=== PATIENT | male | born 1945 | race Caucasian/White ===

== ENCOUNTER → 2019-02-08 00:01 | Outpatient (RCR) | payer MEDICARE, MEDICAID, SELFPAY | LOC: ONCMED 01-20 06:07 | PROVIDERS: Family Provider Internal Medicine; Visit Provider Specialist | DX: C79.51 Secondary malignant neoplasm of bone (principal); C61 Malignant neoplasm of prostate; C73 Malignant neoplasm of thyroid gland; M54.6 Pain in thoracic spine; G89.3 Neoplasm related pain (acute) (chronic); D72.819 Decreased white blood cell count, unspecified; D69.6 Thrombocytopenia, unspecified; R10.32 Left lower quadrant pain; E89.0 Postprocedural hypothyroidism; Z92.3 Personal history of irradiation; Z79.818 Long term (current) use of other agents affecting estrogen receptors and estrogen levels; Z79.899 Other long term (current) drug therapy; Z90.79 Acquired absence of other genital organ(s) ==

== ENCOUNTER 2019-02-24 06:16 | Outpatient (RCR) | payer MEDICARE, MEDICAID, SELFPAY ==
--- NOTE | 2019-02-16 08:55 | ONCRAD TMN_ITS ---
Radiation Oncology Weekly Treatment Management Patient: Charlie Jacobs MR#: [id number] : 1945> Age: 73> Sex: Male Dictated by: Dr. Durga Corral Date of Service: 02/15/2019 Referring Physician(s) : Daniel Monahan Primary Diagnosis: C79.51 - Secondary malignant neoplasm of bone, Diagnosed 06/02/2018 (Active) C61 - Malignant neoplasm of prostate, Diagnosed 05/13/2006 (Active) Radiotherapy to date: Course: T10 Spine, Treatment Site: T10 Spine, Ref. ID: [id number] Spine, Energy: 15X/6X, Dose/Fx (cGy): 300, #Fx: 8 / 10, Dose Correction (cGy): 0, Total Dose (cGy): 2,400, Start Date: 02/03/2019, Elapsed Days: 12 Current Complaints/Interval History: Constitutional Complains of lack of appetite, mild fatigue and weight loss of 7.5 lbs. since last OTV on 02/08/19. Denies odynophagia, dysphagia, fever and night sweats. Respiratory Complains of cough which is chronic related to COPD. Musculoskeletal The pain in his back has resolved Current Medications: Advair Diskus, albuterol Sulfate, alfuzosin HCl ER, aspirin, atorvastatin Calcium, bicalutamide, bicalutamide, bolsom, cetirizine HCl, cyclobenzaprine HCl, esomeprazole Magnesium, hYDROcodone-Acetaminophen, ipratropium-Albuterol, ketoconazole, levothyroxine Sodium, lisinopril, metFORMIN HCl, metoprolol Succinate ER, montelukast Sodium, nitroglycerin, ondansetron, proAir HFA, probiotic Digestive Support, xgeva, zetia, zoladex. Allergies: Vancomycin HCl. Vital Signs: Performed on 02/15/2019 2:08 PM BMI - 26.123 kg/m2 (high), Height - 75.00 in, Weight - 209.0 lbs, Temperature - 98.2 f, Pulse - 78, Respiration - 20, O2 Sat - 97 %, Pain - 0 and BP - 139/ 89 mm(hg). Physical Exam: Appears stable, no skin erythema or desquamation. Performance Status: 2 - Ambulatory/capable of all self-care, unable to perform any work activities. Up and about more than 50% of waking hours. (ECOG) Lab: Test performed on 09/21/2018 8:20 AM Potassium - 5.3 mmol/l (high), Glucose - 142 mg/dl (high), Calcium - 8.5 mg/dl (low), Test performed on 01/20/2019 10:10 AM WBC - 1.8 10 3/ul (low), RBC - 3.99 10 6/ul (low), HCT - 37.4 % (low), MPV - 11.6 fl (high), Neutrophils - 0.9 10 3/ul (low), Lymphocytes - 0.5 10 3/ul (low) and PSA - 28.80 ng/ml (high). Imaging: No new diagnostic imaging was performed since the last weekly treatment visit. All radiation therapy related imaging (including but not limited to kV generated images) was reviewed. Appropriate changes, if any, were made to assure accurate target localization. Impression/Plan: Tolerating treatment well with good response ??? back pain resolved. Continue treatment as planned. CPT: 05935 Signed by: Dr. Durga Corral>02/16/2019 8:55:08 AM <<Signature on File>>
[2019-02-24] MEDS: denosumab 120 mg SDV SUBCUT (08:30)
== END 2019-03-11 23:59 | disposition home or self-care (01) ==
LOC: ONCMED 06:16
PROVIDERS: Family Provider Internal Medicine; PCP Internal Medicine; Visit Provider Internal Medicine Hematology & Oncology
DX: Z51.0 Encounter for antineoplastic radiation therapy (principal); C79.51 Secondary malignant neoplasm of bone; C61 Malignant neoplasm of prostate; Z79.899 Other long term (current) drug therapy; J44.9 Chronic obstructive pulmonary disease, unspecified; Z79.891 Long term (current) use of opiate analgesic; Z79.818 Long term (current) use of other agents affecting estrogen receptors and estrogen levels
CPT/HCPCS: 77336; 77387; 77412; 77427; 96372; G6002; J0897

== ENCOUNTER 2019-04-06 05:40 | Outpatient (RCR) | payer MEDICARE, MEDICAID, SELFPAY ==
[2019-03-16 09:42] LABS: Basophils % 0.6 %; Eosinophils # 0.1 10^3/uL (0.0-0.8); Hematocrit 37.5 % (42.0-52.0); Hemoglobin 12.5 g/dL (11.7-16.6); Lymphocytes # 0.3 10^3/uL (0.8-4.8); Lymphocytes % 17.7 %; Mean Corpuscular HGB Conc 33.3 g/dL (30.0-36.0); Mean Corpuscular Hemoglobin 31.6 pg (28.0-34.0); Mean Corpuscular Volume 94.7 fL (80-94); Mean Platelet Volume 10.3 fL (7.4-10.4); Monocytes # 0.3 10^3/uL (0.2-0.9); Monocytes % 17.7 %; Neutrophils % 60.4 %; Nucleated Red Blood Cells % 0 %; Platelet Count 124 10^3/cmm (130-400); Red Blood Count 3.96 10^6/uL (4.1-5.3); Red Cell Distribution Width 12.9 % (12.1-15.1); White Blood Count 1.6 10^3/uL (4.0-10.0)
[2019-03-16 10:19] LABS: Alanine Aminotransferase 13 U/L (0-41); Albumin Level 3.8 g/dL (3.5-5.2); Alkaline Phosphatase 75 IU/L (40-130); Anion Gap 12.3 (5-19); Aspartate Amino Transferase 15 U/L (0-40); Blood Urea Nitrogen 12 mg/dL (8-23); Calcium 9.2 mg/dL (8.5-10.5); Carbon Dioxide 28 mmol/L (22-29); Chloride 103 mmol/L (98-107); Free T4 Free Thyroxine 2.38 ng/dL (0.82-1.77); Globulin 3.6 g/dL (1.3-4.6); Glucose 106 mg/dL (65-115); Potassium 4.3 mmol/L (3.5-5.1); Sodium 139 mmol/L (136-145); Thyroid Stimulating Hormone 0.01 uIU/mL (0.27-4.20); Total Bilirubin 0.5 mg/dL (0.15-1.2); Total Protein 7.4 g/dL (6.6-8.7)
[2019-03-22 09:28] LABS: Thyroglobulin Level 0.5 ng/mL
[2019-03-25 09:33] LABS: Prostate Specific Antigen 44.14 ng/mL (0-4)
[2019-03-25] MEDS: lidocaine 1% INJ 20 mL INJECTION (11:28)
[2019-03-25] MEDS: goserelin acetate 10.8 mg Implant IM (11:39)
[2019-03-25] MEDS: denosumab 120 mg SDV SUBCUT (11:41)
--- NOTE | 2019-03-25 13:17 | ONC FU_ITS ---
Dr. Monahan follow up note Patient: Charlie Jacobs Unit #: [id number]: 1945 Dicatated By: Daniel Monahan M.D.Date of Visit:Mar 25, 2019 Onc Med Follow-up/Prog Note History of Present Illness: Mr. 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 At that time, his PSA was 7.1 and left sided nodule biopsies showed 6 out of 12 cores positive for 3+3/3+4 [employer] with 20-60% involvement. He received external beam radiation therapy which he completed in March 2007. Follow-up PSA level showed good response but start increasing and peak prior to initiation of hormonal therapy was 6.1, patient underwent rebiopsy on 09/14/2009 which showed suspicious pathology but not diagnostic. Mr Jacobs was started on LHRH agonist in December 2009 with 2 weeks of Casodex. He had excellent response. PSA was undetectable till January 2012 thereafter slow rise e.g. 0.27 on 08/05/2012 and 2 in May 2013, 7 in November 2013 and 8.4 in March 2015. Bicalutamide was added. In September 2015 and later stopped after increasing PSA again. In April 2017 bilateral scrotal orchiectomy was done. But PSA continued to rise in January 2018 was around 19 and in April 2018,gone up to 39.58. At that time, he started on Casodex 50 mg by mouth daily and CT scan of abdomen pelvis was done on 04/25/2018 which showed no pelvic lymphadenopathy but nonspecific multifocal osseous sclerotic foci; descending sigmoid colon diverticulosis with the descending sigmoid colon junction short segment diverticulitis patient was treated with antibiotics. Zoladex 10.8 mg was started on 06/01/2018 In the meantime, patient developed mass in his right neck and further investigation led to the diagnosis of thyroid cancer patient underwent thyroidectomy with lymph node dissection as per patient cancer was involving lymph nodes s/p radioactive iodine treatment in early June in [facility]. Mr. Jacobs was seen in the emergency room on 09/07/2018 for low back pain. He apparently been having back pain for 2 weeks. It was described as intermittent dull and sharp pain sometimes radiating to the left hip. It has gotten progressively worse. The pain medication was only partly relieving it. He did have a CT of the lumbar spine on 09/07/2018. It showed progressive sclerotic metastatic disease along the posterior margin of the right L1 vertebral body, the superior endplates of L3 and L4, left L3 pedestal, sclerotic focus involving the right anterior aspect of the L5 body and sclerotic focus along the lateral margin of the right iliac bone. He was referred to Dr. Corral for consideration of palliative radiation therapy. Dr. Corral did see him the same day on 09/07/2018. And did recommend palliative radiation to the lower back to control the metastatic disease in relieve pain. He was also started on Decadron 4 mg every 6 hours for 7 days in the emergency room on 09/07/2018. Received radiation therapy to spine from 09/13/2018 through 10/01/2018 and to T10 spine from 02/03/2019 through 02/17/2019. tolerating Zoladex/Casodex/Xgeva llMRI scan of spine done on 01/24/2019 showed blastic metastatic disease involving left seventh rib origin and left T10 pedicle, lamina and transverse process correlating with abnormal activity seen on bone scan from 06/01/2018 Small vertebral body lesion suspicious for metastatic disease at T1 and T9. The T9 lesion increased in size. Posterior disc bulging within annular fissure at T10-T11. MRI lumbar spine showed metastatic disease involving multiple lumbar vertebra and multiple level disc bulging and facet joint and ligamentum flavum hypertrophy resulting in the mild central stenosis at L2-L3. And moderate stenosis at L3-L4 and L4-and 5. Encroachment of respective bilateral L3, L4 and L5 lateral recess Mild hypertrophic facet joint encroachments of right L3 and right L4 neural foramina. Came for follow-up, feeling much better today, more energetic, no nausea or vomiting no fever no chills but still has some insomnia and anxiety and restlessness. No new bony pains. Occasionally hot flashes otherwise tolerating Zoladex/Casodex/Xgeva well. Medications: Advair Diskus 1 Puff(s) (of 100-50 mcg/dose) Aerosol Powder, Breath Activated Inhalation b.i.d. PRN, Albuterol Sulfate 1 puff(s) (of (2.5 mg/3ml) 0.083%) Nebulization solution Inhalation four times a day, Alfuzosin HCl ER 1 Tablet (of 10 mg) Tablet SR 24 HR Oral at bedtime, Aspirin 1 Tablet (of 81 mg) Oral daily, Atorvastatin Calcium 1 Tablet (of 80 mg) Oral daily, Belsomra 1 Tablet (of 20 mg) Oral at bedtime PRN, Bicalutamide 1 Tablet (of 50 mg) Oral daily, bolsom 1 Capsule (of 15 mg) Oral daily, Cetirizine HCl 1 Tablet (of 10 mg) Oral daily, Cyclobenzaprine HCl 0.5 - 1 Tablet (of 10 mg) Oral t.i.d. PRN, Esomeprazole Magnesium 1 Capsule (of 40 mg) Capsule Delayed Release Oral daily, Ipratropium-Albuterol 1 puff(s) (of 0.5-2.5 (3) mg/3ml) Solution Inhalation q 4 hours PRN, Ketoconazole (2 %) Cream Topical b.i.d., Levothyroxine Sodium 1 Tablet (of 200 mcg) Tablet Oral daily, metFORMIN HCl 1 Tablet (of 1000 mg) Oral daily, Metoprolol Succinate ER 1 Tablet (of 25 mg) Tablet SR 24 HR Oral daily, Montelukast Sodium 1 Tablet (of 10 mg) Oral daily, Nitroglycerin 1 Tablet (of 0.4 mg) Tablet, sublingual Sublingual PRN, Ondansetron 1 (4 mg) Tablet Dispersable Oral q 8 hours PRN, ProAir HFA 1 puff(s) (of 108 (90 base) mcg/act) Aerosol, solution Inhalation q 4 hours PRN, Probiotic Digestive Support 1 Capsule Oral daily, Xgeva 1 Subcutaneous q 30 days, Zetia 1 Tablet (of 10 mg) Oral daily, Zoladex Subcutaneous q 12 weeks Allergies: Vancomycin HCl Review of Systems: Constitutional - Appetite and weight are stable. No fever, chills, hot flashes or night sweats. Energy level is fair, ENMT - Positive for sinus congestion. No mouth sores. No sore throat or difficulty swallowing, Hematologic/Lymphatic - No abnormal bruising or bleeding, Respiratory - Positive for shortness of breath. No cough. No pleuritic pain or hemoptysis, Cardiovascular - No angina pain. No palpitations, Gastrointestinal - Pt denies nausea. No heartburn or acid reflux. No diarrhea. No constipation. No blood in the stool or black stools, Musculoskeletal - Pt reports chronic significant back pain, Neurologic - No headache. Positive for dizziness. Pt reports numbness in feet, Psychiatric - No anxiety or depression. No insomnia. Vital Signs: Performed on Mar 25, 2019 09:57 Height - 75.00 in Weight - 210.2 lbs (HIGH) BSA - 2.24 sq.m BMI - 26.27 Temperature - 97.5 F (LOW) Pulse - 97 /min Respiration - 18 /min BP - 128/85 mm(hg) O2 Sat - 96 % Pain - 0 Performance Status: 0 - Fully active, able to carry on all predisease activities without restrictions. (ECOG) Physical Examination: ENMT - No oral exudates, ulcers, masses, thrush or mucositis. Oropharynx clear. Tongue normal, Respiratory - Lungs are clear to auscultation without rhonchi or wheezing, Cardiovascular - Regular rate and rhythm of heart, Abdomen - Non-tender, non-distended, Good bowel sounds. No guarding or rebound tenderness. No pulsatile masses, Extremities - no edema. Lab/Imaging: Test performed on Mar 16, 2019 09:25 Sodium 139 mmol/L TSH 0.01 uIU/mL Potassium 4.3 mmol/L T4, Free 2.38 ng/dL Chloride 103 mmol/L CO2 28 mmol/L Anion Gap 12.3 BUN 12 mg/dL Creatinine 0.8 mg/dL Cr Clearance (Est) 111.3300 mL/min Glucose 106 mg/dL Calcium 9.2 mg/dL Protein, Total 7.4 g/dL Albumin 3.8 g/dL Globulin 3.6 g/dL Bilirubin, Total 0.5 mg/dL ALT (SGPT) 13 U/L AST (SGOT) 15 U/L Alkaline Phosphatase 75 IU/L WBC 1.6 10 3/uL RBC 3.96 10 6/uL HGB 12.5 g/dL HCT 37.5 % MCV 94.7 fL MCH 31.6 pg MCHC 33.3 g/dL RDW 12.9 % Platelet Count 124 10 3/cmm MPV 10.3 fL Neutrophils 1.0 10 3/uL Lymphocytes 0.3 10 3/uL Monocytes 0.3 10 3/uL Eosinophils 0.1 10 3/uL Basophils 0.0 10 3/uL Neutrophil % 60.4 % Lymphocyte % 17.7 % Monocyte % 17.7 % Eosinophil % 3.0 % Basophils % 0.6 % Test performed on Jan 20, 2019 10:10 CBC Slide Review SLIDE REVIEW PERFORM SLIDE REVIEW AGREES WITH AUTOMATED RESULTS ST PSA 28.80 ng/mL Impression: Biochemical recurrence, CT scan of abdomen pelvis done on 04/25/2018 showed sclerotic lesions in the pelvic bones no pelvic lymphadenopathy or abnormal mass. History of prostrate cancer initially diagnosed in 2006 at that time his PSA was 7.1 and left-sided nodule biopsy showed 6 out of 12 cores positive for 3+3/3+ for [employer] with 20-60% involvement status post external beam radiation therapy completed in March 2007 Follow-up PSA showed excellent response till 2009 when PSA started going up underwent rebiopsy of prostate on 09/14/2009 which was nondiagnostic but suspicious for malignancy. Started on LHRH agonist in December 2009 2 weeks of Casodex, excellent response PSA become undetectable still January 2012 with slow rise thereafter e.g. 0.27 on 08/05/2012, 2 in May 2013, 7 in November 2013, 8.4 in March 2015 bicalutamide was admitted in September 2015 later stopped after PSA continued to go up, subsequently underwent bilateral scrotal orchiectomy in April 2017 PSA continued to rise around 20 on 01/28/2018 for the gone up to 39.58 in April 2018, at that time Casodex 50 mg by mouth was started and patient was referred to medical oncology clinic Zoladex 10.8 mg every 3 months started on 06/01/2018 Bone scan done on 06/01/2018 showed L3 and L4 vertebral body increased activity corresponding to the prior CT sclerosis. Left T10 and T7 lateral vertebral body or facet increase activity you from prior exam done in December 2006,. New right lateral posterior ninth rib focus of increased activity. did see Mr. Jacobs in August 2018 at which time Mr. Jacobs was having moderate to severe distress with progressive lower back pain. He was sent to the emergency room for evaluation for possible metastatic disease or prolapse/collapsed vertebra. His PSA at that time was 34.24 and his testosterone was 19.9. New right sixth and eighth anterior lateral rib focus of increased activity. Recently diagnosed with thyroid cancer status post thyroidectomy with lymph node dissection now radioactive iodine therapy was under consideration as of June 2018. Mr. Jacobs was seen in the emergency room on 09/07/2018 for low back pain. He apparently been having back pain for 2 weeks. It was described as intermittent dull and sharp pain sometimes radiating to the left hip. It has gotten progressively worse. The pain medication was only partly relieving it. He did have a CT of the lumbar spine on 09/07/2018. It showed progressive sclerotic metastatic disease along the posterior margin of the right L1 vertebral body, the superior endplates of L3 and L4, left L3 pedestal, sclerotic focus involving the right anterior aspect of the L5 body and sclerotic focus along the lateral margin of the right iliac bone. He was referred to Dr. Corral for consideration of palliative radiation therapy. Dr. Corral did see him the same day on 09/07/2018. And did recommend palliative radiation to the lower back to control the metastatic disease in relieve pain. He was also started on Decadron 4 mg every 6 hours for 7 days in the emergency room on 09/07/2018. s/p radiation for pain relief due to metastatic bone disease. He started radiation on 09/13/2018. He states his pain is resolved Plan: Discussed with patient regarding his labs from 03/16/2019 white blood count 1.6 hemoglobin 12.5 hematocrit 37.5 platelets 124,000 ANC 1000 CMP within normal limit , TSH 0.01 T4 2 0.38 and PSA 44.14 compared to 28.80 on 01/20/2019 Clinically, patient doing well with no new signs symptoms except restlessness, insomnia and he is on Synthroid 200 ???g by mouth daily for history of thyroid cancer, his follow-up lab shows extremely suppressed TSH, case was discussed with his endocrinology in [place] their plan was to keep TSH super suppressed for posterior as patient is on high-dose Synthroid since February 2018 now goal is to keep TSH between 0.4 to 0.1 His endocrinology will call and adjust the dose to keep TSH between 0.4-0.1. As far as prostrate cancer is concern, he is on Zoladex/Casodex and his PSA is fluctuating, now gone up to 44.14 compared to 28.80 in January 2019 and it was 37.10 on 12/21/2018. At this point we will consider adding Zytiga/prednisone and then monitor his PSA and disease status. Patient will take Zytiga 250 mg every morning with low-fat breakfast and prednisone 5 mg by mouth twice a day. In the meantime we'll proceed with the 3 monthly dose of Zoladex and monthly Xgeva. Patient return to clinic in 1 week with CBC CMP and PSA. All the side effect possible benefits associated with Zytiga/prednisone discussed in detail further teaching will be done by chemotherapy nurse. Moderate leukopenia/neutropenia etiology unclear could be underlying myelodysplasia or radioactive iodine toxicity or thyroid supplement. We will continue to monitor hopefully with the dose reduction of thyroid supplement white blood count may improve if not we'll consider bone marrow evaluation. Signed By: Daniel oMnahan M.D. <<Signature on File>>
[2019-04-06 10:31] LABS: Basophils % 0.4 %; Eosinophils # 0.1 10^3/uL (0.0-0.8); Hematocrit 39.3 % (42.0-52.0); Lymphocytes # 0.4 10^3/uL (0.8-4.8); Lymphocytes % 16.5 %; Mean Corpuscular HGB Conc 33.1 g/dL (30.0-36.0); Mean Corpuscular Hemoglobin 30.8 pg (28.0-34.0); Mean Corpuscular Volume 93.1 fL (80-94); Mean Platelet Volume 10.6 fL (7.4-10.4); Monocytes # 0.4 10^3/uL (0.2-0.9); Monocytes % 15.4 %; Neutrophils # 1.7 10^3/uL (1.8-7.7); Neutrophils % 65.3 %; Nucleated Red Blood Cells % 0 %; Platelet Count 148 10^3/cmm (130-400); Red Blood Count 4.22 10^6/uL (4.1-5.3); Red Cell Distribution Width 13.8 % (12.1-15.1); White Blood Count 2.5 10^3/uL (4.0-10.0)
[2019-04-06 10:59] LABS: Prostate Specific Antigen 54.97 ng/mL (0-4)
[2019-04-06 11:11] LABS: Alanine Aminotransferase 21 U/L (0-41); Albumin Level 4.2 g/dL (3.5-5.2); Alkaline Phosphatase 79 IU/L (40-130); Anion Gap 14.9 (5-19); Aspartate Amino Transferase 15 U/L (0-40); Blood Urea Nitrogen 15 mg/dL (8-23); Calcium 9.5 mg/dL (8.5-10.5); Carbon Dioxide 27 mmol/L (22-29); Chloride 104 mmol/L (98-107); Globulin 3.2 g/dL (1.3-4.6); Glucose 111 mg/dL (65-115); Potassium 3.9 mmol/L (3.5-5.1); Sodium 142 mmol/L (136-145); Total Bilirubin 0.4 mg/dL (0.15-1.2); Total Protein 7.4 g/dL (6.6-8.7)
--- NOTE | 2019-04-10 19:58 | ONC FU_ITS ---
[facility]uel[facility] Patient Note Patient: Charlie Jacobs Unit #: [id number]: 1945 Dictated By: Rico IniguezDate of Visit: Apr 06, 2019 Onc MED Follow-Up/Prog Note Chief Complaint: Prostate cancer History of Present Illness: Mr. Jacobs is a 73-year-old gentleman with history of prostate cancer initially diagnosed in December 2006. At that time, his PSA was 7.1 and left sided nodule biopsies showed 6 out of 12 cores positive for 3+3/3+4 POOL LIFEGUARD with 20-60% involvement. He received external beam radiation therapy which he completed in March 2007. Follow-up PSA level showed good response but start increasing and peak prior to initiation of hormonal therapy was 6.1, patient underwent rebiopsy on 09/14/2009 which showed suspicious pathology but not diagnostic. Mr Jacobs was started on LHRH agonist in December 2009 with 2 weeks of Casodex. He had excellent response. PSA was undetectable till January 2012 thereafter slow rise e.g. 0.27 on 08/05/2012 and 2 in May 2013, 7 in November 2013 and 8.4 in March 2015. Bicalutamide was added. In September 2015 and later stopped after increasing PSA again. In April 2017 bilateral scrotal orchiectomy was done. His PSA continued to rise and in January 2018 was around 19 and in April 2018 it had gone up to 39.58. At that time, he started on Casodex 50 mg by mouth daily and CT scan of abdomen pelvis was done on 04/25/2018 which showed no pelvic lymphadenopathy but nonspecific multifocal osseous sclerotic foci; descending sigmoid colon diverticulosis with the descending sigmoid colon junction short segment diverticulitis patient was treated with antibiotics. Zoladex 10.8 mg was started on 06/01/2018. In the meantime, Mr Jacobs developed a mass in the right side of his neck and further investigation led to the diagnosis of thyroid cancer. He underwent thyroidectomy with lymph node dissection- as per patient, cancer was involving lymph nodes. s/p radioactive iodine treatment in early June in [facility]. Mr. Jacobs was seen in the emergency room on 09/07/2018 for low back pain. He apparently had been having back pain for 2 weeks. It was described as intermittent dull and sharp pain sometimes radiating to the left hip. It has gotten progressively worse. The pain medication was only partly relieving it. He did have a CT of the lumbar spine on 09/07/2018. It showed progressive sclerotic metastatic disease along the posterior margin of the right L1 vertebral body, the superior endplates of L3 and L4, left L3 pedestal, sclerotic focus involving the right anterior aspect of the L5 body and sclerotic focus along the lateral margin of the right iliac bone. He was referred to Dr. Corral for consideration of palliative radiation therapy. Dr. Corral did see him the same day on 09/07/2018 and did recommend palliative radiation to the lower back to control the metastatic disease and relieve pain. He was also started on Decadron 4 mg every 6 hours for 7 days in the emergency room on 09/07/2018. Mr Jacobs received radiation therapy to the spine He received 3000 cGy total dose to the SPINE GTV30 starting 09/13/2018 and ending 10/01/2018. He then received treatment to T10 spine, ref ID: [id number] Spine to a total dose of 3000 cGy starting 02/03/2019 and ending on 02/17/2019. He has had an excellent response to the radiation with his back pain resolved. He has been on denosumab since June 10, 2018 per our chart. He continues with Zoladex with his last dose being given on March 25, 2019. He also received denosumab at that time as well. Mr. Jacobs is here today to begin further treatment for his disease progression. He has had significant elevation of his PSA on March 25, 2019 it was 44. On January 20, [address] Monahan has recommended that he pursue treatment with Zytiga/prednisone and continue the every 3-month dose of Zoladex and monthly denosumab. He states overall he is doing well. He has no new complaints. He denies any new pain. He has been eating well. He denies any fever or chills. He denies mouth sores, sore throat or difficulty swallowing. He states his bowels and bladder are normal for him. He denies any symptoms or signs of being sick. He is relatively active around the house. His ECOG is 1. Past Medical History: Chronic obstructive pulmonary disease Diverticulitis Hypertension Thyroid cancer Type II diabetes Past Surgical History: Colonoscopy Left knee replacement Mass removed from thyroid Partial thyroid removal Right knee replacememt Testicules removal Allergies: Vancomycin HCl Medications: Advair Diskus 1 Puff(s) (of 100-50 mcg/dose) Aerosol Powder, Breath Activated Inhalation b.i.d. PRN Albuterol Sulfate 1 puff(s) (of (2.5 mg/3ml) 0.083%) Nebulization solution Inhalation four times a day Alfuzosin HCl ER 1 Tablet (of 10 mg) Tablet SR 24 HR Oral at bedtime Aspirin 1 Tablet (of 81 mg) Oral daily Atorvastatin Calcium 1 Tablet (of 80 mg) Oral daily Belsomra 1 Tablet (of 20 mg) Oral at bedtime PRN Bicalutamide 1 Tablet (of 50 mg) Oral daily bolsom 1 Capsule (of 15 mg) Oral daily Cetirizine HCl 1 Tablet (of 10 mg) Oral daily Cyclobenzaprine HCl 0.5 - 1 Tablet (of 10 mg) Oral t.i.d. PRN Esomeprazole Magnesium 1 Capsule (of 40 mg) Capsule Delayed Release Oral daily Ipratropium-Albuterol 1 puff(s) (of 0.5-2.5 (3) mg/3ml) Solution Inhalation q 4 hours PRN Ketoconazole (2 %) Cream Topical b.i.d. Levothyroxine Sodium 1 Tablet (of 200 mcg) Tablet Oral daily metFORMIN HCl 1 Tablet (of 1000 mg) Oral daily Metoprolol Succinate ER 1 Tablet (of 25 mg) Tablet SR 24 HR Oral daily Montelukast Sodium 1 Tablet (of 10 mg) Oral daily Nitroglycerin 1 Tablet (of 0.4 mg) Tablet, sublingual Sublingual PRN Ondansetron 1 (4 mg) Tablet Dispersable Oral q 8 hours PRN ProAir HFA 1 puff(s) (of 108 (90 base) mcg/act) Aerosol, solution Inhalation q 4 hours PRN Probiotic Digestive Support 1 Capsule Oral daily Xgeva 1 Subcutaneous q 30 days Zetia 1 Tablet (of 10 mg) Oral daily Zoladex Subcutaneous q 12 weeks Family History: Mr. Jacobs's mother at age 90. Mr. Jacobs's father at age 60: ruptured hernia. Mother of cancer but does not know what she had. His sister has cancer now but does not know what kind. Social History: Mr. Jacobs is and he is retired. He is an occasional smoker who has smoked 0.5 packs/day for 67 years. pt states he is trying to quit smoking. Review Of Symptoms: Constitutional Denies fevers, chills, night sweats, excessive fatigue or weight loss. Poor appetite, headaches at hs. Allergic/Immunologic No reactions. Eyes Denies significant visual changes. No diplopia. No amaurosis. ENMT Denies changes in hearing, sore throat, mouth sores, difficulty or changes in swallowing ability, and/or sinus drainage. Hematologic/Lymphatic Denies easy bruising or bleeding. The patient denies any tender or palpable lymph nodes. Respiratory Denies dyspnea on exertion, chest pain, cough or hemoptysis. Denies orthopnea. Cardiovascular Denies anginal chest pain, palpitations or orthopnea. Gastrointestinal Denies nausea, vomiting, diarrhea, GI bleeding, or constipation. Denies change in bowel habits and/or stool color, no heartburn or early satiety. Genitourinary (M) Denies hematuria, dysuria, increased frequency, urgency, hesitancy or incontinence. Musculoskeletal Denies worsening back pain-actually better per patient. Denies swelling or redness. No decreased range of motion. Integumentary Denies chronic rashes, inflammation, ulcerations or skin changes. Neurologic Denies blurred vision, and no areas of focal weakness or numbness. Normal gait. No sensory problems. Psychiatric Denies insomnia, depression, margaret or mood swings. Vital Signs: Performed on Apr 06, 2019 09:35 Height - 75.00 in Weight - 209.0 lbs (LOW) BSA - 2.24 sq.m BMI - 26.12 Temperature - 98.1 F (LOW) Pulse - 62 /min Respiration - 20 /min BP - 151/89 mm(hg) (HIGH) O2 Sat - 96 % Pain - 0,1 - No physically strenuous activity, but ambulatory and able to carry out light or sedentary work (e.g. office work, light house work). (ECOG) Physical Examination: Constitutional Alert, oriented, no acute distress. Skin pink, warm and dry. Head Normocephalic; atraumatic. Eyes Conjunctivae and sclerae are clear and without icterus. Pupils are reactive and equal. ENMT No oral exudates, ulcers, masses, thrush or mucositis. Oropharynx clear. Tongue normal. Neck Supple without masses or thyromegaly. No jugular venous distension. Hematologic/Lymphatic No petechiae or purpura. No tender or palpable lymph nodes in the cervical or supraclavicular areas. Respiratory Lungs are clear to auscultation without rhonchi or wheezing. Cardiovascular Regular rate and rhythm of heart without murmurs,clicks, gallops or rubs. Abdomen Non-tender, non-distended, no masses, ascites. Good bowel sounds noted in all quads. No guarding or rebound tenderness. No pulsatile masses. Back/Spine Non-tender to palpation. Extremities No visible deformities, no cyanosis, clubbing or edema. Musculoskeletal No tenderness or swelling, normal range of motion without obvious weakness. Integumentary No rashes or lesions. Neurologic No sensory or motor deficits, normal cerebellar function, normal gait. Psychiatric Alert and oriented times three. Coherent speech. Verbalizes understanding of our discussions today. Laboratory:Test performed on Apr 06, 2019 10:18 Sodium 142 mmol/L Potassium 3.9 mmol/L Chloride 104 mmol/L CO2 27 mmol/L Anion Gap 14.9 BUN 15 mg/dL Creatinine 0.8 mg/dL Cr Clearance (Est) 108.6300 mL/min Glucose 111 mg/dL Calcium 9.5 mg/dL Protein, Total 7.4 g/dL Albumin 4.2 g/dL Globulin 3.2 g/dL Bilirubin, Total 0.4 mg/dL ALT (SGPT) 21 U/L AST (SGOT) 15 U/L Alkaline Phosphatase 79 IU/L WBC 2.5 10 3/uL RBC 4.22 10 6/uL HGB 13.0 g/dL HCT 39.3 % MCV 93.1 fL MCH 30.8 pg MCHC 33.1 g/dL RDW 13.8 % Platelet Count 148 10 3/cmm MPV 10.6 fL Neutrophils 1.7 10 3/uL Lymphocytes 0.4 10 3/uL Monocytes 0.4 10 3/uL Eosinophils 0.1 10 3/uL Basophils 0.0 10 3/uL Neutrophil % 65.3 % Lymphocyte % 16.5 % Monocyte % 15.4 % Eosinophil % 2.0 % Basophils % 0.4 % PSA 54.97 ng/mL Test performed on Mar 16, 2019 09:25 TSH 0.01 uIU/mL T4, Free 2.38 ng/dL Impression: Biochemical recurrence, CT scan of abdomen pelvis done on 04/25/2018 showed sclerotic lesions in the pelvic bones no pelvic lymphadenopathy or abnormal mass. History of prostate cancer initially diagnosed in 2006 at that time his PSA was 7.1 and left-sided nodule biopsy showed 6 out of 12 cores positive for 3+3/3+ for POOL LIFEGUARD with 20-60% involvement status post external beam radiation therapy completed in March 2007 Follow-up PSA showed excellent response till 2009 when PSA started going up. He underwent rebiopsy of prostate on 09/14/2009 which was nondiagnostic but suspicious for malignancy. Started on LHRH agonist in December 2009 2 weeks of Casodex, excellent response PSA become undetectable still January 2012 with slow rise thereafter e.g. 0.27 on 08/05/2012, 2 in May 2013, 7 in November 2013, 8.4 in March 2015 bicalutamide was admitted in September 2015 later stopped after PSA continued to go up, subsequently underwent bilateral scrotal orchiectomy in April 2017 PSA continued to rise around 20 on 01/28/2018 for the gone up to 39.58 in April 2018, at that time Casodex 50 mg by mouth was started and patient was referred to medical oncology clinic Zoladex 10.8 mg every 3 months started on 06/01/2018 Bone scan done on 06/01/2018 showed L3 and L4 vertebral body increased activity corresponding to the prior CT sclerosis. Left T10 and T7 lateral vertebral body or facet increase activity you from prior exam done in December 2006,. New right lateral posterior ninth rib focus of increased activity. did see Mr. Jacobs in August 2018 at which time Mr. Jacobs was having moderate to severe distress with progressive lower back pain. He was sent to the emergency room for evaluation for possible metastatic disease or prolapse/collapsed vertebra. His PSA at that time was 34.24 and his testosterone was 19.9. New right sixth and eighth anterior lateral rib focus of increased activity. Recently diagnosed with thyroid cancer status post thyroidectomy with lymph node dissection now radioactive iodine therapy was under consideration as of June 2018. Mr. Jacobs was seen in the emergency room on 09/07/2018 for low back pain. He apparently been having back pain for 2 weeks. It was described as intermittent dull and sharp pain sometimes radiating to the left hip. It has gotten progressively worse. The pain medication was only partly relieving it. He did have a CT of the lumbar spine on 09/07/2018. It showed progressive sclerotic metastatic disease along the posterior margin of the right L1 vertebral body, the superior endplates of L3 and L4, left L3 pedestal, sclerotic focus involving the right anterior aspect of the L5 body and sclerotic focus along the lateral margin of the right iliac bone. He was referred to Dr. Corral for consideration of palliative radiation therapy. Dr. Corral did see him the same day on 09/07/2018. And did recommend palliative radiation to the lower back to control the metastatic disease in relieve pain. He was also started on Decadron 4 mg every 6 hours for 7 days in the emergency room on 09/07/2018. Mr Jacobs received radiation therapy to the spine He received 3000 cGy total dose to the SPINE GTV30 starting 09/13/2018 and ending 10/01/2018. He then received treatment to T10 spine, ref ID: T10 Spine to a total dose of 3000 cGy starting 02/03/2019 and ending on 02/17/2019. He has had an excellent response to the radiation with his back pain resolved. He has been on denosumab since June 10, 2018 per our chart. He continues with Zoladex with his last dose being given on March 25, 2019. He also received denosumab at that time as well. Mr. Jacobs is here today to begin further treatment for his disease progression. He has had significant elevation of his PSA on March 25, 2019 it was 44. On January 20, [address] Monahan has recommended that he pursue treatment with Zytiga/prednisone and continue the every 3-month dose of Zoladex and monthly denosumab. Plan: 1. Proceed with Zytiga @ 250 mg daily and Prednisone 5 mg BID-he is starting on a dose reduction due to pre existing neutropenia. 2. Continue Zoladex 10.8 mg every 3 months-last given 03/25/2019. 3. Continue monthly denosumab for bone metastasis. Last given March 25, 2019. 4. His Synthroid dosing is currently 175 mcg daily. This is regulated by his dry mop maker in [place]. He reports that there are plans to keep the TSH between 0.4 and 1.0. HX: thyroid cancer. 5. I did request baseline labs for today to include a CBC, CMP and PSA. I have also requested CBC CMP on April 18 to be drawn with Dr. Knowles's labs. 6. We will plan to keep his scheduled appointment with Dr. Monahan on April 21 for his follow-up. His labs will to be drawn on April 18 as he is already scheduled to have labs per Dr. Knowles that day and he would not need to have 2 venipunctures within a couple of days. 7. Mr. Jacobs was advised to avoid grapefruit products in combination with the Zytiga. 8. The patient and family were informed of the treatment plan and specific drugs were discussed. We also discussed how the medication works and identified common side effects including hot flashes, elevated triglycerides, headache, dizziness, hypertension, urticaria, flushing, fatigue, nausea, diarrhea, constipation, joint/muscle pain, heartburn, palpitations, alopecia is reported at < 5%. We discussed that they certainly need to let us know before taking any antioxidants or herbal or further dietary supplements, as we are unsure of how these agents react with the treatment plan and we request that they avoid these products for now. They are informed that it is okay to take the multivitamins. They verbally state that they understand to take all medications as directed by the provider unless otherwise indicated. Instructions for oral care with baking soda and salt water rinses as well as a guide for use of [id number] medication were provided with the treatment plan. They were given specific drug information. They have no questions and verbalized understanding and are willing to proceed with treatment at this time. The majority of this visit was spent in face to face communication with this patient and/or his family in regards to plan of care, side effect identification and management. 9. Mr. Jacobs was instructed to contact us in the interim should questions or problems arise. Signed By: Rico Iniguez-NIKI, [facility] Monahan MD <<Signature on File>>
== END 2019-04-09 23:59 | disposition home or self-care (01) ==
LOC: ONCMED 05:40
PROVIDERS: Internal Medicine Hematology & Oncology; Family Provider Internal Medicine; PCP Internal Medicine; Visit Provider Nurse Practitioner
DX: C61 Malignant neoplasm of prostate (principal); C79.51 Secondary malignant neoplasm of bone; R97.21 Rising PSA following treatment for malignant neoplasm of prostate; E89.0 Postprocedural hypothyroidism; M51.24 Other intervertebral disc displacement, thoracic region; F43.20 Adjustment disorder, unspecified; D70.9 Neutropenia, unspecified; J44.9 Chronic obstructive pulmonary disease, unspecified; I10 Essential (primary) hypertension; E11.9 Type 2 diabetes mellitus without complications; F17.210 Nicotine dependence, cigarettes, uncomplicated; Z79.51 Long term (current) use of inhaled steroids; Z79.818 Long term (current) use of other agents affecting estrogen receptors and estrogen levels; Z79.899 Other long term (current) drug therapy; Z79.82 Long term (current) use of aspirin; Z79.84 Long term (current) use of oral hypoglycemic drugs; Z96.652 Presence of left artificial knee joint; Z85.850 Personal history of malignant neoplasm of thyroid; Z92.3 Personal history of irradiation; Z90.79 Acquired absence of other genital organ(s)
CPT/HCPCS: 36415; 80053; 84153; 84432; 84439; 84443; 85025; 86800; 96372; 96402; 99214; J0897; J2001; J9202

== ENCOUNTER 2019-04-09 15:17 | Emergency (ER) | payer MEDICARE, MEDICAID, SELFPAY ==
[2019-04-09] VITALS (7 sets, daily range): BP systolic 129–139; BP diastolic 80–95; PULSE 77–97; RESP 16–19; TEMP 37.1; O2SAT 94; BMI 26.2
--- NOTE | 2019-04-09 15:24 | ECG_ITS ---
Measurements Intervals [place] Rate: 72 P: 51 MN: 158 QRS: 57 QRSD: 82 T: 67 QT: 368 QTc: 404 SINUS RHYTHM WITH OCCASIONAL SUPRAVENTRICULAR PREMATURE COMPLEXES Compared to ECG 10/16/2018 11:06:47 No significant changes Electronically Signed On 04-09-2019 20:29:55 [employer] by Lucinda Galss M.D. [email or web address]
--- NOTE | 2019-04-09 15:56 | ED_ITS ---
Entered by Joan Hyatt, acting as scribe for Jacques Hurtado DO Apr 09, 2019 15:17 Documented by User: Jake Darling DO 04/09/19 20:59 HPI - General Adult General: Chief complaint: General Medical Stated complaint: high hr and bp Time Seen by Provider: 04/09/19 16:00 PFSH ED PFSH: Social History Smoking and tobacco status: current every day smoker cigarettes Packs smoked per day: 0.5 Alcohol intake: never Course Vital Signs: Vital signs: Vital Signs Temperature 98.7 F 04/09/19 15:50 Pulse Rate 80 04/09/19 19:45 Respiratory Rate 19 H 04/09/19 19:25 Blood Pressure 131/94 04/09/19 19:45 Pulse Oximetry 94 04/09/19 15:50 MDM - General Adult MDM Narrative: Medical decision making narrative: 74-year-old male with a history of myelodysplasia. He presents with belly discomfort and diarrhea. He has had recurrent diverticulitis. His white blood cell count is 2.6. Other labs are benign. Urinalysis is negative. His CT shows diverticulosis, but without diverticulitis. Since he has had ongoing diarrhea, he will be covered with Flagyl for possible C. difficile colitis, although he does not have colitis by CT. He lists an allergy to vancomycin, which is likely the IV form, but will prescribe Flagyl just in case. He has scheduled follow-up in 5 days per Lab Data: Labs: Lab Results 04/09/19 04/09/19 04/09/19 Range/Units 17:00 17:00 17:18 WBC 2.6 L (4.0-10.0) 10^3/ uL RBC 4.04 L (4.1-5.3) 10^6/u L Hgb 12.4 (11.7-16.6) g/dL Hct 37.0 L (42.0-52.0) % MCV 91.6 (80-94) fL MCH 30.7 (28.0-34.0) pg MCHC 33.5 (30.0-36.0) g/dL RDW 13.5 (12.1-15.1) % Plt Count 132 (130-400) 10^3/c mm MPV 10.5 H (7.4-10.4) fL Neut % (Auto) 62.8 % Lymph % (Auto) 17.4 % Coles % (Auto) 17.1 % Eos % (Auto) 1.9 % Baso % (Auto) 0.4 % Neut # (Auto) 1.6 L (1.8-7.7) 10^3/u L Lymph # (Auto) 0.5 L (0.8-4.8) 10^3/u L Coles # (Auto) 0.4 (0.2-0.9) 10^3/u L Eos # (Auto) 0.1 (0.0-0.8) 10^3/u L Baso # (Auto) 0.0 (0.0-0.1) 10^3/u L Nucleated RBC % (a uto) 0 % Nucleated RBCs # 0.0 /100WBC Sodium 140 (136-145) mmol/L Potassium 3.8 (3.5-5.1) mmol/L Chloride 102 (98-107) mmol/L Carbon Dioxide 27 (22-29) mmol/L Anion Gap 14.8 (5-19) BUN 13 (8-23) mg/dL Creatinine 0.8 (0.7-1.2) mg/dL Glucose 109 (65-115) mg/dL Calcium 9.2 (8.5-10.5) mg/dL Total Bilirubin 0.5 (0.15-1.2) mg/dL AST 14 (0-40) U/L ALT 19 (0-41) U/L Alkaline Phosphata se 70 (40-130) IU/L Total Protein 7.5 (6.6-8.7) g/dL Albumin 4.1 (3.5-5.2) g/dL Globulin 3.4 (1.3-4.6) g/dL Urine Color Yellow (Yellow) Urine Appearance Clear (CLEAR) Urine pH 5 (5-7) Ur Specific Gravit y 1.015 (1.005-1.030) Urine Protein Neg (Negative) Urine Glucose (UA) Norm (Normal) Urine Ketones Negative (Negative) Urine Blood Neg (Negative) Urine Nitrate Negative (Negative) Urine Bilirubin Neg (NEGATIVE) Urine Urobilinogen Norm (Negative) mg/dL Ur Leukocyte Karo ase Negative (Negative) Discharge Plan Discharge Patient Disposition: Home, Self-Care Clinical Impression: Diarrhea Qualifiers: Diarrhea type: unspecified type Qualified Code(s): R19.7 - Diarrhea, unspecified Condition: Stable Prescriptions: New Flagyl 500 mg tablet 500 mg PO Q8H 7 Days Qty: 21 RF: 0 No Action Zytiga 500 mg tablet 1,000 mg PO DAILY RF: 0 prednisone 5 mg tablet 5 mg PO DAILY RF: 0 levothyroxine 175 mcg capsule 175 mcg PO DAILY RF: 0 aspirin 81 mg tablet,delayed release (DR/EC) 81 mg PO DAILY RF: 0 bicalutamide 50 mg tablet 50 mg PO DAILY RF: 0 esomeprazole magnesium [Nexium] 40 mg capsule,delayed release(DR/EC) 40 mg PO DAILY RF: 0 metoprolol succinate 25 mg tablet extended release 24 hr 25 mg PO DAILY RF: 0 metformin 1,000 mg tablet 1,000 mg PO BID RF: 0 montelukast [Singulair] 10 mg tablet 10 mg PO DAILY RF: 0 All Day Allergy (cetirizine) 10 mg capsule 10 mg PO DAILY RF: 0 ezetimibe [Zetia] 10 mg tablet 10 mg PO DAILY RF: 0 atorvastatin 80 mg tablet 80 mg PO DAILY RF: 0 mirtazapine 7.5 mg tablet 15 mg PO DAILY RF: 0 hydrocodone-acetaminophen 10-325 mg tablet 1 tab PO QID PRN (Reason: Pain) RF: 0 cyclobenzaprine 10 mg tablet 10 mg PO TID RF: 0 nitroglycerin [Nitrostat] 0.4 mg tablet, sublingual 0.4 mg SUBLINGUAL Q5M PRN (Reason: Chest Pain) RF: 0 albuterol sulfate [ProAir HFA] 90 mcg/actuation HFA aerosol inhaler 2 puff INHALATION Q6H PRN (Reason: Shortness Of Breath) RF: 0 fluticasone propion-salmeterol [Advair Diskus] 500-50 mcg/dose blister with device 1 inh INHALATION Q12H RF: 0 ipratropium-albuterol 0.5 mg-3 mg(2.5 mg base)/3 mL solution for nebulization 3 ml INHALATION QID PRN (Reason: Shortness Of Breath) RF: 0 Xgeva 120 mg/1.7 mL (70 mg/mL) solution 120 mg SUBCUT Q30D RF: 0 Zoladex 10.8 mg implant 10.8 mg SUBCUT Q90D RF: 0 alfuzosin 10 mg tablet extended release 24 hr 10 mg PO DAILY RF: 0 Belsomra 20 mg tablet 20 mg PO DAILY RF: 0 Discharge Orders: Discharge Order (Routine); Ordered 04/09/19 Ordered By: Jake Darling Referrals: Joann Knowles DO [Primary Care Provider] - Daniel Monahan MD [Staff Physician] - 4-7 days Henry Bunch DO [Family Provider] - Discharge Diet: Advance as tolerated Discharge Activity: Increase activity as tolerated Patient Instructions: Acute Diarrhea (ED) Activity Restrictions/Additional Instructions: Keep your scheduled appointment with oncology. Return for fever greater than 100, vomiting liquids or medications, worsening pain or diarrhea despite treatment, other concerning symptoms Discharge Date/Time: 04/09/19 19:54 Coding Level of Care Code ED Daycare Manager for Chg Fwd Exam Comprehensive Documented by User: Jacques Hurtado DO 04/13/19 09:00 HPI - General Adult General: Chief complaint: General Medical Stated complaint: high hr and bp Time Seen by Provider: 04/09/19 16:00 Source: patient and family Mode of arrival: ambulatory Limitations: no limitations History of Present Illness: HPI narrative: 74 yo male presents with RLQ pain. pt states this started today. pt has a hx of diverticulitis. pt states movement and walking makes the pain worse and nothing makes it worse. pt has a hx of cancer, Dr. Monahan sent pt to the ED for a further work up. complaint: RLQ pain Onset (ago): day(s) (4 days ago) Location: abdomen (RLQ) Severity: moderate Quality: stabbing Pain Consistency: constant Relieving factors: none Exacerbating factors: movement (walking) Associated symptoms: Deny chest pain, dyspnea, malaise or rash Treatments prior to arrival: none Review of Systems Const: Denies: fever, chills, body aches, change in appetite, fatigue or malaise ENMT: Denies: throat pain, ear pain, nasal discharge or nasal congestion Card: Denies: chest pain, edema, shortness of breath on exertion or shortness of breath when lying down Resp: Denies: shortness of breath, productive cough or non-productive cough GI: Reports: abdominal pain and diarrhea : Denies: flank pain, painful urination, urinary frequency or urinary urgency Skin/Breast: Denies: rash or itching PFSH ED PFSH: Social History Smoking and tobacco status: current every day smoker cigarettes Packs smoked per day: 0.5 Alcohol intake: never Physical Exam Const: COMMON NORMALS: no apparent distress GENERAL APPEARANCE: cooperative and comfortable ORIENTATION/CONSCIOUSNESS: Yes awake, Yes oriented to person, Yes oriented to place and Yes oriented to time HENMT: COMMON NORMALS: normocephalic, head/scalp atraumatic, hearing grossly normal bilaterally, external ears normal, EAC's normal, TM's normal bilaterally, nasal mucous membranes and turbinates normal, moist oral mucous membranes and oropharynx normal HEAD & SCALP: normocephalic and atraumatic NOSE: nasal mucous membranes and turbinates normal EXTERNAL EAR: Yes external ears normal EXTERNAL AUDITORY CANAL: EAC's normal TYMPANIC MEMBRANE: TM's normal bilaterally Eye: COMMON NORMALS: PERRL, EOMs intact bilaterally, conjunctivae normal and no scleral icterus CONJUNCTIVA: Yes conjunctivae normal PUPIL: Yes PERRL Neck/C-Spine: COMMON NORMALS: full ROM, no lymphadenopathy, supple and no JVD Lymph: LYMPHATIC: no lymphadenopathy noted and no lymphedema noted Resp: COMMON NORMALS: normal respiratory effort, no retractions, no use of accessory muscles and clear to auscultation bilaterally AUSCULTATION: clear to auscultation bilaterally Cardio: COMMON NORMALS: no JVD, regular rate, regular rhythm and no murmurs RATE: regular rate RHYTHM: regular rhythm GI: PALPATION: Yes tender (RLQ) Extremity: COMMON NORMALS: normal to inspection, normal capillary refill, no clubbing, cyanosis or edema, no calf tenderness and no pedal edema Neuro: SENSORIUM/ORIENTATION: Yes oriented to person, Yes oriented to place and Yes oriented to time Skin: COMMON NORMALS: no rashes or lesions noted GENERAL SKIN EXAM: no rashes or lesions noted Course ED course: Care transferred to Dr. Darling at change of shift Vital Signs: Vital signs: Vital Signs Temperature 98.7 F 04/09/19 15:50 Pulse Rate 80 04/09/19 19:45 Respiratory Rate 19 H 04/09/19 19:25 Blood Pressure 131/94 04/09/19 19:45 Pulse Oximetry 94 04/09/19 15:50 [facility] - General Adult Lab Data: Labs: Lab Results 04/09/19 04/09/19 04/09/19 Range/Units 17:00 17:00 17:18 WBC 2.6 L (4.0-10.0) 10^3/ uL RBC 4.04 L (4.1-5.3) 10^6/u L Hgb 12.4 (11.7-16.6) g/dL Hct 37.0 L (42.0-52.0) % MCV 91.6 (80-94) fL MCH 30.7 (28.0-34.0) pg MCHC 33.5 (30.0-36.0) g/dL RDW 13.5 (12.1-15.1) % Plt Count 132 (130-400) 10^3/c mm MPV 10.5 H (7.4-10.4) fL Neut % (Auto) 62.8 % Lymph % (Auto) 17.4 % Coles % (Auto) 17.1 % Eos % (Auto) 1.9 % Baso % (Auto) 0.4 % Neut # (Auto) 1.6 L (1.8-7.7) 10^3/u L Lymph # (Auto) 0.5 L (0.8-4.8) 10^3/u L Coles # (Auto) 0.4 (0.2-0.9) 10^3/u L Eos # (Auto) 0.1 (0.0-0.8) 10^3/u L Baso # (Auto) 0.0 (0.0-0.1) 10^3/u L Nucleated RBC % (a uto) 0 % Nucleated RBCs # 0.0 /100WBC Sodium 140 (136-145) mmol/L Potassium 3.8 (3.5-5.1) mmol/L Chloride 102 (98-107) mmol/L Carbon Dioxide 27 (22-29) mmol/L Anion Gap 14.8 (5-19) BUN 13 (8-23) mg/dL Creatinine 0.8 (0.7-1.2) mg/dL Glucose 109 (65-115) mg/dL Calcium 9.2 (8.5-10.5) mg/dL Total Bilirubin 0.5 (0.15-1.2) mg/dL AST 14 (0-40) U/L ALT 19 (0-41) U/L Alkaline Phosphata se 70 (40-130) IU/L Total Protein 7.5 (6.6-8.7) g/dL Albumin 4.1 (3.5-5.2) g/dL Globulin 3.4 (1.3-4.6) g/dL Urine Color Yellow (Yellow) Urine Appearance Clear (CLEAR) Urine pH 5 (5-7) Ur Specific Gravit y 1.015 (1.005-1.030) Urine Protein Neg (Negative) Urine Glucose (UA) Norm (Normal) Urine Ketones Negative (Negative) Urine Blood Neg (Negative) Urine Nitrate Negative (Negative) Urine Bilirubin Neg (NEGATIVE) Urine Urobilinogen Norm (Negative) mg/dL Ur Leukocyte Karo ase Negative (Negative) Discharge Plan Discharge Patient Disposition: Home, Self-Care Clinical Impression: Diarrhea Qualifiers: Diarrhea type: unspecified type Qualified Code(s): R19.7 - Diarrhea, unspecified Condition: Stable Prescriptions: New Flagyl 500 mg tablet 500 mg PO Q8H 7 Days Qty: 21 RF: 0 No Action Zytiga 500 mg tablet 1,000 mg PO DAILY RF: 0 prednisone 5 mg tablet 5 mg PO DAILY RF: 0 levothyroxine 175 mcg capsule 175 mcg PO DAILY RF: 0 aspirin 81 mg tablet,delayed release (DR/EC) 81 mg PO DAILY RF: 0 bicalutamide 50 mg tablet 50 mg PO DAILY RF: 0 esomeprazole magnesium [Nexium] 40 mg capsule,delayed release(DR/EC) 40 mg PO DAILY RF: 0 metoprolol succinate 25 mg tablet extended release 24 hr 25 mg PO DAILY RF: 0 metformin 1,000 mg tablet 1,000 mg PO BID RF: 0 montelukast [Singulair] 10 mg tablet 10 mg PO DAILY RF: 0 All Day Allergy (cetirizine) 10 mg capsule 10 mg PO DAILY RF: 0 ezetimibe [Zetia] 10 mg tablet 10 mg PO DAILY RF: 0 atorvastatin 80 mg tablet 80 mg PO DAILY RF: 0 mirtazapine 7.5 mg tablet 15 mg PO DAILY RF: 0 hydrocodone-acetaminophen 10-325 mg tablet 1 tab PO QID PRN (Reason: Pain) RF: 0 cyclobenzaprine 10 mg tablet 10 mg PO TID RF: 0 nitroglycerin [Nitrostat] 0.4 mg tablet, sublingual 0.4 mg SUBLINGUAL Q5M PRN (Reason: Chest Pain) RF: 0 albuterol sulfate [ProAir HFA] 90 mcg/actuation HFA aerosol inhaler 2 puff INHALATION Q6H PRN (Reason: Shortness Of Breath) RF: 0 fluticasone propion-salmeterol [Advair Diskus] 500-50 mcg/dose blister with device 1 inh INHALATION Q12H RF: 0 ipratropium-albuterol 0.5 mg-3 mg(2.5 mg base)/3 mL solution for nebulization 3 ml INHALATION QID PRN (Reason: Shortness Of Breath) RF: 0 Xgeva 120 mg/1.7 mL (70 mg/mL) solution 120 mg SUBCUT Q30D RF: 0 Zoladex 10.8 mg implant 10.8 mg SUBCUT Q90D RF: 0 alfuzosin 10 mg tablet extended release 24 hr 10 mg PO DAILY RF: 0 Belsomra 20 mg tablet 20 mg PO DAILY RF: 0 Discharge Orders: Discharge Order (Routine); Ordered 04/09/19 Ordered By: Jake Darling Referrals: Joann Knowles DO [Primary Care Provider] - Daniel Monahan MD [Staff Physician] - 4-7 days Henry Bunch DO [Family Provider] - Discharge Diet: Advance as tolerated Discharge Activity: Increase activity as tolerated Patient Instructions: Acute Diarrhea (ED) Activity Restrictions/Additional Instructions: Keep your scheduled appointment with oncology. Return for fever greater than 100, vomiting liquids or medications, worsening pain or diarrhea despite treatment, other concerning symptoms Discharge Date/Time: 04/09/19 19:54 Coding Level of Care Code ED Daycare Manager for Chg Fwd Exam Comprehensive The documentation recorded by the Edmar magallanes Bridget Annette, accurately reflects the service I personally performed and the decisions made by , Jacques Hurtado, Apr 09, 2019 15:17
--- NOTE | 2019-04-09 16:15 | CTR_ITS ---
PROCEDURE INFORMATION: Exam: CT Abdomen And Pelvis With Contrast Exam date and time: 04/09/2019 5:25 PM Age: 74 years old Clinical indication: Abdominal pain; Localized; Lower; Prior surgery; Surgery date: 6+ months; Surgery type: Hernia; Additional info: Abd pain TECHNIQUE: Imaging protocol: Computed tomography of the abdomen and pelvis with intravenous contrast. Total DLP: 1103.46 mGy-cm Radiation optimization: All CT scans at this facility use at least one of these dose optimization techniques: automated exposure control; mA and/or kV adjustment per patient size (includes targeted exams where dose is matched to clinical indication); or iterative reconstruction. Contrast material: OMNI 300; Contrast volume: 95 ml; Contrast route: RT AC; COMPARISON: CT abdomen pelvis w con* [id number] 10/16/2018 11:52 AM FINDINGS: Lungs: Nonspecific bibasilar ground-glass opacity is present, consistent with atelectasis, edema, or pneumonia. Mediastinum: A small hiatal hernia is present. Liver: There is a diffuse decrease in hepatic parenchymal density, consistent with fatty infiltration. Gallbladder and bile ducts: Normal. No calcified stones. No ductal dilation. Pancreas: Punctate pancreatic calcifications are noted compatible sequela of chronic pancreatitis. No evidence of acute pancreatitis. Spleen: Normal. No splenomegaly. Adrenals: Normal. No mass. Kidneys and ureters: There are multiple renal hypodensities that cannot be further characterized on the current examination. There is a 4 cm fluid density simple cyst in the left kidney. There is a 1.2 cm benign fluid density cyst midpole left kidney. There is no evidence of hydronephrosis. There is no evidence of renal calcifications. Stomach and bowel: Extensive diverticulosis is present in the distal colon. There is no evidence of intestinal perforation or obstruction. There is no evidence of colitis/diverticulitis. Appendix: A normal appendix is identified. Intraperitoneal space: Unremarkable. No free air. No significant fluid collection. Vasculature: Unremarkable.No abdominal aortic aneurysm. Lymph nodes: Unremarkable.No enlarged lymph nodes. Bladder: There is nonspecific bladder wall thickening. This may be related to incomplete distention. Reproductive: The prostate demonstrates nonspecific parenchymal calcifications. Bones/joints: Sclerotic bony lesions are unchanged in size but slightly more dense compared to the prior exam compatible probable treated metastases. 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 No collapse. No acute bony abnormality. Severe facet degenerative changes are noted. Soft tissues: Small fat filled inguinal hernias are noted. Other findings: There is severe emphysematous changes. There are calcified granulomas. CT/CT abdomen pelvis w con* [id number] IMPRESSION: 1. Nonspecific bibasilar ground-glass opacity is present, consistent with atelectasis, edema, or pneumonia. 2. Unchanged size of the sclerotic bony lesions. Avascular necrosis of the right femoral head. 3. Benign fluid density left renal cortical cysts. No follow-up is necessary. 4. Diverticulosis without diverticulitis. No bowel thickening or inflammatory changes. No hydronephrosis or obstructing calculi. COMMENTS: Consistent with the [employer]'s Incidental Findings Committee white paper (J Am Manjinder Radiol 2018): Any incidental cystic renal lesion classified in this report as too small to characterize or simple appearing is likely a benign cyst. No follow-up imaging is recommended for these lesions per consensus recommendations based on imaging criteria. Radiation Dose CTDIVOL = (mGy): DLP = 1103.46 (mGy-cm)
[2019-04-09 17:21] LABS: Basophils % 0.4 %; Eosinophils # 0.1 10^3/uL (0.0-0.8); Eosinophils % 1.9 %; Hemoglobin 12.4 g/dL (11.7-16.6); Lymphocytes # 0.5 10^3/uL (0.8-4.8); Lymphocytes % 17.4 %; Mean Corpuscular HGB Conc 33.5 g/dL (30.0-36.0); Mean Corpuscular Hemoglobin 30.7 pg (28.0-34.0); Mean Corpuscular Volume 91.6 fL (80-94); Mean Platelet Volume 10.5 fL (7.4-10.4); Monocytes # 0.4 10^3/uL (0.2-0.9); Monocytes % 17.1 %; Neutrophils # 1.6 10^3/uL (1.8-7.7); Neutrophils % 62.8 %; Nucleated Red Blood Cells % 0 %; Platelet Count 132 10^3/cmm (130-400); Red Blood Count 4.04 10^6/uL (4.1-5.3); Red Cell Distribution Width 13.5 % (12.1-15.1); White Blood Count 2.6 10^3/uL (4.0-10.0)
[2019-04-09 17:38] LABS: Alanine Aminotransferase 19 U/L (0-41); Albumin Level 4.1 g/dL (3.5-5.2); Alkaline Phosphatase 70 IU/L (40-130); Anion Gap 14.8 (5-19); Aspartate Amino Transferase 14 U/L (0-40); Blood Urea Nitrogen 13 mg/dL (8-23); Calcium 9.2 mg/dL (8.5-10.5); Carbon Dioxide 27 mmol/L (22-29); Chloride 102 mmol/L (98-107); Globulin 3.4 g/dL (1.3-4.6); Glucose 109 mg/dL (65-115); Potassium 3.8 mmol/L (3.5-5.1); Sodium 140 mmol/L (136-145); Total Bilirubin 0.5 mg/dL (0.15-1.2); Total Protein 7.5 g/dL (6.6-8.7)
[2019-04-09] MEDS: iohexol 300 mg/mL 100 mL Btl IV (17:47)
--- NOTE | 2019-04-09 18:21 | PC.NURSE ---
patient returned from ct, no needs voiced
--- NOTE | 2019-04-09 19:25 | PC.NURSE ---
Introduced self to patient and initiated vital signs. Patient presents A&O x 4. NAD, ABCs intact, MAEW and agreeable to treatment. Respirations are even and unlabored. Pt states that the chief complaint for the ER visit today is due to elevated blood pressure. Pt denies any vision disturbances or lightheadedness. Bed left in lowest position in semi-fowlers with side rails up.Reassured patient of needs and will continue to monitor.
[2019-04-09] MEDS: metroNIDAZOLE 500 MG Tablet PO (19:42)
[2019-04-09 19:48] LABS: Add Urine Microscopic? NO
[2019-04-09 19:52] LABS: Bilirubin Urine Neg (NEGATIVE); Blood Urine Neg (Negative); Glucose Urine UA Norm (Normal); Ketones Urine Negative (Negative); Leukocyte Esterase Urine Negative (Negative); Nitrate Urine Negative (Negative); Protein Urine Neg (Negative); Specific Gravity, Urine 1.015 (1.005-1.030); Urine Appearance Clear (CLEAR); Urine Color Yellow (Yellow); Urobilinogen Urine Norm (Negative); pH Urine 5 (5-7)
== END 2019-04-09 19:54 | disposition home or self-care (01) ==
PROVIDERS: Family Medicine; Emergency Provider Emergency Medicine; Family Provider Internal Medicine; PCP Family Medicine
DX: R19.7 Diarrhea, unspecified (principal); F17.210 Nicotine dependence, cigarettes, uncomplicated; Z88.1 Allergy status to other antibiotic agents
CPT/HCPCS: 36415; 74177; 80053; 81003; 85025; 93005; 99283; Q9967

== ENCOUNTER → 2019-04-19 09:43 | Outpatient (BNVA) | payer MEDICARE, MEDICAID, SELFPAY | PROVIDERS: Family Provider Internal Medicine; PCP Family Medicine; Visit Provider Family Medicine | DX: E11.9 Type 2 diabetes mellitus without complications (principal); E78.5 Hyperlipidemia, unspecified; I10 Essential (primary) hypertension; E89.0 Postprocedural hypothyroidism; C61 Malignant neoplasm of prostate | CPT/HCPCS: 80053; 80061; 82044; 83036; 84153; 84403; 84443; 85025 ==

== ENCOUNTER 2019-04-26 10:24 | Outpatient (RCR) | payer MEDICARE, MEDICAID, SELFPAY ==
--- NOTE | 2019-04-14 09:39 | ONC FU_ITS ---
Dr. Monahan follow up note Patient: Charlie Jacobs Unit #: [id number]: 1945 Dicatated By: Daniel Monahan M.D.Date of Visit:Apr 14, 2019 Onc Med Follow-up/Prog Note History of Present Illness: Mr. 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 At that time, his PSA was 7.1 and left sided nodule biopsies showed 6 out of 12 cores positive for 3+3/3+4 CRANE LADLE PERSON with 20-60% involvement. He received external beam radiation therapy which he completed in March 2007. Follow-up PSA level showed good response but start increasing and peak prior to initiation of hormonal therapy was 6.1, patient underwent rebiopsy on 09/14/2009 which showed suspicious pathology but not diagnostic. Mr Jacobs was started on LHRH agonist in December 2009 with 2 weeks of Casodex. He had excellent response. PSA was undetectable till January 2012 thereafter slow rise e.g. 0.27 on 08/05/2012 and 2 in May 2013, 7 in November 2013 and 8.4 in March 2015. Bicalutamide was added. In September 2015 and later stopped after increasing PSA again. In April 2017 bilateral scrotal orchiectomy was done. But PSA continued to rise in January 2018 was around 19 and in April 2018,gone up to 39.58. At that time, he started on Casodex 50 mg by mouth daily and CT scan of abdomen pelvis was done on 04/25/2018 which showed no pelvic lymphadenopathy but nonspecific multifocal osseous sclerotic foci; descending sigmoid colon diverticulosis with the descending sigmoid colon junction short segment diverticulitis patient was treated with antibiotics. Zoladex 10.8 mg was started on 06/01/2018. In the meantime, Mr Jacobs developed a mass in the right side of his neck and further investigation led to the diagnosis of thyroid cancer. He underwent thyroidectomy with lymph node dissection- as per patient, cancer was involving lymph nodes. s/p radioactive iodine treatment in early June in [facility]. Mr. Jacobs was seen in the emergency room on 09/07/2018 for low back pain. He apparently had been having back pain for 2 weeks. It was described as intermittent dull and sharp pain sometimes radiating to the left hip. It has gotten progressively worse. The pain medication was only partly relieving it. He did have a CT of the lumbar spine on 09/07/2018. It showed progressive sclerotic metastatic disease along the posterior margin of the right L1 vertebral body, the superior endplates of L3 and L4, left L3 pedestal, sclerotic focus involving the right anterior aspect of the L5 body and sclerotic focus along the lateral margin of the right iliac bone. He was referred to Dr. Corral for consideration of palliative radiation therapy. Dr. Corral did see him the same day on 09/07/2018 and did recommend palliative radiation to the lower back to control the metastatic disease and relieve pain. He was also started on Decadron 4 mg every 6 hours for 7 days in the emergency room on 09/07/2018. Mr Jacobs received radiation therapy to the spine He received 3000 cGy total dose to the SPINE GTV30 starting 09/13/2018 and ending 10/01/2018. He then received treatment to T10 spine, ref ID: [id number] Spine to a total dose of 3000 cGy starting 02/03/2019 and ending on 02/17/2019. He has had an excellent response to the radiation with his back pain resolved. He has been on denosumab since June 10, 2018 per our chart. He continues with Zoladex with his last dose being given on March 25, 2019. He also received denosumab at that time as well. Mr. Jacobs is here today to begin further treatment for his disease progression. He has had significant elevation of his PSA on March 25, 2019 it was 44. On January 20, 2019 it was 29. has recommended that he pursue treatment with Zytiga/prednisone and continue the every 3-month dose of Zoladex and monthly denosumab.Came for follow-up, denies any specific complaint today except metallic taste with Flagyl which has been discontinued. As per patient he went to emergency room last Edwin, with hypertension and abdominal discomfort underwent CT scan of abdomen on the 04/09/2019 which showed nonspecific bibasilar groundglass opacity consistent with atelectasis edema or pneumonia. Unchanged size of sclerotic bone lesions. Avascular necrosis of right femoral head. Diverticulosis without diverticulitis. No hydronephrosis. His blood pressure was within normal range and pulse was between 90 and 100 and as per patient and his EKG did not show any abnormality. Patient was treated IV fluid and discharge home on oral antibiotic Flagyl for presumed diagnosis of diverticulitis, was referred to Dr. Fermin for GI evaluation, as per patient now colonoscopy is under consideration. His labs ER on 04/09/2019 shows white blood count 2.6 and globin 12.4 hematocrit 37 platelets 130,000 CMP within normal limits. Patient denies any fever or chills today denies any nausea or vomiting or diarrhea patient denies any headaches. As per patient when he started taking zytiga/prednisone. Developed these symptoms his blood pressure was high around 190/130 and also had palpitation and diarrhea since zytiga/prednisone is on hold he is feeling better. 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 Medications: Advair Diskus 1 Puff(s) (of 100-50 mcg/dose) Aerosol Powder, Breath Activated Inhalation b.i.d. PRN, Albuterol Sulfate 1 puff(s) (of (2.5 mg/3ml) 0.083%) Nebulization solution Inhalation four times a day, Alfuzosin HCl ER 1 Tablet (of 10 mg) Tablet SR 24 HR Oral at bedtime, Aspirin 1 Tablet (of 81 mg) Oral daily, Atorvastatin Calcium 1 Tablet (of 80 mg) Oral daily, Belsomra 1 Tablet (of 15 mg) Oral at bedtime PRN, Cetirizine HCl 1 Tablet (of 10 mg) Oral daily, Cyclobenzaprine HCl 0.5 - 1 Tablet (of 10 mg) Oral t.i.d. PRN, Esomeprazole Magnesium 1 Capsule (of 40 mg) Capsule Delayed Release Oral daily, HYDROcodone-Acetaminophen 1 Tablet (of 10-325 mg) Oral four times a day PRN, Ipratropium-Albuterol 1 puff(s) (of 0.5-2.5 (3) mg/3ml) Solution Inhalation q 4 hours PRN, Levothyroxine Sodium 1 Tablet (of 175 mcg) Oral daily, Lisinopril 0.5 Tablet (of 20 mg) Oral daily, metFORMIN HCl 1 Tablet (of 1000 mg) Oral daily, Metoprolol Succinate ER 1 Tablet (of 25 mg) Tablet SR 24 HR Oral daily, Mirtazapine 1 Tablet (of 7.5 mg) Oral daily, Montelukast Sodium 1 Tablet (of 10 mg) Oral daily, Nitroglycerin 1 Tablet (of 0.4 mg) Tablet, sublingual Sublingual PRN, ProAir HFA 1 puff(s) (of 108 (90 base) mcg/act) Aerosol, solution Inhalation q 4 hours PRN, Probiotic Digestive Support 1 Capsule Oral daily, Xgeva 1 Subcutaneous q 30 days, Zetia 1 Tablet (of 10 mg) Oral daily, Zoladex (10.8 mg) Subcutaneous q 12 weeks Allergies: Vancomycin HCl Review of Systems: Constitutional - Appetite and weight are stable. No fever, chills, hot flashes or night sweats. Energy level is fair, ENMT - Positive for sinus congestion. No mouth sores. No sore throat or difficulty swallowing, Hematologic/Lymphatic - No abnormal bruising or bleeding, Respiratory - Positive for shortness of breath. No cough. No pleuritic pain or hemoptysis, Cardiovascular - No angina pain. No palpitations, Gastrointestinal - Pt denies nausea. No heartburn or acid reflux. Positive for diarrhea. No constipation. No blood in the stool or black stools, Musculoskeletal - Pt reports chronic significant back pain, Neurologic - No headache. Positive for dizziness. Pt reports numbness in feet, Psychiatric - No anxiety or depression. No insomnia. Vital Signs: Performed on Apr 14, 2019 08:04 Height - 75.00 in Weight - 208.6 lbs (LOW) BSA - 2.23 sq.m BMI - 26.07 Temperature - 98.0 F (LOW) Pulse - 78 /min Respiration - 17 /min BP - 131/70 mm(hg) O2 Sat - 93 % (LOW) Pain - 0 Performance Status: 0 - Fully active, able to carry on all predisease activities without restrictions. (ECOG) Physical Examination: ENMT - No oral exudates, ulcers, masses, thrush or mucositis. Oropharynx clear. Tongue normal, Respiratory - Lungs are clear to auscultation without rhonchi or wheezing, Cardiovascular - Regular rate and rhythm of heart, Abdomen - Non-tender, non-distended, no masses, Good bowel sounds. No guarding or rebound tenderness. No pulsatile masses, Extremities - no edema. Lab/Imaging: Test performed on Apr 09, 2019 17:00 Glucose 109 mg/dL BUN 13 mg/dL Creatinine 0.8 mg/dL Cr Clearance (Est) 108.63 mL/min Sodium 140 mmol/L Potassium 3.8 mmol/L Chloride 102 mmol/L CO2 27 mmol/L Calcium 9.2 mg/dL Protein, Total 7.5 g/dL Albumin 4.1 g/dL Globulin 3.4 g/dL Bilirubin, Total 0.5 mg/dL Alkaline Phosphatase 70 IU/L AST (SGOT) 14 IU/L ALT (SGPT) 19 IU/L WBC 2.6 10^9/L RBC 4.04 10^12/L HGB 12.4 g/dL HCT 37.0 % MCV 91.6 fl MCH 30.7 pg MCHC 33.5 g/dL RDW 13.5 % Platelet Count 132 10^9/L MPV 10.5 fL Neutrophils (Gran) 1.6 10^9/L Lymphocytes 0.5 10^9/L Monocytes 0.4 10^9/L Eosinophils 0.1 10^9/L Basophils 0.0 10^9/L Manual Lymphocytes 17.4 % Manual Monocytes 17.1 % Manual Eosinophils 1.9 % Manual Basophils 0.4 % Test performed on Apr 06, 2019 10:18 Anion Gap 14.9 Neutrophil % 65.3 % Lymphocyte % 16.5 % Monocyte % 15.4 % Eosinophil % 2.0 % Basophils % 0.4 % PSA 54.97 ng/mL Test performed on Mar 16, 2019 09:25 TSH 0.01 uIU/mL T4, Free 2.38 ng/dL Test performed on Jan 20, 2019 10:10 CBC Slide Review SLIDE REVIEW PERFORM SLIDE REVIEW AGREES WITH AUTOMATED RESULTS ST Impression: Biochemical recurrence, CT scan of abdomen pelvis done on 04/25/2018 showed sclerotic lesions in the pelvic bones no pelvic lymphadenopathy or abnormal mass. History of prostrate cancer initially diagnosed in 2006 at that time his PSA was 7.1 and left-sided nodule biopsy showed 6 out of 12 cores positive for 3+3/3+ for CRANE LADLE PERSON with 20-60% involvement status post external beam radiation therapy completed in March 2007 Follow-up PSA showed excellent response till 2009 when PSA started going up underwent rebiopsy of prostate on 09/14/2009 which was nondiagnostic but suspicious for malignancy. Started on LHRH agonist in December 2009 2 weeks of Casodex, excellent response PSA become undetectable still January 2012 with slow rise thereafter e.g. 0.27 on 08/05/2012, 2 in May 2013, 7 in November 2013, 8.4 in March 2015 bicalutamide was admitted in September 2015 later stopped after PSA continued to go up, subsequently underwent bilateral scrotal orchiectomy in April 2017 PSA continued to rise around 20 on 01/28/2018 for the gone up to 39.58 in April 2018, at that time Casodex 50 mg by mouth was started and patient was referred to medical oncology clinic Zoladex 10.8 mg every 3 months started on 06/01/2018 Bone scan done on 06/01/2018 showed L3 and L4 vertebral body increased activity corresponding to the prior CT sclerosis. Left T10 and T7 lateral vertebral body or facet increase activity you from prior exam done in December 2006,. New right lateral posterior ninth rib focus of increased activity. did see Mr. Jacobs in August 2018 at which time Mr. Jacobs was having moderate to severe distress with progressive lower back pain. He was sent to the emergency room for evaluation for possible metastatic disease or prolapse/collapsed vertebra. His PSA at that time was 34.24 and his testosterone was 19.9. New right sixth and eighth anterior lateral rib focus of increased activity. Recently diagnosed with thyroid cancer status post thyroidectomy with lymph node dissection now radioactive iodine therapy was under consideration as of June 2018. Mr. Jacobs was seen in the emergency room on 09/07/2018 for low back pain. He apparently been having back pain for 2 weeks. It was described as intermittent dull and sharp pain sometimes radiating to the left hip. It has gotten progressively worse. The pain medication was only partly relieving it. He did have a CT of the lumbar spine on 09/07/2018. It showed progressive sclerotic metastatic disease along the posterior margin of the right L1 vertebral body, the superior endplates of L3 and L4, left L3 pedestal, sclerotic focus involving the right anterior aspect of the L5 body and sclerotic focus along the lateral margin of the right iliac bone. He was referred to Dr. Corral for consideration of palliative radiation therapy. Dr. Corral did see him the same day on 09/07/2018. And did recommend palliative radiation to the lower back to control the metastatic disease in relieve pain. He was also started on Decadron 4 mg every 6 hours for 7 days in the emergency room on 09/07/2018. Mr Jacobs received radiation therapy to the spine He received 3000 cGy total dose to the SPINE GTV30 starting 09/13/2018 and ending 10/01/2018. He then received treatment to T10 spine, ref ID: T10 Spine to a total dose of 3000 cGy starting 02/03/2019 and ending on 02/17/2019. He has had an excellent response to the radiation with his back pain resolved. He has been on denosumab since June 10, 2018 per our chart. He continues with Zoladex with his last dose being given on March 25, 2019. He also received denosumab at that time as well. Mr. Jacobs is here today to begin further treatment for his disease progression. He has had significant elevation of his PSA on March 25, 2019 it was 44. On January 20, [address] Monahan has recommended that he pursue treatment with Zytiga/prednisone and continue the every 3-month dose of Zoladex and monthly denosumab. Plan: Discussed with patient regarding his question regarding concerns especially with zytiga/prednisone, his episode of hypertension and diarrhea could be due to zytiga/prednisone but other possibilities including food poisoning or diverticulitis cannot be ruled out and only patient notice hypertension whereas in the emergency room his blood pressure was and remained within normal range and CMP showed no evidence of hypokalemia or liver damage which is common with zytiga. And patient was on low-dose e.g. 250 mg by mouth in the morning His repeat PSA on 04/06/2019 was 54.97 compared to 44.14 on 03/25/2019 patient is on Zoladex every 3 months and daily Casodex, zytiga/prednisone was added recently but patient could not tolerate zytiga . Patient is recovering from episode of hypertension/and diarrhea and now GI workup is in progress. We will continue to hold zytiga/prednisone for another week and also discontinue Casodex and repeat his PSA/testosterone in a week and goal is to keep testosterone below 50 and PSA continued to go up and now patient is reluctant to consider zytiga, so we will consider discussing role of chemotherapy Taxotere 75 mg/m??? every 3 weeks ???6 or enzalutamide 160 mg by mouth daily or re-challenging with zytiga and patient was advised not to take any other medication with an hour. Signed By: Daniel Monahan M.D. <<Signature on File>>
[2019-04-22] MEDS: denosumab 120 mg SDV SUBCUT (09:17)
--- NOTE | 2019-04-22 09:38 | ONC FU_ITS ---
Dr. Monahan follow up note Patient: Charlie Jacobs Unit #: [id number]: 1945 Dicatated By: Daniel Monahan M.D.Date of Visit:Apr 22, 2019 Onc Med Follow-up/Prog Note History of Present Illness: Mr. 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 At that time, his PSA was 7.1 and left sided nodule biopsies showed 6 out of 12 cores positive for 3+3/3+4 TERMITE TREATER with 20-60% involvement. He received external beam radiation therapy which he completed in March 2007. Follow-up PSA level showed good response but start increasing and peak prior to initiation of hormonal therapy was 6.1, patient underwent rebiopsy on 09/14/2009 which showed suspicious pathology but not diagnostic. Mr Jacobs was started on LHRH agonist in December 2009 with 2 weeks of Casodex. He had excellent response. PSA was undetectable till January 2012 thereafter slow rise e.g. 0.27 on 08/05/2012 and 2 in May 2013, 7 in November 2013 and 8.4 in March 2015. Bicalutamide was added. In September 2015 and later stopped after increasing PSA again. In April 2017 bilateral scrotal orchiectomy was done. But PSA continued to rise in January 2018 was around 19 and in April 2018,gone up to 39.58. At that time, he started on Casodex 50 mg by mouth daily and CT scan of abdomen pelvis was done on 04/25/2018 which showed no pelvic lymphadenopathy but nonspecific multifocal osseous sclerotic foci; descending sigmoid colon diverticulosis with the descending sigmoid colon junction short segment diverticulitis patient was treated with antibiotics. Zoladex 10.8 mg was started on 06/01/2018. In the meantime, Mr Jacobs developed a mass in the right side of his neck and further investigation led to the diagnosis of thyroid cancer. He underwent thyroidectomy with lymph node dissection- as per patient, cancer was involving lymph nodes. s/p radioactive iodine treatment in early June in [facility]. Mr. Jacobs was seen in the emergency room on 09/07/2018 for low back pain. He apparently had been having back pain for 2 weeks. It was described as intermittent dull and sharp pain sometimes radiating to the left hip. It has gotten progressively worse. The pain medication was only partly relieving it. He did have a CT of the lumbar spine on 09/07/2018. It showed progressive sclerotic metastatic disease along the posterior margin of the right L1 vertebral body, the superior endplates of L3 and L4, left L3 pedestal, sclerotic focus involving the right anterior aspect of the L5 body and sclerotic focus along the lateral margin of the right iliac bone. He was referred to Dr. Corral for consideration of palliative radiation therapy. Dr. Corral did see him the same day on 09/07/2018 and did recommend palliative radiation to the lower back to control the metastatic disease and relieve pain. He was also started on Decadron 4 mg every 6 hours for 7 days in the emergency room on 09/07/2018. Mr Jacobs received radiation therapy to the spine He received 3000 cGy total dose to the SPINE GTV30 starting 09/13/2018 and ending 10/01/2018. He then received treatment to T10 spine, ref ID: [id number] Spine to a total dose of 3000 cGy starting 02/03/2019 and ending on 02/17/2019. He has had an excellent response to the radiation with his back pain resolved. He has been on denosumab since June 10, 2018 per our chart. He continues with Zoladex with his last dose being given on March 25, 2019. He also received denosumab at that time as well. He has had significant elevation of his PSA on March 25, 2019 it was 44. On January 20, 2019 it was 29. has recommended that he pursue treatment with Zytiga/prednisone and continue the every 3-month dose of Zoladex and monthly denosumab. As per patient he went to emergency room , with hypertension and abdominal discomfort underwent CT scan of abdomen on the 04/09/2019 which showed nonspecific bibasilar groundglass opacity consistent with atelectasis edema or pneumonia. Unchanged size of sclerotic bone lesions. Avascular necrosis of right femoral head. Diverticulosis without diverticulitis. No hydronephrosis. His blood pressure was within normal range and pulse was between 90 and 100 and as per patient and his EKG did not show any abnormality. Patient was treated IV fluid and discharge home on oral antibiotic Flagyl for presumed diagnosis of diverticulitis, was referred to Dr. Fermin for GI evaluation, as per patient now colonoscopy is under consideration. His labs ER on 04/09/2019 shows white blood count 2.6 and globin 12.4 hematocrit 37 platelets 130,000 CMP within normal limits .zytiga /prednisone was discontinued by patient on 04/11/2019 because of diarrhea and hypertensiCame for follow-up, denies any specific complaint today, no fever or chills, no nausea vomiting, blood pressure is within normal range, as per patient his primary care physician discontinued his metformin which he has been taken for more than 20 years . No dysuria, pain is under control overall feeling much better more energetic.he is off Zytiga/prednisone and now metformin has been discontinued and he is on Zoladex and Xgeva, tolerating well Medications: Advair Diskus 1 Puff(s) (of 100-50 mcg/dose) Aerosol Powder, Breath Activated Inhalation b.i.d. PRN, Albuterol Sulfate 1 puff(s) (of (2.5 mg/3ml) 0.083%) Nebulization solution Inhalation four times a day, Alfuzosin HCl ER 1 Tablet (of 10 mg) Tablet SR 24 HR Oral at bedtime, Aspirin 1 Tablet (of 81 mg) Oral daily, Atorvastatin Calcium 1 Tablet (of 80 mg) Oral daily, Belsomra 1 Tablet (of 15 mg) Oral at bedtime PRN, Cetirizine HCl 1 Tablet (of 10 mg) Oral daily, Cyclobenzaprine HCl 0.5 - 1 Tablet (of 10 mg) Oral t.i.d. PRN, Esomeprazole Magnesium 1 Capsule (of 40 mg) Capsule Delayed Release Oral daily, HYDROcodone-Acetaminophen 1 Tablet (of 10-325 mg) Oral four times a day PRN, Ipratropium-Albuterol 1 puff(s) (of 0.5-2.5 (3) mg/3ml) Solution Inhalation q 4 hours PRN, Levothyroxine Sodium 1 Tablet (of 175 mcg) Oral daily, Lisinopril 0.5 Tablet (of 20 mg) Oral daily, Metoprolol Succinate ER 1 Tablet (of 25 mg) Tablet SR 24 HR Oral daily, Mirtazapine 1 Tablet (of 7.5 mg) Oral daily, Montelukast Sodium 1 Tablet (of 10 mg) Oral daily, Nitroglycerin 1 Tablet (of 0.4 mg) Tablet, sublingual Sublingual PRN, ProAir HFA 1 puff(s) (of 108 (90 base) mcg/act) Aerosol, solution Inhalation q 4 hours PRN, Probiotic Digestive Support 1 Capsule Oral daily, Xgeva 1 Subcutaneous q 30 days, Zetia 1 Tablet (of 10 mg) Oral daily, Zoladex (10.8 mg) Subcutaneous q 12 weeks Allergies: Vancomycin HCl Review of Systems: Constitutional - Appetite and weight are stable. No fever, chills, hot flashes or night sweats. Energy level is fair, ENMT - Positive for sinus congestion. No mouth sores. No sore throat or difficulty swallowing, Hematologic/Lymphatic - No abnormal bruising or bleeding, Respiratory - Positive for shortness of breath. No cough. No pleuritic pain or hemoptysis, Cardiovascular - No angina pain. No palpitations, Gastrointestinal - Pt denies nausea. No heartburn or acid reflux. Positive for diarrhea. No constipation. No blood in the stool or black stools, Musculoskeletal - Pt reports chronic back pain, Neurologic - No headache. Positive for dizziness. Pt reports numbness in feet, Psychiatric - No anxiety or depression. No insomnia. Vital Signs: Performed on Apr 22, 2019 08:36 Height - 75.00 in Weight - 215.0 lbs (HIGH) BSA - 2.26 sq.m BMI - 26.87 Temperature - 98.6 F Pulse - 71 /min Respiration - 18 /min BP - 166/93 mm(hg) (HIGH) O2 Sat - 94 % (LOW) Pain - 0 Performance Status: 0 - Fully active, able to carry on all predisease activities without restrictions. (ECOG) Physical Examination: ENMT - . No oral exudates, ulcers, masses, thrush or mucositis. Oropharynx clear. Tongue normal, Respiratory - Lungs are clear to auscultation without rhonchi or wheezing, Cardiovascular - Regular rate and rhythm of heart, Abdomen - Non-tender, non-distended, Good bowel sounds. No guarding or rebound tenderness. No pulsatile masses, Extremities - no edema. Lab/Imaging: Test performed on Apr 19, 2019 09:43 Testosterone 2.5 ng/dL TSH 0.01 uU/mL Cholesterol, Total 119 mg/dL Glucose 123 mg/dL BUN 16 mg/dL HDL Cholesterol 37 mg/dL Creatinine 0.8 mg/dL LDL Cholesterol 71 mg/dL Cr Clearance (Est) 108.42 mL/min Triglycerides 57 mg/dL Sodium 142 mmol/L Potassium 4.5 mmol/L Chloride 104 mmol/L CO2 28 mmol/L Calcium 9.2 mg/dL Protein, Total 6.9 g/dL Albumin 3.9 g/dL Globulin 3.0 g/dL Bilirubin, Total 0.4 mg/dL Alkaline Phosphatase 71 IU/L AST (SGOT) 20 IU/L ALT (SGPT) 20 IU/L WBC 1.7 10^9/L RBC 3.92 10^12/L HGB 12.4 g/dL HCT 37.8 % MCV 96.4 fl MCH 31.6 pg MCHC 32.8 g/dL RDW 13.5 % Platelet Count 145 10^9/L MPV 11.2 fL Neutrophils (Gran) 1.0 10^9/L Lymphocytes 0.4 10^9/L Monocytes 0.3 10^9/L Eosinophils 0.0 10^9/L Basophils 0.0 10^9/L Manual Lymphocytes 20.3 % Manual Monocytes 19.2 % Manual Eosinophils 2.3 % Manual Basophils 0.6 % PSA 38.45 ng/mL Test performed on Apr 06, 2019 10:18 Anion Gap 14.9 Neutrophil % 65.3 % Lymphocyte % 16.5 % Monocyte % 15.4 % Eosinophil % 2.0 % Basophils % 0.4 % Test performed on Mar 16, 2019 09:25 T4, Free 2.38 ng/dL Test performed on Jan 20, 2019 10:10 CBC Slide Review SLIDE REVIEW PERFORM SLIDE REVIEW AGREES WITH AUTOMATED RESULTS ST Impression: Biochemical recurrence, CT scan of abdomen pelvis done on 04/25/2018 showed sclerotic lesions in the pelvic bones no pelvic lymphadenopathy or abnormal mass. History of prostrate cancer initially diagnosed in 2006 at that time his PSA was 7.1 and left-sided nodule biopsy showed 6 out of 12 cores positive for 3+3/3+ for TERMITE TREATER with 20-60% involvement status post external beam radiation therapy completed in March 2007 Follow-up PSA showed excellent response till 2009 when PSA started going up underwent rebiopsy of prostate on 09/14/2009 which was nondiagnostic but suspicious for malignancy. Started on LHRH agonist in December 2009 2 weeks of Casodex, excellent response PSA become undetectable still January 2012 with slow rise thereafter e.g. 0.27 on 08/05/2012, 2 in May 2013, 7 in November 2013, 8.4 in March 2015 bicalutamide was admitted in September 2015 later stopped after PSA continued to go up, subsequently underwent bilateral scrotal orchiectomy in April 2017 PSA continued to rise around 20 on 01/28/2018 for the gone up to 39.58 in April 2018, at that time Casodex 50 mg by mouth was started and patient was referred to medical oncology clinic Zoladex 10.8 mg every 3 months started on 06/01/2018 Bone scan done on 06/01/2018 showed L3 and L4 vertebral body increased activity corresponding to the prior CT sclerosis. Left T10 and T7 lateral vertebral body or facet increase activity you from prior exam done in December 2006,. New right lateral posterior ninth rib focus of increased activity. did see Mr. Jacobs in August 2018 at which time Mr. Jacobs was having moderate to severe distress with progressive lower back pain. He was sent to the emergency room for evaluation for possible metastatic disease or prolapse/collapsed vertebra. His PSA at that time was 34.24 and his testosterone was 19.9. New right sixth and eighth anterior lateral rib focus of increased activity. Recently diagnosed with thyroid cancer status post thyroidectomy with lymph node dissection now radioactive iodine therapy was under consideration as of June 2018. Mr. Jacobs was seen in the emergency room on 09/07/2018 for low back pain. He apparently been having back pain for 2 weeks. It was described as intermittent dull and sharp pain sometimes radiating to the left hip. It has gotten progressively worse. The pain medication was only partly relieving it. He did have a CT of the lumbar spine on 09/07/2018. It showed progressive sclerotic metastatic disease along the posterior margin of the right L1 vertebral body, the superior endplates of L3 and L4, left L3 pedestal, sclerotic focus involving the right anterior aspect of the L5 body and sclerotic focus along the lateral margin of the right iliac bone. He was referred to Dr. Corral for consideration of palliative radiation therapy. Dr. Corral did see him the same day on 09/07/2018. And did recommend palliative radiation to the lower back to control the metastatic disease in relieve pain. He was also started on Decadron 4 mg every 6 hours for 7 days in the emergency room on 09/07/2018. Mr Jacobs received radiation therapy to the spine He received 3000 cGy total dose to the SPINE GTV30 starting 09/13/2018 and ending 10/01/2018. He then received treatment to T10 spine, ref ID: T10 Spine to a total dose of 3000 cGy starting 02/03/2019 and ending on 02/17/2019. He has had an excellent response to the radiation with his back pain resolved. He has been on denosumab since June 10, 2018 per our chart. He continues with Zoladex with his last dose being given on March 25, 2019. He also received denosumab at that time as well. Mr. Jacobs is here today to begin further treatment for his disease progression. He has had significant elevation of his PSA on March 25, 2019 it was 44. On January 20, [address] Monahan has recommended that he pursue treatment with Zytiga/prednisone and continue the every 3-month dose of Zoladex and monthly denosumab. Plan: Discussed with patient regarding his labs white blood count 1.7 hemoglobin 12.4 hematocrit 37.8 platelets 145,000 ANC 1000 CMP within normal limits TSH 0.01 PSA 38.45 compared to 54.97 on 04/06/2019 Clinically, patient is doing well, now more energetic and denies any specific complaints, chronic pain is under control. His lab workup continued to show moderate to severe leukopenia and mild anemia etiology not clear could be multifactorial including due to radioactive iodine treatment or considering his age underlying myelodysplasia cannot be ruled out, patient was on metformin for long time which can cause B12 deficiency in return that can cause bone marrow suppression. At this point we will take B12 level and also consider bone marrow evaluation to rule out underlying bone marrow etiology including MDS. As far as prostrate cancer is concern, his repeat PSA has gone down to 38.45 compared to 54.95, treatment options were discussed again because of persistent leukopenia he may not tolerate docetaxel, and doesn't want to take zytiga /prednisone unless PSA started going up and as long as is improving he wants to continue with Zoladex alone otherwise we may consider enzalutamide and in the meantime we will evaluate his bone marrow. Patient will return to clinic in one month with CBC CMP PSA and B12 level. Signed By: Daniel Monahan M.D. <<Signature on File>>
[2019-04-26 11:39] LABS: Thyroid Stimulating Hormone 0.01 uIU/mL (0.27-4.20)
== END 2019-05-10 23:59 | disposition home or self-care (01) ==
LOC: ONCMED 10:24
PROVIDERS: Absent Provider Nurse Practitioner; Family Provider Internal Medicine; PCP Family Medicine; Visit Provider Internal Medicine Endocrinology, Diabetes & Metabolism
DX: C79.51 Secondary malignant neoplasm of bone (principal); C61 Malignant neoplasm of prostate; C73 Malignant neoplasm of thyroid gland; K57.30 Diverticulosis of large intestine without perforation or abscess without bleeding; Z79.899 Other long term (current) drug therapy; Z79.818 Long term (current) use of other agents affecting estrogen receptors and estrogen levels; Z79.51 Long term (current) use of inhaled steroids; Z79.891 Long term (current) use of opiate analgesic; Z90.79 Acquired absence of other genital organ(s); Z85.850 Personal history of malignant neoplasm of thyroid; Z92.3 Personal history of irradiation; E89.0 Postprocedural hypothyroidism
CPT/HCPCS: 84443; 96372; 99214; J0897

== ENCOUNTER 2019-05-26 06:43 | Outpatient (RCR) | payer MEDICARE, MEDICAID, SELFPAY ==
[2019-05-25 08:44] LABS: Basophils % 0.5 %; Hematocrit 37.6 % (42.0-52.0); Hemoglobin 12.4 g/dL (11.7-16.6); Lymphocytes # 0.5 10^3/uL (0.8-4.8); Lymphocytes % 22.7 %; Mean Corpuscular Hemoglobin 32.1 pg (28.0-34.0); Mean Corpuscular Volume 97.4 fL (80-94); Mean Platelet Volume 10.8 fL (7.4-10.4); Monocytes # 0.3 10^3/uL (0.2-0.9); Monocytes % 13.8 %; Neutrophils # 1.2 10^3/uL (1.8-7.7); Neutrophils % 60.5 %; Nucleated Red Blood Cells % 0 %; Platelet Count 144 10^3/cmm (130-400); Red Blood Count 3.86 10^6/uL (4.1-5.3); Red Cell Distribution Width 13.2 % (12.1-15.1)
[2019-05-25 09:26] LABS: Alanine Aminotransferase 19 U/L (0-41); Alkaline Phosphatase 84 IU/L (40-130); Anion Gap 13.8 (5-19); Aspartate Amino Transferase 18 U/L (0-40); Blood Urea Nitrogen 14 mg/dL (8-23); Calcium 9.1 mg/dL (8.5-10.5); Carbon Dioxide 28 mmol/L (22-29); Chloride 104 mmol/L (98-107); Globulin 3.4 g/dL (1.3-4.6); Glucose 139 mg/dL (65-115); Osmolality Calculated 292 mOsm/kg (285-295); Potassium 3.8 mmol/L (3.5-5.1); Sodium 142 mmol/L (136-145); Total Bilirubin 0.5 mg/dL (0.15-1.2); Total Protein 7.4 g/dL (6.6-8.7)
[2019-05-25 09:42] LABS: Vitamin B12 261 pg/mL (232-1245)
[2019-05-26] MEDS: denosumab 120 mg SDV SUBCUT (09:10)
--- NOTE | 2019-05-27 17:38 | ONC FU_ITS ---
Dr. Monahan follow up note Patient: Charlie Jacobs Unit #: [id number]: [id number] Dicatated By: Daniel Monahan M.D.Date of Visit:May 26, 2019 Onc Med Follow-up/Prog Note History of Present Illness: Mr. 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 He received external beam radiation therapy which he completed in March 2007. Follow-up PSA level showed good response but start increasing and peak prior to initiation of hormonal therapy was 6.1, patient underwent rebiopsy on 09/14/2009 which showed suspicious pathology but not diagnostic. Mr Jacobs was started on LHRH agonist in December 2009 with 2 weeks of Casodex. He had excellent response. PSA was undetectable till January 2012 thereafter slow rise e.g. 0.27 on 08/05/2012 and 2 in May 2013, 7 in November 2013 and 8.4 in March 2015. Bicalutamide was added. In September 2015 and later stopped after increasing PSA again. In April 2017 bilateral scrotal orchiectomy was done. But PSA continued to rise in January 2018 was around 19 and in April 2018,gone up to 39.58. At that time, he started on Casodex 50 mg by mouth daily and CT scan of abdomen pelvis was done on 04/25/2018 which showed no pelvic lymphadenopathy but nonspecific multifocal osseous sclerotic foci; descending sigmoid colon diverticulosis with the descending sigmoid colon junction short segment diverticulitis patient was treated with antibiotics. Zoladex 10.8 mg was started on 06/01/2018. In the meantime, Mr Jacobs developed a mass in the right side of his neck and further investigation led to the diagnosis of thyroid cancer. He underwent thyroidectomy with lymph node dissection- as per patient, cancer was involving lymph nodes. s/p radioactive iodine treatment in early June in [facility]. Mr. Jacobs was seen in the emergency room on 09/07/2018 for low back pain. He apparently had been having back pain for 2 weeks. It was described as intermittent dull and sharp pain sometimes radiating to the left hip. It has gotten progressively worse. The pain medication was only partly relieving it. He did have a CT of the lumbar spine on 09/07/2018. It showed progressive sclerotic metastatic disease along the posterior margin of the right L1 vertebral body, the superior endplates of L3 and L4, left L3 pedestal, sclerotic focus involving the right anterior aspect of the L5 body and sclerotic focus along the lateral margin of the right iliac bone. He was referred to Dr. Corral for consideration of palliative radiation therapy. Dr. Corral did see him the same day on 09/07/2018 and did recommend palliative radiation to the lower back to control the metastatic disease and relieve pain. He was also started on Decadron 4 mg every 6 hours for 7 days in the emergency room on 09/07/2018. Mr Jacobs received radiation therapy to the spine He received 3000 cGy total dose to the SPINE GTV30 starting 09/13/2018 and ending 10/01/2018. He then received treatment to T10 spine, ref ID: [id number] Spine to a total dose of 3000 cGy starting 02/03/2019 and ending on 02/17/2019. He has had an excellent response to the radiation with his back pain resolved. He has been on denosumab since June 10, 2018 per our chart. He continues with Zoladex with his last dose being given on March 25, 2019. He also received denosumab at that time as well. He has had significant elevation of his PSA on March 25, 2019 it was 44. On January 20, 2019 it was 29. has recommended that he pursue treatment with Zytiga/prednisone and continue the every 3-month dose of Zoladex and monthly denosumab. As per patient he went to emergency room , with hypertension and abdominal discomfort underwent CT scan of abdomen on the 04/09/2019 which showed nonspecific bibasilar groundglass opacity consistent with atelectasis edema or pneumonia. Unchanged size of sclerotic bone lesions. Avascular necrosis of right femoral head. Diverticulosis without diverticulitis. No hydronephrosis. His blood pressure was within normal range and pulse was between 90 and 100 and as per patient and his EKG did not show any abnormality. Patient was treated IV fluid and discharge home on oral antibiotic Flagyl for presumed diagnosis of diverticulitis, was referred to Dr. Fermin for GI evaluation, as per patient now colonoscopy is under consideration. His labs ER on 04/09/2019 shows white blood count 2.6 and globin 12.4 hematocrit 37 platelets 130,000 CMP within normal limits .zytiga /prednisone was discontinued by patient on 04/11/2019 because of diarrhea and hypertension Came for follow-up, complaining of upper mid back pain, as per patient which is a chronic problem in fact in the past he was treated with radiation therapy with some improvement patient said he has chronic back problem for the last 5-6 year in the past she was told it could be due to disc prolapse but treated conservatively now pain has progressed more with movements. Patient is very active but this time he said one morning he woke up with this pain denies any pain radiating to lower extremities, denies any urine or stool incontinence, denies any numbness in lower extremities. Denies any trauma to his back. Patient said narcotics is helping some but not completely. Denies any hematuria or dysuria, denies any fever or chills, next Patient was scheduled for bone marrow evaluation for persistent leukopenia but he canceled it due to mabry virus and wants to reschedule it later on. Medications: Advair Diskus 1 Puff(s) (of 100-50 mcg/dose) Aerosol Powder, Breath Activated Inhalation b.i.d. PRN, Albuterol Sulfate 1 puff(s) (of (2.5 mg/3ml) 0.083%) Nebulization solution Inhalation four times a day, Alfuzosin HCl ER 1 Tablet (of 10 mg) Tablet SR 24 HR Oral at bedtime, Aspirin 1 Tablet (of 81 mg) Oral daily, Atorvastatin Calcium 1 Tablet (of 80 mg) Oral daily, Belsomra 1 Tablet (of 15 mg) Oral at bedtime PRN, Cetirizine HCl 1 Tablet (of 10 mg) Oral daily, Cyclobenzaprine HCl 0.5 - 1 Tablet (of 10 mg) Oral t.i.d. PRN, Esomeprazole Magnesium 1 Capsule (of 40 mg) Capsule Delayed Release Oral daily, HYDROcodone-Acetaminophen 1 Tablet (of 10-325 mg) Oral four times a day PRN, Ipratropium-Albuterol 1 puff(s) (of 0.5-2.5 (3) mg/3ml) Solution Inhalation q 4 hours PRN, Januvia 1 Tablet (of 25 mg) Oral daily, Levothyroxine Sodium 1 Tablet (of 175 mcg) Oral daily, Lisinopril 0.5 Tablet (of 20 mg) Oral daily, Metoprolol Succinate ER 1 Tablet (of 25 mg) Tablet SR 24 HR Oral daily, Mirtazapine 1 Tablet (of 7.5 mg) Oral daily, Montelukast Sodium 1 Tablet (of 10 mg) Oral daily, Nitroglycerin 1 Tablet (of 0.4 mg) Tablet, sublingual Sublingual PRN, ProAir HFA 1 puff(s) (of 108 (90 base) mcg/act) Aerosol, solution Inhalation q 4 hours PRN, Probiotic Digestive Support 1 Capsule Oral daily, Xgeva 1 Subcutaneous q 30 days, Zetia 1 Tablet (of 10 mg) Oral daily, Zoladex (10.8 mg) Subcutaneous q 12 weeks Allergies: Vancomycin HCl Review of Systems: Constitutional - Appetite and weight are stable. No fever, chills, hot flashes or night sweats. Energy level is fair, ENMT - Positive for sinus congestion. No mouth sores. No sore throat or difficulty swallowing, Hematologic/Lymphatic - No abnormal bruising or bleeding, Respiratory - Positive for shortness of breath. No cough. No pleuritic pain or hemoptysis, Cardiovascular - No angina pain. No palpitations, Gastrointestinal - Pt denies nausea. No heartburn or acid reflux. Positive for diarrhea. No constipation. No blood in the stool or black stools, Musculoskeletal - Pt reports chronic back pain, Neurologic - No headache. Positive for dizziness. Pt reports numbness in feet, Psychiatric - No anxiety or depression. No insomnia. Vital Signs: Performed on May 26, 2019 08:17 Height - 75.00 in Weight - 219.8 lbs (HIGH) BSA - 2.28 sq.m BMI - 27.47 Temperature - 96.9 F (LOW) Pulse - 81 /min Respiration - 18 /min BP - 144/80 mm(hg) (HIGH) O2 Sat - 95 % (LOW) Pain - 8 Performance Status: 2 - Ambulatory/capable of all self-care, unable to perform any work activities. Up and about more than 50% of waking hours. (ECOG) Physical Examination: ENMT - no mouth sores or thrush, Respiratory - Lungs are clear to auscultation, Cardiovascular - Regular rate and rhythm of heart, Abdomen - bowel sounds present, no tenderness, Extremities - no edema or rash or focal weakness. Lab/Imaging: Test performed on Apr 19, 2019 09:43 Testosterone 2.5 ng/dL TSH 0.01 uU/mL Cholesterol, Total 119 mg/dL Glucose 123 mg/dL BUN 16 mg/dL HDL Cholesterol 37 mg/dL Creatinine 0.8 mg/dL LDL Cholesterol 71 mg/dL Cr Clearance (Est) 108.42 mL/min Triglycerides 57 mg/dL Sodium 142 mmol/L Potassium 4.5 mmol/L Chloride 104 mmol/L CO2 28 mmol/L Calcium 9.2 mg/dL Protein, Total 6.9 g/dL Albumin 3.9 g/dL Globulin 3.0 g/dL Bilirubin, Total 0.4 mg/dL Alkaline Phosphatase 71 IU/L AST (SGOT) 20 IU/L ALT (SGPT) 20 IU/L WBC 1.7 10^9/L RBC 3.92 10^12/L HGB 12.4 g/dL HCT 37.8 % MCV 96.4 fl MCH 31.6 pg MCHC 32.8 g/dL RDW 13.5 % Platelet Count 145 10^9/L MPV 11.2 fL Neutrophils (Gran) 1.0 10^9/L Lymphocytes 0.4 10^9/L Monocytes 0.3 10^9/L Eosinophils 0.0 10^9/L Basophils 0.0 10^9/L Manual Lymphocytes 20.3 % Manual Monocytes 19.2 % Manual Eosinophils 2.3 % Manual Basophils 0.6 % PSA 38.45 ng/mL Test performed on Apr 06, 2019 10:18 Anion Gap 14.9 Neutrophil % 65.3 % Lymphocyte % 16.5 % Monocyte % 15.4 % Eosinophil % 2.0 % Basophils % 0.4 % Test performed on Mar 16, 2019 09:25 T4, Free 2.38 ng/dL Test performed on Jan 20, 2019 10:10 CBC Slide Review SLIDE REVIEW PERFORM SLIDE REVIEW AGREES WITH AUTOMATED RESULTS ST Impression: Biochemical recurrence, CT scan of abdomen pelvis done on 04/25/2018 showed sclerotic lesions in the pelvic bones no pelvic lymphadenopathy or abnormal mass. 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 Started on LHRH agonist in December 2009 2 weeks of Casodex, excellent response PSA become undetectable still January 2012 with slow rise thereafter e.g. 0.27 on 08/05/2012, 2 in May 2013, 7 in November 2013, 8.4 in March 2015 bicalutamide was admitted in September 2015 later stopped after PSA continued to go up, subsequently underwent bilateral scrotal orchiectomy in April 2017 PSA continued to rise around 20 on 01/28/2018 for the gone up to 39.58 in April 2018, at that time Casodex 50 mg by mouth was started and patient was referred to medical oncology clinic Zoladex 10.8 mg every 3 months started on 06/01/2018 Bone scan done on 06/01/2018 showed L3 and L4 vertebral body increased activity corresponding to the prior CT sclerosis. Left T10 and T7 lateral vertebral body or facet increase activity you from prior exam done in December 2006,. New right lateral posterior ninth rib focus of increased activity. did see Mr. Jacobs in August 2018 at which time Mr. Jacobs was having moderate to severe distress with progressive lower back pain. He was sent to the emergency room for evaluation for possible metastatic disease or prolapse/collapsed vertebra. His PSA at that time was 34.24 and his testosterone was 19.9. New right sixth and eighth anterior lateral rib focus of increased activity. Recently diagnosed with thyroid cancer status post thyroidectomy with lymph node dissection now radioactive iodine therapy was under consideration as of June 2018. Mr. Jacobs was seen in the emergency room on 09/07/2018 for low back pain. He apparently been having back pain for 2 weeks. It was described as intermittent dull and sharp pain sometimes radiating to the left hip. It has gotten progressively worse. The pain medication was only partly relieving it. He did have a CT of the lumbar spine on 09/07/2018. It showed progressive sclerotic metastatic disease along the posterior margin of the right L1 vertebral body, the superior endplates of L3 and L4, left L3 pedestal, sclerotic focus involving the right anterior aspect of the L5 body and sclerotic focus along the lateral margin of the right iliac bone. He was referred to Dr. Corral for consideration of palliative radiation therapy. Dr. Corral did see him the same day on 09/07/2018. And did recommend palliative radiation to the lower back to control the metastatic disease in relieve pain. He was also started on Decadron 4 mg every 6 hours for 7 days in the emergency room on 09/07/2018. Mr Jacobs received radiation therapy to the spine He received 3000 cGy total dose to the SPINE GTV30 starting 09/13/2018 and ending 10/01/2018. He then received treatment to T10 spine, ref ID: [id number] Spine to a total dose of 3000 cGy starting 02/03/2019 and ending on 02/17/2019. He has had an excellent response to the radiation with his back pain resolved. He has been on denosumab since June 10, 2018 per our chart. He continues with Zoladex with his last dose being given on March 25, 2019. He also received denosumab at that time as well. Mr. Jacobs is here today to begin further treatment for his disease progression. He has had significant elevation of his PSA on March 25, 2019 it was 44. On January 20, [address] Monahan has recommended that he pursue treatment with Zytiga/prednisone and continue the every 3-month dose of Zoladex and monthly denosumab. Plan: Discussed with patient regarding his labs white blood count 2 hemoglobin 12.4 hematocrit 37.6 platelets 144,000 CMP within normal limits PSA 37 compared to 54.97 on 04/06/2019 Clinically, patient is doing reasonably well but now in [id number] distress due to progressive mid back pain patient did receive radiation therapy to T10 vertebra in January 2019, with some improvement but now pain in same area, concern is whether there is a collapse of vertebra or other pathology, patient was advised to go to emergency room for evaluation patient declined but agreed for MRI scan of thoracic lumbar spine for evaluation, we'll schedule him for MRI scan of thoracic spine and in the meantime we'll give him prescription for narcotics and also refer him to Dr. Thornton for evaluation.in the meantime we'll proceed with next monthly dose of Xgeva today As far as prostrate cancer is concern, his PSA still elevated and now stable compared to PSA checked on April 18 when he was 38.45 and today's 37 patient was advised to repeat it Zytiga 250 mg by mouth in the morning along with prednisone as patient said when he took it first-time , at that time he also start taking new medication, so not sure whether he got sick because Zytiga or other new medication which he is not taking anymore. So patient will try Zytiga/prednisone once again and if could not tolerate then were discontinued permanently and consider another agent. Patient return to clinic in one month with PSA and CBC and for Zoladex and Xgeva. Patient was advised in case there is a worsening of his back pain or any new neurological symptoms then he need to go to hospital immediately. Signed By: Daniel Monahan M.D. <<Signature on File>>
== END 2019-06-09 23:59 | disposition home or self-care (01) ==
LOC: ONCMED 06:43
PROVIDERS: Family Provider Internal Medicine; PCP Family Medicine; Visit Provider Internal Medicine Hematology & Oncology
DX: C79.51 Secondary malignant neoplasm of bone (principal); C73 Malignant neoplasm of thyroid gland; R97.20 Elevated prostate specific antigen [PSA]; F43.9 Reaction to severe stress, unspecified; M54.6 Pain in thoracic spine; Z92.3 Personal history of irradiation; Z90.79 Acquired absence of other genital organ(s); Z85.46 Personal history of malignant neoplasm of prostate; Z79.899 Other long term (current) drug therapy; Z79.818 Long term (current) use of other agents affecting estrogen receptors and estrogen levels
CPT/HCPCS: 36415; 80053; 82607; 84153; 85025; 96372; 99214; J0897

== ENCOUNTER 2019-06-27 06:45 | Outpatient (RCR) | payer MEDICARE, MEDICAID, SELFPAY ==
[2019-06-24 09:45] LABS: Basophils % 1.1 %; Eosinophils # 0.1 10^3/uL (0.0-0.8); Eosinophils % 2.8 %; Hematocrit 35.7 % (42.0-52.0); Hemoglobin 11.4 g/dL (11.7-16.6); Lymphocytes # 0.6 10^3/uL (0.8-4.8); Lymphocytes % 31.3 %; Mean Corpuscular HGB Conc 31.9 g/dL (30.0-36.0); Mean Corpuscular Hemoglobin 31.5 pg (28.0-34.0); Mean Corpuscular Volume 98.6 fL (80-94); Mean Platelet Volume 10.4 fL (7.4-10.4); Monocytes # 0.4 10^3/uL (0.2-0.9); Monocytes % 20.5 %; Neutrophils % 43.7 %; Nucleated Red Blood Cells % 0 %; Platelet Count 145 10^3/cmm (130-400); Red Blood Count 3.62 10^6/uL (4.1-5.3); Red Cell Distribution Width 13.3 % (12.1-15.1); White Blood Count 1.8 10^3/uL (4.0-10.0)
[2019-06-24 10:03] LABS: Neutrophils # 0.8 10^3/uL (1.8-7.7)
[2019-06-24 10:06] LABS: Alanine Aminotransferase 18 U/L (0-41); Albumin Level 3.5 g/dL (3.5-5.2); Alkaline Phosphatase 75 IU/L (40-130); Anion Gap 12.8 (5-19); Aspartate Amino Transferase 20 U/L (0-40); Blood Urea Nitrogen 10 mg/dL (8-23); Calcium 8.9 mg/dL (8.5-10.5); Carbon Dioxide 26 mmol/L (22-29); Chloride 110 mmol/L (98-107); Globulin 3.3 g/dL (1.3-4.6); Glucose 119 mg/dL (65-115); Osmolality Calculated 297 mOsm/kg (285-295); Potassium 3.8 mmol/L (3.5-5.1); Sodium 145 mmol/L (136-145); Total Bilirubin 0.2 mg/dL (0.15-1.2); Total Protein 6.8 g/dL (6.6-8.7)
[2019-06-27] MEDS: lidocaine 1% INJ 20 mL INJECTION (09:27)
[2019-06-27] MEDS: goserelin acetate 10.8 mg Implant IM (09:39)
[2019-06-27] MEDS: denosumab 120 mg SDV SUBCUT (09:41)
[2019-06-27 09:42] LABS: Prostate Specific Antigen 50.72 ng/mL (0-4)
--- NOTE | 2019-06-27 17:59 | ONC FU_ITS ---
Dr. Monahan follow up note Patient: Charlie Jacobs Unit #: [id number]: 1945 Dicatated By: Daniel Monahan M.D.Date of Visit:June 27, 2019 Onc Med Follow-up/Prog Note History of Present Illness: Mr. 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 At that time, his PSA was 7.1 and left sided nodule biopsies showed 6 out of 12 cores positive for 3+3/3+4 HOSPITAL SCIENTIST with 20-60% involvement. He received external beam radiation therapy which he completed in March 2007. Follow-up PSA level showed good response but start increasing and peak prior to initiation of hormonal therapy was 6.1, patient underwent rebiopsy on 09/14/2009 which showed suspicious pathology but not diagnostic. Mr Jacobs was started on LHRH agonist in December 2009 with 2 weeks of Casodex. He had excellent response. PSA was undetectable till January 2012 thereafter slow rise e.g. 0.27 on 08/05/2012 and 2 in May 2013, 7 in November 2013 and 8.4 in March 2015. Bicalutamide was added. In September 2015 and later stopped after increasing PSA again. In April 2017 bilateral scrotal orchiectomy was done. But PSA continued to rise in January 2018 was around 19 and in April 2018,gone up to 39.58. At that time, he started on Casodex 50 mg by mouth daily and CT scan of abdomen pelvis was done on 04/25/2018 which showed no pelvic lymphadenopathy but nonspecific multifocal osseous sclerotic foci; descending sigmoid colon diverticulosis with the descending sigmoid colon junction short segment diverticulitis patient was treated with antibiotics. Zoladex 10.8 mg was started on 06/01/2018. In the meantime, Mr Jacobs developed a mass in the right side of his neck and further investigation led to the diagnosis of thyroid cancer. He underwent thyroidectomy with lymph node dissection- as per patient, cancer was involving lymph nodes. s/p radioactive iodine treatment in early June in [facility]. Mr. Jacobs was seen in the emergency room on 09/07/2018 for low back pain. He apparently had been having back pain for 2 weeks. It was described as intermittent dull and sharp pain sometimes radiating to the left hip. It has gotten progressively worse. The pain medication was only partly relieving it. He did have a CT of the lumbar spine on 09/07/2018. It showed progressive sclerotic metastatic disease along the posterior margin of the right L1 vertebral body, the superior endplates of L3 and L4, left L3 pedestal, sclerotic focus involving the right anterior aspect of the L5 body and sclerotic focus along the lateral margin of the right iliac bone. He was referred to Dr. Corral for consideration of palliative radiation therapy. Dr. Corral did see him the same day on 09/07/2018 and did recommend palliative radiation to the lower back to control the metastatic disease and relieve pain. He was also started on Decadron 4 mg every 6 hours for 7 days in the emergency room on 09/07/2018. Mr Jacobs received radiation therapy to the spine He received 3000 cGy total dose to the SPINE GTV30 starting 09/13/2018 and ending 10/01/2018. He then received treatment to T10 spine, ref ID: [id number] Spine to a total dose of 3000 cGy starting 02/03/2019 and ending on 02/17/2019. He has had an excellent response to the radiation with his back pain resolved. He has been on denosumab since June 10, 2018 per our chart. He continues with Zoladex with his last dose being given on March 25, 2019. He also received denosumab at that time as well. He has had significant elevation of his PSA on March 25, 2019 it was 44. On January 20, 2019 it was 29. has recommended that he pursue treatment with Zytiga/prednisone and continue the every 3-month dose of Zoladex and monthly denosumab. As per patient he went to emergency room , with hypertension and abdominal discomfort underwent CT scan of abdomen on the 04/09/2019 which showed nonspecific bibasilar groundglass opacity consistent with atelectasis edema or pneumonia. Unchanged size of sclerotic bone lesions. Avascular necrosis of right femoral head. Diverticulosis without diverticulitis. No hydronephrosis. His blood pressure was within normal range and pulse was between 90 and 100 and as per patient and his EKG did not show any abnormality. Patient was treated IV fluid and discharge home on oral antibiotic Flagyl for presumed diagnosis of diverticulitis, was referred to Dr. Fermin for GI evaluation, as per patient now colonoscopy is under consideration. His labs ER on 04/09/2019 shows white blood count 2.6 and globin 12.4 hematocrit 37 platelets 130,000 CMP within normal limits .zytiga /prednisone was discontinued by patient on 04/11/2019 because of diarrhea and hypertension, Restarted on 05/26/2019 Came for follow-up, denies any specific complaints, no fever or chills, no nausea or vomiting, no diarrhea constipation, tolerating Zytiga/prednisone well, no more diarrhea or hypertension. Also tolerating 3 monthly Zoladex. As back pain has improved significantly, now being followed by Dr. Thornton, as per patient CT scan/MRI scan of spine is under consideration. Medications: Advair Diskus 1 Puff(s) (of 100-50 mcg/dose) Aerosol Powder, Breath Activated Inhalation b.i.d. PRN, Albuterol Sulfate 1 puff(s) (of (2.5 mg/3ml) 0.083%) Nebulization solution Inhalation four times a day, Alfuzosin HCl ER 1 Tablet (of 10 mg) Tablet SR 24 HR Oral at bedtime, Aspirin 1 Tablet (of 81 mg) Oral daily, Atorvastatin Calcium 1 Tablet (of 80 mg) Oral daily, Belsomra 1 Tablet (of 15 mg) Oral at bedtime PRN, Cetirizine HCl 1 Tablet (of 10 mg) Oral daily, Cyclobenzaprine HCl 0.5 - 1 Tablet (of 10 mg) Oral t.i.d. PRN, Esomeprazole Magnesium 1 Capsule (of 40 mg) Capsule Delayed Release Oral daily, HYDROcodone-Acetaminophen 1 Tablet (of 10-325 mg) Oral four times a day PRN, Ipratropium-Albuterol 1 puff(s) (of 0.5-2.5 (3) mg/3ml) Solution Inhalation q 4 hours PRN, Januvia 1 Tablet (of 25 mg) Oral daily, Levothyroxine Sodium 1 Tablet (of 175 mcg) Oral daily, Lisinopril 0.5 Tablet (of 20 mg) Oral daily, Metoprolol Succinate ER 1 Tablet (of 25 mg) Tablet SR 24 HR Oral daily, Mirtazapine 1 Tablet (of 7.5 mg) Oral daily, Montelukast Sodium 1 Tablet (of 10 mg) Oral daily, Nitroglycerin 1 Tablet (of 0.4 mg) Tablet, sublingual Sublingual PRN, ProAir HFA 1 puff(s) (of 108 (90 base) mcg/act) Aerosol, solution Inhalation q 4 hours PRN, Probiotic Digestive Support 1 Capsule Oral daily, Xgeva 1 Subcutaneous q 30 days, Zetia 1 Tablet (of 10 mg) Oral daily, Zoladex (10.8 mg) Subcutaneous q 12 weeks Allergies: Vancomycin HCl Review of Systems: Constitutional - Appetite and weight are stable. No fever, chills, hot flashes or night sweats. Energy level is good, ENMT - Negative for sinus congestion. No mouth sores. No sore throat or difficulty swallowing, Hematologic/Lymphatic - No abnormal bruising or bleeding, Respiratory - No shortness of breath. No cough. No pleuritic pain or hemoptysis, Cardiovascular - No angina pain. No palpitations, Gastrointestinal - Pt denies nausea. No heartburn or acid reflux. Positive for diarrhea. No constipation. No blood in the stool or black stools, Musculoskeletal - Pt reports chronic back pain, Neurologic - No headache. Positive for dizziness. Pt reports numbness in feet, Psychiatric - No anxiety or depression. No insomnia. Vital Signs: Performed on June 27, 2019 08:45 Height - 75.00 in Weight - 226 lbs (HIGH) BSA - 2.31 sq.m BMI - 28.25 Temperature - 98.0 F (LOW) Pulse - 75 /min Respiration - 18 /min BP - 147/79 mm(hg) (HIGH) O2 Sat - 94 % (LOW) Pain - 0 Performance Status: 0 - Fully active, able to carry on all predisease activities without restrictions. (ECOG) Physical Examination: ENMT - no mouth sores, Respiratory - Lungs are clear, Cardiovascular - Regular rate and rhythm of heart, Abdomen - bowel sounds present, Extremities - no edema or rash. Lab/Imaging: Test performed on June 24, 2019 09:28 Sodium 145 mmol/L Potassium 3.8 mmol/L Chloride 110 mmol/L CO2 26 mmol/L Anion Gap 12.8 BUN 10 mg/dL Creatinine 0.7 mg/dL Cr Clearance (Est) 130.5600 mL/min Glucose 119 mg/dL Calcium 8.9 mg/dL Protein, Total 6.8 g/dL Albumin 3.5 g/dL Globulin 3.3 g/dL Bilirubin, Total 0.2 mg/dL ALT (SGPT) 18 U/L AST (SGOT) 20 U/L Alkaline Phosphatase 75 IU/L WBC 1.8 10 3/uL RBC 3.62 10 6/uL HGB 11.4 g/dL HCT 35.7 % MCV 98.6 fL MCH 31.5 pg MCHC 31.9 g/dL RDW 13.3 % Platelet Count 145 10 3/cmm MPV 10.4 fL Neutrophils 0.8 10 3/uL Lymphocytes 0.6 10 3/uL Monocytes 0.4 10 3/uL Eosinophils 0.1 10 3/uL Basophils 0.0 10 3/uL Neutrophil % 43.7 % Lymphocyte % 31.3 % Monocyte % 20.5 % Eosinophil % 2.8 % Basophils % 1.1 % PSA 50.72 ng/mL Test performed on May 25, 2019 08:25 Vitamin B12 261 pg/mL Test performed on Apr 19, 2019 09:43 Testosterone 2.5 ng/dL TSH 0.01 uU/mL Cholesterol, Total 119 mg/dL HDL Cholesterol 37 mg/dL LDL Cholesterol 71 mg/dL Triglycerides 57 mg/dL Manual Lymphocytes 20.3 % Manual Monocytes 19.2 % Manual Eosinophils 2.3 % Manual Basophils 0.6 % Test performed on Mar 16, 2019 09:25 T4, Free 2.38 ng/dL Test performed on Jan 20, 2019 10:10 CBC Slide Review SLIDE REVIEW PERFORM SLIDE REVIEW AGREES WITH AUTOMATED RESULTS ST Impression: Biochemical recurrence, CT scan of abdomen pelvis done on 04/25/2018 showed sclerotic lesions in the pelvic bones no pelvic lymphadenopathy or abnormal mass. History of prostrate cancer initially diagnosed in 2006 at that time his PSA was 7.1 and left-sided nodule biopsy showed 6 out of 12 cores positive for 3+3/3+ for HOSPITAL SCIENTIST with 20-60% involvement status post external beam radiation therapy completed in March 2007 Follow-up PSA showed excellent response till 2009 when PSA started going up underwent rebiopsy of prostate on 09/14/2009 which was nondiagnostic but suspicious for malignancy. Started on LHRH agonist in December 2009 2 weeks of Casodex, excellent response PSA become undetectable still January 2012 with slow rise thereafter e.g. 0.27 on 08/05/2012, 2 in May 2013, 7 in November 2013, 8.4 in March 2015 bicalutamide was admitted in September 2015 later stopped after PSA continued to go up, subsequently underwent bilateral scrotal orchiectomy in April 2017 PSA continued to rise around 20 on 01/28/2018 for the gone up to 39.58 in April 2018, at that time Casodex 50 mg by mouth was started and patient was referred to medical oncology clinic Zoladex 10.8 mg every 3 months started on 06/01/2018 Bone scan done on 06/01/2018 showed L3 and L4 vertebral body increased activity corresponding to the prior CT sclerosis. Left T10 and T7 lateral vertebral body or facet increase activity you from prior exam done in December 2006,. New right lateral posterior ninth rib focus of increased activity. did see Mr. Jacobs in August 2018 at which time Mr. Jacobs was having moderate to severe distress with progressive lower back pain. He was sent to the emergency room for evaluation for possible metastatic disease or prolapse/collapsed vertebra. His PSA at that time was 34.24 and his testosterone was 19.9. New right sixth and eighth anterior lateral rib focus of increased activity. Recently diagnosed with thyroid cancer status post thyroidectomy with lymph node dissection now radioactive iodine therapy was under consideration as of June 2018. Mr. Jacobs was seen in the emergency room on 09/07/2018 for low back pain. He apparently been having back pain for 2 weeks. It was described as intermittent dull and sharp pain sometimes radiating to the left hip. It has gotten progressively worse. The pain medication was only partly relieving it. He did have a CT of the lumbar spine on 09/07/2018. It showed progressive sclerotic metastatic disease along the posterior margin of the right L1 vertebral body, the superior endplates of L3 and L4, left L3 pedestal, sclerotic focus involving the right anterior aspect of the L5 body and sclerotic focus along the lateral margin of the right iliac bone. He was referred to Dr. Corral for consideration of palliative radiation therapy. Dr. Corral did see him the same day on 09/07/2018. And did recommend palliative radiation to the lower back to control the metastatic disease in relieve pain. He was also started on Decadron 4 mg every 6 hours for 7 days in the emergency room on 09/07/2018. Mr Jacobs received radiation therapy to the spine He received 3000 cGy total dose to the SPINE GTV30 starting 09/13/2018 and ending 10/01/2018. He then received treatment to T10 spine, ref ID: T10 Spine to a total dose of 3000 cGy starting 02/03/2019 and ending on 02/17/2019. He has had an excellent response to the radiation with his back pain resolved. He has been on denosumab since June 10, 2018 per our chart. He continues with Zoladex with his last dose being given on March 25, 2019. He also received denosumab at that time as well. Mr. Jacobs is here today to begin further treatment for his disease progression. He has had significant elevation of his PSA on March 25, 2019 it was 44. On January 20, [address] Monahan has recommended that he pursue treatment with Zytiga/prednisone and continue the every 3-month dose of Zoladex and monthly denosumab. Plan: Discussed with patient regarding his labs white blood count 1.8 hemoglobin 11.4 crit 35.7 platelets 145,000 CMP within normal limits, PSA is pending Clinically, patient is doing well, tolerating 3 monthly Zoladex well. We'll proceed with his next 3 monthly dose and monthly dose of Xgeva today Earlier, Zytiga/prednisone was put on hold because of diarrhea and hypertension but last month he was rechallenged, as per patient he has been tolerated well. If his repeat PSA level shows improvement, then will continue otherwise we may switch him to enzalutamide. As for his leukopenia is concern, etiology unclear could be due to radioactive iodine given for thyroid cancer. He was scheduled for bone marrow evaluation earlier, but due to coronavirus issues it was postponed, we will reschedule. He'll return to clinic in one month with CBC and PSA and for Xgeva Signed By: Daniel Monahan M.D. <<Signature on File>>
== END 2019-06-27 23:59 | disposition home or self-care (01) ==
LOC: ONCMED 06:45
PROVIDERS: PCP Family Medicine; Visit Provider Internal Medicine Hematology & Oncology
DX: C61 Malignant neoplasm of prostate (principal); C79.51 Secondary malignant neoplasm of bone; C73 Malignant neoplasm of thyroid gland; E89.0 Postprocedural hypothyroidism; D72.819 Decreased white blood cell count, unspecified; Z79.818 Long term (current) use of other agents affecting estrogen receptors and estrogen levels; Z79.899 Other long term (current) drug therapy
CPT/HCPCS: 80053; 84153; 85025; 96372; 96402; 99214; J0897; J2001; J9202

== ENCOUNTER 2019-06-27 13:33 | Outpatient (CLI) | payer MEDICARE, MEDICAID, SELFPAY ==
--- NOTE | 2019-06-27 14:00 | CT_ITS ---
WS: [id number] CT LUMBAR SPINE TECHNIQUE: Noncontrast CT of the lumbar spine with coronal and sagittal reformatted images. CLINICAL INFORMATION: Low back pain COMPARISON: MRI January 25, [address] September 07, 2018 DLP: 2277.[address] scans at [facility] use at least one of these dose optimization techniques: automat ed exposure control; mA and/or kV adjustment per patient size (includes targeted exams where dose is matched to clinical indication); or iterative reconstruction. FINDINGS: Again seen are multiple blastic lesions slightly progressed compared to the prior examination. L1 lesion has increased in size since the prior examination measuring 8.2 mm today. L5 lesion is slig htly larger today. Increased sclerosis involving the L3 and L4 superior endplate lesions. New tiny bl astic lesion involving the L2 vertebral body. Stable L3 pedicle lesion. Right iliac lesion adjacent t o the SI joint also slightly progressed. Hypertrophic changes with ankylosis both sacroiliac joints. L1-L2: No significant disc bulging. Mild right foraminal narrowing. Moderate facet arthropathy. L2-L3: Mild disc bulging with moderate central canal stenosis. Moderate facet arthropathy. Foramen ar e patent. L3-L4: Moderate to severe central canal stenosis with disc bulging and facet arthropathy ligament fla vum hypertrophy. Mild right foraminal narrowing. Advanced facet arthropathy. L4-L5: Moderate to severe central canal stenosis. Advanced facet arthropathy. Mild bilateral foramina l narrowing. L5-S1: No significant disc bulging. Moderate facet arthropathy. Spinal canal and foramen are patent. Partially visualized left renal cyst. Aortic calcification. CT/CT lumbar spine wo con* [id number] IMPRESSION: 1. Slightly progressed blastic metastatic lesions in the lumbar spine describe d above. 2. Chronic central canal stenosis due to spondylitic changes unchanged. 3. Moderate to severe central canal stenosis L3-L4 and L4-L5. 4. Advanced facet arthropathy L3-L4 and L4-L5.
--- NOTE | 2019-06-27 14:15 | CT_ITS ---
WS: [id number] CT THORACIC SPINE TECHNIQUE: Noncontrast CT of the thoracic spine with coronal and sagittal reformatted images. CLINICAL INFORMATION: Thoracic back pain COMPARISON: None. DLP: 1068.[address] scans at [facility] use at least one of these dose optimization techniques: automat ed exposure control; mA and/or kV adjustment per patient size (includes targeted exams where dose is matched to clinical indication); or iterative reconstruction. FINDINGS: Moderate thoracic kyphosis. Anterior hypertrophic changes thoracic spine. Alignment is unchanged sin e January 24, 2019. No acute appearing compression fractures. Again seen is blastic metastatic disease involving the left seventh rib, left T10 pedicle extending i nto the lamina and transverse process unchanged. Small blastic metastatic lesions are unchanged T1 an d T9. Small blastic lesion anterior left T4 vertebral body measuring 5 mm. Additional tiny punctate blastic lesions scattered throughout the thoracic spine Moderate spondylitic changes thoracic spine. No high-grade central canal stenosis. Mild central canal narrowing at T10-11 unchanged. Moderate right T10-11 bony foraminal narrowing. Moderate facet arthro jacqueline lower thoracic spine. CT/CT thoracic spin wo con* [id number] IMPRESSION: 1. Previously described blastic metastatic lesions described above are unchang ed. 2. No high-grade central canal stenosis. 3. Mild central canal narrowing T10-11 unchanged. 4. No acute appearing compression fractures.
== END 2019-06-27 13:34 | disposition home or self-care (01) ==
LOC: RADWPI 13:36
PROVIDERS: PCP Family Medicine; Visit Provider Licensed Practical Nurse
DX: M54.6 Pain in thoracic spine (principal); M54.5 Low back pain; M48.061 Spinal stenosis, lumbar region without neurogenic claudication; M47.816 Spondylosis without myelopathy or radiculopathy, lumbar region
CPT/HCPCS: 72128; 72131

== ENCOUNTER 2019-06-30 09:16 | Outpatient (CLI) | payer MEDICARE, MEDICAID, SELFPAY ==
[2019-06-30 10:16] LABS: Thyroid Stimulating Hormone 0.01 uIU/mL (0.27-4.20)
== END 2019-06-30 09:17 | disposition home or self-care (01) ==
LOC: LAB 09:21
PROVIDERS: PCP Family Medicine; Visit Provider Internal Medicine Endocrinology, Diabetes & Metabolism
DX: C73 Malignant neoplasm of thyroid gland (principal); C77.0 Secondary and unspecified malignant neoplasm of lymph nodes of head, face and neck; E89.0 Postprocedural hypothyroidism
CPT/HCPCS: 36415; 84443

== ENCOUNTER 2019-07-05 13:06 | Outpatient (RCR) | payer MEDICARE, MEDICAID, SELFPAY | END 2019-07-10 23:59 | disposition home or self-care (01) | LOC: SPT 13:06 | PROVIDERS: PCP Family Medicine; Referring Provider Specialist; Visit Provider Specialist | DX: M48.062 Spinal stenosis, lumbar region with neurogenic claudication (principal) | CPT/HCPCS: 97110; 97161 ==

== ENCOUNTER 2019-07-07 09:14 | Day surgery (SDC) | payer MEDICARE, MEDICAID, SELFPAY ==
[2019-07-06 16:26] VITALS: BMI 28.4
[2019-07-07 09:40] VITALS: BP 117/76; PULSE 54; RESP 18; TEMP 36.6; O2SAT 95
[2019-07-07 10:01] LABS: Glucose Point of Care 128 mg/dL (70-110)
[2019-07-07] MEDS: sodium chloride 0.9% 1,000 ML 30 ML IV (10:08)
--- NOTE | 2019-07-07 10:08 | ANES.PREANE2 ---
Pre-Anesthetic Assessment Pre-Anesthetic Assessment: Height/Weight: Height 1.91 m Weight 103.192 kg Temp Pulse Resp BP Pulse Ox 97.8 F 54 L 18 117/76 95 07/07/19 09:40 07/07/19 09:40 07/07/19 09:40 07/07/19 09:40 07/07/19 09:40 Proposed Procedure: Operation Date: 07/07/19 11:00 Proposed Procedures p Bone Marrow Biopsy with aspiration(Not Applicable) - Daniel Monahan MD Last intake: Intake Last Liquid Date 07/06/19 Last Liquid Time 21:30 Last Solid Date 07/06/19 Last Solid Time 21:30 Social: Social History: Tobacco and No alcohol Exam: Pre-Anes Outpt Exam: alert, oriented x 3, clear to auscultation bilaterally and regular rate & rhythm Airway: Submandibular: WNL Cervical ROM: WNL MP: 2 Dentition: Other (edenturless) History/ROS: No significant history except as noted Pulmonary: Pulmonary: COPD and MENDEZ CV/HEM: CV/HEM: HTN : : None reported Hepatic: Hepatic: None reported GI: GI: GERD (controlled) Metabolic: Metabolic: DM, Hyperlipidemia and Thyroid Musc/skel: Musc/skel: Lower Back Pain and OA/DJD Comments: bone CA Neuropsych: Neuropsych: None reported Anesthetic Plan: ASA status: 3 Anesthesia: Anesthesia Evaluation and MAC Risk of > 500 ml blood loss (7ml/kg in children): No PFSH Anesthesia PFSH: Medical History Benign essential HTN BPH with obstruction/lower urinary tract symptoms COPD (chronic obstructive pulmonary disease) Dyslipidemia GERD (gastroesophageal reflux disease) History of thyroid cancer Hypogonadism in male Insomnia Intervertebral disc disorder with radiculopathy of lumbosacral region Lumbar stenosis with neurogenic claudication Metastasis to bone Metastatic bone cancer 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 Prostate cancer Type 2 diabetes mellitus, without long-term current use of insulin Surgical History H/O hernia repair H/O total knee replacement History of colonoscopy (~2010) History of hemorrhoidectomy History of orchiectomy, bilateral History of thyroidectomy, subtotal History of uvulectomy Family History Mother Cancer Diabetes Sister Diabetes Other CAD (coronary artery disease) Social History Smoking and tobacco status: current every day smoker cigarettes Packs smoked per day: 0.5 Alcohol intake: never Lives independently: Yes Household members: spouse Marital status: Current occupational status: retired History of recent travel: No Data Anesthesia Other Labs: Laboratory Results - last 48 hr 07/07/19 09:56 POC Glucose 128 Cardiac Studies: No Data to Display
[2019-07-07 10:12] LABS: Basophils % 0.3 %; Eosinophils # 0.1 10^3/uL (0.0-0.8); Eosinophils % 1.9 %; Hematocrit 38.7 % (42.0-52.0); Hemoglobin 12.7 g/dL (11.7-16.6); Lymphocytes # 0.5 10^3/uL (0.8-4.8); Lymphocytes % 16.7 %; Mean Corpuscular HGB Conc 32.8 g/dL (30.0-36.0); Mean Corpuscular Hemoglobin 32.2 pg (28.0-34.0); Mean Platelet Volume 10.7 fL (7.4-10.4); Monocytes # 0.6 10^3/uL (0.2-0.9); Neutrophils # 2.1 10^3/uL (1.8-7.7); Neutrophils % 63.8 %; Nucleated Red Blood Cells % 0 %; Platelet Count 139 10^3/cmm (130-400); Red Blood Count 3.95 10^6/uL (4.1-5.3); White Blood Count 3.2 10^3/uL (4.0-10.0)
[2019-07-07 11:56] VITALS: BP 114/62; PULSE 58; RESP 18; TEMP 36.3; O2SAT 95
[2019-07-07 11:57] VITALS: BP 114/68; PULSE 56; RESP 18; O2SAT 94
--- NOTE | 2019-07-07 12:15 | P.PCN_ITS ---
Bone Marrow Biopsy Bone Marrow Biopsy: I was consulted by [] [facility] Briefly, the patient is a [[age]] year old [male] with [leukopenia]. In the Outpatient Services Department, with nursing staff and laboratory technologists in attendance, the procedure was discussed with the patient. Appropriate consent form had been signed. Appropriate alternatives, benefits and risks of procedure were discussed with the patient and he was pre- operatively assessed with a history and physical by myself and cleared for the biopsy procedure. The patient did request IV sedation and that was provided by the Anesthesia Department. Under aseptic condition, right posterior iliac area was cleaned and prepped,, local anesthesia was given,, about 12 cc of bone marrow aspirate and core biopsy was obtained and specimen was sent for routine histopathology, flow cytometry cytogenetics and MDS panel, postprocedure nursing instructions were given Thank you for allowing me to participate in this patient's care and diagnosis. Coding Level of Care Code Acute Post Acute Care Registered Nurse for Gale Callahan
== END 2019-07-07 12:20 | disposition home or self-care (01) ==
PROVIDERS: PCP Family Medicine; Visit Provider Internal Medicine Hematology & Oncology
PROC: (CPT 38221; principal; 2019-07-07 11:00)
DX: D72.819 Decreased white blood cell count, unspecified (principal); I10 Essential (primary) hypertension; K21.9 Gastro-esophageal reflux disease without esophagitis; E11.9 Type 2 diabetes mellitus without complications; E78.5 Hyperlipidemia, unspecified; M19.90 Unspecified osteoarthritis, unspecified site; N40.1 Benign prostatic hyperplasia with lower urinary tract symptoms; Z85.46 Personal history of malignant neoplasm of prostate; Z85.830 Personal history of malignant neoplasm of bone
CPT/HCPCS: 12345; 36416; 38222; 82962; 85025; 88305; J7030

== ENCOUNTER 2019-07-12 07:18 | Day surgery (SDC) | payer MEDICARE, MEDICAID, SELFPAY ==
[2019-07-11 12:02] VITALS: BMI 28.1
[2019-07-12 07:33] VITALS: BP 128/81; PULSE 69; RESP 20; TEMP 36.6; O2SAT 95
[2019-07-12] MEDS: sodium chloride 0.9% 1,000 ML 30 ML IV (07:48)
[2019-07-12 07:51] LABS: Glucose Point of Care 93 mg/dL (70-110)
--- NOTE | 2019-07-12 08:08 | ANES.PREANE2 ---
Pre-Anesthetic Assessment Pre-Anesthetic Assessment: Height/Weight: Height 1.91 m Weight 102.058 kg Temp Pulse Resp BP Pulse Ox 97.9 F 69 20 H 128/81 95 07/12/19 07:33 07/12/19 07:33 07/12/19 07:33 07/12/19 07:33 07/12/19 07:33 Preop Diagnosis: Recurrent diverticulitis Proposed Procedure: Operation Date: 07/12/19 08:45 Proposed Procedures p [id number](Not Applicable) - Lele Fermin MD Last intake: Intake Last Liquid Date 07/11/19 Last Liquid Time 20:00 Last Solid Date 07/10/19 Last Solid Time 18:00 Social: Social History: Tobacco and No alcohol Exam: Pre-Anes Outpt Exam: alert, oriented x 3, clear to auscultation bilaterally and regular rate & rhythm Additional Exam Findings (including area of procedure): lungs course bilat Airway: Submandibular: WNL Cervical ROM: WNL MP: 1 Dentition: False (upper and lower) History/ROS: No significant history except as noted Pulmonary: Pulmonary: COPD and MENDEZ CV/HEM: CV/HEM: HTN : : None reported Hepatic: Hepatic: None reported GI: GI: GERD (controlled) Metabolic: Metabolic: DM, Hyperlipidemia and Thyroid Musc/skel: Musc/skel: OA/DJD Neuropsych: Neuropsych: None reported Anesthetic Plan: ASA status: 3 Anesthesia: Anesthesia Evaluation and MAC Risk of > 500 ml blood loss (7ml/kg in children): No Meds/Allergies Current Medications: Current Medications Generic Name Dose Route Start Last Admin Trade Name Freq PRN Reason Stop Dose Admin Sodium Chloride 1,000 mls @ 30 ml s/hr 07/12/19 07:45 07/12/19 07:48 Sodium Chloride 0.9% IV 07/13/19 07:44 30 mls/hr .Q24H EVAN Administration PFSH Anesthesia PFSH: Medical History Benign essential HTN BPH with obstruction/lower urinary tract symptoms COPD (chronic obstructive pulmonary disease) Dyslipidemia GERD (gastroesophageal reflux disease) History of thyroid cancer Hypogonadism in male Insomnia Intervertebral disc disorder with radiculopathy of lumbosacral region Lumbar stenosis with neurogenic claudication Metastasis to bone Metastatic bone cancer 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 Prostate cancer Type 2 diabetes mellitus, without long-term current use of insulin Surgical History H/O hernia repair H/O total knee replacement History of colonoscopy (~2010) History of hemorrhoidectomy History of orchiectomy, bilateral History of thyroidectomy, subtotal History of uvulectomy Family History Mother Cancer Diabetes Sister Diabetes Other CAD (coronary artery disease) Social History Smoking and tobacco status: current every day smoker cigarettes Packs smoked per day: 0.5 Alcohol intake: never Lives independently: Yes Household members: spouse Marital status: Current occupational status: retired History of recent travel: No Data Anesthesia Other Labs: Laboratory Results - last 48 hr 07/12/19 07:43 POC Glucose 93 Cardiac Studies: No Data to Display
--- NOTE | 2019-07-12 08:34 | W.PM.OPSFHP ---
Same Day Surgery H&P Indication for Procedure/HPI DATE OF PROCEDURE: July 12, 2019 CHIEF COMPLAINT/INDICATIONFOR SURGICAL PROCEDURE: diverticulitis PREOP DIAGNOSIS: Recurrent diverticulitis PLANNED PROCEDRUE: Operation Date: 07/12/19 08:45 Proposed Procedures p [id number](Not Applicable) - Lele Fermin MD Medications/Allergies* Home Medications Medication Instructions Recorded Confirmed Type albuterol sulfate 90 mcg/actuation 2 puff INHALATION Q6H PRN 03/29/19 07/11/19 History aerosol inhaler aspirin 81 mg tablet,delayed 81 mg PO DAILY 03/29/19 07/11/19 History release atorvastatin 80 mg tablet 80 mg PO DAILY 03/29/19 07/11/19 History cetirizine 10 mg capsule 10 mg PO DAILY cap 03/29/19 07/11/19 History cyclobenzaprine 10 mg tablet 10 mg PO TID 03/29/19 07/11/19 History denosumab 120 mg/1.7 mL (70 mg/mL) 120 mg SUBCUT Q30D 03/29/19 07/11/19 History subcutaneous solution ezetimibe 10 mg tablet 10 mg PO DAILY 03/29/19 07/11/19 History fluticasone 500 mcg-salmeterol 50 1 inh INHALATION Q12H 03/29/19 07/11/19 History mcg/dose blistr powdr for inhalation goserelin 10.8 mg subcutaneous 10.8 mg SUBCUT Q90D each 03/29/19 07/11/19 History implant hydrocodone 10 mg-acetaminophen 1 tab PO QID PRN tab 03/29/19 07/11/19 History 325 mg tablet ipratropium 0.5 mg-albuterol 3 mg 3 ml INHALATION QID PRN 03/29/19 07/11/19 History (2.5 mg base)/3 mL nebulization soln levothyroxine 175 mcg capsule 175 mcg PO DAILY 03/29/19 07/11/19 History mirtazapine 7.5 mg tablet 15 mg PO DAILY 03/29/19 07/11/19 History nitroglycerin 0.4 mg sublingual 0.4 mg SUBLINGUAL Q5M PRN 03/29/19 07/11/19 History tablet alfuzosin 10 mg PO DAILY 02/29/20 06/01/20 History prednisone 5 mg tablet 5 mg PO BID PRN 06/13/19 07/11/19 History Allergies/Adverse Reactions Allergy/AdvReac Type Severity Reaction Status Date / Time vancomycin Allergy HIVES,RASH Verified 06/29/19 13:38 Current Medications: Generic Name Dose Route Start Last Admin Trade Name Freq PRN Reason Stop Dose Admin Sodium Chloride 1,000 mls @ 30 mls/hr 07/12/19 07:45 07/12/19 07:48 Sodium Chloride 0.9% IV 07/13/19 07:44 30 mls/hr .Q24H EVAN Administration Pertinent History/Comorbid Conditions* Medical History (Updated 06/29/19 @ 14:01 by Nasir Thornton MD) Benign essential HTN BPH with obstruction/lower urinary tract symptoms COPD (chronic obstructive pulmonary disease) Dyslipidemia GERD (gastroesophageal reflux disease) History of thyroid cancer Hypogonadism in male Insomnia Intervertebral disc disorder with radiculopathy of lumbosacral region Lumbar stenosis with neurogenic claudication Metastasis to bone Metastatic bone cancer 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 Prostate cancer Type 2 diabetes mellitus, without long-term current use of insulin Surgical History (Updated 04/08/19 @ 09:40 by Lele Fermin MD) H/O hernia repair H/O total knee replacement History of colonoscopy (~2010) History of hemorrhoidectomy History of orchiectomy, bilateral History of thyroidectomy, subtotal History of uvulectomy Family History (Updated 06/13/19 @ 13:07 by Loni James LPN) Diabetes Mother Sister CAD (coronary artery disease) Cancer Mother Social History Smoking and tobacco status: current every day smoker cigarettes Packs smoked per day: 0.5 Alcohol intake: never Lives independently: Yes Household members: spouse Marital status: Current occupational status: retired History of recent travel: No Pertinent Exam Findings alert, oriented x 3 and regular rate & rhythm Recommendations Surgery/Procedure today Coding Level of Care Code Acute Casting Tester for Gale Callahan
[2019-07-12 08:58] VITALS: BP 122/64; PULSE 52; RESP 16; TEMP 36.2; O2SAT 96
--- NOTE | 2019-07-12 09:01 | ANE.PACU2 ---
Inpatient post-anesthesia follow up: Airway intact: Yes Vital signs: Temperature 97.9 F Pulse Rate 69 Respiratory Rate 20 Blood Pressure 128/81 Pulse Oximetry 95 Oxygen Delivery Me thod Room Air Oxygen Flow Rate Fraction of Inspir ed Oxygen Hydration adequate: Yes Nausea and vomiting: No Pain level: 1 Mental status: Baseline
[2019-07-12 09:11] VITALS: BP 129/69; PULSE 50; RESP 18; O2SAT 96
== END 2019-07-12 09:25 | disposition home or self-care (01) ==
PROVIDERS: PCP Family Medicine; Visit Provider Surgery
PROC: 0DJD8ZZ Inspection of Lower Intestinal Tract, Via Natural or Artificial Opening Endoscopic (ICD-10-PCS; CPT 45378; principal; 2019-07-12 08:45)
DX: K57.30 Diverticulosis of large intestine without perforation or abscess without bleeding (principal); J44.9 Chronic obstructive pulmonary disease, unspecified; I10 Essential (primary) hypertension; K21.9 Gastro-esophageal reflux disease without esophagitis; E11.9 Type 2 diabetes mellitus without complications; E78.5 Hyperlipidemia, unspecified; M19.90 Unspecified osteoarthritis, unspecified site; N40.1 Benign prostatic hyperplasia with lower urinary tract symptoms; N13.8 Other obstructive and reflux uropathy; F17.210 Nicotine dependence, cigarettes, uncomplicated
CPT/HCPCS: 12345; 36416; 45378; 82962; J2704; J7030

== ENCOUNTER → 2019-07-14 10:16 | Outpatient (BNVA) | payer MEDICARE, MEDICAID, SELFPAY | PROVIDERS: PCP Family Medicine; Visit Provider Family Medicine | DX: E11.9 Type 2 diabetes mellitus without complications (principal); E78.5 Hyperlipidemia, unspecified; F17.219 Nicotine dependence, cigarettes, with unspecified nicotine-induced disorders | CPT/HCPCS: 83036 ==

== ENCOUNTER 2019-07-27 09:29 | Outpatient (CLI) | payer MEDICARE, MEDICAID, SELFPAY ==
[2019-07-27 10:10] LABS: Basophils % 0.9 %; Eosinophils % 1.8 %; Hematocrit 37.2 % (42.0-52.0); Hemoglobin 12.1 g/dL (11.7-16.6); Lymphocytes # 0.5 10^3/uL (0.8-4.8); Lymphocytes % 24.4 %; Mean Corpuscular HGB Conc 32.5 g/dL (30.0-36.0); Mean Corpuscular Hemoglobin 31.9 pg (28.0-34.0); Mean Corpuscular Volume 98.2 fL (80-94); Mean Platelet Volume 10.9 fL (7.4-10.4); Monocytes # 0.4 10^3/uL (0.2-0.9); Monocytes % 16.3 %; Neutrophils # 1.3 10^3/uL (1.8-7.7); Neutrophils % 56.6 %; Nucleated Red Blood Cells % 0 %; Platelet Count 133 10^3/cmm (130-400); Red Blood Count 3.79 10^6/uL (4.1-5.3); Red Cell Distribution Width 13.2 % (12.1-15.1); White Blood Count 2.2 10^3/uL (4.0-10.0)
== END 2019-07-27 09:30 | disposition home or self-care (01) ==
LOC: ONCMED 09:34
PROVIDERS: PCP Family Medicine; Visit Provider Internal Medicine Hematology & Oncology
DX: C61 Malignant neoplasm of prostate (principal); C79.51 Secondary malignant neoplasm of bone; C73 Malignant neoplasm of thyroid gland
CPT/HCPCS: 36415; 84153; 85025

== ENCOUNTER 2019-07-28 12:30 | Outpatient (CLI) | payer MEDICARE, MEDICAID, SELFPAY ==
[2019-07-28] MEDS: denosumab 120 mg SDV SUBCUT (13:50)
--- NOTE | 2019-07-28 14:04 | ONC FU_ITS ---
Dr. Monahan follow up note Patient: Charlie Jacobs Unit #: [id number]: 1945 Dicatated By: Daniel Monahan M.D.Date of Visit:Jul 28, 2019 Onc Med Follow-up/Prog Note History of Present Illness: Mr. 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 At that time, his PSA was 7.1 and left sided nodule biopsies showed 6 out of 12 cores positive for 3+3/3+4 STEEL RULE DIE [employer]ER with 20-60% involvement. He received external beam radiation therapy which he completed in March 2007. Follow-up PSA level showed good response but start increasing and peak prior to initiation of hormonal therapy was 6.1, patient underwent rebiopsy on 09/14/2009 which showed suspicious pathology but not diagnostic. Mr Jacobs was started on LHRH agonist in December 2009 with 2 weeks of Casodex. He had excellent response. PSA was undetectable till January 2012 thereafter slow rise e.g. 0.27 on 08/05/2012 and 2 in May 2013, 7 in November 2013 and 8.4 in March 2015. Bicalutamide was added. In September 2015 and later stopped after increasing PSA again. In April 2017 bilateral scrotal orchiectomy was done. But PSA continued to rise in January 2018 was around 19 and in April 2018,gone up to 39.58. At that time, he started on Casodex 50 mg by mouth daily and CT scan of abdomen pelvis was done on 04/25/2018 which showed no pelvic lymphadenopathy but nonspecific multifocal osseous sclerotic foci; descending sigmoid colon diverticulosis with the descending sigmoid colon junction short segment diverticulitis patient was treated with antibiotics. Zoladex 10.8 mg was started on 06/01/2018. In the meantime, Mr Jacobs developed a mass in the right side of his neck and further investigation led to the diagnosis of thyroid cancer. He underwent thyroidectomy with lymph node dissection- as per patient, cancer was involving lymph nodes. s/p radioactive iodine treatment in early June in [facility]. Mr. Jacobs was seen in the emergency room on 09/07/2018 for low back pain. He apparently had been having back pain for 2 weeks. It was described as intermittent dull and sharp pain sometimes radiating to the left hip. It has gotten progressively worse. The pain medication was only partly relieving it. He did have a CT of the lumbar spine on 09/07/2018. It showed progressive sclerotic metastatic disease along the posterior margin of the right L1 vertebral body, the superior endplates of L3 and L4, left L3 pedestal, sclerotic focus involving the right anterior aspect of the L5 body and sclerotic focus along the lateral margin of the right iliac bone. He was referred to Dr. Corral for consideration of palliative radiation therapy. Dr. Corral did see him the same day on 09/07/2018 and did recommend palliative radiation to the lower back to control the metastatic disease and relieve pain. He was also started on Decadron 4 mg every 6 hours for 7 days in the emergency room on 09/07/2018. Mr Jacobs received radiation therapy to the spine He received 3000 cGy total dose to the SPINE GTV30 starting 09/13/2018 and ending 10/01/2018. He then received treatment to T10 spine, ref ID: [id number] Spine to a total dose of 3000 cGy starting 02/03/2019 and ending on 02/17/2019. He has had an excellent response to the radiation with his back pain resolved. He has been on denosumab since June 10, 2018 per our chart. He continues with Zoladex with his last dose being given on March 25, 2019. He also received denosumab at that time as well. He has had significant elevation of his PSA on March 25, 2019 it was 44. On January 20, 2019 it was 29. has recommended that he pursue treatment with Zytiga/prednisone and continue the every 3-month dose of Zoladex and monthly denosumab. As per patient he went to emergency room , with hypertension and abdominal discomfort underwent CT scan of abdomen on the 04/09/2019 which showed nonspecific bibasilar groundglass opacity consistent with atelectasis edema or pneumonia. Unchanged size of sclerotic bone lesions. Avascular necrosis of right femoral head. Diverticulosis without diverticulitis. No hydronephrosis. His blood pressure was within normal range and pulse was between 90 and 100 and as per patient and his EKG did not show any abnormality. Patient was treated IV fluid and discharge home on oral antibiotic Flagyl for presumed diagnosis of diverticulitis, was referred to Dr. Fermin for GI evaluation, as per patient now colonoscopy is under consideration. His labs ER on 04/09/2019 shows white blood count 2.6 and globin 12.4 hematocrit 37 platelets 130,000 CMP within normal limits .zytiga /prednisone was discontinued by patient on 04/11/2019 because of diarrhea and hypertension, Restarted on 05/26/2019 CT scan of thoracic lumbar spine done on June 27, 2019 showed no changes in thoracic spine shows arthropathy and lumbar spine show slight progressed blastic lesion in L1, 8.2 mm but severe central canal stenosis in L3-4, and L4-5 and advanced arthropathy. Came for follow-up, complaining of back pain, localized not radiating to lower extremity, but controlled with narcotics otherwise no fever chills no nausea or vomiting no diarrhea constipation no lower extremity numbness no dysuria or hematuria, occasional hot flashes otherwise tolerating Zoladex/Zytiga/prednisone/Xgeva well Medications: Advair Diskus 1 Puff(s) (of 100-50 mcg/dose) Aerosol Powder, Breath Activated Inhalation b.i.d. PRN, Albuterol Sulfate 1 puff(s) (of (2.5 mg/3ml) 0.083%) Nebulization solution Inhalation four times a day, Alfuzosin HCl ER 1 Tablet (of 10 mg) Tablet SR 24 HR Oral at bedtime, Aspirin 1 Tablet (of 81 mg) Oral daily, Atorvastatin Calcium 1 Tablet (of 80 mg) Oral daily, Belsomra 1 Tablet (of 15 mg) Oral at bedtime PRN, Cetirizine HCl 1 Tablet (of 10 mg) Oral daily, Cyclobenzaprine HCl 0.5 - 1 Tablet (of 10 mg) Oral t.i.d. PRN, Esomeprazole Magnesium 1 Capsule (of 40 mg) Capsule Delayed Release Oral daily, HYDROcodone-Acetaminophen 1 Tablet (of 10-325 mg) Oral four times a day PRN, Ipratropium-Albuterol 1 puff(s) (of 0.5-2.5 (3) mg/3ml) Solution Inhalation q 4 hours PRN, Januvia 1 Tablet (of 25 mg) Oral daily, Levothyroxine Sodium 1 Tablet (of 175 mcg) Oral daily, Lisinopril 0.5 Tablet (of 20 mg) Oral daily, Metoprolol Succinate ER 1 Tablet (of 25 mg) Tablet SR 24 HR Oral daily, Mirtazapine 1 Tablet (of 7.5 mg) Oral daily, Montelukast Sodium 1 Tablet (of 10 mg) Oral daily, Nitroglycerin 1 Tablet (of 0.4 mg) Tablet, sublingual Sublingual PRN, ProAir HFA 1 puff(s) (of 108 (90 base) mcg/act) Aerosol, solution Inhalation q 4 hours PRN, Probiotic Digestive Support 1 Capsule Oral daily, Xgeva 1 Subcutaneous q 30 days, Zetia 1 Tablet (of 10 mg) Oral daily, Zoladex (10.8 mg) Subcutaneous q 12 weeks Allergies: Vancomycin HCl Review of Systems: Constitutional - Appetite and weight are stable. No fever, chills, hot flashes or night sweats. Energy level is good, ENMT - Negative for sinus congestion. No mouth sores. No sore throat or difficulty swallowing, Hematologic/Lymphatic - No abnormal bruising or bleeding, Respiratory - No shortness of breath. No cough. No pleuritic pain or hemoptysis, Cardiovascular - No angina pain. No palpitations, Gastrointestinal - Pt denies nausea. No heartburn or acid reflux. Positive for diarrhea. No constipation. No blood in the stool or black stools, Musculoskeletal - Pt reports chronic back pain, Neurologic - No headache. Positive for dizziness. Pt reports numbness in feet, Psychiatric - No anxiety or depression. No insomnia. Vital Signs: Performed on Jul 28, 2019 13:06 Height - 75.00 in Weight - 226.0 lbs BSA - 2.31 sq.m BMI - 28.25 Temperature - 97.9 F (LOW) Pulse - 58 /min (LOW) Respiration - 24 /min BP - 141/79 mm(hg) (HIGH) O2 Sat - 96 % Pain - 7 Performance Status: 1 - No physically strenuous activity, but ambulatory and able to carry out light or sedentary work (e.g. office work, light house work). (ECOG) Physical Examination: ENMT - No mouth sores, no thrush, no mucositis, Respiratory - Lungs are clear, Cardiovascular - Regular rate and rhythm of heart, Abdomen - soft, bowel sounds present, Extremities - No visible edema. Lab/Imaging: Test performed on Jul 27, 2019 09:42 WBC 2.2 10 3/uL RBC 3.79 10 6/uL HGB 12.1 g/dL HCT 37.2 % MCV 98.2 fL MCH 31.9 pg MCHC 32.5 g/dL RDW 13.2 % Platelet Count 133 10 3/cmm MPV 10.9 fL Neutrophils 1.3 10 3/uL Lymphocytes 0.5 10 3/uL Monocytes 0.4 10 3/uL Eosinophils 0.0 10 3/uL Basophils 0.0 10 3/uL Neutrophil % 56.6 % Lymphocyte % 24.4 % Monocyte % 16.3 % Eosinophil % 1.8 % Basophils % 0.9 % NRBC % 0 % PSA 42.420 ng/mL Test performed on June 24, 2019 09:28 Sodium 145 mmol/L Potassium 3.8 mmol/L Chloride 110 mmol/L CO2 26 mmol/L Anion Gap 12.8 BUN 10 mg/dL Creatinine 0.7 mg/dL Cr Clearance (Est) 130.5600 mL/min Glucose 119 mg/dL Calcium 8.9 mg/dL Protein, Total 6.8 g/dL Albumin 3.5 g/dL Globulin 3.3 g/dL Bilirubin, Total 0.2 mg/dL ALT (SGPT) 18 U/L AST (SGOT) 20 U/L Alkaline Phosphatase 75 IU/L Test performed on May 25, 2019 08:25 Vitamin B12 261 pg/mL Test performed on Apr 19, 2019 09:43 Testosterone 2.5 ng/dL TSH 0.01 uU/mL Cholesterol, Total 119 mg/dL HDL Cholesterol 37 mg/dL LDL Cholesterol 71 mg/dL Triglycerides 57 mg/dL Manual Lymphocytes 20.3 % Manual Monocytes 19.2 % Manual Eosinophils 2.3 % Manual Basophils 0.6 % Test performed on Mar 16, 2019 09:25 T4, Free 2.38 ng/dL Impression: Biochemical recurrence, CT scan of abdomen pelvis done on 04/25/2018 showed sclerotic lesions in the pelvic bones no pelvic lymphadenopathy or abnormal mass. History of prostrate cancer initially diagnosed in 2006 at that time his PSA was 7.1 and left-sided nodule biopsy showed 6 out of 12 cores positive for 3+3/3+ for STEEL RULE DIE MAKER with 20-60% involvement status post external beam radiation therapy completed in March 2007 Follow-up PSA showed excellent response till 2009 when PSA started going up underwent rebiopsy of prostate on 09/14/2009 which was nondiagnostic but suspicious for malignancy. Started on LHRH agonist in December 2009 2 weeks of Casodex, excellent response PSA become undetectable still January 2012 with slow rise thereafter e.g. 0.27 on 08/05/2012, 2 in May 2013, 7 in November 2013, 8.4 in March 2015 bicalutamide was admitted in September 2015 later stopped after PSA continued to go up, subsequently underwent bilateral scrotal orchiectomy in April 2017 PSA continued to rise around 20 on 01/28/2018 for the gone up to 39.58 in April 2018, at that time Casodex 50 mg by mouth was started and patient was referred to medical oncology clinic Zoladex 10.8 mg every 3 months started on 06/01/2018 Bone scan done on 06/01/2018 showed L3 and L4 vertebral body increased activity corresponding to the prior CT sclerosis. Left T10 and T7 lateral vertebral body or facet increase activity you from prior exam done in December 2006,. New right lateral posterior ninth rib focus of increased activity. did see Mr. Jacobs in August 2018 at which time Mr. Jacobs was having moderate to severe distress with progressive lower back pain. He was sent to the emergency room for evaluation for possible metastatic disease or prolapse/collapsed vertebra. His PSA at that time was 34.24 and his testosterone was 19.9. New right sixth and eighth anterior lateral rib focus of increased activity. Recently diagnosed with thyroid cancer status post thyroidectomy with lymph node dissection now radioactive iodine therapy was under consideration as of June 2018. Mr. Jcaobs was seen in the emergency room on 09/07/2018 for low back pain. He apparently been having back pain for 2 weeks. It was described as intermittent dull and sharp pain sometimes radiating to the left hip. It has gotten progressively worse. The pain medication was only partly relieving it. He did have a CT of the lumbar spine on 09/07/2018. It showed progressive sclerotic metastatic disease along the posterior margin of the right L1 vertebral body, the superior endplates of L3 and L4, left L3 pedestal, sclerotic focus involving the right anterior aspect of the L5 body and sclerotic focus along the lateral margin of the right iliac bone. He was referred to Dr. Corral for consideration of palliative radiation therapy. Dr. Corral did see him the same day on 09/07/2018. And did recommend palliative radiation to the lower back to control the metastatic disease in relieve pain. He was also started on Decadron 4 mg every 6 hours for 7 days in the emergency room on 09/07/2018. Mr Jacobs received radiation therapy to the spine He received 3000 cGy total dose to the SPINE GTV30 starting 09/13/2018 and ending 10/01/2018. He then received treatment to T10 spine, ref ID: T10 Spine to a total dose of 3000 cGy starting 02/03/2019 and ending on 02/17/2019. He has had an excellent response to the radiation with his back pain resolved. He has been on denosumab since June 10, 2018 per our chart. He continues with Zoladex with his last dose being given on March 25, 2019. He also received denosumab at that time as well. Mr. Jacobs is here today to begin further treatment for his disease progression. He has had significant elevation of his PSA on March 25, 2019 it was 44. On January 20, 2019 it was 29. has recommended that he pursue treatment with Zytiga/prednisone and continue the every 3-month dose of Zoladex and monthly denosumab. Persistent leukopenia, bone marrow done on July 07, 2019 showed no evidence of myelodysplasia or any other marrow abnormality, could be due to treatment with radioactive iodine Plan: Discussed with patient regarding his labs white blood count 2.2 hemoglobin 12.1 crit 37.2 platelets 133,000 absolute neutrophil count 1300 PSA 42.4 compared to 50.72 on June 24, 2019 Clinically, patient is doing reasonably well, tolerating 3 monthly Zoladex and daily Zytiga/prednisone and monthly Xgeva well but with expected side effects. His follow-up labs shows his PSA has gone down, now 42.4 compared to 50.72 on June 24, 2019, as patient restarted Zytiga/prednisone and now tolerating well. In the meantime we will continue with his monthly dose of Xgeva today and follow him with CBC and PSA if PSA continued drop, then will continue with same treatment otherwise consider changing to another regimen but concern is persistent leukopenia and recently underwent bone marrow evaluation normal July 07, 2019 which showed normocellular bone marrow with trilineage hematopoiesis, no evidence of MDS or any other pathology As far as back pain is concerned, his CT scan of thoracic/lumbar spine showed no significant disease progression but persistent blastic lesion in the thoracic spine and L1 vertebra stable versus slight change and significant arthropathy and disc bulging in lumbar vertebra, may be causing his back pain, in that case, will refer him to orthopedics for evaluation. Signed By: Daniel Monahan M.D. <<Signature on File>>
== END 2019-07-28 12:31 | disposition home or self-care (01) ==
LOC: ONCMED 12:34
PROVIDERS: PCP Family Medicine; Visit Provider Internal Medicine Hematology & Oncology
DX: C61 Malignant neoplasm of prostate (principal); C79.51 Secondary malignant neoplasm of bone; C73 Malignant neoplasm of thyroid gland; D72.819 Decreased white blood cell count, unspecified; M54.9 Dorsalgia, unspecified; M51.26 Other intervertebral disc displacement, lumbar region; M12.9 Arthropathy, unspecified; E89.0 Postprocedural hypothyroidism; Z79.818 Long term (current) use of other agents affecting estrogen receptors and estrogen levels; Z79.899 Other long term (current) drug therapy; Z79.52 Long term (current) use of systemic steroids
CPT/HCPCS: 96372; 99214; J0897

== ENCOUNTER 2019-08-29 10:22 | Outpatient (CLI) | payer MEDICARE, MEDICAID, SELFPAY ==
[2019-08-29 11:27] LABS: Basophils % 0.8 %; Eosinophils % 1.2 %; Hematocrit 39.8 % (42.0-52.0); Hemoglobin 12.5 g/dL (11.7-16.6); Lymphocytes # 0.6 10^3/uL (0.8-4.8); Mean Corpuscular HGB Conc 31.4 g/dL (30.0-36.0); Mean Corpuscular Hemoglobin 31.3 pg (28.0-34.0); Mean Corpuscular Volume 99.7 fL (80-94); Mean Platelet Volume 11.4 fL (7.4-10.4); Monocytes # 0.3 10^3/uL (0.2-0.9); Monocytes % 13.3 %; Neutrophils % 60.5 %; Nucleated Red Blood Cells % 0 %; Platelet Count 119 10^3/cmm (130-400); Red Blood Count 3.99 10^6/uL (4.1-5.3); Red Cell Distribution Width 13.3 % (12.1-15.1); White Blood Count 2.5 10^3/uL (4.0-10.0)
== END 2019-08-29 10:23 | disposition home or self-care (01) ==
PROVIDERS: PCP Family Medicine; Visit Provider Nurse Practitioner
DX: C61 Malignant neoplasm of prostate (principal); C73 Malignant neoplasm of thyroid gland; C79.51 Secondary malignant neoplasm of bone
CPT/HCPCS: 84153; 85025

== ENCOUNTER 2019-08-30 13:07 | Outpatient (CLI) | payer MEDICARE, MEDICAID, SELFPAY ==
--- NOTE | 2019-08-30 13:54 | ONC FU_ITS ---
Dr. Monahan follow up note Patient: Charlie Jacobs Unit #: [id number]: 1945 Dicatated By: Daniel Monahan M.D.Date of Visit:Aug 30, 2019 Onc Med Follow-up/Prog Note History of Present Illness: Mr. 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 At that time, his PSA was 7.1 and left sided nodule biopsies showed 6 out of 12 cores positive for 3+3/3+4 CIRCULATION REPRESENTATIVE with 20-60% involvement. He received external beam radiation therapy which he completed in March 2007. Follow-up PSA level showed good response but start increasing and peak prior to initiation of hormonal therapy was 6.1, patient underwent rebiopsy on 09/14/2009 which showed suspicious pathology but not diagnostic. Mr Jacobs was started on LHRH agonist in December 2009 with 2 weeks of Casodex. He had excellent response. PSA was undetectable till January 2012 thereafter slow rise e.g. 0.27 on 08/05/2012 and 2 in May 2013, 7 in November 2013 and 8.4 in March 2015. Bicalutamide was added. In September 2015 and later stopped after increasing PSA again. In April 2017 bilateral scrotal orchiectomy was done. But PSA continued to rise in January 2018 was around 19 and in April 2018,gone up to 39.58. At that time, he started on Casodex 50 mg by mouth daily and CT scan of abdomen pelvis was done on 04/25/2018 which showed no pelvic lymphadenopathy but nonspecific multifocal osseous sclerotic foci; descending sigmoid colon diverticulosis with the descending sigmoid colon junction short segment diverticulitis patient was treated with antibiotics. Zoladex 10.8 mg was started on 06/01/2018. In the meantime, Mr Jacobs developed a mass in the right side of his neck and further investigation led to the diagnosis of thyroid cancer. He underwent thyroidectomy with lymph node dissection- as per patient, cancer was involving lymph nodes. s/p radioactive iodine treatment in early June in [facility]. Mr. Jacobs was seen in the emergency room on 09/07/2018 for low back pain. He apparently had been having back pain for 2 weeks. It was described as intermittent dull and sharp pain sometimes radiating to the left hip. It has gotten progressively worse. The pain medication was only partly relieving it. He did have a CT of the lumbar spine on 09/07/2018. It showed progressive sclerotic metastatic disease along the posterior margin of the right L1 vertebral body, the superior endplates of L3 and L4, left L3 pedestal, sclerotic focus involving the right anterior aspect of the L5 body and sclerotic focus along the lateral margin of the right iliac bone. He was referred to Dr. Corral for consideration of palliative radiation therapy. Dr. Corral did see him the same day on 09/07/2018 and did recommend palliative radiation to the lower back to control the metastatic disease and relieve pain. He was also started on Decadron 4 mg every 6 hours for 7 days in the emergency room on 09/07/2018. Mr Jacobs received radiation therapy to the spine He received 3000 cGy total dose to the SPINE GTV30 starting 09/13/2018 and ending 10/01/2018. He then received treatment to T10 spine, ref ID: [id number] Spine to a total dose of 3000 cGy starting 02/03/2019 and ending on 02/17/2019. He has had an excellent response to the radiation with his back pain resolved. He has been on denosumab since June 10, 2018 per our chart. He continues with Zoladex with his last dose being given on March 25, 2019. He also received denosumab at that time as well. He has had significant elevation of his PSA on March 25, 2019 it was 44. On January 20, 2019 it was 29. has recommended that he pursue treatment with Zytiga/prednisone and continue the every 3-month dose of Zoladex and monthly denosumab. As per patient he went to emergency room , with hypertension and abdominal discomfort underwent CT scan of abdomen on the 04/09/2019 which showed nonspecific bibasilar groundglass opacity consistent with atelectasis edema or pneumonia. Unchanged size of sclerotic bone lesions. Avascular necrosis of right femoral head. Diverticulosis without diverticulitis. No hydronephrosis. His blood pressure was within normal range and pulse was between 90 and 100 and as per patient and his EKG did not show any abnormality. Patient was treated IV fluid and discharge home on oral antibiotic Flagyl for presumed diagnosis of diverticulitis, was referred to Dr. Fermin for GI evaluation, as per patient now colonoscopy is under consideration. His labs ER on 04/09/2019 shows white blood count 2.6 and globin 12.4 hematocrit 37 platelets 130,000 CMP within normal limits .zytiga /prednisone was discontinued by patient on 04/11/2019 because of diarrhea and hypertension, Restarted on 05/26/2019 CT scan of thoracic lumbar spine done on June 27, 2019 showed no changes in thoracic spine shows arthropathy and lumbar spine show slight progressed blastic lesion in L1, 8.2 mm but severe central canal stenosis in L3-4, and L4-5 and advanced arthropathy. Came for follow-up, denies any specific complaint except chronic lower back pain which is under control with current pain medication. Denies any lower extremity numbness denies any urine or stool incontinence denies any trauma to his back. He was referred to local orthopedics for evaluation but patient could not get appointment because of nonavailability. Now he might go to orthopedic physician in [place], whom he has seen in the past . and occasional hot flashes otherwise tolerating Zoladex/Zytiga/prednisone/Xgeva well Medications: Advair Diskus 1 Puff(s) (of 100-50 mcg/dose) Aerosol Powder, Breath Activated Inhalation b.i.d. PRN, Albuterol Sulfate 1 puff(s) (of (2.5 mg/3ml) 0.083%) Nebulization solution Inhalation four times a day, Alfuzosin HCl ER 1 Tablet (of 10 mg) Tablet SR 24 HR Oral at bedtime, Aspirin 1 Tablet (of 81 mg) Oral daily, Atorvastatin Calcium 1 Tablet (of 80 mg) Oral daily, Belsomra 1 Tablet (of 15 mg) Oral at bedtime PRN, Cetirizine HCl 1 Tablet (of 10 mg) Oral daily, Cyclobenzaprine HCl 0.5 - 1 Tablet (of 10 mg) Oral t.i.d. PRN, Esomeprazole Magnesium 1 Capsule (of 40 mg) Capsule Delayed Release Oral daily, HYDROcodone-Acetaminophen 1 Tablet (of 10-325 mg) Oral four times a day PRN, Ipratropium-Albuterol 1 puff(s) (of 0.5-2.5 (3) mg/3ml) Solution Inhalation q 4 hours PRN, Januvia 1 Tablet (of 25 mg) Oral daily, Levothyroxine Sodium 1 Tablet (of 175 mcg) Oral daily, Lisinopril 0.5 Tablet (of 20 mg) Oral daily, Metoprolol Succinate ER 1 Tablet (of 25 mg) Tablet SR 24 HR Oral daily, Mirtazapine 1 Tablet (of 7.5 mg) Oral daily, Montelukast Sodium 1 Tablet (of 10 mg) Oral daily, Nitroglycerin 1 Tablet (of 0.4 mg) Tablet, sublingual Sublingual PRN, ProAir HFA 1 puff(s) (of 108 (90 base) mcg/act) Aerosol, solution Inhalation q 4 hours PRN, Probiotic Digestive Support 1 Capsule Oral daily, Xgeva 1 Subcutaneous q 30 days, Zetia 1 Tablet (of 10 mg) Oral daily, Zoladex (10.8 mg) Subcutaneous q 12 weeks Allergies: Vancomycin HCl Review of Systems: Constitutional - Appetite and weight are stable. No fever, chills, hot flashes or night sweats. Energy level is good, ENMT - Negative for sinus congestion. No mouth sores. No sore throat or difficulty swallowing, Hematologic/Lymphatic - No abnormal bruising or bleeding, Respiratory - No shortness of breath. No cough. No pleuritic pain or hemoptysis, Cardiovascular - No angina pain. No palpitations, Gastrointestinal - Pt denies nausea. No heartburn or acid reflux. Positive for diarrhea. No constipation. No blood in the stool or black stools, Musculoskeletal - Pt reports chronic back pain, Neurologic - No headache. Positive for dizziness. Pt reports numbness in feet, Psychiatric - No anxiety or depression. No insomnia. Vital Signs: Performed on Aug 30, 2019 13:12 Height - 75.00 in Weight - 235.0 lbs (HIGH) BSA - 2.35 sq.m BMI - 29.37 Temperature - 97.4 F (LOW) Pulse - 69 /min Respiration - 24 /min BP - 152/105 mm(hg) (HIGH) O2 Sat - 96 % Pain - 5 Performance Status: 1 - No physically strenuous activity, but ambulatory and able to carry out light or sedentary work (e.g. office work, light house work). (ECOG) Physical Examination: ENMT - No mouth sores, no thrush, no jaundice, Respiratory - Lungs are clear, Cardiovascular - Regular rate and rhythm of heart, Abdomen - Soft, bowel sounds present, Extremities - No visible edema. Lab/Imaging: Test performed on Aug 29, 2019 10:34 WBC 2.5 10 3/uL RBC 3.99 10 6/uL HGB 12.5 g/dL HCT 39.8 % MCV 99.7 fL MCH 31.3 pg MCHC 31.4 g/dL RDW 13.3 % Platelet Count 119 10 3/cmm MPV 11.4 fL Neutrophils 1.50 10 3/uL Lymphocytes 0.6 10 3/uL Monocytes 0.3 10 3/uL Eosinophils 0.0 10 3/uL Basophils 0.0 10 3/uL Neutrophil % 60.5 % Lymphocyte % 23.0 % Monocyte % 13.3 % Eosinophil % 1.2 % Basophils % 0.8 % NRBC % 0 % PSA 21.730 ng/mL Test performed on June 24, 2019 09:28 Sodium 145 mmol/L Potassium 3.8 mmol/L Chloride 110 mmol/L CO2 26 mmol/L Anion Gap 12.8 BUN 10 mg/dL Creatinine 0.7 mg/dL Cr Clearance (Est) 130.5600 mL/min Glucose 119 mg/dL Calcium 8.9 mg/dL Protein, Total 6.8 g/dL Albumin 3.5 g/dL Globulin 3.3 g/dL Bilirubin, Total 0.2 mg/dL ALT (SGPT) 18 U/L AST (SGOT) 20 U/L Alkaline Phosphatase 75 IU/L Test performed on May 25, 2019 08:25 Vitamin B12 261 pg/mL Test performed on Apr 19, 2019 09:43 Testosterone 2.5 ng/dL TSH 0.01 uU/mL Cholesterol, Total 119 mg/dL HDL Cholesterol 37 mg/dL LDL Cholesterol 71 mg/dL Triglycerides 57 mg/dL Manual Lymphocytes 20.3 % Manual Monocytes 19.2 % Manual Eosinophils 2.3 % Manual Basophils 0.6 % Test performed on Mar 16, 2019 09:25 T4, Free 2.38 ng/dL Impression: Biochemical recurrence, CT scan of abdomen pelvis done on 04/25/2018 showed sclerotic lesions in the pelvic bones no pelvic lymphadenopathy or abnormal mass. History of prostrate cancer initially diagnosed in 2006 at that time his PSA was 7.1 and left-sided nodule biopsy showed 6 out of 12 cores positive for 3+3/3+ for CIRCULATION REPRESENTATIVE with 20-60% involvement status post external beam radiation therapy completed in March 2007 Follow-up PSA showed excellent response till 2009 when PSA started going up underwent rebiopsy of prostate on 09/14/2009 which was nondiagnostic but suspicious for malignancy. Started on LHRH agonist in December 2009 2 weeks of Casodex, excellent response PSA become undetectable still January 2012 with slow rise thereafter e.g. 0.27 on 08/05/2012, 2 in May 2013, 7 in November 2013, 8.4 in March 2015 bicalutamide was admitted in September 2015 later stopped after PSA continued to go up, subsequently underwent bilateral scrotal orchiectomy in April 2017 PSA continued to rise around 20 on 01/28/2018 for the gone up to 39.58 in April 2018, at that time Casodex 50 mg by mouth was started and patient was referred to medical oncology clinic Zoladex 10.8 mg every 3 months started on 06/01/2018 Bone scan done on 06/01/2018 showed L3 and L4 vertebral body increased activity corresponding to the prior CT sclerosis. Left T10 and T7 lateral vertebral body or facet increase activity you from prior exam done in December 2006,. New right lateral posterior ninth rib focus of increased activity. did see Mr. Jacobs in August 2018 at which time Mr. Jacobs was having moderate to severe distress with progressive lower back pain. He was sent to the emergency room for evaluation for possible metastatic disease or prolapse/collapsed vertebra. His PSA at that time was 34.24 and his testosterone was 19.9. New right sixth and eighth anterior lateral rib focus of increased activity. Recently diagnosed with thyroid cancer status post thyroidectomy with lymph node dissection now radioactive iodine therapy was under consideration as of June 2018. Mr. Jacobs was seen in the emergency room on 09/07/2018 for low back pain. He apparently been having back pain for 2 weeks. It was described as intermittent dull and sharp pain sometimes radiating to the left hip. It has gotten progressively worse. The pain medication was only partly relieving it. He did have a CT of the lumbar spine on 09/07/2018. It showed progressive sclerotic metastatic disease along the posterior margin of the right L1 vertebral body, the superior endplates of L3 and L4, left L3 pedestal, sclerotic focus involving the right anterior aspect of the L5 body and sclerotic focus along the lateral margin of the right iliac bone. He was referred to Dr. Corral for consideration of palliative radiation therapy. Dr. Corral did see him the same day on 09/07/2018. And did recommend palliative radiation to the lower back to control the metastatic disease in relieve pain. He was also started on Decadron 4 mg every 6 hours for 7 days in the emergency room on 09/07/2018. Mr Jacobs received radiation therapy to the spine He received 3000 cGy total dose to the SPINE GTV30 starting 09/13/2018 and ending 10/01/2018. He then received treatment to T10 spine, ref ID: T10 Spine to a total dose of 3000 cGy starting 02/03/2019 and ending on 02/17/2019. He has had an excellent response to the radiation with his back pain resolved. He has been on denosumab since June 10, 2018 per our chart. He continues with Zoladex with his last dose being given on March 25, 2019. He also received denosumab at that time as well. Mr. Jacobs is here today to begin further treatment for his disease progression. He has had significant elevation of his PSA on March 25, 2019 it was 44. On January 20, 2019 it was 29. has recommended that he pursue treatment with Zytiga/prednisone and continue the every 3-month dose of Zoladex and monthly denosumab. Persistent leukopenia, bone marrow done on July 07, 2019 showed no evidence of myelodysplasia or any other marrow abnormality, could be due to treatment with radioactive iodine Plan: Discussed with patient regarding his labs white blood count 2.5 hemoglobin 12.5 g hematocrit 39.8 platelets 119,000 ANC 1500 and PSA 21.73 compared to 42.42 on July 27, 2019 Clinically, patient is doing reasonably well except chronic back pain not being controlled with current pain medication, patient was referred to orthopedics here locally but could not get appointment because of nonavailability, now considering going to [place] for evaluation but patient wants to wait till hunting season is over. As far as prostate cancer is concerned, his follow-up PSA shows significant drop and today is 21.73 compared to 42.42 on July 27, 2019 and 50.72 on June 24, 2019, now being treated with Zoladex/Zytiga/prednisone and monthly Xgeva. Tolerating well, will proceed with next monthly dose of Xgeva today and then he will return to clinic in 1 month with PSA and CBC and for 3 monthly Zoladex and monthly Xgeva. Bicytopenia, stable, white blood count is improving somewhat while persistent mild thrombocytopenia, bone marrow evaluation was inconclusive will continue to monitor Signed By: Daniel Monahan M.D. <<Signature on File>>
[2019-08-30] MEDS: denosumab 120 mg SDV SUBCUT (13:57)
== END 2019-08-30 13:08 | disposition home or self-care (01) ==
LOC: ONCMED 13:11
PROVIDERS: PCP Family Medicine; Visit Provider Internal Medicine Hematology & Oncology
DX: C61 Malignant neoplasm of prostate (principal); C79.51 Secondary malignant neoplasm of bone; C73 Malignant neoplasm of thyroid gland; D72.819 Decreased white blood cell count, unspecified; D69.6 Thrombocytopenia, unspecified; G89.29 Other chronic pain; M54.9 Dorsalgia, unspecified; E89.0 Postprocedural hypothyroidism; Z92.3 Personal history of irradiation; Z79.818 Long term (current) use of other agents affecting estrogen receptors and estrogen levels; Z79.899 Other long term (current) drug therapy; Z79.52 Long term (current) use of systemic steroids
CPT/HCPCS: 96372; 99214; J0897

== ENCOUNTER 2019-09-30 09:43 | Outpatient (CLI) | payer MEDICARE, MEDICAID, SELFPAY ==
[2019-09-30 10:15] LABS: Basophils % 0.7 %; Eosinophils % 1.4 %; Hematocrit 39.4 % (42.0-52.0); Hemoglobin 12.6 g/dL (11.7-16.6); Lymphocytes # 0.6 10^3/uL (0.8-4.8); Lymphocytes % 19.4 %; Mean Corpuscular Hemoglobin 31.6 pg (28.0-34.0); Mean Corpuscular Volume 98.7 fL (80-94); Mean Platelet Volume 10.7 fL (7.4-10.4); Monocytes # 0.4 10^3/uL (0.2-0.9); Monocytes % 13.5 %; Neutrophils # 1.85 10^3/uL (1.8-7.7); Nucleated Red Blood Cells % 0 %; Platelet Count 135 10^3/cmm (130-400); Red Blood Count 3.99 10^6/uL (4.1-5.3); Red Cell Distribution Width 13.1 % (12.1-15.1); White Blood Count 2.9 10^3/uL (4.0-10.0)
== END 2019-09-30 09:44 | disposition home or self-care (01) ==
LOC: ONCMED 09:49
PROVIDERS: PCP Family Medicine; Visit Provider Internal Medicine Hematology & Oncology
DX: C61 Malignant neoplasm of prostate (principal); C73 Malignant neoplasm of thyroid gland; C79.51 Secondary malignant neoplasm of bone
CPT/HCPCS: 84153; 85025

== ENCOUNTER 2019-10-03 05:55 | Outpatient (CLI) | payer MEDICARE, MEDICAID, SELFPAY ==
[2019-10-03] MEDS: goserelin acetate 10.8 mg Implant SUBCUT (09:05)
[2019-10-03] MEDS: denosumab 120 mg SDV SUBCUT (09:38)
[2019-10-03] MEDS: lidocaine 1% INJ 20 mL SUBCUT (09:52)
--- NOTE | 2019-10-04 21:16 | ONC FU_ITS ---
[facility] Patient Note Patient: Charlie Jacobs Unit #: [id number]: 1945 Dictated By: Rico IniguezDate of Visit: Oct 03, 2019 Onc MED Follow-Up/Prog Note Chief Complaint: Prostrate cancer History of Present Illness: Mr. Jacobs is a 74-year-old gentleman with history of prostate cancer initially diagnosed in December 2006. 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 He received external beam radiation therapy which he completed in March 2007. Follow-up PSA level showed good response but start increasing and peak prior to initiation of hormonal therapy was 6.1, patient underwent rebiopsy on 09/14/2009 which showed suspicious pathology but not diagnostic. Mr Jacobs was started on LHRH agonist in December 2009 with 2 weeks of Casodex. He had excellent response. PSA was undetectable till January 2012 thereafter slow rise e.g. 0.27 on 08/05/2012 and 2 in May 2013, 7 in November 2013 and 8.4 in March 2015. Bicalutamide was added. In September 2015 and later stopped after increasing PSA again. In April 2017 bilateral scrotal orchiectomy was done. But PSA continued to rise in January 2018 was around 19 and in April 2018,gone up to 39.58. At that time, he started on Casodex 50 mg by mouth daily and CT scan of abdomen pelvis was done on 04/25/2018 which showed no pelvic lymphadenopathy but nonspecific multifocal osseous sclerotic foci; descending sigmoid colon diverticulosis with the descending sigmoid colon junction short segment diverticulitis patient was treated with antibiotics. Zoladex 10.8 mg was started on 06/01/2018. In the meantime, Mr Jacobs developed a mass in the right side of his neck and further investigation led to the diagnosis of thyroid cancer. He underwent thyroidectomy with lymph node dissection- as per patient, cancer was involving lymph nodes. s/p radioactive iodine treatment in early June in [facility]. Mr. Jacobs was seen in the emergency room on 09/07/2018 for low back pain. He apparently had been having back pain for 2 weeks. It was described as intermittent dull and sharp pain sometimes radiating to the left hip. It has gotten progressively worse. The pain medication was only partly relieving it. He did have a CT of the lumbar spine on 09/07/2018. It showed progressive sclerotic metastatic disease along the posterior margin of the right L1 vertebral body, the superior endplates of L3 and L4, left L3 pedestal, sclerotic focus involving the right anterior aspect of the L5 body and sclerotic focus along the lateral margin of the right iliac bone. He was referred to Dr. Corral for consideration of palliative radiation therapy. Dr. Corral did see him the same day on 09/07/2018 and did recommend palliative radiation to the lower back to control the metastatic disease and relieve pain. He was also started on Decadron 4 mg every 6 hours for 7 days in the emergency room on 09/07/2018. Mr Jacobs received radiation therapy to the spine He received 3000 cGy total dose to the SPINE GTV30 starting 09/13/2018 and ending 10/01/2018. He then received treatment to T10 spine, ref ID: T10 Spine to a total dose of 3000 cGy starting 02/03/2019 and ending on 02/17/2019. He has had an excellent response to the radiation with his back pain resolved. He has been on denosumab since June 10, 2018 per our chart. He continues with Zoladex with his last dose being given on August 30, 2019. He also received denosumab at that time as well. He had significant elevation of his PSA on March 25, 2019 it was 44. On January 20, 2019 it was 29. It was recommended that he pursue treatment with Zytiga/prednisone and continue the every 3-month dose of Zoladex and monthly desumab. As per patient, he went to emergency room with hypertension and abdominal discomfort. He underwent a CT scan of abdomen on the 04/09/2019 which showed nonspecific bibasilar groundglass opacity consistent with atelectasis edema or pneumonia. Unchanged size of sclerotic bone lesions. Avascular necrosis of right femoral head. Diverticulosis without diverticulitis. No hydronephrosis. His blood pressure was within normal range and pulse was between 90 and 100 and as per patient and his EKG did not show any abnormality. Patient was treated IV fluid and discharge home on oral antibiotic Flagyl for presumed diagnosis of diverticulitis, was referred to Dr. Fermin for GI evaluation, as per patient now colonoscopy is under consideration. His labs ER on 04/09/2019 shows white blood count 2.6 and globin 12.4 hematocrit 37 platelets 130,000 CMP within normal limits The zytiga /prednisone was discontinued by Mr Jacobs on 04/11/2019 because of diarrhea and hypertension. It was restarted on 05/26/2019. CT scan of thoracic lumbar spine done on June 27, 2019 showed no changes in thoracic spine. shows arthropathy and lumbar spine show slight progressed blastic lesion in L1, 8.2 mm but severe central canal stenosis in L3-4, and L4-5 and advanced arthropathy. Mr Jacobs continues treatment of his prostate cancer with Zytiga. Prednisone, Zoladex and Xgeva. He is here today for followup. He states overall he is doing good. He states his urination is better. He has a good appetite. He has had some nausea off and on but states that he takes his nausea medicine occasionally and does take the Zytiga on empty stomach he has no problems with nausea. He states is really not been bad enough that he needs a nausea medicine but agrees to keep so on hand just in case. He states his energy is better. He states he is been able to do more around the house although he does tire easily she does recover well with rest. He states he is due to follow-up with his neurosurgeon for his back in December. He is also due to follow-up with his thyroid doctor at that same time. He states that he has been told by the thyroid doctor that his thyroid cancer is doing well. He has no new concerns today. He denies any fever or chills. He denies mouth sores, sore throat or difficulty swallowing. He continues to have intermittent hot flashes but states it is no better and no worse than what it has been. He states it is tolerable. He denies any new pain. Has had no lower extremity edema. He states his bowels are good. He denies diarrhea or constipation. His ECOG is 1. Past Medical History: Chronic obstructive pulmonary disease Diverticulitis Hypertension Thyroid cancer Type II diabetes Past Surgical History: Colonoscopy Left knee replacement Mass removed from thyroid Partial thyroid removal Right knee replacememt Testicules removal Allergies: Vancomycin HCl Medications: Advair Diskus 1 Puff(s) (of 100-50 mcg/dose) Aerosol Powder, Breath Activated Inhalation b.i.d. PRN Albuterol Sulfate 1 puff(s) (of (2.5 mg/3ml) 0.083%) Nebulization solution Inhalation four times a day Alfuzosin HCl ER 1 Tablet (of 10 mg) Tablet SR 24 HR Oral at bedtime Aspirin 1 Tablet (of 81 mg) Oral daily Atorvastatin Calcium 1 Tablet (of 80 mg) Oral daily Belsomra 1 Tablet (of 15 mg) Oral at bedtime PRN Cetirizine HCl 1 Tablet (of 10 mg) Oral daily Cyclobenzaprine HCl 0.5 - 1 Tablet (of 10 mg) Oral t.i.d. PRN Esomeprazole Magnesium 1 Capsule (of 40 mg) Capsule Delayed Release Oral daily HYDROcodone-Acetaminophen 1 Tablet (of 10-325 mg) Oral four times a day PRN Ipratropium-Albuterol 1 puff(s) (of 0.5-2.5 (3) mg/3ml) Solution Inhalation q 4 hours PRN Januvia 1 Tablet (of 25 mg) Oral daily Levothyroxine Sodium 1 Tablet (of 175 mcg) Oral daily Lisinopril 0.5 Tablet (of 20 mg) Oral daily Metoprolol Succinate ER 1 Tablet (of 25 mg) Tablet SR 24 HR Oral daily Mirtazapine 1 Tablet (of 7.5 mg) Oral daily Montelukast Sodium 1 Tablet (of 10 mg) Oral daily Nitroglycerin 1 Tablet (of 0.4 mg) Tablet, sublingual Sublingual PRN ProAir HFA 1 puff(s) (of 108 (90 base) mcg/act) Aerosol, solution Inhalation q 4 hours PRN Probiotic Digestive Support 1 Capsule Oral daily Xgeva 1 Subcutaneous q 30 days Zetia 1 Tablet (of 10 mg) Oral daily Zoladex (10.8 mg) Subcutaneous q 12 weeks Family History: Mr. Jacobs's mother at age 90. Mr. Jacobs's father at age 60: ruptured hernia. Mother of cancer but does not know what she had. His sister has cancer now but does not know what kind. Social History: Mr. Jacobs is and he is retired. He is an occasional smoker who has smoked 0.5 packs/day for 67 years. He is a former drinker. pt states he is trying to quit smoking. Review Of Symptoms: Constitutional Denies fevers, chills, night sweats, excessive fatigue or weight loss. He states I have more energy lately, but still have to rest more than I want to . Allergic/Immunologic No reactions. Eyes Denies significant visual changes. No diplopia. No amaurosis. ENMT Denies changes in hearing, sore throat, mouth sores, difficulty or changes in swallowing ability, and/or sinus drainage. Hematologic/Lymphatic Denies easy bruising or bleeding. The patient denies any tender or palpable lymph nodes. Respiratory Denies dyspnea on exertion, chest pain, cough or hemoptysis. Denies orthopnea. Cardiovascular Denies anginal chest pain, palpitations or orthopnea. Gastrointestinal Denies persistent nausea, vomiting, diarrhea, GI bleeding, or constipation. Denies change in bowel habits and/or stool color, no heartburn or early satiety. He states he has had slight nausea off and on but if he takes his chemo pill on an empty stomach, the nausea is not there. Genitourinary (M) Denies hematuria, dysuria, increased frequency, urgency, hesitancy or incontinence. Musculoskeletal Denies worsening back pain-actually better per patient. Denies swelling or redness. No decreased range of motion. Integumentary Denies chronic rashes, inflammation, ulcerations or skin changes. Neurologic Denies blurred vision, and no areas of focal weakness or numbness. Normal gait. No sensory problems. Psychiatric Denies insomnia, depression, margaret or mood swings. Vital Signs: Performed on Oct 03, 2019 08:13 Height - 75.00 in Weight - 242.6 lbs (HIGH) BSA - 2.38 sq.m BMI - 30.32 (HIGH) Temperature - 96.9 F (LOW) Pulse - 75 /min Respiration - 16 /min BP - 163/93 mm(hg) (HIGH) O2 Sat - 96 % Pain - 0,1 - No physically strenuous activity, but ambulatory and able to carry out light or sedentary work (e.g. office work, light house work). (ECOG) Physical Examination: Constitutional Alert, oriented, no acute distress. Skin pink, warm and dry. Head Normocephalic; atraumatic. Eyes Conjunctivae and sclerae are clear and without icterus. Pupils are reactive and equal. Neck Supple without masses or thyromegaly. No jugular venous distension. Hematologic/Lymphatic No petechiae or purpura. No tender or palpable lymph nodes in the cervical or supraclavicular areas. Respiratory Lungs are clear to auscultation without rhonchi or wheezing. Cardiovascular Regular rate and rhythm of heart without murmurs,clicks, gallops or rubs. Abdomen Non-tender, non-distended, no masses, ascites. Good bowel sounds noted in all quads. No guarding or rebound tenderness. No pulsatile masses. Back/Spine Non-tender to palpation. Extremities No visible deformities, no cyanosis, clubbing or edema. Musculoskeletal No tenderness or swelling, normal range of motion without obvious weakness. Integumentary No rashes or lesions. Neurologic No sensory or motor deficits, normal cerebellar function, normal gait. Psychiatric Alert and oriented times three. Coherent speech. Verbalizes understanding of our discussions today. Laboratory:Test performed on Aug 29, 2019 10:34 WBC 2.5 10 3/uL RBC 3.99 10 6/uL HGB 12.5 g/dL HCT 39.8 % MCV 99.7 fL MCH 31.3 pg MCHC 31.4 g/dL RDW 13.3 % Platelet Count 119 10 3/cmm MPV 11.4 fL Neutrophils 1.50 10 3/uL Lymphocytes 0.6 10 3/uL Monocytes 0.3 10 3/uL Eosinophils 0.0 10 3/uL Basophils 0.0 10 3/uL Neutrophil % 60.5 % Lymphocyte % 23.0 % Monocyte % 13.3 % Eosinophil % 1.2 % Basophils % 0.8 % NRBC % 0 % PSA 21.730 ng/mL See Below for current CBC, PSA Impression: Biochemical recurrence, CT scan of abdomen pelvis done on 04/25/2018 showed sclerotic lesions in the pelvic bones no pelvic lymphadenopathy or abnormal mass. 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 Started on LHRH agonist in December 2009 2 weeks of Casodex, excellent response PSA become undetectable still January 2012 with slow rise thereafter e.g. 0.27 on 08/05/2012, 2 in May 2013, 7 in November 2013, 8.4 in March 2015 bicalutamide was admitted in September 2015 later stopped after PSA continued to go up, subsequently underwent bilateral scrotal orchiectomy in April 2017 PSA continued to rise around 20 on 01/28/2018 for the gone up to 39.58 in April 2018, at that time Casodex 50 mg by mouth was started and patient was referred to medical oncology clinic Zoladex 10.8 mg every 3 months started on 06/01/2018 Bone scan done on 06/01/2018 showed L3 and L4 vertebral body increased activity corresponding to the prior CT sclerosis. Left T10 and T7 lateral vertebral body or facet increase activity you from prior exam done in December 2006,. New right lateral posterior ninth rib focus of increased activity. We did see Mr. Jacobs in August 2018 at which time Mr. Jacobs was having moderate to severe distress with progressive lower back pain. He was sent to the emergency room for evaluation for possible metastatic disease or prolapse/collapsed vertebra. His PSA at that time was 34.24 and his testosterone was 19.9. New right sixth and eighth anterior lateral rib focus of increased activity. Recently diagnosed with thyroid cancer status post thyroidectomy with lymph node dissection now radioactive iodine therapy was under consideration as of June 2018. Mr. Jacobs was seen in the emergency room on 09/07/2018 for low back pain. He apparently been having back pain for 2 weeks. It was described as intermittent dull and sharp pain sometimes radiating to the left hip. It has gotten progressively worse. The pain medication was only partly relieving it. He did have a CT of the lumbar spine on 09/07/2018. It showed progressive sclerotic metastatic disease along the posterior margin of the right L1 vertebral body, the superior endplates of L3 and L4, left L3 pedestal, sclerotic focus involving the right anterior aspect of the L5 body and sclerotic focus along the lateral margin of the right iliac bone. He was referred to Dr. Corral for consideration of palliative radiation therapy. Dr. Corral did see him the same day on 09/07/2018. And did recommend palliative radiation to the lower back to control the metastatic disease in relieve pain. He was also started on Decadron 4 mg every 6 hours for 7 days in the emergency room on 09/07/2018. Mr Jacobs received radiation therapy to the spine He received 3000 cGy total dose to the SPINE GTV30 starting 09/13/2018 and ending 10/01/2018. He then received treatment to T10 spine, ref ID: T10 Spine to a total dose of 3000 cGy starting 02/03/2019 and ending on 02/17/2019. He has had an excellent response to the radiation with his back pain resolved. He has been on denosumab since June 10, 2018 per our chart. He continues with Zoladex with his last dose being given on March 25, 2019. He also received denosumab at that time as well. Mr. Jacobs is here today to begin further treatment for his disease progression. He has had significant elevation of his PSA on March 25, 2019 it was 44. On January 20, 2019 it was 29. has recommended that he pursue treatment with Zytiga/prednisone and continue the every 3-month dose of Zoladex and monthly denosumab. Persistent leukopenia, bone marrow done on July 07, 2019 showed no evidence of myelodysplasia or any other marrow abnormality, could be due to treatment with radioactive iodine Plan: 1. Proceed as scheduled today for Zoladex and Xgeva. 2. Continue Zytiga at 250 mg daily and Prednisone 5 mg BID. 3. Labs from September 30, 2019 were reviewed in detail and discussed with Mr. Jacobs and a copy was given to him. WBC 2.9, hemoglobin 12.6, platelets 135,000, ANC is 1850 PSA is 18.6. 4. We will refill Compazine 10 mg 1 every 4-6 hours as needed nausea to [facility] in [place]. 5. We will plan to see him back in 1 month with CBC CMP and PSA and he will be due for Xgeva at that time. 6. Mr. Jacobs was instructed to contact us in the interim should questions or problems arise. Signed By: Rico Iniguez-, [facility] Daniel Monahan MD <<Signature on File>>
== END 2019-10-03 05:56 | disposition home or self-care (01) ==
LOC: ONCMED 05:59
PROVIDERS: PCP Family Medicine; Visit Provider Nurse Practitioner
DX: C61 Malignant neoplasm of prostate (principal); C79.51 Secondary malignant neoplasm of bone; C73 Malignant neoplasm of thyroid gland; Z79.818 Long term (current) use of other agents affecting estrogen receptors and estrogen levels; Z79.899 Other long term (current) drug therapy; D72.819 Decreased white blood cell count, unspecified
CPT/HCPCS: 96372; 96402; 99214; J0897; J9202

== ENCOUNTER 2019-11-01 09:13 | Outpatient (CLI) | payer MEDICARE, MEDICAID, SELFPAY ==
[2019-11-01 09:43] LABS: Basophils % 0.4 %; Eosinophils % 1.1 %; Hematocrit 38.4 % (42.0-52.0); Hemoglobin 12.4 g/dL (11.7-16.6); Lymphocytes # 0.3 10^3/uL (0.8-4.8); Lymphocytes % 12.5 %; Mean Corpuscular HGB Conc 32.3 g/dL (30.0-36.0); Mean Corpuscular Hemoglobin 32.5 pg (28.0-34.0); Mean Corpuscular Volume 100.5 fL (80-94); Mean Platelet Volume 10.5 fL (7.4-10.4); Monocytes # 0.4 10^3/uL (0.2-0.9); Monocytes % 14.3 %; Neutrophils # 1.88 10^3/uL (1.8-7.7); Neutrophils % 70.9 %; Nucleated Red Blood Cells % 0 %; Platelet Count 136 10^3/cmm (130-400); Red Blood Count 3.82 10^6/uL (4.1-5.3); Red Cell Distribution Width 13.4 % (12.1-15.1); White Blood Count 2.7 10^3/uL (4.0-10.0)
[2019-11-01 10:28] LABS: Alanine Aminotransferase 22 U/L (0-41); Albumin Level 3.6 g/dL (3.5-5.2); Alkaline Phosphatase 67 IU/L (40-130); Aspartate Amino Transferase 19 U/L (0-40); Blood Urea Nitrogen 14 mg/dL (8-23); Calcium 8.8 mg/dL (8.5-10.5); Carbon Dioxide 27 mmol/L (22-29); Chloride 106 mmol/L (98-107); Globulin 3.1 g/dL (1.3-4.6); Glucose 164 mg/dL (65-115); Osmolality Calculated 300 mOsm/kg (285-295); Sodium 143 mmol/L (136-145); Total Bilirubin 0.6 mg/dL (0.15-1.2); Total Protein 6.7 g/dL (6.6-8.7)
== END 2019-11-01 09:14 | disposition home or self-care (01) ==
LOC: ONCMED 09:15
PROVIDERS: PCP Family Medicine; Visit Provider Nurse Practitioner
DX: C61 Malignant neoplasm of prostate (principal); C73 Malignant neoplasm of thyroid gland; C79.51 Secondary malignant neoplasm of bone
CPT/HCPCS: 36415; 80053; 84153; 85025

== ENCOUNTER 2019-11-03 07:44 | Outpatient (CLI) | payer MEDICARE, MEDICAID, SELFPAY ==
[2019-11-03] MEDS: denosumab 120 mg SDV SUBCUT (08:51)
--- NOTE | 2019-11-03 10:40 | ONC FU_ITS ---
Dr. Monahan follow up note Patient: Charlie Jacobs Unit #: [id number]: 1945 Dicatated By: Daniel Monahan M.D.Date of Visit:Nov 03, 2019 Onc Med Follow-up/Prog Note History of Present Illness: Mr. Jacobs is a 74-year-old gentleman with history of prostate cancer initially diagnosed in December 2006. At that time, his PSA was 7.1 and left sided nodule biopsies showed 6 out of 12 cores positive for 3+3/3+4 MARBLE RUBBER with 20-60% involvement. He received external beam radiation therapy which he completed in March 2007. Follow-up PSA level showed good response but start increasing and peak prior to initiation of hormonal therapy was 6.1, patient underwent rebiopsy on 09/14/2009 which showed suspicious pathology but not diagnostic. Mr Jacobs was started on LHRH agonist in December 2009 with 2 weeks of Casodex. He had excellent response. PSA was undetectable till January 2012 thereafter slow rise e.g. 0.27 on 08/05/2012 and 2 in May 2013, 7 in November 2013 and 8.4 in March 2015. Bicalutamide was added. In September 2015 and later stopped after increasing PSA again. In April 2017 bilateral scrotal orchiectomy was done. But PSA continued to rise in January 2018 was around 19 and in April 2018,gone up to 39.58. At that time, he started on Casodex 50 mg by mouth daily and CT scan of abdomen pelvis was done on 04/25/2018 which showed no pelvic lymphadenopathy but nonspecific multifocal osseous sclerotic foci; descending sigmoid colon diverticulosis with the descending sigmoid colon junction short segment diverticulitis patient was treated with antibiotics. Zoladex 10.8 mg was started on 06/01/2018. In the meantime, Mr Jacobs developed a mass in the right side of his neck and further investigation led to the diagnosis of thyroid cancer. He underwent thyroidectomy with lymph node dissection- as per patient, cancer was involving lymph nodes. s/p radioactive iodine treatment in early June in [facility]. Mr. Jacobs was seen in the emergency room on 09/07/2018 for low back pain. He apparently had been having back pain for 2 weeks. It was described as intermittent dull and sharp pain sometimes radiating to the left hip. It has gotten progressively worse. The pain medication was only partly relieving it. He did have a CT of the lumbar spine on 09/07/2018. It showed progressive sclerotic metastatic disease along the posterior margin of the right L1 vertebral body, the superior endplates of L3 and L4, left L3 pedestal, sclerotic focus involving the right anterior aspect of the L5 body and sclerotic focus along the lateral margin of the right iliac bone. He was referred to Dr. Corral for consideration of palliative radiation therapy. Dr. Corral did see him the same day on 09/07/2018 and did recommend palliative radiation to the lower back to control the metastatic disease and relieve pain. He was also started on Decadron 4 mg every 6 hours for 7 days in the emergency room on 09/07/2018. Mr Jacobs received radiation therapy to the spine He received 3000 cGy total dose to the SPINE GTV30 starting 09/13/2018 and ending 10/01/2018. He then received treatment to T10 spine, ref ID: [id number] Spine to a total dose of 3000 cGy starting 02/03/2019 and ending on 02/17/2019. He has had an excellent response to the radiation with his back pain resolved. He has been on denosumab since June 10, 2018 per our chart. He continues with Zoladex with his last dose being given on August 30, 2019. He also received denosumab at that time as well. He had significant elevation of his PSA on March 25, 2019 it was 44. On January 20, 2019 it was 29. It was recommended that he pursue treatment with Zytiga/prednisone and continue the every 3-month dose of Zoladex and monthly denosumab. As per patient, he went to emergency room with hypertension and abdominal discomfort. He underwent a CT scan of abdomen on the 04/09/2019 which showed nonspecific bibasilar groundglass opacity consistent with atelectasis edema or pneumonia. Unchanged size of sclerotic bone lesions. Avascular necrosis of right femoral head. Diverticulosis without diverticulitis. No hydronephrosis. His blood pressure was within normal range and pulse was between 90 and 100 and as per patient and his EKG did not show any abnormality. Patient was treated IV fluid and discharge home on oral antibiotic Flagyl for presumed diagnosis of diverticulitis, was referred to Dr. Fermin for GI evaluation, as per patient now colonoscopy is under consideration. His labs ER on 04/09/2019 shows white blood count 2.6 and globin 12.4 hematocrit 37 platelets 130,000 CMP within normal limits The zytiga /prednisone was discontinued by Mr Jacobs on 04/11/2019 because of diarrhea and hypertension. It was restarted on 05/26/2019. CT scan of thoracic lumbar spine done on June 27, 2019 showed no changes in thoracic spine. shows arthropathy and lumbar spine show slight progressed blastic lesion in L1, 8.2 mm but severe central canal stenosis in L3-4, and L4-5 and advanced arthropathy. tolerating Zytiga. Prednisone, Zoladex and Xgeva. He is here today for followup.. He states he is due to follow-up with his neurosurgeon for his back in December. He is also due to follow-up with his thyroid doctor at that same time. Came for follow-up, denies any specific complaint except persistent lower back pain but under control with current pain medication and is awaiting neurosurgery appointment in [place]. But no fever chills, no nausea or vomiting, no diarrhea or constipation, no hematuria, no lower extremity weakness or numbness. Tolerating Zytiga/prednisone/Zoladex and monthly Xgeva well Medications: Advair Diskus 1 Puff(s) (of 100-50 mcg/dose) Aerosol Powder, Breath Activated Inhalation b.i.d. PRN, Albuterol Sulfate 1 puff(s) (of (2.5 mg/3ml) 0.083%) Nebulization solution Inhalation four times a day, Alfuzosin HCl ER 1 Tablet (of 10 mg) Tablet SR 24 HR Oral at bedtime, Aspirin 1 Tablet (of 81 mg) Oral daily, Atorvastatin Calcium 1 Tablet (of 80 mg) Oral daily, Belsomra 1 Tablet (of 15 mg) Oral at bedtime PRN, Cetirizine HCl 1 Tablet (of 10 mg) Oral daily, Cyclobenzaprine HCl 0.5 - 1 Tablet (of 10 mg) Oral t.i.d. PRN, Esomeprazole Magnesium 1 Capsule (of 40 mg) Capsule Delayed Release Oral daily, HYDROcodone-Acetaminophen 1 Tablet (of 10-325 mg) Oral four times a day PRN, Ipratropium-Albuterol 1 puff(s) (of 0.5-2.5 (3) mg/3ml) Solution Inhalation q 4 hours PRN, Januvia 1 Tablet (of 25 mg) Oral daily, Levothyroxine Sodium 1 Tablet (of 175 mcg) Oral daily, Lisinopril 0.5 Tablet (of 20 mg) Oral daily, Metoprolol Succinate ER 1 Tablet (of 25 mg) Tablet SR 24 HR Oral daily, Mirtazapine 1 Tablet (of 7.5 mg) Oral daily, Montelukast Sodium 1 Tablet (of 10 mg) Oral daily, Nitroglycerin 1 Tablet (of 0.4 mg) Tablet, sublingual Sublingual PRN, ProAir HFA 1 puff(s) (of 108 (90 base) mcg/act) Aerosol, solution Inhalation q 4 hours PRN, Probiotic Digestive Support 1 Capsule Oral daily, Xgeva 1 Subcutaneous q 30 days, Zetia 1 Tablet (of 10 mg) Oral daily, Zoladex (10.8 mg) Subcutaneous q 12 weeks Allergies: Vancomycin HCl Review of Systems: Review of Systems is not available for this patient. Vital Signs: Performed on Nov 03, 2019 08:17 Height - 75.00 in Weight - 242.0 lbs (LOW) BSA - 2.38 sq.m BMI - 30.25 (HIGH) Temperature - 97.7 F (LOW) Pulse - 74 /min Respiration - 24 /min BP - 165/94 mm(hg) (HIGH) O2 Sat - 99 % Pain - 7 Performance Status: 0 - Fully active, able to carry on all predisease activities without restrictions. (ECOG) Physical Examination: ENMT - No mouth sores, no thrush, no jaundice, Respiratory - Lungs are clear to auscultation, Cardiovascular - Regular rate and rhythm of heart, Abdomen - Soft, bowel sounds present, Extremities - No visible edema. Lab/Imaging: Test performed on Aug 29, 2019 10:34 WBC 2.5 10 3/uL RBC 3.99 10 6/uL HGB 12.5 g/dL HCT 39.8 % MCV 99.7 fL MCH 31.3 pg MCHC 31.4 g/dL RDW 13.3 % Platelet Count 119 10 3/cmm MPV 11.4 fL Neutrophils 1.50 10 3/uL Lymphocytes 0.6 10 3/uL Monocytes 0.3 10 3/uL Eosinophils 0.0 10 3/uL Basophils 0.0 10 3/uL Neutrophil % 60.5 % Lymphocyte % 23.0 % Monocyte % 13.3 % Eosinophil % 1.2 % Basophils % 0.8 % NRBC % 0 % PSA 21.730 ng/mL Test performed on June 24, 2019 09:28 Sodium 145 mmol/L Potassium 3.8 mmol/L Chloride 110 mmol/L CO2 26 mmol/L Anion Gap 12.8 BUN 10 mg/dL Creatinine 0.7 mg/dL Cr Clearance (Est) 130.5600 mL/min Glucose 119 mg/dL Calcium 8.9 mg/dL Protein, Total 6.8 g/dL Albumin 3.5 g/dL Globulin 3.3 g/dL Bilirubin, Total 0.2 mg/dL ALT (SGPT) 18 U/L AST (SGOT) 20 U/L Alkaline Phosphatase 75 IU/L Test performed on May 25, 2019 08:25 Vitamin B12 261 pg/mL Impression: Biochemical recurrence, CT scan of abdomen pelvis done on 04/25/2018 showed sclerotic lesions in the pelvic bones no pelvic lymphadenopathy or abnormal mass. History of prostrate cancer initially diagnosed in 2006 at that time his PSA was 7.1 and left-sided nodule biopsy showed 6 out of 12 cores positive for 3+3/3+ for MARBLE RUBBER with 20-60% involvement status post external beam radiation therapy completed in March 2007 Follow-up PSA showed excellent response till 2009 when PSA started going up underwent rebiopsy of prostate on 09/14/2009 which was nondiagnostic but suspicious for malignancy. Started on LHRH agonist in December 2009 2 weeks of Casodex, excellent response PSA become undetectable still January 2012 with slow rise thereafter e.g. 0.27 on 08/05/2012, 2 in May 2013, 7 in November 2013, 8.4 in March 2015 bicalutamide was admitted in September 2015 later stopped after PSA continued to go up, subsequently underwent bilateral scrotal orchiectomy in April 2017 PSA continued to rise around 20 on 01/28/2018 for the gone up to 39.58 in April 2018, at that time Casodex 50 mg by mouth was started and patient was referred to medical oncology clinic Zoladex 10.8 mg every 3 months started on 06/01/2018 Bone scan done on 06/01/2018 showed L3 and L4 vertebral body increased activity corresponding to the prior CT sclerosis. Left T10 and T7 lateral vertebral body or facet increase activity you from prior exam done in December 2006,. New right lateral posterior ninth rib focus of increased activity. did see Mr. Jacobs in August 2018 at which time Mr. Jacobs was having moderate to severe distress with progressive lower back pain. He was sent to the emergency room for evaluation for possible metastatic disease or prolapse/collapsed vertebra. His PSA at that time was 34.24 and his testosterone was 19.9. New right sixth and eighth anterior lateral rib focus of increased activity. Recently diagnosed with thyroid cancer status post thyroidectomy with lymph node dissection now radioactive iodine therapy was under consideration as of June 2018. Mr. Jacobs was seen in the emergency room on 09/07/2018 for low back pain. He apparently been having back pain for 2 weeks. It was described as intermittent dull and sharp pain sometimes radiating to the left hip. It has gotten progressively worse. The pain medication was only partly relieving it. He did have a CT of the lumbar spine on 09/07/2018. It showed progressive sclerotic metastatic disease along the posterior margin of the right L1 vertebral body, the superior endplates of L3 and L4, left L3 pedestal, sclerotic focus involving the right anterior aspect of the L5 body and sclerotic focus along the lateral margin of the right iliac bone. He was referred to Dr. Corral for consideration of palliative radiation therapy. Dr. Corral did see him the same day on 09/07/2018. And did recommend palliative radiation to the lower back to control the metastatic disease in relieve pain. He was also started on Decadron 4 mg every 6 hours for 7 days in the emergency room on 09/07/2018. Mr Jacobs received radiation therapy to the spine He received 3000 cGy total dose to the SPINE GTV30 starting 09/13/2018 and ending 10/01/2018. He then received treatment to T10 spine, ref ID: [id number] Spine to a total dose of 3000 cGy starting 02/03/2019 and ending on 02/17/2019. He has had an excellent response to the radiation with his back pain resolved. He has been on denosumab since June 10, 2018 per our chart. He continues with Zoladex with his last dose being given on March 25, 2019. He also received denosumab at that time as well. Mr. Jacobs is here today to begin further treatment for his disease progression. He has had significant elevation of his PSA on March 25, 2019 it was 44. On January 20, 2019 it was 29. has recommended that he pursue treatment with Zytiga/prednisone and continue the every 3-month dose of Zoladex and monthly denosumab. Persistent leukopenia, bone marrow done on July 07, 2019 showed no evidence of myelodysplasia or any other marrow abnormality, could be due to treatment with radioactive iodine Plan: Discussed with patient regarding his labs white blood count 2.7 hemoglobin 12.4 hematocrit 38.4 platelets 136,000 ANC 1.8 CMP within normal limits PSA 22.37 compared to 18.63 on September 30, 2019 Clinically, patient is doing well with no new signs symptoms, his back pain is under control with current pain medication, he is tolerating 3 monthly Zoladex and daily Zytiga/prednisone along with monthly Xgeva well but with expected side effects. We will proceed with his next monthly dose of Xgeva today then he will return to clinic in 1 month His follow-up lab work-up shows persistent and mildly progressive PSA and he may have hormone resistant prostate cancer but concern is his persistent leukopenia and fluctuating mild thrombocytopenia which will limit therapy with bone marrow suppression as main side effect. Right now he has stable disease but if there is a new symptom or further disease progression, we will discuss other treatment options. Return to clinic in 1 month with CBC and PSA/testosterone level Signed By: Daniel Monahan M.D. <<Signature on File>>
== END 2019-11-03 07:45 | disposition home or self-care (01) ==
LOC: ONCMED 07:48
PROVIDERS: PCP Family Medicine; Visit Provider Internal Medicine Hematology & Oncology
DX: C61 Malignant neoplasm of prostate (principal); C79.51 Secondary malignant neoplasm of bone; C73 Malignant neoplasm of thyroid gland; D72.819 Decreased white blood cell count, unspecified; D69.6 Thrombocytopenia, unspecified; R97.21 Rising PSA following treatment for malignant neoplasm of prostate; E89.0 Postprocedural hypothyroidism; Z92.3 Personal history of irradiation; Z79.818 Long term (current) use of other agents affecting estrogen receptors and estrogen levels; Z79.899 Other long term (current) drug therapy
CPT/HCPCS: 96372; 99214; J0897

== ENCOUNTER 2019-12-01 06:11 | Outpatient (CLI) | payer MEDICARE, MEDICAID, SELFPAY ==
[2019-12-01 08:19] LABS: Basophils % 0.3 %; Eosinophils % 1.3 %; Hematocrit 39.7 % (42.0-52.0); Hemoglobin 12.6 g/dL (11.7-16.6); Lymphocytes # 0.6 10^3/uL (0.8-4.8); Lymphocytes % 18.9 %; Mean Corpuscular HGB Conc 31.7 g/dL (30.0-36.0); Mean Corpuscular Hemoglobin 32.4 pg (28.0-34.0); Mean Corpuscular Volume 102.1 fL (80-94); Monocytes # 0.4 10^3/uL (0.2-0.9); Monocytes % 12.4 %; Neutrophils # 2.05 10^3/uL (1.8-7.7); Neutrophils % 66.8 %; Nucleated Red Blood Cells % 0 %; Platelet Count 132 10^3/cmm (130-400); Red Blood Count 3.89 10^6/uL (4.1-5.3); Red Cell Distribution Width 13.2 % (12.1-15.1); White Blood Count 3.1 10^3/uL (4.0-10.0)
[2019-12-01 08:51] LABS: Testosterone Total 2.5 ng/dL (193-740)
== END 2019-12-01 06:12 | disposition home or self-care (01) ==
LOC: ONCMED 06:13
PROVIDERS: PCP Family Medicine; Visit Provider Internal Medicine Hematology & Oncology
DX: C61 Malignant neoplasm of prostate (principal); C73 Malignant neoplasm of thyroid gland; C79.51 Secondary malignant neoplasm of bone
CPT/HCPCS: 36415; 84153; 84403; 85025

== ENCOUNTER 2019-12-05 05:52 | Outpatient (CLI) | payer MEDICARE, MEDICAID, SELFPAY ==
[2019-12-05] MEDS: denosumab 120 mg SDV SUBCUT (09:00)
--- NOTE | 2019-12-05 09:03 | ONC FU_ITS ---
Dr. Monahan follow up note Patient: Charlie Jacobs Unit #: [id number]: [id number] Dicatated By: Daniel Monahan M.D.Date of Visit:Dec 05, 2019 Onc Med Follow-up/Prog Note History of Present Illness: Mr. Jacobs is a 74-year-old gentleman with history of prostate cancer initially diagnosed in December 2006. At that time, his PSA was 7.1 and left sided nodule biopsies showed 6 out of 12 cores positive for 3+3/3+4 BALLOON SANDER with 20-60% involvement. He received external beam radiation therapy which he completed in March 2007. Follow-up PSA level showed good response but start increasing and peak prior to initiation of hormonal therapy was 6.1, patient underwent rebiopsy on 09/14/2009 which showed suspicious pathology but not diagnostic. Mr Jacobs was started on LHRH agonist in December 2009 with 2 weeks of Casodex. He had excellent response. PSA was undetectable till January 2012 thereafter slow rise e.g. 0.27 on 08/05/2012 and 2 in May 2013, 7 in November 2013 and 8.4 in March 2015. Bicalutamide was added. In September 2015 and later stopped after increasing PSA again. In April 2017 bilateral scrotal orchiectomy was done. But PSA continued to rise in January 2018 was around 19 and in April 2018,gone up to 39.58. At that time, he started on Casodex 50 mg by mouth daily and CT scan of abdomen pelvis was done on 04/25/2018 which showed no pelvic lymphadenopathy but nonspecific multifocal osseous sclerotic foci; descending sigmoid colon diverticulosis with the descending sigmoid colon junction short segment diverticulitis patient was treated with antibiotics. Zoladex 10.8 mg was started on 06/01/2018. In the meantime, Mr Jacobs developed a mass in the right side of his neck and further investigation led to the diagnosis of thyroid cancer. He underwent thyroidectomy with lymph node dissection- as per patient, cancer was involving lymph nodes. s/p radioactive iodine treatment in early June in [facility]. Mr. Jacobs was seen in the emergency room on 09/07/2018 for low back pain. He apparently had been having back pain for 2 weeks. It was described as intermittent dull and sharp pain sometimes radiating to the left hip. It has gotten progressively worse. The pain medication was only partly relieving it. He did have a CT of the lumbar spine on 09/07/2018. It showed progressive sclerotic metastatic disease along the posterior margin of the right L1 vertebral body, the superior endplates of L3 and L4, left L3 pedestal, sclerotic focus involving the right anterior aspect of the L5 body and sclerotic focus along the lateral margin of the right iliac bone. He was referred to Dr. Corral for consideration of palliative radiation therapy. Dr. Corral did see him the same day on 09/07/2018 and did recommend palliative radiation to the lower back to control the metastatic disease and relieve pain. He was also started on Decadron 4 mg every 6 hours for 7 days in the emergency room on 09/07/2018. Mr Jacobs received radiation therapy to the spine He received 3000 cGy total dose to the SPINE GTV30 starting 09/13/2018 and ending 10/01/2018. He then received treatment to T10 spine, ref ID: [id number] Spine to a total dose of 3000 cGy starting 02/03/2019 and ending on 02/17/2019. He has had an excellent response to the radiation with his back pain resolved. He has been on denosumab since June 10, 2018 per our chart. He continues with Zoladex with his last dose being given on August 30, 2019. He also received denosumab at that time as well. He had significant elevation of his PSA on March 25, 2019 it was 44. On January 20, 2019 it was 29. It was recommended that he pursue treatment with Zytiga/prednisone and continue the every 3-month dose of Zoladex and monthly denosumab. As per patient, he went to emergency room with hypertension and abdominal discomfort. He underwent a CT scan of abdomen on the 04/09/2019 which showed nonspecific bibasilar groundglass opacity consistent with atelectasis edema or pneumonia. Unchanged size of sclerotic bone lesions. Avascular necrosis of right femoral head. Diverticulosis without diverticulitis. No hydronephrosis. His blood pressure was within normal range and pulse was between 90 and 100 and as per patient and his EKG did not show any abnormality. Patient was treated IV fluid and discharge home on oral antibiotic Flagyl for presumed diagnosis of diverticulitis, was referred to Dr. Fermin for GI evaluation, as per patient now colonoscopy is under consideration. His labs ER on 04/09/2019 shows white blood count 2.6 and globin 12.4 hematocrit 37 platelets 130,000 CMP within normal limits The zytiga /prednisone was discontinued by Mr Jacobs on 04/11/2019 because of diarrhea and hypertension. It was restarted on 05/26/2019. CT scan of thoracic lumbar spine done on June 27, 2019 showed no changes in thoracic spine. shows arthropathy and lumbar spine show slight progressed blastic lesion in L1, 8.2 mm but severe central canal stenosis in L3-4, and L4-5 and advanced arthropathy. tolerating Zytiga. Prednisone, Zoladex and Xgeva. Came for follow-up, denies any specific complaint except chronic lower back pain for which he is being referred to neurosurgery and scheduled to see neurosurgeon in [place] on January 03, 2020. His back pain is under control with current pain medication. Denies any fever chills but occasional cough no hemoptysis or hematemesis. No nausea or vomiting. No abdominal pain. No jaundice no skin rash. Tolerating Zoladex/Zytiga/prednisone well along with monthly Xgeva. Medications: Albuterol Sulfate 1 puff(s) (of (2.5 mg/3ml) 0.083%) Nebulization solution Inhalation four times a day, Alfuzosin HCl ER 1 Tablet (of 10 mg) Tablet SR 24 HR Oral at bedtime, Aspirin 1 Tablet (of 81 mg) Oral daily, Atorvastatin Calcium 1 Tablet (of 80 mg) Oral daily, Belsomra 1 Tablet (of 15 mg) Oral at bedtime PRN, Cetirizine HCl 1 Tablet (of 10 mg) Oral daily, Cyclobenzaprine HCl 0.5 - 1 Tablet (of 10 mg) Oral t.i.d. PRN, Esomeprazole Magnesium 1 Capsule (of 40 mg) Capsule Delayed Release Oral daily, HYDROcodone-Acetaminophen 1 Tablet (of 10-325 mg) Oral four times a day PRN, Ipratropium-Albuterol 1 puff(s) (of 0.5-2.5 (3) mg/3ml) Solution Inhalation q 4 hours PRN, Januvia 1 Tablet (of 25 mg) Oral daily, Levothyroxine Sodium 1 Tablet (of 175 mcg) Oral daily, Lisinopril 0.5 Tablet (of 20 mg) Oral daily, Metoprolol Succinate ER 1 Tablet (of 25 mg) Tablet SR 24 HR Oral daily, Mirtazapine 1 Tablet (of 7.5 mg) Oral daily, Montelukast Sodium 1 Tablet (of 10 mg) Oral daily, Nitroglycerin 1 Tablet (of 0.4 mg) Tablet, sublingual Sublingual PRN, ProAir HFA 1 puff(s) (of 108 (90 base) mcg/act) Aerosol, solution Inhalation q 4 hours PRN, Probiotic Digestive Support 1 Capsule Oral daily, Trelegy Ellipta 1 Puff(s) (of 100-62.5-25 mcg/inh) Aerosol Powder, Breath Activated Inhalation daily, Xgeva 1 Subcutaneous q 30 days, Zetia 1 Tablet (of 10 mg) Oral daily, Zoladex (10.8 mg) Subcutaneous q 12 weeks Allergies: Vancomycin HCl Review of Systems: Constitutional - Appetite and weight are stable. No fever, chills, hot flashes or night sweats. Energy level is good, ENMT - Negative for sinus congestion. No mouth sores. No sore throat or difficulty swallowing, Hematologic/Lymphatic - No abnormal bruising or bleeding, Respiratory - No shortness of breath. No cough. No pleuritic pain or hemoptysis, Cardiovascular - No angina pain. No palpitations, Gastrointestinal - Pt denies nausea. No heartburn or acid reflux. Positive for diarrhea. No constipation. No blood in the stool or black stools, Musculoskeletal - Pt reports chronic back pain, Neurologic - No headache. Positive for dizziness. Pt reports numbness in feet, Psychiatric - No anxiety or depression. No insomnia. Vital Signs: Performed on Dec 05, 2019 08:22 Height - 75.00 in Weight - 242.0 lbs BSA - 2.38 sq.m BMI - 30.25 (HIGH) Temperature - 97.9 F (LOW) Pulse - 66 /min Respiration - 18 /min BP - 180/96 mm(hg) (HIGH) O2 Sat - 95 % (LOW) Pain - 6 Performance Status: 1 - No physically strenuous activity, but ambulatory and able to carry out light or sedentary work (e.g. office work, light house work). (ECOG) Physical Examination: ENMT - No mouth sores, no thrush, no jaundice, Respiratory - Lungs are clear to auscultation, Cardiovascular - Regular rate and rhythm of heart, Abdomen - Soft, bowel sounds present, Extremities - No visible edema. Lab/Imaging: Test performed on Aug 29, 2019 10:34 WBC 2.5 10 3/uL RBC 3.99 10 6/uL HGB 12.5 g/dL HCT 39.8 % MCV 99.7 fL MCH 31.3 pg MCHC 31.4 g/dL RDW 13.3 % Platelet Count 119 10 3/cmm MPV 11.4 fL Neutrophils 1.50 10 3/uL Lymphocytes 0.6 10 3/uL Monocytes 0.3 10 3/uL Eosinophils 0.0 10 3/uL Basophils 0.0 10 3/uL Neutrophil % 60.5 % Lymphocyte % 23.0 % Monocyte % 13.3 % Eosinophil % 1.2 % Basophils % 0.8 % NRBC % 0 % PSA 21.730 ng/mL Test performed on June 24, 2019 09:28 Sodium 145 mmol/L Potassium 3.8 mmol/L Chloride 110 mmol/L CO2 26 mmol/L Anion Gap 12.8 BUN 10 mg/dL Creatinine 0.7 mg/dL Cr Clearance (Est) 130.5600 mL/min Glucose 119 mg/dL Calcium 8.9 mg/dL Protein, Total 6.8 g/dL Albumin 3.5 g/dL Globulin 3.3 g/dL Bilirubin, Total 0.2 mg/dL ALT (SGPT) 18 U/L AST (SGOT) 20 U/L Alkaline Phosphatase 75 IU/L Impression: Biochemical recurrence, CT scan of abdomen pelvis done on 04/25/2018 showed sclerotic lesions in the pelvic bones no pelvic lymphadenopathy or abnormal mass. History of prostrate cancer initially diagnosed in 2006 at that time his PSA was 7.1 and left-sided nodule biopsy showed 6 out of 12 cores positive for 3+3/3+ for BALLOON SANDER with 20-60% involvement status post external beam radiation therapy completed in March 2007 Follow-up PSA showed excellent response till 2009 when PSA started going up underwent rebiopsy of prostate on 09/14/2009 which was nondiagnostic but suspicious for malignancy. Started on LHRH agonist in December 2009 2 weeks of Casodex, excellent response PSA become undetectable still January 2012 with slow rise thereafter e.g. 0.27 on 08/05/2012, 2 in May 2013, 7 in November 2013, 8.4 in March 2015 bicalutamide was admitted in September 2015 later stopped after PSA continued to go up, subsequently underwent bilateral scrotal orchiectomy in April 2017 PSA continued to rise around 20 on 01/28/2018 for the gone up to 39.58 in April 2018, at that time Casodex 50 mg by mouth was started and patient was referred to medical oncology clinic Zoladex 10.8 mg every 3 months started on 06/01/2018 Bone scan done on 06/01/2018 showed L3 and L4 vertebral body increased activity corresponding to the prior CT sclerosis. Left T10 and T7 lateral vertebral body or facet increase activity you from prior exam done in December 2006,. New right lateral posterior ninth rib focus of increased activity. did see Mr. Jacobs in August 2018 at which time Mr. Jacobs was having moderate to severe distress with progressive lower back pain. He was sent to the emergency room for evaluation for possible metastatic disease or prolapse/collapsed vertebra. His PSA at that time was 34.24 and his testosterone was 19.9. New right sixth and eighth anterior lateral rib focus of increased activity. Recently diagnosed with thyroid cancer status post thyroidectomy with lymph node dissection now radioactive iodine therapy was under consideration as of June 2018. Mr. Jacobs was seen in the emergency room on 09/07/2018 for low back pain. He apparently been having back pain for 2 weeks. It was described as intermittent dull and sharp pain sometimes radiating to the left hip. It has gotten progressively worse. The pain medication was only partly relieving it. He did have a CT of the lumbar spine on 09/07/2018. It showed progressive sclerotic metastatic disease along the posterior margin of the right L1 vertebral body, the superior endplates of L3 and L4, left L3 pedestal, sclerotic focus involving the right anterior aspect of the L5 body and sclerotic focus along the lateral margin of the right iliac bone. He was referred to Dr. Corral for consideration of palliative radiation therapy. Dr. Corral did see him the same day on 09/07/2018. And did recommend palliative radiation to the lower back to control the metastatic disease in relieve pain. He was also started on Decadron 4 mg every 6 hours for 7 days in the emergency room on 09/07/2018. Mr Jacobs received radiation therapy to the spine He received 3000 cGy total dose to the SPINE GTV30 starting 09/13/2018 and ending 10/01/2018. He then received treatment to T10 spine, ref ID: T10 Spine to a total dose of 3000 cGy starting 02/03/2019 and ending on 02/17/2019. He has had an excellent response to the radiation with his back pain resolved. He has been on denosumab since June 10, 2018 per our chart. He continues with Zoladex with his last dose being given on March 25, 2019. He also received denosumab at that time as well. Mr. Jacobs is here today to begin further treatment for his disease progression. He has had significant elevation of his PSA on March 25, 2019 it was 44. On January 20, 2019 it was 29. has recommended that he pursue treatment with Zytiga/prednisone and continue the every 3-month dose of Zoladex and monthly denosumab. Persistent leukopenia, bone marrow done on July 07, 2019 showed no evidence of myelodysplasia or any other marrow abnormality, could be due to treatment with radioactive iodine Plan: Discussed with patient regarding his labs white blood count 3.1 hemoglobin 12.6 hematocrit 39.7 platelets 132,000 PSA 19.96 compared to 22.37 on November 01, 2019 testosterone 2.5 Clinically, patient is doing well with no new signs symptom except chronic back pain which is under control with current pain medication and he is scheduled to see neurosurgery in [place] on January 03, 2020. His follow-up labs shows PSA continue to improve and his testosterone level is in desirable range. At this point we will proceed with this monthly dose of Xgeva today then he will return to clinic in 1 month with CBC and PSA. As per the mild leukopenia is concerned, is improving, will continue to monitor. Signed By: Daniel Monahan M.D. <<Signature on File>>
== END 2019-12-05 05:53 | disposition home or self-care (01) ==
LOC: ONCMED 05:55
PROVIDERS: PCP Family Medicine; Visit Provider Internal Medicine Hematology & Oncology
DX: C61 Malignant neoplasm of prostate (principal); C79.51 Secondary malignant neoplasm of bone; C73 Malignant neoplasm of thyroid gland; G89.29 Other chronic pain; M54.9 Dorsalgia, unspecified; E89.0 Postprocedural hypothyroidism; D72.819 Decreased white blood cell count, unspecified; Z79.818 Long term (current) use of other agents affecting estrogen receptors and estrogen levels; Z92.3 Personal history of irradiation; Z79.899 Other long term (current) drug therapy; Z79.52 Long term (current) use of systemic steroids
CPT/HCPCS: 96372; 99214; J0897

== ENCOUNTER → 2019-12-09 09:34 | Outpatient (BNVA) | payer MEDICARE, MEDICAID, SELFPAY | PROVIDERS: PCP Family Medicine; Visit Provider Family Medicine | DX: E11.9 Type 2 diabetes mellitus without complications (principal); E78.5 Hyperlipidemia, unspecified; J43.1 Panlobular emphysema; F17.219 Nicotine dependence, cigarettes, with unspecified nicotine-induced disorders | CPT/HCPCS: 80053; 80061; 82043; 83036 ==

== ENCOUNTER 2019-12-26 10:31 | Outpatient (CLI) | payer MEDICARE, MEDICAID, SELFPAY ==
[2019-12-27 16:09] LABS: Thyroglobulin AB <1 IU/mL (< or = 1)
== END 2019-12-26 10:32 | disposition home or self-care (01) ==
LOC: ONCMED 10:35
PROVIDERS: Internal Medicine Hematology & Oncology; PCP Internal Medicine Endocrinology, Diabetes & Metabolism; Visit Provider Internal Medicine Endocrinology, Diabetes & Metabolism
DX: C73 Malignant neoplasm of thyroid gland (principal); C79.51 Secondary malignant neoplasm of bone; Z85.46 Personal history of malignant neoplasm of prostate
CPT/HCPCS: 36415; 86800

== ENCOUNTER 2020-01-09 05:43 | Outpatient (CLI) | payer MEDICARE, MEDICAID, SELFPAY ==
[2020-01-09 10:28] LABS: Basophils % 0.2 %; Eosinophils # 0.1 10^3/uL (0.0-0.8); Eosinophils % 1.1 %; Hematocrit 40.5 % (42.0-52.0); Hemoglobin 13.1 g/dL (11.7-16.6); Lymphocytes # 0.7 10^3/uL (0.8-4.8); Lymphocytes % 16.5 %; Mean Corpuscular HGB Conc 32.3 g/dL (30.0-36.0); Mean Corpuscular Hemoglobin 32.5 pg (28.0-34.0); Mean Corpuscular Volume 100.5 fL (80-94); Mean Platelet Volume 10.3 fL (7.4-10.4); Monocytes # 0.5 10^3/uL (0.2-0.9); Monocytes % 11.4 %; Neutrophils # 3.06 10^3/uL (1.8-7.7); Neutrophils % 70.1 %; Nucleated Red Blood Cells % 0 %; Platelet Count 128 10^3/cmm (130-400); Red Blood Count 4.03 10^6/uL (4.1-5.3); Red Cell Distribution Width 12.6 % (12.1-15.1); White Blood Count 4.4 10^3/uL (4.0-10.0)
== END 2020-01-09 05:44 | disposition home or self-care (01) ==
LOC: ONCMED 05:46
PROVIDERS: PCP Internal Medicine Endocrinology, Diabetes & Metabolism; Visit Provider Internal Medicine Hematology & Oncology
DX: C61 Malignant neoplasm of prostate (principal); C79.51 Secondary malignant neoplasm of bone; C73 Malignant neoplasm of thyroid gland
CPT/HCPCS: 36415; 84153; 85025

== ENCOUNTER 2020-01-11 05:34 | Outpatient (CLI) | payer MEDICARE, MEDICAID, SELFPAY ==
--- NOTE | 2020-01-11 11:05 | ONC FU_ITS ---
Dr. Monahan follow up note Patient: Charlie Jacobs Unit #: [id number]: 1945 Dicatated By: Daniel Monahan M.D.Date of Visit:Jan 11, 2020 Onc Med Follow-up/Prog Note History of Present Illness: Mr. Jacobs is a 74-year-old gentleman with history of prostate cancer initially diagnosed in December 2006. At that time, his PSA was 7.1 and left sided nodule biopsies showed 6 out of 12 cores positive for 3+3/3+4 BLACK LEATHER TRIMMER with 20-60% involvement. He received external beam radiation therapy which he completed in March 2007. Follow-up PSA level showed good response but start increasing and peak prior to initiation of hormonal therapy was 6.1, patient underwent rebiopsy on 09/14/2009 which showed suspicious pathology but not diagnostic. Mr Jacobs was started on LHRH agonist in December 2009 with 2 weeks of Casodex. He had excellent response. PSA was undetectable till January 2012 thereafter slow rise e.g. 0.27 on 08/05/2012 and 2 in May 2013, 7 in November 2013 and 8.4 in March 2015. Bicalutamide was added. In September 2015 and later stopped after increasing PSA again. In April 2017 bilateral scrotal orchiectomy was done. But PSA continued to rise in January 2018 was around 19 and in April 2018,gone up to 39.58. At that time, he started on Casodex 50 mg by mouth daily and CT scan of abdomen pelvis was done on 04/25/2018 which showed no pelvic lymphadenopathy but nonspecific multifocal osseous sclerotic foci; descending sigmoid colon diverticulosis with the descending sigmoid colon junction short segment diverticulitis patient was treated with antibiotics. Zoladex 10.8 mg was started on 06/01/2018. In the meantime, Mr Jacobs developed a mass in the right side of his neck and further investigation led to the diagnosis of thyroid cancer. He underwent thyroidectomy with lymph node dissection- as per patient, cancer was involving lymph nodes. s/p radioactive iodine treatment in early June in [facility]. Mr. Jacobs was seen in the emergency room on 09/07/2018 for low back pain. He apparently had been having back pain for 2 weeks. It was described as intermittent dull and sharp pain sometimes radiating to the left hip. It has gotten progressively worse. The pain medication was only partly relieving it. He did have a CT of the lumbar spine on 09/07/2018. It showed progressive sclerotic metastatic disease along the posterior margin of the right L1 vertebral body, the superior endplates of L3 and L4, left L3 pedestal, sclerotic focus involving the right anterior aspect of the L5 body and sclerotic focus along the lateral margin of the right iliac bone. He was referred to Dr. Corral for consideration of palliative radiation therapy. Dr. Corral did see him the same day on 09/07/2018 and did recommend palliative radiation to the lower back to control the metastatic disease and relieve pain. He was also started on Decadron 4 mg every 6 hours for 7 days in the emergency room on 09/07/2018. Mr Jacobs received radiation therapy to the spine He received 3000 cGy total dose to the SPINE GTV30 starting 09/13/2018 and ending 10/01/2018. He then received treatment to T10 spine, ref ID: [id number] Spine to a total dose of 3000 cGy starting 02/03/2019 and ending on 02/17/2019. He has had an excellent response to the radiation with his back pain resolved. He has been on denosumab since June 10, 2018 per our chart. He continues with Zoladex with his last dose being given on August 30, 2019. He also received denosumab at that time as well. He had significant elevation of his PSA on March 25, 2019 it was 44. On January 20, 2019 it was 29. It was recommended that he pursue treatment with Zytiga/prednisone and continue the every 3-month dose of Zoladex and monthly denosumab. As per patient, he went to emergency room with hypertension and abdominal discomfort. He underwent a CT scan of abdomen on the 04/09/2019 which showed nonspecific bibasilar groundglass opacity consistent with atelectasis edema or pneumonia. Unchanged size of sclerotic bone lesions. Avascular necrosis of right femoral head. Diverticulosis without diverticulitis. No hydronephrosis. His blood pressure was within normal range and pulse was between 90 and 100 and as per patient and his EKG did not show any abnormality. Patient was treated IV fluid and discharge home on oral antibiotic Flagyl for presumed diagnosis of diverticulitis, was referred to Dr. Fermin for GI evaluation, as per patient now colonoscopy is under consideration. His labs ER on 04/09/2019 shows white blood count 2.6 and globin 12.4 hematocrit 37 platelets 130,000 CMP within normal limits The zytiga /prednisone was discontinued by Mr Jacobs on 04/11/2019 because of diarrhea and hypertension. It was restarted on 05/26/2019. CT scan of thoracic lumbar spine done on June 27, 2019 showed no changes in thoracic spine. shows arthropathy and lumbar spine show slight progressed blastic lesion in L1, 8.2 mm but severe central canal stenosis in L3-4, and L4-5 and advanced arthropathy. tolerating Zytiga. Prednisone, Zoladex and Xgeva. Came for follow-up, denies any specific complaint except chronic lower back pain which is better now and under control with current pain medication, patient was supposed to go to [place] neurosurgery for evaluation for his chronic back pain on January 03, 2020 but patient decided not to go to [place] rather prefer a local surgeon. Denies any fever chills denies any nausea or vomiting denies any diarrhea constipation denies any lower extremity weakness or numbness denies any urine or stool incontinence occasionally hot flashes otherwise tolerating Zoladex/Xgeva/Zytiga/prednisone well Medications: Albuterol Sulfate 1 puff(s) (of (2.5 mg/3ml) 0.083%) Nebulization solution Inhalation four times a day, Alfuzosin HCl ER 1 Tablet (of 10 mg) Tablet SR 24 HR Oral at bedtime, Aspirin 1 Tablet (of 81 mg) Oral daily, Atorvastatin Calcium 1 Tablet (of 80 mg) Oral daily, Belsomra 1 Tablet (of 15 mg) Oral at bedtime PRN, Cetirizine HCl 1 Tablet (of 10 mg) Oral daily, Cyclobenzaprine HCl 0.5 - 1 Tablet (of 10 mg) Oral t.i.d. PRN, Esomeprazole Magnesium 1 Capsule (of 40 mg) Capsule Delayed Release Oral daily, HYDROcodone-Acetaminophen 1 Tablet (of 10-325 mg) Oral four times a day PRN, Ipratropium-Albuterol 1 puff(s) (of 0.5-2.5 (3) mg/3ml) Solution Inhalation q 4 hours PRN, Januvia 1 Tablet (of 25 mg) Oral daily, Levothyroxine Sodium 1 Tablet (of 175 mcg) Oral daily, Lisinopril 0.5 Tablet (of 20 mg) Oral daily, Metoprolol Succinate ER 1 Tablet (of 25 mg) Tablet SR 24 HR Oral daily, Mirtazapine 1 Tablet (of 7.5 mg) Oral daily, Montelukast Sodium 1 Tablet (of 10 mg) Oral daily, Nitroglycerin 1 Tablet (of 0.4 mg) Tablet, sublingual Sublingual PRN, ProAir HFA 1 puff(s) (of 108 (90 base) mcg/act) Aerosol, solution Inhalation q 4 hours PRN, Probiotic Digestive Support 1 Capsule Oral daily, Trelegy Ellipta 1 Puff(s) (of 100-62.5-25 mcg/inh) Aerosol Powder, Breath Activated Inhalation daily, Xgeva 1 Subcutaneous q 30 days, Zetia 1 Tablet (of 10 mg) Oral daily, Zoladex (10.8 mg) Subcutaneous q 12 weeks Allergies: Vancomycin HCl Review of Systems: Constitutional - Appetite and weight are stable. No fever, chills, hot flashes or night sweats. Energy level is good, ENMT - Negative for sinus congestion. No mouth sores. No sore throat or difficulty swallowing, Hematologic/Lymphatic - No abnormal bruising or bleeding, Respiratory - No shortness of breath. No cough. No pleuritic pain or hemoptysis, Cardiovascular - No angina pain. No palpitations, Gastrointestinal - Pt denies nausea. No heartburn or acid reflux. Positive for diarrhea. No constipation. No blood in the stool or black stools, Musculoskeletal - Pt reports chronic back pain, Neurologic - No headache. Positive for dizziness. Pt reports numbness in feet, Psychiatric - No anxiety or depression. No insomnia. Vital Signs: Performed on Jan 11, 2020 10:39 Height - 75.00 in Weight - 238.4 lbs (LOW) BSA - 2.36 sq.m BMI - 29.80 Temperature - 97.4 F (LOW) Pulse - 53 /min (LOW) Respiration - 20 /min BP - 144/85 mm(hg) (HIGH) O2 Sat - 96 % Pain - 0 Performance Status: 1 - No physically strenuous activity, but ambulatory and able to carry out light or sedentary work (e.g. office work, light house work). (ECOG) Physical Examination: ENMT - No mouth sores, no thrush,No jaundice, Respiratory - Lungs are clear to auscultation, Cardiovascular - Regular rate and rhythm of heart, Abdomen - Soft, bowel sounds present, Extremities - No visible edema or rash. Lab/Imaging: Test performed on Dec 01, 2019 08:06 Testosterone, Total 2.5 ng/dL WBC 3.1 10 3/uL RBC 3.89 10 6/uL HGB 12.6 g/dL HCT 39.7 % MCV 102.1 fL MCH 32.4 pg MCHC 31.7 g/dL RDW 13.2 % Platelet Count 132 10 3/cmm MPV 11.0 fL Neutrophils 2.05 10 3/uL Lymphocytes 0.6 10 3/uL Monocytes 0.4 10 3/uL Eosinophils 0.0 10 3/uL Basophils 0.0 10 3/uL Neutrophil % 66.8 % Lymphocyte % 18.9 % Monocyte % 12.4 % Eosinophil % 1.3 % Basophils % 0.3 % NRBC % 0 % PSA 19.960 ng/mL Impression: Biochemical recurrence, CT scan of abdomen pelvis done on 04/25/2018 showed sclerotic lesions in the pelvic bones no pelvic lymphadenopathy or abnormal mass. History of prostrate cancer initially diagnosed in 2006 at that time his PSA was 7.1 and left-sided nodule biopsy showed 6 out of 12 cores positive for 3+3/3+ for BLACK LEATHER TRIMMER with 20-60% involvement status post external beam radiation therapy completed in March 2007 Follow-up PSA showed excellent response till 2009 when PSA started going up underwent rebiopsy of prostate on 09/14/2009 which was nondiagnostic but suspicious for malignancy. Started on LHRH agonist in December 2009 2 weeks of Casodex, excellent response PSA become undetectable still January 2012 with slow rise thereafter e.g. 0.27 on 08/05/2012, 2 in May 2013, 7 in November 2013, 8.4 in March 2015 bicalutamide was admitted in September 2015 later stopped after PSA continued to go up, subsequently underwent bilateral scrotal orchiectomy in April 2017 PSA continued to rise around 20 on 01/28/2018 for the gone up to 39.58 in April 2018, at that time Casodex 50 mg by mouth was started and patient was referred to medical oncology clinic Zoladex 10.8 mg every 3 months started on 06/01/2018 Bone scan done on 06/01/2018 showed L3 and L4 vertebral body increased activity corresponding to the prior CT sclerosis. Left T10 and T7 lateral vertebral body or facet increase activity you from prior exam done in December 2006,. New right lateral posterior ninth rib focus of increased activity. did see Mr. Jacobs in August 2018 at which time Mr. Jacobs was having moderate to severe distress with progressive lower back pain. He was sent to the emergency room for evaluation for possible metastatic disease or prolapse/collapsed vertebra. His PSA at that time was 34.24 and his testosterone was 19.9. New right sixth and eighth anterior lateral rib focus of increased activity. Recently diagnosed with thyroid cancer status post thyroidectomy with lymph node dissection now radioactive iodine therapy was under consideration as of June 2018. Mr. Jacobs was seen in the emergency room on 09/07/2018 for low back pain. He apparently been having back pain for 2 weeks. It was described as intermittent dull and sharp pain sometimes radiating to the left hip. It has gotten progressively worse. The pain medication was only partly relieving it. He did have a CT of the lumbar spine on 09/07/2018. It showed progressive sclerotic metastatic disease along the posterior margin of the right L1 vertebral body, the superior endplates of L3 and L4, left L3 pedestal, sclerotic focus involving the right anterior aspect of the L5 body and sclerotic focus along the lateral margin of the right iliac bone. He was referred to Dr. Corral for consideration of palliative radiation therapy. Dr. Corral did see him the same day on 09/07/2018. And did recommend palliative radiation to the lower back to control the metastatic disease in relieve pain. He was also started on Decadron 4 mg every 6 hours for 7 days in the emergency room on 09/07/2018. Mr Jacobs received radiation therapy to the spine He received 3000 cGy total dose to the SPINE GTV30 starting 09/13/2018 and ending 10/01/2018. He then received treatment to T10 spine, ref ID: T10 Spine to a total dose of 3000 cGy starting 02/03/2019 and ending on 02/17/2019. He has had an excellent response to the radiation with his back pain resolved. He has been on denosumab since June 10, 2018 per our chart. He continues with Zoladex with his last dose being given on March 25, 2019. He also received denosumab at that time as well. Mr. Jacobs is here today to begin further treatment for his disease progression. He has had significant elevation of his PSA on March 25, 2019 it was 44. On January 20, 2019 it was 29. has recommended that he pursue treatment with Zytiga/prednisone and continue the every 3-month dose of Zoladex and monthly denosumab. Persistent leukopenia, bone marrow done on July 07, 2019 showed no evidence of myelodysplasia or any other marrow abnormality, could be due to treatment with radioactive iodine Plan: Discussed with patient regarding his labs white blood count 4.4 hemoglobin 13.1 hematocrit 40.5 platelets 128,000 ANC 3060 and PSA 10.99 compared to 19.96 on December 01, 2019 Clinically, patient is doing well with no new signs symptom except chronic lower back pain which is under control with current pain medication, patient was scheduled to see neurosurgery in [place] in the last week of December 2019 but decided not to go and now prefer to see local surgeon, will refer him to local orthopedics for evaluation as far as the chronic lower back pain is concerned. As far as prostate cancer is concerned, now responding well to 3 monthly Zoladex/monthly Xgeva and daily Zytiga/prednisone as his follow-up PSA showed significant drop, now 10.99 compared to 19.96 on December 01, 2019. So in that case we will continue with same treatment will proceed with his 3 monthly dose of Zoladex and monthly dose of Xgeva today and patient will continue with daily Zytiga and prednisone and then return to clinic in 1 month with CBC and PSA and for monthly dose of Xgeva. Leukopenia/thrombocytopenia is concerned, is mild thrombocytopenia stable but leukopenia has resolved now. We will continue to monitor his CBC. Return to clinic in 1 month with CBC and PSA. And also refer him to local orthopedics for evaluation for his chronic lower back. Painr. Signed By: Daniel Monahan M.D. <<Signature on File>>
[2020-01-11] MEDS: lidocaine 1% INJ 20 mL INJECTION (11:15)
[2020-01-11] MEDS: goserelin acetate 10.8 mg Implant IM (11:28)
[2020-01-11] MEDS: denosumab 120 mg SDV SUBCUT (11:29)
== END 2020-01-11 05:35 | disposition home or self-care (01) ==
LOC: ONCMED 05:40
PROVIDERS: PCP Internal Medicine Endocrinology, Diabetes & Metabolism; Visit Provider Internal Medicine Hematology & Oncology
DX: Z51.11 Encounter for antineoplastic chemotherapy (principal); C61 Malignant neoplasm of prostate; C73 Malignant neoplasm of thyroid gland; C79.51 Secondary malignant neoplasm of bone; R97.20 Elevated prostate specific antigen [PSA]; M54.5 Low back pain; D70.1 Agranulocytosis secondary to cancer chemotherapy; T45.1X5A Adverse effect of antineoplastic and immunosuppressive drugs, initial encounter; Z79.818 Long term (current) use of other agents affecting estrogen receptors and estrogen levels; Z79.899 Other long term (current) drug therapy
CPT/HCPCS: 96372; 96402; 99214; J0897; J9202

== ENCOUNTER → 2020-01-19 11:00 | Outpatient (BNVA) | payer MEDICARE, MEDICAID, SELFPAY | PROVIDERS: PCP Internal Medicine Endocrinology, Diabetes & Metabolism; Referring Provider Internal Medicine Hematology & Oncology; Visit Provider Orthopaedic Surgery | DX: M48.062 Spinal stenosis, lumbar region with neurogenic claudication (principal) | CPT/HCPCS: 72114 ==

== ENCOUNTER 2020-02-13 13:25 | Outpatient (CLI) | payer MEDICARE, MEDICAID, SELFPAY ==
[2020-02-13 14:40] LABS: Basophils % 0.4 %; Eosinophils % 0.8 %; Hematocrit 41.4 % (42.0-52.0); Hemoglobin 13.6 g/dL (11.7-16.6); Lymphocytes # 0.4 10^3/uL (0.8-4.8); Lymphocytes % 8.3 %; Mean Corpuscular HGB Conc 32.9 g/dL (30.0-36.0); Mean Corpuscular Volume 97.4 fL (80-94); Mean Platelet Volume 10.6 fL (7.4-10.4); Monocytes # 0.4 10^3/uL (0.2-0.9); Monocytes % 8.5 %; Neutrophils % 81.4 %; Nucleated Red Blood Cells % 0 %; Platelet Count 139 10^3/cmm (130-400); Red Blood Count 4.25 10^6/uL (4.1-5.3); Red Cell Distribution Width 12.5 % (12.1-15.1); White Blood Count 4.9 10^3/uL (4.0-10.0)
== END 2020-02-13 13:26 | disposition home or self-care (01) ==
LOC: ONCMED 13:32
PROVIDERS: PCP Family Medicine; Visit Provider Internal Medicine Hematology & Oncology
DX: C61 Malignant neoplasm of prostate (principal); C73 Malignant neoplasm of thyroid gland; C79.51 Secondary malignant neoplasm of bone
CPT/HCPCS: 36415; 84153; 85025

== ENCOUNTER 2020-02-14 05:57 | Outpatient (CLI) | payer MEDICARE, MEDICAID, SELFPAY ==
--- NOTE | 2020-02-14 13:19 | ONC FU_ITS ---
Dr. Monahan follow up note Patient: Charlie Jacobs Unit #: [id number]: [id number] Dicatated By: Daniel Monahan M.D.Date of Visit:Feb 14, 2020 Onc Med Follow-up/Prog Note History of Present Illness: Mr. Jacobs is a 74-year-old gentleman with history of prostate cancer initially diagnosed in December 2006. At that time, his PSA was 7.1 and left sided nodule biopsies showed 6 out of 12 cores positive for 3+3/3+4 SOLE ASSESSOR with 20-60% involvement. He received external beam radiation therapy which he completed in March 2007. Follow-up PSA level showed good response but start increasing and peak prior to initiation of hormonal therapy was 6.1, patient underwent rebiopsy on 09/14/2009 which showed suspicious pathology but not diagnostic. Mr Jacobs was started on LHRH agonist in December 2009 with 2 weeks of Casodex. He had excellent response. PSA was undetectable till January 2012 thereafter slow rise e.g. 0.27 on 08/05/2012 and 2 in May 2013, 7 in November 2013 and 8.4 in March 2015. Bicalutamide was added. In September 2015 and later stopped after increasing PSA again. In April 2017 bilateral scrotal orchiectomy was done. But PSA continued to rise in January 2018 was around 19 and in April 2018,gone up to 39.58. At that time, he started on Casodex 50 mg by mouth daily and CT scan of abdomen pelvis was done on 04/25/2018 which showed no pelvic lymphadenopathy but nonspecific multifocal osseous sclerotic foci; descending sigmoid colon diverticulosis with the descending sigmoid colon junction short segment diverticulitis patient was treated with antibiotics. Zoladex 10.8 mg was started on 06/01/2018. In the meantime, Mr Jacobs developed a mass in the right side of his neck and further investigation led to the diagnosis of thyroid cancer. He underwent thyroidectomy with lymph node dissection- as per patient, cancer was involving lymph nodes. s/p radioactive iodine treatment in early June in [facility]. Mr. Jacobs was seen in the emergency room on 09/07/2018 for low back pain. He apparently had been having back pain for 2 weeks. It was described as intermittent dull and sharp pain sometimes radiating to the left hip. It has gotten progressively worse. The pain medication was only partly relieving it. He did have a CT of the lumbar spine on 09/07/2018. It showed progressive sclerotic metastatic disease along the posterior margin of the right L1 vertebral body, the superior endplates of L3 and L4, left L3 pedestal, sclerotic focus involving the right anterior aspect of the L5 body and sclerotic focus along the lateral margin of the right iliac bone. He was referred to Dr. Corral for consideration of palliative radiation therapy. Dr. Corral did see him the same day on 09/07/2018 and did recommend palliative radiation to the lower back to control the metastatic disease and relieve pain. He was also started on Decadron 4 mg every 6 hours for 7 days in the emergency room on 09/07/2018. Mr Jacobs received radiation therapy to the spine He received 3000 cGy total dose to the SPINE GTV30 starting 09/13/2018 and ending 10/01/2018. He then received treatment to T10 spine, ref ID: [id number] Spine to a total dose of 3000 cGy starting 02/03/2019 and ending on 02/17/2019. He has had an excellent response to the radiation with his back pain resolved. He has been on denosumab since June 10, 2018 per our chart. He continues with Zoladex with his last dose being given on August 30, 2019. He also received denosumab at that time as well. He had significant elevation of his PSA on March 25, 2019 it was 44. On January 20, 2019 it was 29. It was recommended that he pursue treatment with Zytiga/prednisone and continue the every 3-month dose of Zoladex and monthly denosumab. As per patient, he went to emergency room with hypertension and abdominal discomfort. He underwent a CT scan of abdomen on the 04/09/2019 which showed nonspecific bibasilar groundglass opacity consistent with atelectasis edema or pneumonia. Unchanged size of sclerotic bone lesions. Avascular necrosis of right femoral head. Diverticulosis without diverticulitis. No hydronephrosis. His blood pressure was within normal range and pulse was between 90 and 100 and as per patient and his EKG did not show any abnormality. Patient was treated IV fluid and discharge home on oral antibiotic Flagyl for presumed diagnosis of diverticulitis, was referred to Dr. Fermin for GI evaluation, as per patient now colonoscopy is under consideration. His labs ER on 04/09/2019 shows white blood count 2.6 and globin 12.4 hematocrit 37 platelets 130,000 CMP within normal limits The zytiga /prednisone was discontinued by Mr Jacobs on 04/11/2019 because of diarrhea and hypertension. It was restarted on 05/26/2019. CT scan of thoracic lumbar spine done on June 27, 2019 showed no changes in thoracic spine. shows arthropathy and lumbar spine show slight progressed blastic lesion in L1, 8.2 mm but severe central canal stenosis in L3-4, and L4-5 and advanced arthropathy. tolerating Zytiga. Prednisone, Zoladex and Xgeva. Came for follow-up, denies any specific complaint except weight gain, as per he is eating too much, patient said due to steroids taken with Zytiga, he is more hungry. But no new bony pains except chronic back pain for which he has seen orthopedics and now back surgery under consideration. But no lower extremity weakness or numbness, no dysuria or hematuria, occasionally hot flashes otherwise tolerating 3 monthly Zoladex well along with Zytiga/prednisone/Xgeva Medications: Albuterol Sulfate 1 puff(s) (of (2.5 mg/3ml) 0.083%) Nebulization solution Inhalation four times a day, Alfuzosin HCl ER 1 Tablet (of 10 mg) Tablet SR 24 HR Oral at bedtime, Aspirin 1 Tablet (of 81 mg) Oral daily, Atorvastatin Calcium 1 Tablet (of 80 mg) Oral daily, Belsomra 1 Tablet (of 15 mg) Oral at bedtime PRN, Cetirizine HCl 1 Tablet (of 10 mg) Oral daily, Cyclobenzaprine HCl 0.5 - 1 Tablet (of 10 mg) Oral t.i.d. PRN, Esomeprazole Magnesium 1 Capsule (of 40 mg) Capsule Delayed Release Oral daily, HYDROcodone-Acetaminophen 1 Tablet (of 10-325 mg) Oral four times a day PRN, Ipratropium-Albuterol 1 puff(s) (of 0.5-2.5 (3) mg/3ml) Solution Inhalation q 4 hours PRN, Januvia 1 Tablet (of 25 mg) Oral daily, Levothyroxine Sodium 1 Tablet (of 175 mcg) Oral daily, Lisinopril 0.5 Tablet (of 20 mg) Oral daily, Metoprolol Succinate ER 1 Tablet (of 25 mg) Tablet SR 24 HR Oral daily, Mirtazapine 1 Tablet (of 7.5 mg) Oral daily, Montelukast Sodium 1 Tablet (of 10 mg) Oral daily, Nitroglycerin 1 Tablet (of 0.4 mg) Tablet, sublingual Sublingual PRN, ProAir HFA 1 puff(s) (of 108 (90 base) mcg/act) Aerosol, solution Inhalation q 4 hours PRN, Probiotic Digestive Support 1 Capsule Oral daily, Trelegy Ellipta 1 Puff(s) (of 100-62.5-25 mcg/inh) Aerosol Powder, Breath Activated Inhalation daily, Xgeva 1 Subcutaneous q 30 days, Zetia 1 Tablet (of 10 mg) Oral daily, Zoladex (10.8 mg) Subcutaneous q 12 weeks Allergies: Vancomycin HCl Review of Systems: Constitutional - Appetite and weight are stable. No fever, chills, hot flashes or night sweats. Energy level is good, ENMT - Negative for sinus congestion. No mouth sores. No sore throat or difficulty swallowing, Hematologic/Lymphatic - No abnormal bruising or bleeding, Respiratory - No shortness of breath. No cough. No pleuritic pain or hemoptysis, Cardiovascular - No angina pain. No palpitations, Gastrointestinal - Pt denies nausea. No heartburn or acid reflux. Positive for diarrhea. No constipation. No blood in the stool or black stools, Musculoskeletal - Pt reports chronic back pain, Neurologic - No headache. Positive for dizziness. Pt reports numbness in feet, Psychiatric - No anxiety or depression. No insomnia. Vital Signs: Vitals are not available for this patient. Performance Status: 1 - No physically strenuous activity, but ambulatory and able to carry out light or sedentary work (e.g. office work, light house work). (ECOG) Physical Examination: ENMT - No mouth sores, no thrush, no jaundice, Respiratory - Lungs are clear to auscultation, Cardiovascular - Regular rate and rhythm of heart, Abdomen - Soft, bowel sounds present, Extremities - No visible edema. Lab/Imaging: Test performed on Jan 09, 2020 10:11 WBC 4.4 10 3/uL RBC 4.03 10 6/uL HGB 13.1 g/dL HCT 40.5 % MCV 100.5 fL MCH 32.5 pg MCHC 32.3 g/dL RDW 12.6 % Platelet Count 128 10 3/cmm MPV 10.3 fL Neutrophils 3.06 10 3/uL Lymphocytes 0.7 10 3/uL Monocytes 0.5 10 3/uL Eosinophils 0.1 10 3/uL Basophils 0.0 10 3/uL Neutrophil % 70.1 % Lymphocyte % 16.5 % Monocyte % 11.4 % Eosinophil % 1.1 % Basophils % 0.2 % NRBC % 0 % PSA 10.990 ng/mL Test performed on Dec 01, 2019 08:06 Testosterone, Total 2.5 ng/dL Impression: Biochemical recurrence, CT scan of abdomen pelvis done on 04/25/2018 showed sclerotic lesions in the pelvic bones no pelvic lymphadenopathy or abnormal mass. History of prostrate cancer initially diagnosed in 2006 at that time his PSA was 7.1 and left-sided nodule biopsy showed 6 out of 12 cores positive for 3+3/3+ for SOLE ASSESSOR with 20-60% involvement status post external beam radiation therapy completed in March 2007 Follow-up PSA showed excellent response till 2009 when PSA started going up underwent rebiopsy of prostate on 09/14/2009 which was nondiagnostic but suspicious for malignancy. Started on LHRH agonist in December 2009 2 weeks of Casodex, excellent response PSA become undetectable still January 2012 with slow rise thereafter e.g. 0.27 on 08/05/2012, 2 in May 2013, 7 in November 2013, 8.4 in March 2015 bicalutamide was admitted in September 2015 later stopped after PSA continued to go up, subsequently underwent bilateral scrotal orchiectomy in April 2017 PSA continued to rise around 20 on 01/28/2018 for the gone up to 39.58 in April 2018, at that time Casodex 50 mg by mouth was started and patient was referred to medical oncology clinic Zoladex 10.8 mg every 3 months started on 06/01/2018 Bone scan done on 06/01/2018 showed L3 and L4 vertebral body increased activity corresponding to the prior CT sclerosis. Left T10 and T7 lateral vertebral body or facet increase activity you from prior exam done in December 2006,. New right lateral posterior ninth rib focus of increased activity. did see Mr. Jacobs in August 2018 at which time Mr. Jacobs was having moderate to severe distress with progressive lower back pain. He was sent to the emergency room for evaluation for possible metastatic disease or prolapse/collapsed vertebra. His PSA at that time was 34.24 and his testosterone was 19.9. New right sixth and eighth anterior lateral rib focus of increased activity. Recently diagnosed with thyroid cancer status post thyroidectomy with lymph node dissection now radioactive iodine therapy was under consideration as of June 2018. Mr. Jacobs was seen in the emergency room on 09/07/2018 for low back pain. He apparently been having back pain for 2 weeks. It was described as intermittent dull and sharp pain sometimes radiating to the left hip. It has gotten progressively worse. The pain medication was only partly relieving it. He did have a CT of the lumbar spine on 09/07/2018. It showed progressive sclerotic metastatic disease along the posterior margin of the right L1 vertebral body, the superior endplates of L3 and L4, left L3 pedestal, sclerotic focus involving the right anterior aspect of the L5 body and sclerotic focus along the lateral margin of the right iliac bone. He was referred to Dr. Corral for consideration of palliative radiation therapy. Dr. Corral did see him the same day on 09/07/2018. And did recommend palliative radiation to the lower back to control the metastatic disease in relieve pain. He was also started on Decadron 4 mg every 6 hours for 7 days in the emergency room on 09/07/2018. Mr Jacobs received radiation therapy to the spine He received 3000 cGy total dose to the SPINE GTV30 starting 09/13/2018 and ending 10/01/2018. He then received treatment to T10 spine, ref ID: T10 Spine to a total dose of 3000 cGy starting 02/03/2019 and ending on 02/17/2019. He has had an excellent response to the radiation with his back pain resolved. He has been on denosumab since June 10, 2018 per our chart. He continues with Zoladex with his last dose being given on March 25, 2019. He also received denosumab at that time as well. Mr. Jacobs is here today to begin further treatment for his disease progression. He has had significant elevation of his PSA on March 25, 2019 it was 44. On January 20, 2019 it was 29. has recommended that he pursue treatment with Zytiga/prednisone and continue the every 3-month dose of Zoladex and monthly denosumab. Persistent leukopenia, bone marrow done on July 07, 2019 showed no evidence of myelodysplasia or any other marrow abnormality, could be due to treatment with radioactive iodine Plan: Discussed with patient regarding his labs white blood count 4.9 hemoglobin 13.6 crit 41.4 platelets 139,000 compared to 128,000 on January 09, 2020 and PSA is 10.4 compared to 10.99 on January 09, 2020 and 19.96 on December 01, 2019 Clinically, patient is doing reasonably well, tolerating Zoladex/Zytiga/prednisone/Xgeva well but with expected side effects. Patient was due for monthly Xgeva but spine surgery is under consideration ,so we will hold his Xgeva for 2 months and he will return to clinic in 2 months with CBC, PSA and testosterone level. Signed By: Daniel Monahan M.D. <<Signature on File>>
== END 2020-02-14 05:58 | disposition home or self-care (01) ==
LOC: ONCMED 05:59
PROVIDERS: PCP Family Medicine; Visit Provider Internal Medicine Hematology & Oncology
DX: C61 Malignant neoplasm of prostate (principal); C79.51 Secondary malignant neoplasm of bone; C77.8 Secondary and unspecified malignant neoplasm of lymph nodes of multiple regions; C79.89 Secondary malignant neoplasm of other specified sites; R97.20 Elevated prostate specific antigen [PSA]; S22.41XA Multiple fractures of ribs, right side, initial encounter for closed fracture; Z79.899 Other long term (current) drug therapy
CPT/HCPCS: 99214

== ENCOUNTER → 2020-02-15 08:16 | Outpatient (BNVA) | payer MEDICARE, MEDICAID, SELFPAY | PROVIDERS: PCP Family Medicine; Referring Provider Orthopaedic Surgery; Visit Provider Anesthesiology Pain Medicine | DX: M48.062 Spinal stenosis, lumbar region with neurogenic claudication (principal); M47.816 Spondylosis without myelopathy or radiculopathy, lumbar region; C79.51 Secondary malignant neoplasm of bone; Z79.891 Long term (current) use of opiate analgesic | CPT/HCPCS: 99205 ==

== ENCOUNTER 2020-04-16 10:49 | Outpatient (CLI) | payer MEDICARE, MEDICAID, SELFPAY ==
[2020-04-16 11:20] LABS: Basophils % 0.6 %; Eosinophils % 0.6 %; Hematocrit 40.8 % (42.0-52.0); Hemoglobin 13.5 g/dL (11.7-16.6); Lymphocytes # 0.5 10^3/uL (0.8-4.8); Mean Corpuscular HGB Conc 33.1 g/dL (30.0-36.0); Mean Corpuscular Hemoglobin 31.5 pg (28.0-34.0); Mean Corpuscular Volume 95.3 fL (80-94); Monocytes # 0.5 10^3/uL (0.2-0.9); Monocytes % 10.4 %; Neutrophils # 3.93 10^3/uL (1.8-7.7); Neutrophils % 78.8 %; Nucleated Red Blood Cells % 0 %; Platelet Count 142 10^3/cmm (130-400); Red Blood Count 4.28 10^6/uL (4.1-5.3); Red Cell Distribution Width 12.6 % (12.1-15.1)
[2020-04-16 12:24] LABS: Testosterone Total 2.5 ng/dL (193-740)
[2020-04-16] MEDS: lidocaine 1% INJ 20 mL INJECTION (13:13)
[2020-04-16] MEDS: goserelin acetate 10.8 mg Implant IM (13:24)
[2020-04-16] MEDS: denosumab 120 mg SDV SUBCUT (13:28)
--- NOTE | 2020-04-16 16:51 | ONC FU_ITS ---
Dr. Monahan follow up note Patient: Charlie Jacobs Unit #: [id number]: 1945 Dicatated By: Daniel Monahan M.D.Date of Visit:Apr 16, 2020 Onc Med Follow-up/Prog Note History of Present Illness: Mr. Jacobs is a 75-year-old gentleman with history of prostate cancer initially diagnosed in December 2006. At that time, his PSA was 7.1 and left sided nodule biopsies showed 6 out of 12 cores positive for 3+3/3+4 21 DEALER with 20-60% involvement. He received external beam radiation therapy which he completed in March 2007. Follow-up PSA level showed good response but start increasing and peak prior to initiation of hormonal therapy was 6.1, patient underwent rebiopsy on 09/14/2009 which showed suspicious pathology but not diagnostic. Mr Jacobs was started on LHRH agonist in December 2009 with 2 weeks of Casodex. He had excellent response. PSA was undetectable till January 2012 thereafter slow rise e.g. 0.27 on 08/05/2012 and 2 in May 2013, 7 in November 2013 and 8.4 in March 2015. Bicalutamide was added. In September 2015 and later stopped after increasing PSA again. In April 2017 bilateral scrotal orchiectomy was done. But PSA continued to rise in January 2018 was around 19 and in April 2018,gone up to 39.58. At that time, he started on Casodex 50 mg by mouth daily and CT scan of abdomen pelvis was done on 04/25/2018 which showed no pelvic lymphadenopathy but nonspecific multifocal osseous sclerotic foci; descending sigmoid colon diverticulosis with the descending sigmoid colon junction short segment diverticulitis patient was treated with antibiotics. Zoladex 10.8 mg was started on 06/01/2018. In the meantime, Mr Jacobs developed a mass in the right side of his neck and further investigation led to the diagnosis of thyroid cancer. He underwent thyroidectomy with lymph node dissection- as per patient, cancer was involving lymph nodes. s/p radioactive iodine treatment in early June in [facility]. Mr. Jacobs was seen in the emergency room on 09/07/2018 for low back pain. He apparently had been having back pain for 2 weeks. It was described as intermittent dull and sharp pain sometimes radiating to the left hip. It has gotten progressively worse. The pain medication was only partly relieving it. He did have a CT of the lumbar spine on 09/07/2018. It showed progressive sclerotic metastatic disease along the posterior margin of the right L1 vertebral body, the superior endplates of L3 and L4, left L3 pedestal, sclerotic focus involving the right anterior aspect of the L5 body and sclerotic focus along the lateral margin of the right iliac bone. He was referred to Dr. Corral for consideration of palliative radiation therapy. Dr. Corral did see him the same day on 09/07/2018 and did recommend palliative radiation to the lower back to control the metastatic disease and relieve pain. He was also started on Decadron 4 mg every 6 hours for 7 days in the emergency room on 09/07/2018. Mr Jacobs received radiation therapy to the spine He received 3000 cGy total dose to the SPINE GTV30 starting 09/13/2018 and ending 10/01/2018. He then received treatment to T10 spine, ref ID: [id number] Spine to a total dose of 3000 cGy starting 02/03/2019 and ending on 02/17/2019. He has had an excellent response to the radiation with his back pain resolved. He has been on denosumab since June 10, 2018 per our chart. He continues with Zoladex with his last dose being given on August 30, 2019. He also received denosumab at that time as well. He had significant elevation of his PSA on March 25, 2019 it was 44. On January 20, 2019 it was 29. It was recommended that he pursue treatment with Zytiga/prednisone and continue the every 3-month dose of Zoladex and monthly denosumab. As per patient, he went to emergency room with hypertension and abdominal discomfort. He underwent a CT scan of abdomen on the 04/09/2019 which showed nonspecific bibasilar groundglass opacity consistent with atelectasis edema or pneumonia. Unchanged size of sclerotic bone lesions. Avascular necrosis of right femoral head. Diverticulosis without diverticulitis. No hydronephrosis. His blood pressure was within normal range and pulse was between 90 and 100 and as per patient and his EKG did not show any abnormality. Patient was treated IV fluid and discharge home on oral antibiotic Flagyl for presumed diagnosis of diverticulitis, was referred to Dr. Fermin for GI evaluation, as per patient now colonoscopy is under consideration. His labs ER on 04/09/2019 shows white blood count 2.6 and globin 12.4 hematocrit 37 platelets 130,000 CMP within normal limits The zytiga /prednisone was discontinued by Mr Jacobs on 04/11/2019 because of diarrhea and hypertension. It was restarted on 05/26/2019. CT scan of thoracic lumbar spine done on June 27, 2019 showed no changes in thoracic spine. shows arthropathy and lumbar spine show slight progressed blastic lesion in L1, 8.2 mm but severe central canal stenosis in L3-4, and L4-5 and advanced arthropathy. tolerating Zytiga. Prednisone, Zoladex and Xgeva. chronic back pain for which he has seen orthopedics and now back surgery under consideration. But patient decided not to proceed with the surgery Came for follow-up, denies any specific complaint except chronic back pain which is controlled with the hydrocodone otherwise no fever chills, no nausea or vomiting, no diarrhea or constipation, no new bony pains, no dysuria or hematuria, tolerating Zytiga/prednisone/Zoladex/Xgeva well Medications: Albuterol Sulfate 1 puff(s) (of (2.5 mg/3ml) 0.083%) Nebulization solution Inhalation four times a day, Alfuzosin HCl ER 1 Tablet (of 10 mg) Tablet SR 24 HR Oral at bedtime, Aspirin 1 Tablet (of 81 mg) Oral daily, Atorvastatin Calcium 1 Tablet (of 80 mg) Oral daily, Belsomra 1 Tablet (of 15 mg) Oral at bedtime PRN, Cetirizine HCl 1 Tablet (of 10 mg) Oral daily, Cyclobenzaprine HCl 0.5 - 1 Tablet (of 10 mg) Oral t.i.d. PRN, Esomeprazole Magnesium 1 Capsule (of 40 mg) Capsule Delayed Release Oral daily, HYDROcodone-Acetaminophen 1 Tablet (of 10-325 mg) Oral four times a day PRN, Ipratropium-Albuterol 1 puff(s) (of 0.5-2.5 (3) mg/3ml) Solution Inhalation q 4 hours PRN, Januvia 1 Tablet (of 25 mg) Oral daily, Levothyroxine Sodium 1 Tablet (of 175 mcg) Oral daily, Lisinopril 0.5 Tablet (of 20 mg) Oral daily, Metoprolol Succinate ER 1 Tablet (of 25 mg) Tablet SR 24 HR Oral daily, Mirtazapine 1 Tablet (of 7.5 mg) Oral daily, Montelukast Sodium 1 Tablet (of 10 mg) Oral daily, Nitroglycerin 1 Tablet (of 0.4 mg) Tablet, sublingual Sublingual PRN, ProAir HFA 1 puff(s) (of 108 (90 base) mcg/act) Aerosol, solution Inhalation q 4 hours PRN, Probiotic Digestive Support 1 Capsule Oral daily, Trelegy Ellipta 1 Puff(s) (of 100-62.5-25 mcg/inh) Aerosol Powder, Breath Activated Inhalation daily, Xgeva 1 Subcutaneous q 30 days, Zetia 1 Tablet (of 10 mg) Oral daily, Zoladex (10.8 mg) Subcutaneous q 12 weeks Allergies: Vancomycin HCl Review of Systems: Review of Systems is not available for this patient. Vital Signs: Performed on Apr 16, 2020 12:29 Height - 75.00 in Weight - 247 lbs (HIGH) BSA - 2.40 sq.m BMI - 30.87 (HIGH) Temperature - 98.0 F (LOW) Pulse - 89 /min Respiration - 18 /min BP - 132/96 mm(hg) O2 Sat - 96 % Pain - 2 Fatigue - 5 Performance Status: 1 - No physically strenuous activity, but ambulatory and able to carry out light or sedentary work (e.g. office work, light house work). (ECOG) Physical Examination: ENMT - No mouth sores, no thrush, no jaundice, Respiratory - Lungs are clear to auscultation, Cardiovascular - Regular rate and rhythm of heart, Abdomen - Soft, bowel sounds present, Extremities - No visible edema. Lab/Imaging: Test performed on Feb 13, 2020 14:22 WBC 4.9 10 3/uL RBC 4.25 10 6/uL HGB 13.6 g/dL HCT 41.4 % MCV 97.4 fL MCH 32.0 pg MCHC 32.9 g/dL RDW 12.5 % Platelet Count 139 10 3/cmm MPV 10.6 fL Neutrophils 4.00 10 3/uL Lymphocytes 0.4 10 3/uL Monocytes 0.4 10 3/uL Eosinophils 0.0 10 3/uL Basophils 0.0 10 3/uL Neutrophil % 81.4 % Lymphocyte % 8.3 % Monocyte % 8.5 % Eosinophil % 0.8 % Basophils % 0.4 % NRBC % 0 % PSA 10.410 ng/mL Test performed on Dec 01, 2019 08:06 Testosterone, Total 2.5 ng/dL Impression: Biochemical recurrence, CT scan of abdomen pelvis done on 04/25/2018 showed sclerotic lesions in the pelvic bones no pelvic lymphadenopathy or abnormal mass. History of prostrate cancer initially diagnosed in 2006 at that time his PSA was 7.1 and left-sided nodule biopsy showed 6 out of 12 cores positive for 3+3/3+ for 21 DEALER with 20-60% involvement status post external beam radiation therapy completed in March 2007 Follow-up PSA showed excellent response till 2009 when PSA started going up underwent rebiopsy of prostate on 09/14/2009 which was nondiagnostic but suspicious for malignancy. Started on LHRH agonist in December 2009 2 weeks of Casodex, excellent response PSA become undetectable still January 2012 with slow rise thereafter e.g. 0.27 on 08/05/2012, 2 in May 2013, 7 in November 2013, 8.4 in March 2015 bicalutamide was admitted in September 2015 later stopped after PSA continued to go up, subsequently underwent bilateral scrotal orchiectomy in April 2017 PSA continued to rise around 20 on 01/28/2018 for the gone up to 39.58 in April 2018, at that time Casodex 50 mg by mouth was started and patient was referred to medical oncology clinic Zoladex 10.8 mg every 3 months started on 06/01/2018 Bone scan done on 06/01/2018 showed L3 and L4 vertebral body increased activity corresponding to the prior CT sclerosis. Left T10 and T7 lateral vertebral body or facet increase activity you from prior exam done in December 2006,. New right lateral posterior ninth rib focus of increased activity. did see Mr. Jacobs in August 2018 at which time Mr. Jacobs was having moderate to severe distress with progressive lower back pain. He was sent to the emergency room for evaluation for possible metastatic disease or prolapse/collapsed vertebra. His PSA at that time was 34.24 and his testosterone was 19.9. New right sixth and eighth anterior lateral rib focus of increased activity. Recently diagnosed with thyroid cancer status post thyroidectomy with lymph node dissection now radioactive iodine therapy was under consideration as of June 2018. Mr. Jacobs was seen in the emergency room on 09/07/2018 for low back pain. He apparently been having back pain for 2 weeks. It was described as intermittent dull and sharp pain sometimes radiating to the left hip. It has gotten progressively worse. The pain medication was only partly relieving it. He did have a CT of the lumbar spine on 09/07/2018. It showed progressive sclerotic metastatic disease along the posterior margin of the right L1 vertebral body, the superior endplates of L3 and L4, left L3 pedestal, sclerotic focus involving the right anterior aspect of the L5 body and sclerotic focus along the lateral margin of the right iliac bone. He was referred to Dr. Corral for consideration of palliative radiation therapy. Dr. Corral did see him the same day on 09/07/2018. And did recommend palliative radiation to the lower back to control the metastatic disease in relieve pain. He was also started on Decadron 4 mg every 6 hours for 7 days in the emergency room on 09/07/2018. Mr Jacobs received radiation therapy to the spine He received 3000 cGy total dose to the SPINE GTV30 starting 09/13/2018 and ending 10/01/2018. He then received treatment to T10 spine, ref ID: T10 Spine to a total dose of 3000 cGy starting 02/03/2019 and ending on 02/17/2019. He has had an excellent response to the radiation with his back pain resolved. He has been on denosumab since June 10, 2018 per our chart. He continues with Zoladex with his last dose being given on March 25, 2019. He also received denosumab at that time as well. Mr. Jacobs is here today to begin further treatment for his disease progression. He has had significant elevation of his PSA on March 25, 2019 it was 44. On January 20, 2019 it was 29. has recommended that he pursue treatment with Zytiga/prednisone and continue the every 3-month dose of Zoladex and monthly denosumab. Persistent leukopenia, bone marrow done on July 07, 2019 showed no evidence of myelodysplasia or any other marrow abnormality, could be due to treatment with radioactive iodine Plan: Discussed with patient regarding his labs white blood count 5 hemoglobin 13.5 hematocrit 40.8 platelets 242,000 PSA 9.53 compared to 10.41 on February 13, 2020 Clinically, patient is doing well with no new signs symptom suggestive of disease progression his follow-up labs shows PSA continue to improve slowly. We will proceed with this next 3 monthly dose of Zoladex and resume monthly dose of Xgeva as patient is not considering back surgery.In the meantime he will continue with Zytiga/prednisone We will also give him prescription for hydrocodone and he will return to clinic in 1 month with CBC and PSA and for dose of Xgeva Mild leukopenia,/thrombocytopenia ,continue to improve, now in normal range we will monitor Signed By: Daniel Monahan M.D. <<Signature on File>>
== END 2020-04-16 10:50 | disposition home or self-care (01) ==
LOC: ONCMED 10:52
PROVIDERS: PCP Family Medicine; Visit Provider Internal Medicine Hematology & Oncology
DX: C61 Malignant neoplasm of prostate (principal); C79.51 Secondary malignant neoplasm of bone; C73 Malignant neoplasm of thyroid gland; D72.819 Decreased white blood cell count, unspecified; D69.6 Thrombocytopenia, unspecified; G89.29 Other chronic pain; M54.9 Dorsalgia, unspecified; Z90.79 Acquired absence of other genital organ(s); Z79.818 Long term (current) use of other agents affecting estrogen receptors and estrogen levels; Z79.899 Other long term (current) drug therapy; Z92.3 Personal history of irradiation; Z79.891 Long term (current) use of opiate analgesic
CPT/HCPCS: 84153; 84403; 85025; 96372; 96402; 99215; J0897; J9202

== ENCOUNTER 2020-05-23 11:09 | Outpatient (CLI) | payer MEDICARE, MEDICAID, SELFPAY ==
[2020-05-23 11:41] LABS: Basophils % 0.3 %; Eosinophils # 0.1 10^3/uL (0.0-0.8); Eosinophils % 1.3 %; Hematocrit 38.9 % (42.0-52.0); Hemoglobin 12.9 g/dL (11.7-16.6); Lymphocytes # 0.5 10^3/uL (0.8-4.8); Lymphocytes % 11.7 %; Mean Corpuscular HGB Conc 33.2 g/dL (30.0-36.0); Mean Corpuscular Hemoglobin 31.6 pg (28.0-34.0); Mean Corpuscular Volume 95.3 fL (80-94); Mean Platelet Volume 10.9 fL (7.4-10.4); Monocytes # 0.4 10^3/uL (0.2-0.9); Monocytes % 10.6 %; Neutrophils % 75.3 %; Nucleated Red Blood Cells % 0 %; Platelet Count 128 10^3/cmm (130-400); Red Blood Count 4.08 10^6/uL (4.1-5.3); Red Cell Distribution Width 12.7 % (12.1-15.1); White Blood Count 3.9 10^3/uL (4.0-10.0)
[2020-05-23] MEDS: denosumab 120 mg SDV SUBCUT (14:10)
--- NOTE | 2020-06-04 17:21 | ONC FU_ITS ---
[facility] Patient Note Patient: Charlie Jacobs Unit #: [id number]: 1945 Dictated By: Rico IniguezDate of Visit: May 23, 2020 Onc MED Follow-Up/Prog Note Chief Complaint: Prostrate cancer History of Present Illness: Mr. Jacobs is a 75-year-old gentleman with history of prostate cancer initially diagnosed in December 2006. At that time, his PSA was 7.1 and left sided nodule biopsies showed 6 out of 12 cores positive for 3+3/3+4 [employer] with 20-60% involvement. He received external beam radiation therapy which he completed in March 2007. Follow-up PSA level showed good response but start increasing and peak prior to initiation of hormonal therapy was 6.1, patient underwent rebiopsy on 09/14/2009 which showed suspicious pathology but not diagnostic. Mr Jacobs was started on LHRH agonist in December 2009 with 2 weeks of Casodex. He had excellent response. PSA was undetectable till January 2012 thereafter slow rise e.g. 0.27 on 08/05/2012 and 2 in May 2013, 7 in November 2013 and 8.4 in March 2015. Bicalutamide was added. In September 2015 and later stopped after increasing PSA again. In April 2017 bilateral scrotal orchiectomy was done. But PSA continued to rise in January 2018 was around 19 and in April 2018,gone up to 39.58. At that time, he started on Casodex 50 mg by mouth daily and CT scan of abdomen pelvis was done on 04/25/2018 which showed no pelvic lymphadenopathy but nonspecific multifocal osseous sclerotic foci; descending sigmoid colon diverticulosis with the descending sigmoid colon junction short segment diverticulitis patient was treated with antibiotics. Zoladex 10.8 mg was started on 06/01/2018. In the meantime, Mr Jacobs developed a mass in the right side of his neck and further investigation led to the diagnosis of thyroid cancer. He underwent thyroidectomy with lymph node dissection- as per patient, cancer was involving lymph nodes. s/p radioactive iodine treatment in early June in [facility]. Mr. Jcaobs was seen in the emergency room on 09/07/2018 for low back pain. He apparently had been having back pain for 2 weeks. It was described as intermittent dull and sharp pain sometimes radiating to the left hip. It has gotten progressively worse. The pain medication was only partly relieving it. He did have a CT of the lumbar spine on 09/07/2018. It showed progressive sclerotic metastatic disease along the posterior margin of the right L1 vertebral body, the superior endplates of L3 and L4, left L3 pedestal, sclerotic focus involving the right anterior aspect of the L5 body and sclerotic focus along the lateral margin of the right iliac bone. He was referred to Dr. Corral for consideration of palliative radiation therapy. Dr. Corral did see him the same day on 09/07/2018 and did recommend palliative radiation to the lower back to control the metastatic disease and relieve pain. He was also started on Decadron 4 mg every 6 hours for 7 days in the emergency room on 09/07/2018. Mr Jacobs received radiation therapy to the spine He received 3000 cGy total dose to the SPINE GTV30 starting 09/13/2018 and ending 10/01/2018. He then received treatment to T10 spine, ref ID: [id number] Spine to a total dose of 3000 cGy starting 02/03/2019 and ending on 02/17/2019. He has had an excellent response to the radiation with his back pain resolved. He has been on denosumab since June 10, 2018 per our chart. He continues with Zoladex with his last dose being given on August 30, 2019. He also received denosumab at that time as well. He had significant elevation of his PSA on March 25, 2019 it was 44. On January 20, 2019 it was 29. It was recommended that he pursue treatment with Zytiga/prednisone and continue the every 3-month dose of Zoladex and monthly denosumab. As per patient, he went to emergency room with hypertension and abdominal discomfort. He underwent a CT scan of abdomen on the 04/09/2019 which showed nonspecific bibasilar groundglass opacity consistent with atelectasis edema or pneumonia. Unchanged size of sclerotic bone lesions. Avascular necrosis of right femoral head. Diverticulosis without diverticulitis. No hydronephrosis. His blood pressure was within normal range and pulse was between 90 and 100 and as per patient and his EKG did not show any abnormality. Patient was treated IV fluid and discharge home on oral antibiotic Flagyl for presumed diagnosis of diverticulitis, was referred to Dr. Fermin for GI evaluation, as per patient now colonoscopy is under consideration. His labs ER on 04/09/2019 shows white blood count 2.6 and globin 12.4 hematocrit 37 platelets 130,000 CMP within normal limits The zytiga /prednisone was discontinued by Mr Jacobs on 04/11/2019 because of diarrhea and hypertension. It was restarted on 05/26/2019. CT scan of thoracic lumbar spine done on June 27, 2019 showed no changes in thoracic spine. shows arthropathy and lumbar spine show slight progressed blastic lesion in L1, 8.2 mm but severe central canal stenosis in L3-4, and L4-5 and advanced arthropathy. tolerating Zytiga. Prednisone, Zoladex and Xgeva. chronic back pain for which he has seen orthopedics and now back surgery under consideration. But patient decided not to proceed with the surgery Mr. Jacobs is here today for follow-up. His last Zoladex was given on April 16, 2020. He also continues monthly denosumab. His Zytiga dose is 250 mg daily. He states overall he is doing well. He denies any new bone pain. He has no new concerns. He states he is a little short of breath with activity but this is not new. He states he has had no wheezing. He denies any chest pain palpitations or orthopnea. He states he just gets winded. He states he is seeing his primary care later this month for assessment. He denies any cough. He denies any hemoptysis. He states his bowel and bladder functions are normal for him. His bladder is a little sluggish at times but states this is no worse than his normal patterns. He has had no new bone pain. He denies any lower extremity edema. He has no neuropathy symptoms. He states he is trying to be active around the yard but tires easily. He denies mouth sores, sore throat or difficulty swallowing. He states his appetite is good. He has had no skin rashes or lesions. His ECOG is 1. Past Medical History: Chronic obstructive pulmonary disease Diverticulitis Hypertension Thyroid cancer Type II diabetes Past Surgical History: Colonoscopy Left knee replacement Mass removed from thyroid Partial thyroid removal Right knee replacememt Testicules removal Covid 10 vaccine 1st in 2020 Allergies: Vancomycin HCl Medications: Albuterol Sulfate 1 puff(s) (of (2.5 mg/3ml) 0.083%) Nebulization solution Inhalation four times a day Alfuzosin HCl ER 1 Tablet (of 10 mg) Tablet SR 24 HR Oral at bedtime Aspirin 1 Tablet (of 81 mg) Oral daily Atorvastatin Calcium 1 Tablet (of 80 mg) Oral daily Belsomra 1 Tablet (of 15 mg) Oral at bedtime PRN Cetirizine HCl 1 Tablet (of 10 mg) Oral daily Cyclobenzaprine HCl 0.5 - 1 Tablet (of 10 mg) Oral t.i.d. PRN Esomeprazole Magnesium 1 Capsule (of 40 mg) Capsule Delayed Release Oral daily HYDROcodone-Acetaminophen 1 Tablet (of 10-325 mg) Oral four times a day PRN Ipratropium-Albuterol 1 puff(s) (of 0.5-2.5 (3) mg/3ml) Solution Inhalation q 4 hours PRN Januvia 1 Tablet (of 25 mg) Oral daily Levothyroxine Sodium 1 Tablet (of 175 mcg) Oral daily Lisinopril 0.5 Tablet (of 20 mg) Oral daily Metoprolol Succinate ER 1 Tablet (of 25 mg) Tablet SR 24 HR Oral daily Mirtazapine 1 Tablet (of 7.5 mg) Oral daily Montelukast Sodium 1 Tablet (of 10 mg) Oral daily Nitroglycerin 1 Tablet (of 0.4 mg) Tablet, sublingual Sublingual PRN ProAir HFA 1 puff(s) (of 108 (90 base) mcg/act) Aerosol, solution Inhalation q 4 hours PRN Probiotic Digestive Support 1 Capsule Oral daily Trelegy Ellipta 1 Puff(s) (of 100-62.5-25 mcg/inh) Aerosol Powder, Breath Activated Inhalation daily Xgeva 1 Subcutaneous q 30 days Zetia 1 Tablet (of 10 mg) Oral daily Zoladex (10.8 mg) Subcutaneous q 12 weeks Family History: Mr. Jacobs's mother at age 90. Mr. Jacobs's father at age 60: ruptured hernia. Mother of cancer but does not know what she had. His sister has cancer now but does not know what kind. Social History: Mr. Jacobs is and he is retired. He is an occasional smoker who has smoked 0.5 packs/day for 68 years. He is a former drinker. pt states he is trying to quit smoking. Review Of Symptoms: see above Vital Signs: Performed on May 23, 2020 13:24 Height - 75.00 in Weight - 247.2 lbs (HIGH) BSA - 2.40 sq.m BMI - 30.90 (HIGH) Temperature - 97.5 F (LOW) Pulse - 81 /min Respiration - 18 /min BP - 129/81 mm(hg) O2 Sat - 93 % (LOW) Pain - 0 Fatigue - 5,1 - No physically strenuous activity, but ambulatory and able to carry out light or sedentary work (e.g. office work, light house work). (ECOG) Physical Examination: Constitutional Alert, oriented, no acute distress. Skin pink, warm and dry. Head Normocephalic; atraumatic. Eyes Conjunctivae and sclerae are clear and without icterus. Pupils are reactive and equal. Neck Supple without masses or thyromegaly. No jugular venous distension. Hematologic/Lymphatic No petechiae or purpura. No tender or palpable lymph nodes in the cervical or supraclavicular areas. Respiratory Lungs are clear to auscultation without rhonchi or wheezing. Cardiovascular Regular rate and rhythm of heart without murmurs,clicks, gallops or rubs. Abdomen Non-tender, non-distended, no masses, ascites. Good bowel sounds noted in all quads. No guarding or rebound tenderness. No pulsatile masses. Back/Spine Non-tender to palpation. Extremities No visible deformities, no cyanosis, clubbing or edema. Musculoskeletal No tenderness or swelling, normal range of motion without obvious weakness. Integumentary No rashes or lesions. Neurologic No sensory or motor deficits, normal cerebellar function, normal gait. Psychiatric Alert and oriented times three. Coherent speech. Verbalizes understanding of our discussions today. Laboratory:Test performed on May 23, 2020 11:20 WBC 3.9 10 3/uL RBC 4.08 10 6/uL HGB 12.9 g/dL HCT 38.9 % MCV 95.3 fL MCH 31.6 pg MCHC 33.2 g/dL RDW 12.7 % Platelet Count 128 10 3/cmm MPV 10.9 fL Neutrophils 2.90 10 3/uL Lymphocytes 0.5 10 3/uL Monocytes 0.4 10 3/uL Eosinophils 0.1 10 3/uL Basophils 0.0 10 3/uL Neutrophil % 75.3 % Lymphocyte % 11.7 % Monocyte % 10.6 % Eosinophil % 1.3 % Basophils % 0.3 % NRBC % 0 % PSA 8.990 ng/mL Test performed on Dec 01, 2019 08:06 Testosterone, Total 2.5 ng/dL Impression: Biochemical recurrence, CT scan of abdomen pelvis done on 04/25/2018 showed sclerotic lesions in the pelvic bones no pelvic lymphadenopathy or abnormal mass. History of prostrate cancer initially diagnosed in 2006 at that time his PSA was 7.1 and left-sided nodule biopsy showed 6 out of 12 cores positive for 3+3/3+ for [employer] with 20-60% involvement status post external beam radiation therapy completed in March 2007 Follow-up PSA showed excellent response till 2009 when PSA started going up underwent rebiopsy of prostate on 09/14/2009 which was nondiagnostic but suspicious for malignancy. Started on LHRH agonist in December 2009 2 weeks of Casodex, excellent response PSA become undetectable still January 2012 with slow rise thereafter e.g. 0.27 on 08/05/2012, 2 in May 2013, 7 in November 2013, 8.4 in March 2015 bicalutamide was admitted in September 2015 later stopped after PSA continued to go up, subsequently underwent bilateral scrotal orchiectomy in April 2017 PSA continued to rise around 20 on 01/28/2018 for the gone up to 39.58 in April 2018, at that time Casodex 50 mg by mouth was started and patient was referred to medical oncology clinic Zoladex 10.8 mg every 3 months started on 06/01/2018 Bone scan done on 06/01/2018 showed L3 and L4 vertebral body increased activity corresponding to the prior CT sclerosis. Left T10 and T7 lateral vertebral body or facet increase activity you from prior exam done in December 2006,. New right lateral posterior ninth rib focus of increased activity. Dr Monahan did see Mr. Jacobs in August 2018 at which time Mr. Jacobs was having moderate to severe distress with progressive lower back pain. He was sent to the emergency room for evaluation for possible metastatic disease or prolapse/collapsed vertebra. His PSA at that time was 34.24 and his testosterone was 19.9. New right sixth and eighth anterior lateral rib focus of increased activity. Recently diagnosed with thyroid cancer status post thyroidectomy with lymph node dissection now radioactive iodine therapy was under consideration as of June 2018. Mr. Jacobs was seen in the emergency room on 09/07/2018 for low back pain. He apparently been having back pain for 2 weeks. It was described as intermittent dull and sharp pain sometimes radiating to the left hip. It has gotten progressively worse. The pain medication was only partly relieving it. He did have a CT of the lumbar spine on 09/07/2018. It showed progressive sclerotic metastatic disease along the posterior margin of the right L1 vertebral body, the superior endplates of L3 and L4, left L3 pedestal, sclerotic focus involving the right anterior aspect of the L5 body and sclerotic focus along the lateral margin of the right iliac bone. He was referred to Dr. Corral for consideration of palliative radiation therapy. Dr. Corral did see him the same day on 09/07/2018. And did recommend palliative radiation to the lower back to control the metastatic disease in relieve pain. He was also started on Decadron 4 mg every 6 hours for 7 days in the emergency room on 09/07/2018. Mr Jacobs received radiation therapy to the spine He received 3000 cGy total dose to the SPINE GTV30 starting 09/13/2018 and ending 10/01/2018. He then received treatment to T10 spine, ref ID: [id number] Spine to a total dose of 3000 cGy starting 02/03/2019 and ending on 02/17/2019. He has had an excellent response to the radiation with his back pain resolved. He has been on denosumab since June 10, 2018 per our chart. He continues with Zoladex with his last dose being given on March 25, 2019. He also received denosumab at that time as well. Mr. Jacobs is here today to begin further treatment for his disease progression. He has had significant elevation of his PSA on March 25, 2019 it was 44. On January 20, 2019 it was 29. It has been recommended that he pursue treatment with Zytiga/prednisone and continue the every 3-month dose of Zoladex and monthly denosumab. Persistent leukopenia, bone marrow done on July 07, 2019 showed no evidence of myelodysplasia or any other marrow abnormality, could be due to treatment with radioactive iodine Plan: PROBLEMS ADDRESSED TODAY 1. Prostate cancer with bone involvement. A. Proceed with Zytiga at 250 mg daily. B. He continues on prednisone 5 mg twice daily C. He continues on every 3-month Zoladex???his last dose was on April 16, 2020. D. He is also on monthly Xgeva for his bone involvement. His last dose was on April 16, 2020. E. Today's labs reviewed in detail and discussed with Mr. Jacobs and a copy was given to him. WBC 3.9, hemoglobin 12.9, platelets 1 28,000 ANC is 2900. His PSA has improved to 8.99. On April 16, 2020 was 9.53. 2. Shortness of breath with activity A. He states he is following with his PCP later this week for this. 3. Follow-up plan A. We will plan to see him back in 1 month at which time he will be due for Xgeva. B. He will return for follow-up in 2 months with CBC CMP, testosterone total and PSA. He will be due for Xgeva and Zoladex at that time as well. C. Mr. Jacobs was instructed to contact us in interim should questions or problems arise. Signed By: Rico Iniguez-, AOP Daniel Monahan MD <<Signature on File>>
== END 2020-05-23 11:10 | disposition home or self-care (01) ==
LOC: ONCMED 11:15
PROVIDERS: PCP Family Medicine; Visit Provider Nurse Practitioner
DX: Z51.11 Encounter for antineoplastic chemotherapy (principal); C61 Malignant neoplasm of prostate; C73 Malignant neoplasm of thyroid gland; C79.51 Secondary malignant neoplasm of bone; J44.9 Chronic obstructive pulmonary disease, unspecified; K57.92 Diverticulitis of intestine, part unspecified, without perforation or abscess without bleeding; I10 Essential (primary) hypertension; E11.9 Type 2 diabetes mellitus without complications; Z79.818 Long term (current) use of other agents affecting estrogen receptors and estrogen levels
CPT/HCPCS: 84153; 85025; 96372; 99214; J0897

== ENCOUNTER 2020-06-08 09:40 | Outpatient (CLI) | payer MEDICARE, MEDICAID, SELFPAY ==
--- NOTE | 2020-06-08 09:45 | XR_ITS ---
WS: [id number] PROCEDURE: XR chest 2V* [id number] CLINICAL INFORMATION: quinn COMPARISON: [id number] FINDINGS: Heart: Normal cardiac silhouette. Aortic calcification Lungs: Moderate chronic emphysematous changes. Calcified hilar nodes with calcified granulomas. No ac talita pulmonary infiltrates. No focal pneumonia or pleural fluid. Bones: Hypertrophic changes thoracic spine. XR/XR chest 2V* [id number] IMPRESSION: 1. Moderate chronic erythematous changes. No acute pulmonary infiltrates. 2. Chronic calcified granulomatous disease.
== END 2020-06-08 09:41 | disposition home or self-care (01) ==
PROVIDERS: PCP Family Medicine; Visit Provider Family Medicine
DX: R06.00 Dyspnea, unspecified (principal); D71 Functional disorders of polymorphonuclear neutrophils; E78.5 Hyperlipidemia, unspecified; E11.9 Type 2 diabetes mellitus without complications
CPT/HCPCS: 71046; 80053; 80061; 83036

== ENCOUNTER 2020-06-25 11:02 | Outpatient (CLI) | payer MEDICARE, MEDICAID, SELFPAY ==
[2020-06-25 12:26] LABS: Alanine Aminotransferase 10 U/L (0-41); Albumin Level 3.4 g/dL (3.5-5.2); Alkaline Phosphatase 71 IU/L (40-130); Anion Gap 10.6 (5-19); Aspartate Amino Transferase 10 U/L (0-40); Blood Urea Nitrogen 17 mg/dL (8-23); Calcium 7.3 mg/dL (8.5-10.5); Carbon Dioxide 28 mmol/L (22-29); Chloride 109 mmol/L (98-107); Globulin 3.1 g/dL (1.3-4.6); Glucose 154 mg/dL (65-115); Osmolality Calculated 303 mOsm/kg (285-295); Potassium 3.6 mmol/L (3.5-5.1); Sodium 144 mmol/L (136-145); Thyroid Stimulating Hormone 0.01 uIU/mL (0.27-4.20); Total Bilirubin 0.3 mg/dL (0.15-1.2); Total Protein 6.5 g/dL (6.6-8.7)
[2020-06-25 12:55] LABS: 25 Hydroxy Vitamin D 16 ng/mL (30-100)
== END 2020-06-25 11:03 | disposition home or self-care (01) ==
PROVIDERS: PCP Family Medicine; Visit Provider Internal Medicine Endocrinology, Diabetes & Metabolism
DX: E83.51 Hypocalcemia (principal); Z85.850 Personal history of malignant neoplasm of thyroid; E03.9 Hypothyroidism, unspecified; Z92.3 Personal history of irradiation; Z87.891 Personal history of nicotine dependence
CPT/HCPCS: 36415; 80053; 82306; 84443

== ENCOUNTER 2020-06-26 06:23 | Outpatient (CLI) | payer MEDICARE, MEDICAID, SELFPAY ==
[2020-06-26] MEDS: denosumab 120 mg SDV SUBCUT (14:48)
== END 2020-06-26 06:24 | disposition home or self-care (01) ==
LOC: ONCMED 06:27
PROVIDERS: PCP Family Medicine; Visit Provider Nurse Practitioner
DX: Z51.11 Encounter for antineoplastic chemotherapy (principal); C61 Malignant neoplasm of prostate; C79.51 Secondary malignant neoplasm of bone; Z79.899 Other long term (current) drug therapy
CPT/HCPCS: 96372; J0897

== ENCOUNTER 2020-07-26 08:06 | Outpatient (CLI) | payer MEDICARE, MEDICAID, SELFPAY ==
[2020-07-26 08:36] LABS: Basophils % 0.4 %; Eosinophils # 0.1 10^3/uL (0.0-0.8); Eosinophils % 1.1 %; Hematocrit 40.4 % (42.0-52.0); Hemoglobin 13.4 g/dL (11.7-16.6); Lymphocytes # 0.6 10^3/uL (0.8-4.8); Lymphocytes % 13.3 %; Mean Corpuscular HGB Conc 33.2 g/dL (30.0-36.0); Mean Corpuscular Hemoglobin 31.8 pg (28.0-34.0); Mean Corpuscular Volume 95.7 fL (80-94); Mean Platelet Volume 10.9 fL (7.4-10.4); Monocytes # 0.5 10^3/uL (0.2-0.9); Monocytes % 11.8 %; Neutrophils % 72.3 %; Nucleated Red Blood Cells % 0 %; Platelet Count 149 10^3/cmm (130-400); Red Blood Count 4.22 10^6/uL (4.1-5.3); Red Cell Distribution Width 13.1 % (12.1-15.1); White Blood Count 4.6 10^3/uL (4.0-10.0)
[2020-07-26 09:29] LABS: Alanine Aminotransferase 14 U/L (0-41); Albumin Level 3.7 g/dL (3.5-5.2); Alkaline Phosphatase 101 IU/L (40-130); Anion Gap 12.3 (5-19); Aspartate Amino Transferase 10 U/L (0-40); Blood Urea Nitrogen 11 mg/dL (8-23); Carbon Dioxide 29 mmol/L (22-29); Chloride 103 mmol/L (98-107); Glucose 131 mg/dL (65-115); Osmolality Calculated 291 mOsm/kg (285-295); Potassium 4.3 mmol/L (3.5-5.1); Sodium 140 mmol/L (136-145); Total Bilirubin 0.3 mg/dL (0.15-1.2); Total Protein 6.7 g/dL (6.6-8.7)
[2020-07-26 09:32] LABS: Testosterone Total < 2.5 ng/dL (193-740)
[2020-07-26] MEDS: lidocaine 1% INJ 20 mL INJECTION (11:15)
[2020-07-26] MEDS: denosumab 120 mg SDV SUBCUT (11:30)
[2020-07-26] MEDS: goserelin acetate 10.8 mg Implant SUBCUT (11:30)
--- NOTE | 2020-07-27 12:53 | ONC FU_ITS ---
Dr. Monahan follow up note Patient: Charlie Jacobs Unit #: [id number]: 1945 Dicatated By: Daniel Monahan M.D.Date of Visit:Jul 26, 2020 Onc Med Follow-up/Prog Note History of Present Illness: Mr. Jacobs is a 75-year-old gentleman with history of prostate cancer initially diagnosed in December 2006. At that time, his PSA was 7.1 and left sided nodule biopsies showed 6 out of 12 cores positive for 3+3/3+4 DIRECTOR OF INVESTIGATIONS with 20-60% involvement. He received external beam radiation therapy which he completed in March 2007. Follow-up PSA level showed good response but start increasing and peak prior to initiation of hormonal therapy was 6.1, patient underwent rebiopsy on 09/14/2009 which showed suspicious pathology but not diagnostic. Mr Jacobs was started on LHRH agonist in December 2009 with 2 weeks of Casodex. He had excellent response. PSA was undetectable till January 2012 thereafter slow rise e.g. 0.27 on 08/05/2012 and 2 in May 2013, 7 in November 2013 and 8.4 in March 2015. Bicalutamide was added. In September 2015 and later stopped after increasing PSA again. In April 2017 bilateral scrotal orchiectomy was done. But PSA continued to rise in January 2018 was around 19 and in April 2018,gone up to 39.58. At that time, he started on Casodex 50 mg by mouth daily and CT scan of abdomen pelvis was done on 04/25/2018 which showed no pelvic lymphadenopathy but nonspecific multifocal osseous sclerotic foci; descending sigmoid colon diverticulosis with the descending sigmoid colon junction short segment diverticulitis patient was treated with antibiotics. Zoladex 10.8 mg was started on 06/01/2018. In the meantime, Mr Jacobs developed a mass in the right side of his neck and further investigation led to the diagnosis of thyroid cancer. He underwent thyroidectomy with lymph node dissection- as per patient, cancer was involving lymph nodes. s/p radioactive iodine treatment in early June in [facility]. Mr. Jacobs was seen in the emergency room on 09/07/2018 for low back pain. He apparently had been having back pain for 2 weeks. It was described as intermittent dull and sharp pain sometimes radiating to the left hip. It has gotten progressively worse. The pain medication was only partly relieving it. He did have a CT of the lumbar spine on 09/07/2018. It showed progressive sclerotic metastatic disease along the posterior margin of the right L1 vertebral body, the superior endplates of L3 and L4, left L3 pedestal, sclerotic focus involving the right anterior aspect of the L5 body and sclerotic focus along the lateral margin of the right iliac bone. He was referred to Dr. Corral for consideration of palliative radiation therapy. Dr. Corral did see him the same day on 09/07/2018 and did recommend palliative radiation to the lower back to control the metastatic disease and relieve pain. He was also started on Decadron 4 mg every 6 hours for 7 days in the emergency room on 09/07/2018. Mr Jacobs received radiation therapy to the spine He received 3000 cGy total dose to the SPINE GTV30 starting 09/13/2018 and ending 10/01/2018. He then received treatment to T10 spine, ref ID: [id number] Spine to a total dose of 3000 cGy starting 02/03/2019 and ending on 02/17/2019. He has had an excellent response to the radiation with his back pain resolved. He has been on denosumab since June 10, 2018 per our chart. He continues with Zoladex with his last dose being given on August 30, 2019. He also received denosumab at that time as well. He had significant elevation of his PSA on March 25, 2019 it was 44. On January 20, 2019 it was 29. It was recommended that he pursue treatment with Zytiga/prednisone and continue the every 3-month dose of Zoladex and monthly denosumab. As per patient, he went to emergency room with hypertension and abdominal discomfort. He underwent a CT scan of abdomen on the 04/09/2019 which showed nonspecific bibasilar groundglass opacity consistent with atelectasis edema or pneumonia. Unchanged size of sclerotic bone lesions. Avascular necrosis of right femoral head. Diverticulosis without diverticulitis. No hydronephrosis. His blood pressure was within normal range and pulse was between 90 and 100 and as per patient and his EKG did not show any abnormality. Patient was treated IV fluid and discharge home on oral antibiotic Flagyl for presumed diagnosis of diverticulitis, was referred to Dr. Fermin for GI evaluation, as per patient now colonoscopy is under consideration. His labs ER on 04/09/2019 shows white blood count 2.6 and globin 12.4 hematocrit 37 platelets 130,000 CMP within normal limits The zytiga /prednisone was discontinued by Mr Jacobs on 04/11/2019 because of diarrhea and hypertension. It was restarted on 05/26/2019. CT scan of thoracic lumbar spine done on June 27, 2019 showed no changes in thoracic spine. shows arthropathy and lumbar spine show slight progressed blastic lesion in L1, 8.2 mm but severe central canal stenosis in L3-4, and L4-5 and advanced arthropathy. tolerating Zytiga. Prednisone, Zoladex and Xgeva. chronic back pain for which he has seen orthopedics and now back surgery under consideration. But patient decided not to proceed with the surgery Came for follow-up, denies any specific complaint except weight gain due to increase in appetite due to steroids otherwise no fever chills, no nausea or vomiting, no diarrhea or constipation chronic pain is under control with current pain medication, tolerating abiraterone/prednisone/Zoladex/Xgeva well otherwise, denies any new bony pains, Medications: Albuterol Sulfate 1 puff(s) (of (2.5 mg/3ml) 0.083%) Nebulization solution Inhalation four times a day, Alfuzosin HCl ER 1 Tablet (of 10 mg) Tablet SR 24 HR Oral at bedtime, Aspirin 1 Tablet (of 81 mg) Oral daily, Atorvastatin Calcium 1 Tablet (of 80 mg) Oral daily, Belsomra 1 Tablet (of 15 mg) Oral at bedtime PRN, Cetirizine HCl 1 Tablet (of 10 mg) Oral daily, Cyclobenzaprine HCl 0.5 - 1 Tablet (of 10 mg) Oral t.i.d. PRN, Esomeprazole Magnesium 1 Capsule (of 40 mg) Capsule Delayed Release Oral daily, HYDROcodone-Acetaminophen 1 Tablet (of 10-325 mg) Oral four times a day PRN, Ipratropium-Albuterol 1 puff(s) (of 0.5-2.5 (3) mg/3ml) Solution Inhalation q 4 hours PRN, Januvia 1 Tablet (of 25 mg) Oral daily, Levothyroxine Sodium 1 Tablet (of 175 mcg) Oral daily, Lisinopril 0.5 Tablet (of 20 mg) Oral daily, Metoprolol Succinate ER 1 Tablet (of 25 mg) Tablet SR 24 HR Oral daily, Mirtazapine 1 Tablet (of 7.5 mg) Oral daily, Montelukast Sodium 1 Tablet (of 10 mg) Oral daily, Nitroglycerin 1 Tablet (of 0.4 mg) Tablet, sublingual Sublingual PRN, ProAir HFA 1 puff(s) (of 108 (90 base) mcg/act) Aerosol, solution Inhalation q 4 hours PRN, Probiotic Digestive Support 1 Capsule Oral daily, Trelegy Ellipta 1 Puff(s) (of 100-62.5-25 mcg/inh) Aerosol Powder, Breath Activated Inhalation daily, Xgeva 1 Subcutaneous q 30 days, Zetia 1 Tablet (of 10 mg) Oral daily, Zoladex (10.8 mg) Subcutaneous q 12 weeks Allergies: Vancomycin HCl Review of Systems: Review of Systems is not available for this patient. Vital Signs: Performed on Jul 26, 2020 10:13 Height - 75.00 in Weight - 247.6 lbs (HIGH) BSA - 2.40 sq.m BMI - 30.95 (HIGH) Temperature - 97.9 F (LOW) Pulse - 81 /min Respiration - 17 /min BP - 143/85 mm(hg) (HIGH) O2 Sat - 92 % (LOW) Pain - 6 Performance Status: 0 - Fully active, able to carry on all predisease activities without restrictions. (ECOG) Physical Examination: ENMT - No mouth sores, no thrush, no jaundice, Respiratory - Lungs are clear to auscultation, Cardiovascular - Regular rate and rhythm of heart, Abdomen - Soft, bowel sounds present, Extremities - No visible edema or rash. Lab/Imaging: Test performed on May 23, 2020 11:20 WBC 3.9 10 3/uL RBC 4.08 10 6/uL HGB 12.9 g/dL HCT 38.9 % MCV 95.3 fL MCH 31.6 pg MCHC 33.2 g/dL RDW 12.7 % Platelet Count 128 10 3/cmm MPV 10.9 fL Neutrophils 2.90 10 3/uL Lymphocytes 0.5 10 3/uL Monocytes 0.4 10 3/uL Eosinophils 0.1 10 3/uL Basophils 0.0 10 3/uL Neutrophil % 75.3 % Lymphocyte % 11.7 % Monocyte % 10.6 % Eosinophil % 1.3 % Basophils % 0.3 % NRBC % 0 % PSA 8.990 ng/mL Impression: Biochemical recurrence, CT scan of abdomen pelvis done on 04/25/2018 showed sclerotic lesions in the pelvic bones no pelvic lymphadenopathy or abnormal mass. History of prostrate cancer initially diagnosed in 2006 at that time his PSA was 7.1 and left-sided nodule biopsy showed 6 out of 12 cores positive for 3+3/3+ for DIRECTOR OF INVESTIGATIONS with 20-60% involvement status post external beam radiation therapy completed in March 2007 Follow-up PSA showed excellent response till 2009 when PSA started going up underwent rebiopsy of prostate on 09/14/2009 which was nondiagnostic but suspicious for malignancy. Started on LHRH agonist in December 2009 2 weeks of Casodex, excellent response PSA become undetectable still January 2012 with slow rise thereafter e.g. 0.27 on 08/05/2012, 2 in May 2013, 7 in November 2013, 8.4 in March 2015 bicalutamide was admitted in September 2015 later stopped after PSA continued to go up, subsequently underwent bilateral scrotal orchiectomy in April 2017 PSA continued to rise around 20 on 01/28/2018 for the gone up to 39.58 in April 2018, at that time Casodex 50 mg by mouth was started and patient was referred to medical oncology clinic Zoladex 10.8 mg every 3 months started on 06/01/2018 Bone scan done on 06/01/2018 showed L3 and L4 vertebral body increased activity corresponding to the prior CT sclerosis. Left T10 and T7 lateral vertebral body or facet increase activity you from prior exam done in December 2006,. New right lateral posterior ninth rib focus of increased activity. did see Mr. Jacobs in August 2018 at which time Mr. Jacobs was having moderate to severe distress with progressive lower back pain. He was sent to the emergency room for evaluation for possible metastatic disease or prolapse/collapsed vertebra. His PSA at that time was 34.24 and his testosterone was 19.9. New right sixth and eighth anterior lateral rib focus of increased activity. Recently diagnosed with thyroid cancer status post thyroidectomy with lymph node dissection now radioactive iodine therapy was under consideration as of June 2018. Mr. Jacobs was seen in the emergency room on 09/07/2018 for low back pain. He apparently been having back pain for 2 weeks. It was described as intermittent dull and sharp pain sometimes radiating to the left hip. It has gotten progressively worse. The pain medication was only partly relieving it. He did have a CT of the lumbar spine on 09/07/2018. It showed progressive sclerotic metastatic disease along the posterior margin of the right L1 vertebral body, the superior endplates of L3 and L4, left L3 pedestal, sclerotic focus involving the right anterior aspect of the L5 body and sclerotic focus along the lateral margin of the right iliac bone. He was referred to Dr. Corral for consideration of palliative radiation therapy. Dr. Corral did see him the same day on 09/07/2018. And did recommend palliative radiation to the lower back to control the metastatic disease in relieve pain. He was also started on Decadron 4 mg every 6 hours for 7 days in the emergency room on 09/07/2018. Mr Jacobs received radiation therapy to the spine He received 3000 cGy total dose to the SPINE GTV30 starting 09/13/2018 and ending 10/01/2018. He then received treatment to T10 spine, ref ID: T10 Spine to a total dose of 3000 cGy starting 02/03/2019 and ending on 02/17/2019. He has had an excellent response to the radiation with his back pain resolved. He has been on denosumab since June 10, 2018 per our chart. He continues with Zoladex with his last dose being given on March 25, 2019. He also received denosumab at that time as well. Mr. Jacobs is here today to begin further treatment for his disease progression. He has had significant elevation of his PSA on March 25, 2019 it was 44. On January 20, 2019 it was 29. It has been recommended that he pursue treatment with Zytiga/prednisone and continue the every 3-month dose of Zoladex and monthly denosumab. Persistent leukopenia, bone marrow done on July 07, 2019 showed no evidence of myelodysplasia or any other marrow abnormality, could be due to treatment with radioactive iodine Plan: Discussed with patient regarding his labs white blood count 4.6 hemoglobin 13.4 hematocrit 40.4 platelets 149,000 CMP within normal limits PSA 7.44 compared to 8.99 previously and testosterone less than 2.5 Clinically, patient denies any specific complaints suggestive of disease progression, his follow-up labs shows PSA continue to improve while on 3 monthly Zoladex/monthly Xgeva along with abiraterone/prednisone, we will proceed with his next 3 monthly dose of Zoladex and monthly dose of Xgeva today and then will consider bone scan and CT scan of abdomen pelvis if it shows improvement or no evidence of disease, may consider switching Xgeva to every 3 months along with Zoladex while continue with abiraterone/prednisone As far as mild leukopenia and thrombocytopenia is concerned, follow-up labs shows resolution of both so we will continue to monitor and patient return to clinic in 1 month with CBC CMP and CT scan of abdomen pelvis and bone scan Patient was also advised to quit smoking and was offered any assistance he may need Signed By: Daniel Monahan M.D. <<Signature on File>>
== END 2020-07-26 08:07 | disposition home or self-care (01) ==
LOC: ONCMED 08:09
PROVIDERS: PCP Family Medicine; Visit Provider Internal Medicine Hematology & Oncology
DX: Z51.11 Encounter for antineoplastic chemotherapy (principal); C61 Malignant neoplasm of prostate; C79.51 Secondary malignant neoplasm of bone; C73 Malignant neoplasm of thyroid gland; R97.20 Elevated prostate specific antigen [PSA]; Z79.899 Other long term (current) drug therapy; Z79.818 Long term (current) use of other agents affecting estrogen receptors and estrogen levels; Z92.21 Personal history of antineoplastic chemotherapy
CPT/HCPCS: 80053; 84153; 84403; 85025; 96372; 96402; 99215; J0897; J9202

== ENCOUNTER 2020-08-21 12:34 | Outpatient (CLI) | payer MEDICARE, MEDICAID, SELFPAY ==
--- NOTE | 2020-08-21 12:41 | CT_ITS ---
WS: [id number] CT ABDOMEN AND PELVIS WITH CONTRAST HISTORY: PROSTATE CANCER TECHNIQUE: Imaging performed of the abdomen and pelvis with IV contrast. Single phase imaging of the abdomen. Coronal and sagittal reformats are submitted. All CT scans at [facility] use at least one of these dose optimization techniques: automated exposure control; mA and/or kV adjustment per patient size (includes targeted exams where dose is matched to clinical indication); or iterativ e reconstruction. IV CONTRAST: Omnipaque 300; 95 mL IV. Oral contrast: Yes. DLP: 1015.28 mGycm COMPARISON: 04/09/2019 Lower thorax: Benign granuloma LEFT lower lobe. Heart is normal size. Small hiatal hernia. Liver/biliary system: Normal size liver. Low-attenuation nodule in the LEFT lobe of the liver with si milar appearance to 04/09/2019. Probably an area of fatty infiltration. Gallbladder: Normal. No gallstones or wall thickening. No pericholecystic fluid. Pancreas: Normal pancreas. No mass. There are a few scattered calcifications within the body of the p ancreas. Spleen: Normal size spleen. No mass or infarct. Adrenal glands: Normal. Right kidney: Mild diffuse cortical thinning without atrophy. No obstruction. Left kidney: Cortical cyst upper pole measures 4.2 x 4.4 cm. No solid mass or obstruction. There is a n additional cyst exophytic from the lower pole which is unchanged since 04/09/2019. Aorta: Mild atherosclerosis with no aneurysm. Lymphadenopathy: None. Free fluid: None. GI tract: Normal appendix. No GI tract obstruction. Normal small bowel. Numerous diverticula descendi ng and sigmoid colon. No obstruction at the site of diverticula or acute diverticulitis. Abdominal wall: Unremarkable abdominal wall. No hernia. Pelvis: Small caliber prostate gland. No adenopathy or fluid in the pelvis. Bones: Sclerotic foci are present within the spine and pelvis and lower extremities as visualized. Th e rounded sclerotic focus and L2 has increased in size from 2 mm to 9 mm. Also this sclerotic focus s flakita focus focus in the posterior L1 vertebral body is slightly more prominent. Sclerotic distribution is also increased in the posterior RIGHT eighth rib. RIGHT femoral head osteonecrosis. CT/CT abdomen pelvis w con* [id number] IMPRESSION: 1. Several of the sclerotic foci have increased in size since 04/09/2019 and . Specifically, RIGHT eighth rib, L1 and L2 vertebral bodies. Progressio n of bony metastatic disease should be considered. The remaining sclerotic foci are stable. Consider follow-up bone scan imaging. 2. No metastatic disease within the chest, abdomen or pelvis. 3. Stable LEFT renal cysts. 4. Atherosclerosis aorta. 5. Distal colon diverticulosis without diverticulitis.
[2020-08-21] MEDS: iohexol 300 mg/mL 50 mL Btl PO (13:39)
[2020-08-21] MEDS: iohexol 300 mg/mL 100 mL Btl IV (14:00)
== END 2020-08-21 12:35 | disposition home or self-care (01) ==
PROVIDERS: PCP Family Medicine; Visit Provider Internal Medicine Hematology & Oncology
DX: C61 Malignant neoplasm of prostate (principal); K57.90 Diverticulosis of intestine, part unspecified, without perforation or abscess without bleeding; I70.0 Atherosclerosis of aorta; N28.1 Cyst of kidney, acquired
CPT/HCPCS: 74177; Q9967

== ENCOUNTER 2020-08-27 12:31 | Outpatient (CLI) | payer MEDICARE, MEDICAID, SELFPAY ==
[2020-08-27 13:04] LABS: Basophils % 0.7 %; Eosinophils % 1.3 %; Hematocrit 40.1 % (42.0-52.0); Lymphocytes # 0.6 10^3/uL (0.8-4.8); Mean Corpuscular HGB Conc 32.4 g/dL (30.0-36.0); Mean Corpuscular Hemoglobin 31.5 pg (28.0-34.0); Mean Corpuscular Volume 97.1 fL (80-94); Mean Platelet Volume 10.6 fL (7.4-10.4); Monocytes # 0.4 10^3/uL (0.2-0.9); Monocytes % 13.4 %; Neutrophils # 1.98 10^3/uL (1.8-7.7); Neutrophils % 64.6 %; Nucleated Red Blood Cells % 0 %; Platelet Count 141 10^3/cmm (130-400); Red Blood Count 4.13 10^6/uL (4.1-5.3); Red Cell Distribution Width 12.8 % (12.1-15.1); White Blood Count 3.1 10^3/uL (4.0-10.0)
--- NOTE | 2020-08-27 17:38 | ONC FU_ITS ---
Dr. Monahan follow up note Patient: Charlie Jacobs Unit #: [id number]: 1945 Dicatated By: Daniel Monahan M.D.Date of Visit:Aug 27, 2020 Onc Med Follow-up/Prog Note History of Present Illness: Mr. Jacobs is a 75-year-old gentleman with history of prostate cancer initially diagnosed in December 2006. At that time, his PSA was 7.1 and left sided nodule biopsies showed 6 out of 12 cores positive for 3+3/3+4 TELEHEALTH COORDINATOR with 20-60% involvement. He received external beam radiation therapy which he completed in March 2007. Follow-up PSA level showed good response but start increasing and peak prior to initiation of hormonal therapy was 6.1, patient underwent rebiopsy on 09/14/2009 which showed suspicious pathology but not diagnostic. Mr Jacobs was started on LHRH agonist in December 2009 with 2 weeks of Casodex. He had excellent response. PSA was undetectable till January 2012 thereafter slow rise e.g. 0.27 on 08/05/2012 and 2 in May 2013, 7 in November 2013 and 8.4 in March 2015. Bicalutamide was added. In September 2015 and later stopped after increasing PSA again. In April 2017 bilateral scrotal orchiectomy was done. But PSA continued to rise in January 2018 was around 19 and in April 2018,gone up to 39.58. At that time, he started on Casodex 50 mg by mouth daily and CT scan of abdomen pelvis was done on 04/25/2018 which showed no pelvic lymphadenopathy but nonspecific multifocal osseous sclerotic foci; descending sigmoid colon diverticulosis with the descending sigmoid colon junction short segment diverticulitis patient was treated with antibiotics. Zoladex 10.8 mg was started on 06/01/2018. In the meantime, Mr Jacobs developed a mass in the right side of his neck and further investigation led to the diagnosis of thyroid cancer. He underwent thyroidectomy with lymph node dissection- as per patient, cancer was involving lymph nodes. s/p radioactive iodine treatment in early June in [facility]. Mr. Jacobs was seen in the emergency room on 09/07/2018 for low back pain. He apparently had been having back pain for 2 weeks. It was described as intermittent dull and sharp pain sometimes radiating to the left hip. It has gotten progressively worse. The pain medication was only partly relieving it. He did have a CT of the lumbar spine on 09/07/2018. It showed progressive sclerotic metastatic disease along the posterior margin of the right L1 vertebral body, the superior endplates of L3 and L4, left L3 pedestal, sclerotic focus involving the right anterior aspect of the L5 body and sclerotic focus along the lateral margin of the right iliac bone. He was referred to Dr. Corral for consideration of palliative radiation therapy. Dr. Corral did see him the same day on 09/07/2018 and did recommend palliative radiation to the lower back to control the metastatic disease and relieve pain. He was also started on Decadron 4 mg every 6 hours for 7 days in the emergency room on 09/07/2018. Mr Jacobs received radiation therapy to the spine He received 3000 cGy total dose to the SPINE GTV30 starting 09/13/2018 and ending 10/01/2018. He then received treatment to T10 spine, ref ID: [id number] Spine to a total dose of 3000 cGy starting 02/03/2019 and ending on 02/17/2019. He has had an excellent response to the radiation with his back pain resolved. He has been on denosumab since June 10, 2018 per our chart. He continues with Zoladex with his last dose being given on August 30, 2019. He also received denosumab at that time as well. He had significant elevation of his PSA on March 25, 2019 it was 44. On January 20, 2019 it was 29. It was recommended that he pursue treatment with Zytiga/prednisone and continue the every 3-month dose of Zoladex and monthly denosumab. As per patient, he went to emergency room with hypertension and abdominal discomfort. He underwent a CT scan of abdomen on the 04/09/2019 which showed nonspecific bibasilar groundglass opacity consistent with atelectasis edema or pneumonia. Unchanged size of sclerotic bone lesions. Avascular necrosis of right femoral head. Diverticulosis without diverticulitis. No hydronephrosis. His blood pressure was within normal range and pulse was between 90 and 100 and as per patient and his EKG did not show any abnormality. Patient was treated IV fluid and discharge home on oral antibiotic Flagyl for presumed diagnosis of diverticulitis, was referred to Dr. Fermin for GI evaluation, as per patient now colonoscopy is under consideration. His labs ER on 04/09/2019 shows white blood count 2.6 and globin 12.4 hematocrit 37 platelets 130,000 CMP within normal limits The zytiga /prednisone was discontinued by Mr Jacobs on 04/11/2019 because of diarrhea and hypertension. It was restarted on 05/26/2019. CT scan of thoracic lumbar spine done on June 27, 2019 showed no changes in thoracic spine. shows arthropathy and lumbar spine show slight progressed blastic lesion in L1, 8.2 mm but severe central canal stenosis in L3-4, and L4-5 and advanced arthropathy. tolerating Zytiga. Prednisone, Zoladex and Xgeva. chronic back pain for which he has seen orthopedics and now back surgery under consideration. But patient decided not to proceed with the surgery Follow-up CT scan of abdomen pelvis done on August 21, 2020 shows no metastatic disease within the chest abdomen or pelvis, stable left renal cysts, distal colon diverticulosis without diverticulitis. Several of the sclerotic foci have increased in size since March 2019 in June 2019. Specifically right eighth rib, L1 and L2 vertebral body. Progression of bony mets should be considered, bone scan recommended Came for follow-up, denies any specific complaints, no fever chills, no nausea or vomiting, no diarrhea or constipation, no new bony pains, appetite is good, tolerating abiraterone/prednisone/Zoladex/Xgeva well otherwise Medications: Albuterol Sulfate 1 puff(s) (of (2.5 mg/3ml) 0.083%) Nebulization solution Inhalation four times a day, Alfuzosin HCl ER 1 Tablet (of 10 mg) Tablet SR 24 HR Oral at bedtime, Aspirin 1 Tablet (of 81 mg) Oral daily, Atorvastatin Calcium 1 Tablet (of 80 mg) Oral daily, Belsomra 1 Tablet (of 15 mg) Oral at bedtime PRN, Cetirizine HCl 1 Tablet (of 10 mg) Oral daily, Cyclobenzaprine HCl 0.5 - 1 Tablet (of 10 mg) Oral t.i.d. PRN, Esomeprazole Magnesium 1 Capsule (of 40 mg) Capsule Delayed Release Oral daily, HYDROcodone-Acetaminophen 1 Tablet (of 10-325 mg) Oral four times a day PRN, Ipratropium-Albuterol 1 puff(s) (of 0.5-2.5 (3) mg/3ml) Solution Inhalation q 4 hours PRN, Januvia 1 Tablet (of 25 mg) Oral daily, Levothyroxine Sodium 1 Tablet (of 175 mcg) Oral daily, Lisinopril 0.5 Tablet (of 20 mg) Oral daily, Metoprolol Succinate ER 1 Tablet (of 25 mg) Tablet SR 24 HR Oral daily, Mirtazapine 1 Tablet (of 7.5 mg) Oral daily, Montelukast Sodium 1 Tablet (of 10 mg) Oral daily, Nitroglycerin 1 Tablet (of 0.4 mg) Tablet, sublingual Sublingual PRN, ProAir HFA 1 puff(s) (of 108 (90 base) mcg/act) Aerosol, solution Inhalation q 4 hours PRN, Probiotic Digestive Support 1 Capsule Oral daily, Trelegy Ellipta 1 Puff(s) (of 100-62.5-25 mcg/inh) Aerosol Powder, Breath Activated Inhalation daily, Xgeva 1 Subcutaneous q 30 days, Zetia 1 Tablet (of 10 mg) Oral daily, Zoladex (10.8 mg) Subcutaneous q 12 weeks Allergies: Vancomycin HCl Review of Systems: Review of Systems is not available for this patient. Vital Signs: Performed on Aug 27, 2020 16:23 Height - 75.00 in Weight - 243.8 lbs (LOW) BSA - 2.39 sq.m BMI - 30.47 (HIGH) Temperature - 98.1 F (LOW) Pulse - 96 /min Respiration - 18 /min BP - 148/85 mm(hg) (HIGH) O2 Sat - 93 % (LOW) Pain - 0 Fatigue - 8 Performance Status: 0 - Fully active, able to carry on all predisease activities without restrictions. (ECOG) Physical Examination: ENMT - No mouth sores, no thrush, no jaundice, Respiratory - Lungs are clear to auscultation, Cardiovascular - Regular rate and rhythm of heart, Abdomen - Soft, bowel sounds present, Extremities - No visible edema. Lab/Imaging: Test performed on May 23, 2020 11:20 WBC 3.9 10 3/uL RBC 4.08 10 6/uL HGB 12.9 g/dL HCT 38.9 % MCV 95.3 fL MCH 31.6 pg MCHC 33.2 g/dL RDW 12.7 % Platelet Count 128 10 3/cmm MPV 10.9 fL Neutrophils 2.90 10 3/uL Lymphocytes 0.5 10 3/uL Monocytes 0.4 10 3/uL Eosinophils 0.1 10 3/uL Basophils 0.0 10 3/uL Neutrophil % 75.3 % Lymphocyte % 11.7 % Monocyte % 10.6 % Eosinophil % 1.3 % Basophils % 0.3 % NRBC % 0 % PSA 8.990 ng/mL Impression: Biochemical recurrence, CT scan of abdomen pelvis done on 04/25/2018 showed sclerotic lesions in the pelvic bones no pelvic lymphadenopathy or abnormal mass. History of prostrate cancer initially diagnosed in 2006 at that time his PSA was 7.1 and left-sided nodule biopsy showed 6 out of 12 cores positive for 3+3/3+ for TELEHEALTH COORDINATOR with 20-60% involvement status post external beam radiation therapy completed in March 2007 Follow-up PSA showed excellent response till 2009 when PSA started going up underwent rebiopsy of prostate on 09/14/2009 which was nondiagnostic but suspicious for malignancy. Started on LHRH agonist in December 2009 2 weeks of Casodex, excellent response PSA become undetectable still January 2012 with slow rise thereafter e.g. 0.27 on 08/05/2012, 2 in May 2013, 7 in November 2013, 8.4 in March 2015 bicalutamide was admitted in September 2015 later stopped after PSA continued to go up, subsequently underwent bilateral scrotal orchiectomy in April 2017 PSA continued to rise around 20 on 01/28/2018 for the gone up to 39.58 in April 2018, at that time Casodex 50 mg by mouth was started and patient was referred to medical oncology clinic Zoladex 10.8 mg every 3 months started on 06/01/2018 Bone scan done on 06/01/2018 showed L3 and L4 vertebral body increased activity corresponding to the prior CT sclerosis. Left T10 and T7 lateral vertebral body or facet increase activity you from prior exam done in December 2006,. New right lateral posterior ninth rib focus of increased activity. did see Mr. Jacobs in August 2018 at which time Mr. Jacobs was having moderate to severe distress with progressive lower back pain. He was sent to the emergency room for evaluation for possible metastatic disease or prolapse/collapsed vertebra. His PSA at that time was 34.24 and his testosterone was 19.9. New right sixth and eighth anterior lateral rib focus of increased activity. Recently diagnosed with thyroid cancer status post thyroidectomy with lymph node dissection now radioactive iodine therapy was under consideration as of June 2018. Mr. Jacobs was seen in the emergency room on 09/07/2018 for low back pain. He apparently been having back pain for 2 weeks. It was described as intermittent dull and sharp pain sometimes radiating to the left hip. It has gotten progressively worse. The pain medication was only partly relieving it. He did have a CT of the lumbar spine on 09/07/2018. It showed progressive sclerotic metastatic disease along the posterior margin of the right L1 vertebral body, the superior endplates of L3 and L4, left L3 pedestal, sclerotic focus involving the right anterior aspect of the L5 body and sclerotic focus along the lateral margin of the right iliac bone. He was referred to Dr. Corral for consideration of palliative radiation therapy. Dr. Corral did see him the same day on 09/07/2018. And did recommend palliative radiation to the lower back to control the metastatic disease in relieve pain. He was also started on Decadron 4 mg every 6 hours for 7 days in the emergency room on 09/07/2018. Mr Jacobs received radiation therapy to the spine He received 3000 cGy total dose to the SPINE GTV30 starting 09/13/2018 and ending 10/01/2018. He then received treatment to T10 spine, ref ID: [id number] Spine to a total dose of 3000 cGy starting 02/03/2019 and ending on 02/17/2019. He has had an excellent response to the radiation with his back pain resolved. He has been on denosumab since June 10, 2018 per our chart. He continues with Zoladex with his last dose being given on March 25, 2019. He also received denosumab at that time as well. Mr. Jacobs is here today to begin further treatment for his disease progression. He has had significant elevation of his PSA on March 25, 2019 it was 44. On January 20, 2019 it was 29. It has been recommended that he pursue treatment with Zytiga/prednisone and continue the every 3-month dose of Zoladex and monthly denosumab. Persistent leukopenia, bone marrow done on July 07, 2019 showed no evidence of myelodysplasia or any other marrow abnormality, could be due to treatment with radioactive iodine Plan: Discussed with patient regarding his labs white blood count 3.1 hemoglobin 13 marked 40.1 platelets 141,000 PSA 6.19 compared to 7.44 previously and follow-up CT scan of abdomen pelvis which shows no visceral disease or lymphadenopathy but multiple sclerotic foci have increased when compared with CT scans done in March and June 2019 Clinically, patient doing well with no new signs symptom is follow-up labs shows PSA continue to improve, tolerating 3 monthly Zoladex/abiraterone/prednisone and monthly Xgeva well, discussed with patient regarding his follow-up CT scan which showed no lymphadenopathy no visceral disease but multiple sclerotic bone lesion consistent with metastatic disease but when compared with scans from June 2019, there is a disease progression, bone scan was recommended so we will order bone scan to assess bone mets, as patient in the recent past has been treated with radioactive iodine for thyroid cancer, especially with PSA continue to improve while on Zoladex/abiraterone/prednisone/Xgeva, patient was scheduled for Xgeva but at patient's request will hold and review bone scan if it shows excellent response then we may change Xgeva to every 3-month along with Zoladex otherwise will continue every month. Patient will return to clinic after bone scan for further discussion Signed By: Daniel Monahan M.D. <<Signature on File>>
== END 2020-08-27 12:32 | disposition home or self-care (01) ==
PROVIDERS: PCP Family Medicine; Visit Provider Internal Medicine Hematology & Oncology
DX: C73 Malignant neoplasm of thyroid gland (principal); C79.51 Secondary malignant neoplasm of bone; I10 Essential (primary) hypertension; K57.30 Diverticulosis of large intestine without perforation or abscess without bleeding; M34.0 Progressive systemic sclerosis; Z85.46 Personal history of malignant neoplasm of prostate; Z79.899 Other long term (current) drug therapy
CPT/HCPCS: 36415; 84153; 85025; 99214

== ENCOUNTER 2020-09-06 08:21 | Outpatient (CLI) | payer MEDICARE, MEDICAID, SELFPAY ==
--- NOTE | 2020-09-06 08:29 | NM_ITS ---
WS: [id number] [place] bone scan whole body* [id number] REASON FOR EXAM: RESTAGING EVALUATION/PROSTATE CANCER TECHNICAL: 27.4 mCi of technetium 99m HDP whole body skeletal imaging multiple projections. FINDINGS: Compared to previous examination of 06/01/2018 costovertebral uptake on the left at T12 and T8 unchang ed. Uptake right ninth rib posteriorly unchanged from 06/01/2018. Anterior right rib costochondral junctio n uptake unchanged compared to 06/01/2018. Multiple areas of uptake in the lower lumbar region compatible with degenerative spondylosis, unchang ed compared to 06/01/2018. The uptake in the L3 vertebral body 06/01/2018 is not readily identifiable at this time. Focal uptake in the right 11th rib posterior laterally 06/01/2018 is only faintly seen at this point. No other significant findings. No new areas of uptake identified. OH/[place] bone scan whole body* [id number] IMPRESSION: Multiple areas of radionuclide uptake unchanged compared to the previous study and unlikely to represent metastatic disease.
== END 2020-09-06 08:22 | disposition home or self-care (01) ==
LOC: NM 08:23
PROVIDERS: PCP Family Medicine; Visit Provider Internal Medicine Hematology & Oncology
DX: C61 Malignant neoplasm of prostate (principal)
CPT/HCPCS: 78306; A9561

== ENCOUNTER 2020-09-21 08:16 | Outpatient (CLI) | payer MEDICARE, MEDICAID, SELFPAY ==
--- NOTE | 2020-09-21 09:56 | ONC FU_ITS ---
Dr. Monahan follow up note Patient: Charlie Jacobs Unit #: [id number]: 1945 Dicatated By: Daniel Monahan M.D.Date of Visit:Sep 21, 2020 Onc Med Follow-up/Prog Note History of Present Illness: Mr. Jacobs is a 75-year-old gentleman with history of prostate cancer initially diagnosed in December 2006. At that time, his PSA was 7.1 and left sided nodule biopsies showed 6 out of 12 cores positive for 3+3/3+4 [employer] with 20-60% involvement. He received external beam radiation therapy which he completed in March 2007. Follow-up PSA level showed good response but start increasing and peak prior to initiation of hormonal therapy was 6.1, patient underwent rebiopsy on 09/14/2009 which showed suspicious pathology but not diagnostic. Mr Jacobs was started on LHRH agonist in December 2009 with 2 weeks of Casodex. He had excellent response. PSA was undetectable till January 2012 thereafter slow rise e.g. 0.27 on 08/05/2012 and 2 in May 2013, 7 in November 2013 and 8.4 in March 2015. Bicalutamide was added. In September 2015 and later stopped after increasing PSA again. In April 2017 bilateral scrotal orchiectomy was done. But PSA continued to rise in January 2018 was around 19 and in April 2018,gone up to 39.58. At that time, he started on Casodex 50 mg by mouth daily and CT scan of abdomen pelvis was done on 04/25/2018 which showed no pelvic lymphadenopathy but nonspecific multifocal osseous sclerotic foci; descending sigmoid colon diverticulosis with the descending sigmoid colon junction short segment diverticulitis patient was treated with antibiotics. Zoladex 10.8 mg was started on 06/01/2018. In the meantime, Mr Jacobs developed a mass in the right side of his neck and further investigation led to the diagnosis of thyroid cancer. He underwent thyroidectomy with lymph node dissection- as per patient, cancer was involving lymph nodes. s/p radioactive iodine treatment in early June in [facility]. Mr. Jacobs was seen in the emergency room on 09/07/2018 for low back pain. He apparently had been having back pain for 2 weeks. It was described as intermittent dull and sharp pain sometimes radiating to the left hip. It has gotten progressively worse. The pain medication was only partly relieving it. He did have a CT of the lumbar spine on 09/07/2018. It showed progressive sclerotic metastatic disease along the posterior margin of the right L1 vertebral body, the superior endplates of L3 and L4, left L3 pedestal, sclerotic focus involving the right anterior aspect of the L5 body and sclerotic focus along the lateral margin of the right iliac bone. He was referred to Dr. Corral for consideration of palliative radiation therapy. Dr. Corral did see him the same day on 09/07/2018 and did recommend palliative radiation to the lower back to control the metastatic disease and relieve pain. He was also started on Decadron 4 mg every 6 hours for 7 days in the emergency room on 09/07/2018. Mr Jacobs received radiation therapy to the spine He received 3000 cGy total dose to the SPINE GTV30 starting 09/13/2018 and ending 10/01/2018. He then received treatment to T10 spine, ref ID: [id number] Spine to a total dose of 3000 cGy starting 02/03/2019 and ending on 02/17/2019. He has had an excellent response to the radiation with his back pain resolved. He has been on denosumab since June 10, 2018 per our chart. He continues with Zoladex with his last dose being given on August 30, 2019. He also received denosumab at that time as well. He had significant elevation of his PSA on March 25, 2019 it was 44. On January 20, 2019 it was 29. It was recommended that he pursue treatment with Zytiga/prednisone and continue the every 3-month dose of Zoladex and monthly denosumab. As per patient, he went to emergency room with hypertension and abdominal discomfort. He underwent a CT scan of abdomen on the 04/09/2019 which showed nonspecific bibasilar groundglass opacity consistent with atelectasis edema or pneumonia. Unchanged size of sclerotic bone lesions. Avascular necrosis of right femoral head. Diverticulosis without diverticulitis. No hydronephrosis. His blood pressure was within normal range and pulse was between 90 and 100 and as per patient and his EKG did not show any abnormality. Patient was treated IV fluid and discharge home on oral antibiotic Flagyl for presumed diagnosis of diverticulitis, was referred to Dr. Fermin for GI evaluation, as per patient now colonoscopy is under consideration. His labs ER on 04/09/2019 shows white blood count 2.6 and globin 12.4 hematocrit 37 platelets 130,000 CMP within normal limits The zytiga /prednisone was discontinued by Mr Jacobs on 04/11/2019 because of diarrhea and hypertension. It was restarted on 05/26/2019. CT scan of thoracic lumbar spine done on June 27, 2019 showed no changes in thoracic spine. shows arthropathy and lumbar spine show slight progressed blastic lesion in L1, 8.2 mm but severe central canal stenosis in L3-4, and L4-5 and advanced arthropathy. tolerating Zytiga. Prednisone, Zoladex and Xgeva. chronic back pain for which he has seen orthopedics and now back surgery under consideration. But patient decided not to proceed with the surgery Follow-up CT scan of abdomen pelvis done on August 21, 2020 shows no metastatic disease within the chest abdomen or pelvis, stable left renal cysts, distal colon diverticulosis without diverticulitis. Several of the sclerotic foci have increased in size since March 2019 in June 2019. Specifically right eighth rib, L1 and L2 vertebral body. Progression of bony mets should be considered, bone scan recommended f/u Bone scan done on September 06, 2020 shows no new area of uptake identified but multiple areas of radionuclide uptake unchanged when compared with previous study Came for follow-up, denies any specific complaint except chronic back pain which is under control with current pain medication otherwise no fever chills, no nausea or vomiting, no diarrhea or constipation, no melena or hematochezia, no hemoptysis or hematemesis, no jaundice, no hematuria or dysuria, occasionally hot flashes otherwise tolerating 3 monthly Zoladex, abiraterone/prednisone, Xgeva well Medications: Albuterol Sulfate 1 puff(s) (of (2.5 mg/3ml) 0.083%) Nebulization solution Inhalation four times a day, Alfuzosin HCl ER 1 Tablet (of 10 mg) Tablet SR 24 HR Oral at bedtime, Aspirin 1 Tablet (of 81 mg) Oral daily, Atorvastatin Calcium 1 Tablet (of 80 mg) Oral daily, Belsomra 1 Tablet (of 15 mg) Oral at bedtime PRN, Cetirizine HCl 1 Tablet (of 10 mg) Oral daily, Cyclobenzaprine HCl 0.5 - 1 Tablet (of 10 mg) Oral t.i.d. PRN, Esomeprazole Magnesium 1 Capsule (of 40 mg) Capsule Delayed Release Oral daily, HYDROcodone-Acetaminophen 1 Tablet (of 10-325 mg) Oral four times a day PRN, Ipratropium-Albuterol 1 puff(s) (of 0.5-2.5 (3) mg/3ml) Solution Inhalation q 4 hours PRN, Januvia 1 Tablet (of 25 mg) Oral daily, Levothyroxine Sodium 1 Tablet (of 175 mcg) Oral daily, Lisinopril 0.5 Tablet (of 20 mg) Oral daily, Metoprolol Succinate ER 1 Tablet (of 25 mg) Tablet SR 24 HR Oral daily, Mirtazapine 1 Tablet (of 7.5 mg) Oral daily, Montelukast Sodium 1 Tablet (of 10 mg) Oral daily, Nitroglycerin 1 Tablet (of 0.4 mg) Tablet, sublingual Sublingual PRN, ProAir HFA 1 puff(s) (of 108 (90 base) mcg/act) Aerosol, solution Inhalation q 4 hours PRN, Probiotic Digestive Support 1 Capsule Oral daily, Trelegy Ellipta 1 Puff(s) (of 100-62.5-25 mcg/inh) Aerosol Powder, Breath Activated Inhalation daily, Xgeva 1 Subcutaneous q 30 days, Zetia 1 Tablet (of 10 mg) Oral daily, Zoladex (10.8 mg) Subcutaneous q 12 weeks Allergies: Vancomycin HCl Review of Systems: Review of Systems is not available for this patient. Vital Signs: Performed on Sep 21, 2020 08:33 Height - 75.00 in Weight - 243.6 lbs (LOW) BSA - 2.39 sq.m BMI - 30.45 (HIGH) Temperature - 97.6 F (LOW) Pulse - 96 /min Respiration - 18 /min BP - 129/77 mm(hg) O2 Sat - 96 % Pain - 5 Fatigue - 6 Performance Status: 0 - Fully active, able to carry on all predisease activities without restrictions. (ECOG) Physical Examination: ENMT - No mouth sores, no thrush, no jaundice, Respiratory - Lungs are clear to auscultation, Cardiovascular - Regular rate and rhythm of heart, Abdomen - Soft, bowel sounds present, Extremities - No visible edema. Lab/Imaging: Test performed on May 23, 2020 11:20 WBC 3.9 10 3/uL RBC 4.08 10 6/uL HGB 12.9 g/dL HCT 38.9 % MCV 95.3 fL MCH 31.6 pg MCHC 33.2 g/dL RDW 12.7 % Platelet Count 128 10 3/cmm MPV 10.9 fL Neutrophils 2.90 10 3/uL Lymphocytes 0.5 10 3/uL Monocytes 0.4 10 3/uL Eosinophils 0.1 10 3/uL Basophils 0.0 10 3/uL Neutrophil % 75.3 % Lymphocyte % 11.7 % Monocyte % 10.6 % Eosinophil % 1.3 % Basophils % 0.3 % NRBC % 0 % PSA 8.990 ng/mL Impression: Biochemical recurrence, CT scan of abdomen pelvis done on 04/25/2018 showed sclerotic lesions in the pelvic bones no pelvic lymphadenopathy or abnormal mass. History of prostrate cancer initially diagnosed in 2006 at that time his PSA was 7.1 and left-sided nodule biopsy showed 6 out of 12 cores positive for 3+3/3+ for [employer] with 20-60% involvement status post external beam radiation therapy completed in March 2007 Follow-up PSA showed excellent response till 2009 when PSA started going up underwent rebiopsy of prostate on 09/14/2009 which was nondiagnostic but suspicious for malignancy. Started on LHRH agonist in December 2009 2 weeks of Casodex, excellent response PSA become undetectable still January 2012 with slow rise thereafter e.g. 0.27 on 08/05/2012, 2 in May 2013, 7 in November 2013, 8.4 in March 2015 bicalutamide was admitted in September 2015 later stopped after PSA continued to go up, subsequently underwent bilateral scrotal orchiectomy in April 2017 PSA continued to rise around 20 on 01/28/2018 for the gone up to 39.58 in April 2018, at that time Casodex 50 mg by mouth was started and patient was referred to medical oncology clinic Zoladex 10.8 mg every 3 months started on 06/01/2018 Bone scan done on 06/01/2018 showed L3 and L4 vertebral body increased activity corresponding to the prior CT sclerosis. Left T10 and T7 lateral vertebral body or facet increase activity you from prior exam done in December 2006,. New right lateral posterior ninth rib focus of increased activity. did see Mr. Jacobs in August 2018 at which time Mr. Jacobs was having moderate to severe distress with progressive lower back pain. He was sent to the emergency room for evaluation for possible metastatic disease or prolapse/collapsed vertebra. His PSA at that time was 34.24 and his testosterone was 19.9. New right sixth and eighth anterior lateral rib focus of increased activity. Recently diagnosed with thyroid cancer status post thyroidectomy with lymph node dissection now radioactive iodine therapy was under consideration as of June 2018. Mr. Jacobs was seen in the emergency room on 09/07/2018 for low back pain. He apparently been having back pain for 2 weeks. It was described as intermittent dull and sharp pain sometimes radiating to the left hip. It has gotten progressively worse. The pain medication was only partly relieving it. He did have a CT of the lumbar spine on 09/07/2018. It showed progressive sclerotic metastatic disease along the posterior margin of the right L1 vertebral body, the superior endplates of L3 and L4, left L3 pedestal, sclerotic focus involving the right anterior aspect of the L5 body and sclerotic focus along the lateral margin of the right iliac bone. He was referred to Dr. Corral for consideration of palliative radiation therapy. Dr. Corral did see him the same day on 09/07/2018. And did recommend palliative radiation to the lower back to control the metastatic disease in relieve pain. He was also started on Decadron 4 mg every 6 hours for 7 days in the emergency room on 09/07/2018. Mr Jacobs received radiation therapy to the spine He received 3000 cGy total dose to the SPINE GTV30 starting 09/13/2018 and ending 10/01/2018. He then received treatment to T10 spine, ref ID: T10 Spine to a total dose of 3000 cGy starting 02/03/2019 and ending on 02/17/2019. He has had an excellent response to the radiation with his back pain resolved. He has been on denosumab since June 10, 2018 per our chart. He continues with Zoladex with his last dose being given on March 25, 2019. He also received denosumab at that time as well. He has had significant elevation of his PSA on March 25, 2019 it was 44. On January 20, 2019 it was 29. It has been recommended that he pursue treatment with Zytiga/prednisone and continue the every 3-month dose of Zoladex and denosumab. Persistent leukopenia, bone marrow done on July 07, 2019 showed no evidence of myelodysplasia or any other marrow abnormality, could be due to treatment with radioactive iodine follow-up bone scan done on September 06, 2020 shows no new areas of uptake, multiple areas of radionuclide uptake unchanged compared to previous study Plan: Discussed with patient regarding his labs white blood count 3.1 hemoglobin 13 hematocrit 40.1 platelets 141,000 PSA 6.19 compared to 7.44 previously and follow-up bone scan done on September 06, 2020 shows no new areas of uptake, multiple areas of radionuclide uptake unchanged compared to previous study Clinically, patient is doing well with no new signs symptom suggestive of disease progression, his PSA continue to improve while on 3 monthly Zoladex and daily abiraterone/prednisone and monthly Xgeva his follow-up bone scan shows no new bone lesions but persistent multiple areas of radionuclide uptake but unchanged when compared with previous study. Overall patient is feeling well with excellent palliation, his chronic back pain is under control with current pain medication, at this point, will continue with 3 monthly Zoladex and daily abiraterone and prednisone as his PSA continue to improve and bone scan shows no new lesions and will also change his Xgeva to every 3 months, patient return to clinic in 1 month for his 3 monthly dose of Zoladex and Xgeva while continue with daily abiraterone/prednisone and As far as pancytopenia is concerned, his anemia and thrombocytopenia has resolved except fluctuating mild leukopenia with adequate neutrophils, will continue to monitor he will return to clinic in 1 month with CBC and PSA and for 3 monthly dose of Xgeva and Zoladex. Signed By: Daniel Monahan M.D. <<Signature on File>>
== END 2020-09-21 08:17 | disposition home or self-care (01) ==
PROVIDERS: PCP Family Medicine; Visit Provider Internal Medicine Hematology & Oncology
DX: C61 Malignant neoplasm of prostate (principal); C79.51 Secondary malignant neoplasm of bone; C77.4 Secondary and unspecified malignant neoplasm of inguinal and lower limb lymph nodes; R97.20 Elevated prostate specific antigen [PSA]; Z79.52 Long term (current) use of systemic steroids; Z79.899 Other long term (current) drug therapy; Z92.21 Personal history of antineoplastic chemotherapy
CPT/HCPCS: 99214

== ENCOUNTER 2020-10-24 13:14 | Outpatient (CLI) | payer MEDICARE, MEDICAID, SELFPAY ==
[2020-10-24] MEDS: lidocaine 1% INJ 20 mL INJECTION (15:50)
[2020-10-24] MEDS: goserelin acetate 10.8 mg Implant SUBCUT (15:50)
[2020-10-24] MEDS: denosumab 120 mg SDV SUBCUT (15:57)
--- NOTE | 2020-10-24 17:03 | ONC FU_ITS ---
Dr. Monahan follow up note Patient: Charlie Jacobs Unit #: [id number]: 1945 Dicatated By: Daniel Monahan M.D.Date of Visit:Oct 24, 2020 Onc Med Follow-up/Prog Note History of Present Illness: Mr. Jacobs is a 75-year-old gentleman with history of prostate cancer initially diagnosed in December 2006. At that time, his PSA was 7.1 and left sided nodule biopsies showed 6 out of 12 cores positive for 3+3/3+4 COMPENSATION AND BENEFITS ADMINISTRATOR with 20-60% involvement. He received external beam radiation therapy which he completed in March 2007. Follow-up PSA level showed good response but start increasing and peak prior to initiation of hormonal therapy was 6.1, patient underwent rebiopsy on 09/14/2009 which showed suspicious pathology but not diagnostic. Mr Jacobs was started on LHRH agonist in December 2009 with 2 weeks of Casodex. He had excellent response. PSA was undetectable till January 2012 thereafter slow rise e.g. 0.27 on 08/05/2012 and 2 in May 2013, 7 in November 2013 and 8.4 in March 2015. Bicalutamide was added. In September 2015 and later stopped after increasing PSA again. In April 2017 bilateral scrotal orchiectomy was done. But PSA continued to rise in January 2018 was around 19 and in April 2018,gone up to 39.58. At that time, he started on Casodex 50 mg by mouth daily and CT scan of abdomen pelvis was done on 04/25/2018 which showed no pelvic lymphadenopathy but nonspecific multifocal osseous sclerotic foci; descending sigmoid colon diverticulosis with the descending sigmoid colon junction short segment diverticulitis patient was treated with antibiotics. Zoladex 10.8 mg was started on 06/01/2018. In the meantime, Mr Jacobs developed a mass in the right side of his neck and further investigation led to the diagnosis of thyroid cancer. He underwent thyroidectomy with lymph node dissection- as per patient, cancer was involving lymph nodes. s/p radioactive iodine treatment in early June in [facility]. Mr. Jacobs was seen in the emergency room on 09/07/2018 for low back pain. He apparently had been having back pain for 2 weeks. It was described as intermittent dull and sharp pain sometimes radiating to the left hip. It has gotten progressively worse. The pain medication was only partly relieving it. He did have a CT of the lumbar spine on 09/07/2018. It showed progressive sclerotic metastatic disease along the posterior margin of the right L1 vertebral body, the superior endplates of L3 and L4, left L3 pedestal, sclerotic focus involving the right anterior aspect of the L5 body and sclerotic focus along the lateral margin of the right iliac bone. He was referred to Dr. Corrla for consideration of palliative radiation therapy. Dr. Corral did see him the same day on 09/07/2018 and did recommend palliative radiation to the lower back to control the metastatic disease and relieve pain. He was also started on Decadron 4 mg every 6 hours for 7 days in the emergency room on 09/07/2018. Mr Jacobs received radiation therapy to the spine He received 3000 cGy total dose to the SPINE GTV30 starting 09/13/2018 and ending 10/01/2018. He then received treatment to T10 spine, ref ID: [id number] Spine to a total dose of 3000 cGy starting 02/03/2019 and ending on 02/17/2019. He has had an excellent response to the radiation with his back pain resolved. He has been on denosumab since June 10, 2018 per our chart. He continues with Zoladex with his last dose being given on August 30, 2019. He also received denosumab at that time as well. He had significant elevation of his PSA on March 25, 2019 it was 44. On January 20, 2019 it was 29. It was recommended that he pursue treatment with Zytiga/prednisone and continue the every 3-month dose of Zoladex and monthly denosumab. As per patient, he went to emergency room with hypertension and abdominal discomfort. He underwent a CT scan of abdomen on the 04/09/2019 which showed nonspecific bibasilar groundglass opacity consistent with atelectasis edema or pneumonia. Unchanged size of sclerotic bone lesions. Avascular necrosis of right femoral head. Diverticulosis without diverticulitis. No hydronephrosis. His blood pressure was within normal range and pulse was between 90 and 100 and as per patient and his EKG did not show any abnormality. Patient was treated IV fluid and discharge home on oral antibiotic Flagyl for presumed diagnosis of diverticulitis, was referred to Dr. Fermin for GI evaluation, as per patient now colonoscopy is under consideration. His labs ER on 04/09/2019 shows white blood count 2.6 and globin 12.4 hematocrit 37 platelets 130,000 CMP within normal limits The zytiga /prednisone was discontinued by Mr Jacobs on 04/11/2019 because of diarrhea and hypertension. It was restarted on 05/26/2019. CT scan of thoracic lumbar spine done on June 27, 2019 showed no changes in thoracic spine. shows arthropathy and lumbar spine show slight progressed blastic lesion in L1, 8.2 mm but severe central canal stenosis in L3-4, and L4-5 and advanced arthropathy. tolerating Zytiga. Prednisone, Zoladex and Xgeva. chronic back pain for which he has seen orthopedics and now back surgery under consideration. But patient decided not to proceed with the surgery Follow-up CT scan of abdomen pelvis done on August 21, 2020 shows no metastatic disease within the chest abdomen or pelvis, stable left renal cysts, distal colon diverticulosis without diverticulitis. Several of the sclerotic foci have increased in size since March 2019 in June 2019. Specifically right eighth rib, L1 and L2 vertebral body. Progression of bony mets should be considered, bone scan recommended f/u Bone scan done on September 06, 2020 shows no new area of uptake identified but multiple areas of radionuclide uptake unchanged when compared with previous study Came for follow-up, denies any specific complaint except pain/discomfort in the left upper chest and shoulder, as per patient about 2 weeks ago he had Covid booster dose which caused a lump in his left shoulder after that he developed pain between neck and left shoulder area but is improving with heating pad but no overlying skin changes. Patient denies any other type of trauma to his left shoulder or arm, denies any left arm weakness or numbness, denies any new bony pain but persistent lower back pain which is under control with current pain medication, denies any dysuria or hematuria denies any diarrhea or constipation denies any jaundice, tolerating Zoladex/abiraterone/prednisone/Xgeva well otherwise as per patient, he will start his next cycle of abiraterone/prednisone tomorrow morning Medications: Albuterol Sulfate 1 puff(s) (of (2.5 mg/3ml) 0.083%) Nebulization solution Inhalation four times a day, Alfuzosin HCl ER 1 Tablet (of 10 mg) Tablet SR 24 HR Oral at bedtime, Aspirin 1 Tablet (of 81 mg) Oral daily, Atorvastatin Calcium 1 Tablet (of 80 mg) Oral daily, Belsomra 1 Tablet (of 15 mg) Oral at bedtime PRN, Cetirizine HCl 1 Tablet (of 10 mg) Oral daily, Cyclobenzaprine HCl 0.5 - 1 Tablet (of 10 mg) Oral t.i.d. PRN, Esomeprazole Magnesium 1 Capsule (of 40 mg) Capsule Delayed Release Oral daily, HYDROcodone-Acetaminophen 1 Tablet (of 10-325 mg) Oral four times a day PRN, Ipratropium-Albuterol 1 puff(s) (of 0.5-2.5 (3) mg/3ml) Solution Inhalation q 4 hours PRN, Januvia 1 Tablet (of 25 mg) Oral daily, Levothyroxine Sodium 1 Tablet (of 175 mcg) Oral daily, Lisinopril 0.5 Tablet (of 20 mg) Oral daily, Metoprolol Succinate ER 1 Tablet (of 25 mg) Tablet SR 24 HR Oral daily, Mirtazapine 1 Tablet (of 7.5 mg) Oral daily, Montelukast Sodium 1 Tablet (of 10 mg) Oral daily, Nitroglycerin 1 Tablet (of 0.4 mg) Tablet, sublingual Sublingual PRN, ProAir HFA 1 puff(s) (of 108 (90 base) mcg/act) Aerosol, solution Inhalation q 4 hours PRN, Probiotic Digestive Support 1 Capsule Oral daily, Trelegy Ellipta 1 Puff(s) (of 100-62.5-25 mcg/inh) Aerosol Powder, Breath Activated Inhalation daily, Xgeva 1 Subcutaneous q 30 days, Zetia 1 Tablet (of 10 mg) Oral daily, Zoladex (10.8 mg) Subcutaneous q 12 weeks Allergies: Vancomycin HCl Review of Systems: Review of Systems is not available for this patient. Vital Signs: Performed on Oct 24, 2020 15:20 Height - 75.00 in Weight - 238.8 lbs (LOW) BSA - 2.37 sq.m BMI - 29.85 Temperature - 97.4 F (LOW) Pulse - 85 /min Respiration - 18 /min BP - 128/73 mm(hg) O2 Sat - 92 % (LOW) Pain - 6 Performance Status: 0 - Fully active, able to carry on all predisease activities without restrictions. (ECOG) Physical Examination: ENMT - No mouth sores, no thrush, no jaundice, Respiratory - Lungs are clear to auscultation, Cardiovascular - Regular rate and rhythm of heart, Abdomen - Soft, bowel sounds present, Extremities - No visible edema. Lab/Imaging: Test performed on May 23, 2020 11:20 WBC 3.9 10 3/uL RBC 4.08 10 6/uL HGB 12.9 g/dL HCT 38.9 % MCV 95.3 fL MCH 31.6 pg MCHC 33.2 g/dL RDW 12.7 % Platelet Count 128 10 3/cmm MPV 10.9 fL Neutrophils 2.90 10 3/uL Lymphocytes 0.5 10 3/uL Monocytes 0.4 10 3/uL Eosinophils 0.1 10 3/uL Basophils 0.0 10 3/uL Neutrophil % 75.3 % Lymphocyte % 11.7 % Monocyte % 10.6 % Eosinophil % 1.3 % Basophils % 0.3 % NRBC % 0 % PSA 8.990 ng/mL Impression: Biochemical recurrence, CT scan of abdomen pelvis done on 04/25/2018 showed sclerotic lesions in the pelvic bones no pelvic lymphadenopathy or abnormal mass. History of prostrate cancer initially diagnosed in 2006 at that time his PSA was 7.1 and left-sided nodule biopsy showed 6 out of 12 cores positive for 3+3/3+ for COMPENSATION AND BENEFITS ADMINISTRATOR with 20-60% involvement status post external beam radiation therapy completed in March 2007 Follow-up PSA showed excellent response till 2009 when PSA started going up underwent rebiopsy of prostate on 09/14/2009 which was nondiagnostic but suspicious for malignancy. Started on LHRH agonist in December 2009 2 weeks of Casodex, excellent response PSA become undetectable still January 2012 with slow rise thereafter e.g. 0.27 on 08/05/2012, 2 in May 2013, 7 in November 2013, 8.4 in March 2015 bicalutamide was admitted in September 2015 later stopped after PSA continued to go up, subsequently underwent bilateral scrotal orchiectomy in April 2017 PSA continued to rise around 20 on 01/28/2018 for the gone up to 39.58 in April 2018, at that time Casodex 50 mg by mouth was started and patient was referred to medical oncology clinic Zoladex 10.8 mg every 3 months started on 06/01/2018 Bone scan done on 06/01/2018 showed L3 and L4 vertebral body increased activity corresponding to the prior CT sclerosis. Left T10 and T7 lateral vertebral body or facet increase activity you from prior exam done in December 2006,. New right lateral posterior ninth rib focus of increased activity. did see Mr. Jacobs in August 2018 at which time Mr. Jacobs was having moderate to severe distress with progressive lower back pain. He was sent to the emergency room for evaluation for possible metastatic disease or prolapse/collapsed vertebra. His PSA at that time was 34.24 and his testosterone was 19.9. New right sixth and eighth anterior lateral rib focus of increased activity. Recently diagnosed with thyroid cancer status post thyroidectomy with lymph node dissection now radioactive iodine therapy was under consideration as of June 2018. Mr. Jacobs was seen in the emergency room on 09/07/2018 for low back pain. He apparently been having back pain for 2 weeks. It was described as intermittent dull and sharp pain sometimes radiating to the left hip. It has gotten progressively worse. The pain medication was only partly relieving it. He did have a CT of the lumbar spine on 09/07/2018. It showed progressive sclerotic metastatic disease along the posterior margin of the right L1 vertebral body, the superior endplates of L3 and L4, left L3 pedestal, sclerotic focus involving the right anterior aspect of the L5 body and sclerotic focus along the lateral margin of the right iliac bone. He was referred to Dr. Corral for consideration of palliative radiation therapy. Dr. Corral did see him the same day on 09/07/2018. And did recommend palliative radiation to the lower back to control the metastatic disease in relieve pain. He was also started on Decadron 4 mg every 6 hours for 7 days in the emergency room on 09/07/2018. Mr Jacobs received radiation therapy to the spine He received 3000 cGy total dose to the SPINE GTV30 starting 09/13/2018 and ending 10/01/2018. He then received treatment to T10 spine, ref ID: [id number] Spine to a total dose of 3000 cGy starting 02/03/2019 and ending on 02/17/2019. He has had an excellent response to the radiation with his back pain resolved. He has been on denosumab since June 10, 2018 per our chart. He continues with Zoladex with his last dose being given on March 25, 2019. He also received denosumab at that time as well. He has had significant elevation of his PSA on March 25, 2019 it was 44. On January 20, 2019 it was 29. It has been recommended that he pursue treatment with Zytiga/prednisone and continue the every 3-month dose of Zoladex and denosumab. Persistent leukopenia, bone marrow done on July 07, 2019 showed no evidence of myelodysplasia or any other marrow abnormality, could be due to treatment with radioactive iodine follow-up bone scan done on September 06, 2020 shows no new areas of uptake, multiple areas of radionuclide uptake unchanged compared to previous study Plan: Discussed with patient regarding his labs PSA is 8.58 compared to 6.19 on August 27, 2020 Clinically, patient doing well with no new signs symptoms testing of disease progression, will proceed with his 3 monthly dose of Zoladex/Xgeva today and then he will start his abiraterone/prednisone tomorrow morning and then return to clinic in 1 month with PSA and CBC as patient has history of leukopenia. If PSA continues to go up, will consider choline CT PET scan in the meantime we will continue 3 monthly Zoladex/Xgeva along with abiraterone/prednisone. Signed By: Daniel Monahan M.D. <<Signature on File>>
== END 2020-10-24 13:15 | disposition home or self-care (01) ==
PROVIDERS: PCP Family Medicine; Visit Provider Internal Medicine Hematology & Oncology
DX: C79.51 Secondary malignant neoplasm of bone (principal); C61 Malignant neoplasm of prostate; Z79.818 Long term (current) use of other agents affecting estrogen receptors and estrogen levels; Z79.899 Other long term (current) drug therapy; Z79.52 Long term (current) use of systemic steroids
CPT/HCPCS: 36415; 84153; 96372; 96402; 99215; J0897; J9202

== ENCOUNTER 2020-11-21 08:49 | Outpatient (CLI) | payer MEDICARE, MEDICAID, SELFPAY ==
[2020-11-21 09:28] LABS: Basophils % 0.9 %; Eosinophils % 0.9 %; Hematocrit 41.5 % (42.0-52.0); Hemoglobin 13.3 g/dL (11.7-16.6); Lymphocytes # 0.6 10^3/uL (0.8-4.8); Lymphocytes % 17.7 %; Mean Corpuscular Hemoglobin 31.4 pg (28.0-34.0); Mean Corpuscular Volume 97.9 fl (80-94); Mean Platelet Volume 11.6 fL (7.4-10.4); Monocytes # 0.4 10^3/uL (0.2-0.9); Monocytes % 12.7 %; Neutrophils # 2.27 10^3/uL (1.8-7.7); Neutrophils % 66.9 %; Nucleated Red Blood Cells % 0 %; Platelet Count 143 10^3/cmm (130-400); Red Blood Count 4.24 10^6/uL (4.1-5.3); Red Cell Distribution Width 13.2 % (12.1-15.1); White Blood Count 3.4 10^3/uL (4.0-10.0)
--- NOTE | 2020-11-21 17:55 | ONC FU_ITS ---
Dr. Monahan follow up note Patient: Charlie Jacobs Unit #: [id number]: 1945 Dicatated By: Daniel Monahan M.D.Date of Visit:Nov 21, 2020 Onc Med Follow-up/Prog Note History of Present Illness: Mr. Jacobs is a 75-year-old gentleman with history of prostate cancer initially diagnosed in December 2006. At that time, his PSA was 7.1 and left sided nodule biopsies showed 6 out of 12 cores positive for 3+3/3+4 [employer] with 20-60% involvement. He received external beam radiation therapy which he completed in March 2007. Follow-up PSA level showed good response but start increasing and peak prior to initiation of hormonal therapy was 6.1, patient underwent rebiopsy on 09/14/2009 which showed suspicious pathology but not diagnostic. Mr Jacobs was started on LHRH agonist in December 2009 with 2 weeks of Casodex. He had excellent response. PSA was undetectable till January 2012 thereafter slow rise e.g. 0.27 on 08/05/2012 and 2 in May 2013, 7 in November 2013 and 8.4 in March 2015. Bicalutamide was added. In September 2015 and later stopped after increasing PSA again. In April 2017 bilateral scrotal orchiectomy was done. But PSA continued to rise in January 2018 was around 19 and in April 2018,gone up to 39.58. At that time, he started on Casodex 50 mg by mouth daily and CT scan of abdomen pelvis was done on 04/25/2018 which showed no pelvic lymphadenopathy but nonspecific multifocal osseous sclerotic foci; descending sigmoid colon diverticulosis with the descending sigmoid colon junction short segment diverticulitis patient was treated with antibiotics. Zoladex 10.8 mg was started on 06/01/2018. In the meantime, Mr Jacobs developed a mass in the right side of his neck and further investigation led to the diagnosis of thyroid cancer. He underwent thyroidectomy with lymph node dissection- as per patient, cancer was involving lymph nodes. s/p radioactive iodine treatment in early June in [facility]. Mr. Jacobs was seen in the emergency room on 09/07/2018 for low back pain. He apparently had been having back pain for 2 weeks. It was described as intermittent dull and sharp pain sometimes radiating to the left hip. It has gotten progressively worse. The pain medication was only partly relieving it. He did have a CT of the lumbar spine on 09/07/2018. It showed progressive sclerotic metastatic disease along the posterior margin of the right L1 vertebral body, the superior endplates of L3 and L4, left L3 pedestal, sclerotic focus involving the right anterior aspect of the L5 body and sclerotic focus along the lateral margin of the right iliac bone. He was referred to Dr. Corral for consideration of palliative radiation therapy. Dr. Corral did see him the same day on 09/07/2018 and did recommend palliative radiation to the lower back to control the metastatic disease and relieve pain. He was also started on Decadron 4 mg every 6 hours for 7 days in the emergency room on 09/07/2018. Mr Jacobs received radiation therapy to the spine He received 3000 cGy total dose to the SPINE GTV30 starting 09/13/2018 and ending 10/01/2018. He then received treatment to T10 spine, ref ID: [id number] Spine to a total dose of 3000 cGy starting 02/03/2019 and ending on 02/17/2019. He has had an excellent response to the radiation with his back pain resolved. He has been on denosumab since June 10, 2018 per our chart. He continues with Zoladex with his last dose being given on August 30, 2019. He also received denosumab at that time as well. He had significant elevation of his PSA on March 25, 2019 it was 44. On January 20, 2019 it was 29. It was recommended that he pursue treatment with Zytiga/prednisone and continue the every 3-month dose of Zoladex and monthly denosumab. As per patient, he went to emergency room with hypertension and abdominal discomfort. He underwent a CT scan of abdomen on the 04/09/2019 which showed nonspecific bibasilar groundglass opacity consistent with atelectasis edema or pneumonia. Unchanged size of sclerotic bone lesions. Avascular necrosis of right femoral head. Diverticulosis without diverticulitis. No hydronephrosis. His blood pressure was within normal range and pulse was between 90 and 100 and as per patient and his EKG did not show any abnormality. Patient was treated IV fluid and discharge home on oral antibiotic Flagyl for presumed diagnosis of diverticulitis, was referred to Dr. Fermin for GI evaluation, as per patient now colonoscopy is under consideration. His labs ER on 04/09/2019 shows white blood count 2.6 and globin 12.4 hematocrit 37 platelets 130,000 CMP within normal limits The zytiga /prednisone was discontinued by Mr Jacobs on 04/11/2019 because of diarrhea and hypertension. It was restarted on 05/26/2019. CT scan of thoracic lumbar spine done on June 27, 2019 showed no changes in thoracic spine. shows arthropathy and lumbar spine show slight progressed blastic lesion in L1, 8.2 mm but severe central canal stenosis in L3-4, and L4-5 and advanced arthropathy. tolerating Zytiga. Prednisone, Zoladex and Xgeva. chronic back pain for which he has seen orthopedics and now back surgery under consideration. But patient decided not to proceed with the surgery Follow-up CT scan of abdomen pelvis done on August 21, 2020 shows no metastatic disease within the chest abdomen or pelvis, stable left renal cysts, distal colon diverticulosis without diverticulitis. Several of the sclerotic foci have increased in size since March 2019 in June 2019. Specifically right eighth rib, L1 and L2 vertebral body. Progression of bony mets should be considered, bone scan recommended f/u Bone scan done on September 06, 2020 shows no new area of uptake identified but multiple areas of radionuclide uptake unchanged when compared with previous study tolerating Zoladex/abiraterone/prednisone/Xgeva well otherwise as per patient, Came for follow-up, denies any specific complaint except pain in the lower back/radiating to right leg, for the last 2 weeks, denies any direct trauma but patient said he has been bow hunting, may have stretched his back too far. Denies any urine or stool incontinence denies any leg swelling but off and on numbness and shocklike feeling. No dysuria or hematuria, no headaches blurred vision double, no hemoptysis or hematemesis, no fever chills. Occasional hot flashes otherwise tolerating Zoladex/abiraterone/prednisone/Xgeva well Medications: Albuterol Sulfate 1 puff(s) (of (2.5 mg/3ml) 0.083%) Nebulization solution Inhalation four times a day, Alfuzosin HCl ER 1 Tablet (of 10 mg) Tablet SR 24 HR Oral at bedtime, Aspirin 1 Tablet (of 81 mg) Oral daily, Atorvastatin Calcium 1 Tablet (of 80 mg) Oral daily, Belsomra 1 Tablet (of 15 mg) Oral at bedtime PRN, Cetirizine HCl 1 Tablet (of 10 mg) Oral daily, Cyclobenzaprine HCl 0.5 - 1 Tablet (of 10 mg) Oral t.i.d. PRN, Esomeprazole Magnesium 1 Capsule (of 40 mg) Capsule Delayed Release Oral daily, HYDROcodone-Acetaminophen 1 Tablet (of 10-325 mg) Oral four times a day PRN, Ipratropium-Albuterol 1 puff(s) (of 0.5-2.5 (3) mg/3ml) Solution Inhalation q 4 hours PRN, Januvia 1 Tablet (of 25 mg) Oral daily, Levothyroxine Sodium 1 Tablet (of 175 mcg) Oral daily, Lisinopril 0.5 Tablet (of 20 mg) Oral daily, Metoprolol Succinate ER 1 Tablet (of 25 mg) Tablet SR 24 HR Oral daily, Mirtazapine 1 Tablet (of 7.5 mg) Oral daily, Montelukast Sodium 1 Tablet (of 10 mg) Oral daily, Nitroglycerin 1 Tablet (of 0.4 mg) Tablet, sublingual Sublingual PRN, ProAir HFA 1 puff(s) (of 108 (90 base) mcg/act) Aerosol, solution Inhalation q 4 hours PRN, Probiotic Digestive Support 1 Capsule Oral daily, Trelegy Ellipta 1 Puff(s) (of 100-62.5-25 mcg/inh) Aerosol Powder, Breath Activated Inhalation daily, Xgeva 1 Subcutaneous q 30 days, Zetia 1 Tablet (of 10 mg) Oral daily, Zoladex (10.8 mg) Subcutaneous q 12 weeks Allergies: Vancomycin HCl Review of Systems: Review of Systems is not available for this patient. Vital Signs: Performed on Nov 21, 2020 10:54 Height - 75.00 in Weight - 240.8 lbs (HIGH) BSA - 2.37 sq.m BMI - 30.10 (HIGH) Temperature - 98.2 F (LOW) Pulse - 84 /min Respiration - 18 /min BP - 158/82 mm(hg) (HIGH) O2 Sat - 98 % Pain - 0 Fatigue - 9 Performance Status: 1 - No physically strenuous activity, but ambulatory and able to carry out light or sedentary work (e.g. office work, light house work). (ECOG) Physical Examination: ENMT - No mouth sores, no thrush, no jaundice, Respiratory - Lungs are clear to auscultation, Cardiovascular - Regular rate and rhythm of heart, Abdomen - Soft, bowel sounds present, Extremities - No visible edema, no focal tenderness in lower back, no leg swelling. Lab/Imaging: Most recent lab results are not available for this patient. Impression: Biochemical recurrence, CT scan of abdomen pelvis done on 04/25/2018 showed sclerotic lesions in the pelvic bones no pelvic lymphadenopathy or abnormal mass. History of prostrate cancer initially diagnosed in 2006 at that time his PSA was 7.1 and left-sided nodule biopsy showed 6 out of 12 cores positive for 3+3/3+ for [employer] with 20-60% involvement status post external beam radiation therapy completed in March 2007 Follow-up PSA showed excellent response till 2009 when PSA started going up underwent rebiopsy of prostate on 09/14/2009 which was nondiagnostic but suspicious for malignancy. Started on LHRH agonist in December 2009 2 weeks of Casodex, excellent response PSA become undetectable still January 2012 with slow rise thereafter e.g. 0.27 on 08/05/2012, 2 in May 2013, 7 in November 2013, 8.4 in March 2015 bicalutamide was admitted in September 2015 later stopped after PSA continued to go up, subsequently underwent bilateral scrotal orchiectomy in April 2017 PSA continued to rise around 20 on 01/28/2018 for the gone up to 39.58 in April 2018, at that time Casodex 50 mg by mouth was started and patient was referred to medical oncology clinic Zoladex 10.8 mg every 3 months started on 06/01/2018 Bone scan done on 06/01/2018 showed L3 and L4 vertebral body increased activity corresponding to the prior CT sclerosis. Left T10 and T7 lateral vertebral body or facet increase activity you from prior exam done in December 2006,. New right lateral posterior ninth rib focus of increased activity. did see Mr. Jacobs in August 2018 at which time Mr. Jacobs was having moderate to severe distress with progressive lower back pain. He was sent to the emergency room for evaluation for possible metastatic disease or prolapse/collapsed vertebra. His PSA at that time was 34.24 and his testosterone was 19.9. New right sixth and eighth anterior lateral rib focus of increased activity. Recently diagnosed with thyroid cancer status post thyroidectomy with lymph node dissection now radioactive iodine therapy was under consideration as of June 2018. Mr. Jacobs was seen in the emergency room on 09/07/2018 for low back pain. He apparently been having back pain for 2 weeks. It was described as intermittent dull and sharp pain sometimes radiating to the left hip. It has gotten progressively worse. The pain medication was only partly relieving it. He did have a CT of the lumbar spine on 09/07/2018. It showed progressive sclerotic metastatic disease along the posterior margin of the right L1 vertebral body, the superior endplates of L3 and L4, left L3 pedestal, sclerotic focus involving the right anterior aspect of the L5 body and sclerotic focus along the lateral margin of the right iliac bone. He was referred to Dr. Corral for consideration of palliative radiation therapy. Dr. Corral did see him the same day on 09/07/2018. And did recommend palliative radiation to the lower back to control the metastatic disease in relieve pain. He was also started on Decadron 4 mg every 6 hours for 7 days in the emergency room on 09/07/2018. Mr Jacobs received radiation therapy to the spine He received 3000 cGy total dose to the SPINE GTV30 starting 09/13/2018 and ending 10/01/2018. He then received treatment to T10 spine, ref ID: T10 Spine to a total dose of 3000 cGy starting 02/03/2019 and ending on 02/17/2019. He has had an excellent response to the radiation with his back pain resolved. He has been on denosumab since June 10, 2018 per our chart. He continues with Zoladex with his last dose being given on March 25, 2019. He also received denosumab at that time as well. He has had significant elevation of his PSA on March 25, 2019 it was 44. On January 20, 2019 it was 29. It has been recommended that he pursue treatment with Zytiga/prednisone and continue the every 3-month dose of Zoladex and denosumab. Persistent leukopenia, bone marrow done on July 07, 2019 showed no evidence of myelodysplasia or any other marrow abnormality, could be due to treatment with radioactive iodine follow-up bone scan done on September 06, 2020 shows no new areas of uptake, multiple areas of radionuclide uptake unchanged compared to previous study Plan: Discussed with patient regarding his labs white blood count 3.4 hemoglobin 13.3 hematocrit 41.5 platelets 143,000, PSA 7.66 compared to 8.58, last month Clinically, patient is in mild to moderate distress due to off and on lower back pain/radiating to the right leg, etiology unclear could be worsening of metastatic disease in the lower spine or musculoskeletal like disc prolapse or radiculopathy, at this point, will consider MRI scan of the lumbar spine and right hip, then plan accordingly Patient was advised in case there is a worsening of pain, need to go to hospital immediately for evaluation As far as prostate cancer is concerned, his follow-up PSA shows improvement so we will continue with 3 monthly Zoladex/Xgeva and along with abiraterone/prednisone, patient was advised to monitor blood sugar, if needed we may consider sliding scale. Patient will return to clinic after MRI scan of the lumbar sacral/right hip Signed By: Daniel Monahan M.D. <<Signature on File>>
== END 2020-11-21 08:50 | disposition home or self-care (01) ==
PROVIDERS: PCP Family Medicine; Visit Provider Internal Medicine Hematology & Oncology
DX: C61 Malignant neoplasm of prostate (principal); C79.51 Secondary malignant neoplasm of bone; C73 Malignant neoplasm of thyroid gland; R97.20 Elevated prostate specific antigen [PSA]; E89.0 Postprocedural hypothyroidism; Z79.818 Long term (current) use of other agents affecting estrogen receptors and estrogen levels; Z92.21 Personal history of antineoplastic chemotherapy
CPT/HCPCS: 36415; 84153; 85025; 99214

== ENCOUNTER 2020-12-06 07:26 | Outpatient (CLI) | payer MEDICARE, MEDICAID, SELFPAY ==
--- NOTE | 2020-12-06 07:40 | MR_ITS ---
WS: [id number] MRI LUMBAR SPINE WITH AND WITHOUT CONTRAST HISTORY: BACK PAIN RADIATING TO RT HIP;HX OF PROSTATE CANCER COMPARISON: 01/25/2019, 08/21/2020 and 09/06/2020 TECHNIQUE: Sagittal and axial multisequence imaging is submitted. Sagittal and axial T1 fat sat seque nces post-MultiHance 20 cc IV. Quality of this examination is degraded by motion artifact. Patient was unable to remain still for th is examination. Seen on the skeletal survey of the spine are multiple signal abnormalities within the vertebral stanton s of the thoracic spine. This area was not included on the postcontrast imaging but this signal abnor mality with ENT 8 through T11 may be from treated metastatic prostate cancer. There are additional le sions in T1 and T2 which cannot be further evaluated. Posterior lumbar alignment is normal. No increased marrow signal on the FLAIR sequences. There is also no enhancement within the vertebral bodies. There are Schmorl's nodes defects at L3 and L4. There is increased signal throughout the lowe r thoracic and lumbar vertebral bodies on the T1 sequences suggesting this may be treated metastatic disease. Conus terminates normally at L1-2 disc level. L1-L2: Bilateral facet arthritis, RIGHT greater than LEFT L2-L3: Moderate annular disc bulging with moderate ligamentum flavum disease and facet arthritis. Mod erate central, bilateral subarticular recess and mild foraminal stenosis. Mixed signal within the LEF T L3 pedicle does demonstrate mild enhancement. This lesion was also present on the study from 2018 without interval change. L3-L4: Diffuse annular disc bulging with severe ligamentum flavum disease and facet arthritis. Modera te central, bilateral subarticular recess and mild foraminal stenosis. L4-L5: Diffuse annular disc bulging and osteophytic ridging. Severe facet disease and ligamentum flav um disease. Severe central and bilateral subarticular recess stenosis with moderate foraminal narrowi ng. L5-S1: Central disc protrusion with ligamentum flavum and facet arthritis. Mild encroachment and narr owing of the thecal sac. Mild foraminal narrowing. RIGHT ischium bone lesion is low signal on the T2 sequences and was also present on the prior study w ith no enhancement. MR/MR lumbar spine wo/w con [id number] IMPRESSION: Quality of the examination is limited by motion artifact. 1. There are extensive bone lesions in the thoracic and lumbar spine but none of these enhance or have changed since 01/25/2019. I cannot confirm active meta static disease. Some of these areas may be treated disease and some are Schmorl 's nodes. 2. Severe central, bilateral subarticular recess and moderate foraminal stenos is at L4-5 with mild progression since the prior study. 3. Moderate central, bilateral subarticular recess and mild foraminal stenosis at L2-3 and L3-4.
[2020-12-06] MEDS: gadobenate dimeglumine 20 mL vial IV (09:06)
== END 2020-12-06 07:27 | disposition home or self-care (01) ==
LOC: RADSHAW 07:27
PROVIDERS: PCP Family Medicine; Visit Provider Internal Medicine Hematology & Oncology
DX: M54.50 Low back pain, unspecified (principal); M54.12 Radiculopathy, cervical region; Z85.46 Personal history of malignant neoplasm of prostate; M48.061 Spinal stenosis, lumbar region without neurogenic claudication
CPT/HCPCS: 72158; A9577

== ENCOUNTER → 2020-12-07 08:43 | Outpatient (BNVA) | payer MEDICARE, MEDICAID, SELFPAY | PROVIDERS: PCP Family Medicine; Visit Provider Family Medicine | DX: E78.5 Hyperlipidemia, unspecified (principal); E11.9 Type 2 diabetes mellitus without complications | CPT/HCPCS: 80053; 80061; 83036 ==

== ENCOUNTER 2020-12-10 09:02 | Outpatient (CLI) | payer MEDICARE, MEDICAID, SELFPAY ==
--- NOTE | 2020-12-10 09:09 | MR_ITS ---
WS: [id number] INDICATION: Right hip pain for 4 months prostate cancer TECHNIQUE: MR of the right hip without and with gadolinium enhancement. Axial T1, T2, coronal T1, STI R, sagittal T1, T2, post gadolinium imaging was obtained FINDINGS: Serpiginous T1 and T2 signal abnormality with peripheral hemosiderin involving the articula r surface right femoral head compatible with avascular necrosis. Area of avascular necrosis measures 2.7 x 1.2 cm AP by transverse. Surrounding edema in the femoral head is moderate. Left hip is normal in appearance with moderate degenerative arthritis with joint space narrowing. No edema in the left femoral head. Proximal femoral shafts appear normal. Sclerotic appearing lesions in the lower lumbar spine with a few lesions in the ileum likely prior treated metastatic disease. N o enhancing lesions. No inguinal lymphadenopathy. Pubic rami appear normal. No acute fractures. Normal visualized rectum a nd partially visualized sigmoid with a few diverticuli. MR/MR hip RT wo/w con [id number] IMPRESSION: 1. Serpiginous T1 and T2 signal abnormality involving the articular surface meade perolateral femoral head compatible with avascular necrosis. Associated moderat e edema in the femoral head. 2. Moderate arthritis left hip with joint space narrowing. No evidence of avas cular necrosis in the left hip. 3. Normal bone marrow signal in the pelvis and sacrum. No sacral insufficiency fractures. 4. No suspicious enhancing lesions. 5. Normal pelvic soft tissues. Urine distended bladder.
[2020-12-10] MEDS: gadobenate dimeglumine 20 mL vial IV (09:52)
== END 2020-12-10 09:03 | disposition home or self-care (01) ==
PROVIDERS: PCP Family Medicine; Visit Provider Internal Medicine Hematology & Oncology
DX: M25.551 Pain in right hip (principal); C61 Malignant neoplasm of prostate; M16.12 Unilateral primary osteoarthritis, left hip; R60.0 Localized edema
CPT/HCPCS: 73723; A9577

== ENCOUNTER 2020-12-12 14:35 | Outpatient (CLI) | payer MEDICARE, MEDICAID, SELFPAY ==
[2020-12-12 15:03] LABS: Basophils % 0.6 %; Eosinophils % 1.1 %; Hemoglobin 13.3 g/dL (11.7-16.6); Lymphocytes # 0.7 10^3/uL (0.8-4.8); Lymphocytes % 20.9 %; Mean Corpuscular HGB Conc 32.4 g/dL (30.0-36.0); Mean Corpuscular Hemoglobin 31.1 pg (28.0-34.0); Mean Platelet Volume 11.4 fL (7.4-10.4); Monocytes # 0.5 10^3/uL (0.2-0.9); Monocytes % 12.9 %; Neutrophils # 2.23 10^3/uL (1.8-7.7); Neutrophils % 63.9 %; Nucleated Red Blood Cells % 0 %; Platelet Count 137 10^3/cmm (130-400); Red Blood Count 4.27 10^6/uL (4.1-5.3); Red Cell Distribution Width 12.9 % (12.1-15.1); White Blood Count 3.5 10^3/uL (4.0-10.0)
== END 2020-12-12 14:36 | disposition home or self-care (01) ==
PROVIDERS: PCP Family Medicine; Visit Provider Internal Medicine Hematology & Oncology
DX: C61 Malignant neoplasm of prostate (principal)
CPT/HCPCS: 36415; 84153; 85025

== ENCOUNTER 2020-12-13 06:30 | Outpatient (CLI) | payer MEDICARE, MEDICAID, SELFPAY ==
--- NOTE | 2020-12-14 12:08 | ONC FU_ITS ---
Dr. Monahan follow up note Patient: Charlie Jacobs Unit #: [id number]: 1945 Dicatated By: Daniel Monahan M.D.Date of Visit:Dec 13, 2020 Onc Med Follow-up/Prog Note History of Present Illness: Mr. Jacobs is a 75-year-old gentleman with history of prostate cancer initially diagnosed in December 2006. At that time, his PSA was 7.1 and left sided nodule biopsies showed 6 out of 12 cores positive for 3+3/3+4 MERCHANDISE MARKER with 20-60% involvement. He received external beam radiation therapy which he completed in March 2007. Follow-up PSA level showed good response but start increasing and peak prior to initiation of hormonal therapy was 6.1, patient underwent rebiopsy on 09/14/2009 which showed suspicious pathology but not diagnostic. Mr Jacobs was started on LHRH agonist in December 2009 with 2 weeks of Casodex. He had excellent response. PSA was undetectable till January 2012 thereafter slow rise e.g. 0.27 on 08/05/2012 and 2 in May 2013, 7 in November 2013 and 8.4 in March 2015. Bicalutamide was added. In September 2015 and later stopped after increasing PSA again. In April 2017 bilateral scrotal orchiectomy was done. But PSA continued to rise in January 2018 was around 19 and in April 2018,gone up to 39.58. At that time, he started on Casodex 50 mg by mouth daily and CT scan of abdomen pelvis was done on 04/25/2018 which showed no pelvic lymphadenopathy but nonspecific multifocal osseous sclerotic foci; descending sigmoid colon diverticulosis with the descending sigmoid colon junction short segment diverticulitis patient was treated with antibiotics. Zoladex 10.8 mg was started on 06/01/2018. In the meantime, Mr Jacobs developed a mass in the right side of his neck and further investigation led to the diagnosis of thyroid cancer. He underwent thyroidectomy with lymph node dissection- as per patient, cancer was involving lymph nodes. s/p radioactive iodine treatment in early June in [facility]. Mr. Jacobs was seen in the emergency room on 09/07/2018 for low back pain. He apparently had been having back pain for 2 weeks. It was described as intermittent dull and sharp pain sometimes radiating to the left hip. It has gotten progressively worse. The pain medication was only partly relieving it. He did have a CT of the lumbar spine on 09/07/2018. It showed progressive sclerotic metastatic disease along the posterior margin of the right L1 vertebral body, the superior endplates of L3 and L4, left L3 pedestal, sclerotic focus involving the right anterior aspect of the L5 body and sclerotic focus along the lateral margin of the right iliac bone. He was referred to Dr. Corral for consideration of palliative radiation therapy. Dr. Corral did see him the same day on 09/07/2018 and did recommend palliative radiation to the lower back to control the metastatic disease and relieve pain. He was also started on Decadron 4 mg every 6 hours for 7 days in the emergency room on 09/07/2018. Mr Jacobs received radiation therapy to the spine He received 3000 cGy total dose to the SPINE GTV30 starting 09/13/2018 and ending 10/01/2018. He then received treatment to T10 spine, ref ID: [id number] Spine to a total dose of 3000 cGy starting 02/03/2019 and ending on 02/17/2019. He has had an excellent response to the radiation with his back pain resolved. He has been on denosumab since June 10, 2018 per our chart. He continues with Zoladex with his last dose being given on August 30, 2019. He also received denosumab at that time as well. He had significant elevation of his PSA on March 25, 2019 it was 44. On January 20, 2019 it was 29. It was recommended that he pursue treatment with Zytiga/prednisone and continue the every 3-month dose of Zoladex and monthly denosumab. As per patient, he went to emergency room with hypertension and abdominal discomfort. He underwent a CT scan of abdomen on the 04/09/2019 which showed nonspecific bibasilar groundglass opacity consistent with atelectasis edema or pneumonia. Unchanged size of sclerotic bone lesions. Avascular necrosis of right femoral head. Diverticulosis without diverticulitis. No hydronephrosis. His blood pressure was within normal range and pulse was between 90 and 100 and as per patient and his EKG did not show any abnormality. Patient was treated IV fluid and discharge home on oral antibiotic Flagyl for presumed diagnosis of diverticulitis, was referred to Dr. Fermin for GI evaluation, as per patient now colonoscopy is under consideration. His labs ER on 04/09/2019 shows white blood count 2.6 and globin 12.4 hematocrit 37 platelets 130,000 CMP within normal limits The zytiga /prednisone was discontinued by Mr Jacobs on 04/11/2019 because of diarrhea and hypertension. It was restarted on 05/26/2019. CT scan of thoracic lumbar spine done on June 27, 2019 showed no changes in thoracic spine. shows arthropathy and lumbar spine show slight progressed blastic lesion in L1, 8.2 mm but severe central canal stenosis in L3-4, and L4-5 and advanced arthropathy. tolerating Zytiga. Prednisone, Zoladex and Xgeva. chronic back pain for which he has seen orthopedics and now back surgery under consideration. But patient decided not to proceed with the surgery Follow-up CT scan of abdomen pelvis done on August 21, 2020 shows no metastatic disease within the chest abdomen or pelvis, stable left renal cysts, distal colon diverticulosis without diverticulitis. Several of the sclerotic foci have increased in size since March 2019 in June 2019. Specifically right eighth rib, L1 and L2 vertebral body. Progression of bony mets should be considered, bone scan recommended f/u Bone scan done on September 06, 2020 shows no new area of uptake identified but multiple areas of radionuclide uptake unchanged when compared with previous study tolerating Zoladex/abiraterone/prednisone/Xgeva well otherwise as per patient, Came for follow-up, complaining of right hip pain and chronic lower back pain under control with current pain medication. No fever chills, no nausea or vomiting, no diarrhea constipation, no hematuria or dysuria patient underwent MRI scan of the spine and hip on December 10, 2020 which showed serpiginous T1 and T2 signal abnormality involving articular surface superior lateral femoral head compatible with avascular necrosis. Associated moderate edema in the femoral head. Moderate arthritis left hip with joint space narrowing. No suspicious enhancing lesion seen in the pelvic bones. MRI spine done on December 06, 2020 showed there are extensive bone lesions in the thoracic and lumbar spine but none of these enhance or have changed since January 25, 2019. Severe central, bilateral subarticular recess and moderate foraminal stenosis at L4-5 with mild progression since prior study. Moderate central, bilateral subarticular recess and mild foraminal stenosis at L2-3 and 3 4 Medications: Albuterol Sulfate 1 puff(s) (of (2.5 mg/3ml) 0.083%) Nebulization solution Inhalation four times a day, Alfuzosin HCl ER 1 Tablet (of 10 mg) Tablet SR 24 HR Oral at bedtime, Aspirin 1 Tablet (of 81 mg) Oral daily, Atorvastatin Calcium 1 Tablet (of 80 mg) Oral daily, Belsomra 1 Tablet (of 15 mg) Oral at bedtime PRN, Cetirizine HCl 1 Tablet (of 10 mg) Oral daily, Cyclobenzaprine HCl 0.5 - 1 Tablet (of 10 mg) Oral t.i.d. PRN, Esomeprazole Magnesium 1 Capsule (of 40 mg) Capsule Delayed Release Oral daily, HYDROcodone-Acetaminophen 1 Tablet (of 10-325 mg) Oral four times a day PRN, Ipratropium-Albuterol 1 puff(s) (of 0.5-2.5 (3) mg/3ml) Solution Inhalation q 4 hours PRN, Januvia 1 Tablet (of 25 mg) Oral daily, Levothyroxine Sodium 1 Tablet (of 175 mcg) Oral daily, Lisinopril 0.5 Tablet (of 20 mg) Oral daily, Metoprolol Succinate ER 1 Tablet (of 25 mg) Tablet SR 24 HR Oral daily, Mirtazapine 1 Tablet (of 7.5 mg) Oral daily, Montelukast Sodium 1 Tablet (of 10 mg) Oral daily, Nitroglycerin 1 Tablet (of 0.4 mg) Tablet, sublingual Sublingual PRN, ProAir HFA 1 puff(s) (of 108 (90 base) mcg/act) Aerosol, solution Inhalation q 4 hours PRN, Probiotic Digestive Support 1 Capsule Oral daily, Trelegy Ellipta 1 Puff(s) (of 100-62.5-25 mcg/inh) Aerosol Powder, Breath Activated Inhalation daily, Xgeva 1 Subcutaneous q 30 days, Zetia 1 Tablet (of 10 mg) Oral daily, Zoladex (10.8 mg) Subcutaneous q 12 weeks Allergies: Vancomycin HCl Review of Systems: Review of Systems is not available for this patient. Vital Signs: Performed on Dec 13, 2020 08:07 Height - 75.00 in Weight - 233 lbs (LOW) BSA - 2.34 sq.m BMI - 29.12 Temperature - 96.2 F (LOW) Pulse - 91 /min Respiration - 18 /min BP - 143/93 mm(hg) (HIGH) O2 Sat - 96 % Pain - 6 Fatigue - 7 Performance Status: 1 - No physically strenuous activity, but ambulatory and able to carry out light or sedentary work (e.g. office work, light house work). (ECOG) Physical Examination: ENMT - No mouth sores, no thrush, no jaundice, Respiratory - Lungs are clear to auscultation, Cardiovascular - Regular rate and rhythm of heart, Abdomen - Soft, bowel sounds present, Extremities - No visible edema. Lab/Imaging: Most recent lab results are not available for this patient. Impression: Biochemical recurrence, CT scan of abdomen pelvis done on 04/25/2018 showed sclerotic lesions in the pelvic bones no pelvic lymphadenopathy or abnormal mass. History of prostrate cancer initially diagnosed in 2006 at that time his PSA was 7.1 and left-sided nodule biopsy showed 6 out of 12 cores positive for 3+3/3+ for MERCHANDISE MARKER with 20-60% involvement status post external beam radiation therapy completed in March 2007 Follow-up PSA showed excellent response till 2009 when PSA started going up underwent rebiopsy of prostate on 09/14/2009 which was nondiagnostic but suspicious for malignancy. Started on LHRH agonist in December 2009 2 weeks of Casodex, excellent response PSA become undetectable still January 2012 with slow rise thereafter e.g. 0.27 on 08/05/2012, 2 in May 2013, 7 in November 2013, 8.4 in March 2015 bicalutamide was admitted in September 2015 later stopped after PSA continued to go up, subsequently underwent bilateral scrotal orchiectomy in April 2017 PSA continued to rise around 20 on 01/28/2018 for the gone up to 39.58 in April 2018, at that time Casodex 50 mg by mouth was started and patient was referred to medical oncology clinic Zoladex 10.8 mg every 3 months started on 06/01/2018 Bone scan done on 06/01/2018 showed L3 and L4 vertebral body increased activity corresponding to the prior CT sclerosis. Left T10 and T7 lateral vertebral body or facet increase activity you from prior exam done in December 2006,. New right lateral posterior ninth rib focus of increased activity. did see Mr. Jacobs in August 2018 at which time Mr. Jacobs was having moderate to severe distress with progressive lower back pain. He was sent to the emergency room for evaluation for possible metastatic disease or prolapse/collapsed vertebra. His PSA at that time was 34.24 and his testosterone was 19.9. New right sixth and eighth anterior lateral rib focus of increased activity. Recently diagnosed with thyroid cancer status post thyroidectomy with lymph node dissection now radioactive iodine therapy was under consideration as of June 2018. Mr. Jacobs was seen in the emergency room on 09/07/2018 for low back pain. He apparently been having back pain for 2 weeks. It was described as intermittent dull and sharp pain sometimes radiating to the left hip. It has gotten progressively worse. The pain medication was only partly relieving it. He did have a CT of the lumbar spine on 09/07/2018. It showed progressive sclerotic metastatic disease along the posterior margin of the right L1 vertebral body, the superior endplates of L3 and L4, left L3 pedestal, sclerotic focus involving the right anterior aspect of the L5 body and sclerotic focus along the lateral margin of the right iliac bone. He was referred to Dr. Corral for consideration of palliative radiation therapy. Dr. Corral did see him the same day on 09/07/2018. And did recommend palliative radiation to the lower back to control the metastatic disease in relieve pain. He was also started on Decadron 4 mg every 6 hours for 7 days in the emergency room on 09/07/2018. Mr Jacobs received radiation therapy to the spine He received 3000 cGy total dose to the SPINE GTV30 starting 09/13/2018 and ending 10/01/2018. He then received treatment to T10 spine, ref ID: T10 Spine to a total dose of 3000 cGy starting 02/03/2019 and ending on 02/17/2019. He has had an excellent response to the radiation with his back pain resolved. He has been on denosumab since June 10, 2018 per our chart. He continues with Zoladex with his last dose being given on March 25, 2019. He also received denosumab at that time as well. He has had significant elevation of his PSA on March 25, 2019 it was 44. On January 20, 2019 it was 29. It has been recommended that he pursue treatment with Zytiga/prednisone and continue the every 3-month dose of Zoladex and denosumab. Persistent leukopenia, bone marrow done on July 07, 2019 showed no evidence of myelodysplasia or any other marrow abnormality, could be due to treatment with radioactive iodine follow-up bone scan done on September 06, 2020 shows no new areas of uptake, multiple areas of radionuclide uptake unchanged compared to previous study Plan: Discussed with patient regarding his labs white blood count 3.5 hemoglobin 13.3 hematocrit 41 platelets 137,000 PSA 7.46 compared to 7.66 earlier MRI scan of the hip and spine findings were discussed Clinically, patient doing well with no signs symptoms just to disease progression his PSA continue to improve, patient is tolerating Zoladex/Xgeva well Because of his chronic lower back pain and now right hip pain MRI scan of the hip and thoracic/lumbar spine was done which showed no obvious evidence of disease progression or active disease but avascular necrosis in the right hip, at this point we will refer him to orthopedics for evaluation and then he will return to clinic in 1 month with PSA and for his 3 monthly dose of Zoladex/Xgeva. Signed By: Daniel Monahan M.D. <<Signature on File>>
== END 2020-12-13 06:31 | disposition home or self-care (01) ==
LOC: ONCMED 06:30
PROVIDERS: PCP Family Medicine; Visit Provider Internal Medicine Hematology & Oncology
DX: C61 Malignant neoplasm of prostate (principal); C79.51 Secondary malignant neoplasm of bone; C73 Malignant neoplasm of thyroid gland; R97.20 Elevated prostate specific antigen [PSA]; D70.1 Agranulocytosis secondary to cancer chemotherapy; T45.1X5D Adverse effect of antineoplastic and immunosuppressive drugs, subsequent encounter; Z79.818 Long term (current) use of other agents affecting estrogen receptors and estrogen levels; Z92.21 Personal history of antineoplastic chemotherapy; Z92.3 Personal history of irradiation
CPT/HCPCS: 99214

== ENCOUNTER 2021-01-14 13:31 | Outpatient (CLI) | payer MEDICARE, MEDICAID, SELFPAY ==
[2021-01-14 14:43] LABS: Basophils % 0.4 %; Eosinophils % 0.7 %; Hematocrit 39.2 % (42.0-52.0); Hemoglobin 13.3 g/dL (11.7-16.6); Lymphocytes # 0.5 10^3/uL (0.8-4.8); Lymphocytes % 9.8 %; Mean Corpuscular HGB Conc 33.9 g/dL (30.0-36.0); Mean Corpuscular Hemoglobin 31.8 pg (28.0-34.0); Mean Corpuscular Volume 93.8 fl (80-94); Mean Platelet Volume 11.4 fL (7.4-10.4); Monocytes # 0.6 10^3/uL (0.2-0.9); Monocytes % 10.8 %; Neutrophils # 4.19 10^3/uL (1.8-7.7); Neutrophils % 77.7 %; Nucleated Red Blood Cells % 0 %; Platelet Count 149 10^3/cmm (130-400); Red Blood Count 4.18 10^6/uL (4.1-5.3); White Blood Count 5.4 10^3/uL (4.0-10.0)
== END 2021-01-14 13:32 | disposition home or self-care (01) ==
LOC: ONCMED 13:34
PROVIDERS: PCP Family Medicine; Visit Provider Internal Medicine Hematology & Oncology
DX: C61 Malignant neoplasm of prostate (principal); C79.51 Secondary malignant neoplasm of bone; C73 Malignant neoplasm of thyroid gland; Z79.899 Other long term (current) drug therapy
CPT/HCPCS: 36415; 84153; 85025

== ENCOUNTER 2021-01-15 06:26 | Outpatient (CLI) | payer MEDICARE, MEDICAID, SELFPAY ==
[2021-01-15] MEDS: lidocaine 1% INJ 20 mL INJECTION (15:24)
--- NOTE | 2021-01-15 15:25 | ONC FU_ITS ---
Dr. Monahan follow up note Patient: Charlie Jacobs Unit #: [id number]: 1945 Dicatated By: Daniel Monahan M.D.Date of Visit:Jan 15, 2021 Onc Med Follow-up/Prog Note History of Present Illness: Mr. Jacobs is a 75-year-old gentleman with history of prostate cancer initially diagnosed in December 2006. At that time, his PSA was 7.1 and left sided nodule biopsies showed 6 out of 12 cores positive for 3+3/3+4 OSTEOPATHIC RESIDENT with 20-60% involvement. He received external beam radiation therapy which he completed in March 2007. Follow-up PSA level showed good response but start increasing and peak prior to initiation of hormonal therapy was 6.1, patient underwent rebiopsy on 09/14/2009 which showed suspicious pathology but not diagnostic. Mr Jacobs was started on LHRH agonist in December 2009 with 2 weeks of Casodex. He had excellent response. PSA was undetectable till January 2012 thereafter slow rise e.g. 0.27 on 08/05/2012 and 2 in May 2013, 7 in November 2013 and 8.4 in March 2015. Bicalutamide was added. In September 2015 and later stopped after increasing PSA again. In April 2017 bilateral scrotal orchiectomy was done. But PSA continued to rise in January 2018 was around 19 and in April 2018,gone up to 39.58. At that time, he started on Casodex 50 mg by mouth daily and CT scan of abdomen pelvis was done on 04/25/2018 which showed no pelvic lymphadenopathy but nonspecific multifocal osseous sclerotic foci; descending sigmoid colon diverticulosis with the descending sigmoid colon junction short segment diverticulitis patient was treated with antibiotics. Zoladex 10.8 mg was started on 06/01/2018. In the meantime, Mr Jacobs developed a mass in the right side of his neck and further investigation led to the diagnosis of thyroid cancer. He underwent thyroidectomy with lymph node dissection- as per patient, cancer was involving lymph nodes. s/p radioactive iodine treatment in early June in [facility]. Mr. Jacobs was seen in the emergency room on 09/07/2018 for low back pain. He apparently had been having back pain for 2 weeks. It was described as intermittent dull and sharp pain sometimes radiating to the left hip. It has gotten progressively worse. The pain medication was only partly relieving it. He did have a CT of the lumbar spine on 09/07/2018. It showed progressive sclerotic metastatic disease along the posterior margin of the right L1 vertebral body, the superior endplates of L3 and L4, left L3 pedestal, sclerotic focus involving the right anterior aspect of the L5 body and sclerotic focus along the lateral margin of the right iliac bone. He was referred to Dr. Corral for consideration of palliative radiation therapy. Dr. Corral did see him the same day on 09/07/2018 and did recommend palliative radiation to the lower back to control the metastatic disease and relieve pain. He was also started on Decadron 4 mg every 6 hours for 7 days in the emergency room on 09/07/2018. Mr Jacobs received radiation therapy to the spine He received 3000 cGy total dose to the SPINE GTV30 starting 09/13/2018 and ending 10/01/2018. He then received treatment to T10 spine, ref ID: [id number] Spine to a total dose of 3000 cGy starting 02/03/2019 and ending on 02/17/2019. He has had an excellent response to the radiation with his back pain resolved. He has been on denosumab since June 10, 2018 per our chart. He continues with Zoladex with his last dose being given on August 30, 2019. He also received denosumab at that time as well. He had significant elevation of his PSA on March 25, 2019 it was 44. On January 20, 2019 it was 29. It was recommended that he pursue treatment with Zytiga/prednisone and continue the every 3-month dose of Zoladex and monthly denosumab. As per patient, he went to emergency room with hypertension and abdominal discomfort. He underwent a CT scan of abdomen on the 04/09/2019 which showed nonspecific bibasilar groundglass opacity consistent with atelectasis edema or pneumonia. Unchanged size of sclerotic bone lesions. Avascular necrosis of right femoral head. Diverticulosis without diverticulitis. No hydronephrosis. His blood pressure was within normal range and pulse was between 90 and 100 and as per patient and his EKG did not show any abnormality. Patient was treated IV fluid and discharge home on oral antibiotic Flagyl for presumed diagnosis of diverticulitis, was referred to Dr. Fermin for GI evaluation, as per patient now colonoscopy is under consideration. His labs ER on 04/09/2019 shows white blood count 2.6 and globin 12.4 hematocrit 37 platelets 130,000 CMP within normal limits The zytiga /prednisone was discontinued by Mr Jacobs on 04/11/2019 because of diarrhea and hypertension. It was restarted on 05/26/2019. CT scan of thoracic lumbar spine done on June 27, 2019 showed no changes in thoracic spine. shows arthropathy and lumbar spine show slight progressed blastic lesion in L1, 8.2 mm but severe central canal stenosis in L3-4, and L4-5 and advanced arthropathy. tolerating Zytiga. Prednisone, Zoladex and Xgeva. chronic back pain for which he has seen orthopedics and now back surgery under consideration. But patient decided not to proceed with the surgery Follow-up CT scan of abdomen pelvis done on August 21, 2020 shows no metastatic disease within the chest abdomen or pelvis, stable left renal cysts, distal colon diverticulosis without diverticulitis. Several of the sclerotic foci have increased in size since March 2019 in June 2019. Specifically right eighth rib, L1 and L2 vertebral body. Progression of bony mets should be considered, bone scan recommended f/u Bone scan done on September 06, 2020 shows no new area of uptake identified but multiple areas of radionuclide uptake unchanged when compared with previous study tolerating Zoladex/abiraterone/prednisone/Xgeva well otherwise as per patient, patient underwent MRI scan of the spine and hip on December 10, 2020 which showed serpiginous T1 and T2 signal abnormality involving articular surface superior lateral femoral head compatible with avascular necrosis. Associated moderate edema in the femoral head. Moderate arthritis left hip with joint space narrowing. No suspicious enhancing lesion seen in the pelvic bones. MRI spine done on December 06, 2020 showed there are extensive bone lesions in the thoracic and lumbar spine but none of these enhance or have changed since January 25, 2019. Severe central, bilateral subarticular recess and moderate foraminal stenosis at L4-5 with mild progression since prior study. Moderate central, bilateral subarticular recess and mild foraminal stenosis at L2-3 and 3 4 Came for follow-up, denies any specific complaint except pain in his right hip and lower back but no urine or stool incontinence, no pain radiating to the right leg. No dysuria or hematuria overall feeling well, tolerating Zoladex/Xgeva well Medications: Albuterol Sulfate 1 puff(s) (of (2.5 mg/3ml) 0.083%) Nebulization solution Inhalation four times a day, Alfuzosin HCl ER 1 Tablet (of 10 mg) Tablet SR 24 HR Oral at bedtime, Aspirin 1 Tablet (of 81 mg) Oral daily, Atorvastatin Calcium 1 Tablet (of 80 mg) Oral daily, Belsomra 1 Tablet (of 15 mg) Oral at bedtime PRN, Cetirizine HCl 1 Tablet (of 10 mg) Oral daily, Cyclobenzaprine HCl 0.5 - 1 Tablet (of 10 mg) Oral t.i.d. PRN, Esomeprazole Magnesium 1 Capsule (of 40 mg) Capsule Delayed Release Oral daily, HYDROcodone-Acetaminophen 1 Tablet (of 10-325 mg) Oral four times a day PRN, Ipratropium-Albuterol 1 puff(s) (of 0.5-2.5 (3) mg/3ml) Solution Inhalation q 4 hours PRN, Januvia 1 Tablet (of 25 mg) Oral daily, Levothyroxine Sodium 1 Tablet (of 175 mcg) Oral daily, Lisinopril 0.5 Tablet (of 20 mg) Oral daily, Metoprolol Succinate ER 1 Tablet (of 25 mg) Tablet SR 24 HR Oral daily, Mirtazapine 1 Tablet (of 7.5 mg) Oral daily, Montelukast Sodium 1 Tablet (of 10 mg) Oral daily, Nitroglycerin 1 Tablet (of 0.4 mg) Tablet, sublingual Sublingual PRN, ProAir HFA 1 puff(s) (of 108 (90 base) mcg/act) Aerosol, solution Inhalation q 4 hours PRN, Probiotic Digestive Support 1 Capsule Oral daily, Trelegy Ellipta 1 Puff(s) (of 100-62.5-25 mcg/inh) Aerosol Powder, Breath Activated Inhalation daily, Xgeva 1 Subcutaneous q 30 days, Zetia 1 Tablet (of 10 mg) Oral daily, Zoladex (10.8 mg) Subcutaneous q 12 weeks Allergies: Vancomycin HCl Review of Systems: Review of Systems is not available for this patient. Vital Signs: Performed on Jan 15, 2021 15:07 Height - 75.00 in Weight - 238.2 lbs (HIGH) BSA - 2.36 sq.m BMI - 29.77 Temperature - 97.7 F (LOW) Pulse - 51 /min (LOW) Respiration - 16 /min BP - 134/86 mm(hg) O2 Sat - 98 % Pain - 7 Fatigue - 7 Performance Status: 0 - Fully active, able to carry on all predisease activities without restrictions. (ECOG) Physical Examination: ENMT - No mouth sores, no thrush, no jaundice, Respiratory - Lungs are clear to auscultation, Cardiovascular - Regular rate and rhythm of heart, Abdomen - Soft, bowel sounds present, Extremities - No visible edema. Lab/Imaging: Most recent lab results are not available for this patient. Impression: Biochemical recurrence, CT scan of abdomen pelvis done on 04/25/2018 showed sclerotic lesions in the pelvic bones no pelvic lymphadenopathy or abnormal mass. History of prostrate cancer initially diagnosed in 2006 at that time his PSA was 7.1 and left-sided nodule biopsy showed 6 out of 12 cores positive for 3+3/3+ for OSTEOPATHIC RESIDENT with 20-60% involvement status post external beam radiation therapy completed in March 2007 Follow-up PSA showed excellent response till 2009 when PSA started going up underwent rebiopsy of prostate on 09/14/2009 which was nondiagnostic but suspicious for malignancy. Started on LHRH agonist in December 2009 2 weeks of Casodex, excellent response PSA become undetectable still January 2012 with slow rise thereafter e.g. 0.27 on 08/05/2012, 2 in May 2013, 7 in November 2013, 8.4 in March 2015 bicalutamide was admitted in September 2015 later stopped after PSA continued to go up, subsequently underwent bilateral scrotal orchiectomy in April 2017 PSA continued to rise around 20 on 01/28/2018 for the gone up to 39.58 in April 2018, at that time Casodex 50 mg by mouth was started and patient was referred to medical oncology clinic Zoladex 10.8 mg every 3 months started on 06/01/2018 Bone scan done on 06/01/2018 showed L3 and L4 vertebral body increased activity corresponding to the prior CT sclerosis. Left T10 and T7 lateral vertebral body or facet increase activity you from prior exam done in December 2006,. New right lateral posterior ninth rib focus of increased activity. did see Mr. Jacobs in August 2018 at which time Mr. Jacobs was having moderate to severe distress with progressive lower back pain. He was sent to the emergency room for evaluation for possible metastatic disease or prolapse/collapsed vertebra. His PSA at that time was 34.24 and his testosterone was 19.9. New right sixth and eighth anterior lateral rib focus of increased activity. Recently diagnosed with thyroid cancer status post thyroidectomy with lymph node dissection now radioactive iodine therapy was under consideration as of June 2018. Mr. Jacobs was seen in the emergency room on 09/07/2018 for low back pain. He apparently been having back pain for 2 weeks. It was described as intermittent dull and sharp pain sometimes radiating to the left hip. It has gotten progressively worse. The pain medication was only partly relieving it. He did have a CT of the lumbar spine on 09/07/2018. It showed progressive sclerotic metastatic disease along the posterior margin of the right L1 vertebral body, the superior endplates of L3 and L4, left L3 pedestal, sclerotic focus involving the right anterior aspect of the L5 body and sclerotic focus along the lateral margin of the right iliac bone. He was referred to Dr. Corral for consideration of palliative radiation therapy. Dr. Corral did see him the same day on 09/07/2018. And did recommend palliative radiation to the lower back to control the metastatic disease in relieve pain. He was also started on Decadron 4 mg every 6 hours for 7 days in the emergency room on 09/07/2018. Mr Jacobs received radiation therapy to the spine He received 3000 cGy total dose to the SPINE GTV30 starting 09/13/2018 and ending 10/01/2018. He then received treatment to T10 spine, ref ID: T10 Spine to a total dose of 3000 cGy starting 02/03/2019 and ending on 02/17/2019. He has had an excellent response to the radiation with his back pain resolved. He has been on denosumab since June 10, 2018 per our chart. He continues with Zoladex with his last dose being given on March 25, 2019. He also received denosumab at that time as well. He has had significant elevation of his PSA on March 25, 2019 it was 44. On January 20, 2019 it was 29. It has been recommended that he pursue treatment with Zytiga/prednisone and continue the every 3-month dose of Zoladex and denosumab. Persistent leukopenia, bone marrow done on July 07, 2019 showed no evidence of myelodysplasia or any other marrow abnormality, could be due to treatment with radioactive iodine follow-up bone scan done on September 06, 2020 shows no new areas of uptake, multiple areas of radionuclide uptake unchanged compared to previous study Plan: Discussed with patient regarding his labs white blood count 5.4 hemoglobin 13.3 hematocrit 39.2 platelets 149,000 compared to white blood count 3.5 on December 12, 2020 PSA is 5.75 compared to 7.46 on December 12, 2020 Clinically, patient is doing well, with no new signs symptom suggestive of disease progression, his PSA continue to improve, will proceed with next 3 monthly dose of Zoladex/Xgeva today and then he will return to clinic in 3 months with CBC and PSA, Will continue with daily abiraterone/prednisone As far as leukopenia is concerned, now resolved, will continue to monitor. As far as right hip/lower back pain is concerned, patient is scheduled to see Dr. Colby, orthopedics for evaluation. Signed By: Daniel Monahan M.D. <<Signature on File>>
[2021-01-15] MEDS: goserelin acetate 10.8 mg Implant SUBCUT (15:34)
[2021-01-15] MEDS: denosumab 120 mg SDV SUBCUT (15:35)
== END 2021-01-15 06:27 | disposition home or self-care (01) ==
LOC: ONCMED 06:26
PROVIDERS: PCP Family Medicine; Visit Provider Internal Medicine Hematology & Oncology
DX: C61 Malignant neoplasm of prostate (principal); C79.51 Secondary malignant neoplasm of bone; R97.20 Elevated prostate specific antigen [PSA]; C73 Malignant neoplasm of thyroid gland; D72.819 Decreased white blood cell count, unspecified; Z79.818 Long term (current) use of other agents affecting estrogen receptors and estrogen levels; Z92.21 Personal history of antineoplastic chemotherapy; Z92.3 Personal history of irradiation
CPT/HCPCS: 96372; 96402; 99215; J0897; J9202

== ENCOUNTER → 2021-02-04 10:35 | Outpatient (BNVA) | payer MEDICARE, MEDICAID, SELFPAY | PROVIDERS: PCP Family Medicine; Referring Provider Internal Medicine Hematology & Oncology; Visit Provider Specialist | DX: M25.551 Pain in right hip (principal) | CPT/HCPCS: 73502 ==

== ENCOUNTER → 2021-02-13 14:20 | Outpatient (BNVA) | payer MEDICARE, MEDICAID, SELFPAY | PROVIDERS: PCP Family Medicine; Visit Provider Nurse Practitioner Family | DX: Z20.822 Contact with and (suspected) exposure to COVID-19 (principal) | CPT/HCPCS: 87635 ==

== ENCOUNTER → 2021-02-14 08:03 | Outpatient (BNVA) | payer MEDICARE, MEDICAID, SELFPAY | PROVIDERS: PCP Family Medicine; Referring Provider Specialist; Visit Provider Orthopaedic Surgery | DX: M48.062 Spinal stenosis, lumbar region with neurogenic claudication (principal); M89.9 Disorder of bone, unspecified; M47.894 Other spondylosis, thoracic region; M47.896 Other spondylosis, lumbar region; M46.97 Unspecified inflammatory spondylopathy, lumbosacral region | CPT/HCPCS: 72110 ==

== ENCOUNTER → 2021-02-22 10:18 | Outpatient (BNVA) | payer MEDICARE, MEDICAID, SELFPAY | PROVIDERS: PCP Family Medicine; Visit Provider Family Medicine | DX: E11.9 Type 2 diabetes mellitus without complications (principal) | CPT/HCPCS: 83036 ==

== ENCOUNTER → 2021-03-06 00:01 | Outpatient (BNVA) | payer MEDICARE, MEDICAID, SELFPAY | PROVIDERS: PCP Family Medicine; Visit Provider Orthopaedic Surgery | DX: M51.17 Intervertebral disc disorders with radiculopathy, lumbosacral region (principal); Z20.822 Contact with and (suspected) exposure to COVID-19 | CPT/HCPCS: 87635 ==

== ENCOUNTER → 2021-03-07 12:01 | Day surgery (SDC) | payer MEDICARE, MEDICAID, SELFPAY | PROVIDERS: PCP Family Medicine; Visit Provider Orthopaedic Surgery | DX: Z01.818 Encounter for other preprocedural examination (principal) | CPT/HCPCS: 93005 ==

== ENCOUNTER 2021-03-13 06:53 | Day surgery (SDC) | payer MEDICARE, MEDICAID, SELFPAY ==
[2021-03-07 11:44] VITALS: BMI 29.5
--- NOTE | 2021-03-07 12:01 | ECG_ITS ---
[facility] Test Date: 2021-03-07 Pat Name: Charlie Jacobs Department: Room: Gender: Male Child Support Case Officer: : 1945 Requested By: Lito Mas Order Number: [id number] Jessy MD: Felisha Langston M.D. Measurements Intervals Orwell Rate: 83 P: 69 NM: 157 QRS: 53 QRSD: 82 T: 72 QT: 365 QTc: 430 Interpretive Statements SINUS RHYTHM WITH OCCASIONAL VENTRICULAR PREMATURE COMPLEXES Compared to ECG 04/09/2019 17:24:50 Ventricular premature complex(es) now present Electronically Signed On 03-07-2021 22:23:52 INSULATION BLOWER by Felisha Langston M.D. [id number]
--- NOTE | 2021-03-07 12:32 | ANES.PREANE2 ---
Pre-Anesthetic Assessment Height/Weight: Height 1.91 m Weight 107.048 kg Preop Diagnosis: Recurrent diverticulitis Operation Date: 03/13/21 08:45 Proposed Procedures p Lumbar Spine Decompression L4/5(Not Applicable) - Lito Oneil DO Familial anesthetic complications: None Was Beta Michelle taken within 24 hours: Yes Was Clonidine taken within 24 hours: N/A Social Tobacco and No alcohol Exam alert, oriented x 3 and regular rate & rhythm rhonchi Airway Submandibular: within normal limits Cervical ROM: within normal limits Mallampati: Class II Dentition: false Pulmonary Chronic Obstructive Pulmonary Disease CV/HEM Coronary Artery Disease and Hypertension GI Gastroesophageal Reflux Disease Musc/skel Lower Back Pain and Osteoarthritis/DJD Anesthetic Plan ASA status: 3 Anesthesia: General Risk of > 500 ml blood loss (7ml/kg in children): No Medications/Allergies Home Medications Medication Instructions Recorded Confirmed Last Taken Type albuterol sulfate 90 mcg/actuation 2 puff INHALATION Q6H PRN 03/29/19 03/07/21 07/08/19 History aerosol inhaler (ProAir HFA) aspirin 81 mg tablet,delayed 81 mg PO DAILY 03/29/19 03/07/21 07/06/19 History release cetirizine 10 mg capsule (All Day 10 mg PO DAILY cap 03/29/19 03/07/21 07/06/19 History Allergy (cetirizine)) cyclobenzaprine 10 mg tablet 10 mg PO TID 03/29/19 03/07/21 07/06/19 History levothyroxine 175 mcg capsule 175 mcg PO DAILY 03/29/19 03/07/21 07/12/19 06:00 History prednisone 5 mg tablet 5 mg PO BID PRN 06/13/19 03/07/21 07/11/19 History abiraterone 250 mg tablet (Zytiga) 250 mg PO DAILY tab 02/15/20 03/07/21 Unknown History prochlorperazine maleate 10 mg 10 mg PO Q6H PRN 02/15/20 03/07/21 Unknown History tablet alfuzosin 10 mg tablet,extended 10 mg PO DAILY #30 tab 03/06/20 03/07/21 Unknown Rx release 24 hr albuterol sulfate 2.5 mg INHALATION Q4H PRN 06/08/20 03/07/21 Unknown History montelukast 10 mg tablet 10 mg PO DAILY #90 tab 07/11/20 03/07/21 Unknown Rx esomeprazole magnesium 40 mg 40 mg PO DAILY #90 cap 09/28/20 03/07/21 Unknown Rx capsule,delayed release (Nexium) fluticasone fur. 100 mcg-umeclid 1 inh INHALATION DAILY #60 each 11/19/20 03/07/21 Unknown Rx 62.5 mcg-vilant 25 mcg inhalat.powder (Trelegy Ellipta) fluticasone propionate 50 2 spray INTRANASAL DAILY #48 g 12/07/20 03/07/21 Unknown Rx mcg/actuation nasal spray,suspension (Flonase Allergy Relief) atorvastatin 80 mg tablet 80 mg PO DAILY #90 tab 12/25/20 03/07/21 Unknown Rx metoprolol succinate 25 mg 25 mg PO DAILY #90 tab 12/25/20 03/07/21 Unknown Rx tablet,extended release 24 hr sitagliptin 100 mg tablet (Januvia) 100 mg PO DAILY #90 tab 12/25/20 03/07/21 Unknown Rx gabapentin 300 mg capsule 300 mg PO TID #90 cap 01/18/21 03/07/21 Unknown Rx (Neurontin) nitroglycerin 0.4 mg sublingual 0.4 mg SUBLINGUAL Q5M PRN #30 tab 01/18/21 03/07/21 Unknown Rx tablet (Nitrostat) dextromethorphan-guaifenesin 30 1 tab PO Q12H PRN #60 tab 02/14/21 03/07/21 Unknown Rx mg-600 mg tablet extended thruvqq35 hr hydrocodone 5 mg-acetaminophen 325 1 tab PO Q4H PRN 02/14/21 03/07/21 Unknown History mg tablet empagliflozin 10 mg tablet 10 mg PO DAILY 90 Days #90 tab 02/25/21 03/07/21 Unknown Rx (Jardiance) Allergies Allergy/AdvReac Type Severity Reaction Status Date / Time vancomycin Allergy HIVES,RASH Verified 02/22/21 09:39 [facility] Anesthesia Medical History (Updated 02/22/21 @ 11:08 by Joann Knowles DO) Benign essential HTN BPH with obstruction/lower urinary tract symptoms COPD (chronic obstructive pulmonary disease) Dyslipidemia GERD (gastroesophageal reflux disease) History of diverticulitis History of thyroid cancer Hypogonadism in male Insomnia Intervertebral disc disorder with radiculopathy of lumbosacral region Lumbar stenosis with neurogenic claudication Metastasis to bone Post-surgical hypothyroidism Prostate cancer Type 2 diabetes mellitus, without long-term current use of insulin Surgical History H/O hernia repair H/O total knee replacement History of colonoscopy (07/12/19) diverticulosis, repeat 10 years History of hemorrhoidectomy History of orchiectomy, bilateral History of thyroidectomy, subtotal History of uvulectomy Family History Mother Cancer Diabetes Sister Diabetes Other CAD (coronary artery disease) Social History Smoking and tobacco status: current every day smoker Alcohol intake: never Lives independently: Yes Household members: spouse Marital status: Current occupational status: retired History of recent travel: No Data Anesthesia Cardiac Studies: No Data to Display
--- NOTE | 2021-03-13 | SCC_ITS ---
Procedure done: 1. L4/5 laminectomy with partial facetectomy 7.0 seconds of fluoroscopic guidance, for a cumulative dose of 3.93 mGy, was provided to Dr. Oneil by the radiology department. C-arm images of the lumbar spine were saved for the patient's permanent record. [facility]
--- NOTE | 2021-03-13 | XR_ITS ---
WS: [id number] XR lumbar spine 1V [id number] REASON FOR EXAM: lumbar decompression FINDINGS: Surgical device overlying the left L4-L5 disc space. XR/XR lumbar spine 1V [id number] IMPRESSION: Intraoperative lumbar spine localization as above.
[2021-03-13 07:50] VITALS: BP 139/89; PULSE 71; RESP 16; TEMP 36.4; O2SAT 94
[2021-03-13 08:23] LABS: Glucose Point of Care 125 mg/dL (70-110)
--- NOTE | 2021-03-13 08:23 | W.PM.OPSUD ---
Surgery/Procedure H&P Update DATE OF PROCEDURE: March 13, 2021 DATE H&P PERFORMED: 02/14/21 CHANGES TO PREVIOUS DOCUMENTATION: no changes to H+P after reviewing PREOP DIAGNOSIS: Lumbar stenosis with neurogenic claudication PLANNED PROCEDURE: Operation Date: 03/13/21 08:45 Proposed Procedures p Lumbar Spine Decompression L4/5(Not Applicable) - Lito Oneil DO
--- NOTE | 2021-03-13 08:37 | P.ANESUD_ITS ---
Pre-Anesthetic Update Pre-Anesthetic Assessment: Date of Surgery/Procedure: 03/13/21 Preop Shiela gnosis: Lumbar stenosis with neurogenic claudication Proposed Procedure: Operation Date: 03/13/21 08:45 Proposed Procedures p Lumbar Spine Decompression L4/5(Not Applicable) - Lito Oneil, DO Any changes to Pre-Anesthetic Assessment?: No Last Intake: Intake Last Liquid Date 03/12/21 Last Liquid Time 23:30 Last Solid Date 03/12/21 Last Solid Time 16:30 Vitals: Temperature 97.5 F L 03/13/21 07:50 Temperature Source Temporal Artery S can 03/13/21 07:50 Pulse Rate 71 03/13/21 07:50 Pulse Rhythm 03/13/21 08:08 Pulse Strength 3+ Normal 03/13/21 08:08 Respiratory Rate 16 03/13/21 07:50 Blood Pressure 139/89 03/13/21 07:50 Blood Pressure Dannielle n 105 03/13/21 07:50 Pulse Oximetry 94 03/13/21 07:50 Oxygen Delivery Me thod 03/13/21 08:08 Exam: Pre-Anes Outpt Exam: alert, oriented x 3, clear to auscultation bilaterally and regular rate & rhythm Cardiac Studies: No Data to Display
[2021-03-13] MEDS: sodium chloride 0.9% 1,000 ML 30 ML IV (08:39)
--- NOTE | 2021-03-13 09:54 | P.OP_ITS ---
Operative Report Date of procedure: March 13, 2021 Pre-op diagnosis: Preop Diagnosis Lumbar stenosis with neurogenic claudication Post-op diagnosis: same Procedure done: 1. L4/5 laminectomy with partial facetectomy Surgeon: Lito Oneil Reverberatory Furnace Operator: Omega Lynch Reverberatory Furnace Operator: The surgical garment assembly supervisor, Omega Lynch, JOSE JUAN was needed for his expertise under the microscope. He was important and necessary throughout the procedure to complete in a safe and timely manner. He assisted with patient positioning prepping and draping tissue retraction suctioning of the operative field protection of the dural sac and tissue closure Estimated blood loss (mL): 5 Procedure: 1. L4/5 laminectomy with partial facetectomy Patient is brought to the operative suite. After undergoing anesthesia they are placed in the prone position. All areas of impingement are well padded. Patient is then prepped and draped in the normal sterile fashion. A skin incision is made over the L4/5 level. This is confirmed under c-arm guidance. A series of dilators are passed and the tubular retractor is docked on the L4 lamina. A bovie is used to clear the soft tissue off the lamina and the L 4/5 facet joint. A high speed adama is then used to perform the laminectomy and take down the medial aspect of the L 4/5 facet joint. A kerrison rongeure was then used to take down the remaining lamina and smooth the edge of the laminectomy up to the point where the ligamentum flavum attaches. Attention was then brought to the medial aspect of the facet joint. The remaining medial aspect of the superior and inferior aspect of the facet joint were taken down with the kerrison from the pedicle of L4 to L 5. The facet joint had significant hypertrophy. Attention was then brought to the Ligamentum Flavum. The ligament was taken down from the lamina of L4 to L5 and out medially to the remaining facet joint. The ligament was thick. The dura was then exposed. The dura was in good r epair. The L4 nerve was then traced with a curette out the L4/5 foramen and found to be adequately decompressed. The L5 nerve was traced with a curette around the L5 pedicle. The lateral recess was opened with a kerrison helping to further decompress the L5 nerve. Wound is then irrigated copiously with saline and surgiflo is used to stop any bleeding. The tubular retractor is removed and the wound is closed with vicryl and monocryl suture. Glue is then used to protect the wound. A sterile dressing is then placed. Patient was then placed in the supine position and transferred to the PACU in stable condition.
[2021-03-13 09:55] VITALS: BP 186/108; PULSE 84; RESP 18; TEMP 36.2; O2SAT 93
[2021-03-13 10:00] VITALS: BP 172/94; PULSE 79; RESP 18; O2SAT 93
[2021-03-13 10:05] VITALS: BP 146/99; PULSE 76; RESP 15; TEMP 36.1; O2SAT 92
[2021-03-13 10:15] VITALS: BP 156/87; PULSE 67; RESP 14; TEMP 36.3; O2SAT 95
[2021-03-13 10:57] VITALS: BP 138/91; PULSE 58; RESP 14; TEMP 36.6; O2SAT 95
--- NOTE | 2021-03-13 12:58 | ANE.PACU2 ---
Inpatient post-anesthesia follow up: Airway intact: Yes Vital signs: Temperature 97.8 F Pulse Rate 58 Respiratory Rate 14 Blood Pressure 138/91 Pulse Oximetry 95 Oxygen Delivery Me thod Room Air Oxygen Flow Rate Fraction of Inspir ed Oxygen Hydration adequate: Yes Nausea and vomiting: No Pain level: 1 Mental status: Baseline
== END 2021-03-13 11:05 | disposition home or self-care (01) ==
PROVIDERS: PCP Family Medicine; Visit Provider Orthopaedic Surgery
PROC: (CPT 63005; principal; 2021-03-13 08:45)
DX: M48.062 Spinal stenosis, lumbar region with neurogenic claudication (principal); J44.9 Chronic obstructive pulmonary disease, unspecified; F17.210 Nicotine dependence, cigarettes, uncomplicated; I25.10 Atherosclerotic heart disease of native coronary artery without angina pectoris; I10 Essential (primary) hypertension; M19.90 Unspecified osteoarthritis, unspecified site; K21.9 Gastro-esophageal reflux disease without esophagitis; Z79.82 Long term (current) use of aspirin; N40.1 Benign prostatic hyperplasia with lower urinary tract symptoms; N13.8 Other obstructive and reflux uropathy; E78.5 Hyperlipidemia, unspecified; E11.9 Type 2 diabetes mellitus without complications; Z85.46 Personal history of malignant neoplasm of prostate; Z82.49 Family history of ischemic heart disease and other diseases of the circulatory system; Z83.3 Family history of diabetes mellitus
CPT/HCPCS: 63047; 36416; 72020; 76000; 82962; J0690; J1100; J2704; J2710; J3010; J3490; J7030

== ENCOUNTER → 2021-03-27 11:55 | Outpatient (BNVA) | payer MEDICARE, MEDICAID, SELFPAY | PROVIDERS: PCP Family Medicine; Visit Provider Nurse Practitioner | DX: R60.9 Edema, unspecified (principal) | CPT/HCPCS: 80053 ==

== ENCOUNTER 2021-04-16 12:21 | Outpatient (CLI) | payer MEDICARE, MEDICAID, SELFPAY ==
[2021-04-16 13:24] LABS: Basophils % 0.8 %; Hematocrit 42.3 % (42.0-52.0); Hemoglobin 13.7 g/dL (11.7-16.6); Lymphocytes # 0.5 10^3/uL (0.8-4.8); Lymphocytes % 12.8 %; Mean Corpuscular HGB Conc 32.4 g/dL (30.0-36.0); Mean Corpuscular Hemoglobin 32.1 pg (28.0-34.0); Mean Corpuscular Volume 99.1 fl (80-94); Mean Platelet Volume 11.1 fL (7.4-10.4); Monocytes # 0.4 10^3/uL (0.2-0.9); Monocytes % 10.6 %; Neutrophils # 2.94 10^3/uL (1.8-7.7); Nucleated Red Blood Cells % 0 %; Platelet Count 141 10^3/cmm (130-400); Red Blood Count 4.27 10^6/uL (4.1-5.3); Red Cell Distribution Width 13.6 % (12.1-15.1)
[2021-04-16] MEDS: lidocaine 1% INJ 20 mL INJECTION (14:34)
[2021-04-16] MEDS: denosumab 120 mg SDV SUBCUT (14:50)
[2021-04-16] MEDS: goserelin acetate 10.8 mg Implant SUBCUT (14:50)
--- NOTE | 2021-04-17 17:51 | ONC FU_ITS ---
Dr. Monahan follow up note Patient: Charlie Jacobs Unit #: [id number]: 1945 Dicatated By: Daniel Monahan M.D.Date of Visit:Apr 16, 2021 Onc Med Follow-up/Prog Note History of Present Illness: Mr. Jacobs is a 76-year-old gentleman with history of prostate cancer initially diagnosed in December 2006. At that time, his PSA was 7.1 and left sided nodule biopsies showed 6 out of 12 cores positive for 3+3/3+4 AVICULTURIST with 20-60% involvement. He received external beam radiation therapy which he completed in March 2007. Follow-up PSA level showed good response but start increasing and peak prior to initiation of hormonal therapy was 6.1, patient underwent rebiopsy on 09/14/2009 which showed suspicious pathology but not diagnostic. Mr Jacobs was started on LHRH agonist in December 2009 with 2 weeks of Casodex. He had excellent response. PSA was undetectable till January 2012 thereafter slow rise e.g. 0.27 on 08/05/2012 and 2 in May 2013, 7 in November 2013 and 8.4 in March 2015. Bicalutamide was added. In September 2015 and later stopped after increasing PSA again. In April 2017 bilateral scrotal orchiectomy was done. But PSA continued to rise in January 2018 was around 19 and in April 2018,gone up to 39.58. At that time, he started on Casodex 50 mg by mouth daily and CT scan of abdomen pelvis was done on 04/25/2018 which showed no pelvic lymphadenopathy but nonspecific multifocal osseous sclerotic foci; descending sigmoid colon diverticulosis with the descending sigmoid colon junction short segment diverticulitis patient was treated with antibiotics. Zoladex 10.8 mg was started on 06/01/2018. In the meantime, Mr Jacobs developed a mass in the right side of his neck and further investigation led to the diagnosis of thyroid cancer. He underwent thyroidectomy with lymph node dissection- as per patient, cancer was involving lymph nodes. s/p radioactive iodine treatment in early June in [facility]. Mr. Jacobs was seen in the emergency room on 09/07/2018 for low back pain. He apparently had been having back pain for 2 weeks. It was described as intermittent dull and sharp pain sometimes radiating to the left hip. It has gotten progressively worse. The pain medication was only partly relieving it. He did have a CT of the lumbar spine on 09/07/2018. It showed progressive sclerotic metastatic disease along the posterior margin of the right L1 vertebral body, the superior endplates of L3 and L4, left L3 pedestal, sclerotic focus involving the right anterior aspect of the L5 body and sclerotic focus along the lateral margin of the right iliac bone. He was referred to Dr. Corarl for consideration of palliative radiation therapy. Dr. Corral did see him the same day on 09/07/2018 and did recommend palliative radiation to the lower back to control the metastatic disease and relieve pain. He was also started on Decadron 4 mg every 6 hours for 7 days in the emergency room on 09/07/2018. Mr Jacobs received radiation therapy to the spine He received 3000 cGy total dose to the SPINE GTV30 starting 09/13/2018 and ending 10/01/2018. He then received treatment to T10 spine, ref ID: [id number] Spine to a total dose of 3000 cGy starting 02/03/2019 and ending on 02/17/2019. He has had an excellent response to the radiation with his back pain resolved. He has been on denosumab since June 10, 2018 per our chart. He continues with Zoladex with his last dose being given on August 30, 2019. He also received denosumab at that time as well. He had significant elevation of his PSA on March 25, 2019 it was 44. On January 20, 2019 it was 29. It was recommended that he pursue treatment with Zytiga/prednisone and continue the every 3-month dose of Zoladex and monthly denosumab. As per patient, he went to emergency room with hypertension and abdominal discomfort. He underwent a CT scan of abdomen on the 04/09/2019 which showed nonspecific bibasilar groundglass opacity consistent with atelectasis edema or pneumonia. Unchanged size of sclerotic bone lesions. Avascular necrosis of right femoral head. Diverticulosis without diverticulitis. No hydronephrosis. His blood pressure was within normal range and pulse was between 90 and 100 and as per patient and his EKG did not show any abnormality. Patient was treated IV fluid and discharge home on oral antibiotic Flagyl for presumed diagnosis of diverticulitis, was referred to Dr. Fermin for GI evaluation, as per patient now colonoscopy is under consideration. His labs ER on 04/09/2019 shows white blood count 2.6 and globin 12.4 hematocrit 37 platelets 130,000 CMP within normal limits The zytiga /prednisone was discontinued by Mr Jacobs on 04/11/2019 because of diarrhea and hypertension. It was restarted on 05/26/2019. CT scan of thoracic lumbar spine done on June 27, 2019 showed no changes in thoracic spine. shows arthropathy and lumbar spine show slight progressed blastic lesion in L1, 8.2 mm but severe central canal stenosis in L3-4, and L4-5 and advanced arthropathy. tolerating Zytiga. Prednisone, Zoladex and Xgeva. chronic back pain for which he has seen orthopedics and now back surgery under consideration. But patient decided not to proceed with the surgery Follow-up CT scan of abdomen pelvis done on August 21, 2020 shows no metastatic disease within the chest abdomen or pelvis, stable left renal cysts, distal colon diverticulosis without diverticulitis. Several of the sclerotic foci have increased in size since March 2019 in June 2019. Specifically right eighth rib, L1 and L2 vertebral body. Progression of bony mets should be considered, bone scan recommended f/u Bone scan done on September 06, 2020 shows no new area of uptake identified but multiple areas of radionuclide uptake unchanged when compared with previous study tolerating Zoladex/abiraterone/prednisone/Xgeva well otherwise as per patient, patient underwent MRI scan of the spine and hip on December 10, 2020 which showed serpiginous T1 and T2 signal abnormality involving articular surface superior lateral femoral head compatible with avascular necrosis. Associated moderate edema in the femoral head. Moderate arthritis left hip with joint space narrowing. No suspicious enhancing lesion seen in the pelvic bones. MRI spine done on December 06, 2020 showed there are extensive bone lesions in the thoracic and lumbar spine but none of these enhance or have changed since January 25, 2019. Severe central, bilateral subarticular recess and moderate foraminal stenosis at L4-5 with mild progression since prior study. Moderate central, bilateral subarticular recess and mild foraminal stenosis at L2-3 and 3 4 Came for follow-up, denies any specific complaints, in fact, feeling much better since underwent back surgery by Dr. Oneil on March 13, 2021, as per patient his back pain has almost resolved, he was also having right hip pain for which he underwent cortisone injection for bursitis and he said he did not help him much now surgical intervention is under consideration and also having some issue with right knee and now being followed by Dr. Mustafa, orthopedics. Otherwise tolerating daily abiraterone/prednisone along with 3 monthly Zoladex and Xgeva well Denies any fever chills denies any nausea or vomiting denies any diarrhea constipation denies any dysuria or hematuria denies any new bony pains Medications: Abiraterone Acetate 1 Tablet (of 250 mg) Oral daily, Albuterol Sulfate 1 puff(s) (of (2.5 mg/3ml) 0.083%) Nebulization solution Inhalation four times a day, Alfuzosin HCl ER 1 Tablet (of 10 mg) Tablet SR 24 HR Oral at bedtime, Aspirin 1 Tablet (of 81 mg) Oral daily, Atorvastatin Calcium 1 Tablet (of 80 mg) Oral daily, Cetirizine HCl 1 Tablet (of 10 mg) Oral daily, Cyclobenzaprine HCl 0.5 - 1 Tablet (of 10 mg) Oral t.i.d. PRN, Esomeprazole Magnesium 1 Capsule (of 40 mg) Capsule Delayed Release Oral daily, Fluticasone Furoate (50 mcg/act) Aerosol Powder, Breath Activated Inhalation Take as Directed, Gabapentin 1 Tablet (of 300 mg) Capsule Oral t.i.d., HYDROcodone-Acetaminophen 1 Tablet (of 10-325 mg) Oral four times a day PRN, Ipratropium-Albuterol 1 puff(s) (of 0.5-2.5 (3) mg/3ml) Solution Inhalation q 4 hours PRN, Januvia 1 Tablet (of 25 mg) Oral daily, Jardiance 1 Tablet (of 10 mg) Oral daily, Levothyroxine Sodium 1 Tablet (of 175 mcg) Oral daily, Metoprolol Succinate ER 1 Tablet (of 25 mg) Tablet SR 24 HR Oral daily, Montelukast Sodium 1 Tablet (of 10 mg) Oral daily, Nitroglycerin 1 Tablet (of 0.4 mg) Tablet, sublingual Sublingual PRN, predniSONE 1 Tablet (of 5 mg) Oral b.i.d., ProAir HFA 1 puff(s) (of 108 (90 base) mcg/act) Aerosol, solution Inhalation q 4 hours PRN, Probiotic Digestive Support 1 Capsule Oral daily, Prochlorperazine Maleate (10 mg) Tablet Oral Take as Directed, Trelegy Ellipta 1 Puff(s) (of 100-62.5-25 mcg/inh) Aerosol Powder, Breath Activated Inhalation daily Allergies: Vancomycin HCl Review of Systems: Review of Systems is not available for this patient. Vital Signs: Performed on Apr 16, 2021 15:14 Height - 75.00 in Weight - 239.6 lbs (HIGH) BSA - 2.37 sq.m BMI - 29.95 Temperature - 98.1 F (LOW) Pulse - 94 /min Respiration - 18 /min BP - 150/74 mm(hg) (HIGH) O2 Sat - 94 % (LOW) Pain - 0 Fatigue - 6 Performance Status: 0 - Fully active, able to carry on all predisease activities without restrictions. (ECOG) Physical Examination: ENMT - No mouth sores, no thrush, no jaundice, Respiratory - Lungs are clear to auscultation , Cardiovascular - Regular rate and rhythm of heart, Abdomen - Soft, bowel sounds present, Extremities - No visible edema. Lab/Imaging: Most recent lab results are not available for this patient. Impression: Biochemical recurrence, CT scan of abdomen pelvis done on 04/25/2018 showed sclerotic lesions in the pelvic bones no pelvic lymphadenopathy or abnormal mass. History of prostrate cancer initially diagnosed in 2006 at that time his PSA was 7.1 and left-sided nodule biopsy showed 6 out of 12 cores positive for 3+3/3+ for AVICULTURIST with 20-60% involvement status post external beam radiation therapy completed in March 2007 Follow-up PSA showed excellent response till 2009 when PSA started going up underwent rebiopsy of prostate on 09/14/2009 which was nondiagnostic but suspicious for malignancy. Started on LHRH agonist in December 2009 2 weeks of Casodex, excellent response PSA become undetectable still January 2012 with slow rise thereafter e.g. 0.27 on 08/05/2012, 2 in May 2013, 7 in November 2013, 8.4 in March 2015 bicalutamide was admitted in September 2015 later stopped after PSA continued to go up, subsequently underwent bilateral scrotal orchiectomy in April 2017 PSA continued to rise around 20 on 01/28/2018 for the gone up to 39.58 in April 2018, at that time Casodex 50 mg by mouth was started and patient was referred to medical oncology clinic Zoladex 10.8 mg every 3 months started on 06/01/2018 Bone scan done on 06/01/2018 showed L3 and L4 vertebral body increased activity corresponding to the prior CT sclerosis. Left T10 and T7 lateral vertebral body or facet increase activity you from prior exam done in December 2006,. New right lateral posterior ninth rib focus of increased activity. did see Mr. Jacobs in August 2018 at which time Mr. Jacobs was having moderate to severe distress with progressive lower back pain. He was sent to the emergency room for evaluation for possible metastatic disease or prolapse/collapsed vertebra. His PSA at that time was 34.24 and his testosterone was 19.9. New right sixth and eighth anterior lateral rib focus of increased activity. Recently diagnosed with thyroid cancer status post thyroidectomy with lymph node dissection now radioactive iodine therapy was under consideration as of June 2018. Mr. Jacobs was seen in the emergency room on 09/07/2018 for low back pain. He apparently been having back pain for 2 weeks. It was described as intermittent dull and sharp pain sometimes radiating to the left hip. It has gotten progressively worse. The pain medication was only partly relieving it. He did have a CT of the lumbar spine on 09/07/2018. It showed progressive sclerotic metastatic disease along the posterior margin of the right L1 vertebral body, the superior endplates of L3 and L4, left L3 pedestal, sclerotic focus involving the right anterior aspect of the L5 body and sclerotic focus along the lateral margin of the right iliac bone. He was referred to Dr. Corral for consideration of palliative radiation therapy. Dr. Corral did see him the same day on 09/07/2018. And did recommend palliative radiation to the lower back to control the metastatic disease in relieve pain. He was also started on Decadron 4 mg every 6 hours for 7 days in the emergency room on 09/07/2018. Mr Jacobs received radiation therapy to the spine He received 3000 cGy total dose to the SPINE GTV30 starting 09/13/2018 and ending 10/01/2018. He then received treatment to T10 spine, ref ID: T10 Spine to a total dose of 3000 cGy starting 02/03/2019 and ending on 02/17/2019. He has had an excellent response to the radiation with his back pain resolved. He has been on denosumab since June 10, 2018 per our chart. He continues with Zoladex with his last dose being given on March 25, 2019. He also received denosumab at that time as well. He has had significant elevation of his PSA on March 25, 2019 it was 44. On January 20, 2019 it was 29. It has been recommended that he pursue treatment with Zytiga/prednisone and continue the every 3-month dose of Zoladex and denosumab. Persistent leukopenia, bone marrow done on July 07, 2019 showed no evidence of myelodysplasia or any other marrow abnormality, could be due to treatment with radioactive iodine follow-up bone scan done on September 06, 2020 shows no new areas of uptake, multiple areas of radionuclide uptake unchanged compared to previous study Plan: Discussed with patient regarding his labs white blood count 4 hemoglobin 13.7 hematocrit 42.3 platelets 141,000 PSA 5.24 compared to 5.75 on January 14, 2021 7.46 prior to that in December 2020 Clinically, patient doing well with no new signs symptom suggestive of disease progression, his PSA continue to improve while on daily abiraterone/prednisone and 3 monthly Zoladex and Xgeva. We will proceed with his next 3 monthly dose of Zoladex and Xgeva today while he will continue with daily abiraterone/prednisone and we will continue to monitor his PSA History of leukopenia, now resolved. Return to clinic in 3 months with CBC CMP and PSA level and for next dose of Zoladex/Xgeva Signed By: Daniel Monahan M.D. <<Signature on File>>
== END 2021-04-16 12:22 | disposition home or self-care (01) ==
PROVIDERS: PCP Family Medicine; Visit Provider Internal Medicine Hematology & Oncology
DX: Z51.11 Encounter for antineoplastic chemotherapy (principal); C61 Malignant neoplasm of prostate; Z90.79 Acquired absence of other genital organ(s); M54.59 Other low back pain; Z85.850 Personal history of malignant neoplasm of thyroid; E89.0 Postprocedural hypothyroidism; Z92.3 Personal history of irradiation; Z79.818 Long term (current) use of other agents affecting estrogen receptors and estrogen levels
CPT/HCPCS: 36415; 84153; 85025; 96372; 96402; 99215; J0897; J9202

== ENCOUNTER → 2021-05-06 09:04 | Outpatient (BNVA) | payer MEDICARE, MEDICAID, SELFPAY | PROVIDERS: PCP Family Medicine; Visit Provider Specialist | DX: M70.61 Trochanteric bursitis, right hip (principal) | CPT/HCPCS: 73502 ==

== ENCOUNTER → 2021-06-04 10:48 | Outpatient (BNVA) | payer MEDICARE, MEDICAID, SELFPAY | PROVIDERS: PCP Family Medicine; Visit Provider Orthopaedic Surgery | DX: Z47.89 Encounter for other orthopedic aftercare (principal); Z98.890 Other specified postprocedural states | CPT/HCPCS: 99024 ==

== ENCOUNTER → 2021-06-26 08:40 | Outpatient (BNVA) | payer MEDICARE, MEDICAID, SELFPAY | PROVIDERS: PCP Family Medicine; Referring Provider Family Medicine; Visit Provider Surgery | DX: K21.9 Gastro-esophageal reflux disease without esophagitis (principal); R10.9 Unspecified abdominal pain; R11.2 Nausea with vomiting, unspecified; R14.2 Eructation | CPT/HCPCS: 36415; 84432; 84443; 86800; 99203 ==

== ENCOUNTER 2021-07-05 06:11 | Day surgery (SDC) | payer MEDICARE, MEDICAID, SELFPAY ==
[2021-07-02 12:44] VITALS: BMI 28.2
[2021-07-05 06:30] VITALS: BP 145/76; PULSE 81; RESP 18; TEMP 36.1; O2SAT 94
[2021-07-05] MEDS: sodium chloride 0.9% 1,000 ML 30 ML IV (06:44)
--- NOTE | 2021-07-05 06:52 | ANES.PREANE2 ---
Pre-Anesthetic Assessment Height/Weight: Height 1.91 m Weight 102.512 kg Temp Pulse Resp BP Pulse Ox 97 F L 81 18 145/76 94 07/05/21 06:30 07/05/21 06:30 07/05/21 06:30 07/05/21 06:30 07/05/21 06:30 Preop Diagnosis: Lumbar stenosis with neurogenic claudication Operation Date: 07/05/21 08:00 Proposed Procedures p EGD 45051/K21.9(Not Applicable) - Edy Handley DO Familial anesthetic complications: NOne Was Beta Michelle taken within 24 hours: Yes Was Clonidine taken within 24 hours: N/A Last intake: Intake Last Liquid Date 07/04/21 Last Liquid Time 21:30 Last Solid Date 07/04/21 Last Solid Time 17:30 Social Tobacco and No alcohol Exam alert, oriented x 3, clear to auscultation bilaterally and regular rate & rhythm Airway Mallampati: Class III Dentition: other (no teeth) Pulmonary Chronic Obstructive Pulmonary Disease (2 L NC prn more often at evenign times) CV/HEM Coronary Artery Disease and Hypertension None reported Hepatic None reported GI Gastroesophageal Reflux Disease Metabolic Diabetes Mellitus and Thyroid Disease Musc/skel Lower Back Pain Neuropsych None reported Anesthetic Plan ASA status: 4 Anesthesia: MAC Risk of > 500 ml blood loss (7ml/kg in children): No Medications/Allergies Home Medications Medication Instructions Recorded Confirmed Last Taken Type albuterol sulfate 90 mcg/actuation 2 puff INHALATION Q6H PRN 03/29/19 07/04/21 03/12/21 History aerosol inhaler (ProAir HFA) aspirin 81 mg tablet,delayed 81 mg PO DAILY 03/29/19 07/05/21 07/04/21 History release cetirizine 10 mg capsule (All Day 10 mg PO DAILY cap 03/29/19 07/05/21 07/04/21 History Allergy (cetirizine)) cyclobenzaprine 10 mg tablet 10 mg PO TID 03/29/19 07/05/21 07/04/21 History levothyroxine 175 mcg capsule 175 mcg PO DAILY 03/29/19 07/05/21 07/05/21 History abiraterone 250 mg tablet (Zytiga) 250 mg PO DAILY tab 02/15/20 07/05/21 07/04/21 History prochlorperazine maleate 10 mg 10 mg PO Q6H PRN 02/15/20 07/05/21 07/04/21 History tablet albuterol sulfate 2.5 mg INHALATION Q4H PRN 06/08/20 07/04/21 03/12/21 History atorvastatin 80 mg tablet 80 mg PO DAILY #90 tab 12/25/20 07/05/21 07/04/21 Rx metoprolol succinate 25 mg 25 mg PO DAILY #90 tab 12/25/20 07/04/21 03/13/21 Rx tablet,extended release 24 hr sitagliptin 100 mg tablet (Januvia) 100 mg PO DAILY #90 tab 12/25/20 07/05/21 07/04/21 Rx gabapentin 300 mg capsule 300 mg PO TID #90 cap 01/18/21 07/05/21 07/04/21 Rx (Neurontin) nitroglycerin 0.4 mg sublingual 0.4 mg SUBLINGUAL Q5M PRN #30 tab 01/18/21 07/05/21 11/30/19 Rx tablet (Nitrostat) montelukast 10 mg tablet 10 mg PO DAILY #90 tab 03/20/21 07/05/21 07/04/21 Rx empagliflozin 10 mg tablet 10 mg PO DAILY 90 Days #90 tab 04/30/21 07/05/21 07/04/21 Rx (Jardiance) alfuzosin 10 mg tablet,extended 10 mg PO DAILY #90 tab 05/28/21 07/05/21 07/04/21 Rx release 24 hr esomeprazole magnesium 40 mg 40 mg PO BID #180 cap 05/28/21 07/05/21 07/04/21 Rx capsule,delayed release (Nexium) ondansetron HCl 4 mg tablet 4 mg PO Q8H PRN #30 tab 05/28/21 07/05/21 07/04/21 Rx Probiotic 1 tab PO DAILY 07/02/21 07/05/21 07/04/21 History fluticasone fur. 100 mcg-umeclid 1 ea INHALATION DAILY 07/02/21 07/04/21 Unknown History 62.5 mcg-vilant 25 mcg inhalat.powder (Trelegy Ellipta) fluticasone propionate 50 1 spray INTRANASAL BID 07/02/21 07/05/21 07/04/21 History mcg/actuation nasal spray,suspension (Flonase Allergy Relief) hydrocodone 5 mg-acetaminophen 325 1 tab PO Q4H PRN 07/02/21 07/05/21 07/04/21 History mg tablet prednisone 5 mg tablet 5 mg PO BID 07/02/21 07/05/21 07/04/21 History clotrimazole-betamethasone 1 1 applic TOPICAL BID #45 g 07/04/21 07/05/21 07/04/21 Rx %-0.05 % topical cream vitamin B complex (B 1 tab PO DAILY #90 tab 07/04/21 07/05/21 07/04/21 Rx Complex-Vitamin B12) Allergies Allergy/AdvReac Type Severity Reaction Status Date / Time vancomycin Allergy HIVES,RASH Verified 07/04/21 07:48 PFSH Anesthesia Medical History (Updated 07/04/21 @ 08:20 by Iggy Gaona MD) Acute vesicular eczema of foot Benign essential HTN BPH with obstruction/lower urinary tract symptoms Burning sensation of feet COPD (chronic obstructive pulmonary disease) Dyslipidemia GERD (gastroesophageal reflux disease) History of diverticulitis History of thyroid cancer Hypogonadism in male Insomnia Intervertebral disc disorder with radiculopathy of lumbosacral region Lumbar stenosis with neurogenic claudication Metastasis to bone Post-surgical hypothyroidism Prostate cancer Type 2 diabetes mellitus, without long-term current use of insulin Surgical History (Updated 07/04/21 @ 08:20 by Iggy Gaona MD) H/O hernia repair H/O total knee replacement History of colonoscopy (07/12/19) diverticulosis, repeat 10 years History of hemorrhoidectomy History of lumbar discectomy History of orchiectomy, bilateral History of thyroidectomy, subtotal History of uvulectomy Family History Mother Cancer Diabetes Sister Diabetes Other CAD (coronary artery disease) Social History Smoking and tobacco status: current every day smoker Alcohol intake: never Lives independently: Yes Household members: spouse Marital status: Current occupational status: retired History of recent travel: No Data Anesthesia Cardiac Studies: No Data to Display
--- NOTE | 2021-07-05 08:27 | W.PM.OPSUD ---
Surgery/Procedure H&P Update DATE OF PROCEDURE: July 05, 2021 DATE H&P PERFORMED: 06/26/21 CHANGES TO PREVIOUS DOCUMENTATION: none PREOP DIAGNOSIS: Lumbar stenosis with neurogenic claudication PLANNED PROCEDURE: Operation Date: 07/05/21 08:00 Proposed Procedures p EGD 19476/K21.9(Not Applicable) - Edy Handley DO
[2021-07-05 08:46] VITALS: BP 143/77; PULSE 71; RESP 14; TEMP 36.2; O2SAT 92
[2021-07-05 08:51] VITALS: BP 125/79; PULSE 63; RESP 16; O2SAT 93
--- NOTE | 2021-07-05 08:58 | PC.NURSE ---
0846 blood on gown my mouth. suctioned out oral airway, respirations even and nonlabored. pt arousable by voice.
[2021-07-05 09:01] VITALS: BP 135/89; PULSE 67; RESP 18; O2SAT 93
--- NOTE | 2021-07-05 09:11 | SUR.EXTENDED ---
patient assisted up to bathroom per request. passing flatus
--- NOTE | 2021-07-05 14:44 | ANE.PACU2 ---
Inpatient post-anesthesia follow up: Airway intact: Yes Vital signs: Temperature 97.1 F Pulse Rate 67 Respiratory Rate 18 Blood Pressure 135/89 Pulse Oximetry 93 Oxygen Delivery Me thod Room Air Oxygen Flow Rate 3 Fraction of Inspir ed Oxygen Hydration adequate: Yes Nausea and vomiting: No Pain level: 1 Mental status: Baseline
== END 2021-07-05 09:15 | disposition home or self-care (01) ==
PROVIDERS: PCP Family Medicine; Visit Provider Surgery
PROC: 0DJ08ZZ Inspection of Upper Intestinal Tract, Via Natural or Artificial Opening Endoscopic (ICD-10-PCS; CPT 43235; principal; 2021-07-05 08:00)
DX: K21.9 Gastro-esophageal reflux disease without esophagitis (principal); K22.70 Barrett's esophagus without dysplasia; J44.9 Chronic obstructive pulmonary disease, unspecified; Z99.81 Dependence on supplemental oxygen; Z79.82 Long term (current) use of aspirin; I10 Essential (primary) hypertension; N40.1 Benign prostatic hyperplasia with lower urinary tract symptoms; E78.5 Hyperlipidemia, unspecified; Z85.46 Personal history of malignant neoplasm of prostate; E11.9 Type 2 diabetes mellitus without complications; F17.200 Nicotine dependence, unspecified, uncomplicated
CPT/HCPCS: 43239; 88305; J2704; J7030

== ENCOUNTER → 2021-07-12 10:44 | Outpatient (BNVA) | payer MEDICARE, MEDICAID, SELFPAY | PROVIDERS: PCP Family Medicine; Visit Provider Podiatrist Foot & Ankle Surgery | DX: L60.3 Nail dystrophy (principal); B35.3 Tinea pedis; E13.620 Other specified diabetes mellitus with diabetic dermatitis; L30.9 Dermatitis, unspecified | CPT/HCPCS: 99204 ==

== ENCOUNTER 2021-07-16 12:41 | Outpatient (CLI) | payer MEDICARE, MEDICAID, SELFPAY ==
--- NOTE | 2021-07-16 13:45 | USCV_ITS ---
Charlie Jacobs Age: 76 Gender: M : 1945 Exam Date: 07/16/2021 13:16 Ordering Phys: Joann Knowles DO Technologist: OMARI Exam Location: [facility] [place] Indication: LLE PAIN AND SWELLING HISTORY: Lower extremity swelling. Lower extremity pain. PROCEDURES: Venous duplex imaging was performed in only the left lower extremity. The following venous structures were evaluated: common femoral vein, profunda vein, proximal portion of the greater saphenous vein, superficial femoral vein, and the popliteal vein. In addition, the posterior tibial and peroneal trunk were evaluated. Serial compression, augmentation maneuvers, and spectral Doppler flow evaluation were performed. FINDINGS: + DVT seen in Left Popliteal vein and into both peroneal veins. All other veins appear patent. US Tech spoke with Shannon at Doctor's office which instructed the patient to go to ordering doctor's office to be seen. CONCLUSIONS DVT Left popliteal and peroneal veins. Remainder LLE veins patent. Screw Supervisor spoke with Shannon at Physician office. Instructed patient to go to [facility] to be seen Omid Grubbs MD (Electronically Signed) Final Date: 16 July 2021 16:15 S
== END 2021-07-16 12:42 | disposition home or self-care (01) ==
LOC: RAD 12:43
PROVIDERS: PCP Family Medicine; Visit Provider Family Medicine
DX: R60.0 Localized edema (principal); M79.89 Other specified soft tissue disorders; I82.432 Acute embolism and thrombosis of left popliteal vein
CPT/HCPCS: 93971

== ENCOUNTER → 2021-07-18 14:25 | Outpatient (BNVA) | payer MEDICARE, MEDICAID, SELFPAY | PROVIDERS: PCP Family Medicine; Visit Provider Surgery | DX: Z09 Encounter for follow-up examination after completed treatment for conditions other than malignant neoplasm (principal); R10.9 Unspecified abdominal pain | CPT/HCPCS: 99211; 99212; G0463 ==

== ENCOUNTER 2021-07-19 09:10 | Oncology outpatient (recurring) (ONCR) | payer MEDICARE, MEDICAID, SELFPAY ==
[2021-07-19] MEDS: lidocaine 1% INJ 20 mL SUBCUT (09:55)
[2021-07-19] MEDS: denosumab 120 mg SDV SUBCUT (09:59)
[2021-07-19] MEDS: goserelin acetate 10.8 mg Implant SUBCUT (10:09)
== END 2021-08-08 23:59 | disposition home or self-care (01) ==
PROVIDERS: PCP Family Medicine; Referring Provider Urology; Visit Provider Nurse Practitioner Family
DX: C61 Malignant neoplasm of prostate (principal); C79.51 Secondary malignant neoplasm of bone; D70.1 Agranulocytosis secondary to cancer chemotherapy; T45.1X5A Adverse effect of antineoplastic and immunosuppressive drugs, initial encounter; Z79.52 Long term (current) use of systemic steroids; Z79.818 Long term (current) use of other agents affecting estrogen receptors and estrogen levels; Z79.899 Other long term (current) drug therapy; Z92.3 Personal history of irradiation
CPT/HCPCS: 96372; 96402; 99214; J0897; J9202

== ENCOUNTER → 2021-07-22 10:00 | Outpatient (BNVA) | payer MEDICARE, MEDICAID, SELFPAY | PROVIDERS: PCP Family Medicine; Referring Provider Family Medicine; Visit Provider Specialist | DX: M25.562 Pain in left knee (principal); G89.29 Other chronic pain; Z96.659 Presence of unspecified artificial knee joint; I82.432 Acute embolism and thrombosis of left popliteal vein; M25.561 Pain in right knee | CPT/HCPCS: 73560; 73565; 99213; 99214 ==

== ENCOUNTER → 2021-07-31 08:51 | Outpatient (BNVA) | payer MEDICARE, MEDICAID, SELFPAY | PROVIDERS: PCP Family Medicine; Visit Provider Podiatrist Foot & Ankle Surgery | DX: R21 Rash and other nonspecific skin eruption (principal); L60.3 Nail dystrophy; L30.9 Dermatitis, unspecified; E13.620 Other specified diabetes mellitus with diabetic dermatitis; B35.3 Tinea pedis | CPT/HCPCS: 99213; 99214 ==

== ENCOUNTER → 2021-08-14 16:07 | Outpatient (BNVA) | payer MEDICARE, MEDICAID, SELFPAY | PROVIDERS: PCP Family Medicine; Visit Provider Family Medicine | DX: I82.432 Acute embolism and thrombosis of left popliteal vein (principal); A08.4 Viral intestinal infection, unspecified; E78.5 Hyperlipidemia, unspecified; R30.0 Dysuria | CPT/HCPCS: 87077; 87086; 87184 ==

== ENCOUNTER → 2021-09-04 08:36 | Outpatient (BNVA) | payer MEDICARE, MEDICAID, SELFPAY | PROVIDERS: PCP Family Medicine; Visit Provider Podiatrist Foot & Ankle Surgery | DX: E11.8 Type 2 diabetes mellitus with unspecified complications (principal); E11.620 Type 2 diabetes mellitus with diabetic dermatitis; B35.3 Tinea pedis; R21 Rash and other nonspecific skin eruption; L60.3 Nail dystrophy; L30.9 Dermatitis, unspecified | CPT/HCPCS: 99214 ==

== ENCOUNTER → 2021-09-09 10:02 | Outpatient (BNVA) | payer MEDICARE, MEDICAID, SELFPAY | PROVIDERS: PCP Family Medicine; Referring Provider Family Medicine; Visit Provider Internal Medicine | DX: C73 Malignant neoplasm of thyroid gland (principal); E89.0 Postprocedural hypothyroidism; F17.200 Nicotine dependence, unspecified, uncomplicated | CPT/HCPCS: 36415; 84432; 84439; 84443; 86376; 86800; 99204 ==

== ENCOUNTER → 2021-10-01 12:23 | Outpatient (BNVA) | payer MEDICARE, MEDICAID, SELFPAY | PROVIDERS: PCP Family Medicine; Referring Provider Specialist; Visit Provider Specialist | DX: G62.89 Other specified polyneuropathies (principal) | CPT/HCPCS: 95909; 95911 ==

== ENCOUNTER 2021-10-11 06:00 | Outpatient (RCR) | payer MEDICARE, MEDICAID, SELFPAY | END 2021-11-08 23:59 | disposition home or self-care (01) | LOC: SPT 06:00 | PROVIDERS: PCP Family Medicine; Visit Provider Family Medicine | DX: H81.10 Benign paroxysmal vertigo, unspecified ear (principal) | CPT/HCPCS: 95992; 97162 ==

== ENCOUNTER 2021-10-16 07:23 | Outpatient (CLI) | payer MEDICARE, MEDICAID, SELFPAY ==
--- NOTE | 2021-10-16 07:45 | US_ITS ---
WS: [id number] RIGHT UPPER QUADRANT ULTRASOUND HISTORY: Abd pain COMPARISON: 02/04/2006 Liver: 18.0 cm in length. Mildly enlarged liver. Coarse echotexture. No mass identified. Portal Vein: Normal hepatopetal flow with monophasic waveform. Gallbladder: Normally distended gallbladder with no stones or wall thickening. CBD: 0.5 cm Pancreas: Poorly visualized. Head and tail are not seen. Body is normal. Right kidney: 11.7 cm in length. Normal size kidney. New exophytic hypoechoic mass within the superio r cortex measures 1.3 x 0.9 x 1.2 cm. This was not present on the prior CT from 08/21/2020. No hydrone phrosis. Aorta and IVC: Mild atherosclerotic disease. No aneurysm. No ascites. US/US gall bladder 29585 IMPRESSION: 1. Normal gallbladder. 2. Hypoechoic mass exophytic superior pole RIGHT kidney measures 1.3 x 0.9 x 1 .2 cm. Not present on the prior study of 08/21/2020. Recommend renal mass CT pro tocol follow-up.
== END 2021-10-16 07:24 | disposition home or self-care (01) ==
PROVIDERS: PCP Family Medicine; Visit Provider Surgery
DX: R10.9 Unspecified abdominal pain (principal); N28.89 Other specified disorders of kidney and ureter
CPT/HCPCS: 76705

== ENCOUNTER 2021-10-22 09:55 | Oncology outpatient (recurring) (ONCR) | payer MEDICARE, MEDICAID, SELFPAY ==
[2021-10-22 10:18] LABS: Basophils % 0.6 %; Eosinophils % 1.1 %; Hematocrit 42.3 % (42.0-52.0); Hemoglobin 13.6 g/dL (11.7-16.6); Lymphocytes # 0.7 10^3/uL (0.8-4.8); Mean Corpuscular HGB Conc 32.2 g/dL (30.0-36.0); Mean Corpuscular Hemoglobin 31.4 pg (28.0-34.0); Mean Corpuscular Volume 97.7 fl (80-94); Mean Platelet Volume 11.2 fL (7.4-10.4); Monocytes # 0.4 10^3/uL (0.2-0.9); Monocytes % 10.8 %; Neutrophils # 2.31 10^3/uL (1.8-7.7); Neutrophils % 65.6 %; Nucleated Red Blood Cells % 0 %; Platelet Count 122 10^3/cmm (130-400); Red Blood Count 4.33 10^6/uL (4.1-5.3); Red Cell Distribution Width 14.3 % (12.1-15.1); White Blood Count 3.5 10^3/uL (4.0-10.0)
[2021-10-22 10:57] LABS: Alanine Aminotransferase 17 U/L (0-41); Albumin Level 3.6 g/dL (3.5-5.2); Alkaline Phosphatase 69 U/L (40-130); Anion Gap 15.3 (5-19); Aspartate Amino Transferase 17 U/L (0-40); Blood Urea Nitrogen 19 mg/dL (8-23); Carbon Dioxide 27 mmol/L (22-29); Chloride 105 mmol/L (98-107); Globulin 3.3 g/dL (1.3-4.6); Glucose 137 mg/dL (65-115); Osmolality Calculated 300 mOsm/kg (285-295); Potassium 4.3 mmol/L (3.5-5.1); Sodium 143 mmol/L (136-145); Total Bilirubin 0.4 mg/dL (0.15-1.2); Total Protein 6.9 g/dL (6.6-8.7)
[2021-10-22] MEDS: leuprolide 22.5 mg Kit IM (13:47)
[2021-10-22] MEDS: denosumab 120 mg SDV SUBCUT (13:49)
== END 2021-11-08 23:59 | disposition home or self-care (01) ==
PROVIDERS: Nurse Practitioner; PCP Family Medicine; Visit Provider Nurse Practitioner Family
DX: C61 Malignant neoplasm of prostate (principal); C79.51 Secondary malignant neoplasm of bone; K57.30 Diverticulosis of large intestine without perforation or abscess without bleeding; K57.32 Diverticulitis of large intestine without perforation or abscess without bleeding; M51.36 Other intervertebral disc degeneration, lumbar region; M48.061 Spinal stenosis, lumbar region without neurogenic claudication; M87.9 Osteonecrosis, unspecified; I82.402 Acute embolism and thrombosis of unspecified deep veins of left lower extremity; F17.210 Nicotine dependence, cigarettes, uncomplicated; Z79.01 Long term (current) use of anticoagulants; Z79.52 Long term (current) use of systemic steroids; Z79.818 Long term (current) use of other agents affecting estrogen receptors and estrogen levels; Z79.899 Other long term (current) drug therapy
CPT/HCPCS: 36415; 80053; 84153; 85025; 96372; 96402; 99214; J0897; J9217

== ENCOUNTER 2021-10-23 09:11 | Outpatient (CLI) | payer MEDICARE, MEDICAID, SELFPAY ==
--- NOTE | 2021-10-23 09:26 | NM_ITS ---
WS: [id number] THREE-PHASE BONE SCAN HISTORY: knee pain, bilateral. Prior knee replacements. History of prostate cancer with metastatic di sease. COMPARISON: 09/06/2020 bone scan and knee radiograph 07/22/2020 Patient is is injected with 24.2 mCi Tc99m HDP intravenously. Immediate angiographic phase imaging is performed over the area of concern. Static blood pool imaging also performed. Two-hour whole-body sc intigrams performed in anterior and posterior projections. Additional large field of view imaging sub mitted as necessary. Angiographic and blood pool phase imaging centered over the knees demonstrates no focal area of abnor mal uptake. No hyperemia or pooling of blood. Photopenic defects are noted over the knee prostheses a re present. The appearance of the knee and the prostheses are very similar to the prior study of 09/06/2020. There are additional foci of increased uptake within the ribs and spine including the RIGHT ninth rib , bilateral pedicles of L5, LEFT T11 pedicle. These findings were present on the prior study consiste nt with treated prostate cancer. No progression. Normal soft tissue uptake. There is a focal area of intense uptake involving the superior pole of the LEFT kidney. This was not present on the prior stud y. May be retained tracer within the obstructed calyx. Recommend additional imaging. NM/NM bone 3 phase [id number] IMPRESSION: 1. No osteomyelitis involving either knee prosthesis. Normal symmetric appeara nce of the knees. No loosening or abnormal uptake. 2. Patient has known previously described metastatic prostate cancer to the sidney marcelino as described above. No change. 3. There is a new focal area of increased uptake involving upper pole of the L EFT kidney. This could be related to an obstructed calyx. As this is a new find ing recommend additional evaluation. Recommend [address] or renal ultras ound. Evaluate for an obstructing uroepithelial lesion.
== END 2021-10-23 09:12 | disposition home or self-care (01) ==
LOC: RAD 09:13
PROVIDERS: PCP Family Medicine; Visit Provider Specialist
DX: M25.562 Pain in left knee (principal); M25.561 Pain in right knee; Z96.653 Presence of artificial knee joint, bilateral; C61 Malignant neoplasm of prostate; C79.51 Secondary malignant neoplasm of bone
CPT/HCPCS: 78315; A9561

== ENCOUNTER → 2021-11-05 14:14 | Outpatient (BNVA) | payer MEDICARE, MEDICAID, SELFPAY | PROVIDERS: PCP Family Medicine; Visit Provider Surgery | DX: Z09 Encounter for follow-up examination after completed treatment for conditions other than malignant neoplasm (principal); R10.9 Unspecified abdominal pain; N28.89 Other specified disorders of kidney and ureter | CPT/HCPCS: 99212 ==

== ENCOUNTER 2021-11-06 10:22 | Outpatient (CLI) | payer MEDICARE, MEDICAID, SELFPAY ==
[2021-11-06 11:00] LABS: Basophils % 0.5 %; Eosinophils # 0.1 10^3/uL (0.0-0.8); Eosinophils % 1.6 %; Hematocrit 42.4 % (42.0-52.0); Hemoglobin 13.7 g/dL (11.7-16.6); Lymphocytes # 0.8 10^3/uL (0.8-4.8); Lymphocytes % 20.8 %; Mean Corpuscular HGB Conc 32.3 g/dL (30.0-36.0); Mean Corpuscular Hemoglobin 31.6 pg (28.0-34.0); Mean Corpuscular Volume 97.7 fl (80-94); Mean Platelet Volume 11.2 fL (7.4-10.4); Monocytes # 0.5 10^3/uL (0.2-0.9); Monocytes % 13.2 %; Neutrophils # 2.36 10^3/uL (1.8-7.7); Neutrophils % 63.6 %; Nucleated Red Blood Cells % 0 %; Platelet Count 135 10^3/cmm (130-400); Red Blood Count 4.34 10^6/uL (4.1-5.3); Red Cell Distribution Width 14.6 % (12.1-15.1); White Blood Count 3.7 10^3/uL (4.0-10.0)
[2021-11-06 11:34] LABS: Alanine Aminotransferase 16 U/L (0-41); Albumin Level 3.7 g/dL (3.5-5.2); Alkaline Phosphatase 79 U/L (40-130); Anion Gap 12.1 (5-19); Aspartate Amino Transferase 21 U/L (0-40); Blood Urea Nitrogen 17 mg/dL (8-23); Calcium 8.8 mg/dL (8.5-10.5); Carbon Dioxide 29 mmol/L (22-29); Chloride 108 mmol/L (98-107); Globulin 3.1 g/dL (1.3-4.6); Glucose 119 mg/dL (65-115); Osmolality Calculated 301 mOsm/kg (285-295); Potassium 5.1 mmol/L (3.5-5.1); Sodium 144 mmol/L (136-145); Total Bilirubin 0.3 mg/dL (0.15-1.2); Total Protein 6.8 g/dL (6.6-8.7)
== END 2021-11-06 10:23 | disposition home or self-care (01) ==
LOC: LAB 10:27
PROVIDERS: Internal Medicine Hematology & Oncology; PCP Family Medicine; Visit Provider Internal Medicine
DX: C73 Malignant neoplasm of thyroid gland (principal); E13.620 Other specified diabetes mellitus with diabetic dermatitis; B35.3 Tinea pedis; R21 Rash and other nonspecific skin eruption; L60.3 Nail dystrophy; L30.9 Dermatitis, unspecified
CPT/HCPCS: 36415; 80053; 84153; 85025; 99214

== ENCOUNTER → 2021-11-14 09:52 | Outpatient (BNVA) | payer MEDICARE, MEDICAID, SELFPAY | PROVIDERS: PCP Family Medicine; Visit Provider Internal Medicine | DX: G47.01 Insomnia due to medical condition (principal); C73 Malignant neoplasm of thyroid gland; E89.0 Postprocedural hypothyroidism; F17.210 Nicotine dependence, cigarettes, uncomplicated | CPT/HCPCS: 36415; 84432; 84439; 84443; 86800; 99214 ==

== ENCOUNTER → 2021-11-28 08:30 | Outpatient (BNVA) | payer MEDICARE, MEDICAID, SELFPAY | PROVIDERS: PCP Family Medicine; Visit Provider Specialist | DX: E11.40 Type 2 diabetes mellitus with diabetic neuropathy, unspecified (principal); Z79.84 Long term (current) use of oral hypoglycemic drugs | CPT/HCPCS: 95860; 99202 ==

== ENCOUNTER → 2021-12-12 10:24 | Outpatient (BNVA) | payer MEDICARE, MEDICAID, SELFPAY | PROVIDERS: PCP Family Medicine; Visit Provider Family Medicine | DX: E78.5 Hyperlipidemia, unspecified (principal); E11.9 Type 2 diabetes mellitus without complications; L03.316 Cellulitis of umbilicus | CPT/HCPCS: 80061; 82043; 83036 ==

== ENCOUNTER 2021-12-20 07:46 | Outpatient (CLI) | payer MEDICARE, MEDICAID, SELFPAY ==
--- NOTE | 2021-12-20 10:00 | NM_ITS ---
WS: [id number] NUCLEAR MEDICINE HIDA SCAN WITH GALLBLADDER EJECTION FRACTION HISTORY: R10.9 - Unspecified abdominal pain COMPARISON: Gallbladder ultrasound 10/17/2019 TECHNIQUE: The patient was intravenously injected with 5.8 mCi of TC99m Mebrofenin. Immediate imaging over the right upper quadrant was followed by 5 minute image and additional images for a total of 60 minutes. Normal uptake of radiotracer throughout the liver. Activity identified in the gallbladder at 10 minutes and well distended by 60 minutes. Activity in the proximal small bowel was seen by 40 minutes. Good washout of the radiotracer from the liver by 60 minutes. The patient then drank 8 ounces of Ensure Plus. Ejection fraction at 60 minutes was 86%. Normal GB ej ection fraction is 35-75%. Post fatty meal symptoms: None. NM/NM hepatobiliary w phar* [id number] IMPRESSION: 1. Normal HIDA scan. 2. Normal gallbladder ejection fraction.
== END 2021-12-20 07:47 | disposition home or self-care (01) ==
PROVIDERS: PCP Family Medicine; Visit Provider Surgery
DX: R10.9 Unspecified abdominal pain (principal)
CPT/HCPCS: 78227; A9537

== ENCOUNTER 2021-12-23 07:43 | Outpatient (CLI) | payer MEDICARE, MEDICAID, SELFPAY ==
[2021-12-23] MEDS: iohexol 350 mg/mL 500 mL Btl (per mL) IV (09:13)
[2021-12-23] MEDS: iohexol 350 mg/mL 500 mL Btl (per mL) PO (09:14)
--- NOTE | 2021-12-23 09:30 | CT_ITS ---
WS: [id number] CT ABDOMEN PELVIS TECHNIQUE: Noncontrast CT of the abdomen and contrast-enhanced CT of the abdomen and pelvis with lavon nal and sagittal reformatted images. CLINICAL INFORMATION: N28.89 - Other specified disorders of kidney and ureter COMPARISON: CT August 21, 2020 and bone scan October 23, 2021 DLP: 3879.[address] scans at [facility] use at least one of these dose optimization techniques: automated e xposure control; mA and/or kV adjustment per patient size (includes targeted exams where dose is matc hed to clinical indication); or iterative reconstruction. FINDINGS: LEFT upper pole renal cyst measuring 4.4 x 4.9 cm increased slightly in size compared to Ju 2020. LEFT lower pole cortical cyst measuring 14 mm. No hydronephrosis in either kidney. No ob structing lesions in the LEFT kidney. Normal renal parenchymal enhancement bilaterally. Mild diffuse fatty infiltration liver. Portal vein and splenic vein. Normal pancreatic parenchymal en hancement. Lung bases are well aerated. Normal GE junction. Normal caliber abdominal aorta. Moderate aortic atheromatous disease. Slightly ectatic distal abdominal aorta measuring 2.1 x 2.3 cm AP by tra nsverse. Urine distended bladder. Prostate calcification. Small cystocele. Sigmoid diverticulosis. No evidence of acute diverticulitis. Normal appendix in the RIGHT lower quadrant. Tiny fat-containing umbilical hernia. Previously described sclerotic foci involving the RIGHT 8th rib, L1, L2, L3, L4, and L5 vertebral bod ies are stable. A few small sclerotic foci in the pelvic bony structures are stable. Stable additiona l RIGHT greater than LEFT rib lesions. Sclerosis RIGHT femoral head compatible with avascular necrosi s unchanged from August 21, 2020. CT/CT abdomen pelvis wo/w [id number] IMPRESSION: 1. No obstructing renal or ureteral lesions. 2. LEFT upper pole renal cyst measuring 4.4 x 5.0 cm increased slightly in siz e compared to previous. 3. Multiple sclerotic metastasis unchanged. 4. No abdominal or pelvic lymphadenopathy. 5. Sclerosis RIGHT femoral head compatible with avascular necrosis unchanged f rom August 21, 2020. 6. No other significant interval changes.
== END 2021-12-23 07:44 | disposition home or self-care (01) ==
PROVIDERS: PCP Family Medicine; Visit Provider Surgery
DX: N28.89 Other specified disorders of kidney and ureter (principal); N28.1 Cyst of kidney, acquired
CPT/HCPCS: 74178

== ENCOUNTER → 2022-01-10 12:07 | Outpatient (BNVA) | payer MEDICARE, MEDICAID, SELFPAY | PROVIDERS: PCP Family Medicine; Visit Provider Surgery | DX: R10.11 Right upper quadrant pain (principal); Z09 Encounter for follow-up examination after completed treatment for conditions other than malignant neoplasm; N28.1 Cyst of kidney, acquired | CPT/HCPCS: 99212 ==

== ENCOUNTER 2022-01-14 14:28 | Outpatient (CLI) | payer MEDICARE, MEDICAID, SELFPAY ==
[2022-01-14 15:01] LABS: Basophils % 0.6 %; Eosinophils # 0.1 10^3/uL (0.0-0.8); Eosinophils % 0.9 %; Hematocrit 43.5 % (42.0-52.0); Hemoglobin 14.3 g/dL (11.7-16.6); Lymphocytes # 0.6 10^3/uL (0.8-4.8); Lymphocytes % 11.6 %; Mean Corpuscular HGB Conc 32.9 g/dL (30.0-36.0); Mean Corpuscular Volume 100.5 fl (80-94); Mean Platelet Volume 11.2 fL (7.4-10.4); Monocytes # 0.6 10^3/uL (0.2-0.9); Monocytes % 11.8 %; Neutrophils # 4.06 10^3/uL (1.8-7.7); Neutrophils % 74.5 %; Nucleated Red Blood Cells % 0 %; Platelet Count 143 10^3/cmm (130-400); Red Blood Count 4.33 10^6/uL (4.1-5.3); Red Cell Distribution Width 12.4 % (12.1-15.1); White Blood Count 5.4 10^3/uL (4.0-10.0)
[2022-01-14 15:38] LABS: Alanine Aminotransferase 12 U/L (0-41); Albumin Level 3.6 g/dL (3.5-5.2); Alkaline Phosphatase 91 U/L (40-130); Anion Gap 11.1 (5-19); Aspartate Amino Transferase 11 U/L (0-40); Blood Urea Nitrogen 12 mg/dL (8-23); Calcium 9.2 mg/dL (8.5-10.5); Carbon Dioxide 32 mmol/L (22-29); Chloride 100 mmol/L (98-107); Globulin 3.3 g/dL (1.3-4.6); Glucose 148 mg/dL (65-115); Osmolality Calculated 291 mOsm/kg (285-295); Potassium 4.1 mmol/L (3.5-5.1); Sodium 139 mmol/L (136-145); Testosterone Total 2.5 ng/dL (193-740); Thyroid Stimulating Hormone 0.02 uIU/mL (0.27-4.20); Total Bilirubin 0.3 mg/dL (0.15-1.2); Total Protein 6.9 g/dL (6.6-8.7)
[2022-01-15 17:35] LABS: Thyroglobulin AB 10 IU/mL (< or = 1)
[2022-01-23 15:19] LABS: Thyroglobulin Level <0.4 ng/mL
== END 2022-01-14 14:29 | disposition home or self-care (01) ==
PROVIDERS: Internal Medicine Hematology & Oncology; PCP Family Medicine; Visit Provider Internal Medicine
DX: C61 Malignant neoplasm of prostate (principal); C73 Malignant neoplasm of thyroid gland; G47.01 Insomnia due to medical condition
CPT/HCPCS: 36415; 80053; 84153; 84403; 84432; 84439; 84443; 85025; 86800

== ENCOUNTER → 2022-01-20 09:59 | Outpatient (BNVA) | payer MEDICARE, MEDICAID, SELFPAY | PROVIDERS: PCP Family Medicine; Visit Provider Internal Medicine | DX: E89.0 Postprocedural hypothyroidism (principal); G47.01 Insomnia due to medical condition; C73 Malignant neoplasm of thyroid gland; Z79.890 Hormone replacement therapy | CPT/HCPCS: 99214 ==

== ENCOUNTER 2022-01-22 11:17 | Oncology outpatient (recurring) (ONCR) | payer MEDICARE, MEDICAID, SELFPAY ==
[2022-01-22] MEDS: denosumab 120 mg SDV SUBCUT (12:10)
[2022-01-22] MEDS: leuprolide 22.5 mg Kit IM (12:17)
== END 2022-02-08 23:59 | disposition home or self-care (01) ==
PROVIDERS: PCP Family Medicine; Visit Provider Internal Medicine Hematology & Oncology
DX: C61 Malignant neoplasm of prostate (principal); C79.51 Secondary malignant neoplasm of bone; R11.0 Nausea; I82.402 Acute embolism and thrombosis of unspecified deep veins of left lower extremity; F17.210 Nicotine dependence, cigarettes, uncomplicated; Z79.01 Long term (current) use of anticoagulants; Z79.52 Long term (current) use of systemic steroids; Z79.818 Long term (current) use of other agents affecting estrogen receptors and estrogen levels; Z79.899 Other long term (current) drug therapy; M25.551 Pain in right hip; M25.561 Pain in right knee
CPT/HCPCS: 96372; 96402; 99214; J0897; J9217

== ENCOUNTER → 2022-02-04 08:34 | Outpatient (BNVA) | payer MEDICARE, MEDICAID, SELFPAY | PROVIDERS: PCP Family Medicine; Visit Provider Urology | DX: C61 Malignant neoplasm of prostate (principal); N28.1 Cyst of kidney, acquired | CPT/HCPCS: 81003; 99213 ==

== ENCOUNTER → 2022-03-04 11:15 | Outpatient (BNVA) | payer MEDICARE, MEDICAID, SELFPAY | PROVIDERS: PCP Family Medicine; Visit Provider Podiatrist Foot & Ankle Surgery | DX: L85.1 Acquired keratosis [keratoderma] palmaris et plantaris (principal); E13.620 Other specified diabetes mellitus with diabetic dermatitis; B35.3 Tinea pedis; R21 Rash and other nonspecific skin eruption; L60.3 Nail dystrophy; L30.9 Dermatitis, unspecified | CPT/HCPCS: 17110; 99213 ==

== ENCOUNTER → 2022-04-10 15:29 | Outpatient (BNVA) | payer MEDICARE, MEDICAID, SELFPAY | PROVIDERS: PCP Family Medicine; Visit Provider Family Medicine | DX: R11.2 Nausea with vomiting, unspecified (principal); R30.0 Dysuria | CPT/HCPCS: 81000 ==

== ENCOUNTER → 2022-04-16 15:00 | Outpatient (BNVA) | payer MEDICARE, MEDICAID, SELFPAY | PROVIDERS: PCP Family Medicine; Visit Provider Podiatrist Foot & Ankle Surgery | DX: E11.8 Type 2 diabetes mellitus with unspecified complications (principal); B35.3 Tinea pedis; R21 Rash and other nonspecific skin eruption; L60.3 Nail dystrophy; L30.9 Dermatitis, unspecified; L85.1 Acquired keratosis [keratoderma] palmaris et plantaris; E11.620 Type 2 diabetes mellitus with diabetic dermatitis | CPT/HCPCS: 11721; 17110 ==

== ENCOUNTER → 2022-04-18 13:27 | Outpatient (BNVA) | payer MEDICARE, MEDICAID, SELFPAY | PROVIDERS: PCP Family Medicine; Visit Provider Nurse Practitioner Family | DX: R39.9 Unspecified symptoms and signs involving the genitourinary system (principal) | CPT/HCPCS: 81000 ==

== ENCOUNTER 2022-04-24 10:56 | Oncology outpatient (recurring) (ONCR) | payer MEDICARE, MEDICAID, SELFPAY ==
[2022-04-24 11:18] LABS: Basophils % 0.8 %; Eosinophils # 0.1 10^3/uL (0.0-0.8); Eosinophils % 1.9 %; Hematocrit 42.4 % (42.0-52.0); Hemoglobin 13.3 g/dL (11.7-16.6); Lymphocytes # 0.8 10^3/uL (0.8-4.8); Lymphocytes % 20.4 %; Mean Corpuscular HGB Conc 31.4 g/dL (30.0-36.0); Mean Corpuscular Hemoglobin 31.4 pg (28.0-34.0); Mean Corpuscular Volume 100.2 fl (80-94); Mean Platelet Volume 10.5 fL (7.4-10.4); Monocytes # 0.5 10^3/uL (0.2-0.9); Monocytes % 13.4 %; Neutrophils # 2.35 10^3/uL (1.8-7.7); Nucleated Red Blood Cells % 0 %; Platelet Count 153 10^3/cmm (130-400); Red Blood Count 4.23 10^6/uL (4.1-5.3); Red Cell Distribution Width 13.2 % (12.1-15.1); White Blood Count 3.7 10^3/uL (4.0-10.0)
[2022-04-24 11:51] LABS: Alanine Aminotransferase 15 U/L (0-41); Albumin Level 3.7 g/dL (3.5-5.2); Alkaline Phosphatase 80 U/L (40-130); Anion Gap 12.9 (5-19); Aspartate Amino Transferase 14 U/L (0-40); Blood Urea Nitrogen 23 mg/dL (8-23); Calcium 9.4 mg/dL (8.5-10.5); Carbon Dioxide 29 mmol/L (22-29); Chloride 102 mmol/L (98-107); Globulin 3.3 g/dL (1.3-4.6); Glucose 175 mg/dL (65-115); Osmolality Calculated 296 mOsm/kg (285-295); Potassium 4.9 mmol/L (3.5-5.1); Sodium 139 mmol/L (136-145); Total Bilirubin 0.2 mg/dL (0.15-1.2)
[2022-04-24] MEDS: lidocaine 1% INJ 20 mL MDV (mL) SUBCUT (14:08)
[2022-04-24] MEDS: denosumab 120 mg SDV SUBCUT (14:19)
[2022-04-24] MEDS: goserelin acetate 10.8 mg Implant SUBCUT (14:24)
== END 2022-05-09 23:59 | disposition home or self-care (01) ==
PROVIDERS: PCP Family Medicine; Visit Provider Internal Medicine Hematology & Oncology
DX: C61 Malignant neoplasm of prostate (principal); C79.51 Secondary malignant neoplasm of bone; M87.852 Other osteonecrosis, left femur; M87.851 Other osteonecrosis, right femur; R60.0 Localized edema; M16.12 Unilateral primary osteoarthritis, left hip; M48.061 Spinal stenosis, lumbar region without neurogenic claudication; I82.402 Acute embolism and thrombosis of unspecified deep veins of left lower extremity; D72.819 Decreased white blood cell count, unspecified; Z79.01 Long term (current) use of anticoagulants; Z79.52 Long term (current) use of systemic steroids; Z79.818 Long term (current) use of other agents affecting estrogen receptors and estrogen levels; Z79.899 Other long term (current) drug therapy
CPT/HCPCS: 36415; 80053; 84153; 85025; 96372; 96402; 99214; J0897; J9202

== ENCOUNTER → 2022-05-28 11:18 | Outpatient (BNVA) | payer MEDICARE, MEDICAID, SELFPAY | PROVIDERS: PCP Family Medicine; Visit Provider Podiatrist Foot & Ankle Surgery | DX: L84 Corns and callosities (principal); E13.620 Other specified diabetes mellitus with diabetic dermatitis | CPT/HCPCS: 99214 ==

== ENCOUNTER → 2022-06-30 09:44 | Outpatient (BNVA) | payer MEDICARE, MEDICAID, SELFPAY | PROVIDERS: PCP Family Medicine; Visit Provider Family Medicine | DX: E11.9 Type 2 diabetes mellitus without complications (principal) | CPT/HCPCS: 80053; 83036 ==

== ENCOUNTER → 2022-07-09 10:48 | Outpatient (BNVA) | payer MEDICARE, MEDICAID, SELFPAY | PROVIDERS: PCP Family Medicine; Visit Provider Podiatrist Foot & Ankle Surgery | DX: E13.620 Other specified diabetes mellitus with diabetic dermatitis (principal); L84 Corns and callosities; L60.3 Nail dystrophy; G62.89 Other specified polyneuropathies | CPT/HCPCS: 11057; 11721; 99213 ==

== ENCOUNTER 2022-07-15 10:00 | Outpatient (CLI) | payer MEDICARE, MEDICAID, SELFPAY ==
[2022-07-15 11:11] LABS: Free T4 Free Thyroxine 1.48 ng/dL (0.82-1.77); Thyroid Stimulating Hormone 0.08 uIU/mL (0.27-4.20)
[2022-07-16 11:28] LABS: T3 Total 104 ng/dL (76-181)
[2022-07-18 09:53] LABS: Thyroglobulin AB 45 IU/mL (< or = 1)
[2022-07-21 22:34] LABS: Thyroglobulin Level <0.4 ng/mL
== END 2022-07-15 10:01 | disposition home or self-care (01) ==
LOC: LAB 10:06
PROVIDERS: PCP Family Medicine; Visit Provider Internal Medicine
DX: C73 Malignant neoplasm of thyroid gland (principal); G47.01 Insomnia due to medical condition
CPT/HCPCS: 36415; 84432; 84439; 84443; 84480; 86800

== ENCOUNTER → 2022-07-21 10:28 | Outpatient (BNVA) | payer MEDICARE, MEDICAID, SELFPAY | PROVIDERS: PCP Family Medicine; Visit Provider Internal Medicine | DX: C73 Malignant neoplasm of thyroid gland (principal); E89.0 Postprocedural hypothyroidism; Z79.890 Hormone replacement therapy | CPT/HCPCS: 99214 ==

== ENCOUNTER 2022-07-28 10:00 | Oncology outpatient (recurring) (ONCR) | payer MEDICARE, MEDICAID, SELFPAY ==
[2022-07-28 10:03] VITALS: BP 160/81; PULSE 76; RESP 18; TEMP 36.1; O2SAT 93
[2022-07-28 10:15] LABS: Basophils % 0.5 %; Eosinophils # 0.1 10^3/uL (0.0-0.8); Eosinophils % 1.1 %; Hematocrit 40.9 % (42.0-52.0); Hemoglobin 13.2 g/dL (11.7-16.6); Lymphocytes # 0.7 10^3/uL (0.8-4.8); Lymphocytes % 12.2 %; Mean Corpuscular HGB Conc 32.3 g/dL (30.0-36.0); Mean Corpuscular Hemoglobin 31.6 pg (28.0-34.0); Mean Corpuscular Volume 97.8 fl (80-94); Mean Platelet Volume 10.7 fL (7.4-10.4); Monocytes # 0.6 10^3/uL (0.2-0.9); Monocytes % 10.6 %; Neutrophils # 4.17 10^3/uL (1.8-7.7); Neutrophils % 74.9 %; Nucleated Red Blood Cells % 0 %; Platelet Count 151 10^3/cmm (130-400); Red Blood Count 4.18 10^6/uL (4.1-5.3); Red Cell Distribution Width 12.5 % (12.1-15.1); White Blood Count 5.6 10^3/uL (4.0-10.0)
[2022-07-28 10:40] LABS: Alanine Aminotransferase < 5 U/L (0-41); Albumin Level 3.9 g/dL (3.5-5.2); Alkaline Phosphatase 72 U/L (40-130); Anion Gap 14.2 (5-19); Aspartate Amino Transferase 16 U/L (0-40); Blood Urea Nitrogen 15 mg/dL (8-23); Calcium 9.2 mg/dL (8.5-10.5); Carbon Dioxide 28 mmol/L (22-29); Chloride 101 mmol/L (98-107); Globulin 3.1 g/dL (1.3-4.6); Glucose 134 mg/dL (65-115); Osmolality Calculated 291 mOsm/kg (285-295); Potassium 4.2 mmol/L (3.5-5.1); Sodium 139 mmol/L (136-145); Total Bilirubin 0.4 mg/dL (0.15-1.2)
[2022-07-28] MEDS: goserelin acetate 10.8 mg Implant SUBCUT (15:07)
[2022-07-28] MEDS: denosumab 120 mg SDV SUBCUT (15:10)
== END 2022-08-08 23:59 | disposition home or self-care (01) ==
PROVIDERS: PCP Family Medicine; Visit Provider Internal Medicine Hematology & Oncology
DX: C61 Malignant neoplasm of prostate (principal); C79.51 Secondary malignant neoplasm of bone; M87.852 Other osteonecrosis, left femur; M87.851 Other osteonecrosis, right femur; M16.12 Unilateral primary osteoarthritis, left hip; M48.061 Spinal stenosis, lumbar region without neurogenic claudication; D72.819 Decreased white blood cell count, unspecified; Z79.01 Long term (current) use of anticoagulants; Z79.52 Long term (current) use of systemic steroids; Z79.818 Long term (current) use of other agents affecting estrogen receptors and estrogen levels; Z79.899 Other long term (current) drug therapy; M16.11 Unilateral primary osteoarthritis, right hip; E11.42 Type 2 diabetes mellitus with diabetic polyneuropathy; C73 Malignant neoplasm of thyroid gland
CPT/HCPCS: 96372; 36415; 73502; 80053; 84153; 85025; 96402; 99214; 99215; J0897; J9202

== ENCOUNTER 2022-08-01 14:20 | Outpatient (CLI) | payer MEDICARE, MEDICAID, SELFPAY ==
[2022-08-01] MEDS: iohexol 350 mg/mL 500 mL Btl (per mL) IV (14:23)
--- NOTE | 2022-08-01 15:00 | CT_ITS ---
WS: [email or web address] CT CHEST TECHNIQUE: Contrast enhanced CT of the chest with coronal and sagittal reformatted images. CLINICAL INFORMATION: history of thyroid cancer with tumor marker increasing COMPARISON: PET/CT 2018 DLP: 735.[address] scans at [facility] use at least one of these dose optimization techniques: automated e xposure control; mA and/or kV adjustment per patient size (includes targeted exams where dose is matc hed to clinical indication); or iterative reconstruction. FINDINGS: Normal caliber thoracic aorta. Mild to moderate aortic calcification. Coronary calcification. Prior t hyroidectomy. No mediastinal or hilar lymphadenopathy. Calcified hilar nodes. Calcified granulomas.Sm all esophageal hiatal hernia. Splenic granulomas. Mild chronic emphysematous changes. No acute pulmonary infiltrates. A few calcified granulomas. Tiny noncalcified nodule RIGHT upper lobe posterior measuring 3 mm. Multiple blastic lesions in the thoracic spine some of which were present on the prior CT thoracic 20 20. Some of these are new compared to previous suspicious for progressive blastic metastatic disease. Blastic lesions at T1, T2, T4, T9, and T10 and extending into the posterior elements. Additional pos terior element extension at T7 similar to previous. Lesions at T2 and T4 new compared to previous. Ad ditional blastic metastasis partially visualized in the LEFT greater than RIGHT scapula and bilateral ribs. Recommend further evaluation with bone scan. CT/CT chest w con* [id number] IMPRESSION: 1. Prior thyroidectomy. No recurrence in the thyroid bed. 2. No suspicious pulmonary parenchymal opacities. No mediastinal or hilar lymp hadenopathy. 3. Progressed blastic metastasis visualized Thoracic spine posterior elements. 4. Recommend further evaluation with bone scan. 5. Additional blastic metastasis partially visualized in the LEFT greater than RIGHT scapula and bilateral ribs.
--- NOTE | 2022-08-01 15:00 | CT_ITS ---
WS: [email or web address] CT NECK TECHNIQUE: Contrast-enhanced CT of the neck with coronal and sagittal reformatted images. CLINICAL INFORMATION: history of thyroid cancer with tumor marker increasing COMPARISON: CT neck 2018 and PET/CT 2018 DLP: 735.[address] scans at [facility] use at least one of these dose optimization techniques: automated e xposure control; mA and/or kV adjustment per patient size (includes targeted exams where dose is matc hed to clinical indication); or iterative reconstruction. FINDINGS: Postoperative changes prior thyroidectomy. Normal posterior nasopharynx. Normal parapharyngeal fat. P arotid glands are normal. Submandibular glands are normal. Tongue base is normal in appearance. No ev idence of supraglottic or glottic mass. Normal subglottic airway. Lung apices are well aerated. Prior postoperative changes thyroidectomy. Paranasal sinuses and mastoid air cells are well aerated. Advanced spondylitic changes cervical spine with reversal normal cervical lordosis. Disc osteophyte c omplexes with mild to moderate central canal stenosis C3-C4 C4-C5 and C5-C6. Slight anterolisthesis C 2 on C3. Sclerotic lesion T1 vertebral body. Additional endplate sclerotic lesion T2. This is new sin ce 2018 CT and suspicious for metastatic disease. CT/CT neck w con* [id number] IMPRESSION: 1. Interval postoperative changes thyroidectomy. Surgical clips in thyroid bed . No evidence of recurrent mass or lesion in the thyroid bed. 2. No cervical lymphadenopathy. 3. Normal salivary glands. 4. Moderate to advanced spondylitic changes cervical spine as described above. 5. Sclerotic lesions involving the T1 and T2 vertebral bodies suspicious for b lastic metastasis. This can be further evaluated with bone scan.
== END 2022-08-01 14:21 | disposition home or self-care (01) ==
PROVIDERS: PCP Family Medicine; Visit Provider Internal Medicine
DX: C73 Malignant neoplasm of thyroid gland (principal); C79.51 Secondary malignant neoplasm of bone; M25.78 Osteophyte, vertebrae
CPT/HCPCS: 70491; 71260; 99214; Q9967

== ENCOUNTER → 2022-09-09 08:27 | Outpatient (BNVA) | payer MEDICARE, MEDICAID, SELFPAY | PROVIDERS: PCP Family Medicine; Visit Provider Anesthesiology Pain Medicine | DX: M25.551 Pain in right hip (principal); E11.42 Type 2 diabetes mellitus with diabetic polyneuropathy; M47.816 Spondylosis without myelopathy or radiculopathy, lumbar region; M48.062 Spinal stenosis, lumbar region with neurogenic claudication; M51.17 Intervertebral disc disorders with radiculopathy, lumbosacral region; Z79.84 Long term (current) use of oral hypoglycemic drugs | CPT/HCPCS: 99204; 99215 ==

== ENCOUNTER → 2022-09-10 12:37 | Outpatient (BNVA) | payer MEDICARE, MEDICAID, SELFPAY | PROVIDERS: PCP Family Medicine; Visit Provider Podiatrist Foot & Ankle Surgery | DX: E11.620 Type 2 diabetes mellitus with diabetic dermatitis (principal); L84 Corns and callosities; L60.3 Nail dystrophy; G62.89 Other specified polyneuropathies; S90.32XA Contusion of left foot, initial encounter; W20.8XXA Other cause of strike by thrown, projected or falling object, initial encounter | CPT/HCPCS: 11057; 11721 ==

== ENCOUNTER 2022-09-22 09:53 | Outpatient (CLI) | payer MEDICARE, MEDICAID, SELFPAY ==
[2022-09-22 11:13] LABS: Thyroid Stimulating Hormone 0.19 uIU/mL (0.27-4.20)
[2022-09-25 11:54] LABS: Thyroglobulin AB 48 IU/mL (< or = 1)
[2022-09-27 00:25] LABS: Thyroglobulin Level <0.4 ng/mL
== END 2022-09-22 09:54 | disposition home or self-care (01) ==
PROVIDERS: PCP Family Medicine; Visit Provider Internal Medicine
DX: E89.0 Postprocedural hypothyroidism (principal); C73 Malignant neoplasm of thyroid gland
CPT/HCPCS: 36415; 84432; 84439; 84443; 86800

== ENCOUNTER → 2022-09-29 12:53 | Outpatient (BNVA) | payer MEDICARE, MEDICAID, SELFPAY | PROVIDERS: PCP Family Medicine; Visit Provider Internal Medicine | DX: C73 Malignant neoplasm of thyroid gland (principal); E89.0 Postprocedural hypothyroidism; C61 Malignant neoplasm of prostate; C79.51 Secondary malignant neoplasm of bone; Z79.890 Hormone replacement therapy; E11.9 Type 2 diabetes mellitus without complications | CPT/HCPCS: 80053; 83036; 99214 ==

== ENCOUNTER 2022-10-20 08:06 | Oncology outpatient (recurring) (ONCR) | payer MEDICARE, MEDICAID, SELFPAY ==
[2022-10-20 08:06] VITALS: BMI 31.6
[2022-10-20 08:07] VITALS: BP 157/89; PULSE 68; RESP 18; TEMP 36.2; O2SAT 92
[2022-10-20 08:17] LABS: Basophils % 0.8 %; Eosinophils # 0.1 10^3/uL (0.0-0.8); Eosinophils % 1.7 %; Hematocrit 40.5 % (37-53); Lymphocytes # 0.9 10^3/uL (0.8-4.8); Lymphocytes % 25.3 %; Mean Corpuscular HGB Conc 32.8 g/dL (30-55); Mean Corpuscular Hemoglobin 31.7 pg (27-33); Mean Corpuscular Volume 96.4 fl (82-101); Mean Platelet Volume 10.4 fL (7.4-10.4); Monocytes # 0.5 10^3/uL (0.2-0.9); Monocytes % 12.8 %; Neutrophils # 2.11 10^3/uL (1.8-7.7); Neutrophils % 58.8 %; Nucleated Red Blood Cells % 0 %; Platelet Count 133 10^3/cmm (157-399); Red Cell Distribution Width 12.5 % (12.1-15.1); White Blood Count 3.59 10^3/uL (3.29-11.43)
[2022-10-20 08:45] LABS: Alanine Aminotransferase 13 U/L (0-41); Albumin Level 4.1 g/dL (3.5-5.2); Alkaline Phosphatase 75 U/L (40-130); Anion Gap 14.9 (5-19); Aspartate Amino Transferase 13 U/L (0-40); Blood Urea Nitrogen 21 mg/dL (8-23); Calcium 8.7 mg/dL (8.5-10.5); Carbon Dioxide 27 mmol/L (22-29); Chloride 103 mmol/L (98-107); Globulin 2.9 g/dL (1.3-4.6); Glucose 162 mg/dL (65-115); Osmolality Calculated 299 mOsm/kg (285-295); Potassium 3.9 mmol/L (3.5-5.1); Sodium 141 mmol/L (136-145); Total Bilirubin 0.3 mg/dL (0.15-1.2)
[2022-10-20] MEDS: lidocaine 1% INJ 20 mL MDV (mL) SUBCUT (10:36)
[2022-10-20] MEDS: goserelin acetate 10.8 mg Implant SUBCUT (10:54)
[2022-10-20] MEDS: denosumab 120 mg SDV SUBCUT (10:55)
== END 2022-11-08 23:59 | disposition home or self-care (01) ==
PROVIDERS: Nurse Practitioner Family; PCP Family Medicine; Visit Provider Internal Medicine Hematology & Oncology
DX: C61 Malignant neoplasm of prostate (principal); C79.51 Secondary malignant neoplasm of bone; M87.852 Other osteonecrosis, left femur; M87.851 Other osteonecrosis, right femur; R60.0 Localized edema; M16.12 Unilateral primary osteoarthritis, left hip; M48.061 Spinal stenosis, lumbar region without neurogenic claudication; I82.402 Acute embolism and thrombosis of unspecified deep veins of left lower extremity; D72.819 Decreased white blood cell count, unspecified; Z79.01 Long term (current) use of anticoagulants; Z79.52 Long term (current) use of systemic steroids; Z79.818 Long term (current) use of other agents affecting estrogen receptors and estrogen levels; Z79.899 Other long term (current) drug therapy; M16.11 Unilateral primary osteoarthritis, right hip; E11.42 Type 2 diabetes mellitus with diabetic polyneuropathy; Z51.11 Encounter for antineoplastic chemotherapy; Z53.9 Procedure and treatment not carried out, unspecified reason
CPT/HCPCS: 36415; 80053; 84153; 85025; 96372; 96402; 99214; J0897; J9202

== ENCOUNTER 2022-10-24 13:08 | Outpatient (CLI) | payer MEDICARE, MEDICAID, SELFPAY ==
--- NOTE | 2022-10-24 14:03 | XR_ITS ---
WS: [email or web address] Exam: XR hip RT 2-3V wo/w pel* [id number] Date/Time of Exam: 10/24/2022 2:09 PM Reason For Exam: fall Comparison 07/28/2022. No acute fracture or dislocation. Moderately advanced degenerative change. Subcortical cyst formation in the femoral head. Normal soft tissues. The pelvis is intact as visualized. Moderate DJD of the LE FT hip also. IMPRESSION: 1. Moderately advanced degenerative changes. No fracture or dislocation.
== END 2022-10-24 13:09 | disposition home or self-care (01) ==
PROVIDERS: PCP Family Medicine; Visit Provider Registered Nurse Neonatal Intensive Care
DX: M16.11 Unilateral primary osteoarthritis, right hip (principal); M25.551 Pain in right hip
CPT/HCPCS: 73502

== ENCOUNTER 2022-11-01 20:45 | Emergency (ER) | payer MEDICARE, MEDICAID, SELFPAY ==
[2022-11-01 21:01] VITALS: BP 144/93; PULSE 89; RESP 17; TEMP 36.4; O2SAT 92; BMI 32.0
[2022-11-01 21:46] LABS: Basophils % 0.4 %; Eosinophils # 0.1 10^3/uL (0.0-0.8); Eosinophils % 1.5 %; Hematocrit 39.6 % (37-53); Lymphocytes # 0.5 10^3/uL (0.8-4.8); Mean Corpuscular HGB Conc 32.6 g/dL (30-55); Mean Corpuscular Hemoglobin 31.9 pg (27-33); Mean Platelet Volume 10.1 fL (7.4-10.4); Monocytes # 0.5 10^3/uL (0.2-0.9); Monocytes % 11.7 %; Neutrophils # 3.39 10^3/uL (1.8-7.7); Nucleated Red Blood Cells % 0 %; Platelet Count 152 10^3/cmm (157-399); Red Blood Count 4.04 10^6/uL (3.85-5.65); Red Cell Distribution Width 12.3 % (12.1-15.1); White Blood Count 4.53 10^3/uL (3.29-11.43)
[2022-11-01 21:52] VITALS: BP 130/70; RESP 18; O2SAT 92
[2022-11-01 22:03] LABS: Anion Gap 15.1 (5-19); Blood Urea Nitrogen 22 mg/dL (8-23); Carbon Dioxide 29 mmol/L (22-29); Chloride 102 mmol/L (98-107); Glucose 233 mg/dL (65-115); Osmolality Calculated 305 mOsm/kg (285-295); Potassium 4.1 mmol/L (3.5-5.1); Sodium 142 mmol/L (136-145)
[2022-11-01 22:06] LABS: Glucose Urine UA 4+ (Normal); Ketones Urine Negative (Negative); Protein Urine 2+ (Negative); Urine Appearance Bloody (CLEAR); Urine Color Yellow (Yellow); pH Urine 5 (5-7)
[2022-11-01 22:07] LABS: Add Urine Culture? Yes; Add Urine Microscopic? YES; Bacteria Urine 4+ /hpf; Bilirubin Urine Neg (Negative); Blood Urine 3+ (Negative); Leukocyte Esterase Urine 1+ (Negative); Nitrate Urine Negative (Negative); Other Casts Urine WBC CAST /lpf; RBC Urine TOO NUMEROUS TO CNT /hpf (0-2); Squamous Epithelial Cell Urine 0-4 /hpf (0-5); Urobilinogen Urine Norm (Negative); WBC Urine 80-100 /hpf (0-5)
[2022-11-01] MEDS: ciprofloxacin 500 mg Tablet PO (23:02)
[2022-11-01 23:06] VITALS: PULSE 90; RESP 18; O2SAT 93
--- NOTE | 2022-11-02 03:38 | ED_ITS ---
HPI - Male Genitourinary General: Chief complaint: Urogenital-Male Stated complaint: blood in urine Time Seen by Provider: 11/01/22 21:44 Source: patient Mode of arrival: ambulatory Limitations: no limitations History of Present Illness: Patient presents emergency department tonight accompanied by his for evaluation treatment of hematuria. Patient states he noticed onset yesterday evening when his urine started to look a little pink. Patient has been dealing with pain at the head of his penis for several days and states his primary care doctor provided him some antifungal cream which she has been using. Patient has been bouncing back and forth between different diabetes medication and was warned that he may develop yeast infections due to his blood sugars. However, he just recently started with the hematuria and continues to have pain at the head of his penis. He denies abdominal pains, any change in his chronic back pain, new onset vomiting or fevers. Incidentally, patient does have a significant history of prostate cancer and has received radiation treatments. Unfortunately, patient also seems to have metastases in various other areas as well. Review of Systems General: Reports: 10 or more systems reviewed and unremarkable except in HPI and below PFSH ED PFSH: Medical History Acute vesicular eczema of foot Benign essential HTN BPH with obstruction/lower urinary tract symptoms Burning sensation of feet COPD (chronic obstructive pulmonary disease) Dyslipidemia GERD (gastroesophageal reflux disease) History of diverticulitis History of thyroid cancer Hypogonadism in male Insomnia Intervertebral disc disorder with radiculopathy of lumbosacral region Lumbar stenosis with neurogenic claudication Metastasis to bone Post-surgical hypothyroidism Prostate cancer Right kidney mass Type 2 diabetes mellitus, without long-term current use of insulin Surgical History H/O hernia repair H/O total knee replacement BILATERAL History of colonoscopy (07/12/19) diverticulosis, repeat 10 years History of hemorrhoidectomy History of lumbar discectomy History of orchiectomy, bilateral History of thyroidectomy, subtotal History of uvulectomy Family History Mother , in her 90's Cancer Diabetes Sister Diabetes Father , in his 70's No problems noted. Other CAD (coronary artery disease) Social History Smoking and tobacco status: former smoker Quit status (tobacco): has quit using tobacco Year quit tobacco: 2022 Former quit date comment: stopped in February of this year Alcohol intake: never Substance/Drug Use: never Lives independently: Yes Household members: spouse Marital status: Current occupational status: retired Physical Exam Const: COMMON NORMALS: no acute distress, average body habitus, patient oriented x3 and alert HENMT: COMMON NORMALS: normocephalic, atraumatic, hearing grossly normal bilaterally and moist oral mucous membranes HEAD & SCALP: normocephalic and atraumatic Eye: COMMON NORMALS: Equal, round and reactive pupils present, EOMs intact bilaterally and conjunctivae normal CONJUNCTIVA: Yes conjunctivae normal PUPIL: Yes Equal, round and reactive pupils present Neck/C-Spine: COMMON NORMALS: no JVD Lymph: LYMPHATIC: no lymphadenopathy noted Resp: COMMON NORMALS: normal respiratory effort, No retractions and No use of accessory muscles Cardio: COMMON NORMALS: no JVD and regular rate RATE: regular rate : OTHER: Patient is an uncircumcised male. Retraction of the foreskin shows patient has applied antifungal cream recently. Urethral opening is erythematous but no active draining or bleeding noted no other signs of rashes or lesions appreciated. Extremity: COMMON NORMALS: normal to inspection, full ROM and capillary refill normal Neuro: COMMON NORMALS: patient oriented x3 SENSORIUM/ORIENTATION: Yes alert Psych: COMMON NORMALS: mental status grossly normal, cooperative, normal affect, speech normal and activity/motor behavior normal SPEECH: Yes normal speech Course Vital Signs: Vital signs: Vital Signs Temperature 97.6 F 11/01/22 21:01 Pulse Rate 90 11/01/22 23:06 Respiratory Rate 18 11/01/22 23:06 Blood Pressure 130/70 11/01/22 21:52 Pulse Oximetry 93 11/01/22 23:06 Oxygen Delivery Me thod Nasal Cannula 11/01/22 21:52 Oxygen Flow Rate 2 11/01/22 21:01 MDM - Male Medical Decision Making Patient's urinalysis shows quite a bit of bacteria. There is also blood present but would suspect cystitis with hematuria secondary to a urinary tract infection. I did reference the patient's urine cultures from the past to dete rmine administration of antibiotics here starting in the emergency department tonight we will continue processing the patient's urinalysis for culture and sensitivity over the next couple of days. Discussed with the patient that it does appear that he has irritation at the urethral opening. Given that they deny any change in soaps, lotions, detergents, or adult depends, patient most likely has irritation of the head of his penis secondary to yeast. Patient is a diabetic and still has his foreskin. I encouraged him to continue using the antifungal medication as being on antibiotics could make a fungal infection worse. He is to follow-up with his primary care doctor in the next few days for recheck or, went over strict return precautions for change or worsening in condition for which patient should be seen and reevaluated. Patient verbalizes understanding and agreement to treatment plan. Differential Diagnosis Likely urinary tract infection and urethritis; Unlikely epididymitis, prostatitis or acute retention of urine Lab Data 11/01/22 21:35 11/01/22 21:35 Laboratory Results WBC 4.53 10^3/uL (3.29-11.43) 11/01/22 21: RBC 4.04 10^6/uL (3.85-5.65) 11/01/22 21: Hgb 12.90 g/dL (11.27-16.99) 11/01/22 21: Hct 39.6 % (37-53) 11/01/22 21: MCV 98.0 fl (82-101) 11/01/22 21: MCH 31.9 pg (27-33) 11/01/22 21: MCHC 32.6 g/dL (30-55) 11/01/22 21: RDW 12.3 % (12.1-15.1) 11/01/22 21: Plt Count 152 10^3/cmm (157-399) L 11/01/22 21: MPV 10.1 fL (7.4-10.4) 11/01/22 21:35 Neut % (Auto) 75.0 % 11/01/22 21: Lymph % (Auto) 11.0 % 11/01/22 21: [place] % (Auto) 11.7 % 11/01/22 21: Eos % (Auto) 1.5 % 11/01/22 21:35 Baso % (Auto) 0.4 % 11/01/22 21:35 Neut # (Auto) 3.39 10^3/uL (1.8-7.7) 11/01/22 21:35 Lymph # (Auto) 0.5 10^3/uL (0.8-4.8) L 11/01/22 21:35 [place] # (Auto) 0.5 10^3/uL (0.2-0.9) 11/01/22 21:35 Eos # (Auto) 0.1 10^3/uL (0.0-0.8) 11/01/22 21:35 Baso # (Auto) 0.0 10^3/uL (0.0-0.1) 11/01/22 21:35 Nucleated RBC % (auto) 0 % 11/01/22 21:35 Nucleated RBCs # 0.0 /100WBC 11/01/22 21:35 Sodium 142 mmol/L (136-145) 11/01/22 21:35 Potassium 4.1 mmol/L (3.5-5.1) 11/01/22 21:35 Chloride 102 mmol/L (98-107) 11/01/22 21:35 Carbon Dioxide 29 mmol/L (22-29) 11/01/22 21:35 Anion Gap 15.1 (5-19) 11/01/22 21:35 BUN 22 mg/dL (8-23) 11/01/22 21:35 Creatinine 1.2 mg/dL (0.7-1.2) 11/01/22 21:35 GFR Calculation Not Reportable 11/01/22 21:35 Glucose 233 mg/dL (65-115) H 11/01/22 21:35 Calculated Osmolality 305 mOsm/kg (285-295) H 11/01/22 21:35 Calcium 9.0 mg/dL (8.5-10.5) 11/01/22 21:35 Urine Color Yellow (Yellow) 11/01/22 21:15 Urine Appearance Bloody (CLEAR) A 11/01/22 21:15 Urine pH 5 (5-7) 11/01/22 21:15 Ur Specific [place] 1.010 (1.005-1.030) 11/01/22 21:15 Urine Protein 2+ (Negative) H 11/01/22 21:15 Urine Glucose (UA) 4+ (Normal) H 11/01/22 21:15 Urine Ketones Negative (Negative) 11/01/22 21:15 Urine Blood 3+ (Negative) H 11/01/22 21:15 Urine Nitrate Negative (Negative) 11/01/22 21:15 Urine Bilirubin Neg (Negative) 11/01/22 21:15 Urine Urobilinogen Norm mg/dL (Negative) 11/01/22 21:15 Ur Leukocyte Esterase 1+ (Negative) H 11/01/22 21:15 Urine RBC Too numerous to cnt /hpf (0-2) H 11/01/22 21:15 Urine WBC 80-100 /hpf (0-5) H 11/01/22 21:15 Ur Squamous Epith Cells 0-4 /hpf (0-5) H 11/01/22 21:15 Amorphous Sediment Not Reportable 11/01/22 21:15 Urine Bacteria 4+ /hpf (NONE) H 11/01/22 21:15 Other Casts Wbc cast /lpf 11/01/22 21:15 No radiology studies performed this visit Discharge Plan Discharge Patient Disposition: Home Clinical Impression: Urinary tract infection, Candidal urethritis in male Condition: Stable Prescriptions: New ciprofloxacin HCl 500 mg tablet 500 mg PO BID 7 Days Qty: 14 0RF No Action albuterol sulfate 2.5 mg /3 mL (0.083 %) solution for nebulization 2.5 mg inhalation Q4H PRN (Reason: Shortness Of Breath) aspirin 81 mg tablet,delayed release (DR/EC) 81 mg PO DAILY All Day Allergy (cetirizine) 10 mg capsule 10 mg PO DAILY albuterol sulfate [ProAir HFA] 90 mcg/actuation HFA aerosol inhaler 2 puff INHALATION Q6H PRN (Reason: Shortness Of Breath) triamcinolone acetonide 0.1 % cream 1 applic topical TID 30 Days Qty: 30 3RF cholecalciferol (vitamin D3) 25 mcg (1,000 unit) capsule 25 mcg PO TID lidocaine 5 % cream 1 applic topical BID PRN PreserVision AREDS-2 250-90-40-1 mg capsule 1 tab PO BID metoprolol succinate 25 mg tablet extended release 24 hr See Rx Instructions .ROUTE .COMPLEX Qty: 60 2RF Dose Instruction: TAKE ONE TABLET BY MOUTH daily Rx Instructions: TAKE ONE TABLET BY MOUTH daily vitamin B complex [B Complex-Vitamin B12] Tablet 1 tab PO DAILY Qty: 90 0RF mupirocin calcium 2 % cream 1 applic topical BID Qty: 30 0RF meclizine 25 mg tablet 25 mg PO TID Qty: 30 0RF ondansetron HCl 4 mg tablet See Rx Instructions .ROUTE .COMPLEX Qty: 30 0RF Dose Instruction: TAKE 1 TABLET BY MOUTH EVERY 8 HOURS NEEDED FOR NAUSEA AND VOMITING Rx Instructions: TAKE 1 TABLET BY MOUTH EVERY 8 HOURS NEEDED FOR NAUSEA AND VOMITING promethazine-DM 6.25-15 mg/5 mL syrup 5 ml PO Q6H PRN (Reason: cough) Qty: 80 0RF miconazole nitrate 2 % cream 1 applic topical BID Qty: 14 0RF prednisone 5 mg tablet 5 mg PO BID Qty: 180 3RF (BOUCHRA) Noe See Rx Instructions .ROUTE .MEDSUPPLY Qty: 1 0RF Rx Instructions: As directed (BOUCHRA) Noe See Rx Instructions .ROUTE .MEDSUPPLY Qty: 1 0RF Rx Instructions: As directed methocarbamol 750 mg tablet 750 mg PO TID PRN (Reason: pain ) Qty: 20 0RF levothyroxine 175 mcg tablet See Rx Instructions .ROUTE .COMPLEX Qty: 90 3RF Rx Instructions: Take 1 tablet Thursday-Thursday; 1/2 tablet on Thursday; skip Thursday montelukast 10 mg tablet 10 mg PO DAILY Qty: 90 2RF alfuzosin 10 mg tablet extended release 24 hr See Rx Instructions .ROUTE .COMPLEX Qty: 90 1RF Dose Instruction: TAKE 1 TABLET BY MOUTH EVERY DAY Rx Instructions: TAKE 1 TABLET BY MOUTH EVERY DAY carbamazepine 100 mg tablet extended release 12 hr See Rx Instructions .ROUTE .COMPLEX Qty: 60 3RF Dose Instruction: TAKE ONE TABLET BY MOUTH TWICE DAILY Rx Instructions: TAKE ONE TABLET BY MOUTH TWICE DAILY nitroglycerin [Nitrostat] 0.4 mg tablet, sublingual 0.4 mg SUBLINGUAL Q5M PRN (Reason: Chest Pain) Qty: 30 1RF Eliquis 5 mg tablet See Rx Instructions .ROUTE .COMPLEX Qty: 240 0RF Dose Instruction: TAKE ONE TABLET BY MOUTH TWICE DAILY Rx Instructions: TAKE ONE TABLET BY MOUTH TWICE DAILY esomeprazole magnesium 40 mg capsule,delayed release(DR/EC) See Rx Instructions .ROUTE .COMPLEX Qty: 180 0RF Dose Instruction: take 1 capsule BY MOUTH TWICE DAILY Rx Instructions: take 1 capsule BY MOUTH TWICE DAILY metoclopramide HCl 5 mg tablet See Rx Instructions .ROUTE .COMPLEX Qty: 90 0RF Dose Instruction: TAKE 1 TABLET BY MOUTH THREE TIMES DAILY Rx Instructions: TAKE 1 TABLET BY MOUTH THREE TIMES DAILY abiraterone 250 mg tablet See Rx Instructions .ROUTE .COMPLEX Qty: 28 2RF Dose Instruction: TAKE ONE TABLET BY MOUTH DAILY. Take with low fat meal Rx Instructions: TAKE ONE TABLET BY MOUTH DAILY. Take with low fat meal Jardiance 10 mg tablet 10 mg PO QAM Qty: 90 0RF rosuvastatin 40 mg tablet See Rx Instructions .ROUTE .COMPLEX Qty: 90 0RF Dose Instruction: TAKE ONE TABLET BY MOUTH AT BEDTIME Rx Instructions: TAKE ONE TABLET BY MOUTH AT BEDTIME Januvia 100 mg tablet See Rx Instructions .ROUTE .COMPLEX Qty: 90 1RF Dose Instruction: TAKE 1 TABLET BY MOUTH EVERY DAY Rx Instructions: TAKE 1 TABLET BY MOUTH EVERY DAY Trelegy Ellipta 100-62.5-25 mcg blister with device 1 ea INHALATION DAILY Probiotic 1 tab PO DAILY fluticasone propionate [Flonase Allergy Relief] 50 mcg/actuation spray,suspension 1 spray intranasal BID Rx Instructions: administer into each nostril Discharge Orders: Discharge ED (Routine); Ordered 11/01/22 Ordered By: Ellen Flowers Referrals: Joann Knowles DO [Primary Care Provider] - Discharge Diet: Diabetic Discharge Activity: Increase activity as tolerated Activity Restrictions/Additional Instructions: Lab work today looks stable but your urinalysis revealed signs of a significant urinary tract infection. There is quite a bit of bleeding associated with this infection and we are starting you on antibiotics tonight. I think you most likely have a yeast urethritis causing irritation at the tip of your penis. Continue to use your antifungal medication as taking antibiotics can make fungal infections acutely worse. Please follow-up with your primary care doctor in the next few days for general recheck however, if you develop fever, inability to urinate, or abdominal pains you to be seen and reevaluated back here in the emergency department. Coding Level of Care Code ED Supply Planner for Gale Callahan
== END 2022-11-01 23:08 | disposition home or self-care (01) ==
PROVIDERS: Emergency Medicine; Emergency Provider Physician Assistant; PCP Family Medicine
DX: B37.41 Candidal cystitis and urethritis (principal); Z79.82 Long term (current) use of aspirin; Z79.01 Long term (current) use of anticoagulants; Z87.891 Personal history of nicotine dependence; J44.9 Chronic obstructive pulmonary disease, unspecified; I10 Essential (primary) hypertension; E78.5 Hyperlipidemia, unspecified; Z85.850 Personal history of malignant neoplasm of thyroid; Z85.46 Personal history of malignant neoplasm of prostate; E11.9 Type 2 diabetes mellitus without complications
CPT/HCPCS: 36415; 80048; 81001; 85025; 87077; 87086; 87186; 99283

== ENCOUNTER 2022-11-03 07:36 | Outpatient (CLI) | payer MEDICARE, MEDICAID, SELFPAY ==
--- NOTE | 2022-11-03 08:00 | NM_ITS ---
WS: [id number] NUCLEAR MEDICINE BONE SCAN Radiopharmaceutical: 25.6 Tc-99m MDP mCi IV Injection site: Antecubital Postinjection imaging delay: 1 hr CLINICAL INFORMATION: metastatic prostae cancer, rising PSA COMPARISON: CT chest and CT neck 08/01/2022 and bone scan 2020 2018 FINDINGS: Imaging is limited due to patient motion. Patient difficulty holding still. Bone lesions: Multiple punctate areas of uptake in the mid and upper thoracic spine similar to 2021. Increased uptake in the cervical spine nonspecific but may be degenerative versus metastatic. Soft tissue contours: Normal. Kidneys: Normal. Other findings: Bilateral TKAs. IMPRESSION: Limited diagnostic examination due to patient motion 1. Punctate areas of increased uptake in the mid and upper thoracic spine are similar to 202. 2. Areas of increased uptake in the cervical spine are nonspecific and difficult to further evaluate . This may be due to degenerative change versus metastatic disease. This could be further evaluated w ith cervical and thoracic spine CT. 3. Faint RIGHT side rib lesions are similar to previous
== END 2022-11-03 07:37 | disposition home or self-care (01) ==
LOC: RAD 07:36
PROVIDERS: PCP Family Medicine; Visit Provider Internal Medicine Medical Oncology
DX: C61 Malignant neoplasm of prostate (principal)
CPT/HCPCS: 78306; A9561

== ENCOUNTER 2022-11-07 09:20 | Outpatient (CLI) | payer MEDICARE, MEDICAID, SELFPAY ==
[2022-11-07] MEDS: iohexol 350 mg/mL 500 mL Btl (per mL) IV (09:42)
--- NOTE | 2022-11-07 10:30 | CT_ITS ---
WS: [id number] CT CHEST, ABDOMEN AND PELVIS WITH CONTRAST HISTORY: metastatic prostae cancer, rising PSA TECHNIQUE: Contiguous 5 mm axial imaging performed through the chest, abdomen and pelvis with IV cont rast, oral contrast has not been provided. Coronal and sagittal reformats chest. Coronal and sagittal reformats through the abdomen and pelvis. All CT scans at [facility] use at least one of the se dose optimization techniques: automated exposure control; mA and/or kV adjustment per patient size (includes targeted exams where dose is matched to clinical indication); or iterative reconstruction. CONTRAST: Omnipaque 350; 100 mL IV. DLP: 1513.18 mGy.cm COMPARISON: Chest CT 08/01/2022, CT abdomen and pelvis 12/23/[address]: No pulmonary mass or nodules. There are a few scattered micronodules which are stable. Ther e are also scattered calcified granulomata. No pneumonia. Mild atherosclerosis thoracic aorta. Normal sized pulmonary artery. Heart is normal size. No pericardial or pleural effusions. No mediastinal or hilar adenopathy. 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 As com pared to the most recent CT of the chest from 08/01/2022 there is been no obvious progression. Abdomen CT: Liver, gallbladder, pancreas, spleen, adrenal glands and kidneys are stable. There are fe w granulomata in the spleen. Small calcifications within the pancreas also. Mild cortical atrophy. To o small to characterize hypodensities within each kidney. There are 2 LEFT renal cysts which are stab le. Moderate atherosclerotic plaque within the aorta. No adenopathy or free fluid. No GI tract obstru ction. There is mild wall thickening of the stomach but this is probably due to under distention. No oral contrast was given for this examination. No small bowel obstruction. Normal appendix. Moderate d iverticular burden in the distal colon. No acute diverticulitis. Pelvic CT: There is a small amount of air in the distended urinary bladder. This can be seen with rec ent instrumentation, cystitis or fistula. No mass in the bladder. No free fluid. Reidentified are sclerotic changes in the RIGHT femoral head from osteonecrosis. Patient has known bl astic metastatic bone disease in the lumbar spine and pelvis. No progression since 12/23/2021. IMPRESSION: 1. No significant lymphadenopathy within the chest, abdomen or pelvis. 2. No ascites or free air. 3. Small amount of air in the urinary bladder. This can be seen with recent instrumentation, cystitis or fistula with the GI tract. 4. Known osteoblastic metastatic disease appears stable as compared to prior CT from 08/01/2022 and . No pathological fractures. 5. Moderate diverticular burden in the distal colon without acute diverticulitis. 6. RIGHT femoral head osteonecrosis, stable.
== END 2022-11-07 09:21 | disposition home or self-care (01) ==
PROVIDERS: PCP Family Medicine; Visit Provider Internal Medicine Medical Oncology
DX: C61 Malignant neoplasm of prostate (principal)
CPT/HCPCS: 71260; 74177; Q9967

== ENCOUNTER 2022-11-10 14:57 | Oncology outpatient (recurring) (ONCR) | payer MEDICARE, MEDICAID, SELFPAY | END 2022-12-09 23:59 | disposition home or self-care (01) | PROVIDERS: PCP Family Medicine; Visit Provider Internal Medicine Hematology & Oncology | DX: C61 Malignant neoplasm of prostate (principal); C79.51 Secondary malignant neoplasm of bone; M87.852 Other osteonecrosis, left femur; M87.851 Other osteonecrosis, right femur; R60.0 Localized edema; M16.12 Unilateral primary osteoarthritis, left hip; M48.061 Spinal stenosis, lumbar region without neurogenic claudication; I82.402 Acute embolism and thrombosis of unspecified deep veins of left lower extremity; D72.819 Decreased white blood cell count, unspecified; Z79.01 Long term (current) use of anticoagulants; Z79.52 Long term (current) use of systemic steroids; Z79.818 Long term (current) use of other agents affecting estrogen receptors and estrogen levels; Z79.899 Other long term (current) drug therapy; M16.11 Unilateral primary osteoarthritis, right hip; E11.42 Type 2 diabetes mellitus with diabetic polyneuropathy | CPT/HCPCS: 99215 ==

== ENCOUNTER → 2022-12-11 08:34 | Outpatient (BNVA) | payer MEDICARE, MEDICAID, SELFPAY | PROVIDERS: PCP Family Medicine; Visit Provider Podiatrist Foot & Ankle Surgery | DX: L84 Corns and callosities (principal); E13.620 Other specified diabetes mellitus with diabetic dermatitis; L60.3 Nail dystrophy; G62.89 Other specified polyneuropathies; E13.42 Other specified diabetes mellitus with diabetic polyneuropathy | CPT/HCPCS: 11056; 11721; 99213 ==

== ENCOUNTER → 2023-01-05 09:51 | Outpatient (BNVA) | payer MEDICARE, MEDICAID, SELFPAY | PROVIDERS: PCP Family Medicine; Visit Provider Family Medicine | DX: Z00.00 Encounter for general adult medical examination without abnormal findings (principal); Z13.6 Encounter for screening for cardiovascular disorders; E11.9 Type 2 diabetes mellitus without complications; Z11.59 Encounter for screening for other viral diseases | CPT/HCPCS: 80061; 82043; 83036; 86803 ==

== ENCOUNTER 2023-01-15 11:13 | Oncology outpatient (recurring) (ONCR) | payer MEDICARE, MEDICAID, SELFPAY ==
[2023-01-15 11:30] VITALS: BP 140/90; PULSE 76; RESP 16; TEMP 36.7; O2SAT 92
[2023-01-15 11:43] LABS: Basophils % 0.4 %; Eosinophils # 0.1 10^3/uL (0.0-0.8); Eosinophils % 1.4 %; Hematocrit 40.3 % (37-53); Lymphocytes # 0.7 10^3/uL (0.8-4.8); Lymphocytes % 15.1 %; Mean Corpuscular HGB Conc 32.3 g/dL (30-55); Mean Corpuscular Hemoglobin 31.6 pg (27-33); Mean Corpuscular Volume 98.1 fl (82-101); Mean Platelet Volume 10.7 fL (7.4-10.4); Monocytes # 0.6 10^3/uL (0.2-0.9); Monocytes % 11.4 %; Neutrophils # 3.44 10^3/uL (1.8-7.7); Neutrophils % 71.1 %; Nucleated Red Blood Cells % 0 %; Platelet Count 149 10^3/cmm (157-399); Red Blood Count 4.11 10^6/uL (3.85-5.65); Red Cell Distribution Width 12.8 % (12.1-15.1); White Blood Count 4.84 10^3/uL (3.29-11.43)
[2023-01-15 12:02] LABS: Alanine Aminotransferase 14 U/L (0-41); Alkaline Phosphatase 67 U/L (40-130); Anion Gap 13.6 (5-19); Aspartate Amino Transferase 13 U/L (0-40); Blood Urea Nitrogen 17 mg/dL (8-23); Calcium 9.2 mg/dL (8.5-10.5); Carbon Dioxide 30 mmol/L (22-29); Chloride 105 mmol/L (98-107); Glucose 159 mg/dL (65-115); Osmolality Calculated 303 mOsm/kg (285-295); Potassium 4.6 mmol/L (3.5-5.1); Sodium 144 mmol/L (136-145); Testosterone Total 2.5 ng/dL (193-740); Total Bilirubin 0.3 mg/dL (0.15-1.2)
[2023-01-15] MEDS: lidocaine 1% INJ 20 mL MDV (mL) SUBCUT (14:11)
[2023-01-15] MEDS: denosumab 120 mg SDV SUBCUT (14:12)
[2023-01-15] MEDS: goserelin acetate 10.8 mg Implant SUBCUT (14:23)
== END 2023-02-08 23:59 | disposition home or self-care (01) ==
PROVIDERS: Internal Medicine Medical Oncology; PCP Family Medicine; Visit Provider Internal Medicine Hematology & Oncology
DX: C61 Malignant neoplasm of prostate (principal); C79.51 Secondary malignant neoplasm of bone; M87.852 Other osteonecrosis, left femur; M87.851 Other osteonecrosis, right femur; R60.0 Localized edema; M16.12 Unilateral primary osteoarthritis, left hip; M48.061 Spinal stenosis, lumbar region without neurogenic claudication; I82.402 Acute embolism and thrombosis of unspecified deep veins of left lower extremity; D72.819 Decreased white blood cell count, unspecified; Z79.01 Long term (current) use of anticoagulants; Z79.52 Long term (current) use of systemic steroids; Z79.818 Long term (current) use of other agents affecting estrogen receptors and estrogen levels; Z79.899 Other long term (current) drug therapy; M16.11 Unilateral primary osteoarthritis, right hip; E11.42 Type 2 diabetes mellitus with diabetic polyneuropathy; Z51.11 Encounter for antineoplastic chemotherapy
CPT/HCPCS: 36415; 80053; 84153; 84403; 85025; 96372; 96402; 99214; J0897; J9202

== ENCOUNTER → 2023-02-26 09:18 | Outpatient (BNVA) | payer MEDICARE, MEDICAID, SELFPAY | PROVIDERS: PCP Family Medicine; Visit Provider Nurse Practitioner Family | DX: R31.9 Hematuria, unspecified (principal) | CPT/HCPCS: 81003; 87086 ==

== ENCOUNTER 2023-02-28 10:06 | Emergency (ER) | payer MEDICARE, MEDICAID, SELFPAY ==
--- NOTE | 2023-02-28 10:25 | ED_ITS ---
HPI - General Adult 2 General: Chief complaint: Urogenital-Male Stated complaint: Blood in Urine Time Seen by Provider: 02/28/23 10:11 History of Present Illness: 77-year-old male presents emergency depa rtment with complaints of a large amount of blood in his urine for the previous 2 weeks. He was seen at the walk-in clinic yesterday and provided amoxicillin antibiotic and was advised to follow- up with his primary care provider. The patient states he has a history of prostate cancer and has been seen by urology in the past but his urologist has retired. He states he is also seen several oncology physicians here at this facility and they have also all either moved away or retired. He states he was a heavy smoker but quit approximately 1 year ago. He states that he does have prostate cancer that was treated with orchiectomy, radiation and chemotherapy previously. He states he does have 5 out of 10 lower abdominal pain that he describes as a dull constant pain that is worse if he pushes on his lower abdomen or suprapubic region. He states he does take Eliquis for previous blood clots in his legs.. Review of Systems 2 General: Reports: 10 or more systems reviewed and unremarkable except in HPI and below GI: Reports: abdominal pain : Reports: difficulty urinating and hematuria [facility] ED 2 PFSH: Medical History (Updated 02/28/23 @ 13:13 by Mike Oliva MD) Hematuria Right kidney mass Burning sensation of feet Acute vesicular eczema of foot Lumbar stenosis with neurogenic claudication Intervertebral disc disorder with radiculopathy of lumbosacral region Metastasis to bone Dyslipidemia History of diverticulitis Type 2 diabetes mellitus, without long-term current use of insulin Benign essential HTN Post-surgical hypothyroidism Insomnia GERD (gastroesophageal reflux disease) COPD (chronic obstructive pulmonary disease) 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 Other CAD (coronary artery disease) Social History Smoking and tobacco/nicotine status: former use of tobacco/nicotine Quit status (tobacco/nicotine): has quit using Year quit tobacco: 2022 Former quit date comment: stopped in February of this year Alcohol intake: never Substance/Drug Use: never Lives independently: Yes Household members: spouse Marital status: Current occupational status: retired Physical Exam 2 Narrative: EXAM NARRATIVE: Constitutional: the patient appears well nourished and of normal development. Vital signs as documented. No acute distress at present. Alert and oriented-to person, place, time and situation. Head, eyes, ears, nose, mouth, throat: Normocephalic, atraumatic. Pupils-equal, round, reactive to light. No scleral icterus. Normal-appearing external ears. Normal appearing nasal turbinates, no drainage. No obvious oral lesions, posterior oropharynx without erythema or exudates. Neck: Supple, trachea is midline, no lymphadenopathy, no jugular venous distension, thyromegaly, or carotid bruits. Carotid upstrokes are brisk bilaterally. Lungs: clear to auscultation to all lung joseph. Symmetrical rise and fall of chest, no obvious signs of increased work of breathing at present. Cardiac: Regular rate and rhythm, positive S1, S2. No murmurs, rubs or gallops that I can appreciate Abdomen: Soft, tender to palpation to the bilateral lower quadrants and suprapubic region., normal active bowel sounds to all quadrants. No palpable masses, no organomegaly and abdominal bruits. Extremities: 2+ pulses in the upper extremities that are equal bilaterally, 2+ pulses in the lower extremities that are equal bilaterally. Non-edematous. Moves all extremities well, sensation to all extremities are noted. Skin: Warm, dry, intact. Course 2 Vital Signs: Vital signs: Vital Signs Temperature 97.6 F 02/28/23 10:35 Pulse Rate 78 02/28/23 13:47 Respiratory Rate 16 02/28/23 12:15 Blood Pressure 164/106 02/28/23 13:47 Pulse Oximetry 93 02/28/23 13:47 Oxygen Delivery Me thod Room Air 02/28/23 13:29 MDM - General Adult Medical Decision Making 77-year-old male presents with lower abdominal pain and gross hematuria I will obtain laboratory evaluation to include a CBC, CMP, urinalysis and a CT scan of the abdomen pelvis. We will place a [place] catheter to maintain the patency of his urinary tract given his gross hematuria. Given his urine results I will also provide him IV antibiotics here in the emergency department as well as have him follow-up outpatient with urology. Differential Diagnosis Malignancy, urinary tract infection, medication side effect Medical Records I reviewed the patient's medical records. Lab Data I reviewed the patient's lab results. 02/28/23 10:29 02/28/23 10:29 Radiology Impressions Abdomen/Pelvis CT 02/28/23 12:03 IMPRESSION: 1. No acute findings. 2. 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 Chronic appearing urinary bladder wall thickening also noted. Laboratory Results WBC 2.76 10^3/uL (3.29-11.43) L 02/28/23 10:29 RBC 3.93 10^6/uL (3.85-5.65) 02/28/23 10:29 Hgb 12.30 g/dL (11.27-16.99) 02/28/23 10:29 Hct 39.5 % (37-53) 02/28/23 10:29 MCV 100.5 fl (82-101) 02/28/23 10:29 MCH 31.3 pg (27-33) 02/28/23 10:29 MCHC 31.1 g/dL (30-55) 02/28/23 10:29 RDW 13.2 % (12.1-15.1) 02/28/23 10:29 Plt Count 115 10^3/cmm (157-399) L 02/28/23 10:29 MPV 10.7 fL (7.4-10.4) H 02/28/23 10:29 Neut % (Auto) 56.1 % 02/28/23 10:29 Lymph % (Auto) 26.8 % 02/28/23 10:29 Cache % (Auto) 14.5 % 02/28/23 10:29 Eos % (Auto) 1.8 % 02/28/23 10:29 Baso % (Auto) 0.4 % 02/28/23 10: Neut # (Auto) 1.55 10^3/uL (1.8-7.7) L 02/28/23 10: Lymph # (Auto) 0.7 10^3/uL (0.8-4.8) L 02/28/23 10: Cache # (Auto) 0.4 10^3/uL (0.2-0.9) 02/28/23 10: Eos # (Auto) 0.1 10^3/uL (0.0-0.8) 02/28/23 10: Baso # (Auto) 0.0 10^3/uL (0.0-0.1) 02/28/23 10: Nucleated RBC % (auto) 0 % 02/28/23 10: Nucleated RBCs # 0.0 /100WBC 02/28/23 10: Sodium 144 mmol/L (136-145) 02/28/23 10:29 Potassium 4.0 mmol/L (3.5-5.1) 02/28/23 10:29 Chloride 107 mmol/L (98-107) 02/28/23 10: Carbon Dioxide 28 mmol/L (22-29) 02/28/23 10: Anion Gap 13.0 (5-19) 02/28/23 10:29 BUN 15 mg/dL (8-23) 02/28/23 10:29 Creatinine 0.9 mg/dL (0.7-1.2) 02/28/23 10:29 GFR Calculation Not Reportable 02/28/23 10:29 Glucose 147 mg/dL (65-115) H 02/28/23 10:29 Calculated Osmolality 302 mOsm/kg (285-295) H 02/28/23 10:29 Calcium 8.4 mg/dL (8.5-10.5) L 02/28/23 10:29 Total Bilirubin 0.4 mg/dL (0.15-1.2) 02/28/23 10:29 AST 14 U/L (0-40) 02/28/23 10:29 ALT 13 U/L (0-41) 02/28/23 10:29 Alkaline Phosphatase 72 U/L (40-130) 02/28/23 10: Total Protein 6.9 g/dL (6.6-8.7) 02/28/23 10:29 Albumin 3.8 g/dL (3.5-5.2) 02/28/23 10:29 Globulin 3.1 g/dL (1.3-4.6) 02/28/23 10:29 Urine Color Red (Yellow) A 02/28/23 12:10 Urine Appearance Bloody (CLEAR) A 02/28/23 12:10 Urine pH 9 (5-7) H 02/28/23 12:10 Ur Specific [place] 1.020 (1.005-1.030) 02/28/23 12:10 Urine Protein 1+ (Negative) H 02/28/23 12:10 Urine Glucose (UA) Norm (Normal) 02/28/23 12:10 Urine Ketones Negative (Negative) 02/28/23 12:10 Urine Blood 3+ (Negative) H 02/28/23 12:10 Urine Nitrate Negative (Negative) 02/28/23 12:10 Urine Bilirubin Neg (Negative) 02/28/23 12:10 Prot Sulfosalicylic Acd Positive (Negative) 02/28/23 12:10 Urine Urobilinogen 1 mg/dL (Negative) H 02/28/23 12:10 Ur Leukocyte Esterase Negative (Negative) 02/28/23 12:10 Urine RBC Too numerous to cnt /hpf (0-2) H 02/28/23 12:10 Urine WBC 25-40 /hpf (0-5) H 02/28/23 12:10 Ur Squamous Epith Cells None /hpf (0-5) 02/28/23 12:10 Amorphous Sediment Not Reportable 02/28/23 12:10 Urine Bacteria 1+ /hpf (NONE) H 02/28/23 12:10 All radiology interpretation(s) finalized by discharge Discharge Plan Discharge Patient Disposition: Home Clinical Impression: Gross hematuria Urinary tract infection Qualifiers: Urinary tract infection type: acute cystitis Hematuria presence: with hematuria Qualified Code(s): N30.01 - Acute cystitis with hematuria Neutropenia Qualifiers: Neutropenia type: unspecified Qualified Code(s): D70.9 - Neutropenia, unspecified Condition: Stable Prescriptions: New Macrobid 100 mg capsule 100 mg PO Q12H 14 Days Qty: 28 0RF Rx Instructions: must administer with a meal/food No Action albuterol sulfate 2.5 mg /3 mL (0.083 %) solution for nebulization 2.5 mg inhalation Q4H PRN (Reason: Shortness Of Breath) aspirin 81 mg tablet,delayed release (DR/EC) 81 mg PO DAILY All Day Allergy (cetirizine) 10 mg capsule 10 mg PO DAILY albuterol sulfate [ProAir HFA] 90 mcg/actuation HFA aerosol inhaler 2 puff INHALATION Q6H PRN (Reason: Shortness Of Breath) triamcinolone acetonide 0.1 % cream 1 applic topical TID 30 Days Qty: 30 3RF cholecalciferol (vitamin D3) 25 mcg (1,000 unit) capsule 25 mcg PO TID lidocaine 5 % cream 1 applic topical BID PRN PreserVision AREDS-2 250-90-40-1 mg capsule 1 tab PO BID carbamazepine 100 mg tablet extended release 12 hr See Rx Instructions .ROUTE .COMPLEX Qty: 60 3RF Dose Instruction: TAKE ONE TABLET BY MOUTH TWICE DAILY Rx Instructions: TAKE ONE TABLET BY MOUTH TWICE DAILY miconazole nitrate 2 % cream 1 applic topical BID Qty: 14 0RF abiraterone 500 mg tablet See Rx Instructions .ROUTE .COMPLEX Qty: 60 2RF Dose Instruction: TAKE ONE TABLET BY MOUTH DAILY. Take with low fat meal Rx Instructions: TAKE two TABLET BY MOUTH DAILY. Take on an empty stomach (1 hour before meals or 2 hours after meals) vitamin B complex [B Complex-Vitamin B12] Tablet 1 tab PO DAILY Qty: 90 0RF mupirocin calcium 2 % cream 1 applic topical BID Qty: 30 0RF ondansetron HCl 4 mg tablet See Rx Instructions .ROUTE .COMPLEX Qty: 30 0RF Dose Instruction: TAKE 1 TABLET BY MOUTH EVERY 8 HOURS NEEDED FOR NAUSEA AND VOMITING Rx Instructions: TAKE 1 TABLET BY MOUTH EVERY 8 HOURS NEEDED FOR NAUSEA AND VOMITING promethazine-DM 6.25-15 mg/5 mL syrup 5 ml PO Q6H PRN (Reason: cough) Qty: 80 0RF prednisone 5 mg tablet 5 mg PO BID Qty: 180 3RF (BOUCHRA) Noe See Rx Instructions .ROUTE .MEDSUPPLY Qty: 1 0RF Rx Instructions: As directed (BOUCHRA) Noe See Rx Instructions .ROUTE .MEDSUPPLY Qty: 1 0RF Rx Instructions: As directed methocarbamol 750 mg tablet 750 mg PO TID PRN (Reason: pain ) Qty: 20 0RF nitroglycerin [Nitrostat] 0.4 mg tablet, sublingual 0.4 mg SUBLINGUAL Q5M PRN (Reason: Chest Pain) Qty: 30 1RF rosuvastatin 40 mg tablet See Rx Instructions .ROUTE .COMPLEX Qty: 90 0RF Dose Instruction: TAKE ONE TABLET BY MOUTH AT BEDTIME Rx Instructions: TAKE ONE TABLET BY MOUTH AT BEDTIME Januvia 100 mg tablet See Rx Instructions .ROUTE .COMPLEX Qty: 90 1RF Dose Instruction: TAKE 1 TABLET BY MOUTH EVERY DAY Rx Instructions: TAKE 1 TABLET BY MOUTH EVERY DAY (DME) RSV vaccine See Rx Instructions .Route .MEDSUPPLY Qty: 1 0RF Rx Instructions: As directed Eliquis 5 mg tablet See Rx Instructions .ROUTE .COMPLEX Qty: 240 0RF Dose Instruction: TAKE ONE TABLET BY MOUTH TWICE DAILY Rx Instructions: TAKE ONE TABLET BY MOUTH TWICE DAILY montelukast 10 mg tablet See Rx Instructions .ROUTE .COMPLEX Qty: 90 2RF Dose Instruction: TAKE 1 TABLET BY MOUTH EVERY DAY Rx Instructions: TAKE 1 TABLET BY MOUTH EVERY DAY metoprolol succinate 25 mg tablet extended release 24 hr See Rx Instructions .ROUTE .COMPLEX Qty: 90 1RF Dose Instruction: TAKE 1 TABLET BY MOUTH EVERY DAY Rx Instructions: TAKE 1 TABLET BY MOUTH EVERY DAY glipizide 5 mg tablet extended release 24hr See Rx Instructions .ROUTE .COMPLEX Qty: 90 1RF Dose Instruction: TAKE ONE TABLET BY MOUTH DAILY Rx Instructions: TAKE ONE TABLET BY MOUTH DAILY alfuzosin 10 mg tablet extended release 24 hr See Rx Instructions .ROUTE .COMPLEX Qty: 90 1RF Dose Instruction: TAKE 1 TABLET BY MOUTH EVERY DAY Rx Instructions: TAKE 1 TABLET BY MOUTH EVERY DAY metoclopramide HCl 5 mg tablet See Rx Instructions .ROUTE .COMPLEX Qty: 90 0RF Dose Instruction: TAKE 1 TABLET BY MOUTH THREE TIMES DAILY Rx Instructions: TAKE 1 TABLET BY MOUTH THREE TIMES DAILY levothyroxine 175 mcg tablet See Rx Instructions .ROUTE .COMPLEX Qty: 90 0RF Dose Instruction: TAKE 1 TABLET BY MOUTH EVERY DAY thursday through thursday. take 1/2 tablet BY MOUTH ON thursday, SKIP thursday Rx Instructions: TAKE 1 TABLET BY MOUTH EVERY DAY thursday through thursday. take 1/2 tablet BY MOUTH ON thursday, SKIP thursday meclizine 25 mg tablet 25 mg PO TID Qty: 30 0RF esomeprazole magnesium 40 mg capsule,delayed release(DR/EC) See Rx Instructions .ROUTE .COMPLEX Qty: 180 0RF Dose Instruction: take 1 capsule BY MOUTH TWICE DAILY Rx Instructions: take 1 capsule BY MOUTH TWICE DAILY amoxicillin-pot clavulanate 875-125 mg tablet 1 tab PO BID 10 Days Qty: 20 0RF Trelegy Ellipta 100-62.5-25 mcg blister with device 1 ea INHALATION DAILY Probiotic 1 tab PO DAILY fluticasone propionate [Flonase Allergy Relief] 50 mcg/actuation spray,suspension 1 spray intranasal BID Rx Instructions: administer into each nostril Discharge Orders: Discharge ED (Routine); Ordered 02/28/23 Ordered By: Mike Oliva Referrals: Joann Knowles DO [Primary Care Provider] - Henry Jewell MD [Hospitalist] - Discharge Diet: Advance as tolerated Discharge Activity: Resume usual activity Patient Instructions: Opioid Safety, Pain Management Activity Restrictions/Additional Instructions: I have provided you with the contact information for the urology clinic to follow-up with. Please call on the next business day to make an appointment and advised them that you have been seen in the emergency department and are needing additional evaluation. [facility] [address] [place] [address] Phone--[phone] Activity Restrictions/Additional Instructions: Thank you for choosing [facility] for your healthcare needs today. Please realize that you were seen in the Emergency Department and that we are providing you with an emergency medical screening exam and this may not be a complete and all inclusive of all the testing and or medical work-up that you may need to determine your ailment or severity of your illness. It is very important that you follow-up as instructed with your Primary care provider or Specialist for additional evaluation and to discuss your medical treatment plan. You may return to the Emergency Department should you have concerns or if your condition changes or worsens in any way. Coding Level of Care Code ED Ultrasound Manager for Gale Callahan
[2023-02-28 10:35] VITALS: BP 146/91; PULSE 71; RESP 18; TEMP 36.4; O2SAT 95; BMI 32.5
[2023-02-28 10:41] LABS: Basophils % 0.4 %; Eosinophils # 0.1 10^3/uL (0.0-0.8); Eosinophils % 1.8 %; Hematocrit 39.5 % (37-53); Lymphocytes # 0.7 10^3/uL (0.8-4.8); Lymphocytes % 26.8 %; Mean Corpuscular HGB Conc 31.1 g/dL (30-55); Mean Corpuscular Hemoglobin 31.3 pg (27-33); Mean Corpuscular Volume 100.5 fl (82-101); Mean Platelet Volume 10.7 fL (7.4-10.4); Monocytes # 0.4 10^3/uL (0.2-0.9); Monocytes % 14.5 %; Neutrophils # 1.55 10^3/uL (1.8-7.7); Neutrophils % 56.1 %; Nucleated Red Blood Cells % 0 %; Platelet Count 115 10^3/cmm (157-399); Red Blood Count 3.93 10^6/uL (3.85-5.65); Red Cell Distribution Width 13.2 % (12.1-15.1); White Blood Count 2.76 10^3/uL (3.29-11.43)
[2023-02-28 10:59] LABS: Alanine Aminotransferase 13 U/L (0-41); Albumin Level 3.8 g/dL (3.5-5.2); Alkaline Phosphatase 72 U/L (40-130); Aspartate Amino Transferase 14 U/L (0-40); Blood Urea Nitrogen 15 mg/dL (8-23); Calcium 8.4 mg/dL (8.5-10.5); Carbon Dioxide 28 mmol/L (22-29); Chloride 107 mmol/L (98-107); Globulin 3.1 g/dL (1.3-4.6); Glucose 147 mg/dL (65-115); Osmolality Calculated 302 mOsm/kg (285-295); Sodium 144 mmol/L (136-145); Total Bilirubin 0.4 mg/dL (0.15-1.2); Total Protein 6.9 g/dL (6.6-8.7)
[2023-02-28 11:55] VITALS: BP 127/95; PULSE 59; O2SAT 93
--- NOTE | 2023-02-28 12:01 | PC.NURSE ---
typewriter ribbon winder assumed care of pt at 1158, report from Michell Bentley.
--- NOTE | 2023-02-28 12:03 | CTR_ITS ---
PROCEDURE INFORMATION: Exam: CT Abdomen And Pelvis With Contrast Exam date and time: 02/28/2023 12:35 PM Age: 77 years old Clinical indication: Abdominal pain; Localized; Lower; Additional info: Lower abd pain/ gross hematuria TECHNIQUE: Imaging protocol: Computed tomography of the abdomen and pelvis with contrast. Radiation optimization: All CT scans at this facility use at least one of these dose optimization techniques: automated exposure control; mA and/or kV adjustment per patient size (includes targeted exams where dose is matched to clinical indication); or iterative reconstruction. Contrast material: OMNI 350; Contrast volume: 100 ml; Contrast route: INTRAVENOUS (IV); COMPARISON: CT chest abdpel w/*[id number] 11/07/2022 9:42 AM RADIATION DOSE METRICS: Total DLP (mGy-cm): 1194.07 FINDINGS: Lungs: Lung bases are clear as visulized. Benign calcified granulomas in the mediastinum and zach. Liver: 1.5 cm nonspecific cystic lesion in superior aspect of the left lobe (series 3, image 14) is stable. Gallbladder and bile ducts: Normal. No calcified stones. No ductal dilation. Pancreas: Benign scattered calcifications, similar to previous study. No ductal dilation. Spleen: Scattered benign calcified granulomas. No splenomegaly. Adrenal glands: Normal. No mass. Kidneys and ureters: Simple cortical cyst in left kidney largest measuring 5.5 cm, stable. No further workup recommended. No hydronephrosis. 2 mm nonobstructing calculus in lower calyx of left kidney noted. Stomach and bowel: Diverticulosis of colon noted. No acute inflammatory changes. No obstruction. No mucosal thickening. Appendix: No evidence of appendicitis. Intraperitoneal space: Unremarkable. No free air. No significant fluid collection. Vasculature: Atherosclerotic calcifications throughout aorta and iliac vessels. No abdominal aortic aneurysm. Lymph nodes: Unremarkable. No enlarged lymph nodes. Urinary bladder: Distended urinary bladder with chronic appearing minimal wall thickening is similar to previous study. Reproductive: Prostate gland is normal size. Bones/joints: Sclerotic foci in multiple thoracolumbar vertebrae again noted. No acute compression fracture. Avascular necrosis changes of right femoral head (up to 50% of the weight-bearing portion) again noted. Prominent spondylotic changes of lower lumbar spine with facet joint arthritic changes also noted. Soft tissues: Unremarkable. CT/CT abdomen pelvis w con* [id number] IMPRESSION: 1. No acute findings. 2. 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 Chronic appearing urinary bladder wall thickening also noted.
[2023-02-28 12:15] VITALS: BP 144/75; RESP 16; O2SAT 94
[2023-02-28 12:35] VITALS: BP 144/75
[2023-02-28] MEDS: iohexol 350 mg/mL 500 mL Btl (per mL) IV (12:38)
[2023-02-28 12:39] LABS: Urine Appearance Bloody (CLEAR); Urine Color Red (Yellow)
[2023-02-28 12:40] LABS: Add Urine Culture? Yes; Bacteria Urine 1+ /hpf; Bilirubin Urine Neg (Negative); Blood Urine 3+ (Negative); Glucose Urine UA Norm (Normal); Ketones Urine Negative (Negative); Leukocyte Esterase Urine Negative (Negative); Nitrate Urine Negative (Negative); Protein Urine 1+ (Negative); RBC Urine TOO NUMEROUS TO CNT /hpf (0-2); Sulfosalicylic Acid Urine Positive (Negative); Urobilinogen Urine 1 mg/dL (Negative); WBC Urine 25-40 /hpf (0-5); pH Urine 9 (5-7)
[2023-02-28] MEDS: cefTRIAXone 1,000 MG in sodium chloride 0.9% (plus) 50 ML 100 MG IV (13:26)
[2023-02-28 13:29] VITALS: BP 144/75; PULSE 65; O2SAT 94
[2023-02-28 13:47] VITALS: BP 164/106; PULSE 78; O2SAT 93
== END 2023-02-28 13:57 | disposition home or self-care (01) ==
PROVIDERS: Emergency Provider Internal Medicine; PCP Family Medicine
DX: N30.01 Acute cystitis with hematuria (principal); D70.9 Neutropenia, unspecified; Z79.01 Long term (current) use of anticoagulants; Z79.82 Long term (current) use of aspirin; Z79.84 Long term (current) use of oral hypoglycemic drugs; Z87.891 Personal history of nicotine dependence; E78.5 Hyperlipidemia, unspecified; E11.9 Type 2 diabetes mellitus without complications; I10 Essential (primary) hypertension; J44.9 Chronic obstructive pulmonary disease, unspecified; Z85.46 Personal history of malignant neoplasm of prostate; Z85.850 Personal history of malignant neoplasm of thyroid
CPT/HCPCS: 36415; 51702; 74177; 80053; 81001; 85025; 87086; 96365; 99285; J0696; Q9967

== ENCOUNTER 2023-03-25 07:52 | Outpatient (CLI) | payer MEDICARE, MEDICAID, SELFPAY ==
[2023-03-25 08:14] LABS: Basophils % 0.8 %; Eosinophils # 0.1 10^3/uL (0.0-0.8); Eosinophils % 2.7 %; Hematocrit 40.3 % (37-53); Lymphocytes # 0.9 10^3/uL (0.8-4.8); Lymphocytes % 23.4 %; Mean Corpuscular HGB Conc 31.8 g/dL (30-55); Mean Corpuscular Hemoglobin 31.8 pg (27-33); Mean Platelet Volume 10.6 fL (7.4-10.4); Monocytes # 0.5 10^3/uL (0.2-0.9); Neutrophils # 2.17 10^3/uL (1.8-7.7); Neutrophils % 58.3 %; Nucleated Red Blood Cells % 0 %; Platelet Count 131 10^3/cmm (157-399); Red Blood Count 4.03 10^6/uL (3.85-5.65); Red Cell Distribution Width 13.3 % (12.1-15.1); White Blood Count 3.72 10^3/uL (3.29-11.43)
[2023-03-25 08:45] LABS: Alanine Aminotransferase 13 U/L (0-41); Albumin Level 3.9 g/dL (3.5-5.2); Alkaline Phosphatase 86 U/L (40-130); Anion Gap 12.2 (5-19); Aspartate Amino Transferase 12 U/L (0-40); Blood Urea Nitrogen 22 mg/dL (8-23); Calcium 8.8 mg/dL (8.5-10.5); Carbon Dioxide 30 mmol/L (22-29); Chloride 104 mmol/L (98-107); Globulin 3.4 g/dL (1.3-4.6); Glucose 164 mg/dL (65-115); Osmolality Calculated 301 mOsm/kg (285-295); Potassium 4.2 mmol/L (3.5-5.1); Sodium 142 mmol/L (136-145); Thyroid Stimulating Hormone 0.16 uIU/mL (0.27-4.20); Total Bilirubin 0.2 mg/dL (0.15-1.2); Total Protein 7.3 g/dL (6.6-8.7)
[2023-03-30 14:50] LABS: Thyroglobulin AB 60 IU/mL (< or = 1)
[2023-04-02 22:54] LABS: Thyroglobulin Level <0.4 ng/mL
== END 2023-03-25 07:53 | disposition home or self-care (01) ==
LOC: LAB 07:55
PROVIDERS: Nurse Practitioner Family; PCP Family Medicine; Visit Provider Internal Medicine
DX: E89.0 Postprocedural hypothyroidism (principal); C73 Malignant neoplasm of thyroid gland; C61 Malignant neoplasm of prostate
CPT/HCPCS: 36415; 80053; 84153; 84432; 84439; 84443; 85025; 86800

== ENCOUNTER → 2023-04-01 09:09 | Outpatient (BNVA) | payer MEDICARE, MEDICAID, SELFPAY | PROVIDERS: PCP Family Medicine; Visit Provider Internal Medicine | DX: E89.0 Postprocedural hypothyroidism (principal); C73 Malignant neoplasm of thyroid gland | CPT/HCPCS: 99214 ==

== ENCOUNTER → 2023-04-07 09:46 | Outpatient (BNVA) | payer MEDICARE, MEDICAID, SELFPAY | PROVIDERS: PCP Family Medicine; Visit Provider Podiatrist Foot & Ankle Surgery | DX: L84 Corns and callosities (principal); E13.620 Other specified diabetes mellitus with diabetic dermatitis; L60.3 Nail dystrophy; G62.89 Other specified polyneuropathies | CPT/HCPCS: 11056; 11721 ==

== ENCOUNTER 2023-04-09 12:28 | Oncology outpatient (recurring) (ONCR) | payer MEDICARE, MEDICAID, SELFPAY ==
[2023-04-09] MEDS: denosumab 120 mg SDV SUBCUT (14:07)
[2023-04-09] MEDS: lidocaine 1% INJ 20 mL MDV (mL) SUBCUT (14:08)
[2023-04-09] MEDS: goserelin acetate 10.8 mg Implant 10.8000000000000007 MG SUBCUT (14:31)
== END 2023-04-09 23:59 | disposition home or self-care (01) ==
PROVIDERS: PCP Family Medicine; Visit Provider Internal Medicine Medical Oncology
DX: Z51.11 Encounter for antineoplastic chemotherapy (principal); C61 Malignant neoplasm of prostate; C79.51 Secondary malignant neoplasm of bone; N40.1 Benign prostatic hyperplasia with lower urinary tract symptoms; N13.8 Other obstructive and reflux uropathy; Z79.818 Long term (current) use of other agents affecting estrogen receptors and estrogen levels; Z87.891 Personal history of nicotine dependence
CPT/HCPCS: 96401; 96402; 99214; J0897; J9202

== ENCOUNTER → 2023-04-17 10:19 | Outpatient (BNVA) | payer OTHER, MEDICAID, SELFPAY | PROVIDERS: PCP Family Medicine; Visit Provider Family Medicine | DX: E11.9 Type 2 diabetes mellitus without complications | CPT/HCPCS: 83036 ==

== ENCOUNTER → 2023-05-25 08:14 | Day surgery (SDC) | payer OTHER, MEDICAID, SELFPAY ==
--- NOTE | 2023-05-25 08:24 | XR_ITS ---
WS: [id number] Exam: XR chest 1V portable [id number] Date/Time of Exam: 05/25/2023 8:55 AM Reason For Exam: Post PICC insertion Comparison 06/08/2020. Right-sided PICC line is been placed and appears to end at the cavoatrial junction. The lungs are armand ar. Normal cardiomediastinal silhouette. No pleural effusions. Regional bony structures appear normal . Numerous calcified granulomas bilaterally. IMPRESSION: 1. Right-sided PICC line ending at the cavoatrial junction. No acute process noted.
[2023-05-25 08:25] VITALS: BP 170/90; PULSE 73; RESP 18; TEMP 36.6; O2SAT 97
--- NOTE | 2023-05-25 09:27 | PICC.NOTE ---
Double lumen PICC placed to right basilic vein. Referred to vascular access nurse for PICC placement due to need for chemo. Risks and benefits discussed and informed consent obtained. Right arm assessed with right basilic vein measuring 5.4 mm, straight, and apparent best choice for placement. Using sterile technique and MST, right basilic vein accessed x 1 stick. Mid-arm circumference measured 10 cm from right AC 31.5 cm. Trimmed cath 49 cm with 1 cm external length noted. CXR shows tip in SVC, cavoatrial junction, in good position for use per radiologist. Line secured with stat-lock. Insertion site covered with Biopatch and TSM. [facility].
== END ==
PROVIDERS: PCP Family Medicine; Visit Provider Internal Medicine Medical Oncology
DX: Z45.2 Encounter for adjustment and management of vascular access device (principal)
CPT/HCPCS: 36573; 71045

== ENCOUNTER 2023-06-08 10:00 | Oncology outpatient (recurring) (ONCR) | payer OTHER, MEDICAID, SELFPAY ==
[2023-05-26 13:34] LABS: Basophils % 0.5 %; Eosinophils # 0.1 10^3/uL (0.0-0.8); Eosinophils % 0.9 %; Hematocrit 39.8 % (37-53); Lymphocytes # 0.5 10^3/uL (0.8-4.8); Lymphocytes % 8.3 %; Mean Corpuscular HGB Conc 32.4 g/dL (30-55); Mean Corpuscular Hemoglobin 31.9 pg (27-33); Mean Corpuscular Volume 98.3 fl (82-101); Mean Platelet Volume 10.9 fL (7.4-10.4); Monocytes # 0.3 10^3/uL (0.2-0.9); Neutrophils # 4.69 10^3/uL (1.8-7.7); Neutrophils % 84.2 %; Nucleated Red Blood Cells % 0 %; Platelet Count 129 10^3/cmm (157-399); Red Blood Count 4.05 10^6/uL (3.85-5.65); Red Cell Distribution Width 12.9 % (12.1-15.1); White Blood Count 5.57 10^3/uL (3.29-11.43)
[2023-05-26 14:01] LABS: Alanine Aminotransferase 16 U/L (0-41); Alkaline Phosphatase 82 U/L (40-130); Aspartate Amino Transferase 13 U/L (0-40); Blood Urea Nitrogen 17 mg/dL (8-23); Calcium 8.7 mg/dL (8.5-10.5); Carbon Dioxide 26 mmol/L (22-29); Chloride 102 mmol/L (98-107); Creatinine Clr Calc Pharmacy 94.5994; Globulin 3.1 g/dL (1.3-4.6); Glucose 250 mg/dL (65-115); Osmolality Calculated 302 mOsm/kg (285-295); Sodium 141 mmol/L (136-145); Total Bilirubin 0.2 mg/dL (0.15-1.2); Total Protein 7.1 g/dL (6.6-8.7)
[2023-05-26 14:05] LABS: Anion Gap 17.7 (5-19); Potassium 4.7 mmol/L (3.5-5.1); Testosterone Total < 2.5 ng/dL (193-740)
[2023-05-27] MEDS: sodium chloride 0.9% 250 ML 75 ML IV (11:28)
[2023-05-27] MEDS: diphenhydrAMINE 50 mg/mL SDV 1mL 25 MG IVP (11:29)
[2023-05-27] MEDS: famotidine 20 mg/2 mL INJ IVP (11:30)
[2023-05-27] MEDS: palonosetron 0.25 mg/5 mL SDV IVP (11:31)
[2023-05-27] MEDS: DOCEtaxeL 140 MG in sodium chloride 0.9%(non-DEHP) 250 ML 264 MG IV (12:21)
[2023-05-27 12:25] VITALS: BP 124/75; PULSE 62; RESP 16; TEMP 36.4; O2SAT 91
[2023-05-27 13:55] VITALS: BP 158/75; PULSE 65; RESP 16; TEMP 36.5; O2SAT 92
[2023-06-03 14:53] LABS: Basophils % 1.9 %; Eosinophils % 1.9 %; Hematocrit 36.8 % (37-53); Lymphocytes # 0.3 10^3/uL (0.8-4.8); Lymphocytes % 61.5 %; Mean Corpuscular HGB Conc 32.9 g/dL (30-55); Mean Corpuscular Hemoglobin 31.8 pg (27-33); Mean Corpuscular Volume 96.6 fl (82-101); Mean Platelet Volume 11.3 fL (7.4-10.4); Monocytes # 0.1 10^3/uL (0.2-0.9); Monocytes % 17.3 %; Neutrophils % 17.4 %; Nucleated Red Blood Cells % 0 %; Platelet Count 117 10^3/cmm (157-399); Red Blood Count 3.81 10^6/uL (3.85-5.65); Red Cell Distribution Width 12.4 % (12.1-15.1)
[2023-06-03 15:05] LABS: White Blood Count 0.52 10^3/uL (3.29-11.43)
[2023-06-03 15:06] LABS: Neutrophils # 0.09 10^3/uL (1.8-7.7)
[2023-06-03 15:12] LABS: Alanine Aminotransferase 13 U/L (0-41); Albumin Level 3.4 g/dL (3.5-5.2); Alkaline Phosphatase 71 U/L (40-130); Anion Gap 16.5 (5-19); Aspartate Amino Transferase 16 U/L (0-40); Blood Urea Nitrogen 10 mg/dL (8-23); Calcium 8.3 mg/dL (8.5-10.5); Carbon Dioxide 25 mmol/L (22-29); Chloride 101 mmol/L (98-107); Globulin 3.4 g/dL (1.3-4.6); Glucose 241 mg/dL (65-115); Osmolality Calculated 293 mOsm/kg (285-295); Potassium 4.5 mmol/L (3.5-5.1); Sodium 138 mmol/L (136-145); Total Bilirubin 0.3 mg/dL (0.15-1.2); Total Protein 6.8 g/dL (6.6-8.7)
[2023-06-03] MEDS: filgrastim-sndz 480 mcg/0.8 mL Syringe SUBCUT (16:51)
[2023-06-04] MEDS: filgrastim-sndz 480 mcg/0.8 mL Syringe SUBCUT (15:43)
[2023-06-05 09:21] VITALS: BP 100/70; PULSE 106; RESP 20; TEMP 36.6; O2SAT 90
--- NOTE | 2023-06-05 09:31 | ECG_ITS ---
[facility] Test Date: 2023-06-05 Pat Name: Charlie Jacobs Department: Room: Gender: Male Space Officer: : 1945 Requested By: Maeve Garcia Order Number: [id number] Jiménez MD: Lucinda Glass M.D. Measurements Intervals [place] Rate: 91 P: 79 IN: 159 QRS: 56 QRSD: 92 T: 71 QT: 348 QTc: 430 Interpretive Statements SINUS RHYTHM Compared to ECG 03/07/2021 12:04:46 Ventricular premature complex(es) no longer present Electronically Signed On 06-06-2023 19:21:32 CDT by Lucinda Glass M.D. [id number]
[2023-06-05 10:20] LABS: Basophils % 1.2 %; Eosinophils % 1.2 %; Lymphocytes # 0.4 10^3/uL (0.8-4.8); Lymphocytes % 45.7 %; Mean Corpuscular HGB Conc 33.8 g/dL (30-55); Mean Corpuscular Hemoglobin 32.5 pg (27-33); Mean Corpuscular Volume 96.4 fl (82-101); Mean Platelet Volume 10.7 fL (7.4-10.4); Monocytes # 0.3 10^3/uL (0.2-0.9); Monocytes % 34.6 %; Neutrophils % 8.7 %; Nucleated Red Blood Cells # 0.1 /100WBC; Nucleated Red Blood Cells % 7.4 %; Platelet Count 93 10^3/cmm (157-399); Red Blood Count 3.32 10^6/uL (3.85-5.65); Red Cell Distribution Width 12.5 % (12.1-15.1)
[2023-06-05 10:55] LABS: White Blood Count 0.81 10^3/uL (3.29-11.43)
[2023-06-05 10:56] LABS: Neutrophils # 0.07 10^3/uL (1.8-7.7)
[2023-06-05 10:57] LABS: Slide Review Slide Review Perform
[2023-06-05] MEDS: filgrastim-sndz 480 mcg/0.8 mL Syringe SUBCUT (11:05)
[2023-06-08 10:41] LABS: Hematocrit 35.8 % (37-53); Mean Corpuscular HGB Conc 31.8 g/dL (30-55); Mean Corpuscular Hemoglobin 31.1 pg (27-33); Mean Corpuscular Volume 97.8 fl (82-101); Mean Platelet Volume 10.4 fL (7.4-10.4); Platelet Count 105 10^3/cmm (157-399); Red Blood Count 3.66 10^6/uL (3.85-5.65); White Blood Count 8.86 10^3/uL (3.29-11.43)
[2023-06-08 11:19] LABS: Alanine Aminotransferase 17 U/L (0-41); Albumin Level 3.4 g/dL (3.5-5.2); Alkaline Phosphatase 81 U/L (40-130); Aspartate Amino Transferase 18 U/L (0-40); Blood Urea Nitrogen 11 mg/dL (8-23); Calcium 7.9 mg/dL (8.5-10.5); Carbon Dioxide 27 mmol/L (22-29); Chloride 105 mmol/L (98-107); Creatinine Clr Calc Pharmacy 95.0334; Globulin 2.9 g/dL (1.3-4.6); Glucose 186 mg/dL (65-115); Osmolality Calculated 298 mOsm/kg (285-295); Sodium 142 mmol/L (136-145); Total Bilirubin 0.2 mg/dL (0.15-1.2); Total Protein 6.3 g/dL (6.6-8.7)
[2023-06-08 11:20] LABS: Anion Gap 13.7 (5-19); Potassium 3.7 mmol/L (3.5-5.1)
[2023-06-08 11:52] LABS: Slide Review Slide Review Perform
[2023-06-08 11:57] LABS: Absolute Neutrophil 4.5 10^3/cmm (1.4-6.5); Absolute Segmented Neutrophil 2.6 10/cmm (1.6-7.1); Band Neutrophils Absolute 1.9 10^3/cmm (0.0-1.2); Eosinophils 0 %; Lymphocytes 13 %; Lymphocytes Absolute 1.2 10^3/cmm (1.2-3.4); Monocytes Absolute 1.1 10^3/cmm (0.1-0.6); Platelet Estimate Decreased (Normal); Segmented Neutrophils 29 %; Total Cells Counted 100 (0-100)
[2023-06-08 12:41] VITALS: BP 148/92; O2SAT 96
== END 2023-06-09 23:59 | disposition home or self-care (01) ==
PROVIDERS: Nurse Practitioner Family; PCP Family Medicine; Visit Provider Internal Medicine Medical Oncology
DX: C61 Malignant neoplasm of prostate (principal); Z53.9 Procedure and treatment not carried out, unspecified reason
CPT/HCPCS: 36592; 80053; 84153; 84403; 85007; 85025; 93005; 96367; 96372; 96375; 96413; J1100; J1200; J2469; J3490; J7050; J9171; Q5101

== ENCOUNTER 2023-06-18 08:43 | Outpatient (CLI) | payer MEDICARE, MEDICAID, SELFPAY ==
--- NOTE | 2023-06-18 09:34 | XR_ITS ---
WS: [id number] Chest 2 views, 06/18/2023 Clinical Data: Preop testing Comparison: Portable chest, 05/25/2023 Findings: No nodules, masses or effusions are seen. The heart is normal. The pulmonary vascularity is not increased. No pneumonia or pneumothorax is seen. The right PICC line remains in the same positio n. There are calcified granulomas in both zach and in the periphery of both lungs. The aortic arch an d descending thoracic aorta show calcification and tortuosity. There are surgical clips in the thyroi d bed and right side of the neck. XR/XR chest 2V* [id number] Impression: 1. Atherosclerosis. 2. Old granulomatous disease.
== END 2023-06-18 08:44 | disposition home or self-care (01) ==
PROVIDERS: PCP Family Medicine; Visit Provider Family Medicine
DX: Z01.818 Encounter for other preprocedural examination (principal); E11.9 Type 2 diabetes mellitus without complications; I70.0 Atherosclerosis of aorta
CPT/HCPCS: 71046; 93005

== ENCOUNTER → 2023-07-01 14:34 | Outpatient (BNVA) | payer MEDICARE, MEDICAID, SELFPAY | PROVIDERS: PCP Family Medicine; Visit Provider Podiatrist Foot & Ankle Surgery | DX: E11.8 Type 2 diabetes mellitus with unspecified complications (principal); L84 Corns and callosities; G62.89 Other specified polyneuropathies; L60.3 Nail dystrophy; E11.620 Type 2 diabetes mellitus with diabetic dermatitis | CPT/HCPCS: 11056; 11721 ==

== ENCOUNTER 2023-07-10 10:00 | Oncology outpatient (recurring) (ONCR) | payer MEDICARE, MEDICAID, SELFPAY ==
[2023-06-17 11:38] LABS: Basophils # 0.1 10^3/uL (0.0-0.1); Basophils % 1.7 %; Eosinophils % 0.3 %; Hematocrit 38.1 % (37-53); Lymphocytes # 0.9 10^3/uL (0.8-4.8); Lymphocytes % 29.2 %; Mean Corpuscular Hemoglobin 31.4 pg (27-33); Mean Corpuscular Volume 98.2 fl (82-101); Mean Platelet Volume 10.6 fL (7.4-10.4); Monocytes # 0.4 10^3/uL (0.2-0.9); Neutrophils # 1.62 10^3/uL (1.8-7.7); Neutrophils % 53.8 %; Nucleated Red Blood Cells % 0 %; Platelet Count 145 10^3/cmm (157-399); Red Blood Count 3.88 10^6/uL (3.85-5.65); Red Cell Distribution Width 13.3 % (12.1-15.1); White Blood Count 3.01 10^3/uL (3.29-11.43)
[2023-06-17 11:58] LABS: Alanine Aminotransferase 28 U/L (0-41); Albumin Level 3.6 g/dL (3.5-5.2); Alkaline Phosphatase 75 U/L (40-130); Aspartate Amino Transferase 17 U/L (0-40); Blood Urea Nitrogen 19 mg/dL (8-23); Calcium 8.9 mg/dL (8.5-10.5); Carbon Dioxide 27 mmol/L (22-29); Chloride 99 mmol/L (98-107); Globulin 3.1 g/dL (1.3-4.6); Glucose 166 mg/dL (65-115); Osmolality Calculated 292 mOsm/kg (285-295); Sodium 138 mmol/L (136-145); Total Bilirubin 0.2 mg/dL (0.15-1.2); Total Protein 6.7 g/dL (6.6-8.7)
[2023-06-17 12:09] LABS: Anion Gap 16.3 (5-19); Potassium 4.3 mmol/L (3.5-5.1)
[2023-07-02 08:28] VITALS: BP 108/63; PULSE 58; RESP 18; TEMP 36.2; O2SAT 96
[2023-07-02 08:39] LABS: Basophils % 0.2 %; Eosinophils % 0.2 %; Lymphocytes # 0.6 10^3/uL (0.8-4.8); Lymphocytes % 10.4 %; Mean Corpuscular HGB Conc 32.3 g/dL (30-55); Mean Corpuscular Hemoglobin 31.4 pg (27-33); Mean Corpuscular Volume 97.2 fl (82-101); Mean Platelet Volume 10.7 fL (7.4-10.4); Monocytes # 0.7 10^3/uL (0.2-0.9); Monocytes % 10.7 %; Neutrophils # 4.74 10^3/uL (1.8-7.7); Neutrophils % 77.8 %; Nucleated Red Blood Cells % 0 %; Platelet Count 180 10^3/cmm (157-399); Red Cell Distribution Width 13.4 % (12.1-15.1); White Blood Count 6.08 10^3/uL (3.29-11.43)
[2023-07-02 08:58] LABS: Alanine Aminotransferase 26 U/L (0-41); Albumin Level 3.5 g/dL (3.5-5.2); Alkaline Phosphatase 80 U/L (40-130); Anion Gap 16.3 (5-19); Aspartate Amino Transferase 20 U/L (0-40); Blood Urea Nitrogen 15 mg/dL (8-23); Calcium 8.2 mg/dL (8.5-10.5); Carbon Dioxide 25 mmol/L (22-29); Chloride 103 mmol/L (98-107); Creatinine Clr Calc Pharmacy 85.4518; Globulin 3.3 g/dL (1.3-4.6); Glucose 233 mg/dL (65-115); Osmolality Calculated 298 mOsm/kg (285-295); Potassium 4.3 mmol/L (3.5-5.1); Sodium 140 mmol/L (136-145); Total Bilirubin 0.2 mg/dL (0.15-1.2); Total Protein 6.8 g/dL (6.6-8.7)
[2023-07-02 10:59] VITALS: BP 118/72; PULSE 75; RESP 18; TEMP 36.3; O2SAT 94
[2023-07-02] MEDS: sodium chloride 0.9% 250 ML 75 ML IV (11:06)
[2023-07-02] MEDS: diphenhydrAMINE 50 mg/mL SDV 1mL 25 MG IVP (11:09)
[2023-07-02] MEDS: famotidine 20 mg/2 mL INJ IVP (11:12)
[2023-07-02] MEDS: palonosetron 0.25 mg/5 mL SDV IVP (11:15)
[2023-07-02] MEDS: DOCEtaxeL 140 MG in sodium chloride 0.9%(non-DEHP) 250 ML 264 MG IV (11:48)
[2023-07-02 13:20] VITALS: BP 152/84; PULSE 70; RESP 16; TEMP 36.6; O2SAT 95
[2023-07-02] MEDS: pegfilgrastim 6 mg/0.6 mL Kit (onpro) SUBCUT (13:24)
[2023-07-09] MEDS: sodium chloride 0.9% 1,000 ML 75 ML IV (13:01)
[2023-07-09 13:05] VITALS: RESP 17; O2SAT 94
[2023-07-09] MEDS: morphine 4 mg/mL SDV 1 mL 2 MG IVP ×2 (13:05→14:02)
[2023-07-09] MEDS: ondansetron 2 mg/ML SDV 2 mL 8 MG IVP (13:11)
[2023-07-09 13:25] LABS: Hematocrit 33.6 % (37-53); Mean Corpuscular HGB Conc 33.3 g/dL (30-55); Mean Corpuscular Hemoglobin 31.4 pg (27-33); Mean Corpuscular Volume 94.1 fl (82-101); Mean Platelet Volume 11.2 fL (7.4-10.4); Platelet Count 157 10^3/cmm (157-399); Red Blood Count 3.57 10^6/uL (3.85-5.65); Red Cell Distribution Width 13.3 % (12.1-15.1)
[2023-07-09 13:40] LABS: Alanine Aminotransferase 19 U/L (0-41); Albumin Level 3.4 g/dL (3.5-5.2); Alkaline Phosphatase 82 U/L (40-130); Anion Gap 15.1 (5-19); Aspartate Amino Transferase 18 U/L (0-40); Blood Urea Nitrogen 10 mg/dL (8-23); Carbon Dioxide 24 mmol/L (22-29); Chloride 99 mmol/L (98-107); Creatinine Clr Calc Pharmacy 83.6552; Globulin 3.3 g/dL (1.3-4.6); Glucose 179 mg/dL (65-115); Osmolality Calculated 282 mOsm/kg (285-295); Potassium 4.1 mmol/L (3.5-5.1); Sodium 134 mmol/L (136-145); Total Bilirubin 0.3 mg/dL (0.15-1.2); Total Protein 6.7 g/dL (6.6-8.7)
[2023-07-09 13:44] LABS: Lipase 10 U/L (13-60)
[2023-07-09 13:45] LABS: Specific Gravity, Urine 1.015 (1.005-1.030); Urine Appearance Cloudy (CLEAR); Urine Color Other (Yellow); pH Urine 8 (5-7)
[2023-07-09 13:46] LABS: Add Urine Microscopic? YES; Bilirubin Urine Neg (Negative); Blood Urine 3+ (Negative); Glucose Urine UA Norm (Normal); Ketones Urine 1+ (Negative); Leukocyte Esterase Urine 2+ (Negative); Nitrate Urine Positive (Negative); Protein Urine 3+ (Negative); Urobilinogen Urine 1 mg/dL (Negative)
[2023-07-09 13:50] LABS: Sulfosalicylic Acid Urine Positive (Negative)
[2023-07-09 13:56] LABS: Add Urine Culture? Yes; Amorphous Sediment Urine 1+ /hpf; Bacteria Urine 3+ /hpf; Mucus Urine 1+ /hpf; RBC Urine >100 /hpf (0-2); WBC Urine 80-100 /hpf (0-5)
[2023-07-09 14:02] VITALS: RESP 17; O2SAT 93
[2023-07-09 14:39] LABS: Absolute Segmented Neutrophil 2.9 10/cmm (1.6-7.1); Band Neutrophils Absolute 1.1 10^3/cmm (0.0-1.2); Eosinophils 0 %; Lymphocytes 8 %; Monocytes Absolute 0.6 10^3/cmm (0.1-0.6); Segmented Neutrophils 39 %; Slide Review Slide Review Perform; Total Cells Counted 100 (0-100)
[2023-07-09 14:40] LABS: Lymphocytes Absolute 1.2 10^3/cmm (1.2-3.4); Platelet Estimate Normal (Normal)
[2023-07-09 16:15] VITALS: BP 120/76; PULSE 93; RESP 17; TEMP 36.3; O2SAT 92
[2023-07-10 10:58] VITALS: BP 115/66; PULSE 74; RESP 18; TEMP 36.6; O2SAT 96
[2023-07-10] MEDS: sodium chloride 0.9% 1,000 ML 800 ML IV (11:03)
[2023-07-10] MEDS: ondansetron 2 mg/ML SDV 2 mL 8 MG IVP (11:46)
[2023-07-10 11:52] VITALS: RESP 17; O2SAT 96
[2023-07-10] MEDS: morphine 4 mg/mL SDV 1 mL 2 MG IVP (11:52)
[2023-07-10 13:10] VITALS: BP 124/75; PULSE 76; RESP 18; TEMP 36.3; O2SAT 96
== END 2023-07-10 23:59 | disposition home or self-care (01) ==
PROVIDERS: Internal Medicine Hematology & Oncology; Nurse Practitioner Family; PCP Family Medicine; Visit Provider Internal Medicine Medical Oncology
DX: Z53.9 Procedure and treatment not carried out, unspecified reason (principal); C61 Malignant neoplasm of prostate; Z79.899 Other long term (current) drug therapy
CPT/HCPCS: 80053; 81001; 83690; 84153; 85007; 85025; 87077; 87086; 87186; 96360; 96361; 96365; 96366; 96367; 96375; 96376; 96377; 96413; 99214; J1100; J1200; J2270; J2405; J2469; J2506; J3490; J7030; J7050; J9171

== ENCOUNTER 2023-07-31 11:28 | Inpatient (IN) | payer MEDICARE, MEDICAID, SELFPAY ==
[2023-07-31] VITALS (10 sets, daily range): BP systolic 98–173; BP diastolic 60–103; PULSE 103–129; RESP 16–20; TEMP 36.9–37.3; O2SAT 90–97; BMI 32.1; BMI 32.6
--- NOTE | 2023-07-31 11:34 | ECG_ITS ---
[facility] Test Date: 2023-07-31 Pat Name: Charlie Jacobs Department: Room: Gender: Male Tetryl Dissolver Operator: : 1945 Requested By: Daniel Gil Order Number: [id number] Jessy MD: Hari Fitch M.D. Measurements Intervals [place] Rate: 128 P: 84 OR: 147 QRS: 58 QRSD: 84 T: 67 QT: 313 QTc: 457 Interpretive Statements SINUS TACHYCARDIA ABNORMAL RHYTHM ECG Compared to ECG 06/18/2023 08:49:49 Sinus rhythm no longer present Electronically Signed On 07-31-2023 13:44:12 CDT by Hari Fitch M.D. [id number] f
--- NOTE | 2023-07-31 11:40 | XR_ITS ---
WS: [id number] Exam: XR chest 1V portable [id number] Date/Time of Exam: 07/31/2023 11:40 AM Reason For Exam: fall with altered mental status Comparison 06/18/2023. Lungs are clear and fully inflated. Normal cardiomediastinal silhouette. Right-sided PICC line ends a t the cavoatrial junction unchanged in position. No pleural effusions. Bony structures are intact. Ellis rgical clips in the neck. XR/XR chest 1V portable [id number] IMPRESSION: 1. No acute cardiopulmonary finding.
--- NOTE | 2023-07-31 11:45 | CTR_ITS ---
PROCEDURE INFORMATION: Exam: CT Head Without Contrast Exam date and time: 07/31/2023 12:24 PM Age: 78 years old Clinical indication: Injury or trauma; Fall; Blunt trauma (contusions or hematomas); Consciousness not specified; Additional info: Fall from standing with altered mental status TECHNIQUE: Imaging protocol: Computed tomography of the head without contrast. Axial, coronal and sagittal reformatted images were created and reviewed. Radiation optimization: All CT scans at this facility use at least one of these dose optimization techniques: automated exposure control; mA and/or kV adjustment per patient size (includes targeted exams where dose is matched to clinical indication); or iterative reconstruction. COMPARISON: MR head wo/w con [id number] 09/28/2018 10:15 AM RADIATION DOSE METRICS: Total DLP (mGy-cm): 1062.6 FINDINGS: Brain: Subtle, patchy areas of hypoattenuation in the periventricular and subcortical white matter, nonspecific but suggestive of mild chronic small vessel ischemic disease. No CT evidence of acute intracranial hemorrhage or acute territorial infarction. No significant mass effect or midline shift. Basal cisterns patent. Cerebral ventricles: Prominence of the cortical sulci, cisterns and ventricular system, consistent with cerebral and cerebellar volume loss. Paranasal sinuses: Mild mucosal thickening of the ethmoid air cells and paranasal sinuses. No fluid levels. Mastoid air cells: Minimal opacification and sclerosis of the mastoid air cells squamous. Bones: Unremarkable. No acute fracture. Soft tissues: Grossly unremarkable. Vasculature: Calcific atherosclerotic disease in the cavernous internal carotid arteries. CT/CT head wo con* [id number]: 1[address] No CT evidence of acute intracranial pathology. 2. Additional findings, as above.
--- NOTE | 2023-07-31 11:45 | CTR_ITS ---
PROCEDURE INFORMATION: Exam: CT Cervical Spine Without Contrast Exam date and time: 07/31/2023 12:24 PM Age: 78 years old Clinical indication: Injury or trauma; Fall; Blunt trauma; Additional info: Fall from standing with altered mental status TECHNIQUE: Imaging protocol: Computed tomography of the cervical spine without contrast. Axial, coronal and sagittal reformatted images were created and reviewed. Radiation optimization: All CT scans at this facility use at least one of these dose optimization techniques: automated exposure control; mA and/or kV adjustment per patient size (includes targeted exams where dose is matched to clinical indication); or iterative reconstruction. COMPARISON: NC bone scan whole body* [id number] 11/03/2022 8:00 AM RADIATION DOSE METRICS: Total DLP (mGy-cm): 824.7 FINDINGS: Bones: Osteopenia. Straightening of the normal cervical lordosis. No CT evidence of acute fracture, dislocation or subluxation. Mild anterolisthesis of C2 on C3 and C7 on T1. Mild retrolisthesis of C3 on C4 and C5 on C6. Alignment otherwise anatomic. Vertebral body heights maintained. Multilevel degenerative changes, characterized by disc space narrowing, osteophytosis and uncovertebral and facet joint hypertrophy. Multilevel spinal canal and neural foraminal stenosis. Nonspecific, benign-appearing sclerotic lesion in the T1 vertebra. Lungs: Lung apices are normal. Soft tissues: Grossly unremarkable. CT/CT cervical spin wo con* [id number]: 1[address] No CT evidence of acute cervical spine traumatic injury. 2. Additional findings, as above.
--- NOTE | 2023-07-31 11:53 | ED_ITS ---
HPI - Altered Mental Status 2 General: Chief Complaint: Altered Mental Status Stated Complaint: ams Time Seen by Provider: 07/31/23 11:33 History of Present Illness: 78-year-old male presents emergency depa rtment chief complaint of falling in his bathroom at home in which she was found to be confused by EMS patient apparently has a longstanding history of pancreatic cancer undergoing chemotherapy patient is very poor historian is unclear whether or not patient is on blood thinners. Patient appears somewhat confused on exam no focal neurodeficits were appreciated patient does not endorse any location of discomfort or pain. Patient does appear to have a chronic [place] catheter placed it is unclear whether not patient has been undergoing any recent infections or illnesses he does have a port which appears to be a central line in the right upper arm where PICC line which appears to be being used for chemotherapy patient presents to the ER by EMS for further assessment and management. Associated symptoms: Deny depression Review of Systems 2 General: Reports: 10 or more systems reviewed and unremarkable except in HPI and below Narrative: See HPI above. Const: Reports: fatigue and malaise; Denies: fever(s) or chills Eyes: Denies: change in vision or blurry vision Card: Denies: chest pain or palpitations Resp: Denies: dyspnea or productive cough GI: Denies: abdominal pain, nausea or vomiting : Denies: flank pain Musc: Denies: extremity pain or extremity swelling Skin/Breast: Denies: rash or pruritus Neuro: Denies: headache(s) Psych: Denies: anxiety or depression [place]id/Lymph: Denies: easy bleeding All/Imm: Denies: urticaria, throat swelling or facial swelling PFSH ED 2 PFSH: Medical History Cancer related pain Urinary tract infection Right kidney mass Burning sensation of feet Lumbar stenosis with neurogenic claudication Intervertebral disc disorder with radiculopathy of lumbosacral region Metastasis to bone Dyslipidemia History of diverticulitis Type 2 diabetes mellitus, without long-term current use of insulin Benign essential HTN Post-surgical hypothyroidism Insomnia GERD (gastroesophageal reflux disease) COPD (chronic obstructive pulmonary disease) 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 Other CAD (coronary artery disease) Social History Smoking and tobacco/nicotine status: never used tobacco/nicotine Quit status (tobacco/nicotine): has quit using Year quit tobacco: 2022 Former quit date comment: stopped in February of this year Alcohol intake: never Substance/Drug Use: never Lives independently: Yes Household members: spouse Marital status: Current occupational status: retired Physical Exam 2 Narrative: Heavy stench of urine appreciated on exam, the patient appears a chronic Dac[place] cath placed, the patient has no observable bruising or ecchymosis or contusions abrasions or obvious head trauma or injury patient does appear to be somewhat confused but no focal neurodeficits appreciated. Patient appears very frail and weak. Const: COMMON NORMALS: no acute distress and healthy appearing; negative for patient oriented x3 (Alert oriented x 1 no focal neurodeficits appreciated) HENMT: COMMON NORMALS: normocephalic and atraumatic HEAD & SCALP: n ormocephalic and atraumatic Eye: COMMON NORMALS: Equal, round and reactive pupils present and EOMs intact bilaterally PUPIL: Yes Equal, round and reactive pupils present Neck/C-Spine: COMMON NORMALS: full ROM, supple and no JVD Lymph: LYMPHATIC: no lymphadenopathy noted Chest: COMMONS NORMALS: normal inspection of the chest and normal palpation of entire chest wall Resp: COMMON NORMALS: normal respiratory effort, No retractions and clear to auscultation bilaterally EFFORT & INSPECTION: Yes able to speak in complete sentences and Yes symmetric chest movement AUSCULTATION: clear to auscultation bilaterally Cardio: COMMON NORMALS: no JVD and regular rhythm; negative for regular rate (tachycardic on exam in the low 100's) RATE: a bnormal rate (tachycardic on exam in the low 100's) RHYTHM: regular rhythm GI: COMMON NORMALS: Normal to inspection, nondistended, normoactive bowel sounds present, Soft to palpation and non-tender INSPECTION: Yes normal to inspection PALPATION: Yes Soft to palpation : COMMON NORMALS: Yes no CVA tenderness and No No hernias present (Suprapubic catheter appreciated) BLADDER/KIDNEY EXAM: Yes no CVA tenderness Back/Pelvis: COMMON NORMALS: no CVA tenderness Extremity: COMMON NORMALS: normal to inspection and full ROM Neuro: COMMON NORMALS: CN's II-XII intact bilaterally, moves all extremities and no focal motor deficits; negative for patient oriented x3 (Alert oriented x 1 no focal neurodeficits appreciated) Psych: COMMON NORMALS: mental status grossly normal, Normal thought process present, cooperative and normal affect THOUGHT PROCESS: Normal thought process present Skin: COMMON NORMALS: no rashes or lesions noted GENERAL SKIN EXAM: no rashes or lesions noted Course 2 Vital Signs: Vital signs: Vital Signs Temperature 98.9 F 07/31/23 11:30 Pulse Rate 108 H 07/31/23 14:30 Respiratory Rate 16 07/31/23 12:06 Blood Pressure 173/91 07/31/23 14:30 Pulse Oximetry 96 07/31/23 14:00 Oxygen Delivery Me thod Nasal Cannula 07/31/23 14:00 Oxygen Flow Rate 3 07/31/23 12:06 MDM - Altered Mental Status Medical Decision Making Due to patient's symptoms and condition IV will be established IV fluids provided for hydration with lab work and imaging obtained. Underlying concerns of closed head injury versus concussion versus bleed is prominent patient does have a heavy distention of urine which could be concerning for a urinary tract infection or other additional infection that may be contributing to his current confusion, will continue to follow.. Patient was found to have fairly complicated urinary tract infection CT imaging of the head and C-spine came back unremarkable spoke to the patient and family at length patient does have a leukocytosis 23,000 which I believe is being contributed by the UTI provide patient provided 2 g Rocephin discussed patient's case with Dr. Torres that has granted acceptance of this patient's case. Lab Data 07/31/23 12:10 07/31/23 12:10 Radiology Impressions Chest X-Ray 07/31/23 11:40 IMPRESSION: 1. No acute cardiopulmonary finding. Cervical Spine CT 07/31/23 11:[address] 1[address] evidence of acute cervical spine traumatic injury. 2. Additional findings, as above. ADDENDUM: 07/31/23 1520 ADDENDUM: Please note the sclerotic lesion seen in the T1 vertebra is compatible with the patient's known metastatic disease. Head CT 07/31/23 11:[address]: 1[address] evidence of acute intracranial pathology. 2. Additional findings, as above. Abdomen/Pelvis CT 07/31/23 14:19 IMPRESSION: 1. Circumferential urinary bladder wall thickening and perivesicular edema, compatible with cystitis. Correlate with urinalysis. 2. Additional findings, as above. COMMENTS: Consistent with the [employer]'s Incidental Findings Committee white paper (J Am Manjinder Radiol 2018): Any incidental renal lesion less than 1 cm or classified as too small to characterize, or any incidental cystic renal lesion characterized as simple-appearing, is likely benign. No follow-up imaging is recommended for these lesions per consensus recommendations based on imaging criteria. Laboratory Results WBC 23.14 10^3/uL (3.29-11.43) H 07/31/23 12:10 RBC 3.62 10^6/uL (3.85-5.65) L 07/31/23 12:10 Hgb 11.40 g/dL (11.27-16.99) 07/31/23 12:10 Hct 36.0 % (37-53) L 07/31/23 12:10 MCV 99.4 fl (82-101) 07/31/23 12:10 MCH 31.5 pg (27-33) 07/31/23 12:10 MCHC 31.7 g/dL (30-55) 07/31/23 12:10 RDW 15.5 % (12.1-15.1) H 07/31/23 12:10 Plt Count 132 10^3/cmm (157-399) L 07/31/23 12:10 MPV 11.1 fL (7.4-10.4) H 07/31/23 12:10 Neut % (Auto) 66.3 % 07/31/23 12:10 Lymph % (Auto) 5.6 % 07/31/23 12:10 [place] % (Auto) 8.0 % 07/31/23 12:10 Eos % (Auto) 0.1 % 07/31/23 12:10 Baso % (Auto) 0.1 % 07/31/23 12:10 Neut # (Auto) 15.32 10^3/uL (1.8-7.7) H 07/31/23 12:10 Lymph # (Auto) 1.3 10^3/uL (0.8-4.8) 07/31/23 12:10 [place] # (Auto) 1.9 10^3/uL (0.2-0.9) H 07/31/23 12:10 Eos # (Auto) 0.0 10^3/uL (0.0-0.8) 07/31/23 12:10 Baso # (Auto) 0.0 10^3/uL (0.0-0.1) 07/31/23 12:10 Nucleated RBC % (auto) 1.6 % 07/31/23 12:10 Nucleated RBCs # 0.4 /100WBC 07/31/23 12:10 PT 15.40 SECONDS (12.1-14.9) H 07/31/23 12:10 INR 1.18 (0.8-1.2) 07/31/23 12:10 APTT 31.7 SECONDS (23.9-36.7) 07/31/23 12:10 Sodium 138 mmol/L (136-145) 07/31/23 12:10 Potassium 4.2 mmol/L (3.5-5.1) 07/31/23 12:10 Chloride 101 mmol/L (98-107) 07/31/23 12:10 Carbon Dioxide 27 mmol/L (22-29) 07/31/23 12:10 Anion Gap 14.2 (5-19) 07/31/23 12:10 BUN 9 mg/dL (8-23) 07/31/23 12:10 Creatinine 1.2 mg/dL (0.7-1.2) 07/31/23 12:10 GFR Calculation Not Reportable 07/31/23 12:10 Glucose 216 mg/dL (65-115) H 07/31/23 12:10 Calculated Osmolality 291 mOsm/kg (285-295) 07/31/23 12:10 Lactic Acid 2.2 mmol/L (0.5-2.2) 07/31/23 12:10 Calcium 8.1 mg/dL (8.5-10.5) L 07/31/23 12:10 Total Bilirubin 0.3 mg/dL (0.15-1.2) 07/31/23 12:10 AST 19 U/L (0-40) 07/31/23 12:10 ALT 15 U/L (0-41) 07/31/23 12:10 Alkaline Phosphatase 110 U/L (40-130) 07/31/23 12:10 Troponin T Baseline 27 ng/L (0-15) H 07/31/23 12:10 Troponin T 120 Minute 28.86 ng/L (0-15) H 07/31/23 13:55 Delta Troponin T 1.86 ABS# (0-10) 07/31/23 13:55 C-Reactive Protein 59.9 mg/L (0.0-4.9) H 07/31/23 12:10 Total Protein 6.3 g/dL (6.6-8.7) L 07/31/23 12:10 Albumin 3.6 g/dL (3.5-5.2) 07/31/23 12:10 Globulin 2.7 g/dL (1.3-4.6) 07/31/23 12:10 Urine Color Yellow (Yellow) 07/31/23 12:59 Urine Appearance Cloudy (CLEAR) A 07/31/23 12:59 Urine pH 8 (5-7) H 07/31/23 12:59 Ur Specific [place] 1.010 (1.005-1.030) 07/31/23 12:59 Urine Protein 1+ (Negative) H 07/31/23 12:59 Urine Glucose (UA) Norm (Normal) 07/31/23 12:59 Urine Ketones 1+ (Negative) H 07/31/23 12:59 Urine Blood 3+ (Negative) H 07/31/23 12:59 Urine Nitrate Positive (Negative) H 07/31/23 12:59 Urine Bilirubin Neg (Negative) 07/31/23 12:59 Prot Sulfosalicylic Acd Positive (Negative) 07/31/23 12:59 Urine Urobilinogen 1 mg/dL (Negative) H 07/31/23 12:59 Ur Leukocyte Esterase 1+ (Negative) H 07/31/23 12:59 Urine RBC 5-10 /hpf (0-2) H 07/31/23 12:59 Urine WBC 55-80 /hpf (0-5) H 07/31/23 12:59 Ur Squamous Epith Cells None /hpf (0-5) 07/31/23 12:59 Amorphous Sediment 1+ /hpf 07/31/23 12:59 Urine Bacteria 3+ /hpf (NONE) H 07/31/23 12:59 Urine Mucus Trace /hpf 07/31/23 12:59 Urine Opiates Screen Positive ng/mL (Negative) H 07/31/23 12:59 Ur Barbiturates Screen Negative ng/mL (Negative) 07/31/23 12:59 Ur Phencyclidine Scrn Negative ng/mL (Negative) 07/31/23 12:59 Ur Amphetamines Screen Negative ng/mL (Negative) 07/31/23 12:59 U Benzodiazepines Scrn Positive ng/mL (Negative) H 07/31/23 12:59 Urine Cocaine Screen Negative ng/mL (Negative) 07/31/23 12:59 U Marijuana (THC) Screen Negative ng/mL (Negative) 07/31/23 12:59 All radiology interpretation(s) finalized by discharge Discharge Plan Discharge Patient Disposition: Admitted As Inpatient Admit Provider: Smith Torres Clinical Impression: Complicated UTI (urinary tract infection), Weakness generalized Condition: Stable Coding Level of Care Code ED Field Laborer for Gale Callahan
[2023-07-31] MEDS: sodium chloride 0.9% 1,000 ML 999 ML IV (12:09)
[2023-07-31 12:24] LABS: Basophils % 0.1 %; Eosinophils % 0.1 %; Lymphocytes # 1.3 10^3/uL (0.8-4.8); Lymphocytes % 5.6 %; Mean Corpuscular HGB Conc 31.7 g/dL (30-55); Mean Corpuscular Hemoglobin 31.5 pg (27-33); Mean Corpuscular Volume 99.4 fl (82-101); Mean Platelet Volume 11.1 fL (7.4-10.4); Monocytes # 1.9 10^3/uL (0.2-0.9); Neutrophils # 15.32 10^3/uL (1.8-7.7); Neutrophils % 66.3 %; Nucleated Red Blood Cells # 0.4 /100WBC; Nucleated Red Blood Cells % 1.6 %; Platelet Count 132 10^3/cmm (157-399); Red Blood Count 3.62 10^6/uL (3.85-5.65); Red Cell Distribution Width 15.5 % (12.1-15.1); White Blood Count 23.14 10^3/uL (3.29-11.43)
[2023-07-31 12:34] LABS: INR 1.18 (0.8-1.2)
[2023-07-31 12:35] LABS: Partial Thromboplastin Time 31.7 SECONDS (23.9-36.7)
[2023-07-31 12:39] LABS: Troponin(5th) Baseline 27 ng/L (0-15)
[2023-07-31 12:40] LABS: Lactic Sepsis W/Reflex 2.2 mmol/L (0.5-2.2)
[2023-07-31 12:41] LABS: Alanine Aminotransferase 15 U/L (0-41); Albumin Level 3.6 g/dL (3.5-5.2); Alkaline Phosphatase 110 U/L (40-130); Anion Gap 14.2 (5-19); Aspartate Amino Transferase 19 U/L (0-40); Blood Urea Nitrogen 9 mg/dL (8-23); C Reactive Protein 59.9 mg/L (0.0-4.9); Calcium 8.1 mg/dL (8.5-10.5); Carbon Dioxide 27 mmol/L (22-29); Chloride 101 mmol/L (98-107); Creatinine Clr Calc Pharmacy 67.9411; Globulin 2.7 g/dL (1.3-4.6); Glucose 216 mg/dL (65-115); Osmolality Calculated 291 mOsm/kg (285-295); Potassium 4.2 mmol/L (3.5-5.1); Sodium 138 mmol/L (136-145); Total Bilirubin 0.3 mg/dL (0.15-1.2); Total Protein 6.3 g/dL (6.6-8.7)
[2023-07-31 13:01] LABS: Slide Review Slide Review Perform
[2023-07-31 13:15] LABS: Add Urine Microscopic? YES; Amphetamines Screen Urine Negative (Negative); Barbiturates Screen Urine Negative (Negative); Benzodiazepines Screen Urine Positive (Negative); Bilirubin Urine Neg (Negative); Blood Urine 3+ (Negative); Cocaine Screen Urine Negative (Negative); Glucose Urine UA Norm (Normal); Ketones Urine 1+ (Negative); Leukocyte Esterase Urine 1+ (Negative); Nitrate Urine Positive (Negative); Opiate Screen Urine Positive (Negative); PCP Screen Urine Negative (Negative); Protein Urine 1+ (Negative); Sulfosalicylic Acid Urine Positive (Negative); THC Screen Urine Negative (Negative); Urine Appearance Cloudy (CLEAR); Urine Color Yellow (Yellow); Urobilinogen Urine 1 mg/dL (Negative); pH Urine 8 (5-7)
[2023-07-31 13:18] LABS: Amorphous Sediment Urine 1+ /hpf; Bacteria Urine 3+ /hpf; Mucus Urine TRACE /hpf; WBC Urine 55-80 /hpf (0-5)
[2023-07-31 13:24] LABS: Add Urine Culture? Yes
[2023-07-31] MEDS: cefTRIAXone 2,000 MG in sodium chloride 0.9% (plus) 50 ML 100 MG IV (13:41)
[2023-07-31 14:05] LABS: Reflex Lactate Order REFLEX LACTIC ORDERD
--- NOTE | 2023-07-31 14:19 | CTR_ITS ---
PROCEDURE INFORMATION: Exam: CT Abdomen And Pelvis Without Contrast Exam date and time: 07/31/2023 2:48 PM Age: 78 years old Clinical indication: Abdominal tenderness; Additional info: H/o renal stones has UTI TECHNIQUE: Imaging protocol: Computed tomography of the abdomen and pelvis without contrast.Axial, coronal and sagittal reformatted images were created and reviewed. Radiation optimization: All CT scans at this facility use at least one of these dose optimization techniques: automated exposure control; mA and/or kV adjustment per patient size (includes targeted exams where dose is matched to clinical indication); or iterative reconstruction. COMPARISON: CT abdomen pelvis w con* [id number] 02/28/2023 12:35 PM RADIATION DOSE METRICS: Total DLP (mGy-cm): 1187.53 FINDINGS: Tubes, catheters and devices: Suprapubic catheter in place. Circumferential urinary bladder wall thickening and perivesicular edema. Lungs: Linear/discoid stranding and groundglass at the lung bases with subsegmental consolidation in the right lower lobe, likely due to atelectasis and/or scarring. Scattered bibasilar calcified granulomata. Liver: Unremarkable. Gallbladder and biliary ducts: Moderate gallbladder distension without radiodense gallstones. Pancreas: Coarse pancreatic parenchymal calcifications, consistent with chronic pancreatitis. Spleen: Coarse calcified splenic granulomata. Adrenal glands: Normal. No mass. Kidneys and ureters: Left renal cysts, measuring up to 5.6 cm (no follow-up is indicated based on the imaging appearance). Nonobstructing left renal calculus. No hydronephrosis. Stomach and bowel: Colonic diverticulosis without evidence of diverticulitis. No obstruction. No bowel wall thickening. No pneumatosis. Appendix: Normal. Intraperitoneal space: No free fluid. No organized fluid collection. No free air. Vasculature: Moderate atherosclerotic disease. No aneurysm. Lymph nodes: Calcified mediastinal and hilar lymph nodes, consistent with prior granulomatous disease. Urinary bladder: See Tubes, catheters and devices finding. Reproductive: Apparent postoperative changes in the prostate gland. Bones/joints: No acute osseous abnormality. Osteopenia. Degenerative changes. Multiple scattered sclerotic lesions, similar to prior more likely secondary to metastatic disease. Avascular necrosis of the right femoral head. Soft tissues: Small, fat containing inguinal hernias. CT/CT kidney stone [id number] IMPRESSION: 1. Circumferential urinary bladder wall thickening and perivesicular edema, compatible with cystitis. Correlate with urinalysis. 2. Additional findings, as above. COMMENTS: Consistent with the [employer]'s Incidental Findings Committee white paper (J Am Manjinder Radiol 2018): Any incidental renal lesion less than 1 cm or classified as too small to characterize, or any incidental cystic renal lesion characterized as simple-appearing, is likely benign. No follow-up imaging is recommended for these lesions per consensus recommendations based on imaging criteria.
[2023-07-31 14:33] LABS: Troponin 5 2HR 28.86 ng/L (0-15); Troponin 5 2HR Delta 1.86 ABS# (0-10)
--- NOTE | 2023-07-31 14:53 | PC.NURSE ---
Attempted to call report, nurse not available and will call me back
--- NOTE | 2023-07-31 15:19 | PC.NURSE ---
Report called to [facility] on med/surg. Will hold pt here until after renal CT is resulted per request from Dr Torres
--- NOTE | 2023-07-31 15:37 | P.HP_ITS ---
Providers/Chief Complaint 2 Admitting Physician: Smith Torres MD Primary Care Provider: Jose Thomason MD Chief Complaint: ams History of Present Illness Charlie Jacobs is a 78 year old male castrate resistant metastatic prostate cancer, cancer-related pain on chronic p.o. morphine, history of thyroid cancer, history of type 2 diabetes mellitus, history of suprapubic catheter, currently on chemotherapy, recently suprapubic catheter was placed on June 21 changed on July 13, who presents to [facility] due to fatigue, malaise, altered mental status. Currently patient alert to person, place, not to time he follows all commands, is at bedside, patient reports abdominal pain nausea vomiting. Patient's tells me that patient has been intermittently confused, has had fatigue, malaise, he completed a session of chemotherapy, was started on Bactrim for a UTI, he required Neupogen due to leukopenia, patient's went outside the home and returned a few hours later and found patient on the floor, complaining of nausea, vomiting, abdominal pain, he does have a right PICC line in place, for which she receives chemotherapy Review of Systems 2 Const: Reports: chills, fatigue and malaise; Denies: fever(s) Card: Denies: chest pain Resp: Denies: dyspnea GI: Reports: abdominal pain, nausea and vomiting Skin/Breast: Reports: rash Medications/Allergies Home Medications Medication Instructions Recorded Confirmed Last Taken Type aspirin 81 mg tablet,delayed 81 mg PO DAILY 03/29/19 07/31/23 07/30/23 History release nitroglycerin 0.4 mg sublingual 0.4 mg sublingual Q5M PRN Chest 07/21/22 07/31/23 05/24/23 Rx tablet (Nitrostat) Pain #30 tabs Walker #1 ea 07/28/22 07/31/23 05/24/23 Rx Walker #1 ea 07/28/22 07/31/23 05/24/23 Rx RSV vaccine #1 ea 11/04/22 07/31/23 05/24/23 Rx mv-mn-folic 200 mcg-vit K 15 1 cap PO DAILY 04/09/23 07/31/23 07/30/23 History mcg-lutein 5 mg-zeaxanthin 1 mg capsule (PreserVision AREDS 2 Plus Multivit) fluticasone fur. 100 mcg-umeclid 1 ea inhalation DAILY #60 ea 04/17/23 07/31/23 07/30/23 Rx 62.5 mcg-vilant 25 mcg inhalat.powder (Trelegy Ellipta) levothyroxine 175 mcg tablet See Rx Instructions .Route 04/17/23 07/31/23 07/31/23 Rx .COMPLEX #90 tabs tamsulosin 0.4 mg capsule 0.4 mg PO QPM 04/17/23 07/31/23 07/30/23 History finasteride 5 mg tablet 5 mg PO QPM 05/20/23 07/31/23 07/30/23 History dexamethasone 4 mg tablet 8 mg (2 x 4 mg) PO BID #18 tabs 05/26/23 07/31/23 Unknown Rx lorazepam 1 mg tablet 0.5 - 1 mg (0.5 - 1 x 1 mg) 05/27/23 07/31/23 07/31/23 Rx sublingual Q6H PRN Severe nausea #30 tabs denosumab 120 mg/1.7 mL (70 mg/mL) 120 mg SUBCUT .Q12 weeks 06/17/23 07/31/23 Unknown History subcutaneous solution acetaminophen 500 mg capsule 1,000 mg PO Q6H PRN Pain 07/02/23 07/31/23 Unknown History prednisone 5 mg tablet 5 mg PO BID #42 tabs 07/02/23 07/31/23 Unknown Rx prochlorperazine maleate 10 mg 10 mg PO Q4H PRN Mild Nausea #30 07/02/23 07/31/23 Unknown Rx tablet (Compazine) tabs morphine 15 mg immediate release 15 mg PO Q6H PRN pain 30 days #120 07/10/23 07/31/23 Unknown Rx tablet tabs trazodone 50 mg tablet 50 mg PO DAILY #30 tabs 07/13/23 07/31/23 07/30/23 Rx famotidine 20 mg tablet 20 mg PO BID #60 tabs 07/29/23 07/31/23 07/30/23 Rx apixaban 5 mg tablet (Eliquis) 5 mg PO BID 07/31/23 07/31/23 07/30/23 History carbamazepine 100 mg 100 mg PO BID 07/31/23 07/31/2307/29/24 History tablet,extended release,12 hr esomeprazole magnesium 40 mg 40 mg PO BID 07/31/23 07/31/23 07/30/23 History capsule,delayed release glipizide 2.5 mg tablet, extended 2.5 mg PO QAM 07/31/23 07/31/23 07/30/23 History release 24 hr lactobacillus combination no.4 3 3,000 mmu cells PO DAILY 07/31/23 07/31/23 07/30/23 History billion cell capsule (Probiotic) loratadine 10 mg tablet (Claritin) 10 mg PO QPM 07/31/23 07/31/23 07/30/23 History meclizine 25 mg tablet 25 mg PO TID 07/31/23 07/31/23 07/30/23 History metoclopramide HCl 5 mg tablet 5 mg PO TID 07/31/23 07/31/23 07/30/23 History metoprolol succinate 25 mg 25 mg PO QAM 07/31/23 07/31/23 07/30/23 History tablet,extended release 24 hr montelukast 10 mg tablet 10 mg PO QAM 07/31/23 07/31/23 07/30/23 History rosuvastatin 40 mg tablet 40 mg PO BEDTIME 07/31/23 07/31/23 07/30/23 History sitagliptin phosphate 100 mg 100 mg PO QAM 07/31/23 07/31/23 07/30/23 History tablet (Januvia) Allergies Allergy/AdvReac Type Severity Reaction Status Date / Time vancomycin Allergy HIVES,RASH Verified 07/23/23 12:25 PFSH Acute 2 PFSH: Medical History Cancer related pain Urinary tract infection Right kidney mass Burning sensation of feet Lumbar stenosis with neurogenic claudication Intervertebral disc disorder with radiculopathy of lumbosacral region Metastasis to bone Dyslipidemia History of diverticulitis Type 2 diabetes mellitus, without long-term current use of insulin Benign essential HTN Post-surgical hypothyroidism Insomnia GERD (gastroesophageal reflux disease) COPD (chronic obstructive pulmonary disease) 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 Other CAD (coronary artery disease) Social History Smoking and tobacco/nicotine status: never used tobacco/nicotine Quit status (tobacco/nicotine): has quit using Year quit tobacco: 2022 Former quit date comment: stopped in February of this year Alcohol intake: never Substance/Drug Use: never Lives independently: Yes Household members: spouse Marital status: Current occupational status: retired Vitals/I&O/Wt Last Vital Signs Temp 98.9 F 07/31/23 11:30 Pulse 108 H 07/31/23 14:30 Resp 16 07/31/23 12:06 BP 173/91 07/31/23 14:30 Pulse Ox 96 07/31/23 14:00 O2 Del Method Nasal Cannula 07/31/23 14:00 O2 Flow Rate 3 07/31/23 12:06 07/31/23 07/31/23 07/31/23 06:59 14:59 22:59 Intake Total 1050 / 1050 Balance 1050 / 1050 Weight last 48 hrs Weight 113.398 kg Physical Exam 2 Const: COMMON NORMALS: no acute distress EXAM LIMITATIONS: altered mental status GENERAL APPEARANCE: frail appearing ORIENTATION/CONSCIOUSNESS: Yes awake, Yes oriented to person, Yes oriented to place and Yes confused; not oriented to time HENMT: COMMON NORMALS: normocephalic HEAD & SCALP: normocephalic Eye: COMMON NORMALS: Equal, round and reactive pupils present Neck/C-Spine: COMMON NORMALS: no JVD Lymph: LYMPHATIC: no lymphadenopathy noted Resp: COMMON NORMALS: normal respiratory effort, No retractions, No use of accessory muscles and clear to auscultation bilaterally AUSCULTATION: clear to auscultation bilaterally Cardio: COMMON NORMALS: regular rhythm, S1 normal heart sound present and S2 normal heart sound present RATE: tachycardic RHYTHM: regular rhythm H EART SOUNDS: S1 normal heart sound present and S2 normal heart sound present GI: OTHER: Abdomen soft, distended, diffuse abdominal tenderness, no guarding, no rebound, rigidity Extremity: COMMON NORMALS: no calf tenderness and no pedal edema Neuro: COMMON NORMALS: CN's II-XII intact bilaterally and moves all extremities OTHER: Has intermittent episodes of confusion Skin: OTHER: Right PICC line in place, has superficial skin breakdowns around PICC line site ? Has a suprapubic catheter in place Sepsis: Is patient septic: Yes Focused sepsis exam performed: Yes F ocused sepsis exam: DP PT pulses within normal limits, cap refill greater than 2 seconds no mottling Date exam was performed: 07/31/23 Time exam was performed: 15:41 Data 07/31/23 12:10 07/31/23 12:10 Micro: Microbiology 07/31/23 12:05 Blood Culture - Preliminary Blood SPECIMEN COLLECTED 07/31/23 12:10 Blood Culture - Preliminary Blood SPECIMEN COLLECTED A&P Assessment and plan (1) Complicated UTI (urinary tract infection): (2) BPH with obstruction/lower urinary tract symptoms: (3) Sepsis: (4) Altered mental status: (5) Chemotherapy-induced nausea and vomiting: (6) Deep vein thrombosis (DVT) of left lower extremity: Qualifiers: Affected thrombotic vein of extremity: popliteal Chronicity: acute Qualified Code(s): I82.432 - Acute embolism and thrombosis of left popliteal vein (7) Type 2 diabetes mellitus, without long-term current use of insulin: Qualifiers: Diabetes mellitus complication status: without complication Qualified Code(s): E11.9 - Type 2 diabetes mellitus without complications (8) COPD (chronic obstructive pulmonary disease): Qualifiers: COPD type: emphysema Emphysema type: panlobular Qualified Code(s): J 43.1 - Panlobular emphysema (9) Prostate cancer metastatic to bone: (10) Thyroid cancer: (11) Chemotherapy induced neutropenia: (12) Benign essential HTN: (13) CAD (coronary artery disease): Qualifiers: Coronary Disease-Associated Artery/Lesion type: unspecified vessel or lesion type [place] vs. transplanted heart: [place] heart Associated angina: w ith stable angina Qualified Code(s): I25.118 - Atherosclerotic heart disease of [place] coronary artery with other forms of angina pectoris (14) MENDEZ (dyspnea on exertion): (15) Dyslipidemia: (16) Suprapubic catheter: Plan Complicated UTI ? With suprapubic catheter in place ? With patient on chemotherapy for prostate cancer ? Immunocompromise state, on prednisone ? With sepsis features, given tachycardia, altered mental status, leukocytosis, elevated troponins ? Plan ? Start meropenem, zyvox ? Follow blood cultures Follow urine cultures ? Suprapubic catheter was changed on July 12 ? CT scan abdomen pelvis, Monitor clinical status closely ? IV fluids ? Cardiac diet ? Full code ? Eliquis for DVT prophylaxis Sepsis, secondary complicated UTI Altered mental status Secondary to complicated UTI ? Neurochecks, aspiration precautions NSTEMI ? Type I versus type II ? Serial EKGs, troponins, telemetry monitoring History of prostate cancer, on chemotherapy Right PICC line in place Cancer related pain ? Continue home morphine Type 2 diabetes mellitus, low-dose sliding scale Full code ? Eliquis for DVT prophylaxis Protonix for GI prophylaxis ? Isolation precautions for chemotherapy Attestations 2 Medical Necessity Statement*: Patient requires hospitalization, inpatient, greater than 2 midnights, for complicated UTI secondary to immunocompromise state, chemotherapy for prostate cancer, suprapubic catheter, sepsis, altered mental status, NSTEMI Diagnoses Complicated UTI (urinary tract infection) N39.0 BPH with obstruction/lower urinary tract symptoms N40.1; N13.8 Sepsis A41.9 Altered mental status R41.82 Chemotherapy-induced nausea and vomiting R11.2; T45.1X5A Acute deep vein thrombosis (DVT) of popliteal vein of left lower extremity I82.432 Affected thrombotic vein of extremity: popliteal Chronicity: acute Type 2 diabetes mellitus without complication, without long-term current use of insulin E11.9 Diabetes mellitus complication status: without complication 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 transplanted heart: [place] heart Associated angina: with stable angina MENDEZ (dyspnea on exertion) R06.00 Dyslipidemia E78.5 Suprapubic catheter Z93.59
[2023-07-31 15:47] LABS: Lactic Acid level (Lactate) 2.1 mmol/L (0.5-2.2)
[2023-07-31 15:51] LABS: INR 1.17 (0.8-1.2)
[2023-07-31 15:58] LABS: Estmated Average Glucose 214; Hemoglobin A1C 9.1 % (4.0-6.0)
[2023-07-31 16:16] LABS: NT Pro B Type Natriuretic Pept 436 pg/mL (0-450); Thyroid Stimulating Hormone 1.46 uIU/mL (0.27-4.20)
[2023-07-31 16:32] LABS: Chol HDL Ratio 3.73 mg/dL (1.0-5.00); Cholesterol 112 mg/dL (0-200); HDL Cholesterol 30 mg/dL (60-100); LDL Cholesterol Calculated 53 mg/dL (50-129); LDL HDL Ratio 1.77 RATIO (0.00-3.22); Triglycerides 144 mg/dL (0-150)
[2023-07-31 16:42] LABS: Glucose Point of Care 191 mg/dL (70-110)
[2023-07-31 16:49] LABS: T3 Free 1.9 PG/ML (2.0-4.4)
[2023-07-31] MEDS: sodium chloride 0.9% 1,000 ML 75 ML IV (18:07)
[2023-07-31] MEDS: meropenem 1,000 MG in sodium chloride 0.9% (plus) 50 ML 100 MG IV ×2 (18:08→22:54)
[2023-07-31] MEDS: linezolid premix 600 MG/300 ML PREMIX 300 MG IV (18:10)
[2023-07-31] MEDS: pantoprazole 40 mg SDV IVP (18:12)
[2023-07-31] MEDS: predniSONE 5 mg Tablet PO (18:15)
[2023-07-31] MEDS: carBAMazepine XR (12 HR) 100 mg Tablet PO (18:15)
[2023-07-31] MEDS: apixaban 5 mg Tablet PO (18:15)
[2023-07-31] MEDS: tamsulosin 0.4 mg Capsule 0.400000000000000022 MG PO (18:15)
[2023-07-31] MEDS: insulin lispro 100 unit/1 mL SUBCUT (18:16)
[2023-07-31] MEDS: finasteride 5 mg Tablet PO (18:16)
[2023-07-31 18:29] LABS: Procalcitonin 0.93 ng/mL (0-0.5)
[2023-07-31 20:28] LABS: Glucose Point of Care 230 mg/dL (70-110)
[2023-07-31] MEDS: trazodone 50 mg Tablet PO (20:35)
[2023-07-31] MEDS: atorvastatin 40 mg Tablet 80 MG PO (20:35)
[2023-08-01] VITALS (7 sets, daily range): BP systolic 105–130; BP diastolic 60–75; PULSE 70–98; RESP 15–19; TEMP 36.3–37.2; O2SAT 90–97
[2023-08-01] MEDS: linezolid premix 600 MG/300 ML PREMIX 300 MG IV ×2 (04:07→17:23)
[2023-08-01 05:12] LABS: Basophils % 0.2 %; Hematocrit 31.5 % (37-53); Lymphocytes # 1.1 10^3/uL (0.8-4.8); Lymphocytes % 5.1 %; Mean Corpuscular HGB Conc 30.2 g/dL (30-55); Mean Corpuscular Hemoglobin 31.9 pg (27-33); Mean Corpuscular Volume 105.7 fl (82-101); Mean Platelet Volume 11.5 fL (7.4-10.4); Monocytes # 1.7 10^3/uL (0.2-0.9); Monocytes % 8.4 %; Neutrophils # 15.01 10^3/uL (1.8-7.7); Neutrophils % 72.8 %; Nucleated Red Blood Cells # 0.2 /100WBC; Nucleated Red Blood Cells % 0.9 %; Platelet Count 118 10^3/cmm (157-399); Red Blood Count 2.98 10^6/uL (3.85-5.65); Red Cell Distribution Width 15.9 % (12.1-15.1); White Blood Count 20.63 10^3/uL (3.29-11.43)
[2023-08-01] MEDS: metoprolol succinate ER (24 HR) 25 mg Tablet PO (05:15)
[2023-08-01] MEDS: levothyroxine 175 mcg Tablet 87.5 MCG PO (05:15)
[2023-08-01 05:35] LABS: Anion Gap 14.2 (5-19); Blood Urea Nitrogen 10 mg/dL (8-23); Calcium 7.5 mg/dL (8.5-10.5); Carbon Dioxide 23 mmol/L (22-29); Chloride 102 mmol/L (98-107); Creatinine Clr Calc Pharmacy 93.8182; Glucose 215 mg/dL (65-115); Osmolality Calculated 286 mOsm/kg (285-295); Potassium 4.2 mmol/L (3.5-5.1); Sodium 135 mmol/L (136-145)
[2023-08-01 05:52] LABS: Glucose Point of Care 212 mg/dL (70-110)
[2023-08-01] MEDS: meropenem 1,000 MG in sodium chloride 0.9% (plus) 50 ML 100 MG IV ×2 (07:16→15:34)
--- NOTE | 2023-08-01 08:50 | PC.OT ---
OT EVALUATION ORDERS RECEIVED. PER OT WEEKEND PROTOCOL: EVALUATION HELD UNTIL THURSDAY
[2023-08-01] MEDS: sodium chloride 0.9% 1,000 ML 75 ML IV (09:33)
[2023-08-01] MEDS: insulin lispro 100 unit/1 mL SUBCUT ×3 (09:33→18:39)
[2023-08-01] MEDS: apixaban 5 mg Tablet PO ×2 (09:37→17:23)
[2023-08-01] MEDS: carBAMazepine XR (12 HR) 100 mg Tablet PO ×2 (09:37→17:23)
[2023-08-01] MEDS: aspirin 81 mg EC Tablet PO (09:37)
[2023-08-01] MEDS: predniSONE 5 mg Tablet PO ×2 (09:38→17:23)
[2023-08-01 11:05] LABS: Glucose Point of Care 156 mg/dL (70-110)
[2023-08-01 11:22] LABS: C.Diff PCR (Lab) NEGATIVE (Negative)
--- NOTE | 2023-08-01 12:13 | PM.PN ---
Subjective Subjective: Patient was seen this morning, denies any fevers, no chills, no cough, no abdominal pain no flank pain does complain of diarrhea, much more alert and awake alert oriented x 3, is at bedside Vitals/I&O/Wt Last Vital Signs Temp 97.9 F 08/01/23 11:27 Pulse 70 08/01/23 11:27 Resp 18 08/01/23 11:27 BP 130/71 08/01/23 11:27 Pulse Ox 94 08/01/23 11:27 O2 Del Method Nasal Cannula 08/01/23 11:27 O2 Flow Rate 4 08/01/23 11:27 07/31/23 08/01/23 08/01/23 22:59 06:59 14:59 Intake Total 570 / 1620 470 / 2090 1050 / 1050 Output Total 300 / 300 800 / 1100 Balance 270 / 1320 -330 / 990 1050 / 1050 Weight last 48 hrs Weight 119.884 kg Weight 118.388 kg Weight 113.398 kg Physical Exam Const: COMMON NORMALS: no acute distress and patient oriented x3 Resp: COMMON NORMALS: normal respiratory effort, No retractions, No use of accessory muscles and clear to auscultation bilaterally AUSCULTATION: clear to auscultation bilaterally Cardio: COMMON NORMALS: regular rate, regular rhythm, S1 normal heart sound present and S2 normal heart sound present RATE: regular rate RHYTHM: regular rhythm HEART SOUNDS: S1 normal heart sound present and S2 normal heart sound present GI: COMMON NORMALS: Normal to inspection, nondistended, normoactive bowel sounds present and non-tender Extremity: COMMON NORMALS: no pedal edema Neuro: COMMON NORMALS: patient oriented x3 Psych: COMMON NORMALS: mental status grossly normal Data 08/01/23 04:33 08/01/23 04:33 Micro: Microbiology 07/31/23 12:59 Urine Culture - Preliminary Urine,Clean Catch Gram Negative Rods 07/31/23 12:05 Blood Culture - Preliminary Blood SPECIMEN COLLECTED 07/31/23 12:10 Blood Culture - Preliminary Blood SPECIMEN COLLECTED A&P Assessment and plan (1) Complicated UTI (urinary tract infection): (2) BPH with obstruction/lower urinary tract symptoms: (3) Sepsis: (4) Altered mental status: (5) Chemotherapy-induced nausea and vomiting: (6) Deep vein thrombosis (DVT) of left lower extremity: Qualifiers: Affected thrombotic vein of extremity: popliteal Chronicity: acute Qualified Code(s): I82.432 - Acute embolism and thrombosis of left popliteal vein (7) Type 2 diabetes mellitus, without long-term current use of insulin: Qualifiers: Diabetes mellitus complication status: without complication Qualified Code(s): E11.9 - Type 2 diabetes mellitus without complications (8) COPD (chronic obstructive pulmonary disease): Qualifiers: COPD type: emphysema Emphysema type: panlobular Qualified Code(s): J43.1 - Panlobular emphysema (9) Prostate cancer metastatic to bone: (10) Thyroid cancer: (11) Chemotherapy induced neutropenia: (12) Benign essential HTN: (13) CAD (coronary artery disease): Qualifiers: Coronary Disease-Associated Artery/Lesion type: unspecified vessel or lesion type [place] vs. transplanted heart: [place] heart Associated angina: with stable angina Qualified Code(s): I25.118 - Atherosclerotic heart disease of [place] coronary artery with other forms of angina pectoris (14) MENDEZ (dyspnea on exertion): (15) Dyslipidemia: (16) Suprapubic catheter: Plan Complicated UTI ? With suprapubic catheter in place ? With patient on chemotherapy for prostate cancer ? Immunocompromise state, on prednisone ? With sepsis features, given tachycardia, altered mental status, leukocytosis, elevated troponins ? Plan ? meropenem, zyvox ? Follow blood cultures Follow urine cultures ? Suprapubic catheter was changed on July 12 ? CT scan abdomen pelvis, Monitor clinical status closely ? Cardiac diet ? Full code ? Eliquis for DVT prophylaxis Sepsis, secondary complicated UTI Altered mental status Secondary to complicated UTI ? Neurochecks, aspiration precautions NSTEMI ? Type I versus type II ? Serial EKGs, troponins, telemetry monitoring History of prostate cancer, on chemotherapy Right PICC line in place Cancer related pain ? Continue home morphine Type 2 diabetes mellitus, low-dose sliding scale Full code ? Eliquis for DVT prophylaxis Protonix for GI prophylaxis ? Isolation precautions for chemotherapy Plan for today continue IV antibiotics, monitor clinical status, de-escalate fluid therapy, pain control, stool studies Attestations Medical Necessity Statement*: Patient requires hospitalization for UTI, sepsis Diagnoses Complicated UTI (urinary tract infection) N39.0 BPH with obstruction/lower urinary tract symptoms N40.1; N13.8 Sepsis A41.9 Altered mental status R41.82 Chemotherapy-induced nausea and vomiting R11.2; T45.1X5A Acute deep vein thrombosis (DVT) of popliteal vein of left lower extremity I82.432 Affected thrombotic vein of extremity: popliteal Chronicity: acute Type 2 diabetes mellitus without complication, without long-term current use of insulin E11.9 Diabetes mellitus complication status: without complication 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 transplanted heart: [place] heart Associated angina: with stable angina MENDEZ (dyspnea on exertion) R06.00 Dyslipidemia E78.5 Suprapubic catheter Z93.59
[2023-08-01] MEDS: pantoprazole 40 mg SDV IVP (15:34)
[2023-08-01] MEDS: tamsulosin 0.4 mg Capsule 0.400000000000000022 MG PO (17:23)
[2023-08-01] MEDS: finasteride 5 mg Tablet PO (17:23)
[2023-08-01 17:45] LABS: Glucose Point of Care 234 mg/dL (70-110)
[2023-08-01] MEDS: ondansetron 2 mg/ML SDV 2 mL 4 MG IVP (18:39)
[2023-08-01 20:16] LABS: Glucose Point of Care 224 mg/dL (70-110)
[2023-08-01] MEDS: atorvastatin 40 mg Tablet 80 MG PO (20:52)
[2023-08-01] MEDS: trazodone 50 mg Tablet PO (20:52)
[2023-08-02] VITALS (7 sets, daily range): BP systolic 113–145; BP diastolic 71–86; PULSE 69–78; RESP 16–19; TEMP 36.6–36.9; O2SAT 93–99
[2023-08-02] MEDS: meropenem 1,000 MG in sodium chloride 0.9% (plus) 50 ML 100 MG IV ×3 (00:31→16:31)
[2023-08-02] MEDS: metoprolol succinate ER (24 HR) 25 mg Tablet PO (05:30)
[2023-08-02] MEDS: linezolid premix 600 MG/300 ML PREMIX 300 MG IV (05:30)
[2023-08-02 05:47] LABS: Glucose Point of Care 166 mg/dL (70-110)
[2023-08-02 06:29] LABS: Hematocrit 32.1 % (37-53); Mean Corpuscular HGB Conc 30.5 g/dL (30-55); Mean Corpuscular Hemoglobin 30.7 pg (27-33); Mean Corpuscular Volume 100.6 fl (82-101); Mean Platelet Volume 11.3 fL (7.4-10.4); Platelet Count 90 10^3/cmm (157-399); Red Blood Count 3.19 10^6/uL (3.85-5.65); Red Cell Distribution Width 15.7 % (12.1-15.1); White Blood Count 11.66 10^3/uL (3.29-11.43)
[2023-08-02 06:51] LABS: Anion Gap 11.2 (5-19); Blood Urea Nitrogen 8 mg/dL (8-23); Calcium 7.9 mg/dL (8.5-10.5); Carbon Dioxide 27 mmol/L (22-29); Chloride 104 mmol/L (98-107); Creatinine Clr Calc Pharmacy 106.1896; Glucose 166 mg/dL (65-115); Osmolality Calculated 288 mOsm/kg (285-295); Potassium 4.2 mmol/L (3.5-5.1); Sodium 138 mmol/L (136-145)
[2023-08-02] MEDS: ondansetron 2 mg/ML SDV 2 mL 4 MG IVP ×2 (06:51→16:30)
[2023-08-02 07:18] LABS: Slide Review Slide Review Perform
[2023-08-02 07:22] LABS: Absolute Neutrophil 9.6 10^3/cmm (1.4-6.5); Anisocytosis 1+; Band Neutrophils Absolute 1.5 10^3/cmm (0.0-1.2); Eosinophils 0 %; Lymphocytes 11 %; Lymphocytes Absolute 1.3 10^3/cmm (1.2-3.4); Macrocytosis Trace; Monocytes Absolute 0.1 10^3/cmm (0.1-0.6); Platelet Estimate Decreased (Normal); Poikilocytosis Trace; Segmented Neutrophils 69 %; Total Cells Counted 100 (0-100); Toxic Granulation 1+
[2023-08-02] MEDS: insulin lispro 100 unit/1 mL SUBCUT ×3 (08:16→17:50)
[2023-08-02] MEDS: carBAMazepine XR (12 HR) 100 mg Tablet PO ×2 (08:17→17:35)
[2023-08-02] MEDS: predniSONE 5 mg Tablet PO ×2 (08:17→17:35)
[2023-08-02] MEDS: apixaban 5 mg Tablet PO ×2 (08:17→17:35)
[2023-08-02] MEDS: aspirin 81 mg EC Tablet PO (08:17)
[2023-08-02 11:57] LABS: Glucose Point of Care 155 mg/dL (70-110)
--- NOTE | 2023-08-02 13:16 | P.PN_ITS ---
Subjective 2 Subjective: Patient was seen this morning, he continues to complain of diarrhea, no fevers, no chills, no abdominal pain, stool studies are pending Vitals/I&O/Wt Last Vital Signs Temp 97.8 F 08/02/23 12:00 Pulse 74 08/02/23 12:00 Resp 19 H 08/02/23 12:00 BP 142/86 08/02/23 12:00 Pulse Ox 93 08/02/23 12:00 O2 Del Method Room Air 08/02/23 12:00 O2 Flow Rate 4 08/02/23 08:05 08/01/23 08/02/23 08/02/23 22:59 06:59 14:59 Intake Total 1178.75 / 2278.75 590 / 2868.75 410 / 410 Output Total 1400 / 1400 700 / 2100 Balance -221.25 / 878.75 -110 / 768.75 410 / 410 Weight last 48 hrs Weight 119.884 kg Weight 119.884 kg Weight 118.388 kg Physical Exam 2 Const: COMMON NORMALS: no acute distress and patient oriented x3 Resp: COMMON NORMALS: normal respiratory effort, No retractions, No use of accessory muscles and clear to auscultation bilaterally AUSCULTATION: clear to auscultation bilaterally Cardio: COMMON NORMALS: regular rate, regular rhythm, S1 normal heart sound present and S2 normal heart sound present RATE: regular rate RHYTHM: r egular rhythm HEART SOUNDS: S1 normal heart sound present and S2 normal heart sound present GI: COMMON NORMALS: Normal to inspection, nondistended, normoactive bowel sounds present, non-tender and no bruits Extremity: COMMON NORMALS: no pedal edema Neuro: COMMON NORMALS: patient oriented x3 Psych: COMMON NORMALS: mental status grossly normal Data 08/02/23 05:41 08/02/23 05:41 Micro: Microbiology 08/01/23 12:13 Stool Lactoferrin - Final Stool Occult Blood (FIT) - Final 07/31/23 12:05 Blood Culture - Preliminary Blood NEGATIVE TO DATE 07/31/23 12:10 Blood Culture - Preliminary Blood NEGATIVE TO DATE 07/31/23 12:59 Urine Culture - Preliminary Urine,Clean Catch Gram Negative Rods A&P Assessment and plan (1) Complicated UTI (urinary tract infection): (2) BPH with obstruction/lower urinary tract symptoms: (3) Sepsis: (4) Altered mental status: (5) Chemotherapy-induced nausea and vomiting: (6) Deep vein thrombosis (DVT) of left lower extremity: Qualifiers: Affected thrombotic vein of extremity: popliteal Chronicity: acute Qualified Code(s): I82.432 - Acute embolism and thrombosis of left popliteal vein (7) Type 2 diabetes mellitus, without long-term current use of insulin: Qualifiers: Diabetes mellitus complication status: without complication Qualified Code(s): E11.9 - Type 2 diabetes mellitus without complications (8) COPD (chronic obstructive pulmonary disease): Qualifiers: COPD type: emphysema Emphysema type: panlobular Qualified Code(s): J 43.1 - Panlobular emphysema (9) Prostate cancer metastatic to bone: (10) Thyroid cancer: (11) Chemotherapy induced neutropenia: (12) Benign essential HTN: (13) CAD (coronary artery disease): Qualifiers: Coronary Disease-Associated Artery/Lesion type: unspecified vessel or lesion type [place] vs. transplanted heart: [place] heart Associated angina: w ith stable angina Qualified Code(s): I25.118 - Atherosclerotic heart disease of [place] coronary artery with other forms of angina pectoris (14) MENDEZ (dyspnea on exertion): (15) Dyslipidemia: (16) Suprapubic catheter: Plan Complicated UTI ? With suprapubic catheter in place ? With patient on chemotherapy for prostate cancer ? Immunocompromise state, on prednisone ? With sepsis features, given tachycardia, altered mental status, leukocytosis, elevated troponins ? Plan ? meropenem, stopped zyvox ? Follow blood cultures -Follow urine cultures ? Suprapubic catheter was changed on July 12 -Monitor clinical status closely ? Cardiac diet ? Full code ? Eliquis for DVT prophylaxis Sepsis, secondary complicated UTI, resolving Altered mental status, resolving Secondary to complicated UTI ? Neurochecks, aspiration precautions NSTEMI ? Type I versus type II ? Serial EKGs, troponins, telemetry monitoring History of prostate cancer, on chemotherapy Right PICC line in place, for chemotherapy Cancer related pain ? Continue home morphine Type 2 diabetes mellitus, low-dose sliding scale Diarrhea, stool studies Full code ? Eliquis for DVT prophylaxis Protonix for GI prophylaxis ? Isolation precautions for chemotherapy Plan for today continue IV antibiotics, monitor clinical status, de-escalate fluid therapy, pain control, stool studies Attestations 2 Medical Necessity Statement*: Patient requires hospitalization for UTI, sepsis, diarrhea Diagnoses Complicated UTI (urinary tract infection) N39.0 BPH with obstruction/lower urinary tract symptoms N40.1; N13.8 Sepsis A41.9 Altered mental status R41.82 Chemotherapy-induced nausea and vomiting R11.2; T45.1X5A Acute deep vein thrombosis (DVT) of popliteal vein of left lower extremity I82.432 Affected thrombotic vein of extremity: popliteal Chronicity: acute Type 2 diabetes mellitus without complication, without long-term current use of insulin E11.9 Diabetes mellitus complication status: without complication 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 transplanted heart: [place] heart Associated angina: with stable angina MENDEZ (dyspnea on exertion) R06.00 Dyslipidemia E78.5 Suprapubic catheter Z93.59
[2023-08-02 16:28] LABS: Glucose Point of Care 180 mg/dL (70-110)
[2023-08-02] MEDS: pantoprazole 40 mg SDV IVP (16:30)
[2023-08-02] MEDS: tamsulosin 0.4 mg Capsule 0.400000000000000022 MG PO (17:35)
[2023-08-02] MEDS: finasteride 5 mg Tablet PO (17:35)
[2023-08-02 20:09] LABS: Glucose Point of Care 214 mg/dL (70-110)
[2023-08-02] MEDS: atorvastatin 40 mg Tablet 80 MG PO (20:48)
[2023-08-02] MEDS: trazodone 50 mg Tablet PO (20:48)
[2023-08-03] VITALS (9 sets, daily range): BP systolic 122–162; BP diastolic 59–89; PULSE 65–97; RESP 17–20; TEMP 36.3–36.9; O2SAT 93–99
[2023-08-03] MEDS: meropenem 1,000 MG in sodium chloride 0.9% (plus) 50 ML 100 MG IV ×4 (00:04→23:54)
[2023-08-03] MEDS: ondansetron 2 mg/ML SDV 2 mL 4 MG IVP ×2 (04:29→13:48)
[2023-08-03 05:15] LABS: Basophils % 0.3 %; Eosinophils % 0.2 %; Hematocrit 30.9 % (37-53); Lymphocytes # 0.6 10^3/uL (0.8-4.8); Lymphocytes % 9.5 %; Mean Corpuscular HGB Conc 31.1 g/dL (30-55); Mean Corpuscular Hemoglobin 31.2 pg (27-33); Mean Corpuscular Volume 100.3 fl (82-101); Mean Platelet Volume 11.6 fL (7.4-10.4); Monocytes # 0.6 10^3/uL (0.2-0.9); Monocytes % 10.1 %; Neutrophils # 4.51 10^3/uL (1.8-7.7); Neutrophils % 73.7 %; Nucleated Red Blood Cells # 0.1 /100WBC; Nucleated Red Blood Cells % 1.1 %; Platelet Count 87 10^3/cmm (157-399); Red Blood Count 3.08 10^6/uL (3.85-5.65); Red Cell Distribution Width 15.7 % (12.1-15.1); White Blood Count 6.12 10^3/uL (3.29-11.43)
[2023-08-03 05:23] LABS: Anion Gap 11.1 (5-19); Blood Urea Nitrogen 8 mg/dL (8-23); Calcium 8.2 mg/dL (8.5-10.5); Carbon Dioxide 28 mmol/L (22-29); Chloride 106 mmol/L (98-107); Creatinine Clr Calc Pharmacy 106.1896; Glucose 161 mg/dL (65-115); Osmolality Calculated 294 mOsm/kg (285-295); Potassium 4.1 mmol/L (3.5-5.1); Sodium 141 mmol/L (136-145)
[2023-08-03] MEDS: levothyroxine 175 mcg Tablet PO (05:31)
[2023-08-03] MEDS: metoprolol succinate ER (24 HR) 25 mg Tablet PO (05:31)
[2023-08-03 06:07] LABS: Glucose Point of Care 138 mg/dL (70-110)
[2023-08-03] MEDS: apixaban 5 mg Tablet PO ×2 (08:26→17:27)
[2023-08-03] MEDS: predniSONE 5 mg Tablet PO ×2 (08:26→17:25)
[2023-08-03] MEDS: aspirin 81 mg EC Tablet PO (08:26)
[2023-08-03] MEDS: carBAMazepine XR (12 HR) 100 mg Tablet PO ×2 (08:26→17:25)
--- NOTE | 2023-08-03 09:27 | PC.CHAP ---
Pastoral Care Encounter/Spiritual Assessment Type of Contact [] Declined children counselor visit [] Patient/Family/Request visit [] Outpatient visit [] Follow-up visit [] Physician referral [] Code/Alert [x] Routine visit [] Staff referral [] Actively dying [] Patient sleeping [] Family support [] [] Out of room [] Palliative care [] [] Receiving care in room [] Pre-surgical visit [] Trauma [] Long length of stay [] ICU visit [] Other: Relational/Emotional Strength [] Patient feels connected with others/family/visitors/staff [] Distress [] Loneliness/isolation [] Abandonment Spirituality of Patient [] Person of Sully [] Attends Alevism of their S[place] [] Believes in Prayer [] Reads Bible or Mu-Ism materials [] There are Spiritual issues to be addressed Journalists And Other Writers Interventions [] Prayer [] Active listening [] Non-anxious presence [] Spiritual/emotional support [] Crisis/trauma care [] Spiritual counseling [] Bereavement support [] Provided bereavement packet [] Provided Bible/devotional materials [] Provided toy/stuffed animal, coloring book to patient or family member [] Provided Communion [] Anointing/[place] [] Salvation [] Completed spiritual assessment [] Other: Impact on Illness or Injury [] Angry [] Fearful [] Anxious [] Often cries [] Exhaustion [] Unable to work [] Unable to attend yarsani [] Unable to walk/stand [] Unable to read [] Unable to drive [] Unable to eat/drink [] Unable to sleep [] Unable to be with family [] Patient intubated [] Other: Summary reverse isolation Time spent with patient
[2023-08-03 11:21] LABS: Glucose Point of Care 207 mg/dL (70-110)
[2023-08-03] MEDS: insulin lispro 100 unit/1 mL SUBCUT ×2 (11:30→17:24)
[2023-08-03] MEDS: pantoprazole 40 mg SDV IVP (14:57)
[2023-08-03 16:45] LABS: Glucose Point of Care 199 mg/dL (70-110)
[2023-08-03] MEDS: tamsulosin 0.4 mg Capsule 0.400000000000000022 MG PO (17:25)
[2023-08-03] MEDS: finasteride 5 mg Tablet PO (17:25)
--- NOTE | 2023-08-03 20:02 | P.PN_ITS ---
Subjective 2 Subjective: He reports that he is feeling well. Denies any complaints. No pain or discomfort. No dysuria. Does not urinate through the urethra but still denies any burning or discomfort. Vitals/I&O/Wt Last Vital Signs Temp 98.0 F 08/03/23 19:58 Pulse 97 08/03/23 19:58 Resp 18 08/03/23 19:58 BP 153/89 08/03/23 19:58 Pulse Ox 93 08/03/23 19:58 O2 Del Method Room Air 08/03/23 19:58 O2 Flow Rate 3 08/03/23 09:01 08/03/23 08/03/23 08/03/23 06:59 14:59 22:59 Intake Total 290 / 1710 290 / 290 890 / 1180 Output Total 800 / 2100 600 / 600 Balance -510 / -390 290 / 290 290 / 580 Weight last 48 hrs Weight 119.794 kg Weight 119.884 kg Physical Exam 2 Narrative: Accompanied by his . Const: COMMON NORMALS: patient oriented x3 and alert GENERAL APPEARANCE: c ooperative ORIENTATION/CONSCIOUSNESS: Yes awake HENMT: COMMON NORMALS: oropharynx normal Neck/C-Spine: COMMON NORMALS: no JVD Resp: COMMON NORMALS: normal respiratory effort and clear to auscultation bilaterally AUSCULTATION: clear to auscultation bilaterally Cardio: COMMON NORMALS: no JVD, regular rhythm, S1 normal heart sound present, S2 normal heart sound present and No murmurs present (Cardio) RHYTHM: regular rhythm HEART SOUNDS: S1 normal heart sound present and S2 normal heart sound present GI: COMMON NORMALS: Normal to inspection, nondistended, normoactive bowel sounds present, Soft to palpation and non-tender PALPATION: Yes Soft to palpation : OTHER: Suprapubic catheter. Extremity: COMMON NORMALS: no joint enlargement and no pedal edema Neuro: COMMON NORMALS: patient oriented x3 and moves all extremities S ENSORIUM/ORIENTATION: Yes alert Data 08/03/23 04:24 08/03/23 04:24 A&P Assessment and plan (1) Complicated UTI (urinary tract infection): (2) BPH with obstruction/lower urinary tract symptoms: (3) Sepsis: (4) Altered mental status: (5) Chemotherapy-induced nausea and vomiting: (6) Deep vein thrombosis (DVT) of left lower extremity: Qualifiers: Affected thrombotic vein of extremity: popliteal Chronicity: acute Qualified Code(s): I82.432 - Acute embolism and thrombosis of left popliteal vein (7) Type 2 diabetes mellitus, without long-term current use of insulin: Qualifiers: Diabetes mellitus complication status: without complication Qualified Code(s): E11.9 - Type 2 diabetes mellitus without complications (8) COPD (chronic obstructive pulmonary disease): Qualifiers: COPD type: emphysema Emphysema type: panlobular Qualified Code(s): J 43.1 - Panlobular emphysema (9) Prostate cancer metastatic to bone: (10) Thyroid cancer: (11) Chemotherapy induced neutropenia: (12) Benign essential HTN: (13) CAD (coronary artery disease): Qualifiers: Coronary Disease-Associated Artery/Lesion type: unspecified vessel or lesion type [place] vs. transplanted heart: [place] heart Associated angina: w ith stable angina Qualified Code(s): I25.118 - Atherosclerotic heart disease of [place] coronary artery with other forms of angina pectoris (14) MENDEZ (dyspnea on exertion): (15) Dyslipidemia: (16) Suprapubic catheter: Plan Complicated UTI: Reviewed vitals, CBC, BMP, urine culture. He is afebrile, without leukocytosis. Subjectively he is doing well. Urine culture is growing and MDRO Morganella, ESBL and with intermediate sensitivities to Carbapenem. Discussed with him and his . Discussed concern for failure of treatment with Carbapenem, dangerous in his situation with him and compromise with malignancy, chemotherapy. However, discussed also risk of toxicity with aminoglycosides. Discussed consideration of colonization of suprapubic catheter. They are agreeable to stay for also infectious disease consultation and would like to hear their opinion, discussed with ID provider, appreciate consultation. Continue meropenem for now as per discussion. Monitor for risk of seizure. Follow-up vitals, CBC. Discussed with nursing, piano case maker in rounds this morning. Thrombocytopenia: Follow-up platelet level. ? With suprapubic catheter in place ? With patient on chemotherapy for prostate cancer ? Immunocompromise state, on prednisone ? With sepsis features, given tachycardia, altered mental status, leukocytosis, elevated troponins Sepsis, secondary complicated UTI, resolving Altered mental status, resolved. Secondary to complicated UTI ? Neurochecks, aspiration precautions NSTEMI: He is doing well, without chest pain or discomfort. ? Type I versus type II ? Serial EKGs, troponins, telemetry monitoring History of prostate cancer, on chemotherapy Right PICC line in place, for chemotherapy Cancer related pain ? Continue home morphine Type 2 diabetes mellitus, low-dose sliding scale Diarrhea, stool studies Full code ? Eliquis for DVT prophylaxis Protonix for GI prophylaxis ? Isolation precautions for chemotherapy Attestations 2 Medical Necessity Statement*: Continue admission for assessment and management of complicated UTI with MDRO ESBL organism with partial resistance to Carbapenem in a gentleman with many compromised with malignancy, on prednisone. 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 transplanted heart: [place] heart Associated angina: with stable angina MENDEZ (dyspnea on exertion) R06.00 Dyslipidemia E78.5 Suprapubic catheter Z93.59
[2023-08-03] MEDS: atorvastatin 40 mg Tablet 80 MG PO (20:16)
[2023-08-03] MEDS: trazodone 50 mg Tablet PO (20:16)
[2023-08-03 20:18] LABS: Glucose Point of Care 240 mg/dL (70-110)
[2023-08-03] MEDS: acetaminophen 325 mg Tablet 650 MG PO (21:03)
[2023-08-04] VITALS: BP 122/59; PULSE 80; RESP 17; TEMP 36.9
[2023-08-04 04:00] VITALS: BP 122/59; BP 140/69; PULSE 68; PULSE 80; RESP 17; RESP 19; TEMP 36.6; TEMP 36.9; O2SAT 90
[2023-08-04] MEDS: levothyroxine 175 mcg Tablet PO (05:11)
[2023-08-04] MEDS: metoprolol succinate ER (24 HR) 25 mg Tablet PO (05:11)
[2023-08-04 06:41] LABS: Glucose Point of Care 180 mg/dL (70-110)
[2023-08-04 07:20] VITALS: BP 155/87; PULSE 72; RESP 17; TEMP 36.4; O2SAT 91
[2023-08-04] MEDS: insulin lispro 100 unit/1 mL SUBCUT ×2 (07:25→12:04)
[2023-08-04] MEDS: ondansetron 2 mg/ML SDV 2 mL 4 MG IVP (07:25)
[2023-08-04] MEDS: meropenem 1,000 MG in sodium chloride 0.9% (plus) 50 ML 100 MG IV ×2 (07:30→14:13)
--- NOTE | 2023-08-04 07:44 | P.CONIM_ITS ---
Providers/Reason For Consult 2 Consulting Physician/Specialty*: Soo Solis MD/ Infectious Disease Reason for Consult*: UTI with MDR organisms Requesting Physician: Mikey El MD Attending Physician: Mikey El Primary Care Provider: Jose Thomason MD History of Present Illness History of Present Illness Charlie Jacobs is a 78 year old male with metastatic prostate cancer, originally diagnosed in 2006 at which time he was treated with external beam radiation therapy, status post antiandrogen therapy with Lupron and Casodex. Significant history of orchiectomy completed in 2017. He developed resistant metastatic disease since July 2018. He started treatment with docetaxel and prednisone on 05/27/2023. Patient developed Hematuria in March of this year following which he was diagnosed with a UTI. He received a [place] catheter at that time which unfortunately became chronic for him. Eventually this was converted into a suprapubic catheter around May 2023. He follows with urology in [place]. He is starting to be able to pass urine through his urethra and is expected to have suprapubic catheter removal in October of this year. He has been diagnosed with multiple UTIs since March of this year. Most appear to have been treated with oral antibiotics. Patient states that during some of these episodes he has had some abdominal discomfort but otherwise has not had any remarkable symptoms. No fever or chills. About a month ago he was diagnosed with a UTI by his urologist at which time it appears he also had a cystoscopy. Per patient's description he was found to have changes of chronic cystitis on cystoscopy. I do not have the results available for review at this time. Patient is currently admitted to the hospital since July 31, 2023. He received chemotherapy in the preceding days. His has noted that shortly after receiving chemotherapy patient becomes increasingly lethargic, may be intermittently confused. He has a bad taste in his mouth therefore he prefers not to eat or drink. He drinks a few sips of Gatorade and not much else. He is intake has been poor orally. He was admitted to the hospital on July 31, 2023 with chief complaints of altered mental status, intermittent confusion. Eventually he was diagnosed with chemotherapy-related nausea and vomiting, dehydration. Part of the evaluation included infectious source evaluation, there was concern for UTI given a positive UA. He was started on treatment with meropenem and Zyvox. Blood cultures have remained negative to date. Urine culture showed MDR Morganella. He received IV fluids for hydration. Patient states that he started to feel much better with hydration within the first 24 hours. He has been afebrile during the course of this admission. He had leukocytosis of 23 when he presented, this has resolved to normal. Of note patient does receive Neupogen with his chemotherapy, last received on July 23, 2023. Patient's suprapubic catheter is usually changed every 3 weeks. He has noticed intermittent crusting of the suprapubic cath insertion site for which they use triple abx ointment. Review of Systems 2 General: Reports: 10 or more systems reviewed and unremarkable except in HPI and below Const: Denies: fever(s), chills or body aches Eyes: Denies: change in vision, blurry vision or photophobia ENMT: Reports: hoarseness; Denies: throat pain, enlarged tonsils, odynophagia or nasal congestion Card: Denies: chest pain, palpitations, irregular heart rhythm, edema, swelling of feet/ankles, lightheadedness, pre-syncope, dyspnea on exertion or orthopnea Resp: Denies: dyspnea, productive cough, non-productive cough, wheezing, stridor, pain on inspiration, change in phlegm color, hemoptysis or chest congestion GI: Denies: abdominal pain, nausea, vomiting, hematemesis, coffee ground emesis, dysphagia, heartburn, diarrhea, constipation, GI cramping, change in stool character, hematochezia or melena : Denies: flank pain, dysuria, urinary frequency, urinary urgency, urinary hesitancy or hematuria Musc: Denies: neck pain, back pain, extremity pain, joint swelling, joint warmth or deformity Neuro: Denies: headache(s), numbness in extremities, weakness in extremities, sensory changes, difficulty walking, frequent falls, dizziness, vertigo, behavioral changes, Slurred speech present or seizure-like activity Psych: Denies: anxiety, depression, suicidal ideation or homicidal ideation Endo: Denies: polyuria, polydipsia, tired all the time, cold intolerance or hot flashes Wilfrid/Lymph: Denies: easy bruising or easy bleeding Medications/Allergies Home Medications Medication Instructions Recorded Confirmed Last Taken Type aspirin 81 mg tablet,delayed 81 mg PO DAILY 02/18/20 06/21/24 06/20/24 History release nitroglycerin 0.4 mg sublingual 0.4 mg sublingual Q5M PRN Chest 07/21/22 07/31/23 05/24/23 Rx tablet (Nitrostat) Pain #30 tabs Walker #1 ea 07/28/22 07/31/23 05/24/23 Rx Walker #1 ea 07/28/22 07/31/23 05/24/23 Rx RSV vaccine #1 ea 11/04/22 07/31/23 05/24/23 Rx mv-mn-folic 200 mcg-vit K 15 1 cap PO DAILY 04/09/23 07/31/23 07/30/23 History mcg-lutein 5 mg-zeaxanthin 1 mg capsule (PreserVision AREDS 2 Plus Multivit) fluticasone fur. 100 mcg-umeclid 1 ea inhalation DAILY #60 ea 04/17/23 07/31/23 07/30/23 Rx 62.5 mcg-vilant 25 mcg inhalat.powder (Trelegy Ellipta) levothyroxine 175 mcg tablet See Rx Instructions .Route 04/17/23 07/31/23 07/31/23 Rx .COMPLEX #90 tabs tamsulosin 0.4 mg capsule 0.4 mg PO QPM 04/17/23 07/31/23 07/30/23 History finasteride 5 mg tablet 5 mg PO QPM 05/20/23 07/31/23 07/30/23 History dexamethasone 4 mg tablet 8 mg (2 x 4 mg) PO BID #18 tabs 05/26/23 07/31/23 Unknown Rx lorazepam 1 mg tablet 0.5 - 1 mg (0.5 - 1 x 1 mg) 05/27/23 07/31/23 07/31/23 Rx sublingual Q6H PRN Severe nausea #30 tabs denosumab 120 mg/1.7 mL (70 mg/mL) 120 mg SUBCUT .Q12 weeks 06/17/23 07/31/23 Unknown History subcutaneous solution acetaminophen 500 mg capsule 1,000 mg PO Q6H PRN Pain 07/02/23 07/31/23 Unknown History prednisone 5 mg tablet 5 mg PO BID #42 tabs 07/02/23 07/31/23 Unknown Rx prochlorperazine maleate 10 mg 10 mg PO Q4H PRN Mild Nausea #30 07/02/23 07/31/23 Unknown Rx tablet (Compazine) tabs morphine 15 mg immediate release 15 mg PO Q6H PRN pain 30 days #120 07/10/23 07/31/23 Unknown Rx tablet tabs trazodone 50 mg tablet 50 mg PO DAILY #30 tabs 07/13/23 07/31/23 07/30/23 Rx famotidine 20 mg tablet 20 mg PO BID #60 tabs 07/29/23 07/31/23 07/30/23 Rx carbamazepine 100 mg 100 mg PO BID 07/31/23 07/31/23 07/30/23 History tablet,extended release,12 hr esomeprazole magnesium 40 mg 40 mg PO BID 07/31/23 07/31/23 07/30/23 History capsule,delayed release glipizide 2.5 mg tablet, extended 2.5 mg PO QAM 07/31/23 07/31/23 07/30/23 History release 24 hr lactobacillus combination no.4 3 3,000 mmu cells PO DAILY 07/31/23 07/31/23 07/30/23 History billion cell capsule (Probiotic) loratadine 10 mg tablet (Claritin) 10 mg PO QPM 07/31/23 07/31/23 07/30/23 History meclizine 25 mg tablet 25 mg PO TID 07/31/23 07/31/23 07/30/23 History metoclopramide HCl 5 mg tablet 5 mg PO TID 07/31/23 07/31/23 07/30/23 History metoprolol succinate 25 mg 25 mg PO QAM 07/31/23 07/31/23 07/30/23 History tablet,extended release 24 hr montelukast 10 mg tablet 10 mg PO QAM 07/31/23 07/31/23 07/30/23 History rosuvastatin 40 mg tablet 40 mg PO BEDTIME 07/31/23 07/31/23 07/30/23 History sitagliptin phosphate 100 mg 100 mg PO QAM 07/31/23 07/31/23 07/30/23 History tablet (Januvia) apixaban 5 mg tablet (Eliquis) 5 mg PO BID #180 tabs 08/03/23 Unknown Rx Allergies Allergy/AdvReac Type Severity Reaction Status Date / Time vancomycin Allergy HIVES,RASH Verified 07/23/23 12:25 Current Medications Generic Name Dose Route Start Last Admin Trade Name Freq PRN Reason Stop Dose Admin Acetaminophen 650 mg 07/31/23 15:33 08/03/23 21:03 Acetaminophen 325 Mg Tablet PO 650 mg Q6H PRN Administration Mild/Mod Pain Or Temp >/= 101 Apixaban 5 mg 07/31/23 18:00 08/03/23 17:27 Apixaban 5 Mg Tablet PO 5 mg BID EVAN Administration Aspirin 81 mg 08/01/23 09:00 08/03/23 08:26 Aspirin 81 Mg Ec Tablet PO 81 mg DAILY EVAN Administration Atorvastatin Calcium 80 mg 07/31/23 21:00 08/03/23 20:16 Atorvastatin 40 Mg Tablet PO 80 mg BEDTIME EVAN Administration Carbamazepine 100 mg 07/31/23 18:00 08/03/23 17:25 Carbamazepine Xr (12 Hr) 100 Mg Tablet PO 100 mg BID EVAN Administration Finasteride 5 mg 07/31/23 18:00 08/03/23 17:25 Finasteride 5 Mg Tablet PO 5 mg QPM EVAN Administration Meropenem 1,000 mg/ Sodium 50 mls @ 100 mls/hr 07/31/23 15:45 08/04/23 07:30 Chloride IV 100 mls/hr Q8H EVAN Administration Protocol Insulin Human Lispro 0 unit 07/31/23 18:00 08/04/23 07:25 Insulin Lispro 100 Unit/1 Ml SUBCUT 2 unit TIDWM EVAN Administration Protocol Levothyroxine Sodium 175 mcg 08/03/23 06:00 08/04/23 05:11 Levothyroxine 175 Mcg Tablet PO 175 mcg MoTuWeThFr EVAN Administration Levothyroxine Sodium 87.5 mcg 08/01/23 06:00 08/01/23 05:15 Levothyroxine 175 Mcg Tablet PO 87.5 mcg Sa EVAN Administration Metoprolol Succinate 25 mg 08/01/23 06:00 08/04/23 05:11 Metoprolol Succinate Er (24 Hr) 25 Mg Tablet PO 25 mg QAM EVAN Administration Ondansetron HCl 4 mg 07/31/23 15:33 08/04/23 07:25 Ondansetron 2 Mg/Ml Sdv 2 Ml IVP 4 mg Q8H PRN Administration vomiting, or N/V if npo Pantoprazole Sodium 40 mg 07/31/23 15:45 08/03/23 14:57 Pantoprazole 40 Mg Sdv IVP 40 mg Q24H EVAN Administration Prednisone 5 mg 07/31/23 18:00 08/03/23 17:25 Prednisone 5 Mg Tablet PO 5 mg BID EVAN Administration Tamsulosin HCl 0.4 mg 07/31/23 18:00 08/03/23 17:25 Tamsulosin 0.4 Mg Capsule PO 0.4 mg QPM EVNA Administration Trazodone HCl 50 mg 07/31/23 21:00 08/03/23 20:16 Trazodone 50 Mg Tablet PO 50 mg BEDTIME EVAN Administration PFSH Acute 2 PFSH: Medical History Cancer related pain Urinary tract infection Right kidney mass Burning sensation of feet Lumbar stenosis with neurogenic claudication Intervertebral disc disorder with radiculopathy of lumbosacral region Metastasis to bone Dyslipidemia History of diverticulitis Type 2 diabetes mellitus, without long-term current use of insulin Benign essential HTN Post-surgical hypothyroidism Insomnia GERD (gastroesophageal reflux disease) COPD (chronic obstructive pulmonary disease) 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 Other CAD (coronary artery disease) Social History Smoking and tobacco/nicotine status: never used tobacco/nicotine Quit status (tobacco/nicotine): has quit using Year quit tobacco: 2022 Former quit date comment: stopped in February of this year Alcohol intake: never Substance/Drug Use: never Lives independently: Yes Household members: spouse Marital status: Current occupational status: retired Vitals/I&O/Wt Last Vital Signs Temp 97.6 F 08/04/23 07:20 Pulse 72 08/04/23 07:20 Resp 17 08/04/23 07:20 BP 155/87 08/04/23 07:20 Pulse Ox 91 08/04/23 07:20 O2 Del Method Room Air 08/04/23 07:20 O2 Flow Rate 3 08/03/23 09:01 08/03/23 08/04/23 08/04/23 22:59 06:59 14:59 Intake Total 1590 / 1880 350 / 2230 Output Total 1100 / 1100 500 / 1600 Balance 490 / 780 -150 / 630 Weight last 48 hrs Weight 120.202 kg Weight 119.794 kg Physical Exam 2 Narrative: General: No acute distress, AO x3 HEENT: PERRLA, pupils bilaterally equal and reactive, pallors present Chest: Normal vesicular breath sounds, no added sounds, equal good air entry bilaterally CVS: S1-S2 regular, no murmurs, no tachycardia, no gallops, no rubs Abdomen: Soft, nontender, no organomegaly, bowel sounds present Neuro: No focal deficits, no facial deformity, AO x3, power 5/5 in all limbs Data 08/04/23 07:48 08/04/23 07:48 Micro: NAME: Charlie Jacobs [facility] #: [id number] LOC: [facility] #: [id number] AGE/SX: 78/M ROOM: 272 R E07/31/[address]: Mikey El MD : 1945 BED: 1 D IS: 08/04/23 FAX #: STATUS: DIS IN TLOC: Spec #: [id number] Manjinder: 07/31/23-1259 Status: COMP Req #: [id number] Recd: 07/31/23-[address]: Daniel Gil DO Src: Urine CC SpDesc: Ordered: UC Procedure Result Verified Site Urine Culture Final 08/02/23-1429 Organism 1 Morganella morganii [place] Count >100,000 CFU/ml DAY 2 M morganii [facility].I.C. RX --------- ------ * Amikacin <=16 S * Amoxicillin/Clavulanate >16/8 R * Ampicillin >16 R * Ampicillin/Sulbactam >16/8 R * Aztreonam >16 R * Cefepime >16 R * Ceftriaxone >32 R * Cefuroxime >16 R * Ciprofloxacin >2 R * Gentamicin <=2 S * Imipenem 2 I * Levofloxacin >4 R * Nitrofurantoin 64 R * Tetracycline >8 R * Trimethoprim/Sulfamethoxazole >2/38 R * Piperacillin/Tazobactam <=16 S NAME: Charlie Jacobs Ronak [facility] #: [id number] LOC: [facility] #: [id number] AGE/SX: 78/M ROOM: 272 R E07/31/[address]: Mikey El MD : 1945 BED: 1 D IS: 08/04/23 FAX #: STATUS: DIS IN TLOC: Spec #: [id number] Manjinder: 07/31/23 Status: COMP Req #: [id number] Recd: 07/31/[address]: Daniel Gil DO Src: Blood SpDesc: Ordered: Bcult Procedure Result Verified Site Blood Culture Final 08/05/23 NO GROWTH AFTER 5 DAYS Blood Culture Preliminary (changed) 08/01/23 NEGATIVE TO DATE Blood Culture Preliminary (changed) 07/31/23 SPECIMEN COLLECTED [facility] [address] [place] [id number] NILDA LUONG, PROTOTYPE SEWER NAME: Gary Jacobswan Simons ACC #: [id number] LOC: [facility] #: [id number] AGE/SX: 78/M ROOM: 272 R E07/31/[address]: Mikey El MD : 1945 BED: 1 D IS: 08/04/23 FAX #: STATUS: DIS IN TLOC: Spec : [id number] Manjinder: 07/31/23-1259 Status: COMP Req : [id number] Recd: 07/31/[address]: Daniel Gil DO Ordered: UA, Reflex Ur Micro Test Low Normal High Flag Reference Site Ua Mac Ur Color Yellow Yellow Appearance Cloudy A CLEAR pH 8 H 5-7 SSA PERFORMED BY Sarai Mendozanery @ 1315. Spec. [place] 1.010 1.005- 1.030 UA Prot 1+ H Negative Ur Glu UA Norm Normal Ur Ketone 1+ H Negative Blood Urine 3+ H Negative Ur Nitrate Positive H Negative Ur Bilirubin Neg Negative Ur Protein SSA Positive Negative Urobilinogen 1 H Negative mg/dL Ur Tito Esterase 1+ H Negative Reflex Ur Micro Ur RBC 5-10 H 0-2 /hpf Ur WBC 55-80 H 0-5 /hpf Ur Squam Epi NONE 0-5 /hpf Ur Bact 3+ H NONE /hpf Ur Mucus TRACE /hpf Ur Amorph Sed 1+ /hpf NOTICE OF CONFIDENTIALITY The recipient of this confidential patient information is prohibited from disclosing the information to any other republican and is required to destroy the information after the stated need has been fulfilled. Anyone receiving this data in error should notify the [facility] immediately by telephone: . Thank you for your cooperation. END OF REPORT A&P Assessment and plan (1) Leukocytosis: (2) Recurrent UTI: (3) Prostate cancer: Plan 78-year-old male with a past medical history of prostate cancer, with metastases, presenting to the hospital on March 01, 2023 after developing chemotherapy related nausea vomiting and dehydration. Poor p.o. intake. Had leukocytosis on arrival, however had also received Neupogen in the preceding week, however that leukocytosis was more likely related to Neupogen administration. Patient does not relate any symptoms to the urinary tract. Denies any fever. Denies suprapubic discomfort. No recent discharge from the suprapubic catheter site insertion. Of note patient's UA showing WBCs, positive nitrate was taken from suprapubic catheter which has been in for several weeks. It is planned to be changed today prior to discharge. Overall given patient's quick clinical improvement within 24 hours with hydration, improvement on current treatment with meropenem and Zyvox, of which Zyvox would not have any activity against Morganella. Additionally noted to have intermediate sensitivity to imipenem, unfortunately we do not have meropenem on her gram-negative sensitivity panel to know the LUCILA's. Additionally we are only able to know LUCILA's to a value of 1 , therefore uncertain as to the LUCILA on the intermediate isolate. I would favor colonization with Morganella given quick recovery and treatment with a potentially intermediate/resistant antibiotic and alternate explanation for leukocytosis. He can complete an empiric 5-day course of meropenem today as he has shown overall clinical recovery. Antibiotics can be discontinued at discharge. Discussed with patient that would not routinely check for UA or urine cultures if patient does not have any other symptoms of infection. He remains at high risk of recurrent UTIs given findings of chronic cystitis, suprapubic catheter in place., requested susceptibilities for meropenem, Avycaz, Zerbaxa, cefaclor from outside lab to anticipate future antibiotic use in case of UTI. Consult Attestations 2 Medical Necessity Statement: stable for discharge from ID standpoint Diagnoses Leukocytosis D72.829 Recurrent UTI N39.0 Prostate cancer C61
[2023-08-04 08:02] LABS: Basophils % 0.5 %; Eosinophils % 0.5 %; Hematocrit 30.9 % (37-53); Lymphocytes # 0.7 10^3/uL (0.8-4.8); Lymphocytes % 15.9 %; Mean Corpuscular HGB Conc 31.1 g/dL (30-55); Mean Corpuscular Hemoglobin 30.8 pg (27-33); Mean Platelet Volume 11.3 fL (7.4-10.4); Monocytes # 0.5 10^3/uL (0.2-0.9); Monocytes % 11.5 %; Neutrophils # 2.82 10^3/uL (1.8-7.7); Neutrophils % 65.1 %; Nucleated Red Blood Cells # 0.1 /100WBC; Nucleated Red Blood Cells % 1.4 %; Platelet Count 89 10^3/cmm (157-399); Red Blood Count 3.12 10^6/uL (3.85-5.65); Red Cell Distribution Width 15.5 % (12.1-15.1); White Blood Count 4.33 10^3/uL (3.29-11.43)
[2023-08-04 08:16] LABS: Blood Urea Nitrogen 7 mg/dL (8-23); Calcium 8.2 mg/dL (8.5-10.5); Carbon Dioxide 29 mmol/L (22-29); Chloride 101 mmol/L (98-107); Creatinine Clr Calc Pharmacy 106.3266; Glucose 154 mg/dL (65-115); Osmolality Calculated 293 mOsm/kg (285-295); Sodium 141 mmol/L (136-145)
[2023-08-04 08:17] LABS: Anion Gap 15.1 (5-19); Potassium 4.1 mmol/L (3.5-5.1)
[2023-08-04] MEDS: predniSONE 5 mg Tablet PO (08:52)
[2023-08-04] MEDS: aspirin 81 mg EC Tablet PO (08:52)
[2023-08-04] MEDS: carBAMazepine XR (12 HR) 100 mg Tablet PO (08:52)
[2023-08-04] MEDS: apixaban 5 mg Tablet PO (08:52)
[2023-08-04 09:03] LABS: Slide Review Slide Review Perform
--- NOTE | 2023-08-04 09:36 | PC.CHAP ---
Pastoral Care Encounter/Spiritual Assessment Type of Contact [] Declined paralegal legal secretary visit [] Patient/Family/Request visit [] Outpatient visit [] Follow-up visit [] Physician referral [] Code/Alert [] Routine visit [] Staff referral [] Actively dying [] Patient sleeping [] Family support [] [] Out of room [] Palliative care [] [] Receiving care in room [] Pre-surgical visit [] Trauma [] Long length of stay [] ICU visit [x] Other:Contact precautions. No visit. Relational/Emotional Strength [] Patient feels connected with others/family/visitors/staff [] Distress [] Loneliness/isolation [] Abandonment Spirituality of Patient [] Person of Sully [] Attends Confucianist of their Sully [] Believes in Prayer [] Reads Bible or Uatsdin materials [] There are Spiritual issues to be addressed Brick Setter Interventions [] Prayer [] Active listening [] Non-anxious presence [] Spiritual/emotional support [] Crisis/trauma care [] Spiritual counseling [] Bereavement support [] Provided bereavement packet [] Provided Bible/devotional materials [] Provided toy/stuffed animal, coloring book to patient or family member [] Provided Communion [] Anointing/[place] [] Salvation [] Completed spiritual assessment [] Other: Impact on Illness or Injury [] Angry [] Fearful [] Anxious [] Often cries [] Exhaustion [] Unable to work [] Unable to attend synagogue [] Unable to walk/stand [] Unable to read [] Unable to drive [] Unable to eat/drink [] Unable to sleep [] Unable to be with family [] Patient intubated [] Other: Summary Time spent with patient
[2023-08-04 11:15] VITALS: BP 152/74; PULSE 70; RESP 17; TEMP 36.9; O2SAT 90
[2023-08-04 11:19] LABS: Glucose Point of Care 157 mg/dL (70-110)
--- NOTE | 2023-08-04 14:41 | P.DS_ITS ---
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 (3) Sepsis: Status: Acute (4) Altered mental status: Status: Acute (5) Chemotherapy-induced nausea and vomiting: Status: Acute (6) Deep vein thrombosis (DVT) of left lower extremity: Status: Acute Qualifiers: Affected thrombotic vein of extremity: popliteal Chronicity: acute Qualified Code(s): I82.432 - Acute embolism and thrombosis of left popliteal vein (7) Type 2 diabetes mellitus, without long-term current use of insulin: Status: Chronic Qualifiers: Diabetes mellitus complication status: without complication Qualified Code(s): E11.9 - Type 2 diabetes mellitus without complications (8) COPD (chronic obstructive pulmonary disease): Status: Chronic Qualifiers: COPD type: emphysema Emphysema type: panlobular Qualified Code(s): J43.1 - Panlobular emphysema (9) Prostate cancer metastatic to bone: Status: Acute (10) Thyroid cancer: Status: Acute (11) Chemotherapy induced neutropenia: Status: Acute (12) Benign essential HTN: Status: Acute (13) CAD (coronary artery disease): Status: Acute Qualifiers: Coronary Disease-Associated Artery/Lesion type: unspecified vessel or lesion type [place] vs. transplanted heart: [place] heart Associated angina: with stable angina Qualified Code(s): I25.118 - Atherosclerotic heart disease of [place] coronary artery with other forms of angina pectoris (14) MENDEZ (dyspnea on exertion): Status: Acute (15) Dyslipidemia: Status: Chronic (16) Suprapubic catheter: Status: Acute Reason for Visit Reason for Visit: ams Hospital Course Hospital Course 78-year-old gentleman with metastatic prostate cancer to bone on active chemotherapy, on prednisone, was admitted due to acute encephalopathy with altered mental status, weakness, sepsis on presentation with urinary studies suggestive of urinary tract infection. He does have history of urinary bladder resection, chronic suprapubic catheter, was treated with meropenem due to concern for history of ESBL infection, possible recurrence. Due to some soft stools stool studies were sent as well, C. difficile was negative, other stool studies still pending. His urinary culture eventually grew Morganella MDRO, ESBL but also with intermediate sensitivity to imipenem. Due to immunocompromise, chronic suprapubic catheter, difficult situation with resistant infection, lack of treatment options, options going forward discussed with patient and his including consideration of treatment with aminoglycosides, but with risk of toxicity, continue treatment with Carbapenem although with increased likelihood of treatment failure, versus possible colonization given he otherwise has recovered, remained afebrile without leukocytosis, symptomatically he is feeling back to baseline. Infectious ease consultation was obtained as well, and additional discussion of his condition and options consensus was reached given the rapid recovery, likely dehydration, lower likelihood of actual infection, but with some possibility recommendation is to complete 5 days of treatment which ends tonight. He is agreeable to this with subsequent discharge home with outpatient follow-up. We discussed exchanging the [place] catheter here but he states will be following up next week with urology and would rather have it exchanged at the office. He understands the risk of treatment failure, risk of recurrent infection, especially in immunocompromised state, understands to seek medical attention in case of any worsening or new concerning symptoms. Physical Exam Narrative: Pleasant, conversant, sitting up in bed. Denies any pain or discomfort. States he is feeling very well, feels ready to discharge home. Const: COMMON NORMALS: patient oriented x3 and alert GENERAL APPEARANCE: cooperative ORIENTATION/CONSCIOUSNESS: Yes awake HENMT: COMMON NORMALS: oropharynx normal Neck/C-Spine: COMMON NORMALS: no JVD Resp: COMMON NORMALS: normal respiratory effort and clear to auscultation bilaterally AUSCULTATION: clear to auscultation bilaterally Cardio: COMMON NORMALS: no JVD, regular rhythm, S1 normal heart sound present, S2 normal heart sound present and No murmurs present (Cardio) RHYTHM: regular rhythm HEART SOUNDS: S1 normal heart sound present and S2 normal heart sound present GI: COMMON NORMALS: Normal to inspection, nondistended, normoactive bowel sounds present, Soft to palpation and non-tender PALPATION: Yes Soft to palpation Extremity: COMMON NORMALS: no joint enlargement and no pedal edema Neuro: COMMON NORMALS: patient oriented x3 and moves all extremities SENSORIUM/ORIENTATION: Yes alert Skin: COMMON NORMALS: no rashes or lesions noted GENERAL SKIN EXAM: no rashes or lesions noted Discharge Data Studies Completed and Pending Completed Studies During Hospitalization Category Date Time Status CT abdomen renal stone [CT kidney stone 85294] Stat Cat Scan 07/31/23 14:[address] cervical spine wo con [CT cervical spin wo con* Cat Scan 07/31/23 11:45 Completed [id number]] Stat CT head wo con* [id number] Stat Cat Scan 07/31/23 11:45 Completed XR chest 1V portable [id number] Stat Exams 07/31/23 11:40 Completed Pending at discharge Category Date Time Status Blood Culture Stat Lab 07/31/23 12:05 Results C.Diff PCR (Lab) Routine Lab 08/01/23 12:13 Ordered Miscellaneous Test Routine Lab 08/04/23 07:41 Ordered OVA and Parasites, Conc and PE Routine Lab 08/01/23 12:13 Received Salmonella / Shigella / Campy Routine Lab 08/01/23 12:13 Received Radiology Impressions Chest X-Ray 07/31/23 11:40 IMPRESSION: 1. No acute cardiopulmonary finding. Cervical Spine CT 07/31/23 11:45 IMPRESSION: 1. No CT evidence of acute cervical spine traumatic injury. 2. Additional findings, as above. ADDENDUM: 07/31/23 1520 ADDENDUM: Please note the sclerotic lesion seen in the T1 vertebra is compatible with the patient's known metastatic disease. Head CT 07/31/23 11:[address]: [address] evidence of acute intracranial pathology. 2. Additional findings, as above. Abdomen/Pelvis CT 07/31/23 14:19 IMPRESSION: 1. Circumferential urinary bladder wall thickening and perivesicular edema, compatible with cystitis. Correlate with urinalysis. 2. Additional findings, as above. COMMENTS: Consistent with the [employer]'s Incidental Findings Committee white paper (J Am Manjinder Radiol 2018): Any incidental renal lesion less than 1 cm or classified as too small to characterize, or any incidental cystic renal lesion characterized as simple-appearing, is likely benign. No follow-up imaging is recommended for these lesions per consensus recommendations based on imaging criteria. Laboratory Results WBC 4.33 10^3/uL (3.29-11.43) 08/04/23 07:48 RBC 3.12 10^6/uL (3.85-5.65) L 08/04/23 07:48 Hgb 9.60 g/dL (11.27-16.99) L 08/04/23 07:48 Hct 30.9 % (37-53) L 08/04/23 07:48 MCV 99.0 fl (82-101) 08/04/23 07:48 MCH 30.8 pg (27-33) 08/04/23 07:48 MCHC 31.1 g/dL (30-55) 08/04/23 07:48 RDW 15.5 % (12.1-15.1) H 08/04/23 07:48 Plt Count 89 10^3/cmm (157-399) L 08/04/23 07:48 MPV 11.3 fL (7.4-10.4) H 08/04/23 07:48 Neut % (Auto) 65.1 % 08/04/23 07:48 Lymph % (Auto) 15.9 % 08/04/23 07:48 [place] % (Auto) 11.5 % 08/04/23 07:48 Eos % (Auto) 0.5 % 08/04/23 07:48 Baso % (Auto) 0.5 % 08/04/23 07:48 Neut # (Auto) 2.82 10^3/uL (1.8-7.7) 08/04/23 07:48 Lymph # (Auto) 0.7 10^3/uL (0.8-4.8) L 08/04/23 07:48 [place] # (Auto) 0.5 10^3/uL (0.2-0.9) 08/04/23 07:48 Eos # (Auto) 0.0 10^3/uL (0.0-0.8) 08/04/23 07:48 Baso # (Auto) 0.0 10^3/uL (0.0-0.1) 08/04/23 07:48 Nucleated RBC % (auto) 1.4 % 08/04/23 07:48 Total Counted 100 (0-100) 08/02/23 05:41 Atypical Lymphs % 0.0 % (0-5) 08/02/23 05:41 Absolute Neutrophils 9.6 10^3/cmm (1.4-6.5) H 08/02/23 05:41 Segmented Neutrophils 69 % 08/02/23 05:41 Abs Segm Neuts (Man) 8.0 10/cmm (1.6-7.1) H 08/02/23 05:41 Band Neutrophils 13.0 % 08/02/23 05:41 Abs Band Neuts (Man) 1.5 10^3/cmm (0.0-1.2) H 08/02/23 05:41 Absolute Lymphocytes 1.3 10^3/cmm (1.2-3.4) 08/02/23 05:41 Lymphocytes (Manual) 11 % 08/02/23 05:41 Monocytes (Manual) 1.0 % 08/02/23 05:41 Absolute Monocytes 0.1 10^3/cmm (0.1-0.6) 08/02/23 05:41 Eosinophils (Manual) 0 % 08/02/23 05:41 Absolute Eosinophils 0.0 10^3/cmm (0.0-0.7) 08/02/23 05:41 Basophils (Manual) 0.0 % 08/02/23 05:41 Absolute Basophils 0.0 10^3/cmm (0.0-0.2) 08/02/23 05:41 Metamyelocytes 4.0 % 08/02/23 05:41 Myelocytes 2.0 % 08/02/23 05:41 Nucleated RBCs 1.0 /100WBC (0-1) 08/02/23 05:41 Nucleated RBCs # 0.1 /100WBC 08/04/23 07:48 Toxic Granulation 1+ H 08/02/23 05:41 Platelet Estimate Decreased (Normal) 08/02/23 05:41 Poikilocytosis Trace 08/02/23 05:41 Anisocytosis 1+ H 08/02/23 05:41 Macrocytosis Trace 08/02/23 05:41 PT 15.30 SECONDS (12.1-14.9) H 07/31/23 12:10 PT 15.40 SECONDS (12.1-14.9) H 07/31/23 12:10 INR 1.17 (0.8-1.2) 07/31/23 12:10 INR 1.18 (0.8-1.2) 07/31/23 12:10 APTT 31.7 SECONDS (23.9-36.7) 07/31/23 12:10 Sodium 141 mmol/L (136-145) 08/04/23 07:48 Potassium 4.1 mmol/L (3.5-5.1) 08/04/23 07:48 Chloride 101 mmol/L (98-107) 08/04/23 07:48 Carbon Dioxide 29 mmol/L (22-29) 08/04/23 07:48 Anion Gap 15.1 (5-19) 08/04/23 07:48 BUN 7 mg/dL (8-23) L 08/04/23 07:48 Creatinine 0.7 mg/dL (0.7-1.2) 08/04/23 07:48 GFR Calculation Not Reportable 08/04/23 07:48 Glucose 154 mg/dL (65-115) H 08/04/23 07:48 POC Glucose 157 mg/dL (70-110) H 08/04/23 11:13 Estimat Average Glucose 214 07/31/23 12:10 Hemoglobin A1c 9.1 % (4.0-6.0) H 07/31/23 12:10 Calculated Osmolality 293 mOsm/kg (285-295) 08/04/23 07:48 Lactic Acid 2.2 mmol/L (0.5-2.2) 07/31/23 12:10 Lactic Acid (Sepsis) 2.1 mmol/L (0.5-2.2) 07/31/23 15:10 Calcium 8.2 mg/dL (8.5-10.5) L 08/04/23 07:48 Total Bilirubin 0.3 mg/dL (0.15-1.2) 07/31/23 12:10 AST 19 U/L (0-40) 07/31/23 12:10 ALT 15 U/L (0-41) 07/31/23 12:10 Alkaline Phosphatase 110 U/L (40-130) 07/31/23 12:10 Troponin T Baseline 27 ng/L (0-15) H 07/31/23 12:10 Troponin T 120 Minute 28.86 ng/L (0-15) H 07/31/23 13:55 Delta Troponin T 1.86 ABS# (0-10) 07/31/23 13:55 C-Reactive Protein 59.9 mg/L (0.0-4.9) H 07/31/23 12:10 NT-Pro-B Natriuret Pep 436 pg/mL (0-450) 07/31/23 12:10 Total Protein 6.3 g/dL (6.6-8.7) L 07/31/23 12:10 Albumin 3.6 g/dL (3.5-5.2) 07/31/23 12:10 Globulin 2.7 g/dL (1.3-4.6) 07/31/23 12:10 Triglycerides 144 mg/dL (0-150) 07/31/23 12:10 Cholesterol 112 mg/dL (0-200) 07/31/23 12:10 LDL Cholesterol, Calc 53 mg/dL (50-129) 07/31/23 12:10 HDL Cholesterol 30 mg/dL (60-100) L 07/31/23 12:10 LDL/HDL Ratio 1.77 RATIO (0.00-3.22) 07/31/23 12:10 Cholesterol/HDL Ratio 3.73 mg/dL (1.0-5.00) 07/31/23 12:10 Procalcitonin 0.93 ng/mL (0-0.5) H 07/31/23 12:10 TSH 1.46 uIU/mL (0.27-4.20) 07/31/23 12:10 Free T4 1.00 ng/dL (0.82-1.77) 07/31/23 12:10 Free T3 1.9 PG/ML (2.0-4.4) L 07/31/23 12:10 Urine Color Yellow (Yellow) 07/31/23 12:59 Urine Appearance Cloudy (CLEAR) A 07/31/23 12:59 Urine pH 8 (5-7) H 07/31/23 12:59 Ur Specific [place] 1.010 (1.005-1.030) 07/31/23 12:59 Urine Protein 1+ (Negative) H 07/31/23 12:59 Urine Glucose (UA) Norm (Normal) 07/31/23 12:59 Urine Ketones 1+ (Negative) H 07/31/23 12:59 Urine Blood 3+ (Negative) H 07/31/23 12:59 Urine Nitrate Positive (Negative) H 07/31/23 12:59 Urine Bilirubin Neg (Negative) 07/31/23 12:59 Prot Sulfosalicylic Acd Positive (Negative) 07/31/23 12:59 Urine Urobilinogen 1 mg/dL (Negative) H 07/31/23 12:59 Ur Leukocyte Esterase 1+ (Negative) H 07/31/23 12:59 Urine RBC 5-10 /hpf (0-2) H 07/31/23 12:59 Urine WBC 55-80 /hpf (0-5) H 07/31/23 12:59 Ur Squamous Epith Cells None /hpf (0-5) 07/31/23 12:59 Amorphous Sediment 1+ /hpf 07/31/23 12:59 Urine Bacteria 3+ /hpf (NONE) H 07/31/23 12:59 Urine Mucus Trace /hpf 07/31/23 12:59 Urine Opiates Screen Positive ng/mL (Negative) H 07/31/23 12:59 Ur Barbiturates Screen Negative ng/mL (Negative) 07/31/23 12:59 Ur Phencyclidine Scrn Negative ng/mL (Negative) 07/31/23 12:59 Ur Amphetamines Screen Negative ng/mL (Negative) 07/31/23 12:59 U Benzodiazepines Scrn Positive ng/mL (Negative) H 07/31/23 12:59 Urine Cocaine Screen Negative ng/mL (Negative) 07/31/23 12:59 U Marijuana (THC) Screen Negative ng/mL (Negative) 07/31/23 12:59 C. difficile (PCR) Negative (Negative) 08/01/23 09:43 Vitals Last Vital Signs Temp 98.4 F 08/04/23 11:15 Pulse 70 08/04/23 11:15 Resp 17 08/04/23 11:15 BP 152/74 08/04/23 11:15 Pulse Ox 90 08/04/23 11:15 O2 Del Method Room Air 08/04/23 11:15 O2 Flow Rate 3 08/03/23 09:01 Discharge Plan Discharge Patient Disposition: Home Condition: Stable Prescriptions: Continued aspirin 81 mg tablet,delayed release (DR/EC) 81 mg PO DAILY tamsulosin 0.4 mg capsule 0.4 mg PO QPM Trelegy Ellipta 100-62.5-25 mcg blister with device 1 ea INHALATION DAILY Qty: 60 5RF finasteride 5 mg tablet 5 mg PO QPM lorazepam 1 mg tablet 0.5 - 1 mg sublingual Q6H PRN (Reason: Severe nausea) Qty: 30 3RF denosumab 120 mg/1.7 mL (70 mg/mL) solution 120 mg SUBCUT .Q12 weeks trazodone 50 mg tablet 50 mg PO DAILY Qty: 30 2RF (DME) Noe See Rx Instructions .ROUTE .MEDSUPPLY Qty: 1 0RF Rx Instructions: As directed (DME) Walker See Rx Instructions .ROUTE .MEDSUPPLY Qty: 1 0RF Rx Instructions: As directed PreserVision AREDS 2 Plus MV 200 mcg-15 mcg- 5 mg-1 mg capsule 1 cap PO DAILY acetaminophen 500 mg capsule 1,000 mg PO Q6H PRN (Reason: Pain) nitroglycerin [Nitrostat] 0.4 mg tablet, sublingual 0.4 mg SUBLINGUAL Q5M PRN (Reason: Chest Pain) Qty: 30 1RF (DME) RSV vaccine See Rx Instructions .Route .MEDSUPPLY Qty: 1 0RF Rx Instructions: As directed levothyroxine 175 mcg tablet See Rx Instructions .ROUTE .COMPLEX Qty: 90 0RF Dose Instruction: TAKE 1 TABLET BY MOUTH EVERY DAY thursday through thursday. take 1/2 tablet BY MOUTH ON thursday, SKIP thursday Rx Instructions: TAKE 1 TABLET BY MOUTH EVERY DAY thursday through thursday. take 1/2 tablet BY MOUTH ON thursday, SKIP thursday dexamethasone 4 mg tablet 8 mg PO BID Qty: 18 2RF Rx Instructions: Day before and day after each treatment morphine 15 mg tablet 15 mg PO Q6H PRN (Reason: pain) 30 Days Qty: 120 0RF famotidine 20 mg tablet 20 mg PO BID Qty: 60 2RF Eliquis 5 mg tablet 5 mg PO BID Qty: 180 1RF prednisone 5 mg Tablet 5 mg PO BID Qty: 42 5RF Rx Instructions: Take on days 1-21 of each cycle prochlorperazine maleate [Compazine] 10 mg tablet 10 mg PO Q4H PRN (Reason: Mild Nausea) Qty: 30 3RF glipizide 2.5 mg tablet extended release 24hr 2.5 mg PO QAM Claritin 10 mg Tablet 10 mg PO QPM Probiotic 3 billion cell Capsule 3,000 mmu cells PO DAILY Rx Instructions: administer with a meal carbamazepine 100 mg tablet extended release 12 hr 100 mg PO BID metoclopramide HCl 5 mg tablet 5 mg PO TID meclizine 25 mg tablet 25 mg PO TID esomeprazole magnesium 40 mg capsule,delayed release(DR/EC) 40 mg PO BID montelukast 10 mg tablet 10 mg PO QAM metoprolol succinate 25 mg tablet extended release 24 hr 25 mg PO QAM rosuvastatin 40 mg tablet 40 mg PO BEDTIME Januvia 100 mg tablet 100 mg PO QAM Discharge Orders: Discharge Order (Routine); Ordered 08/04/23 Ordered By: Mikey El Referrals: Jose Thomason MD [Primary Care Provider] - 08/26/23 9:30 am Discharge Diet: Cardiac Patient Instructions: Urinary Tract Infection in Men (GEN), Altered Mental Status (ED), Opioid Safety Activity Restrictions/Additional Instructions: Follow-up with your primary doctor for reassessment after episode of altered mental status, dehydration, suprapubic catheter, possible urinary tract infection versus colonization. Discuss with your primary doctor regarding mild troponin elevation 27-28, without rising trend, consider follow-up of cardiovascular risk factors, consideration of risk stratification. Continue optimization of cardiac risk factors and chronic conditions including diabetes. Resume follow-up with your cancer team. Discharge Attestations Time Spent in Discharge Care*: greater than 30 min Quality Metrics Clinical Quality Measures [ No reported AMI, CVA or VTE this stay] Coding Level of Care Code 35312 Total time (in minutes) for Discharge: 60 Diagnoses Complicated UTI (urinary tract infection) N39.0 BPH with obstruction/lower urinary tract symptoms N40.1; N13.8 Sepsis A41.9 Altered mental status R41.82 Chemotherapy-induced nausea and vomiting R11.2; T45.1X5A Acute deep vein thrombosis (DVT) of popliteal vein of left lower extremity I82.432 Affected thrombotic vein of extremity: popliteal Chronicity: acute Type 2 diabetes mellitus without complication, without long-term current use of insulin E11.9 Diabetes mellitus complication status: without complication Panlobular emphysema J43.1 COPD type: emphysema Emphysema type: panlobular Prostate cancer metastatic to bone C61; C79.51 Thyroid cancer C73 Chemotherapy induced neutropenia D70.1; T45.1X5A Benign essential HTN I10 Coronary artery disease of [place] heart with stable angina pectoris, unspecified vessel or lesion type I25.118 Coronary Disease-Associated Artery/Lesion type: unspecified vessel or lesion type [place] vs. transplanted heart: [place] heart Associated angina: with stable angina MENDEZ (dyspnea on exertion) R06.00 Dyslipidemia E78.5 Suprapubic catheter Z93.59
[2023-08-04 14:55] VITALS: BP 152/74; PULSE 70; RESP 17; TEMP 36.9; O2SAT 90
== END 2023-08-04 14:58 | disposition home or self-care (01) | DRG 690 ==
LOC: ER 14:53 → MEDSURG 15:06
PROVIDERS: Student in an Organized Health Care Education/Training Program; Admitting Provider Family Medicine; Emergency Provider Emergency Medicine; PCP Family Medicine; Visit Provider Internal Medicine
DX: N39.0 Urinary tract infection, site not specified (principal); C79.51 Secondary malignant neoplasm of bone; G93.40 Encephalopathy, unspecified; D84.821 Immunodeficiency due to drugs; Z16.12 Extended spectrum beta lactamase (ESBL) resistance; N40.1 Benign prostatic hyperplasia with lower urinary tract symptoms; C61 Malignant neoplasm of prostate; E11.9 Type 2 diabetes mellitus without complications; Z79.84 Long term (current) use of oral hypoglycemic drugs; D70.1 Agranulocytosis secondary to cancer chemotherapy; I10 Essential (primary) hypertension; Z87.891 Personal history of nicotine dependence; W19.XXXA Unspecified fall, initial encounter; J43.1 Panlobular emphysema; Z85.850 Personal history of malignant neoplasm of thyroid; E89.0 Postprocedural hypothyroidism; B96.89 Other specified bacterial agents as the cause of diseases classified elsewhere; Z96.0 Presence of urogenital implants; Z95.828 Presence of other vascular implants and grafts; E78.5 Hyperlipidemia, unspecified; I25.118 Atherosclerotic heart disease of native coronary artery with other forms of angina pectoris; Z79.82 Long term (current) use of aspirin
CPT/HCPCS: 36415; 36416; 36592; 70450; 71045; 72125; 74176; 80048; 80053; 80061; 80306; 81001; 82274; 82962; 83036; 83605; 83630; 83880; 84145; 84439; 84443; 84481; 84484; 85007; 85025; 85610; 85730; 86140; 87040; 87045; 87077; 87086; 87177; 87186; 87209; 87427; 87449; 87493; 93005; 94664; 96365; 96367; 96372; 96375; 97116; 97161; 97165; 97530; 99285; C9113; J0696; J1815; J2020; J2185; J2405; J7030; J7512

== ENCOUNTER 2023-08-04 13:30 | Oncology outpatient (recurring) (ONCR) | payer MEDICARE, MEDICAID, SELFPAY ==
[2023-07-16 15:08] LABS: Alanine Aminotransferase 21 U/L (0-41); Albumin Level 3.4 g/dL (3.5-5.2); Alkaline Phosphatase 72 U/L (40-130); Anion Gap 16.7 (5-19); Aspartate Amino Transferase 14 U/L (0-40); Blood Urea Nitrogen 17 mg/dL (8-23); Calcium 8.4 mg/dL (8.5-10.5); Carbon Dioxide 25 mmol/L (22-29); Chloride 102 mmol/L (98-107); Globulin 3.1 g/dL (1.3-4.6); Glucose 195 mg/dL (65-115); Osmolality Calculated 295 mOsm/kg (285-295); Potassium 4.7 mmol/L (3.5-5.1); Sodium 139 mmol/L (136-145); Total Bilirubin 0.2 mg/dL (0.15-1.2); Total Protein 6.5 g/dL (6.6-8.7)
[2023-07-23 11:16] LABS: Basophils # 0.1 10^3/uL (0.0-0.1); Basophils % 0.6 %; Eosinophils % 0.1 %; Lymphocytes # 0.7 10^3/uL (0.8-4.8); Lymphocytes % 8.1 %; Mean Corpuscular HGB Conc 31.7 g/dL (30-55); Mean Corpuscular Hemoglobin 31.8 pg (27-33); Mean Corpuscular Volume 100.3 fl (82-101); Mean Platelet Volume 10.1 fL (7.4-10.4); Monocytes % 11.9 %; Neutrophils # 6.56 10^3/uL (1.8-7.7); Neutrophils % 78.9 %; Nucleated Red Blood Cells % 0 %; Platelet Count 162 10^3/cmm (157-399); Red Blood Count 3.59 10^6/uL (3.85-5.65); Red Cell Distribution Width 15.1 % (12.1-15.1); White Blood Count 8.31 10^3/uL (3.29-11.43)
[2023-07-23 11:49] LABS: Alanine Aminotransferase 16 U/L (0-41); Albumin Level 3.5 g/dL (3.5-5.2); Alkaline Phosphatase 81 U/L (40-130); Anion Gap 14.3 (5-19); Aspartate Amino Transferase 13 U/L (0-40); Blood Urea Nitrogen 15 mg/dL (8-23); Calcium 8.1 mg/dL (8.5-10.5); Carbon Dioxide 29 mmol/L (22-29); Chloride 100 mmol/L (98-107); Globulin 2.9 g/dL (1.3-4.6); Glucose 143 mg/dL (65-115); Osmolality Calculated 291 mOsm/kg (285-295); Potassium 4.3 mmol/L (3.5-5.1); Sodium 139 mmol/L (136-145); Total Bilirubin 0.2 mg/dL (0.15-1.2); Total Protein 6.4 g/dL (6.6-8.7)
[2023-07-23] MEDS: sodium chloride 0.9% 250 ML 45 ML IV (13:55)
[2023-07-23] MEDS: diphenhydrAMINE 50 mg/mL SDV 1mL 25 MG IVP (13:58)
[2023-07-23] MEDS: palonosetron 0.25 mg/5 mL SDV IVP (13:59)
[2023-07-23] MEDS: famotidine 20 mg/2 mL INJ IVP (13:59)
[2023-07-23] MEDS: dexamethasone 4 mg/mL INJ 5 mL 12 MG IVP (13:59)
[2023-07-23] MEDS: DOCEtaxeL 140 MG in sodium chloride 0.9%(non-DEHP) 250 ML 264 MG IV (14:34)
[2023-07-23] MEDS: pegfilgrastim 6 mg/0.6 mL Kit (onpro) SUBCUT (15:47)
[2023-07-23 15:50] VITALS: BP 153/77; PULSE 75; RESP 18; TEMP 36.6; O2SAT 92
[2023-07-29 15:20] LABS: Hematocrit 36.4 % (37-53); Mean Corpuscular HGB Conc 31.6 g/dL (30-55); Mean Corpuscular Hemoglobin 30.7 pg (27-33); Mean Corpuscular Volume 97.3 fl (82-101); Mean Platelet Volume 11.6 fL (7.4-10.4); Platelet Count 137 10^3/cmm (157-399); Red Blood Count 3.74 10^6/uL (3.85-5.65); Red Cell Distribution Width 15.1 % (12.1-15.1)
[2023-07-29 15:26] LABS: Alanine Aminotransferase 14 U/L (0-41); Albumin Level 3.6 g/dL (3.5-5.2); Alkaline Phosphatase 92 U/L (40-130); Blood Urea Nitrogen 9 mg/dL (8-23); Calcium 8.3 mg/dL (8.5-10.5); Carbon Dioxide 25 mmol/L (22-29); Chloride 103 mmol/L (98-107); Globulin 3.3 g/dL (1.3-4.6); Glucose 164 mg/dL (65-115); Osmolality Calculated 286 mOsm/kg (285-295); Sodium 137 mmol/L (136-145); Total Bilirubin 0.3 mg/dL (0.15-1.2); Total Protein 6.9 g/dL (6.6-8.7)
[2023-07-29 15:32] LABS: Anion Gap 14.1 (5-19); Aspartate Amino Transferase 19 U/L (0-40); Potassium 5.1 mmol/L (3.5-5.1)
[2023-07-29 15:44] LABS: Absolute Neutrophil 4.4 10^3/cmm (1.4-6.5); Absolute Segmented Neutrophil 3.6 10/cmm (1.6-7.1); Band Neutrophils Absolute 0.7 10^3/cmm (0.0-1.2); Eosinophils 0 %; Lymphocytes 19 %; Lymphocytes Absolute 1.5 10^3/cmm (1.2-3.4); Monocytes Absolute 0.2 10^3/cmm (0.1-0.6); Platelet Estimate Decreased (Normal); Segmented Neutrophils 45 %; Slide Review Slide Review Perform; Total Cells Counted 100 (0-100)
[2023-07-29 15:45] LABS: Macrocytosis 1+; Polychromasia 1+
== END 2023-08-09 23:59 | disposition home or self-care (01) ==
PROVIDERS: Internal Medicine Hematology & Oncology; Nurse Practitioner Family; PCP Family Medicine; Visit Provider Internal Medicine Medical Oncology
DX: Z53.9 Procedure and treatment not carried out, unspecified reason (principal)
CPT/HCPCS: 36592; 80053; 84153; 85007; 85025; 96372; 96375; 96413; 99213; 99214; J1100; J1200; J2469; J2506; J3490; J7050; J9171

== ENCOUNTER 2023-09-07 08:45 | Oncology outpatient (recurring) (ONCR) | payer MEDICARE, MEDICAID, SELFPAY ==
[2023-08-10 14:15] LABS: Basophils % 1.2 %; Hematocrit 33.4 % (37-53); Lymphocytes # 0.8 10^3/uL (0.8-4.8); Lymphocytes % 22.9 %; Mean Corpuscular HGB Conc 31.4 g/dL (30-55); Mean Corpuscular Hemoglobin 31.3 pg (27-33); Mean Corpuscular Volume 99.7 fl (82-101); Mean Platelet Volume 11.1 fL (7.4-10.4); Monocytes # 0.6 10^3/uL (0.2-0.9); Monocytes % 18.1 %; Neutrophils # 1.91 10^3/uL (1.8-7.7); Neutrophils % 57.5 %; Nucleated Red Blood Cells % 0 %; Platelet Count 175 10^3/cmm (157-399); Red Blood Count 3.35 10^6/uL (3.85-5.65); Red Cell Distribution Width 15.9 % (12.1-15.1); White Blood Count 3.32 10^3/uL (3.29-11.43)
[2023-08-10 14:57] LABS: Alanine Aminotransferase 18 U/L (0-41); Albumin Level 3.6 g/dL (3.5-5.2); Alkaline Phosphatase 83 U/L (40-130); Blood Urea Nitrogen 12 mg/dL (8-23); Calcium 8.3 mg/dL (8.5-10.5); Carbon Dioxide 27 mmol/L (22-29); Chloride 102 mmol/L (98-107); Globulin 2.9 g/dL (1.3-4.6); Glucose 232 mg/dL (65-115); Osmolality Calculated 291 mOsm/kg (285-295); Sodium 137 mmol/L (136-145); Total Bilirubin 0.2 mg/dL (0.15-1.2); Total Protein 6.5 g/dL (6.6-8.7)
[2023-08-10 15:01] LABS: Anion Gap 12.9 (5-19); Aspartate Amino Transferase 15 U/L (0-40); Potassium 4.9 mmol/L (3.5-5.1)
[2023-08-17 11:04] LABS: Basophils % 0.2 %; Hematocrit 33.7 % (37-53); Lymphocytes # 0.6 10^3/uL (0.8-4.8); Lymphocytes % 14.1 %; Mean Corpuscular HGB Conc 31.8 g/dL (30-55); Mean Corpuscular Hemoglobin 31.7 pg (27-33); Mean Corpuscular Volume 99.7 fl (82-101); Mean Platelet Volume 10.3 fL (7.4-10.4); Monocytes # 0.6 10^3/uL (0.2-0.9); Monocytes % 13.9 %; Neutrophils # 3.03 10^3/uL (1.8-7.7); Neutrophils % 71.3 %; Nucleated Red Blood Cells % 0 %; Platelet Count 188 10^3/cmm (157-399); Red Blood Count 3.38 10^6/uL (3.85-5.65); Red Cell Distribution Width 15.9 % (12.1-15.1); White Blood Count 4.25 10^3/uL (3.29-11.43)
[2023-08-17 11:22] LABS: Alanine Aminotransferase 14 U/L (0-41); Albumin Level 3.5 g/dL (3.5-5.2); Alkaline Phosphatase 78 U/L (40-130); Aspartate Amino Transferase 13 U/L (0-40); Blood Urea Nitrogen 18 mg/dL (8-23); Calcium 8.2 mg/dL (8.5-10.5); Carbon Dioxide 26 mmol/L (22-29); Chloride 100 mmol/L (98-107); Glucose 197 mg/dL (65-115); Osmolality Calculated 289 mOsm/kg (285-295); Sodium 136 mmol/L (136-145); Total Bilirubin 0.3 mg/dL (0.15-1.2); Total Protein 6.5 g/dL (6.6-8.7)
[2023-08-17 11:25] LABS: Anion Gap 14.5 (5-19); Potassium 4.5 mmol/L (3.5-5.1)
[2023-08-17] MEDS: sodium chloride 0.9% 250 ML 75 ML IV (14:29)
[2023-08-17] MEDS: diphenhydrAMINE 50 mg/mL SDV 1mL 25 MG IVP (14:41)
[2023-08-17] MEDS: palonosetron 0.25 mg/5 mL SDV IVP (14:51)
[2023-08-17] MEDS: famotidine 20 mg/2 mL INJ IVP (14:56)
[2023-08-17] MEDS: dexamethasone 4 mg/mL INJ 5 mL 12 MG IVP (15:01)
[2023-08-17] MEDS: DOCEtaxeL 140 MG in sodium chloride 0.9%(non-DEHP) 250 ML 264 MG IV (15:25)
[2023-08-17] MEDS: pegfilgrastim 6 mg/0.6 mL Kit (onpro) SUBCUT (16:34)
[2023-08-17 16:39] VITALS: BP 126/70; PULSE 58; RESP 16; TEMP 35.9; O2SAT 96
[2023-08-24 10:12] LABS: Mean Corpuscular HGB Conc 31.8 g/dL (30-55); Mean Corpuscular Hemoglobin 31.9 pg (27-33); Mean Corpuscular Volume 100.3 fl (82-101); Mean Platelet Volume 11.9 fL (7.4-10.4); Platelet Count 106 10^3/cmm (157-399); Red Blood Count 3.29 10^6/uL (3.85-5.65); Red Cell Distribution Width 15.4 % (12.1-15.1)
[2023-08-24 10:36] LABS: Alanine Aminotransferase 12 U/L (0-41); Albumin Level 3.3 g/dL (3.5-5.2); Alkaline Phosphatase 89 U/L (40-130); Blood Urea Nitrogen 12 mg/dL (8-23); Calcium 8.4 mg/dL (8.5-10.5); Carbon Dioxide 23 mmol/L (22-29); Chloride 99 mmol/L (98-107); Creatinine Clr Calc Pharmacy 94.0352; Globulin 2.9 g/dL (1.3-4.6); Glucose 142 mg/dL (65-115); Osmolality Calculated 286 mOsm/kg (285-295); Sodium 137 mmol/L (136-145); Total Bilirubin 0.4 mg/dL (0.15-1.2); Total Protein 6.2 g/dL (6.6-8.7)
[2023-08-24 10:41] LABS: Anion Gap 19.4 (5-19); Potassium 4.4 mmol/L (3.5-5.1)
[2023-08-24 10:42] LABS: Aspartate Amino Transferase 18 U/L (0-40)
[2023-08-24 10:46] LABS: Slide Review Slide Review Perform
[2023-08-24 10:54] LABS: Absolute Eosinophils 0.1 10^3/cmm (0.0-0.7); Absolute Segmented Neutrophil 3.7 10/cmm (1.6-7.1); Band Neutrophils Absolute 3.6 10^3/cmm (0.0-1.2); Eosinophils 1 %; Lymphocytes 15 %; Macrocytosis 1+; Monocytes Absolute 0.8 10^3/cmm (0.1-0.6); Segmented Neutrophils 32 %; Tear Drop Cells Trace; Total Cells Counted 100 (0-100)
[2023-08-24 10:55] LABS: Absolute Neutrophil 7.3 10^3/cmm (1.4-6.5); Lymphocytes Absolute 1.7 10^3/cmm (1.2-3.4); Platelet Estimate Decreased (Normal)
[2023-08-24] MEDS: sodium chloride 0.9% 1,000 ML 75 ML IV (11:39)
[2023-08-24] MEDS: ondansetron 2 mg/ML SDV 2 mL 8 MG IVP (11:43)
[2023-08-24 13:06] VITALS: BP 119/72; PULSE 87; RESP 16; TEMP 36.6; O2SAT 99
[2023-08-25 10:30] VITALS: BP 122/70; PULSE 86; RESP 17; TEMP 36.6; O2SAT 98
[2023-08-25] MEDS: sodium chloride 0.9% 1,000 ML 999 ML IV (10:30)
[2023-08-25 11:45] VITALS: BP 119/66; PULSE 78; RESP 17; TEMP 35.7; O2SAT 94
[2023-08-26] MEDS: sodium chloride 0.9% 1,000 ML 999 ML IV (13:40)
[2023-08-26 13:41] VITALS: BP 120/72; PULSE 71; RESP 16; O2SAT 92
[2023-08-26 15:17] VITALS: BP 148/80; PULSE 84; RESP 18; TEMP 36.6; O2SAT 98
[2023-08-31 14:17] LABS: Basophils % 0.5 %; Lymphocytes # 0.9 10^3/uL (0.8-4.8); Lymphocytes % 11.2 %; Mean Corpuscular HGB Conc 32.1 g/dL (30-55); Mean Corpuscular Hemoglobin 32.5 pg (27-33); Mean Corpuscular Volume 101.5 fl (82-101); Mean Platelet Volume 11.4 fL (7.4-10.4); Monocytes # 0.8 10^3/uL (0.2-0.9); Monocytes % 9.5 %; Neutrophils # 6.14 10^3/uL (1.8-7.7); Neutrophils % 77.8 %; Nucleated Red Blood Cells % 0.3 %; Platelet Count 114 10^3/cmm (157-399); Red Blood Count 3.35 10^6/uL (3.85-5.65); Red Cell Distribution Width 15.8 % (12.1-15.1); White Blood Count 7.89 10^3/uL (3.29-11.43)
[2023-08-31 14:38] LABS: Alanine Aminotransferase 15 U/L (0-41); Albumin Level 3.6 g/dL (3.5-5.2); Alkaline Phosphatase 91 U/L (40-130); Anion Gap 13.1 (5-19); Aspartate Amino Transferase 13 U/L (0-40); Blood Urea Nitrogen 12 mg/dL (8-23); Calcium 8.7 mg/dL (8.5-10.5); Carbon Dioxide 28 mmol/L (22-29); Chloride 100 mmol/L (98-107); Globulin 2.9 g/dL (1.3-4.6); Glucose 152 mg/dL (65-115); Osmolality Calculated 287 mOsm/kg (285-295); Potassium 4.1 mmol/L (3.5-5.1); Sodium 137 mmol/L (136-145); Total Bilirubin 0.2 mg/dL (0.15-1.2); Total Protein 6.5 g/dL (6.6-8.7)
[2023-09-07 08:51] LABS: Basophils % 0.1 %; Hematocrit 35.8 % (37-53); Lymphocytes # 0.7 10^3/uL (0.8-4.8); Lymphocytes % 10.7 %; Mean Corpuscular HGB Conc 31.6 g/dL (30-55); Mean Corpuscular Hemoglobin 31.6 pg (27-33); Mean Platelet Volume 9.8 fL (7.4-10.4); Monocytes # 0.7 10^3/uL (0.2-0.9); Monocytes % 9.8 %; Neutrophils # 5.44 10^3/uL (1.8-7.7); Neutrophils % 78.8 %; Nucleated Red Blood Cells % 0 %; Platelet Count 232 10^3/cmm (157-399); Red Blood Count 3.58 10^6/uL (3.85-5.65); Red Cell Distribution Width 15.4 % (12.1-15.1); White Blood Count 6.91 10^3/uL (3.29-11.43)
[2023-09-07 09:19] LABS: Alanine Aminotransferase 29 U/L (0-41); Albumin Level 3.8 g/dL (3.5-5.2); Alkaline Phosphatase 89 U/L (40-130); Anion Gap 17.5 (5-19); Aspartate Amino Transferase 15 U/L (0-40); Blood Urea Nitrogen 19 mg/dL (8-23); Calcium 8.8 mg/dL (8.5-10.5); Carbon Dioxide 24 mmol/L (22-29); Chloride 103 mmol/L (98-107); Creatinine Clr Calc Pharmacy 105.3501; Globulin 3.1 g/dL (1.3-4.6); Glucose 226 mg/dL (65-115); Osmolality Calculated 299 mOsm/kg (285-295); Potassium 4.5 mmol/L (3.5-5.1); Sodium 140 mmol/L (136-145); Total Bilirubin 0.2 mg/dL (0.15-1.2); Total Protein 6.9 g/dL (6.6-8.7)
== END 2023-09-09 23:59 | disposition home or self-care (01) ==
PROVIDERS: Nurse Practitioner Family; PCP Family Medicine; Visit Provider Internal Medicine Medical Oncology
DX: C61 Malignant neoplasm of prostate (principal); Z53.9 Procedure and treatment not carried out, unspecified reason
CPT/HCPCS: 36415; 36592; 80053; 84153; 85007; 85025; 96360; 96365; 96372; 96375; 96377; 96413; 99214; J1100; J1200; J2405; J2469; J2506; J3490; J7030; J7050; J9171

== ENCOUNTER 2023-09-19 16:16 | Emergency (ER) | payer MEDICARE, MEDICAID, SELFPAY ==
[2023-09-19 16:37] VITALS: BP 135/71; PULSE 89; RESP 17; TEMP 36.6; O2SAT 95; BMI 32.0
[2023-09-19 17:24] LABS: Basophils % 0.5 %; Eosinophils # 0.1 10^3/uL (0.0-0.8); Eosinophils % 1.8 %; Hematocrit 35.7 % (37-53); Lymphocytes # 0.9 10^3/uL (0.8-4.8); Lymphocytes % 15.9 %; Mean Corpuscular HGB Conc 32.2 g/dL (30-55); Mean Corpuscular Hemoglobin 32.6 pg (27-33); Mean Corpuscular Volume 101.1 fl (82-101); Mean Platelet Volume 9.7 fL (7.4-10.4); Monocytes # 0.6 10^3/uL (0.2-0.9); Monocytes % 10.4 %; Neutrophils # 4.01 10^3/uL (1.8-7.7); Nucleated Red Blood Cells % 0 %; Platelet Count 160 10^3/cmm (157-399); Red Blood Count 3.53 10^6/uL (3.85-5.65); White Blood Count 5.65 10^3/uL (3.29-11.43)
[2023-09-19 17:29] LABS: Bilirubin Urine Negative (Negative); Blood Urine 2+ (Negative); Glucose Urine UA Negative (Normal); Ketones Urine Negative (Negative); Leukocyte Esterase Urine 3+ (Negative); Nitrate Urine Positive (Negative); Protein Urine Trace (Negative); Specific Gravity, Urine 1.009 (1.005-1.030); Urine Appearance Cloudy (CLEAR); Urine Color Yellow (Yellow)
[2023-09-19 17:34] LABS: Bacteria Urine 4+ /hpf; Squamous Epithelial Cell Urine 0-5 /hpf (0-5); WBC Urine 51-100 /hpf (0-5)
[2023-09-19 17:37] LABS: Anion Gap 12.7 (5-19); Blood Urea Nitrogen 13 mg/dL (8-23); Calcium 8.7 mg/dL (8.5-10.5); Carbon Dioxide 29 mmol/L (22-29); Chloride 100 mmol/L (98-107); Glucose 183 mg/dL (65-115); Osmolality Calculated 291 mOsm/kg (285-295); Potassium 3.7 mmol/L (3.5-5.1); Sodium 138 mmol/L (136-145)
[2023-09-19 17:38] LABS: Add Urine Culture? Yes
--- NOTE | 2023-09-19 18:20 | ED_ITS ---
HPI - Male Genitourinary 2 General: Chief complaint: Urogenital-Male Stated complaint: can't urinate Time Seen by Provider: 09/19/23 16:48 History of Present Illness: 78-year-old man with a history of bladde r issues and urinary retention who has a suprapubic catheter who says over the last couple of days he has been having pain in his penis and has been passing some white chalky type material. Feels like he is having some suprapubic pain. And that he might be retaining. However his urine looks clear and yellow and seems to be draining through his suprapubic catheter. He says he always has a chronic urinary tract infection and is on antibiotics at all times. No fevers. No altered mental status. No nausea or vomiting. Related Data Home Medications Medication Instructions Recorded Confirmed aspirin 81 mg tablet,delayed 81 mg PO DAILY 03/29/19 09/07/23 release mv-mn-folic 200 mcg-vit K 15 1 cap PO DAILY 04/09/23 09/07/23 mcg-lutein 5 mg-zeaxanthin 1 mg capsule (PreserVision AREDS 2 Plus Multivit) tamsulosin 0.4 mg capsule 0.4 mg PO QPM 04/17/23 09/07/23 finasteride 5 mg tablet 5 mg PO QPM 05/20/23 09/07/23 denosumab 120 mg/1.7 mL (70 mg/mL) 120 mg SUBCUT .Q12 weeks 06/17/23 09/07/23 subcutaneous solution acetaminophen 500 mg capsule 1,000 mg PO Q6H PRN Pain 07/02/23 09/07/23 glipizide 2.5 mg tablet, extended 2.5 mg PO QAM 07/31/23 09/07/23 release 24 hr lactobacillus combination no.4 3 3,000 mmu cells PO DAILY 07/31/23 09/07/23 billion cell capsule (Probiotic) loratadine 10 mg tablet (Claritin) 10 mg PO QPM 07/31/23 09/07/23 metoprolol succinate 25 mg 25 mg PO QAM 07/31/23 09/07/23 tablet,extended release 24 hr rosuvastatin 40 mg tablet 40 mg PO BEDTIME 07/31/23 09/07/23 sitagliptin phosphate 100 mg 100 mg PO QAM 07/31/23 09/07/23 tablet (Januvia) Previous Rx's Medication Instructions Recorded nitroglycerin 0.4 mg sublingual 0.4 mg sublingual Q5M PRN Chest 07/21/22 tablet (Nitrostat) Pain #30 tabs Walker #1 ea 07/28/22 Walker #1 ea 07/28/22 RSV vaccine #1 ea 11/04/22 fluticasone fur. 100 mcg-umeclid 1 ea inhalation DAILY #60 ea 04/17/23 62.5 mcg-vilant 25 mcg inhalat.powder (Trelegy Ellipta) levothyroxine 175 mcg tablet See Rx Instructions .Route 04/17/23 .COMPLEX #90 tabs dexamethasone 4 mg tablet 8 mg (2 x 4 mg) PO BID #18 tabs 05/26/23 lorazepam 1 mg tablet 0.5 - 1 mg (0.5 - 1 x 1 mg) 05/27/23 sublingual Q6H PRN Severe nausea #30 tabs prochlorperazine maleate 10 mg 10 mg PO Q4H PRN Mild Nausea #30 07/02/23 tablet (Compazine) tabs morphine 15 mg immediate release 15 mg PO Q6H PRN pain 30 days #120 07/10/23 tablet tabs famotidine 20 mg tablet 20 mg PO BID #60 tabs 07/29/23 apixaban 5 mg tablet (Eliquis) 5 mg PO BID #180 tabs 08/03/23 prednisone 5 mg tablet See Rx Instructions .Route 08/10/23 .COMPLEX #180 tabs trazodone 100 mg tablet 100 mg PO DAILY #30 tabs 08/11/23 carbamazepine 100 mg See Rx Instructions .Route 08/14/23 tablet,extended release,12 hr .COMPLEX #60 tabs esomeprazole magnesium 40 mg 40 mg PO BID #60 caps 08/17/23 capsule,delayed release metoclopramide HCl 5 mg tablet See Rx Instructions .Route 08/21/23 .COMPLEX #90 tabs fluconazole 100 mg tablet 100 mg PO DAILY #14 tabs 08/24/23 ondansetron HCl 8 mg tablet 8 mg PO Q8H PRN nausea and 08/24/23 vomiting #30 tabs montelukast 10 mg tablet See Rx Instructions .Route 08/25/23 .COMPLEX #90 tabs cephalexin 500 mg capsule 500 mg PO QID 10 days #40 caps 08/31/23 sucralfate 1 gram tablet (Carafate) 1 g PO Q6H #60 tabs 09/07/23 cefdinir 300 mg capsule 300 mg PO BID 10 days #20 caps 09/19/23 Allergies Allergy/AdvReac Type Severity Reaction Status Date / Time vancomycin Allergy HIVES,RASH Verified 09/19/23 16:42 Review of Systems 2 Narrative: Constitutional symptoms: Negative except as documented in HPI. Skin symptoms: Negative except as documented in HPI. Eye symptoms: Negative except as documented in HPI. ENMT symptoms: Negative except as documented in HPI. Respiratory symptoms: Negative except as documented in HPI. Cardiovascular symptoms: Negative except as documented in HPI. Gastrointestinal symptoms: Negative except as documented in HPI. Genitourinary symptoms: Negative except as documented in HPI. Musculoskeletal symptoms: Negative except as documented in HPI. Neurologic symptoms: Negative except as documented in HPI. Psychiatric symptoms: Negative except as documented in HPI. Endocrine symptoms: Negative except as documented in HPI. 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 Other CAD (coronary artery disease) Social History Smoking and tobacco/nicotine status: never used tobacco/nicotine Quit status (tobacco/nicotine): has quit using Year quit tobacco: 2022 Former quit date comment: stopped in February of this year Alcohol intake: never Substance/Drug Use: never Lives independently: Yes Household members: spouse Marital status: Current occupational status: retired Physical Exam 2 Narrative: EXAM NARRATIVE: General: Alert, no acute distress. Skin: Warm, dry. Head: Normocephalic, atraumatic. Neck: Supple, trachea midline. Eye: Extraocular movements are intact. Ears, nose, mouth and throat: mucosa moist. Cardiovascular: Regular, Normal peripheral perfusion. Respiratory: Lungs are clear to auscultation, respirations are non-labored, breath sounds are equal, Symmetrical chest wall expansion. Gastrointestinal: Soft, Nontender, Non distended : Patient has a suprapubic catheter in place. Appears to be draining appropriately Musculoskeletal: Normal ROM, no deformity. Neurological: Alert and oriented, No focal neurological deficit observed. Psychiatric: Cooperative, appropriate mood & affect. Course 2 Vital Signs: Vital signs: Vital Signs Temperature 97.9 F 09/19/23 16:37 Pulse Rate 68 09/19/23 19:00 Respiratory Rate 17 09/19/23 16:37 Blood Pressure 139/95 09/19/23 19:00 Pulse Oximetry 95 09/19/23 19:00 Oxygen Delivery Me thod Room Air 09/19/23 16:37 MDM - Male Medical Decision Making Medical decision making: Differential diagnosis including but not limited to and based on the above HPI, review of systems and physical exam: Patient seems to be draining. That he must be having some sort of calcifications from his bladder that are passing. I think he will need to see his primary for this. Checking for worsening urinary tract infection. Renal failure. Bladder scan was ordered to make sure he is emptying. Orders placed to evaluate differential diagnosis based on the above differential, HPI and physical exam Lab Review: Laboratory results were reviewed and interpreted by myself the emergency room physician. No leukocytosis. No renal failure. Urine does not appear infected. Bladder scan only showed 100 cc of urine. No retention. Consultation: I spoke with Dr. Jitendra Menjivar who is the patient's urologist. He recommends a CT scan to evaluate for bladder stones as these can be a problem in patients with chronic indwelling catheters. I reviewed the patient's medical record. Reexamination: Patient remained stable. No increased work of breathing. No altered mental status. No focal motor deficits. Assessment and plan: Urinary tract infection Bladder stones Chronic urinary retention Chronic suprapubic catheter ?IV meropenem in the emergency room home on Omnicef. - Discharged home - Discussed findings and plan with patient. Answered any questions. - All laboratory values were reviewed and interpreted personally by myself, the ER physician - All imaging was reviewed and interpreted personally by myself, the ER physician. - Evaluation and treatment of this problem were appropriate in the emergency setting Lab Data 09/19/23 17:11 09/19/23 17:11 Laboratory Results WBC 5.65 10^3/uL (3.29-11.43) 09/19/23 17:11 RBC 3.53 10^6/uL (3.85-5.65) L 09/19/23 17:11 Hgb 11.50 g/dL (11.27-16.99) 09/19/23 17:11 Hct 35.7 % (37-53) L 09/19/23 17:11 MCV 101.1 fl (82-101) H 09/19/23 17:11 MCH 32.6 pg (27-33) 09/19/23 17:11 MCHC 32.2 g/dL (30-55) 09/19/23 17:11 RDW 15.0 % (12.1-15.1) 09/19/23 17:11 Plt Count 160 10^3/cmm (157-399) 09/19/23 17:11 MPV 9.7 fL (7.4-10.4) 09/19/23 17:11 Neut % (Auto) 71.0 % 09/19/23 17:11 Lymph % (Auto) 15.9 % 09/19/23 17:11 [place] % (Auto) 10.4 % 09/19/23 17:11 Eos % (Auto) 1.8 % 09/19/23 17:11 Baso % (Auto) 0.5 % 09/19/23 17:11 Neut # (Auto) 4.01 10^3/uL (1.8-7.7) 09/19/23 17:11 Lymph # (Auto) 0.9 10^3/uL (0.8-4.8) 09/19/23 17:11 [place] # (Auto) 0.6 10^3/uL (0.2-0.9) 09/19/23 17:11 Eos # (Auto) 0.1 10^3/uL (0.0-0.8) 09/19/23 17:11 Baso # (Auto) 0.0 10^3/uL (0.0-0.1) 09/19/23 17:11 Nucleated RBC % (auto) 0 % 09/19/23 17:11 Nucleated RBCs # 0.0 /100WBC 09/19/23 17:11 Sodium 138 mmol/L (136-145) 09/19/23 17:11 Potassium 3.7 mmol/L (3.5-5.1) 09/19/23 17:11 Chloride 100 mmol/L (98-107) 09/19/23 17:11 Carbon Dioxide 29 mmol/L (22-29) 09/19/23 17:11 Anion Gap 12.7 (5-19) 09/19/23 17:11 BUN 13 mg/dL (8-23) 09/19/23 17:11 Creatinine 0.8 mg/dL (0.7-1.2) 09/19/23 17:11 GFR Calculation Not Reportable 09/19/23 17:11 Glucose 183 mg/dL (65-115) H 09/19/23 17:11 Calculated Osmolality 291 mOsm/kg (285-295) 09/19/23 17:11 Calcium 8.7 mg/dL (8.5-10.5) 09/19/23 17:11 Urine Color Yellow (Yellow) 09/19/23 17:11 Urine Appearance Cloudy (CLEAR) A 09/19/23 17:11 Urine pH 7.0 (5-7) 09/19/23 17:11 Ur Specific [place] 1.009 (1.005-1.030) 09/19/23 17:11 Urine Protein Trace (Negative) A 09/19/23 17:11 Urine Glucose (UA) Negative (Normal) 09/19/23 17:11 Urine Ketones Negative (Negative) 09/19/23 17:11 Urine Blood 2+ (Negative) A 09/19/23 17:11 Urine Nitrate Positive (Negative) A 09/19/23 17:11 Urine Bilirubin Negative (Negative) 09/19/23 17:11 Urine Urobilinogen 1.0 mg/dL (Negative) 09/19/23 17:11 Ur Leukocyte Esterase 3+ (Negative) A 09/19/23 17:11 Urine RBC 3-5 /hpf (0-2) 09/19/23 17:11 Urine WBC 51-100 /hpf (0-5) H 09/19/23 17:11 Ur Squamous Epith Cells 0-5 /hpf (0-5) 09/19/23 17:11 Amorphous Sediment Not Reportable 09/19/23 17:11 Urine Bacteria 4+ /hpf (NONE) H 09/19/23 17:11 Hyaline Casts 0.40 /lpf 09/19/23 17:11 XR interpretation done by ED provider, pending radiology final review Discharge Plan Discharge Patient Disposition: Home Clinical Impression: Recurrent UTI Condition: Stable Prescriptions: New cefdinir 300 mg capsule 300 mg PO BID 10 Days Qty: 20 0RF No Action aspirin 81 mg tablet,delayed release (DR/EC) 81 mg PO DAILY tamsulosin 0.4 mg capsule 0.4 mg PO QPM Trelegy Ellipta 100-62.5-25 mcg blister with device 1 ea INHALATION DAILY Qty: 60 5RF finasteride 5 mg tablet 5 mg PO QPM lorazepam 1 mg tablet 0.5 - 1 mg sublingual Q6H PRN (Reason: Severe nausea) Qty: 30 3RF denosumab 120 mg/1.7 mL (70 mg/mL) solution 120 mg SUBCUT .Q12 weeks (DME) Noe See Rx Instructions .ROUTE .MEDSUPPLY Qty: 1 0RF Rx Instructions: As directed (DME) Noe See Rx Instructions .ROUTE .MEDSUPPLY Qty: 1 0RF Rx Instructions: As directed PreserVision AREDS 2 Plus MV 200 mcg-15 mcg- 5 mg-1 mg capsule 1 cap PO DAILY acetaminophen 500 mg capsule 1,000 mg PO Q6H PRN (Reason: Pain) sucralfate [Carafate] 1 gram tablet 1 g PO Q6H Qty: 60 5RF fluconazole 100 mg tablet 100 mg PO DAILY Qty: 14 0RF ondansetron HCl 8 mg tablet 8 mg PO Q8H PRN (Reason: nausea and vomiting) Qty: 30 1RF nitroglycerin [Nitrostat] 0.4 mg tablet, sublingual 0.4 mg SUBLINGUAL Q5M PRN (Reason: Chest Pain) Qty: 30 1RF (DME) RSV vaccine See Rx Instructions .Route .MEDSUPPLY Qty: 1 0RF Rx Instructions: As directed levothyroxine 175 mcg tablet See Rx Instructions .ROUTE .COMPLEX Qty: 90 0RF Dose Instruction: TAKE 1 TABLET BY MOUTH EVERY DAY thursday through thursday. take 1/2 tablet BY MOUTH ON thursday, SKIP thursday Rx Instructions: TAKE 1 TABLET BY MOUTH EVERY DAY thursday through thursday. take 1/2 tablet BY MOUTH ON thursday, SKIP thursday dexamethasone 4 mg tablet 8 mg PO BID Qty: 18 2RF Rx Instructions: Day before and day after each treatment morphine 15 mg tablet 15 mg PO Q6H PRN (Reason: pain) 30 Days Qty: 120 0RF famotidine 20 mg tablet 20 mg PO BID Qty: 60 2RF Eliquis 5 mg tablet 5 mg PO BID Qty: 180 1RF prednisone 5 mg tablet See Rx Instructions .ROUTE .COMPLEX Qty: 180 3RF Dose Instruction: TAKE 1 TABLET BY MOUTH TWICE DAILY Rx Instructions: TAKE 1 TABLET BY MOUTH TWICE DAILY trazodone 100 mg tablet 100 mg PO DAILY Qty: 30 2RF carbamazepine 100 mg tablet extended release 12 hr See Rx Instructions .ROUTE .COMPLEX Qty: 60 3RF Dose Instruction: TAKE 1 TABLET BY MOUTH TWICE DAILY Rx Instructions: TAKE 1 TABLET BY MOUTH TWICE DAILY esomeprazole magnesium 40 mg capsule,delayed release(DR/EC) 40 mg PO BID Qty: 60 0RF metoclopramide HCl 5 mg tablet See Rx Instructions .ROUTE .COMPLEX Qty: 90 0RF Dose Instruction: TAKE 1 TABLET BY MOUTH THREE TIMES DAILY Rx Instructions: TAKE 1 TABLET BY MOUTH THREE TIMES DAILY montelukast 10 mg tablet See Rx Instructions .ROUTE .COMPLEX Qty: 90 2RF Dose Instruction: TAKE 1 TABLET BY MOUTH EVERY DAY Rx Instructions: TAKE 1 TABLET BY MOUTH EVERY DAY cephalexin 500 mg capsule 500 mg PO QID 10 Days Qty: 40 0RF prochlorperazine maleate [Compazine] 10 mg tablet 10 mg PO Q4H PRN (Reason: Mild Nausea) Qty: 30 3RF glipizide 2.5 mg tablet extended release 24hr 2.5 mg PO QAM Claritin 10 mg Tablet 10 mg PO QPM Probiotic 3 billion cell Capsule 3,000 mmu cells PO DAILY Rx Instructions: administer with a meal metoprolol succinate 25 mg tablet extended release 24 hr 25 mg PO QAM rosuvastatin 40 mg tablet 40 mg PO BEDTIME Januvia 100 mg tablet 100 mg PO QAM Discharge Orders: Discharge ED (Routine); Ordered 09/19/23 Ordered By: Dee Jacobs Referrals: Jong Menjivar MD [Referring] - 4-7 days (Call for an appointment) Jose Thomason MD [Primary Care Provider] - Patient Instructions: Urinary Tract Infection in Older Adults (ED) Activity Restrictions/Additional Instructions: Thank you for choosing [facility] for your healthcare needs today. Please realize this is an emergency room and that we are providing you with a medical screening exam and this may not be complete and all inclusive of all the testing and or work up that you may need to determine your ailment or severity of your illness. You have been screened and evaluated and felt safe for discharge. Health conditions do change or evolve sometimes and as such it is important that you follow up with your Primary Doctor to be re checked, 3-5 days is a general good time frame for follow up. 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
[2023-09-19] MEDS: cefepime 2,000 MG in sodium chloride 0.9% (plus) 50 ML 100 MG IV (18:32)
[2023-09-19] MEDS: sodium chloride 0.9% 500 ML 999 ML IV (18:32)
--- NOTE | 2023-09-19 18:53 | CTR_ITS ---
PROCEDURE INFORMATION: Exam: CT Abdomen And Pelvis Without Contrast Exam date and time: 09/19/2023 7:02 PM Age: 78 years old Clinical indication: Hernia repair. Prostate. Suprapubic cath. Orchiectomy. Dysuria with hematuria. History of metastatic prostate cancer. Concern for bladder stones TECHNIQUE: Imaging protocol: Computed tomography of the abdomen and pelvis without contrast. Radiation optimization: All CT scans at this facility use at least one of these dose optimization techniques: automated exposure control; mA and/or kV adjustment per patient size (includes targeted exams where dose is matched to clinical indication); or iterative reconstruction. COMPARISON: CT kidney stone [id number] 07/31/2023 2:48 PM RADIATION DOSE METRICS: Total DLP (mGy-cm): 1233.83 FINDINGS: Tubes, catheters and devices: Percutaneous bladder catheter. There are regions of bladder wall thickening and stranding in the pericystic fat. There are bladder calculi the larger of which is at the junction of the caudal aspect of the bladder and prostatic urethra measuring 16 mm x 18 mm in the craniocaudad/transverse dimension. Lungs: There is scarring and/or atelectasis at the right lung base.There are pulmonary parenchymal calcifications consistent with remote granulomatous organism exposure. Liver: Normal. No mass. Gallbladder and biliary ducts: Normal. No calcified stones. No ductal dilation. Pancreas: There are calcifications in the pancreas consistent with chronic pancreatitis change. Spleen: Normal. No splenomegaly. Adrenal glands: Normal. No mass. Kidneys and ureters: There are cysts with benign features in the left kidney the larger of which measures 5.4 cm. Follow-up is not necessary. Stomach and bowel: There is diverticulosis of the colon without evidence of diverticulitis. Appendix: A normal appendix is identified. Intraperitoneal space: Unremarkable. No free air. No significant fluid collection. Vasculature: Multi-vessel atherosclerotic disease. Lymph nodes: Unremarkable. No enlarged lymph nodes. Urinary bladder: See Tubes, catheters and devices finding. Reproductive: Unremarkable as visualized. Bones/joints: There are multiple sclerotic lesions in the visualized osseous structures consistent with osseous metastatic disease. 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 There are degenerative changes across the hip joint. Soft tissues: Unremarkable. CT/CT kidney stone [id number] IMPRESSION: 1. There are bladder calculi the larger of which is at the junction of the caudal aspect of the bladder and prostatic urethra measuring 16 mm x 18 mm. 2. There are regions of bladder wall thickening and stranding in the pericystic fat.This is nonspecific and may represent bladder outlet obstruction, inflammation or infection. Neoplastic process is included in the differential. 3. Osseous metastatic disease. 4. Chronic pancreatitis change.
[2023-09-19 18:59] VITALS: BP 139/95; PULSE 68; O2SAT 95
[2023-09-19 19:00] VITALS: BP 139/95; PULSE 68; O2SAT 95
--- NOTE | 2023-09-19 19:29 | PC.NURSE ---
took over pt care at 1850 from ADONIS Henry. pt in stable condition at this time, with no requests.
[2023-09-19 20:15] VITALS: BP 103/83; PULSE 84; O2SAT 92
== END 2023-09-19 20:15 | disposition home or self-care (01) ==
PROVIDERS: Emergency Provider Emergency Medicine; PCP Family Medicine
DX: N39.0 Urinary tract infection, site not specified (principal); Z87.440 Personal history of urinary (tract) infections; Z79.01 Long term (current) use of anticoagulants; Z79.82 Long term (current) use of aspirin; Z79.84 Long term (current) use of oral hypoglycemic drugs; Z87.891 Personal history of nicotine dependence; E78.5 Hyperlipidemia, unspecified; E11.9 Type 2 diabetes mellitus without complications; I10 Essential (primary) hypertension; J44.9 Chronic obstructive pulmonary disease, unspecified; Z85.46 Personal history of malignant neoplasm of prostate; Z85.850 Personal history of malignant neoplasm of thyroid
CPT/HCPCS: 51798; 74176; 80048; 81001; 85025; 87086; 96374; 99285; J0692; J7040

== ENCOUNTER 2023-09-28 09:54 | Outpatient (CLI) | payer MEDICARE, MEDICAID, SELFPAY ==
[2023-09-28 10:46] LABS: Free T4 Free Thyroxine 0.86 ng/dL (0.82-1.77); Thyroid Stimulating Hormone 10.86 uIU/mL (0.27-4.20)
== END 2023-09-28 09:55 | disposition home or self-care (01) ==
PROVIDERS: PCP Family Medicine; Visit Provider Internal Medicine
DX: E89.0 Postprocedural hypothyroidism (principal); C73 Malignant neoplasm of thyroid gland
CPT/HCPCS: 36415; 84432; 84439; 84443; 86800

== ENCOUNTER → 2023-10-05 09:39 | Outpatient (BNVA) | payer MEDICARE, MEDICAID, SELFPAY | PROVIDERS: PCP Family Medicine; Visit Provider Internal Medicine | DX: E89.0 Postprocedural hypothyroidism (principal); C73 Malignant neoplasm of thyroid gland; C61 Malignant neoplasm of prostate; Z79.890 Hormone replacement therapy | CPT/HCPCS: 99214 ==

== ENCOUNTER 2023-10-08 09:32 | Oncology outpatient (recurring) (ONCR) | payer MEDICARE, MEDICAID, SELFPAY ==
[2023-10-08 09:57] LABS: Basophils % 0.7 %; Eosinophils # 0.2 10^3/uL (0.0-0.8); Hematocrit 37.7 % (37-53); Lymphocytes # 1.2 10^3/uL (0.8-4.8); Lymphocytes % 27.8 %; Mean Corpuscular HGB Conc 32.1 g/dL (30-55); Mean Corpuscular Hemoglobin 32.3 pg (27-33); Mean Corpuscular Volume 100.5 fl (82-101); Monocytes # 0.5 10^3/uL (0.2-0.9); Neutrophils # 2.41 10^3/uL (1.8-7.7); Neutrophils % 56.3 %; Nucleated Red Blood Cells % 0 %; Platelet Count 192 10^3/cmm (157-399); Red Blood Count 3.75 10^6/uL (3.85-5.65); Red Cell Distribution Width 13.6 % (12.1-15.1); White Blood Count 4.28 10^3/uL (3.29-11.43)
[2023-10-08 10:31] LABS: Alanine Aminotransferase < 5 U/L (0-41); Albumin Level 3.7 g/dL (3.5-5.2); Alkaline Phosphatase 96 U/L (40-130); Aspartate Amino Transferase 10 U/L (0-40); Blood Urea Nitrogen 12 mg/dL (8-23); Calcium 8.8 mg/dL (8.5-10.5); Carbon Dioxide 25 mmol/L (22-29); Chloride 104 mmol/L (98-107); Globulin 2.9 g/dL (1.3-4.6); Glucose 218 mg/dL (65-115); Osmolality Calculated 304 mOsm/kg (285-295); Sodium 144 mmol/L (136-145); Thyroid Stimulating Hormone 3.19 uIU/mL (0.27-4.20); Total Bilirubin 0.3 mg/dL (0.15-1.2); Total Protein 6.6 g/dL (6.6-8.7)
== END 2023-10-10 23:59 | disposition home or self-care (01) ==
PROVIDERS: PCP Family Medicine; Visit Provider Internal Medicine Medical Oncology
DX: C61 Malignant neoplasm of prostate; C79.51 Secondary malignant neoplasm of bone; Z79.899 Other long term (current) drug therapy; Z79.52 Long term (current) use of systemic steroids
CPT/HCPCS: 36415; 80053; 84153; 84443; 85025; 99213

== ENCOUNTER → 2023-10-21 13:50 | Outpatient (BNVA) | payer MEDICARE, MEDICAID, SELFPAY | PROVIDERS: PCP Family Medicine; Visit Provider Podiatrist Foot & Ankle Surgery | DX: E13.620 Other specified diabetes mellitus with diabetic dermatitis (principal); L60.3 Nail dystrophy; L84 Corns and callosities; G62.89 Other specified polyneuropathies | CPT/HCPCS: 11056; 11721 ==

== ENCOUNTER 2023-10-26 10:08 | Oncology outpatient (recurring) (ONCR) | payer MEDICARE, MEDICAID, SELFPAY ==
[2023-10-26] MEDS: denosumab 120 mg SDV SUBCUT (11:09)
== END 2023-11-09 23:59 | disposition home or self-care (01) ==
PROVIDERS: PCP Family Medicine; Visit Provider Internal Medicine Medical Oncology
DX: C61 Malignant neoplasm of prostate (principal); C79.51 Secondary malignant neoplasm of bone; C77.2 Secondary and unspecified malignant neoplasm of intra-abdominal lymph nodes; Z79.52 Long term (current) use of systemic steroids; Z79.818 Long term (current) use of other agents affecting estrogen receptors and estrogen levels
CPT/HCPCS: 96372; 99214; J0897

== ENCOUNTER 2023-10-31 09:41 | Emergency (ER) | payer MEDICARE, MEDICAID, SELFPAY ==
[2023-10-31 09:52] VITALS: BP 121/66; PULSE 84; RESP 18; TEMP 36.3; O2SAT 95; BMI 32.0
--- NOTE | 2023-10-31 10:33 | CTR_ITS ---
PROCEDURE INFORMATION: Exam: CT Head Without Contrast Exam date and time: 10/31/2023 11:03 AM Age: 78 years old Clinical indication: Dizziness TECHNIQUE: Imaging protocol: Computed tomography of the head without contrast. Radiation optimization: All CT scans at this facility use at least one of these dose optimization techniques: automated exposure control; mA and/or kV adjustment per patient size (includes targeted exams where dose is matched to clinical indication); or iterative reconstruction. COMPARISON: 1. CT head wo con* [id number] 07/31/2023 12:24 PM 2. MR head wo/w con [id number] 09/28/2018 10:15 AM RADIATION DOSE METRICS: Total DLP (mGy-cm): 1130.65 FINDINGS: Brain: Diffuse cerebral atrophy, consistent with patient's age. No hemorrhage. Preserved koch-white matter differentiation. Stable subcentimeter posterior right cerebral white matter hypodensities likely representing chronic lacunar infarcts and/or prominent perivascular spaces. No mass effect. Cerebral ventricles: Ventricles are in proportion to the degree of atrophy. Paranasal sinuses: Visualized sinuses are unremarkable. No fluid levels. Mastoid air cells: Visualized mastoid air cells are well aerated. Bones: Unremarkable. No acute fracture. Soft tissues: Unremarkable. Vasculature: Bilateral ICA calcifications. CT/CT head wo con* [id number] IMPRESSION: No acute intracranial findings.
--- NOTE | 2023-10-31 10:33 | XRR_ITS ---
PROCEDURE INFORMATION: Exam: XR Chest Exam date and time: 10/31/2023 10:52 AM Age: 78 years old Clinical indication: Other: Dizziness TECHNIQUE: Imaging protocol: Radiologic exam of the chest. Views: 1 view. COMPARISON: CR XR chest 1V portable [id number] 07/31/2023 12:14 PM FINDINGS: Lungs: Bilateral calcified granulomata. No consolidation. Mild left basilar linear atelectasis versus scarring. Pleural spaces: Unremarkable. No pleural effusion. No pneumothorax. Heart/Mediastinum: Unremarkable. No cardiomegaly. Vasculature: Aortic arch atherosclerotic calcification. Bones/joints: Degenerative changes along the spine. XR/XR chest 1V portable [id number] IMPRESSION: No acute findings.
--- NOTE | 2023-10-31 10:51 | ED_ITS ---
HPI - Dizziness 2 General: Chief Complaint: Dizziness Stated Complaint: lightheaded, dizzy, blood sugar high Time Seen by Provider: 10/31/23 10:06 History of Present Illness: HPI Narrative: 78-year-old male presents to the ER with his present chief complaint of hyperglycemia with dizziness patient apparently has a indwelling suprapubic catheter that frequently gets infected he recently had a catheter check imaged the patient denies any recent medication changes or otherwise other infection concerns patient reports no prior history of stroke she has had multiple recent falls he reports a history of metastatic prostate cancer which he is already undergone radiation and chemotherapy which is now under comfort care measures for patient presents to ER with present for further assessment and management sugars prior to arrival was in the high 200s milligram per deciliter range. Associated symptoms: Reports headache(s) and malaise; Denies chest pain, chills, nausea, palpitations or vomiting Related Data Home Medications Medication Instructions Recorded Confirmed aspirin 81 mg tablet,delayed 81 mg PO DAILY 03/29/19 10/26/23 release mv-mn-folic 200 mcg-vit K 15 1 cap PO DAILY 04/09/23 10/26/23 mcg-lutein 5 mg-zeaxanthin 1 mg capsule (PreserVision AREDS 2 Plus Multivit) finasteride 5 mg tablet 5 mg PO QPM 05/20/23 10/26/23 acetaminophen 500 mg capsule 1,000 mg PO Q6H PRN Pain 07/02/23 10/26/23 glipizide 2.5 mg tablet, extended 2.5 mg PO QAM 07/31/23 10/26/23 release 24 hr lactobacillus combination no.4 3 3,000 mmu cells PO DAILY 07/31/23 10/26/23 billion cell capsule (Probiotic) loratadine 10 mg tablet (Claritin) 10 mg PO QPM 07/31/23 10/26/23 metoprolol succinate 25 mg 25 mg PO QAM 07/31/23 10/26/23 tablet,extended release 24 hr sitagliptin phosphate 100 mg 100 mg PO QAM 07/31/23 10/26/23 tablet (Januvia) levothyroxine 175 mcg tablet See Rx Instructions .Route .COMPLEX 10/26/23 10/26/23 Previous Rx's Medication Instructions Recorded nitroglycerin 0.4 mg sublingual 0.4 mg sublingual Q5M PRN Chest 07/21/22 tablet (Nitrostat) Pain #30 tabs Walker #1 ea 07/28/22 RSV vaccine #1 ea 11/04/22 lorazepam 1 mg tablet 0.5 - 1 mg (0.5 - 1 x 1 mg) 05/27/23 sublingual Q6H PRN Severe nausea #30 tabs apixaban 5 mg tablet (Eliquis) 5 mg PO BID #180 tabs 08/03/23 carbamazepine 100 mg See Rx Instructions .Route 08/14/23 tablet,extended release,12 hr .COMPLEX #60 tabs fluconazole 100 mg tablet 100 mg PO DAILY #14 tabs 08/24/23 ondansetron HCl 8 mg tablet 8 mg PO Q8H PRN nausea and 08/24/23 vomiting #30 tabs montelukast 10 mg tablet See Rx Instructions .Route 08/25/23 .COMPLEX #90 tabs sucralfate 1 gram tablet (Carafate) 1 g PO Q6H #60 tabs 09/07/23 tamsulosin 0.4 mg capsule 0.4 mg PO QPM #90 caps 09/30/23 morphine 15 mg immediate release 15 mg PO Q6H PRN pain 30 days #120 10/01/23 tablet tabs rosuvastatin 40 mg tablet 40 mg PO BEDTIME #60 tabs 10/05/23 catheter bags #4 ea 10/08/23 calcium citrate 250 mg PO DAILY #90 tabs 10/13/23 cholecalciferol (vitamin D3) 50 50 mcg PO DAILY #90 caps 10/13/23 mcg (2,000 unit) capsule fluticasone fur. 100 mcg-umeclid 1 ea inhalation DAILY #60 ea 10/13/23 62.5 mcg-vilant 25 mcg inhalat.powder (Trelegy Ellipta) metoclopramide HCl 5 mg tablet See Rx Instructions .Route 10/13/23 .COMPLEX #90 tabs trazodone 100 mg tablet 100 mg PO DAILY #90 tabs 10/13/23 triamcinolone acetonide 55 mcg 2 spray intranasal DAILY #16.9 mL 10/13/23 nasal spray aerosol (Nasacort Allergy) dronabinol 5 mg capsule 5 mg PO BID #60 caps 10/19/23 famotidine 20 mg tablet 20 mg PO BID #60 tabs 10/23/23 enzalutamide 80 mg tablet 160 mg (2 x 80 mg) PO DAILY #60 10/30/23 tabs levofloxacin 500 mg tablet 500 mg PO DAILY 7 days #7 tabs 10/31/23 Allergies Allergy/AdvReac Type Severity Reaction Status Date / Time vancomycin Allergy HIVES,RASH Verified 10/31/23 10:02 Review of Systems 2 General: Reports: 10 or more systems reviewed and unremarkable except in HPI and below Const: Reports: fatigue and malaise; Denies: fever(s) or chills Eyes: Denies: change in vision or blurry vision Card: Denies: chest pain or palpitations Resp: Denies: dyspnea or productive cough GI: Denies: abdominal pain, nausea or vomiting : Denies: flank pain Musc: Denies: extremity pain or extremity swelling Skin/Breast: Denies: rash or pruritus Neuro: Reports: headache(s), dizziness and vertigo Psych: Denies: anxiety or depression Wilfrid/Lymph: Denies: easy bleeding All/Imm: Denies: urticaria, throat swelling or facial swelling PFSH ED 2 PFSH: Medical History Weight loss Lower urinary tract symptoms (LUTS) Cancer related pain Urinary tract infection Right kidney mass Burning sensation of feet Lumbar stenosis with neurogenic claudication Intervertebral disc disorder with radiculopathy of lumbosacral region Metastasis to bone Dyslipidemia History of diverticulitis Type 2 diabetes mellitus, without long-term current use of insulin Benign essential HTN Post-surgical hypothyroidism Insomnia GERD (gastroesophageal reflux disease) COPD (chronic obstructive pulmonary disease) 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 Other CAD (coronary artery disease) Social History Smoking and tobacco/nicotine status: former use of tobacco/nicotine (quit 2022) Quit status (tobacco/nicotine): has quit using Year quit tobacco: 2022 Former quit date comment: stopped in February of this year Alcohol intake: never Substance/Drug Use: never Lives independently: Yes Household members: spouse Marital status: Current occupational status: retired Physical Exam 2 Const: COMMON NORMALS: no acute distress, patient oriented x3 and healthy appearing HENMT: COMMON NORMALS: normocephalic and atraumatic HEAD & SCALP: n ormocephalic and atraumatic Eye: COMMON NORMALS: Equal, round and reactive pupils present and EOMs intact bilaterally PUPIL: Yes Equal, round and reactive pupils present Neck/C-Spine: COMMON NORMALS: full ROM, supple and no JVD Lymph: LYMPHATIC: no lymphadenopathy noted Chest: COMMONS NORMALS: normal inspection of the chest and normal palpation of entire chest wall Resp: COMMON NORMALS: normal respiratory effort, No retractions and clear to auscultation bilaterally EFFORT & INSPECTION: Yes able to speak in complete sentences and Yes symmetric chest movement AUSCULTATION: clear to auscultation bilaterally Cardio: COMMON NORMALS: no JVD, regular rate and regular rhythm RATE: r egular rate RHYTHM: regular rhythm GI: COMMON NORMALS: Normal to inspection, nondistended, normoactive bowel sounds present, Soft to palpation and non-tender INSPECTION: Yes normal to inspection PALPATION: Yes Soft to palpation : COMMON NORMALS: Yes no CVA tenderness BLADDER/KIDNEY EXAM: Yes no CVA tenderness Back/Pelvis: COMMON NORMALS: no CVA tenderness Extremity: COMMON NORMALS: normal to inspection and full ROM Neuro: COMMON NORMALS: patient oriented x3, CN's II-XII intact bilaterally, moves all extremities and no focal motor deficits Psych: COMMON NORMALS: mental status grossly normal, Normal thought process present, cooperative and normal affect THOUGHT PROCESS: Normal thought process present Skin: COMMON NORMALS: no rashes or lesions noted GENERAL SKIN EXAM: no rashes or lesions noted Course 2 Vital Signs: Vital signs: Vital Signs Temperature 97.3 F L 10/31/23 09:52 Pulse Rate 89 09/21/24 12:30 Respiratory Rate 18 10/31/23 09:52 Blood Pressure 123/79 10/31/23 12:30 Pulse Oximetry 90 10/31/23 12:30 Oxygen Delivery Me thod Room Air 10/31/23 12:30 Oxygen Flow Rate 2 10/31/23 11:30 MDM - Dizziness Medical Decision Making Due to patient's symptoms and condition IV IV was established basic lab work imaging will be obtained we will continue to follow. Patient was found to urinary tract infection otherwise remainder patient's lab work came back reassuring except for slightly evaded blood glucose of 160 patient advised to be provided dose of Rocephin while in emergency department which she will be subcu discharged home with additional antibiotics advised further follow-up with primary care in 3 to 5 days which patient was advised return the interim if any of his symptoms persist or are worse. Lab Data 10/31/23 10:27 10/31/23 10:27 Radiology Impressions Chest X-Ray 10/31/23 10:33 IMPRESSION: No acute findings. Head CT 10/31/23 10:33 IMPRESSION: No acute intracranial findings. Laboratory Results WBC 4.41 10^3/uL (3.29-11.43) 10/31/23 10:27 RBC 3.61 10^6/uL (3.85-5.65) L 10/31/23 10:27 Hgb 11.40 g/dL (11.27-16.99) 10/31/23 10:27 Hct 35.6 % (37-53) L 10/31/23 10:27 MCV 98.6 fl (82-101) 10/31/23 10:27 MCH 31.6 pg (27-33) 10/31/23 10:27 MCHC 32.0 g/dL (30-55) 10/31/23 10:27 RDW 12.5 % (12.1-15.1) 10/31/23 10:27 Plt Count 202 10^3/cmm (157-399) 10/31/23 10:27 MPV 10.8 fL (7.4-10.4) H 10/31/23 10:27 Neut % (Auto) 63.6 % 10/31/23 10:27 Lymph % (Auto) 17.9 % 10/31/23 10:27 Karnes % (Auto) 13.4 % 10/31/23 10:27 Eos % (Auto) 3.9 % 10/31/23 10:27 Baso % (Auto) 0.5 % 10/31/23 10:27 Neut # (Auto) 2.81 10^3/uL (1.8-7.7) 10/31/23 10:27 Lymph # (Auto) 0.8 10^3/uL (0.8-4.8) 10/31/23 10:27 Karnes # (Auto) 0.6 10^3/uL (0.2-0.9) 10/31/23 10:27 Eos # (Auto) 0.2 10^3/uL (0.0-0.8) 10/31/23 10:27 Baso # (Auto) 0.0 10^3/uL (0.0-0.1) 10/31/23 10:27 Nucleated RBC % (auto) 0 % 10/31/23 10:27 Nucleated RBCs # 0.0 /100WBC 10/31/23 10:27 Sodium 139 mmol/L (136-145) 10/31/23 10:27 Potassium 3.9 mmol/L (3.5-5.1) 10/31/23 10:27 Chloride 102 mmol/L (98-107) 10/31/23 10:27 Carbon Dioxide 23 mmol/L (22-29) 10/31/23 10:27 Anion Gap 17.9 (5-19) 10/31/23 10:27 BUN 9 mg/dL (8-23) 10/31/23 10:27 Creatinine 0.8 mg/dL (0.7-1.2) 10/31/23 10:27 GFR Calculation Not Reportable 10/31/23 10:27 Glucose 165 mg/dL (65-115) H 10/31/23 10:27 Calculated Osmolality 290 mOsm/kg (285-295) 10/31/23 10:27 Calcium 8.4 mg/dL (8.5-10.5) L 10/31/23 10:27 Total Bilirubin 0.2 mg/dL (0.15-1.2) 10/31/23 10:27 AST 12 U/L (0-40) 10/31/23 10:27 ALT 13 U/L (0-41) 10/31/23 10:27 Alkaline Phosphatase 85 U/L (40-130) 10/31/23 10:27 C-Reactive Protein 42.9 mg/L (0.0-4.9) H 10/31/23 10:27 Total Protein 7.0 g/dL (6.6-8.7) 10/31/23 10:27 Albumin 3.5 g/dL (3.5-5.2) 10/31/23 10:27 Globulin 3.5 g/dL (1.3-4.6) 10/31/23 10:27 Urine Color Howard (Yellow) A 10/31/23 13:37 Urine Appearance Cloudy (CLEAR) A 10/31/23 13:37 Urine pH 6.5 (5-7) 10/31/23 13:37 Ur Specific South Range 1.010 (1.005-1.030) 10/31/23 13:37 Urine Protein 2+ (Negative) A 10/31/23 13:37 Urine Glucose (UA) Negative (Normal) 10/31/23 13:37 Urine Ketones Negative (Negative) 10/31/23 13:37 Urine Blood 3+ (Negative) A 10/31/23 13:37 Urine Nitrate Negative (Negative) 10/31/23 13:37 Urine Bilirubin Negative (Negative) 10/31/23 13:37 Urine Urobilinogen 1.0 mg/dL (Negative) 10/31/23 13:37 Ur Leukocyte Esterase 3+ (Negative) A 10/31/23 13:37 Urine RBC >100 /hpf (0-2) H 10/31/23 13:37 Urine WBC >100 /hpf (0-5) H 10/31/23 13:37 Ur Squamous Epith Cells 0-5 /hpf (0-5) 10/31/23 13:37 Amorphous Sediment Not Reportable 10/31/23 13:37 Urine Bacteria 4+ /hpf (NONE) H 10/31/23 13:37 Hyaline Casts 6.20 /lpf 10/31/23 13:37 XR interpretation done by ED provider, pending radiology final review Discharge Plan Discharge Patient Disposition: Home Clinical Impression: Hyperglycemia due to type 2 diabetes mellitus, Urinary tract infection Condition: Stable Prescriptions: New levofloxacin 500 mg tablet 500 mg PO DAILY 7 Days Qty: 7 0RF No Action aspirin 81 mg tablet,delayed release (DR/EC) 81 mg PO DAILY finasteride 5 mg tablet 5 mg PO QPM lorazepam 1 mg tablet 0.5 - 1 mg sublingual Q6H PRN (Reason: Severe nausea) Qty: 30 3RF levothyroxine 175 mcg tablet See Rx Instructions .ROUTE .COMPLEX Dose Instruction: TAKE 1 TABLET BY MOUTH EVERY DAY thursday through thursday. take 1/2 tablet BY MOUTH ON thursday, SKIP thursday Rx Instructions: TAKE 1 TABLET BY MOUTH EVERY DAY Thursday through thursday. take 1/2 tablet BY MOUTH ON thursday, SKIP thursday (DME) Walker See Rx Instructions .ROUTE .MEDSUPPLY Qty: 1 0RF Rx Instructions: As directed PreserVision AREDS 2 Plus MV 200 mcg-15 mcg- 5 mg-1 mg capsule 1 cap PO DAILY acetaminophen 500 mg capsule 1,000 mg PO Q6H PRN (Reason: Pain) triamcinolone acetonide [Nasacort Allergy] 55 mcg aerosol,spray 2 spray intranasal DAILY Qty: 16.9 2RF Rx Instructions: administer into each nostril calcium citrate 250 mg calcium tablet 250 mg PO DAILY Qty: 90 1RF cholecalciferol (vitamin D3) 50 mcg (2,000 unit) capsule 50 mcg PO DAILY Qty: 90 1RF metoclopramide HCl 5 mg tablet See Rx Instructions .ROUTE .COMPLEX Qty: 90 1RF Dose Instruction: TAKE 1 TABLET BY MOUTH THREE TIMES DAILY Rx Instructions: TAKE 1 TABLET BY MOUTH THREE TIMES DAILY trazodone 100 mg tablet 100 mg PO DAILY Qty: 90 2RF Trelegy Ellipta 100-62.5-25 mcg blister with device 1 ea INHALATION DAILY Qty: 60 5RF sucralfate [Carafate] 1 gram tablet 1 g PO Q6H Qty: 60 5RF fluconazole 100 mg tablet 100 mg PO DAILY Qty: 14 0RF ondansetron HCl 8 mg tablet 8 mg PO Q8H PRN (Reason: nausea and vomiting) Qty: 30 1RF (DME) catheter bags See Rx Instructions .Route .MEDSUPPLY Qty: 4 5RF Rx Instructions: As directed nitroglycerin [Nitrostat] 0.4 mg tablet, sublingual 0.4 mg SUBLINGUAL Q5M PRN (Reason: Chest Pain) Qty: 30 1RF (DME) RSV vaccine See Rx Instructions .Route .MEDSUPPLY Qty: 1 0RF Rx Instructions: As directed Eliquis 5 mg tablet 5 mg PO BID Qty: 180 1RF carbamazepine 100 mg tablet extended release 12 hr See Rx Instructions .ROUTE .COMPLEX Qty: 60 3RF Dose Instruction: TAKE 1 TABLET BY MOUTH TWICE DAILY Rx Instructions: TAKE 1 TABLET BY MOUTH TWICE DAILY montelukast 10 mg tablet See Rx Instructions .ROUTE .COMPLEX Qty: 90 2RF Dose Instruction: TAKE 1 TABLET BY MOUTH EVERY DAY Rx Instructions: TAKE 1 TABLET BY MOUTH EVERY DAY tamsulosin 0.4 mg capsule 0.4 mg PO QPM Qty: 90 1RF morphine 15 mg tablet 15 mg PO Q6H PRN (Reason: pain) 30 Days Qty: 120 0RF rosuvastatin 40 mg tablet 40 mg PO BEDTIME Qty: 60 1RF dronabinol 5 mg capsule 5 mg PO BID Qty: 60 0RF Rx Instructions: administer before lunch and evening meal/dinner famotidine 20 mg tablet 20 mg PO BID Qty: 60 2RF enzalutamide 80 mg tablet 160 mg PO DAILY Qty: 60 0RF glipizide 2.5 mg tablet extended release 24hr 2.5 mg PO QAM Claritin 10 mg Tablet 10 mg PO QPM Probiotic 3 billion cell Capsule 3,000 mmu cells PO DAILY Rx Instructions: administer with a meal metoprolol succinate 25 mg tablet extended release 24 hr 25 mg PO QAM Januvia 100 mg tablet 100 mg PO QAM Discharge Orders: Discharge ED (Routine); Ordered 10/31/23 Ordered By: Daniel Gil Referrals: Jose Thomason MD [Primary Care Provider] - 4-7 days Discharge Diet: Advance as tolerated Patient Instructions: How to Care for Your Suprapubic Catheter (DC), Diabetic Hyperglycemia (ED), Catheter-associated Urinary Tract Infection (ED) Activity Restrictions/Additional Instructions: Please further follow-up primary care in 3 to 5 days please take medications as prescribed, increase your oral hydration of water blood sugar levels in which please return the interim if any of your symptoms persist or worse. Coding Level of Care Code ED Fruit Stuffer for Gale Callahan
[2023-10-31 10:56] LABS: Basophils % 0.5 %; Eosinophils # 0.2 10^3/uL (0.0-0.8); Eosinophils % 3.9 %; Hematocrit 35.6 % (37-53); Lymphocytes # 0.8 10^3/uL (0.8-4.8); Lymphocytes % 17.9 %; Mean Corpuscular Hemoglobin 31.6 pg (27-33); Mean Corpuscular Volume 98.6 fl (82-101); Mean Platelet Volume 10.8 fL (7.4-10.4); Monocytes # 0.6 10^3/uL (0.2-0.9); Monocytes % 13.4 %; Neutrophils # 2.81 10^3/uL (1.8-7.7); Neutrophils % 63.6 %; Nucleated Red Blood Cells % 0 %; Platelet Count 202 10^3/cmm (157-399); Red Blood Count 3.61 10^6/uL (3.85-5.65); Red Cell Distribution Width 12.5 % (12.1-15.1); White Blood Count 4.41 10^3/uL (3.29-11.43)
[2023-10-31] MEDS: sodium chloride 0.9% 1,000 ML 999 ML IV (10:58)
[2023-10-31 11:07] LABS: Alanine Aminotransferase 13 U/L (0-41); Albumin Level 3.5 g/dL (3.5-5.2); Alkaline Phosphatase 85 U/L (40-130); Aspartate Amino Transferase 12 U/L (0-40); Blood Urea Nitrogen 9 mg/dL (8-23); C Reactive Protein 42.9 mg/L (0.0-4.9); Calcium 8.4 mg/dL (8.5-10.5); Carbon Dioxide 23 mmol/L (22-29); Chloride 102 mmol/L (98-107); Globulin 3.5 g/dL (1.3-4.6); Glucose 165 mg/dL (65-115); Osmolality Calculated 290 mOsm/kg (285-295); Sodium 139 mmol/L (136-145); Total Bilirubin 0.2 mg/dL (0.15-1.2)
[2023-10-31 11:08] LABS: Anion Gap 17.9 (5-19); Potassium 3.9 mmol/L (3.5-5.1)
[2023-10-31 11:30] VITALS: BP 111/84; PULSE 85; O2SAT 93
[2023-10-31 12:30] VITALS: BP 123/79; PULSE 89; O2SAT 90
[2023-10-31 13:45] LABS: Bilirubin Urine Negative (Negative); Blood Urine 3+ (Negative); Glucose Urine UA Negative (Normal); Ketones Urine Negative (Negative); Leukocyte Esterase Urine 3+ (Negative); Nitrate Urine Negative (Negative); Protein Urine 2+ (Negative); Urine Appearance Cloudy (CLEAR); pH Urine 6.5 (5-7)
[2023-10-31 13:50] LABS: Add Urine Microscopic? YES; Bacteria Urine 4+ /hpf; RBC Urine >100 /hpf (0-2); Squamous Epithelial Cell Urine 0-5 /hpf (0-5); WBC Urine >100 /hpf (0-5)
[2023-10-31 13:51] LABS: Urine Color Orange (Yellow)
[2023-10-31 13:52] LABS: Add Urine Culture? Yes
[2023-10-31] MEDS: cefTRIAXone 1,000 mg SDV 1000 MG IVP (14:18)
[2023-10-31 14:40] VITALS: BP 157/89; PULSE 90; RESP 17; O2SAT 96
== END 2023-10-31 14:40 | disposition home or self-care (01) ==
PROVIDERS: Emergency Provider Emergency Medicine; PCP Family Medicine
DX: E11.65 Type 2 diabetes mellitus with hyperglycemia (principal); N39.0 Urinary tract infection, site not specified; Z79.82 Long term (current) use of aspirin; Z79.01 Long term (current) use of anticoagulants; Z79.84 Long term (current) use of oral hypoglycemic drugs; Z87.891 Personal history of nicotine dependence; Z87.440 Personal history of urinary (tract) infections; E78.5 Hyperlipidemia, unspecified; I10 Essential (primary) hypertension; J44.9 Chronic obstructive pulmonary disease, unspecified; Z85.850 Personal history of malignant neoplasm of thyroid; Z85.46 Personal history of malignant neoplasm of prostate
CPT/HCPCS: 70450; 71045; 80053; 81001; 85025; 86140; 87077; 87086; 87186; 96361; 96374; 99285; J0696; J7030

== ENCOUNTER 2023-11-03 17:11 | Emergency (ER) | payer MEDICARE, MEDICAID, SELFPAY ==
--- NOTE | 2023-11-03 17:17 | ECG_ITS ---
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 Measurements Intervals [place]me Rate: 77 P: 103 MO: 172 QRS: 49 QRSD: 82 T: 55 QT: 371 QTc: 420 Interpretive Statements SINUS RHYTHM WITH OCCASIONAL VENTRICULAR PREMATURE COMPLEXES Compared to ECG 07/31/2023 11:34:46 Ventricular premature complex(es) now present Sinus tachycardia no longer present Electronically Signed On 11-04-2023 08:08:42 CDT by Isaías Spring M.D. [id number]
[2023-11-03 17:23] VITALS: BP 126/76; PULSE 77; TEMP 36.5; O2SAT 99; BMI 32.0
--- NOTE | 2023-11-03 17:32 | XRR_ITS ---
PROCEDURE INFORMATION: Exam: XR Chest Exam date and time: 11/03/2023 5:35 PM Age: 78 years old Clinical indication: Shortness of breath; Additional info: SOB TECHNIQUE: Imaging protocol: Radiologic exam of the chest. Views: 1 view. COMPARISON: CR (CHEST, ) 10/31/2023 10:52 AM FINDINGS: Lungs: The lungs appear free of acute disease. Stable granulomatous changes. Pleural spaces: Unremarkable. No pleural effusion. No pneumothorax. Heart/Mediastinum: Unremarkable. No cardiomegaly. Bones/joints: Unremarkable. XR/XR chest 1V portable [id number] IMPRESSION: Stable nonacute findings.
--- NOTE | 2023-11-03 17:41 | ED_ITS ---
HPI - SOB/Dyspnea 2 General: Chief Complaint: Shortness of Breath/Dyspnea Stated Complaint: SOB Time Seen by Provider: 11/03/23 17:16 Source: patient Mode of arrival: ambulatory Limitations: no limitations History of Present Illness: HPI Narrative: 78-year-old male has a history of COPD s tates that over the last 2 to 3 days has had some nasal congestion with cough and increasing shortness of breath. He states he wears 1 to 2 L of oxygen at baseline he is on 2 L of oxygen here. He denies any fever denies any chest pain states his dyspnea is worse with exertion. Associated symptoms: Deny abdominal pain, chest pain, fever(s), nausea or vomiting Related Data Home Medications Medication Instructions Recorded Confirmed aspirin 81 mg tablet,delayed 81 mg PO DAILY 03/29/19 10/26/23 release mv-mn-folic 200 mcg-vit K 15 1 cap PO DAILY 04/09/23 10/26/23 mcg-lutein 5 mg-zeaxanthin 1 mg capsule (PreserVision AREDS 2 Plus Multivit) finasteride 5 mg tablet 5 mg PO QPM 05/20/23 10/26/23 acetaminophen 500 mg capsule 1,000 mg PO Q6H PRN Pain 07/02/23 10/26/23 glipizide 2.5 mg tablet, extended 2.5 mg PO QAM 07/31/23 10/26/23 release 24 hr lactobacillus combination no.4 3 3,000 mmu cells PO DAILY 07/31/23 10/26/23 billion cell capsule (Probiotic) loratadine 10 mg tablet (Claritin) 10 mg PO QPM 07/31/23 10/26/23 metoprolol succinate 25 mg 25 mg PO QAM 07/31/23 10/26/23 tablet,extended release 24 hr sitagliptin phosphate 100 mg 100 mg PO QAM 07/31/23 10/26/23 tablet (Januvia) levothyroxine 175 mcg tablet See Rx Instructions .Route .COMPLEX 10/26/23 10/26/23 Previous Rx's Medication Instructions Recorded nitroglycerin 0.4 mg sublingual 0.4 mg sublingual Q5M PRN Chest 07/21/22 tablet (Nitrostat) Pain #30 tabs Walker #1 ea 07/28/22 RSV vaccine #1 ea 11/04/22 lorazepam 1 mg tablet 0.5 - 1 mg (0.5 - 1 x 1 mg) 05/27/23 sublingual Q6H PRN Severe nausea #30 tabs apixaban 5 mg tablet (Eliquis) 5 mg PO BID #180 tabs 08/03/23 carbamazepine 100 mg See Rx Instructions .Route 08/14/23 tablet,extended release,12 hr .COMPLEX #60 tabs fluconazole 100 mg tablet 100 mg PO DAILY #14 tabs 08/24/23 ondansetron HCl 8 mg tablet 8 mg PO Q8H PRN nausea and 08/24/23 vomiting #30 tabs montelukast 10 mg tablet See Rx Instructions .Route 08/25/23 .COMPLEX #90 tabs sucralfate 1 gram tablet (Carafate) 1 g PO Q6H #60 tabs 09/07/23 tamsulosin 0.4 mg capsule 0.4 mg PO QPM #90 caps 09/30/23 morphine 15 mg immediate release 15 mg PO Q6H PRN pain 30 days #120 10/01/23 tablet tabs rosuvastatin 40 mg tablet 40 mg PO BEDTIME #60 tabs 10/05/23 catheter bags #4 ea 10/08/23 calcium citrate 250 mg PO DAILY #90 tabs 10/13/23 cholecalciferol (vitamin D3) 50 50 mcg PO DAILY #90 caps 10/13/23 mcg (2,000 unit) capsule fluticasone fur. 100 mcg-umeclid 1 ea inhalation DAILY #60 ea 10/13/23 62.5 mcg-vilant 25 mcg inhalat.powder (Trelegy Ellipta) metoclopramide HCl 5 mg tablet See Rx Instructions .Route 10/13/23 .COMPLEX #90 tabs trazodone 100 mg tablet 100 mg PO DAILY #90 tabs 10/13/23 triamcinolone acetonide 55 mcg 2 spray intranasal DAILY #16.9 mL 10/13/23 nasal spray aerosol (Nasacort Allergy) dronabinol 5 mg capsule 5 mg PO BID #60 caps 10/19/23 famotidine 20 mg tablet 20 mg PO BID #60 tabs 10/23/23 enzalutamide 80 mg tablet 160 mg (2 x 80 mg) PO DAILY #60 10/30/23 tabs levofloxacin 500 mg tablet 500 mg PO DAILY 7 days #7 tabs 10/31/23 prednisone 50 mg tablet 50 mg PO DAILY #5 tabs 11/03/23 Allergies Allergy/AdvReac Type Severity Reaction Status Date / Time vancomycin Allergy HIVES,RASH Verified 11/03/23 17:26 Review of Systems 2 Const: Denies: fever(s), chills, body aches or change in appetite ENMT: Denies: throat pain or dental pain Card: Denies: chest pain Resp: Reports: dyspnea and non-productive cough GI: Denies: abdominal pain, nausea, vomiting or diarrhea Musc: Denies: neck pain or back pain Skin/Breast: Denies: rash Neuro: Denies: headache(s) PFSH ED 2 PFSH: Medical History Weight loss Lower urinary tract symptoms (LUTS) Cancer related pain Urinary tract infection Right kidney mass Burning sensation of feet Lumbar stenosis with neurogenic claudication Intervertebral disc disorder with radiculopathy of lumbosacral region Metastasis to bone Dyslipidemia History of diverticulitis Type 2 diabetes mellitus, without long-term current use of insulin Benign essential HTN Post-surgical hypothyroidism Insomnia GERD (gastroesophageal reflux disease) COPD (chronic obstructive pulmonary disease) 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 Other CAD (coronary artery disease) Social History Smoking and tobacco/nicotine status: former use of tobacco/nicotine (quit 2022) Quit status (tobacco/nicotine): has quit using Year quit tobacco: 2022 Former quit date comment: stopped in February of this year Alcohol intake: never Substance/Drug Use: never Lives independently: Yes Household members: spouse Marital status: Current occupational status: retired Physical Exam 2 Const: COMMON NORMALS: no acute distress, patient oriented x3 and healthy appearing HENMT: COMMON NORMALS: normocephalic and atraumatic HEAD & SCALP: n ormocephalic and atraumatic Neck/C-Spine: COMMON NORMALS: full ROM and supple Chest: COMMONS NORMALS: normal inspection of the chest Resp: COMMON NORMALS: normal respiratory effort, No retractions and No use of accessory muscles AUSCULTATION: wheezes Cardio: COMMON NORMALS: regular rate, regular rhythm and No murmurs present (Cardio) RATE: regular rate RHYTHM: regular rhythm GI: COMMON NORMALS: Normal to inspection, nondistended, normoactive bowel sounds present, Soft to palpation, non-tender and no masses PALPATION: Yes Soft to palpation Extremity: COMMON NORMALS: normal to inspection and full ROM Neuro: COMMON NORMALS: patient oriented x3, moves all extremities and no focal motor deficits Psych: COMMON NORMALS: mental status grossly normal, Normal thought process present and cooperative THOUGHT PROCESS: Normal thought process present Skin: COMMON NORMALS: no rashes or lesions noted and no wounds GENERAL SKIN EXAM: no rashes or lesions noted Course 2 Vital Signs: Vital signs: Vital Signs Temperature 97.7 F 11/03/23 17:23 Pulse Rate 84 11/03/23 18:41 Respiratory Rate 16 11/03/23 18:41 Blood Pressure 144/70 11/03/23 18:26 Pulse Oximetry 93 11/03/23 18:41 Oxygen Delivery Me thod Nasal Cannula 11/03/23 18:41 Oxygen Flow Rate 2 11/03/23 18:15 MDM - SOB/Dyspnea Medical Decision Making Patient presents here with COPD exacerbation he has been well-appearing here not requiring extra oxygen x-ray showed no pneumonia we will prescribe him prednisone he is stable for discharge follow-up with PCP return if worsening he understands agrees to plan. Medical Records I reviewed the patient's medical records. Lab Data I reviewed the patient's lab results. 11/03/23 17:43 11/03/23 17:43 Labs/Radiology: Radiology Impressions Chest X-Ray 11/03/23 17:32 IMPRESSION: Stable nonacute findings. Laboratory Results WBC 3.42 10^3/uL (3.29-11.43) 11/03/23 17:43 RBC 3.54 10^6/uL (3.85-5.65) L 11/03/23 17:43 Hgb 11.10 g/dL (11.27-16.99) L 11/03/23 17:43 Hct 35.2 % (37-53) L 11/03/23 17:43 MCV 99.4 fl (82-101) 11/03/23 17:43 MCH 31.4 pg (27-33) 11/03/23 17:43 MCHC 31.5 g/dL (30-55) 11/03/23 17:43 RDW 12.8 % (12.1-15.1) 11/03/23 17:43 Plt Count 223 10^3/cmm (157-399) 11/03/23 17:43 MPV 10.0 fL (7.4-10.4) 11/03/23 17:43 Neut % (Auto) 52.0 % 11/03/23 17:43 Lymph % (Auto) 28.4 % 11/03/23 17:43 [place] % (Auto) 16.4 % 11/03/23 17:43 Eos % (Auto) 2.0 % 11/03/23 17:43 Baso % (Auto) 0.9 % 11/03/23 17:43 Neut # (Auto) 1.78 10^3/uL (1.8-7.7) L 11/03/23 17:43 Lymph # (Auto) 1.0 10^3/uL (0.8-4.8) 11/03/23 17:43 [place] # (Auto) 0.6 10^3/uL (0.2-0.9) 11/03/23 17:43 Eos # (Auto) 0.1 10^3/uL (0.0-0.8) 11/03/23 17:43 Baso # (Auto) 0.0 10^3/uL (0.0-0.1) 11/03/23 17:43 Nucleated RBC % (auto) 0 % 11/03/23 17:43 Nucleated RBCs # 0.0 /100WBC 11/03/23 17:43 Sodium 138 mmol/L (136-145) 11/03/23 17:43 Potassium 3.9 mmol/L (3.5-5.1) 11/03/23 17:43 Chloride 104 mmol/L (98-107) 11/03/23 17:43 Carbon Dioxide 22 mmol/L (22-29) 11/03/23 17:43 Anion Gap 15.9 (5-19) 11/03/23 17:43 BUN 9 mg/dL (8-23) 11/03/23 17:43 Creatinine 1.0 mg/dL (0.7-1.2) 11/03/23 17:43 GFR Calculation Not Reportable 11/03/23 17:43 Glucose 88 mg/dL (65-115) 11/03/23 17:43 Calculated Osmolality 284 mOsm/kg (285-295) L 11/03/23 17:43 Calcium 8.6 mg/dL (8.5-10.5) 11/03/23 17:43 Total Bilirubin 0.2 mg/dL (0.15-1.2) 11/03/23 17:43 AST 12 U/L (0-40) 11/03/23 17:43 ALT 12 U/L (0-41) 11/03/23 17:43 Alkaline Phosphatase 81 U/L (40-130) 11/03/23 17:43 NT-Pro-B Natriuret Pep 313 pg/mL (0-450) 11/03/23 17:43 Total Protein 7.2 g/dL (6.6-8.7) 11/03/23 17:43 Albumin 3.4 g/dL (3.5-5.2) L 11/03/23 17:43 Globulin 3.8 g/dL (1.3-4.6) 11/03/23 17:43 Coronavirus (PCR) Negative (Negative) 11/03/23 17:53 Influenza A (PCR) Negative (Negative) 11/03/23 17:53 Influenza Type B (PCR) Negative (Negative) 11/03/23 17:53 RSV (PCR) Negative (Negative) 11/03/23 17:53 All radiology interpretation(s) finalized by discharge Discharge Plan Discharge Patient Disposition: Home Clinical Impression: Acute exacerbation of chronic obstructive airways disease Condition: Stable Prescriptions: New prednisone 50 mg tablet 50 mg PO DAILY Qty: 5 0RF No Action aspirin 81 mg tablet,delayed release (DR/EC) 81 mg PO DAILY finasteride 5 mg tablet 5 mg PO QPM lorazepam 1 mg tablet 0.5 - 1 mg sublingual Q6H PRN (Reason: Severe nausea) Qty: 30 3RF levothyroxine 175 mcg tablet See Rx Instructions .ROUTE .COMPLEX Dose Instruction: TAKE 1 TABLET BY MOUTH EVERY DAY thursday through thursday. take 1/2 tablet BY MOUTH ON thursday, SKIP thursday Rx Instructions: TAKE 1 TABLET BY MOUTH EVERY DAY Thursday through thursday. take 1/2 tablet BY MOUTH ON thursday, SKIP thursday (DME) Walker See Rx Instructions .ROUTE .MEDSUPPLY Qty: 1 0RF Rx Instructions: As directed PreserVision AREDS 2 Plus MV 200 mcg-15 mcg- 5 mg-1 mg capsule 1 cap PO DAILY acetaminophen 500 mg capsule 1,000 mg PO Q6H PRN (Reason: Pain) triamcinolone acetonide [Nasacort Allergy] 55 mcg aerosol,spray 2 spray intranasal DAILY Qty: 16.9 2RF Rx Instructions: administer into each nostril calcium citrate 250 mg calcium tablet 250 mg PO DAILY Qty: 90 1RF cholecalciferol (vitamin D3) 50 mcg (2,000 unit) capsule 50 mcg PO DAILY Qty: 90 1RF metoclopramide HCl 5 mg tablet See Rx Instructions .ROUTE .COMPLEX Qty: 90 1RF Dose Instruction: TAKE 1 TABLET BY MOUTH THREE TIMES DAILY Rx Instructions: TAKE 1 TABLET BY MOUTH THREE TIMES DAILY trazodone 100 mg tablet 100 mg PO DAILY Qty: 90 2RF Trelegy Ellipta 100-62.5-25 mcg blister with device 1 ea INHALATION DAILY Qty: 60 5RF sucralfate [Carafate] 1 gram tablet 1 g PO Q6H Qty: 60 5RF fluconazole 100 mg tablet 100 mg PO DAILY Qty: 14 0RF ondansetron HCl 8 mg tablet 8 mg PO Q8H PRN (Reason: nausea and vomiting) Qty: 30 1RF (DME) catheter bags See Rx Instructions .Route .MEDSUPPLY Qty: 4 5RF Rx Instructions: As directed nitroglycerin [Nitrostat] 0.4 mg tablet, sublingual 0.4 mg SUBLINGUAL Q5M PRN (Reason: Chest Pain) Qty: 30 1RF (DME) RSV vaccine See Rx Instructions .Route .MEDSUPPLY Qty: 1 0RF Rx Instructions: As directed Eliquis 5 mg tablet 5 mg PO BID Qty: 180 1RF carbamazepine 100 mg tablet extended release 12 hr See Rx Instructions .ROUTE .COMPLEX Qty: 60 3RF Dose Instruction: TAKE 1 TABLET BY MOUTH TWICE DAILY Rx Instructions: TAKE 1 TABLET BY MOUTH TWICE DAILY montelukast 10 mg tablet See Rx Instructions .ROUTE .COMPLEX Qty: 90 2RF Dose Instruction: TAKE 1 TABLET BY MOUTH EVERY DAY Rx Instructions: TAKE 1 TABLET BY MOUTH EVERY DAY tamsulosin 0.4 mg capsule 0.4 mg PO QPM Qty: 90 1RF morphine 15 mg tablet 15 mg PO Q6H PRN (Reason: pain) 30 Days Qty: 120 0RF rosuvastatin 40 mg tablet 40 mg PO BEDTIME Qty: 60 1RF dronabinol 5 mg capsule 5 mg PO BID Qty: 60 0RF Rx Instructions: administer before lunch and evening meal/dinner famotidine 20 mg tablet 20 mg PO BID Qty: 60 2RF enzalutamide 80 mg tablet 160 mg PO DAILY Qty: 60 0RF glipizide 2.5 mg tablet extended release 24hr 2.5 mg PO QAM Claritin 10 mg Tablet 10 mg PO QPM Probiotic 3 billion cell Capsule 3,000 mmu cells PO DAILY Rx Instructions: administer with a meal metoprolol succinate 25 mg tablet extended release 24 hr 25 mg PO QAM Januvia 100 mg tablet 100 mg PO QAM levofloxacin 500 mg tablet 500 mg PO DAILY 7 Days Qty: 7 0RF Discharge Orders: Discharge ED (Routine); Ordered 11/03/23 Ordered By: Vale Mcguire Referrals: Jose Thomason MD [Primary Care Provider] - 4-7 days Discharge Diet: Advance as tolerated Discharge Activity: Resume usual activity Patient Instructions: COPD (Chronic Obstructive Pulmonary Disease) (ED) Coding Level of Care Code ED 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
[2023-11-03 17:52] LABS: Basophils % 0.9 %; Eosinophils # 0.1 10^3/uL (0.0-0.8); Hematocrit 35.2 % (37-53); Lymphocytes % 28.4 %; Mean Corpuscular HGB Conc 31.5 g/dL (30-55); Mean Corpuscular Hemoglobin 31.4 pg (27-33); Mean Corpuscular Volume 99.4 fl (82-101); Monocytes # 0.6 10^3/uL (0.2-0.9); Monocytes % 16.4 %; Neutrophils # 1.78 10^3/uL (1.8-7.7); Nucleated Red Blood Cells % 0 %; Platelet Count 223 10^3/cmm (157-399); Red Blood Count 3.54 10^6/uL (3.85-5.65); Red Cell Distribution Width 12.8 % (12.1-15.1); White Blood Count 3.42 10^3/uL (3.29-11.43)
[2023-11-03] MEDS: methylPREDNISolone sod succ 125 mg/2 mL INJ IVP (17:52)
[2023-11-03] MEDS: sodium chloride 0.9% 1,000 ML 999 ML IV (17:55)
[2023-11-03 18:15] VITALS: PULSE 87; RESP 16; O2SAT 96
[2023-11-03 18:17] LABS: Alanine Aminotransferase 12 U/L (0-41); Albumin Level 3.4 g/dL (3.5-5.2); Alkaline Phosphatase 81 U/L (40-130); Anion Gap 15.9 (5-19); Aspartate Amino Transferase 12 U/L (0-40); Blood Urea Nitrogen 9 mg/dL (8-23); Calcium 8.6 mg/dL (8.5-10.5); Carbon Dioxide 22 mmol/L (22-29); Chloride 104 mmol/L (98-107); Creatinine Clr Calc Pharmacy 83.6552; Globulin 3.8 g/dL (1.3-4.6); Glucose 88 mg/dL (65-115); NT Pro B Type Natriuretic Pept 313 pg/mL (0-450); Osmolality Calculated 284 mOsm/kg (285-295); Potassium 3.9 mmol/L (3.5-5.1); Sodium 138 mmol/L (136-145); Total Bilirubin 0.2 mg/dL (0.15-1.2); Total Protein 7.2 g/dL (6.6-8.7)
[2023-11-03] MEDS: albuterol 2.5 mg/3 mL Neb INHALATION (18:25)
[2023-11-03] MEDS: ipratropium-albuterol 3 mL Neb INHALATION (18:25)
[2023-11-03 18:26] VITALS: BP 144/70; PULSE 86; RESP 17; O2SAT 92
[2023-11-03 18:27] VITALS: PULSE 88
[2023-11-03 18:41] VITALS: PULSE 84; RESP 16; O2SAT 93
[2023-11-03 18:48] LABS: Covid PCR NEGATIVE (Negative); Influenza A NEGATIVE (Negative); Influenza B NEGATIVE (Negative); Respiratory Syncytial Virus Ce NEGATIVE (Negative)
[2023-11-03 19:16] VITALS: BP 125/71; PULSE 83; O2SAT 93
== END 2023-11-03 19:17 | disposition home or self-care (01) ==
PROVIDERS: Emergency Provider Emergency Medicine; PCP Family Medicine
DX: J44.1 Chronic obstructive pulmonary disease with (acute) exacerbation (principal); Z79.82 Long term (current) use of aspirin; Z79.01 Long term (current) use of anticoagulants; Z79.84 Long term (current) use of oral hypoglycemic drugs; Z11.52 Encounter for screening for COVID-19; Z87.891 Personal history of nicotine dependence; E78.5 Hyperlipidemia, unspecified; E11.9 Type 2 diabetes mellitus without complications; I10 Essential (primary) hypertension; J44.9 Chronic obstructive pulmonary disease, unspecified; Z85.46 Personal history of malignant neoplasm of prostate; Z85.850 Personal history of malignant neoplasm of thyroid; Z99.81 Dependence on supplemental oxygen
CPT/HCPCS: 0241U; 36415; 71045; 80053; 83880; 85025; 93005; 94640; 96374; 99285; J2919; J7030; J7613

== ENCOUNTER → 2023-11-04 09:04 | Outpatient (BNVA) | payer MEDICARE, MEDICAID, SELFPAY | PROVIDERS: PCP Family Medicine; Referring Provider Internal Medicine Medical Oncology; Visit Provider Surgery | DX: K59.00 Constipation, unspecified (principal) | CPT/HCPCS: 99203; 99213 ==

== ENCOUNTER 2023-11-06 13:08 | Emergency (ER) | payer MEDICARE, MEDICAID, SELFPAY ==
[2023-11-06 13:14] VITALS: BP 163/103; PULSE 113; RESP 18; TEMP 36.7; O2SAT 94; BMI 32.0
[2023-11-06 13:19] VITALS: BP 163/103; PULSE 86; RESP 18; O2SAT 94
--- NOTE | 2023-11-06 13:24 | ED_ITS ---
HPI - General Adult 2 General: Chief complaint: Allergic Reaction Stated complaint: possible allergic reaction SOB Time Seen by Provider: 11/06/23 13:17 Source: patient and family () Mode of arrival: wheelchair Limitations: no limitations History of Present Illness: Patient is a 78-year-old male with a history of metastatic prostate cancer presents to ED today with complaint of nausea/dry heaving, dizziness, shortness of breath. Patient states he has a history of COPD. He was seen here in our facility on 10/30 for hyperglycemia and dizziness. He was subsequently seen again on 11/02 for COPD exacerbation. Between these 2 visits he was placed on Levaquin and Prednisone. He was seen in the walk-in clinic earlier today for complaints of shortness of breath. He had diffuse wheezing which cleared with nebulizer treatment. Patient states he felt good when he left the clinic. He states he later took his first dose of his new chemotherapy drug (enzalutamide 80mg x 2 tabs) and states about 30-60 mins later felt nauseous/dry heaves, dizziness, and throat itchiness. Upon arrival and upon my initial assessment, his main complaint is nausea. states he has had this frequently during his cancer waters. He reportedly came to the ED because his specialty pharmacy told him it could be an allergic reaction to the medication. Onset (ago): hour(s) Relieving factors: none Exacerbating factors: none Associated symptoms: Reports dyspnea and nausea; Deny chest pain, confusion, headache(s), malaise, rash, palpitations, syncope or vomiting Treatments prior to arrival: none Related Data Home Medications Medication Instructions Recorded Confirmed aspirin 81 mg tablet,delayed 81 mg PO DAILY 03/29/19 11/06/23 release mv-mn-folic 200 mcg-vit K 15 1 cap PO DAILY 04/09/23 11/06/23 mcg-lutein 5 mg-zeaxanthin 1 mg capsule (PreserVision AREDS 2 Plus Multivit) finasteride 5 mg tablet 5 mg PO QPM 05/20/23 11/06/23 acetaminophen 500 mg capsule 1,000 mg PO Q6H PRN Pain 07/02/23 11/06/23 glipizide 2.5 mg tablet, extended 2.5 mg PO QAM 07/31/23 11/06/23 release 24 hr lactobacillus combination no.4 3 3,000 mmu cells PO DAILY 07/31/23 11/06/23 billion cell capsule (Probiotic) loratadine 10 mg tablet (Claritin) 10 mg PO QPM 07/31/23 11/06/23 metoprolol succinate 25 mg 25 mg PO QAM 07/31/23 11/06/23 tablet,extended release 24 hr sitagliptin phosphate 100 mg 100 mg PO QAM 07/31/23 11/06/23 tablet (Januvia) levothyroxine 175 mcg tablet See Rx Instructions .Route .COMPLEX 10/26/23 11/06/23 Previous Rx's Medication Instructions Recorded nitroglycerin 0.4 mg sublingual 0.4 mg sublingual Q5M PRN Chest 07/21/22 tablet (Nitrostat) Pain #30 tabs Walker #1 ea 07/28/22 RSV vaccine #1 ea 11/04/22 lorazepam 1 mg tablet 0.5 - 1 mg (0.5 - 1 x 1 mg) 05/27/23 sublingual Q6H PRN Severe nausea #30 tabs apixaban 5 mg tablet (Eliquis) 5 mg PO BID #180 tabs 08/03/23 carbamazepine 100 mg See Rx Instructions .Route 08/14/23 tablet,extended release,12 hr .COMPLEX #60 tabs fluconazole 100 mg tablet 100 mg PO DAILY #14 tabs 08/24/23 ondansetron HCl 8 mg tablet 8 mg PO Q8H PRN nausea and 08/24/23 vomiting #30 tabs montelukast 10 mg tablet See Rx Instructions .Route 08/25/23 .COMPLEX #90 tabs sucralfate 1 gram tablet (Carafate) 1 g PO Q6H #60 tabs 09/07/23 tamsulosin 0.4 mg capsule 0.4 mg PO QPM #90 caps 09/30/23 morphine 15 mg immediate release 15 mg PO Q6H PRN pain 30 days #120 10/01/23 tablet tabs rosuvastatin 40 mg tablet 40 mg PO BEDTIME #60 tabs 10/05/23 catheter bags #4 ea 10/08/23 calcium citrate 250 mg PO DAILY #90 tabs 10/13/23 cholecalciferol (vitamin D3) 50 50 mcg PO DAILY #90 caps 10/13/23 mcg (2,000 unit) capsule fluticasone fur. 100 mcg-umeclid 1 ea inhalation DAILY #60 ea 10/13/23 62.5 mcg-vilant 25 mcg inhalat.powder (Trelegy Ellipta) metoclopramide HCl 5 mg tablet See Rx Instructions .Route 10/13/23 .COMPLEX #90 tabs trazodone 100 mg tablet 100 mg PO DAILY #90 tabs 10/13/23 triamcinolone acetonide 55 mcg 2 spray intranasal DAILY #16.9 mL 10/13/23 nasal spray aerosol (Nasacort Allergy) dronabinol 5 mg capsule 5 mg PO BID #60 caps 10/19/23 famotidine 20 mg tablet 20 mg PO BID #60 tabs 10/23/23 enzalutamide 80 mg tablet 160 mg (2 x 80 mg) PO DAILY #60 10/30/23 tabs levofloxacin 500 mg tablet 500 mg PO DAILY 7 days #7 tabs 10/31/23 prednisone 50 mg tablet 50 mg PO DAILY #5 tabs 11/03/23 ipratropium 0.5 mg-albuterol 3 mg 3 ml inhalation Q6H PRN wheezing 11/06/23 (2.5 mg base)/3 mL nebulization #90 mL soln nebulizer with tubing #1 ea 11/06/23 Allergies Allergy/AdvReac Type Severity Reaction Status Date / Time vancomycin Allergy HIVES,RASH Verified 11/06/23 07:53 Review of Systems 2 Const: Denies: fever(s), chills, body aches, fatigue or malaise Eyes: Reports: blurry vision ENMT: Denies: throat pain, odynophagia or swelling of lips/tongue Card: Denies: chest pain, palpitations, irregular heart rhythm, edema, swelling of feet/ankles, syncope or pre-syncope Resp: Reports: dyspnea; Denies: productive cough or chest congestion GI: Reports: nausea; Denies: abdominal pain, vomiting or diarrhea Musc: Denies: neck pain, back pain, extremity pain, joint pain or joint swelling Skin/Breast: Denies: rash Neuro: Reports: dizziness; Denies: headache(s), numbness in extremities, weakness in extremities, sensory changes, lack of coordination, difficulty walking or confusion PFSH ED 2 PFSH: Medical History Weight loss Lower urinary tract symptoms (LUTS) Cancer related pain Urinary tract infection Right kidney mass Burning sensation of feet Lumbar stenosis with neurogenic claudication Intervertebral disc disorder with radiculopathy of lumbosacral region Metastasis to bone Dyslipidemia History of diverticulitis Type 2 diabetes mellitus, without long-term current use of insulin Benign essential HTN Post-surgical hypothyroidism Insomnia GERD (gastroesophageal reflux disease) COPD (chronic obstructive pulmonary disease) 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 Other CAD (coronary artery disease) Social History Smoking and tobacco/nicotine status: never used tobacco/nicotine Quit status (tobacco/nicotine): has quit using Year quit tobacco: 2022 Former quit date comment: stopped in February of this year Alcohol intake: never Substance/Drug Use: never Lives independently: Yes Household members: spouse Marital status: Current occupational status: retired Physical Exam 2 Const: COMMON NORMALS: no acute distress, average body habitus, patient oriented x3, no limitations, healthy appearing, alert and well nourished O RIENTATION/CONSCIOUSNESS: Yes awake, Yes oriented to person, Yes oriented to place and Yes oriented to time OTHER: occasional dry heaving HENMT: COMMON NORMALS: normocephalic and atraumatic HEAD & SCALP: normal to inspection, normocephalic and atraumatic MOUTH: other (no angioedema) T HROAT: posterior oropharynx normal Eye: GENERAL EYE: appearance normal, both eyes and all related structures Neck/C-Spine: COMMON NORMALS: full ROM and no lymphadenopathy GENERAL: Yes normal visual inspection, No anterior neck swelling and No submandibular swelling Resp: COMMON NORMALS: normal respiratory effort and clear to auscultation bilaterally AUSCULTATION: clear to auscultation bilaterally Cardio: COMMON NORMALS: regular rate and regular rhythm RATE: regular rate RHYTHM: regular rhythm GI: COMMON NORMALS: Normal to inspection, nondistended, normoactive bowel sounds present, Soft to palpation and non-tender PALPATION: Yes Soft to palpation Neuro: LEOBARDO COMA SCALE: document GCS findings [place] coma scale eye opening: Spontaneous [place] coma scale verbal response: Orientated [place] coma scale motor response: Obey commands Leobardo coma scale total score: 15 COMMON NORMALS: patient oriented x3 SENSORIUM/ORIENTATION: Yes alert, Yes oriented to person, Yes oriented to place and Yes oriented to time Skin: COMMON NORMALS: no rashes or lesions noted GENERAL SKIN EXAM: no rashes or lesions noted Course 2 Vital Signs: Vital signs: Vital Signs Temperature 98.1 F 11/06/23 13:14 Pulse Rate 86 11/06/23 13:19 Respiratory Rate 18 11/06/23 13:19 Blood Pressure 163/103 11/06/23 13:19 Pulse Oximetry 94 11/06/23 13:19 Oxygen Delivery Me thod Room Air 11/06/23 13:19 MDM - General Adult Medical Decision Making Patient has reported multiple times he feels much better after IV Zofran and Solu-Medrol. His vital signs are stable. He is drinking in the room without difficulty. He would like to go home at this time. Recommend he reach out to his oncology provider about further use of this medication. Suspect adverse/unwanted side effects versus actual allergic reaction. He does have Zofran at home that he can try to pretreat to try to cut down on the nausea associated with this medication. Return to ED precautions given. Medical Records I reviewed the patient's medical records. Lab Data I reviewed the patient's lab results. 11/06/23 13:38 11/06/23 13:38 Radiology Impressions Chest X-Ray 11/06/23 13:24 Impression: Atherosclerosis and hyperinflation. Laboratory Results WBC 4.57 10^3/uL (3.29-11.43) 11/06/23 13:38 RBC 3.58 10^6/uL (3.85-5.65) L 11/06/23 13:38 Hgb 11.30 g/dL (11.27-16.99) 11/06/23 13:38 Hct 34.7 % (37-53) L 11/06/23 13:38 MCV 96.9 fl (82-101) 11/06/23 13:38 MCH 31.6 pg (27-33) 11/06/23 13:38 MCHC 32.6 g/dL (30-55) 11/06/23 13:38 RDW 12.9 % (12.1-15.1) 11/06/23 13:38 Plt Count 246 10^3/cmm (157-399) 11/06/23 13:38 MPV 10.1 fL (7.4-10.4) 11/06/23 13:38 Neut % (Auto) 85.6 % 11/06/23 13:38 Lymph % (Auto) 9.6 % 11/06/23 13:38 [place] % (Auto) 3.9 % 11/06/23 13:38 Eos % (Auto) 0.0 % 11/06/23 13:38 Baso % (Auto) 0.2 % 11/06/23 13:38 Neut # (Auto) 3.91 10^3/uL (1.8-7.7) 11/06/23 13:38 Lymph # (Auto) 0.4 10^3/uL (0.8-4.8) L 11/06/23 13:38 [place] # (Auto) 0.2 10^3/uL (0.2-0.9) 11/06/23 13:38 Eos # (Auto) 0.0 10^3/uL (0.0-0.8) 11/06/23 13:38 Baso # (Auto) 0.0 10^3/uL (0.0-0.1) 11/06/23 13:38 Nucleated RBC % (auto) 0 % 11/06/23 13:38 Nucleated RBCs # 0.0 /100WBC 11/06/23 13:38 Sodium 136 mmol/L (136-145) 11/06/23 13:38 Potassium 3.9 mmol/L (3.5-5.1) 11/06/23 13:38 Chloride 102 mmol/L (98-107) 11/06/23 13:38 Carbon Dioxide 19 mmol/L (22-29) L 11/06/23 13:38 Anion Gap 18.9 (5-19) 11/06/23 13:38 BUN 15 mg/dL (8-23) 11/06/23 13:38 Creatinine 1.0 mg/dL (0.7-1.2) 11/06/23 13:38 GFR Calculation Not Reportable 11/06/23 13:38 Glucose 261 mg/dL (65-115) H 11/06/23 13:38 Calculated Osmolality 292 mOsm/kg (285-295) 11/06/23 13:38 Calcium 8.9 mg/dL (8.5-10.5) 11/06/23 13:38 Total Bilirubin 0.2 mg/dL (0.15-1.2) 11/06/23 13:38 AST 14 U/L (0-40) 11/06/23 13:38 ALT 16 U/L (0-41) 11/06/23 13:38 Alkaline Phosphatase 91 U/L (40-130) 11/06/23 13:38 Total Protein 7.3 g/dL (6.6-8.7) 11/06/23 13:38 Albumin 3.8 g/dL (3.5-5.2) 11/06/23 13:38 Globulin 3.5 g/dL (1.3-4.6) 11/06/23 13:38 All radiology interpretation(s) finalized by discharge Discharge Plan Discharge Patient Disposition: Home Clinical Impression: Adverse reaction to antineoplastic drug Qualifiers: Encounter type: initial encounter Qualified Code(s): T45.1X5A - Adverse effect of antineoplastic and immunosuppressive drugs, initial encounter Condition: Stable Prescriptions: No Action aspirin 81 mg tablet,delayed release (DR/EC) 81 mg PO DAILY finasteride 5 mg tablet 5 mg PO QPM lorazepam 1 mg tablet 0.5 - 1 mg sublingual Q6H PRN (Reason: Severe nausea) Qty: 30 3RF levothyroxine 175 mcg tablet See Rx Instructions .ROUTE .COMPLEX Dose Instruction: TAKE 1 TABLET BY MOUTH EVERY DAY thursday through thursday. take 1/2 tablet BY MOUTH ON thursday, SKIP thursday Rx Instructions: TAKE 1 TABLET BY MOUTH EVERY DAY Thursday through thursday. take 1/2 tablet BY MOUTH ON thursday, SKIP thursday (DME) nebulizer with tubing See Rx Instructions .ROUTE .MEDSUPPLY Qty: 1 0RF Rx Instructions: As directed ipratropium-albuterol 0.5 mg-3 mg(2.5 mg base)/3 mL solution for nebulization 3 ml inhalation Q6H PRN (Reason: wheezing) Qty: 90 0RF (DME) Walker See Rx Instructions .ROUTE .MEDSUPPLY Qty: 1 0RF Rx Instructions: As directed PreserVision AREDS 2 Plus MV 200 mcg-15 mcg- 5 mg-1 mg capsule 1 cap PO DAILY acetaminophen 500 mg capsule 1,000 mg PO Q6H PRN (Reason: Pain) triamcinolone acetonide [Nasacort Allergy] 55 mcg aerosol,spray 2 spray intranasal DAILY Qty: 16.9 2RF Rx Instructions: administer into each nostril calcium citrate 250 mg calcium tablet 250 mg PO DAILY Qty: 90 1RF cholecalciferol (vitamin D3) 50 mcg (2,000 unit) capsule 50 mcg PO DAILY Qty: 90 1RF metoclopramide HCl 5 mg tablet See Rx Instructions .ROUTE .COMPLEX Qty: 90 1RF Dose Instruction: TAKE 1 TABLET BY MOUTH THREE TIMES DAILY Rx Instructions: TAKE 1 TABLET BY MOUTH THREE TIMES DAILY trazodone 100 mg tablet 100 mg PO DAILY Qty: 90 2RF Trelegy Ellipta 100-62.5-25 mcg blister with device 1 ea INHALATION DAILY Qty: 60 5RF sucralfate [Carafate] 1 gram tablet 1 g PO Q6H Qty: 60 5RF fluconazole 100 mg tablet 100 mg PO DAILY Qty: 14 0RF ondansetron HCl 8 mg tablet 8 mg PO Q8H PRN (Reason: nausea and vomiting) Qty: 30 1RF (DME) catheter bags See Rx Instructions .Route .MEDSUPPLY Qty: 4 5RF Rx Instructions: As directed nitroglycerin [Nitrostat] 0.4 mg tablet, sublingual 0.4 mg SUBLINGUAL Q5M PRN (Reason: Chest Pain) Qty: 30 1RF (DME) RSV vaccine See Rx Instructions .Route .MEDSUPPLY Qty: 1 0RF Rx Instructions: As directed Eliquis 5 mg tablet 5 mg PO BID Qty: 180 1RF carbamazepine 100 mg tablet extended release 12 hr See Rx Instructions .ROUTE .COMPLEX Qty: 60 3RF Dose Instruction: TAKE 1 TABLET BY MOUTH TWICE DAILY Rx Instructions: TAKE 1 TABLET BY MOUTH TWICE DAILY montelukast 10 mg tablet See Rx Instructions .ROUTE .COMPLEX Qty: 90 2RF Dose Instruction: TAKE 1 TABLET BY MOUTH EVERY DAY Rx Instructions: TAKE 1 TABLET BY MOUTH EVERY DAY tamsulosin 0.4 mg capsule 0.4 mg PO QPM Qty: 90 1RF morphine 15 mg tablet 15 mg PO Q6H PRN (Reason: pain) 30 Days Qty: 120 0RF rosuvastatin 40 mg tablet 40 mg PO BEDTIME Qty: 60 1RF dronabinol 5 mg capsule 5 mg PO BID Qty: 60 0RF Rx Instructions: administer before lunch and evening meal/dinner famotidine 20 mg tablet 20 mg PO BID Qty: 60 2RF enzalutamide 80 mg tablet 160 mg PO DAILY Qty: 60 0RF glipizide 2.5 mg tablet extended release 24hr 2.5 mg PO QAM Claritin 10 mg Tablet 10 mg PO QPM Probiotic 3 billion cell Capsule 3,000 mmu cells PO DAILY Rx Instructions: administer with a meal metoprolol succinate 25 mg tablet extended release 24 hr 25 mg PO QAM Januvia 100 mg tablet 100 mg PO QAM levofloxacin 500 mg tablet 500 mg PO DAILY 7 Days Qty: 7 0RF prednisone 50 mg tablet 50 mg PO DAILY Qty: 5 0RF Discharge Orders: Discharge ED (Routine); Ordered 11/06/23 Ordered By: Marilia Shay Referrals: Jose Thomason MD [Primary Care Provider] - Activity Restrictions/Additional Instructions: You have indicated you are feeling much better and would like to be discharged at this time. You may return to the emergency department for any new or worsening or concerning symptoms. Please reach out to your oncologist to discuss further use of this medication. You may also try to premedicate at home with your Zofran to see if this cuts down on the nausea/dry heaving which can be associated with this medication. Coding Level of Care Code ED Orthodontist Assistant for Gale Callahan
--- NOTE | 2023-11-06 13:24 | XR_ITS ---
WS: [id number] Portable AP upright chest, 11/06/2023 Clinical Data: sob Comparison: Portable chest, 11/03/2023 Findings: No nodules, masses or effusions are seen. The heart is normal. The pulmonary vascularity is not increased. No pneumonia or pneumothorax is seen. The aortic arch and descending thoracic aorta s how calcification of the and tortuosity. The diaphragms are flattened. Monitor leads are on the chest wall. XR/XR chest 1V portable [id number] Impression: Atherosclerosis and hyperinflation.
[2023-11-06] MEDS: ondansetron 2 mg/ML SDV 2 mL 4 MG IVP (13:29)
[2023-11-06] MEDS: methylPREDNISolone sod succ 125 mg/2 mL INJ IVP (13:29)
[2023-11-06 13:43] LABS: Basophils % 0.2 %; Hematocrit 34.7 % (37-53); Lymphocytes # 0.4 10^3/uL (0.8-4.8); Lymphocytes % 9.6 %; Mean Corpuscular HGB Conc 32.6 g/dL (30-55); Mean Corpuscular Hemoglobin 31.6 pg (27-33); Mean Corpuscular Volume 96.9 fl (82-101); Mean Platelet Volume 10.1 fL (7.4-10.4); Monocytes # 0.2 10^3/uL (0.2-0.9); Monocytes % 3.9 %; Neutrophils # 3.91 10^3/uL (1.8-7.7); Neutrophils % 85.6 %; Nucleated Red Blood Cells % 0 %; Platelet Count 246 10^3/cmm (157-399); Red Blood Count 3.58 10^6/uL (3.85-5.65); Red Cell Distribution Width 12.9 % (12.1-15.1); White Blood Count 4.57 10^3/uL (3.29-11.43)
[2023-11-06 14:01] LABS: Alanine Aminotransferase 16 U/L (0-41); Albumin Level 3.8 g/dL (3.5-5.2); Alkaline Phosphatase 91 U/L (40-130); Anion Gap 18.9 (5-19); Aspartate Amino Transferase 14 U/L (0-40); Blood Urea Nitrogen 15 mg/dL (8-23); Calcium 8.9 mg/dL (8.5-10.5); Carbon Dioxide 19 mmol/L (22-29); Chloride 102 mmol/L (98-107); Creatinine Clr Calc Pharmacy 83.6552; Globulin 3.5 g/dL (1.3-4.6); Glucose 261 mg/dL (65-115); Osmolality Calculated 292 mOsm/kg (285-295); Potassium 3.9 mmol/L (3.5-5.1); Sodium 136 mmol/L (136-145); Total Bilirubin 0.2 mg/dL (0.15-1.2); Total Protein 7.3 g/dL (6.6-8.7)
[2023-11-06 14:29] VITALS: BP 153/90; RESP 16; O2SAT 95
[2023-11-06 14:30] VITALS: BP 153/90; PULSE 82; O2SAT 94
--- NOTE | 2023-11-06 14:32 | PC.NURSE ---
iv d/c'd at time of d/c. no complications.
== END 2023-11-06 14:32 | disposition home or self-care (01) ==
PROVIDERS: Emergency Provider Physician Assistant; PCP Family Medicine
DX: R42 Dizziness and giddiness (principal); T45.1X5A Adverse effect of antineoplastic and immunosuppressive drugs, initial encounter; Z79.82 Long term (current) use of aspirin; Z79.01 Long term (current) use of anticoagulants; Z79.84 Long term (current) use of oral hypoglycemic drugs; Z87.891 Personal history of nicotine dependence; E78.5 Hyperlipidemia, unspecified; E11.9 Type 2 diabetes mellitus without complications; I10 Essential (primary) hypertension; J44.9 Chronic obstructive pulmonary disease, unspecified; Z85.46 Personal history of malignant neoplasm of prostate; Z85.850 Personal history of malignant neoplasm of thyroid
CPT/HCPCS: 36415; 71045; 80053; 85025; 96374; 96375; 99284; J2405; J2919

== ENCOUNTER 2023-11-16 14:01 | Outpatient (CLI) | payer MEDICARE, MEDICAID, SELFPAY ==
[2023-11-16 15:31] LABS: Free T4 Free Thyroxine 1.43 ng/dL (0.82-1.77); Thyroid Stimulating Hormone 0.59 uIU/mL (0.27-4.20)
== END 2023-11-16 14:02 | disposition home or self-care (01) ==
LOC: LAB 14:03
PROVIDERS: PCP Family Medicine; Visit Provider Internal Medicine
DX: E89.0 Postprocedural hypothyroidism (principal)
CPT/HCPCS: 36415; 84439; 84443

== ENCOUNTER → 2023-11-20 09:39 | Outpatient (BNVA) | payer MEDICARE, MEDICAID, SELFPAY | PROVIDERS: PCP Family Medicine; Visit Provider Internal Medicine | DX: C73 Malignant neoplasm of thyroid gland (principal); E89.0 Postprocedural hypothyroidism; C61 Malignant neoplasm of prostate; Z79.890 Hormone replacement therapy | CPT/HCPCS: 99214 ==

== ENCOUNTER 2023-12-04 09:24 | Oncology outpatient (recurring) (ONCR) | payer MEDICARE, MEDICAID, SELFPAY ==
[2023-12-04 10:05] LABS: Basophils % 0.9 %; Eosinophils # 0.1 10^3/uL (0.0-0.8); Hematocrit 39.6 % (37-53); Lymphocytes # 0.7 10^3/uL (0.8-4.8); Lymphocytes % 20.7 %; Mean Corpuscular HGB Conc 32.1 g/dL (30-55); Mean Corpuscular Hemoglobin 31.5 pg (27-33); Mean Corpuscular Volume 98.3 fl (82-101); Mean Platelet Volume 9.8 fL (7.4-10.4); Monocytes # 0.6 10^3/uL (0.2-0.9); Monocytes % 16.2 %; Neutrophils % 59.6 %; Nucleated Red Blood Cells % 0 %; Platelet Count 199 10^3/cmm (157-399); Red Blood Count 4.03 10^6/uL (3.85-5.65); Red Cell Distribution Width 12.9 % (12.1-15.1); White Blood Count 3.52 10^3/uL (3.29-11.43)
[2023-12-04 10:27] LABS: Alanine Aminotransferase 6 U/L (0-41); Albumin Level 3.6 g/dL (3.5-5.2); Alkaline Phosphatase 87 U/L (40-130); Anion Gap 13.3 (5-19); Aspartate Amino Transferase 12 U/L (0-40); Blood Urea Nitrogen 8 mg/dL (8-23); Calcium 8.5 mg/dL (8.5-10.5); Carbon Dioxide 28 mmol/L (22-29); Chloride 100 mmol/L (98-107); Creatinine Clr Calc Pharmacy 101.8837; Globulin 3.3 g/dL (1.3-4.6); Glucose 170 mg/dL (65-115); Osmolality Calculated 286 mOsm/kg (285-295); Potassium 4.3 mmol/L (3.5-5.1); Sodium 137 mmol/L (136-145); Total Bilirubin 0.3 mg/dL (0.15-1.2); Total Protein 6.9 g/dL (6.6-8.7)
== END 2023-12-10 23:59 | disposition home or self-care (01) ==
PROVIDERS: PCP Family Medicine; Visit Provider Internal Medicine Medical Oncology
DX: C79.51 Secondary malignant neoplasm of bone (principal); C61 Malignant neoplasm of prostate; C77.2 Secondary and unspecified malignant neoplasm of intra-abdominal lymph nodes; Z79.52 Long term (current) use of systemic steroids; Z79.818 Long term (current) use of other agents affecting estrogen receptors and estrogen levels; Z53.9 Procedure and treatment not carried out, unspecified reason; Z79.899 Other long term (current) drug therapy; Z51.11 Encounter for antineoplastic chemotherapy
CPT/HCPCS: 36415; 80053; 84153; 85025; 99214

== ENCOUNTER → 2023-12-15 11:34 | Outpatient (BNVA) | payer MEDICARE, MEDICAID, SELFPAY | PROVIDERS: PCP Family Medicine; Visit Provider Family Medicine | DX: E11.9 Type 2 diabetes mellitus without complications (principal) | CPT/HCPCS: 80048; 83036 ==

== ENCOUNTER 2023-12-27 15:50 | Emergency (ER) | payer MEDICARE, MEDICAID, SELFPAY ==
[2023-12-27 16:10] VITALS: BP 130/70; PULSE 78; RESP 18; TEMP 36.4; O2SAT 95
[2023-12-27 16:31] LABS: Basophils % 0.6 %; Eosinophils % 0.6 %; Lymphocytes % 27.9 %; Mean Corpuscular Hemoglobin 31.3 pg (27-33); Mean Corpuscular Volume 94.9 fl (82-101); Mean Platelet Volume 10.2 fL (7.4-10.4); Monocytes # 0.5 10^3/uL (0.2-0.9); Monocytes % 15.8 %; Neutrophils # 1.87 10^3/uL (1.8-7.7); Neutrophils % 54.8 %; Nucleated Red Blood Cells % 0 %; Platelet Count 220 10^3/cmm (157-399); Red Cell Distribution Width 13.9 % (12.1-15.1); White Blood Count 3.41 10^3/uL (3.29-11.43)
--- NOTE | 2023-12-27 16:41 | CTR_ITS ---
PROCEDURE INFORMATION: Exam: CT Abdomen And Pelvis With Contrast Exam date and time: 12/27/2023 5:23 PM Age: 78 years old Clinical indication: Abdominal pain; Generalized; Additional info: Abd pain TECHNIQUE: Imaging protocol: Computed tomography of the abdomen and pelvis with contrast. Radiation optimization: All CT scans at this facility use at least one of these dose optimization techniques: automated exposure control; mA and/or kV adjustment per patient size (includes targeted exams where dose is matched to clinical indication); or iterative reconstruction. Contrast material: OMNI 350; Contrast volume: 100 ml; Contrast route: INTRAVENOUS (IV); COMPARISON: CT kidney stone [id number] 09/19/2023 7:02 PM RADIATION DOSE METRICS: Total DLP (mGy-cm): 969.91 FINDINGS: Lungs: Calcified granuloma in the left lower lobe. Liver: Normal. No mass. Gallbladder and biliary ducts: Normal. No calcified stones. No ductal dilation. Pancreas: Small pancreatic calcifications present. Spleen: Normal. No splenomegaly. Adrenal glands: Normal. No mass. Kidneys and ureters: Bilateral renal cysts, larger and more numerous on the left. Nonobstructing left renal calculus. Stomach and bowel: Diverticulosis without evidence of diverticulitis. Appendix: No evidence of appendicitis. Intraperitoneal space: Unremarkable. No free air. No significant fluid collection. Vasculature: Unremarkable. No abdominal aortic aneurysm. Lymph nodes: Unremarkable. No enlarged lymph nodes. Urinary bladder: The urinary bladder is collapsed around a suprapubic catheter. Reproductive: Unremarkable as visualized. Bones/joints: Unremarkable. No acute fracture. Soft tissues: Unremarkable. CT/CT abdomen pelvis w con* [id number] IMPRESSION: No acute subdiaphragmatic pathology.
[2023-12-27 16:42] LABS: Alanine Aminotransferase < 5 U/L (0-41); Albumin Level 3.7 g/dL (3.5-5.2); Alkaline Phosphatase 65 U/L (40-130); Anion Gap 12.8 (5-19); Aspartate Amino Transferase 11 U/L (0-40); Blood Urea Nitrogen 12 mg/dL (8-23); Calcium 9.2 mg/dL (8.5-10.5); Carbon Dioxide 24 mmol/L (22-29); Chloride 107 mmol/L (98-107); Globulin 3.3 g/dL (1.3-4.6); Glucose 112 mg/dL (65-115); Lipase 24 U/L (13-60); Osmolality Calculated 291 mOsm/kg (285-295); Potassium 3.8 mmol/L (3.5-5.1); Sodium 140 mmol/L (136-145); Total Bilirubin 0.3 mg/dL (0.15-1.2)
--- NOTE | 2023-12-27 16:43 | W.ED.ABDPA2 ---
Documented by User: Vale Mcguire MD 12/27/23 17:36 HPI - Abdominal Pain General: Chief Complaint: Abdominal Pain Stated Complaint: n/v/d , abd pain Time Seen by Provider: 12/27/23 16:35 Source: patient Mode of arrival: ambulatory Limitations: no limitations History of Present Illness: 78-year-old male states that he has been having abdominal pain with nausea and vomiting for the last 3 to 4 days. He has a history of prostate cancer he states he is felt weak and feels like he is getting dehydrated states the pain is diffuse rates it a 4 out of 10 denies any worsening improving factors. Associated Symptoms: Reports nausea and vomiting; Denies chills, diarrhea, dysuria and fever(s) Related Data Home Medications Medication Instructions Recorded Confirmed aspirin 81 mg tablet,delayed 81 mg PO DAILY 03/29/19 12/25/23 release mv-mn-folic 200 mcg-vit K 15 1 cap PO DAILY 04/09/23 12/25/23 mcg-lutein 5 mg-zeaxanthin 1 mg capsule (PreserVision AREDS 2 Plus Multivit) finasteride 5 mg tablet 5 mg PO QPM 05/20/23 12/25/23 acetaminophen 500 mg capsule 1,000 mg PO Q6H PRN Pain 07/02/23 12/25/23 glipizide 2.5 mg tablet, extended 2.5 mg PO QAM 07/31/23 12/25/23 release 24 hr lactobacillus combination no.4 3 3,000 mmu cells PO DAILY 07/31/23 12/25/23 billion cell capsule (Probiotic) loratadine 10 mg tablet (Claritin) 10 mg PO QPM 07/31/23 12/25/23 levothyroxine 175 mcg tablet See Rx Instructions .Route .COMPLEX 10/26/23 12/25/23 megestrol 400 mg/10 mL (10 mL) 400 mg PO DAILY 12/04/23 12/25/23 oral suspension prochlorperazine maleate 10 mg 10 mg PO Q4H PRN 12/04/23 12/25/23 tablet triamcinolone acetonide 55 mcg 2 spray intranasal DAILY 12/04/23 12/25/23 nasal spray aerosol Previous Rx's Medication Instructions Recorded nitroglycerin 0.4 mg sublingual 0.4 mg sublingual Q5M PRN Chest 07/21/22 tablet (Nitrostat) Pain #30 tabs Walker #1 ea 07/28/22 lorazepam 1 mg tablet 0.5 - 1 mg (0.5 - 1 x 1 mg) 05/27/23 sublingual Q6H PRN Severe nausea #30 tabs apixaban 5 mg tablet (Eliquis) 5 mg PO BID #180 tabs 08/03/23 fluconazole 100 mg tablet 100 mg PO DAILY #14 tabs 08/24/23 montelukast 10 mg tablet See Rx Instructions .Route 08/25/23 .COMPLEX #90 tabs tamsulosin 0.4 mg capsule 0.4 mg PO QPM #90 caps 09/30/23 rosuvastatin 40 mg tablet 40 mg PO BEDTIME #60 tabs 10/05/23 catheter bags #4 ea 10/08/23 calcium citrate 250 mg PO DAILY #90 tabs 10/13/23 cholecalciferol (vitamin D3) 50 50 mcg PO DAILY #90 caps 10/13/23 mcg (2,000 unit) capsule fluticasone fur. 100 mcg-umeclid 1 ea inhalation DAILY #60 ea 10/13/23 62.5 mcg-vilant 25 mcg inhalat.powder (Trelegy Ellipta) trazodone 100 mg tablet 100 mg PO DAILY #90 tabs 10/13/23 dronabinol 5 mg capsule 5 mg PO BID #60 caps 10/19/23 ipratropium 0.5 mg-albuterol 3 mg 3 ml inhalation Q6H PRN wheezing 11/06/23 (2.5 mg base)/3 mL nebulization #90 mL soln nebulizer with tubing #1 ea 11/06/23 azelastine 137 mcg (0.1 %) nasal 2 spray intranasal BID #30 mL 11/18/23 spray omeprazole 40 mg capsule,delayed 40 mg PO DAILY #30 caps 11/18/23 release metoprolol succinate 25 mg 25 mg PO QAM #90 tabs 12/08/23 tablet,extended release 24 hr sitagliptin phosphate 100 mg 100 mg PO QAM #90 tabs 12/08/23 tablet (Januvia) morphine 15 mg immediate release 15 mg PO Q6H PRN pain 30 days #120 12/09/23 tablet tabs carbamazepine 100 mg See Rx Instructions .Route 12/18/23 tablet,extended release,12 hr .COMPLEX #60 tabs metoclopramide HCl 5 mg tablet See Rx Instructions .Route 12/18/23 .COMPLEX #90 tabs ondansetron HCl 8 mg tablet 8 mg PO Q8H PRN nausea and 12/21/23 vomiting #30 tabs enzalutamide 80 mg tablet (Xtandi) 160 mg (2 x 80 mg) PO DAILY #60 12/24/23 tabs levofloxacin 500 mg tablet 500 mg PO DAILY 7 days #7 tabs 12/25/23 Allergies Allergy/AdvReac Type Severity Reaction Status Date / Time vancomycin Allergy HIVES,RASH Verified 12/27/23 16:13 Review of Systems Const: Denies: fever(s), chills, body aches or change in appetite ENMT: Denies: throat pain or dental pain Card: Denies: chest pain Resp: Denies: dyspnea GI: Reports: abdominal pain, nausea and vomiting; Denies: diarrhea : Denies: dysuria Musc: Denies: neck pain or back pain Skin/Breast: Denies: rash Neuro: Denies: headache(s) PFSH ED PFSH: Medical History Nausea & vomiting Weight loss Lower urinary tract symptoms (LUTS) Cancer related pain Urinary tract infection Right kidney mass Burning sensation of feet Lumbar stenosis with neurogenic claudication Intervertebral disc disorder with radiculopathy of lumbosacral region Metastasis to bone Dyslipidemia History of diverticulitis Type 2 diabetes mellitus, without long-term current use of insulin Benign essential HTN Post-surgical hypothyroidism Insomnia GERD (gastroesophageal reflux disease) COPD (chronic obstructive pulmonary disease) 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 Other CAD (coronary artery disease) Social History Smoking and tobacco/nicotine status: former use of tobacco/nicotine Quit status (tobacco/nicotine): has quit using Year quit tobacco: 2022 Former quit date comment: stopped in February of this year Alcohol intake: never Substance/Drug Use: never Lives independently: Yes Household members: spouse Marital status: Current occupational status: retired Physical Exam Const: COMMON NORMALS: patient oriented x3 HENMT: COMMON NORMALS: normocephalic and atraumatic HEAD & SCALP: normocephalic and atraumatic Eye: COMMON NORMALS: Equal, round and reactive pupils present and EOMs intact bilaterally PUPIL: Yes Equal, round and reactive pupils present Neck/C-Spine: COMMON NORMALS: full ROM and supple Chest: COMMONS NORMALS: normal inspection of the chest and normal palpation of entire chest wall Resp: COMMON NORMALS: normal respiratory effort, No retractions, No use of accessory muscles and clear to auscultation bilaterally AUSCULTATION: clear to auscultation bilaterally Cardio: COMMON NORMALS: regular rate, regular rhythm and No murmurs present (Cardio) RATE: regular rate RHYTHM: regular rhythm GI: COMMON NORMALS: Normal to inspection, nondistended, normoactive bowel sounds present, Soft to palpation, non-tender and no masses PALPATION: Yes Soft to palpation Extremity: COMMON NORMALS: normal to inspection and full ROM Neuro: COMMON NORMALS: patient oriented x3, moves all extremities and no focal motor deficits Psych: COMMON NORMALS: mental status grossly normal, Normal thought process present and cooperative THOUGHT PROCESS: Normal thought process present Skin: COMMON NORMALS: no rashes or lesions noted and no wounds GENERAL SKIN EXAM: no rashes or lesions noted Course Vital Signs: Vital signs: Vital Signs Temperature 97.6 F 12/27/23 16:10 Pulse Rate 74 12/27/23 19:36 Respiratory Rate 17 12/27/23 18:37 Blood Pressure 145/85 12/27/23 19:36 Pulse Oximetry 94 12/27/23 19:36 Oxygen Delivery Me thod Room Air 12/27/23 17:10 MDM - Abdominal Pain Medical Decision Making Patient presents here with abdominal pain patient is pending CT scan care turned over to Dr. Darling Medical Records I reviewed the patient's medical records. Lab Data I reviewed the patient's lab results. 12/27/23 16:20 12/27/23 16:20 Labs/Radiology: Radiology Impressions Abdomen/Pelvis CT 12/27/23 16:41 IMPRESSION: No acute subdiaphragmatic pathology. Laboratory Results WBC 3.41 10^3/uL (3.29-11.43) 12/27/23 16:20 RBC 3.90 10^6/uL (3.85-5.65) 12/27/23 16:20 Hgb 12.20 g/dL (11.27-16.99) 12/27/23 16:20 Hct 37.0 % (37-53) 12/27/23 16:20 MCV 94.9 fl (82-101) 12/27/23 16:20 MCH 31.3 pg (27-33) 12/27/23 16:20 MCHC 33.0 g/dL (30-55) 12/27/23 16:20 RDW 13.9 % (12.1-15.1) 12/27/23 16:20 Plt Count 220 10^3/cmm (157-399) 12/27/23 16:20 MPV 10.2 fL (7.4-10.4) 12/27/23 16:20 Neut % (Auto) 54.8 % 12/27/23 16:20 Lymph % (Auto) 27.9 % 12/27/23 16:20 [place] % (Auto) 15.8 % 12/27/23 16:20 Eos % (Auto) 0.6 % 12/27/23 16:20 Baso % (Auto) 0.6 % 12/27/23 16:20 Neut # (Auto) 1.87 10^3/uL (1.8-7.7) 12/27/23 16:20 Lymph # (Auto) 1.0 10^3/uL (0.8-4.8) 12/27/23 16:20 [place] # (Auto) 0.5 10^3/uL (0.2-0.9) 12/27/23 16:20 Eos # (Auto) 0.0 10^3/uL (0.0-0.8) 12/27/23 16:20 Baso # (Auto) 0.0 10^3/uL (0.0-0.1) 12/27/23 16:20 Nucleated RBC % (auto) 0 % 12/27/23 16:20 Nucleated RBCs # 0.0 /100WBC 12/27/23 16:20 Sodium 140 mmol/L (136-145) 12/27/23 16:20 Potassium 3.8 mmol/L (3.5-5.1) 12/27/23 16:20 Chloride 107 mmol/L (98-107) 12/27/23 16:20 Carbon Dioxide 24 mmol/L (22-29) 12/27/23 16:20 Anion Gap 12.8 (5-19) 12/27/23 16:20 BUN 12 mg/dL (8-23) 12/27/23 16:20 Creatinine 1.0 mg/dL (0.7-1.2) 12/27/23 16:20 GFR Calculation Not Reportable 12/27/23 16:20 Glucose 112 mg/dL (65-115) 12/27/23 16:20 Calculated Osmolality 291 mOsm/kg (285-295) 12/27/23 16:20 Calcium 9.2 mg/dL (8.5-10.5) 12/27/23 16:20 Total Bilirubin 0.3 mg/dL (0.15-1.2) 12/27/23 16:20 AST 11 U/L (0-40) 12/27/23 16:20 ALT < 5 U/L (0-41) 12/27/23 16:20 Alkaline Phosphatase 65 U/L (40-130) 12/27/23 16:20 Total Protein 7.0 g/dL (6.6-8.7) 12/27/23 16:20 Albumin 3.7 g/dL (3.5-5.2) 12/27/23 16:20 Globulin 3.3 g/dL (1.3-4.6) 12/27/23 16:20 Lipase 24 U/L (13-60) 12/27/23 16:20 All radiology interpretation(s) finalized by discharge Discharge Plan Discharge Patient Disposition: Home Clinical Impression: Chemotherapy-induced nausea and vomiting Condition: Stable Prescriptions: No Action aspirin 81 mg tablet,delayed release (DR/EC) 81 mg PO DAILY finasteride 5 mg tablet 5 mg PO QPM lorazepam 1 mg tablet 0.5 - 1 mg sublingual Q6H PRN (Reason: Severe nausea) Qty: 30 3RF levothyroxine 175 mcg tablet See Rx Instructions .ROUTE .COMPLEX Dose Instruction: TAKE 1 TABLET BY MOUTH EVERY DAY thursday through thursday. take 1/2 tablet BY MOUTH ON thursday, SKIP thursday Rx Instructions: TAKE 1 TABLET BY MOUTH EVERY DAY Thursday through thursday. take 1/2 tablet BY MOUTH ON thursday, SKIP thursday megestrol 400 mg/10 mL (10 mL) suspension 400 mg PO DAILY prochlorperazine maleate 10 mg tablet 10 mg PO Q4H PRN triamcinolone acetonide 55 mcg aerosol,spray 2 spray intranasal DAILY Rx Instructions: administer into each nostril (DME) nebulizer with tubing See Rx Instructions .Route .MEDSUPPLY Qty: 1 0RF Rx Instructions: As directed ipratropium-albuterol 0.5 mg-3 mg(2.5 mg base)/3 mL solution for nebulization 3 ml inhalation Q6H PRN (Reason: wheezing) Qty: 90 0RF levofloxacin 500 mg tablet 500 mg PO DAILY 7 Days Qty: 7 0RF (DME) Walker See Rx Instructions .ROUTE .MEDSUPPLY Qty: 1 0RF Rx Instructions: As directed PreserVision AREDS 2 Plus MV 200 mcg-15 mcg- 5 mg-1 mg capsule 1 cap PO DAILY acetaminophen 500 mg capsule 1,000 mg PO Q6H PRN (Reason: Pain) calcium citrate 250 mg calcium tablet 250 mg PO DAILY Qty: 90 1RF cholecalciferol (vitamin D3) 50 mcg (2,000 unit) capsule 50 mcg PO DAILY Qty: 90 1RF trazodone 100 mg tablet 100 mg PO DAILY Qty: 90 2RF Trelegy Ellipta 100-62.5-25 mcg blister with device 1 ea INHALATION DAILY Qty: 60 5RF fluconazole 100 mg tablet 100 mg PO DAILY Qty: 14 0RF (DME) catheter bags See Rx Instructions .Route .MEDSUPPLY Qty: 4 5RF Rx Instructions: As directed nitroglycerin [Nitrostat] 0.4 mg tablet, sublingual 0.4 mg SUBLINGUAL Q5M PRN (Reason: Chest Pain) Qty: 30 1RF Eliquis 5 mg tablet 5 mg PO BID Qty: 180 1RF montelukast 10 mg tablet See Rx Instructions .ROUTE .COMPLEX Qty: 90 2RF Dose Instruction: TAKE 1 TABLET BY MOUTH EVERY DAY Rx Instructions: TAKE 1 TABLET BY MOUTH EVERY DAY tamsulosin 0.4 mg capsule 0.4 mg PO QPM Qty: 90 1RF rosuvastatin 40 mg tablet 40 mg PO BEDTIME Qty: 60 1RF dronabinol 5 mg capsule 5 mg PO BID Qty: 60 0RF Rx Instructions: administer before lunch and evening meal/dinner azelastine 137 mcg (0.1 %) spray,non-aerosol 2 spray intranasal BID Qty: 30 1RF Rx Instructions: administer into each nostril omeprazole 40 mg capsule,delayed release(DR/EC) 40 mg PO DAILY Qty: 30 1RF metoprolol succinate 25 mg tablet extended release 24 hr 25 mg PO QAM Qty: 90 0RF Januvia 100 mg tablet 100 mg PO QAM Qty: 90 0RF morphine 15 mg tablet 15 mg PO Q6H PRN (Reason: pain) 30 Days Qty: 120 0RF carbamazepine 100 mg tablet extended release 12 hr See Rx Instructions .ROUTE .COMPLEX Qty: 60 3RF Dose Instruction: TAKE 1 TABLET BY MOUTH TWICE DAILY Rx Instructions: TAKE 1 TABLET BY MOUTH TWICE DAILY metoclopramide HCl 5 mg tablet See Rx Instructions .ROUTE .COMPLEX Qty: 90 1RF Dose Instruction: TAKE 1 TABLET BY MOUTH THREE TIMES DAILY Rx Instructions: TAKE 1 TABLET BY MOUTH THREE TIMES DAILY ondansetron HCl 8 mg tablet 8 mg PO Q8H PRN (Reason: nausea and vomiting) Qty: 30 1RF Xtandi 80 mg tablet 160 mg PO DAILY Qty: 60 0RF glipizide 2.5 mg tablet extended release 24hr 2.5 mg PO QAM loratadine [Claritin] 10 mg Tablet 10 mg PO QPM Probiotic 3 billion cell Capsule 3,000 mmu cells PO DAILY Rx Instructions: administer with a meal Discharge Orders: Discharge ED (Routine); Ordered 12/27/23 Ordered By: Jake Darling Referrals: Jose Thomason MD [Primary Care Provider] - Patient Instructions: Opioid Safety, Pain Management, Vomiting - Adult Activity Restrictions/Additional Instructions: Take your nausea medication scheduled every 4 hours while awake for the first 24 hours, then as needed. If you are still nauseated, you may take lorazepam with it. Follow a liquid diet for 24 hours and advance as tolerated. Return for fever, worsening pain, worsening vomiting despite the above, any other concerning symptoms. Call your doctor tomorrow and let them know you were seen here this weekend. Coding Level of Care Code ED Topology Teacher for Chg Fwd Documented by User: Jake Darling, DO 12/27/23 20:20 HPI - Abdominal Pain General: Chief Complaint: Abdominal Pain Stated Complaint: n/v/d , abd pain Time Seen by Provider: 12/27/23 16:35 Related Data Home Medications Medication Instructions Recorded Confirmed aspirin 81 mg tablet,delayed 81 mg PO DAILY 03/29/19 12/25/23 release mv-mn-folic 200 mcg-vit K 15 1 cap PO DAILY 04/09/23 12/25/23 mcg-lutein 5 mg-zeaxanthin 1 mg capsule (PreserVision AREDS 2 Plus Multivit) finasteride 5 mg tablet 5 mg PO QPM 05/20/23 12/25/23 acetaminophen 500 mg capsule 1,000 mg PO Q6H PRN Pain 07/02/23 12/25/23 glipizide 2.5 mg tablet, extended 2.5 mg PO QAM 07/31/23 12/25/23 release 24 hr lactobacillus combination no.4 3 3,000 mmu cells PO DAILY 07/31/23 12/25/23 billion cell capsule (Probiotic) loratadine 10 mg tablet (Claritin) 10 mg PO QPM 07/31/23 12/25/23 levothyroxine 175 mcg tablet See Rx Instructions .Route .COMPLEX 10/26/23 12/25/23 megestrol 400 mg/10 mL (10 mL) 400 mg PO DAILY 10/25/24 11/15/24 oral suspension prochlorperazine maleate 10 mg 10 mg PO Q4H PRN 12/04/23 12/25/23 tablet triamcinolone acetonide 55 mcg 2 spray intranasal DAILY 12/04/23 12/25/23 nasal spray aerosol Previous Rx's Medication Instructions Recorded nitroglycerin 0.4 mg sublingual 0.4 mg sublingual Q5M PRN Chest 07/21/22 tablet (Nitrostat) Pain #30 tabs Walker #1 ea 07/28/22 lorazepam 1 mg tablet 0.5 - 1 mg (0.5 - 1 x 1 mg) 05/27/23 sublingual Q6H PRN Severe nausea #30 tabs apixaban 5 mg tablet (Eliquis) 5 mg PO BID #180 tabs 08/03/23 fluconazole 100 mg tablet 100 mg PO DAILY #14 tabs 08/24/23 montelukast 10 mg tablet See Rx Instructions .Route 08/25/23 .COMPLEX #90 tabs tamsulosin 0.4 mg capsule 0.4 mg PO QPM #90 caps 09/30/23 rosuvastatin 40 mg tablet 40 mg PO BEDTIME #60 tabs 10/05/23 catheter bags #4 ea 10/08/23 calcium citrate 250 mg PO DAILY #90 tabs 10/13/23 cholecalciferol (vitamin D3) 50 50 mcg PO DAILY #90 caps 10/13/23 mcg (2,000 unit) capsule fluticasone fur. 100 mcg-umeclid 1 ea inhalation DAILY #60 ea 10/13/23 62.5 mcg-vilant 25 mcg inhalat.powder (Trelegy Ellipta) trazodone 100 mg tablet 100 mg PO DAILY #90 tabs 10/13/23 dronabinol 5 mg capsule 5 mg PO BID #60 caps 10/19/23 ipratropium 0.5 mg-albuterol 3 mg 3 ml inhalation Q6H PRN wheezing 11/06/23 (2.5 mg base)/3 mL nebulization #90 mL soln nebulizer with tubing #1 ea 11/06/23 azelastine 137 mcg (0.1 %) nasal 2 spray intranasal BID #30 mL 11/18/23 spray omeprazole 40 mg capsule,delayed 40 mg PO DAILY #30 caps 11/18/23 release metoprolol succinate 25 mg 25 mg PO QAM #90 tabs 12/08/23 tablet,extended release 24 hr sitagliptin phosphate 100 mg 100 mg PO QAM #90 tabs 12/08/23 tablet (Januvia) morphine 15 mg immediate release 15 mg PO Q6H PRN pain 30 days #120 12/09/23 tablet tabs carbamazepine 100 mg See Rx Instructions .Route 12/18/23 tablet,extended release,12 hr .COMPLEX #60 tabs metoclopramide HCl 5 mg tablet See Rx Instructions .Route 12/18/23 .COMPLEX #90 tabs ondansetron HCl 8 mg tablet 8 mg PO Q8H PRN nausea and 12/21/23 vomiting #30 tabs enzalutamide 80 mg tablet (Xtandi) 160 mg (2 x 80 mg) PO DAILY #60 12/24/23 tabs levofloxacin 500 mg tablet 500 mg PO DAILY 7 days #7 tabs 12/25/23 Allergies Allergy/AdvReac Type Severity Reaction Status Date / Time vancomycin Allergy HIVES,RASH Verified 12/27/23 16:13 PFSH ED PFSH: Medical History Nausea & vomiting Weight loss Lower urinary tract symptoms (LUTS) Cancer related pain Urinary tract infection Right kidney mass Burning sensation of feet Lumbar stenosis with neurogenic claudication Intervertebral disc disorder with radiculopathy of lumbosacral region Metastasis to bone Dyslipidemia History of diverticulitis Type 2 diabetes mellitus, without long-term current use of insulin Benign essential HTN Post-surgical hypothyroidism Insomnia GERD (gastroesophageal reflux disease) COPD (chronic obstructive pulmonary disease) 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 Other CAD (coronary artery disease) Social History Smoking and tobacco/nicotine status: former use of tobacco/nicotine Quit status (tobacco/nicotine): has quit using Year quit tobacco: 2022 Former quit date comment: stopped in February of this year Alcohol intake: never Substance/Drug Use: never Lives independently: Yes Household members: spouse Marital status: Current occupational status: retired Course Vital Signs: Vital signs: Vital Signs Temperature 97.6 F 12/27/23 16:10 Pulse Rate 74 12/27/23 19:36 Respiratory Rate 17 12/27/23 18:37 Blood Pressure 145/85 12/27/23 19:36 Pulse Oximetry 94 12/27/23 19:36 Oxygen Delivery Me thod Room Air 12/27/23 17:10 MDM - Abdominal Pain Medical Decision Making Patient presents here with abdominal pain patient is pending CT scan care turned over to Dr. Darling. Patient is feeling improved after IV fluid here. CBC and BMP are normal. Liver enzymes are normal. Lipase is normal. Urinalysis was not repeated, as the patient is on day 3 of antibiotics for urinary tract infection. CT is negative for any acute pathology. With improvement in his symptoms, he will be allowed discharge. Close outpatient follow-up. Lab Data 12/27/23 16:20 12/27/23 16:20 Labs/Radiology: Radiology Impressions Abdomen/Pelvis CT 12/27/23 16:41 IMPRESSION: No acute subdiaphragmatic pathology. Laboratory Results WBC 3.41 10^3/uL (3.29-11.43) 12/27/23 16:20 RBC 3.90 10^6/uL (3.85-5.65) 12/27/23 16:20 Hgb 12.20 g/dL (11.27-16.99) 12/27/23 16:20 Hct 37.0 % (37-53) 12/27/23 16:20 MCV 94.9 fl (82-101) 12/27/23 16:20 MCH 31.3 pg (27-33) 12/27/23 16:20 MCHC 33.0 g/dL (30-55) 12/27/23 16:20 RDW 13.9 % (12.1-15.1) 12/27/23 16:20 Plt Count 220 10^3/cmm (157-399) 12/27/23 16:20 MPV 10.2 fL (7.4-10.4) 12/27/23 16:20 Neut % (Auto) 54.8 % 12/27/23 16:20 Lymph % (Auto) 27.9 % 12/27/23 16:20 [place] % (Auto) 15.8 % 12/27/23 16:20 Eos % (Auto) 0.6 % 12/27/23 16:20 Baso % (Auto) 0.6 % 12/27/23 16:20 Neut # (Auto) 1.87 10^3/uL (1.8-7.7) 12/27/23 16:20 Lymph # (Auto) 1.0 10^3/uL (0.8-4.8) 12/27/23 16:20 [place] # (Auto) 0.5 10^3/uL (0.2-0.9) 12/27/23 16:20 Eos # (Auto) 0.0 10^3/uL (0.0-0.8) 12/27/23 16:20 Baso # (Auto) 0.0 10^3/uL (0.0-0.1) 12/27/23 16:20 Nucleated RBC % (auto) 0 % 12/27/23 16:20 Nucleated RBCs # 0.0 /100WBC 12/27/23 16:20 Sodium 140 mmol/L (136-145) 12/27/23 16:20 Potassium 3.8 mmol/L (3.5-5.1) 12/27/23 16:20 Chloride 107 mmol/L (98-107) 12/27/23 16:20 Carbon Dioxide 24 mmol/L (22-29) 12/27/23 16:20 Anion Gap 12.8 (5-19) 12/27/23 16:20 BUN 12 mg/dL (8-23) 12/27/23 16:20 Creatinine 1.0 mg/dL (0.7-1.2) 12/27/23 16:20 GFR Calculation Not Reportable 12/27/23 16:20 Glucose 112 mg/dL (65-115) 12/27/23 16:20 Calculated Osmolality 291 mOsm/kg (285-295) 12/27/23 16:20 Calcium 9.2 mg/dL (8.5-10.5) 12/27/23 16:20 Total Bilirubin 0.3 mg/dL (0.15-1.2) 12/27/23 16:20 AST 11 U/L (0-40) 12/27/23 16:20 ALT < 5 U/L (0-41) 12/27/23 16:20 Alkaline Phosphatase 65 U/L (40-130) 12/27/23 16:20 Total Protein 7.0 g/dL (6.6-8.7) 12/27/23 16:20 Albumin 3.7 g/dL (3.5-5.2) 12/27/23 16:20 Globulin 3.3 g/dL (1.3-4.6) 12/27/23 16:20 Lipase 24 U/L (13-60) 12/27/23 16:20 Discharge Plan Discharge Patient Disposition: Home Clinical Impression: Chemotherapy-induced nausea and vomiting Condition: Stable Prescriptions: No Action aspirin 81 mg tablet,delayed release (DR/EC) 81 mg PO DAILY finasteride 5 mg tablet 5 mg PO QPM lorazepam 1 mg tablet 0.5 - 1 mg sublingual Q6H PRN (Reason: Severe nausea) Qty: 30 3RF levothyroxine 175 mcg tablet See Rx Instructions .ROUTE .COMPLEX Dose Instruction: TAKE 1 TABLET BY MOUTH EVERY DAY thursday through thursday. take 1/2 tablet BY MOUTH ON thursday, SKIP thursday Rx Instructions: TAKE 1 TABLET BY MOUTH EVERY DAY Thursday through thursday. take 1/2 tablet BY MOUTH ON thursday, SKIP thursday megestrol 400 mg/10 mL (10 mL) suspension 400 mg PO DAILY prochlorperazine maleate 10 mg tablet 10 mg PO Q4H PRN triamcinolone acetonide 55 mcg aerosol,spray 2 spray intranasal DAILY Rx Instructions: administer into each nostril (DME) nebulizer with tubing See Rx Instructions .Route .MEDSUPPLY Qty: 1 0RF Rx Instructions: As directed ipratropium-albuterol 0.5 mg-3 mg(2.5 mg base)/3 mL solution for nebulization 3 ml inhalation Q6H PRN (Reason: wheezing) Qty: 90 0RF levofloxacin 500 mg tablet 500 mg PO DAILY 7 Days Qty: 7 0RF (DME) Walker See Rx Instructions .ROUTE .MEDSUPPLY Qty: 1 0RF Rx Instructions: As directed PreserVision AREDS 2 Plus MV 200 mcg-15 mcg- 5 mg-1 mg capsule 1 cap PO DAILY acetaminophen 500 mg capsule 1,000 mg PO Q6H PRN (Reason: Pain) calcium citrate 250 mg calcium tablet 250 mg PO DAILY Qty: 90 1RF cholecalciferol (vitamin D3) 50 mcg (2,000 unit) capsule 50 mcg PO DAILY Qty: 90 1RF trazodone 100 mg tablet 100 mg PO DAILY Qty: 90 2RF Trelegy Ellipta 100-62.5-25 mcg blister with device 1 ea INHALATION DAILY Qty: 60 5RF fluconazole 100 mg tablet 100 mg PO DAILY Qty: 14 0RF (DME) catheter bags See Rx Instructions .Route .MEDSUPPLY Qty: 4 5RF Rx Instructions: As directed nitroglycerin [Nitrostat] 0.4 mg tablet, sublingual 0.4 mg SUBLINGUAL Q5M PRN (Reason: Chest Pain) Qty: 30 1RF Eliquis 5 mg tablet 5 mg PO BID Qty: 180 1RF montelukast 10 mg tablet See Rx Instructions .ROUTE .COMPLEX Qty: 90 2RF Dose Instruction: TAKE 1 TABLET BY MOUTH EVERY DAY Rx Instructions: TAKE 1 TABLET BY MOUTH EVERY DAY tamsulosin 0.4 mg capsule 0.4 mg PO QPM Qty: 90 1RF rosuvastatin 40 mg tablet 40 mg PO BEDTIME Qty: 60 1RF dronabinol 5 mg capsule 5 mg PO BID Qty: 60 0RF Rx Instructions: administer before lunch and evening meal/dinner azelastine 137 mcg (0.1 %) spray,non-aerosol 2 spray intranasal BID Qty: 30 1RF Rx Instructions: administer into each nostril omeprazole 40 mg capsule,delayed release(DR/EC) 40 mg PO DAILY Qty: 30 1RF metoprolol succinate 25 mg tablet extended release 24 hr 25 mg PO QAM Qty: 90 0RF Januvia 100 mg tablet 100 mg PO QAM Qty: 90 0RF morphine 15 mg tablet 15 mg PO Q6H PRN (Reason: pain) 30 Days Qty: 120 0RF carbamazepine 100 mg tablet extended release 12 hr See Rx Instructions .ROUTE .COMPLEX Qty: 60 3RF Dose Instruction: TAKE 1 TABLET BY MOUTH TWICE DAILY Rx Instructions: TAKE 1 TABLET BY MOUTH TWICE DAILY metoclopramide HCl 5 mg tablet See Rx Instructions .ROUTE .COMPLEX Qty: 90 1RF Dose Instruction: TAKE 1 TABLET BY MOUTH THREE TIMES DAILY Rx Instructions: TAKE 1 TABLET BY MOUTH THREE TIMES DAILY ondansetron HCl 8 mg tablet 8 mg PO Q8H PRN (Reason: nausea and vomiting) Qty: 30 1RF Xtandi 80 mg tablet 160 mg PO DAILY Qty: 60 0RF glipizide 2.5 mg tablet extended release 24hr 2.5 mg PO QAM loratadine [Claritin] 10 mg Tablet 10 mg PO QPM Probiotic 3 billion cell Capsule 3,000 mmu cells PO DAILY Rx Instructions: administer with a meal Discharge Orders: Discharge ED (Routine); Ordered 12/27/23 Ordered By: Jake Darling Referrals: Jose Thomason MD [Primary Care Provider] - Patient Instructions: Opioid Safety, Pain Management, Vomiting - Adult Activity Restrictions/Additional Instructions: Take your nausea medication scheduled every 4 hours while awake for the first 24 hours, then as needed. If you are still nauseated, you may take lorazepam with it. Follow a liquid diet for 24 hours and advance as tolerated. Return for fever, worsening pain, worsening vomiting despite the above, any other concerning symptoms. Call your doctor tomorrow and let them know you were seen here this weekend. Coding Level of Care Code ED Topology Teacher for Gale Callahan
[2023-12-27] MEDS: morphine 4 mg/mL SDV 1 mL IVP (17:08)
[2023-12-27] MEDS: ondansetron 2 mg/ML SDV 2 mL 4 MG IVP (17:08)
[2023-12-27] MEDS: sodium chloride 0.9% 1,000 ML 999 ML IV (17:09)
[2023-12-27 17:10] VITALS: PULSE 78; RESP 16; O2SAT 95
[2023-12-27] MEDS: iohexol 350 mg/mL 500 mL Btl (per mL) IV (17:23)
[2023-12-27 18:37] VITALS: BP 149/87; PULSE 88; RESP 17; O2SAT 93
[2023-12-27 19:36] VITALS: BP 145/85; PULSE 74; O2SAT 94
== END 2023-12-27 19:38 | disposition home or self-care (01) ==
PROVIDERS: Emergency Medicine; Emergency Provider Emergency Medicine; PCP Family Medicine
DX: R11.2 Nausea with vomiting, unspecified (principal); Z79.01 Long term (current) use of anticoagulants; Z79.82 Long term (current) use of aspirin; Z87.891 Personal history of nicotine dependence; E11.9 Type 2 diabetes mellitus without complications; E78.5 Hyperlipidemia, unspecified; C61 Malignant neoplasm of prostate; C79.51 Secondary malignant neoplasm of bone; J44.9 Chronic obstructive pulmonary disease, unspecified; I10 Essential (primary) hypertension; Z85.850 Personal history of malignant neoplasm of thyroid
CPT/HCPCS: 36415; 74177; 80053; 83690; 85025; 96374; 96375; 99285; J2270; J2405; J7030

== ENCOUNTER 2024-01-06 09:15 | Oncology outpatient (recurring) (ONCR) | payer MEDICARE, MEDICAID, SELFPAY ==
[2023-12-25] MEDS: sodium chloride 0.9% 1,000 ML 999 ML IV (10:46)
[2023-12-25] MEDS: dexamethasone 10 mg/mL INJ 6 MG IVP (10:51)
[2023-12-25 10:53] LABS: Basophils % 0.5 %; Eosinophils % 0.7 %; Hematocrit 37.4 % (37-53); Lymphocytes # 0.6 10^3/uL (0.8-4.8); Lymphocytes % 14.3 %; Mean Corpuscular HGB Conc 33.2 g/dL (30-55); Mean Corpuscular Hemoglobin 31.5 pg (27-33); Mean Corpuscular Volume 94.9 fl (82-101); Monocytes # 0.5 10^3/uL (0.2-0.9); Monocytes % 12.2 %; Neutrophils # 3.13 10^3/uL (1.8-7.7); Neutrophils % 72.1 %; Nucleated Red Blood Cells % 0 %; Platelet Count 192 10^3/cmm (157-399); Red Blood Count 3.94 10^6/uL (3.85-5.65); Red Cell Distribution Width 13.7 % (12.1-15.1); White Blood Count 4.34 10^3/uL (3.29-11.43)
[2023-12-25 11:10] LABS: Alanine Aminotransferase < 5 U/L (0-41); Albumin Level 3.8 g/dL (3.5-5.2); Alkaline Phosphatase 72 U/L (40-130); Anion Gap 16.4 (5-19); Aspartate Amino Transferase 11 U/L (0-40); Blood Urea Nitrogen 7 mg/dL (8-23); Calcium 8.3 mg/dL (8.5-10.5); Carbon Dioxide 24 mmol/L (22-29); Chloride 100 mmol/L (98-107); Creatinine Clr Calc Pharmacy 89.1311; Globulin 2.8 g/dL (1.3-4.6); Glucose 154 mg/dL (65-115); Osmolality Calculated 283 mOsm/kg (285-295); Potassium 4.4 mmol/L (3.5-5.1); Sodium 136 mmol/L (136-145); Total Bilirubin 0.4 mg/dL (0.15-1.2); Total Protein 6.6 g/dL (6.6-8.7)
[2023-12-25] MEDS: aprepitant 130 mg/18 ml SDV IVP (11:38)
[2023-12-25 12:22] LABS: Bilirubin Urine Negative (Negative); Blood Urine 1+ (Negative); Glucose Urine UA Negative (Normal); Ketones Urine Negative (Negative); Leukocyte Esterase Urine 3+ (Negative); Nitrate Urine Negative (Negative); Protein Urine 1+ (Negative); Specific Gravity, Urine 1.006 (1.005-1.030); Urine Appearance Turbid (CLEAR); Urine Color Yellow (Yellow); pH Urine 8.5 (5-7)
[2023-12-25 12:27] LABS: Add Urine Microscopic? YES; Bacteria Urine 4+ /hpf; Hyaline Casts Urine 7.42 /lpf; RBC Urine 0-2 /hpf (0-2); WBC Urine 51-100 /hpf (0-5)
[2023-12-25 12:50] LABS: UA Slide Review UA Slide Review Perf
[2023-12-25 12:51] LABS: Add Urine Culture? Yes; Amorphous Sediment Urine 2+ /hpf
[2023-12-30 12:09] LABS: Basophils % 0.5 %; Hematocrit 39.7 % (37-53); Mean Corpuscular HGB Conc 33.5 g/dL (30-55); Mean Corpuscular Volume 92.5 fl (82-101); Mean Platelet Volume 10.4 fL (7.4-10.4); Monocytes # 0.7 10^3/uL (0.2-0.9); Monocytes % 15.6 %; Neutrophils % 59.7 %; Nucleated Red Blood Cells % 0 %; Platelet Count 220 10^3/cmm (157-399); Red Blood Count 4.29 10^6/uL (3.85-5.65); Red Cell Distribution Width 14.2 % (12.1-15.1); White Blood Count 4.18 10^3/uL (3.29-11.43)
[2023-12-30 12:40] LABS: Alanine Aminotransferase < 5 U/L (0-41); Alkaline Phosphatase 74 U/L (40-130); Aspartate Amino Transferase 11 U/L (0-40); Blood Urea Nitrogen 8 mg/dL (8-23); Calcium 9.1 mg/dL (8.5-10.5); Carbon Dioxide 21 mmol/L (22-29); Chloride 104 mmol/L (98-107); Creatinine Clr Calc Pharmacy 75.6868; Globulin 3.3 g/dL (1.3-4.6); Glucose 140 mg/dL (65-115); Osmolality Calculated 287 mOsm/kg (285-295); Sodium 138 mmol/L (136-145); Testosterone Total 2.5 ng/dL (193-740); Total Bilirubin 0.4 mg/dL (0.15-1.2); Total Protein 7.3 g/dL (6.6-8.7)
[2023-12-30 12:43] LABS: Anion Gap 17.3 (5-19); Potassium 4.3 mmol/L (3.5-5.1)
[2023-12-30 12:44] LABS: Lactate Dehydrogenase 240 U/L (135-225)
[2023-12-30] MEDS: sodium chloride 0.9% 1,000 ML 999 ML IV (13:33)
[2024-01-06 09:27] LABS: Basophils % 0.6 %; Eosinophils # 0.1 10^3/uL (0.0-0.8); Eosinophils % 1.6 %; Hematocrit 39.3 % (37-53); Lymphocytes # 1.1 10^3/uL (0.8-4.8); Lymphocytes % 35.1 %; Mean Corpuscular HGB Conc 32.8 g/dL (30-55); Mean Corpuscular Hemoglobin 30.3 pg (27-33); Mean Corpuscular Volume 92.3 fl (82-101); Mean Platelet Volume 10.7 fL (7.4-10.4); Monocytes # 0.4 10^3/uL (0.2-0.9); Monocytes % 13.7 %; Neutrophils # 1.57 10^3/uL (1.8-7.7); Neutrophils % 48.7 %; Nucleated Red Blood Cells % 0 %; Platelet Count 200 10^3/cmm (157-399); Red Blood Count 4.26 10^6/uL (3.85-5.65); Red Cell Distribution Width 14.5 % (12.1-15.1); White Blood Count 3.22 10^3/uL (3.29-11.43)
[2024-01-06 09:53] LABS: Alanine Aminotransferase < 5 U/L (0-41); Albumin Level 3.7 g/dL (3.5-5.2); Alkaline Phosphatase 82 U/L (40-130); Anion Gap 17.1 (5-19); Aspartate Amino Transferase 10 U/L (0-40); Blood Urea Nitrogen 11 mg/dL (8-23); Calcium 8.6 mg/dL (8.5-10.5); Carbon Dioxide 23 mmol/L (22-29); Chloride 105 mmol/L (98-107); Creatinine Clr Calc Pharmacy 75.2184; Globulin 3.1 g/dL (1.3-4.6); Glucose 205 mg/dL (65-115); Magnesium 1.8 mg/dL (1.7-2.3); Osmolality Calculated 297 mOsm/kg (285-295); Potassium 4.1 mmol/L (3.5-5.1); Sodium 141 mmol/L (136-145); Total Bilirubin 0.4 mg/dL (0.15-1.2); Total Protein 6.8 g/dL (6.6-8.7)
[2024-01-06] MEDS: dexamethasone 10 mg/mL INJ 6 MG IVP (11:41)
[2024-01-06] MEDS: sodium chloride 0.9% 1,000 ML 999 ML IV (11:41)
== END 2024-01-09 23:59 | disposition home or self-care (01) ==
PROVIDERS: Internal Medicine; Internal Medicine Hematology & Oncology; Nurse Practitioner Family; PCP Family Medicine; Visit Provider Internal Medicine Medical Oncology
DX: C79.51 Secondary malignant neoplasm of bone (principal); C61 Malignant neoplasm of prostate; Z87.891 Personal history of nicotine dependence; Z92.3 Personal history of irradiation; E86.0 Dehydration; Z79.899 Other long term (current) drug therapy; R11.2 Nausea with vomiting, unspecified; Z53.9 Procedure and treatment not carried out, unspecified reason
CPT/HCPCS: 36415; 80053; 81001; 83615; 83735; 84153; 84403; 85025; 87077; 87086; 87186; 96360; 96375; 99213; 99214; J0185; J1100; J7030

== ENCOUNTER 2024-01-17 09:26 | Observation (INO) | payer MEDICARE, MEDICAID, SELFPAY ==
[2024-01-17] VITALS (18 sets, daily range): BP systolic 96–132; BP diastolic 54–82; PULSE 73–103; RESP 12–19; TEMP 36.4–36.6; O2SAT 89–100; BMI 27.5
--- NOTE | 2024-01-17 09:34 | CTR_ITS ---
PROCEDURE INFORMATION: Exam: CT Abdomen And Pelvis With Contrast Exam date and time: 01/17/2024 10:08 AM Age: 78 years old Clinical indication: Constipation and other: Hematochezia; Abdominal pain; Localized; Lower; Prior surgery; Surgery date: 6+ months; Surgery type: Suprapubic catheter; Patient HX: Prostate cancer, bone cancer; Additional info: Abd pain TECHNIQUE: Imaging protocol: Computed tomography of the abdomen and pelvis with contrast. Radiation optimization: All CT scans at this facility use at least one of these dose optimization techniques: automated exposure control; mA and/or kV adjustment per patient size (includes targeted exams where dose is matched to clinical indication); or iterative reconstruction. Contrast material: OMNIPAQUE 350; Contrast volume: 100 ml; Contrast route: INTRAVENOUS (IV); COMPARISON: CT abdomen pelvis w con* [id number] 12/27/2023 5:23 PM, CT abdomen and pelvis 02/28/2023 RADIATION DOSE METRICS: Total DLP (mGy-cm): 926.55 FINDINGS: Tubes, catheters and devices: There is a suprapubic catheter with its tip within the urinary bladder. Lungs: There is minimal linear scarring or atelectasis at the right lung base. Liver: There is diffuse fatty infiltration of the liver. There are subtle low-density lesions within the liver. These are similar to that seen on prior exam from 02/28/2023. Liver is otherwise normal. Gallbladder and biliary ducts: Normal. No calcified stones. No ductal dilation. Pancreas: Normal. No ductal dilation. Spleen: Normal. No splenomegaly. Adrenal glands: Normal. No mass. Kidneys and ureters: There are benign-appearing renal cysts bilaterally. Small nonobstructing renal calculus is noted on the left. No hydronephrosis is noted. Stomach and bowel: There are scattered colonic diverticula. No large bowel wall thickening is appreciated. No dilated loops of large or small bowel is appreciated. Appendix: No evidence of appendicitis. Intraperitoneal space: Unremarkable. No free air. No significant fluid collection. Vasculature: The aorta is normal in caliber. There is calcified plaque involving the aorta and its branch vessels. Lymph nodes: Unremarkable. No enlarged lymph nodes. Urinary bladder: Unremarkable as visualized. Reproductive: Unremarkable as visualized. Bones/joints: There are multiple sclerotic lesions involving the spine overall similar to that seen on prior exam likely representing metastasis. Soft tissues: There is a small fat filled periumbilical hernia. CT/CT abdomen pelvis w con* [id number] IMPRESSION: 1. Mild fatty infiltration of the liver. There are small indeterminate low-density lesions within the liver which could reflect metastasis. These lesions do not appear to be significantly changed when compared to a prior exam from 02/28/2023. 2. 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 3. Diverticulosis without definite diverticulitis. 4. Suprapubic catheter in place. COMMENTS: Consistent with the [employer]'s Incidental Findings Committee white paper (J Am Manjinder Radiol 2018): Any incidental renal lesion less than 1 cm or classified as too small to characterize, or any incidental cystic renal lesion characterized as simple-appearing, is likely benign. No follow-up imaging is recommended for these lesions per consensus recommendations based on imaging criteria.
--- NOTE | 2024-01-17 09:44 | ECG_ITS ---
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: : 1945 Requested By: Jacques Rodriguez Order Number: [id number] Reading MD: AME DANIELS Measurements Intervals [place] Rate: 88 P: 60 WA: 165 QRS: 70 QRSD: 79 T: 77 QT: 375 QTc: 454 Interpretive Statements SINUS RHYTHM WITH OCCASIONAL SUPRAVENTRICULAR PREMATURE COMPLEXES NONSPECIFIC T-WAVE ABNORMALITY Compared to ECG 11/03/2023 17:17:11 T-wave abnormality now present Ventricular premature complex(es) no longer present Electronically Signed On 01-18-2024 16:09:56 DIRECTOR CUSTOM by AME DANIELS [email or web address]
[2024-01-17 10:03] LABS: Basophils % 0.7 %; Eosinophils % 1.4 %; Hematocrit 40.5 % (37-53); Lymphocytes # 0.6 10^3/uL (0.8-4.8); Mean Corpuscular HGB Conc 32.8 g/dL (30-55); Mean Corpuscular Hemoglobin 30.6 pg (27-33); Mean Corpuscular Volume 93.1 fl (82-101); Mean Platelet Volume 10.4 fL (7.4-10.4); Monocytes # 0.3 10^3/uL (0.2-0.9); Monocytes % 11.8 %; Neutrophils # 1.93 10^3/uL (1.8-7.7); Neutrophils % 66.8 %; Nucleated Red Blood Cells % 0 %; Platelet Count 176 10^3/cmm (157-399); Red Blood Count 4.35 10^6/uL (3.85-5.65); Red Cell Distribution Width 14.9 % (12.1-15.1); White Blood Count 2.89 10^3/uL (3.29-11.43)
--- NOTE | 2024-01-17 10:10 | ED_ITS ---
HPI - Abdominal Pain 2 General: Chief Complaint: Abdominal Pain Stated Complaint: blood in stool Time Seen by Provider: 01/17/24 09:33 History of Present Illness: 78-year-old male presents emergency room complaining of bright red blood per rectum. He has been constipated last few days he was straining to have a bowel movement had what he describes as a lot of blood with a small amount of stool. He has not had any diarrhea recently. He does have an indwelling suprapubic [place] it has been draining regularly. He denies any fever sweats or chills. Denies any flank pain no chest pain or shortness of breath. He is on apixaban due to DVT. Patient has a history of prostate cancer with bony metastasis. Associated Symptoms: Reports hematochezia; Denies chills, dysuria and fever(s) Related Data Home Medications Medication Instructions Recorded Confirmed aspirin 81 mg tablet,delayed 81 mg PO DAILY 03/29/19 01/17/24 release mv-mn-folic 200 mcg-vit K 15 1 cap PO DAILY 04/09/23 01/17/24 mcg-lutein 5 mg-zeaxanthin 1 mg capsule (PreserVision AREDS 2 Plus Multivit) loratadine 10 mg tablet (Claritin) 10 mg PO QPM 07/31/23 01/17/24 levothyroxine 175 mcg tablet See Rx Instructions .Route .COMPLEX 10/26/23 01/17/24 budesonide 0.5 mg/2 mL suspension 0.5 mg inhalation BID 01/17/24 01/17/24 for nebulization carbamazepine 100 mg 100 mg PO BID 01/17/24 01/17/24 tablet,extended release,12 hr metoclopramide HCl 5 mg tablet 5 mg PO TID 01/17/24 01/17/24 montelukast 10 mg tablet 10 mg PO DAILY 01/17/24 01/17/24 Previous Rx's Medication Instructions Recorded nitroglycerin 0.4 mg sublingual 0.4 mg sublingual Q5M PRN Chest 07/21/22 tablet (Nitrostat) Pain #30 tabs Walker #1 ea 07/28/22 apixaban 5 mg tablet (Eliquis) 5 mg PO BID #180 tabs 08/03/23 tamsulosin 0.4 mg capsule 0.4 mg PO QPM #90 caps 09/30/23 catheter bags #4 ea 10/08/23 cholecalciferol (vitamin D3) 50 50 mcg PO DAILY #90 caps 10/13/23 mcg (2,000 unit) capsule fluticasone fur. 100 mcg-umeclid 1 ea inhalation DAILY #60 ea 10/13/23 62.5 mcg-vilant 25 mcg inhalat.powder (Trelegy Ellipta) trazodone 100 mg tablet 100 mg PO DAILY #90 tabs 10/13/23 ipratropium 0.5 mg-albuterol 3 mg 3 ml inhalation Q6H PRN wheezing 11/06/23 (2.5 mg base)/3 mL nebulization #90 mL soln nebulizer with tubing #1 ea 11/06/23 azelastine 137 mcg (0.1 %) nasal 2 spray intranasal BID #30 mL 11/18/23 spray omeprazole 40 mg capsule,delayed 40 mg PO DAILY #30 caps 11/18/23 release metoprolol succinate 25 mg 25 mg PO QAM #90 tabs 12/08/23 tablet,extended release 24 hr sitagliptin phosphate 100 mg 100 mg PO QAM #90 tabs 12/08/23 tablet (Januvia) morphine 15 mg immediate release 15 mg PO Q6H PRN pain 30 days #120 12/09/23 tablet tabs enzalutamide 80 mg tablet (Xtandi) 160 mg (2 x 80 mg) PO DAILY #60 12/24/23 tabs glipizide 2.5 mg tablet, extended 2.5 mg PO QAM #90 tabs 12/28/23 release 24 hr rosuvastatin 40 mg tablet 40 mg PO BEDTIME #90 tabs 12/29/23 ondansetron HCl 8 mg tablet 8 mg PO Q8H PRN nausea and 01/14/24 vomiting #30 tabs prednisone 5 mg tablet 5 mg PO BID #60 tabs 01/14/24 Allergies Allergy/AdvReac Type Severity Reaction Status Date / Time vancomycin Allergy HIVES,RASH Verified 01/13/24 08:59 Review of Systems 2 Const: Denies: fever(s) or chills Card: Denies: chest pain Resp: Denies: dyspnea GI: Reports: hematochezia; Denies: abdominal pain : Denies: dysuria, urinary frequency or urinary urgency Musc: Denies: neck pain or back pain Skin/Breast: Denies: rash PFSH ED 2 PFSH: Medical History (Updated 01/17/24 @ 17:13 by Jacques Hurtado DO) Papillary thyroid carcinoma Suprapubic catheter Prostate cancer metastatic to bone Deep vein thrombosis (DVT) of left lower extremity Nausea & vomiting Weight loss Lower urinary tract symptoms (LUTS) Cancer related pain Urinary tract infection Right kidney mass Burning sensation of feet Lumbar stenosis with neurogenic claudication Intervertebral disc disorder with radiculopathy of lumbosacral region Metastasis to bone Dyslipidemia History of diverticulitis Type 2 diabetes mellitus, without long-term current use of insulin Benign essential HTN Post-surgical hypothyroidism Insomnia GERD (gastroesophageal reflux disease) COPD (chronic obstructive pulmonary disease) 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 Other CAD (coronary artery disease) Social History Smoking and tobacco/nicotine status: former use of tobacco/nicotine Quit status (tobacco/nicotine): has quit using Year quit tobacco: 2022 Former quit date comment: stopped in February of this year Alcohol intake: never Substance/Drug Use: never Lives independently: Yes Household members: spouse Marital status: Current occupational status: retired Physical Exam 2 Const: GENERAL APPEARANCE: cooperative ORIENTATION/CONSCIOUSNESS: Yes awake, Yes oriented to person, Yes oriented to place and Yes oriented to time HENMT: COMMON NORMALS: normocephalic, atraumatic and hearing grossly normal bilaterally HEAD & SCALP: normocephalic and atraumatic Resp: COMMON NORMALS: normal respiratory effort, No retractions, No use of accessory muscles and clear to auscultation bilaterally AUSCULTATION: clear to auscultation bilaterally Cardio: COMMON NORMALS: regular rate, regular rhythm and No murmurs present (Cardio) RATE: regular rate RHYTHM: regular rhythm GI: COMMON NORMALS: Soft to palpation and No hepatosplenomegaly present A USCULTATION: Yes normoactive bowel sounds PALPATION: Yes Soft to palpation, No Tenderness to palpation present (GI), No Guarding due to palpation present (GI) and Yes No hepatosplenomegaly present Extremity: COMMON NORMALS: normal to inspection, capillary refill normal, no clubbing, cyanosis or edema, no calf tenderness and no pedal edema Neuro: SENSORIUM/ORIENTATION: Yes oriented to person, Yes oriented to place and Yes oriented to time Skin: COMMON NORMALS: no rashes or lesions noted GENERAL SKIN EXAM: no rashes or lesions noted Course 2 Vital Signs: Vital signs: Vital Signs Temperature 97.8 F 01/17/24 09:39 Pulse Rate 91 01/17/24 16:24 Respiratory Rate 16 01/17/24 15:00 Blood Pressure 123/73 01/17/24 16:24 Pulse Oximetry 92 01/17/24 16:24 Oxygen Delivery Me thod Room Air 01/17/24 09:39 MDM - Abdominal Pain Medical Decision Making Patient having bright red blood per rectum is on apixaban. Hemoglobin is stable at this time. He thinks it is from constipation. He does have diverticuli but is not appear to have diverticuli discussed with hospitalist orders written. Will observe. Coverage with Zosyn. Patient has had resistant bacteria before with his suprapubic catheter . His last couple of cultures have been sensitive to Zosyn and will start on Zosyn for now discussed with Dr. Solis. Medical Records I reviewed the patient's medical records. Lab Data I reviewed the patient's lab results. 01/17/24 09:56 01/17/24 09:56 Labs/Radiology: Radiology Impressions Abdomen/Pelvis CT 01/17/24 09:34 IMPRESSION: 1. Mild fatty infiltration of the liver. There are small indeterminate low-density lesions within the liver which could reflect metastasis. These lesions do not appear to be significantly changed when compared to a prior exam from 02/28/2023. 2. 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 3. Diverticulosis without definite diverticulitis. 4. Suprapubic catheter in place. COMMENTS: Consistent with the [employer]'s Incidental Findings Committee white paper (J Am Manjinder Radiol 2018): Any incidental renal lesion less than 1 cm or classified as too small to characterize, or any incidental cystic renal lesion characterized as simple-appearing, is likely benign. No follow-up imaging is recommended for these lesions per consensus recommendations based on imaging criteria. Laboratory Results WBC 2.89 10^3/uL (3.29-11.43) L 01/17/24 09:56 RBC 4.35 10^6/uL (3.85-5.65) 01/17/24 09:56 Hgb 13.30 g/dL (11.27-16.99) 01/17/24 09:56 Hct 40.5 % (37-53) 01/17/24 09:56 MCV 93.1 fl (82-101) 01/17/24 09:56 MCH 30.6 pg (27-33) 01/17/24 09:56 MCHC 32.8 g/dL (30-55) 01/17/24 09:56 RDW 14.9 % (12.1-15.1) 01/17/24 09:56 Plt Count 176 10^3/cmm (157-399) 01/17/24 09:56 MPV 10.4 fL (7.4-10.4) 01/17/24 09:56 Neut % (Auto) 66.8 % 01/17/24 09:56 Lymph % (Auto) 19.0 % 01/17/24 09:56 [place] % (Auto) 11.8 % 01/17/24 09:56 Eos % (Auto) 1.4 % 01/17/24 09:56 Baso % (Auto) 0.7 % 01/17/24 09:56 Neut # (Auto) 1.93 10^3/uL (1.8-7.7) 01/17/24 09:56 Lymph # (Auto) 0.6 10^3/uL (0.8-4.8) L 01/17/24 09:56 [place] # (Auto) 0.3 10^3/uL (0.2-0.9) 01/17/24 09:56 Eos # (Auto) 0.0 10^3/uL (0.0-0.8) 01/17/24 09:56 Baso # (Auto) 0.0 10^3/uL (0.0-0.1) 01/17/24 09:56 Nucleated RBC % (auto) 0 % 01/17/24 09:56 Nucleated RBCs # 0.0 /100WBC 01/17/24 09:56 PT 18.90 SECONDS (12.1-14.9) H 01/17/24 09:56 INR 1.53 (0.8-1.2) H 01/17/24 09:56 APTT 35.1 SECONDS (23.9-36.7) 01/17/24 09:56 Sodium 137 mmol/L (136-145) 01/17/24 09:56 Potassium 3.6 mmol/L (3.5-5.1) 01/17/24 09:56 Chloride 101 mmol/L (98-107) 01/17/24 09:56 Carbon Dioxide 24 mmol/L (22-29) 01/17/24 09:56 Anion Gap 15.6 (5-19) 01/17/24 09:56 BUN 19 mg/dL (8-23) 01/17/24 09:56 Creatinine 1.1 mg/dL (0.7-1.2) 01/17/24 09:56 GFR Calculation Not Reportable 01/17/24 09:56 Glucose 173 mg/dL (65-115) H 01/17/24 09:56 Calculated Osmolality 290 mOsm/kg (285-295) 01/17/24 09:56 Calcium 9.0 mg/dL (8.5-10.5) 01/17/24 09:56 Total Bilirubin 0.5 mg/dL (0.15-1.2) 01/17/24 09:56 AST 11 U/L (0-40) 01/17/24 09:56 ALT 7 U/L (0-41) 01/17/24 09:56 Alkaline Phosphatase 108 U/L (40-130) 01/17/24 09:56 Total Protein 6.3 g/dL (6.6-8.7) L 01/17/24 09:56 Albumin 3.4 g/dL (3.5-5.2) L 01/17/24 09:56 Globulin 2.9 g/dL (1.3-4.6) 01/17/24 09:56 Urine Color Yellow (Yellow) 01/17/24 09:56 Urine Appearance Turbid (CLEAR) A 01/17/24 09:56 Urine pH 7.0 (5-7) 01/17/24 09:56 Ur Specific [place] 1.019 (1.005-1.030) 01/17/24 09:56 Urine Protein 2+ (Negative) A 01/17/24 09:56 Urine Glucose (UA) Negative (Normal) 01/17/24 09:56 Urine Ketones Negative (Negative) 01/17/24 09:56 Urine Blood 3+ (Negative) A 01/17/24 09:56 Urine Nitrate Positive (Negative) A 01/17/24 09:56 Urine Bilirubin Negative (Negative) 01/17/24 09:56 Urine Urobilinogen 1.0 mg/dL (Negative) 01/17/24 09:56 Ur Leukocyte Esterase 2+ (Negative) A 01/17/24 09:56 Urine RBC 25-40 /hpf (0-2) H 01/17/24 09:56 Urine WBC >100 /hpf (0-5) H 01/17/24 09:56 Ur Squamous Epith Cells None /hpf (0-5) 01/17/24 09:56 Amorphous Sediment Not Reportable 01/17/24 09:56 Urine Bacteria 3+ /hpf (NONE) H 01/17/24 09:56 All radiology interpretation(s) finalized by discharge Discharge Plan Discharge Patient Disposition: Admitted As Inpatient Admit Provider: Soo Solis Clinical Impression: Suprapubic catheter, Recurrent UTI, Prostate cancer metastatic to bone, Acute lower gastrointestinal bleeding Condition: Stable Coding Level of Care Code ED Director [facility] Sclerosis [facility] for [facility]ale Callahan
[2024-01-17 10:11] LABS: Bilirubin Urine Negative (Negative); Blood Urine 3+ (Negative); Glucose Urine UA Negative (Normal); Ketones Urine Negative (Negative); Leukocyte Esterase Urine 2+ (Negative); Nitrate Urine Positive (Negative); Protein Urine 2+ (Negative); Specific Gravity, Urine 1.019 (1.005-1.030); Urine Appearance Turbid (CLEAR); Urine Color Yellow (Yellow)
[2024-01-17] MEDS: iohexol 350 mg/mL 500 mL Btl (per mL) IV (10:11)
[2024-01-17 10:15] LABS: INR 1.53 (0.8-1.2); Partial Thromboplastin Time 35.1 SECONDS (23.9-36.7)
[2024-01-17 10:19] LABS: Alanine Aminotransferase 7 U/L (0-41); Albumin Level 3.4 g/dL (3.5-5.2); Alkaline Phosphatase 108 U/L (40-130); Anion Gap 15.6 (5-19); Aspartate Amino Transferase 11 U/L (0-40); Blood Urea Nitrogen 19 mg/dL (8-23); Carbon Dioxide 24 mmol/L (22-29); Chloride 101 mmol/L (98-107); Creatinine Clr Calc Pharmacy 70.9368; Globulin 2.9 g/dL (1.3-4.6); Glucose 173 mg/dL (65-115); Osmolality Calculated 290 mOsm/kg (285-295); Potassium 3.6 mmol/L (3.5-5.1); Sodium 137 mmol/L (136-145); Total Bilirubin 0.5 mg/dL (0.15-1.2); Total Protein 6.3 g/dL (6.6-8.7)
[2024-01-17 10:23] LABS: UA Manual Slide Review YES; UA Slide Review UA Slide Review Perf
[2024-01-17 10:24] LABS: Add Urine Culture? Yes; Add Urine Microscopic? YES; Bacteria Urine 3+ /hpf; RBC Urine 25-40 /hpf (0-2); WBC Urine >100 /hpf (0-5)
--- NOTE | 2024-01-17 14:26 | P.HP_ITS ---
Providers/Chief Complaint 2 Primary Care Provider: Jose Thomason MD Chief Complaint: blood in stool History of Present Illness Charlie Jacobs is a 78 year old male with metastatic prostate cancer currently follows with oncology as outpatient. He presented to the emergency room with chief complaints of rectal bleeding. Patient states that he was having a bowel movement this morning he had passage of bright red blood clots. He has had 2 further episode and has noticed blood in his diaper additionally. Review of chart shows that he has previously seen Dr. Khoa Alonso in October 2023 for similar complaints. He was recommended to undergo colonoscopy at that time but had declined. He states he has a previous history of hemorrhoids. He states it is somewhat painful for him to have a bowel movement. Hemoglobin today is stable. Patient also has a chronic suprapubic catheter for which he follows with urology out of [facility]. He has a history of recurrent UTIs. Denies any abdominal pain fever or chills at this present time. His catheter is typically changed once every 3 weeks. Review of Systems 2 General: Reports: 10 or more systems reviewed and unremarkable except in HPI and below Const: Denies: fever(s), chills or body aches Eyes: Denies: change in vision, blurry vision or photophobia ENMT: Reports: hoarseness; Denies: throat pain, enlarged tonsils, odynophagia or nasal congestion Card: Denies: chest pain, palpitations, irregular heart rhythm, edema, swelling of feet/ankles, lightheadedness, pre-syncope, dyspnea on exertion or orthopnea Resp: Denies: dyspnea, productive cough, non-productive cough, wheezing, stridor, pain on inspiration, change in phlegm color, hemoptysis or chest congestion GI: Denies: abdominal pain, nausea, vomiting, hematemesis, coffee ground emesis, dysphagia, heartburn, diarrhea, constipation, GI cramping, change in stool character, hematochezia or melena : Denies: flank pain, dysuria, urinary frequency, urinary urgency, urinary hesitancy or hematuria Musc: Denies: neck pain, back pain, extremity pain, joint swelling, joint warmth or deformity Neuro: Denies: headache(s), numbness in extremities, weakness in extremities, sensory changes, difficulty walking, frequent falls, dizziness, vertigo, behavioral changes, Slurred speech present or seizure-like activity Psych: Denies: anxiety, depression, suicidal ideation or homicidal ideation Endo: Denies: polyuria, polydipsia, tired all the time, cold intolerance or hot flashes Wilfrid/Lymph: Denies: easy bruising or easy bleeding Medications/Allergies Home Medications Medication Instructions Recorded Confirmed Last Taken Type aspirin 81 mg tablet,delayed 81 mg PO DAILY 03/29/19 01/17/24 11/06/23 06:00 History release nitroglycerin 0.4 mg sublingual 0.4 mg sublingual Q5M PRN Chest 07/21/22 01/17/24 05/24/23 Rx tablet (Nitrostat) Pain #30 tabs Walker #1 ea 07/28/22 01/17/24 05/24/23 Rx mv-mn-folic 200 mcg-vit K 15 1 cap PO DAILY 04/09/23 01/17/24 11/06/23 History mcg-lutein 5 mg-zeaxanthin 1 mg capsule (PreserVision AREDS 2 Plus Multivit) loratadine 10 mg tablet (Claritin) 10 mg PO QPM 07/31/23 01/17/24 11/05/23 History apixaban 5 mg tablet (Eliquis) 5 mg PO BID #180 tabs 08/03/23 01/17/24 11/06/23 07:00 Rx tamsulosin 0.4 mg capsule 0.4 mg PO QPM #90 caps 09/30/23 01/17/24 11/05/23 Rx catheter bags #4 ea 10/08/23 01/17/24 Unknown Rx cholecalciferol (vitamin D3) 50 50 mcg PO DAILY #90 caps 10/13/23 01/17/24 11/06/23 Rx mcg (2,000 unit) capsule fluticasone fur. 100 mcg-umeclid 1 ea inhalation DAILY #60 ea 10/13/23 01/17/24 11/06/23 Rx 62.5 mcg-vilant 25 mcg inhalat.powder (Trelegy Ellipta) trazodone 100 mg tablet 100 mg PO DAILY #90 tabs 10/13/23 01/17/24 11/05/23 Rx levothyroxine 175 mcg tablet See Rx Instructions .Route .COMPLEX 10/26/23 01/17/24 11/06/23 06:00 History ipratropium 0.5 mg-albuterol 3 mg 3 ml inhalation Q6H PRN wheezing 11/06/23 01/17/24 Unknown Rx (2.5 mg base)/3 mL nebulization #90 mL soln nebulizer with tubing #1 ea 11/06/23 01/17/24 Unknown Rx azelastine 137 mcg (0.1 %) nasal 2 spray intranasal BID #30 mL 11/18/23 01/17/24 Unknown Rx spray omeprazole 40 mg capsule,delayed 40 mg PO DAILY #30 caps 11/18/23 01/17/24 Unknown Rx release metoprolol succinate 25 mg 25 mg PO QAM #90 tabs 12/08/23 01/17/24 Unknown Rx tablet,extended release 24 hr sitagliptin phosphate 100 mg 100 mg PO QAM #90 tabs 12/08/23 01/17/24 Unknown Rx tablet (Januvia) morphine 15 mg immediate release 15 mg PO Q6H PRN pain 30 days #120 12/09/23 01/17/24 Unknown Rx tablet tabs enzalutamide 80 mg tablet (Xtandi) 160 mg (2 x 80 mg) PO DAILY #60 12/24/23 01/17/24 Unknown Rx tabs glipizide 2.5 mg tablet, extended 2.5 mg PO QAM #90 tabs 12/28/23 01/17/24 Unknown Rx release 24 hr rosuvastatin 40 mg tablet 40 mg PO BEDTIME #90 tabs 12/29/23 01/17/24 Unknown Rx ondansetron HCl 8 mg tablet 8 mg PO Q8H PRN nausea and 01/14/24 01/17/24 Unknown Rx vomiting #30 tabs prednisone 5 mg tablet 5 mg PO BID #60 tabs 01/14/24 01/17/24 Unknown Rx budesonide 0.5 mg/2 mL suspension 0.5 mg inhalation BID 01/17/24 01/17/24 Unknown History for nebulization carbamazepine 100 mg 100 mg PO BID 01/17/24 01/17/24 Unknown History tablet,extended release,12 hr metoclopramide HCl 5 mg tablet 5 mg PO TID 01/17/24 01/17/24 Unknown History montelukast 10 mg tablet 10 mg PO DAILY 01/17/24 01/17/24 Unknown History Allergies Allergy/AdvReac Type Severity Reaction Status Date / Time vancomycin Allergy HIVES,RASH Verified 01/13/24 08:59 PFSH Acute 2 PFSH: Medical History Papillary thyroid carcinoma Suprapubic catheter Prostate cancer metastatic to bone Deep vein thrombosis (DVT) of left lower extremity Nausea & vomiting Weight loss Lower urinary tract symptoms (LUTS) Cancer related pain Urinary tract infection Right kidney mass Burning sensation of feet Lumbar stenosis with neurogenic claudication Intervertebral disc disorder with radiculopathy of lumbosacral region Metastasis to bone Dyslipidemia History of diverticulitis Type 2 diabetes mellitus, without long-term current use of insulin Benign essential HTN Post-surgical hypothyroidism Insomnia GERD (gastroesophageal reflux disease) COPD (chronic obstructive pulmonary disease) 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 Other CAD (coronary artery disease) Social History Smoking and tobacco/nicotine status: former use of tobacco/nicotine Quit status (tobacco/nicotine): has quit using Year quit tobacco: 2022 Former quit date comment: stopped in February of this year Alcohol intake: never Substance/Drug Use: never Lives independently: Yes Household members: spouse Marital status: Current occupational status: retired Vitals/I&O/Wt Last Vital Signs Temp 97.8 F 01/17/24 09:39 Pulse 74 01/17/24 12:30 Resp 18 01/17/24 12:30 BP 119/82 01/17/24 12:30 Pulse Ox 91 01/17/24 12:30 O2 Del Method Room Air 01/17/24 09:39 Weight last 48 hrs Weight 99.79 kg Physical Exam 2 Narrative: General: No acute distress, AO x3 HEENT: PERRLA, pupils bilaterally equal and reactive, pallors not present Chest: Normal vesicular breath sounds, no added sounds, equal good air entry bilaterally CVS: S1-S2 regular, no murmurs, no tachycardia, no gallops, no rubs Abdomen: Soft, nontender, no organomegaly, bowel sounds present Neuro: No focal deficits, no facial deformity, AO x3, power 5/5 in all limbs Data 01/18/24 12:30 01/17/24 09:56 A&P Assessment and plan (1) Rectal bleeding: Patient presenting with rectal bleeding today He has noticed bright red blood mixed with stools and in his diaper. Overall 3 episodes today. Hemoglobin today is at 13.3. Stable over previous numbers. He is chronically on Eliquis for history of DVT which we will hold for now. Additionally hold aspirin during the course of his admission Fever rectal bleeding to be likely hemorrhoidal. If hemoglobin falls are there is signs of hemodynamic instability would consult general surgery for urgent colonoscopy. Clear liquid diet for now Stool softeners Protonix 40 mg IV every 12 hours Plan Chronic suprapubic catheter in place. Positive UA which may be likely related to colonization. Currently no signs of a UTI, however given his past history of recurrent UTIs will begin piperacillin/tazobactam while undergoing further evaluation and overnight monitoring. Attestations 2 Medical Necessity Statement*: Less than 2 midnight stay currently anticipated Coding Level of Care Code Acute Code for Chg Fwd Moderate MDM includes number and complexity of problems actively addressed during encounter, amount and/or complexity of data reviewed/ordered and described risk of complication, morbidity or mortality of management as documented Diagnoses Rectal bleeding K62.5
[2024-01-17] MEDS: lactulose oral liq 20 gm/30 mL UDC 10 GM PO (15:04)
[2024-01-17] MEDS: piperacillin-tazobactam 3.375 GM in sodium chloride 0.9% (plus) 50 ML IV ×2 (16:41→23:52)
[2024-01-17] MEDS: pantoprazole 40 mg SDV IVP (16:42)
[2024-01-17] MEDS: carBAMazepine XR (12 HR) 100 mg Tablet PO (16:42)
[2024-01-17] MEDS: tamsulosin 0.4 mg Capsule PO (16:42)
[2024-01-17] MEDS: predniSONE 5 mg Tablet PO (16:42)
[2024-01-17 18:20] LABS: Hematocrit 37.1 % (37-53)
[2024-01-17 19:24] LABS: C.Diff PCR (Lab) NEGATIVE (Negative)
[2024-01-17] MEDS: budesonide 0.5 mg/2 mL Neb INHALATION (19:40)
[2024-01-17] MEDS: ipratropium-albuterol 3 mL Neb INHALATION (19:40)
[2024-01-17] MEDS: atorvastatin 40 mg Tablet PO (20:57)
[2024-01-17] MEDS: trazodone 100 mg Tablet PO (20:57)
[2024-01-17] MEDS: metoclopramide 10 mg Tablet 5 MG PO (20:57)
[2024-01-17 21:48] LABS: Glucose Point of Care 145 mg/dL (70-110)
[2024-01-18] VITALS (10 sets, daily range): BP systolic 118–135; BP diastolic 68–84; PULSE 77–100; RESP 16–18; TEMP 36.6–36.9; O2SAT 92–97
[2024-01-18 00:35] LABS: Hematocrit 37.3 % (37-53)
[2024-01-18] MEDS: ipratropium-albuterol 3 mL Neb INHALATION (02:06)
[2024-01-18] MEDS: pantoprazole 40 mg SDV IVP (04:12)
[2024-01-18] MEDS: metoprolol succinate ER (24 HR) 25 mg Tablet PO (06:15)
[2024-01-18] MEDS: metoclopramide 10 mg Tablet 5 MG PO (09:11)
[2024-01-18] MEDS: predniSONE 5 mg Tablet PO (09:11)
[2024-01-18] MEDS: carBAMazepine XR (12 HR) 100 mg Tablet PO (09:11)
[2024-01-18] MEDS: piperacillin-tazobactam 3.375 GM in sodium chloride 0.9% (plus) 50 ML IV (09:12)
--- NOTE | 2024-01-18 10:05 | PC.CHAP ---
Pastoral Care Encounter/Spiritual Assessment Type of Contact [] Declined carbide operator visit [] Patient/Family/Request visit [] Outpatient visit [] Follow-up visit [] Physician referral [] Code/Alert [x] Routine visit [] Staff referral [] Actively dying [] Patient sleeping [] Family support [] [] Out of room [] Palliative care [] [x] Receiving care in room [] Pre-surgical visit [] Trauma [] Long length of stay [] ICU visit [] Other: Relational/Emotional Strength [] Patient feels connected with others/family/visitors/staff [] Distress [] Loneliness/isolation [] Abandonment Spirituality of Patient [] Person of Sully [] Attends Sabianism of their Sully [] Believes in Prayer [] Reads Bible or Samaritan materials [] There are Spiritual issues to be addressed Performance Manager Interventions [x] Prayer [] Active listening [] Non-anxious presence [] Spiritual/emotional support [] Crisis/trauma care [] Spiritual counseling [] Bereavement support [] Provided bereavement packet [] Provided Bible/devotional materials [] Provided toy/stuffed animal, coloring book to patient or family member [] Provided Communion [] Anointing/Thayne [] Salvation [] Completed spiritual assessment [] Other: Impact on Illness or Injury [] Angry [] Fearful [] Anxious [] Often cries [] Exhaustion [] Unable to work [] Unable to attend uatsdin [] Unable to walk/stand [] Unable to read [] Unable to drive [] Unable to eat/drink [] Unable to sleep [] Unable to be with family [] Patient intubated [] Other: Summary Time spent with patient
[2024-01-18 12:48] LABS: Basophils % 0.3 %; Eosinophils % 0.3 %; Hematocrit 37.4 % (37-53); Lymphocytes # 0.6 10^3/uL (0.8-4.8); Lymphocytes % 18.7 %; Mean Corpuscular HGB Conc 33.4 g/dL (30-55); Mean Corpuscular Hemoglobin 30.6 pg (27-33); Mean Corpuscular Volume 91.4 fl (82-101); Mean Platelet Volume 10.6 fL (7.4-10.4); Monocytes # 0.4 10^3/uL (0.2-0.9); Monocytes % 13.3 %; Neutrophils # 2.11 10^3/uL (1.8-7.7); Neutrophils % 67.1 %; Nucleated Red Blood Cells % 0 %; Platelet Count 168 10^3/cmm (157-399); Red Blood Count 4.09 10^6/uL (3.85-5.65); Red Cell Distribution Width 15.6 % (12.1-15.1); White Blood Count 3.15 10^3/uL (3.29-11.43)
--- NOTE | 2024-01-18 17:10 | PM.DCS ---
Discharge Providers Date of Admission: 01/17/24 11:20 Date of Discharge: January 18, 2024 Attending Provider at Admission: Soo Solis MD Attending Provider at Discharge: Soo Solis MD Primary Care Provider: Jose Thomason MD Diagnoses at Discharge Discharge Diagnosis (1) Rectal bleeding: Status: Acute Reason for Visit Reason for Visit: blood in stool Brief History: This is a 78-year-old male who was admitted to the hospital for rectal bleeding. He had 3 episodes on the day of admission. His hemoglobin was at 13.3 upon admission. Patient is chronically on Eliquis for a history of DVT which was held. Additionally aspirin was held. Patient was monitored overnight with serial hemoglobin checks since he was at a high risk of bleeding. CT of the abdomen and pelvis did not show any overt bleeding. His hemoglobin remains stable on serial checks between 12-13. He had no further episodes of rectal bleeding since being admitted to the hospital. They note that bleeding may have been related to hemorrhoids. Patient has previously been followed with general surgery Dr. Haddad and has refused colonoscopy in the past. With recurrent bleeding it is likely that he may need further evaluation with endoscopy. Patient has an appointment on 01/20/2024 that he is encouraged to keep. Will hold the Eliquis at the time of discharge until he follows with general surgery and undergoes colonoscopy. Will resume aspirin at the time of discharge. Recommend to use stool softener to minimize risk of constipation and further bleeding. Patient was placed on IV antibiotics while undergoing observation here in the hospital. However this has been discontinued at discharge. His positive UA is most likely related to colonization from an indwelling suprapubic catheter. Currently no signs or symptoms of UTI or other systemic infection. Therefore antibiotics have been discontinued at discharge. Physical Exam Narrative: General: No acute distress, AO x3 HEENT: PERRLA, pupils bilaterally equal and reactive, pallors not present Chest: Normal vesicular breath sounds, no added sounds, equal good air entry bilaterally CVS: S1-S2 regular, no murmurs, no tachycardia, no gallops, no rubs Abdomen: Soft, nontender, no organomegaly, bowel sounds present Neuro: No focal deficits, no facial deformity, AO x3, power 5/5 in all limbs Discharge Data Studies Completed and Pending Completed Studies During Hospitalization Category Date Time Status CT abdomen pelvis w con* [id number] Stat Cat Scan 01/17/24 09:34 Completed Pending at discharge Category Date Time Status Urine Culture Stat Lab 01/17/24 09:56 Results Radiology Impressions Abdomen/Pelvis CT 01/17/24 09:34 IMPRESSION: 1. Mild fatty infiltration of the liver. There are small indeterminate low-density lesions within the liver which could reflect metastasis. These lesions do not appear to be significantly changed when compared to a prior exam from 02/28/2023. 2. 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 3. Diverticulosis without definite diverticulitis. 4. Suprapubic catheter in place. COMMENTS: Consistent with the [employer]'s Incidental Findings Committee white paper (J Am Manjinder Radiol 2018): Any incidental renal lesion less than 1 cm or classified as too small to characterize, or any incidental cystic renal lesion characterized as simple-appearing, is likely benign. No follow-up imaging is recommended for these lesions per consensus recommendations based on imaging criteria. Laboratory Results WBC 3.15 10^3/uL (3.29-11.43) L 01/18/24 12:30 RBC 4.09 10^6/uL (3.85-5.65) 01/18/24 12:30 Hgb 12.50 g/dL (11.27-16.99) 01/18/24 12:30 Hct 37.4 % (37-53) 01/18/24 12:30 MCV 91.4 fl (82-101) 01/18/24 12:30 MCH 30.6 pg (27-33) 01/18/24 12:30 MCHC 33.4 g/dL (30-55) 01/18/24 12:30 RDW 15.6 % (12.1-15.1) H 01/18/24 12:30 Plt Count 168 10^3/cmm (157-399) 01/18/24 12:30 MPV 10.6 fL (7.4-10.4) H 01/18/24 12:30 Neut % (Auto) 67.1 % 01/18/24 12:30 Lymph % (Auto) 18.7 % 01/18/24 12:30 [place] % (Auto) 13.3 % 01/18/24 12:30 Eos % (Auto) 0.3 % 01/18/24 12:30 Baso % (Auto) 0.3 % 01/18/24 12:30 Neut # (Auto) 2.11 10^3/uL (1.8-7.7) 01/18/24 12:30 Lymph # (Auto) 0.6 10^3/uL (0.8-4.8) L 01/18/24 12:30 [place] # (Auto) 0.4 10^3/uL (0.2-0.9) 01/18/24 12:30 Eos # (Auto) 0.0 10^3/uL (0.0-0.8) 01/18/24 12:30 Baso # (Auto) 0.0 10^3/uL (0.0-0.1) 01/18/24 12:30 Nucleated RBC % (auto) 0 % 01/18/24 12:30 Nucleated RBCs # 0.0 /100WBC 01/18/24 12:30 PT 18.90 SECONDS (12.1-14.9) H 01/17/24 09:56 INR 1.53 (0.8-1.2) H 01/17/24 09:56 APTT 35.1 SECONDS (23.9-36.7) 01/17/24 09:56 Sodium 137 mmol/L (136-145) 01/17/24 09:56 Potassium 3.6 mmol/L (3.5-5.1) 01/17/24 09:56 Chloride 101 mmol/L (98-107) 01/17/24 09:56 Carbon Dioxide 24 mmol/L (22-29) 01/17/24 09:56 Anion Gap 15.6 (5-19) 01/17/24 09:56 BUN 19 mg/dL (8-23) 01/17/24 09:56 Creatinine 1.1 mg/dL (0.7-1.2) 01/17/24 09:56 GFR Calculation Not Reportable 01/17/24 09:56 Glucose 173 mg/dL (65-115) H 01/17/24 09:56 POC Glucose 145 mg/dL (70-110) H 01/17/24 21:46 Calculated Osmolality 290 mOsm/kg (285-295) 01/17/24 09:56 Calcium 9.0 mg/dL (8.5-10.5) 01/17/24 09:56 Total Bilirubin 0.5 mg/dL (0.15-1.2) 01/17/24 09:56 AST 11 U/L (0-40) 01/17/24 09:56 ALT 7 U/L (0-41) 01/17/24 09:56 Alkaline Phosphatase 108 U/L (40-130) 01/17/24 09:56 Total Protein 6.3 g/dL (6.6-8.7) L 01/17/24 09:56 Albumin 3.4 g/dL (3.5-5.2) L 01/17/24 09:56 Globulin 2.9 g/dL (1.3-4.6) 01/17/24 09:56 Urine Color Yellow (Yellow) 01/17/24 09:56 Urine Appearance Turbid (CLEAR) A 01/17/24 09:56 Urine pH 7.0 (5-7) 01/17/24 09:56 Ur Specific [place] 1.019 (1.005-1.030) 01/17/24 09:56 Urine Protein 2+ (Negative) A 01/17/24 09:56 Urine Glucose (UA) Negative (Normal) 01/17/24 09:56 Urine Ketones Negative (Negative) 01/17/24 09:56 Urine Blood 3+ (Negative) A 01/17/24 09:56 Urine Nitrate Positive (Negative) A 01/17/24 09:56 Urine Bilirubin Negative (Negative) 01/17/24 09:56 Urine Urobilinogen 1.0 mg/dL (Negative) 01/17/24 09:56 Ur Leukocyte Esterase 2+ (Negative) A 01/17/24 09:56 Urine RBC 25-40 /hpf (0-2) H 01/17/24 09:56 Urine WBC >100 /hpf (0-5) H 01/17/24 09:56 Ur Squamous Epith Cells None /hpf (0-5) 01/17/24 09:56 Amorphous Sediment Not Reportable 01/17/24 09:56 Urine Bacteria 3+ /hpf (NONE) H 01/17/24 09:56 C. difficile (PCR) Negative (Negative) 01/17/24 17:47 Vitals Last Vital Signs Temp 97.9 F 01/18/24 14:35 Pulse 86 01/18/24 14:35 Resp 16 01/18/24 14:35 BP 135/84 01/18/24 14:35 Pulse Ox 94 01/18/24 14:35 O2 Del Method Room Air 01/18/24 13:11 Discharge Plan Discharge Patient Disposition: Home Condition: Stable Prescriptions: New polyethylene glycol 3350 [Miralax] 17 gram powder in packet 17 g PO DAILY Qty: 30 0RF Continued aspirin 81 mg tablet,delayed release (DR/EC) 81 mg PO DAILY levothyroxine 175 mcg tablet See Rx Instructions .ROUTE .COMPLEX Dose Instruction: TAKE 1 TABLET BY MOUTH EVERY DAY thursday through thursday. take 1/2 tablet BY MOUTH ON thursday, SKIP thursday Rx Instructions: TAKE 1 TABLET BY MOUTH EVERY DAY Thursday through thursday. take 1/2 tablet BY MOUTH ON thursday, SKIP thursday (DME) nebulizer with tubing See Rx Instructions .Route .MEDSUPPLY Qty: 1 0RF Rx Instructions: As directed ipratropium-albuterol 0.5 mg-3 mg(2.5 mg base)/3 mL solution for nebulization 3 ml inhalation Q6H PRN (Reason: wheezing) Qty: 90 0RF (DME) Walker See Rx Instructions .ROUTE .MEDSUPPLY Qty: 1 0RF Rx Instructions: As directed PreserVision AREDS 2 Plus MV 200 mcg-15 mcg- 5 mg-1 mg capsule 1 cap PO DAILY cholecalciferol (vitamin D3) 50 mcg (2,000 unit) capsule 50 mcg PO DAILY Qty: 90 1RF trazodone 100 mg tablet 100 mg PO DAILY Qty: 90 2RF Trelegy Ellipta 100-62.5-25 mcg blister with device 1 ea INHALATION DAILY Qty: 60 5RF (DME) catheter bags See Rx Instructions .Route .MEDSUPPLY Qty: 4 5RF Rx Instructions: As directed nitroglycerin [Nitrostat] 0.4 mg tablet, sublingual 0.4 mg SUBLINGUAL Q5M PRN (Reason: Chest Pain) Qty: 30 1RF tamsulosin 0.4 mg capsule 0.4 mg PO QPM Qty: 90 1RF azelastine 137 mcg (0.1 %) spray,non-aerosol 2 spray intranasal BID Qty: 30 1RF Rx Instructions: administer into each nostril omeprazole 40 mg capsule,delayed release(DR/EC) 40 mg PO DAILY Qty: 30 1RF metoprolol succinate 25 mg tablet extended release 24 hr 25 mg PO QAM Qty: 90 0RF Januvia 100 mg tablet 100 mg PO QAM Qty: 90 0RF morphine 15 mg tablet 15 mg PO Q6H PRN (Reason: pain) 30 Days Qty: 120 0RF Xtandi 80 mg tablet 160 mg PO DAILY Qty: 60 0RF glipizide 2.5 mg tablet extended release 24hr 2.5 mg PO QAM Qty: 90 1RF rosuvastatin 40 mg tablet 40 mg PO BEDTIME Qty: 90 1RF prednisone 5 mg tablet 5 mg PO BID Qty: 60 0RF ondansetron HCl 8 mg tablet 8 mg PO Q8H PRN (Reason: nausea and vomiting) Qty: 30 1RF budesonide 0.5 mg/2 mL suspension for nebulization 0.5 mg inhalation BID carbamazepine 100 mg tablet extended release 12 hr 100 mg PO BID Rx Instructions: TAKE 1 TABLET BY MOUTH TWICE DAILY metoclopramide HCl 5 mg tablet 5 mg PO TID Rx Instructions: TAKE 1 TABLET BY MOUTH THREE TIMES DAILY montelukast 10 mg tablet 10 mg PO DAILY Rx Instructions: TAKE 1 TABLET BY MOUTH EVERY DAY loratadine [Claritin] 10 mg Tablet 10 mg PO QPM Held Eliquis 5 mg tablet 5 mg PO BID Qty: 180 1RF Hold Instructions: Resume on 01/21/24. follow with surgery before resuming Discharge Orders: Discharge Order (Routine); Ordered 01/18/24 Ordered By: Soo Solis Referrals: Stew Haddad MD [Physician] - 1-3 days (We have notified your physician's clinic of the need for a follow-up appointment to be scheduled. If you have not heard from them within the next 2 business days, please call them directly. ) Jose Thomason MD [Primary Care Provider] - 01/29/24 9:30 am Discharge Diet: Usual diet Discharge Activity: Resume usual activity Patient Instructions: Constipation - Adult, Rectal Bleeding (GEN), Opioid Safety Discharge Attestations Time Spent in Discharge Care*: greater than 30 min Quality Metrics Clinical Quality Measures [ No reported AMI, CVA or VTE this stay] Coding Level of Care Code Acute Code for Chg Fwd Diagnoses Rectal bleeding K62.5
== END 2024-01-18 14:36 | disposition home or self-care (01) ==
LOC: ER 14:29 → MEDSURG 16:24
PROVIDERS: Admitting Provider Student in an Organized Health Care Education/Training Program; Emergency Provider Family Medicine; PCP Family Medicine; Visit Provider Student in an Organized Health Care Education/Training Program
DX: K62.5 Hemorrhage of anus and rectum (principal); Z79.01 Long term (current) use of anticoagulants; Z86.718 Personal history of other venous thrombosis and embolism; C61 Malignant neoplasm of prostate; Z79.82 Long term (current) use of aspirin; C79.51 Secondary malignant neoplasm of bone; E78.5 Hyperlipidemia, unspecified; E11.9 Type 2 diabetes mellitus without complications; I10 Essential (primary) hypertension; K21.9 Gastro-esophageal reflux disease without esophagitis; J44.9 Chronic obstructive pulmonary disease, unspecified; N40.1 Benign prostatic hyperplasia with lower urinary tract symptoms; Z85.850 Personal history of malignant neoplasm of thyroid; Z87.891 Personal history of nicotine dependence
CPT/HCPCS: 36415; 36416; 74177; 80053; 81001; 82962; 85014; 85018; 85025; 85610; 85730; 87077; 87086; 87186; 87493; 93005; 94640; 96374; 99285; G0378; J2470; J2543; J7512; J7626; J8597

== ENCOUNTER 2024-01-20 10:19 | Observation (INO) | payer MEDICARE, MEDICAID, SELFPAY ==
[2024-01-20] VITALS (26 sets, daily range): BP systolic 105–150; BP diastolic 65–100; PULSE 65–99; RESP 12–27; TEMP 36.4–36.6; O2SAT 87–99; BMI 27.5; BMI 27.1
--- NOTE | 2024-01-20 10:24 | ECG_ITS ---
[facility] Test Date: 2024-01-20 Pat Name: Charlie Jacobs Department: Room: Gender: Male Crane Follower: : 1945 Requested By: Jacques Rodriguez Order Number: [id number] Jessy MD: Isaías Spring M.D. Measurements Intervals [place] Rate: 82 P: 0 RI: 0 QRS: 62 QRSD: 84 T: 61 QT: 426 QTc: 499 Interpretive Statements ATRIAL FIBRILLATION MINIMAL ST DEPRESSION [0.025+ mV ST DEPRESSION] PROLONGED QT INTERVAL Compared to ECG 01/17/2024 09:44:39 ST (T wave) deviation now present Prolonged QT interval now present Sinus rhythm no longer present T-wave abnormality no longer present Electronically Signed On 01-22-2024 22:03:16 IMPREGNATOR by Isaías Spring M.D. [email or web address]
--- NOTE | 2024-01-20 10:25 | XR_ITS ---
WS: [id number] Exam: XR chest 1V portable [id number] Date/Time of Exam: 01/20/2024 10:28 AM Reason For Exam: dyspnea/cough Comparison 11/06/2023. The lungs are hyperinflated and clear. No pleural effusions. Unremarkable cardiomediastinal silhouett e. Bony sclerosis of the posterior RIGHT ninth rib unchanged in appearance. Calcified granulomas scat tered in both lungs. XR/XR chest 1V portable [id number] IMPRESSION: 1. Pulmonary hyperinflation, no acute process.
--- NOTE | 2024-01-20 10:25 | CT_ITS ---
WS: [id number] CT HEAD NONCONTRAST HISTORY: Altered mental status TECHNIQUE: Contiguous axial imaging performed through the brain. Bone and soft tissue windows. Sagitt al and coronal reformats reviewed. All CT scans at [facility] use at least one of these dose optimization techniques: automated exposure control; mA and/or kV adjustment per patient size (includ es targeted exams where dose is matched to clinical indication); or iterative reconstruction. DLP: 1131.01 mGy.cm COMPARISON: 10/31/2023 Mild diffuse cerebral atrophy and small vessel disease. No acute infarct. No hemorrhage. Mild cerebellar atrophy. No lacunar infarcts. No inferior displacement of the cerebellar tonsils. Ventricles: Normal size with no hydrocephalus. Paranasal sinuses: As visualized are clear. Mastoid air cells: Well pneumatized. Calvarium and scalp: Skull is intact with no soft tissue edema or swelling. CT/CT head wo con* [id number] IMPRESSION: 1. No acute intracranial hemorrhage or edema. 2. Mild cerebral and cerebellar atrophy and small vessel disease.
--- NOTE | 2024-01-20 10:32 | W.ED.GENADLT ---
HPI - General Adult General: Chief complaint: Syncope Stated complaint: Rapid Response Time Seen by Provider: 01/20/24 10:24 History of Present Illness: 70-year-old male presents emergency room with complaints of weakness. He is extremely anxious and stuttering. The rapid response at surgery clinic. Would recently hospitalized him for lower GI bleed his hemoglobin remained stable his Eliquis was stopped he declined endoscopy and was following up with surgery. While there he reported not feeling well became anxious had some altered mental status. Patient has a known history of prostate cancer. Glucose 120 on arrival. Associated symptoms: Deny chest pain, dyspnea or rash Related Data Home Medications Medication Instructions Recorded Confirmed aspirin 81 mg tablet,delayed 81 mg PO DAILY 03/29/19 01/20/24 release mv-mn-folic 200 mcg-vit K 15 1 cap PO DAILY 04/09/23 01/20/24 mcg-lutein 5 mg-zeaxanthin 1 mg capsule (PreserVision AREDS 2 Plus Multivit) loratadine 10 mg tablet (Claritin) 10 mg PO QPM 07/31/23 01/20/24 budesonide 0.5 mg/2 mL suspension 0.5 mg inhalation BID 01/17/24 01/20/24 for nebulization carbamazepine 100 mg 100 mg PO BID 01/17/24 01/20/24 tablet,extended release,12 hr metoclopramide HCl 5 mg tablet 5 mg PO TID 01/17/24 01/20/24 montelukast 10 mg tablet 10 mg PO DAILY 01/17/24 01/20/24 finasteride 5 mg tablet 5 mg PO DAILY 01/20/24 01/20/24 Previous Rx's Medication Instructions Recorded nitroglycerin 0.4 mg sublingual 0.4 mg sublingual Q5M PRN Chest 07/21/22 tablet (Nitrostat) Pain #30 tabs Walker #1 ea 07/28/22 apixaban 5 mg tablet (Eliquis) 5 mg PO BID #180 tabs 08/03/23 tamsulosin 0.4 mg capsule 0.4 mg PO QPM #90 caps 09/30/23 catheter bags #4 ea 10/08/23 cholecalciferol (vitamin D3) 50 50 mcg PO DAILY #90 caps 10/13/23 mcg (2,000 unit) capsule fluticasone fur. 100 mcg-umeclid 1 ea inhalation DAILY #60 ea 10/13/23 62.5 mcg-vilant 25 mcg inhalat.powder (Trelegy Ellipta) trazodone 100 mg tablet 100 mg PO DAILY #90 tabs 10/13/23 ipratropium 0.5 mg-albuterol 3 mg 3 ml inhalation Q6H PRN wheezing 11/06/23 (2.5 mg base)/3 mL nebulization #90 mL soln nebulizer with tubing #1 ea 11/06/23 azelastine 137 mcg (0.1 %) nasal 2 spray intranasal BID #30 mL 11/18/23 spray omeprazole 40 mg capsule,delayed 40 mg PO DAILY #30 caps 11/18/23 release metoprolol succinate 25 mg 25 mg PO QAM #90 tabs 12/08/23 tablet,extended release 24 hr sitagliptin phosphate 100 mg 100 mg PO QAM #90 tabs 12/08/23 tablet (Januvia) morphine 15 mg immediate release 15 mg PO Q6H PRN pain 30 days #120 12/09/23 tablet tabs enzalutamide 80 mg tablet (Xtandi) 160 mg (2 x 80 mg) PO DAILY #60 12/24/23 tabs glipizide 2.5 mg tablet, extended 2.5 mg PO QAM #90 tabs 12/28/23 release 24 hr rosuvastatin 40 mg tablet 40 mg PO BEDTIME #90 tabs 12/29/23 ondansetron HCl 8 mg tablet 8 mg PO Q8H PRN nausea and 01/14/24 vomiting #30 tabs prednisone 5 mg tablet 5 mg PO BID #60 tabs 01/14/24 levothyroxine 175 mcg tablet See Rx Instructions .Route 01/18/24 .COMPLEX #90 tabs polyethylene glycol 3350 17 gram 17 g PO DAILY #30 ea 01/18/24 oral powder packet (Miralax) Allergies Allergy/AdvReac Type Severity Reaction Status Date / Time vancomycin Allergy HIVES,RASH Verified 01/20/24 09:54 Review of Systems Const: Denies: fever(s) or chills Card: Denies: chest pain Resp: Denies: dyspnea GI: Denies: abdominal pain : Denies: dysuria, urinary frequency or urinary urgency Musc: Denies: neck pain or back pain Skin/Breast: Denies: rash PFSH ED PFSH: Medical History Papillary thyroid carcinoma Suprapubic catheter Prostate cancer metastatic to bone Deep vein thrombosis (DVT) of left lower extremity Nausea & vomiting Weight loss Lower urinary tract symptoms (LUTS) Cancer related pain Urinary tract infection Right kidney mass Burning sensation of feet Lumbar stenosis with neurogenic claudication Intervertebral disc disorder with radiculopathy of lumbosacral region Metastasis to bone Dyslipidemia History of diverticulitis Type 2 diabetes mellitus, without long-term current use of insulin Benign essential HTN Post-surgical hypothyroidism Insomnia GERD (gastroesophageal reflux disease) COPD (chronic obstructive pulmonary disease) 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 Other CAD (coronary artery disease) Social History Smoking and tobacco/nicotine status: former use of tobacco/nicotine Quit status (tobacco/nicotine): has quit using Year quit tobacco: 2022 Former quit date comment: stopped in February of this year Alcohol intake: never Substance/Drug Use: never Lives independently: Yes Household members: spouse Marital status: Current occupational status: retired Physical Exam Const: GENERAL APPEARANCE: cooperative ORIENTATION/CONSCIOUSNESS: Yes awake, Yes oriented to person (Patient remembers me by name on seeing me) and Yes oriented to place (Patient aware he was at the doctor's office and is now in the ER) HENMT: COMMON NORMALS: normocephalic, atraumatic and hearing grossly normal bilaterally HEAD & SCALP: normocephalic and atraumatic Resp: COMMON NORMALS: normal respiratory effort, No retractions, No use of accessory muscles and clear to auscultation bilaterally AUSCULTATION: clear to auscultation bilaterally Cardio: COMMON NORMALS: regular rate, regular rhythm and No murmurs present (Cardio) RATE: regular rate RHYTHM: regular rhythm GI: COMMON NORMALS: Soft to palpation and No hepatosplenomegaly present AUSCULTATION: Yes normoactive bowel sounds PALPATION: Yes Soft to palpation, No Tenderness to palpation present (GI), No Guarding due to palpation present (GI) and Yes No hepatosplenomegaly present Extremity: COMMON NORMALS: normal to inspection, capillary refill normal, no clubbing, cyanosis or edema, no calf tenderness and no pedal edema Neuro: SENSORIUM/ORIENTATION: Yes oriented to person (Patient remembers me by name on seeing me) and Yes oriented to place (Patient aware he was at the doctor's office and is now in the ER) OTHER: No focal or lateralizing defects moves all extremities good facial symmetry. Patient is stuttering but does not have any apparent slurring of his speech. Normal sensation all extremities. Repeat exam patient's stuttering is resolved after receiving IV Ativan when discussing other symptoms he briefly began having stuttering again. Psych: SPEECH: Yes Other speech symptoms (Stuttering) MOOD & AFFECT: Yes anxious Skin: COMMON NORMALS: no rashes or lesions noted GENERAL SKIN EXAM: no rashes or lesions noted Course Vital Signs: Vital signs: Vital Signs Temperature 97.9 F 01/20/24 10:21 Pulse Rate 74 01/20/24 13:15 Respiratory Rate 12 01/20/24 13:15 Blood Pressure 144/100 01/20/24 13:15 Pulse Oximetry 97 01/20/24 13:15 Oxygen Delivery Me thod Room Air 01/20/24 10:21 MDM - General Adult Medical Decision Making 1104 patient initially seen and evaluated on the [facility] stretcher when he first arrived. He is stuttering exam does not show any lateralizing symptoms. Few minutes later nursing reported confusion and difficulty with speech. Patient reexamined he is unchanged from initial exam. Initial CT of the head does not show any bleed. Patient complaining of being cold and given a blanket. 1110 repeat exam. After patient be given Ativan his stuttering has improved. Noted on the telemetry that his oxygen saturation has been hovering around 90%. Discussing with the patient and his he is normally on 2 L by nasal cannula at home which I applied to him. 1129 patient has no symptoms at this time. He is stuttering has resolved. He states he is feeling a little better. 1231 oxygen sats noted to be borderline again. When I went in the room to check on the patient his oxygen was not on him. It was replaced at his usual 2 L/min his oxygen sat immediately improved to 98% his stuttering has not recurred. Repeat exam patient has equal manager of internal strength weakness bilaterally in the lower extremities which is equal sensation of the lower and upper extremities normal no facial asymmetry. Waiting on a second troponin. 1324 patient resting comfortably. Vital signs are normal he satting 97% on 2 L of oxygen he has no focal deficits repeat neuroexam is normal. Will admit to observation for syncopal episode. Discussed with Dr. Solis orders written. Dr. Solis will address the urine culture from the previous hospitalization and the current abnormal urine. Likely the patient is colonized because of his suprapubic catheter Medical Records I reviewed the patient's medical records. Lab Data I reviewed the patient's lab results. 01/20/24 10:35 01/20/24 10:35 Radiology Impressions Chest X-Ray 01/20/24 10:25 IMPRESSION: 1. Pulmonary hyperinflation, no acute process. Head CT 01/20/24 10:25 IMPRESSION: 1. No acute intracranial hemorrhage or edema. 2. Mild cerebral and cerebellar atrophy and small vessel disease. Laboratory Results WBC 5.22 10^3/uL (3.29-11.43) 01/20/24 10:35 RBC 4.19 10^6/uL (3.85-5.65) 01/20/24 10:35 Hgb 13.00 g/dL (11.27-16.99) 01/20/24 10:35 Hct 39.3 % (37-53) 01/20/24 10:35 MCV 93.8 fl (82-101) 01/20/24 10:35 MCH 31.0 pg (27-33) 01/20/24 10:35 MCHC 33.1 g/dL (30-55) 01/20/24 10:35 RDW 15.7 % (12.1-15.1) H 01/20/24 10:35 Plt Count 167 10^3/cmm (157-399) 01/20/24 10:35 MPV 9.9 fL (7.4-10.4) 01/20/24 10:35 Neut % (Auto) 77.6 % 01/20/24 10:35 Lymph % (Auto) 11.3 % 01/20/24 10:35 [place] % (Auto) 9.2 % 01/20/24 10:35 Eos % (Auto) 1.1 % 01/20/24 10:35 Baso % (Auto) 0.4 % 01/20/24 10:35 Neut # (Auto) 4.05 10^3/uL (1.8-7.7) 01/20/24 10:35 Lymph # (Auto) 0.6 10^3/uL (0.8-4.8) L 01/20/24 10:35 [place] # (Auto) 0.5 10^3/uL (0.2-0.9) 01/20/24 10:35 Eos # (Auto) 0.1 10^3/uL (0.0-0.8) 01/20/24 10:35 Baso # (Auto) 0.0 10^3/uL (0.0-0.1) 01/20/24 10:35 Nucleated RBC % (auto) 0 % 01/20/24 10:35 Nucleated RBCs # 0.0 /100WBC 01/20/24 10:35 Sodium 137 mmol/L (136-145) 01/20/24 10:35 Potassium 3.6 mmol/L (3.5-5.1) 01/20/24 10:35 Chloride 102 mmol/L (98-107) 01/20/24 10:35 Carbon Dioxide 24 mmol/L (22-29) 01/20/24 10:35 Anion Gap 14.6 (5-19) 01/20/24 10:35 BUN 9 mg/dL (8-23) 01/20/24 10:35 Creatinine 0.8 mg/dL (0.7-1.2) 01/20/24 10:35 GFR Calculation Not Reportable 01/20/24 10:35 Glucose 104 mg/dL (65-115) 01/20/24 10:35 Calculated Osmolality 283 mOsm/kg (285-295) L 01/20/24 10:35 Calcium 8.6 mg/dL (8.5-10.5) 01/20/24 10:35 Total Bilirubin 0.4 mg/dL (0.15-1.2) 01/20/24 10:35 AST 13 U/L (0-40) 01/20/24 10:35 ALT 7 U/L (0-41) 01/20/24 10:35 Alkaline Phosphatase 85 U/L (40-130) 01/20/24 10:35 Troponin T Baseline 20 ng/L (0-15) H 01/20/24 10:35 Troponin T 120 Minute 20.54 ng/L (0-15) H 01/20/24 12:40 Delta Troponin T 0.54 ABS# (0-10) 01/20/24 12:40 Total Protein 6.4 g/dL (6.6-8.7) L 01/20/24 10:35 Albumin 3.4 g/dL (3.5-5.2) L 01/20/24 10:35 Globulin 3.0 g/dL (1.3-4.6) 01/20/24 10:35 Lipase 29 U/L (13-60) 01/20/24 10:35 Urine Color Yellow (Yellow) 01/20/24 11:21 Urine Appearance Turbid (CLEAR) A 01/20/24 11:21 Urine pH 7.5 (5-7) 01/20/24 11:21 Ur Specific [place] 1.023 (1.005-1.030) 01/20/24 11:21 Urine Protein 2+ (Negative) A 01/20/24 11:21 Urine Glucose (UA) Negative (Normal) 01/20/24 11:21 Urine Ketones Negative (Negative) 01/20/24 11: Urine Blood 3+ (Negative) A 01/20/24 11:21 Urine Nitrate Positive (Negative) A 01/20/24 11:21 Urine Bilirubin Negative (Negative) 01/20/24 11:21 Urine Urobilinogen 1.0 mg/dL (Negative) 01/20/24 11:21 Ur Leukocyte Esterase 1+ (Negative) A 01/20/24 11:21 Urine RBC >100 /hpf (0-2) H 01/20/24 11:21 Urine WBC 51-100 /hpf (0-5) H 01/20/24 11:21 Ur Squamous Epith Cells 0-5 /hpf (0-5) 01/20/24 11:21 Amorphous Sediment Not Reportable 01/20/24 11:21 Urine Bacteria 4+ /hpf (NONE) H 01/20/24 11:21 Hyaline Casts 8.67 /lpf 01/20/24 11:21 Discharge Plan Discharge Patient Disposition: Placed in Observation Clinical Impression: Syncope, Suprapubic catheter Type 2 diabetes mellitus, without long-term current use of insulin Qualifiers: Diabetes mellitus complication status: without complication Qualified Code(s): E11.9 - Type 2 diabetes mellitus without complications Coding Level of Care Code ED Director Telehealth for Gale Callahan
[2024-01-20 10:44] LABS: Basophils % 0.4 %; Eosinophils # 0.1 10^3/uL (0.0-0.8); Eosinophils % 1.1 %; Hematocrit 39.3 % (37-53); Lymphocytes # 0.6 10^3/uL (0.8-4.8); Lymphocytes % 11.3 %; Mean Corpuscular HGB Conc 33.1 g/dL (30-55); Mean Corpuscular Volume 93.8 fl (82-101); Mean Platelet Volume 9.9 fL (7.4-10.4); Monocytes # 0.5 10^3/uL (0.2-0.9); Monocytes % 9.2 %; Neutrophils # 4.05 10^3/uL (1.8-7.7); Neutrophils % 77.6 %; Nucleated Red Blood Cells % 0 %; Platelet Count 167 10^3/cmm (157-399); Red Blood Count 4.19 10^6/uL (3.85-5.65); Red Cell Distribution Width 15.7 % (12.1-15.1); White Blood Count 5.22 10^3/uL (3.29-11.43)
--- NOTE | 2024-01-20 10:44 | PC.PHAR ---
patient was just seen two days ago was about to go into surgery when emergent happened, all meds are still current he was to stop eliquis for the surgery then restart after it
[2024-01-20 11:00] LABS: Alanine Aminotransferase 7 U/L (0-41); Albumin Level 3.4 g/dL (3.5-5.2); Alkaline Phosphatase 85 U/L (40-130); Anion Gap 14.6 (5-19); Aspartate Amino Transferase 13 U/L (0-40); Blood Urea Nitrogen 9 mg/dL (8-23); Calcium 8.6 mg/dL (8.5-10.5); Carbon Dioxide 24 mmol/L (22-29); Chloride 102 mmol/L (98-107); Creatinine Clr Calc Pharmacy 97.5381; Glucose 104 mg/dL (65-115); Osmolality Calculated 283 mOsm/kg (285-295); Potassium 3.6 mmol/L (3.5-5.1); Sodium 137 mmol/L (136-145); Total Bilirubin 0.4 mg/dL (0.15-1.2); Total Protein 6.4 g/dL (6.6-8.7)
[2024-01-20] MEDS: LORazepam 2 mg/mL INJ 1 mL 1 MG IVP (11:00)
[2024-01-20 11:16] LABS: Lipase 29 U/L (13-60)
[2024-01-20 11:20] LABS: Troponin(5th) Baseline 20 ng/L (0-15)
[2024-01-20 11:33] LABS: Bilirubin Urine Negative (Negative); Blood Urine 3+ (Negative); Glucose Urine UA Negative (Normal); Ketones Urine Negative (Negative); Leukocyte Esterase Urine 1+ (Negative); Nitrate Urine Positive (Negative); Protein Urine 2+ (Negative); Specific Gravity, Urine 1.023 (1.005-1.030); Urine Appearance Turbid (CLEAR); Urine Color Yellow (Yellow); pH Urine 7.5 (5-7)
[2024-01-20 11:38] LABS: Add Urine Microscopic? YES; Bacteria Urine 4+ /hpf; Hyaline Casts Urine 8.67 /lpf; RBC Urine >100 /hpf (0-2); Squamous Epithelial Cell Urine 0-5 /hpf (0-5); WBC Urine 51-100 /hpf (0-5)
[2024-01-20 11:40] LABS: Add Urine Culture? Yes
--- NOTE | 2024-01-20 12:56 | ECG_ITS ---
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 Measurements Intervals [place] Rate: 70 P: 0 AK: 0 QRS: 42 QRSD: 81 T: 64 QT: 359 QTc: 388 Interpretive Statements ATRIAL FIBRILLATION NONSPECIFIC T-WAVE ABNORMALITY ABNORMAL RHYTHM ECG Compared to ECG 01/20/2024 10:24:22 T-wave abnormality now present ST (T wave) deviation no longer present Prolonged QT interval no longer present Electronically Signed On 01-22-2024 22:18:37 CORD SPLICER by Isaías Spring M.D. [email or web address]
[2024-01-20 13:25] LABS: Troponin 5 2HR 20.54 ng/L (0-15); Troponin 5 2HR Delta 0.54 ABS# (0-10)
--- NOTE | 2024-01-20 14:29 | P.HP_ITS ---
Providers/Chief Complaint 2 Admitting Physician: Soo Solis MD Primary Care Provider: Jose Thomason MD Chief Complaint: Rapid Response History of Present Illness Charlie Jacobs is a 78 year old male with PMH A fib on Eliquis recently admitted here for rectal Hb with stable Hb and hemodynamics, discharged to see general surgery as outpatient in 2 days. He presents with near syncope event at the general [facility] office today. Patient became suddenky pale, diaphoretic and dizzy and was brought to the ER. Ct head without acute changes. No h/o palpitations, nausea, vomiting prior to event. no chest pain. no current bleeding Review of Systems 2 General: Reports: 10 or more systems reviewed and unremarkable except in HPI and below Const: Denies: fever(s), chills or body aches Eyes: Denies: change in vision, blurry vision or photophobia ENMT: Reports: hoarseness; Denies: throat pain, enlarged tonsils, odynophagia or nasal congestion Card: Denies: chest pain, palpitations, irregular heart rhythm, edema, swelling of feet/ankles, lightheadedness, pre-syncope, dyspnea on exertion or orthopnea Resp: Denies: dyspnea, productive cough, non-productive cough, wheezing, stridor, pain on inspiration, change in phlegm color, hemoptysis or chest congestion GI: Denies: abdominal pain, nausea, vomiting, hematemesis, coffee ground emesis, dysphagia, heartburn, diarrhea, constipation, GI cramping, change in stool character, hematochezia or melena : Denies: flank pain, dysuria, urinary frequency, urinary urgency, urinary hesitancy or hematuria Musc: Denies: neck pain, back pain, extremity pain, joint swelling, joint warmth or deformity Neuro: Denies: headache(s), numbness in extremities, weakness in extremities, sensory changes, difficulty walking, frequent falls, dizziness, vertigo, behavioral changes, Slurred speech present or seizure-like activity Psych: Denies: anxiety, depression, suicidal ideation or homicidal ideation Endo: Denies: polyuria, polydipsia, tired all the time, cold intolerance or hot flashes Wilfrid/Lymph: Denies: easy bruising or easy bleeding Medications/Allergies Home Medications Medication Instructions Recorded Confirmed Last Taken Type aspirin 81 mg tablet,delayed 81 mg PO DAILY 03/29/19 01/20/24 11/06/23 06:00 History release nitroglycerin 0.4 mg sublingual 0.4 mg sublingual Q5M PRN Chest 07/21/22 01/20/24 05/24/23 Rx tablet (Nitrostat) Pain #30 tabs Walker #1 ea 07/28/22 01/20/24 05/24/23 Rx mv-mn-folic 200 mcg-vit K 15 1 cap PO DAILY 04/09/23 01/20/24 11/06/23 History mcg-lutein 5 mg-zeaxanthin 1 mg capsule (PreserVision AREDS 2 Plus Multivit) loratadine 10 mg tablet (Claritin) 10 mg PO QPM 07/31/23 01/20/24 11/05/23 History apixaban 5 mg tablet (Eliquis) 5 mg PO BID #180 tabs 08/03/23 01/20/24 11/06/23 07:00 Rx tamsulosin 0.4 mg capsule 0.4 mg PO QPM #90 caps 09/30/23 01/20/24 11/05/23 Rx catheter bags #4 ea 10/08/23 01/20/24 Unknown Rx cholecalciferol (vitamin D3) 50 50 mcg PO DAILY #90 caps 10/13/23 01/20/24 11/06/23 Rx mcg (2,000 unit) capsule fluticasone fur. 100 mcg-umeclid 1 ea inhalation DAILY #60 ea 10/13/23 01/20/24 11/06/23 Rx 62.5 mcg-vilant 25 mcg inhalat.powder (Trelegy Ellipta) trazodone 100 mg tablet 100 mg PO DAILY #90 tabs 10/13/23 01/20/24 11/05/23 Rx ipratropium 0.5 mg-albuterol 3 mg 3 ml inhalation Q6H PRN wheezing 11/06/23 01/20/24 Unknown Rx (2.5 mg base)/3 mL nebulization #90 mL soln nebulizer with tubing #1 ea 11/06/23 01/20/24 Unknown Rx azelastine 137 mcg (0.1 %) nasal 2 spray intranasal BID #30 mL 11/18/23 01/20/24 Unknown Rx spray omeprazole 40 mg capsule,delayed 40 mg PO DAILY #30 caps 11/18/23 01/20/24 Unknown Rx release metoprolol succinate 25 mg 25 mg PO QAM #90 tabs 12/08/23 01/20/24 Unknown Rx tablet,extended release 24 hr sitagliptin phosphate 100 mg 100 mg PO QAM #90 tabs 12/08/23 01/20/24 Unknown Rx tablet (Januvia) morphine 15 mg immediate release 15 mg PO Q6H PRN pain 30 days #120 12/09/23 01/20/24 Unknown Rx tablet tabs glipizide 2.5 mg tablet, extended 2.5 mg PO QAM #90 tabs 12/28/23 01/20/24 Unknown Rx release 24 hr rosuvastatin 40 mg tablet 40 mg PO BEDTIME #90 tabs 12/29/23 01/20/24 Unknown Rx ondansetron HCl 8 mg tablet 8 mg PO Q8H PRN nausea and 01/14/24 01/20/24 Unknown Rx vomiting #30 tabs prednisone 5 mg tablet 5 mg PO BID #60 tabs 01/14/24 01/20/24 Unknown Rx budesonide 0.5 mg/2 mL suspension 0.5 mg inhalation BID 01/17/24 01/20/24 Unknown History for nebulization carbamazepine 100 mg 100 mg PO BID 01/17/24 01/20/24 Unknown History tablet,extended release,12 hr metoclopramide HCl 5 mg tablet 5 mg PO TID 01/17/24 01/20/24 Unknown History montelukast 10 mg tablet 10 mg PO DAILY 01/17/24 01/20/24 Unknown History levothyroxine 175 mcg tablet See Rx Instructions .Route 01/18/24 01/20/24 Unknown Rx .COMPLEX #90 tabs polyethylene glycol 3350 17 gram 17 g PO DAILY #30 ea 01/18/24 01/20/24 Unknown Rx oral powder packet (Miralax) finasteride 5 mg tablet 5 mg PO DAILY 01/20/24 01/20/24 Unknown History enzalutamide 80 mg tablet (Xtandi) 80 mg PO DAILY #30 tabs 01/21/24 01/21/24 Unknown Rx Allergies Allergy/AdvReac Type Severity Reaction Status Date / Time vancomycin Allergy HIVES,RASH Verified 01/20/24 09:54 PFSH Acute 2 PFSH: Medical History Papillary thyroid carcinoma Suprapubic catheter Prostate cancer metastatic to bone Deep vein thrombosis (DVT) of left lower extremity Nausea & vomiting Weight loss Lower urinary tract symptoms (LUTS) Cancer related pain Urinary tract infection Right kidney mass Burning sensation of feet Lumbar stenosis with neurogenic claudication Intervertebral disc disorder with radiculopathy of lumbosacral region Metastasis to bone Dyslipidemia History of diverticulitis Type 2 diabetes mellitus, without long-term current use of insulin Benign essential HTN Post-surgical hypothyroidism Insomnia GERD (gastroesophageal reflux disease) COPD (chronic obstructive pulmonary disease) 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 Other CAD (coronary artery disease) Social History Smoking and tobacco/nicotine status: former use of tobacco/nicotine Quit status (tobacco/nicotine): has quit using Year quit tobacco: 2022 Former quit date comment: stopped in February of this year Alcohol intake: never Substance/Drug Use: never Lives independently: Yes Household members: spouse Marital status: Current occupational status: retired Vitals/I&O/Wt Last Vital Signs Temp 97.9 F 01/20/24 10:21 Pulse 74 01/20/24 13:15 Resp 12 01/20/24 13:15 BP 144/100 01/20/24 13:15 Pulse Ox 97 01/20/24 13:15 O2 Del Method Room Air 01/20/24 10:21 Weight last 48 hrs Weight 99.79 kg Physical Exam 2 Narrative: General: No acute distress, AO x3 HEENT: PERRLA, pupils bilaterally equal and reactive, pallors not present Chest: Normal vesicular breath sounds, no added sounds, equal good air entry bilaterally CVS: S1-S2 regular, no murmurs, no tachycardia, no gallops, no rubs Abdomen: Soft, nontender, no organomegaly, bowel sounds present Neuro: No focal deficits, no facial deformity, AO x3, power 5/5 in all limbs Extremities: Healthy surgical dressing present on the right hip, mild tenderness, soft no erythema. Data 01/21/24 06:54 01/21/24 06:54 A&P Assessment and plan (1) Syncope: admit to med surg with tele for observation. monitor for underlying arrhythmias echocardiogram carotid doppler ct head without acute abnormalities (2) GI bleed: recent gi bleed hb stable if syncope evaluation non revealing, may need to evaluate for active bleeding holding brett Attestations 2 Medical Necessity Statement*: less than 2 midnight stay anticipated Coding Level of Care Code Acute Code for [facility] Fwd Diagnoses Syncope R55 GI bleed K92.2
--- NOTE | 2024-01-20 17:12 | USCV_ITS ---
Charlie Jacobs Age: 78 Gender: M : 1945 Exam Date: 01/20/2024 18:46 Ordering Phys: Soo Solis MD Technologist: [email or web address] Exam Location: [facility] Indication: syncope Risk Factors: syncope Previous Vascular Surgery: none Right Brachial BP: 150 / 95 Left Brachial BP: / Right Left Velocity (cm/s) Spectral Plaque Velocity (cm/s) Spectral Plaque Syst/Diast Broadening Syst/Diast Broadening 86.70/ 10.20 Min Homo Prox CCA 69.10 / 9.00 Min Homo 64.60/ 12.80 Min Hetro Mid CCA 70.20 / 11.10 Min Hetro 59.50/ 10.20 Min Lonnie Distal CCA 53.80 / 10.10 Min Lonnie 28.10/ 9.30 Min Hetro Prox ICA 53.80 / 13.30 Min Hetro 45.00/ 8.40 Min Homo Mid ICA 68.00 / 18.80 Min Homo 68.20/ 20.50 Min Homo Distal ICA 60.20 / 13.30 Min Homo 90.60 Mod Hetro ECA 80.00 Mod Hetro 1.10 ICA/CCA 1.30 Antegrade Vertebral Antegrade 53.20/ 14.90 cm/s 40.90/ 14.50 cm/s Bi Subclavian Tri 73.90 58.50 FINDINGS Comparison: none available. No significant elevation of systolic or diastolic velocities. Diffuse, mild bilateral scattered calcified plaque and intimal thickening throughout the common carotid arteries and extending through the bifurcation. Antegrade vertebral arteries. CONCLUSIONS Bilateral ICA stenosis less than 50%. Mild carotid atherosclerosis. Dr. Eulalia Jara DO (Electronically Signed) Final Date: 21 January 2024 09:56 S
--- NOTE | 2024-01-20 17:12 | USCV_ITS ---
Charlie Jacobs Age: 78 Gender: M : 1945 Exam Date: 01/20/2024 19:13 Ordering Phys: Soo Solis MD Technologist: FARTUN [place]am Location[place] [facility] [place]: syncope BP: 150 / 95 HR: 103 Rhythm: mostly sinus rhythem with strings of atrial fibrillation Technical Quality: Adequate MEASUREMENTS (Male / Female) Normal Values 2D ECHO LV Diastolic Diameter PLAX 4.1 cm 4.2 - 5.9 / 3.9 - 5.3 cm IVS Diastolic Thickness 1.2 cm 0.6 - 1.0 / 0.6 - 0.9 cm IVS Systolic Thickness 1.7 cm LVPW Diastolic Thickness 1.2 cm 0.6 - 1.0 / 0.6 - 0.9 cm LVPW Systolic Thickness 2.0 cm LVOT Diameter 2.0 cm LV Ejection Fraction 2D Teich 55.8 % LV Ejection Fraction MOD 4C 55.8 % LV Ejection Fraction MOD 2C 65.3 % LV Ejection Fraction 2C AL 64.5 % LA Diameter 3.5 cm Aorta at Sinotubular Diameter 3.3 cm IVC Diameter 1.5 cm M-MODE LA Ao Ratio MM 1.2 AV Cusp Separation MM 1.7 cm DOPPLER AV Peak Velocity 198.0 cm/s LVOT Peak Velocity 116.0 cm/s AV Area Cont Eq vti 2.2 cm squared AV Area Cont Eq pk 1.8 cm squared MV Peak Velocity 109.0 cm/s MV Area PHT 3.4 cm squared TR Peak Velocity 259.0 cm/s TR Peak Gradient 26.8 mmHg TV Peak E Velocity 46.0 cm/s PV Peak Velocity 102.0 cm/s FINDINGS Left Ventricle Left ventricle is normal in size. LV systolic function is normal with EF of 60 to 65%. No regional wall motion abnormalities are seen. Grade 1 diastolic dysfunction. Right Ventricle Normal in size and function Right Atrium Normal in size Left Atrium Normal in size Mitral Valve Structurally normal mitral valve. Mild mitral regurgitation. Aortic Valve Aortic valve is thickened. No significant stenosis . Tricuspid Valve Mild tricuspid regurgitation. Pulmonary artery systolic pressure is normal. Pulmonic Valve Not well visualized Pericardium Normal Aorta Normal in size IVC Appears to be normal CONCLUSIONS LV systolic function is normal with EF of 60 to 65%. Grade 1 diastolic dysfunction Mild mitral regurgitation. Mild tricuspid regurgitation. No comparison studies are available. Isaías Spring MD (Electronically Signed) Final Date: 21 January 2024 07:35 S
[2024-01-20 17:29] LABS: Troponin 5 6HR 21.87 ng/L (0-15); Troponin 5 6HR Delta 1.87 ng/L (0-12)
--- NOTE | 2024-01-20 17:41 | ECG_ITS ---
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 Measurements Intervals [place] Rate: 79 P: 0 DE: 0 QRS: 73 QRSD: 85 T: 95 QT: 336 QTc: 386 Interpretive Statements SINUS RHYTHM WITH SINUS ARRHYTHMIA Electronically Signed On 01-22-2024 22:16:53 PROVIDER ENGAGEMENT EXECUTIVE by Isaías Spring M.D. [email or web address]/store/[id number]
[2024-01-20] MEDS: carBAMazepine XR (12 HR) 100 mg Tablet PO (17:50)
[2024-01-20] MEDS: tamsulosin 0.4 mg Capsule PO (17:50)
[2024-01-20] MEDS: predniSONE 5 mg Tablet PO (17:50)
[2024-01-20] MEDS: atorvastatin 40 mg Tablet PO (19:52)
[2024-01-20] MEDS: metoclopramide 10 mg Tablet 5 MG PO (19:52)
[2024-01-20] MEDS: budesonide 0.5 mg/2 mL Neb INHALATION (20:25)
[2024-01-20 21:51] LABS: C.Diff PCR (Lab) NEGATIVE (Negative)
[2024-01-20] MEDS: trazodone 100 mg Tablet PO (22:59)
[2024-01-20] MEDS: morphine IR 15 mg Tablet PO (22:59)
[2024-01-20 23:06] LABS: Glucose Point of Care 121 mg/dL (70-110)
--- NOTE | 2024-01-20 23:58 | PC.NURSE ---
Patient asking for saline nasal spray. This is not available in any Pyxis in the hospital and pharmacy is currently closed.
[2024-01-21] VITALS (8 sets, daily range): BP systolic 127–166; BP diastolic 71–100; PULSE 55–79; RESP 15–18; TEMP 36.4–36.7; O2SAT 94–98
--- NOTE | 2024-01-21 01:20 | ECG_ITS ---
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 Measurements Intervals [place] Rate: 69 P: 0 HI: 0 QRS: 33 QRSD: 83 T: 62 QT: 425 QTc: 456 Interpretive Statements SINUS RHYTHM WITH SINUS ARRHYTHMIA Electronically Signed On 01-22-2024 22:12:52 QUANTITATIVE DEVELOPER by Isaías Spring M.D. [email or web address] [email or web address]/store/[id number]
[2024-01-21 07:08] LABS: Basophils % 0.4 %; Eosinophils # 0.1 10^3/uL (0.0-0.8); Eosinophils % 2.3 %; Hematocrit 34.4 % (37-53); Lymphocytes # 0.9 10^3/uL (0.8-4.8); Lymphocytes % 34.5 %; Mean Corpuscular HGB Conc 32.3 g/dL (30-55); Mean Corpuscular Hemoglobin 30.7 pg (27-33); Mean Corpuscular Volume 95.3 fl (82-101); Mean Platelet Volume 10.6 fL (7.4-10.4); Monocytes # 0.4 10^3/uL (0.2-0.9); Monocytes % 15.3 %; Neutrophils # 1.23 10^3/uL (1.8-7.7); Neutrophils % 47.1 %; Nucleated Red Blood Cells % 0 %; Platelet Count 149 10^3/cmm (157-399); Red Blood Count 3.61 10^6/uL (3.85-5.65); Red Cell Distribution Width 15.4 % (12.1-15.1); White Blood Count 2.61 10^3/uL (3.29-11.43)
[2024-01-21 07:27] LABS: Alanine Aminotransferase 6 U/L (0-41); Alkaline Phosphatase 74 U/L (40-130); Anion Gap 12.8 (5-19); Aspartate Amino Transferase 11 U/L (0-40); Blood Urea Nitrogen 7 mg/dL (8-23); Calcium 8.1 mg/dL (8.5-10.5); Carbon Dioxide 25 mmol/L (22-29); Chloride 106 mmol/L (98-107); Creatinine Clr Calc Pharmacy 97.0498; Globulin 2.3 g/dL (1.3-4.6); Glucose 126 mg/dL (65-115); Magnesium 1.8 mg/dL (1.7-2.3); Osmolality Calculated 290 mOsm/kg (285-295); Potassium 3.8 mmol/L (3.5-5.1); Sodium 140 mmol/L (136-145); Total Bilirubin 0.4 mg/dL (0.15-1.2); Total Protein 5.3 g/dL (6.6-8.7)
[2024-01-21] MEDS: ondansetron 2 mg/ML SDV 2 mL 4 MG IVP (08:56)
[2024-01-21] MEDS: montelukast sodium 10 mg Tablet PO (09:52)
[2024-01-21] MEDS: aspirin 81 mg EC Tablet PO (09:52)
[2024-01-21] MEDS: finasteride 5 mg Tablet PO (09:52)
[2024-01-21] MEDS: metoclopramide 10 mg Tablet 5 MG PO ×2 (09:52→14:45)
[2024-01-21] MEDS: metoprolol succinate ER (24 HR) 25 mg Tablet PO (09:53)
[2024-01-21] MEDS: pantoprazole DR 40 mg Tablet PO (09:53)
[2024-01-21] MEDS: predniSONE 5 mg Tablet PO ×2 (09:53→17:55)
[2024-01-21] MEDS: carBAMazepine XR (12 HR) 100 mg Tablet PO ×2 (09:53→17:55)
[2024-01-21] MEDS: levothyroxine 175 mcg Tablet PO (09:59)
--- NOTE | 2024-01-21 11:10 | PC.NURSE ---
Bp reported to nurse @ 1103
--- NOTE | 2024-01-21 12:09 | P.CONIM_ITS ---
Providers/Reason For Consult 2 Consulting Physician/Specialty*: General Surgery Reason for Consult*: Evaluation for upper and lower endoscopy Attending Physician: Soo Solis MD Primary Care Provider: Jose Thomason MD History of Present Illness History of Present Illness Charlie Jacobs is a 78 year old male who has metastatic prostate cancer, he came to see me in the clinic yesterday and a rapid response was called because he was feeling very dizzy. Patient states that she was told to the ED a colonoscopy to evaluate for persistent nausea that he is having as well as to evaluation for lower GI bleeding as he had seen some blood in his stool, according to the patient he only saw this blood in the stool once and at the moment of my evaluation he is telling me that he does not want to proceed with any upper and lower endoscopy at this time. Medications/Allergies Home Medications Medication Instructions Recorded Confirmed Last Taken Type aspirin 81 mg tablet,delayed 81 mg PO DAILY 03/29/19 01/20/24 11/06/23 06:00 History release nitroglycerin 0.4 mg sublingual 0.4 mg sublingual Q5M PRN Chest 07/21/22 01/20/24 05/24/23 Rx tablet (Nitrostat) Pain #30 tabs Walker #1 ea 07/28/22 01/20/24 05/24/23 Rx mv-mn-folic 200 mcg-vit K 15 1 cap PO DAILY 04/09/23 01/20/24 11/06/23 History mcg-lutein 5 mg-zeaxanthin 1 mg capsule (PreserVision AREDS 2 Plus Multivit) loratadine 10 mg tablet (Claritin) 10 mg PO QPM 07/31/23 01/20/24 11/05/23 History apixaban 5 mg tablet (Eliquis) 5 mg PO BID #180 tabs 08/03/23 01/20/24 11/06/23 07:00 Rx tamsulosin 0.4 mg capsule 0.4 mg PO QPM #90 caps 09/30/23 01/20/24 11/05/23 Rx catheter bags #4 ea 10/08/23 01/20/24 Unknown Rx cholecalciferol (vitamin D3) 50 50 mcg PO DAILY #90 caps 10/13/23 01/20/24 11/06/23 Rx mcg (2,000 unit) capsule fluticasone fur. 100 mcg-umeclid 1 ea inhalation DAILY #60 ea 10/13/23 01/20/24 11/06/23 Rx 62.5 mcg-vilant 25 mcg inhalat.powder (Trelegy Ellipta) trazodone 100 mg tablet 100 mg PO DAILY #90 tabs 10/13/23 01/20/24 11/05/23 Rx ipratropium 0.5 mg-albuterol 3 mg 3 ml inhalation Q6H PRN wheezing 11/06/23 01/20/24 Unknown Rx (2.5 mg base)/3 mL nebulization #90 mL soln nebulizer with tubing #1 ea 11/06/23 01/20/24 Unknown Rx azelastine 137 mcg (0.1 %) nasal 2 spray intranasal BID #30 mL 11/18/23 01/20/24 Unknown Rx spray omeprazole 40 mg capsule,delayed 40 mg PO DAILY #30 caps 11/18/23 01/20/24 Unknown Rx release metoprolol succinate 25 mg 25 mg PO QAM #90 tabs 12/08/23 01/20/24 Unknown Rx tablet,extended release 24 hr sitagliptin phosphate 100 mg 100 mg PO QAM #90 tabs 12/08/23 01/20/24 Unknown Rx tablet (Januvia) morphine 15 mg immediate release 15 mg PO Q6H PRN pain 30 days #120 12/09/23 01/20/24 Unknown Rx tablet tabs glipizide 2.5 mg tablet, extended 2.5 mg PO QAM #90 tabs 12/28/23 01/20/24 Unknown Rx release 24 hr rosuvastatin 40 mg tablet 40 mg PO BEDTIME #90 tabs 12/29/23 01/20/24 Unknown Rx ondansetron HCl 8 mg tablet 8 mg PO Q8H PRN nausea and 01/14/24 01/20/24 Unknown Rx vomiting #30 tabs prednisone 5 mg tablet 5 mg PO BID #60 tabs 01/14/24 01/20/24 Unknown Rx budesonide 0.5 mg/2 mL suspension 0.5 mg inhalation BID 01/17/24 01/20/24 Unknown History for nebulization carbamazepine 100 mg 100 mg PO BID 01/17/24 01/20/24 Unknown History tablet,extended release,12 hr metoclopramide HCl 5 mg tablet 5 mg PO TID 01/17/24 01/20/24 Unknown History montelukast 10 mg tablet 10 mg PO DAILY 01/17/24 01/20/24 Unknown History levothyroxine 175 mcg tablet See Rx Instructions .Route 01/18/24 01/20/24 Unknown Rx .COMPLEX #90 tabs polyethylene glycol 3350 17 gram 17 g PO DAILY #30 ea 01/18/24 01/20/24 Unknown Rx oral powder packet (Miralax) finasteride 5 mg tablet 5 mg PO DAILY 01/20/24 01/20/24 Unknown History enzalutamide 80 mg tablet (Xtandi) 80 mg PO DAILY #30 tabs 01/21/24 Unknown Rx Allergies Allergy/AdvReac Type Severity Reaction Status Date / Time vancomycin Allergy HIVES,RASH Verified 01/20/24 09:54 Current Medications Generic Name Dose Route Start Last Admin Trade Name Freq PRN Reason Stop Dose Admin Aspirin 81 mg 01/21/24 09:00 01/21/24 09:52 Aspirin 81 Mg Ec Tablet PO 81 mg DAILY EVAN Administration Atorvastatin Calcium 40 mg 01/20/24 21:00 01/20/24 19:52 Atorvastatin 40 Mg Tablet PO 40 mg BEDTIME EVAN Administration Budesonide 0.5 mg 01/20/24 20:00 01/21/24 08:57 Budesonide 0.5 Mg/2 Ml Neb INHALATION Not Given BID.RESPIRATORY EVAN Carbamazepine 100 mg 01/20/24 18:00 01/21/24 09:53 Carbamazepine Xr (12 Hr) 100 Mg Tablet PO 100 mg BID EVAN Administration Finasteride 5 mg 01/21/24 09:00 01/21/24 09:52 Finasteride 5 Mg Tablet PO 5 mg DAILY EVAN Administration Levothyroxine Sodium 175 mcg 01/21/24 09:00 01/21/24 09:59 Levothyroxine 175 Mcg Tablet PO 175 mcg MoTuWeThFr EVAN Administration Metoclopramide HCl 5 mg 01/20/24 21:00 01/21/24 09:52 Metoclopramide 10 Mg Tablet PO 5 mg TID EVAN Administration Metoprolol Succinate 25 mg 01/21/24 09:00 01/21/24 09:53 Metoprolol Succinate Er (24 Hr) 25 Mg Tablet PO 25 mg DAILY EVAN Administration Montelukast Sodium 10 mg 01/21/24 09:00 01/21/24 09:52 Montelukast Sodium 10 Mg Tablet PO 10 mg DAILY EVAN Administration Morphine Sulfate 15 mg 01/20/24 17:13 01/20/24 22:59 Morphine Ir 15 Mg Tablet PO 15 mg Q6H PRN Administration pain Ondansetron HCl 4 mg 01/20/24 16:44 01/21/24 08:56 Ondansetron 2 Mg/Ml Sdv 2 Ml IVP 4 mg Q8H PRN Administration vomiting, or N/V if npo Pantoprazole Sodium 40 mg 01/21/24 09:00 01/21/24 09:[address] 40 Mg Tablet PO 40 mg DAILY EVAN Administration Polyethylene Glycol 17 gm 01/21/24 09:00 01/21/24 09:52 Polyethylene Glycol 3350 Pkt 17 Gm PO Not Given DAILY EVAN Prednisone 5 mg 01/20/24 18:00 01/21/24 09:53 Prednisone 5 Mg Tablet PO 5 mg BID EVAN Administration Tamsulosin HCl 0.4 mg 01/20/24 18:00 01/20/24 17:50 Tamsulosin 0.4 Mg Capsule PO 0.4 mg QPM EVAN Administration Trazodone HCl 100 mg 01/20/24 21:00 01/20/24 22:59 Trazodone 100 Mg Tablet PO 100 mg BEDTIME EVAN Administration PFSH Acute 2 PFSH: Medical History Papillary thyroid carcinoma Suprapubic catheter Prostate cancer metastatic to bone Deep vein thrombosis (DVT) of left lower extremity Nausea & vomiting Weight loss Lower urinary tract symptoms (LUTS) Cancer related pain Urinary tract infection Right kidney mass Burning sensation of feet Lumbar stenosis with neurogenic claudication Intervertebral disc disorder with radiculopathy of lumbosacral region Metastasis to bone Dyslipidemia History of diverticulitis Type 2 diabetes mellitus, without long-term current use of insulin Benign essential HTN Post-surgical hypothyroidism Insomnia GERD (gastroesophageal reflux disease) COPD (chronic obstructive pulmonary disease) 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 Other CAD (coronary artery disease) Social History Smoking and tobacco/nicotine status: former use of tobacco/nicotine Quit status (tobacco/nicotine): has quit using Year quit tobacco: 2022 Former quit date comment: stopped in February of this year Alcohol intake: never Substance/Drug Use: never Lives independently: Yes Household members: spouse Marital status: Current occupational status: retired Vitals/I&O/Wt Last Vital Signs Temp 97.7 F 01/21/24 11:10 Pulse 64 01/21/24 11:10 Resp 18 01/21/24 08:57 BP 166/100 01/21/24 11:10 Pulse Ox 97 01/21/24 11:10 O2 Del Method Room Air 01/21/24 11:10 01/20/24 01/21/24 01/21/24 22:59 06:59 14:59 Intake Total 1040 / 1040 240 / 1280 240 / 240 Output Total 200 / 200 Balance 1040 / 1040 40 / 1080 240 / 240 Weight last 48 hrs Weight 217 lb 8 oz Weight 217 lb 5 oz Weight 220 lb Physical Exam 2 Narrative: General : Patient is well developed , no acute distress, oriented x3 Head : Normal cephalic, a-traumatic. Nose : Mucous membranes are without erythema. Lungs : Equal chest rise bilaterally, no use of accessory muscles, trachea is midline. CV : Rate and rhythm are normal. Abdomen : Soft, ND, NT, no g/r/m Extremities : No edema. Upper extremities are normal bilaterally. Back : non-tender to palpation, no CVA tenderness. Data 01/21/24 06:54 01/21/24 06:54 Micro: Microbiology 01/20/24 11:21 Urine Culture - Preliminary Urine,Clean Catch Gram Negative Rods A&P Assessment and plan (1) Rectal bleeding: Plan I evaluated patient at the bedside, he does not to proceed with upper and lower endoscopy at this time. If he changes his mind he can see him as outpatient to schedule him for EGD and colon. No additional recommendations from the surgical standpoint, can resume anticoagulation as needed. Coding Level of Care Code 92540 Diagnoses Rectal bleeding K62.5
[2024-01-21] MEDS: magnesium citrate Btl 296 mL PO ×2 (12:39→20:42)
[2024-01-21] MEDS: bisacodyl 10 mg Supp PR (12:53)
[2024-01-21] MEDS: tamsulosin 0.4 mg Capsule PO (17:55)
[2024-01-21] MEDS: trazodone 100 mg Tablet PO (20:42)
[2024-01-21] MEDS: atorvastatin 40 mg Tablet PO (20:42)
[2024-01-21] MEDS: morphine IR 15 mg Tablet PO (20:42)
[2024-01-22] VITALS (7 sets, daily range): BP systolic 111–150; BP diastolic 58–81; PULSE 62–87; RESP 14–18; TEMP 36.3–36.7; O2SAT 94–100
--- NOTE | 2024-01-22 06:28 | W.PM.OPSUD ---
Surgery/Procedure H&P Update DATE OF PROCEDURE: January 22, 2024 DATE H&P PERFORMED: 01/21/24 H&P UPDATE INFORMATION: I have reviewed H&P completed within last 30 days, I have examined patient prior to procedure, No changes to prior documentation and H&P is in [facility] [place] EMR on date indicated PLANNED PROCEDURE: Operation Date: 01/22/24 07:20 Proposed Procedures p EGD(Not Applicable) - Stew Haddad MD s Colonoscopy(Not Applicable) - Stew Haddad MD
[2024-01-22] MEDS: sodium chloride 0.9% 500 ML 15 ML IV (09:02)
--- NOTE | 2024-01-22 09:22 | P.ANESASSM_ITS ---
Pre-Anesthetic Assessment Height/Weight: Height 1.91 m Weight 98.792 kg Temp Pulse Resp BP Pulse Ox O2 Del Method 98.0 F 80 18 131/81 94 Room Air 01/22/24 08:46 01/22/24 08:46 01/22/24 08:46 01/22/24 08:46 01/22/24 08:46 01/22/24 08:46 Operation Date: 01/22/24 07:20 Proposed Procedures p EGD(Not Applicable) - Stew Haddad MD s Colonoscopy(Not Applicable) - Stwe Haddad MD Familial anesthetic complications: None Was Beta Michelle taken within 24 hours: Yes Was Clonidine taken within 24 hours: N/A Last intake: Intake Last Liquid Date 01/22/24 Last Liquid Time 00:00 Last Solid Date 01/20/24 Social No alcohol and No tobacco Exam alert, oriented x 3, clear to auscultation bilaterally and regular rate & rhythm Airway Mallampati: Class II Dentition: other (no teeth) Pulmonary Chronic Obstructive Pulmonary Disease ( 2 L NC prn) CV/HEM Atrial Fibrillation, Coronary Artery Disease and Hypertension Metabolic Diabetes Mellitus, Hyperlipidemia and Thyroid Disease Anesthetic Plan ASA status: 4 Anesthesia: MAC Risk of > 500 ml blood loss (7ml/kg in children): No Medications/Allergies Home Medications Medication Instructions Recorded Confirmed Last Taken Type aspirin 81 mg tablet,delayed 81 mg PO DAILY 03/29/19 01/20/24 11/06/23 06:00 History release nitroglycerin 0.4 mg sublingual 0.4 mg sublingual Q5M PRN Chest 07/21/22 01/20/24 05/24/23 Rx tablet (Nitrostat) Pain #30 tabs Walker #1 ea 07/28/22 01/20/24 05/24/23 Rx mv-mn-folic 200 mcg-vit K 15 1 cap PO DAILY 04/09/23 01/20/24 11/06/23 History mcg-lutein 5 mg-zeaxanthin 1 mg capsule (PreserVision AREDS 2 Plus Multivit) loratadine 10 mg tablet (Claritin) 10 mg PO QPM 07/31/23 01/20/24 11/05/23 History apixaban 5 mg tablet (Eliquis) 5 mg PO BID #180 tabs 08/03/23 01/20/24 11/06/23 07:00 Rx tamsulosin 0.4 mg capsule 0.4 mg PO QPM #90 caps 09/30/23 01/20/24 11/05/23 Rx catheter bags #4 ea 10/08/23 01/20/24 Unknown Rx cholecalciferol (vitamin D3) 50 50 mcg PO DAILY #90 caps 10/13/23 01/20/24 11/06/23 Rx mcg (2,000 unit) capsule fluticasone fur. 100 mcg-umeclid 1 ea inhalation DAILY #60 ea 10/13/23 01/20/24 11/06/23 Rx 62.5 mcg-vilant 25 mcg inhalat.powder (Trelegy Ellipta) trazodone 100 mg tablet 100 mg PO DAILY #90 tabs 10/13/23 01/20/24 11/05/23 Rx ipratropium 0.5 mg-albuterol 3 mg 3 ml inhalation Q6H PRN wheezing 11/06/23 01/20/24 Unknown Rx (2.5 mg base)/3 mL nebulization #90 mL soln nebulizer with tubing #1 ea 11/06/23 01/20/24 Unknown Rx azelastine 137 mcg (0.1 %) nasal 2 spray intranasal BID #30 mL 11/18/23 01/20/24 Unknown Rx spray omeprazole 40 mg capsule,delayed 40 mg PO DAILY #30 caps 11/18/23 01/20/24 Unknown Rx release metoprolol succinate 25 mg 25 mg PO QAM #90 tabs 12/08/23 01/20/24 Unknown Rx tablet,extended release 24 hr sitagliptin phosphate 100 mg 100 mg PO QAM #90 tabs 12/08/23 01/20/24 Unknown Rx tablet (Januvia) morphine 15 mg immediate release 15 mg PO Q6H PRN pain 30 days #120 12/09/23 01/20/24 Unknown Rx tablet tabs glipizide 2.5 mg tablet, extended 2.5 mg PO QAM #90 tabs 12/28/23 01/20/24 Unknown Rx release 24 hr rosuvastatin 40 mg tablet 40 mg PO BEDTIME #90 tabs 12/29/23 01/20/24 Unknown Rx ondansetron HCl 8 mg tablet 8 mg PO Q8H PRN nausea and 01/14/24 01/20/24 Unknown Rx vomiting #30 tabs prednisone 5 mg tablet 5 mg PO BID #60 tabs 01/14/24 01/20/24 Unknown Rx budesonide 0.5 mg/2 mL suspension 0.5 mg inhalation BID 01/17/24 01/20/24 Unknown History for nebulization carbamazepine 100 mg 100 mg PO BID 01/17/24 01/20/24 Unknown History tablet,extended release,12 hr metoclopramide HCl 5 mg tablet 5 mg PO TID 01/17/24 01/20/24 Unknown History montelukast 10 mg tablet 10 mg PO DAILY 01/17/24 01/20/24 Unknown History levothyroxine 175 mcg tablet See Rx Instructions .Route 01/18/24 01/20/24 Unknown Rx .COMPLEX #90 tabs polyethylene glycol 3350 17 gram 17 g PO DAILY #30 ea 01/18/24 01/20/24 Unknown Rx oral powder packet (Miralax) finasteride 5 mg tablet 5 mg PO DAILY 01/20/24 01/20/24 Unknown History enzalutamide 80 mg tablet (Xtandi) 80 mg PO DAILY #30 tabs 01/21/24 01/21/24 Unknown Rx Allergies Allergy/AdvReac Type Severity Reaction Status Date / Time vancomycin Allergy HIVES,RASH Verified 01/20/24 09:54 Current Medications Generic Name Dose Route Start Last Admin Trade Name Freq PRN Reason Stop Dose Admin Aspirin 81 mg 01/21/24 09:00 01/21/24 09:52 Aspirin 81 Mg Ec Tablet PO 81 mg DAILY EVAN Administration Atorvastatin Calcium 40 mg 01/20/24 21:00 01/21/24 20:42 Atorvastatin 40 Mg Tablet PO 40 mg BEDTIME EVAN Administration Budesonide 0.5 mg 01/20/24 20:00 01/21/24 21:04 Budesonide 0.5 Mg/2 Ml Neb INHALATION Not Given BID.RESPIRATORY EVAN Carbamazepine 100 mg 01/20/24 18:00 01/21/24 17:55 Carbamazepine Xr (12 Hr) 100 Mg Tablet PO 100 mg BID EVAN Administration Finasteride 5 mg 01/21/24 09:00 01/21/24 09:52 Finasteride 5 Mg Tablet PO 5 mg DAILY EVAN Administration Sodium Chloride 500 mls @ 15 mls/hr 01/22/24 08:43 01/22/24 09:02 Sodium Chloride 0.9% IV 01/23/24 08:42 15 mls/hr .Q24H PRN Administration COLONOSCOPY FLUIDS Levothyroxine Sodium 175 mcg 01/21/24 09:00 01/21/24 09:59 Levothyroxine 175 Mcg Tablet PO 175 mcg MoTuWeThFr EVAN Administration Metoclopramide HCl 5 mg 01/20/24 21:00 01/21/24 20:42 Metoclopramide 10 Mg Tablet PO Not Given TID EVAN Metoprolol Succinate 25 mg 01/21/24 09:00 01/21/24 09:53 Metoprolol Succinate Er (24 Hr) 25 Mg Tablet PO 25 mg DAILY EVAN Administration Montelukast Sodium 10 mg 01/21/24 09:00 01/21/24 09:52 Montelukast Sodium 10 Mg Tablet PO 10 mg DAILY EVAN Administration Morphine Sulfate 15 mg 01/20/24 17:13 01/21/24 20:42 Morphine Ir 15 Mg Tablet PO 15 mg Q6H PRN Administration pain Non-Formulary Medication 80 mg 01/21/24 10:45 01/21/24 12:42 Enzalutamide [Xtandi] PO 01/28/24 10:44 Not Given DAILY EVAN Ondansetron HCl 4 mg 01/20/24 16:44 01/21/24 08:56 Ondansetron 2 Mg/Ml Sdv 2 Ml IVP 4 mg Q8H PRN Administration vomiting, or N/V if npo Pantoprazole Sodium 40 mg 01/21/24 09:00 01/21/24 09:[address] 40 Mg Tablet PO 40 mg DAILY EVAN Administration Polyethylene Glycol 17 gm 01/21/24 09:00 01/21/24 09:52 Polyethylene Glycol 3350 Pkt 17 Gm PO Not Given DAILY EVAN Prednisone 5 mg 01/20/24 18:00 01/21/24 17:55 Prednisone 5 Mg Tablet PO 5 mg BID EVAN Administration Tamsulosin HCl 0.4 mg 01/20/24 18:00 01/21/24 17:55 Tamsulosin 0.4 Mg Capsule PO 0.4 mg QPM EVAN Administration Trazodone HCl 100 mg 01/20/24 21:00 01/21/24 20:42 Trazodone 100 Mg Tablet PO 100 mg BEDTIME EVAN Administration PFSH Anesthesia Medical History Papillary thyroid carcinoma Suprapubic catheter Prostate cancer metastatic to bone Deep vein thrombosis (DVT) of left lower extremity Nausea & vomiting Weight loss Lower urinary tract symptoms (LUTS) Cancer related pain Urinary tract infection Right kidney mass Burning sensation of feet Lumbar stenosis with neurogenic claudication Intervertebral disc disorder with radiculopathy of lumbosacral region Metastasis to bone Dyslipidemia History of diverticulitis Type 2 diabetes mellitus, without long-term current use of insulin Benign essential HTN Post-surgical hypothyroidism Insomnia GERD (gastroesophageal reflux disease) COPD (chronic obstructive pulmonary disease) 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 Other CAD (coronary artery disease) Social History Smoking and tobacco/nicotine status: former use of tobacco/nicotine Quit status (tobacco/nicotine): has quit using Year quit tobacco: 2022 Former quit date comment: stopped in February of this year Alcohol intake: never Substance/Drug Use: never Lives independently: Yes Household members: spouse Marital status: Current occupational status: retired Data Anesthesia 01/21/24 06:54 01/21/24 06:54 Short CBC 01/20/24 01/21/24 Range/Units 10:35 06:54 WBC 5.22 2.61 L (3.29-11.43) 10^3/uL Hgb 13.00 11.10 L (11.27-16.99) g/dL Hct 39.3 34.4 L (37-53) % MCV 93.8 95.3 (82-101) fl Plt Count 167 149 L (157-399) 10^3/cmm Neut % (Auto) 77.6 47.1 % Neut # (Auto) 4.05 1.23 L (1.8-7.7) 10^3/uL BMP 01/20/24 01/21/24 10:35 06:54 Sodium 137 140 Potassium 3.6 3.8 Chloride 102 106 Carbon Dioxide 24 25 BUN 9 7 L Creatinine 0.8 0.8 Glucose 104 126 H Calcium 8.6 8.1 L Cardiac Enzymes 01/20/24 01/20/24 01/20/24 Range/Units 10:35 12:40 16:47 Troponin T Baseline 20 H (0-15) ng/L Troponin T 120 Minute 20.54 H (0-15) ng/L Delta Troponin T 0.54 (0-10) ABS# Troponin T Hi Sens 6Hr 21.87 H (0-15) ng/L Troponin T Hi Sens 6Hr Delta 1.87 (0-12) ng/L Liver Function 01/20/24 01/21/24 Range/Units 10:35 06:54 Total Bilirubin 0.4 0.4 (0.15-1.2) mg/dL AST 13 11 (0-40) U/L ALT 7 6 (0-41) U/L Alkaline Phosphatase 85 74 (40-130) U/L Albumin 3.4 L 3.0 L (3.5-5.2) g/dL Urine 01/20/24 Range/Units 11:21 Urine Color Yellow (Yellow) Urine Appearance Turbid A (CLEAR) Urine pH 7.5 (5-7) Ur Specific Point 1.023 (1.005-1.030) Urine Protein 2+ A (Negative) Urine Glucose (UA) Negative (Normal) Urine Ketones Negative (Negative) Urine Nitrate Positive A (Negative) Urine Bilirubin Negative (Negative) Ur Leukocyte Esterase 1+ A (Negative) Urine RBC >100 H (0-2) /hpf Urine WBC 51-100 H (0-5) /hpf Microbiology 01/20/24 11:21 Urine Culture - Preliminary Urine,Clean Catch Gram Negative Rods Cardiac Studies: 2 Echocardiogram 01/20/24
--- NOTE | 2024-01-22 09:52 | P.MISC_ITS ---
Miscellaneous Note Purpose of Documentation: Update on patient care Note: Upper and lower endoscopy done today, no evidence of active bleeding, there were some diverticula in the colon as well as some small internal hemorrhoids that may have been the culprit of a small amount of blood the patient soften his stool. In the upper endoscopy there is a hiatal hernia and some gastritis nothing concerning. Can anticoagulation as needed, can be advanced diet as sam erated and he is cleared for discharge from the general surgery standpoint.
--- NOTE | 2024-01-22 10:05 | ANE.PACU2 ---
Inpatient post-anesthesia follow up: Airway intact: Yes Vital signs: Temperature 97.4 F Pulse Rate [Orthos tatic 95 Sitting Right Radi al] Pulse Rate [Orthos tatic Lying 80 Right Radial] Pulse Rate 76 Respiratory Rate 18 Blood Pressure [Or thostatic 115/69 Sitting Right Arm] Blood Pressure [Or thostatic 118/79 Lying Right Arm] Blood Pressure 130/81 Pulse Oximetry 96 Oxygen Delivery Me thod Room Air Oxygen Flow Rate 5 Fraction of Inspir ed Oxygen Hydration adequate: Yes Nausea and vomiting: No Pain level: 1 Mental status: Baseline
[2024-01-22] MEDS: ENZALUTAMIDE 80 MG 80 EACH PO (10:40)
[2024-01-22] MEDS: aspirin 81 mg EC Tablet PO (10:41)
[2024-01-22] MEDS: finasteride 5 mg Tablet PO (10:41)
[2024-01-22] MEDS: montelukast sodium 10 mg Tablet PO (10:41)
[2024-01-22] MEDS: levothyroxine 175 mcg Tablet PO (10:42)
[2024-01-22] MEDS: metoclopramide 10 mg Tablet 5 MG PO (10:42)
[2024-01-22] MEDS: metoprolol succinate ER (24 HR) 25 mg Tablet PO (10:43)
[2024-01-22] MEDS: pantoprazole DR 40 mg Tablet PO (10:43)
[2024-01-22] MEDS: predniSONE 5 mg Tablet PO (10:43)
[2024-01-22] MEDS: carBAMazepine XR (12 HR) 100 mg Tablet PO (10:46)
--- NOTE | 2024-01-22 13:50 | PC.NURSE ---
Discharge Note Patient discharged to home via private vehicle accompanied by . Discharge instructions reviewed with patient and/or volunteer patient representative. Mobile pharmacy medications and/or prescriptions provided. Belongings/home medications returned.
--- NOTE | 2024-01-22 16:31 | PM.DCS ---
Discharge Providers Date of Admission: 01/20/24 13:38 Date of Discharge: January 22, 2024 Attending Provider at Admission: Soo Solis MD Attending Provider at Discharge: Soo Solis MD Primary Care Provider: Jose Thomason MD Diagnoses at Discharge Discharge Diagnosis (1) Syncope: Status: Acute (2) GI bleed: Status: Acute Reason for Visit Reason for Visit: Rapid Response Hospital Course Hospital Course Charlie Jacobs is a 78 year old male with PMH A fib on Eliquis recently admitted here for rectal bleeding with stable Hb and hemodynamics, discharged to see general surgery as outpatient in 2 days. He presented with near syncope event at the general surgery office on January 20, 2024. Patient became suddenly pale, diaphoretic and dizzy and was brought to the ER. Ct head without acute changes. No h/o palpitations, nausea, vomiting prior to event. no chest pain. no current bleeding. EKG was without acute ST-T wave changes. Echocardiogram grade 1 diastolic dysfunction otherwise normal. Bilateral carotid Doppler without any acute significant occlusion. Syncope did not recur during hospital course. Telemetry monitoring did not show arrhythmias except for sinus bradycardia with heart rate in the 50s. Concerned that potentially patient may have been bradycardic at follow-up in the office which may have led to his presyncopal episode. Metoprolol dose was reduced from 25 mg daily to 12.5 mg p.o. daily for this reason. Additionally concern for rectal bleeding and hypotension may have been contributing to his presyncopal event. He underwent EGD and colonoscopy today which showed internal hemorrhoids and diverticulosis without perforation or abscess. No active bleeding was encountered. Upper GI endoscopy showed mild gastritis without active bleeding. Patient has been recommended to continue taking Protonix 40 mg twice daily. He can resume Eliquis and aspirin at the time of discharge. Source of rectal bleeding was most likely to be hemorrhoidal. His hemoglobin has remained stable during course of this admission. Physical Exam Narrative: General: No acute distress, AO x3 HEENT: PERRLA, pupils bilaterally equal and reactive, pallors not present Chest: Normal vesicular breath sounds, no added sounds, equal good air entry bilaterally CVS: S1-S2 regular, no murmurs, no tachycardia, no gallops, no rubs Abdomen: Soft, nontender, no organomegaly, bowel sounds present Neuro: No focal deficits, no facial deformity, AO x3, power 5/5 in all limbs Discharge Data Studies Completed and Pending Completed Studies During Hospitalization Category Date Time Status CT head wo con* [id number] Stat Cat Scan 01/20/24 10:25 Completed XR chest 1V portable [id number] Stat Exams 01/20/24 10:25 Completed CV carotid duplex BI* [id number] Routine Ultrasound 01/20/24 17:12 Completed CV. echo complete* [id number] Routine Ultrasound 01/20/24 17:12 Completed Pending at discharge Category Date Time Status Urine Culture Stat Lab 01/20/24 11:21 Results Pathology: Surgical [PTH] Routine Pth 01/22/24 09:50 Received Radiology Impressions Chest X-Ray 01/20/24 10:25 IMPRESSION: 1. Pulmonary hyperinflation, no acute process. Head CT 01/20/24 10:25 IMPRESSION: 1. No acute intracranial hemorrhage or edema. 2. Mild cerebral and cerebellar atrophy and small vessel disease. Laboratory Results WBC 2.61 10^3/uL (3.29-11.43) L 01/21/24 06:54 RBC 3.61 10^6/uL (3.85-5.65) L 01/21/24 06:54 Hgb 11.10 g/dL (11.27-16.99) L 01/21/24 06:54 Hct 34.4 % (37-53) L 01/21/24 06:54 MCV 95.3 fl (82-101) 01/21/24 06:54 MCH 30.7 pg (27-33) 01/21/24 06:54 MCHC 32.3 g/dL (30-55) 01/21/24 06:54 RDW 15.4 % (12.1-15.1) H 01/21/24 06:54 Plt Count 149 10^3/cmm (157-399) L 01/21/24 06:54 MPV 10.6 fL (7.4-10.4) H 01/21/24 06:54 Neut % (Auto) 47.1 % 01/21/24 06:54 Lymph % (Auto) 34.5 % 01/21/24 06:54 [place] % (Auto) 15.3 % 01/21/24 06:54 Eos % (Auto) 2.3 % 01/21/24 06:54 Baso % (Auto) 0.4 % 01/21/24 06:54 Neut # (Auto) 1.23 10^3/uL (1.8-7.7) L 01/21/24 06:54 Lymph # (Auto) 0.9 10^3/uL (0.8-4.8) 01/21/24 06:54 [place] # (Auto) 0.4 10^3/uL (0.2-0.9) 01/21/24 06:54 Eos # (Auto) 0.1 10^3/uL (0.0-0.8) 01/21/24 06:54 Baso # (Auto) 0.0 10^3/uL (0.0-0.1) 01/21/24 06:54 Nucleated RBC % (auto) 0 % 01/21/24 06:54 Nucleated RBCs # 0.0 /100WBC 01/21/24 06:54 Sodium 140 mmol/L (136-145) 01/21/24 06:54 Potassium 3.8 mmol/L (3.5-5.1) 01/21/24 06:54 Chloride 106 mmol/L (98-107) 01/21/24 06:54 Carbon Dioxide 25 mmol/L (22-29) 01/21/24 06:54 Anion Gap 12.8 (5-19) 01/21/24 06:54 BUN 7 mg/dL (8-23) L 01/21/24 06:54 Creatinine 0.8 mg/dL (0.7-1.2) 01/21/24 06:54 GFR Calculation Not Reportable 01/21/24 06:54 Glucose 126 mg/dL (65-115) H 01/21/24 06:54 POC Glucose 121 mg/dL (70-110) H 01/20/24 23:03 Calculated Osmolality 290 mOsm/kg (285-295) 01/21/24 06:54 Calcium 8.1 mg/dL (8.5-10.5) L 01/21/24 06:54 Magnesium 1.8 mg/dL (1.7-2.3) 01/21/24 06:54 Total Bilirubin 0.4 mg/dL (0.15-1.2) 01/21/24 06:54 AST 11 U/L (0-40) 01/21/24 06:54 ALT 6 U/L (0-41) 01/21/24 06:54 Alkaline Phosphatase 74 U/L (40-130) 01/21/24 06:54 Troponin T Baseline 20 ng/L (0-15) H 01/20/24 10:35 Troponin T 120 Minute 20.54 ng/L (0-15) H 01/20/24 12:40 Delta Troponin T 0.54 ABS# (0-10) 01/20/24 12:40 Troponin T Hi Sens 6Hr 21.87 ng/L (0-15) H 01/20/24 16:47 Troponin T Hi Sens 6Hr Delta 1.87 ng/L (0-12) 01/20/24 16:47 Total Protein 5.3 g/dL (6.6-8.7) L 01/21/24 06:54 Albumin 3.0 g/dL (3.5-5.2) L 01/21/24 06:54 Globulin 2.3 g/dL (1.3-4.6) 01/21/24 06:54 Lipase 29 U/L (13-60) 01/20/24 10:35 Urine Color Yellow (Yellow) 01/20/24 11:21 Urine Appearance Turbid (CLEAR) A 01/20/24 11:21 Urine pH 7.5 (5-7) 01/20/24 11:21 Ur Specific [place] 1.023 (1.005-1.030) 01/20/24 11:21 Urine Protein 2+ (Negative) A 01/20/24 11:21 Urine Glucose (UA) Negative (Normal) 01/20/24 11:21 Urine Ketones Negative (Negative) 01/20/24 11:21 Urine Blood 3+ (Negative) A 01/20/24 11:21 Urine Nitrate Positive (Negative) A 01/20/24 11:21 Urine Bilirubin Negative (Negative) 01/20/24 11:21 Urine Urobilinogen 1.0 mg/dL (Negative) 01/20/24 11:21 Ur Leukocyte Esterase 1+ (Negative) A 01/20/24 11:21 Urine RBC >100 /hpf (0-2) H 01/20/24 11:21 Urine WBC 51-100 /hpf (0-5) H 01/20/24 11:21 Ur Squamous Epith Cells 0-5 /hpf (0-5) 01/20/24 11:21 Amorphous Sediment Not Reportable 01/20/24 11:21 Urine Bacteria 4+ /hpf (NONE) H 01/20/24 11:21 Hyaline Casts 8.67 /lpf 01/20/24 11:21 C. difficile (PCR) Negative (Negative) 01/20/24 20:23 Vitals Last Vital Signs Temp 97.4 F L 01/22/24 13:48 Pulse 76 01/22/24 13:48 Resp 18 01/22/24 13:48 BP 130/81 01/22/24 13:48 Pulse Ox 96 01/22/24 13:48 O2 Del Method Room Air 01/22/24 10:05 O2 Flow Rate 5 01/22/24 09:50 Discharge Plan Discharge Patient Disposition: Home Condition: Stable Prescriptions: New pantoprazole 40 mg Tablet,Delayed Release (Dr/Ec) 40 mg PO BID 30 Days Qty: 60 0RF Continued aspirin 81 mg tablet,delayed release (DR/EC) 81 mg PO DAILY (DME) nebulizer with tubing See Rx Instructions .Route .MEDSUPPLY Qty: 1 0RF Rx Instructions: As directed ipratropium-albuterol 0.5 mg-3 mg(2.5 mg base)/3 mL solution for nebulization 3 ml inhalation Q6H PRN (Reason: wheezing) Qty: 90 0RF (DME) Walker See Rx Instructions .ROUTE .MEDSUPPLY Qty: 1 0RF Rx Instructions: As directed PreserVision AREDS 2 Plus MV 200 mcg-15 mcg- 5 mg-1 mg capsule 1 cap PO DAILY cholecalciferol (vitamin D3) 50 mcg (2,000 unit) capsule 50 mcg PO DAILY Qty: 90 1RF trazodone 100 mg tablet 100 mg PO DAILY Qty: 90 2RF Trelegy Ellipta 100-62.5-25 mcg blister with device 1 ea INHALATION DAILY Qty: 60 5RF (DME) catheter bags See Rx Instructions .Route .MEDSUPPLY Qty: 4 5RF Rx Instructions: As directed nitroglycerin [Nitrostat] 0.4 mg tablet, sublingual 0.4 mg SUBLINGUAL Q5M PRN (Reason: Chest Pain) Qty: 30 1RF Eliquis 5 mg tablet 5 mg PO BID Qty: 180 1RF Hold Instructions: Resume on 01/21/24. follow with surgery before resuming tamsulosin 0.4 mg capsule 0.4 mg PO QPM Qty: 90 1RF azelastine 137 mcg (0.1 %) spray,non-aerosol 2 spray intranasal BID Qty: 30 1RF Rx Instructions: administer into each nostril Januvia 100 mg tablet 100 mg PO QAM Qty: 90 0RF morphine 15 mg tablet 15 mg PO Q6H PRN (Reason: pain) 30 Days Qty: 120 0RF glipizide 2.5 mg tablet extended release 24hr 2.5 mg PO QAM Qty: 90 1RF rosuvastatin 40 mg tablet 40 mg PO BEDTIME Qty: 90 1RF prednisone 5 mg tablet 5 mg PO BID Qty: 60 0RF ondansetron HCl 8 mg tablet 8 mg PO Q8H PRN (Reason: nausea and vomiting) Qty: 30 1RF levothyroxine 175 mcg tablet See Rx Instructions .ROUTE .COMPLEX Qty: 90 1RF Dose Instruction: TAKE 1 TABLET BY MOUTH EVERY DAY thursday through thursday. take 1/2 tablet BY MOUTH ON thursday, SKIP thursday Rx Instructions: TAKE 1 TABLET BY MOUTH EVERY DAY thursday through thursday. take 1/2 tablet BY MOUTH ON thursday, SKIP thursday Xtandi 80 mg tablet 80 mg PO DAILY Qty: 30 0RF budesonide 0.5 mg/2 mL suspension for nebulization 0.5 mg inhalation BID carbamazepine 100 mg tablet extended release 12 hr 100 mg PO BID Rx Instructions: TAKE 1 TABLET BY MOUTH TWICE DAILY metoclopramide HCl 5 mg tablet 5 mg PO TID Rx Instructions: TAKE 1 TABLET BY MOUTH THREE TIMES DAILY montelukast 10 mg tablet 10 mg PO DAILY Rx Instructions: TAKE 1 TABLET BY MOUTH EVERY DAY polyethylene glycol 3350 [Miralax] 17 gram powder in packet 17 g PO DAILY Qty: 30 0RF loratadine [Claritin] 10 mg Tablet 10 mg PO QPM finasteride 5 mg tablet 5 mg PO DAILY Changed metoprolol succinate 25 mg tablet extended release 24 hr 12.5 mg PO QAM Qty: 90 0RF Discontinued omeprazole 40 mg capsule,delayed release(DR/EC) 40 mg PO DAILY Qty: 30 1RF Discharge Orders: Discharge Order (Routine); Ordered 01/22/24 Ordered By: Soo Solis Referrals: [facility] ([facility]) [Outside] Jose Thomason MD [Primary Care Provider] - (We have notified your physician's clinic of the need for a follow-up appointment to be scheduled. If you have not heard from them within the next 2 business days, please call them directly. ) Patient Instructions: Pantoprazole (By mouth), Gastrointestinal Bleeding (DC), GI Post Discharge Instructions w/ Anesthesia, Opioid Safety Discharge Attestations Time Spent in Discharge Care*: greater than 30 min Quality Metrics Clinical Quality Measures [ No reported AMI, CVA or VTE this stay] Coding Level of Care Code Acute Code for Chg Fwd Diagnoses Syncope R55 GI bleed K92.2
== END 2024-01-22 13:50 | disposition home or self-care (01) ==
LOC: ER 13:29 → ER IP 13:38 → MEDSURG 14:12
PROVIDERS: Surgery; Admitting Provider Student in an Organized Health Care Education/Training Program; Emergency Provider Family Medicine; PCP Family Medicine; Visit Provider Student in an Organized Health Care Education/Training Program
PROC: 0DJ08ZZ Inspection of Upper Intestinal Tract, Via Natural or Artificial Opening Endoscopic (ICD-10-PCS; CPT 43235; principal; 2024-01-22 07:20)
PROC: 0DJD8ZZ Inspection of Lower Intestinal Tract, Via Natural or Artificial Opening Endoscopic (ICD-10-PCS; CPT 45378; 2024-01-22 07:20)
DX: K92.2 Gastrointestinal hemorrhage, unspecified (principal); R55 Syncope and collapse; I48.91 Unspecified atrial fibrillation; Z79.01 Long term (current) use of anticoagulants; K57.30 Diverticulosis of large intestine without perforation or abscess without bleeding; K64.8 Other hemorrhoids; K44.9 Diaphragmatic hernia without obstruction or gangrene; K29.70 Gastritis, unspecified, without bleeding; Z79.82 Long term (current) use of aspirin; Z85.46 Personal history of malignant neoplasm of prostate; Z86.718 Personal history of other venous thrombosis and embolism; E78.5 Hyperlipidemia, unspecified; E11.9 Type 2 diabetes mellitus without complications; J44.9 Chronic obstructive pulmonary disease, unspecified; K21.9 Gastro-esophageal reflux disease without esophagitis; N40.1 Benign prostatic hyperplasia with lower urinary tract symptoms; Z87.891 Personal history of nicotine dependence
CPT/HCPCS: 36415; 36416; 43239; 45378; 70450; 71045; 80053; 81001; 82962; 83690; 83735; 84484; 85025; 87077; 87086; 87186; 87493; 88305; 88342; 93005; 93306; 93880; 94640; 96374; 96375; 99285; G0378; J2060; J2405; J2704; J7040; J7512; J7626; J8597

== ENCOUNTER 2024-01-27 13:07 | Oncology outpatient (recurring) (ONCR) | payer MEDICARE, MEDICAID, SELFPAY ==
[2024-01-13 09:24] LABS: Basophils % 0.9 %; Eosinophils # 0.1 10^3/uL (0.0-0.8); Eosinophils % 1.5 %; Hematocrit 41.9 % (37-53); Lymphocytes # 1.3 10^3/uL (0.8-4.8); Lymphocytes % 39.1 %; Mean Corpuscular HGB Conc 32.5 g/dL (30-55); Mean Corpuscular Hemoglobin 30.4 pg (27-33); Mean Corpuscular Volume 93.7 fl (82-101); Mean Platelet Volume 10.3 fL (7.4-10.4); Monocytes # 0.6 10^3/uL (0.2-0.9); Monocytes % 17.8 %; Neutrophils # 1.37 10^3/uL (1.8-7.7); Neutrophils % 40.4 %; Nucleated Red Blood Cells % 0 %; Platelet Count 204 10^3/cmm (157-399); Red Blood Count 4.47 10^6/uL (3.85-5.65); White Blood Count 3.38 10^3/uL (3.29-11.43)
[2024-01-13 09:39] LABS: Alanine Aminotransferase 6 U/L (0-41); Albumin Level 3.5 g/dL (3.5-5.2); Alkaline Phosphatase 99 U/L (40-130); Aspartate Amino Transferase 12 U/L (0-40); Blood Urea Nitrogen 15 mg/dL (8-23); Calcium 8.4 mg/dL (8.5-10.5); Carbon Dioxide 24 mmol/L (22-29); Chloride 99 mmol/L (98-107); Creatinine Clr Calc Pharmacy 87.7422; Glucose 179 mg/dL (65-115); Magnesium 1.8 mg/dL (1.7-2.3); Osmolality Calculated 287 mOsm/kg (285-295); Sodium 136 mmol/L (136-145); Total Bilirubin 0.6 mg/dL (0.15-1.2); Total Protein 6.5 g/dL (6.6-8.7)
[2024-01-13] MEDS: sodium chloride 0.9% 1,000 ML 999 ML IV (10:01)
[2024-01-13 11:10] VITALS: BP 148/87; PULSE 84; RESP 18; TEMP 36.6; O2SAT 98
[2024-01-14] MEDS: sodium chloride 0.9% 1,000 ML 999 ML IV (14:37)
[2024-01-25 10:54] LABS: Basophils % 0.9 %; Eosinophils # 0.1 10^3/uL (0.0-0.8); Eosinophils % 1.8 %; Hematocrit 38.8 % (37-53); Lymphocytes # 0.7 10^3/uL (0.8-4.8); Mean Corpuscular HGB Conc 32.2 g/dL (30-55); Mean Corpuscular Hemoglobin 30.5 pg (27-33); Mean Corpuscular Volume 94.6 fl (82-101); Mean Platelet Volume 10.3 fL (7.4-10.4); Monocytes # 0.4 10^3/uL (0.2-0.9); Nucleated Red Blood Cells % 0 %; Platelet Count 214 10^3/cmm (157-399); Red Cell Distribution Width 15.4 % (12.1-15.1); White Blood Count 3.28 10^3/uL (3.29-11.43)
[2024-01-25 11:22] LABS: Alanine Aminotransferase 7 U/L (0-41); Albumin Level 3.3 g/dL (3.5-5.2); Alkaline Phosphatase 74 U/L (40-130); Anion Gap 13.8 (5-19); Aspartate Amino Transferase 11 U/L (0-40); Blood Urea Nitrogen 10 mg/dL (8-23); Calcium 8.9 mg/dL (8.5-10.5); Carbon Dioxide 25 mmol/L (22-29); Chloride 102 mmol/L (98-107); Creatinine Clr Calc Pharmacy 87.7422; Glucose 146 mg/dL (65-115); Osmolality Calculated 286 mOsm/kg (285-295); Potassium 3.8 mmol/L (3.5-5.1); Sodium 137 mmol/L (136-145); Total Bilirubin 0.3 mg/dL (0.15-1.2); Total Protein 6.3 g/dL (6.6-8.7)
[2024-01-25] MEDS: denosumab 120 mg SDV SUBCUT (11:30)
== END 2024-02-09 23:59 | disposition home or self-care (01) ==
PROVIDERS: Internal Medicine; Internal Medicine Medical Oncology; PCP Family Medicine; Visit Provider Internal Medicine Medical Oncology
DX: C61 Malignant neoplasm of prostate (principal); Z53.9 Procedure and treatment not carried out, unspecified reason; C79.51 Secondary malignant neoplasm of bone; N40.1 Benign prostatic hyperplasia with lower urinary tract symptoms; N13.8 Other obstructive and reflux uropathy; Z79.899 Other long term (current) drug therapy
CPT/HCPCS: 36415; 80053; 83735; 84153; 85025; 96360; 96372; 99213; 99214; J0897; J7030

== ENCOUNTER → 2024-02-01 13:10 | Outpatient (BNVA) | payer MEDICARE, MEDICAID, SELFPAY | PROVIDERS: PCP Family Medicine; Visit Provider Surgery | DX: R03.0 Elevated blood-pressure reading, without diagnosis of hypertension (principal) | CPT/HCPCS: 99213 ==

== ENCOUNTER → 2024-02-08 13:14 | Outpatient (BNVA) | payer MEDICARE, MEDICAID, SELFPAY | PROVIDERS: PCP Family Medicine; Visit Provider Podiatrist Foot & Ankle Surgery | DX: L84 Corns and callosities (principal); E13.620 Other specified diabetes mellitus with diabetic dermatitis; L60.3 Nail dystrophy; G62.89 Other specified polyneuropathies | CPT/HCPCS: 11056; 11721 ==

== ENCOUNTER 2024-02-25 12:01 | Oncology outpatient (recurring) (ONCR) | payer MEDICARE, MEDICAID, SELFPAY ==
[2024-02-25 12:40] LABS: Basophils % 0.7 %; Eosinophils # 0.1 10^3/uL (0.0-0.8); Eosinophils % 1.1 %; Hematocrit 38.7 % (37-53); Lymphocytes # 0.7 10^3/uL (0.8-4.8); Lymphocytes % 16.4 %; Mean Corpuscular HGB Conc 32.8 g/dL (30-55); Mean Corpuscular Hemoglobin 31.5 pg (27-33); Mean Platelet Volume 9.9 fL (7.4-10.4); Monocytes # 0.5 10^3/uL (0.2-0.9); Monocytes % 10.9 %; Neutrophils % 70.7 %; Nucleated Red Blood Cells % 0 %; Platelet Count 163 10^3/cmm (157-399); Red Blood Count 4.03 10^6/uL (3.85-5.65); Red Cell Distribution Width 14.8 % (12.1-15.1); White Blood Count 4.39 10^3/uL (3.29-11.43)
[2024-02-25 13:10] LABS: Alanine Aminotransferase < 5 U/L (0-41); Albumin Level 3.7 g/dL (3.5-5.2); Alkaline Phosphatase 60 U/L (40-130); Aspartate Amino Transferase 7 U/L (0-40); Blood Urea Nitrogen 11 mg/dL (8-23); Calcium 8.6 mg/dL (8.5-10.5); Carbon Dioxide 27 mmol/L (22-29); Chloride 104 mmol/L (98-107); Creatinine Clr Calc Pharmacy 97.1966; Globulin 3.1 g/dL (1.3-4.6); Glucose 129 mg/dL (65-115); Lactate Dehydrogenase 164 U/L (135-225); Osmolality Calculated 291 mOsm/kg (285-295); Sodium 140 mmol/L (136-145); Total Bilirubin 0.3 mg/dL (0.15-1.2); Total Protein 6.8 g/dL (6.6-8.7)
== END 2024-03-11 23:59 | disposition home or self-care (01) ==
PROVIDERS: PCP Family Medicine; Visit Provider Internal Medicine
DX: C61 Malignant neoplasm of prostate (principal); C79.51 Secondary malignant neoplasm of bone; N13.8 Other obstructive and reflux uropathy; N40.1 Benign prostatic hyperplasia with lower urinary tract symptoms; Z87.891 Personal history of nicotine dependence; Q55.0 Absence and aplasia of testis; K62.5 Hemorrhage of anus and rectum; Z79.818 Long term (current) use of other agents affecting estrogen receptors and estrogen levels; Z93.59 Other cystostomy status; Z79.899 Other long term (current) drug therapy; Z92.3 Personal history of irradiation
CPT/HCPCS: 36415; 80053; 83615; 84153; 85025; 99213

== ENCOUNTER 2024-04-18 09:02 | Oncology outpatient (recurring) (ONCR) | payer MEDICARE, MEDICAID, SELFPAY ==
[2024-04-18 09:36] LABS: Basophils % 0.9 %; Eosinophils # 0.1 10^3/uL (0.0-0.8); Eosinophils % 1.5 %; Hematocrit 41.2 % (37-53); Lymphocytes % 30.7 %; Mean Corpuscular Hemoglobin 31.9 pg (27-33); Mean Corpuscular Volume 96.7 fl (82-101); Mean Platelet Volume 10.2 fL (7.4-10.4); Monocytes # 0.5 10^3/uL (0.2-0.9); Monocytes % 14.6 %; Neutrophils # 1.71 10^3/uL (1.8-7.7); Nucleated Red Blood Cells % 0 %; Platelet Count 179 10^3/cmm (157-399); Red Blood Count 4.26 10^6/uL (3.85-5.65); Red Cell Distribution Width 13.5 % (12.1-15.1); White Blood Count 3.29 10^3/uL (3.29-11.43)
[2024-04-18 10:10] LABS: Alanine Aminotransferase < 5 U/L (0-41); Albumin Level 3.8 g/dL (3.5-5.2); Alkaline Phosphatase 62 U/L (40-130); Anion Gap 14.8 (5-19); Aspartate Amino Transferase 14 U/L (0-40); Blood Urea Nitrogen 12 mg/dL (8-23); Calcium 8.9 mg/dL (8.5-10.5); Carbon Dioxide 28 mmol/L (22-29); Chloride 98 mmol/L (98-107); Globulin 3.3 g/dL (1.3-4.6); Glucose 158 mg/dL (65-115); Lactate Dehydrogenase 170 U/L (135-225); Osmolality Calculated 287 mOsm/kg (285-295); Potassium 3.8 mmol/L (3.5-5.1); Sodium 137 mmol/L (136-145); Total Bilirubin 0.5 mg/dL (0.15-1.2); Total Protein 7.1 g/dL (6.6-8.7)
[2024-04-18 10:12] LABS: Testosterone Total < 2.5 ng/dL (193-740)
[2024-04-18 10:32] LABS: Ferritin 90 ng/mL (30-400); Iron 80 ug/dL (59-158); Percent Saturation 28.4 % (20-50); Total Iron Binding Capacity 281 mcg/dl; Unsaturated Iron Binding 201 ug/dL (112-347)
[2024-04-18 10:49] LABS: Vitamin B12 302 pg/mL (232-1245)
[2024-04-18 11:13] LABS: Folate Level 6.2 ng/mL (4.5-32.2)
[2024-04-18] MEDS: sodium chloride 0.9% 1,000 ML 999 ML IV (11:38)
[2024-04-18] MEDS: denosumab 120 mg SDV SUBCUT (11:43)
== END 2024-05-09 23:59 | disposition home or self-care (01) ==
PROVIDERS: Internal Medicine; PCP Family Medicine; Visit Provider Internal Medicine Medical Oncology
DX: C61 Malignant neoplasm of prostate (principal); C79.51 Secondary malignant neoplasm of bone; C73 Malignant neoplasm of thyroid gland; N13.8 Other obstructive and reflux uropathy; N40.1 Benign prostatic hyperplasia with lower urinary tract symptoms; I10 Essential (primary) hypertension; Z79.899 Other long term (current) drug therapy; Z92.3 Personal history of irradiation; Z93.50 Unspecified cystostomy status
CPT/HCPCS: 36415; 80053; 82607; 82728; 82746; 83540; 83550; 83615; 84153; 84403; 85025; 96360; 96372; 99214; J0897; J7030

== ENCOUNTER → 2024-04-19 11:58 | Outpatient (BNVA) | payer MEDICARE, MEDICAID, SELFPAY | PROVIDERS: PCP Family Medicine; Visit Provider Family Medicine | DX: E11.9 Type 2 diabetes mellitus without complications (principal) | CPT/HCPCS: 83036 ==

== ENCOUNTER 2024-04-24 12:11 | Emergency (ER) | payer MEDICARE, MEDICAID, SELFPAY ==
--- NOTE | 2024-04-24 12:14 | XRR_ITS ---
PROCEDURE INFORMATION: Exam: XR Abdomen Exam date and time: 04/24/2024 12:42 PM Age: 79 years old Clinical indication: Prior surgery; Surgery date: 6+ months; Surgery type: Suprapubic cath 2023; Constipation; HX prostate cancer with suprapubic cath placement x 1yr ago TECHNIQUE: Imaging protocol: Radiologic exam of the abdomen. Views: Frontal supine view of the abdomen. 1 View. COMPARISON: CT abdomen pelvis w con* [id number] 01/17/2024 10:08 AM FINDINGS: Tubes, catheters and devices: A suprapubic catheter is in stable position in the pelvis. Gastrointestinal tract: Large amount of fecal content in the colon. Nonobstructive bowel gas pattern. Intraperitoneal space: No free intraperitoneal air. Organs: No organomegaly. Bones/joints: Degenerative changes in the spine, sacroiliac joints, and hips. Bone islands in the left iliac bone are stable. XR/XR KUB [id number] IMPRESSION: 1. Nonobstructed bowel gas pattern. 2. Large amount of fecal content in the colon. 3. Incidental/nonacute findings are listed in the report.
[2024-04-24 12:29] VITALS: PULSE 110; RESP 16; TEMP 36.6; O2SAT 92; BMI 25.2
--- NOTE | 2024-04-24 12:41 | W.ED.ABDPA2 ---
HPI - Abdominal Pain General: Chief Complaint: Abdominal Pain Stated Complaint: no bowel movement in 3 weeks Time Seen by Provider: 04/24/24 12:29 History of Present Illness: 79-year-old man with a history of DVT, prostate cancer with bone mets, chronic pain syndrome on morphine therapy, chronic indwelling suprapubic catheter, type 2 diabetes, hyperlipidemia, diverticulosis, COPD, GERD, who presents to the emergency room with constipation. He says he has not had a good bowel movement in 3 weeks now. He had not had a.m. pain till today and he developed some lower central abdominal pain. No nausea or vomiting. No fevers. He has a suprapubic catheter and says he has been having good urine output. No altered mental status. No focal motor deficits. He says he takes MiraLAX with his coffee at least a couple times a day and takes a small stool softener as well. But he still has problems with constipation. We discussed this is secondary to his morphine. Related Data Home Medications ?Medication ?Instructions ?Recorded ?Confirmed aspirin 81 mg tablet,delayed 81 mg PO DAILY 03/29/19 04/24/24 release mv-mn-folic 200 mcg-vit K 15 1 cap PO DAILY 04/09/23 04/24/24 mcg-lutein 5 mg-zeaxanthin 1 mg capsule (PreserVision AREDS 2 Plus Multivit) loratadine 10 mg tablet (Claritin) 10 mg PO QPM 07/31/23 04/24/24 budesonide 0.5 mg/2 mL suspension 0.5 mg inhalation BID 01/17/24 04/24/24 for nebulization carbamazepine 100 mg 100 mg PO BID 01/17/24 04/24/24 tablet,extended release,12 hr montelukast 10 mg tablet 10 mg PO DAILY 01/17/24 04/24/24 lorazepam 1 mg tablet 1 mg PO DAILY PRN Anxiety 02/01/24 04/24/24 calcium 250 mg-magnesium 40 mg-D3 1 tab PO DAILY 02/25/24 04/24/24 125 unit-zinc 3.92hv-[id number]-vlma tablet acetaminophen 500 mg tablet 1,000 mg PO QID PRN Fever Or Pain 04/24/24 04/24/24 (Tylenol Extra Strength) lactobacillus comb no.10 20 20,000 mmu cells PO DAILY 04/24/24 04/24/24 billion cell capsule (Probiotic) Previous Rx's ?Medication ?Instructions ?Recorded nitroglycerin 0.4 mg sublingual 0.4 mg sublingual Q5M PRN Chest 07/21/22 tablet (Nitrostat) Pain #30 tabs Walker #1 ea 07/28/22 catheter bags #4 ea 10/08/23 cholecalciferol (vitamin D3) 50 50 mcg PO DAILY #90 caps 10/13/23 mcg (2,000 unit) capsule fluticasone fur. 100 mcg-umeclid 1 ea inhalation DAILY #60 ea 10/13/23 62.5 mcg-vilant 25 mcg inhalat.powder (Trelegy Ellipta) trazodone 100 mg tablet 100 mg PO DAILY #90 tabs 10/13/23 ipratropium 0.5 mg-albuterol 3 mg 3 ml inhalation Q6H PRN wheezing 11/06/23 (2.5 mg base)/3 mL nebulization #90 mL soln nebulizer with tubing #1 ea 11/06/23 azelastine 137 mcg (0.1 %) nasal 2 spray intranasal BID #30 mL 11/18/23 spray rosuvastatin 40 mg tablet 40 mg PO BEDTIME #90 tabs 12/29/23 prednisone 5 mg tablet 5 mg PO BID #60 tabs 01/14/24 levothyroxine 175 mcg tablet See Rx Instructions .Route 01/18/24 .COMPLEX #90 tabs polyethylene glycol 3350 17 gram 17 g PO DAILY #30 ea 01/18/24 oral powder packet (Miralax) docusate sodium 100 mg capsule 100 mg PO DAILY PRN constipation 01/29/24 #60 caps metoprolol succinate 25 mg 12.5 mg (1/2 x 25 mg) PO QAM #90 01/29/24 tablet,extended release 24 hr tabs apixaban 5 mg tablet (Eliquis) See Rx Instructions .Route 02/05/24 .COMPLEX #180 tabs metoclopramide HCl 5 mg tablet 5 mg PO TID #90 tabs 03/07/24 enzalutamide 80 mg tablet (Xtandi) 80 mg PO DAILY #30 tabs 03/31/24 ondansetron HCl 8 mg tablet See Rx Instructions .Route 04/05/24 .COMPLEX #30 tabs tamsulosin 0.4 mg capsule 0.4 mg PO QPM #90 caps 04/05/24 famotidine 40 mg tablet (Pepcid) 40 mg PO BID #30 tabs 04/08/24 morphine 15 mg immediate release 30 mg (2 x 15 mg) PO Q6H PRN pain 04/18/24 tablet 30 days #120 tabs sitagliptin phosphate 100 mg 100 mg PO QAM #90 tabs 04/20/24 tablet (Januvia) cefdinir 300 mg capsule 300 mg PO BID 10 days #20 caps 04/24/24 glycerin (adult) 1 supp ID DAILY PRN constipation 04/24/24 #12 ea Allergies Allergy/AdvReac Type Severity Reaction Status Date / Time vancomycin Allergy HIVES,RASH Verified 04/19/24 11:01 Review of Systems Narrative: Constitutional symptoms: Negative except as documented in HPI. Skin symptoms: Negative except as documented in HPI. Eye symptoms: Negative except as documented in HPI. ENMT symptoms: Negative except as documented in HPI. Respiratory symptoms: Negative except as documented in HPI. Cardiovascular symptoms: Negative except as documented in HPI. Gastrointestinal symptoms: Negative except as documented in HPI. Genitourinary symptoms: Negative except as documented in HPI. Musculoskeletal symptoms: Negative except as documented in HPI. Neurologic symptoms: Negative except as documented in HPI. Psychiatric symptoms: Negative except as documented in HPI. Endocrine symptoms: Negative except as documented in HPI. PFSH ED PFSH: Medical History Viral URI with cough Hospital discharge follow-up Papillary thyroid carcinoma Suprapubic catheter Prostate cancer metastatic to bone Deep vein thrombosis (DVT) of left lower extremity Nausea & vomiting Weight loss Lower urinary tract symptoms (LUTS) Cancer related pain Urinary tract infection Right kidney mass Burning sensation of feet Lumbar stenosis with neurogenic claudication Intervertebral disc disorder with radiculopathy of lumbosacral region Metastasis to bone Dyslipidemia History of diverticulitis Type 2 diabetes mellitus, without long-term current use of insulin Benign essential HTN Post-surgical hypothyroidism Insomnia GERD (gastroesophageal reflux disease) COPD (chronic obstructive pulmonary disease) 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 Other CAD (coronary artery disease) Social History Smoking and tobacco/nicotine status: former use of tobacco/nicotine Quit status (tobacco/nicotine): has quit using Year quit tobacco: 2022 Former quit date comment: stopped in February of this year Alcohol intake: never Substance/Drug Use: never Lives independently: Yes Household members: spouse Marital status: Current occupational status: retired Physical Exam Narrative: EXAM NARRATIVE: General: Alert, no acute distress. Skin: Warm, dry. Head: Normocephalic, atraumatic. Neck: Supple, trachea midline. Eye: Extraocular movements are intact. Ears, nose, mouth and throat: mucosa moist. Cardiovascular: Regular, Normal peripheral perfusion. Respiratory: Lungs are clear to auscultation, respirations are non-labored, breath sounds are equal, Symmetrical chest wall expansion. Gastrointestinal: Soft, some central lower abdominal pain to palpation, Non distended Musculoskeletal: Normal ROM, no deformity. Neurological: Alert and oriented, No focal neurological deficit observed. Psychiatric: Cooperative, appropriate mood & affect. Course Vital Signs: Vital signs: Vital Signs Temperature 97.9 F 04/24/24 12:29 Pulse Rate 110 H 04/24/24 12:29 Respiratory Rate 16 04/24/24 12:29 Pulse Oximetry 92 04/24/24 12:29 Oxygen Delivery Me thod Room Air 04/24/24 12:29 MDM - Abdominal Pain Medical Decision Making Medical decision making: Differential diagnosis including but not limited to and based on the above HPI, review of systems and physical exam: - patient with complaint of constipation: Small bowel obstruction. Gastroparesis. Constipation. Also evaluation for urinary retention, liver disease, renal failure. Orders placed to evaluate differential diagnosis based on the above differential, HPI and physical exam Abdominal x-ray 1 view: Nonobstructive bowel gas pattern. Large amount of fecal content in the colon. This was reviewed and interpreted by myself the emergency room physician. I also reviewed the radiology report. Lab Review: Laboratory results were reviewed and interpreted by myself the emergency room physician. No worrisome findings. No leukocytosis. No anemia. No renal failure. Urinalysis is positive for infection. This is probably chronic but given his new suprapubic pain I am going to treat. CT of the abdomen pelvis with contrast: No acute process. Stable bony metastasis and liver findings. Diverticula without diverticulitis. Constipation. This was reviewed and interpreted by myself the emergency room physician. I also reviewed the radiology report. I reviewed the patient's medical record. Reexamination: Patient has remained stable. No increased work of breathing. He is had no vomiting or nausea. Receiving enema here and mag citrate. Continue to treat at home. Assessment and plan: Constipation Urinary tract infection Suprapubic catheter Chronic narcotic use/chronic pain syndrome ? Enema and a bottle of mag citrate here. Home with a bottle of GoLytely. Instructions given ? Rocephin and normal saline bolus in the emergency room. - Discharged home - Discussed plan with patient. Answered any questions. - Evaluation and treatment of this problem were appropriate in the emergency setting. Lab Data 04/24/24 12:39 04/24/24 12:39 Labs/Radiology: Radiology Impressions KUB X-Ray 04/24/24 12:14 IMPRESSION: 1. Nonobstructed bowel gas pattern. 2. Large amount of fecal content in the colon. 3. Incidental/nonacute findings are listed in the report. Abdomen/Pelvis CT 04/24/24 13:11 IMPRESSION: 1. Stable indeterminate lesions scattered in the liver. 2. Stable non-obstructing left renal stone. 3. Scattered diverticula in the sigmoid colon. No evidence for diverticulitis. 4. Large amount of fecal content in the colon. 5. Multiple sclerotic lesions in the visualized skeleton there are stable, some appear to represent bone islands and others likely represent metastatic foci. 6. Incidental/nonacute findings are listed in the report. Laboratory Results WBC 6.19 10^3/uL (3.29-11.43) 04/24/24 12:39 RBC 4.47 10^6/uL (3.85-5.65) 04/24/24 12:39 Hgb 14.20 g/dL (11.27-16.99) 04/24/24 12:39 Hct 43.7 % (37-53) 04/24/24 12:39 MCV 97.8 fl (82-101) 04/24/24 12:39 MCH 31.8 pg (27-33) 04/24/24 12:39 MCHC 32.5 g/dL (30-55) 04/24/24 12:39 RDW 13.5 % (12.1-15.1) 04/24/24 12:39 Plt Count 171 10^3/cmm (157-399) 04/24/24 12:39 MPV 10.0 fL (7.4-10.4) 04/24/24 12:39 Neut % (Auto) 73.5 % 04/24/24 12:39 Lymph % (Auto) 14.5 % 04/24/24 12:39 [place] % (Auto) 10.5 % 04/24/24 12:39 Eos % (Auto) 0.8 % 04/24/24 12:39 Baso % (Auto) 0.5 % 04/24/24 12:39 Neut # (Auto) 4.55 10^3/uL (1.8-7.7) 04/24/24 12:39 Lymph # (Auto) 0.9 10^3/uL (0.8-4.8) 04/24/24 12:39 [place] # (Auto) 0.7 10^3/uL (0.2-0.9) 04/24/24 12:39 Eos # (Auto) 0.1 10^3/uL (0.0-0.8) 04/24/24 12:39 Baso # (Auto) 0.0 10^3/uL (0.0-0.1) 04/24/24 12:39 Nucleated RBC % (auto) 0 % 04/24/24 12:39 Nucleated RBCs # 0.0 /100WBC 04/24/24 12:39 Sodium 137 mmol/L (136-145) 04/24/24 12:39 Potassium 3.9 mmol/L (3.5-5.1) 04/24/24 12:39 Chloride 101 mmol/L (98-107) 04/24/24 12:39 Carbon Dioxide 22 mmol/L (22-29) 04/24/24 12:39 Anion Gap 17.9 (5-19) 04/24/24 12:39 BUN 10 mg/dL (8-23) 04/24/24 12:39 Creatinine 1.1 mg/dL (0.7-1.2) 04/24/24 12:39 GFR Calculation Not Reportable 04/24/24 12:39 Glucose 160 mg/dL (65-115) H 04/24/24 12:39 Calculated Osmolality 286 mOsm/kg (285-295) 04/24/24 12:39 Lactic Acid 2.9 mmol/L (0.5-2.2) H 04/24/24 12:39 Calcium 9.1 mg/dL (8.5-10.5) 04/24/24 12:39 Total Bilirubin 0.4 mg/dL (0.15-1.2) 04/24/24 12:39 AST 8 U/L (0-40) 04/24/24 12:39 ALT < 5 U/L (0-41) 04/24/24 12:39 Alkaline Phosphatase 65 U/L (40-130) 04/24/24 12:39 Total Protein 7.3 g/dL (6.6-8.7) 04/24/24 12:39 Albumin 3.8 g/dL (3.5-5.2) 04/24/24 12:39 Globulin 3.5 g/dL (1.3-4.6) 04/24/24 12:39 Lipase 9 U/L (13-60) L 04/24/24 12:39 Urine Color Yellow (Yellow) 04/24/24 14:34 Urine Appearance Turbid (CLEAR) A 04/24/24 14:34 Urine pH 6.5 (5-7) 04/24/24 14:34 Ur Specific [place] 1.045 (1.005-1.030) H 04/24/24 14:34 Urine Protein 3+ (Negative) A 04/24/24 14:34 Urine Glucose (UA) Negative (Normal) 04/24/24 14:34 Urine Ketones Negative (Negative) 04/24/24 14:34 Urine Blood 3+ (Negative) A 04/24/24 14:34 Urine Nitrate Positive (Negative) A 04/24/24 14:34 Urine Bilirubin Negative (Negative) 04/24/24 14:34 Urine Urobilinogen 1.0 mg/dL (Negative) 04/24/24 14:34 Ur Leukocyte Esterase 2+ (Negative) A 04/24/24 14:34 Urine RBC >100 /hpf (0-2) H 04/24/24 14:34 Urine WBC >100 /hpf (0-5) H 04/24/24 14:34 Ur Squamous Epith Cells 0-5 /hpf (0-5) 04/24/24 14:34 Amorphous Sediment Not Reportable 04/24/24 14:34 Urine Bacteria 4+ /hpf (NONE) H 04/24/24 14:34 Hyaline Casts 141.57 /lpf 04/24/24 14:34 Coarse Granular Casts 5-10 /lpf H 04/24/24 14:34 All radiology interpretation(s) finalized by discharge Discharge Plan Discharge Patient Disposition: Home Clinical Impression: Constipation, Chronic narcotic use, Urinary tract infection Condition: Stable Prescriptions: New glycerin (adult) Suppository 1 supp ID DAILY PRN (Reason: constipation) Qty: 12 0RF cefdinir 300 mg capsule 300 mg PO BID 10 Days Qty: 20 0RF No Action aspirin 81 mg tablet,delayed release (DR/EC) 81 mg PO DAILY (DME) nebulizer with tubing See Rx Instructions .Route .MEDSUPPLY Qty: 1 0RF Rx Instructions: As directed ipratropium-albuterol 0.5 mg-3 mg(2.5 mg base)/3 mL solution for nebulization 3 ml inhalation Q6H PRN (Reason: wheezing) Qty: 90 0RF docusate sodium 100 mg capsule 100 mg PO DAILY PRN (Reason: constipation) Qty: 60 0RF metoprolol succinate 25 mg tablet extended release 24 hr 12.5 mg PO QAM Qty: 90 1RF lorazepam 1 mg tablet 1 mg PO DAILY PRN (Reason: Anxiety) (DME) Walker See Rx Instructions .ROUTE .MEDSUPPLY Qty: 1 0RF Rx Instructions: As directed PreserVision AREDS 2 Plus MV 200 mcg-15 mcg- 5 mg-1 mg capsule 1 cap PO DAILY cholecalciferol (vitamin D3) 50 mcg (2,000 unit) capsule 50 mcg PO DAILY Qty: 90 1RF trazodone 100 mg tablet 100 mg PO DAILY Qty: 90 2RF Trelegy Ellipta 100-62.5-25 mcg blister with device 1 ea INHALATION DAILY Qty: 60 5RF (DME) catheter bags See Rx Instructions .Route .MEDSUPPLY Qty: 4 5RF Rx Instructions: As directed calcium acw-pib-R9-Zn-nuclear spectroscopist-khadar 250 mg-40 mg- 125 unit-3.75mg tablet 1 tab PO DAILY morphine 15 mg tablet 30 mg PO Q6H PRN (Reason: pain) 30 Days Qty: 120 0RF famotidine [Pepcid] 40 mg tablet 40 mg PO BID Qty: 30 0RF nitroglycerin [Nitrostat] 0.4 mg tablet, sublingual 0.4 mg SUBLINGUAL Q5M PRN (Reason: Chest Pain) Qty: 30 1RF azelastine 137 mcg (0.1 %) spray,non-aerosol 2 spray intranasal BID Qty: 30 1RF Rx Instructions: administer into each nostril rosuvastatin 40 mg tablet 40 mg PO BEDTIME Qty: 90 1RF prednisone 5 mg tablet 5 mg PO BID Qty: 60 0RF levothyroxine 175 mcg tablet See Rx Instructions .ROUTE .COMPLEX Qty: 90 1RF Dose Instruction: TAKE 1 TABLET BY MOUTH EVERY DAY thursday through thursday. take 1/2 tablet BY MOUTH ON thursday, SKIP thursday Rx Instructions: TAKE 1 TABLET BY MOUTH EVERY DAY thursday through thursday. take 1/2 tablet BY MOUTH ON thursday, SKIP thursday Eliquis 5 mg tablet See Rx Instructions .ROUTE .COMPLEX Qty: 180 1RF Dose Instruction: TAKE ONE TABLET BY MOUTH TWICE DAILY Rx Instructions: TAKE ONE TABLET BY MOUTH TWICE DAILY metoclopramide HCl 5 mg tablet 5 mg PO TID Qty: 90 1RF Rx Instructions: TAKE 1 TABLET BY MOUTH THREE TIMES DAILY Xtandi 80 mg tablet 80 mg PO DAILY Qty: 30 0RF ondansetron HCl 8 mg tablet See Rx Instructions .ROUTE .COMPLEX Qty: 30 1RF Dose Instruction: TAKE 1 TABLET BY MOUTH EVERY 8 HOURS NEEDED FOR NAUSEA AND VOMITING Rx Instructions: TAKE 1 TABLET BY MOUTH EVERY 8 HOURS NEEDED FOR NAUSEA AND VOMITING tamsulosin 0.4 mg capsule 0.4 mg PO QPM Qty: 90 1RF Januvia 100 mg tablet 100 mg PO QAM Qty: 90 0RF budesonide 0.5 mg/2 mL suspension for nebulization 0.5 mg inhalation BID carbamazepine 100 mg tablet extended release 12 hr 100 mg PO BID Rx Instructions: TAKE 1 TABLET BY MOUTH TWICE DAILY montelukast 10 mg tablet 10 mg PO DAILY Rx Instructions: TAKE 1 TABLET BY MOUTH EVERY DAY polyethylene glycol 3350 [Miralax] 17 gram powder in packet 17 g PO DAILY Qty: 30 0RF loratadine [Claritin] 10 mg Tablet 10 mg PO QPM acetaminophen [Tylenol Extra Strength] 500 mg Tablet 1,000 mg PO QID PRN (Reason: Fever Or Pain) Probiotic 20 billion cell Capsule 20,000 mmu cells PO DAILY Rx Instructions: administer with a meal Discharge Orders: Discharge ED (Routine); Ordered 04/24/24 Ordered By: Dee Jacobs Referrals: Joann Knowles DO [Primary Care Provider] - Discharge Diet: Usual diet Discharge Activity: Increase activity as tolerated Patient Instructions: Constipation (ED), Opioid Safety, Pain Management Activity Restrictions/Additional Instructions: Thank you for choosing [facility] for your healthcare needs today. Please realize this is an emergency room and that we are providing you with a medical screening exam and this may not be complete and all inclusive of all the testing and or work up that you may need to determine your ailment or severity of your illness. You have been screened and evaluated and felt safe for discharge. Health conditions do change or evolve sometimes and as such it is important that you follow up with your Primary Doctor to be re checked, 3-5 days is a general good time frame for follow up. You are always welcome to return to the ED for re assessment if your symptoms are worsening or you have new concerns Print Language: Haitian Coding Level of Care Code ED Home Health Assistant for Gale Callahan
[2024-04-24 12:46] LABS: Basophils % 0.5 %; Eosinophils # 0.1 10^3/uL (0.0-0.8); Eosinophils % 0.8 %; Hematocrit 43.7 % (37-53); Lymphocytes # 0.9 10^3/uL (0.8-4.8); Lymphocytes % 14.5 %; Mean Corpuscular HGB Conc 32.5 g/dL (30-55); Mean Corpuscular Hemoglobin 31.8 pg (27-33); Mean Corpuscular Volume 97.8 fl (82-101); Monocytes # 0.7 10^3/uL (0.2-0.9); Monocytes % 10.5 %; Neutrophils # 4.55 10^3/uL (1.8-7.7); Neutrophils % 73.5 %; Nucleated Red Blood Cells % 0 %; Platelet Count 171 10^3/cmm (157-399); Red Blood Count 4.47 10^6/uL (3.85-5.65); Red Cell Distribution Width 13.5 % (12.1-15.1); White Blood Count 6.19 10^3/uL (3.29-11.43)
[2024-04-24 13:03] LABS: Lactic Sepsis W/Reflex 2.9 mmol/L (0.5-2.2)
[2024-04-24 13:04] LABS: Alanine Aminotransferase < 5 U/L (0-41); Albumin Level 3.8 g/dL (3.5-5.2); Alkaline Phosphatase 65 U/L (40-130); Anion Gap 17.9 (5-19); Aspartate Amino Transferase 8 U/L (0-40); Blood Urea Nitrogen 10 mg/dL (8-23); Calcium 9.1 mg/dL (8.5-10.5); Carbon Dioxide 22 mmol/L (22-29); Chloride 101 mmol/L (98-107); Creatinine Clr Calc Pharmacy 67.2775; Globulin 3.5 g/dL (1.3-4.6); Glucose 160 mg/dL (65-115); Lipase 9 U/L (13-60); Osmolality Calculated 286 mOsm/kg (285-295); Potassium 3.9 mmol/L (3.5-5.1); Sodium 137 mmol/L (136-145); Total Bilirubin 0.4 mg/dL (0.15-1.2); Total Protein 7.3 g/dL (6.6-8.7)
--- NOTE | 2024-04-24 13:11 | CTR_ITS ---
PROCEDURE INFORMATION: Exam: CT Abdomen And Pelvis With Contrast Exam date and time: 04/24/2024 1:26 PM Age: 79 years old Clinical indication: Abdominal pain; Generalized TECHNIQUE: Imaging protocol: Computed tomography of the abdomen and pelvis with contrast. Radiation optimization: All CT scans at this facility use at least one of these dose optimization techniques: automated exposure control; mA and/or kV adjustment per patient size (includes targeted exams where dose is matched to clinical indication); or iterative reconstruction. Contrast material: OMNI 350; Contrast volume: 100 ml; Contrast route: INTRAVENOUS (IV); COMPARISON: CT abdomen pelvis w con* [id number] 01/17/2024 10:08 AM RADIATION DOSE METRICS: Total DLP (mGy-cm): 838.15 FINDINGS: Tubes, catheters and devices: The bladder is decompressed by a suprapubic catheter. Lungs: Calcified granulomas in the visualized lower lungs. Visualized lungs are clear. Pleural spaces: No pleural effusion. Heart: Visualized portions of the heart are unremarkable. Liver: Stable small low-density lesions in the liver, the largest in the left lobe measures 1.3 x 1.6 cm (series 4, image 13). No new hepatic lesions. Gallbladder and biliary ducts: The gallbladder is unremarkable. No biliary ductal dilatation. Pancreas: Stable pancreatic calcifications suggesting sequela of chronic pancreatitis. No pancreatic ductal dilatation. No pancreatic atrophy. Spleen: Stable calcified granulomas in the spleen. Adrenal glands: The right and left adrenal glands are unremarkable. Kidneys and ureters: Stable subcentimeter hypodense foci in both right and left kidneys that are too small to characterize, however likely represent small cysts. Cysts in the left kidney are stable, the largest measures 5.7 cm. Stable non-obstructing stone in the left kidney measuring 3.6 mm (series 4, image 39). The right and left ureters are unremarkable. Stomach and bowel: Scattered diverticula in the sigmoid colon. No evidence for diverticulitis. Large amount of fecal content in the colon. No acute abnormality in the stomach. No acute abnormality in the small bowel. Appendix: The appendix is visualized and is unremarkable. No findings to suggest acute appendicitis. Intraperitoneal space: No free intraperitoneal air. No ascites. No loculated fluid collections to suggest an abscess. Vasculature: Stable moderate atherosclerotic calcifications in the visualized arteries. No evidence for aortic aneurysm or aortic dissection. Hepatic veins, portal veins, splenic vein, and SMV are patent. Lymph nodes: No lymphadenopathy. No lymphadenopathy. Urinary bladder: Unremarkable as visualized. Reproductive: The patient has had a previous prostatectomy. Bones/joints: Degenerative changes in the spine, sacroiliac joints, and hips. Multiple sclerotic lesions in the visualized skeleton there are stable, some appear to represent bone islands and others likely represent metastatic foci. Soft tissues: No acute abnormality in the extra-abdominal soft tissues. No acute abnormality in the extra-abdominal soft tissues. CT/CT abdomen pelvis w con* [id number] IMPRESSION: 1. Stable indeterminate lesions scattered in the liver. 2. Stable non-obstructing left renal stone. 3. Scattered diverticula in the sigmoid colon. No evidence for diverticulitis. 4. Large amount of fecal content in the colon. 5. Multiple sclerotic lesions in the visualized skeleton there are stable, some appear to represent bone islands and others likely represent metastatic foci. 6. Incidental/nonacute findings are listed in the report.
[2024-04-24] MEDS: iohexol 350 mg/mL 500 mL Btl (per mL) IV (13:29)
[2024-04-24 14:32] LABS: Reflex Lactate Order REFLEX LACTIC ORDERD
[2024-04-24 14:42] LABS: Bilirubin Urine Negative (Negative); Blood Urine 3+ (Negative); Glucose Urine UA Negative (Normal); Ketones Urine Negative (Negative); Leukocyte Esterase Urine 2+ (Negative); Nitrate Urine Positive (Negative); Protein Urine 3+ (Negative); Urine Appearance Turbid (CLEAR); Urine Color Yellow (Yellow); pH Urine 6.5 (5-7)
[2024-04-24 14:47] LABS: Bacteria Urine 4+ /hpf; Hyaline Casts Urine 141.57 /lpf; RBC Urine >100 /hpf (0-2); Squamous Epithelial Cell Urine 0-5 /hpf (0-5); WBC Urine >100 /hpf (0-5)
[2024-04-24] MEDS: mineral oil ENEMA 133 mL PR (14:53)
[2024-04-24] MEDS: sodium chloride 0.9% 1,000 ML 999 ML IV (14:53)
[2024-04-24] MEDS: magnesium citrate Btl 296 mL PO (14:53)
[2024-04-24 15:03] LABS: Add Urine Culture? Yes; Specific Gravity, Urine 1.045 (1.005-1.030); UA Slide Review UA Slide Review Perf
[2024-04-24] MEDS: cefTRIAXone 1,000 mg SDV 1000 MG IVP (15:32)
[2024-04-24] MEDS: peg /e-lyte soln 4,000 mL Btl 4000 ML PO (15:35)
[2024-04-24 15:41] VITALS: BP 124/70; PULSE 79; O2SAT 96
== END 2024-04-24 15:44 | disposition home or self-care (01) ==
PROVIDERS: Emergency Provider Emergency Medicine; PCP Family Medicine
DX: K59.00 Constipation, unspecified (principal); N39.0 Urinary tract infection, site not specified; F11.20 Opioid dependence, uncomplicated; Z79.01 Long term (current) use of anticoagulants; Z87.891 Personal history of nicotine dependence; Z85.46 Personal history of malignant neoplasm of prostate; E11.9 Type 2 diabetes mellitus without complications; I10 Essential (primary) hypertension; J44.9 Chronic obstructive pulmonary disease, unspecified; Z85.850 Personal history of malignant neoplasm of thyroid
CPT/HCPCS: 51798; 74018; 74177; 80053; 81001; 83605; 83690; 85025; 87077; 87086; 87186; 96361; 96374; 99285; J0696; J7030; J9999

== ENCOUNTER → 2024-05-02 09:50 | Outpatient (BNVA) | payer MEDICARE, MEDICAID, SELFPAY | PROVIDERS: PCP Family Medicine; Visit Provider Podiatrist Foot & Ankle Surgery | DX: E11.8 Type 2 diabetes mellitus with unspecified complications (principal); L60.3 Nail dystrophy; L84 Corns and callosities; G62.89 Other specified polyneuropathies; E11.9 Type 2 diabetes mellitus without complications; E11.40 Type 2 diabetes mellitus with diabetic neuropathy, unspecified | CPT/HCPCS: 11056; 11721 ==

== ENCOUNTER 2024-05-16 10:44 | Outpatient (CLI) | payer MEDICARE, MEDICAID, SELFPAY ==
[2024-05-16 11:57] LABS: Free T4 Free Thyroxine 1.85 ng/dL (0.82-1.77); Thyroid Stimulating Hormone 0.04 uIU/mL (0.27-4.20)
== END 2024-05-16 10:45 | disposition home or self-care (01) ==
LOC: LAB 10:49
PROVIDERS: PCP Family Medicine; Visit Provider Internal Medicine
DX: C73 Malignant neoplasm of thyroid gland (principal); E89.0 Postprocedural hypothyroidism
CPT/HCPCS: 36415; 84432; 84439; 84443; 86800

== ENCOUNTER → 2024-05-17 10:14 | Outpatient (BNVA) | payer MEDICARE, MEDICAID, SELFPAY | PROVIDERS: PCP Family Medicine; Visit Provider Internal Medicine | DX: E89.0 Postprocedural hypothyroidism (principal); C73 Malignant neoplasm of thyroid gland; C61 Malignant neoplasm of prostate; R73.03 Prediabetes | CPT/HCPCS: 99214 ==

== ENCOUNTER 2024-05-18 12:40 | Oncology outpatient (recurring) (ONCR) | payer MEDICARE, MEDICAID, SELFPAY ==
[2024-05-18 13:15] LABS: Basophils % 0.4 %; Eosinophils % 0.7 %; Hematocrit 39.5 % (37-53); Lymphocytes # 0.9 10^3/uL (0.8-4.8); Lymphocytes % 15.1 %; Mean Corpuscular HGB Conc 32.9 g/dL (30-55); Mean Corpuscular Hemoglobin 32.8 pg (27-33); Mean Corpuscular Volume 99.7 fl (82-101); Mean Platelet Volume 10.6 fL (7.4-10.4); Monocytes # 0.6 10^3/uL (0.2-0.9); Neutrophils # 4.07 10^3/uL (1.8-7.7); Neutrophils % 72.4 %; Nucleated Red Blood Cells % 0 %; Platelet Count 155 10^3/cmm (157-399); Red Blood Count 3.96 10^6/uL (3.85-5.65); Red Cell Distribution Width 13.2 % (12.1-15.1); White Blood Count 5.62 10^3/uL (3.29-11.43)
[2024-05-18 13:46] LABS: Alanine Aminotransferase < 5 U/L (0-41); Albumin Level 3.8 g/dL (3.5-5.2); Alkaline Phosphatase 56 U/L (40-130); Anion Gap 14.9 (5-19); Aspartate Amino Transferase 10 U/L (0-40); Blood Urea Nitrogen 10 mg/dL (8-23); Calcium 8.9 mg/dL (8.5-10.5); Carbon Dioxide 26 mmol/L (22-29); Chloride 103 mmol/L (98-107); Globulin 3.1 g/dL (1.3-4.6); Glucose 127 mg/dL (65-115); Osmolality Calculated 291 mOsm/kg (285-295); Potassium 3.9 mmol/L (3.5-5.1); Sodium 140 mmol/L (136-145); Total Bilirubin 0.3 mg/dL (0.15-1.2); Total Protein 6.9 g/dL (6.6-8.7); Uric Acid 2.7 mg/dL (3.4-7.0)
== END 2024-06-08 23:59 | disposition home or self-care (01) ==
PROVIDERS: Internal Medicine; PCP Family Medicine; Visit Provider Internal Medicine Medical Oncology
DX: C61 Malignant neoplasm of prostate (principal); C79.51 Secondary malignant neoplasm of bone; D72.829 Elevated white blood cell count, unspecified; D64.9 Anemia, unspecified; N13.8 Other obstructive and reflux uropathy; N40.1 Benign prostatic hyperplasia with lower urinary tract symptoms; Z93.59 Other cystostomy status; Z79.899 Other long term (current) drug therapy
CPT/HCPCS: 36415; 80053; 84153; 84550; 85025; 99213

== ENCOUNTER 2024-05-20 11:12 | Emergency (ER) | payer MEDICARE, MEDICAID, SELFPAY ==
[2024-05-20 11:35] VITALS: BP 131/81; PULSE 59; RESP 18; TEMP 36.7; O2SAT 95
--- NOTE | 2024-05-20 12:39 | PC.PHAR ---
Pt has home health care come in and set up medications for each week. List was provided and pt took am medications today.
--- NOTE | 2024-05-20 12:52 | W.ED.MALEGU ---
HPI - Male Genitourinary General: Chief complaint: Urogenital-Male Stated complaint: sent by [facility] at home pubic tube Time Seen by Provider: 05/20/24 11:42 Source: patient and family Mode of arrival: ambulatory Limitations: no limitations History of Present Illness: Home health trying to replace his suprapubic [place] and was unable to insert the new [place] far enough to get the balloon to inflate. Patient reports appear for issues. Reports he has been having some bleeding in it. Related Data Home Medications ?Medication ?Instructions ?Recorded ?Confirmed aspirin 81 mg tablet,delayed 81 mg PO DAILY 03/29/19 05/20/24 release mv-mn-folic 200 mcg-vit K 15 1 cap PO DAILY 04/09/23 05/20/24 mcg-lutein 5 mg-zeaxanthin 1 mg capsule (PreserVision AREDS 2 Plus Multivit) loratadine 10 mg tablet (Claritin) 10 mg PO QPM 07/31/23 05/20/24 budesonide 0.5 mg/2 mL suspension 0.5 mg inhalation BID 01/17/24 05/20/24 for nebulization montelukast 10 mg tablet 10 mg PO DAILY 01/17/24 05/20/24 lorazepam 1 mg tablet 1 mg PO DAILY PRN Anxiety 02/01/24 05/20/24 calcium 250 mg-magnesium 40 mg-D3 1 tab PO DAILY 02/25/24 05/20/24 125 unit-zinc 3.59ef-aps-myys tablet acetaminophen 500 mg tablet 1,000 mg PO QID PRN Fever Or Pain 04/24/24 05/20/24 (Tylenol Extra Strength) lactobacillus comb no.10 20 20,000 mmu cells PO DAILY 04/24/24 05/20/24 billion cell capsule (Probiotic) levothyroxine 175 mcg tablet See Rx Instructions .Route .COMPLEX 05/18/24 05/20/24 triamcinolone acetonide 55 mcg 2 spray intranasal DAILY 05/18/24 05/20/24 nasal spray aerosol apixaban 5 mg tablet (Eliquis) 5 mg PO BID 05/20/24 05/20/24 azelastine 137 mcg (0.1 %) nasal 2 spray intranasal BID 05/20/24 05/20/24 spray carbamazepine 100 mg 100 mg PO BID 05/20/24 05/20/24 tablet,extended release,12 hr famotidine 40 mg tablet 40 mg PO BID 05/20/24 05/20/24 glipizide 2.5 mg tablet, extended 2.5 mg PO QAM 05/20/24 05/20/24 release 24 hr metoprolol succinate 25 mg 12.5 mg PO QAM 05/20/24 05/20/24 tablet,extended release 24 hr ondansetron HCl 8 mg tablet 8 mg PO Q8H PRN Nausea And Vomiting 05/20/24 05/20/24 trazodone 100 mg tablet 100 mg PO QPM 05/20/24 05/20/24 Previous Rx's ?Medication ?Instructions ?Recorded nitroglycerin 0.4 mg sublingual 0.4 mg sublingual Q5M PRN Chest 07/21/22 tablet (Nitrostat) Pain #30 tabs Walker #1 ea 07/28/22 catheter bags #4 ea 10/08/23 fluticasone fur. 100 mcg-umeclid 1 ea inhalation DAILY #60 ea 10/13/23 62.5 mcg-vilant 25 mcg inhalat.powder (Trelegy Ellipta) ipratropium 0.5 mg-albuterol 3 mg 3 ml inhalation Q6H PRN wheezing 11/06/23 (2.5 mg base)/3 mL nebulization #90 mL soln nebulizer with tubing #1 ea 11/06/23 rosuvastatin 40 mg tablet 40 mg PO BEDTIME #90 tabs 12/29/23 prednisone 5 mg tablet 5 mg PO BID #60 tabs 01/14/24 polyethylene glycol 3350 17 gram 17 g PO DAILY #30 ea 01/18/24 oral powder packet (Miralax) docusate sodium 100 mg capsule 100 mg PO DAILY PRN constipation 01/29/24 #60 caps tamsulosin 0.4 mg capsule 0.4 mg PO QPM #90 caps 04/05/24 morphine 15 mg immediate release 30 mg (2 x 15 mg) PO Q6H PRN pain 04/18/24 tablet 30 days #120 tabs sitagliptin phosphate 100 mg 100 mg PO QAM #90 tabs 04/20/24 tablet (Januvia) glycerin (adult) 1 supp [place] DAILY PRN constipation 04/24/24 #12 ea enzalutamide 80 mg tablet (Xtandi) 80 mg PO DAILY #30 tabs 04/25/24 cholecalciferol (vitamin D3) 50 50 mcg PO DAILY #90 caps 04/26/24 mcg (2,000 unit) capsule metoclopramide HCl 5 mg tablet 5 mg PO TID #90 tabs 05/06/24 ciprofloxacin HCl 500 mg tablet 500 mg PO BID 5 days #10 tabs 05/20/24 (Cipro) Allergies Allergy/AdvReac Type Severity Reaction Status Date / Time vancomycin Allergy HIVES,RASH Verified 05/18/24 13:15 Review of Systems General: Reports: 10 or more systems reviewed and unremarkable except in HPI and below PFSH ED PFSH: Medical History Viral URI with cough Hospital discharge follow-up Papillary thyroid carcinoma Suprapubic catheter Prostate cancer metastatic to bone Deep vein thrombosis (DVT) of left lower extremity Nausea & vomiting Weight loss Lower urinary tract symptoms (LUTS) Cancer related pain Urinary tract infection Right kidney mass Burning sensation of feet Lumbar stenosis with neurogenic claudication Intervertebral disc disorder with radiculopathy of lumbosacral region Metastasis to bone Dyslipidemia History of diverticulitis Type 2 diabetes mellitus, without long-term current use of insulin Benign essential HTN Post-surgical hypothyroidism Insomnia GERD (gastroesophageal reflux disease) COPD (chronic obstructive pulmonary disease) 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 Prostate cancer History of thyroid cancer Surgical History (Updated 05/18/24 @ 13:26 by Amor Cook) History of prostate surgery H/O transurethral resection of prostate History of cystostomy S/P cystourethroscopy with dilation of urethral stricture History of lumbar discectomy History of colonoscopy (07/12/19) diverticulosis, repeat 10 years History of orchiectomy, bilateral H/O total knee replacement BILATERAL H/O hernia repair History of hemorrhoidectomy History of uvulectomy History of thyroidectomy, subtotal Family History Mother , in her 90's Cancer Diabetes Sister Diabetes Father , in his 70's No problems noted. Other CAD (coronary artery disease) Social History Smoking and tobacco/nicotine status: never used tobacco/nicotine Quit status (tobacco/nicotine): has quit using Year quit tobacco: 2022 Former quit date comment: stopped in February of this year Alcohol intake: never Substance/Drug Use: never Lives independently: Yes Household members: spouse Marital status: Current occupational status: retired Physical Exam Const: COMMON NORMALS: no acute distress, average body habitus, patient oriented x3, healthy appearing, alert and well nourished GENERAL APPEARANCE: well kempt and well developed HENMT: COMMON NORMALS: normocephalic, atraumatic, external ears normal and moist oral mucous membranes HEAD & SCALP: normocephalic and atraumatic EXTERNAL EAR: Yes external ears normal Eye: COMMON NORMALS: Equal, round and reactive pupils present, EOMs intact bilaterally and conjunctivae normal CONJUNCTIVA: Yes conjunctivae normal PUPIL: Yes Equal, round and reactive pupils present Neck/C-Spine: COMMON NORMALS: full ROM, no lymphadenopathy and supple Chest: CHEST: Yes Symmetrical chest wall rise and No Surgical scars present (Chest) Resp: COMMON NORMALS: normal respiratory effort, No retractions, No use of accessory muscles and clear to auscultation bilaterally AUSCULTATION: clear to auscultation bilaterally Cardio: COMMON NORMALS: regular rate, regular rhythm, S1 normal heart sound present, S2 normal heart sound present, No gallops present (Cardio), No clicks present (Cardio), No murmurs present (Cardio) and No rub (Cardio) RATE: regular rate RHYTHM: regular rhythm HEART SOUNDS: S1 normal heart sound present, S2 normal heart sound present and no murmurs PERIPHERAL PULSES: other (Radial pulses 2+ and symmetric) GI: COMMON NORMALS: Soft to palpation, non-tender and no masses INSPECTION: No abdominal distension PALPATION: Yes Soft to palpation, No Guarding due to palpation present (GI) and No Rebound tenderness present OTHER: Suprapubic placed with small amount of granulation tissue. Attempted to pass a 16 Indian catheter and failed. So then placed 12 Indian without difficulty. Patient informed to follow-up with his urologist ANI. : COMMON NORMALS: Yes no CVA tenderness BLADDER/KIDNEY EXAM: Yes no CVA tenderness Back/Pelvis: COMMON NORMALS: no CVA tenderness Extremity: COMMON NORMALS: normal to inspection, full ROM, capillary refill normal and no clubbing, cyanosis or edema Neuro: COMMON NORMALS: patient oriented x3 SENSORIUM/ORIENTATION: Yes alert Psych: APPEARANCE: Yes well kempt Skin: COMMON NORMALS: no rashes or lesions noted, no wounds, turgor normal and no jaundice GENERAL SKIN EXAM: no rashes or lesions noted and turgor normal Procedures Catheter Insertion (Urinary) Date of insertion: 05/20/24 Time of insertion: 12:30 Reason for placing: Yes (supra-pubic that had failed placement by home health RN) Reason for placing indwelling catheter: Urinary obstruction Bladder scan/ultrasound used before catheterization: No Estimated amount of urine (mLs): 20 Antiseptic solution prep: Other (chlorhex) Topical anesthesia used: Yes (urojet 7cc) Catheter type/location: Suprapubic Size (Indian): 12 Catheter balloon size (mL): 10 Catheter balloon amount: 9 Results: successfully catheterized-immediate flow and retried with different size/type catheter (16 wouldn't pass. 12 fr passed) Procedure performed: with complications Complications: [address] Course Vital Signs: Vital signs: Vital Signs Temperature 98.1 F 05/20/24 11:35 Pulse Rate 59 L 05/20/24 11:35 Respiratory Rate 18 05/20/24 11:35 Blood Pressure 131/81 05/20/24 11:35 Pulse Oximetry 95 05/20/24 11:35 Oxygen Delivery Me thod Room Air 05/20/24 11:35 MDM - Male Medical Decision Making Suprapubic catheter successfully replaced. Irrigates well. Sample sent to lab. Shows mild infection we will start the patient on ciprofloxacin. Have patient follow-up with urology as soon as possible. Differential Diagnosis Likely urinary tract infection and acute retention of urine Medical Records I reviewed the patient's medical records. Lab Data I reviewed the patient's lab results. Laboratory Results Urine Color Yellow (Yellow) 05/20/24 13:05 Urine Appearance Cloudy (CLEAR) A 05/20/24 13:05 Urine pH 5 (5-7) 05/20/24 13:05 Ur Specific [place] 1.025 (1.005-1.030) 05/20/24 13:05 Urine Protein 3+ (Negative) A 05/20/24 13:05 Urine Glucose (UA) Norm (Normal) 05/20/24 13:05 Urine Ketones Negative (Negative) 05/20/24 13:05 Urine Blood 3+ (Negative) A 05/20/24 13:05 Urine Nitrate Negative (Negative) 05/20/24 13:05 Urine Bilirubin Neg (Negative) 05/20/24 13:05 Urine Urobilinogen Neg mg/dL (Negative) 05/20/24 13:05 Ur Leukocyte Esterase 1+ (Negative) A 05/20/24 13:05 Urine RBC >100 /hpf (0-2) H 05/20/24 13:05 Urine WBC >100 /hpf (0-5) H 05/20/24 13:05 Ur Squamous Epith Cells 0-5 /hpf (0-5) 05/20/24 13:05 Amorphous Sediment Not Reportable 05/20/24 13:05 Urine Bacteria None seen /hpf (NONE) 05/20/24 13:05 Hyaline Casts 250.32 /lpf 05/20/24 13:05 Fine Granular Casts 0-4 /lpf H 05/20/24 13:05 Coarse Granular Casts 5-10 /lpf H 05/20/24 13:05 No radiology studies performed this visit Discharge Plan Discharge Patient Disposition: Home Clinical Impression: Suprapubic catheter, Urinary tract infection Condition: Stable Prescriptions: New ciprofloxacin HCl [Cipro] 500 mg tablet 500 mg PO BID 5 Days Qty: 10 0RF No Action aspirin 81 mg tablet,delayed release (DR/EC) 81 mg PO DAILY (DME) nebulizer with tubing See Rx Instructions .Route .MEDSUPPLY Qty: 1 0RF Rx Instructions: As directed ipratropium-albuterol 0.5 mg-3 mg(2.5 mg base)/3 mL solution for nebulization 3 ml inhalation Q6H PRN (Reason: wheezing) Qty: 90 0RF docusate sodium 100 mg capsule 100 mg PO DAILY PRN (Reason: constipation) Qty: 60 0RF lorazepam 1 mg tablet 1 mg PO DAILY PRN (Reason: Anxiety) levothyroxine 175 mcg tablet See Rx Instructions .ROUTE .COMPLEX Dose Instruction: TAKE 1 TABLET BY MOUTH EVERY DAY thursday through thursday. take 1/2 tablet BY MOUTH ON thursday, SKIP thursday Rx Instructions: TAKE 1 TABLET BY MOUTH EVERY DAY Thursday through thursday, SKIP Thursday triamcinolone acetonide 55 mcg aerosol,spray 2 spray intranasal DAILY Rx Instructions: administer into each nostril (DME) Walker See Rx Instructions .ROUTE .MEDSUPPLY Qty: 1 0RF Rx Instructions: As directed PreserVision AREDS 2 Plus MV 200 mcg-15 mcg- 5 mg-1 mg capsule 1 cap PO DAILY Trelegy Ellipta 100-62.5-25 mcg blister with device 1 ea INHALATION DAILY Qty: 60 5RF (DME) catheter bags See Rx Instructions .Route .MEDSUPPLY Qty: 4 5RF Rx Instructions: As directed calcium ofx-rby-J8-Zn-photocopying equipment repairer-khadar 250 mg-40 mg- 125 unit-3.75mg tablet 1 tab PO DAILY morphine 15 mg tablet 30 mg PO Q6H PRN (Reason: pain) 30 Days Qty: 120 0RF nitroglycerin [Nitrostat] 0.4 mg tablet, sublingual 0.4 mg SUBLINGUAL Q5M PRN (Reason: Chest Pain) Qty: 30 1RF rosuvastatin 40 mg tablet 40 mg PO BEDTIME Qty: 90 1RF prednisone 5 mg tablet 5 mg PO BID Qty: 60 0RF tamsulosin 0.4 mg capsule 0.4 mg PO QPM Qty: 90 1RF Januvia 100 mg tablet 100 mg PO QAM Qty: 90 0RF Xtandi 80 mg tablet 80 mg PO DAILY Qty: 30 0RF cholecalciferol (vitamin D3) 50 mcg (2,000 unit) capsule 50 mcg PO DAILY Qty: 90 1RF metoclopramide HCl 5 mg tablet 5 mg PO TID Qty: 90 1RF budesonide 0.5 mg/2 mL suspension for nebulization 0.5 mg inhalation BID montelukast 10 mg tablet 10 mg PO DAILY polyethylene glycol 3350 [Miralax] 17 gram powder in packet 17 g PO DAILY Qty: 30 0RF loratadine [Claritin] 10 mg Tablet 10 mg PO QPM acetaminophen [Tylenol Extra Strength] 500 mg Tablet 1,000 mg PO QID PRN (Reason: Fever Or Pain) Probiotic 20 billion cell Capsule 20,000 mmu cells PO DAILY Rx Instructions: administer with a meal glycerin (adult) Suppository 1 supp [place] DAILY PRN (Reason: constipation) Qty: 12 0RF famotidine 40 mg tablet 40 mg PO BID glipizide 2.5 mg tablet extended release 24hr 2.5 mg PO QAM metoprolol succinate 25 mg tablet extended release 24 hr 12.5 mg PO QAM azelastine 137 mcg (0.1 %) spray,non-aerosol 2 spray INTRANASAL BID ondansetron HCl 8 mg tablet 8 mg PO Q8H PRN (Reason: Nausea And Vomiting) carbamazepine 100 mg tablet extended release 12 hr 100 mg PO BID trazodone 100 mg tablet 100 mg PO QPM Eliquis 5 mg tablet 5 mg PO BID Discharge Orders: Discharge ED (Routine); Ordered 05/20/24 Ordered By: Olaf Mcmillan Referrals: Joann Knowles DO [Primary Care Provider] - Discharge Diet: Advance as tolerated Discharge Activity: Resume usual activity Patient Instructions: How to Care for Your Suprapubic Catheter (DC) Activity Restrictions/Additional Instructions: Follow-up with your urologist as soon as possible. This catheter is too small for long-term use. Print Language: Turkmen Coding Level of Care Code ED Guest Relations Representative for Gale Callahan
[2024-05-20] MEDS: lidocaine 2% Urojet 20 mL TOPICAL (13:07)
[2024-05-20 13:20] LABS: Bacteria Urine None Seen /hpf; Hyaline Casts Urine 250.32 /lpf; RBC Urine >100 /hpf (0-2); Squamous Epithelial Cell Urine 0-5 /hpf (0-5); WBC Urine >100 /hpf (0-5)
[2024-05-20 13:34] LABS: Add Urine Microscopic? YES; Bilirubin Urine Neg (Negative); Blood Urine 3+ (Negative); Glucose Urine UA Norm (Normal); Ketones Urine Negative (Negative); Leukocyte Esterase Urine 1+ (Negative); Nitrate Urine Negative (Negative); Protein Urine 3+ (Negative); Specific Gravity, Urine 1.025 (1.005-1.030); Urine Appearance Cloudy (CLEAR); Urine Color Yellow (Yellow); Urobilinogen Urine Neg (Negative); pH Urine 5 (5-7)
[2024-05-20 13:35] LABS: Add Urine Culture? Yes
[2024-05-20 13:39] LABS: Fine Granular Casts Urine 0-4 /lpf
[2024-05-20] MEDS: ciprofloxacin 500 mg Tablet PO (14:35)
== END 2024-05-20 14:35 | disposition home or self-care (01) ==
PROVIDERS: Emergency Provider Emergency Medicine; PCP Family Medicine
DX: T83.511A Infection and inflammatory reaction due to indwelling urethral catheter, initial encounter (principal); X58.XXXA Exposure to other specified factors, initial encounter; Z79.82 Long term (current) use of aspirin; Z79.01 Long term (current) use of anticoagulants; Z85.850 Personal history of malignant neoplasm of thyroid; Z85.46 Personal history of malignant neoplasm of prostate; J44.9 Chronic obstructive pulmonary disease, unspecified; E11.9 Type 2 diabetes mellitus without complications; I10 Essential (primary) hypertension
CPT/HCPCS: 51705; 81001; 87077; 87086; 87186; 99283; J9999

== ENCOUNTER 2024-07-06 09:12 | Outpatient (CLI) | payer MEDICARE, MEDICAID, SELFPAY ==
--- NOTE | 2024-07-06 09:18 | CT_ITS ---
WS: [id number] CT NECK TECHNIQUE: Contrast-enhanced CT of the neck with coronal and sagittal reformatted images. CLINICAL INFORMATION: MASS CANCER SURVEILLANCE/HX HEAD NECK CANCER COMPARISON: CT neck 08/01 DLP: 159.[address] scans at [facility] use at least one of these dose optimization techniques: automated exposure control; mA and/or Otherwise no cervical lymphadenopathy. kV adjustment per patient size (includes targeted exams where dose is matched to clinical indication); or iterative reconstruction. FINDINGS: Prior postoperative changes thyroidectomy. Surgical clips in the thyroid bed. No evidence of recurrent thyroid mass or lesion. Sclerotic lesions involving the T1 and T2 and T4 vertebral body suspicious for blastic metastasis. This appears similar to the prior studies. Recommend correlation with PSA. Paranasal sinuses are well aerated. Small retention cyst RIGHT maxillary sinus. Mastoid air cells are well aerated. Normal posterior nasopharynx. Normal parapharyngeal fat. Parotid glands are normal. Submandibular glands are normal. No evidence of supraglottic or glottic mass. Normal subglottic airway. Aortic calcification. Surgical clips along the RIGHT sternocleidomastoid and RIGHT neck. Enhancing lymph node anterior to the RIGHT jugular vein, medial to the sternocleidomastoid and posterior to the RIGHT submandibular gland measuring 9 mm is slightly more prominent today compared to 2022. No other suspicious lymph nodes. CT/CT neck w con* [id number] IMPRESSION: 1. Enhancing RIGHT level 2 cervical lymph node measuring 9 mm appears more pro minent compared to 2022. This may correspond to the palpable abnormality. This can be further evaluated with PET/CT or interval follow-up. 2. Prior thyroidectomy. No recurrence in the thyroidectomy bed. 3. Normal salivary glands. 4. 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 Recommend correlation PSA. These appear relatively stable comp ared to the prior studies.
[2024-07-06] MEDS: iohexol 350 mg/mL 500 mL Btl (per mL) IV (09:48)
== END 2024-07-06 09:13 | disposition home or self-care (01) ==
PROVIDERS: PCP Family Medicine; Visit Provider Specialist
DX: R59.0 Localized enlarged lymph nodes (principal); Z98.890 Other specified postprocedural states; R93.89 Abnormal findings on diagnostic imaging of other specified body structures; M27.40 Unspecified cyst of jaw; I70.0 Atherosclerosis of aorta
CPT/HCPCS: 70491

== ENCOUNTER 2024-07-11 12:37 | Oncology outpatient (recurring) (ONCR) | payer OTHER, MEDICAID, SELFPAY ==
[2024-07-11 13:11] LABS: Basophils % 0.9 %; Eosinophils % 0.6 %; Hematocrit 39.8 % (37-53); Lymphocytes # 0.6 10^3/uL (0.8-4.8); Lymphocytes % 20.1 %; Mean Corpuscular HGB Conc 32.2 g/dL (30-55); Mean Corpuscular Hemoglobin 32.8 pg (27-33); Mean Corpuscular Volume 102.1 fl (82-101); Monocytes # 0.4 10^3/uL (0.2-0.9); Monocytes % 13.5 %; Neutrophils # 2.05 10^3/uL (1.8-7.7); Neutrophils % 64.6 %; Nucleated Red Blood Cells % 0 %; Platelet Count 159 10^3/cmm (157-399); Red Cell Distribution Width 13.7 % (12.1-15.1); Reticulocyte % 1.3 % (0.5-2.0); White Blood Count 3.18 10^3/uL (3.29-11.43)
[2024-07-11 13:44] LABS: Alanine Aminotransferase < 5 U/L (0-41); Albumin Level 3.7 g/dL (3.5-5.2); Alkaline Phosphatase 59 U/L (40-130); Anion Gap 13.5 (5-19); Aspartate Amino Transferase 9 U/L (0-40); Blood Urea Nitrogen 13 mg/dL (8-23); Calcium 9.1 mg/dL (8.5-10.5); Carbon Dioxide 29 mmol/L (22-29); Chloride 101 mmol/L (98-107); Glucose 144 mg/dL (65-115); Lactate Dehydrogenase 191 U/L (135-225); Osmolality Calculated 291 mOsm/kg (285-295); Potassium 4.5 mmol/L (3.5-5.1); Sodium 139 mmol/L (136-145); Total Bilirubin 0.4 mg/dL (0.15-1.2); Total Protein 6.7 g/dL (6.6-8.7)
[2024-07-11 13:45] LABS: Testosterone Total < 2.5 ng/dL (193-740)
[2024-07-11 14:04] LABS: Ferritin 88 ng/mL (30-400); Iron 85 ug/dL (59-158); Percent Saturation 29.6 % (20-50); Total Iron Binding Capacity 287 mcg/dl; Unsaturated Iron Binding 202 ug/dL (112-347)
[2024-07-11 14:09] LABS: Folate Level 5.1 ng/mL (4.5-32.2)
[2024-07-11 14:20] LABS: Vitamin B12 304 pg/mL (232-1245)
[2024-07-11] MEDS: denosumab 120 mg SDV SUBCUT (15:03)
== END 2024-08-08 23:59 | disposition home or self-care (01) ==
PROVIDERS: Internal Medicine; PCP Family Medicine; Visit Provider Internal Medicine Medical Oncology
DX: C61 Malignant neoplasm of prostate (principal); C79.51 Secondary malignant neoplasm of bone; C73 Malignant neoplasm of thyroid gland; Z79.899 Other long term (current) drug therapy; K21.9 Gastro-esophageal reflux disease without esophagitis; R03.0 Elevated blood-pressure reading, without diagnosis of hypertension; R63.4 Abnormal weight loss; N40.1 Benign prostatic hyperplasia with lower urinary tract symptoms; Z68.23 Body mass index [BMI] 23.0-23.9, adult; Z93.59 Other cystostomy status
CPT/HCPCS: 36415; 80053; 82607; 82728; 82746; 83010; 83540; 83550; 83615; 84153; 84403; 85025; 85045; 96372; 99214; J0897

== ENCOUNTER 2024-07-15 08:38 | Outpatient (CLI) | payer OTHER, MEDICAID, SELFPAY ==
[2024-07-15 09:52] LABS: Free T4 Free Thyroxine 1.55 ng/dL (0.82-1.77); Thyroid Stimulating Hormone 0.18 uIU/mL (0.27-4.20)
[2024-07-19 10:38] LABS: Thyroglobulin AB 67 IU/mL (< or = 1)
[2024-07-21 16:24] LABS: Thyroglobulin Level <0.4 ng/mL
== END 2024-07-15 08:39 | disposition home or self-care (01) ==
LOC: LAB 08:41
PROVIDERS: PCP Family Medicine; Visit Provider Internal Medicine
DX: E89.0 Postprocedural hypothyroidism (principal); C73 Malignant neoplasm of thyroid gland; C61 Malignant neoplasm of prostate
CPT/HCPCS: 36415; 84432; 84439; 84443; 86800

== ENCOUNTER → 2024-08-02 10:31 | Outpatient (BNVA) | payer OTHER, MEDICAID, SELFPAY | PROVIDERS: PCP Family Medicine; Visit Provider Podiatrist Foot & Ankle Surgery | DX: E11.8 Type 2 diabetes mellitus with unspecified complications (principal); L60.3 Nail dystrophy; L84 Corns and callosities; G62.89 Other specified polyneuropathies; E11.49 Type 2 diabetes mellitus with other diabetic neurological complication | CPT/HCPCS: 11056; 11721 ==

== ENCOUNTER 2024-08-26 03:17 | Emergency (ER) | payer OTHER, MEDICAID, SELFPAY ==
--- OUTSIDE RECORDS SUMMARY | 2024-08-03 08:45 | XMS_ITS ---
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 Name Role Phone Katelin WYATT, Jose Primary Care Provider Unavailab LYDIA Malave Unavailable [phone] BANDAR MENJIVAR Unavailable [phone] REASON FOR VISIT 4m f/u Medications Medication SIG (Take, Route, Frequency, Duration) Notes Start Date End Date Status Finasteride 5 MG 1 tablet Orally Once a day for 90 days 05/17/2024 05/12/2025 Not-Taking Famotidine 20 MG 1 tablet at bedtime as needed Orally twice a day 40mg Active Metoprolol Succinate ER 25 MG 1 tablet Orally Once a day Not-Taking glipiZIDE 2.5 MG 1 tablet 30 minutes before breakfast Orally Once a day Not-Taking Prochlorperazine Not -Taking Aspirin 81 81 MG 1 tablet Orally Once a day Active predniSONE Not-Takin g PreserVision AREDS 2 Active Fluconazole 100 MG 1 tablet Orally Not-Taking Nasal [place] Not-Taki ng Eliquis 5 MG 1 tablet Orally Twic e a day Active Januvia 100 MG 1 tablet Orally Once a day Active Montelukast Sodium 10 MG 1 tablet Orally Once a day Active Levothyroxine Sodium 175 MCG 1 tablet in the morning on an empty stomach Orally Once a day Active Metoclopramide HCl 5 MG 1 tablet before meals Orally Twice a day Active Xgeva 120 MG/1.7ML as directed Subcutaneous Active LORazepam 2 MG/ML 1 mL as needed Orall y Twice a day Active Rosuvastatin Calcium 40 MG 1 tablet Orally Once a day Active Nitroglycerin Active Probiotic Active Morphine Sulfate 15 MG 1 tablet as needed Orally every 6 hrs As needed Active Claritin Active traZODone HCl 50 MG 1 tablet at bedtime as needed Orally Once a day Active Tylenol Active Ondansetron 8 MG 1 tablet on the tongue and allow to dissolve as needed Orally Once a day Active Tamsulosin HCl 0.4 MG 1 capsule Orally O nce a day Active Calcium Active Vitamin D Active Xtandi Active Ipratropium [place] Active Vitamin D3 Active Trelegy Ellipta 100-62.5-25 MCG/ACT 1 puff Inhalation Once a day Active Triamcinolone Acet & Anesth Active Abiraterone Acetate 500 MG 2 tablets Orally Once a day Not-Taking Alfuzosin HCl Not-Sherif stanley Zoladex 10.8 MG as directed Subcutaneous Not-Taking carBAMazepine ER 100 MG 1 tablet Orally Twice a day Not-Taking Cetirizine HCl 10 MG 1 tablet Orally Onc e a day Not-Taking Ondansetron HCl 4 MG 1 tablet Orally Onc e a day Not-Taking Promethazine HCl 6.25 MG/5ML 10 mL as needed Orally every 6 hrs Not-Taking levoFLOXacin 500 MG 1 tablet Orally Once a day Not-Taking Flonase Not-Taking Albuterol Not-Taking Mupirocin 2 % 1 application Externally Twice a day Not-Taking Triamcinolone (oint)-Silicone Not-Taking predniSONE 5 MG 1 tablet Orally Once a day Not-Taking Esomeprazole Magnesium 40 MG 1 capsule Orally Once a day Not-Taking Meclizine HCl Not-Sherif stanley Encounters Encounter Location Date Provider Diagnosis [facility] [address] [place] [address] 08/03/2024 BANDAR MENJIVAR Urinary retention R3 3.9 ; Prostate cancer C61 ; Metastatic adenocarcinoma to prostate C79.82 ; History of orchiectomy, 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 and S/P radiation therapy Z92.3 Assessments Encounter Date Diagnosis (ICD Code) Assessment Notes Treatment Notes Treatment Clinical Notes Section Notes 08/03/2024 Urinary retention (ICD-10 - R33.9) 08/03/2024 Prostate cancer (ICD-10 - C61) 08/03/2024 Metastatic adenocarcinoma to prostate (ICD-10 - C79.82) 08/03/2024 History of orchiectomy, bilateral (ICD-10 - Z90.79) 08/03/2024 S/P radiation therapy (ICD-10 - Z92.3) Plan Of Treatment Next Appt Details Provider Name:BANDAR Simons, 09/01/2024 10:00:00 AM, [address] [place], [address], Provider Name:BANDAR Simons, 11/30/2024 10:15:00 AM, [address] [place], [address], Progress Notes * ANNAMARIA JACOBS RDOB:[birth year] (79 yo M)Acc No.[id number]:08/03/2024 Progress Notes Patient: ANNAMARIA TOPETE Provider: Roby Menjivar MD :1945 A ge:79 Y S ex:Male Date:08/03/2024 Address:[address] [place], [place] [id number] Pcp:Jose Thomason MD Subjective: * Chief Complaints: * 1 . 4m f/u. * HPI: M igrated HPI: Mr. Jacobs is a 79-yo malewith hematuria and h/o prostate cancer s/p bilateral orchiectomy, then radiation and chemo by Dr. Jewell. Previous patient of Dr. Gould. He states his PSA stays between 4.5-5.6. He is a former smoker. He also has a h/o thyroid cancer. He was seen at [facility] on 02/28/23 c/o hematuria x2 weeks. CT a/p revealed no acute findings, sclerotic bone lesions, and avascular necrosis of R femoral head. He had a chronic appearing bladder wall thickening, siimple cyst of L kidney measuring 5.5, and a 2 mm nonobstructing stone in L kidney. No hydronephrosis. Kaur placed with high urine output for 2 weeks then removed at [facility]. He reported urgency and nocturia x3. IPSS 26, QOL 5. He reported bother with voiding difficulty, intermittent hematuria and recurrent UTI. UDS resulted in hypotonicity of the bladder but preserved function, Pdet 21/Qmax 11. 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 He has advancing prostate cancer with a recent PET scan showing retroperitoneal lymph node along with likely bone metastasis and local prostate recurrence. He has prolonged urinary retention with chronic kaur, and inability to perform CIC. He underwent 95kj PVP and SP tube placement on 06/22/23. Unfortunately, he did not regain bladder function after procedure and was only able to dribble. Patient was seen at [facility] on 09/19/2023 with complaint of penile pain and white chalky discharge in the urine with suprapubic tenderness. CT revealed left renal cysts, a small nonobstructive L nephrolithiasis, and bladder calculi the larger of which is at the junction of the caudal aspect of the bladder and prostatic urethra measuring 16 mm x 18 mm., as well as, regions of bladder wall thickening and stranding in the pericystic fat, possible bladder outlet obstruction versus inflammation versus infection versus neoplasm. At follow up he reported he was voiding naturally and capping SP tube for a short time, but he RTC in 02/2024 and reported unable to void naturally, only with leakage of urine. SP tube working well. PSA of 2.41 on 02/25/24, corrected to 4.82. He was instructed to stop Finasteride since he is not voiding naturally. He is on hormonal therapy with Xtandi and Xgeva for bone health. Recommended clearing his bladder calcifications to help relieve sediment build up, and patient underwent cystolitholapaxy on 03/09/24. Returned on 05/31/24 with clogged SP Tube, cystoscopy was performed.Some prostate blockage but otherwise his urethra was patent also with no pathology within the bladder. Here today for 4m f/u and 3 week SP Tube change. * Medical History: * Medications: T aking Vitamin D3 , Taking Triamcinolone Acet & Anesth , Taking Trelegy Ellipta 100-62.5-25 MCG/ACT Aerosol Powder Breath Activated 1 puff Inhalation Once a day , Taking Tamsulosin HCl 0.4 MG Capsule 1 capsule Orally Once a day , Taking Vitamin D , Taking Calcium , Taking Ipratropium [place] , Taking Xtandi , Taking Ondansetron 8 MG Tablet Disintegrating 1 tablet on the tongue and allow to dissolve as needed Orally Once a day , Taking Tylenol , Taking Claritin , Taking Morphine Sulfate 15 MG Tablet 1 tablet as needed Orally every 6 hrs As needed, Taking traZODone HCl 50 MG Tablet 1 tablet at bedtime as needed Orally Once a day , Taking LORazepam 2 MG/ML Concentrate 1 mL as needed Orally Twice a day , Taking Xgeva 120 MG/1.7ML Solution as directed Subcutaneous , Taking Nitroglycerin , Taking Rosuvastatin Calcium 40 MG Tablet 1 tablet Orally Once a day , Taking Probiotic , Taking Montelukast Sodium 10 MG Tablet 1 tablet Orally Once a day , Taking Metoclopramide HCl 5 MG Tablet 1 tablet before meals Orally Twice a day , Taking Levothyroxine Sodium 175 MCG Tablet 1 tablet in the morning on an empty stomach Orally Once a day , Taking Januvia 100 MG Tablet 1 tablet Orally Once a day , Taking Eliquis 5 MG Tablet 1 tablet Orally Twice a day , Taking Aspirin 81 81 MG Tablet Delayed Release 1 tablet Orally Once a day , Taking PreserVision AREDS 2 , Taking Famotidine 20 MG Tablet 1 tablet at bedtime as needed Orally twice a day , Notes to Pharmacist: 40mg, Not-Taking predniSONE , Not- Taking Nasal [place] , Not-Taking Fluconazole 100 MG Tablet 1 tablet Orally , Not-Taking Metoprolol Succinate ER 25 MG Tablet Extended Release 24 Hour 1 tablet Orally Once a day , Not-Taking Prochlorperazine , Not-Taking glipiZIDE 2.5 MG Tablet 1 tablet 30 minutes before breakfast Orally Once a day , Not-Taking Finasteride 5 MG Tablet 1 tablet Orally Once a day , stop date 05/12/2025, Not-Taking Esomeprazole Magnesium 40 MG Capsule Delayed Release 1 capsule Orally Once a day , Not-Taking predniSONE 5 MG Tablet 1 tablet Orally Once a day , Not-Taking Meclizine HCl , Not-Taking levoFLOXacin 500 MG Tablet 1 tablet Orally Once a day , Not-Taking Albuterol , Not-Taking Flonase , Not-Taking Triamcinolone (oint)-Silicone , Not-Taking Mupirocin 2 % Ointment 1 application Externally Twice a day , Not-Taking Promethazine HCl 6.25 MG/5ML Solution 10 mL as needed Orally every 6 hrs , Not-Taking Ondansetron HCl 4 MG Tablet 1 tablet Orally Once a day , Not-Taking Zoladex 10.8 MG Implant as directed Subcutaneous , Not-Taking Cetirizine HCl 10 MG Tablet 1 tablet Orally Once a day , Not-Taking carBAMazepine ER 100 MG Tablet Extended Release 12 Hour 1 tablet Orally Twice a day , Not-Taking Alfuzosin HCl , Not-Taking Abiraterone Acetate 500 MG Tablet 2 tablets Orally Once a day Objective: * Vitals: Assessment: * Assessment: 1. U rinary retention - R33.9 (Primary) 2 . P rostate cancer - C61 ? 3 . M etastatic adenocarcinoma to prostate - C79.82 4 . H istory of orchiectomy, bilateral - Z90.79 5 . S /P radiation therapy - Z92.3 ?Specify :and chemo Plan: * Treatment: * Billing Information: * Visit Code: * Procedure Codes: * Electronic signature of JIMMY MENJIVAR MD on 08/26/2024 at 03:27 AM CDT Sign off status: Pending * Provider: Roby Menjivar MD Date: 0 08/03/2024 Generated for Luc mcnally/Dudley/Meryitting on: 0 08/26/2024 03:27 AM CDT History and Physical Notes * HPI (History of Present Illness) Category Sub-Category Detail Notes Category Not es Migrated HPI Mr. Jacobs is a 79-yo malewith hematuria and h/o prostate cancer s/p bilateral orchiectomy, then radiation and chemo by Dr. Jewell. Previous patient of Dr. Gould. He states his PSA stays between 4.5-5.6. He is a former smoker. He also has a h/o thyroid cancer. He was seen at [facility] on 02/28/23 c/o hematuria x2 weeks. CT a/p revealed no acute findings, sclerotic bone lesions, and avascular necrosis of R femoral head. He had a chronic appearing bladder wall thickening, siimple cyst of L kidney measuring 5.5, and a 2 mm nonobstructing stone in L kidney. No hydronephrosis. Kaur placed with high urine output for 2 weeks then removed at [facility]. He reported urgency and nocturia x3. IPSS 26, QOL 5. He reported bother with voiding difficulty, intermittent hematuria and recurrent UTI. UDS resulted in hypotonicity of the bladder but preserved function, Pdet 21/Qmax 11. 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 He has advancing prostate cancer with a recent PET scan showing retroperitoneal lymph node along with likely bone metastasis and local prostate recurrence. He has prolonged urinary retention with chronic kaur, and inability to perform CIC. He underwent 95kj PVP and SP tube placement on 06/22/23. Unfortunately, he did not regain bladder function after procedure and was only able to dribble. Patient was seen at [facility] on 09/19/2023 with complaint of penile pain and white chalky discharge in the urine with suprapubic tenderness. CT revealed left renal cysts, a small nonobstructive L nephrolithiasis, and bladder calculi the larger of which is at the junction of the caudal aspect of the bladder and prostatic urethra measuring 16 mm x 18 mm., as well as, regions of bladder wall thickening and stranding in the pericystic fat, possible bladder outlet obstruction versus inflammation versus infection versus neoplasm. At follow up he reported he was voiding naturally and capping SP tube for a short time, but he RTC in 02/2024 and reported unable to void naturally, only with leakage of urine. SP tube working well. PSA of 2.41 on 02/25/24, corrected to 4.82. He was instructed to stop Finasteride since he is not voiding naturally. He is on hormonal therapy with Xtandi and Xgeva for bone health. Recommended clearing his bladder calcifications to help relieve sediment build up, and patient underwent cystolitholapaxy on 03/09/24. Returned on 05/31/24 with clogged SP Tube, cystoscopy was performed. Some prostate blockage but otherwise his urethra was patent also with no pathology within the bladder. Here today for 4m f/u and 3 week SP Tube change
--- OUTSIDE RECORDS SUMMARY | 2024-08-23 04:00 | XMS_ITS | Continuity of Care Document ---
Author Name [facility] Organization [facility] Care Team Providers Care Sensor Technician Name Role Phone [facility] Unavailable Unavailable Problems Combined list of problems from Department of Defense and Veterans Affairs facilities. It does not include entries that were removed or entered in error. Problem Status Onset Date Problem Type Date of Resolution Comments Source non-VA PCP Dr. Knowles who manages all his medical diseases. 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 Jul 30, 2022 Entered By: MAXINE DEL CASTILLO Comment: Patient states to his low back [place] [facility] Chronic low back pain (SNOMED CT 642380193) Active Condition [facility] [facility] [facility] COPD - Chronic obstructive pulmonary disease Active Condition [facility] [facility] Diabetic peripheral neuropathy Active Condition [facility] [facility] [facility] Dizziness * (ICD-9-CM 780.4) Active Condition [facility] [facility] [facility] DM - Diabetes mellitus (SNOMED CT 25617855) Active Condition [facility] [facility] [facility] Foot Pain (ICD-9-CM 719.47) Active Condition [facility] [facility] Hematuria Active Condition Mar 09 Entered By: MAXINE DEL CASTILLO Comment: urology PB VAFeb 2023 Entered By: MAXINE DEL CASTILLO Comment: PB recommended pt go to [facility] to have procedure done, to make decisin and get back to urology [place] [facility] Hip Sprain/Strain Active Condition [place] [facility] History of bilateral knee arthroplasty Active Condition Jul 30, 2022 Entered By: MAXINE DEL CASTILLO Comment: Dr. Colby [place] [facility] History of colonoscopy Active Condition Jul 30, 2022 Entered By: MAXINE DEL CASTILLO Comment: 2022 Entered By: MAXINE DEL CASTILLO Comment: EGD by Dr. Handley with biopsies to esophagus = negative per pt Dr. 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 Colby [place] [facility] HLD - Hyperlipidemia Active Condition [place] [facility] Hypocalcemia Active Condition [facility] [facility] [facility] Hypothyroidism (SCT 47011645) Active Condition Jul 30, 2022 Entered By: MAXINE DEL CASTILLO Comment: Followed by Dr. eVe endocrinologyJul 30, 2022 Entered By: MAXINE DEL CASTILLO Comment: Iodine treatment 2019 [place] [facility] Knee Pain Active Condition [facility] [facility] [facility] Pain in joint involving shoulder region (ICD-9-CM 719.41) Active Condition [place] [facility] Pancytopenia Active Condition Jul 31, 2023 Entered By: MAXINE DEL CASTILLO Comment: hem onco consult [place] [facility] Postsurgical arthrodesis status (ICD-9-CM V45.4) Active Condition [place] [facility] Prostate carcinoma (SNOMED CT 387017825) Active Condition Jul 30, 2022 Entered By: MAXINE DEL CASTILLO Comment: Treated by Dr. Monahan, who follows his PSA last 1 was [id number] Entered By: MAXINE DEL CASTILLO Comment: mets to back spine [place] [facility] Retention of Urine (SCT 331030994) Active Condition Mar 09, 2023 Entered By: MAXINE DEL CASTILLO Comment: [facility], patisusann also has hematuria [place] [facility] Vitamin D below reference range Active Condition [place] [facility] Cough (ICD-9-CM 786.2) Inactive Condition 09/18/2020 [place] [facility] Issue of Repeat Prescriptions (ICD-9-CM V68.1) Inactive Condition 09/18/2020 [facility] Laboratory Procedures (ICD-9-CM V72.6) Inactive Condition 09/18/2020 [facility] Nausea * (ICD-9-CM 787.02) Inactive Condition 09/18/2020 [place] [facility] Nausea with Vomiting (ICD-9-CM 787.01) Inactive Condition 09/18/2020 [facility] Patellar tendinitis (ICD-9-CM 726.64) Inactive Condition 09/18/2020 [facility] Routine General Medical Examination at a Health Care Facility * (ICD-9-CM V70.0) Inactive Condition 09/18/2020 [facility] Sprains and strains of wrist and hand (ICD-9-CM 842.09) Inactive Condition 09/18/2020 [facility] URI (ICD-9-CM 465.9) Inactive Condition 09/18/2020 [facility] Diagnosis: ICD-10-CM Z00.01 Encounter for general adult medical exam w abnormal findings Active Diagnosis [facility] Diagnosis: ICD-10-CM C61 Malignant neoplasm of prostate Active Diagnosis [facility] Diagnosis: ICD-10-CM R31.9 Hematuria, unspecified Active Diagnosis [facility] Medications Combined list of outpatient medications from Department of Defense and Veterans Affairs facilities.Medications provided include 1) outpatient medications from the last 15 months, and 2) patient-reported medications. Medication Details Route Status Patient Instructions Prescription Expires Prescription Number Last Dispense Date Ordering Provider Order Date Order Qty Source ABIRATERONE ACETATE 250MG TAB TAKE ONE TABLET BY MOUTH ONCE A DAY ORAL ACTIVE ROSENDO DEL CASTILLO 2021 [facility] ALBUTEROL (CFC-F) INHL,ORAL INHALE BY ORAL INHALATI ON FOUR TIMES A DAY RESPIR ATORY (INHAL ATION) ACTIVE IMNNA WALLER 2013 [facility] ALBUTEROL SO4 90MCG/ACTUA T (CFC-F) INHL,ORAL,8 .5GM INHALE 1 PUFF BY ORAL INHALATI ON FOUR TIMES A DAY NEEDED RESPIR ATORY (INHAL ATION) ACTIVE ROSENDO DEL CASTILLO 2021 [facility] ALFUZOSIN HCL 10MG TAB,SA TAKE ONE TABLET BY MOUTH AT BEDTIME ORAL ACTIVE LISCOLEMAN ValenteNILDA [facility] APIXABAN 5MG TAB TAKE ONE TABLET BY MOUTH TWICE A DAY ORAL ACTIVE ROSENDO DEL CASTILLO 2021 [facility] ASPIRIN 81MG TAB,EC TAKE ONE TABLET BY MOUTH ONCE A DAY ORAL ACTIVE NILDA GRIJALVA 2010 [facility] ATORVASTATI N CA 80MG TAB TAKE ONE TABLET BY MOUTH EVERY EVENING ORAL ACTIVE NILDA GRIJALVA 2010 [facility] CALCIUM 250MG/VITAM IN D 125UNT TAB TAKE 1 TABLET BY MOUTH ONCE A DAY FOR CALCIUM SUPPLEME NTATION TAKE WITH FOOD ORAL DISCONT INUED BY PROVIDE R 07/31/2024 [id number] ROSENDO DEL CASTILLO R 2023 100 [facility] CARBAMAZEPI NE 200MG TAB TAKE ONE-HALF TABLET BY MOUTH TWICE A DAY ORAL ACTIVE ROSENDO DEL CASTILLO R 2022 [facility] CETIRIZINE HCL 10MG TAB TAKE ONE TABLET BY MOUTH ONCE A DAY ORAL ACTIVE DEE ALEXANDER 2015 [facility] CHOLECALCIF MINDY 50MCG (2,000UNIT) TAB TAKE TWO TABLETS BY MOUTH ONCE A DAY FOR VITAMIN D DEFICIEN CY ORAL DISCONT INUED BY PROVIDE R 07/31/2024 [id number] 4 ROSENDO DEL CASTILLO R 2023 200 [facility] CYCLOBENZAP RINE HCL 10MG TAB TAKE ONE TABLET BY MOUTH THREE TIMES A DAY NEEDED ORAL ACTIVE ROSENDO DEL CASTILLO 2021 [facility] DOXYCYCLINE HYCLATE 100MG TAB TAKE ONE TABLET BY MOUTH TWICE A DAY ORAL ACTIVE ROSENDO DEL CASTILLO 2021 [facility] EMPAGLIFLOZ IN 25MG TAB TAKE ONE-HALF TABLET BY MOUTH ONCE A DAY ORAL ACTIVE ROSENDO DEL CASTILLO 2021 [facility] ESOMEPRAZOL E MAGNESIUM 40MG CAP,EC TAKE 1 CAPSULE BY MOUTH TWICE A DAY ORAL ACTIVE ROSENDO DEL CASTILLO 2021 [facility] ESOMEPRAZOL E MAGNESIUM 40MG CAP,EC TAKE 1 CAPSULE BY MOUTH TWICE A DAY ORAL ACTIVE ROSENDO DEL CASTILLO 2022 [facility] EZETIMIBE TAB TAKE BY MOUTH ONCE A DAY ORAL ACTIVE MINNA WALLER 2013 [facility] FLUTICASONE 100/UMECLID INIUM 62.5/VILANT MINDY 25MCG/ACTUA T INH,30 INHALE 1 PUFF ORAL INHALATI ON ONCE A DAY RESPIR ATORY (INHAL ATION) ACTIVE MAGDALENEROSENDO Capri 2021 [facility] FLUTICASONE 500MCG/SALM ETEROL 50MCG INHL,ORAL,D ISKUS,60 INHALE 1 INHALATI ON BY ORAL INHALATI ON TWICE A DAY RESPIR ATORY (INHAL ATION) ACTIVE DEE ALEXANDER 2015 [facility] FUROSEMIDE 20MG TAB TAKE ONE TABLET BY MOUTH EVERY MORNING ORAL ACTIVE MAGDALENEROSENDO Capri 2021 [facility] GABAPENTIN 300MG CAP TAKE 1 CAPSULE BY MOUTH THREE TIMES A DAY NEEDED ORAL ACTIVE MAGDALENEROSENDO Capri 2021 [facility] GLIPIZIDE 5MG TAB TAKE ONE-HALF TABLET BY MOUTH ONCE A DAY ORAL ACTIVE MAGDALENEROSENDO Capri 2022 [facility] HYDROCODONE 5MG/ACETAMI NOPHEN 325MG TAB TAKE ONE TABLET BY MOUTH EVERY 6 HOURS NEEDED ORAL ACTIVE MAGDALENEROSENDO Capri 2021 [facility] IPRATROPIUM MDI INHL,ORAL INHALE BY ORAL INHALATI ON FOUR TIMES A DAY RESPIR ATORY (INHAL ATION) ACTIVE MINNA WALLER 2013 [facility] LEVOTHYROXI NE NA 175MCG TAB (SYNTHROID) TAKE ONE TABLET BY MOUTH EVERY MORNING BEFORE A MEAL ORAL ACTIVE MAGDALENEROSENDO Capri [facility] METOCLOPRAM REINA HCL 10MG TAB TAKE ONE-HALF TABLET BY MOUTH THREE TIMES A DAY ORAL ACTIVE ROSENDO DEL CASTILLO 2022 [facility] METOPROLOL SUCCINATE 50MG TAB,SA TAKE ONE-HALF TABLET BY MOUTH ONCE A DAY ORAL ACTIVE DEE ALEXANDER 2015 [facility] MONTELUKAST NA 10MG TAB TAKE ONE TABLET BY MOUTH EVERY EVENING ORAL ACTIVE FARHANA AmbrosioNILDA 2010 [facility] NITROGLYCER IN TAB,SUBLING UAL DISSOLVE UNDER THE TONGUE ONE-TIME SUBLIN GUAL ACTIVE DEE ALEXANDER 2015 [facility] ONDANSETRON HCL 8MG TAB TAKE ONE-HALF TABLET BY MOUTH THREE TIMES A DAY NEEDED ORAL ACTIVE MAGDALENEFeb [facility] PREDNISONE 5MG TAB TAKE ONE TABLET BY MOUTH EVERY MORNING ORAL ACTIVE MAGDALENEROSENDO Capri 2021 [facility] PROBIOTIC COMBINATION CAP/TAB TAKE 1 CAPSULE BY MOUTH ONCE A DAY ORAL ACTIVE MAGDALENEFeb Ronak 2021 [facility] PROCHLORPER AZINE MALEATE 10MG TAB TAKE ONE TABLET BY MOUTH FOUR TIMES A DAY ORAL ACTIVE MAGDALENEFeb [facility] SITAGLIPTIN PHOSPHATE 100MG TAB TAKE ONE TABLET BY MOUTH ONCE A DAY ORAL ACTIVE MAGDALENEFeb [facility] TERBINAFINE HCL 250MG TAB TAKE ONE TABLET BY MOUTH ONCE A DAY ORAL ACTIVE MAGDALENEROSENDO Capri Simons 2021 [facility] TRIAMCINOLO NE ACETONIDE 0.1% CREAM,TOP APPLY SPARINGL Y TO AFFECTED AREA(S) TWICE A DAY TOPICA L ACTIVE MAGDALENEFeb [facility] Allergies, Adverse Reactions, Alerts Combined list of allergies from Department of Defense and Veterans Affairs facilities. It does not include entries that were removed or entered in error. Substance Category Reaction Severity Reaction type Status Date Reported Comments Source VANCOMYCIN Propensity to adverse reactions to drug (finding) active [address] [facility] Immunizations Combined list of available immunizations from the Department of Defense and Veterans Affairs facilities. Immunization Series Date Given Administered By Site Reaction Lot Number CVX Code Drug Broadcast Engineer Status Comments Source COVID-19 (PFIZER), MRNA, LNP-S, PF, DANIELLE-SUCROSE, 30 MCG/0.3 ML (AGES 12+ YEARS) 5 2022 309 complet ed HISTORICA L INFORMATI ON - FROM OTHER [facility], [facility] INFLUEN[facility], HIGH-DOSE, QUADRIVALENT 7 2022 197 complet ed HISTORICA L INFORMATI ON - FROM OTHER [facility], [facility] N INFLUENZA, UNSPECIFIED FORMULATION 2022 88 complet ed HISTORICA L INFORMATI ON - FROM PATIENT'S RECALL, [facility] N RSV, BIVALENT, PROTEIN SUBUNIT RSVPREF, DILUENT RECONSTITUTED , 0.5 ML, PF 1 2022 305 complet ed HISTORICA L INFORMATI ON - FROM OTHER [facility], [facility] ZOSTER RECOMBINANT 2022 FAMILIA MORAN LEFT DELTO ID [id number] 187 complet ed [facility] [place], [facility] PNEUMOCOCCAL POLYSACCHARID E PPV23 2022 33 complet ed HISTORICA L INFORMATI ON - FROM OTHER REGISTRY, [facility] COVID-19 (MODERNA), MRNA, LNP-S, BIVALENT, PF, 50 MCG/0.5 ML OR 25MCG/0.25 ML DOSE 4 2021 229 complet ed HISTORICA L INFORMATI ON - FROM OTHER [facility], [facility] N INFLUENZA, HIGH-DOSE, QUADRIVALENT 6 2021 197 complet ed HISTORICA L INFORMATI ON - FROM OTHER REGISTRY, [facility] N COVID-19 (MODERNA), MRNA, LNP-S, PF, 100 MCG/0.5ML DOSE OR 50 MCG/0.25ML DOSE 4 2021 207 complet ed MOD; [id number]; 2 [facility] INFLUENZA, INJECTABLE, QUADRIVALENT, PRESERVATIVE FREE 5 2020 150 complet ed HISTORICA L INFORMATI ON - FROM OTHER [facility], [facility] N COVID-19 (MODERNA), MRNA, LNP-S, PF, 100 MCG/0.5ML DOSE OR 50 MCG/0.25ML DOSE 3 2020 207 complet ed [facility] COVID-19 (MODERNA), MRNA, LNP-S, PF, 100 MCG/0.5 ML DOSE 2 2020 207 complet ed [facility] COVID-19 (MODERNA), MRNA, LNP-S, PF, 100 MCG/0.5 ML DOSE 1 2020 207 complet ed [facility] INFLUENZA, INJECTABLE, QUADRIVALENT, PRESERVATIVE FREE 4 2019 150 complet ed HISTORICA L INFORMATI ON - FROM OTHER REGISTRY, [facility] INFLUENZA, UNSPECIFIED FORMULATION 2019 88 complet ed [facility] INFLUENZA, TRIVALENT, ADJUVANTED 3 2018 168 complet ed HISTORICA L INFORMATI ON - FROM OTHER REGISTRY, [facility] INFLUENZA, UNSPECIFIED FORMULATION 2018 88 complet ed [facility] PNEUMOCOCCAL POLYSACCHARID E PPV23 1 2017 33 complet ed HISTORICA L INFORMATI ON - FROM OTHER REGISTRY, [facility] N PNEUMOCOCCAL POLYSACCHARID E PPV23 2017 33 complet ed [facility] INFLUENZA, UNSPECIFIED FORMULATION 2016 88 complet ed [facility] TD(ADULT) UNSPECIFIED FORMULATION 2016 139 complet ed Not sure of location was written on vaccinati on log [facility] INFLUENZA, UNSPECIFIED FORMULATION 2015 88 complet ed [facility] INFLUENZA, UNSPECIFIED FORMULATION 2014 88 complet ed [facility] PNEUMOCOCCAL CONJUGATE PCV 13 2014 133 complet ed [facility] INFLUENZA, SEASONAL, INJECTABLE 2 2013 141 complet ed HISTORICA L INFORMATI ON - FROM OTHER REGISTRY, [facility] INFLUENZA, UNSPECIFIED FORMULATION 2013 88 complet ed [facility] INFLUENZA, SEASONAL, INJECTABLE 1 2012 141 complet ed HISTORICA L INFORMATI ON - FROM OTHER REGISTRY, [facility] INFLUENZA, UNSPECIFIED FORMULATION 2012 88 complet ed [facility] PNEUMOCOCCAL POLYSACCHARID E PPV23 2012 33 complet ed no- has written record [facility] INFLUENZA, UNSPECIFIED FORMULATION 2011 88 complet ed [facility] INFLUENZA, UNSPECIFIED FORMULATION 2010 88 complet ed [facility] INFLUENZA (HISTORICAL) 2009 88 complet ed [facility] INFLUENZA, UNSPECIFIED FORMULATION 2008 88 complet ed [facility] TDAP 2008 115 complet ed [facility] INFLUENZA (HISTORICAL) 2007 88 complet ed [facility] INFLUENZA, UNSPECIFIED FORMULATION 2006 88 complet ed [facility] PNEUMOCOCCAL, UNSPECIFIED FORMULATION 2006 109 complet ed Left Deltoid [facility] INFLUENZA, UNSPECIFIED FORMULATION 2006 88 complet ed [facility] OUTSIDE PNEUMOVAX (HISTORICAL) 2006 109 complet ed [facility] INFLUENZA, UNSPECIFIED FORMULATION 2005 88 complet ed [facility] INFLUENZA, UNSPECIFIED FORMULATION 2004 88 complet ed [facility] INFLUENZA (HISTORICAL) 2003 88 complet ed [facility] Results Combined list of recent chemistry, hematology and other laboratory results from Department of Defense and Veterans Affairs, ranging from 15 months to all on record, depending upon the facility. Order Name Results Value Reference Range Date Interpretation Specimen Comments Source [id number] HEMOGLOBIN A1C/HEMOGLO BIN.TOTAL IN BLOOD 9.4 4.0 - 6.0 07/27 H Specimen Type: BLOOD No comment entered. Ordering Provider: MAXINE DEL CASTILLO Report Released Date/Time: Jul 28, 2023 10:45 AM Reporting Lab: [place] [facility] [address] [place] [id number] Performing Lab: [place] [facility] [address] [place] [id number] [facility] VITAMIN D, 25-HYDROX Y 25-HYDROXYV ITAMIN D3 [MASS/VOLUM E] IN SERUM OR PLASMA 12.7 ng/mL 30 - 96 07/27 L Specimen Type: SERUM No comment entered. Ordering Provider: MAXINE DEL CASTILLO Report Released Date/Time: Jul 28, 2023 10:45 AM Reporting Lab: [place] [facility] [address] [place] [address] Performing Lab: [place] [facility] [address] [place] [address] [facility] TSH (MA-PB) THYROTROPIN [UNITS/VOLU ME] IN SERUM OR PLASMA 1.829 u[IU]/mL 0.47 - 5 07/27 Specimen Type: SERUM No comment entered. Ordering Provider: MAXINE DEL CASTILLO Report Released Date/Time: Jul 28, 2023 10:45 AM Reporting Lab: [place] [facility] [address] [place] [address] Performing Lab: [place] [facility] [address] [place] [address] [facility] CHOLESTER OL PANEL (PB) CHOLESTEROL [MASS/VOLUM E] IN SERUM OR PLASMA 124 mg/dL 0 - 200 07/27 Specimen Type: PLASMA No comment entered. Ordering Provider: MAXINE DEL CASTILLO Report Released Date/Time: Jul 28, 2023 10:45 AM Reporting Lab: [place] [facility] [address] [place] [id number] Performing Lab: [place] [facility] [address] [place] [address] [facility] CHOLESTER OL PANEL (PB) TRIGLYCERID E [MASS/VOLUM E] IN SERUM OR PLASMA 92 mg/dL 0 - 150 07/27 Specimen Type: PLASMA No comment entered. Ordering Provider: MAXINE DEL CASTILLO Report Released Date/Time: Jul 28, 2023 10:45 AM Reporting Lab: [place] [facility] [address] [place] [address] Performing Lab: [place] [facility] [address] [place] [address] [facility] CHOLESTER OL PANEL (PB) CHOLESTEROL IN LDL [MASS/VOLUM E] IN SERUM OR PLASMA BY CALCULATION 60.9 mg/dL 07/27 Specimen Type: PLASMA No comment entered. Ordering Provider: MAXINE DEL CASTILLO Report Released Date/Time: Jul 28, 2023 10:45 AM Reporting Lab: [place] [facility] [address] [place] [address] Performing Lab: [place] [facility] [address] [place] [address] [facility] CHOLESTER OL PANEL (PB) CHOLESTEROL IN HDL [MASS/VOLUM E] IN SERUM OR PLASMA 44.7 mg/dL 40 07/27 H Specimen Type: PLASMA No comment entered. Ordering Provider: MAXINE DEL CASTILLO Report Released Date/Time: Jul 28, 2023 10:45 AM Reporting Lab: [place] [facility] [address] [place] [address] Performing Lab: [place] [facility] [address] [place] [address] [facility] CHOLESTER OL PANEL (PB) CHOLESTEROL IN HDL/CHOLEST MINDY.TOTAL [MASS RATIO] IN SERUM OR PLASMA 36.0 25 07/27 Specimen Type: PLASMA No comment entered. Ordering Provider: MAXINE DEL CASTILLO Report Released Date/Time: Jul 28, 2023 10:45 AM Reporting Lab: [place] [facility] [address] [place] [address] Performing Lab: [place] [facility] [address] [place] [address] [facility] COMPREHEN SIVE METABOLIC PANEL CREATININE [MASS/VOLUM E] IN SERUM OR PLASMA 0.90 mg/dL 0.7 - 1.3 07/27 Specimen Type: PLASMA No comment entered. Ordering Provider: MAXINE DEL CASTILLO Report Released Date/Time: Jul 28, 2023 10:45 AM Reporting Lab: [place] [facility] [address] [place] [address] Performing Lab: [place] [facility] [address] [place] [address] [facility] COMPREHEN SIVE METABOLIC PANEL UREA NITROGEN [MASS/VOLUM E] IN SERUM OR PLASMA 12 mg/dL 9 - 25 07/27 Specimen Type: PLASMA No comment entered. Ordering Provider: MAXINE DEL CASTILLO Report Released Date/Time: Jul 28, 2023 10:45 AM Reporting Lab: [place] [facility] [address] [place] [address] Performing Lab: [place] [facility] [address] [place] [address] [facility] COMPREHEN SIVE METABOLIC PANEL GLUCOSE [MASS/VOLUM E] IN SERUM OR PLASMA 165 mg/dL 72 - 99 07/27 H Specimen Type: PLASMA No comment entered. Ordering Provider: MAXINE DEL CASTILLO Report Released Date/Time: Jul 28, 2023 10:45 AM Reporting Lab: [place] [facility] [address] [place] [address] Performing Lab: [place] [facility] [address] [place] [address] [facility] COMPREHEN SIVE METABOLIC PANEL SODIUM [MOLES/VOLU ME] IN SERUM OR PLASMA 136 meq/L 136 - 145 07/27 Specimen Type: PLASMA No comment entered. Ordering Provider: MAXINE DEL CASTILLO Report Released Date/Time: Jul 28, 2023 10:45 AM Reporting Lab: [place] [facility] [address] [place] [address] Performing Lab: [place] [facility] [address] [place] [address] [facility] COMPREHEN SIVE METABOLIC PANEL POTASSIUM [MOLES/VOLU ME] IN SERUM OR PLASMA 4.3 meq/L 3.5 - 5 07/27 Specimen Type: PLASMA No comment entered. Ordering Provider: MAXINE DEL CASTILLO Report Released Date/Time: Jul 28, 2023 10:45 AM Reporting Lab: [place] [facility] [address] [place] [address] Performing Lab: [place] [facility] [address] [place] [address] [facility] COMPREHEN SIVE METABOLIC PANEL CHLORIDE [MOLES/VOLU ME] IN SERUM OR PLASMA 103 meq/L 98 - 107 07/27 Specimen Type: PLASMA No comment entered. Ordering Provider: MAXINE DEL CASTILLO Report Released Date/Time: Jul 28, 2023 10:45 AM Reporting Lab: [place] [facility] [address] [place] [address] Performing Lab: [place] [facility] [address] [place] [address] [facility] COMPREHEN SIVE METABOLIC PANEL CARBON DIOXIDE, TOTAL [MOLES/VOLU ME] IN SERUM OR PLASMA 25 meq/L 22 - 31 07/27 Specimen Type: PLASMA No comment entered. Ordering Provider: MAXINE DEL CASTILLO Report Released Date/Time: Jul 28, 2023 10:45 AM Reporting Lab: [place] [facility] [address] [place] [address] Performing Lab: [place] [facility] [address] [place] [address] [facility] COMPREHEN SIVE METABOLIC PANEL CALCIUM [MASS/VOLUM E] IN SERUM OR PLASMA 8.1 mg/dL 8.4 - 10.4 07/27 L Specimen Type: PLASMA No comment entered. Ordering Provider: MAXINE DEL CASTILLO Report Released Date/Time: Jul 28, 2023 10:45 AM Reporting Lab: [place] [facility] [address] [place] [place] [address] Performing Lab: [place] [facility] [address] [place] [address] [facility] COMPREHEN SIVE METABOLIC PANEL PROTEIN [MASS/VOLUM E] IN SERUM OR PLASMA 6.6 g/dL 6 - 8.6 07/27 Specimen Type: PLASMA No comment entered. Ordering Provider: MAXINE DEL CASTILLO Report Released Date/Time: Jul 28, 2023 10:45 AM Reporting Lab: [place] [facility] [address] [place] [address] Performing Lab: [place] [facility] [address] [place] [address] [facility] COMPREHEN SIVE METABOLIC PANEL ALBUMIN [MASS/VOLUM E] IN SERUM OR PLASMA 3.6 g/dL 3.4 - 5 07/27 Specimen Type: PLASMA No comment entered. Ordering Provider: MAXINE DEL CASTILLO Report Released Date/Time: Jul 28, 2023 10:45 AM Reporting Lab: [place] [facility] [address] [place] [address] Performing Lab: [place] [facility] [address] [place] [address] [facility] COMPREHEN SIVE METABOLIC PANEL BILIRUBIN.T OTAL [MASS/VOLUM E] IN SERUM OR PLASMA 0.6 mg/dL 0.2 - 1.2 07/27 Specimen Type: PLASMA No comment entered. Ordering Provider: MAXINE DEL CASTILLO Report Released Date/Time: Jul 28, 2023 10:45 AM Reporting Lab: [place] [facility] [address] [place] [address] Performing Lab: [place] [facility] [address] [place] [address] [facility] COMPREHEN SIVE METABOLIC PANEL ALKALINE PHOSPHATASE [ENZYMATIC ACTIVITY/VO LUME] IN SERUM OR PLASMA 82 U/L 40 - 150 07/27 Specimen Type: PLASMA No comment entered. Ordering Provider: MAXINE DEL CASTILLO Report Released Date/Time: Jul 28, 2023 10:45 AM Reporting Lab: [place] [facility] [address] [place] [address] Performing Lab: [place] [facility] [address] [place] [address] [facility] COMPREHEN SIVE METABOLIC PANEL ASPARTATE AMINOTRANSF ERASE [ENZYMATIC ACTIVITY/VO LUME] IN SERUM OR PLASMA 11 U/L 5 - 34 07/27 Specimen Type: PLASMA No comment entered. Ordering Provider: KUZAS,MAXINE R Report Released Date/Time: Jul 28, 2023 10:45 AM Reporting Lab: [place] [facility] [address] [place] [address] Performing Lab: [place] [facility] [address] [place] [address] [facility] COMPREHEN SIVE METABOLIC PANEL ALANINE AMINOTRANSF ERASE [ENZYMATIC ACTIVITY/VO LUME] IN SERUM OR PLASMA 14 U/L 8 - 40 07/27 Specimen Type: PLASMA No comment entered. Ordering Provider: MAXINE DEL CASTILLO Report Released Date/Time: Jul 28, 2023 10:45 AM Reporting Lab: [place] [facility] [address] [place] [address] Performing Lab: [place] [facility] [address] [place] [address] [facility] COMPREHEN SIVE METABOLIC PANEL GLOMERULAR FILTRATION RATE/1.73 SQ M.PREDICTED [VOLUME RATE/AREA] IN SERUM, PLASMA OR BLOOD BY CREATININE- BASED FORMULA (CKD-EPI 2020) 87 07/27 Specimen Type: PLASMA No comment entered. Ordering Provider: MAXINE DEL CASTILLO Report Released Date/Time: Jul 28, 2023 10:45 AM Reporting Lab: [place] [facility] [address] [place] [address] Performing Lab: [place] [facility] [address] [place] [address] [facility] CBC LEUKOCYTES [#/VOLUME] IN BLOOD BY AUTOMATED COUNT 3.1 10*3/uL 3.6 - 11.2 07/27 L Specimen Type: BLOOD Comment: SUBMITTED FOR PATH REVIEW Ordering Provider: MAXINE DEL CASTILLO Report Released Date/Time: Jul 28, 2023 10:45 AM Reporting Lab: [place] [facility] [address] [place] [address] Performing Lab: [place] [facility] [address] [place] [address] [facility] CBC ERYTHROCYTE S [#/VOLUME] IN BLOOD BY AUTOMATED COUNT 3.59 10*6/uL 4.10 - 5.70 07/27 L Specimen Type: BLOOD Comment: SUBMITTED FOR PATH REVIEW Ordering Provider: MAXINE DEL CASTILLO Report Released Date/Time: Jul 28, 2023 10:45 AM Reporting Lab: [place] [facility] [address] [place] [address] Performing Lab: [place] [facility] [address] [place] [address] [facility] CBC HEMOGLOBIN [MASS/VOLUM E] IN BLOOD 11.4 g/dL 13.1 - 16.8 07/27 L Specimen Type: BLOOD Comment: SUBMITTED FOR PATH REVIEW Ordering Provider: MAXINE DEL CASTILLO Report Released Date/Time: Jul 28, 2023 10:45 AM Reporting Lab: [place] [facility] [address] [place] [address] Performing Lab: [place] [facility] [address] [place] [address] [facility] CBC HEMATOCRIT [VOLUME FRACTION] OF BLOOD 35.3 38.2 - 48.4 07/27 L Specimen Type: BLOOD Comment: SUBMITTED FOR PATH REVIEW Ordering Provider: MAXINE DEL CASTILLO Report Released Date/Time: Jul 28, 2023 10:45 AM Reporting Lab: [place] [facility] [address] [place] [address] Performing Lab: [place] [facility] [address] [place] [address] [facility] CBC MCV [ENTITIC VOLUME] BY AUTOMATED COUNT 98.3 fL 80.0 - 100.0 07/27 Specimen Type: BLOOD Comment: SUBMITTED FOR PATH REVIEW Ordering Provider: MAXINE DEL CASTILLO Report Released Date/Time: Jul 28, 2023 10:45 AM Reporting Lab: [place] [facility] [address] [place] [address] Performing Lab: [place] [facility] [address] [place] [address] [facility] CBC MCH [ENTITIC MASS] BY AUTOMATED COUNT 31.8 pg 27.0 - 34.0 07/27 Specimen Type: BLOOD Comment: SUBMITTED FOR PATH REVIEW Ordering Provider: MAXINE DEL CASTILLO Report Released Date/Time: Jul 28, 2023 10:45 AM Reporting Lab: [place] [facility] [address] [place] [address] Performing Lab: [place] [facility] [address] [place] [address] [facility] CBC MCHC [MASS/VOLUM E] BY AUTOMATED COUNT 32.3 g/dL 33.0 - 36.0 07/27 L Specimen Type: BLOOD Comment: SUBMITTED FOR PATH REVIEW Ordering Provider: MAXINE DEL CASTILLO Report Released Date/Time: Jul 28, 2023 10:45 AM Reporting Lab: [place] [facility] [address] [place] [address] Performing Lab: [place] [facility] [address] [place] [id number] [facility] CBC PLATELETS [#/VOLUME] IN BLOOD BY AUTOMATED COUNT 108 10*3/uL 150 - 400 07/27 L Specimen Type: BLOOD Comment: SUBMITTED FOR PATH REVIEW Ordering Provider: MAXINE DEL CASTILLO Report Released Date/Time: Jul 28, 2023 10:45 AM Reporting Lab: [place] [facility] [address] [place] [facility] Performing Lab: [place] [facility] [address] [place] [id number] [facility] CBC PLATELET MEAN VOLUME [ENTITIC VOLUME] IN BLOOD BY AUTOMATED COUNT 11.9 fL 7.5 - 11.2 07/27 H Specimen Type: BLOOD Comment: SUBMITTED FOR PATH REVIEW Ordering Provider: MAXINE DEL CASTILLO Report Released Date/Time: Jul 28, 2023 10:45 AM Reporting Lab: [place] [facility] [address] [place] [address] Performing Lab: [place] [facility] [address] [place] [address] [facility] CBC SEGMENTED NEUTROPHILS /100 LEUKOCYTES IN BLOOD BY MANUAL COUNT 62 07/27 Specimen Type: BLOOD Comment: SUBMITTED FOR PATH REVIEW Ordering Provider: MAXINE DEL CASTILLO Report Released Date/Time: Jul 28, 2023 10:45 AM Reporting Lab: [place] [facility] [address] [place] [address] Performing Lab: [place] [facility] [address] [place] [address] [facility] CBC BAND FORM NEUTROPHILS /100 LEUKOCYTES IN BLOOD BY MANUAL COUNT 12 07/27 Specimen Type: BLOOD Comment: SUBMITTED FOR PATH REVIEW Ordering Provider: MAXINE DEL CASTILLO Report Released Date/Time: Jul 28, 2023 10:45 AM Reporting Lab: [place] [facility] [address] [place] [address] Performing Lab: [place] [facility] [address] [place] [address] [facility] CBC MONOCYTES/1 00 LEUKOCYTES IN BLOOD BY AUTOMATED COUNT 4 07/27 Specimen Type: BLOOD Comment: SUBMITTED FOR PATH REVIEW Ordering Provider: MAXINE DEL CASTILLO Report Released Date/Time: Jul 28, 2023 10:45 AM Reporting Lab: [place] [facility] [address] [place] [address] Performing Lab: [place] [facility] [address] [place] [address] [facility] CBC EOSINOPHILS /100 LEUKOCYTES IN BLOOD BY MANUAL COUNT 2 07/27 Specimen Type: BLOOD Comment: SUBMITTED FOR PATH REVIEW Ordering Provider: MAXINE DEL CASTILLO Report Released Date/Time: Jul 28, 2023 10:45 AM Reporting Lab: [place] [facility] [address] [place] [address] Performing Lab: [place] [facility] [address] [place] [address] [facility] CBC METAMYELOCY GILL/100 LEUKOCYTES IN BLOOD BY MANUAL COUNT 3 0 07/27 H Specimen Type: BLOOD Comment: SUBMITTED FOR PATH REVIEW Ordering Provider: MAXINE DEL CASTILLO Report Released Date/Time: Jul 28, 2023 10:45 AM Reporting Lab: [place] [facility] [address] [place] [address] Performing Lab: [place] [facility] [address] [place] [address] [facility] CBC MYELOCYTES/ 100 LEUKOCYTES IN BLOOD 4 0 07/27 H Specimen Type: BLOOD Comment: SUBMITTED FOR PATH REVIEW Ordering Provider: MAXINE DEL CASTILLO Report Released Date/Time: Jul 28, 2023 10:45 AM Reporting Lab: [place] [facility] [address] [place] [address] Performing Lab: [place] [facility] [address] [place] [address] [facility] CBC PLATELET ADEQUACY [PRESENCE] IN BLOOD BY LIGHT MICROSCOPY DECREASED 07/27 Specimen Type: BLOOD Comment: SUBMITTED FOR PATH REVIEW Ordering Provider: MAXINE DEL CASTILLO Report Released Date/Time: Jul 28, 2023 10:45 AM Reporting Lab: [place] [facility] [address] [place] [address] Performing Lab: [place] [facility] [address] [place] [address] [facility] CBC NUCLEATED ERYTHROCYTE S/100 LEUKOCYTES [RATIO] IN BLOOD 1 /100{WBCs } 07/27 Specimen Type: BLOOD Comment: SUBMITTED FOR PATH REVIEW Ordering Provider: MAXINE DEL CASTILLO Report Released Date/Time: Jul 28, 2023 10:45 AM Reporting Lab: [place] [facility] [address] [place] [address] Performing Lab: [place] [facility] [address] [place] [address] [facility] CBC ERYTHROCYTE DISTRIBUTIO N WIDTH [RATIO] BY AUTOMATED COUNT 15.0 11.8 - 15.1 07/27 Specimen Type: BLOOD Comment: SUBMITTED FOR PATH REVIEW Ordering Provider: MAXINE DEL CASTILLO Report Released Date/Time: Jul 28, 2023 10:45 AM Reporting Lab: [place] [facility] [address] [place] [address] Performing Lab: [place] [facility] [address] [place] [address] [facility] CBC LYMPHOCYTES /100 LEUKOCYTES IN BLOOD BY MANUAL COUNT 11 07/27 Specimen Type: BLOOD Comment: SUBMITTED FOR PATH REVIEW Ordering Provider: MAXINE DEL CASTILLO Report Released Date/Time: Jul 28, 2023 10:45 AM Reporting Lab: [place] [facility] [address] [place] [address] Performing Lab: [place] [facility] [address] [place] [address] [facility] CBC VARIANT LYMPHOCYTES /100 LEUKOCYTES IN BLOOD BY MANUAL COUNT 2 07/27 Specimen Type: BLOOD Comment: SUBMITTED FOR PATH REVIEW Ordering Provider: MAXINE DEL CASTILLO Report Released Date/Time: Jul 28, 2023 10:45 AM Reporting Lab: [place] [facility] [address] [place] [address] Performing Lab: [place] [facility] [address] [place] [address] [facility] CBC PLATELETS [#/VOLUME] IN BLOOD BY ESTIMATE 1+ 07/27 Specimen Type: BLOOD Comment: SUBMITTED FOR PATH REVIEW Ordering Provider: MAXINE DEL CASTILLO Report Released Date/Time: Jul 28, 2023 10:45 AM Reporting Lab: [place] [facility] [address] [place] [address] Performing Lab: [place] [facility] [address] [place] [address] [facility] CBC MANUAL DIFFERENTIA L COMMENT [INTERPRETA TION] IN BLOOD NARRATIVE YES 07/27 Specimen Type: BLOOD Comment: SUBMITTED FOR PATH REVIEW Ordering Provider: MAXINE DEL CASTILLO Report Released Date/Time: Jul 28, 2023 10:45 AM Reporting Lab: [place] [facility] [address] [place] [address] Performing Lab: [place] [facility] [address] [place] [address] [facility] CBC MANUAL DIFFERENTIA L PERFORMED [PRESENCE] IN BLOOD 0.59 10*3/uL 0.00 07/27 Specimen Type: BLOOD Comment: SUBMITTED FOR PATH REVIEW Ordering Provider: MAXINE DEL CASTILLO Report Released Date/Time: Jul 28, 2023 10:45 AM Reporting Lab: [place] [facility] [address] [place] [address] Performing Lab: [place] [facility] [address] [place] [address] [facility] CBC EOSINOPHILS [#/VOLUME] IN BLOOD BY MANUAL COUNT 0.06 10*3/uL 0.00 - 0.60 07/27 Specimen Type: BLOOD Comment: SUBMITTED FOR PATH REVIEW Ordering Provider: MAXINE DEL CASTILLO Report Released Date/Time: Jul 28, 2023 10:45 AM Reporting Lab: [place] [facility] [address] [place] [address] Performing Lab: [place] [facility] [address] [place] [address] [facility] CBC MONOCYTES [#/VOLUME] IN BLOOD BY MANUAL COUNT 0.12 10*3/uL 0.19 - 0.8 07/27 L Specimen Type: BLOOD Comment: SUBMITTED FOR PATH REVIEW Ordering Provider: MAXINE DEL CASTILLO Report Released Date/Time: Jul 28, 2023 10:45 AM Reporting Lab: [place] [facility] [address] [place] [address] Performing Lab: [place] [facility] [address] [place] [address] [facility] CBC LYMPHOCYTES [#/VOLUME] IN BLOOD BY MANUAL COUNT 0.34 10*3/uL 0.77 - 4.50 07/27 L Specimen Type: BLOOD Comment: SUBMITTED FOR PATH REVIEW Ordering Provider: MAXINE DEL CASTILLO Report Released Date/Time: Jul 28, 2023 10:45 AM Reporting Lab: [place] [facility] [address] [place] [address] Performing Lab: [place] [facility] [address] [place] [address] [facility] CBC NEUTROPHILS [#/VOLUME] IN BLOOD BY MANUAL COUNT 1.92 10*3/uL 2.10 - 8.00 07/27 L Specimen Type: BLOOD Comment: SUBMITTED FOR PATH REVIEW Ordering Provider: MAXINE DEL CASTILLO Report Released Date/Time: Jul 28, 2023 10:45 AM Reporting Lab: [place] [facility] [address] [place] [address] Performing Lab: [place] [facility] [address] [place] [address] [facility] PROST. SPECIFIC AG.(PB-ST L) PROSTATE SPECIFIC AG [MASS/VOLUM E] IN SERUM OR PLASMA 8.44 ng/mL 0 - 4 03/10 H Specimen Type: SERUM No comment entered. Ordering Provider: MEHRDAD BRANDT Report Released Date/Time: Mar 09, 2023 03:47 PM Reporting Lab: [place] [facility] [address] [place] [address] Performing Lab: [place] [facility] [address] [place] [address] [place] [facility] Vital Signs Combined list of inpatient and outpatient Vital Signs from Department of Defense and Veterans Affairs, ranging from 12 months to all on record, depending upon the facility. Vital Sign Value Date Comments Source SYSTOLIC BLOOD PRESSURE 109 09/02/2023 16:10:00 [facility] DIASTOLIC BLOOD PRESSURE 73 09/02/2023 16:10:00 [facility] PULSE OXIMETRY 94 09/02/2023 16:10:00 [facility] WEIGHT 257.5 09/02/2023 16:10:00 [facility] BMI 32 kg/m2 09/02/2023 16:10[facility] PAIN 4 09/02/2023 16:10:00 [facility] HEIGHT 75.0 09/02/2023 16:10:00 [facility] TEMPERATURE 98.5 09/02/2023 16:10:00 [facility] PULSE 72 09/02/2023 16:10:00 [facility] RESPIRATION 18 09/02/2023 16:10:00 [facility] Encounters Combined list of: 1) Encounters from Department of Veterans Affairs facilities going backup to the last 18 months, not all [place] inpatient encounters are included; 2) Encounters from the Department of [facility] facilities going backup to 280 months. Location Location Details Encounter Type Encounter Number Reason For Visit Attending Provider ADM Date DC Date Status Disposition Source [facility] OFF/OP EST JUNE X REQ PHY/QHP [id number] Diagnos is: ICD-10- CM R31.9 Hematur ia, unspeci fied MAXINE DEL CASTILLO 03/[facility] Outpatient Encounter [id number] 03/09 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 MEHRDAD BRANDT 03/10 [facility] Out[facility]counter [id number] 03/12 [facility] Outpatient Encounter [id number] 05/15 [facility] Outpatient Encounter [id number] 06/12 [facility] Out[facility] Encounter [id number] MAXINE DEL CASTILLO 07/27 [facility] Outpatient Encounter [id number] PAUL DE LEON 07/30 [facility] Outpatient Encounter [id number] 08/16 [facility] Outpatient Encounter [id number] 08/17 [facility] Outpatient Encounter [id number] 09/01 [facility] TELEHEALTH FAC[facility] FEE [id number] Diagnos is: ICD-10- CM Z00.01 Encount er for general adult medical exam w abnorma l finding s FELICITA GONZALEZ Roby 09/01 [facility] OFFICE O/P EST MOD 30 MIN [id number] Diagnos is: ICD-10- CM Z00.01 Encount er for general adult medical exam w abnorma l finding s MAXINE DEL CASTILLO 09/01 [facility] [place] [facility] Outpatient Encounter [id number] 09/14 [place] [facility] Outpatient Encounter [id number] 12/01 [facility] [place] [facility] Outpatient Encounter [id number] 12/03 [place] [facility] Outpatient Encounter [id number] 02/04 [facility] Social History Combined list of available smoking, tobacco, and other social history from Department of Defense and Veterans Affairs facilities. Social History Type Response Date Comment Source Tobacco smoking status [facility] VA-TOBACCO FORMER USER 09/02/2023 [facility] History of tobacco use [place]AC[place] QUIT 1 TO < 5 YRS 09/02/2023 [facility] History of tobacco use VA-TOBACCO FORMER USER 07/30/2022 [facility] History of tobacco use VA-TOBACCO USER EVERY DAY 07/18/2021 [facility] History of tobacco use CURRENT NON-TOBACCO USER-HX OF USE 05/25/2018 [facility] History of tobacco use TOBACCO USER OFFERED MEDS 05/13/2017 [facility] History of tobacco use TOBACCO OFFERED PT MEDS (PROVIDER) 07/25/2015 [facility] History of tobacco use TOBACCO OFFERED PT MEDS (PROVIDER) 07/14/2012 [facility] History of tobacco use TOBACCO OFFERED PT MEDS (PROVIDER) 12/10/2010 [facility] RODRIGUE[facility] History of tobacco use LIFETIME NON-USER OF TOBACCO 04/18/2010 [facility] History of tobacco use CURRENT TOBACCO USER 03/07/2009 [facility] History of tobacco use QUIT TOBACCO IN THE LAST 12 MONTHS 03/01/2008 [facility] History of tobacco use CURRENT TOBACCO USER 06/03/[address] [facility] History of tobacco use CURRENT TOBACCO USER 01/19/2007 see pcp note 12.11.07 [facility] History of tobacco use QUIT TOBACCO >7 YEARS AGO 05/04/2006 [facility] History of tobacco use CURRENT TOBACCO USER 09/26/2005 [facility] History of tobacco use CURRENT NON-TOBACCO USER-HX OF USE 07/16/2005 [facility] History of tobacco use CURRENT TOBACCO USER 06/03/2005 [facility] History of tobacco use CURRENT NON-TOBACCO USER-HX OF USE 01/06/2005 Stopped with nicotine patches 1 year ago [facility] History of tobacco use CURRENT NON-TOBACCO USER-HX OF USE 08/21/2004 [facility] History of tobacco use CURRENT NON-TOBACCO USER-RECENTLY QUIT 07/16/2004 [facility] History of tobacco use CURRENT TOBACCO USER 06/17/2004 [facility] History of tobacco use CURRENT TOBACCO USER 01/23/2004 [facility] History of tobacco use CURRENT TOBACCO USER 12/20/2003 [facility] Plan of Care List of future care activities from [facility] facilities. Additional future care activities may be listed in the Assessment and Plan section. Date/Time Care Activity Care Activity Detail Facili ty 09/05/2024 AMBULATORY - MEDICINE AMBULATORY - MEDICI [facility] Advance Directives List of completed, amended, or rescinded Advance Directives on record at [facility] facilities. An actual copy of the Directive is not included. Date Advance Directive Provider Source 03/04/2004 [facility] DIRECT[facility] LAUREN REYESU [facility]
--- OUTSIDE RECORDS SUMMARY | 2024-08-24 12:00 | XMS_ITS ---
Author Organization [facility] Address [address] [place] [address] Care Team Providers Care Manager Of Care Name Role Phone Katelin WYATT, Jose Primary Care Provider Unavailab LYDIA Malave Unavailable [phone] BANDAR MENJIVAR Unavailable [phone] REASON FOR VISIT 3 wk sp tube chg Encounters Encounter Location Date Provider Diagnosis [facility] [address] [place] [facility] [place] [address] 08/24/2024 BANDAR MENJIVAR Plan Of Treatment Next Appt Details Provider Name:BANDAR Simons, 09/01/2024 10:00:00 AM, [address] [place], [address], Provider Name:BANDAR Simons, 11/30/2024 10:15:00 AM, [address] [place], [address], Progress Notes * ANNAMARIA BRANDON RDOB:[birth year] (79 yo M)Acc No.[id number]:08/24/2024 Progress Note Patient: ANNAMARIA TOPETE Provider: Roby Menjivar MD :1945 A ge:79 Y S ex:Male Date:08/24/2024 Address:[address] [place], [place] [phone] Pcp:Jose Thomason MD Subjective: * Chief Complaints: * 1 . 3 wk sp tube chg. * Medical History: Objective: * Vitals: Assessment: Plan: * Treatment: * Billing Information: * Visit Code: * Procedure Codes: * Electronic signature of JIMMY MENJIVAR MD on 08/26/2024 at 03:27 AM CDT Sign off status: Pending * Provider: Roby Menjivar MD Date: 08/24/2024 Generated for Luc mcnally/Dudley/Miguelito on: 08/26/2024 03:27 AM CDT
[2024-08-26 03:26] VITALS: BP 152/95; PULSE 94; RESP 18; TEMP 36.6; O2SAT 94; BMI 23.2
--- OUTSIDE RECORDS SUMMARY | 2024-08-26 03:27 | XMS_ITS | Clinical Summary ---
Author Organization [facility] Address [address] 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 9 Active denosumab (XGEVA) 120 mg/1.7 mL (70 mg/mL) Solution Inject 120 mg by subcutaneous injection every 30 days. Active ipratropium-albu teroL (DUONEB) 0.5 mg-3 mg(2.5 mg base)/3 mL Solution for Nebulization Take 3 mL by inhalation. Active calcium as carbonate (OS-AMY) 1,250 mg (500 mg elemental) tablet Take 1 Tablet by mouth daily. Active nitroglycerin (NITROSTAT) 0.4 mg Tablet, Sublingual Place 0.4 mg under tongue every 5 minutes as needed for Chest Pain. Active goserelin (ZOLADEX) 10.8 mg Implant Inject 10.8 mg by subcutaneous injection every 90 days. Active aspirin (MINDY CHEWABLE) 81 mg Tablet, Chewable Take 81 mg by mouth daily. Active mirtazapine (REMERON) 7.5 mg tablet Take 7.5 mg by mouth daily at bedtime. Active esomeprazole (NexIUM) 20 mg Capsule, Delayed Release(E.C.) Take 40 mg by mouth daily before breakfast. 9 Active fluticasone-umec lidinium-vilante rol (Trelegy Ellipta) 100-62.5-25 mcg Disk with Device by See Admin Instructions route. 0 Active abiraterone (ZYTIGA) 250 mg tablet Take 250 mg by mouth daily. 0 Active HYDROcodone-acet aminophen (NORCO) 5-325 mg tablet Take 325 Tablets by mouth every 4 hours as needed. 0 Active predniSONE (DELTASONE) 5 mg tablet Take 5 mg by mouth daily. 0 Active fluticasone propionate (FLONASE) 50 mcg/spray [place], Suspension nasal inhaler 50 mcg by See Admin Instructions route. 0 Active SITagliptin (Januvia) 100 mg Tablet Take 100 mg by mouth. 0 Active albuterol sulfate (ProAir HFA) 90 mcg/Actuation inhaler Take 1 Puff by inhalation every 4 hours as needed. 0 Active levothyroxine 137 mcg tablet Take 1 Tablet (137 mcg) by mouth daily in the morning. 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 03/25/2018 History of tobacco abuse 03/25/2018 Obesity (BMI 30.0-34.9) 03/25/2018 Hypocalcemia 03/25/2018 Papillary thyroid carcinoma 03/24/2018 Cancer Staging:Clinical: Unsigned Pathologic: pT1b, pN1b, cM0 - Signed by Svetlana Allen MD on 04/12/2018 H/O total thyroidectomy-02/23/2017 03/24/2018 Acquired hypothyroidism 03/24/2018 Primary thyroid malignancy Malignant neoplasm of thyroid gland Social History Tobacco Use Types Packs/Day Years Used Date Smoking Tobacco: Never Assessed Sex and Gender Information Value Date Recorded Sex Assigned at Not on file 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 Gender Identity Not on file Sexual Orientation Not on file Last Filed Vital Signs Vital Sign Reading Time Taken Comments Blood Pressure 118/78 07/03/2021 9:50 AM CDT Pulse 80 07/03/2021 9:50 AM CDT Temperature 36.1 C (96.9 F) 06/17/2018 8:50 AM CDT Respiratory Rate 16 06/17/2018 8:50 AM CDT Oxygen Saturation - - Inhaled Oxygen Concentration - - Weight 110.7 kg (244 lb) 07/03/2021 9:50 AM CDT Height 190.5 cm (6' 3 ) 07/03/2021 9:50 AM CDT Body Mass Index 30.5 07/03/2021 9:50 AM CDT Plan of Treatment Health Maintenance Due Date Last Done Comments DIABETES ANNUAL FOOT EXAM 1963 DIABETES ANNUAL RETINAL EXAM 1963 DIABETES HBA1C Q 6 MONTHS 1963 DIABETES MICROALBUMIN ANNUAL SCREEN 1963 LDL CHOLESTEROL ANNUAL 1963 ZOSTER VACCINE (1 of 2) 1964 DTAP/TDAP/TD VACCINES (2 - T d or Tdap) 05/03/2018 05/03/2008 RSV VACCINE (60+ or ) (1 - 1-dose 75+ series) 2020 INFLUENZA VACCINE (#1) 2024 PNEUMOCOCCAL VACCINE 50+ YEARS Completed 1 , 07/24/2014, 02/10/2012, Additional history exists Insurance [place] [id number] Member Subscriber Plan / Payer (Ef fective 2021-Present) Name:Charlie Jacobs Relation to Subscriber:Self Name:Charlie Jacobs Payer ID:[id number] (NAIC) Type:PPO Address: [address] [id number] [place] Care Teams Printing Manager Relationship Specialty Start Date End Date Henry Bunch DO [address] [place] [address] PCP - General Internal Medicine 06/08/18
--- OUTSIDE RECORDS SUMMARY | 2024-08-26 03:27 | XMS_ITS | Clinical Summary ---
Author Organization [facility] Address [address] [place] [address] Care Team Providers Care Buffing Wheel Presser Name Role Phone Bunch Henry Ritter Primary Care Provide r Allergies Active Allergy Reactions Criticality Noted Date Comments Vancomycin Hives High 03/25/2018 Medications alfuzosin (UROXATRAL) 10 mg Extended Release 24 hour tabletIndication s:Primary thyroid malignancy (CMS/HCC),Acquir ed hypothyroidism,H /O total thyroidectomy,Ma lignant neoplasm metastatic to lymph node of neck (CMS/HCC),Tobacc o abuse,Hypocalcem ia,Obesity (BMI 30.0-34.9) Take 10 mg by mouth daily. Active cetirizine (ZyrTEC) 10 mg tabletIndication s:Primary thyroid malignancy (CMS/HCC),Acquir ed hypothyroidism,H /O total thyroidectomy,Ma lignant neoplasm metastatic to lymph node of neck (CMS/HCC),Tobacc o abuse,Hypocalcem ia,Obesity (BMI 30.0-34.9) Take 10 mg by mouth daily. Active metoprolol succinate (TOPROL XL) 25 mg Extended Release 24 hour tabletIndication s:Primary thyroid malignancy (CMS/HCC),Acquir ed hypothyroidism,H /O total thyroidectomy,Ma lignant neoplasm metastatic to lymph node of neck (CMS/HCC),Tobacc o abuse,Hypocalcem ia,Obesity (BMI 30.0-34.9) Take 25 mg by mouth daily. Active montelukast (SINGULAIR) 10 mg tabletIndication s:Primary thyroid malignancy (CMS/HCC),Acquir ed hypothyroidism,H /O total thyroidectomy,Ma lignant neoplasm metastatic to lymph node of neck (CMS/HCC),Tobacc o abuse,Hypocalcem ia,Obesity (BMI 30.0-34.9) Take 10 mg by mouth daily at bedtime. Active ezetimibe (ZETIA) 10 mg tabletIndication s:Primary thyroid malignancy (CMS/HCC),Acquir ed hypothyroidism,H /O total thyroidectomy,Ma lignant neoplasm metastatic to lymph node of neck (CMS/HCC),Tobacc o abuse,Hypocalcem ia,Obesity (BMI 30.0-34.9) Take 10 mg by mouth daily. Active atorvastatin (LIPITOR) 80 mg tabletIndication s:Primary thyroid malignancy (CMS/HCC),Acquir ed hypothyroidism,H /O total thyroidectomy,Ma lignant neoplasm metastatic to lymph node of neck (CMS/HCC),Tobacc o abuse,Hypocalcem ia,Obesity (BMI 30.0-34.9) Take 80 mg by mouth daily with supper. Active metFORMIN (GLUCOPHAGE) 1,000 mg tabletIndication s:Primary thyroid malignancy (CMS/HCC),Acquir ed hypothyroidism,H /O total thyroidectomy,Ma lignant neoplasm metastatic to lymph node of neck (CMS/HCC),Tobacc o abuse,Hypocalcem ia,Obesity (BMI 30.0-34.9) Take 1,000 mg by mouth 2 times daily with meals. Active bicalutamide (CASODEX) 50 mg TabletIndication s:Primary thyroid malignancy (CMS/HCC),Acquir ed hypothyroidism,H /O total thyroidectomy,Ma lignant neoplasm metastatic to lymph node of neck (CMS/HCC),Tobacc o abuse,Hypocalcem ia,Obesity (BMI 30.0-34.9) Take 50 mg by mouth daily. Active cyclobenzaprine (FLEXERIL) 10 mg tabletIndication s:Primary thyroid malignancy (CMS/HCC),Acquir ed hypothyroidism,H /O total thyroidectomy,Ma lignant neoplasm metastatic to lymph node of neck (CMS/HCC),Tobacc o abuse,Hypocalcem ia,Obesity (BMI 30.0-34.9) Take 10 mg by mouth 3 times daily as needed for Spasm. Active ondansetron (ZOFRAN) 4 mg TabletIndication s:Primary thyroid malignancy (CMS/HCC),Acquir ed hypothyroidism,H /O total thyroidectomy,Ma lignant neoplasm metastatic to lymph node of neck (CMS/HCC),Tobacc o abuse,Hypocalcem ia,Obesity (BMI 30.0-34.9) Take 4 mg by mouth every 8 hours as needed for Nausea/Emesis. Active mirtazapine (REMERON) 7.5 mg tablet Take 7.5 mg by mouth daily at bedtime. Active goserelin (ZOLADEX) 10.8 mg Implant Inject 10.8 mg by subcutaneous injection every 90 days. Active denosumab (XGEVA) 120 mg/1.7 mL (70 mg/mL) Solution Inject 120 mg by subcutaneous injection every 30 days. Active calcium as carbonate (OS-AMY) 1,250 mg (500 mg elemental) tablet Take 1 Tablet by mouth daily. Active aspirin (MINDY CHEWABLE) 81 mg Tablet, Chewable Take 81 mg by mouth daily. Active ipratropium-albu terol (DUONEB) 0.5 mg-3 mg(2.5 mg base)/3 mL Solution for Nebulization Take 3 mL by inhalation. Active nitroglycerin (NITROSTAT) 0.4 mg Tablet, Sublingual Place 0.4 mg under tongue every 5 minutes as needed for Chest Pain. Active esomeprazole (NexIUM) 20 mg Capsule, Delayed Release(E.C.) Take 40 mg by mouth daily before breakfast. Active abiraterone (ZYTIGA) 250 mg tablet Take 250 mg by mouth daily. 0 Active ProAir HFA 90 mcg/actuation inhaler Take 1 Puff by inhalation every 4 hours as needed. 0 Active HYDROcodone-acet aminophen (NORCO) 5-325 mg tablet Take 325 Tablets by mouth every 4 hours as needed. 0 Active Trelegy Ellipta 100-62.5-25 mcg Disk with Device by See Admin Instructions route. 0 Active predniSONE (DELTASONE) 5 mg tablet Take 5 mg by mouth daily. 0 Active fluticasone propionate (FLONASE) 50 mcg/spray [place], Suspension nasal inhaler 50 mcg by See Admin Instructions route. 0 Active Januvia 100 mg Tablet Take 100 mg by mouth. 0 Active levothyroxine 175 mcg tablet Take 1 Tablet (175 mcg) by mouth daily in the morning. 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 nick 03/25/2018 Tobacco abuse 03/25/2018 Hypocalcemia 03/25/2018 Obesity (BMI 30.0-34.9) 03/25/2018 Papillary thyroid carcinoma 03/24/2018 Cancer Staging:Clinical: Unsigned Pathologic: pT1b, pN1b, cM0 - Signed by Svetlana Allen MD on 04/12/2018 Acquired hypothyroidism 03/24/2018 H/O total thyroidectomy-02/23/2017 03/24/2018 Malignant neoplasm of thyroid gland Primary thyroid malignancy Social History Tobacco Use Types Packs/Day Years Used Date Smoking Tobacco: Never Assessed Sex and Gender Information Value Date Recorded Sex Assigned at Not on file 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 Gender Identity Not on file Sexual Orientation Not on file Last Filed Vital Signs Vital Sign Reading Time Taken Comments Blood Pressure 116/66 07/03/2020 11:20 AM CDT Pulse 78 07/03/2020 11:20 AM CDT Temperature 36.1 C (96.9 F) 06/17/2018 8:50 AM CDT Respiratory Rate 16 06/17/2018 8:50 AM CDT Oxygen Saturation 96% 06/17/2018 8:50 AM CDT Inhaled Oxygen Concentration - - Weight 111.6 kg (246 lb) 07/03/2020 11:20 AM CDT Height 190.5 cm (6' 3 ) 07/03/2020 11:20 AM CDT Body Mass Index 30.75 07/03/2020 11:20 AM CDT Plan of Treatment Health Maintenance Due Date Last Done Comments DTAP/TDAP/TD VACCINES (1 - Tdap) 1964 PNEUMOCOCCAL VACCINE 50+ YEARS (1 of 2 - PCV) 03/08/18 65 ZOSTER VACCINE (1 of 2) 1964 RSV VACCINE (60+ or ) (1 - 1-dose 75+ series) 2020 INFLUENZA VACCINE (#1) 2024 Insurance MEDICAID [facility] DUAL COMPLETE MCR PPO D-SNP Care Teams Buffing Wheel Presser Relationship Specialty Start Date End Date Henry Bunch DO [address] [place] [address] PCP - General Internal Medicine 06/08/18
--- OUTSIDE RECORDS SUMMARY | 2024-08-26 03:28 | XMS_ITS | Encounter Summary ---
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
--- OUTSIDE RECORDS SUMMARY | 2024-08-26 03:28 | XMS_ITS | Patient Health Record ---
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 Name Role Phone Katelin WYATT, Jose Primary Care Provider Unavailab LYDIA Malave Unavailable [phone] JONG MENJIVAR Unavailable [phone] JILLIAN MENDOZA Unavailable [phone] Jong Hercules Unavailable [phone] Allergies Allergen (clinical drug ingredient) Drug/Non Drug Allergy documented on EMR Reaction Allergy Type Onset Date Status vancomycin Vancomycin hives Drug Allergy Activ e Results Component Value Reference Range Notes Urinalysis, Routine Reviewed date:10/01/2023 11:27:10 AM Interpretation: Performing Lab: Notes/Report: Urine-Color dark yellow Appearance cloudy Glucose - Bilirubin - Ketones - Specific [place] 1.030 Occult Blood 3+ pH 6.0 Urine Protein 2+ Urobilinogen,Semi-Qn - Nitrite, Urine pos WBC Esterase 2+ Urinalysis, Routine Reviewed date:10/20/2023 04:12:17 PM Interpretation: Performing Lab: Notes/Report: Urine-Color dark yellow Appearance cloudy Glucose - Bilirubin - Ketones - Specific [place] 1.025 Occult Blood 3+ pH 6.0 Urine Protein 3+ Urobilinogen,Semi-Qn - Nitrite, Urine - WBC Esterase 3+ Reason For Referral No Information Medications Medication SIG (Take, Route, Frequency, Duration) Notes Start Date End Date Status Nitroglycerin Active Xgeva 120 MG/1.7ML as directed Subcutaneous Active LORazepam 2 MG/ML 1 mL as needed Orall y Twice a day Active Meclizine HCl Not-Ta jaden Vitamin D3 Active Vitamin D Active Albuterol Not-Taking Tamsulosin HCl 0.4 MG 1 capsule Orally O nce a day Active levoFLOXacin 500 MG 1 tablet Orally Once a day Not-Taking Trelegy Ellipta 100-62.5-25 MCG/ACT 1 puff Inhalation Once a day Active Triamcinolone Acet & Anesth Active Metoclopramide HCl 5 MG 1 tablet before meals Orally Twice a day Active Promethazine HCl 6.25 MG/5ML 10 mL as needed Orally every 6 hrs Not-Taking Montelukast Sodium 10 MG 1 tablet Orally Once a day Active Mupirocin 2 % 1 application Externally Twice a day Not-Taking Probiotic Active Triamcinolone (oint)-Silicone Not-Taking Calcium Active Rosuvastatin Calcium 40 MG 1 tablet Orally Once a day Active Flonase Not-Taking Aspirin 81 81 MG 1 tablet Orally Once a day Active carBAMazepine ER 100 MG 1 tablet Orally Twice a day Not-Taking Eliquis 5 MG 1 tablet Orally Twic e a day Active Cetirizine HCl 10 MG 1 tablet Orally Onc e a day Not-Taking Januvia 100 MG 1 tablet Orally Once a day Active Zoladex 10.8 MG as directed Subcutaneous Not-Taking Levothyroxine Sodium 175 MCG 1 tablet in the morning on an empty stomach Orally Once a day Active Ondansetron HCl 4 MG 1 tablet Orally Onc e a day Not-Taking Famotidine 20 MG 1 tablet at bedtime as needed Orally twice a day 40mg Active PreserVision AREDS 2 Active predniSONE Not-in g Abiraterone Acetate 500 MG 2 tablets Orally Once a day Not-Taking Alfuzosin HCl Not- jaden Ondansetron 8 MG 1 tablet on the tongue and allow to dissolve as needed Orally Once a day Active Prochlorperazine Not -Taking Xtandi Active Metoprolol Succinate ER 25 MG 1 tablet Orally Once a day Not-Taking Ipratropium [place] Active Fluconazole 100 MG 1 tablet Orally Not-Taking Nasal [place] Not- ng traZODone HCl 50 MG 1 tablet at bedtime as needed Orally Once a day Active predniSONE 5 MG 1 tablet Orally Once a day Not-Taking Morphine Sulfate 15 MG 1 tablet as needed Orally every 6 hrs As needed Active Esomeprazole Magnesium 40 MG 1 capsule Orally Once a day Not-Taking Finasteride 5 MG 1 tablet Orally Once a day for 90 days 05/17/2024 05/12/2025 Not-Taking Claritin Active Tylenol Active glipiZIDE 2.5 MG 1 tablet 30 minutes before breakfast Orally Once a day Not-Taking Social History Tobacco Use: Social History Observation Description Date Details (start date - stop date) Former Smoker NA - NA Tobacco Control (Standard) Question Answer Notes Tobacco use: Former smoker How long has it been since you last smoked? 1-5 years AUDIT-C (Standard) Question Answer Notes Did you have a drink containing alcohol in the p ast year? No Points 0 Interpretation Negative Section Notes: Smoking history - ages 9 -77 yrs old ETOH - ages 21-60 Smoking history - ages 9 -77 yrs old ETOH - ages 21-60 Smoking history - ages 9 -77 yrs old ETOH - ages 21-60 Smoking history - ages 9 -77 yrs old ETOH - ages 21-60 Smoking history - ages 9 -77 yrs old ETOH - ages 21-60 Smoking history - ages 9 -77 yrs old ETOH - ages 21-60 Smoking history - ages 9 -77 yrs old ETOH - ages 21-60 Smoking history - ages 9 -77 yrs old ETOH - ages 21-60 Smoking history - ages 9 -77 yrs old ETOH - ages 21-60 Smoking history - ages 9 -77 yrs old ETOH - ages 21-60 Smoking history - ages 9 -77 yrs old ETOH - ages 21-60 Smoking history - ages 9 -77 yrs old ETOH - ages 21-60 Problems Problem Type SNOMED Code ICD Code Onset Dates Problem Status W/U Status Risk Notes Problem Incision of bladder (54312529) Encounter for attention to cystostomy (Z43.5) Active confirmed Problem 623027561 Type 2 diabetes mellitus without complication, unspecified whether shelter insulin use (E11.9) Active confirmed Problem Suprapubic catheter (406914813) Suprapubic catheter (Z93.59) Active confirmed Problem Bladder calculus (80110023) Bladder calculus (N21.0) Active confirmed Problem Encounter for suprapubic catheter care (Z43.5) Active confirmed Problem 54486659 Chronic obstructive pulmonary disease, unspecified COPD type (J44.9) Active confirmed Problem Change of urinary catheter bag (procedure) (234131548) Catheter (urine) change required (Z46.6) Active confirmed Problem History of radiation exposure (742335285) S/P radiation therapy (Z92.3) Active confirmed Problem Metastatic adenocarcinoma to prostate (2855184681) Metastatic adenocarcinoma to prostate (C79.82) Active confirmed Problem Malignant tumor of prostate (897116216) Prostate cancer (C61) Active confirmed Vital Signs Heart Rate 62 /min 08/18/2024 Height-cm 190.5 cm 08/18/2024 Blood pressure diastolic 67 mm Hg 08/18/2024 Weight-kg 90.72 kg 08/18/2024 Height 75 in 08/18/2024 Blood pressure systolic 109 mm Hg 08/18/2024 Weight 200 lbs 08/18/2024 BMI 25 kg/m2 08/18/2024 Procedures Procedure Date Ordered Date Performed Result Body Sit e SP Tube Change 09/08/2023 09/08/2023 N/A SP Tube Change 10/01/2023 10/01/2023 N/A SP Tube Change 10/27/2023 10/27/2023 N/A SP Tube Change 12/01/2023 12/01/2023 N/A SP Tube Change 12/29/2023 12/29/2023 N/A SP Tube Change 02/17/2024 02/17/2024 N/A SP Tube Change 03/02/2024 03/03/2024 N/A SP Tube Change 06/21/2024 06/21/2024 N/A SP Tube Change 07/12/2024 07/12/2024 N/A SP Tube Change 08/03/2024 08/03/2024 N/A SP Tube Change 08/18/2024 08/18/2024 N/A Encounters Encounter Location Date Provider Diagnosis [facility], [facility] [address] [place] [address] 03/30/2024 LYDIA GONZALES [facility], [facility] [address] [place] [address] 09/08/2023 JONG MENJIVAR Encounter for attent ion to cystostomy Z43.5 ; Urinary retention R33.9 and Encounter for Dacosta catheter replacement Z46.6 [facility], [facility] [address] [place] [address] 10/01/2023 LYDIA GONZALES Bladder calculus N21 .0 ; Abnormal urine finding R82.90 ; Gross hematuria R31.0 ; Suprapubic catheter Z93.59 ; Urinary retention R33.9 ; Prostate cancer C61 ; Metastatic adenocarcinoma to prostate C79.82 ; History of orchiectomy, 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 ; S/P radiation therapy Z92.3 and Encounter for attention to cystostomy Z43.5 [facility] [employer] [facility], [facility] [address] [place] [address] 10/20/2023 JONG MENJIVAR Bladder calculus N21 .0 ; Urinary retention R33.9 ; Abnormal urine finding R82.90 ; Gross hematuria R31.0 ; Suprapubic catheter Z93.59 ; Prostate cancer C61 ; Metastatic adenocarcinoma to prostate C79.82 ; History of orchiectomy, 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 ; S/P radiation therapy Z92.3 ; Encounter for attention to cystostomy Z43.5 and Complicated UTI (urinary tract infection) N39.0 [facility] [employer] [facility], [facility] [address] [place] [address] 10/27/2023 LYDIA GONZALES Urinary retention R3 3.9 ; Prostate cancer C61 ; Metastatic adenocarcinoma to prostate C79.82 ; History of orchiectomy, 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 ; S/P radiation therapy Z92.3 and Encounter for attention to cystostomy Z43.5 [facility] [employer] [facility], [facility] [address] [place] [address] 12/01/2023 JILLIAN MENDOZA Encounter for attent ion to cystostomy Z43.5 and Suprapubic catheter Z93.59 [facility] [employer] [facility], [facility] [address] [place] [address] 12/29/2023 JONG MENJIVAR Urinary retention R3 3.9 and Encounter for suprapubic catheter care Z43.5 [facility] [employer] [facility], [facility] [address] [place] [address] 02/17/2024 JONG MENJIVAR Encounter for suprapubic catheter care Z43.5 and Urinary retention R33.9 [facility] [employer], [facility] [address] [place] [address] 03/02/2024 JONG MENJIVAR Urinary retention R3 3.9 ; Prostate cancer C61 ; Metastatic adenocarcinoma to prostate C79.82 ; History of orchiectomy, 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 ; S/P radiation therapy Z92.3 and Encounter for attention to cystostomy Z43.5 [facility] [address] [place] [address] 03/09/2024 JONG MENJIVAR Trigonitis N30.30 [facility] [address] [place] [address] 04/06/2024 LYDIA GONZALES Urinary retention R3 3.9 ; Prostate cancer C61 ; Metastatic adenocarcinoma to prostate C79.82 ; History of orchiectomy, 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 and S/P radiation therapy Z92.3 [facility] [address] [place] [address] 05/31/2024 JONG MENJIVAR Urinary retention R3 3.9 ; Prostate cancer C61 ; Metastatic adenocarcinoma to prostate C79.82 ; History of orchiectomy, 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 and S/P radiation therapy Z92.3 [facility] [address] [place] [address] 06/21/2024 JONG MENJIVAR Encounter for suprapubic catheter care Z43.5 and Urinary retention R33.9 [facility] [address] [place] [address] 07/12/2024 JONG MENJIVAR Encounter for suprapubic catheter care Z43.5 and Prostate cancer C61 [facility] [address] [place] [address] 08/03/2024 JONG MENJIVAR Encounter for suprapubic catheter care Z43.5 and Prostate cancer C61 [facility] [address] [place] [address] 08/18/2024 Jong Hercules Urinary retention R3 3.9 ; Prostate cancer C61 ; Metastatic adenocarcinoma to prostate C79.82 ; History of orchiectomy, 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 ; S/P radiation therapy Z92.3 and Encounter for attention to cystostomy Z43.5 [facility] [address] [place] [address] 10/13/2023 LYDIA GONZALES [facility] [address] [place] [address] 12/15/2023 LYDIA REANO [facility] [address] [place] [address] 01/18/2024 JILLIAN KELLY [facility] [address] [place] [address] 02/16/2024 LYDIA REANO [facility] [address] [place] [address] 02/18/2024 LYDIA REANO [facility] [address] [place] [address] 2024 JONG MENJIVAR [facility] [address] [place] [address] 2024 JONG MENJIVAR [facility] [address] [place] [address] 2024 LYDIA REANO [facility] [address] [place] [address] 04/04/2024 LYDIA REANO [facility] [address] [place] [address], [place] [address] 04/05/2024 JONG MENJIVAR [facility] [address] [place] [address] 05/17/2024 JONG MENJIVAR [facility] [address] [place] [address], [place] [address] 05/24/2024 LYDIA REANO [facility] [address] [place] [address], [place] [address] 05/30/2024 LYDIA GONZALES Assessments Encounter Date Diagnosis (ICD Code) Assessment Notes Treatment Notes Treatment Clinical Notes Section Notes 07/12/2024 Encounter for suprapubic catheter care (ICD-10 - Z43.5) Pt here for routine sptube change and he tolerated well. He will return in 3wks of repeat change. 07/12/2024 Prostate cancer (ICD-10 - C61) Pt here for routine sptube change and he tolerated well. He will return in 3wks of repeat change. 05/31/2024 Urinary retention (ICD-10 - R33.9) He had a clogged SP tube and outside emergency room could only place a 10 [place] suprapubic tube. I was able to remove this and dilate up to 16 [place] and get a 16 [place] suprapubic tube back into the bladder under direct cystoscopic visualization. He did have some prostate blockage but otherwise his urethra was patent also with no pathology within the bladder. We will move to every 3 week suprapubic tube changes here at our office. Continue prostate cancer surveillance as previously scheduled with follow-up in the next few months. Following cystoscopy, we have spent over 10 minutes in further consultation and treatment planning with greater than 50% of that time in direct [id number] discussion. 04/06/2024 Prostate cancer (ICD-10 - C61) 04/06/2024 Urinary retention (ICD-10 - R33.9) 03/09/2024 Trigonitis (ICD-10 - N30.30) 02/17/2024 Encounter for suprapubic catheter care (ICD-10 - Z43.5) pt here with complaints that his sptube catheter has been clogged and not draining since Thursday evening and he has been voiding naturally along with urge incontinence. Sptube was changed without issue and 200ml drained from bladder. Pt tolerated well. He would like to cancel HH and start having sptube changed here. SPtube cycling was taught with verbal understanding from both and pt. Sptube will be changed at next office visit and then again q4wks. 02/17/2024 Urinary retention (ICD-10 - R33.9) pt here with complaints that his sptube catheter has been clogged and not draining since Thursday evening and he has been voiding naturally along with urge incontinence. Sptube was changed without issue and 200ml drained from bladder. Pt tolerated well. He would like to cancel HH and start having sptube changed here. SPtube cycling was taught with verbal understanding from both and pt. Sptube will be changed at next office visit and then again q4wks. 12/29/2023 Encounter for suprapubic catheter care (ICD-10 - Z43.5) Pt here for routine sptube change. He tolerated well and will return in 4 wks for repeat change. 12/29/2023 Urinary retention (ICD-10 - R33.9) Pt here for routine sptube change. He tolerated well and will return in 4 wks for repeat change. 12/01/2023 Encounter for attention to cystostomy (ICD-10 - Z43.5) 12/01/2023 Suprapubic catheter (ICD-10 - Z93.59) 03/02/2024 Prostate cancer (ICD-10 - C61) PSA of 2.41 corrected to 4.82 with Finasteride on 02/25/24. Recommended that he stop taking Finasteride. He is not voiding naturally and sptube is connected to a drain bag today. He is seeing cancer treatment center in . He is on hormonal therapy with Xtandi and has been receiving bone health injections (Xgeva). We again discussed clearing out his bladder calcifications to help relieve sediment build up; how this procedure is performed, what to expect post operatively, along with risks and benefits of the procedure were reviewed thoroughly during consult. He will be called and scheduled for next available cystolithalopaxy at [facility]. He recently started having sptube changed with HH and will continue this q4wks. He will return post operatively or sooner with any other concerns. Maggy Valente CNA, am scribing for, and in the presence, of Dr. Menjivar. I, Dr. Jong Menjivar, personally performed the services prescribed in this documentation, as scribed by Maggy Monterroso CNA, in my presence, and it is both accurate and complete. 03/02/2024 Urinary retention (ICD-10 - R33.9) PSA of 2.41 corrected to 4.82 with Finasteride on 02/25/24. Recommended that he stop taking Finasteride. He is not voiding naturally and sptube is connected to a drain bag today. He is seeing cancer treatment center in . He is on hormonal therapy with Xtandi and has been receiving bone health injections (Xgeva). We again discussed clearing out his bladder calcifications to help relieve sediment build up; how this procedure is performed, what to expect post operatively, along with risks and benefits of the procedure were reviewed thoroughly during consult. He will be called and scheduled for next available cystolithalopaxy at [facility]. He recently started having sptube changed with HH and will continue this q4wks. He will return post operatively or sooner with any other concerns. Maggy Valente CNA, am scribing for, and in the presence, of Dr. Menjivar. Ambrosio, Dr. Jong Menjivar, personally performed the services prescribed in this documentation, as scribed by Maggy Monterroso CNA, in my presence, and it is both accurate and complete. 10/27/2023 Prostate cancer (ICD-10 - C61) 10/27/2023 Urinary retention (ICD-10 - R33.9) 10/20/2023 Bladder calculus (ICD-10 - N21.0) He is a complicated patient with advanced prostate cancer but nearly 4 months out from channel PVP. He has some necrotic calcifications that he has been passing status post PVP. Overall though he feels that he is voiding well and we will do a capping trial for 1 week and if he does not run into any issues of retention or incontinence or bladder pain we will remove his suprapubic tube. Cystoscopy shows soft calcifications that should gradually pass and related to tissue sloughing from PVP. We have discussed operative drainage if he has any further issues and certainly he will need close surveillance for chronic cystitis. Following cystoscopy, we have spent over 20 minutes in further consultation and treatment planning with greater than 50% of that time in direct [id number] discussion. 10/20/2023 Urinary retention (ICD-10 - R33.9) He is a complicated patient with advanced prostate cancer but nearly 4 months out from channel PVP. He has some necrotic calcifications that he has been passing status post PVP. Overall though he feels that he is voiding well and we will do a capping trial for 1 week and if he does not run into any issues of retention or incontinence or bladder pain we will remove his suprapubic tube. Cystoscopy shows soft calcifications that should gradually pass and related to tissue sloughing from PVP. We have discussed operative drainage if he has any further issues and certainly he will need close surveillance for chronic cystitis. Following cystoscopy, we have spent over 20 minutes in further consultation and treatment planning with greater than 50% of that time in direct [id number] discussion. 10/01/2023 Bladder calculus (ICD-10 - N21.0) 10/01/2023 Abnormal urine finding (ICD-10 - R82.90) 08/18/2024 Prostate cancer (ICD-10 - C61) We discussed previous office visit with Dr. Menjivar where patient was needed to have dilation up to 16 [place] and a 16 [place] suprapubic tube back into the bladder under direct cystoscopic visualization and did have some prostate blockage but otherwise his urethra was patent also with no pathology within the bladder. We will move to every 2 week suprapubic tube changes here at our office. After about 2 months of q 2 week changes, may consider transitioning back to q 3 week SPT changes. If continues to have issues with clogged SPTubes due to sediment, will consider trialing Rinacidin. Continue prostate cancer surveillance as previously scheduled with follow-up in 3 months with MD to review options. Will CC note to cancer treatment facility in . For now, and through shared decision making we are in agreement with no further workup or intervention at this time with care plan, aside from what was mentioned. Patient has no other voiced concerns or questions. Patient satisfied with plan. 08/18/2024 Urinary retention (ICD-10 - R33.9) We discussed previous office visit with Dr. Menjivar where patient was needed to have dilation up to 16 [place]e and a 16 [place]e suprapubic tube back into the bladder under direct cystoscopic visualization and did have some prostate blockage but otherwise his urethra was patent also with no pathology within the bladder. We will move to every 2 week suprapubic tube changes here at our office. After about 2 months of q 2 week changes, may consider transitioning back to q 3 week SPT changes. If continues to have issues with clogged SPTubes due to sediment, will consider trialing Rinacidin. Continue prostate cancer surveillance as previously scheduled with follow-up in 3 months with MD to review options. Will CC note to cancer treatment facility in . For now, and through shared decision making we are in agreement with no further workup or intervention at this time with care plan, aside from what was mentioned. Patient has no other voiced concerns or questions. Patient satisfied with plan. 06/21/2024 Encounter for suprapubic catheter care (ICD-10 - Z43.5) Pt here for routine sptube change. He notes that his catheter has been plugged for 3days and he has been leaking urine through his urethra. He tolerated sptube change well and will return in 3wks for repeat change. 06/21/2024 Urinary retention (ICD-10 - R33.9) Pt here for routine sptube change. He notes that his catheter has been plugged for 3days and he has been leaking urine through his urethra. He tolerated sptube change well and will return in 3wks for repeat change. 09/08/2023 Encounter for attention to cystostomy (ICD-10 - Z43.5) Pt here for routine sptube change. He tolerated well and will return in 4wks for routine change. 08/03/2024 Encounter for suprapubic catheter care (ICD-10 - Z43.5) Pt here for routine sptube change and he tolerated well. He will return in 3wks of repeat change. 09/08/2023 Urinary retention (ICD-10 - R33.9) Pt here for routine sptube change. He tolerated well and will return in 4wks for routine change. 08/18/2024 Metastatic adenocarcinoma to prostate (ICD-10 - C79.82) We discussed previous office visit with Dr. Menjivar where patient was needed to have dilation up to 16 [place] and a 16 [place] suprapubic tube back into the bladder under direct cystoscopic visualization and did have some prostate blockage but otherwise his urethra was patent also with no pathology within the bladder. We will move to every 2 week suprapubic tube changes here at our office. After about 2 months of q 2 week changes, may consider transitioning back to q 3 week SPT changes. If continues to have issues with clogged SPTubes due to sediment, will consider trialing Rinacidin. Continue prostate cancer surveillance as previously scheduled with follow-up in 3 months with MD to review options. Will CC note to cancer treatment facility in [place]. For now, and through shared decision making we are in agreement with no further workup or intervention at this time with care plan, aside from what was mentioned. Patient has no other voiced concerns or questions. Patient satisfied with plan. 08/03/2024 Prostate cancer (ICD-10 - C61) Pt here for routine sptube change and he tolerated well. He will return in 3wks of repeat change. 09/08/2023 Encounter for Dacosta catheter replacement (ICD-10 - Z46.6) Pt here for routine sptube change. He tolerated well and will return in 4wks for routine change. 10/01/2023 Gross hematuria (ICD-10 - R31.0) 10/20/2023 Abnormal urine finding (ICD-10 - R82.90) He is a complicated patient with advanced prostate cancer but nearly 4 months out from channel PVP. He has some necrotic calcifications that he has been passing status post PVP. Overall though he feels that he is voiding well and we will do a capping trial for 1 week and if he does not run into any issues of retention or incontinence or bladder pain we will remove his suprapubic tube. Cystoscopy shows soft calcifications that should gradually pass and related to tissue sloughing from PVP. We have discussed operative drainage if he has any further issues and certainly he will need close surveillance for chronic cystitis. Following cystoscopy, we have spent over 20 minutes in further consultation and treatment planning with greater than 50% of that time in direct pyar-rs-xxlq discussion. 10/27/2023 Metastatic adenocarcinoma to prostate (ICD-10 - C79.82) 03/02/2024 Metastatic adenocarcinoma to prostate (ICD-10 - C79.82) PSA of 2.41 corrected to 4.82 with Finasteride on 02/25/24. Recommended that he stop taking Finasteride. He is not voiding naturally and sptube is connected to a drain bag today. He is seeing cancer treatment center in . He is on hormonal therapy with Xtandi and has been receiving bone health injections (Xgeva). We again discussed clearing out his bladder calcifications to help relieve sediment build up; how this procedure is performed, what to expect post operatively, along with risks and benefits of the procedure were reviewed thoroughly during consult. He will be called and scheduled for next available cystolithalopaxy at [facility]. He recently started having sptube changed with HH and will continue this q4wks. He will return post operatively or sooner with any other concerns. I, Maggy Monterroso CNA, am scribing for, and in the presence, of Dr. Menjivar. I, Dr. Jong Menjivar, personally performed the services prescribed in this documentation, as scribed by Maggy Monterroso CNA, in my presence, and it is both accurate and complete. 04/06/2024 Metastatic adenocarcinoma to prostate (ICD-10 - C79.82) 05/31/2024 Prostate cancer (ICD-10 - C61) He had a clogged SP tube and outside emergency room could only place a 10 [place] suprapubic tube. I was able to remove this and dilate up to 16 [place] and get a 16 [place] suprapubic tube back into the bladder under direct cystoscopic visualization. He did have some prostate blockage but otherwise his urethra was patent also with no pathology within the bladder. We will move to every 3 week suprapubic tube changes here at our office. Continue prostate cancer surveillance as previously scheduled with follow-up in the next few months. Following cystoscopy, we have spent over 10 minutes in further consultation and treatment planning with greater than 50% of that time in direct vldh-yj-bpyx discussion. 05/31/2024 Metastatic adenocarcinoma to prostate (ICD-10 - C79.82) He had a clogged SP tube and outside emergency room could only place a 10 [place] suprapubic tube. I was able to remove this and dilate up to 16 [place] and get a 16 [place] suprapubic tube back into the bladder under direct cystoscopic visualization. He did have some prostate blockage but otherwise his urethra was patent also with no pathology within the bladder. We will move to every 3 week suprapubic tube changes here at our office. Continue prostate cancer surveillance as previously scheduled with follow-up in the next few months. Following cystoscopy, we have spent over 10 minutes in further consultation and treatment planning with greater than 50% of that time in direct wzcc-jo-kmen discussion. 04/06/2024 History of orchiectomy, bilateral (ICD-10 - Z90.79) 03/02/2024 History of orchiectomy, bilateral (ICD-10 - Z90.79) PSA of 2.41 corrected to 4.82 with Finasteride on 02/25/24. Recommended that he stop taking Finasteride. He is not voiding naturally and sptube is connected to a drain bag today. He is seeing cancer treatment center in . He is on hormonal therapy with Xtandi and has been receiving bone health injections (Xgeva). We again discussed clearing out his bladder calcifications to help relieve sediment build up; how this procedure is performed, what to expect post operatively, along with risks and benefits of the procedure were reviewed thoroughly during consult. He will be called and scheduled for next available cystolithalopaxy at [facility]. He recently started having sptube changed with and will continue this q4wks. He will return post operatively or sooner with any other concerns. Maggy Valente CNA, am scribing for, and in the presence, of Dr. Menjivar. I, Dr. Jong Menjivar, personally performed the services prescribed in this documentation, as scribed by Maggy Monterroso CNA, in my presence, and it is both accurate and complete. 10/27/2023 History of orchiectomy, bilateral (ICD-10 - Z90.79) 10/20/2023 Gross hematuria (ICD-10 - R31.0) He is a complicated patient with advanced prostate cancer but nearly 4 months out from channel PVP. He has some necrotic calcifications that he has been passing status post PVP. Overall though he feels that he is voiding well and we will do a capping trial for 1 week and if he does not run into any issues of retention or incontinence or bladder pain we will remove his suprapubic tube. Cystoscopy shows soft calcifications that should gradually pass and related to tissue sloughing from PVP. We have discussed operative drainage if he has any further issues and certainly he will need close surveillance for chronic cystitis. Following cystoscopy, we have spent over 20 minutes in further consultation and treatment planning with greater than 50% of that time in direct tyxr-de-jmkt discussion. 10/01/2023 Suprapubic catheter (ICD-10 - Z93.59) 08/18/2024 History of orchiectomy, bilateral (ICD-10 - Z90.79) We discussed previous office visit with Dr. Menjivar where patient was needed to have dilation up to 16 [place] and a 16 [place] suprapubic tube back into the bladder under direct cystoscopic visualization and did have some prostate blockage but otherwise his urethra was patent also with no pathology within the bladder. We will move to every 2 week suprapubic tube changes here at our office. After about 2 months of q 2 week changes, may consider transitioning back to q 3 week SPT changes. If continues to have issues with clogged SPTubes due to sediment, will consider trialing Rinacidin. Continue prostate cancer surveillance as previously scheduled with follow-up in 3 months with MD to review options. Will CC note to cancer treatment facility in [place]. For now, and through shared decision making we are in agreement with no further workup or intervention at this time with care plan, aside from what was mentioned. Patient has no other voiced concerns or questions. Patient satisfied with plan. 08/18/2024 S/P radiation therapy (ICD-10 - Z92.3) We discussed previous office visit with Dr. Menjivar where patient was needed to have dilation up to 16 [place] and a 16 [place] suprapubic tube back into the bladder under direct cystoscopic visualization and did have some prostate blockage but otherwise his urethra was patent also with no pathology within the bladder. We will move to every 2 week suprapubic tube changes here at our office. After about 2 months of q 2 week changes, may consider transitioning back to q 3 week SPT changes. If continues to have issues with clogged SPTubes due to sediment, will consider trialing Rinacidin. Continue prostate cancer surveillance as previously scheduled with follow-up in 3 months with MD to review options. Will CC note to cancer treatment facility in [place]. For now, and through shared decision making we are in agreement with no further workup or intervention at this time with care plan, aside from what was mentioned. Patient has no other voiced concerns or questions. Patient satisfied with plan. 10/01/2023 Urinary retention (ICD-10 - R33.9) 10/20/2023 Suprapubic catheter (ICD-10 - Z93.59) He is a complicated patient with advanced prostate cancer but nearly 4 months out from channel PVP. He has some necrotic calcifications that he has been passing status post PVP. Overall though he feels that he is voiding well and we will do a capping trial for 1 week and if he does not run into any issues of retention or incontinence or bladder pain we will remove his suprapubic tube. Cystoscopy shows soft calcifications that should gradually pass and related to tissue sloughing from PVP. We have discussed operative drainage if he has any further issues and certainly he will need close surveillance for chronic cystitis. Following cystoscopy, we have spent over 20 minutes in further consultation and treatment planning with greater than 50% of that time in direct qcnv-hb-muhm discussion. 10/27/2023 S/P radiation therapy (ICD-10 - Z92.3) 05/31/2024 History of orchiectomy, bilateral (ICD-10 - Z90.79) He had a clogged SP tube and outside emergency room could only place a 10 [place]e suprapubic tube. I was able to remove this and dilate up to 16 [place]e and get a 16 [place] suprapubic tube back into the bladder under direct cystoscopic visualization. He did have some prostate blockage but otherwise his urethra was patent also with no pathology within the bladder. We will move to every 3 week suprapubic tube changes here at our office. Continue prostate cancer surveillance as previously scheduled with follow-up in the next few months. Following cystoscopy, we have spent over 10 minutes in further consultation and treatment planning with greater than 50% of that time in direct wslz-jm-agyd discussion. 04/06/2024 S/P radiation therapy (ICD-10 - Z92.3) 03/02/2024 S/P radiation therapy (ICD-10 - Z92.3) PSA of 2.41 corrected to 4.82 with Finasteride on 02/25/24. Recommended that he stop taking Finasteride. He is not voiding naturally and sptube is connected to a drain bag today. He is seeing cancer treatment center in . He is on hormonal therapy with Xtandi and has been receiving bone health injections (Xgeva). We again discussed clearing out his bladder calcifications to help relieve sediment build up; how this procedure is performed, what to expect post operatively, along with risks and benefits of the procedure were reviewed thoroughly during consult. He will be called and scheduled for next available cystolithalopaxy at [facility]. He recently started having sptube changed with and will continue this q4wks. He will return post operatively or sooner with any other concerns. I, Maggy Monterroso CNA, am scribing for, and in the presence, of Dr. Menjivar. I, Dr. Jong Menjivar, personally performed the services prescribed in this documentation, as scribed by Maggy Monterroso CNA, in my presence, and it is both accurate and complete. 05/31/2024 S/P radiation therapy (ICD-10 - Z92.3) He had a clogged SP tube and outside emergency room could only place a 10 [place] suprapubic tube. I was able to remove this and dilate up to 16 [place] and get a 16 [place] suprapubic tube back into the bladder under direct cystoscopic visualization. He did have some prostate blockage but otherwise his urethra was patent also with no pathology within the bladder. We will move to every 3 week suprapubic tube changes here at our office. Continue prostate cancer surveillance as previously scheduled with follow-up in the next few months. Following cystoscopy, we have spent over 10 minutes in further consultation and treatment planning with greater than 50% of that time in direct paow-vt-fvxq discussion. 03/02/2024 Encounter for attention to cystostomy (ICD-10 - Z43.5) PSA of 2.41 corrected to 4.82 with Finasteride on 02/25/24. Recommended that he stop taking Finasteride. He is not voiding naturally and sptube is connected to a drain bag today. He is seeing cancer treatment center in . He is on hormonal therapy with Xtandi and has been receiving bone health injections (Xgeva). We again discussed clearing out his bladder calcifications to help relieve sediment build up; how this procedure is performed, what to expect post operatively, along with risks and benefits of the procedure were reviewed thoroughly during consult. He will be called and scheduled for next available cystolithalopaxy at [facility]. He recently started having sptube changed with HH and will continue this q4wks. He will return post operatively or sooner with any other concerns. I, Maggy Monterroso CNA, am scribing for, and in the presence, of Dr. Menjivar. I, Dr. Jong Menjivar, personally performed the services prescribed in this documentation, as scribed by Maggy Monterroso CNA, in my presence, and it is both accurate and complete. 10/27/2023 Encounter for attention to cystostomy (ICD-10 - Z43.5) 10/01/2023 Prostate cancer (ICD-10 - C61) 10/20/2023 Prostate cancer (ICD-10 - C61) He is a complicated patient with advanced prostate cancer but nearly 4 months out from channel PVP. He has some necrotic calcifications that he has been passing status post PVP. Overall though he feels that he is voiding well and we will do a capping trial for 1 week and if he does not run into any issues of retention or incontinence or bladder pain we will remove his suprapubic tube. Cystoscopy shows soft calcifications that should gradually pass and related to tissue sloughing from PVP. We have discussed operative drainage if he has any further issues and certainly he will need close surveillance for chronic cystitis. Following cystoscopy, we have spent over 20 minutes in further consultation and treatment planning with greater than 50% of that time in direct ehuj-vy-sxim discussion. 08/18/2024 Encounter for attention to cystostomy (ICD-10 - Z43.5) We discussed previous office visit with Dr. Menjivar where patient was needed to have dilation up to 16 [place] and a 16 [place] suprapubic tube back into the bladder under direct cystoscopic visualization and did have some prostate blockage but otherwise his urethra was patent also with no pathology within the bladder. We will move to every 2 week suprapubic tube changes here at our office. After about 2 months of q 2 week changes, may consider transitioning back to q 3 week SPT changes. If continues to have issues with clogged SPTubes due to sediment, will consider trialing Rinacidin. Continue prostate cancer surveillance as previously scheduled with follow-up in 3 months with MD to review options. Will CC note to cancer treatment facility in [place]. For now, and through shared decision making we are in agreement with no further workup or intervention at this time with care plan, aside from what was mentioned. Patient has no other voiced concerns or questions. Patient satisfied with plan. 10/20/2023 Metastatic adenocarcinoma to prostate (ICD-10 - C79.82) He is a complicated patient with advanced prostate cancer but nearly 4 months out from channel PVP. He has some necrotic calcifications that he has been passing status post PVP. Overall though he feels that he is voiding well and we will do a capping trial for 1 week and if he does not run into any issues of retention or incontinence or bladder pain we will remove his suprapubic tube. Cystoscopy shows soft calcifications that should gradually pass and related to tissue sloughing from PVP. We have discussed operative drainage if he has any further issues and certainly he will need close surveillance for chronic cystitis. Following cystoscopy, we have spent over 20 minutes in further consultation and treatment planning with greater than 50% of that time in direct opls-nw-gvhd discussion. 10/01/2023 Metastatic adenocarcinoma to prostate (ICD-10 - C79.82) 10/01/2023 History of orchiectomy, bilateral (ICD-10 - Z90.79) 10/20/2023 History of orchiectomy, bilateral (ICD-10 - Z90.79) He is a complicated patient with advanced prostate cancer but nearly 4 months out from channel PVP. He has some necrotic calcifications that he has been passing status post PVP. Overall though he feels that he is voiding well and we will do a capping trial for 1 week and if he does not run into any issues of retention or incontinence or bladder pain we will remove his suprapubic tube. Cystoscopy shows soft calcifications that should gradually pass and related to tissue sloughing from PVP. We have discussed operative drainage if he has any further issues and certainly he will need close surveillance for chronic cystitis. Following cystoscopy, we have spent over 20 minutes in further consultation and treatment planning with greater than 50% of that time in direct qejs-xe-cjgc discussion. 10/20/2023 S/P radiation therapy (ICD-10 - Z92.3) He is a complicated patient with advanced prostate cancer but nearly 4 months out from channel PVP. He has some necrotic calcifications that he has been passing status post PVP. Overall though he feels that he is voiding well and we will do a capping trial for 1 week and if he does not run into any issues of retention or incontinence or bladder pain we will remove his suprapubic tube. Cystoscopy shows soft calcifications that should gradually pass and related to tissue sloughing from PVP. We have discussed operative drainage if he has any further issues and certainly he will need close surveillance for chronic cystitis. Following cystoscopy, we have spent over 20 minutes in further consultation and treatment planning with greater than 50% of that time in direct rmwi-ax-wwif discussion. 10/01/2023 S/P radiation therapy (ICD-10 - Z92.3) 10/01/2023 Encounter for attention to cystostomy (ICD-10 - Z43.5) 10/20/2023 Encounter for attention to cystostomy (ICD-10 - Z43.5) He is a complicated patient with advanced prostate cancer but nearly 4 months out from channel PVP. He has some necrotic calcifications that he has been passing status post PVP. Overall though he feels that he is voiding well and we will do a capping trial for 1 week and if he does not run into any issues of retention or incontinence or bladder pain we will remove his suprapubic tube. Cystoscopy shows soft calcifications that should gradually pass and related to tissue sloughing from PVP. We have discussed operative drainage if he has any further issues and certainly he will need close surveillance for chronic cystitis. Following cystoscopy, we have spent over 20 minutes in further consultation and treatment planning with greater than 50% of that time in direct qqae-fe-elpp discussion. 10/20/2023 Complicated UTI (urinary tract infection) (ICD-10 - N39.0) He is a complicated patient with advanced prostate cancer but nearly 4 months out from channel PVP. He has some necrotic calcifications that he has been passing status post PVP. Overall though he feels that he is voiding well and we will do a capping trial for 1 week and if he does not run into any issues of retention or incontinence or bladder pain we will remove his suprapubic tube. Cystoscopy shows soft calcifications that should gradually pass and related to tissue sloughing from PVP. We have discussed operative drainage if he has any further issues and certainly he will need close surveillance for chronic cystitis. Following cystoscopy, we have spent over 20 minutes in further consultation and treatment planning with greater than 50% of that time in direct ieyg-oh-ymzi discussion. 10/01/2023 Other Imaging reviewe d with Dr. Menjivar, recommends sterilizing urine and having patient RTC for cysto. SP tube changed today, he is wondering about removal. They can discuss further at next visit. I will send urine for PCR, call with results and treat as indicated. RTC on 10/20/23 as scheduled, but we will change to cystoscopy. All questions that were asked were answered. Patient satisfied with plan of care. 10/27/[address] Menjivar. Offered to take patient back for cystoscopy in the OR with possibly cystolitholapaxy . He defers. States Dr. Jewell is about to start him on a new chemo drug. He would liek to continue with the SP tube. He is clamping intermittently if out in public, and draining every 3-4 hours. He connects to drainage bag at home and QHS. Change SP tube today. He will RTC monthly for SP tube changes. He will RTC for follow up in [address] Menjivar with PSA. All questions that were asked were answered. Patient satisfied with plan of care. 04/06/2024 Other No need for SP tube change today. We have discussed the importance of proper hygiene and care or SP tube drainage bag to prevent complications. His was educated by home health how to irrigate SP tube as needed. Recommend that she do this with 30-40cc once a week to keep patent and reiterated they are only to use sterile irrigant. If problems persist, we can change tube frequency to every 2-3 weeks. He will RTC in [address] Menjivar, or PRN sooner. Plan Of Treatment Pending Test Test Name Order Date Chest X-ray PA and lateral [id number] Electrocardiogram (EKG) 06/17/2023 PSA, TOTAL ([id number]) 08/18/2024 Future Test Test Name Order Date PSA, TOTAL ([id number]) 01/10/2024 Next Appt Details Provider Name:JONG Simons, 09/01/2024 10:00:00 AM, [address] [place], [address], Provider Name:JONG Simons, 11/30/2024 10:15:00 AM, [address] [place], [address], Insurance Providers Payer Name Payer Address Payer Phone Subscriber Number Group Number Insured Name Patient Relationship to Insured Coverage Start Date Coverage End Date [facility] Medicare Advantage PPO [address] [address] [place], [place] [id number] [facility] [id number] [place], [place] Self - patient is the insured [place] Medicaid [address] [place], [place] [id number] [place], ANNAMARIA Self - patient is the insured Medical (General) History Medical History History ICD Code Pneumonia Arthritis Bladder infections Diabetes prostate cancer Hernia Hernia Back Trouble High Blood Pressure Hematuria COPD LUTS bone cancer Surgical History Surgery Date(Month/Year) Left Knee Replacement 02/2004 Right Knee Replacement 09/2012 Orchiectomy 04/2017 Back Surgery 02/2020 Hospitalization History Reason Date(Month/Year) See Prior sx hx
--- NOTE | 2024-08-26 03:40 | XRR_ITS ---
PROCEDURE INFORMATION: Exam: XR Abdomen Exam date and time: 08/26/2024 3:43 AM Age: 79 years old Clinical indication: Constipation TECHNIQUE: Imaging protocol: Radiologic exam of the abdomen. Views: Frontal supine view of the abdomen. 1 View. COMPARISON: CT abdomen pelvis w con* [id number] 04/24/2024 1:26 PM FINDINGS: Gastrointestinal tract: No dilated loops of large or small bowel is appreciated. There is a moderate amount of stool within the colon. Organs: Calcification within the left midabdomen may be related to the left kidney. No pathologic calcifications are otherwise noted. Bones/joints: Unremarkable. XR/XR KUB [id number] IMPRESSION: 1. Fecal stasis. 2. Nephrolithiasis on the left.
[2024-08-26 03:51] VITALS: BP 152/95; PULSE 72; O2SAT 91
[2024-08-26] MEDS: Fleet Enema 133 mL Enema PR (03:53)
[2024-08-26 05:00] VITALS: BP 146/87; PULSE 88; O2SAT 92
--- NOTE | 2024-08-26 05:11 | W.ED.ABDPA2 ---
HPI - Abdominal Pain General: Chief Complaint: Abdominal Pain Stated Complaint: Constipation Time Seen by Provider: 08/26/24 03:30 History of Present Illness: 79-year-old man presents with constipation, reporting no bowel movement for at least five days, possibly longer. He describes a persistent urge to defecate without passage of stool and notes hard stool when he strains. Over the last 24 hours he self-administered two bottles of magnesium citrate and one suppository without relief; suppositories have been used daily for the preceding three days. He routinely takes stool softeners and Miralax each morning and states this episode is worse than prior brief delays. He attempted to vomit earlier; nausea improved after a single antiemetic tablet given in the ED. Denies abdominal pain discussion but agrees to imaging and further interventions. Related Data Home Medications ?Medication ?Instructions ?Recorded ?Confirmed aspirin 81 mg tablet,delayed 81 mg PO DAILY 03/29/19 08/23/24 release mv-mn-folic 200 mcg-vit K 15 1 cap PO DAILY 04/09/23 08/23/24 mcg-lutein 5 mg-zeaxanthin 1 mg capsule (PreserVision AREDS 2 Plus Multivit) loratadine 10 mg tablet (Claritin) 10 mg PO QPM 07/31/23 08/23/24 budesonide 0.5 mg/2 mL suspension 0.5 mg inhalation BID 01/17/24 08/23/24 for nebulization lorazepam 1 mg tablet 1 mg PO DAILY PRN Anxiety 02/01/24 08/23/24 calcium 250 mg-magnesium 40 mg-D3 1 tab PO DAILY 02/25/24 08/23/24 125 unit-zinc [id number] tablet acetaminophen 500 mg tablet 1,000 mg PO QID PRN Fever Or Pain 04/24/24 08/23/24 (Tylenol Extra Strength) lactobacillus comb no.10 20 20,000 mmu cells PO DAILY 04/24/24 08/23/24 billion cell capsule (Probiotic) triamcinolone acetonide 55 mcg 2 spray intranasal DAILY 05/18/24 08/23/24 nasal spray aerosol azelastine 137 mcg (0.1 %) nasal 2 spray intranasal BID 05/20/24 08/23/24 spray carbamazepine 100 mg 100 mg PO BID 05/20/24 08/23/24 tablet,extended release,12 hr metoprolol succinate 25 mg 12.5 mg PO QAM 05/20/24 08/23/24 tablet,extended release 24 hr Previous Rx's ?Medication ?Instructions ?Recorded nitroglycerin 0.4 mg sublingual 0.4 mg sublingual Q5M PRN Chest 07/21/22 tablet (Nitrostat) Pain #30 tabs Walker #1 ea 07/28/22 catheter bags #4 ea 10/08/23 fluticasone fur. 100 mcg-umeclid 1 ea inhalation DAILY #60 ea 10/13/23 62.5 mcg-vilant 25 mcg inhalat.powder (Trelegy Ellipta) ipratropium 0.5 mg-albuterol 3 mg 3 ml inhalation Q6H PRN wheezing 11/06/23 (2.5 mg base)/3 mL nebulization #90 mL soln nebulizer with tubing #1 ea 11/06/23 polyethylene glycol 3350 17 gram 17 g PO DAILY #30 ea 01/18/24 oral powder packet (Miralax) docusate sodium 100 mg capsule 100 mg PO DAILY PRN constipation 01/29/24 #60 caps tamsulosin 0.4 mg capsule 0.4 mg PO QPM #90 caps 04/05/24 glycerin (adult) 1 supp LA DAILY PRN constipation 04/24/24 #12 ea cholecalciferol (vitamin D3) 50 50 mcg PO DAILY #90 caps 04/26/24 mcg (2,000 unit) capsule ondansetron HCl 8 mg tablet 8 mg PO Q8H PRN Nausea And 06/13/24 Vomiting #60 tabs morphine 30 mg immediate release 30 mg PO Q6H PRN pain 22 days #90 07/12/24 tablet tabs rosuvastatin 40 mg tablet 40 mg PO BEDTIME #90 tabs 07/12/24 levothyroxine 175 mcg tablet See Rx Instructions .Route 07/19/24 .COMPLEX #90 tabs apixaban 5 mg tablet (Eliquis) 5 mg PO BID #90 tabs 07/21/24 famotidine 40 mg tablet 40 mg PO BID #180 tabs 07/21/24 metoclopramide HCl 5 mg tablet 5 mg PO TID #270 tabs 07/21/24 montelukast 10 mg tablet 10 mg PO DAILY #90 tabs 07/21/24 sitagliptin phosphate 100 mg 100 mg PO QAM #90 tabs 07/21/24 tablet (Januvia) trazodone 100 mg tablet 100 mg PO QPM #90 tabs 07/21/24 prednisone 5 mg tablet 5 mg PO BID #60 tabs 08/08/24 enzalutamide 80 mg tablet (Xtandi) 80 mg PO DAILY #30 tabs 08/24/24 Allergies Allergy/AdvReac Type Severity Reaction Status Date / Time vancomycin Allergy HIVES,RASH Verified 08/23/24 09:04 PFSH ED PFSH: Medical History (Updated 08/26/24 @ 04:56 by Zander Inman MD) Viral URI with cough Hospital discharge follow-up Papillary thyroid carcinoma Suprapubic catheter Prostate cancer metastatic to bone Deep vein thrombosis (DVT) of left lower extremity Nausea & vomiting Weight loss Lower urinary tract symptoms (LUTS) Cancer related pain Urinary tract infection Right kidney mass Burning sensation of feet Lumbar stenosis with neurogenic claudication Intervertebral disc disorder with radiculopathy of lumbosacral region Metastasis to bone Dyslipidemia History of diverticulitis Type 2 diabetes mellitus, without long-term current use of insulin Benign essential HTN Post-surgical hypothyroidism Insomnia GERD (gastroesophageal reflux disease) COPD (chronic obstructive pulmonary disease) 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 Prostate cancer History of thyroid cancer Surgical History (Updated 08/23/24 @ 09:12 by Joann Knowles DO) History of bladder surgery History of prostate surgery H/O transurethral resection of prostate History of cystostomy S/P cystourethroscopy with dilation of urethral stricture History of lumbar discectomy History of colonoscopy (07/12/19) diverticulosis, repeat 10 years History of orchiectomy, bilateral H/O total knee replacement BILATERAL H/O hernia repair History of hemorrhoidectomy History of uvulectomy History of thyroidectomy, subtotal Family History Mother , in her 90's Cancer Diabetes Sister Diabetes Father , in his 70's No problems noted. Other CAD (coronary artery disease) Social History Smoking and tobacco/nicotine status: former use of tobacco/nicotine Quit status (tobacco/nicotine): has quit using Year quit tobacco: 2022 Former quit date comment: stopped in February of this year Alcohol intake: never Substance/Drug Use: never Lives independently: Yes Household members: spouse Marital status: Current occupational status: retired Physical Exam Const: COMMON NORMALS: no acute distress, patient oriented x3 and alert HENMT: COMMON NORMALS: normocephalic and atraumatic HEAD & SCALP: normocephalic and atraumatic Eye: COMMON NORMALS: Equal, round and reactive pupils present, EOMs intact bilaterally and no scleral icterus PUPIL: Yes Equal, round and reactive pupils present Resp: COMMON NORMALS: normal respiratory effort and No retractions Cardio: COMMON NORMALS: regular rate, regular rhythm and No murmurs present (Cardio) RATE: regular rate RHYTHM: regular rhythm GI: COMMON NORMALS: Normal to inspection, nondistended, normoactive bowel sounds present, Soft to palpation and non-tender PALPATION: Yes Soft to palpation OTHER: Abdomen soft and nonperitoneal. Mild left lower quadrant tenderness. : OTHER: [place] catheter in place Neuro: COMMON NORMALS: patient oriented x3 SENSORIUM/ORIENTATION: Yes alert Skin: COMMON NORMALS: no rashes or lesions noted GENERAL SKIN EXAM: no rashes or lesions noted Course Vital Signs: Vital signs: Vital Signs Temperature 97.8 F 08/26/24 03:26 Pulse Rate 72 08/26/24 03:51 Respiratory Rate 18 08/26/24 03:26 Blood Pressure 152/95 08/26/24 03:51 Pulse Oximetry 91 08/26/24 03:51 Oxygen Delivery Me thod Room Air 08/26/24 03:51 MDM - Abdominal Pain Medical Decision Making KUB shows moderate stool retained throughout the colon but no obstructive process. After fluids, patient was able to pass significant amounts of stool. We discussed that MiraLAX is preferable to mag citrate as his stool is firm and will pass more easily if it is made soft. He shows understanding and will be discharged in stable condition All radiology interpretation(s) finalized by discharge Discharge Plan Discharge Patient Disposition: Home Clinical Impression: Constipation Condition: Stable Prescriptions: No Action aspirin 81 mg tablet,delayed release (DR/EC) 81 mg PO DAILY (DME) nebulizer with tubing See Rx Instructions .Route .MEDSUPPLY Qty: 1 0RF Rx Instructions: As directed ipratropium-albuterol 0.5 mg-3 mg(2.5 mg base)/3 mL solution for nebulization 3 ml inhalation Q6H PRN (Reason: wheezing) Qty: 90 0RF docusate sodium 100 mg capsule 100 mg PO DAILY PRN (Reason: constipation) Qty: 60 0RF lorazepam 1 mg tablet 1 mg PO DAILY PRN (Reason: Anxiety) triamcinolone acetonide 55 mcg aerosol,spray 2 spray intranasal DAILY Rx Instructions: administer into each nostril montelukast 10 mg tablet 10 mg PO DAILY Qty: 90 1RF Januvia 100 mg tablet 100 mg PO QAM Qty: 90 1RF trazodone 100 mg tablet 100 mg PO QPM Qty: 90 1RF metoclopramide HCl 5 mg tablet 5 mg PO TID Qty: 270 1RF Eliquis 5 mg tablet 5 mg PO BID Qty: 90 1RF famotidine 40 mg tablet 40 mg PO BID Qty: 180 1RF (DME) Walker See Rx Instructions .ROUTE .MEDSUPPLY Qty: 1 0RF Rx Instructions: As directed PreserVision AREDS 2 Plus MV 200 mcg-15 mcg- 5 mg-1 mg capsule 1 cap PO DAILY Trelegy Ellipta 100-62.5-25 mcg blister with device 1 ea INHALATION DAILY Qty: 60 5RF (DME) catheter bags See Rx Instructions .Route .MEDSUPPLY Qty: 4 5RF Rx Instructions: As directed calcium fuj-afh-Q5-Zn-copy lathe tender-khadar 250 mg-40 mg- 125 unit-3.75mg tablet 1 tab PO DAILY nitroglycerin [Nitrostat] 0.4 mg tablet, sublingual 0.4 mg SUBLINGUAL Q5M PRN (Reason: Chest Pain) Qty: 30 1RF tamsulosin 0.4 mg capsule 0.4 mg PO QPM Qty: 90 1RF cholecalciferol (vitamin D3) 50 mcg (2,000 unit) capsule 50 mcg PO DAILY Qty: 90 1RF ondansetron HCl 8 mg tablet 8 mg PO Q8H PRN (Reason: Nausea And Vomiting) Qty: 60 0RF morphine 30 mg tablet 30 mg PO Q6H PRN (Reason: pain) 22 Days Qty: 90 0RF rosuvastatin 40 mg tablet 40 mg PO BEDTIME Qty: 90 1RF levothyroxine 175 mcg tablet See Rx Instructions .ROUTE .COMPLEX Qty: 90 1RF Dose Instruction: TAKE 1 TABLET BY MOUTH EVERY DAY thursday through thursday. take 1/2 tablet BY MOUTH ON thursday, SKIP thursday Rx Instructions: TAKE 1 TABLET BY MOUTH EVERY DAY thursday through thursday. take 1/2 tablet BY MOUTH ON thursday, SKIP thursday prednisone 5 mg tablet 5 mg PO BID Qty: 60 0RF Xtandi 80 mg tablet 80 mg PO DAILY Qty: 30 0RF budesonide 0.5 mg/2 mL suspension for nebulization 0.5 mg inhalation BID polyethylene glycol 3350 [Miralax] 17 gram powder in packet 17 g PO DAILY Qty: 30 0RF loratadine [Claritin] 10 mg Tablet 10 mg PO QPM acetaminophen [Tylenol Extra Strength] 500 mg Tablet 1,000 mg PO QID PRN (Reason: Fever Or Pain) Probiotic 20 billion cell Capsule 20,000 mmu cells PO DAILY Rx Instructions: administer with a meal glycerin (adult) Suppository 1 supp LA DAILY PRN (Reason: constipation) Qty: 12 0RF metoprolol succinate 25 mg tablet extended release 24 hr 12.5 mg PO QAM azelastine 137 mcg (0.1 %) spray,non-aerosol 2 spray INTRANASAL BID carbamazepine 100 mg tablet extended release 12 hr 100 mg PO BID Discharge Orders: Discharge ED (Routine); Ordered 08/26/24 Ordered By: Zander nIman Referrals: Joann Knowles DO [Primary Care Provider, Family Practice] Patient Instructions: Constipation (ED), Patient Portal & Dionte Instructions Activity Restrictions/Additional Instructions: Magnesium citrate is a very powerful drug but oftentimes is not useful if stool is not soft first. In order to soften your stool, please take sequential doses of MiraLAX until you are able to pass stool. This is similar to when you have a colonoscopy and have to have all the stool removed from your colon and they have you drink 2 big jugs of GoLytely. GoLytely and MiraLAX have the same active ingredient. 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
== END 2024-08-26 05:11 | disposition home or self-care (01) ==
PROVIDERS: Emergency Provider Student in an Organized Health Care Education/Training Program; PCP Family Medicine
DX: K59.00 Constipation, unspecified (principal); Z79.82 Long term (current) use of aspirin; Z79.01 Long term (current) use of anticoagulants; J44.9 Chronic obstructive pulmonary disease, unspecified; E11.9 Type 2 diabetes mellitus without complications; Z85.46 Personal history of malignant neoplasm of prostate; Z85.850 Personal history of malignant neoplasm of thyroid
CPT/HCPCS: 74018; 99283; J9999

== ENCOUNTER → 2024-09-09 16:47 | Outpatient (BNVA) | payer OTHER, MEDICAID, SELFPAY | PROVIDERS: PCP Family Medicine; Visit Provider Emergency Medicine | DX: Z20.822 Contact with and (suspected) exposure to COVID-19 (principal) | CPT/HCPCS: 87426 ==

== ENCOUNTER 2024-09-19 14:41 | Emergency (ER) | payer OTHER, MEDICAID, SELFPAY ==
--- OUTSIDE RECORDS SUMMARY | 2024-09-15 05:00 | XMS_ITS ---
Author Organization [facility], [facility] Address [address] [place] [address] Care Team Providers Care Obiee Report Developer Name Role Phone Katelin WYATT, Jose Primary Care Provider Unavailab LYDIA Malave Unavailable [phone] Jong Hercules Unavailable [phone] Allergies Allergen (clinical drug ingredient) Drug/Non Drug Allergy documented on EMR Reaction Allergy Type Onset Date Status vancomycin Vancomycin hives Drug Allergy Activ e Results Component Value Reference Range Notes UBASE - Urinary Tract Infect ion (HTRx) Reviewed date:09/19/2024 08:54:48 AM Interpretation: Performing Lab:, [facility] at [address], Phone - [phone], Director - [phone] Notes/Report: CTX-M1 (15), M2 (2), M9 (9), M8/25 Groups 21.684 23.000 - 32.658 ppm CTX-M1 (15), M2 (2), M9 (9), M8/25 Groups Detected 23.000 - 32.658 ppm dfr (A1, A5), sul (1,2) 22.365 23.000 - 27.000 p pm dfr (A1, A5), sul (1,2) Detected 23.000 - 27.000 p pm SHV, KPC Groups 18.021 23.000 - 31.546 ppm SHV, KPC Groups Detected 23.000 - 31.546 ppm tet B, tet M 16.815 23.000 - 27.500 ppm tet B, tet M Detected 23.000 - 27.500 ppm Acinetobacter baumannii 0 19.961 - 24.689 p pm Acinetobacter baumannii Not Detected 19.961 - 24.689 p pm Citrobacter freundii 0 23.000 - 32.015 ppm Citrobacter freundii Not Detected 23.000 - 32.015 ppm Enterobacter aerogenes, cloacae 0 23.000 - 32.290 ppm Enterobacter aerogenes, cloacae Not Detected 23.000 - 32.290 ppm Enterococcus faecalis, faecium 0 26.000 - 3 3.043 ppm Enterococcus faecalis, faecium Not Detected 26.000 - 3 3.043 ppm Escherichia coli 0 23.000 - 28.500 ppm Escherichia coli Not Detected 23.000 - 28.500 ppm Klebsiella pneumoniae, oxytoca 18.224 23.000 - 3 1.865 ppm Klebsiella pneumoniae, oxytoca Detected 23.000 - 3 1.865 ppm Morganella morganii 23.061 19.961 - 24.689 ppm Morganella morganii Detected 19.961 - 24.689 ppm Proteus mirabilis, vulgaris 0 23.000 - 28.5 00 ppm Proteus mirabilis, vulgaris Not Detected 23.000 - 28.5 00 ppm Pseudomonas aeruginosa 0 23.000 - 31.801 pp m Pseudomonas aeruginosa Not Detected 23.000 - 31.801 pp m Staphylococcus aureus 0 26.000 - 31.595 ppm Staphylococcus aureus Not Detected 26.000 - 31.595 ppm Streptococcus agalactiae (Group B Strep) 0 26.000 - 32.435 ppm Streptococcus agalactiae (Group B Strep) Not Detected 26.000 - 32.435 ppm Mai albicans, parapsilosis, tropicalis 0 23.000 - 30.347 ppm Mai albicans, parapsilosis, tropicalis Not Detecte d 23.000 - 30.347 ppm Mai glabrata (Nakaseomyces glabratus) 0 23.000 - 31.618 ppm Mai glabrata (Nakaseomyces glabratus) Not Detected 23.000 - 31.618 ppm Mai krusei (Pichia kudriavzevii) 0 23.0 00 - 30.873 ppm Mai krusei (Pichia kudriavzevii) Not Detected 23.0 00 - 30.873 ppm Serratia marcescens 0 23.000 - 31.581 ppm Serratia marcescens Not Detected 23.000 - 31.581 ppm Streptococcus pyogenes (Group A strep) 0 19 .961 - 24.689 ppm Streptococcus pyogenes (Group A strep) Not Detected 19 .961 - 24.689 ppm Staphylococcus saprophyticus 0 19.961 - 24. 689 ppm Staphylococcus saprophyticus Not Detected 19.961 - 24. 689 ppm Staphylococcus epidermidis, haemolyticus, lugdunensis 0 19.961 - 24.689 ppm Staphylococcus epidermidis, haemolyticus, lugdunensis Not Detected 19.961 - 24.689 ppm REASON FOR VISIT 2 wk SP tube change Medications Medication SIG (Take, Route, Frequency, Duration) Notes Start Date End Date Status carBAMazepine ER 100 MG 1 tablet Orally Twice a day Not-Taking Alfuzosin HCl Not-Sherif stanley Abiraterone Acetate 500 MG 2 tablets Orally Once a day Not-Taking Zoladex 10.8 MG as directed Subcutaneous Not-Taking Cetirizine HCl 10 MG 1 tablet Orally Onc e a day Not-Taking Flonase Not-Taking Ondansetron HCl 4 MG 1 tablet Orally Onc e a day Not-Taking Promethazine HCl 6.25 MG/5ML 10 mL as needed Orally every 6 hrs Not-Taking Triamcinolone (oint)-Silicone Not-Taking Mupirocin 2 % 1 application Externally Twice a day Not-Taking Meclizine HCl Not-Sherif stanley levoFLOXacin 500 MG 1 tablet Orally Once a day Not-Taking Albuterol Not-Taking Esomeprazole Magnesium 40 MG 1 capsule Orally Once a day Not-Taking predniSONE 5 MG 1 tablet Orally Once a day Not-Taking glipiZIDE 2.5 MG 1 tablet 30 minutes before breakfast Orally Once a day Not-Taking Finasteride 5 MG 1 tablet Orally Once a day; Duration: 90 days 05/17/2024 05/12/2025 Not-Taking Fluconazole 100 MG 1 tablet Orally Not-Taking Metoprolol Succinate ER 25 MG 1 tablet Orally Once a day Not-Taking Prochlorperazine Not -Taking PreserVision AREDS 2 Active Famotidine 20 MG 1 tablet at bedtime as needed Orally twice a day 40mg Active predniSONE Not-Dawitin g Nasal Shanks Not-Charis ng Aspirin 81 81 MG 1 tablet Orally Once a day Active Januvia 100 MG 1 tablet Orally Once a day Active Eliquis 5 MG 1 tablet Orally Twic e a day Active Montelukast Sodium 10 MG 1 tablet Orally Once a day Active Metoclopramide HCl 5 MG 1 tablet before meals Orally Twice a day Active Levothyroxine Sodium 175 MCG 1 tablet in the morning on an empty stomach Orally Once a day Active LORazepam 2 MG/ML 1 mL as needed Orall y Twice a day Active Xgeva 120 MG/1.7ML as directed Subcutaneous Active Nitroglycerin Active Rosuvastatin Calcium 40 MG 1 tablet Orally Once a day Active Probiotic Active Tylenol Active Claritin Active Morphine Sulfate 15 MG 1 tablet as needed Orally every 6 hrs As needed Active traZODone HCl 50 MG 1 tablet at bedtime as needed Orally Once a day Active Ondansetron 8 MG 1 tablet on the tongue and allow to dissolve as needed Orally Once a day Active Calcium Active Ipratropium Independence Active Xtandi Active Tamsulosin HCl 0.4 MG 1 capsule Orally O nce a day Active Vitamin D Active Vitamin D3 Active Triamcinolone Acet & Anesth Active Trelegy Ellipta 100-62.5-25 MCG/ACT 1 puff Inhalation Once a day Active Social History Tobacco Use: Social History Observation Description Date Details (start date - stop date) Former Smoker NA - NA Tobacco Control (Standard) Question Answer Notes Tobacco use: Former smoker How long has it been since you last smoked? 1-5 years Section Notes: Smoking history - ages 9 -77 yrs old ETOH - ages [age] Vital Signs Blood pressure systolic 107 mm Hg 09/16/19 25 Blood pressure diastolic 76 mm Hg 025 Heart Rate 72 /min 09/15/2024 Height 75 in 09/15/2024 Weight 170 lbs 09/15/2024 BMI 21.25 kg/m2 09/15/2024 Height-cm 190.5 cm 09/15/2024 Weight-kg 77.11 kg 09/15/2024 Procedures Procedure Date Ordered Date Performed Result Body Sit e Catheter Insertion-Routine 09/15/2024 N/A Encounters Encounter Location Date Provider Diagnosis [facility] [address] [place] [address] 09/15/2024 Jong Hercules Encounter for attention to cystostomy Z43.5 ; Dysuria R30.0 and Acute urinary retention R33.8 Assessments Encounter Date Diagnosis (ICD Code) Assessment Notes Treatment Notes Treatment Clinical Notes Section Notes 09/15/2024 Encounter for attention to cystostomy (ICD-10 - Z43.5) Pt here for routine spt change. Pt stated that his sp tube had been clogged for two days and he had been urinating well from his penis. With new sp tube in placed, UA was obtained and sent for PCR. Will treat pt off of results. Pt tolerated change well and will return in 2 weeks for routine change. 09/15/2024 Dysuria (ICD-10 - R30.0) Pt here for routine spt change. Pt stated that his sp tube had been clogged for two days and he had been urinating well from his penis. With new sp tube in placed, UA was obtained and sent for PCR. Will treat pt off of results. Pt tolerated change well and will return in 2 weeks for routine change. 09/15/2024 Acute urinary retention (ICD-10 - R33.8) Pt here for routine spt change. Pt stated that his sp tube had been clogged for two days and he had been urinating well from his penis. With new sp tube in placed, UA was obtained and sent for PCR. Will treat pt off of results. Pt tolerated change well and will return in 2 weeks for routine change. Plan Of Treatment Pending Test Test Name Order Date Catheter Insertion-Routine 09/15/2024 Next Appt Details Follow Up: 2 weeks, Reason: Provider Name:JONG Simons, 09/29/2024 10:00:00 AM, [address] [place], [address], Provider Name:JONG Simons, 11/30/2024 10:15:00 AM, [address] [place], [address], Progress Notes * ANNAMARIA BRANDON RDOB:[birth year] (79 yo M)Acc No.[id number]:09/15/2024 Progress Note Patient: ANNAMARIA TOPETE Provider: Roby Hercules APRN :1945 A ge:79 Y S ex:Male Date:09/15/2024 Address:[address] [place], [place] [id number] Pcp:Jose Thomason MD Subjective: * Chief Complaints: * 1 . 2 wk SP tube change. * Medical History: P neumonia, Arthritis, Bladder infections, Diabetes, Prostate cancer, Hernia, Hernia, Back Trouble, High Blood Pressure, Hematuria, COPD, LUTS, Bone cancer. * Surgical History: L eft Knee Replacement 02/2004, Right Knee Replacement 09/2012, Orchiectomy 04/2017, Back Surgery 02/2020. * Hospitalization/Major Diagno stic Procedure: S ee Prior sx hx . * Family History: F ather: 69 yrs, diagnosed with Heart disease. M other: 89 yrs, diagnosed with Other malignant neoplasm without specification of site. * Social History: T obacco Use: T obacco Control (Standard) T obacco use: F ormer smoker, H ow long has it been since you last smoked? 1 -5 years. S moking history - ages 9 -77 yrs old ETOH - ages [age]. * Medications: T aking Vitamin D3 , Taking Triamcinolone Acet & Anesth , Taking Trelegy Ellipta 100-62.5-25 MCG/ACT Aerosol Powder Breath Activated 1 puff Inhalation Once a day , Taking Tamsulosin HCl 0.4 MG Capsule 1 capsule Orally Once a day , Taking Vitamin D , Taking Calcium , Taking Ipratropium Independence , Taking Xtandi , Taking Ondansetron 8 [...] 40mg, Not-Taking predniSONE , Not- Taking Nasal Shanks , Not-Taking Fluconazole 100 MG Tablet 1 [...] Tablet 2 tablets Orally Once a day , Medication List reviewed and reconciled with the patient * Allergies: V ancomycin: hives - Allergy. Objective: * Vitals: B P: 107/76 mm Hg, HR: 72 /min, Wt: 170 lbs, Wt-k.11 kg, Ht: 75 in, Ht-cm: 190.5 cm, BMI: 21.25 Index, Body Surface Area: 2.02. Assessment: * Assessment: 1. E ncounter for attention to cystostomy - Z43.5 (Primary) 2 . D ysuria - R30.0 3 . A cute urinary retention - R33.8 Pt here for routine spt bowling steve. Pt stated that his sp tube had been clogged for two days and he had been urinating well from his penis. With new sp tube in placed, UA was obtained and sent for PCR. Will treat pt off of results. Pt tolerated change well and will return in 2 weeks for routine change. Plan: * Treatment: 2. A cute urinary retention P rocedure: Catheter Insertion-Routine * Procedure Codes: 5 1705 CHANGE OF BLADDER TUBE * Follow Up: 2 weeks * Billing Information: * Visit Code: * Procedure Codes: 26232 CHANGE OF BLADDER TUBE. * Sign off status: Completed true * Provider: Roby Hercules APRN Date: 0 09/15/2024 Generated for Luc mcnally/Dudley/Meryitting on: 0 09/21/2024 11:27 AM CDT
--- OUTSIDE RECORDS SUMMARY | 2024-09-19 03:55 | XMS_ITS ---
Author Organization [facility] [employer] [employer] Address [address] [place] [address] Care Team Providers Care Sr. Unix System Administrator Name Role Phone Katelin WYATT, Jose Primary Care Provider Unavailab LYDIA Malave Unavailable [phone] Jong Hercules Unavailable [phone] Allergies Allergen (clinical drug ingredient) Drug/Non Drug Allergy documented on EMR Reaction Allergy Type Onset Date Status vancomycin Vancomycin hives Drug Allergy Activ e REASON FOR VISIT + urine PCR Medications Medication SIG (Take, Route, Frequency, Duration) Notes Start Date End Date Status Probiotic Acidophilus - as directed Oral ly 3 times a day; Duration: 10 days 09/19/2024 09/29/2024 Active Cipro 500 MG 1 tablet Orally twic e a day; Duration: 10 days 09/19/2024 09/29/2024 Active Encounters Encounter Location Date Provider Diagnosis [facility] [address] [place] [address] 09/19/2024 Jong Hercules Plan Of Treatment Medication Medication Name Sig Start Date Stop Date Notes Probiotic Acidophilus - as directed Oral ly 3 times a day; Duration: 10 days 09/19/2024 09/29/2024 Cipro 500 MG 1 tablet Orally twic e a day; Duration: 10 days 09/19/2024 09/29/2024 Next Appt Details Provider Name:JONG Simons, 09/29/2024 10:00:00 AM, [address] [place], [address], Provider Name:JONG Simons, 11/30/2024 10:15:00 AM, [address] [facility], [address], Progress Notes * ANNAMARIA BRANDON RDOB:[birth year] (79 yo M)Acc No.[id number]:09/19/2024 Patient: ANNAMARIA TOPETE :1945 A ge:79 Y S ex:Male Address:[address] [place] [id number] * Refills Start Cipro Tablet, 500 MG, Orally, 20 Tablet, 1 tablet, twice a day, 10 days Start Probiotic Acidophilus Capsule, -, Orally, 30, as directed, 3 times a day, 10 days, Refills=0 Subjective: * Chief Complaints: * + urine PCR * Medical History: * Surgical History: * Hospitalization/Major Diagno stic Procedure: * Medications: * Allergies: V ancomycin: hives - Allergyno[Allergies Verified] Objective: * Vitals: * Physical Examination: Assessment: Plan: * Treatment: * Procedure Codes: * true * Date: Generated for Luc mcnally/Dudley/Miguelito on: 0 09/21/2024 11:27 AM CDT
[2024-09-19 14:49] VITALS: BP 107/70; PULSE 86; RESP 16; TEMP 36.7; O2SAT 93; BMI 21.9
--- NOTE | 2024-09-19 15:00 | XRR_ITS ---
PROCEDURE INFORMATION: Exam: XR Left Knee Exam date and time: 09/19/2024 3:12 PM Age: 79 years old Clinical indication: Injury or trauma; Fall; Blunt trauma; Knee; Left TECHNIQUE: Imaging protocol: Radiologic exam of the left knee. Views: 3 views. COMPARISON: CR XR knees AP WB w RT lmt ORTH 07/22/2021 11:26 AM FINDINGS: Bones/joints: Left knee arthroplasty is present and appears stable in position. No pleural lucencies adjacent to prosthesis to suggest hardware loosening. No acute fracture, subluxation or dislocation. Soft tissues: Normal. XR/XR knee LT 3V* [id number] IMPRESSION: Status post left knee arthroplasty without evidence of hardware complication or acute fracture.
--- NOTE | 2024-09-19 15:00 | XRR_ITS ---
PROCEDURE INFORMATION: Exam: XR Right Foot Exam date and time: 09/19/2024 3:12 PM Age: 79 years old Clinical indication: Injury or trauma; Blunt trauma; Right; Injury details: Bilat leg pain after falling this morning. Pain is worst in L leg and foot. PT states his toes bent backwards. ; Additional info: Fall TECHNIQUE: Imaging protocol: Radiologic exam of the right foot. Views: 3 or more views. COMPARISON: [place] bone scan whole body* [id number] 11/03/2022 8:00 AM FINDINGS: Bones/joints: No acute fracture or dislocation. No significant arthropathy. Moderate plantar calcaneal spur. Soft tissues: Soft tissue swelling in the distal dorsal surface of the foot. XR/XR foot RT min 3V* [id number] IMPRESSION: No acute fracture or dislocation.
--- NOTE | 2024-09-19 15:00 | XRR_ITS ---
PROCEDURE INFORMATION: Exam: XR Right Ankle Exam date and time: 09/19/2024 3:12 PM Age: 79 years old Clinical indication: Injury or trauma; Blunt trauma; Ankle; Right; Injury details: Bilat leg pain after falling this morning. Pain is worst in L leg and foot. PT states his toes bent backwards. ; Additional info: Fall TECHNIQUE: Imaging protocol: Radiologic exam of the right ankle. Views: 3 or more views. COMPARISON: [place] bone scan whole body* [id number] 11/03/2022 8:00 AM FINDINGS: Bones/joints: Moderate plantar calcaneal spur noted incidentally. No acute fracture or dislocation. Soft tissues: Normal. XR/XR ankle RT min 3V* [id number] IMPRESSION: No acute findings.
--- NOTE | 2024-09-19 15:11 | W.ED.FALL ---
HPI - Fall General: Chief Complaint: Fall Stated Complaint: fall, R leg and foot pain, swelling Time Seen by Provider: 09/19/24 14:51 Source: patient Mode of arrival: ambulatory Limitations: no limitations History of Present Illness: 79-year-old male states he has had a history of suprapubic cath he was recently diagnosed with UTI and antibiotics called in today states that today he was walking and tripped and fell. He states he did cut and twisted his left foot and knee has pain along with abrasion to his foot and ankle and left knee. Rates pain 5 out of 10 is worse with weightbearing he denies any hip pain denies hitting his head. Associated symptoms-after fall: Denies abdominal pain, chest pain, headache(s) or neck pain Related Data Home Medications ?Medication ?Instructions ?Recorded ?Confirmed aspirin 81 mg tablet,delayed 81 mg PO DAILY 03/29/19 09/09/24 release mv-mn-folic 200 mcg-vit K 15 1 cap PO DAILY 04/09/23 09/09/24 mcg-lutein 5 mg-zeaxanthin 1 mg capsule (PreserVision AREDS 2 Plus Multivit) loratadine 10 mg tablet (Claritin) 10 mg PO QPM 07/31/23 09/09/24 budesonide 0.5 mg/2 mL suspension 0.5 mg inhalation BID 01/17/24 09/09/24 for nebulization lorazepam 1 mg tablet 1 mg PO DAILY PRN Anxiety 02/01/24 09/09/24 calcium 250 mg-magnesium 40 mg-D3 1 tab PO DAILY 02/25/24 09/09/24 125 unit-zinc 3.40qi-yfd-lyqv tablet acetaminophen 500 mg tablet 1,000 mg PO QID PRN Fever Or Pain 04/24/24 09/09/24 (Tylenol Extra Strength) lactobacillus comb no.10 20 20,000 mmu cells PO DAILY 04/24/24 09/09/24 billion cell capsule (Probiotic) triamcinolone acetonide 55 mcg 2 spray intranasal DAILY 05/18/24 09/09/24 nasal spray aerosol azelastine 137 mcg (0.1 %) nasal 2 spray intranasal BID 05/20/24 09/09/24 spray metoprolol succinate 25 mg 12.5 mg PO QAM 05/20/24 09/09/24 tablet,extended release 24 hr Held on 09/08/24. Instructions: Doctor's Order Previous Rx's ?Medication ?Instructions ?Recorded nitroglycerin 0.4 mg sublingual 0.4 mg sublingual Q5M PRN Chest 07/21/22 tablet (Nitrostat) Pain #30 tabs Walker #1 ea 07/28/22 catheter bags #4 ea 10/08/23 fluticasone fur. 100 mcg-umeclid 1 ea inhalation DAILY #60 ea 10/13/23 62.5 mcg-vilant 25 mcg inhalat.powder (Trelegy Ellipta) ipratropium 0.5 mg-albuterol 3 mg 3 ml inhalation Q6H PRN wheezing 11/06/23 (2.5 mg base)/3 mL nebulization #90 mL soln nebulizer with tubing #1 ea 11/06/23 polyethylene glycol 3350 17 gram 17 g PO DAILY #30 ea 01/18/24 oral powder packet (Miralax) docusate sodium 100 mg capsule 100 mg PO DAILY PRN constipation 01/29/24 #60 caps tamsulosin 0.4 mg capsule 0.4 mg PO QPM #90 caps 04/05/24 glycerin (adult) 1 supp TN DAILY PRN constipation 04/24/24 #12 ea cholecalciferol (vitamin D3) 50 50 mcg PO DAILY #90 caps 04/26/24 mcg (2,000 unit) capsule ondansetron HCl 8 mg tablet 8 mg PO Q8H PRN Nausea And 06/13/24 Vomiting #60 tabs morphine 30 mg immediate release 30 mg PO Q6H PRN pain 22 days #90 07/12/24 tablet tabs rosuvastatin 40 mg tablet 40 mg PO BEDTIME #90 tabs 07/12/24 levothyroxine 175 mcg tablet See Rx Instructions .Route 07/19/24 .COMPLEX #90 tabs apixaban 5 mg tablet (Eliquis) 5 mg PO BID #90 tabs 07/21/24 famotidine 40 mg tablet 40 mg PO BID #180 tabs 07/21/24 montelukast 10 mg tablet 10 mg PO DAILY #90 tabs 07/21/24 sitagliptin phosphate 100 mg 100 mg PO QAM #90 tabs 07/21/24 tablet (Januvia) trazodone 100 mg tablet 100 mg PO QPM #90 tabs 07/21/24 enzalutamide 80 mg tablet (Xtandi) 80 mg PO DAILY #30 tabs 08/24/24 carbamazepine 100 mg See Rx Instructions .Route 09/02/24 tablet,extended release,12 hr .COMPLEX #60 tabs metoclopramide HCl 5 mg tablet 5 mg PO TID #270 tabs 09/02/24 molnupiravir 200 mg capsule (EUA) 800 mg (4 x 200 mg) PO Q12H 5 days 09/09/24 #40 caps prednisone 5 mg tablet 5 mg PO BID #60 tabs 09/12/24 Allergies Allergy/AdvReac Type Severity Reaction Status Date / Time vancomycin Allergy HIVES,RASH Verified 09/19/24 14:52 Review of Systems Const: Denies: fever(s), chills, body aches or change in appetite ENMT: Denies: throat pain or dental pain Card: Denies: chest pain Resp: Denies: dyspnea GI: Denies: abdominal pain, nausea, vomiting or diarrhea Musc: Reports: extremity pain; Denies: neck pain or back pain Skin/Breast: Denies: rash Neuro: Denies: headache(s) PFSH ED PFSH: Medical History Weight loss Viral URI with cough Hospital discharge follow-up Papillary thyroid carcinoma Suprapubic catheter Prostate cancer metastatic to bone Deep vein thrombosis (DVT) of left lower extremity Nausea & vomiting Lower urinary tract symptoms (LUTS) Cancer related pain Urinary tract infection Right kidney mass Burning sensation of feet Lumbar stenosis with neurogenic claudication Intervertebral disc disorder with radiculopathy of lumbosacral region Metastasis to bone Dyslipidemia History of diverticulitis Type 2 diabetes mellitus without complication, without long-term current use of insulin Benign essential HTN Post-surgical hypothyroidism Insomnia GERD (gastroesophageal reflux disease) COPD (chronic obstructive pulmonary disease) 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 Prostate cancer History of thyroid cancer Surgical History History of bladder surgery History of prostate surgery H/O transurethral resection of prostate History of cystostomy S/P cystourethroscopy with dilation of urethral stricture History of lumbar discectomy History of colonoscopy (07/12/19) diverticulosis, repeat 10 years History of orchiectomy, bilateral H/O total knee replacement BILATERAL H/O hernia repair History of hemorrhoidectomy History of uvulectomy History of thyroidectomy, subtotal Family History Mother , in her 90's Cancer Diabetes Sister Diabetes Father , in his 70's No problems noted. Other CAD (coronary artery disease) Social History Smoking and tobacco/nicotine status: never used tobacco/nicotine Quit status (tobacco/nicotine): has quit using Year quit tobacco: 2022 Former quit date comment: stopped in February of this year Alcohol intake: never Substance/Drug Use: never Lives independently: Yes Household members: spouse Marital status: Current occupational status: retired Physical Exam Const: COMMON NORMALS: patient oriented x3 HENMT: COMMON NORMALS: normocephalic and atraumatic HEAD & SCALP: normocephalic and atraumatic Eye: COMMON NORMALS: conjunctivae normal CONJUNCTIVA: Yes conjunctivae normal Neck/C-Spine: COMMON NORMALS: full ROM and supple Chest: COMMONS NORMALS: normal inspection of the chest Resp: COMMON NORMALS: normal respiratory effort Cardio: COMMON NORMALS: regular rate, regular rhythm and No murmurs present (Cardio) RATE: regular rate RHYTHM: regular rhythm Extremity: NARRATIVE EXTREMITY EXAM: Tenderness along with bruising noted to leftt foot and ankle and some tenderness to left knee has a skin tear over the distal part of the right foot no laceration Neuro: COMMON NORMALS: patient oriented x3, moves all extremities and no focal motor deficits Psych: COMMON NORMALS: mental status grossly normal, Normal thought process present and cooperative THOUGHT PROCESS: Normal thought process present Skin: COMMON NORMALS: no rashes or lesions noted and no wounds GENERAL SKIN EXAM: no rashes or lesions noted Course Vital Signs: Vital signs: Vital Signs Temperature 98.0 F 09/19/24 14:49 Pulse Rate 69 09/19/24 16:33 Respiratory Rate 16 09/19/24 14:49 Blood Pressure 109/68 09/19/24 16:33 Pulse Oximetry 90 09/19/24 16:33 Oxygen Delivery Me thod Room Air 09/19/24 16:33 MDM - Fall Medical Decision Making Patient presents here foot contusion after a fall along with contusion to his knee x-rays foot ankle near normal blood work here is normal as well he stable for discharge at this time. Medical Records I reviewed the patient's medical records. Lab Data I reviewed the patient's lab results. 09/19/24 15:12 09/19/24 15:12 Radiology Impressions Ankle X-Ray 09/19/24 15:00 IMPRESSION: No acute findings. Foot X-Ray 09/19/24 15:00 IMPRESSION: No acute fracture or dislocation. Laboratory Results WBC 4.91 10^3/uL (3.29-11.43) 09/19/24 15:12 RBC 3.58 10^6/uL (3.85-5.65) L 09/19/24 15:12 Hgb 11.60 g/dL (11.27-16.99) 09/19/24 15:12 Hct 34.7 % (37-53) L 09/19/24 15:12 MCV 96.9 fl (82-101) 09/19/24 15:12 MCH 32.4 pg (27-33) 09/19/24 15:12 MCHC 33.4 g/dL (30-55) 09/19/24 15:12 RDW 13.2 % (12.1-15.1) 09/19/24 15:12 Plt Count 206 10^3/cmm (157-399) 09/19/24 15:12 MPV 10.2 fL (7.4-10.4) 09/19/24 15:12 Neut % (Auto) 79.7 % 09/19/24 15:12 Lymph % (Auto) 6.5 % 09/19/24 15:12 [place] % (Auto) 12.6 % 09/19/24 15:12 Eos % (Auto) 0.2 % 09/19/24 15:12 Baso % (Auto) 0.2 % 09/19/24 15:12 Neut # (Auto) 3.91 10^3/uL (1.8-7.7) 09/19/24 15:12 Lymph # (Auto) 0.3 10^3/uL (0.8-4.8) L 09/19/24 15:12 [place] # (Auto) 0.6 10^3/uL (0.2-0.9) 09/19/24 15:12 Eos # (Auto) 0.0 10^3/uL (0.0-0.8) 09/19/24 15:12 Baso # (Auto) 0.0 10^3/uL (0.0-0.1) 09/19/24 15:12 Nucleated RBC % (auto) 0 % 09/19/24 15:12 Nucleated RBCs # 0.0 /100WBC 09/19/24 15:12 Sodium 136 mmol/L (136-145) 09/19/24 15:12 Potassium 3.5 mmol/L (3.5-5.1) 09/19/24 15:12 Chloride 96 mmol/L (98-107) L 09/19/24 15:12 Carbon Dioxide 28 mmol/L (22-29) 09/19/24 15:12 Anion Gap 15.5 (5-19) 09/19/24 15:12 BUN 11 mg/dL (8-23) 09/19/24 15:12 Creatinine 1.2 mg/dL (0.7-1.2) 09/19/24 15:12 GFR Calculation Not Reportable 09/19/24 15:12 Glucose 157 mg/dL (65-115) H 09/19/24 15:12 Calculated Osmolality 285 mOsm/kg (285-295) 09/19/24 15:12 Calcium 8.6 mg/dL (8.5-10.5) 09/19/24 15:12 Total Bilirubin 0.5 mg/dL (0.15-1.2) 09/19/24 15:12 AST 11 U/L (0-40) 09/19/24 15:12 ALT < 5 U/L (0-41) 09/19/24 15:12 Alkaline Phosphatase 78 U/L (40-130) 09/19/24 15:12 Total Protein 6.8 g/dL (6.6-8.7) 09/19/24 15:12 Albumin 3.6 g/dL (3.5-5.2) 09/19/24 15:12 Globulin 3.2 g/dL (1.3-4.6) 09/19/24 15:12 All radiology interpretation(s) finalized by discharge Discharge Plan Discharge Patient Disposition: Home Clinical Impression: Contusion of foot, Fall Condition: Stable Prescriptions: No Action aspirin 81 mg tablet,delayed release (DR/EC) 81 mg PO DAILY (DME) nebulizer with tubing See Rx Instructions .Route .MEDSUPPLY Qty: 1 0RF Rx Instructions: As directed ipratropium-albuterol 0.5 mg-3 mg(2.5 mg base)/3 mL solution for nebulization 3 ml inhalation Q6H PRN (Reason: wheezing) Qty: 90 0RF docusate sodium 100 mg capsule 100 mg PO DAILY PRN (Reason: constipation) Qty: 60 0RF lorazepam 1 mg tablet 1 mg PO DAILY PRN (Reason: Anxiety) triamcinolone acetonide 55 mcg aerosol,spray 2 spray intranasal DAILY Rx Instructions: administer into each nostril montelukast 10 mg tablet 10 mg PO DAILY Qty: 90 1RF Januvia 100 mg tablet 100 mg PO QAM Qty: 90 1RF trazodone 100 mg tablet 100 mg PO QPM Qty: 90 1RF Eliquis 5 mg tablet 5 mg PO BID Qty: 90 1RF famotidine 40 mg tablet 40 mg PO BID Qty: 180 1RF (DME) Walker See Rx Instructions .ROUTE .MEDSUPPLY Qty: 1 0RF Rx Instructions: As directed PreserVision AREDS 2 Plus MV 200 mcg-15 mcg- 5 mg-1 mg capsule 1 cap PO DAILY Trelegy Ellipta 100-62.5-25 mcg blister with device 1 ea INHALATION DAILY Qty: 60 5RF (DME) catheter bags See Rx Instructions .Route .MEDSUPPLY Qty: 4 5RF Rx Instructions: As directed calcium ate-zlu-I2-Zn-copy and print associate-khadar 250 mg-40 mg- 125 unit-3.75mg tablet 1 tab PO DAILY molnupiravir 200 mg capsule 800 mg PO Q12H 5 Days Qty: 40 0RF nitroglycerin [Nitrostat] 0.4 mg tablet, sublingual 0.4 mg SUBLINGUAL Q5M PRN (Reason: Chest Pain) Qty: 30 1RF tamsulosin 0.4 mg capsule 0.4 mg PO QPM Qty: 90 1RF cholecalciferol (vitamin D3) 50 mcg (2,000 unit) capsule 50 mcg PO DAILY Qty: 90 1RF ondansetron HCl 8 mg tablet 8 mg PO Q8H PRN (Reason: Nausea And Vomiting) Qty: 60 0RF morphine 30 mg tablet 30 mg PO Q6H PRN (Reason: pain) 22 Days Qty: 90 0RF rosuvastatin 40 mg tablet 40 mg PO BEDTIME Qty: 90 1RF levothyroxine 175 mcg tablet See Rx Instructions .ROUTE .COMPLEX Qty: 90 1RF Dose Instruction: TAKE 1 TABLET BY MOUTH EVERY DAY thursday through thursday. take 1/2 tablet BY MOUTH ON thursday, Thursday Rx Instructions: TAKE 1 TABLET BY MOUTH EVERY DAY thursday through thursday. take 1/2 tablet BY MOUTH ON thursday, P thursday Xtandi 80 mg tablet 80 mg PO DAILY Qty: 30 0RF metoclopramide HCl 5 mg tablet 5 mg PO TID Qty: 270 1RF carbamazepine 100 mg tablet extended release 12 hr See Rx Instructions .ROUTE .COMPLEX Qty: 60 3RF Dose Instruction: TAKE 1 TABLET BY MOUTH TWICE DAILY Rx Instructions: TAKE 1 TABLET BY MOUTH TWICE DAILY prednisone 5 mg tablet 5 mg PO BID Qty: 60 0RF budesonide 0.5 mg/2 mL suspension for nebulization 0.5 mg inhalation BID polyethylene glycol 3350 [Miralax] 17 gram powder in packet 17 g PO DAILY Qty: 30 0RF loratadine [Claritin] 10 mg Tablet 10 mg PO QPM acetaminophen [Tylenol Extra Strength] 500 mg Tablet 1,000 mg PO QID PRN (Reason: Fever Or Pain) Probiotic 20 billion cell Capsule 20,000 mmu cells PO DAILY Rx Instructions: administer with a meal glycerin (adult) Suppository 1 supp TN DAILY PRN (Reason: constipation) Qty: 12 0RF metoprolol succinate 25 mg tablet extended release 24 hr 12.5 mg PO QAM azelastine 137 mcg (0.1 %) spray,non-aerosol 2 spray INTRANASAL BID Discharge Orders: Discharge ED (Routine); Ordered 09/19/24 Ordered By: Vale Mcguire Referrals: Joann Knowles DO [Primary Care Provider, Family Practice] - 4-7 days Discharge Diet: Advance as tolerated Discharge Activity: Resume usual activity Patient Instructions: Contusion in Adults (ED) Print Language: Lao Coding Level of Care Code ED Shearing Machine Tender for Gale Callahan
[2024-09-19 15:18] LABS: Hematocrit 34.7 % (37-53); Hemoglobin 11.60 g/dL (11.27-16.99); Mean Corpuscular HGB Conc 33.4 g/dL (30-55); Mean Corpuscular Hemoglobin 32.4 pg (27-33); Mean Corpuscular Volume 96.9 fl (82-101); Nucleated Red Blood Cells % 0 %; Platelet Count 206 10^3/cmm (157-399); Red Blood Count 3.58 10^6/uL (3.85-5.65); White Blood Count 4.91 10^3/uL (3.29-11.43)
[2024-09-19 15:38] LABS: Alanine Aminotransferase < 5 U/L (0-41); Albumin Level 3.6 g/dL (3.5-5.2); Alkaline Phosphatase 78 U/L (40-130); Anion Gap 15.5 (5-19); Aspartate Amino Transferase 11 U/L (0-40); Blood Urea Nitrogen 11 mg/dL (8-23); Calcium 8.6 mg/dL (8.5-10.5); Carbon Dioxide 28 mmol/L (22-29); Chloride 96 mmol/L (98-107); Creatinine Clr Calc Pharmacy 58.2124; Globulin 3.2 g/dL (1.3-4.6); Glucose 157 mg/dL (65-115); Osmolality Calculated 285 mOsm/kg (285-295); Potassium 3.5 mmol/L (3.5-5.1); Sodium 136 mmol/L (136-145); Total Protein 6.8 g/dL (6.6-8.7)
[2024-09-19 15:47] VITALS: BP 114/74; PULSE 74; O2SAT 93
[2024-09-19 16:33] VITALS: BP 109/68; PULSE 69; O2SAT 90
--- OUTSIDE RECORDS SUMMARY | 2024-09-21 11:26 | XMS_ITS | Clinical Summary ---
Author Organization [facility] tone Address [address] [place] [address] Care Team Providers Care Agricultural Services Director Name Role Phone Bunch Henry Ritter Primary [...] 0 Active fluticasone propionate (FLONASE) 50 mcg/spray [place], Suspension nasal inhaler 50 mcg by See [...] on file Legal Sex Male 5:32 AM CLOUD SOLUTIONS ARCHITECT Gender Identity Not on file Sexual Orientation [...] 2020 INFLUENZA VACCINE (#1) 2024 Insurance MEDICAID [facility] DUAL COMPLETE MCR PPO D-SNP Care Teams Agricultural Services Director Relationship Specialty Start Date End Date Henry Bunch DO [address] [facility] [address] [place] [address] PCP - General Internal Medicine 06/08/18
--- OUTSIDE RECORDS SUMMARY | 2024-09-21 11:26 | XMS_ITS | Encounter Summary ---
Author Organization [facility] Address [address] Attn: Epic Prelude ADT [place] [address] Care Team Providers Care Logging Crew Foreman Name Role Phone Henry Bunch DO Primary Care Provide r Encounter Details Date Type Department Care Team (Late st Contact Info) Description 08/11/1999 Outpatient Historical Arun Weller MD NO ADDRESS ON FILE Social History Tobacco Use Types Packs/Day Years Used Date Smoking Tobacco: Never Assessed Sex and Gender Information Value Date Recorded Sex Assigned at Not on file Legal Sex Male 5:32 AM TECHNICAL SERVICES COORDINATOR Gender Identity Not on file Sexual Orientation Not on file documented as of this encounter Plan of Treatment Not on file documented as of this encounter Visit Diagnoses Not on filedocumented in this encounter Care Teams Logging Crew Foreman Relationship Specialty Start Date End Date Henry Bunch DO [address] [place] [address] PCP - General Internal Medicine 06/08/18 documented as of this encounter
--- OUTSIDE RECORDS SUMMARY | 2024-09-21 11:26 | XMS_ITS | Clinical Summary ---
Author Organization [facility] Address [address] [place] [address] Care Team Providers Care Arch Cushion Press Operator Name Role Phone Henry Bunch Primary Care [...] 0 Active fluticasone propionate (FLONASE) 50 mcg/spray [place], Suspension nasal inhaler 50 mcg by See [...] on file Legal Sex Male 11:50 AM CAREER SERVICES ASSISTANT Gender Identity Not on file Sexual Orientation [...] , 07/24/2014, 02/10/2012, Additional history exists [place] [place] [id number] Member Subscriber Plan / Payer (Ef fective 2021-Present) Name:Charlie Jacobs Relation to Subscriber:Self Name:Charlie Jacobs Payer ID:[id number] (NAIC) Type:PPO Address: [address] [id number] [place]ID [place] Care Teams Arch Cushion Press Operator Relationship Specialty Start Date End Date Henry Bunch DO [address] [place] [address] PCP - General Internal Medicine 06/08/18
--- OUTSIDE RECORDS SUMMARY | 2024-09-21 11:27 | XMS_ITS | Patient Health Record ---
Author Organization [facility], [facility] Address [address] [place] [address] Care Team Providers Care Senior Market Intelligence Consultant Name Role Phone Katelin WYATT, Jose Primary Care Provider Unavailab LYDIA Malave Unavailable [phone] JONG MENJIVAR Unavailable [phone] JILLIAN MENDOZA Unavailable [phone] Jong Hercules Unavailable [phone] Allergies Allergen (clinical drug ingredient) Drug/Non Drug Allergy documented on EMR Reaction Allergy Type Onset Date Status vancomycin Vancomycin hives Drug Allergy Activ e Results Component Value Reference Range Notes Urinalysis, Routine Reviewed date:10/01/2023 11:27:10 AM Interpretation: Performing Lab: Notes/Report: Urine-Color dark yellow Appearance cloudy Glucose - Bilirubin - Ketones - Specific [place] 1.030 Occult Blood 3+ pH 6.0 Urine Protein 2+ Urobilinogen,Semi-Qn - Nitrite, Urine pos WBC Esterase 2+ Urinalysis, Routine Reviewed date:10/20/2023 04:12:17 PM Interpretation: Performing Lab: Notes/Report: Urine-Color dark yellow Appearance cloudy Glucose - Bilirubin - Ketones - Specific [place] 1.025 Occult Blood 3+ pH 6.0 Urine Protein 3+ Urobilinogen,Semi-Qn - Nitrite, Urine - WBC Esterase 3+ UBASE - Urinary Tract Infect ion (HTRx) Reviewed date:09/19/2024 08:54:48 AM Interpretation: Performing Lab:, [facility] at [address], Phone - [phone], [facility] [address] Notes/Report: CTX-M1 (15), M2 (2), M9 (9), [...] lugdunensis Not Detected 19.961 - 24.689 ppm Reason For Referral No Information Medications Medication SIG (Take, Route, Frequency, Duration) Notes Start Date End Date Status LORazepam 2 MG/ML 1 mL as needed Orall y Twice a day Active Xgeva 120 MG/1.7ML as directed Subcutaneous Active Nitroglycerin Active Rosuvastatin Calcium 40 MG 1 tablet Orally Once a day Active Morphine Sulfate 15 MG 1 tablet as needed Orally every 6 hrs As needed Active traZODone HCl 50 MG 1 tablet at bedtime as needed Orally Once a day Active Probiotic Active Montelukast Sodium 10 MG 1 tablet Orally Once a day Active Metoclopramide HCl 5 MG 1 tablet before meals Orally Twice a day Active Levothyroxine Sodium 175 MCG 1 tablet in the morning on an empty stomach Orally Once a day Active carBAMazepine ER 100 MG 1 tablet Orally Twice a day Not-Taking Alfuzosin HCl Not-Ta jaden Abiraterone Acetate 500 MG 2 tablets Orally Once a day Not-Taking Tylenol Active Ondansetron HCl 4 MG 1 tablet Orally Onc e a day Not-Taking Claritin Active Zoladex 10.8 MG as directed Subcutaneous Not-Taking Cetirizine HCl 10 MG 1 tablet Orally Onc e a day Not-Taking Probiotic Acidophilus - as directed Oral ly 3 times a day; Duration: 10 days 09/19/2024 09/29/2024 Active Calcium Active Ipratropium [place] Active Xtandi Active Ondansetron 8 MG 1 tablet on the tongue and allow to dissolve as needed Orally Once a day Active Promethazine HCl 6.25 MG/5ML 10 mL as needed Orally every 6 hrs Not-Taking Triamcinolone Acet & Anesth Active Trelegy Ellipta 100-62.5-25 MCG/ACT 1 puff Inhalation Once a day Active Tamsulosin HCl 0.4 MG 1 capsule Orally O nce a day Active Vitamin D Active Meclizine HCl Not-Ta jaden levoFLOXacin 500 MG 1 tablet Orally Once a day Not-Taking Albuterol Not-Taking Flonase Not-Taking glipiZIDE 2.5 MG 1 tablet 30 minutes before breakfast Orally Once a day Not-Taking Finasteride 5 MG 1 tablet Orally Once a day; Duration: 90 days 05/17/2024 05/12/2025 Not-Taking Vitamin D3 Active Esomeprazole Magnesium 40 MG 1 capsule Orally Once a day Not-Taking predniSONE 5 MG 1 tablet Orally Once a day Not-Taking Cipro 500 MG 1 tablet Orally twic e a day; Duration: 10 days 09/19/2024 09/29/2024 Active Triamcinolone (oint)-Silicone Not-Taking Mupirocin 2 % 1 application Externally Twice a day Not-Taking PreserVision AREDS 2 Active Famotidine 20 MG 1 tablet at bedtime as needed Orally twice a day 40mg Active predniSONE Not-Takin g Nasal [place] Not-Taki ng Januvia 100 MG 1 tablet Orally Once a day Active Eliquis 5 MG 1 tablet Orally Twic e a day Active Aspirin 81 81 MG 1 tablet Orally Once a day Active Fluconazole 100 MG 1 tablet Orally Not-Taking Metoprolol Succinate ER 25 MG 1 tablet Orally Once a day Not-Taking Prochlorperazine Not -Taking Social History Tobacco Use: Social History Observation [...] Status Risk Notes Problem Incision of bladder (53154174) Encounter for attention to cystostomy (Z43.5) Active confirmed Problem Type II diabetes mellitus without complication (748076127) Type 2 diabetes mellitus without complication, unspecified whether snf insulin use (E11.9) Active confirmed Problem Suprapubic catheter (677295125) Suprapubic catheter (Z93.59) Active confirmed Problem Bladder calculus (34868698) Bladder calculus (N21.0) Active confirmed Problem Encounter for suprapubic catheter care (Z43.5) Active confirmed Problem COPD - Chronic obstructive pulmonary disease (79742591) Chronic obstructive pulmonary disease, unspecified COPD type (J44.9) Active confirmed Problem Change of urinary catheter bag (procedure) (619053932) Catheter (urine) change required (Z46.6) Active confirmed Problem History of radiation exposure (711498459) S/P radiation therapy (Z92.3) Active confirmed Problem Metastatic adenocarcinoma to prostate (7943550229) Metastatic adenocarcinoma to prostate (C79.82) Active confirmed Problem Malignant tumor of prostate (237376469) Prostate cancer (C61) Active confirmed Vital Signs Heart Rate 72 /min 09/15/2024 Height-cm 190.5 cm 09/15/2024 Blood pressure diastolic 76 mm Hg 09/15/2024 Weight-kg 77.11 kg 09/15/2024 Height 75 in 09/15/2024 Blood pressure systolic 107 mm Hg 09/15/2024 Weight 170 lbs 09/15/2024 BMI 21.25 kg/m2 09/15/2024 Procedures Procedure Date Ordered Date Performed Result Body Sit e SP Tube Change 10/01/2023 10/01/2023 N/A SP Tube Change 10/27/2023 10/27/2023 N/A SP Tube Change 12/01/2023 12/01/2023 N/A SP Tube Change 12/29/2023 12/29/2023 N/A SP Tube Change 02/17/2024 02/17/2024 N/A SP Tube Change 03/02/2024 03/03/2024 N/A SP Tube Change 06/21/2024 06/21/2024 N/A SP Tube Change 07/12/2024 07/12/2024 N/A SP Tube Change 08/03/2024 08/03/2024 N/A SP Tube Change 08/18/2024 08/18/2024 N/A SP Tube Change 09/01/2024 09/01/2024 N/A Catheter Insertion-Routine 09/15/2024 N/A Encounters Encounter Location Date Provider Diagnosis [place], [facility] [address] [address] 03/30/2024 LYDIA GONZALES [facility] [place], [facility] [address] [address] 10/01/2023 LYDIA GONZALES Bladder calculus N21 .0 ; Abnormal urine finding R82.90 ; Gross hematuria R31.0 ; Suprapubic catheter Z93.59 ; Urinary retention R33.9 ; Prostate cancer C61 ; Metastatic adenocarcinoma to prostate C79.82 ; History of orchiectomy, 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 ; S/P radiation therapy Z92.3 and Encounter for attention to cystostomy Z43.5 [place] [address] [address] 10/20/2023 JONG MENJIVAR Bladder calculus N21 .0 ; Urinary retention R33.9 ; Abnormal urine finding R82.90 ; Gross hematuria R31.0 ; Suprapubic catheter Z93.59 ; Prostate cancer C61 ; Metastatic adenocarcinoma to prostate C79.82 ; History of orchiectomy, 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 ; S/P radiation therapy Z92.3 ; Encounter for attention to cystostomy Z43.5 and Complicated UTI (urinary tract infection) N39.0 [email or web address], [facility] [address] [place] [address] 10/27/2023 LYDIA REANO Urinary retention R3 3.9 ; Prostate cancer C61 ; Metastatic adenocarcinoma to prostate C79.82 ; History of orchiectomy, 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 ; S/P radiation therapy Z92.3 and Encounter for attention to cystostomy Z43.5 [facility], [facility] [address] [place] [address] 12/01/2023 JILLIAN MENDOZA Encounter for attent ion to cystostomy Z43.5 and Suprapubic catheter Z93.59 [facility] [place], [facility] [address] [place] [address] 12/29/2023 JONG MENJIVAR Urinary retention R3 3.9 and Encounter for suprapubic catheter care Z43.5 [facility] [place], [facility] [address] [place] [address] 02/17/2024 JONG MENJIVAR Encounter for suprapubic catheter care Z43.5 and Urinary retention R33.9 [facility] [place], [facility] [address] [place] [address] 03/02/2024 JONG MENJIVAR Urinary retention R3 3.9 ; Prostate cancer C61 ; Metastatic adenocarcinoma to prostate C79.82 ; History of orchiectomy, 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 ; S/P radiation therapy Z92.3 and Encounter for attention to cystostomy Z43.5 [facility] [email or web address] [facility], [facility] [address] [place] [address] 03/09/2024 JONG MENJIVAR Trigonitis N30.30 [email or web address], [facility] [address] [place] [address] 04/06/2024 LYDIA REANO Urinary retention R3 3.9 ; Prostate cancer C61 ; Metastatic adenocarcinoma to prostate C79.82 ; History of orchiectomy, 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 and S/P radiation therapy Z92.3 [facility] [address] [place] [address] 05/31/2024 JONG MENJIVAR Urinary retention R3 3.9 ; Prostate cancer C61 ; Metastatic adenocarcinoma to prostate C79.82 ; History of orchiectomy, 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 and S/P radiation therapy Z92.3 [facility] [address] [place] [address] 06/21/2024 JONG MENJIVAR Encounter for suprapubic catheter care Z43.5 and Urinary retention R33.9 [facility] [address] [place] [address] 07/12/2024 JONG MENJIVAR Encounter for suprapubic catheter care Z43.5 and Prostate cancer C61 [facility] [address] [place] [address] 08/03/2024 JONG MENJIVAR Encounter for suprapubic catheter care Z43.5 and Prostate cancer C61 [facility] [address] [place] [address] 08/18/2024 Jong Hercules Urinary retention R3 3.9 ; Prostate cancer C61 ; Metastatic adenocarcinoma to prostate C79.82 ; History of orchiectomy, 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 ; S/P radiation therapy Z92.3 and Encounter for attention to cystostomy Z43.5 [facility] [address] [place] [address] 09/01/2024 Jong Hercules Encounter for attent ion to cystostomy Z43.5 and Urinary retention R33.9 [facility] [address] [place] [address] 09/15/2024 Jong Pevril Encounter for attent ion to cystostomy Z43.5 ; Dysuria R30.0 and Acute urinary retention R33.8 [facility] [address] [place] [address] 10/13/2023 LYDIA GONZALES [facility], [facility] [address] [place] [address] 12/15/2023 LYDIA REANO [facility] [address] [place] [address] 01/18/2024 JILLIAN MENDOZA [facility] [address] [place] [address] 02/16/2024 LYDIA REANO [facility] 140 [facility] [address] [place] [address] 02/18/2024 LYDIA REANO [facility] [address] [place] [address] 2024 JONG MENJIVAR [facility] [address] [place] [address], [place] [address] 2024 JONG MENJIVAR [facility] [address] [place] [address] 2024 LYDIA REANO [facility] [address] [place] [address] 04/04/2024 LYDIA REANO [facility] [address] [place] [address] 04/05/2024 JONG HAMMONDKER [facility] [address] [place] [address] 05/17/2024 JONG MENJIVAR [facility] [address] [place] [address] 05/24/2024 LYDIA REANO [facility] [address] [place] [address] 05/30/2024 LYDIA REANO [facility] [address] [place] [address] 09/19/2024 Jong Hercules Assessments Encounter Date Diagnosis (ICD Code) Assessment Notes Treatment Notes Treatment Clinical Notes Section Notes 10/01/2023 Bladder calculus (ICD-10 - N21.0) 10/01/2023 Abnormal urine finding (ICD-10 - R82.90) 10/27/2023 Prostate cancer (ICD-10 - C61) 10/27/2023 Urinary retention (ICD-10 - R33.9) 12/01/2023 Encounter for attention to cystostomy (ICD-10 - Z43.5) 12/01/2023 Suprapubic catheter (ICD-10 - Z93.59) 12/29/2023 Encounter for suprapubic catheter care (ICD-10 - Z43.5) Pt here for routine sptube change. He tolerated well and will return in 4 wks for repeat change. 12/29/2023 Urinary retention (ICD-10 - R33.9) Pt here for routine sptube change. He tolerated well and will return in 4 wks for repeat change. 02/17/2024 Encounter for suprapubic catheter care (ICD-10 [...] been clogged and not draining since Thursday and he has been voiding naturally along with urge incontinence. Sptube was changed without issue and 200ml drained from bladder. Pt tolerated well. He would like to cancel HH and start having sptube changed here. SPtube cycling was taught with verbal understanding from both and pt. Sptube will be changed at next office visit and then again q4wks. 03/02/2024 Prostate cancer (ICD-10 - C61) PSA [...] and scheduled for next available cystolithalopaxy at [facility]. He recently started having sptube changed with [...] and scheduled for next available cystolithalopaxy at [facility]. He recently started having sptube changed with [...] and it is both accurate and complete. 03/09/2024 Trigonitis (ICD-10 - N30.30) 04/06/2024 Prostate cancer (ICD-10 - C61) 04/06/2024 Urinary retention (ICD-10 - R33.9) 08/03/2024 Encounter for suprapubic catheter care (ICD-10 - Z43.5) Pt here for routine sptube change and he tolerated well. He will return in 3wks of repeat change. 08/18/2024 Prostate cancer (ICD-10 - C61) We discussed previous office visit with Dr. Menjivar where patient was needed to have dilation up to 16 [place] and a 16 [place] suprapubic tube back into the bladder under [...] needed to have dilation up to 16 [place] and a 16 [place] suprapubic tube back into the bladder under [...] concerns or questions. Patient satisfied with plan. 09/01/2024 Encounter for attention to cystostomy (ICD-10 - Z43.5) Pt here for routine sptube change. He tolerated well and will return in 2wks for repeat change. 09/01/2024 Urinary retention (ICD-10 - R33.9) Pt here for routine sptube change. He tolerated well and will return in 2wks for repeat change. 09/15/2024 Dysuria (ICD-10 - R30.0) Pt [...] in 2 weeks for routine change. 09/15/2024 Encounter for attention to cystostomy (ICD-10 [...] return in 2 weeks for routine change. 07/12/2024 Encounter for suprapubic catheter care (ICD-10 - Z43.5) Pt here for routine sptube change and he tolerated well. He will return in 3wks of repeat change. 07/12/2024 Prostate cancer (ICD-10 - C61) Pt here for routine sptube change and he tolerated well. He will return in 3wks of repeat change. 06/21/2024 Encounter for suprapubic catheter care (ICD-10 [...] will return in 3wks for repeat change. 05/31/2024 Urinary retention (ICD-10 - R33.9) He had a clogged SP tube and outside emergency room could only place a 10 [place] suprapubic tube. I was able to remove this and dilate up to 16 [place] and get a 16 [place] suprapubic tube back into the bladder under [...] than 50% of that time in direct rzri-op-tskv discussion. 10/20/2023 Bladder calculus (ICD-10 - N21.0) He [...] than 50% of that time in direct uciw-zf-mcxc discussion. 10/20/2023 Urinary retention (ICD-10 - R33.9) [...] than 50% of that time in direct sstr-ay-xxpi discussion. 10/20/2023 Abnormal urine finding (ICD-10 - R82.90) [...] than 50% of that time in direct wlgu-rv-chqs discussion. 05/31/2024 Prostate cancer (ICD-10 - C61) He had a clogged SP tube and outside emergency room could only place a 10 [place] suprapubic tube. I was able to remove this and dilate up to 16 [place] and get a 16 [place] suprapubic tube back into the bladder under [...] than 50% of that time in direct uyem-md-gbjt discussion. 09/15/2024 Acute urinary retention (ICD-10 - R33.8) [...] return in 2 weeks for routine change. 08/18/2024 Metastatic adenocarcinoma to prostate (ICD-10 - C79.82) We discussed previous office visit with Dr. Menjivar where patient was needed to have dilation up to 16 [place] and a 16 [place] suprapubic tube back into the bladder under [...] will return in 3wks of repeat change. 03/02/2024 Metastatic adenocarcinoma to prostate (ICD-10 - [...] and scheduled for next available cystolithalopaxy at [facility]. He recently started having sptube changed with [...] Metastatic adenocarcinoma to prostate (ICD-10 - C79.82) 10/27/2023 Metastatic adenocarcinoma to prostate (ICD-10 - C79.82) 10/01/2023 Gross hematuria (ICD-10 - R31.0) 10/27/2023 History of orchiectomy, bilateral (ICD-10 - Z90.79) 10/01/2023 Suprapubic catheter (ICD-10 - Z93.59) 03/02/2024 History of orchiectomy, bilateral (ICD-10 - [...] and scheduled for next available cystolithalopaxy at [facility]. He recently started having sptube changed with [...] it is both accurate and complete. 04/06/2024 History of orchiectomy, bilateral (ICD-10 - Z90.79) 08/18/2024 History of orchiectomy, bilateral (ICD-10 - Z90.79) We discussed previous office visit with Dr. Menjivar where patient was needed to have dilation up to 16 [place] and a 16 [place] suprapubic tube back into the bladder under [...] concerns or questions. Patient satisfied with plan. 05/31/2024 Metastatic adenocarcinoma to prostate (ICD-10 - C79.82) He had a clogged SP tube and outside emergency room could only place a 10 [place] suprapubic tube. I was able to remove this and dilate up to 16 [place] and get a 16 [place] suprapubic tube back into the bladder under [...] than 50% of that time in direct rhbu-im-prvv discussion. 10/20/2023 Gross hematuria (ICD-10 - R31.0) He [...] than 50% of that time in direct yquc-oi-mhzk discussion. 10/20/2023 Suprapubic catheter (ICD-10 - Z93.59) He [...] than 50% of that time in direct smqm-xa-dtqk discussion. 05/31/2024 History of orchiectomy, bilateral (ICD-10 - Z90.79) He had a clogged SP tube and outside emergency room could only place a 10 [place] suprapubic tube. I was able to remove this and dilate up to 16 [place] and get a 16 [place] suprapubic tube back into the bladder under [...] than 50% of that time in direct lhwf-bo-zqmu discussion. 08/18/2024 S/P radiation therapy (ICD-10 - Z92.3) We discussed previous office visit with Dr. Menjivar where patient was needed to have dilation up to 16 [place] and a 16 [place] suprapubic tube back into the bladder under [...] concerns or questions. Patient satisfied with plan. 03/02/2024 S/P radiation therapy (ICD-10 - Z92.3) [...] and scheduled for next available cystolithalopaxy at [facility]. He recently started having sptube changed with [...] it is both accurate and complete. 04/06/2024 S/P radiation therapy (ICD-10 - Z92.3) 10/01/2023 Urinary retention (ICD-10 - R33.9) 10/27/2023 S/P radiation therapy (ICD-10 - Z92.3) 10/27/2023 Encounter for attention to cystostomy (ICD-10 - Z43.5) 03/02/2024 Encounter for attention to cystostomy (ICD-10 [...] and scheduled for next available cystolithalopaxy at [facility]. He recently started having sptube changed with [...] and it is both accurate and complete. 10/01/2023 Prostate cancer (ICD-10 - C61) 08/18/2024 Encounter for attention to cystostomy (ICD-10 - Z43.5) We discussed previous office visit with Dr. Menjivar where patient was needed to have dilation up to 16 [place] and a 16 [place] suprapubic tube back into the bladder under [...] concerns or questions. Patient satisfied with plan. 05/31/2024 S/P radiation therapy (ICD-10 - Z92.3) He had a clogged SP tube and outside emergency room could only place a 10 [place] suprapubic tube. I was able to remove this and dilate up to 16 [place] and get a 16 [place] suprapubic tube back into the bladder under [...] than 50% of that time in direct ezxr-hg-juzi discussion. 10/20/2023 Prostate cancer (ICD-10 - C61) He [...] than 50% of that time in direct urnh-ae-jxfp discussion. 10/20/2023 Metastatic adenocarcinoma to prostate (ICD-10 - [...] than 50% of that time in direct oohu-aj-kdbg discussion. 10/01/2023 Metastatic adenocarcinoma to prostate (ICD-10 [...] than 50% of that time in direct wwjh-nd-amut discussion. 10/20/2023 S/P radiation therapy (ICD-10 - [...] than 50% of that time in direct rpua-pr-szzs discussion. 10/01/2023 S/P radiation therapy (ICD-10 - [...] than 50% of that time in direct fzzb-mw-jjvw discussion. 10/20/2023 Complicated UTI (urinary tract infection) [...] than 50% of that time in direct xzhy-sd-ybsw discussion. 10/01/2023 Other Imaging reviewe d with [...] Order Date Chest X-ray PA and lateral [id number] Electrocardiogram (EKG) 06/17/2023 PSA, TOTAL (5363) 08/18/2024 Catheter Insertion-Routine 09/15/2024 Future Test Test Name Order Date PSA, TOTAL (5363) 01/10/2024 Next Appt Details Provider Name:JONG Simons, 09/29/2024 10:00:00 AM, [address] [place], [address], Provider Name:JONG Simons, 11/30/2024 10:15:00 AM, [address] [place], [address], Insurance Providers Payer Name Payer Address Payer Phone Subscriber Number Group Number Insured Name Patient Relationship to Insured Coverage Start Date Coverage End Date [facility] Medicare Advantage PPO [address] [address] [place], [place] [id number] [phone] [id number] [facility] [id number] [place], ANNAMARIA Self - patient is the insured [place] Medicaid [address] [place], [place] [id number] [phone] [id number] [place], ANNAMARIA Self - patient is [...]
== END 2024-09-19 17:07 | disposition home or self-care (01) ==
PROVIDERS: Emergency Provider Emergency Medicine; PCP Family Medicine
DX: S90.31XA Contusion of right foot, initial encounter (principal); Z79.01 Long term (current) use of anticoagulants; Z79.82 Long term (current) use of aspirin; Z87.891 Personal history of nicotine dependence; Z85.46 Personal history of malignant neoplasm of prostate; Z85.850 Personal history of malignant neoplasm of thyroid; Z85.830 Personal history of malignant neoplasm of bone; J44.9 Chronic obstructive pulmonary disease, unspecified; E11.9 Type 2 diabetes mellitus without complications; I10 Essential (primary) hypertension; W01.0XXA Fall on same level from slipping, tripping and stumbling without subsequent striking against object, initial encounter
CPT/HCPCS: 36415; 73562; 73610; 73630; 80053; 85025; 99284; J7030

== ENCOUNTER 2024-09-26 15:05 | Emergency (ER) | payer OTHER, MEDICAID, SELFPAY ==
--- OUTSIDE RECORDS SUMMARY | 2024-09-09 11:29 | XMS_ITS | Continuity of Care Document ---
Author Name [facility] Organization [facility] Care Team Providers Care Pin Attacher Name Role Phone [facility] Unavailable Unavailable Problems Combined list of problems from Department of Defense and Veterans Affairs facilities. It does not include entries that were removed or entered in error. Problem Status Onset Date Problem Type Date of Resolution Comments Source non-VA PCP Dr. Knowles who manages all his medical diseases. 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 Condition Jul 30, 2022 Entered By: MAXINE DEL CASTILLO Comment: Patient states to his low back [place] [facility] Chronic low back pain (SNOMED CT 224197793) Active Condition [place] [facility] COPD - Chronic obstructive pulmonary disease Active Condition [place] [facility] Diabetic peripheral neuropathy Active Condition [place] [facility] Dizziness * (ICD-9-CM 780.4) Active Condition [place] [facility] DM - Diabetes mellitus (SNOMED CT 43251950) Active Condition [place] [facility] Foot Pain (ICD-9-CM 719.47) Active Condition [place] [facility] Hematuria Active Condition Mar 09 Entered By: MAXINE DEL CASTILLO Comment: urology [facility] 2023 Entered By: MAXINE DEL CASTILLO Comment: PB recommended pt go to [facility] to have procedure done, to make decisin and get back to urology [place] [facility] Hip Sprain/Strain Active Condition [place] [facility] History of bilateral knee arthroplasty Active Condition Jul 30, 2022 Entered By: MAXINE DEL CASTILLO Comment: Dr. Colby [place] [facility] History of colonoscopy Active Condition Jul 30, 2022 Entered By: MAXINE DEL CASTILLO Comment: 2022 Entered By: MAXINE DEL CASTILLO Comment: EGD by Dr. Handley with biopsies to esophagus = negative per pt Dr. 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 Colby [place] [facility] HLD - Hyperlipidemia Active Condition [place] [facility] Hypocalcemia Active Condition [place] [facility] Hypothyroidism (SCT 12392327) Active Condition Jul 30, 2022 Entered By: MAXINE DEL CASTILLO Comment: Followed by Dr. Vee endocrinologyJul 30, 2022 Entered By: MAXINE DEL CASTILLO Comment: Iodine treatment 2019 [place] [facility] Knee Pain Active Condition [place] [facility] Pain in joint involving shoulder region (ICD-9-CM 719.41) Active Condition [place] [facility] Pancytopenia Active Condition Jul 31, 2023 Entered By: MAXINE DEL CASTILLO Comment: hem onco consult [place] [facility] Postsurgical arthrodesis status (ICD-9-CM V45.4) Active Condition [place] [facility] Prostate carcinoma (SNOMED CT 791226863) Active Condition Jul 30, 2022 Entered By: MAXINE DEL CASTILLO Comment: Treated by Dr. Monahan, who follows his PSA last 1 was [id number] Entered By: MAXINE DEL CASTILLO Comment: mets to back spine [place] [facility] Retention of Urine (SCT 781725272) Active Condition Mar 09, 2023 Entered By: MAXINE DEL CASTILLO Comment: [facility], patisusann also has hematuria [place] [facility] Vitamin D below reference range Active Condition [place] [facility] Cough (ICD-9-CM 786.2) Inactive Condition 09/18/2020 [place] [facility] Issue of Repeat Prescriptions (ICD-9-CM V68.1) Inactive Condition 09/18/2020 [facility] Laboratory Procedures (ICD-9-CM V72.6) Inactive Condition 09/18/2020 [facility] Nausea * (ICD-9-CM 787.02) Inactive Condition 09/18/2020 [place] [facility] Nausea with Vomiting (ICD-9-CM 787.01) Inactive Condition 09/18/2020 [place] [facility] Patellar tendinitis (ICD-9-CM 726.64) Inactive Condition 09/18/2020 [place] [facility] Routine General Medical Examination at a Health Care Facility * (ICD-9-CM V70.0) Inactive Condition 09/18/2020 [facility] Sprains and strains of wrist and hand (ICD-9-CM 842.09) Inactive Condition 09/18/2020 [place] [facility] URI (ICD-9-CM 465.9) Inactive Condition 09/18/2020 [place] [facility] Diagnosis: ICD-10-CM Z00.01 Encounter for general adult medical exam w abnormal findings Active Diagnosis [facility] Medications Combined [...] DAY ORAL ACTIVE ROSENDO DEL CASTILLO 2021 [facility] ALBUTEROL (CFC-F) INHL,ORAL INHALE BY ORAL INHALATI ON FOUR TIMES A DAY RESPIR ATORY (INHAL ATION) ACTIVE MINNA WALLER 2013 [facility] ALBUTEROL SO4 90MCG/ACTUA T (CFC-F) INHL,ORAL,8 .5GM INHALE 1 PUFF BY ORAL INHALATI ON FOUR TIMES A DAY NEEDED RESPIR ATORY (INHAL ATION) ACTIVE ROSENDO DEL CASTILLO 2021 [facility] ALFUZOSIN HCL 10MG TAB,SA TAKE ONE TABLET BY MOUTH AT BEDTIME ORAL ACTIVE NILDA GRIJALVA 2010 [facility] APIXABAN 5MG TAB TAKE ONE TABLET BY MOUTH TWICE A DAY ORAL ACTIVE ROSENDO DEL CASTILLO 2021 [place] [place] ASPIRIN 81MG TAB,EC TAKE ONE TABLET BY MOUTH ONCE A DAY ORAL ACTIVE LISCOLEMAN AmbrosioNILDA 2010 [facility] ATORVASTATI N CA 80MG TAB TAKE ONE TABLET BY MOUTH EVERY EVENING ORAL ACTIVE LISCOLEMAN AmbrosioNILDA 2010 [facility] CALCIUM 250MG/VITAM IN D 125UNT TAB TAKE 1 TABLET BY MOUTH ONCE A DAY FOR CALCIUM SUPPLEME NTATION TAKE WITH FOOD ORAL DISCONT INUED BY PROVIDE R 07/31/2024 [id number] 4 ROSENDO DEL CASTILLO R 2023 100 [facility] CARBAMAZEPI NE 200MG TAB TAKE ONE-HALF TABLET BY MOUTH TWICE A DAY ORAL ACTIVE ROSENDO DEL CASTILLO R 2022 [facility] CETIRIZINE HCL 10MG TAB TAKE ONE TABLET BY MOUTH ONCE A DAY ORAL ACTIVE DEE ALEXANDER 2015 [place] [facility] CHOLECALCIF MINDY 50MCG (2,000UNIT) TAB TAKE TWO TABLETS BY MOUTH ONCE A DAY FOR VITAMIN D DEFICIEN CY ORAL DISCONT INUED BY PROVIDE R 07/31/2024 [id number] 4 ROSENDO DEL CASTILLO R 2023 200 [facility] CYCLOBENZAP RINE HCL 10MG TAB TAKE ONE TABLET BY MOUTH THREE TIMES A DAY NEEDED ORAL ACTIVE ROSENDO DEL CASTILLO R 2021 [facility] DOXYCYCLINE HYCLATE 100MG TAB TAKE ONE TABLET BY MOUTH TWICE A DAY ORAL ACTIVE ROSENDO DEL CASTILLO R 2021 [facility] EMPAGLIFLOZ IN 25MG TAB TAKE ONE-HALF TABLET BY MOUTH ONCE A DAY ORAL ACTIVE ROSENDO DEL CASTILLO R 2021 [facility] ESOMEPRAZOL E MAGNESIUM 40MG CAP,EC TAKE 1 CAPSULE BY MOUTH TWICE A DAY ORAL ACTIVE ROSENDO DEL CASTILLO R 2021 [facility] ESOMEPRAZOL E MAGNESIUM 40MG CAP,EC TAKE 1 CAPSULE BY MOUTH TWICE A DAY ORAL ACTIVE ROSENDO DEL CASTILLO R 2022 [facility] EZETIMIBE TAB TAKE BY MOUTH ONCE A DAY ORAL ACTIVE MINNA WALLER 2013 [place] [facility] FLUTICASONE 100/UMECLID INIUM 62.5/VILANT MINDY 25MCG/ACTUA T INH,30 INHALE 1 PUFF ORAL INHALATI ON ONCE A DAY RESPIR ATORY (INHAL ATION) ACTIVE MAGDALENEROSENDO Capri 2021 [place] [facility] FLUTICASONE 500MCG/SALM ETEROL 50MCG INHL,ORAL,D ISKUS,60 INHALE 1 INHALATI ON BY ORAL INHALATI ON TWICE A DAY RESPIR ATORY (INHAL ATION) ACTIVE DEE ALEXANDER 2015 [place] [facility] FUROSEMIDE 20MG TAB TAKE ONE TABLET BY MOUTH EVERY MORNING ORAL ACTIVE MAGDALENEROSENDO Capri 2021 [place] [facility] GABAPENTIN 300MG CAP TAKE 1 CAPSULE BY MOUTH THREE TIMES A DAY NEEDED ORAL ACTIVE MAGDALENERSOENDO Capri 2021 [place] [facility] GLIPIZIDE 5MG TAB TAKE ONE-HALF TABLET BY MOUTH ONCE A DAY ORAL ACTIVE MAGDALENEROSENDO Capri 2022 [place] [facility] HYDROCODONE 5MG/ACETAMI NOPHEN 325MG TAB TAKE ONE TABLET BY MOUTH EVERY 6 HOURS NEEDED ORAL ACTIVE MAGDALENEROSENDO Capri 2021 [place] [facility] IPRATROPIUM MDI INHL,ORAL INHALE BY ORAL INHALATI ON FOUR TIMES A DAY RESPIR ATORY (INHAL ATION) ACTIVE MINNA WALLER 2013 [place] [facility] LEVOTHYROXI NE NA 175MCG TAB (SYNTHROID) TAKE ONE TABLET BY MOUTH EVERY MORNING BEFORE A MEAL ORAL ACTIVE MAGDALENEROSENDO Capri 2021 [place] [facility] METOCLOPRAM REINA HCL 10MG TAB TAKE ONE-HALF TABLET BY MOUTH THREE TIMES A DAY ORAL ACTIVE MAGDALENEROSENDO Capri 2022 [place] [facility] METOPROLOL SUCCINATE 50MG TAB,SA TAKE ONE-HALF TABLET BY MOUTH ONCE A DAY ORAL ACTIVE DEE ALEXANDER 2015 [place] [facility] MONTELUKAST NA 10MG TAB TAKE ONE TABLET BY MOUTH EVERY EVENING ORAL ACTIVE NILDA GRIJALVA 2010 [place] [facility] NITROGLYCER IN TAB,SUBLING UAL DISSOLVE UNDER THE TONGUE ONE-TIME SUBLIN GUAL ACTIVE DEE ALEXANDER 2015 [facility] ONDANSETRON HCL 8MG TAB TAKE ONE-HALF TABLET BY MOUTH THREE TIMES A DAY NEEDED ORAL ACTIVE RUTJOELLENROSENDO Farooq 2022 [facility] PREDNISONE 5MG TAB TAKE ONE TABLET BY MOUTH EVERY MORNING ORAL ACTIVE MAGDALENEFeb [facility] PROBIOTIC COMBINATION CAP/TAB TAKE 1 CAPSULE BY MOUTH ONCE A DAY ORAL ACTIVE IRAIDASanjeevFeb [facility] PROCHLORPER AZINE MALEATE 10MG TAB TAKE ONE TABLET BY MOUTH FOUR TIMES A DAY ORAL ACTIVE MAGDALENEFeb [facility] SITAGLIPTIN PHOSPHATE 100MG TAB TAKE ONE TABLET BY MOUTH ONCE A DAY ORAL ACTIVE URTJOELLENFeb [facility] TERBINAFINE HCL 250MG TAB TAKE ONE TABLET BY MOUTH ONCE A DAY ORAL ACTIVE MAGDALENEFeb [facility] TRIAMCINOLO NE ACETONIDE 0.1% CREAM,TOP APPLY SPARINGL Y TO AFFECTED AREA(S) TWICE A DAY TOPICA L ACTIVE MAGDALENEFeb [facility] Allergies, Adverse Reactions, Alerts Combined list of allergies from Department of Defense and Veterans Affairs facilities. It does not include entries that were removed or entered in error. Substance Category Reaction Severity Reaction type Status Date Reported Comments Source VANCOMYCIN Propensity to adverse reactions to drug (finding) active 4 [facility] Immunizations Combined list of available immunizations from the Department of Defense and Veterans Affairs facilities. Immunization Series Date Given Administered By Site Reaction Lot Number CVX Code Drug Canteen Operator Status Comments Source PNEUMOCOCCAL CONJUGATE PCV20, POLYSACCHARID E [id number] CONJUGATE, ADJUVANT, PF 3 2024 216 complet ed HISTORICA L INFORMATI ON - FROM OTHER REGISTRY, [facility] COVID-19 (PFIZER), MRNA, LNP-S, PF, DANIELLE-SUCROSE, 30 MCG/0.3 ML (AGES 12+ YEARS) 7 2023 309 complet ed HISTORICA L INFORMATI ON - [facility] OTHER [facility], [facility] INFLUEN[facility], ADJUVANTED, TRIVALENT, PF 8 2023 168 complet ed HISTORICA L INFORMATI ON - FROM OTHER [facility], [facility] COVID-19 (PFIZER), MRNA, LNP-S, PF, DANIELLE-SUCROSE, 30 MCG/0.3 ML (AGES 12+ YEARS) 5 2022 309 complet ed HISTORICA L INFORMATI ON - FROM OTHER REGISTRY, [facility] INFLUENZA, HIGH-DOSE, QUADRIVALENT 7 2022 197 complet ed HISTORICA L INFORMATI ON - FROM OTHER [facility], [facility] INFLU[facility], UNSPECIFIED FORMULATION 2022 88 complet ed HISTORICA L INFORMATI ON - FROM PATIENT'S RECALL, [facility] RSV, BIVALENT, PROTEIN SUBUNIT RSVPREF, DILUENT RECONSTITUTED , 0.5 ML, PF 1 2022 305 complet ed HISTORICA L INFORMATI ON - FROM OTHER [facility], [facility] ZOSTER RECOMBINANT 2022 FAMIL[facility] MORAN LEFT DELTO ID [id number] 187 complet ed [facility] PNEUMOCOCCAL POLYSACCHARID E PPV23 2022 33 complet ed HISTORICA L INFORMATI ON - FROM OTHER REGISTRY, [facility] COVID-19 (MODERNA), MRNA, LNP-S, BIVALENT, PF, 50 MCG/0.5 ML OR 25MCG/0.25 ML DOSE 4 2021 229 complet ed HISTORICA L INFORMATI ON - FROM OTHER REGISTRY, [facility] INFLUENZA, HIGH-DOSE, QUADRIVALENT 6 2021 197 complet ed HISTORICA L INFORMATI ON - FROM OTHER REGISTRY, [facility] COVID-19 (MODERNA), MRNA, LNP-S, PF, 100 MCG/0.5ML DOSE OR 50 MCG/0.25ML DOSE 4 2021 207 complet ed MOD; [id number]; 2 [facility] INFLUENZA, INJECTABLE, QUADRIVALENT, PRESERVATIVE FREE 5 2020 150 complet ed HISTORICA L INFORMATI ON - FROM OTHER REGISTRY, [facility] COVID-19 (MODERNA), MRNA, LNP-S, PF, 100 MCG/0.5ML DOSE OR 50 MCG/0.25ML DOSE 3 2020 207 complet ed [facility] COVID-19 (MODERNA), MRNA, LNP-S, PF, 100 MCG/0.5 ML DOSE 2 2020 207 complet ed [facility] COVID-19 (MODERNA), MRNA, LNP-S, PF, 100 MCG/0.5 ML DOSE 1 2020 207 complet ed [facility] INFLUENZA, INJECTABLE, QUADRIVALENT, PRESERVATIVE FREE 4 2019 150 complet ed HISTORICA L INFORMATI ON - FROM OTHER REGISTRY, [facility] INFLUENZA, UNSPECIFIED FORMULATION 2019 88 complet ed [facility] INFLUENZA, TRIVALENT, ADJUVANTED 3 2018 168 complet ed HISTORICA L INFORMATI ON - FROM OTHER REGISTRY, [facility] INFLUENZA, UNSPECIFIED FORMULATION 2018 88 complet ed [facility] PHARMAC IES PNEUMOCOCCAL POLYSACCHARID E PPV23 1 2017 33 complet ed HISTORICA L INFORMATI ON - FROM OTHER REGISTRY, [facility] PNEUMOCOCCAL POLYSACCHARID E PPV23 2017 33 complet ed [facility] INFLUENZA, UNSPECIFIED FORMULATION 2016 88 complet ed [facility] TD(ADULT) UNSPECIFIED FORMULATION 2016 139 complet ed Not sure of location was written on vaccinati on log [facility] INFLUENZA, UNSPECIFIED FORMULATION 2015 88 complet ed [facility] INFLUENZA, UNSPECIFIED FORMULATION 2014 88 complet ed [facility] PNEUMOCOCCAL CONJUGATE PCV 13 2014 133 complet ed [facility] INFLUENZA, SEASONAL, INJECTABLE 2 2013 141 complet ed HISTORICA L INFORMATI ON - FROM OTHER REGISTRY, [facility] INFLUENZA, UNSPECIFIED FORMULATION 2013 88 complet ed [facility] INFLUENZA, SEASONAL, INJECTABLE 1 2012 141 complet ed HISTORICA L INFORMATI ON - FROM OTHER REGISTRY, [facility] INFLUENZA, UNSPECIFIED FORMULATION 2012 88 complet ed [facility] PNEUMOCOCCAL POLYSACCHARID E PPV23 2012 33 complet ed no- has written record [facility] INFLUENZA, UNSPECIFIED FORMULATION 2011 88 complet ed [facility] INFLUENZA, UNSPECIFIED FORMULATION 2010 88 complet ed [facility] INFLUENZA, UNSPECIFIED FORMULATION 2009 88 complet ed [facility] INFLUENZA, UNSPECIFIED FORMULATION 2008 88 complet ed [facility] TDAP 2008 115 complet ed [facility] INFLUENZA (HISTORICAL) 2007 88 complet ed [facility] INFLUENZA, UNSPECIFIED FORMULATION 2006 88 complet ed [facility] PNEUMOCOCCAL, UNSPECIFIED FORMULATION 2006 109 complet ed Left Deltoid [facility] INFLUENZA, UNSPECIFIED FORMULATION 2006 88 complet ed [facility] OUTSIDE PNEUMOVAX (HISTORICAL) 2006 109 complet ed [facility] INFLUENZA (HISTORICAL) 2005 88 complet ed [facility] INFLUENZA, UNSPECIFIED FORMULATION 2004 88 complet ed [facility] INFLUENZA (HISTORICAL) 2003 88 complet ed [facility] Results Combined list of recent [...] 03:04 PM Reporting Lab: [place] [facility] [address] [place] [address] Performin g Lab: [place] [facility] [address] [place] [address] [facility] CBC LEUKOCYTES [#/VOLUME] IN BLOOD BY AUTOMATED COUNT 3.6 10*3/u L 3.6 - 11.2 09/05 Specimen Type: BLOOD No comment entered. Ordering Provider: ROSENDO DEL CASTILLO Report Released Date/Time : Sep 02, 2024 03:04 PM Reporting Lab: [place] [facility] [address] [place] [address] Performin g Lab: [place] [facility] [address] [place] [address] [facility] CBC ERYTHROCYTES [#/VOLUME] IN BLOOD BY AUTOMATED COUNT 3.70 10*6/u L 4.10 - 5.70 09/05 L Specimen Type: BLOOD No comment entered. Ordering Provider: ROSENDO DEL CASTILLO Report Released Date/Time : Sep 02, 2024 03:04 PM Reporting Lab: [place] [facility] [address] [place] [address] Performin g Lab: [place] [facility] [address] [place] [address] [facility] CBC HEMOGLOBIN [MASS/VOLUME] IN BLOOD 11.9 g/dL 13.1 - 16.8 09/05 L Specimen Type: BLOOD No comment entered. Ordering Provider: ROSENDO DEL CASTILLO Report Released Date/Time : Sep 02, 2024 03:04 PM Reporting Lab: [place] [facility] [address] [place] [address] Performin g Lab: [place] [facility] [address] [place] [address] [facility] CBC HEMATOCRIT [VOLUME FRACTION] OF BLOOD 38.0 38.2 - 48.4 09/05 L Specimen Type: BLOOD No comment entered. Ordering Provider: ROSENDO DEL CASTILLO Report Released Date/Time : Sep 02, 2024 03:04 PM Reporting Lab: [place] [facility] [address] [place] [address] Performin g Lab: [place] [facility] [address] [place] [address] [facility] CBC MCV [ENTITIC VOLUME] BY AUTOMATED COUNT 102.7 fL 80.0 - 100.0 09/05 H Specimen Type: BLOOD No comment entered. Ordering Provider: ROSENDO DEL CASTILLO Report Released Date/Time : Sep 02, 2024 03:04 PM Reporting Lab: [place] [facility] [address] [place] [address] Performin g Lab: [place] [facility] [address] [place] [address] [facility] CBC MCH [ENTITIC MASS] BY AUTOMATED COUNT 32.2 pg 27.0 - 34.0 09/05 Specimen Type: BLOOD No comment entered. Ordering Provider: ROSENDO DEL CASTILLO Report Released Date/Time : Sep 02, 2024 03:04 PM Reporting Lab: [place] [facility] [address] [place] [address] Performin g Lab: [place] [facility] [address] [place] [address] [facility] CBC MCHC [MASS/VOLUME] BY AUTOMATED COUNT 31.3 g/dL 33.0 - 36.0 09/05 L Specimen Type: BLOOD No comment entered. Ordering Provider: ROSENDO DEL CASTILLO Report Released Date/Time : Sep 02, 2024 03:04 PM Reporting Lab: [place] [facility] [address] [place] [address] Performin g Lab: [place] [facility] [address] [place] [address] [facility] CBC PLATELETS [#/VOLUME] IN BLOOD BY AUTOMATED COUNT 213 10*3/u L 150 - 400 09/05 Specimen Type: BLOOD No comment entered. Ordering Provider: ROSENDO DEL CASTILLO Report Released Date/Time : Sep 02, 2024 03:04 PM Reporting Lab: [place] [facility] [address] [place] [address] Performin g Lab: [place] [facility] [address] [place] [address] [facility] CBC PLATELET MEAN VOLUME [ENTITIC VOLUME] IN BLOOD BY AUTOMATED COUNT 11.0 fL 7.5 - 11.2 09/05 Specimen Type: BLOOD No comment entered. Ordering Provider: ROSENDO DEL CASTILLO Report Released Date/Time : Sep 02, 2024 03:04 PM Reporting Lab: [place] [facility] [address] [place] [address] Performin g Lab: [place] [facility] [address] [place] [address] [facility] CBC ERYTHROCYTE DISTRIBUTION WIDTH [RATIO] BY AUTOMATED COUNT 13.8 11.8 - 15.1 09/05 Specimen Type: BLOOD No comment entered. Ordering Provider: ROSENDO DEL CASTILLO Report Released Date/Time : Sep 02, 2024 03:04 PM Reporting Lab: [place] [facility] [address] [place] [address] Performin g Lab: [place] [facility] [address] [place] [address] [facility] CBC LYMPHOCYTES/1 00 LEUKOCYTES IN BLOOD BY AUTOMATED COUNT 19.3 09/05 Specimen Type: BLOOD No comment entered. Ordering Provider: ROSENDO DEL CASTILLO Report Released Date/Time : Sep 02, 2024 03:04 PM Reporting Lab: [place] [facility] [address] [place] [address] Performin g Lab: [place] [facility] [address] [place] [address] [facility] CBC MONOCYTES/100 LEUKOCYTES IN BLOOD BY AUTOMATED COUNT 13.7 09/05 Specimen Type: BLOOD No comment entered. Ordering Provider: ROSENDO DEL CASTILLO Report Released Date/Time : Sep 02, 2024 03:04 PM Reporting Lab: [place] [facility] [address] [place] [address] Performin g Lab: [place] [facility] [address] [place] [address] [facility] CBC NEUTROPHILS/1 00 LEUKOCYTES IN BLOOD BY AUTOMATED COUNT 63.4 09/05 Specimen Type: BLOOD No comment entered. Ordering Provider: ROSENDO DEL CASTILLO Report Released Date/Time : Sep 02, 2024 03:04 PM Reporting Lab: [place] [facility] [address] [place] [address] Performin g Lab: [place] [facility] [address] [place] [address] [facility] CBC EOSINOPHILS/1 00 LEUKOCYTES IN BLOOD BY AUTOMATED COUNT 1.1 09/05 Specimen Type: BLOOD No comment entered. Ordering Provider: ROSENDO DEL CASTILLO Report Released Date/Time : Sep 02, 2024 03:04 PM Reporting Lab: [place] [facility] [address] [place] [address] Performin g Lab: [place] [facility] [address] [place] [address] [facility] CBC BASOPHILS/100 LEUKOCYTES IN BLOOD BY AUTOMATED COUNT 1.1 09/05 Specimen Type: BLOOD No comment entered. Ordering Provider: ROSENDO DEL CASTILLO Report Released Date/Time : Sep 02, 2024 03:04 PM Reporting Lab: [place] [facility] [address] [place] [address] Performin g Lab: [place] [facility] [address] [place] [address] [facility] CBC LYMPHOCYTES [#/VOLUME] IN BLOOD BY AUTOMATED COUNT 0.69 10*3/u L 0.77 - 4.50 09/05 L Specimen Type: BLOOD No comment entered. Ordering Provider: ROSENDO DEL CASTILLO Report Released Date/Time : Sep 02, 2024 03:04 PM Reporting Lab: [place] [facility] [address] [place] [address] Performin g Lab: [place] [facility] [address] [place] [address] [facility] CBC MONOCYTES [#/VOLUME] IN BLOOD BY AUTOMATED COUNT 0.49 10*3/u L 0.19 - 0.8 09/05 Specimen Type: BLOOD No comment entered. Ordering Provider: ROSENDO DEL CASTILLO Report Released Date/Time : Sep 02, 2024 03:04 PM Reporting Lab: [place] [facility] [address] [place] [address] Performin g Lab: [place] [facility] [address] [place] [address] [facility] CBC NEUTROPHILS [#/VOLUME] IN BLOOD BY AUTOMATED COUNT 2.27 10*3/u L 2.10 - 8.00 09/05 Specimen Type: BLOOD No comment entered. Ordering Provider: ROSENDO DEL CASTILLO Report Released Date/Time : Sep 02, 2024 03:04 PM Reporting Lab: [place] [facility] [address] [place] [address] 8 Performin g Lab: [place] [facility] [address] [place] [address] [facility] CBC EOSINOPHILS [#/VOLUME] IN BLOOD BY AUTOMATED COUNT 0.04 10*3/u L 0.00 - 0.60 09/05 Specimen Type: BLOOD No comment entered. Ordering Provider: ROSENDO DEL CASTILLO Report Released Date/Time : Sep 02, 2024 03:04 PM Reporting Lab: [place] [facility] [address] [place] [address] 8 Performin g Lab: [place] [facility] [address] [place] [address] 8 [facility] CBC BASOPHILS [#/VOLUME] IN BLOOD BY AUTOMATED COUNT 0.04 10*3/u L 0.00 - 0.20 09/05 Specimen Type: BLOOD No comment entered. Ordering Provider: ROSENDO DEL CASTILLO Report Released Date/Time : Sep 02, 2024 03:04 PM Reporting Lab: [place] [facility] [address] [place] [address] 8 Performin g Lab: [place] [facility] [address] [place] [address] 8 [facility] CBC IMMATURE GRANULOCYTES/ 100 LEUKOCYTES IN BLOOD BY AUTOMATED COUNT 1.4 09/05 Specimen Type: BLOOD No comment entered. Ordering Provider: ROSENDO DEL CASTILLO Report Released Date/Time : Sep 02, 2024 03:04 PM Reporting Lab: [place] [facility] [address] [place] [address] 8 Performin g Lab: [place] [facility] [address] [place] [address] 8 [facility] CBC IMMATURE GRANULOCYTES [#/VOLUME] IN BLOOD BY AUTOMATED COUNT 0.05 10*3/u L 0.00 - 0.05 09/05 Specimen Type: BLOOD No comment entered. Ordering Provider: ROSENDO DEL CASTILLO Report Released Date/Time : Sep 02, 2024 03:04 PM Reporting Lab: [place] [facility] [address] [place] [address] 8 Performin g Lab: [place] [facility] [address] [place] [address] 8 [facility] CHOLESTEROL PANEL (PB) CHOLESTEROL [MASS/VOLUME] IN SERUM OR PLASMA 135 mg/dL 0 - 200 09/05 Specimen Type: PLASMA No comment entered. Ordering Provider: ROSENDO DEL CASTILLO Report Released Date/Time : Sep 02, 2024 03:04 PM Reporting Lab: [place] [facility] [address] [place] [address] 8 Performin g Lab: [place] [facility] [address] [place] [address] 8 [facility] CHOLESTEROL PANEL (PB) TRIGLYCERIDE [MASS/VOLUME] IN SERUM OR PLASMA 95 mg/dL 0 - 150 09/05 Specimen Type: PLASMA No comment entered. Ordering Provider: ROSENDO DEL CASTILLO Report Released Date/Time : Sep 02, 2024 03:04 PM Reporting Lab: [place] [facility] [address] [place] [address] 8 Performin g Lab: [place] [facility] [address] [place] [address] 8 [facility] CHOLESTEROL PANEL (PB) CHOLESTEROL IN LDL [MASS/VOLUME] IN SERUM OR PLASMA BY CALCULATION 75.3 mg/dL 09/05 Specimen Type: PLASMA No comment entered. Ordering Provider: ROSENDO DEL CASTILLO Report Released Date/Time : Sep 02, 2024 03:04 PM Reporting Lab: [place] [facility] [address] [place] [address] 8 Performin g Lab: [place] [facility] [address] [place] [address] 8 [facility] CHOLESTEROL PANEL (PB) CHOLESTEROL IN HDL [MASS/VOLUME] IN SERUM OR PLASMA 40.7 mg/dL 40 09/05 H Specimen Type: PLASMA No comment entered. Ordering Provider: ROSENDO DEL CASTILLO Report Released Date/Time : Sep 02, 2024 03:04 PM Reporting Lab: [place] [facility] [address] [place] [address] 8 Performin g Lab: [place] [facility] [address] [place] [address] 8 [facility] CHOLESTEROL PANEL (PB) CHOLESTEROL IN HDL/CHOLESTER OL.TOTAL [MASS RATIO] IN SERUM OR PLASMA 30.1 25 09/05 Specimen Type: PLASMA No comment entered. Ordering Provider: ROSENDO DEL CASTILLO Report Released Date/Time : Sep 02, 2024 03:04 PM Reporting Lab: [place] [facility] [address] [place] [address] 8 Performin g Lab: [place] [facility] [address] [place] [address] 8 [facility] COMPREHENSI VE METABOLIC PANEL CREATININE [MASS/VOLUME] IN SERUM OR PLASMA 0.89 mg/dL 0.7 - 1.3 09/05 Specimen Type: PLASMA No comment entered. Ordering Provider: ROSENDO DEL CASTILLO Report Released Date/Time : Sep 02, 2024 03:04 PM Reporting Lab: [place] [facility] [address] [place] [address] 8 Performin g Lab: [place] [facility] [address] [place] [address] 8 [facility] COMPREHENSI VE METABOLIC PANEL UREA NITROGEN [MASS/VOLUME] IN SERUM OR PLASMA 16 mg/dL 9 - 25 09/05 Specimen Type: PLASMA No comment entered. Ordering Provider: ROSENDO DEL CASTILLO Report Released Date/Time : Sep 02, 2024 03:04 PM Reporting Lab: [place] [facility] [address] [place] [address] 8 Performin g Lab: [place] [facility] [address] [place] [address] 8 [facility] COMPREHENSI VE METABOLIC PANEL GLUCOSE [MASS/VOLUME] IN SERUM OR PLASMA 137 mg/dL 72 - 99 09/05 H Specimen Type: PLASMA No comment entered. Ordering Provider: ROSENDO DEL CASTILLO Report Released Date/Time : Sep 02, 2024 03:04 PM Reporting Lab: [place] [facility] [address] [place] [address] 8 Performin g Lab: [place] [facility] [address] [place] [address] 8 [facility] COMPREHENSI VE METABOLIC PANEL SODIUM [MOLES/VOLUME ] IN SERUM OR PLASMA 140 meq/L 136 - 145 09/05 Specimen Type: PLASMA No comment entered. Ordering Provider: ROSENDO DEL CASTILLO Report Released Date/Time : Sep 02, 2024 03:04 PM Reporting Lab: [place] [facility] [address] [place] [address] 8 Performin g Lab: [place] [facility] [address] [place] [address] 8 [facility] COMPREHENSI VE METABOLIC PANEL POTASSIUM [MOLES/VOLUME ] IN SERUM OR PLASMA 3.8 meq/L 3.5 - 5 09/05 Specimen Type: PLASMA No comment entered. Ordering Provider: ROSENDO DEL CASTILLO Report Released Date/Time : Sep 02, 2024 03:04 PM Reporting Lab: [place] [facility] [address] [place] [address] 8 Performin g Lab: [place] [facility] [address] [place] [address] 8 [facility] COMPREHENSI VE METABOLIC PANEL CHLORIDE [MOLES/VOLUME ] IN SERUM OR PLASMA 100 meq/L 98 - 107 09/05 Specimen Type: PLASMA No comment entered. Ordering Provider: ROSENDO DEL CASTILLO Report Released Date/Time : Sep 02, 2024 03:04 PM Reporting Lab: [place] [facility] [address] [place] [address] 8 Performin g Lab: [place] [facility] [address] [place] [address] [facility] COMPREHENSI VE METABOLIC PANEL CARBON DIOXIDE, TOTAL [MOLES/VOLUME ] IN SERUM OR PLASMA 30 meq/L 22 - 31 09/05 Specimen Type: PLASMA No comment entered. Ordering Provider: ROSENDO DEL CASTILLO Report Released Date/Time : Sep 02, 2024 03:04 PM Reporting Lab: [place] [facility] [address] [place] [address] 8 Performin g Lab: [place] [facility] [address] [place] [address] 8 [facility] COMPREHENSI VE METABOLIC PANEL CALCIUM [MASS/VOLUME] IN SERUM OR PLASMA 9.1 mg/dL 8.4 - 10.4 09/05 Specimen Type: PLASMA No comment entered. Ordering Provider: ROSENDO DEL CASTILLO Report Released Date/Time : Sep 02, 2024 03:04 PM Reporting Lab: [place] [facility] [address] [place] [address] 8 Performin g Lab: [place] [facility] [address] [place] [address] 8 [facility] COMPREHENSI VE METABOLIC PANEL PROTEIN [MASS/VOLUME] IN SERUM OR PLASMA 6.9 g/dL 6 - 8.6 09/05 Specimen Type: PLASMA No comment entered. Ordering Provider: ROSENDO DEL CASTILLO Report Released Date/Time : Sep 02, 2024 03:04 PM Reporting Lab: [place] [facility] [address] [place] [address] 8 Performin g Lab: [place] [facility] [address] [place] [address] 8 [facility] COMPREHENSI VE METABOLIC PANEL ALBUMIN [MASS/VOLUME] IN SERUM OR PLASMA 3.6 g/dL 3.4 - 5 09/05 Specimen Type: PLASMA No comment entered. Ordering Provider: ROSENDO DEL CASTILLO Report Released Date/Time : Sep 02, 2024 03:04 PM Reporting Lab: [place] [facility] [address] [place] [address] 8 Performin g Lab: [place] [facility] [address] [place] [address] [facility] COMPREHENSI VE METABOLIC PANEL BILIRUBIN.TOT AL [MASS/VOLUME] IN SERUM OR PLASMA 0.3 mg/dL 0.2 - 1.2 09/05 Specimen Type: PLASMA No comment entered. Ordering Provider: ROSENDO DEL CASTILLO Report Released Date/Time : Sep 02, 2024 03:04 PM Reporting Lab: [place] [facility] [address] [place] [address] 8 Performin g Lab: [place] [facility] [address] [place] [address] 8 [facility] COMPREHENSI VE METABOLIC PANEL ALKALINE PHOSPHATASE [ENZYMATIC ACTIVITY/VOLU ME] IN SERUM OR PLASMA 62 U/L 40 - 150 09/05 Specimen Type: PLASMA No comment entered. Ordering Provider: ROSENDO DEL CASTILLO Report Released Date/Time : Sep 02, 2024 03:04 PM Reporting Lab: [place] [facility] [address] [place] [address] 8 Performin g Lab: [place] [facility] [address] [place] [address] [facility] COMPREHENSI VE METABOLIC PANEL ASPARTATE AMINOTRANSFER ASE [ENZYMATIC ACTIVITY/VOLU ME] IN SERUM OR PLASMA 11 U/L 5 - 34 09/05 Specimen Type: PLASMA No comment entered. Ordering Provider: ROSENDO DEL CASTILLO Report Released Date/Time : Sep 02, 2024 03:04 PM Reporting Lab: [place] [facility] [address] [place] [address] 8 Performin g Lab: [place] [facility] [address] [place] [address] [facility] COMPREHENSI VE METABOLIC PANEL ALANINE AMINOTRANSFER ASE [ENZYMATIC ACTIVITY/VOLU ME] IN SERUM OR PLASMA <7U/L 8 - 40 09/05 L Specimen Type: PLASMA No comment entered. Ordering Provider: ROSENDO DEL CASTILLO Report Released Date/Time : Sep 02, 2024 03:04 PM Reporting Lab: [place] [facility] [address] [place] [address] 8 Performin g Lab: [place] [facility] [address] [place] [address] [facility] COMPREHENSI VE METABOLIC PANEL GLOMERULAR FILTRATION RATE/1.73 SQ M.PREDICTED [VOLUME RATE/AREA] IN SERUM, PLASMA OR BLOOD BY CREATININE-BA SED FORMULA (CKD-EPI 2020) 87 09/05 Specimen Type: PLASMA No comment entered. Ordering Provider: ROSENDO DEL CASTILLO Report Released Date/Time : Sep 02, 2024 03:04 PM Reporting Lab: [place] [facility] [address] [place] [address] 8 Performin g Lab: [place] [facility] [address] [place] [address] [facility] FOLATE (PB) FOLATE [MASS/VOLUME] IN SERUM OR PLASMA 3.5 ng/mL 7 - 20 09/05 L Specimen Type: SERUM No comment entered. Ordering Provider: ROSENDO DEL CASTILLO Report Released Date/Time : Sep 02, 2024 03:04 PM Reporting Lab: [place] [facility] [address] [place] [address] 8 Performin g Lab: [place] [facility] [address] [place] [address] 8 [facility] HGA1C HEMOGLOBIN A1C/HEMOGLOBI N.TOTAL IN BLOOD 6.9 4.0 - 6.0 09/05 H Specimen Type: BLOOD No comment entered. Ordering Provider: ROSENDO DEL CASTILLO Report Released Date/Time : Sep 02, 2024 03:04 PM Reporting Lab: [place] [facility] [address] [place] [address] 8 Performin g Lab: [place] [facility] [address] [place] [address] 8 [facility] TSH (MA-PB) THYROTROPIN [UNITS/VOLUME ] IN SERUM OR PLASMA 3.679 u[IU]/ mL 0.47 - 5 09/05 Specimen Type: SERUM No comment entered. Ordering Provider: ROSENDO DEL CASTILLO Report Released Date/Time : Sep 02, 2024 03:04 PM Reporting Lab: [place] [facility] [address] [place] [address] 8 Performin g Lab: [place] [facility] [address] [place] [address] [facility] URINE ALBUMIN PROFILE-ih (PB) ALBUMIN [MASS/VOLUME] IN URINE 271.42 mg/L 09/05 Specimen Type: URINE No comment entered. Ordering Provider: ROSENDO DEL CASTILLO Report Released Date/Time : Sep 02, 2024 03:04 PM Reporting Lab: [place] [facility] [address] [place] [address] 8 Performin g Lab: [place] [facility] [address] [place] [address] [facility] URINE ALBUMIN PROFILE-ih (PB) ALBUMIN/CREAT ININE [MASS RATIO] IN URINE 431.78 mg/g 0 - 30 09/05 H Specimen Type: URINE No comment entered. Ordering Provider: ROSENDO DEL CASTILLO Report Released Date/Time : Sep 02, 2024 03:04 PM Reporting Lab: [place] [facility] [address] [place] [address] 8 Performin g Lab: [place] [facility] [address] [place] [address] [facility] URINE ALBUMIN PROFILE-ih (PB) CREATININE [MASS/VOLUME] IN URINE 62.86 mg/dL 09/05 Specimen Type: URINE No comment entered. Ordering Provider: ROSENDO DEL CASTILLO Report Released Date/Time : Sep 02, 2024 03:04 PM Reporting Lab: [place] [facility] [address] [place] [address] 8 Performin g Lab: [place] [facility] [address] [place] [address] [facility] VITAMIN D, 25-HYDROXY 25-HYDROXYVIT HANNON D3 [MASS/VOLUME] IN SERUM OR PLASMA 90.5 ng/mL 30 - 96 09/05 Specimen Type: SERUM No comment entered. Ordering Provider: ROSENDO DEL CASTILLO Report Released Date/Time : Sep 02, 2024 03:04 PM Reporting Lab: [place] [facility] [address] [place] [address] 8 Performin g Lab: [place] [facility] [address] [place] [address] [facility] HGA1C HEMOGLOBIN A1C/HEMOGLOBI N.TOTAL IN BLOOD 9.4 4.0 - 6.0 07/27 H Specimen Type: BLOOD No comment entered. Ordering Provider: ROSENDO DEL CASTILLO Report Released Date/Time : Jul 28, 2023 10:45 AM Reporting Lab: [place] [facility] [address] [place] [address] 8 Performin g Lab: [place] [facility] [address] [place] [address] [facility] Vital Signs Combined list of inpatient and outpatient Vital Signs from Department of Defense and Veterans Affairs, ranging from 12 months to all on record, depending upon the facility. Vital Sign Value Date Comments Source SYSTOLIC BLOOD PRESSURE 96 09/05/2024 09:00:00 [facility] DIASTOLIC BLOOD PRESSURE 61 09/05/2024 09:00:00 [facility] PULSE OXIMETRY 94 % 09/05/2024 09:00:00 [facility] WEIGHT 185.4 09/05/2024 09:00:00 [facility] BMI 23 kg/m2 09/05/2024 09:00:00 [facility] PAIN 0 09/05/2024 09:00:00 [facility] TEMPERATURE 97.5 09/05/2024 09:00:00 [facility] PULSE 66 09/05/2024 09:00:00 [facility] RESPIRATION 18 09/05/2024 09:00:00 [facility] Encounters Combined list of: 1) Encounters from Department of [facility] Affairs facilities going backup to the last 18 months, not all VA inpatient encounters are included; 2) Encounters from the Department of [facility] facilities going backup to 280 months. Location Location Details Encounter Type Encounter Number Reason For Visit Attending Provider ADM Date DC Date Status Disposition Source [facility] Outpatient Encounter [id number] 03/12 [facility] Outpatient Encounter [id number] 05/15 [facility] Outpatient Encounter [id number] 06/12 [facility] Outpatient Encounter [id number] MAXINE DEL CASTILLO 07/27 [facility] Outpatient Encounter [id number] PAUL DE LEON 07/30 [facility] Outpatient Encounter [id number] 08/16 [facility] Outpatient Encounter [id number] 08[facility]17 [facility] Out[facility] Encounter [id number] 09/01 [facility] [id number] Diagnos is: ICD-10- CM Z00.01 Encount er for general adult medical exam w abnorma l finding s CARLOSFELICITA Ca 09/01 [facility] OFFICE O/P EST MOD 30 MIN [id number] Diagnos is: ICD-10- CM Z00.01 Encount er for general adult medical exam w abnorma l finding s MAXINE DEL CASTILLO Ronak 09/01 [facility] Outpatient Encounter [id number] 09/[address] [facility] Outpatient Encounter [id number] 12/01 [facility] Outpatient Encounter [id number] 12/03 [facility] Outpatient Encounter [id number] 01/21 [facility] Outpatient Encounter [id number] 02/04 [facility] Outpatient Encounter [id number] 08/02 [facility] Outpatient Encounter [id number] 08/23 [facility] Outpatient Encounter [id number] 09/05 [facility] FAC[facility] FEE [id number] Diagnos is: ICD-10- CM Z00.01 Encount er for general adult medical exam w abnorma l finding s MAXINE DEL CASTILLO R 09/05 [facility] Outpatient Encounter [id number] Diagnos is: ICD-10- CM Z00.01 Encount er for general adult medical exam w abnorma l finding s MAXINE DEL CASTILLO R 09/05 [facility] Social History Combined list of available smoking, tobacco, and other social history from Department of Defense and Veterans Affairs facilities. Social History Type Response Date Comment Source Tobacco smoking status [facility] VA-TOBACCO USE FORMER CIGARETTES 09/05/2024 [facility] History of tobacco use VA-TOBACCO NEVER USED OTHER TYPE 09/05/2024 [facility] History of tobacco use VA-TOBACCO FORMER USER 09/02/2023 [facility] History of tobacco use VA-TOBACCO FORMER USER 07/30/2022 [facility] History of tobacco use VA-TOBACCO USER EVERY DAY 07/18/2021 [facility] History of tobacco use CURRENT NON-TOBACCO USER-HX OF USE 05/25/2018 [facility] History of tobacco use TOBACCO USER OFFERED MEDS 05/13/2017 [facility] History of tobacco use TOBACCO OFFERED PT MEDS (PROVIDER) 07/25/2015 [facility] History of tobacco use TOBACCO OFFERED PT MEDS (PROVIDER) 07/14/2012 [facility] History of tobacco use TOBACCO OFFERED PT MEDS (PROVIDER) 12/10/2010 [place] [facility] History of tobacco use LIFETIME NON-USER OF TOBACCO 04/18/2010 [facility] History of tobacco use CURRENT TOBACCO USER 03/07/2009 [facility] History of tobacco use QUIT TOBACCO IN THE LAST 12 MONTHS 03/01/2008 [facility] History of tobacco use CURRENT TOBACCO USER 06/03/[address] [facility] History of tobacco use CURRENT TOBACCO USER 01/19/2007 see pcp note 12.11.07 [facility] History of tobacco use QUIT TOBACCO >7 YEARS AGO 05/04/2006 [facility] History of tobacco use CURRENT TOBACCO [...] CURRENT TOBACCO USER 12/20/2003 [facility] Advance Directives List of completed, amended, or rescinded Advance Directives on record at Department of [facility] Affairs facilities. An actual copy of the Directive is not included. Date Advance Directive Provider Source 03/04/2004 ADVANCE DIRECTIVE LAUREN REYES [facility]
[2024-09-26 15:06] VITALS: BP 120/74; PULSE 71; TEMP 36.4; O2SAT 96
--- OUTSIDE RECORDS SUMMARY | 2024-09-26 15:11 | XMS_ITS | Clinical Summary ---
Author Organization [facility] Address [address] 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
--- OUTSIDE RECORDS SUMMARY | 2024-09-26 15:11 | XMS_ITS | Clinical Summary ---
Author Organization [facility] Address [address] 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
--- OUTSIDE RECORDS SUMMARY | 2024-09-26 15:11 | XMS_ITS | Encounter Summary ---
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
--- NOTE | 2024-09-26 15:31 | XRR_ITS ---
PROCEDURE INFORMATION: Exam: XR Left Foot Exam date and time: 09/26/2024 3:56 PM Age: 79 years old Clinical indication: --left foot painful and swelling, HX of prostate; Additional info: Injury TECHNIQUE: Imaging protocol: Radiologic exam of the left foot. Views: 3 or more views. COMPARISON: CR XR foot RT min 3V* [id number] 09/19/2024 3:12 PM FINDINGS: Bones/joints: Calcaneal spurring is noted. No acute fracture noted. Soft tissues: Soft tissue swelling involves the forefoot. No soft tissue air or foreign body. XR/XR foot LT min 3V* [id number] IMPRESSION: Soft tissue swelling without fracture
--- NOTE | 2024-09-26 16:03 | W.ED.EXTPRO ---
HPI - Extremity Problem General: Chief complaint: Extremity Injury, Lower Stated complaint: PCP sent, L foot swellings, discoloration Time Seen by Provider: 09/26/24 15:31 Source: patient Mode of arrival: ambulatory Limitations: no limitations History of Present Illness: 79-year-old male with had a fall a week ago. Injured his left foot. He had twisted his foot and had some bruising states the bruising is worsened and has had increasing pain in that foot. He seen his PCP had sent him here today with concern of the level of bruising. He denies any new injuries denies any fevers. Associated symptoms: Deny chest pain, fever(s) or rash Related Data Home Medications ?Medication ?Instructions ?Recorded ?Confirmed aspirin 81 mg tablet,delayed 81 mg PO DAILY 03/29/19 09/26/24 release mv-mn-folic 200 mcg-vit K 15 1 cap PO DAILY 04/09/23 09/26/24 mcg-lutein 5 mg-zeaxanthin 1 mg capsule (PreserVision AREDS 2 Plus Multivit) loratadine 10 mg tablet (Claritin) 10 mg PO QPM 07/31/23 09/26/24 budesonide 0.5 mg/2 mL suspension 0.5 mg inhalation BID 01/17/24 09/26/24 for nebulization lorazepam 1 mg tablet 1 mg PO DAILY PRN Anxiety 02/01/24 09/26/24 calcium 250 mg-magnesium 40 mg-D3 1 tab PO DAILY 02/25/24 09/26/24 125 unit-zinc 3.56rv-gor-zqxi tablet acetaminophen 500 mg tablet 1,000 mg PO QID PRN Fever Or Pain 04/24/24 09/26/24 (Tylenol Extra Strength) lactobacillus comb no.10 20 20,000 mmu cells PO DAILY 04/24/24 09/26/24 billion cell capsule (Probiotic) triamcinolone acetonide 55 mcg 2 spray intranasal DAILY 05/18/24 09/26/24 nasal spray aerosol azelastine 137 mcg (0.1 %) nasal 2 spray intranasal BID 05/20/24 09/26/24 spray metoprolol succinate 25 mg 12.5 mg PO QAM 05/20/24 09/26/24 tablet,extended release 24 hr Held on 09/08/24. Instructions: Doctor's Order Previous Rx's ?Medication ?Instructions ?Recorded nitroglycerin 0.4 mg sublingual 0.4 mg sublingual Q5M PRN Chest 07/21/22 tablet (Nitrostat) Pain #30 tabs Walker #1 ea 07/28/22 catheter bags #4 ea 10/08/23 fluticasone fur. 100 mcg-umeclid 1 ea inhalation DAILY #60 ea 10/13/23 62.5 mcg-vilant 25 mcg inhalat.powder (Trelegy Ellipta) ipratropium 0.5 mg-albuterol 3 mg 3 ml inhalation Q6H PRN wheezing 11/06/23 (2.5 mg base)/3 mL nebulization #90 mL soln nebulizer with tubing #1 ea 11/06/23 polyethylene glycol 3350 17 gram 17 g PO DAILY #30 ea 01/18/24 oral powder packet (Miralax) docusate sodium 100 mg capsule 100 mg PO DAILY PRN constipation 01/29/24 #60 caps tamsulosin 0.4 mg capsule 0.4 mg PO QPM #90 caps 04/05/24 glycerin (adult) 1 supp WI DAILY PRN constipation 04/24/24 #12 ea cholecalciferol (vitamin D3) 50 50 mcg PO DAILY #90 caps 04/26/24 mcg (2,000 unit) capsule rosuvastatin 40 mg tablet 40 mg PO BEDTIME #90 tabs 07/12/24 levothyroxine 175 mcg tablet See Rx Instructions .Route 07/19/24 .COMPLEX #90 tabs apixaban 5 mg tablet (Eliquis) 5 mg PO BID #90 tabs 07/21/24 famotidine 40 mg tablet 40 mg PO BID #180 tabs 07/21/24 montelukast 10 mg tablet 10 mg PO DAILY #90 tabs 07/21/24 sitagliptin phosphate 100 mg 100 mg PO QAM #90 tabs 07/21/24 tablet (Januvia) trazodone 100 mg tablet 100 mg PO QPM #90 tabs 07/21/24 carbamazepine 100 mg See Rx Instructions .Route 09/02/24 tablet,extended release,12 hr .COMPLEX #60 tabs metoclopramide HCl 5 mg tablet 5 mg PO TID #270 tabs 09/02/24 molnupiravir 200 mg capsule (EUA) 800 mg (4 x 200 mg) PO Q12H 5 days 09/09/24 #40 caps prednisone 5 mg tablet 5 mg PO BID #60 tabs 09/12/24 morphine 30 mg immediate release 30 mg PO Q6H PRN pain 22 days #90 09/20/24 tablet tabs enzalutamide 80 mg tablet (Xtandi) 80 mg PO DAILY #30 tabs 09/26/24 ondansetron HCl 8 mg tablet 8 mg PO Q8H PRN Nausea And 09/26/24 Vomiting #60 tabs Allergies Allergy/AdvReac Type Severity Reaction Status Date / Time vancomycin Allergy HIVES,RASH Verified 09/26/24 15:14 Review of Systems Const: Denies: fever(s), chills, body aches or change in appetite ENMT: Denies: throat pain or dental pain Card: Denies: chest pain Resp: Denies: dyspnea GI: Denies: abdominal pain, nausea, vomiting or diarrhea Musc: Reports: extremity pain; Denies: neck pain or back pain Skin/Breast: Denies: rash Neuro: Denies: headache(s) PFSH ED PFSH: Medical History (Updated 09/26/24 @ 18:13 by Vale Mcguire MD) Weight loss Viral URI with cough Hospital discharge follow-up Papillary thyroid carcinoma Suprapubic catheter Prostate cancer metastatic to bone Deep vein thrombosis (DVT) of left lower extremity Nausea & vomiting Lower urinary tract symptoms (LUTS) Cancer related pain Urinary tract infection Right kidney mass Burning sensation of feet Lumbar stenosis with neurogenic claudication Intervertebral disc disorder with radiculopathy of lumbosacral region Metastasis to bone Dyslipidemia History of diverticulitis Type 2 diabetes mellitus without complication, without long-term current use of insulin Benign essential HTN Post-surgical hypothyroidism Insomnia GERD (gastroesophageal reflux disease) COPD (chronic obstructive pulmonary disease) 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 Prostate cancer History of thyroid cancer Surgical History History of bladder surgery History of prostate surgery H/O transurethral resection of prostate History of cystostomy S/P cystourethroscopy with dilation of urethral stricture History of lumbar discectomy History of colonoscopy (07/12/19) diverticulosis, repeat 10 years History of orchiectomy, bilateral H/O total knee replacement BILATERAL H/O hernia repair History of hemorrhoidectomy History of uvulectomy History of thyroidectomy, subtotal Family History Mother , in her 90's Cancer Diabetes Sister Diabetes Father , in his 70's No problems noted. Other CAD (coronary artery disease) Social History Smoking and tobacco/nicotine status: never used tobacco/nicotine Quit status (tobacco/nicotine): has quit using Year quit tobacco: 2022 Former quit date comment: stopped in February of this year Alcohol intake: never Substance/Drug Use: never Lives independently: Yes Household members: spouse Marital status: Current occupational status: retired Physical Exam Const: COMMON NORMALS: no acute distress, patient oriented x3 and healthy appearing HENMT: COMMON NORMALS: normocephalic and atraumatic HEAD & SCALP: normocephalic and atraumatic Eye: COMMON NORMALS: conjunctivae normal CONJUNCTIVA: Yes conjunctivae normal Neck/C-Spine: COMMON NORMALS: full ROM and supple Chest: COMMONS NORMALS: normal inspection of the chest Resp: COMMON NORMALS: normal respiratory effort Cardio: COMMON NORMALS: regular rate, regular rhythm and No murmurs present (Cardio) RATE: regular rate RHYTHM: regular rhythm Extremity: COMMON NORMALS: full ROM NARRATIVE EXTREMITY EXAM: Bruising noted to left foot with blood blister does have slight skin breakdown to distal left toe superficial nature no warmth to touch distal pulses intact Neuro: COMMON NORMALS: patient oriented x3, moves all extremities and no focal motor deficits Psych: COMMON NORMALS: mental status grossly normal, Normal thought process present and cooperative THOUGHT PROCESS: Normal thought process present Skin: COMMON NORMALS: no rashes or lesions noted and no wounds GENERAL SKIN EXAM: no rashes or lesions noted Course Vital Signs: Vital signs: Vital Signs Temperature 97.5 F L 09/26/24 15:06 Pulse Rate 72 09/26/24 17:00 Blood Pressure 115/68 09/26/24 17:00 Pulse Oximetry 93 09/26/24 17:00 Oxygen Delivery Me thod Room Air 09/26/24 17:00 MDM - Extremity (Nontraumatic) Medical Decision Making Patient presents here with left foot fracture seen on CT he has no signs of infection does have swelling and bruising we will place him in a splint he is to be nonweightbearing we will get him follow-up with podiatry Medical Records I reviewed the patient's medical records. Lab Data I reviewed the patient's lab results. 09/26/24 15:59 Radiology Impressions Foot X-Ray 09/26/24 15:31 IMPRESSION: Soft tissue swelling without fracture Foot CT 09/26/24 16:05 IMPRESSION: Multiple nondisplaced fractures as detailed above with soft tissue swelling Laboratory Results WBC 5.60 10^3/uL (3.29-11.43) 09/26/24 15:59 RBC 3.16 10^6/uL (3.85-5.65) L 09/26/24 15:59 Hgb 10.50 g/dL (11.27-16.99) L 09/26/24 15:59 Hct 31.7 % (37-53) L 09/26/24 15:59 MCV 100.3 fl (82-101) 09/26/24 15:59 MCH 33.2 pg (27-33) H 09/26/24 15:59 MCHC 33.1 g/dL (30-55) 09/26/24 15:59 RDW 13.4 % (12.1-15.1) 09/26/24 15:59 Plt Count 230 10^3/cmm (157-399) 09/26/24 15:59 MPV 9.8 fL (7.4-10.4) 09/26/24 15:59 Neut % (Auto) 78.2 % 09/26/24 15:59 Lymph % (Auto) 11.1 % 09/26/24 15:59 [place] % (Auto) 9.5 % 09/26/24 15:59 Eos % (Auto) 0.0 % 09/26/24 15:59 Baso % (Auto) 0.5 % 09/26/24 15:59 Neut # (Auto) 4.38 10^3/uL (1.8-7.7) 09/26/24 15:59 Lymph # (Auto) 0.6 10^3/uL (0.8-4.8) L 09/26/24 15:59 [place] # (Auto) 0.5 10^3/uL (0.2-0.9) 09/26/24 15:59 Eos # (Auto) 0.0 10^3/uL (0.0-0.8) 09/26/24 15:59 Baso # (Auto) 0.0 10^3/uL (0.0-0.1) 18 15:59 Nucleated RBC % (auto) 0 % 09/26/24 15:59 Nucleated RBCs # 0.0 /100WBC 09/26/24 15:59 ESR 26 mm/hr (0-10) H 09/26/24 15:59 C-Reactive Protein 34.5 mg/L (0.0-4.9) H 09/26/24 15:59 All radiology interpretation(s) finalized by discharge Discharge Plan Discharge Patient Disposition: Home Clinical Impression: Foot fracture, left Condition: Stable Prescriptions: No Action aspirin 81 mg tablet,delayed release (DR/EC) 81 mg PO DAILY (DME) nebulizer with tubing See Rx Instructions .Route .MEDSUPPLY Qty: 1 0RF Rx Instructions: As directed ipratropium-albuterol 0.5 mg-3 mg(2.5 mg base)/3 mL solution for nebulization 3 ml inhalation Q6H PRN (Reason: wheezing) Qty: 90 0RF docusate sodium 100 mg capsule 100 mg PO DAILY PRN (Reason: constipation) Qty: 60 0RF lorazepam 1 mg tablet 1 mg PO DAILY PRN (Reason: Anxiety) triamcinolone acetonide 55 mcg aerosol,spray 2 spray intranasal DAILY Rx Instructions: administer into each nostril montelukast 10 mg tablet 10 mg PO DAILY Qty: 90 1RF Januvia 100 mg tablet 100 mg PO QAM Qty: 90 1RF trazodone 100 mg tablet 100 mg PO QPM Qty: 90 1RF Eliquis 5 mg tablet 5 mg PO BID Qty: 90 1RF famotidine 40 mg tablet 40 mg PO BID Qty: 180 1RF (DME) Walker See Rx Instructions .ROUTE .MEDSUPPLY Qty: 1 0RF Rx Instructions: As directed PreserVision AREDS 2 Plus MV 200 mcg-15 mcg- 5 mg-1 mg capsule 1 cap PO DAILY Trelegy Ellipta 100-62.5-25 mcg blister with device 1 ea INHALATION DAILY Qty: 60 5RF (DME) catheter bags See Rx Instructions .Route .MEDSUPPLY Qty: 4 5RF Rx Instructions: As directed calcium uvz-uhx-G6-Zn-endoscopy rn-khadar 250 mg-40 mg- 125 unit-3.75mg tablet 1 tab PO DAILY molnupiravir 200 mg capsule 800 mg PO Q12H 5 Days Qty: 40 0RF nitroglycerin [Nitrostat] 0.4 mg tablet, sublingual 0.4 mg SUBLINGUAL Q5M PRN (Reason: Chest Pain) Qty: 30 1RF tamsulosin 0.4 mg capsule 0.4 mg PO QPM Qty: 90 1RF cholecalciferol (vitamin D3) 50 mcg (2,000 unit) capsule 50 mcg PO DAILY Qty: 90 1RF rosuvastatin 40 mg tablet 40 mg PO BEDTIME Qty: 90 1RF levothyroxine 175 mcg tablet See Rx Instructions .ROUTE .COMPLEX Qty: 90 1RF Dose Instruction: TAKE 1 TABLET BY MOUTH EVERY DAY thursday through thursday. take 1/2 tablet BY MOUTH ON thursday, SKIP thursday Rx Instructions: TAKE 1 TABLET BY MOUTH EVERY DAY thursday through thursday. take 1/2 tablet BY MOUTH ON thursday, SKIP thursday metoclopramide HCl 5 mg tablet 5 mg PO TID Qty: 270 1RF carbamazepine 100 mg tablet extended release 12 hr See Rx Instructions .ROUTE .COMPLEX Qty: 60 3RF Dose Instruction: TAKE 1 TABLET BY MOUTH TWICE DAILY Rx Instructions: TAKE 1 TABLET BY MOUTH TWICE DAILY prednisone 5 mg tablet 5 mg PO BID Qty: 60 0RF morphine 30 mg tablet 30 mg PO Q6H PRN (Reason: pain) 22 Days Qty: 90 0RF Xtandi 80 mg tablet 80 mg PO DAILY Qty: 30 0RF ondansetron HCl 8 mg tablet 8 mg PO Q8H PRN (Reason: Nausea And Vomiting) Qty: 60 0RF budesonide 0.5 mg/2 mL suspension for nebulization 0.5 mg inhalation BID polyethylene glycol 3350 [Miralax] 17 gram powder in packet 17 g PO DAILY Qty: 30 0RF loratadine [Claritin] 10 mg Tablet 10 mg PO QPM acetaminophen [Tylenol Extra Strength] 500 mg Tablet 1,000 mg PO QID PRN (Reason: Fever Or Pain) Probiotic 20 billion cell Capsule 20,000 mmu cells PO DAILY Rx Instructions: administer with a meal glycerin (adult) Suppository 1 supp WI DAILY PRN (Reason: constipation) Qty: 12 0RF metoprolol succinate 25 mg tablet extended release 24 hr 12.5 mg PO QAM azelastine 137 mcg (0.1 %) spray,non-aerosol 2 spray INTRANASAL BID Discharge Orders: Discharge ED (Routine); Ordered 09/26/24 Ordered By: Vale Mcguire Referrals: Alex Byers DPM [Physician, Podiatry] - 4-7 days Joann Knowles DO [Primary Care Provider, Family Practice] Discharge Diet: Advance as tolerated Discharge Activity: Limit activity as instructed and Use walker/crutches as instructed Patient Instructions: Foot Fracture in Adults (ED) Print Language: [place]ican Coding Level of Care Code ED Transit Proof Machine Operator for Gale Callahan
--- NOTE | 2024-09-26 16:05 | CTR_ITS ---
PROCEDURE INFORMATION: Exam: CT Left Lower Extremity Without Contrast, Foot Exam date and time: 09/26/2024 5:29 PM Age: 79 years old Clinical indication: Injury or trauma; Blunt trauma; Left; Injury details: Fall x 1 week ago. PT foot is swollen and purple and red with some open wounds on it. PT states he cannot feel that foot. TECHNIQUE: Imaging protocol: CT of the left lower extremity without contrast was performed. Exam focused on the foot. Radiation optimization: All CT scans at this facility use at least one of these dose optimization techniques: automated exposure control; mA and/or kV adjustment per patient size (includes targeted exams where dose is matched to clinical indication); or iterative reconstruction. COMPARISON: CR XR foot LT min 3V* [id number] 09/26/2024 3:56 PM RADIATION DOSE METRICS: Total DLP (mGy-cm): 142.43 FINDINGS: Bones/joints: Small acute chip fractures involve the proximal ends of the 3rd and 4th metatarsals. Similar nondisplaced chip fractures involve the distal ends of the 2nd and 3rd cuneiform bones. A small chip fracture also involves the medial cortex of the distal end of the 1st metatarsal. Overall bony alignment is normal. No other fracture identified. Soft tissues: Prominent soft tissue swelling involves the forefoot. I see no soft tissue air or foreign body. CT/CT foot LT wo con* [id number] IMPRESSION: Multiple nondisplaced fractures as detailed above with soft tissue swelling
[2024-09-26 16:07] LABS: Hematocrit 31.7 % (37-53); Hemoglobin 10.50 g/dL (11.27-16.99); Mean Corpuscular HGB Conc 33.1 g/dL (30-55); Mean Corpuscular Hemoglobin 33.2 pg (27-33); Mean Corpuscular Volume 100.3 fl (82-101); Nucleated Red Blood Cells % 0 %; Platelet Count 230 10^3/cmm (157-399); Red Blood Count 3.16 10^6/uL (3.85-5.65); White Blood Count 5.60 10^3/uL (3.29-11.43)
[2024-09-26 16:20] VITALS: BP 107/68; PULSE 68; O2SAT 97
--- NOTE | 2024-09-26 16:20 | PC.NURSE ---
Doppler pedal pulse to left foot, HR68.
[2024-09-26 16:30] VITALS: BP 117/72; PULSE 69; O2SAT 93
[2024-09-26 17:00] VITALS: BP 115/68; PULSE 72; O2SAT 93
[2024-09-26 18:16] VITALS: BP 126/62; PULSE 76; RESP 15; O2SAT 98
[2024-09-26 18:42] VITALS: BP 121/67; PULSE 70; O2SAT 98
--- NOTE | 2024-09-29 09:00 | DCPLANNER ---
messaged podiatry for er f/u
== END 2024-09-26 18:43 | disposition home or self-care (01) ==
PROVIDERS: Emergency Provider Emergency Medicine; PCP Family Medicine
DX: S92.332A Displaced fracture of third metatarsal bone, left foot, initial encounter for closed fracture (principal); S92.342A Displaced fracture of fourth metatarsal bone, left foot, initial encounter for closed fracture; S92.225A Nondisplaced fracture of lateral cuneiform of left foot, initial encounter for closed fracture; W19.XXXA Unspecified fall, initial encounter; E78.5 Hyperlipidemia, unspecified; E11.9 Type 2 diabetes mellitus without complications; I10 Essential (primary) hypertension; J44.9 Chronic obstructive pulmonary disease, unspecified; Z85.46 Personal history of malignant neoplasm of prostate; Z85.850 Personal history of malignant neoplasm of thyroid; Z79.01 Long term (current) use of anticoagulants
CPT/HCPCS: 29515; 36415; 73630; 73700; 85025; 85651; 86140; 99284; E0114

== ENCOUNTER 2024-09-30 12:40 | Inpatient (IN) | payer OTHER, MEDICAID, SELFPAY ==
--- OUTSIDE RECORDS SUMMARY | 2024-09-09 11:29 | XMS_ITS | Continuity of Care Document ---
Author Name [facility] Organization [facility] Care Team Providers Care Steel Turner Name Role Phone [facility] Unavailable Unavailable Problems Combined list of problems from Department of Defense and Veterans Affairs facilities. It does not include entries that were removed or entered in error. Problem Status Onset Date Problem Type Date of Resolution Comments Source non-VA PCP Dr. Knowles who manages all his medical diseases. 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 Jul 30, 2022 Entered By: MAXINE DEL CASTILLO Comment: Patient states to his low back [place] [facility] Chronic low back pain (SNOMED CT 431749884) Active Condition [place] [facility] COPD - Chronic obstructive pulmonary disease Active Condition [place] [facility] Diabetic peripheral neuropathy Active Condition [place] [facility] Dizziness * (ICD-9-CM 780.4) Active Condition [place] [facility] DM - Diabetes mellitus (SNOMED CT 05160577) Active Condition [place] [facility] Foot Pain (ICD-9-CM 719.47) Active Condition [place] [facility] Hematuria Active Condition Mar 09 Entered By: MAXINE DEL CASTILLO Comment: urology PB [facility]eb 2023 Entered By: MAXINE DEL CASTILLO Comment: PB recommended pt go to [facility] to have procedure done, to make decisin and get back to urology [place] [facility] Hip Sprain/Strain Active Condition [place] [facility] History of bilateral knee arthroplasty Active Condition Jul 30, 2022 Entered By: MAXINE DEL CASTILLO Comment: Dr. Colby [place] [facility] History of colonoscopy Active Condition Jul 30, 2022 Entered By: MAXINE DEL CASTILLO Comment: 2022 Entered By: MAXINE DEL CASTILLO Comment: EGD by Dr. Handley with biopsies to esophagus = negative per pt Dr. 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 Colby [place] [facility] HLD - Hyperlipidemia Active Condition [place] [facility] Hypocalcemia Active Condition [place] [facility] Hypothyroidism (SCT 13916846) Active Condition Jul 30, 2022 Entered By: MAXINE DEL CASTILLO Comment: Followed by Dr. Vee endocrinologyJul 30, 2022 Entered By: MAXINE DEL CASTILLO Comment: Iodine treatment 2019 [place] [facility] Knee Pain Active Condition [place] [facility] Pain in joint involving shoulder region (ICD-9-CM 719.41) Active Condition [place] [facility] Pancytopenia Active Condition Jul 31, 2023 Entered By: MAXINE DEL CASTILLO Comment: hem onco consult [place] [facility] Postsurgical arthrodesis status (ICD-9-CM V45.4) Active Condition [place] [facility] Prostate carcinoma (SNOMED CT 564600218) Active Condition Jul 30, 2022 Entered By: MAXINE DEL CASTILLO Comment: Treated by Dr. Monahan, who follows his PSA last 1 was [id number] Entered By: MAXINE DEL CASTILLO Comment: mets to back spine [place] [facility] Retention of Urine (SCT 964898085) Active Condition Mar 09, 2023 Entered By: MAXINE DEL CASTILLO Comment[facility], patisusann also has hematuria [place] [facility] Vitamin D below reference range Active Condition [place] [facility] Cough (ICD-9-CM 786.2) Inactive Condition 09/18/2020 [place] [facility] Issue of Repeat Prescriptions (ICD-9-CM V68.1) Inactive Condition 09/18/2020 [facility] Laboratory Procedures (ICD-9-CM V72.6) Inactive Condition 09/18/2020 [facility] Nausea * (ICD-9-CM 787.02) Inactive Condition 09/18/2020 [place] [facility] Nausea with Vomiting (ICD-9-CM 787.01) Inactive Condition 09/18/2020 [place] [facility] Patellar tendinitis (ICD-9-CM 726.64) Inactive Condition 09/18/2020 [place] [facility] Routine General Medical Examination at a Health Care Facility * (ICD-9-CM V70.0) Inactive Condition 09/18/2020 [facility] Sprains and strains of wrist and hand (ICD-9-CM 842.09) Inactive Condition 09/18/2020 [place] [facility] URI (ICD-9-CM 465.9) Inactive Condition 09/18/2020 [place] [facility] Diagnosis: ICD-10-CM Z00.01 Encounter for general adult medical exam w abnormal findings Active Diagnosis [facility] Medications Combined list of outpatient medications [...] DAY ORAL ACTIVE ROSENDO DEL CASTILLO 2021 [facility] ALBUTEROL (CFC-F) INHL,ORAL INHALE BY ORAL INHALATI ON FOUR TIMES A DAY RESPIR ATORY (INHAL ATION) ACTIVE MINNA WALLER 2013 [facility] ALBUTEROL SO4 90MCG/ACTUA T (CFC-F) INHL,ORAL,8 .5GM INHALE 1 PUFF BY ORAL INHALATI ON FOUR TIMES A DAY NEEDED RESPIR ATORY (INHAL ATION) ACTIVE ROSENDO DEL CASTILLO 2021 [facility] ALFUZOSIN HCL 10MG TAB,SA TAKE ONE TABLET BY MOUTH AT BEDTIME ORAL ACTIVE NILDA GRIJALVA 2010 [facility] APIXABAN 5MG TAB TAKE ONE TABLET BY MOUTH TWICE A DAY ORAL ACTIVE ROSENDO DEL CASTILLO 2021 [facility] ASPIRIN 81MG TAB,EC TAKE ONE TABLET BY MOUTH ONCE A DAY ORAL ACTIVE LISCOLEMAN AmbrosioNILDA 2010 [facility] ATORVASTATI N CA 80MG TAB TAKE ONE TABLET BY MOUTH EVERY EVENING ORAL ACTIVE LISCOLEMAN AmbrosioNILDA 2010 [facility] CALCIUM 250MG/VITAM IN D 125UNT TAB TAKE 1 TABLET BY MOUTH ONCE A DAY FOR CALCIUM SUPPLEME NTATION TAKE WITH FOOD ORAL DISCONT INUED BY PROVIDE R 07/31/2024 [id number] 4 ROSENDO DEL CASTILLO R 2023 100 [facility] CARBAMAZEPI NE 200MG TAB TAKE ONE-HALF TABLET BY MOUTH TWICE A DAY ORAL ACTIVE ROSENDO DEL CASTILLO R 2022 [facility] CETIRIZINE HCL 10MG TAB TAKE ONE TABLET BY MOUTH ONCE A DAY ORAL ACTIVE DEE ALEXANDER 2015 [facility] [place] [facility] CHOLECALCIF MINDY 50MCG (2,000UNIT) TAB TAKE TWO TABLETS BY MOUTH ONCE A DAY FOR VITAMIN D DEFICIEN CY ORAL DISCONT INUED BY PROVIDE R 07/31/2024 [id number] 4 ROSENDO DEL CASTILLO R 2023 200 [facility] CYCLOBENZAP RINE HCL 10MG TAB TAKE ONE TABLET BY MOUTH THREE TIMES A DAY NEEDED ORAL ACTIVE ROSENDO DEL CASTILLO R 2021 [facility] DOXYCYCLINE HYCLATE 100MG TAB TAKE ONE TABLET BY MOUTH TWICE A DAY ORAL ACTIVE ROSENDO DEL CASTILLO R 2021 [facility] EMPAGLIFLOZ IN 25MG TAB TAKE ONE-HALF TABLET BY MOUTH ONCE A DAY ORAL ACTIVE ROSENDO DEL CASTILLO R 2021 [facility] ESOMEPRAZOL E MAGNESIUM 40MG CAP,EC TAKE 1 CAPSULE BY MOUTH TWICE A DAY ORAL ACTIVE ROSENDO DEL CASTILLO R 2021 [facility] ESOMEPRAZOL E MAGNESIUM 40MG CAP,EC TAKE 1 CAPSULE BY MOUTH TWICE A DAY ORAL ACTIVE ROSENDO DEL CASTILLO R 2022 [facility] EZETIMIBE TAB TAKE BY MOUTH ONCE A DAY ORAL ACTIVE MINNA WALLER 2013 [facility] FLUTICASONE 100/UMECLID INIUM 62.5/VILANT MINDY 25MCG/ACTUA T INH,30 INHALE 1 PUFF ORAL INHALATI ON ONCE A DAY RESPIR ATORY (INHAL ATION) ACTIVE MAGDALENEROSENDO Capri 2021 [facility] FLUTICASONE 500MCG/SALM ETEROL 50MCG INHL,ORAL,D ISKUS,60 INHALE 1 INHALATI ON BY ORAL INHALATI ON TWICE A DAY RESPIR ATORY (INHAL ATION) ACTIVE DEE ALEXANDER 2015 [facility] FUROSEMIDE 20MG TAB TAKE ONE TABLET BY MOUTH EVERY MORNING ORAL ACTIVE MAGDALENEROSENDO Capri 2021 [facility] GABAPENTIN 300MG CAP TAKE 1 CAPSULE BY MOUTH THREE TIMES A DAY NEEDED ORAL ACTIVE MAGDALENEROSENDO Capri 2021 [facility] GLIPIZIDE 5MG TAB TAKE ONE-HALF TABLET BY MOUTH ONCE A DAY ORAL ACTIVE MAGDALENEROSENDO Capri 2022 [place] HYDROCODONE 5MG/ACETAMI NOPHEN 325MG TAB TAKE ONE TABLET BY MOUTH EVERY 6 HOURS NEEDED ORAL ACTIVE MAGDALENEROSENDO Capri 2021 [facility] IPRATROPIUM MDI INHL,ORAL INHALE BY ORAL INHALATI ON FOUR TIMES A DAY RESPIR ATORY (INHAL ATION) ACTIVE MINNA WALLER 2013 [facility] LEVOTHYROXI NE NA 175MCG TAB (SYNTHROID) TAKE ONE TABLET BY MOUTH EVERY MORNING BEFORE A MEAL ORAL ACTIVE MAGDALENEROSENDO Capri 2021 [facility] METOCLOPRAM REINA HCL 10MG TAB TAKE ONE-HALF TABLET BY MOUTH THREE TIMES A DAY ORAL ACTIVE MAGDALENEROSENDO Capri 2022 [place] METOPROLOL SUCCINATE 50MG TAB,SA TAKE ONE-HALF TABLET BY MOUTH ONCE A DAY ORAL ACTIVE DEE ALEXANDER 2015 [facility] MONTELUKAST NA 10MG TAB TAKE ONE TABLET BY MOUTH EVERY EVENING ORAL ACTIVE NILDA GRIJALVA 2010 [facility] NITROGLYCER IN TAB,SUBLING UAL DISSOLVE UNDER THE TONGUE ONE-TIME SUBLIN GUAL ACTIVE DEE ALEXANDER 2015 [facility] ONDANSETRON HCL 8MG TAB TAKE ONE-HALF TABLET BY MOUTH THREE TIMES A DAY NEEDED ORAL ACTIVE RUTJOELLENROSENDO Farooq 2022 [facility] PREDNISONE 5MG TAB TAKE ONE TABLET BY MOUTH EVERY MORNING ORAL ACTIVE MAGDALENEFeb [facility] PROBIOTIC COMBINATION CAP/TAB TAKE 1 CAPSULE BY MOUTH ONCE A DAY ORAL ACTIVE IRAIDASanjeevFeb [facility] PROCHLORPER AZINE MALEATE 10MG TAB TAKE ONE TABLET BY MOUTH FOUR TIMES A DAY ORAL ACTIVE MAGDALENEFeb [facility] SITAGLIPTIN PHOSPHATE 100MG TAB TAKE ONE TABLET BY MOUTH ONCE A DAY ORAL ACTIVE RUTJOELLENFeb [facility] TERBINAFINE HCL 250MG TAB TAKE ONE TABLET BY MOUTH ONCE A DAY ORAL ACTIVE MAGDALENEFeb [facility] TRIAMCINOLO NE ACETONIDE 0.1% CREAM,TOP APPLY SPARINGL Y TO AFFECTED AREA(S) TWICE A DAY TOPICA L ACTIVE MAGDALENEFeb [facility] Allergies, Adverse Reactions, Alerts Combined list of allergies from Department of Defense and Veterans Affairs facilities. It does not include entries that were removed or entered in error. Substance Category Reaction Severity Reaction type Status Date Reported Comments Source VANCOMYCIN Propensity to adverse reactions to drug (finding) active 4 [facility] Immunizations Combined list of available immunizations from the Department of Defense and Veterans Affairs facilities. Immunization Series Date Given Administered By Site Reaction Lot Number CVX Code Drug [facility] Manager Status Comments Source PNEUMOCOCCAL CONJUGATE PCV20, POLYSACCHARID E [id number] CONJUGATE, ADJUVANT, PF 3 2024 216 complet ed HISTORICA L INFORMATI ON - FROM OTHER REGISTRY, [facility] COVID-19 (PFIZER), MRNA, LNP-S, PF, DANIELLE-SUCROSE, 30 MCG/0.3 ML (AGES 12+ YEARS) 7 2023 309 complet ed HISTORICA L INFORMATI ON - FROM OTHER REGISTRY, [facility] INFLUENZA, ADJUVANTED, TRIVALENT, PF 8 2023 168 complet ed HISTORICA L INFORMATI ON - FROM OTHER [facility], [facility] COVID-19 (PFIZER), MRNA, LNP-S, PF, DANIELLE-SUCROSE, 30 MCG/0.3 ML (AGES 12+ YEARS) 5 2022 309 complet ed HISTORICA L INFORMATI ON - FROM OTHER REGISTRY, [facility] N INFLUENZA, HIGH-DOSE, QUADRIVALENT 7 2022 197 complet ed HISTORICA L INFORMATI ON - FROM OTHER [facility], [facility] INFLUENZA, UNSPECIFIED FORMULATION 2022 88 complet ed HISTORICA L INFORMATI ON - FROM PATIENT'S RECALL, [facility] N RSV, BIVALENT, PROTEIN SUBUNIT RSVPREF, DILUENT RECONSTITUTED , 0.5 ML, PF 1 2022 305 complet ed HISTORICA L INFORMATI ON - FROM OTHER [facility], [facility] ZOSTER RECOMBINANT 2022 FAMILIA MORAN LEFT DELTO ID [id number] 187 complet ed [facility] PNEUMOCOCCAL POLYSACCHARID E PPV23 2022 33 complet ed HISTORICA L INFORMATI ON - FROM OTHER REGISTRY, [facility] N COVID-19 (MODERNA), MRNA, LNP-S, BIVALENT, PF, 50 MCG/0.5 ML OR 25MCG/0.25 ML DOSE 4 2021 229 complet ed HISTORICA L INFORMATI ON - FROM OTHER REGISTRY, [facility] N INFLUENZA, HIGH-DOSE, QUADRIVALENT 6 2021 197 complet ed HISTORICA L INFORMATI ON - FROM OTHER REGISTRY, [facility] N COVID-19 (MODERNA), MRNA, LNP-S, PF, 100 MCG/0.5ML DOSE OR 50 MCG/0.25ML DOSE 4 2021 207 complet ed MOD; [id number]; 2 [facility] INFLUENZA, INJECTABLE, QUADRIVALENT, PRESERVATIVE FREE 5 2020 150 complet ed HISTORICA L INFORMATI ON - FROM OTHER REGISTRY, [facility] COVID-19 (MODERNA), MRNA, LNP-S, PF, 100 MCG/0.5ML DOSE OR 50 MCG/0.25ML DOSE 3 2020 207 complet ed [facility] COVID-19 (MODERNA), MRNA, LNP-S, PF, 100 MCG/0.5 ML DOSE 2 2020 207 complet ed [facility] COVID-19 (MODERNA), MRNA, LNP-S, PF, 100 MCG/0.5 ML DOSE 1 2020 207 complet ed [facility] INFLUENZA, INJECTABLE, QUADRIVALENT, PRESERVATIVE FREE 4 2019 150 complet ed HISTORICA L INFORMATI ON - FROM OTHER REGISTRY, [facility] N INFLUENZA, UNSPECIFIED FORMULATION 2019 88 complet ed [facility] INFLUENZA, TRIVALENT, ADJUVANTED 3 2018 168 complet ed HISTORICA L INFORMATI ON - FROM OTHER REGISTRY, [facility] INFLUENZA, UNSPECIFIED FORMULATION 2018 88 complet ed [facility] PHARMAC IES PNEUMOCOCCAL POLYSACCHARID E PPV23 1 2017 33 complet ed HISTORICA L INFORMATI ON - FROM OTHER REGISTRY, [facility] PNEUMOCOCCAL POLYSACCHARID E PPV23 2017 33 complet ed [facility] INFLUENZA, UNSPECIFIED FORMULATION 2016 88 complet ed [facility] TD(ADULT) UNSPECIFIED FORMULATION 2016 139 complet ed Not sure of location was written on vaccinati on log [facility] INFLUENZA, UNSPECIFIED FORMULATION 2015 88 complet ed [facility] INFLUENZA, UNSPECIFIED FORMULATION 2014 88 complet ed [facility] PNEUMOCOCCAL CONJUGATE PCV 13 2014 133 complet ed [facility] INFLUENZA, SEASONAL, INJECTABLE 2 2013 141 complet ed HISTORICA L INFORMATI ON - FROM OTHER REGISTRY, [facility] INFLUENZA, UNSPECIFIED FORMULATION 2013 88 complet ed [facility] INFLUENZA, SEASONAL, INJECTABLE 1 2012 141 complet ed HISTORICA L INFORMATI ON - FROM OTHER REGISTRY, [facility] INFLUENZA, UNSPECIFIED FORMULATION 2012 88 complet ed [facility] PNEUMOCOCCAL POLYSACCHARID E PPV23 2012 33 complet ed no- has written record [facility] INFLUENZA, UNSPECIFIED FORMULATION 2011 88 complet ed [facility] INFLUENZA, UNSPECIFIED FORMULATION 2010 88 complet ed [facility] INFLUENZA, UNSPECIFIED FORMULATION 2009 88 complet ed [facility] INFLUENZA, UNSPECIFIED FORMULATION 2008 88 complet ed [facility] TDAP 2008 115 complet ed [facility] INFLUENZA (HISTORICAL) 2007 88 complet ed [facility] INFLUENZA, UNSPECIFIED FORMULATION 2006 88 complet ed [facility] PNEUMOCOCCAL, UNSPECIFIED FORMULATION 2006 109 complet ed Left Deltoid [facility] INFLUENZA, UNSPECIFIED FORMULATION 2006 88 complet ed [facility] OUTSIDE PNEUMOVAX (HISTORICAL) 2006 109 complet ed [facility] INFLUENZA (HISTORICAL) 2005 88 complet ed [facility] INFLUENZA, UNSPECIFIED FORMULATION 2004 88 complet ed [facility] INFLUENZA (HISTORICAL) 2003 88 complet ed [facility] Results Combined list of recent chemistry, hematology and other laboratory results from Department of Defense and Veterans Affairs, ranging from 15 months to all on record, depending upon the facility. Order Name Results Value Reference Range Date Interpretation Specimen Comments Source B12 COBALAMIN (VITAMIN B12) [MASS/VOLUME] IN SERUM OR PLASMA 251 pg/mL 213 - 816 09/05 Specimen Type: SERUM No comment entered. Ordering Provider: ROSENDO DEL CASTILLO Report Released Date/Time : Sep 02, 2024 03:04 PM Reporting Lab: [place] [facility] [address] [place] [address] Performin g Lab: [place] [facility] [address] [place] [address] [facility] HGA1C HEMOGLOBIN A1C/HEMOGLOBI N.TOTAL IN BLOOD 6.9 4.0 - 6.0 09/05 H Specimen Type: BLOOD No comment entered. Ordering Provider: ROSENDO DEL CASTILLO Report Released Date/Time : Sep 02, 2024 03:04 PM Reporting Lab: [place] [facility] [address] [place] [address] Performin g Lab: [place] [facility] [address] [place] [address] [facility] FOLATE (PB) FOLATE [MASS/VOLUME] IN SERUM OR PLASMA 3.5 ng/mL 7 - 20 09/05 L Specimen Type: SERUM No comment entered. Ordering Provider: ROSENDO DEL CASTILLO Report Released Date/Time : Sep 02, 2024 03:04 PM Reporting Lab: [place] [facility] [address] [place] [address] Performin g Lab: [place] [facility] [address] [place] [address] [facility] CHOLESTEROL PANEL (PB) CHOLESTEROL [MASS/VOLUME] IN SERUM OR PLASMA 135 mg/dL 0 - 200 09/05 Specimen Type: PLASMA No comment entered. Ordering Provider: ROSENDO DEL CASTILLO Report Released Date/Time : Sep 02, 2024 03:04 PM Reporting Lab: [place] [facility] [address] [place] [address] Performin g Lab: [place] [facility] [address] [place] [address] [facility] CHOLESTEROL PANEL (PB) TRIGLYCERIDE [MASS/VOLUME] IN SERUM OR PLASMA 95 mg/dL 0 - 150 09/05 Specimen Type: PLASMA No comment entered. Ordering Provider: ROSENDO DEL CASTILLO Report Released Date/Time : Sep 02, 2024 03:04 PM Reporting Lab: [place] [facility] [address] [place] [address] Performin g Lab: [place] [facility] [address] [place] [address] [facility] CHOLESTEROL PANEL (PB) CHOLESTEROL IN LDL [MASS/VOLUME] IN SERUM OR PLASMA BY CALCULATION 75.3 mg/dL 09/05 Specimen Type: PLASMA No comment entered. Ordering Provider: ROSENDO DEL CASTILLO Report Released Date/Time : Sep 02, 2024 03:04 PM Reporting Lab: [place] [facility] [address] [place] [address] Performin g Lab: [place] [facility] [address] [place] [address] [facility] CHOLESTEROL PANEL (PB) CHOLESTEROL IN HDL [MASS/VOLUME] IN SERUM OR PLASMA 40.7 mg/dL 40 09/05 H Specimen Type: PLASMA No comment entered. Ordering Provider: ROSENDO DEL CASTILLO Report Released Date/Time : Sep 02, 2024 03:04 PM Reporting Lab: [place] [facility] [address] [place] [address] Performin g Lab: [place] [facility] [address] [place] [address] [facility] CHOLESTEROL PANEL (PB) CHOLESTEROL IN HDL/CHOLESTER OL.TOTAL [MASS RATIO] IN SERUM OR PLASMA 30.1 25 09/05 Specimen Type: PLASMA No comment entered. Ordering Provider: ROSENDO DEL CASTILLO Report Released Date/Time : Sep 02, 2024 03:04 PM Reporting Lab: [place] [facility] [address] [place] [address] Performin g Lab: [place] [facility] [address] [place] [address] [facility] VITAMIN D, 25-HYDROXY 25-HYDROXYVIT HANNON D3 [MASS/VOLUME] IN SERUM OR PLASMA 90.5 ng/mL 30 - 96 09/05 Specimen Type: SERUM No comment entered. Ordering Provider: ROSENDO DEL CASTILLO Report Released Date/Time : Sep 02, 2024 03:04 PM Reporting Lab: [place] [facility] [address] [place] [address] Performin g Lab: [place] [facility] [address] [place] [address] [facility] TSH (MA-PB) THYROTROPIN [UNITS/VOLUME ] IN SERUM OR PLASMA 3.679 u[IU]/ mL 0.47 - 5 09/05 Specimen Type: SERUM No comment entered. Ordering Provider: ROSENDO DEL CASTILLO Report Released Date/Time : Sep 02, 2024 03:04 PM Reporting Lab: [place] [facility] [address] [place] [address] Performin g Lab: [place] [facility] [address] [place] [address] [facility] URINE ALBUMIN PROFILE-ih (PB) ALBUMIN [MASS/VOLUME] IN URINE 271.42 mg/L 09/05 Specimen Type: URINE No comment entered. Ordering Provider: ROSENDO DEL CASTILLO Report Released Date/Time : Sep 02, 2024 03:04 PM Reporting Lab: [place] [facility] [address] [place] [address] Performin g Lab: [place] [facility] [address] [place] [address] [facility] URINE ALBUMIN PROFILE-ih (PB) ALBUMIN/CREAT ININE [MASS RATIO] IN URINE 431.78 mg/g 0 - 30 09/05 H Specimen Type: URINE No comment entered. Ordering Provider: ROSENDO DEL CASTILLO Report Released Date/Time : Sep 02, 2024 03:04 PM Reporting Lab: [place] [facility] [address] [place] [address] Performin g Lab: [place] [facility] [address] [place] [address] [facility] URINE ALBUMIN PROFILE-ih (PB) CREATININE [MASS/VOLUME] IN URINE 62.86 mg/dL 09/05 Specimen Type: URINE No comment entered. Ordering Provider: ROSENDO DEL CASTILLO Report Released Date/Time : Sep 02, 2024 03:04 PM Reporting Lab: [place] [facility] [address] [place] [address] Performin g Lab: [place] [facility] [address] [place] [address] [facility] COMPREHENSI VE METABOLIC PANEL CREATININE [MASS/VOLUME] IN SERUM OR PLASMA 0.89 mg/dL 0.7 - 1.3 09/05 Specimen Type: PLASMA No comment entered. Ordering Provider: ROSENDO DEL CASTILLO Report Released Date/Time : Sep 02, 2024 03:04 PM Reporting Lab: [place] [facility] [address] [place] [address] Performin g Lab: [place] [facility] [address] [place] [address] [facility] COMPREHENSI VE METABOLIC PANEL UREA NITROGEN [MASS/VOLUME] IN SERUM OR PLASMA 16 mg/dL 9 - 25 09/05 Specimen Type: PLASMA No comment entered. Ordering Provider: ROSENDO DEL CASTILLO Report Released Date/Time : Sep 02, 2024 03:04 PM Reporting Lab: [place] [facility] [address] [place] [address] Performin g Lab[place] [facility] [address] [place] [address] [facility] COMPREHENSI VE METABOLIC PANEL GLUCOSE [MASS/VOLUME] IN SERUM OR PLASMA 137 mg/dL 72 - 99 09/05 H Specimen Type: PLASMA No comment entered. Ordering Provider: ROSENDO DEL CASTILLO Report Released Date/Time : Sep 02, 2024 03:04 PM Reporting Lab: [place] [facility] [address] [place] [address] Performin g Lab: [place] [facility] [address] [place] [address] [facility] COMPREHENSI VE METABOLIC PANEL SODIUM [MOLES/VOLUME ] IN SERUM OR PLASMA 140 meq/L 136 - 145 09/05 Specimen Type: PLASMA No comment entered. Ordering Provider: ROSENDO DEL CASTILLO Report Released Date/Time : Sep 02, 2024 03:04 PM Reporting Lab: [place] [facility] [address] [place] [address] Performin g [facility]: [place] [facility] [address] [place] [address] [facility] COMPREHENSI VE METABOLIC PANEL POTASSIUM [MOLES/VOLUME ] IN SERUM OR PLASMA 3.8 meq/L 3.5 - 5 09/05 Specimen Type: PLASMA No comment entered. Ordering Provider: ROSENDO DEL CASTILLO Report Released Date/Time : Sep 02, 2024 03:04 PM Reporting Lab: [place] [facility] [address] [place] [address] Performin g Lab: [place] [facility] [address] [place] [address] 8 [facility] COMPREHENSI VE METABOLIC PANEL CHLORIDE [MOLES/VOLUME ] IN SERUM OR PLASMA 100 meq/L 98 - 107 09/05 Specimen Type: PLASMA No comment entered. Ordering Provider: ROSENDO DEL CASTILLO Report Released Date/Time : Sep 02, 2024 03:04 PM Reporting Lab: [place] [facility] [address] [place] [address] Performin g Lab: [place] [facility] [address] [place] [address] [facility] COMPREHENSI VE METABOLIC PANEL CARBON DIOXIDE, TOTAL [MOLES/VOLUME ] IN SERUM OR PLASMA 30 meq/L 22 - 31 09/05 Specimen Type: PLASMA No comment entered. Ordering Provider: ROSENDO DEL CASTILLO Report Released Date/Time : Sep 02, 2024 03:04 PM Reporting Lab: [place] [facility] [address] [place] [address] Performin g Lab: [place] [facility] [address] [place] [address] [facility] COMPREHENSI VE METABOLIC PANEL CALCIUM [MASS/VOLUME] IN SERUM OR PLASMA 9.1 mg/dL 8.4 - 10.4 09/05 Specimen Type: PLASMA No comment entered. Ordering Provider: ROSENDO DEL CASTILLO Report Released Date/Time : Sep 02, 2024 03:04 PM Reporting Lab: [place] [facility] [address] [place] [address] Performin g Lab: [place] [facility] [address] [place] [address] 8 [facility] COMPREHENSI VE METABOLIC PANEL PROTEIN [MASS/VOLUME] IN SERUM OR PLASMA 6.9 g/dL 6 - 8.6 09/05 Specimen Type: PLASMA No comment entered. Ordering Provider: ROSENDO DEL CASTILLO Report Released Date/Time : Sep 02, 2024 03:04 PM Reporting Lab: [place] [facility] [address] [place] [address] Performin g Lab: [place] [facility] [address] [place] [address] [facility] COMPREHENSI VE METABOLIC PANEL ALBUMIN [MASS/VOLUME] IN SERUM OR PLASMA 3.6 g/dL 3.4 - 5 09/05 Specimen Type: PLASMA No comment entered. Ordering Provider: ROSENDO DEL CASTILLO Report Released Date/Time : Sep 02, 2024 03:04 PM Reporting Lab: [place] [facility] [address] [place] [address] Performin g Lab: [place] [facility] [address] [place] [address] 8 [facility] COMPREHENSI VE METABOLIC PANEL BILIRUBIN.TOT AL [MASS/VOLUME] IN SERUM OR PLASMA 0.3 mg/dL 0.2 - 1.2 09/05 Specimen Type: PLASMA No comment entered. Ordering Provider: ROSENDO DEL CASTILLO Report Released Date/Time : Sep 02, 2024 03:04 PM Reporting Lab: [place] [facility] [address] [place] [address] 8 Performin g Lab: [place] [facility] [address] [place] [address] [facility] COMPREHENSI VE METABOLIC PANEL ALKALINE PHOSPHATASE [ENZYMATIC ACTIVITY/VOLU ME] IN SERUM OR PLASMA 62 U/L 40 - 150 09/05 Specimen Type: PLASMA No comment entered. Ordering Provider: ROSENDO DEL CASTILLO Report Released Date/Time : Sep 02, 2024 03:04 PM Reporting Lab: [place] [facility] [address] [place] [address] Performin g Lab: [place] [facility] [address] [place] [address] 8 [facility] COMPREHENSI VE METABOLIC PANEL ASPARTATE AMINOTRANSFER ASE [ENZYMATIC ACTIVITY/VOLU ME] IN SERUM OR PLASMA 11 U/L 5 - 34 09/05 Specimen Type: PLASMA No comment entered. Ordering Provider: ROSENDO DEL CASTILLO Report Released Date/Time : Sep 02, 2024 03:04 PM Reporting Lab: [place] [facility] [address] [place] [address] Performin g Lab: [place] [facility] [address] [place] [address] 8 [facility] COMPREHENSI VE METABOLIC PANEL ALANINE AMINOTRANSFER ASE [ENZYMATIC ACTIVITY/VOLU ME] IN SERUM OR PLASMA <7U/L 8 - 40 09/05 L Specimen Type: PLASMA No comment entered. Ordering Provider: ROSENDO DEL CASTILLO Report Released Date/Time : Sep 02, 2024 03:04 PM Reporting Lab: [place] [facility] [address] [place] [address] Performin g Lab: [place] [facility] [address] [place] [address] [facility] COMPREHENSI VE METABOLIC PANEL GLOMERULAR FILTRATION RATE/1.73 SQ M.PREDICTED [VOLUME RATE/AREA] IN SERUM, PLASMA OR BLOOD BY CREATININE-BA SED FORMULA (CKD-EPI 2020) 87 09/05 Specimen Type: PLASMA No comment entered. Ordering Provider: ROSENDO DEL CASTILLO Report Released Date/Time : Sep 02, 2024 03:04 PM Reporting Lab: [place] [facility] [address] [place] [address] Performin g Lab: [place] [facility] [address] [place] [address] [facility] CBC LEUKOCYTES [#/VOLUME] IN BLOOD BY AUTOMATED COUNT 3.6 10*3/u L 3.6 - 11.2 09/05 Specimen Type: BLOOD No comment entered. Ordering Provider: ROSENDO DEL CASTILLO Report Released Date/Time : Sep 02, 2024 03:04 PM Reporting Lab: [place] [facility] [address] [place] [address] Performin g Lab: [place] [facility] [address] [place] [address] 8 [facility] CBC ERYTHROCYTES [#/VOLUME] IN BLOOD BY AUTOMATED COUNT 3.70 10*6/u L 4.10 - 5.70 09/05 L Specimen Type: BLOOD No comment entered. Ordering Provider: ROSENDO DEL CASTILLO Report Released Date/Time : Sep 02, 2024 03:04 PM Reporting Lab: [place] [facility] [address] [place] [address] Performin g Lab: [place] [facility] [address] [place] [address] [facility] CBC HEMOGLOBIN [MASS/VOLUME] IN BLOOD 11.9 g/dL 13.1 - 16.8 09/05 L Specimen Type: BLOOD No comment entered. Ordering Provider: ROSENDO DEL CASTILLO Report Released Date/Time : Sep 02, 2024 03:04 PM Reporting Lab: [place] [facility] [address] [place] [address] Performin g Lab: [place] [facility] [address] [place] [address] [facility] CBC HEMATOCRIT [VOLUME FRACTION] OF BLOOD 38.0 38.2 - 48.4 09/05 L Specimen Type: BLOOD No comment entered. Ordering Provider: ROSENDO DEL CASTILLO Report Released Date/Time : Sep 02, 2024 03:04 PM Reporting Lab: [place] [facility] [address] [place] [address] Performin g Lab: [place] [facility] [address] [place] [address] 8 [facility] CBC MCV [ENTITIC VOLUME] BY AUTOMATED COUNT 102.7 fL 80.0 - 100.0 09/05 H Specimen Type: BLOOD No comment entered. Ordering Provider: ROSENDO DEL CASTILLO Report Released Date/Time : Sep 02, 2024 03:04 PM Reporting Lab: [place] [facility] [address] [place] [address] Performin g Lab: [place] [facility] [address] [place] [address] [facility] CBC MCH [ENTITIC MASS] BY AUTOMATED COUNT 32.2 pg 27.0 - 34.0 09/05 Specimen Type: BLOOD No comment entered. Ordering Provider: ROSENDO DEL CASTILLO Report Released Date/Time : Sep 02, 2024 03:04 PM Reporting Lab: [place] [facility] [address] [place] [address] Performin g Lab: [place] [facility] [address] [place] [address] [facility] CBC MCHC [MASS/VOLUME] BY AUTOMATED COUNT 31.3 g/dL 33.0 - 36.0 09/05 L Specimen Type: BLOOD No comment entered. Ordering Provider: ROSENDO DEL CASTILLO Report Released Date/Time : Sep 02, 2024 03:04 PM Reporting Lab: [place] [facility] [address] [place] [address] Performin g Lab: [place] [facility] [address] [place] [address] [facility] CBC PLATELETS [#/VOLUME] IN BLOOD BY AUTOMATED COUNT 213 10*3/u L 150 - 400 09/05 Specimen Type: BLOOD No comment entered. Ordering Provider: ROSENDO DEL CASTILLO Report Released Date/Time : Sep 02, 2024 03:04 PM Reporting Lab: [place] [facility] [address] [place] [address] Performin g Lab: [place] [facility] [address] [place] [address] [facility] CBC PLATELET MEAN VOLUME [ENTITIC VOLUME] IN BLOOD BY AUTOMATED COUNT 11.0 fL 7.5 - 11.2 09/05 Specimen Type: BLOOD No comment entered. Ordering Provider: ROSENDO DEL CASTILLO Report Released Date/Time : Sep 02, 2024 03:04 PM Reporting Lab: [place] [facility] [address] [place] [address] Performin g Lab: [place] [facility] [address] [place] [address] [facility] CBC ERYTHROCYTE DISTRIBUTION WIDTH [RATIO] BY AUTOMATED COUNT 13.8 11.8 - 15.1 09/05 Specimen Type: BLOOD No comment entered. Ordering Provider: ROSENDO DEL CASTILLO Report Released Date/Time : Sep 02, 2024 03:04 PM Reporting Lab: [place] [facility] [address] [place] [address] Performin g Lab: [place] [facility] [address] [place] [address] [facility] CBC LYMPHOCYTES/1 00 LEUKOCYTES IN BLOOD BY AUTOMATED COUNT 19.3 09/05 Specimen Type: BLOOD No comment entered. Ordering Provider: ROSENDO DEL CASTILLO Report Released Date/Time : Sep 02, 2024 03:04 PM Reporting Lab: [place] [facility] [address] [place] [address] Performin g Lab: [place] [facility] [address] [place] [address] [facility] CBC MONOCYTES/100 LEUKOCYTES IN BLOOD BY AUTOMATED COUNT 13.7 09/05 Specimen Type: BLOOD No comment entered. Ordering Provider: ROSENDO DEL CASTILLO Report Released Date/Time : Sep 02, 2024 03:04 PM Reporting Lab: [place] [facility] [address] [place] [address] Performin g Lab: [place] [facility] [address] [place] [address] 8 [facility] CBC NEUTROPHILS/1 00 LEUKOCYTES IN BLOOD BY AUTOMATED COUNT 63.4 09/05 Specimen Type: BLOOD No comment entered. Ordering Provider: ROSENDO DEL CASTILLO Report Released Date/Time : Sep 02, 2024 03:04 PM Reporting Lab: [place] [facility] [address] [place] [address] 8 Performin g Lab: [place] [facility] [address] [place] [address] [facility] CBC EOSINOPHILS/1 00 LEUKOCYTES IN BLOOD BY AUTOMATED COUNT 1.1 09/05 Specimen Type: BLOOD No comment entered. Ordering Provider: ROSENDO DEL CASTILLO Report Released Date/Time : Sep 02, 2024 03:04 PM Reporting Lab: [place] [facility] [address] [place] [address] 8 Performin g Lab: [place] [facility] [address] [place] [address] 8 [facility] CBC BASOPHILS/100 LEUKOCYTES IN BLOOD BY AUTOMATED COUNT 1.1 09/05 Specimen Type: BLOOD No comment entered. Ordering Provider: ROSENDO DEL CASTILLO Report Released Date/Time : Sep 02, 2024 03:04 PM Reporting Lab: [place] [facility] [address] [place] [address] 8 Performin g Lab: [place] [facility] [address] [place] [address] 8 [facility] CBC LYMPHOCYTES [#/VOLUME] IN BLOOD BY AUTOMATED COUNT 0.69 10*3/u L 0.77 - 4.50 09/05 L Specimen Type: BLOOD No comment entered. Ordering Provider: ROSENDO DEL CASTILLO Report Released Date/Time : Sep 02, 2024 03:04 PM Reporting Lab: [place] [facility] [address] [place] [address] Performin g Lab: [place] [facility] [address] [place] [address] 8 [facility] CBC MONOCYTES [#/VOLUME] IN BLOOD BY AUTOMATED COUNT 0.49 10*3/u L 0.19 - 0.8 09/05 Specimen Type: BLOOD No comment entered. Ordering Provider: ROSENDO DEL CASTILLO Report Released Date/Time : Sep 02, 2024 03:04 PM Reporting Lab: [place] [facility] [address] [place] [address] 8 Performin g Lab: [place] [facility] [address] [place] [address] [facility] CBC NEUTROPHILS [#/VOLUME] IN BLOOD BY AUTOMATED COUNT 2.27 10*3/u L 2.10 - 8.00 09/05 Specimen Type: BLOOD No comment entered. Ordering Provider: ROSENDO DEL CASTILLO Report Released Date/Time : Sep 02, 2024 03:04 PM Reporting Lab: [place] [facility] [address] [place] [address] Performin g Lab: [place] [facility] [address] [place] [address] [facility] CBC EOSINOPHILS [#/VOLUME] IN BLOOD BY AUTOMATED COUNT 0.04 10*3/u L 0.00 - 0.60 09/05 Specimen Type: BLOOD No comment entered. Ordering Provider: ROSENDO DEL CASTILLO Report Released Date/Time : Sep 02, 2024 03:04 PM Reporting Lab: [place] [facility] [address] [place] [address] 8 Performin g Lab: [place] [facility] [address] [place] [address] [facility] CBC BASOPHILS [#/VOLUME] IN BLOOD BY AUTOMATED COUNT 0.04 10*3/u L 0.00 - 0.20 09/05 Specimen Type: BLOOD No comment entered. Ordering Provider: ROSENDO DEL CASTILLO Report Released Date/Time : Sep 02, 2024 03:04 PM Reporting Lab: [place] [facility] [address] [place] [address] Performin g Lab: [place] [facility] [address] [place] [address] 8 [facility] CBC IMMATURE GRANULOCYTES/ 100 LEUKOCYTES IN BLOOD BY AUTOMATED COUNT 1.4 09/05 Specimen Type: BLOOD No comment entered. Ordering Provider: ROSENDO DEL CASTILLO Report Released Date/Time : Sep 02, 2024 03:04 PM Reporting Lab: [place] [facility] [address] [place] [address] 8 Performin g Lab: [place] [facility] [address] [place] [address] [facility] CBC IMMATURE GRANULOCYTES [#/VOLUME] IN BLOOD BY AUTOMATED COUNT 0.05 10*3/u L 0.00 - 0.05 09/05 Specimen Type: BLOOD No comment entered. Ordering Provider: ROSENDO DEL CASTILLO Report Released Date/Time : Sep 02, 2024 03:04 PM Reporting Lab: [place] [facility] [address] [place] [address] Performin g Lab: [place] [facility] [address] [place] [address] [facility] HGA1C HEMOGLOBIN A1C/HEMOGLOBI N.TOTAL IN BLOOD 9.4 4.0 - 6.0 07/27 H Specimen Type: BLOOD No comment entered. Ordering Provider: ROSENDO DEL CASTILLO Report Released Date/Time : Jul 28, 2023 10:45 AM Reporting Lab: [place] [facility] [address] [place] [address] Performin g Lab: [place] [facility] [address] [place] [address] 8 [facility] Vital Signs Combined list of inpatient and outpatient Vital Signs from Department of Defense and Veterans Affairs, ranging from 12 months to all on record, depending upon the facility. Vital Sign Value Date Comments Source SYSTOLIC BLOOD PRESSURE 96 09/05/2024 09:00:00 [facility] DIASTOLIC BLOOD PRESSURE 61 09/05/2024 09:00:00 [facility] PULSE OXIMETRY 94 % 09/05/2024 09:00:00 [facility] WEIGHT 185.4 09/05/2024 09:00:00 [facility] BMI 23 kg/m2 09/05/2024 09:00:00 [facility] PAIN 0 09/05/2024 09:00:00 [facility] TEMPERATURE 97.5 09/05/2024 09:00:00 [facility] PULSE 66 09/05/2024 09:00:00 [facility] RESPIRATION 18 09/05/2024 09:00:00 [facility] Encounters Combined list of: 1) Encounters from Department of [facility] Affairs facilities going backup to the last 18 months, not all VA inpatient encounters are included; 2) Encounters from the Department of [facility] facilities going backup to 280 months. Location Location Details Encounter Type Encounter Number Reason For Visit Attending Provider ADM Date DC Date Status Disposition Source [facility] Outpatient Encounter [id number] 03/12 [facility] Outpatient Encounter [id number] 05/15 [facility] Outpatient Encounter [id number] 06/12 [facility] Outpatient Encounter [id number] MAXINE DEL CASTILLO 07/27 [facility] Outpatient Encounter [id number] PAUL DE LEON 07/30 [facility] Outpatient Encounter [id number] 08/16 [facility] Outpatient Encounter [id number] 08/17 [facility] Outpatient Encounter [id number] 09/01 [facility] [id number] Diagnos is: ICD-10- CM Z00.01 Encount er for general adult medical exam w abnorma l finding s CARLOSFELICITA Ca 09/01 [facility] OFFICE O/P EST MOD 30 MIN [id number] Diagnos is: ICD-10- CM Z00.01 Encount er for general adult medical exam w abnorma l finding s MAXINE DEL CASTILLO Ronak 09/01 [facility] Outpatient Encounter [id number] 09/14 [facility] Outpatient Encounter [id number] 12/01 [facility] Outpatient Encounter [id number] 12/03 [facility] Outpatient Encounter [id number] 01/21 [facility] Outpatient Encounter [id number] 02/04 [facility] Outpatient Encounter [id number] 08/02 [facility] Outpatient Encounter [id number] 08/23 [facility] Outpatient Encounter [id number] 09/05 [facility] TELEHEALTH FACILITY FEE [id number] Diagnos is: ICD-10- CM Z00.01 Encount er for general adult medical exam w abnorma l finding s MAXINE DEL CASTILLO R 09/05 [facility] Outpatient Encounter [id number] Diagnos is: ICD-10- CM Z00.01 Encount er for general adult medical exam w abnorma l finding s MAXINE DEL CASTILLO R 09/05 [facility] Social History Combined list of available smoking, tobacco, and other social history from Department of Defense and Veterans Affairs facilities. Social History Type Response Date Comment Source Tobacco smoking status [facility] VA-TOBACCO USE FORMER CIGARETTES 09/05/2024 [facility] History of tobacco use VA-TOBACCO NEVER USED OTHER TYPE 09/05/2024 [facility] History of tobacco use VA-TOBACCO FORMER USER 09/02/2023 [facility] History of tobacco use VA-TOBACCO FORMER USER 07/30/2022 [facility] History of tobacco use VA-TOBACCO USER EVERY DAY 07/18/2021 [facility] History of tobacco use CURRENT NON-TOBACCO USER-HX OF USE 05/25/2018 [facility] History of tobacco use TOBACCO USER OFFERED MEDS 05/13/2017 [facility] History of tobacco use TOBACCO OFFERED PT MEDS (PROVIDER) 07/25/2015 [facility] History of tobacco use TOBACCO OFFERED PT MEDS (PROVIDER) 07/14/2012 [facility] History of tobacco use TOBACCO OFFERED PT MEDS (PROVIDER) 12/10/2010 [facility] History of tobacco use LIFETIME NON-USER OF TOBACCO 04/18/2010 [facility] History of tobacco use CURRENT TOBACCO USER 03/07/2009 [facility] History of tobacco use QUIT TOBACCO IN THE LAST 12 MONTHS 03/01/2008 [facility] History of tobacco use CURRENT TOBACCO USER 06/03/[address] [facility] History of tobacco use CURRENT TOBACCO USER 01/19/2007 see pcp note [phone] [facility] History of tobacco use QUIT TOBACCO >7 YEARS AGO 05/04/2006 [facility] History of tobacco use CURRENT TOBACCO USER 09/26/2005 [facility] History of tobacco use CURRENT NON-TOBACCO USER-HX OF USE 07/16/2005 [facility] History of tobacco use CURRENT TOBACCO USER 06/03/2005 [facility] History of tobacco use CURRENT NON-TOBACCO USER-HX OF USE 01/06/2005 Stopped with nicotine patches 1 year ago [facility] History of tobacco use CURRENT NON-TOBACCO USER-HX OF USE 08/21/2004 [facility] History of tobacco use CURRENT NON-TOBACCO USER-RECENTLY QUIT 07/16/2004 [facility] History of tobacco use CURRENT TOBACCO USER 06/17/2004 [facility] History of tobacco use CURRENT TOBACCO USER 01/23/2004 [facility] History of tobacco use CURRENT TOBACCO USER 12/20/2003 [facility] Advance Directives List of completed, amended, or rescinded Advance Directives on record at Department of [facility] Affairs facilities. An actual copy of the Directive is not included. Date Advance Directive Provider Source 03/04/2004 ADVANCE DIRECTIVE LAUREN REYES [facility]
--- OUTSIDE RECORDS SUMMARY | 2024-09-29 05:00 | XMS_ITS ---
Author Organization [employer] [facility], [facility] Address [address] [place] [address] Care Team Providers Care Drop Forge Operator Name Role Phone Katelin WYATT, Jose Primary Care Provider Unavailab LYDIA Malave Unavailable [phone] Jong Hercules Unavailable [phone] Allergies Allergen (clinical drug ingredient) Drug/Non Drug Allergy documented on EMR Reaction Allergy Type Onset Date Status vancomycin Vancomycin hives Drug Allergy Activ e REASON FOR VISIT 2 wk SPT change Medications Medication SIG (Take, Route, Frequency, Duration) Notes Start Date End Date Status Zoladex 10.8 MG as directed Subcutaneous Not-Taking Cetirizine HCl 10 MG 1 tablet Orally Onc e a day Not-Taking carBAMazepine ER 100 MG 1 tablet Orally Twice a day Not-Taking Alfuzosin HCl Not-Sherif stanley Abiraterone Acetate 500 MG 2 tablets Orally Once a day Not-Taking Promethazine HCl 6.25 MG/5ML 10 mL as needed Orally every 6 hrs Not-Taking Ondansetron HCl 4 MG 1 tablet Orally Onc e a day Not-Taking Flonase Not-Taking Triamcinolone (oint)-Silicone Not-Taking Mupirocin 2 % 1 application Externally Twice a day Not-Taking Esomeprazole Magnesium 40 MG 1 capsule Orally Once a day Not-Taking Albuterol Not-Taking predniSONE 5 MG 1 tablet Orally Once a day Not-Taking Meclizine HCl Not-Sherif stanley levoFLOXacin 500 MG 1 tablet Orally Once a day Not-Taking Prochlorperazine Not -Taking glipiZIDE 2.5 MG 1 tablet 30 minutes before breakfast Orally Once a day Not-Taking Finasteride 5 MG 1 tablet Orally Once a day; Duration: 90 days 05/17/2024 05/12/2025 Not-Taking Fluconazole 100 MG 1 tablet Orally Not-Taking Metoprolol Succinate ER 25 MG 1 tablet Orally Once a day Not-Taking predniSONE Not-Francisco fuller Renacidin - as directed Irrigation 4 times a day; Duration: 10 days Instill one 30 mL container of Renacidin into the bladder through the urethral catheter or cystostomy tube. Clamp the urethral catheter or cystostomy tube for 30 to 60 minutes. Release the clamp and drain the bladder. Repeat the procedure 4 to 6 times a day or as directed by your doctor. Monitor for dissolution of the calcifications. 09/29/2024 10/09/2024 Active Nasal [place] Not-Charis mcnally Cipro 500 MG 1 tablet Orally twic e a day; Duration: 10 days 09/19/2024 09/29/2024 Not-Taking Probiotic Acidophilus - as directed Oral ly 3 times a day; Duration: 10 days 09/19/2024 09/29/2024 Active Januvia 100 MG 1 tablet Orally Once a day Active Eliquis 5 MG 1 tablet Orally Twic e a day Active Aspirin 81 81 MG 1 tablet Orally Once a day Active PreserVision AREDS 2 Active Famotidine 20 MG 1 tablet at bedtime as needed Orally twice a day 40mg Active Probiotic Active Montelukast Sodium 10 MG 1 tablet Orally Once a day Active Metoclopramide HCl 5 MG 1 tablet before meals Orally Twice a day Active Levothyroxine Sodium 175 MCG 1 tablet in the morning on an empty stomach Orally Once a day Active Rosuvastatin Calcium 40 MG 1 tablet Orally Once a day Active LORazepam 2 MG/ML 1 mL as needed Orall y Twice a day Active Xgeva 120 MG/1.7ML as directed Subcutaneous Active Nitroglycerin Active Morphine Sulfate 15 MG 1 tablet as needed Orally every 6 hrs As needed Active traZODone HCl 50 MG 1 tablet at bedtime as needed Orally Once a day Active Ipratropium [place] Active Xtandi Active Ondansetron 8 MG 1 tablet on the tongue and allow to dissolve as needed Orally Once a day Active Tylenol Active Claritin Active Trelegy Ellipta 100-62.5-25 MCG/ACT 1 puff Inhalation Once a day Active Tamsulosin HCl 0.4 MG 1 capsule Orally O nce a day Active Vitamin D Active Calcium Active Triamcinolone Acet & Anesth Active Vitamin D3 Active Vital Signs Blood pressure systolic 107 mm Hg 09/30/19 25 Blood pressure diastolic 68 mm Hg 025 Heart Rate 74 /min 09/29/2024 Height 75 in 09/29/2024 Height-cm 190.5 cm 09/29/2024 Procedures Procedure Date Ordered Date Performed Result Body Sit e SP Tube Change 09/29/2024 09/29/2024 N/A Encounters Encounter Location Date Provider Diagnosis [facility] [address] [place] [address] 09/29/2024 Jong Hercules Bladder calculus N21.0 Assessments Encounter Date Diagnosis (ICD Code) Assessment Notes Treatment Notes Treatment Clinical Notes Section Notes 09/29/2024 Bladder calculus (ICD-10 - N21.0) Discussed case with Jennifer Hercules APRN and akur was in appropriate placement. It was recommended on moving forward with renacidin due to continued kaur clogging. Plan Of Treatment Medication Medication Name Sig Start Date Stop Date Notes Renacidin - as directed Irrigati on 4 times a day; Duration: 10 days 09/29/2024 10/09/2024 Next Appt Details Provider Name:JONG Simons, 10/13/2024 10:00:00 AM, [address] [place], [address], Provider Name:JONG Simons, 11/30/2024 10:15:00 AM, [address] [place], [address], Progress Notes * ANNAMARIA BRANDON RDOB:[birth year] (79 yo M)Acc No.[id number]:09/29/2024 Progress Note Patient: ANNAMARIA TOPETE Provider: Roby Hercules APRN :1945 A ge:79 Y S ex:Male Date:09/29/2024 Address:[address] [place], [place] [id number] Pcp:Jose Thomason MD Subjective: * Chief Complaints: * 1 . 2 wk SPT change. * Medical History: P neumonia, Arthritis, Bladder infections, Diabetes, Prostate cancer, Hernia, Hernia, Back Trouble, High Blood Pressure, Hematuria, COPD, LUTS, Bone cancer. * Surgical History: L eft Knee Replacement 02/2004, Right Knee Replacement 09/2012, Orchiectomy 04/2017, Back Surgery 02/2020. * Hospitalization/Major Diagno stic Procedure: S ee Prior sx hx . * Medications: T aking Vitamin D3 , Taking Triamcinolone Acet & Anesth , Taking Trelegy Ellipta 100-62.5-25 MCG/ACT Aerosol Powder Breath Activated 1 puff Inhalation Once a day , Taking Tamsulosin HCl 0.4 MG Capsule 1 capsule Orally Once a day , Taking Vitamin D , Taking Calcium , Taking Ipratropium [place] , Taking Xtandi , Taking Ondansetron 8 [...] a day , Notes to Pharmacist: 40mg, Taking Probiotic Acidophilus - Capsule as directed Orally 3 times a day , stop date 09/29/2024, Not-Taking Cipro 500 MG Tablet 1 tablet Orally twice a day , stop date 09/29/2024, Not-Taking predniSONE , Not-Taking Nasal [place] , Not-Taking Fluconazole 100 MG Tablet 1 [...] 1 application Externally Twice a day , Not- Taking Promethazine HCl 6.25 MG/5ML Solution 10 mL as needed Orally every 6 hrs , Not- Taking Ondansetron HCl 4 MG Tablet 1 tablet [...] Tablet 2 tablets Orally Once a day * Allergies: V ancomycin: hives - Allergy. Objective: * Vitals: B P: 107/68 mm Hg, HR: 74 /min, Ht: 75 in, Ht-cm: 190.5 cm. Assessment: * Assessment: 1. B ladder calculus - N21.0 Discussed case with Jennifer ruffin APRN and kaur was in appropriate placement. It was recommended on moving forward with renacidin due to continued kaur clogging. Plan: * Treatment: * Procedure Codes: 5 1705 CHANGE OF BLADDER TUBE * Billing Information: * Visit Code: * Procedure Codes: 14681 CHANGE OF BLADDER TUBE. * Electronic signature of Mihir Hercules APRN on 09/30/2024 at 12:46 PM CDT Sign off status: Pending * Provider: Roby Hercules APRN Date: 0 09/29/2024 Generated for Luc mcnally/Dudley/Miguelito on: 0 09/30/2024 12:46 PM CDT
[2024-09-30] VITALS (8 sets, daily range): BP systolic 93–105; BP diastolic 58–62; PULSE 67–93; RESP 16–18; TEMP 36.7–37.2; O2SAT 94–99
--- OUTSIDE RECORDS SUMMARY | 2024-09-30 12:45 | XMS_ITS | Encounter Summary ---
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
--- OUTSIDE RECORDS SUMMARY | 2024-09-30 12:45 | XMS_ITS | Clinical Summary ---
Author Organization [facility] Address [address] 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 Gender Identity Not on file [...] , 07/24/2014, 02/10/2012, Additional history exists [place] [address] [place] [id number] Member Subscriber Plan / Payer (Ef fective 2021-Present) Name:Charlie Jacobs Relation to Subscriber:Self Name:Charlie Jacobs Payer ID:[id number] (NAIC) Type:PPO Address: [address] [id number] [place] Member Subscriber Plan / Payer (Ef fective 2021-Present) Name:Charlie Jacobs Relation to Subscriber:Self Name:Charlie Jacobs Payer ID:Not on file Group ID:Not on file Type:Medicaid Address: [address] [address] Care Teams Vault Attendant Relationship Specialty Start Date End Date Henry Bunch DO [address] [place] [address] PCP - General Internal Medicine 06/08/18
--- OUTSIDE RECORDS SUMMARY | 2024-09-30 12:45 | XMS_ITS | Clinical Summary ---
Author Organization [facility] Address [address] 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
--- OUTSIDE RECORDS SUMMARY | 2024-09-30 12:46 | XMS_ITS | Patient Health Record ---
Author Organization [facility] Address [address] [place] [address] Care Team Providers Care Backrest Assembler Name Role Phone Katelin WYATT, Jose Primary Care Provider Unavailab LYDIA Malave Unavailable [phone] JONG MENJIVAR Unavailable [phone] JILLIAN MENDOZA Unavailable [phone] Jong Hercules Unavailable [phone] Allergies Allergen (clinical drug ingredient) Drug/Non Drug Allergy documented on EMR Reaction Allergy Type Onset Date Status vancomycin Vancomycin hives Drug Allergy Activ e Results Component Value Reference Range Notes UBASE - Urinary Tract Infect ion (HTRx) Reviewed date:09/19/2024 08:54:48 AM Interpretation: Performing Lab:, [facility] at [address], Phone - [phone], Director - [id number] Notes/Report: CTX-M1 (15), M2 (2), M9 (9), [...] lugdunensis Not Detected 19.961 - 24.689 ppm Urinalysis, Routine Reviewed date:10/01/2023 11:27:10 AM Interpretation: Performing Lab: Notes/Report: Urine-Color dark yellow Appearance cloudy Glucose - Bilirubin - Ketones - Specific [place] 1.030 Occult Blood 3+ pH 6.0 Urine Protein 2+ Urobilinogen,Semi-Qn - Nitrite, Urine pos WBC Esterase 2+ Urinalysis, Routine Reviewed date:10/20/2023 04:12:17 PM Interpretation: Performing Lab: Notes/Report: Urine-Color dark yellow Appearance cloudy Glucose - Bilirubin - Ketones - Specific [place] 1.025 Occult Blood 3+ pH 6.0 Urine Protein 3+ Urobilinogen,Semi-Qn - Nitrite, Urine - WBC Esterase 3+ Reason For Referral No Information Medications Medication SIG (Take, Route, Frequency, Duration) Notes Start Date End Date Status Rosuvastatin Calcium 40 MG 1 tablet Orally Once a day Active Januvia 100 MG 1 tablet Orally Once a day Active Eliquis 5 MG 1 tablet Orally Twic e a day Active Aspirin 81 81 MG 1 tablet Orally Once a day Active PreserVision AREDS 2 Active Probiotic Active Montelukast Sodium 10 MG 1 tablet Orally Once a day Active Metoclopramide HCl 5 MG 1 tablet before meals Orally Twice a day Active Levothyroxine Sodium 175 MCG 1 tablet in the morning on an empty stomach Orally Once a day Active Famotidine 20 MG 1 tablet at bedtime as needed Orally twice a day 40mg Active Prochlorperazine Not -Taking glipiZIDE 2.5 MG 1 tablet 30 minutes before breakfast Orally Once a day Not-Taking Finasteride 5 MG 1 tablet Orally Once a day; Duration: 90 days 05/17/2024 05/12/2025 Not-Taking Esomeprazole Magnesium 40 MG 1 capsule Orally Once a day Not-Taking predniSONE Not-Francisco g Renacidin - as directed Irrigation 4 times [...] of the calcifications. 09/29/2024 10/09/2024 Active Nasal [place] Not- ng Fluconazole 100 MG 1 tablet Orally Not-Taking Metoprolol Succinate ER 25 MG 1 tablet Orally Once a day Not-Taking Trelegy Ellipta 100-62.5-25 MCG/ACT 1 puff Inhalation Once a day Active Tamsulosin HCl 0.4 MG 1 capsule Orally O nce a day Active predniSONE 5 MG 1 tablet Orally Once a day Not-Taking Vitamin D Active Meclizine HCl Not-[facility] [place] Calcium Active levoFLOXacin 500 MG 1 tablet Orally Once a day Not-Taking Vitamin D3 Active Triamcinolone Acet & Anesth Active Promethazine HCl 6.25 MG/5ML 10 mL as needed Orally every 6 hrs Not-Taking Ondansetron HCl 4 MG 1 tablet Orally Onc e a day Not-Taking Zoladex 10.8 MG as directed Subcutaneous Not-Taking Albuterol Not-Taking Flonase Not-Taking Triamcinolone (oint)-Silicone Not-Taking Mupirocin 2 % 1 application Externally Twice a day Not-Taking Ipratropium [place] Active Xtandi Active Ondansetron 8 MG 1 tablet on the tongue and allow to dissolve as needed Orally Once a day Active LORazepam 2 MG/ML 1 mL as needed Orall y Twice a day Active Cetirizine HCl 10 MG 1 tablet Orally Onc e a day Not-Taking Xgeva 120 MG/1.7ML as directed Subcutaneous Active carBAMazepine ER 100 MG 1 tablet Orally Twice a day Not-Taking Nitroglycerin Active Alfuzosin HCl Not- jaden Abiraterone Acetate 500 MG 2 tablets Orally Once a day Not-Taking Tylenol Active Claritin Active Morphine Sulfate 15 MG 1 tablet as needed Orally every 6 hrs As needed Active traZODone HCl 50 MG 1 tablet at bedtime as needed Orally Once a day Active Social History Tobacco [...] Status Risk Notes Problem Incision of bladder (36164226) Encounter for attention to cystostomy (Z43.5) Active confirmed Problem Type II diabetes mellitus without complication (483962058) Type 2 diabetes mellitus without complication, unspecified whether technician terminal and repeater insulin use (E11.9) Active confirmed Problem Suprapubic catheter (995948996) Suprapubic catheter (Z93.59) Active confirmed Problem Bladder calculus (36595363) Bladder calculus (N21.0) Active confirmed Problem Encounter for suprapubic catheter care (Z43.5) Active confirmed Problem COPD - Chronic obstructive pulmonary disease (86487036) Chronic obstructive pulmonary disease, unspecified COPD type (J44.9) Active confirmed Problem Change of urinary catheter bag (procedure) (750246686) Catheter (urine) change required (Z46.6) Active confirmed Problem History of radiation exposure (570964514) S/P radiation therapy (Z92.3) Active confirmed Problem Metastatic adenocarcinoma to prostate (6883667756) Metastatic adenocarcinoma to prostate (C79.82) Active confirmed Problem Malignant tumor of prostate (562442747) Prostate cancer (C61) Active confirmed Vital Signs Heart Rate 74 /min 09/29/2024 Height-cm 190.5 cm 09/29/2024 Blood pressure diastolic 68 mm Hg 09/29/2024 Weight-kg 77.11 kg 09/15/2024 Height 75 in 09/29/2024 Blood pressure systolic 107 mm Hg 09/29/2024 Weight 170 lbs 09/15/2024 BMI 21.25 kg/m2 [...] 09/01/2024 09/01/2024 N/A Catheter Insertion-Routine 09/15/2024 N/A SP Tube Change 09/29/2024 09/29/2024 N/A Encounters Encounter Location Date Provider Diagnosis [facility] [address] [place] [address] 03/30/2024 LYDIA GONZALES [facility] [address] [facility] [place] [address] 09/29/2024 Jong Hercules Bladder calculus N21 .0 [facility] [address] [place] [address] 10/01/2023 LYDIA GONZALES Bladder calculus N21 .0 ; Abnormal urine finding R82.90 ; Gross hematuria R31.0 ; Suprapubic catheter Z93.59 ; Urinary retention R33.9 ; Prostate cancer C61 ; Metastatic adenocarcinoma to prostate C79.82 ; History of orchiectomy, 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 ; S/P radiation therapy Z92.3 and Encounter for attention to cystostomy Z43.5 [facility], [facility] [address] [facility] [place] [address] 10/20/2023 JONG MENJIVAR Bladder calculus N21 .0 ; Urinary retention R33.9 ; Abnormal urine finding R82.90 ; Gross hematuria R31.0 ; Suprapubic catheter Z93.59 ; Prostate cancer C61 ; Metastatic adenocarcinoma to prostate C79.82 ; History of orchiectomy, 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 ; S/P radiation therapy Z92.3 ; Encounter for attention to cystostomy Z43.5 and Complicated UTI (urinary tract infection) N39.0 [facility], [facility] [address] [facility] [place] [address] 10/27/2023 LYDIA GONZALES Urinary retention R3 3.9 ; Prostate cancer C61 ; Metastatic adenocarcinoma to prostate C79.82 ; History of orchiectomy, 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 ; S/P radiation therapy Z92.3 and Encounter for attention to cystostomy Z43.5 [facility], [facility] [address] [facility] [place] [address] 12/01/2023 JILLIAN MENDOZA Encounter for attent ion to cystostomy Z43.5 and Suprapubic catheter Z93.59 [facility], [facility] [address] [facility] [place] [address] 12/29/2023 JONG MENJIVAR Urinary retention R3 3.9 and Encounter for suprapubic catheter care Z43.5 [facility], [facility] [address] [facility] [place] [address] 02/17/2024 JONG MENJIVAR Encounter for suprapubic catheter care Z43.5 and Urinary retention R33.9 [facility], [facility] [address] [facility] [place] [address] 03/02/2024 JONG MENJIVAR Urinary retention R3 3.9 ; Prostate cancer C61 ; Metastatic adenocarcinoma to prostate C79.82 ; History of orchiectomy, 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 ; S/P radiation therapy Z92.3 and Encounter for attention to cystostomy Z43.5 [facility] [address] [facility] [place] [address] 03/09/2024 JONG MENJIVAR Trigonitis N30.30 [facility] [address] [facility] [place] [address] 04/06/2024 LYDIA GONZALES Urinary retention R3 3.9 ; Prostate cancer C61 ; Metastatic adenocarcinoma to prostate C79.82 ; History of orchiectomy, 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 and S/P radiation therapy Z92.3 [facility] [address] [facility] [place] [address] 05/31/2024 JONG MENJIVAR Urinary retention R3 3.9 ; Prostate cancer C61 ; Metastatic adenocarcinoma to prostate C79.82 ; History of orchiectomy, 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 and S/P radiation therapy Z92.3 [facility] [address] [facility] [place] [address] 06/21/2024 JONG MENJIVAR Encounter for suprapubic catheter care Z43.5 and Urinary retention R33.9 [facility] [address] [facility] [place] [address] 07/12/2024 JONG MENJIVAR Encounter for suprapubic catheter care Z43.5 and Prostate cancer C61 [facility] [address] [facility] [place] [address] 08/03/2024 JONG MENJIVAR Encounter for suprapubic catheter care Z43.5 and Prostate cancer C61 [facility] [address] [facility] [place] [address] 08/18/2024 Jong Hercules Urinary retention R3 3.9 ; Prostate cancer C61 ; Metastatic adenocarcinoma to prostate C79.82 ; History of orchiectomy, 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 ; S/P radiation therapy Z92.3 and Encounter for attention to cystostomy Z43.5 [facility] [address] [facility] [place] [address] 09/01/2024 Jong Hercules Encounter for attent ion to cystostomy Z43.5 and Urinary retention R33.9 [facility] [address] [facility] [place] [address] 09/15/2024 Jong Hercules Encounter for attent ion to cystostomy Z43.5 ; Dysuria R30.0 and Acute urinary retention R33.8 [facility] [address] [place] [address] 10/13/2023 LYDIA REANO [facility] [address] [place] [address] 12/15/2023 LYDIA REANO [facility] [address] [place] [address] 01/18/2024 JILLIAN MENDOZA [facility] [address] [place] [address] 02/16/2024 LYDIA REANO [facility] [address] [place] [address] 02/18/2024 LYDIA REANO [facility] [address] [place] [address] 2024 JONG MENJIVAR [facility] [address] [place] [address] 2024 JONG MENJIVAR [facility] [address] [place] [address] 2024 LYDIA REANO [facility] [address] [place] [address] 04/04/2024 LYDIA REANO [facility] [address] [place] [address] 04/05/2024 JONG MENJIVAR [facility] [address] [place] [address] 05/17/2024 JONG MENJIVAR [facility] [address] [place] [address] 05/24/2024 LYDIA REANO [facility] [address] [place] [address] 05/30/2024 LYDIA REANO [facility] [address] [place] [address] 09/19/2024 Jong Hercules Assessments Encounter Date Diagnosis (ICD Code) Assessment Notes Treatment Notes Treatment Clinical Notes Section Notes 10/20/2023 Bladder calculus (ICD-10 - N21.0) He [...] than 50% of that time in direct mgqw-yx-rozl discussion. 12/01/2023 Encounter for attention to cystostomy (ICD-10 [...] return in 4 wks for repeat change. 10/20/2023 Urinary retention (ICD-10 - R33.9) He [...] than 50% of that time in direct ioxd-ab-teea discussion. 03/02/2024 Prostate cancer (ICD-10 - C61) PSA [...] and scheduled for next available cystolithalopaxy at [facility]. He recently started having sptube [...] and scheduled for next available cystolithalopaxy at [facility]. He recently started having sptube [...] it is both accurate and complete. 04/06/2024 Prostate cancer (ICD-10 - C61) 04/06/2024 Urinary retention (ICD-10 - R33.9) 08/03/2024 Encounter for suprapubic catheter care (ICD-10 - Z43.5) Pt here for routine sptube change and he tolerated well. He will return in 3wks of repeat change. 08/18/2024 Prostate cancer (ICD-10 - C61) We discussed previous office visit with Dr. Menjivar where patient was needed to have dilation up to 16 Italian and a 16 Italian suprapubic tube back into the bladder under [...] needed to have dilation up to 16 Italian and a 16 Italian suprapubic tube back into the bladder under [...] return in 2 weeks for routine change. 09/29/2024 Bladder calculus (ICD-10 - N21.0) Discussed case with Jennifer Hercules APRN and kaur was in appropriate placement. It was recommended on moving forward with renacidin due to continued kaur clogging. 07/12/2024 Encounter for suprapubic catheter care (ICD-10 - Z43.5) Pt here for routine sptube change and he tolerated well. He will return in 3wks of repeat change. 07/12/2024 Prostate cancer (ICD-10 - C61) Pt here for routine sptube change and he tolerated well. He will return in 3wks of repeat change. 03/09/2024 Trigonitis (ICD-10 - N30.30) 02/17/2024 Encounter [...] next office visit and then again q4wks. 10/27/2023 Prostate cancer (ICD-10 - C61) 10/27/2023 Urinary retention (ICD-10 - R33.9) 10/01/2023 Bladder calculus (ICD-10 - N21.0) 10/01/2023 Abnormal urine finding (ICD-10 - R82.90) 06/21/2024 Encounter for suprapubic catheter care (ICD-10 [...] emergency room could only place a 10 Italian suprapubic tube. I was able to remove this and dilate up to 16 Italian and get a 16 Italian suprapubic tube back into the bladder under [...] than 50% of that time in direct fxeq-dg-urxu discussion. 05/31/2024 Prostate cancer (ICD-10 - C61) He had a clogged SP tube and outside emergency room could only place a 10 Italian suprapubic tube. I was able to remove this and dilate up to 16 Italian and get a 16 Italian suprapubic tube back into the bladder under [...] than 50% of that time in direct kvch-ta-nlxe discussion. 10/01/2023 Gross hematuria (ICD-10 - R31.0) 10/27/2023 Metastatic adenocarcinoma to prostate (ICD-10 - C79.82) 08/18/2024 Metastatic adenocarcinoma to prostate (ICD-10 - C79.82) We discussed previous office visit with Dr. Menjivar where patient was needed to have dilation up to 16 Italian and a 16 Italian suprapubic tube back into the bladder under [...] concerns or questions. Patient satisfied with plan. 09/15/2024 Acute urinary retention (ICD-10 - R33.8) [...] return in 2 weeks for routine change. 04/06/2024 Metastatic adenocarcinoma to prostate (ICD-10 - C79.82) 08/03/2024 Prostate cancer (ICD-10 - C61) Pt [...] and scheduled for next available cystolithalopaxy at [facility]. He recently started having sptube [...] and it is both accurate and complete. 10/20/2023 Abnormal urine finding (ICD-10 - R82.90) [...] than 50% of that time in direct wyvr-rz-ghen discussion. 10/20/2023 Gross hematuria (ICD-10 - R31.0) [...] than 50% of that time in direct mehb-ti-mqma discussion. 03/02/2024 History of orchiectomy, bilateral (ICD-10 - [...] and scheduled for next available cystolithalopaxy at [facility]. He recently started having sptube [...] needed to have dilation up to 16 Italian and a 16 Italian suprapubic tube back into the bladder under [...] concerns or questions. Patient satisfied with plan. 10/27/2023 History of orchiectomy, bilateral (ICD-10 - Z90.79) 10/01/2023 Suprapubic catheter (ICD-10 - Z93.59) 05/31/2024 Metastatic adenocarcinoma to prostate (ICD-10 - C79.82) He had a clogged SP tube and outside emergency room could only place a 10 Italian suprapubic tube. I was able to remove this and dilate up to 16 Italian and get a 16 Italian suprapubic tube back into the bladder under [...] than 50% of that time in direct hzhz-tm-cmae discussion. 05/31/2024 History of orchiectomy, bilateral (ICD-10 - Z90.79) He had a clogged SP tube and outside emergency room could only place a 10 Italian suprapubic tube. I was able to remove this and dilate up to 16 Italian and get a 16 Italian suprapubic tube back into the bladder under [...] than 50% of that time in direct fgaq-wq-obso discussion. 10/01/2023 Urinary retention (ICD-10 - R33.9) 10/27/2023 S/P radiation therapy (ICD-10 - Z92.3) 08/18/2024 S/P radiation therapy (ICD-10 - Z92.3) We discussed previous office visit with Dr. Menjivar where patient was needed to have dilation up to 16 Italian and a 16 Italian suprapubic tube back into the bladder under [...] concerns or questions. Patient satisfied with plan. 04/06/2024 S/P radiation therapy (ICD-10 - Z92.3) [...] and scheduled for next available cystolithalopaxy at [facility]. He recently started having sptube [...] and it is both accurate and complete. 10/20/2023 Suprapubic catheter (ICD-10 - Z93.59) He [...] than 50% of that time in direct xdrd-bm-ngct discussion. 10/20/2023 Prostate cancer (ICD-10 - C61) [...] than 50% of that time in direct jdjj-ox-vouc discussion. 03/02/2024 Encounter for attention to cystostomy [...] and scheduled for next available cystolithalopaxy at [facility]. He recently started having sptube changed with and will continue this q4wks. He will return post operatively or sooner with any other concerns. I, Maggy Monterroso CNA, am scribing for, and in the presence, of Dr. Mnejivar. I, Dr. Jong Menjivar, personally performed the services prescribed in this documentation, as scribed by Maggy Monterroso CNA, in my presence, and it is both accurate and complete. 08/18/2024 Encounter for attention to cystostomy (ICD-10 - Z43.5) We discussed previous office visit with Dr. Menjivar where patient was needed to have dilation up to 16 Italian and a 16 Italian suprapubic tube back into the bladder under [...] concerns or questions. Patient satisfied with plan. 10/27/2023 Encounter for attention to cystostomy (ICD-10 - Z43.5) 10/01/2023 Prostate cancer (ICD-10 - C61) 05/31/2024 S/P radiation therapy (ICD-10 - Z92.3) He had a clogged SP tube and outside emergency room could only place a 10 Italian suprapubic tube. I was able to remove this and dilate up to 16 Italian and get a 16 Italian suprapubic tube back into the bladder under [...] than 50% of that time in direct dpzv-jy-utzx discussion. 10/01/2023 Metastatic adenocarcinoma to prostate (ICD-10 - C79.82) 10/20/2023 Metastatic adenocarcinoma to prostate (ICD-10 - [...] than 50% of that time in direct ugzx-pr-ncvs discussion. 10/20/2023 History of orchiectomy, bilateral (ICD-10 - [...] than 50% of that time in direct pnfn-jh-qfvt discussion. 10/01/2023 History of orchiectomy, bilateral (ICD-10 - Z90.79) 10/20/2023 S/P radiation therapy (ICD-10 - Z92.3) [...] than 50% of that time in direct xrrb-zt-pidd discussion. 10/01/2023 S/P radiation therapy (ICD-10 - [...] than 50% of that time in direct jozb-vy-knsz discussion. 10/20/2023 Complicated UTI (urinary tract infection) [...] than 50% of that time in direct tmup-dx-drha discussion. 10/01/2023 Other Imaging reviewe d with [...] Order Date Chest X-ray PA and lateral [id number] Electrocardiogram (EKG) 06/17/2023 PSA, TOTAL (5363) 08/18/2024 Catheter Insertion-Routine 09/15/2024 Future Test Test Name Order Date PSA, TOTAL (5363) 01/10/2024 Next Appt Details Provider Name:JONG Zhong QUE Simons, 10/13/2024 10:00:00 AM, [address] [facility], [address], Provider Name:JONG Trevin Simons, 11/30/2024 10:15:00 AM, [address] [facility] [place], [address], Insurance Providers Payer Name Payer Address Payer Phone Subscriber Number Group Number Insured Name Patient Relationship to Insured Coverage Start Date Coverage End Date [facility] Medicare Advantage PPO [address] [address] [place], [place] [id number] [facility] [id number] [place], AN[place]ARIA Self - patient is the insured [place] Medicaid [address] [place], [place] [id number] [place], ANNAMARIA Self - patient is [...]
--- NOTE | 2024-09-30 12:51 | CT_ITS ---
WS: [id number] CT CERVICAL SPINE HISTORY: Trauma TECHNIQUE: Contiguous 2.0 mm axial imaging performed through the entire cervical spine. Sagittal and coronal reformats also performed. All CT scans at [facility] use at least one of these dose optimization techniques: automated exposure control; mA and/or kV adjustment per patient size (includes targeted exams where dose is matched to clinical indication); or iterative reconstruction. DLP: 1377.45 mGy.cm COMPARISON: 07/31/2023, 07/06/2024 Reversal of the normal cervical lordosis centered at C3. Disc spaces are narrowed. Hypertrophic osteophytes at all levels. No acute compression fractures. Craniocervical junction is normal. Facet joints are aligned. Increased soft tissue with increased attenuation surrounding odontoid process similar to the prior studies. C2-C3: Osteophytic ridging and severe facet arthritis. Severe bilateral foraminal stenosis due to osteophyte disease. C3-C4: Severe osteophytic ridging with partially calcified disc and facet arthritis. Severe RIGHT and moderate LEFT foraminal stenosis. C4-C5: Severe facet joint arthritis. Moderate bilateral foraminal stenosis and mild central stenosis. C5-C6: Moderate facet arthritis and foraminal stenosis. C6-C7: Bilateral facet arthritis. No high-grade stenosis. C7-T1: Normal. Osteoblastic changes in T1 and the superior endplate of T2. Similar to the prior study and thought related to blastic metastatic disease. Prior thyroidectomy. Lung apices are clear. No adenopathy. CT/CT cervical spin wo con* [id number] IMPRESSION: 1. No acute cervical spine fracture. 2. Multilevel advanced facet joint arthropathy resulting in stenoses. Most sig nificant stenosis from C2-3 through C4-5. 3. Prior thyroidectomy. 4. Osteoblastic changes in T1 and T2. Metastatic prostate cancer.
--- NOTE | 2024-09-30 12:52 | CT_ITS ---
WS: [id number] CT HEAD NONCONTRAST HISTORY: Trauma TECHNIQUE: Contiguous axial imaging performed through the brain. Bone and soft tissue windows. Sagittal and coronal reformats reviewed. All CT scans at [facility] use at least one of these dose optimization techniques: automated exposure control; mA and/or kV adjustment per patient size (includes targeted exams where dose is matched to clinical indication); or iterative reconstruction. DLP: 1377.45 mGy.cm COMPARISON: 01/20/2024 No acute intracranial hemorrhage, midline shift or mass effect. Mild cerebral atrophy and small vessel disease. No prior infarct. Ventricles: Normal size with no hydrocephalus. Paranasal sinuses: Mild mucoperiosteal thickening in the ethmoid air cells. No air-fluid levels. Mastoid air cells: Well pneumatized. Calvarium and scalp: Skull is intact with no soft tissue edema or swelling. CT/CT head wo con* [id number] IMPRESSION: 1. No acute intracranial hemorrhage or edema. 2. Mild cerebral and cerebellar atrophy and small vessel disease. Stable since 01/20/2024.
--- NOTE | 2024-09-30 12:59 | XRR_ITS ---
PROCEDURE INFORMATION: Exam: XR Right Knee Exam date and time: 09/30/2024 1:35 PM Age: 79 years old Clinical indication: Injury or trauma; Fall; Blunt trauma; Knee; Prior surgery; Surgery date: 6+ months; Surgery type: Bilateral tka TECHNIQUE: Imaging protocol: Radiologic exam of the right knee. Views: 3 views. Total images: 3 COMPARISON: CR XR knees AP WB w RT lmt ORTH 07/22/2021 11:26 AM FINDINGS: Tubes, catheters and devices: The prosthesis appears near anatomic in positioning. No parallel lucencies adjacent to the prosthesis are seen to suggest loosening. No acute fractures, subluxation, nor dislocation. Bones/joints: Right knee arthroplasty is present. Soft tissues: Normal. XR/XR knee RT 3V* [id number] IMPRESSION: Status post right knee arthroplasty without complication.
--- NOTE | 2024-09-30 12:59 | XRR_ITS ---
PROCEDURE INFORMATION: Exam: XR Left Knee Exam date and time: 09/30/2024 1:10 PM Age: 79 years old Clinical indication: Injury or trauma; Fall; Blunt trauma; Knee; Prior surgery; Surgery date: 6+ months; Surgery type: Bilateral tka; HX of prostate cancer TECHNIQUE: Imaging protocol: Radiologic exam of the left knee. Views: 3 views. Total images: 2 COMPARISON: CR XR knee RT 3V* [id number] 09/19/2024 3:12 PM FINDINGS: Tubes, catheters and devices: The prosthesis appears near anatomic in positioning. No parallel lucencies adjacent to the prosthesis are seen to suggest loosening. No acute fractures, subluxation, nor dislocation. Bones/joints: Left knee arthroplasty is present. Soft tissues: Normal. XR/XR knee LT 3V* [id number] IMPRESSION: Status post left knee arthroplasty without complication.
--- NOTE | 2024-09-30 12:59 | W.ED.FALL ---
HPI - Fall General: Chief Complaint: Fall Stated Complaint: fall- Time Seen by Provider: 09/30/24 12:43 History of Present Illness: 79-year-old male who presents to the emergency room with complaints of multiple falls he hit his head on a second fall. Evidently fell outside was outside for 15 minutes before EMS was called. Normally wears 2 L by nasal cannula. Patient has some cognitive deficits so still difficult time with answering questions. He has some gait and balance difficulties he is fallen multiple times recently and on the of this month 4 days ago had a fall resulting in an Nondisplaced fractures of the 3rd and 4th metatarsals and second third cuneiform bones. Associated symptoms-after fall: Denies abdominal pain, chest pain or neck pain Related Data Home Medications ?Medication ?Instructions ?Recorded ?Confirmed aspirin 81 mg tablet,delayed 81 mg PO DAILY 03/29/19 09/30/24 release mv-mn-folic 200 mcg-vit K 15 1 cap PO DAILY 04/09/23 09/30/24 mcg-lutein 5 mg-zeaxanthin 1 mg capsule (PreserVision AREDS 2 Plus Multivit) loratadine 10 mg tablet (Claritin) 10 mg PO QPM 07/31/23 09/30/24 lorazepam 1 mg tablet 1 mg PO DAILY PRN Anxiety 02/01/24 09/30/24 acetaminophen 500 mg tablet 500 mg PO BEDTIME PRN Fever Or Pain 04/24/24 09/30/24 (Tylenol Extra Strength) lactobacillus comb no.10 20 20,000 mmu cells PO DAILY 04/24/24 09/30/24 billion cell capsule (Probiotic) triamcinolone acetonide 55 mcg 2 spray intranasal DAILY 05/18/24 09/30/24 nasal spray aerosol metoprolol succinate 25 mg 12.5 mg PO QAM 05/20/24 09/30/24 tablet,extended release 24 hr Held on 09/08/24. Instructions: Doctor's Order famotidine 40 mg tablet (Pepcid) 40 mg PO BID 09/30/24 09/30/24 metoclopramide HCl 5 mg tablet 5 mg PO TID 09/30/24 09/30/24 (Reglan) Previous Rx's ?Medication ?Instructions ?Recorded Walker #1 ea 07/28/22 catheter bags #4 ea 10/08/23 fluticasone fur. 100 mcg-umeclid 1 ea inhalation DAILY #60 ea 10/13/23 62.5 mcg-vilant 25 mcg inhalat.powder (Trelegy Ellipta) ipratropium 0.5 mg-albuterol 3 mg 3 ml inhalation Q6H PRN wheezing 11/06/23 (2.5 mg base)/3 mL nebulization #90 mL soln nebulizer with tubing #1 ea 11/06/23 polyethylene glycol 3350 17 gram 17 g PO DAILY #30 ea 01/18/24 oral powder packet (Miralax) docusate sodium 100 mg capsule 100 mg PO DAILY PRN constipation 01/29/24 #60 caps tamsulosin 0.4 mg capsule 0.4 mg PO QPM #90 caps 04/05/24 glycerin (adult) 1 supp NC DAILY PRN constipation 04/24/24 #12 ea cholecalciferol (vitamin D3) 50 50 mcg PO DAILY #90 caps 04/26/24 mcg (2,000 unit) capsule rosuvastatin 40 mg tablet 40 mg PO BEDTIME #90 tabs 07/12/24 levothyroxine 175 mcg tablet See Rx Instructions .Route 07/19/24 .COMPLEX #90 tabs apixaban 5 mg tablet (Eliquis) 5 mg PO BID #90 tabs 07/21/24 montelukast 10 mg tablet 10 mg PO DAILY #90 tabs 07/21/24 sitagliptin phosphate 100 mg 100 mg PO QAM #90 tabs 07/21/24 tablet (Januvia) trazodone 100 mg tablet 100 mg PO QPM #90 tabs 07/21/24 carbamazepine 100 mg See Rx Instructions .Route 09/02/24 tablet,extended release,12 hr .COMPLEX #60 tabs prednisone 5 mg tablet 5 mg PO BID #60 tabs 09/12/24 morphine 30 mg immediate release 30 mg PO Q6H PRN pain 22 days #90 09/20/24 tablet tabs enzalutamide 80 mg tablet (Xtandi) 80 mg PO DAILY #30 tabs 09/26/24 ondansetron HCl 8 mg tablet 8 mg PO Q8H PRN Nausea And 09/26/24 Vomiting #60 tabs Allergies Allergy/AdvReac Type Severity Reaction Status Date / Time vancomycin Allergy HIVES,RASH Verified 09/26/24 15:14 Review of Systems Const: Denies: fever(s) or chills Card: Denies: chest pain Resp: Denies: dyspnea GI: Denies: abdominal pain : Denies: dysuria, urinary frequency or urinary urgency Musc: Denies: neck pain or back pain Skin/Breast: Denies: rash PFSH ED PFSH: Medical History Weight loss Viral URI with cough Hospital discharge follow-up Papillary thyroid carcinoma Suprapubic catheter Prostate cancer metastatic to bone Deep vein thrombosis (DVT) of left lower extremity Nausea & vomiting Lower urinary tract symptoms (LUTS) Cancer related pain Urinary tract infection Right kidney mass Burning sensation of feet Lumbar stenosis with neurogenic claudication Intervertebral disc disorder with radiculopathy of lumbosacral region Metastasis to bone Dyslipidemia History of diverticulitis Type 2 diabetes mellitus without complication, without long-term current use of insulin Benign essential HTN Post-surgical hypothyroidism Insomnia GERD (gastroesophageal reflux disease) COPD (chronic obstructive pulmonary disease) 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 Prostate cancer History of thyroid cancer Surgical History History of bladder surgery History of prostate surgery H/O transurethral resection of prostate History of cystostomy S/P cystourethroscopy with dilation of urethral stricture History of lumbar discectomy History of colonoscopy (07/12/19) diverticulosis, repeat 10 years History of orchiectomy, bilateral H/O total knee replacement BILATERAL H/O hernia repair History of hemorrhoidectomy History of uvulectomy History of thyroidectomy, subtotal Family History Mother , in her 90's Cancer Diabetes Sister Diabetes Father , in his 70's No problems noted. Other CAD (coronary artery disease) Social History Smoking and tobacco/nicotine status: never used tobacco/nicotine Quit status (tobacco/nicotine): has quit using Year quit tobacco: 2022 Former quit date comment: stopped in February of this year Alcohol intake: never Substance/Drug Use: never Lives independently: Yes Household members: spouse Marital status: Current occupational status: retired Physical Exam Const: COMMON NORMALS: no acute distress GENERAL APPEARANCE: cooperative and comfortable ORIENTATION/CONSCIOUSNESS: Yes awake HENMT: COMMON NORMALS: normocephalic, atraumatic and hearing grossly normal bilaterally HEAD & SCALP: normocephalic and atraumatic Resp: COMMON NORMALS: normal respiratory effort, No retractions, No use of accessory muscles and clear to auscultation bilaterally AUSCULTATION: clear to auscultation bilaterally Cardio: COMMON NORMALS: regular rate, regular rhythm and No murmurs present (Cardio) RATE: regular rate RHYTHM: regular rhythm GI: COMMON NORMALS: Soft to palpation and No hepatosplenomegaly present AUSCULTATION: Yes normoactive bowel sounds PALPATION: Yes Soft to palpation, No Tenderness to palpation present (GI), No Guarding due to palpation present (GI) and Yes No hepatosplenomegaly present Skin: COMMON NORMALS: no rashes or lesions noted GENERAL SKIN EXAM: no rashes or lesions noted Course Vital Signs: Vital signs: Vital Signs Temperature 97.5 F L 10/04/24 07:50 Pulse Rate 96 10/04/24 07:55 Respiratory Rate 16 10/04/24 07:55 Blood Pressure 143/75 10/04/24 07:50 Pulse Oximetry 94 10/04/24 08:00 Oxygen Delivery Me thod Room Air 10/04/24 08:00 Oxygen Flow Rate 2 10/04/24 07:55 MDM - Fall Medical Decision Making Prostate cancer with multiple metastasis. Showing signs of sepsis with acute urinary tract infection and acute kidney injury. Imaging the head and neck as well as the knees unremarkable for injury from the fall. CT abdomen open other labs reviewed with hospitalist will admit started on IV antibiotics. Lactic acid of 2.8. IV fluids given as well as antibiotics initiated. Orders written for admission Medical Records I reviewed the patient's medical records. Lab Data I reviewed the patient's lab results. 10/04/24 00:59 10/04/24 00:59 Radiology Impressions Cervical Spine CT 09/30/24 12:51 IMPRESSION: 1. No acute cervical spine fracture. 2. Multilevel advanced facet joint arthropathy resulting in stenoses. Most significant stenosis from C2-3 through C4-5. 3. Prior thyroidectomy. 4. Osteoblastic changes in T1 and T2. Metastatic prostate cancer. Head CT 09/30/24 12:52 IMPRESSION: 1. No acute intracranial hemorrhage or edema. 2. Mild cerebral and cerebellar atrophy and small vessel disease. Stable since 01/20/2024. Knee X-Ray 09/30/24 12:59 IMPRESSION: Status post right knee arthroplasty without complication. Abdomen/Pelvis CT 10/01/24 12:01 IMPRESSION: 1. Redemonstrated 4 mm stone in the left mid ureter with mild upstream hydroureteronephrosis. 2. Scattered fluid-filled non pathologically dilated loops of small bowel with mild wall thickening which may be seen in the setting of small bowel enteritis. 3. Redemonstrated innumerable osteoblastic lesions throughout the thoracolumbar spine. Findings are suspicious for metastatic disease. 4. Indeterminate hypodense lesions in the liver as detailed above not well identified on prior examination. Recommend correlation with clinical and oncologic history as well as further evaluation with MRI as clinically indicated. 5. Other chronic findings as detailed in the body of the report. COMMENTS: Consistent with the [employer]'s Incidental Findings Committee white paper (J Am Manjinder Radiol 2018): Any incidental renal lesion less than 1 cm or classified as too small to characterize, or any incidental cystic renal lesion characterized as simple-appearing, is likely benign. No follow-up imaging is recommended for these lesions per consensus recommendations based on imaging criteria. Chest X-Ray 10/01/24 12:30 IMPRESSION: No acute cardiopulmonary abnormality. Laboratory Results WBC 10.81 10^3/uL (3.29-11.43) 09/30/24 13:03 RBC 2.90 10^6/uL (3.85-5.65) L 09/30/24 13:03 Hgb 9.30 g/dL (11.27-16.99) L 09/30/24 13:03 Hct 28.7 % (37-53) L 09/30/24 13:03 MCV 99.0 fl (82-101) 09/30/24 13:03 MCH 32.1 pg (27-33) 09/30/24 13:03 MCHC 32.4 g/dL (30-55) 09/30/24 13:03 RDW 14.0 % (12.1-15.1) 09/30/24 13:03 Plt Count 195 10^3/cmm (157-399) 09/30/24 13:03 MPV 10.3 fL (7.4-10.4) 09/30/24 13:03 Neut % (Auto) 90.6 % 09/30/24 13:03 Lymph % (Auto) 1.3 % 09/30/24 13:03 Iron % (Auto) 7.2 % 09/30/24 13:03 Eos % (Auto) 0.0 % 09/30/24 13:03 Baso % (Auto) 0.3 % 09/30/24 13:03 Neut # (Auto) 9.79 10^3/uL (1.8-7.7) H 09/30/24 13:03 Lymph # (Auto) 0.1 10^3/uL (0.8-4.8) L 09/30/24 13:03 Iron # (Auto) 0.8 10^3/uL (0.2-0.9) 09/30/24 13:03 Eos # (Auto) 0.0 10^3/uL (0.0-0.8) 09/30/24 13:03 Baso # (Auto) 0.0 10^3/uL (0.0-0.1) 09/30/24 13:03 Nucleated RBC % (auto) 0 % 09/30/24 13:03 Nucleated RBCs # 0.0 /100WBC 09/30/24 13:03 PT 19.30 SECONDS (12.1-14.9) H 09/30/24 13:03 INR 1.52 (0.8-1.2) H 09/30/24 13:03 Sodium 134 mmol/L (136-145) L 09/30/24 13:03 Potassium 3.0 mmol/L (3.5-5.1) L 09/30/24 13:03 Chloride 94 mmol/L (98-107) L 09/30/24 13:03 Carbon Dioxide 28 mmol/L (22-29) 09/30/24 13:03 Anion Gap 15.0 (5-19) 09/30/24 13:03 BUN 17 mg/dL (8-23) 09/30/24 13:03 Creatinine 2.0 mg/dL (0.7-1.2) H 09/30/24 13:03 GFR Calculation Not Reportable 09/30/24 13:03 Glucose 166 mg/dL (65-115) H 09/30/24 13:03 Calculated Osmolality 283 mOsm/kg (285-295) L 09/30/24 13:03 Lactic Acid 2.8 mmol/L (0.5-2.2) H 09/30/24 13:03 Calcium 8.3 mg/dL (8.5-10.5) L 09/30/24 13:03 Phosphorus 1.6 mg/dL (2.5-4.5) L 09/30/24 13:03 Magnesium 1.4 mg/dL (1.7-2.3) L 09/30/24 13:03 Total Bilirubin 0.6 mg/dL (0.15-1.2) 09/30/24 13:03 AST 12 U/L (0-40) 09/30/24 13:03 ALT < 5 U/L (0-41) 09/30/24 13:03 Alkaline Phosphatase 81 U/L (40-130) 09/30/24 13:03 Total Protein 6.6 g/dL (6.6-8.7) 09/30/24 13:03 Albumin 3.0 g/dL (3.5-5.2) L 09/30/24 13:03 Globulin 3.6 g/dL (1.3-4.6) 09/30/24 13:03 Lipase 7 U/L (13-60) L 09/30/24 13:03 Procalcitonin 4.50 ng/mL (0-0.5) H 09/30/24 13:03 TSH 2.23 uIU/mL (0.27-4.20) 09/30/24 13:03 Urine Color Dark yellow (Yellow) A 09/30/24 13:03 Urine Appearance Turbid (CLEAR) A 09/30/24 13:03 Urine pH 5.5 (5-7) 09/30/24 13:03 Ur Specific [place] 1.025 (1.005-1.030) 09/30/24 13:03 Urine Protein 3+ (Negative) A 09/30/24 13:03 Urine Glucose (UA) Negative (Normal) 09/30/24 13:03 Urine Ketones Trace (Negative) 09/30/24 13:03 Urine Blood 3+ (Negative) A 09/30/24 13:03 Urine Nitrate Positive (Negative) A 09/30/24 13:03 Urine Bilirubin Negative (Negative) 09/30/24 13:03 Urine Urobilinogen 1.0 mg/dL (Negative) 09/30/24 13:03 Ur Leukocyte Esterase 2+ (Negative) A 09/30/24 13:03 Urine RBC >100 /hpf (0-2) H 09/30/24 13:03 Urine WBC >100 /hpf (0-5) H 09/30/24 13:03 Ur Squamous Epith Cells 0-5 /hpf (0-5) 09/30/24 13:03 Calcium Oxalate Crystal 0-4 /hpf H 09/30/24 13:03 Amorphous Sediment Not Reportable 09/30/24 13:03 Urine Bacteria 1+ /hpf (NONE) H 09/30/24 13:03 Hyaline Casts 66.03 /lpf 09/30/24 13:03 Coarse Granular Casts 5-10 /lpf H 09/30/24 13:03 All radiology interpretation(s) finalized by discharge Discharge Plan Discharge Patient Disposition: Placed in Observation Admit Provider: Valdez Mcclendon Clinical Impression: Sepsis, TUNG (acute kidney injury), BPH with obstruction/lower urinary tract symptoms, Recurrent UTI Coding Level of Care Code ED Offset Press Operator Helper for Gale Callahan
[2024-09-30 13:10] LABS: Hematocrit 28.7 % (37-53); Hemoglobin 9.30 g/dL (11.27-16.99); Mean Corpuscular HGB Conc 32.4 g/dL (30-55); Mean Corpuscular Hemoglobin 32.1 pg (27-33); Mean Corpuscular Volume 99.0 fl (82-101); Nucleated Red Blood Cells % 0 %; Platelet Count 195 10^3/cmm (157-399); Red Blood Count 2.90 10^6/uL (3.85-5.65); White Blood Count 10.81 10^3/uL (3.29-11.43)
[2024-09-30 13:19] LABS: Glucose Urine UA Negative (Normal); Nitrate Urine Positive (Negative); Specific Gravity, Urine 1.025 (1.005-1.030)
[2024-09-30 13:21] LABS: Add Urine Microscopic? YES
[2024-09-30 13:26] LABS: Alanine Aminotransferase < 5 U/L (0-41); Albumin Level 3.0 g/dL (3.5-5.2); Alkaline Phosphatase 81 U/L (40-130); Anion Gap 15.0 (5-19); Aspartate Amino Transferase 12 U/L (0-40); Blood Urea Nitrogen 17 mg/dL (8-23); Calcium 8.3 mg/dL (8.5-10.5); Carbon Dioxide 28 mmol/L (22-29); Chloride 94 mmol/L (98-107); Creatinine Clr Calc Pharmacy 35.2348; Globulin 3.6 g/dL (1.3-4.6); Glucose 166 mg/dL (65-115); Lipase 7 U/L (13-60); Osmolality Calculated 283 mOsm/kg (285-295); Potassium 3.0 mmol/L (3.5-5.1); Sodium 134 mmol/L (136-145); Total Protein 6.6 g/dL (6.6-8.7)
[2024-09-30 13:35] LABS: UA Slide Review UA Slide Review Perf
[2024-09-30] MEDS: cefTRIAXone 1,000 mg SDV 1000 MG IVP (14:17)
[2024-09-30 14:20] LABS: Lactic Sepsis W/Reflex 2.8 mmol/L (0.5-2.2)
--- NOTE | 2024-09-30 14:20 | CTR_ITS ---
PROCEDURE INFORMATION: Exam: CT Abdomen And Pelvis Without Contrast Exam date and time: 09/30/2024 3:44 PM Age: 79 years old Clinical indication: Abdominal pain; Additional info: Abd pain/anemia TECHNIQUE: Imaging protocol: Computed tomography of the abdomen and pelvis without contrast. Total images: 237 Radiation optimization: All CT scans at this facility use at least one of these dose optimization techniques: automated exposure control; mA and/or kV adjustment per patient size (includes targeted exams where dose is matched to clinical indication); or iterative reconstruction. COMPARISON: CT abdomen pelvis w con* [id number] 04/24/2024 1:26 PM RADIATION DOSE METRICS: Total DLP (mGy-cm): 664.43 FINDINGS: Tubes, catheters and devices: Suprapubic urinary bladder catheter present. Lungs: Benign granulomatous disease of the lung is noted. Trace bibasilar atelectasis or scar. Liver: Normal. No mass. Gallbladder and biliary ducts: The gallbladder is distended but does not appear inflamed. Pancreas: Calcifications and atrophy of the pancreas are consistent with chronic pancreatitis. No evidence of acute pancreatitis. Spleen: Incidental splenic granulomata are noted. Adrenal glands: Normal. No mass. Kidneys and ureters: 4 mm Mid left ureteral stone. Mild hydroureteronephrosis is present. 6.3 cm largest cyst noted in kidneys that have multiple simple renal cysts. No further evaluation required. Stomach and bowel: Colonic diverticulosis is present without diverticulitis. Moderate stool burden. Appendix: No evidence of appendicitis. Intraperitoneal space: Unremarkable. No free air. No significant fluid collection. Vasculature: Incidental phleboliths noted. Lymph nodes: Calcified mediastinal and hilar nodes noted. Urinary bladder: Unremarkable as visualized. Reproductive: The prostate gland contains benign-appearing calcifications that are likely parenchymal. The prostate gland contains benign-appearing calcifications that are likely parenchymal. Bones/joints: Bilateral SI joint bridging osteophytes. Avascular necrosis of the right femoral head without collapse. Many small blastic lesions seen within osseous structures unchanged from prior exam with differential remaining between metastatic disease and multiple bone islands. Soft tissues: Unremarkable. Other findings: Moderate atherosclerotic disease burden is evident. CT/CT abdomen pelvis wo con [id number] IMPRESSION: 1. 4 mm Mid left ureteral stone. Mild hydroureteronephrosis is present. 2. Distended gallbladder. This is most likely secondary to fasting. Acute obstruction could give a similar appearance but further evaluation with ultrasound should depend on patient's symptoms and laboratory findings. 3. Moderate stool burden. 4. Many small blastic lesions seen within osseous structures unchanged from prior exam with differential remaining between metastatic disease and multiple bone islands. Facet joint degenerative changes are present. COMMENTS: Consistent with the [employer]'s Incidental Findings Committee white paper (J Am Manjinder Radiol 2018): Any incidental renal lesion less than 1 cm or classified as too small to characterize, or any incidental cystic renal lesion characterized as simple-appearing, is likely benign. No follow-up imaging is recommended for these lesions per consensus recommendations based on imaging criteria.
[2024-09-30 14:48] LABS: Reflex Lactate Order REFLEX LACTIC ORDERD
--- NOTE | 2024-09-30 15:04 | PM.HP ---
Providers/Chief Complaint Primary Care Provider: Joann Knowles DO Chief Complaint: fall- History of Present Illness As per the previous retrospective notes and the patient Charlie Jacobs is a 79 year old male with past medical history of multiple comorbidities, history of prostate cancer, BPH with obstructive urinary stricture, COPD, GERD, insomnia, hypertension, diabetes, dyslipidemia, metastatic prostate cancer, history of DVT, papillary thyroid carcinoma presented to the er with complaints of multiple falls he hit his head on a second fall. Evidently fell outside was outside for 15 minutes before EMS was called. Normally wears 2 L by nasal cannula. Patient has some cognitive deficits so still difficult time with answering questions due to hearing difficulties. He has some gait and balance difficulties he is fallen multiple times recently and on the of this month 4 days ago had a fall resulting in an Nondisplaced fractures of the 3rd and 4th metatarsals and second third cuneiform bones. as per the patient and his who has been taking care of him further informed that the gait imbalance has been there since few weeks to a month or so. he gets more dizzy on turning his head to the left side. recently his urine catheter was changed yesterday ( he has suprapubic catheter placed due to h/o LUTS and obstructed symptoms) and he was having suprapubic pain after it. but later after adjustment by the urologist it was somehow better. he had one episode of fever today and mild nausea and vomiting. no chest pain, sob, cold sweating or any recent focal neurological deficit. Review of Systems General: Reports: 10 or more systems reviewed and unremarkable except in HPI and below Medications/Allergies Home Medications ?Medication ?Instructions ?Recorded ?Confirmed ?Last Taken ?Type aspirin 81 mg tablet,delayed 81 mg PO DAILY 03/29/19 09/30/24 09/30/24 09:00 History release Walker #1 ea 07/28/22 09/30/24 05/24/23 Rx mv-mn-folic 200 mcg-vit K 15 1 cap PO DAILY 04/09/23 09/30/24 09/30/24 09:00 History mcg-lutein 5 mg-zeaxanthin 1 mg capsule (PreserVision AREDS 2 Plus Multivit) loratadine 10 mg tablet (Claritin) 10 mg PO QPM 07/31/23 09/30/24 09/29/24 20:00 History catheter bags #4 ea 10/08/23 09/30/24 Unknown Rx fluticasone fur. 100 mcg-umeclid 1 ea inhalation DAILY #60 ea 10/13/23 09/30/24 09/29/24 Rx 62.5 mcg-vilant 25 mcg inhalat.powder (Trelegy Ellipta) ipratropium 0.5 mg-albuterol 3 mg 3 ml inhalation Q6H PRN wheezing 11/06/23 09/30/24 09/29/24 19:00 Rx (2.5 mg base)/3 mL nebulization #90 mL soln nebulizer with tubing #1 ea 11/06/23 09/30/24 Unknown Rx polyethylene glycol 3350 17 gram 17 g PO DAILY #30 ea 01/18/24 09/30/24 05/19/24 Rx oral powder packet (Miralax) docusate sodium 100 mg capsule 100 mg PO DAILY PRN constipation 01/29/24 09/30/24 Unknown Rx #60 caps lorazepam 1 mg tablet 1 mg PO DAILY PRN Anxiety 02/01/24 09/30/24 04/24/24 History tamsulosin 0.4 mg capsule 0.4 mg PO QPM #90 caps 04/05/24 09/30/24 09/29/24 20:00 Rx acetaminophen 500 mg tablet 500 mg PO BEDTIME PRN Fever Or Pain 04/24/24 09/30/24 09/29/24 20:00 History (Tylenol Extra Strength) glycerin (adult) 1 supp DC DAILY PRN constipation 04/24/24 09/30/24 Unknown Rx #12 ea lactobacillus comb no.10 20 20,000 mmu cells PO DAILY 04/24/24 09/30/24 09/30/24 History billion cell capsule (Probiotic) cholecalciferol (vitamin D3) 50 50 mcg PO DAILY #90 caps 04/26/24 09/30/24 09/30/24 09:00 Rx mcg (2,000 unit) capsule triamcinolone acetonide 55 mcg 2 spray intranasal DAILY 05/18/24 09/30/24 09/30/24 08:00 History nasal spray aerosol metoprolol succinate 25 mg 12.5 mg PO QAM 05/20/24 09/30/24 05/20/24 History tablet,extended release 24 hr Held on 09/08/24. Instructions: Doctor's Order rosuvastatin 40 mg tablet 40 mg PO BEDTIME #90 tabs 07/12/24 09/30/24 09/29/24 20:00 Rx levothyroxine 175 mcg tablet See Rx Instructions .Route 07/19/24 09/30/24 09/30/24 07:00 Rx .COMPLEX #90 tabs apixaban 5 mg tablet (Eliquis) 5 mg PO BID #90 tabs 07/21/24 09/30/24 09/30/24 08:30 Rx montelukast 10 mg tablet 10 mg PO DAILY #90 tabs 07/21/24 09/30/24 09/30/24 08:00 Rx sitagliptin phosphate 100 mg 100 mg PO QAM #90 tabs 07/21/24 09/30/24 09/30/24 08:00 Rx tablet (Januvia) trazodone 100 mg tablet 100 mg PO QPM #90 tabs 07/21/24 09/30/24 09/29/24 20:00 Rx carbamazepine 100 mg See Rx Instructions .Route 09/02/24 09/30/24 09/30/24 09:00 Rx tablet,extended release,12 hr .COMPLEX #60 tabs prednisone 5 mg tablet 5 mg PO BID #60 tabs 09/12/24 09/30/24 09/30/24 08:30 Rx morphine 30 mg immediate release 30 mg PO Q6H PRN pain 22 days #90 09/20/24 09/30/24 09/29/24 20:00 Rx tablet tabs enzalutamide 80 mg tablet (Xtandi) 80 mg PO DAILY #30 tabs 09/26/24 09/30/24 09/30/24 08:00 Rx ondansetron HCl 8 mg tablet 8 mg PO Q8H PRN Nausea And 09/26/24 09/30/24 Unknown Rx Vomiting #60 tabs famotidine 40 mg tablet (Pepcid) 40 mg PO BID 09/30/24 09/30/24 09/30/24 History metoclopramide HCl 5 mg tablet 5 mg PO TID 09/30/24 09/30/24 09/30/24 History (Reglan) Allergies Allergy/AdvReac Type Severity Reaction Status Date / Time vancomycin Allergy HIVES,RASH Verified 09/26/24 15:14 PFSH Acute PFSH: Medical History (Updated 09/30/24 @ 15:09 by Valdez Mcclendon MD) Weight loss Viral URI with cough Hospital discharge follow-up Papillary thyroid carcinoma Suprapubic catheter Prostate cancer metastatic to bone Deep vein thrombosis (DVT) of left lower extremity Nausea & vomiting Lower urinary tract symptoms (LUTS) Cancer related pain Urinary tract infection Right kidney mass Burning sensation of feet Lumbar stenosis with neurogenic claudication Intervertebral disc disorder with radiculopathy of lumbosacral region Metastasis to bone Dyslipidemia History of diverticulitis Type 2 diabetes mellitus without complication, without long-term current use of insulin Benign essential HTN Post-surgical hypothyroidism Insomnia GERD (gastroesophageal reflux disease) COPD (chronic obstructive pulmonary disease) 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 Prostate cancer History of thyroid cancer Surgical History History of bladder surgery History of prostate surgery H/O transurethral resection of prostate History of cystostomy S/P cystourethroscopy with dilation of urethral stricture History of lumbar discectomy History of colonoscopy (07/12/19) diverticulosis, repeat 10 years History of orchiectomy, bilateral H/O total knee replacement BILATERAL H/O hernia repair History of hemorrhoidectomy History of uvulectomy History of thyroidectomy, subtotal Family History Mother , in her 90's Cancer Diabetes Sister Diabetes Father , in his 70's No problems noted. Other CAD (coronary artery disease) Social History Smoking and tobacco/nicotine status: never used tobacco/nicotine Quit status (tobacco/nicotine): has quit using Year quit tobacco: 2022 Former quit date comment: stopped in February of this year Alcohol intake: never Substance/Drug Use: never Lives independently: Yes Household members: spouse Marital status: Current occupational status: retired Vitals/I&O/Wt Last Vital Signs Temp 98.4 F 09/30/24 14:21 Pulse 88 09/30/24 14:21 Resp 16 09/30/24 14:21 BP 97/60 09/30/24 14:21 Pulse Ox 96 09/30/24 14:21 O2 Del Method Nasal Cannula 09/30/24 14:21 O2 Flow Rate 2 09/30/24 14:21 Weight last 48 hrs Weight 81.193 kg Physical Exam Narrative: General: Alert oriented x3, patient seen lying comfortably on 2l nc HEENT: Normocephalic, atraumatic, EOMI, breathing without any distress on 2L NC Cardio: Regular rate rhythm, normal S1-S2, no murmurs rubs gallops, JVD normal Respiratory: Good bilateral air entry, no wheezes no rhonchi appreciated GI: Abdomen soft, mildy tender due to constipation and bloating, normoactive bowel sounds present all 4 quadrants, no organomegaly and no flank tenderness elicited Neuro: gross neurological deficit Behavior: Appropriate and cooperative Extremities: trace pedal edema, having right foot swelling due to fracture and bruise prominent on the planter and dorsal surface, peripheral pulses palpable, Skin: pallor +luis, decreased capillary refill Data 09/30/24 13:03 09/30/24 13:03 Micro: Microbiology 09/30/24 13:03 Blood Culture - Preliminary Blood SPECIMEN COLLECTED 09/30/24 13:03 Blood Culture - Preliminary Blood SPECIMEN COLLECTED A&P Assessment and plan 1. Sepsis: 2. UTI (urinary tract infection): 3. TUNG (acute kidney injury): 4. Foot fracture, left: 5. Weight loss: 6. Prostate cancer metastatic to bone: 7. Deep vein thrombosis (DVT) of left lower extremity: 8. Lower urinary tract symptoms (LUTS): 9. Dyslipidemia: 10. Type 2 diabetes mellitus without complication, without long-term current use of insulin: 11. Benign essential HTN: 12. GERD (gastroesophageal reflux disease): 13. COPD (chronic obstructive pulmonary disease): 14. BPH with obstruction/lower urinary tract symptoms: 15. Frequent falls: Plan: Sepsis: likely secondary to UTI? 2 sets of blood cultures, urine cultures, chest x-ray CRP Lactate series Maintain 2 IV bore cannulas Broad-spectrum antibiotics coverage IV fluid bolus and response to monitor Maintain MAP above 65 Change Dacosta's catheter Diabetes mellitus: Insulin sliding scale Hypertension: Hold antihypertensive at the moment considering patient clinical deterioration in the light of sepsis Frequent falls: OT PT evaluation Fall precaution COPD: DuoNebs Q6 hourly BPH with LUTS: monitor folleys cath care, changed yesterday in urology clinic Monitor intake output TUNG: Adequate hydration Maintain renal functions and electrolytes with correction accordingly Anemia: CT abdomen pelvis since the patient hemoglobin was stable few days ago and to rule out any intraperitoneal bleed Anemia workup Monitor CBC GERD: PPI Maalox as needed DVT: Patient on apixaban, Currently hold and put on SCD unless rule out active bleeding Diet: Cardiac diet PDMP PDMP Reviewed: Not Reviewed Attestations Medical Necessity Statement*: Charlie Jacobs's hospital stay will require greater than 2 midnights for management of sepsis, UTI acute urinary retention s/p Dacosta's catheter and frequent falls requiring OT PT evaluation Time Spent in Patient Care: 16 - 35 minutes (>than 50% of time spent in counselling and/or direct pt care on unit). 35 Other Attestations: Patient condition has been discussed at length with the patient/family, I have independently reviewed the chart labs imaging and diagnostics and EKG. the goals of care and code status with the patient/family/NOK/legal account maintenance representative, and documented accordingly. The patient/family has been informed about the current condition and further plan of care. Agreed with the plan of care and understood without any language barrier. This documentation was created by [employer] engravings polisher software. Every effort was made to ensure accuracy of engravings polisher. Any obvious errors or omissions should be clarified with the author of the document. Coding Level of Care Code 58773 Diagnoses Sepsis A41.9 UTI (urinary tract infection) N39.0 TUNG (acute kidney injury) N17.9 Foot fracture, left S92.902A Weight loss R63.4 Prostate cancer metastatic to bone C61; C79.51 Deep vein thrombosis (DVT) of left lower extremity I82.402 Lower urinary tract symptoms (LUTS) R39.9 Dyslipidemia E78.5 Type 2 diabetes mellitus without complication, without long-term current use of insulin E11.9 Diabetes mellitus complication status: without complication Benign essential HTN I10 GERD (gastroesophageal reflux disease) K21.9 COPD (chronic obstructive pulmonary disease) J44.9 BPH with obstruction/lower urinary tract symptoms N40.1; N13.8 Frequent falls R29.6
[2024-09-30 15:24] LABS: INR 1.52 (0.8-1.2); Prothrombin Time 19.30 SECONDS (12.1-14.9)
[2024-09-30 15:38] LABS: Procalcitonin 4.50 ng/mL (0-0.5); Thyroid Stimulating Hormone 2.23 uIU/mL (0.27-4.20)
[2024-09-30 15:48] LABS: Magnesium 1.4 mg/dL (1.7-2.3)
[2024-09-30] MEDS: pantoprazole 40 mg SDV IVP (16:24)
[2024-09-30] MEDS: carBAMazepine XR (12 HR) 100 mg Tablet PO (17:58)
[2024-09-30 18:13] LABS: Lactic Acid level (Lactate) 1.1 mmol/L (0.5-2.2)
[2024-09-30] MEDS: fluticasone nasal spray 16gm Btl 1 SPRAY NASAL (21:38)
[2024-10-01] VITALS (61 sets, daily range): BP systolic 86–146; BP diastolic 51–71; PULSE 63–95; RESP 9–21; TEMP 36.6–37; O2SAT 92–100
[2024-10-01 04:37] LABS: Hematocrit 24.1 % (37-53); Hemoglobin 7.90 g/dL (11.27-16.99); Mean Corpuscular HGB Conc 32.8 g/dL (30-55); Mean Corpuscular Hemoglobin 32.6 pg (27-33); Mean Corpuscular Volume 99.6 fl (82-101); Nucleated Red Blood Cells % 0 %; Platelet Count 175 10^3/cmm (157-399); Red Blood Count 2.42 10^6/uL (3.85-5.65); White Blood Count 5.29 10^3/uL (3.29-11.43)
[2024-10-01 04:52] LABS: Alanine Aminotransferase < 5 U/L (0-41); Albumin Level 2.6 g/dL (3.5-5.2); Alkaline Phosphatase 70 U/L (40-130); Anion Gap 8.8 (5-19); Aspartate Amino Transferase 10 U/L (0-40); Blood Urea Nitrogen 16 mg/dL (8-23); Calcium 7.8 mg/dL (8.5-10.5); Carbon Dioxide 30 mmol/L (22-29); Chloride 97 mmol/L (98-107); Globulin 2.9 g/dL (1.3-4.6); Glucose 147 mg/dL (65-115); Osmolality Calculated 280 mOsm/kg (285-295); Sodium 133 mmol/L (136-145); Total Protein 5.5 g/dL (6.6-8.7)
[2024-10-01 04:56] LABS: Creatinine Clr Calc Pharmacy 50.5879
[2024-10-01 04:59] LABS: Potassium 2.8 mmol/L (3.5-5.1)
[2024-10-01 05:05] LABS: Lactic Sepsis W/Reflex 1.0 mmol/L (0.5-2.2)
[2024-10-01] MEDS: ondansetron 2 mg/ML SDV 2 mL 4 MG IVP (08:50)
[2024-10-01] MEDS: ENZALUTAMIDE 80 MG 80 EACH PO (08:52)
[2024-10-01] MEDS: carBAMazepine XR (12 HR) 100 mg Tablet PO ×2 (08:53→17:41)
[2024-10-01] MEDS: fluticasone nasal spray 16gm Btl 1 SPRAY NASAL ×2 (08:54→17:43)
[2024-10-01] MEDS: polyethylene glycol 3350 Pkt 17 gm PO (08:54)
--- NOTE | 2024-10-01 10:55 | PC.OT ---
OT orders received to evaluate and treat. OT evaluation deferred at this time secondary to low potassium levels. Evaluation to be attempted when levels are higher (3.2 mEq/l or higher).
--- NOTE | 2024-10-01 11:29 | PC.CHAP ---
Pastoral Care Encounter/Spiritual Assessment Type of Contact [] Declined binder operator visit [] Patient/Family/Request visit [] Outpatient visit [] Follow-up visit [] Physician referral [] Code/Alert [x] Routine visit [] Staff referral [] Actively dying [] Patient sleeping [] Family support [] [] Out of room [] Palliative care [] [] Receiving care in room [] Pre-surgical visit [] Trauma [] Long length of stay [] ICU visit [] Other: Relational/Emotional Strength [] Patient feels connected with others/family/visitors/staff [] Distress [] Loneliness/isolation [] Abandonment Spirituality of Patient [x] Person of Sully [] Attends Nondenominational of their Sully [x] Believes in Prayer [] Reads Bible or Shinto materials [] There are Spiritual issues to be addressed Arboriculture Teacher Interventions [x] Prayer [x] Active listening [] Non-anxious presence [] Spiritual/emotional support [] Crisis/trauma care [] Spiritual counseling [] Bereavement support [] Provided bereavement packet [] Provided Bible/devotional materials [] Provided toy/stuffed animal, coloring book to patient or family member [] Provided Communion [] Anointing/[place] [] Salvation [] Completed spiritual assessment [] Other: Impact on Illness or Injury [] Angry [] Fearful [] Anxious [] Often cries [] Exhaustion [] Unable to work [] Unable to attend holiness [] Unable to walk/stand [] Unable to read [] Unable to drive [] Unable to eat/drink [] Unable to sleep [] Unable to be with family [] Patient intubated [] Other: Summary Time spent with patient
[2024-10-01] MEDS: HYDROcodone-acetaminophen 5-325 mg Tablet 1 TAB PO ×2 (11:30→17:01)
--- NOTE | 2024-10-01 11:48 | P.PN_ITS ---
Subjective 2 Subjective: the patient was seen in the morning and was having moderate distress secondary to the left foot fracture and swelling podiatry consulted and to follow the plan patient having positive orthostatics, drop in hb, urgent CT abd pelvis with high risk consent for contrast to be done in the best interest of the patient to hold the AC and aspirin at the moment anemia work up and on stand by PRBC Vitals/I&O/Wt Last Vital Signs Temp 98.3 F 10/01/24 11:38 Pulse 88 10/01/24 11:38 Resp 18 10/01/24 11:38 BP 102/56 10/01/24 11:39 Pulse Ox 95 10/01/24 11:38 O2 Del Method Nasal Cannula 10/01/24 11:38 O2 Flow Rate 1.5 10/01/24 07:35 09/30/24 10/01/24 10/01/24 22:59 06:59 14:59 Intake Total 133.333 / 133.333 986.667 / 1120.000 120 / 120 Output Total 200 / 200 600 / 600 Balance 133.333 / 133.333 786.667 / 920.000 -480 / -480 Weight last 48 hrs Weight 82.236 kg Weight 81.647 kg Weight 81.193 kg Physical Exam 2 Narrative: General: Alert oriented x3, patient seen lying in moderate distress due to left foot pain secondary to fracture on 2l nc HEENT: Normocephalic, atraumatic, EOMI, breathing without any distress on 2L NC Cardio: Regular rate rhythm, normal S1-S2, no murmurs rubs gallops, JVD normal Respiratory: Good bilateral air entry, no wheezes no rhonchi appreciated GI: Abdomen soft, mildy tender due to constipation and bloating, normoactive bowel sounds present all 4 quadrants, no organomegaly and no flank tenderness elicited Neuro: gross neurological deficit Behavior: Appropriate and cooperative Extremities: trace pedal edema, having left foot swelling due to fracture and bruise prominent on the planter and dorsal surface, peripheral pulses palpable, Skin: pallor +luis, decreased capillary refill Urinary Catheter Management: Suprapubic: Cath Placed During This Visit: no Reason for Continuing Indwelling Catheter: Chronic Indwelling Urinary Catheter on Admission Data 10/01/24 03:35 10/01/24 03:35 Micro: Microbiology 09/30/24 13:03 Urine Culture - Preliminary Urine,Clean Catch Gram Negative Rods 09/30/24 13:03 Blood Culture - Preliminary Blood SPECIMEN COLLECTED 09/30/24 13:03 Blood Culture - Preliminary Blood SPECIMEN COLLECTED A&P Assessment and plan 1. Sepsis: 2. UTI (urinary tract infection): 3. TUNG (acute kidney injury): 4. Foot fracture, left: 5. Weight loss: 6. Prostate cancer metastatic to bone: 7. Acute deep vein thrombosis (DVT) of popliteal vein of left lower extremity: 8. Lower urinary tract symptoms (LUTS): 9. Dyslipidemia: 10. Type 2 diabetes mellitus without complication, without long-term current use of insulin: 11. Benign essential HTN: 12. Gastroesophageal reflux disease, unspecified whether esophagitis present: 13. Panlobular emphysema: 14. BPH with obstruction/lower urinary tract symptoms: 15. Frequent falls: 16. Anemia: Plan: Sepsis: likely secondary to UTI? 2 sets of blood cultures prelim negative, urine cultures showed gram negative rods, chest x-ray CRP to follow Lactate series: 1.1 normal, repeat considering pt having drop in hb Maintain 2 IV bore cannulas Broad-spectrum antibiotics coverage IV fluid bolus and response to monitor Maintain MAP above 65 Change Dacosta's catheter acute drop in hb ( anemia ): repeat cbc , anemia work up, ct abd pelvis with contrast with high risk consent since the patient had a history of previous rectal bleeding and prostate CA, keep standy PRBC transfer the patient to CSU hold AC and aspirin as well Hypokalemia: 2.8 stat 40oral KCL and IV replacement monitor BMP in the evening Left foot fracture: podiatry consulted and to follow the plan Diabetes mellitus: Insulin sliding scale Hypertension: Hold antihypertensive at the moment considering patient clinical deterioration in the light of sepsis hold metoprolol unless bleeding rules out to avoid any drop in compensatory response Frequent falls: having positive orthostatics, RL bolus OT PT evaluation Fall precaution COPD: DuoNebs Q6 hourly BPH with LUTS: monitor folleys cath care, changed yesterday in urology clinic Monitor intake output TUNG: Adequate hydration Maintain renal functions and electrolytes with correction accordingly Anemia: CT abdomen pelvis since the patient hemoglobin was stable few days ago and to rule out any intraperitoneal bleed Anemia workup Monitor CBC GERD: PPI bid Maalox as needed DVT: Patient on apixaban, Currently hold and put on SCD unless rule out active bleeding by ct ab pelvis with contrast Diet: Cardiac diet PDMP PDMP Reviewed: Not Reviewed Attestations 2 Medical Necessity Statement*: Charlie Jacobs's hospital stay will require greater than 2 midnights for management of sepsis likely secondary to UTI, having acute drop in hb Time Spent in Patient Care: 16 - 35 minutes (>than 50% of time sp ent in counselling and/or direct pt care on unit) . Critical Care Time: The high probability of a clinically significant, sudden or life threatening deterioration, as referenced in this documentation, required my full and direct attention, intervention and personal management. The critical care time shown is in addition to time spent performing any reported separately billable procedures and includes the following: [x] Data and vital sign review and interpretation [x ] Patient assessment, examination and intervention [x] Medication orders and management [x] Patient/Family updates as able [x] Care Coordination and Documentation. Critical Care Time (min): 35 Coding Level of Care Code Critical Care >/= 30 minutes Diagnoses Sepsis A41.9 UTI (urinary tract infection) N39.0 TUNG (acute kidney injury) N17.9 Foot fracture, left S92.902A Weight loss R63.4 Prostate cancer metastatic to bone C61; C79.51 Acute deep vein thrombosis (DVT) of popliteal vein of left lower extremity I82.432 Affected thrombotic vein of extremity: popliteal Chronicity: acute Lower urinary tract symptoms (LUTS) R39.9 Dyslipidemia E78.5 Type 2 diabetes mellitus without complication, without long-term current use of insulin E11.9 Diabetes mellitus complication status: without complication Benign essential HTN I10 Gastroesophageal reflux disease, unspecified whether esophagitis present K21.9 Esophagitis presence: esophagitis presence not specified Panlobular emphysema J43.1 COPD type: emphysema Emphysema type: panlobular BPH with obstruction/lower urinary tract symptoms N40.1; N13.8 Frequent falls R29.6 Anemia D64.9
--- NOTE | 2024-10-01 12:01 | CTR_ITS ---
PROCEDURE INFORMATION: Exam: CT Abdomen And Pelvis With Contrast Exam date and time: 10/01/2024 1:38 PM Age: 79 years old Clinical indication: Other: To rule out any intra peritoneal bleed, patient having deranged renal parameters and improving TECHNIQUE: Imaging protocol: Computed tomography of the abdomen and pelvis with contrast. Radiation optimization: All CT scans at this facility use at least one of these dose optimization techniques: automated exposure control; mA and/or kV adjustment per patient size (includes targeted exams where dose is matched to clinical indication); or iterative reconstruction. Contrast material: OMNI 35; Contrast volume: 100 ml; Contrast route: INTRAVENOUS (IV); COMPARISON: CT abdomen pelvis wo con [id number] 09/30/2024 3:44 PM RADIATION DOSE METRICS: Total DLP (mGy-cm): 709.1 FINDINGS: Tubes, catheters and devices: Suprapubic catheter is in place. The urinary bladder is underdistended. Lungs: Linear subsegmental atelectasis at the lung bases bilaterally. Scattered calcified granulomas in the visualized lung bases. Esophagus: Mild reflux of fluid within the distal esophagus. Liver: Scattered small hypodensities in the liver such as a 1 cm hypodense lesion near the hepatic dome as well as an additional 11 mm hypodensity in the right hepatic lobe (4/19) Gallbladder and biliary ducts: Normal. No calcified stones. No ductal dilation. Pancreas: Redemonstrated diffuse atrophy of the pancreas with pancreatic parenchymal calcifications which can be seen in the setting of chronic pancreatitis. Spleen: Normal. No splenomegaly. Adrenal glands: Normal. No mass. Kidneys and ureters: Redemonstrated mild left hydroureteronephrosis up to the level of a 4 mm calculus in the mid left ureter. No right hydronephrosis. Multiple cysts are noted in the bilateral kidneys largest of which is at the upper pole of the left kidney. Stomach and bowel: High attenuation material within the stomach likely related to recently ingested contents. Scattered fluid-filled non pathologically dilated loops of small bowel. Rectal fecal impaction. Scattered colonic diverticulosis without evidence to suggest acute diverticulitis. Appendix: No evidence of appendicitis. Intraperitoneal space: No intraperitoneal free air. Small amount of fluid within the pelvis. Vasculature: Moderate aortoiliac atherosclerosis. Phleboliths noted within the pelvis. Lymph nodes: Unremarkable. No enlarged lymph nodes. Urinary bladder: See Tubes, catheters and devices finding. Reproductive: Prostatic parenchymal calcifications. Bones/joints: Sacroiliac degenerative changes. 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 Innumerable osteoblastic lesions throughout the thoracolumbar spine. Soft tissues: Small fat containing inguinal hernias. CT/CT abdomen pelvis w con* [id number] IMPRESSION: 1. Redemonstrated 4 mm stone in the left mid ureter with mild upstream hydroureteronephrosis. 2. Scattered fluid-filled non pathologically dilated loops of small bowel with mild wall thickening which may be seen in the setting of small bowel enteritis. 3. Redemonstrated innumerable osteoblastic lesions throughout the thoracolumbar spine. Findings are suspicious for metastatic disease. 4. Indeterminate hypodense lesions in the liver as detailed above not well identified on prior examination. Recommend correlation with clinical and oncologic history as well as further evaluation with MRI as clinically indicated. 5. Other chronic findings as detailed in the body of the report. COMMENTS: Consistent with the [employer]'s Incidental Findings Committee white paper (J Am Manjinder Radiol 2018): Any incidental renal lesion less than 1 cm or classified as too small to characterize, or any incidental cystic renal lesion characterized as simple-appearing, is likely benign. No follow-up imaging is recommended for these lesions per consensus recommendations based on imaging criteria.
--- NOTE | 2024-10-01 12:30 | XRR_ITS ---
PROCEDURE INFORMATION: Exam: XR Chest Exam date and time: 10/01/2024 1:30 PM Age: 79 years old Clinical indication: Other: To rule out any pneumonia TECHNIQUE: Imaging protocol: Radiologic exam of the chest. Views: 1 view. COMPARISON: CR XR chest 1V portable [id number] 01/20/2024 10:37 AM FINDINGS: Lungs: Unremarkable. No consolidation. Pleural spaces: Unremarkable. No pleural effusion. No pneumothorax. Heart/Mediastinum: The cardiomediastinal silhouette is stable. Vasculature: Calcifications of the aortic arch. Bones/joints: Unremarkable. XR/XR chest 1V portable [id number] IMPRESSION: No acute cardiopulmonary abnormality.
[2024-10-01 13:06] LABS: CRP High Sensitivity Cardiac 10.350 mg/dL (0.0-0.3)
[2024-10-01] MEDS: iohexol 350 mg/mL 500 mL Btl (per mL) IV (13:23)
[2024-10-01 13:24] LABS: Hematocrit 27.0 % (37-53); Hemoglobin 8.50 g/dL (11.27-16.99); Mean Corpuscular HGB Conc 31.5 g/dL (30-55); Mean Corpuscular Hemoglobin 32.8 pg (27-33); Mean Corpuscular Volume 104.2 fl (82-101); Nucleated Red Blood Cells % 0 %; Platelet Count 183 10^3/cmm (157-399); Red Blood Count 2.59 10^6/uL (3.85-5.65); White Blood Count 7.21 10^3/uL (3.29-11.43)
[2024-10-01] MEDS: potassium chloride premix 100 ML 50 MEQ IV ×2 (13:57→15:49)
--- NOTE | 2024-10-01 14:13 | PC.NURSE ---
Patient transported to CT via bed on 2L NC. Patient to ICU 9 at 1400 on 2L NC. Patients is at bedside with all belongings.
[2024-10-01] MEDS: piperacillin-tazobactam 3.375 GM in sodium chloride 0.9% (plus) 50 ML IV ×2 (14:16→23:35)
[2024-10-01] MEDS: morphine 4 mg/mL SDV 1 mL 2 MG IVP (14:23)
--- NOTE | 2024-10-01 16:52 | PM.CONSULT ---
Providers/Reason For Consult Consulting Physician/Specialty*: Cristofer Byers D.P.M./podiatry. Reason for Consult*: Left foot fractures. Attending Physician: Valdez Mcclendon MD Primary Care Provider: Joann Knowles DO History of Present Illness History of Present Illness Charlie Jacobs is a 79 year old male with with extensive comorbidities presented to the emergency department with complaints of multiple falls he hit his head on a second fall. He has some gait and balance difficulties he is fallen multiple times recently and on the of this month 4 days ago had a fall resulting in an Nondisplaced fractures of the 3rd and 4th metatarsals and intermediate and lateral cuneiforms. Patient and his who has been taking care of him further informed that the gait imbalance has been there since few weeks to a month or so. Review of Systems General: Reports: 10 or more systems reviewed and unremarkable except in HPI and below Const: Denies: fever(s) or chills Eyes: Denies: change in vision Card: Denies: chest pain or palpitations Resp: Denies: dyspnea or productive cough GI: Denies: abdominal pain, nausea or vomiting : Denies: flank pain Musc: Reports: extremity pain, joint pain, joint stiffness, limited range of motion and deformity Skin/Breast: Reports: skin tenderness; Denies: rash Neuro: Reports: difficulty walking; Denies: numbness in extremities, sensory changes or frequent falls Psych: Denies: suicidal ideation Wilfrid/Lymph: Denies: easy bruising Medications/Allergies Home Medications ?Medication ?Instructions ?Recorded ?Confirmed ?Last Taken ?Type aspirin 81 mg tablet,delayed 81 mg PO DAILY 03/29/19 09/30/24 09/30/24 09:00 History release Walker #1 ea 07/28/22 09/30/24 05/24/23 Rx mv-mn-folic 200 mcg-vit K 15 1 cap PO DAILY 04/09/23 09/30/24 09/30/24 09:00 History mcg-lutein 5 mg-zeaxanthin 1 mg capsule (PreserVision AREDS 2 Plus Multivit) loratadine 10 mg tablet (Claritin) 10 mg PO QPM 07/31/23 09/30/24 09/29/24 20:00 History catheter bags #4 ea 10/08/23 09/30/24 Unknown Rx fluticasone fur. 100 mcg-umeclid 1 ea inhalation DAILY #60 ea 10/13/23 09/30/24 09/29/24 Rx 62.5 mcg-vilant 25 mcg inhalat.powder (Trelegy Ellipta) ipratropium 0.5 mg-albuterol 3 mg 3 ml inhalation Q6H PRN wheezing 11/06/23 09/30/24 09/29/24 19:00 Rx (2.5 mg base)/3 mL nebulization #90 mL soln nebulizer with tubing #1 ea 11/06/23 09/30/24 Unknown Rx polyethylene glycol 3350 17 gram 17 g PO DAILY #30 ea 01/18/24 09/30/24 05/19/24 Rx oral powder packet (Miralax) docusate sodium 100 mg capsule 100 mg PO DAILY PRN constipation 01/29/24 09/30/24 Unknown Rx #60 caps lorazepam 1 mg tablet 1 mg PO DAILY PRN Anxiety 02/01/24 09/30/24 04/24/24 History tamsulosin 0.4 mg capsule 0.4 mg PO QPM #90 caps 04/05/24 09/30/24 09/29/24 20:00 Rx acetaminophen 500 mg tablet 500 mg PO BEDTIME PRN Fever Or Pain 04/24/24 09/30/24 09/29/24 20:00 History (Tylenol Extra Strength) glycerin (adult) 1 supp MN DAILY PRN constipation 04/24/24 09/30/24 Unknown Rx #12 ea lactobacillus comb no.10 20 20,000 mmu cells PO DAILY 04/24/24 09/30/24 09/30/24 History billion cell capsule (Probiotic) cholecalciferol (vitamin D3) 50 50 mcg PO DAILY #90 caps 04/26/24 09/30/24 09/30/24 09:00 Rx mcg (2,000 unit) capsule triamcinolone acetonide 55 mcg 2 spray intranasal DAILY 05/18/24 09/30/24 09/30/24 08:00 History nasal spray aerosol metoprolol succinate 25 mg 12.5 mg PO QAM 05/20/24 09/30/24 05/20/24 History tablet,extended release 24 hr Held on 09/08/24. Instructions: Doctor's Order rosuvastatin 40 mg tablet 40 mg PO BEDTIME #90 tabs 07/12/24 09/30/24 09/29/24 20:00 Rx levothyroxine 175 mcg tablet See Rx Instructions .Route 07/19/24 09/30/24 09/30/24 07:00 Rx .COMPLEX #90 tabs apixaban 5 mg tablet (Eliquis) 5 mg PO BID #90 tabs 07/21/24 09/30/24 09/30/24 08:30 Rx montelukast 10 mg tablet 10 mg PO DAILY #90 tabs 07/21/24 09/30/24 09/30/24 08:00 Rx sitagliptin phosphate 100 mg 100 mg PO QAM #90 tabs 07/21/24 09/30/24 09/30/24 08:00 Rx tablet (Januvia) trazodone 100 mg tablet 100 mg PO QPM #90 tabs 07/21/24 09/30/24 09/29/24 20:00 Rx carbamazepine 100 mg See Rx Instructions .Route 09/02/24 09/30/24 09/30/24 09:00 Rx tablet,extended release,12 hr .COMPLEX #60 tabs prednisone 5 mg tablet 5 mg PO BID #60 tabs 09/12/24 09/30/24 09/30/24 08:30 Rx morphine 30 mg immediate release 30 mg PO Q6H PRN pain 22 days #90 09/20/24 09/30/24 09/29/24 20:00 Rx tablet tabs enzalutamide 80 mg tablet (Xtandi) 80 mg PO DAILY #30 tabs 09/26/24 09/30/24 09/30/24 08:00 Rx ondansetron HCl 8 mg tablet 8 mg PO Q8H PRN Nausea And 09/26/24 09/30/24 Unknown Rx Vomiting #60 tabs famotidine 40 mg tablet (Pepcid) 40 mg PO BID 09/30/24 09/30/24 09/30/24 History metoclopramide HCl 5 mg tablet 5 mg PO TID 09/30/24 09/30/24 09/30/24 History (Reglan) Allergies Allergy/AdvReac Type Severity Reaction Status Date / Time vancomycin Allergy HIVES,RASH Verified 09/26/24 15:14 Current Medications Generic Name Dose Route Start Last Admin Trade Name Freq PRN Reason Stop Dose Admin Hydrocodone Bitart/Acetaminophen 1 tab 09/30/24 14:59 10/03/24 12:22 Hydrocodone-Acetaminophen 5-325 Mg Tablet PO 1 tab Q4H PRN Administration MODERATE TO SEVERE PAIN Albuterol/Ipratropium 3 ml 09/30/24 20:00 10/03/24 13:20 Ipratropium-Albuterol 3 Ml Neb INHALATION Not Given Q6H.RESP EVAN Aspirin 81 mg 10/01/24 09:00 10/01/24 08:53 Aspirin 81 Mg Ec Tablet PO 81 mg On Hold: 10/01/24 12:29 DAILY EVAN Administration Atorvastatin Calcium 80 mg 09/30/24 21:00 10/02/24 20:41 Atorvastatin 40 Mg Tablet PO 80 mg BEDTIME EVAN Administration Carbamazepine 100 mg 09/30/24 18:00 10/03/24 08:20 Carbamazepine Xr (12 Hr) 100 Mg Tablet PO 100 mg BID EVAN Administration Docusate Sodium 100 mg 10/01/24 18:00 10/03/24 08:20 Docusate Sodium 100 Mg Capsule PO 100 mg BID EVAN Administration Fluticasone Propionate 1 spray 09/30/24 21:20 10/03/24 08:21 Fluticasone Nasal [place] 16gm Btl NASAL 1 spray BID EVAN Administration Heparin Sodium (Porcine) 5,000 unit 10/03/24 14:00 10/03/24 14:56 Heparin 5,000 Unit/Ml Inj 1 Ml SUBCUT 5,000 unit Q12H EVAN Administration Gentamicin Sulfate 420 mg/ 110.5 mls @ 110 mls/hr 10/03/24 15:00 10/03/24 15:16 Sodium Chloride IV 110 mls/hr Q24H EVAN Administration Insulin Human Lispro 0 unit 09/30/24 18:00 10/03/24 12:02 Insulin Lispro 100 Unit/1 Ml SUBCUT Not Given TIDWM [facility] Protocol Levothyroxine Sodium 175 mcg 10/03/24 07:00 10/03/24 07:44 Levothyroxine 175 Mcg Tablet PO 175 mcg [id number] EVAN Administration Metoprolol Succinate 12.5 mg 10/01/24 06:00 10/01/24 04:35 Metoprolol Succinate Er (24 Hr) 25 Mg Tablet PO Not Given On Hold: 10/01/24 12:29 QAM EVAN Montelukast Sodium 10 mg 10/01/24 09:00 10/03/24 08:23 Montelukast Sodium 10 Mg Tablet PO 10 mg DAILY EVAN Administration Morphine Sulfate 2 mg 09/30/24 14:59 10/01/24 14:23 Morphine 4 Mg/Ml Sdv 1 Ml IVP 2 mg Q4H PRN Administration SEVERE PAIN Non-Formulary Medication 80 mg 10/01/24 09:00 10/03/24 08:22 Enzalutamide [Xtandi] PO 80 mg DAILY EVAN Administration Ondansetron HCl 4 mg 09/30/24 14:59 10/02/24 08:43 Ondansetron 2 Mg/Ml Sdv 2 Ml IVP 4 mg Q8H PRN Administration vomiting, or N/V if npo Oxycodone HCl 10 mg 10/01/24 18:00 10/03/24 08:20 Oxycodone 10 Mg Er (12 Hr) Tablet PO 10/03/24 17:59 10 mg BID EVAN Administration Polyethylene Glycol 17 gm 10/01/24 09:00 10/03/24 08:19 Polyethylene Glycol 3350 Pkt 17 Gm PO 17 gm DAILY EVAN Administration Potassium Phosphate 250 mg 10/02/24 18:00 10/03/24 08:23 Phosphorus 250 Mg Tablet PO 10/07/24 17:59 250 mg BID EVAN Administration Prednisone 5 mg 09/30/24 18:00 10/03/24 08:24 Prednisone 5 Mg Tablet PO 5 mg BID EVAN Administration Tamsulosin HCl 0.4 mg 09/30/24 18:00 10/02/24 17:36 Tamsulosin 0.4 Mg Capsule PO 0.4 mg QPM EVAN Administration PFSH Acute PFSH: Medical History (Updated 10/03/24 @ 16:59 by Alex Byers DPM) Weight loss Viral URI with cough Hospital discharge follow-up Papillary thyroid carcinoma Suprapubic catheter Prostate cancer metastatic to bone Deep vein thrombosis (DVT) of left lower extremity Nausea & vomiting Lower urinary tract symptoms (LUTS) Cancer related pain Urinary tract infection Right kidney mass Burning sensation of feet Lumbar stenosis with neurogenic claudication Intervertebral disc disorder with radiculopathy of lumbosacral region Metastasis to bone Dyslipidemia History of diverticulitis Type 2 diabetes mellitus without complication, without long-term current use of insulin Benign essential HTN Post-surgical hypothyroidism Insomnia GERD (gastroesophageal reflux disease) COPD (chronic obstructive pulmonary disease) 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 Prostate cancer History of thyroid cancer Surgical History History of bladder surgery History of prostate surgery H/O transurethral resection of prostate History of cystostomy S/P cystourethroscopy with dilation of urethral stricture History of lumbar discectomy History of colonoscopy (07/12/19) diverticulosis, repeat 10 years History of orchiectomy, bilateral H/O total knee replacement BILATERAL H/O hernia repair History of hemorrhoidectomy History of uvulectomy History of thyroidectomy, subtotal Family History Mother , in her 90's Cancer Diabetes Sister Diabetes Father , in his 70's No problems noted. Other CAD (coronary artery disease) Social History Smoking and tobacco/nicotine status: never used tobacco/nicotine Quit status (tobacco/nicotine): has quit using Year quit tobacco: 2022 Former quit date comment: stopped in February of this year Alcohol intake: never Substance/Drug Use: never Lives independently: Yes Household members: spouse Marital status: Current occupational status: retired Vitals/I&O/Wt Last Vital Signs Temp 97.7 F 10/03/24 08:00 Pulse 68 10/03/24 14:00 Resp 18 10/03/24 14:00 BP 122/69 10/03/24 12:00 Pulse Ox 91 10/03/24 14:00 O2 Del Method Nasal Cannula 10/03/24 14:00 O2 Flow Rate 2 10/03/24 14:00 10/03/24 10/03/24 10/03/24 06:59 14:59 22:59 Intake Total 50 / 1565 650 / 650 Output Total 1999 / 3174 450 / 450 Balance -1950 / -1610 200 / 200 Weight last 48 hrs Weight 207 lb 10.807 oz Weight 207 lb 3.752 oz Weight 194 lb 0.108 oz Physical Exam Narrative: GENERAL: Patient is alert and oriented ?3 and in no acute distress. The following is a focused bilateral lower extremity exam. accompanied by his . Patient is ambulatory. VASCULAR: Dorsalis pedis palpable bilaterally, posterior tibial arteries palpable. Capillary refill time less than 3 seconds to the distal hallux bilaterally. Calf is supple and nontender proximally and distally. Decreased pedal hair growth. No edema. Mild varicosities and telangiectasias to the lower extremities. NEUROLOGICAL: Protective sensation intact 8/10 sites, tested with [place] monofilament to bilateral feet. DERMATOLOGICAL: Dry skin to the bilateral lower extremity. No wounds to the bilateral lower extremity. MUSCULOSKELETAL: Muscle strength 5 out of 5 in all 3 cardinal planes to the bilateral foot and ankle. Tenderness at left tarsometatarsal joint. Urinary Catheter Management: Suprapubic: Cath Placed During This Visit: no Reason for Continuing Indwelling Catheter: Accurate Measurement of Urinary Output in Critically Ill Patients Data 10/03/24 04:39 10/03/24 04:39 Micro: Microbiology 09/30/24 13:03 Urine Culture - Final Urine,Clean Catch Morganella morganii A&P Assessment and plan 1. Closed nondisplaced fracture of third metatarsal bone of left foot, initial encounter: 2. Closed nondisplaced fracture of fourth metatarsal bone of left foot, initial encounter: 3. Closed nondisplaced fracture of intermediate cuneiform of left foot, initial encounter: 4. Closed nondisplaced fracture of lateral cuneiform of left foot, initial encounter: 5. Type 2 diabetes mellitus without complication, without long-term current use of insulin: Plan: 79-year-old male history of reoccurring falls sustained an injury to his left foot, x-ray negative however on CT scan there are avulsion fractures of the 3rd and 4th metatarsal base and intermediate and lateral cuneiform of the left foot. Left 1st, 2nd, 3rd, 4th and 5th tarsometatarsal joints are congruent without displacement or subluxation. -Immobilization with Cam boot to the left lower extremity. Order for cam boot to be fitted by physical therapy -May weight-bear as tolerated with Cam boot and a walker Follow-up outpatient in podiatry clinic for continued fracture care. PDMP PDMP Reviewed: Not Reviewed Coding Level of Care Code Acute Code for Chg Fwd Diagnoses Closed nondisplaced fracture of third metatarsal bone of left foot, initial encounter S92.335A Encounter type: initial encounter Fracture type: closed Fracture alignment: nondisplaced Closed nondisplaced fracture of fourth metatarsal bone of left foot, initial encounter S92.345A Encounter type: initial encounter Fracture type: closed Fracture alignment: nondisplaced Closed nondisplaced fracture of intermediate cuneiform of left foot, initial encounter S92.235A Encounter type: initial encounter Fracture type: closed Fracture alignment: nondisplaced Closed nondisplaced fracture of lateral cuneiform of left foot, initial encounter S92.225A Encounter type: initial encounter Fracture type: closed Fracture alignment: nondisplaced Type 2 diabetes mellitus without complication, without long-term current use of insulin E11.9 Diabetes mellitus complication status: without complication
[2024-10-01] MEDS: oxyCODONE 10 mg ER (12 HR) Tablet PO (17:41)
[2024-10-01] MEDS: pantoprazole 40 mg SDV IVP (17:42)
[2024-10-01 18:04] LABS: Hematocrit 25.1 % (37-53); Hemoglobin 7.70 g/dL (11.27-16.99); Mean Corpuscular HGB Conc 30.7 g/dL (30-55); Mean Corpuscular Hemoglobin 31.6 pg (27-33); Mean Corpuscular Volume 102.9 fl (82-101); Nucleated Red Blood Cells % 0 %; Platelet Count 176 10^3/cmm (157-399); Red Blood Count 2.44 10^6/uL (3.85-5.65); White Blood Count 5.93 10^3/uL (3.29-11.43)
[2024-10-01 18:27] LABS: Anion Gap 13.5 (5-19); Blood Urea Nitrogen 18 mg/dL (8-23); Calcium 7.5 mg/dL (8.5-10.5); Carbon Dioxide 26 mmol/L (22-29); Chloride 100 mmol/L (98-107); Creatinine Clr Calc Pharmacy 47.2154; Glucose 183 mg/dL (65-115); Osmolality Calculated 287 mOsm/kg (285-295); Potassium 4.5 mmol/L (3.5-5.1); Sodium 135 mmol/L (136-145)
[2024-10-02] VITALS (148 sets, daily range): BP systolic 94–128; BP diastolic 50–77; PULSE 58–119; RESP 9–29; TEMP 36.4–37.1; O2SAT 85–100
[2024-10-02 01:43] LABS: Hematocrit 22.6 % (37-53); Hemoglobin 7.30 g/dL (11.27-16.99); Mean Corpuscular HGB Conc 32.3 g/dL (30-55); Mean Corpuscular Hemoglobin 32.2 pg (27-33); Mean Corpuscular Volume 99.6 fl (82-101); Nucleated Red Blood Cells % 0 %; Platelet Count 174 10^3/cmm (157-399); Red Blood Count 2.27 10^6/uL (3.85-5.65); White Blood Count 5.34 10^3/uL (3.29-11.43)
[2024-10-02 04:33] LABS: Hematocrit 23.0 % (37-53); Hemoglobin 7.30 g/dL (11.27-16.99); Mean Corpuscular HGB Conc 31.7 g/dL (30-55); Mean Corpuscular Hemoglobin 31.9 pg (27-33); Mean Corpuscular Volume 100.4 fl (82-101); Nucleated Red Blood Cells % 0 %; Platelet Count 171 10^3/cmm (157-399); Red Blood Count 2.29 10^6/uL (3.85-5.65); White Blood Count 4.50 10^3/uL (3.29-11.43)
[2024-10-02 05:04] LABS: Alanine Aminotransferase < 5 U/L (0-41); Albumin Level 2.4 g/dL (3.5-5.2); Alkaline Phosphatase 86 U/L (40-130); Anion Gap 11.5 (5-19); Aspartate Amino Transferase 9 U/L (0-40); Blood Urea Nitrogen 17 mg/dL (8-23); Calcium 7.6 mg/dL (8.5-10.5); Carbon Dioxide 27 mmol/L (22-29); Chloride 105 mmol/L (98-107); Globulin 2.9 g/dL (1.3-4.6); Glucose 145 mg/dL (65-115); Osmolality Calculated 292 mOsm/kg (285-295); Potassium 4.5 mmol/L (3.5-5.1); Sodium 139 mmol/L (136-145); Total Protein 5.3 g/dL (6.6-8.7)
[2024-10-02 05:08] LABS: Creatinine Clr Calc Pharmacy 50.5879
[2024-10-02] MEDS: piperacillin-tazobactam 3.375 GM in sodium chloride 0.9% (plus) 50 ML IV ×3 (05:43→20:43)
[2024-10-02] MEDS: carBAMazepine XR (12 HR) 100 mg Tablet PO ×2 (08:27→17:36)
[2024-10-02] MEDS: oxyCODONE 10 mg ER (12 HR) Tablet PO ×2 (08:27→17:36)
[2024-10-02] MEDS: fluticasone nasal spray 16gm Btl 1 SPRAY NASAL (08:28)
[2024-10-02] MEDS: polyethylene glycol 3350 Pkt 17 gm PO (08:29)
[2024-10-02] MEDS: pantoprazole 40 mg SDV IVP ×2 (08:29→17:37)
[2024-10-02] MEDS: ondansetron 2 mg/ML SDV 2 mL 4 MG IVP (08:43)
[2024-10-02] MEDS: ENZALUTAMIDE 80 MG 80 EACH PO (09:27)
[2024-10-02] MEDS: magnesium sulfate premix 2 GM/50 ML PIGGYBACK IV (10:39)
--- NOTE | 2024-10-02 16:41 | P.PN_ITS ---
Subjective 2 Subjective: the patient was seen in the morning and was having mild distress secondary to the left foot fracture and swelling but is doing better podiatry consulted and planned for the wt bearing boots and no surgical intervention patient having positive orthostatics, drop in hb, urgent CT abd pelvis did not show any bleeding to hold the AC and aspirin at the moment since there is still low hb and keep prbc standby Vitals/I&O/Wt Last Vital Signs Temp 97.8 F 10/02/24 16:10 Pulse 70 10/02/24 16:10 Resp 14 10/02/24 16:10 BP 117/65 10/02/24 16:10 Pulse Ox 97 10/02/24 16:10 O2 Del Method Nasal Cannula 10/02/24 16:10 O2 Flow Rate 1.5 10/02/24 13:34 10/02/24 10/02/24 10/02/24 06:59 14:59 22:59 Intake Total 250 / 2993.333 700 / 700 Balance 250 / 793.333 700 / 700 Weight last 48 hrs Weight 94 kg Weight 88 kg Weight 82.236 kg Physical Exam 2 Narrative: General: Alert oriented x3, patient seen lying in mild distress due to left foot pain secondary to fracture on 2l nc HEENT: Normocephalic, atraumatic, EOMI, breathing without any distress on 2L NC Cardio: Regular rate rhythm, normal S1-S2, no murmurs rubs gallops, JVD normal Respiratory: Good bilateral air entry, no wheezes no rhonchi appreciated GI: Abdomen soft, mildy tender due to constipation and bloating, normoactive bowel sounds present all 4 quadrants, no organomegaly and no flank tenderness elicited Neuro: gross neurological deficit Behavior: Appropriate and cooperative Extremities: trace pedal edema, having left foot swelling due to fracture and bruise prominent on the planter and dorsal surface, peripheral pulses palpable, Skin: pallor +luis, decreased capillary refill Urinary Catheter Management: Suprapubic: Cath Placed During This Visit: no Reason for Continuing Indwelling Catheter: Accurate Measurement of Urinary Output in Critically Ill Patients Data 10/02/24 04:04 10/02/24 04:04 Micro: Microbiology 09/30/24 13:03 Blood Culture - Preliminary Blood 09/30/24 13:03 Blood Culture - Preliminary Blood NEGATIVE TO DATE A&P Assessment and plan 1. Sepsis: 2. UTI (urinary tract infection): 3. TUNG (acute kidney injury): 4. Foot fracture, left: 5. Weight loss: 6. Prostate cancer metastatic to bone: 7. Acute deep vein thrombosis (DVT) of popliteal vein of left lower extremity: 8. Lower urinary tract symptoms (LUTS): 9. Dyslipidemia: 10. Type 2 diabetes mellitus without complication, without long-term current use of insulin: 11. Benign essential HTN: 12. Gastroesophageal reflux disease, unspecified whether esophagitis present: 13. Panlobular emphysema: 14. BPH with obstruction/lower urinary tract symptoms: 15. Frequent falls: 16. Anemia: Plan: Sepsis: likely secondary to UTI? 2 sets of blood cultures prelim negative, urine cultures showed gram negative rods, chest x-ray was unremarkable CRP increased Lactate series: 1.1 normal, repeat considering pt having drop in hb Maintain 2 IV bore cannulas continue zosyn, urine culture showed gram negative rods and to follow the culture sensitivity Maintain MAP above 65 maintain folleys cath care acute drop in hb ( anemia ): stable hb above 7, prbc transfusion below 7 ct abd pelvis with contrast with high risk consent did not show any acute bleeding keep standy PRBC patient vitals are stable, no tachycardia or any drop in bp, however have orthostatics, keep adequate hydration transfer the patient to CSU hold AC and aspirin at the moment Hypokalemia: resolved 2.8 and replaced provided cont to monitor Left foot fracture: podiatry consulted and not for surgical intervention wt bearing boots rehab and OT/PT Diabetes mellitus: Insulin sliding scale Hypertension: hold anti HTN and BB at the moment Frequent falls: having positive orthostatics, RL bolus OT PT evaluation Fall precaution COPD: DuoNebs Q6 hourly BPH with LUTS: monitor folleys cath care, changed day before the admission in urology clinic Monitor intake output TUNG: Adequate hydration Maintain renal functions and electrolytes with correction accordingly Anemia: anemia work up and to follow Monitor CBC GERD: PPI bid Maalox as needed DVT: Patient on apixaban, Currently hold and put on SCD unless rule out active bleeding by ct ab pelvis with contrast Diet: Cardiac diet Disposition: pt need OT/PT evaluation and assessment of gait before safe discharge PDMP PDMP Reviewed: Not Reviewed Attestations 2 Medical Necessity Statement*: Charlie Jacobs's hospital stay will require greater than 2 midnights for management of sepsis likely secondary to UTI, having acute drop in hb Time Spent in Patient Care: 16 - 35 minutes (>than 50% of time sp ent in counselling and/or direct pt care on unit) . Critical Care Time: The high probability of a clinically significant, sudden or life threatening deterioration, as referenced in this documentation, required my full and direct attention, intervention and personal management. The critical care time shown is in addition to time spent performing any reported separately billable procedures and includes the following: [x] Data and vital sign review and interpretation [x ] Patient assessment, examination and intervention [x] Medication orders and management [x] Patient/Family updates as able [x] Care Coordination and Documentation. Other Attestations: Patient condition has been discussed at length with the patient/family, I have independently reviewed the chart labs imaging and diagnostics and EKG. the goals of care and code status with the patient/family/NOK/legal cash application representative, and documented accordingly. The patient/family has been informed about the current condition and further plan of care. Agreed with the plan of care and understood without any language barrier. This documentation was created by [employer] drawing supervisor software. Every effort was made to ensure accuracy of drawing supervisor. Any obvious errors or omissions should be clarified with the author of the document. Coding Level of Care Code Critical Care >/= 30 minutes Diagnoses Sepsis A41.9 UTI (urinary tract infection) N39.0 TUNG (acute kidney injury) N17.9 Foot fracture, left S92.902A Weight loss R63.4 Prostate cancer metastatic to bone C61; C79.51 Acute deep vein thrombosis (DVT) of popliteal vein of left lower extremity I82.432 Affected thrombotic vein of extremity: popliteal Chronicity: acute Lower urinary tract symptoms (LUTS) R39.9 Dyslipidemia E78.5 Type 2 diabetes mellitus without complication, without long-term current use of insulin E11.9 Diabetes mellitus complication status: without complication Benign essential HTN I10 Gastroesophageal reflux disease, unspecified whether esophagitis present K21.9 Esophagitis presence: esophagitis presence not specified Panlobular emphysema J43.1 COPD type: emphysema Emphysema type: panlobular BPH with obstruction/lower urinary tract symptoms N40.1; N13.8 Frequent falls R29.6 Anemia D64.9
[2024-10-02 17:35] LABS: Hematocrit 27.4 % (37-53); Hemoglobin 8.60 g/dL (11.27-16.99); Mean Corpuscular HGB Conc 31.4 g/dL (30-55); Mean Corpuscular Hemoglobin 31.7 pg (27-33); Mean Corpuscular Volume 101.1 fl (82-101); Nucleated Red Blood Cells % 0 %; Platelet Count 224 10^3/cmm (157-399); Red Blood Count 2.71 10^6/uL (3.85-5.65); White Blood Count 4.61 10^3/uL (3.29-11.43)
[2024-10-02 17:56] LABS: Lactate (Lactic Acid level) 2.1 mmol/L (0.5-2.2)
[2024-10-02 18:00] LABS: Ferritin 194 ng/mL (30-400); Iron 31 ug/dL (59-158); Total Iron Binding Capacity 224 mcg/dl; Unsaturated Iron Binding 193 ug/dL (112-347)
[2024-10-02 18:16] LABS: Vitamin B12 336 pg/mL (232-1245)
--- NOTE | 2024-10-02 18:16 | PC.NURSE ---
Shift note: Uneventful shift. Patient back and forth from bed to chair multiple times through shift. Patient reports feeling nauseous after meals, One small bowel movement. Patient blood pressure fluctuates through shift as documented, patient reports no symptoms.
--- NOTE | 2024-10-02 21:26 | PC.NURSE ---
Patients 100 mg PO Trazadone scheduled for 1800 and was administered at 1736. He is now unable to sleep and requested something to help. Provider notified of trazadone administration order, gave orders to change administration time to 2100 beginning 10/03 and give a one time order of 15mg PO Restoril tonight. Order edited and placed. See MAR
[2024-10-03] VITALS (22 sets, daily range): BP systolic 101–155; BP diastolic 59–80; PULSE 57–92; RESP 12–22; TEMP 36.5–36.9; O2SAT 91–98; BMI 25.9
[2024-10-03 05:22] LABS: Hematocrit 24.2 % (37-53); Hemoglobin 7.60 g/dL (11.27-16.99); Mean Corpuscular HGB Conc 31.4 g/dL (30-55); Mean Corpuscular Hemoglobin 31.8 pg (27-33); Mean Corpuscular Volume 101.3 fl (82-101); Nucleated Red Blood Cells % 0 %; Platelet Count 187 10^3/cmm (157-399); Red Blood Count 2.39 10^6/uL (3.85-5.65); White Blood Count 3.37 10^3/uL (3.29-11.43)
[2024-10-03 06:00] LABS: Alanine Aminotransferase < 5 U/L (0-41); Albumin Level 2.4 g/dL (3.5-5.2); Alkaline Phosphatase 76 U/L (40-130); Anion Gap 13.5 (5-19); Aspartate Amino Transferase 9 U/L (0-40); Blood Urea Nitrogen 14 mg/dL (8-23); Calcium 7.8 mg/dL (8.5-10.5); Carbon Dioxide 27 mmol/L (22-29); Chloride 105 mmol/L (98-107); Creatinine Clr Calc Pharmacy 62.3979; Globulin 3.0 g/dL (1.3-4.6); Glucose 159 mg/dL (65-115); Osmolality Calculated 296 mOsm/kg (285-295); Potassium 4.5 mmol/L (3.5-5.1); Sodium 141 mmol/L (136-145); Total Protein 5.4 g/dL (6.6-8.7)
[2024-10-03] MEDS: piperacillin-tazobactam 3.375 GM in sodium chloride 0.9% (plus) 50 ML IV (06:00)
[2024-10-03] MEDS: pantoprazole 40 mg SDV IVP (08:19)
[2024-10-03] MEDS: polyethylene glycol 3350 Pkt 17 gm PO (08:19)
[2024-10-03] MEDS: carBAMazepine XR (12 HR) 100 mg Tablet PO ×2 (08:20→18:25)
[2024-10-03] MEDS: oxyCODONE 10 mg ER (12 HR) Tablet PO (08:20)
[2024-10-03] MEDS: fluticasone nasal spray 16gm Btl 1 SPRAY NASAL ×2 (08:21→17:00)
[2024-10-03] MEDS: ENZALUTAMIDE 80 MG 80 EACH PO (08:22)
--- NOTE | 2024-10-03 09:03 | PM.PN ---
Subjective Subjective: the patient was seen in the morning and was having mild distress secondary to the left foot fracture and swelling but is doing better and is improved relatively done yesterday podiatry consulted and planned for the wt bearing boots and no surgical intervention, awaited the boots for further OT PT and gait mobility patient having positive orthostatics, drop in hb, urgent CT abd pelvis did not show any bleeding to hold the AC and aspirin at the moment since there is still low hb and keep prbc standby Vitals/I&O/Wt Last Vital Signs Temp 98.2 F 10/03/24 04:00 Pulse 79 10/03/24 08:07 Resp 18 10/03/24 08:20 BP 111/64 10/03/24 04:00 Pulse Ox 92 10/03/24 08:20 O2 Del Method Room Air 10/03/24 08:07 O2 Flow Rate 1.5 10/02/24 19:59 10/02/24 10/03/24 10/03/24 22:59 06:59 14:59 Intake Total 815 / 1515 50 / 1565 Output Total 1175 / 1175 1999 / 3175 Balance -360 / 340 -1950 / -1610 Weight last 48 hrs Weight 94.2 kg Weight 94 kg Weight 88 kg Physical Exam Narrative: General: Alert oriented x3, patient seen lying in mild distress due to left foot pain secondary to fracture on 2l nc HEENT: Normocephalic, atraumatic, EOMI, breathing without any distress on 2L NC Cardio: Regular rate rhythm, normal S1-S2, no murmurs rubs gallops, JVD normal Respiratory: Good bilateral air entry, no wheezes no rhonchi appreciated GI: Abdomen soft, mildy tender due to constipation and bloating, normoactive bowel sounds present all 4 quadrants, no organomegaly and no flank tenderness elicited Neuro: gross neurological deficit Behavior: Appropriate and cooperative Extremities: trace pedal edema, having left foot swelling due to fracture and bruise prominent on the planter and dorsal surface, peripheral pulses palpable, Skin: pallor +luis, decreased capillary refill Urinary Catheter Management: Suprapubic: Cath Placed During This Visit: no Reason for Continuing Indwelling Catheter: Accurate Measurement of Urinary Output in Critically Ill Patients Data 10/03/24 04:39 10/03/24 04:39 Micro: Microbiology 08/22/25 13:03 Urine Culture - Final Urine,Clean Catch Morganella morganii A&P Assessment and plan 1. Sepsis: 2. UTI (urinary tract infection): 3. TUNG (acute kidney injury): 4. Foot fracture, left: 5. Weight loss: 6. Prostate cancer metastatic to bone: 7. Acute deep vein thrombosis (DVT) of popliteal vein of left lower extremity: 8. Lower urinary tract symptoms (LUTS): 9. Dyslipidemia: 10. Type 2 diabetes mellitus without complication, without long-term current use of insulin: 11. Benign essential HTN: 12. Gastroesophageal reflux disease, unspecified whether esophagitis present: 13. Panlobular emphysema: 14. BPH with obstruction/lower urinary tract symptoms: 15. Frequent falls: 16. Anemia: Plan: Sepsis: likely secondary to UTI? 2 sets of blood cultures prelim negative, urine cultures showed gram negative rods and Morganella morganii which was also seen his in his previous urine cultures sensitive to only gentamicin and amikacin chest x-ray was unremarkable Zosyn switched to gentamicin based on the culture sensitivity and as per pharmacist review Maintain MAP above 65 maintain folleys cath care acute drop in hb ( anemia ): stable hb above 7, prbc transfusion below 7 ct abd pelvis with contrast with high risk consent did not show any acute bleeding keep standy PRBC patient vitals are stable, no tachycardia or any drop in bp, however have orthostatics, keep adequate hydration transfer the patient to [facility] hold AC and aspirin at the moment Folate deficiency: Continue on folate replacement Dietitian consult for diet recommendations Hypokalemia: resolved 2.8 and replaced provided cont to monitor Left foot fracture: podiatry consulted and not for surgical intervention wt bearing boots rehab and OT/PT Diabetes mellitus: Insulin sliding scale Hypertension: hold anti HTN and BB at the moment Frequent falls: having positive orthostatics OT PT evaluation Fall precaution COPD: DuoNebs Q6 hourly BPH with LUTS: monitor folleys cath care, changed day before the admission in urology clinic Monitor intake output TUNG: resolving Adequate hydration to continue Maintain renal functions and electrolytes with correction accordingly Anemia: anemia work up mixed picture iron deficiency and anemia of chronic disease picture Folate deficiency identified and to correct accordingly Monitor CBC and keep hemoglobin above 7 GERD: PPI daily since no active source of bleeding found Maalox as needed DVT: Patient on apixaban,. Heparin twice daily patient has history of prostate cancer therefore is at risk of DVT however also at risk of bleeding as well. Currently hemoglobin has been stable in the last 2 to 3 days and no drop below 7. In case hemoglobin drop below 7 stat stop any anticoagulation or pharmacological VTE prophylaxis Hold SCDs since the patient has history of left lower extremity DVT Diet: Cardiac diet Disposition: pt need OT/PT evaluation and assessment of gait before safe discharge PDMP PDMP Reviewed: Not Reviewed Attestations Medical Necessity Statement*: Charlie Jacobs's hospital stay will require greater than 2 midnights for management of sepsis likely secondary to UTI, having acute drop in hb Time Spent in Patient Care: 16 - 35 minutes (>than 50% of time spent in counselling and/or direct pt care on unit). Critical Care Time: The high probability of a clinically significant, sudden or life threatening deterioration, as referenced in this documentation, required my full and direct attention, intervention and personal management. The critical care time shown is in addition to time spent performing any reported separately billable procedures and includes the following: [x] Data and vital sign review and interpretation [x] Patient assessment, examination and intervention [x] Medication orders and management [x] Patient/Family updates as able [x] Care Coordination and Documentation. Critical Care Time (min): 35 Other Attestations: Patient condition has been discussed at length with the patient/family, I have independently reviewed the chart labs imaging and diagnostics and EKG. the goals of care and code status with the patient/family/NOK/legal inside outside sales representative, and documented accordingly. The patient/family has been informed about the current condition and further plan of care. Agreed with the plan of care and understood without any language barrier. This documentation was created by [employer] gas line installer supervisor software. Every effort was made to ensure accuracy of gas line installer supervisor. Any obvious errors or omissions should be clarified with the author of the document. Coding Level of Care Code Critical Care >/= 30 minutes Diagnoses Sepsis A41.9 UTI (urinary tract infection) N39.0 TUNG (acute kidney injury) N17.9 Foot fracture, left S92.902A Weight loss R63.4 Prostate cancer metastatic to bone C61; C79.51 Acute deep vein thrombosis (DVT) of popliteal vein of left lower extremity I82.432 Affected thrombotic vein of extremity: popliteal Chronicity: acute Lower urinary tract symptoms (LUTS) R39.9 Dyslipidemia E78.5 Type 2 diabetes mellitus without complication, without long-term current use of insulin E11.9 Diabetes mellitus complication status: without complication Benign essential HTN I10 Gastroesophageal reflux disease, unspecified whether esophagitis present K21.9 Esophagitis presence: esophagitis presence not specified Panlobular emphysema J43.1 COPD type: emphysema Emphysema type: panlobular BPH with obstruction/lower urinary tract symptoms N40.1; N13.8 Frequent falls R29.6 Anemia D64.9
[2024-10-03] MEDS: HYDROcodone-acetaminophen 5-325 mg Tablet 1 TAB PO ×2 (12:22→16:59)
--- NOTE | 2024-10-03 14:20 | PC.PHAR ---
Addendum entered and electronically signed by Tony Mckoy 10/04/24 07:26: Laboratory Tests 10/04/24 00:59 WBC 3.38 Creatinine 1.1 Gentamicin Trough 6.3 PER THE NOMOGRAM WITH THE TROUGH AT 6.3, ADJUSTING FREQUENCY TO Q36H. Original Note: Microbiology 09/30/24 13:03 Urine,Clean Catch Urine Culture - Final Morganella morganii Laboratory Tests 10/03/24 04:39 WBC 3.37 Creatinine 1.2 GENTAMICIN DOSING PER PHARMACY INITIAL DOSE OF 420 MG Q24H (5 MG/KG USING IBW) WILL OBTAIN LEVEL 10 HOURS AFTER FIRST DOSE AND USE URBAN AND SELIN NOMOGRAM FOR FURTHER DOSING
--- NOTE | 2024-10-03 14:46 | PC.NURSE ---
Report called to [facility]. Report given to ADONIS Griffin
[2024-10-03] MEDS: heparin 5,000 unit/mL INJ 1 mL 5000 UNIT SUBCUT (14:56)
--- NOTE | 2024-10-03 15:00 | PC.NURSE ---
Pt transferred to room 102. All belongings with pt and/or his . ADONIS Griffin waiting. Home non-formulary med given to her. Pt assisted back to bed. Ortho boot removed while pt resting in bed.
--- NOTE | 2024-10-03 15:09 | PC.SOCIAL ---
IMM updated IMM dated and initialed, Copy placed in chart and copy given to patient
[2024-10-03] MEDS: GENTAMICIN IV (15:16)
[2024-10-03] MEDS: SODIUM CHLORIDE 0.9% IV (15:16)
[2024-10-04] VITALS (11 sets, daily range): BP systolic 109–143; BP diastolic 69–79; PULSE 64–96; RESP 13–17; TEMP 36.4–36.9; O2SAT 93–97
[2024-10-04 01:07] LABS: Hematocrit 24.4 % (37-53); Hemoglobin 8.00 g/dL (11.27-16.99); Mean Corpuscular HGB Conc 32.8 g/dL (30-55); Mean Corpuscular Hemoglobin 32.3 pg (27-33); Mean Corpuscular Volume 98.4 fl (82-101); Nucleated Red Blood Cells % 0 %; Platelet Count 217 10^3/cmm (157-399); Red Blood Count 2.48 10^6/uL (3.85-5.65); White Blood Count 3.38 10^3/uL (3.29-11.43)
--- NOTE | 2024-10-04 01:10 | PC.NURSE ---
patient transferred up to [facility] [id number], all patients belonging with patient, a voicemail was left to Ana () on phone number [phone] saying that we transferred the patient.
[2024-10-04 01:22] LABS: Gentamicin Trough 6.3 ug/mL (0.0-8.0)
[2024-10-04 01:27] LABS: Alanine Aminotransferase < 5 U/L (0-41); Albumin Level 2.8 g/dL (3.5-5.2); Alkaline Phosphatase 80 U/L (40-130); Anion Gap 13.3 (5-19); Aspartate Amino Transferase 8 U/L (0-40); Blood Urea Nitrogen 12 mg/dL (8-23); Calcium 7.8 mg/dL (8.5-10.5); Carbon Dioxide 24 mmol/L (22-29); Chloride 106 mmol/L (98-107); Creatinine Clr Calc Pharmacy 68.0705; Globulin 2.5 g/dL (1.3-4.6); Glucose 143 mg/dL (65-115); Osmolality Calculated 290 mOsm/kg (285-295); Potassium 4.3 mmol/L (3.5-5.1); Sodium 139 mmol/L (136-145); Total Protein 5.3 g/dL (6.6-8.7)
[2024-10-04] MEDS: heparin 5,000 unit/mL INJ 1 mL 5000 UNIT SUBCUT (02:49)
[2024-10-04] MEDS: metoprolol succinate ER (24 HR) 25 mg Tablet 12.5 MG PO (06:19)
[2024-10-04] MEDS: carBAMazepine XR (12 HR) 100 mg Tablet PO ×2 (09:29→17:19)
[2024-10-04] MEDS: fluticasone nasal spray 16gm Btl 1 SPRAY NASAL (09:30)
[2024-10-04] MEDS: pantoprazole 40 mg SDV IVP (09:30)
[2024-10-04] MEDS: ENZALUTAMIDE 80 MG 80 EACH PO (09:30)
--- NOTE | 2024-10-04 12:59 | PM.PN ---
Subjective Subjective: the patient was seen in the morning and was having mild distress secondary to the left foot fracture and on boots, podiatry consulted on board a UTI with resistant organism and on IV abx Vitals/I&O/Wt Last Vital Signs Temp 97.8 F 10/04/24 11:51 Pulse 89 10/04/24 11:51 Resp 17 10/04/24 11:51 BP 109/73 10/04/24 11:51 Pulse Ox 96 10/04/24 11:51 O2 Del Method Room Air 10/04/24 11:51 O2 Flow Rate 2 10/04/24 07:55 10/03/24 10/04/24 10/04/24 22:59 06:59 14:59 Intake Total 830.5 / 1480.5 480 / 480 Output Total 1950 / 2400 900 / 3300 Balance -1119.5 / -919.5 -900 / -1819.5 480 / 480 Weight last 48 hrs Weight 83.149 kg Weight 94.2 kg Physical Exam Narrative: General: Alert oriented x3, patient seen lying in mild distress due to left foot pain secondary to fracture on 2l nc and on boot support for the fracture HEENT: Normocephalic, atraumatic, EOMI, breathing without any distress on 2L NC Cardio: Regular rate rhythm, normal S1-S2, no murmurs rubs gallops, JVD normal Respiratory: Good bilateral air entry, no wheezes no rhonchi appreciated GI: Abdomen soft, mildy tender due to constipation and bloating, normoactive bowel sounds present all 4 quadrants, no organomegaly and no flank tenderness elicited, suprapubic cath in place Neuro: gross neurological deficit Behavior: Appropriate and cooperative Extremities: trace pedal edema, having left foot swelling due to fracture and bruise prominent on the planter and dorsal surface, peripheral pulses palpable, Skin: pallor +luis, decreased capillary refill Urinary Catheter Management: Suprapubic: Cath Placed During This Visit: no Reason for Continuing Indwelling Catheter: Chronic Indwelling Urinary Catheter on Admission Data 10/04/24 00:59 10/04/24 00:59 Micro: Microbiology 09/30/24 13:03 Blood Culture - Preliminary Blood A&P Assessment and plan 1. Sepsis: 2. UTI (urinary tract infection): 3. TUNG (acute kidney injury): 4. Foot fracture, left: 5. Weight loss: 6. Prostate cancer metastatic to bone: 7. Acute deep vein thrombosis (DVT) of popliteal vein of left lower extremity: 8. Lower urinary tract symptoms (LUTS): 9. Dyslipidemia: 10. Type 2 diabetes mellitus without complication, without long-term current use of insulin: 11. Benign essential HTN: 12. Gastroesophageal reflux disease, unspecified whether esophagitis present: 13. Panlobular emphysema: 14. BPH with obstruction/lower urinary tract symptoms: 15. Frequent falls: 16. Anemia: Plan: Sepsis: likely secondary to UTI? sepsis resolved 2 sets of blood cultures prelim negative, urine cultures showed gram negative rods and Morganella morganii which was also seen his in his previous urine cultures sensitive to only gentamicin and amikacin continue gentamicin based on the culture sensitivity and as per pharmacist review Maintain MAP above 65 maintain suprapubic folleys cath care acute drop in hb ( anemia ): no obvious cause of bleeding stable hb above 7, prbc transfusion below 7 ct abd pelvis with contrast with high risk consent did not show any acute bleeding keep standy PRBC patient vitals are stable, no tachycardia or any drop in bp, however have orthostatics, keep adequate hydration restart aspirin and apixaban and monitor Folate deficiency: Continue on folate replacement Dietitian consult for diet recommendations Hypokalemia: resolved 2.8 and replaced provided cont to monitor Left foot fracture: podiatry consulted and not for surgical intervention wt bearing boots rehab and OT/PT Diabetes mellitus: Insulin sliding scale Hypertension: hold anti HTN metoprolol at 12.5mg bdaily Frequent falls: had positive orthostatics OT PT Fall precaution COPD: DuoNebs Q6 hourly BPH with LUTS: monitor folleys cath care, changed day before the admission in urology clinic Monitor intake output TUNG: resolving Adequate hydration to continue Maintain renal functions and electrolytes with correction accordingly Anemia: anemia work up mixed picture iron deficiency and anemia of chronic disease picture Folate deficiency identified and to correct accordingly Monitor CBC and keep hemoglobin above 7 GERD: PPI daily since no active source of bleeding found Maalox as needed DVT: Patient on apixaban, since hb is stable and no obvious source Hold SCDs since the patient has history of left lower extremity DVT Diet: Cardiac diet Disposition: UTi having resistant organism on IV abx and to have proper disposition before discharge with abx course PDMP PDMP Reviewed: Not Reviewed Attestations Medical Necessity Statement*: Charlie Jacobs's hospital stay will require greater than 2 midnights for management of sepsis likely secondary to UTI with resistant ogranism needing IV abx Time Spent in Patient Care: 16 - 35 minutes (>than 50% of time spent in counselling and/or direct pt care on unit). Other Attestations: Patient condition has been discussed at length with the patient/family, I have independently reviewed the chart labs imaging and diagnostics and EKG. the goals of care and code status with the patient/family/NOK/legal entry level sales representative, and documented accordingly. The patient/family has been informed about the current condition and further plan of care. Agreed with the plan of care and understood without any language barrier. This documentation was created by [employer] pathology transcriptionist software. Every effort was made to ensure accuracy of pathology transcriptionist. Any obvious errors or omissions should be clarified with the author of the document. Coding Level of Care Code 14252 Diagnoses Sepsis A41.9 UTI (urinary tract infection) N39.0 TUNG (acute kidney injury) N17.9 Foot fracture, left S92.902A Weight loss R63.4 Prostate cancer metastatic to bone C61; C79.51 Acute deep vein thrombosis (DVT) of popliteal vein of left lower extremity I82.432 Affected thrombotic vein of extremity: popliteal Chronicity: acute Lower urinary tract symptoms (LUTS) R39.9 Dyslipidemia E78.5 Type 2 diabetes mellitus without complication, without long-term current use of insulin E11.9 Diabetes mellitus complication status: without complication Benign essential HTN I10 Gastroesophageal reflux disease, unspecified whether esophagitis present K21.9 Esophagitis presence: esophagitis presence not specified Panlobular emphysema J43.1 COPD type: emphysema Emphysema type: panlobular BPH with obstruction/lower urinary tract symptoms N40.1; N13.8 Frequent falls R29.6 Anemia D64.9
--- NOTE | 2024-10-04 15:17 | PC.OT ---
OT treatment session attempted with pt declining services. Pt has no concerns at this time. Will attempt treatment again at a later time.
[2024-10-04 21:35] LABS: Gentamicin Trough 1.3 ug/mL (0.0-8.0)
[2024-10-05] VITALS (7 sets, daily range): BP systolic 97–132; BP diastolic 57–80; PULSE 80–95; RESP 16–19; TEMP 36.4–36.6; O2SAT 92–98
[2024-10-05] MEDS: GENTAMICIN IV (03:00)
[2024-10-05] MEDS: SODIUM CHLORIDE 0.9% IV (03:00)
[2024-10-05] MEDS: fluticasone nasal spray 16gm Btl 1 SPRAY NASAL ×2 (04:00→08:55)
[2024-10-05 05:13] LABS: Hematocrit 27.1 % (37-53); Hemoglobin 8.70 g/dL (11.27-16.99); Mean Corpuscular HGB Conc 32.1 g/dL (30-55); Mean Corpuscular Hemoglobin 31.5 pg (27-33); Mean Corpuscular Volume 98.2 fl (82-101); Nucleated Red Blood Cells % 0 %; Platelet Count 226 10^3/cmm (157-399); Red Blood Count 2.76 10^6/uL (3.85-5.65); White Blood Count 3.21 10^3/uL (3.29-11.43)
[2024-10-05 05:35] LABS: Alanine Aminotransferase < 5 U/L (0-41); Albumin Level 2.7 g/dL (3.5-5.2); Alkaline Phosphatase 78 U/L (40-130); Anion Gap 12.7 (5-19); Aspartate Amino Transferase 10 U/L (0-40); Blood Urea Nitrogen 11 mg/dL (8-23); Calcium 8.2 mg/dL (8.5-10.5); Carbon Dioxide 23 mmol/L (22-29); Chloride 106 mmol/L (98-107); Creatinine Clr Calc Pharmacy 78.5450; Globulin 3.4 g/dL (1.3-4.6); Glucose 122 mg/dL (65-115); Osmolality Calculated 287 mOsm/kg (285-295); Potassium 3.7 mmol/L (3.5-5.1); Sodium 138 mmol/L (136-145); Total Protein 6.1 g/dL (6.6-8.7)
[2024-10-05] MEDS: pantoprazole 40 mg SDV IVP (08:54)
[2024-10-05] MEDS: ENZALUTAMIDE 80 MG 80 EACH PO (08:56)
[2024-10-05] MEDS: carBAMazepine XR (12 HR) 100 mg Tablet PO (09:00)
--- NOTE | 2024-10-05 09:54 | PC.SOCIAL ---
IMM Update pg 2 of IMM Updated and reviewed w/ patient. Copy provided and copy dated, initialed and placed in chart.
--- NOTE | 2024-10-05 12:34 | PM.DCS ---
Discharge Providers Date of Admission: 09/30/24 14:59 Date of Discharge: October 05, 2024 Attending Provider at Admission: Valdez Mcclendon MD Attending Provider at Discharge: Susie Torres MD Consults: Dr. Byers with podiatry Primary Care Provider: Joann Knowles DO Diagnoses at Discharge Discharge Diagnosis 1. Frequent falls: Details from hospital stay: Multifactorial from acute kidney injury, orthostatic hypotension, suspected multisensory deficits and acute infection urinary plus general deconditioning. Was evaluated by therapy and recommendation was for outpatient therapy particularly in light of diagnoses #4 2. Urinary tract infection associated with cystostomy catheter, initial encounter: Details from hospital stay: Organism identified as Morganella morganii with greater than 100,000 CFU's. Symptoms included increased falls, evidence of volume depletion and acute kidney injury along with some reports of dizziness, nausea and vomiting and low-grade fever. Urinalysis showed positive leukocyte esterase and nitrites with greater than 100 red and white blood cells per high-powered field with few epithelial cells. Treated empirically as if acute infection. Sensitivities showed gentamicin and amikacin only options. Will be treated with a 7-day course of gentamicin in the outpatient setting. The catheter was recently changed at the clinic per discussion with . He has had Morganella morganii in several cultures from 2023 so colonization with this organism is not out of the equation but reasonable to treat at this time. He does follow with urology regularly in [place] and should continue this. 3. TUNG (acute kidney injury): Details from hospital stay: Creatinine double baseline at 2.0 at presentation. [place] to be prerenal given identified orthostasis. Complicated by chronic catheter and known prostatic hypertrophy/prostatic cancer history. Resolved to baseline. 4. Closed fracture of left foot, initial encounter: Details from hospital stay: Multiple fractures of the left foot including third metatarsal, fourth metatarsal, intermediate cuneiform and lateral cuneiform. Was seen by podiatry during hospital stay and a cam boot was put on with plan for outpatient podiatry follow-up. In addition will have outpatient therapy. 5. Sepsis: Details from hospital stay: Suspected diagnosis at admission given presentation with increased falls and acute kidney injury. Had evidence of orthostatic hypotension. Not tachycardic. Normal white count. Normal lactic acid. Suspected source of infection was urinary. Urine cultures did grow organism Morganella morganii. Blood culture grew 1 of 4 bottles with anaerobic gram-positive rods suspected to be contamination. Patient was managed as for SEP 1 criteria and did not progress to sepsis/severe sepsis by SEP 3 criteria. 6. Chronic deep vein thrombosis (DVT) of popliteal vein of left lower extremity: Details from hospital stay: Chronically on Eliquis. Resuming at discharge. Will need to monitor anemia. 7. Type 2 diabetes mellitus without complication, without long-term current use of insulin: Details from hospital stay: Chronically on Januvia which we will continue. 8. Benign essential HTN: Details from hospital stay: Chronically on metoprolol which we will continue. 9. Dyslipidemia: Details from hospital stay: Chronically on rosuvastatin. Continuing. 10. Other iron deficiency anemia: Details from hospital stay: Secondary to anemia of chronic disease. On iron replacement. Also on folate replacement. 11. Panlobular emphysema: Details from hospital stay: Has DuoNebs and chronic prednisone plus oxygen therapy all of which we will resume at discharge. Not acute during hospital stay. 12. Gastroesophageal reflux disease without esophagitis: Details from hospital stay: Chronically on famotidine. Has as needed metoclopramide and ondansetron for intermittent nausea and vomiting. 13. Prostate cancer metastatic to bone: Details from hospital stay: On Xtandi and follows with oncology/urology 14. BPH with obstruction/lower urinary tract symptoms: Details from hospital stay: Chronically on tamsulosin which I have held given orthostatic hypotension and recurrent syncope particularly in light of having a chronic catheter. 15. Postoperative hypothyroidism: Details from hospital stay: History of papillary thyroid carcinoma status post thyroidectomy with subsequent hypothyroidism, on chronic levothyroxine. 16. Weight loss: 17. Chronic suprapubic catheter: Reason for Visit Reason for Visit: fall- Brief History: Charlie Jacobs is a 79 year old male with past medical history of multiple comorbidities, history of prostate cancer, BPH with obstructive urinary stricture, COPD, GERD, insomnia, hypertension, diabetes, dyslipidemia, metastatic prostate cancer, history of DVT, papillary thyroid carcinoma presented to the er with complaints of multiple falls he hit his head on a second fall. Evidently fell outside was outside for 15 minutes before EMS was called. Normally wears 2 L by nasal cannula. Patient has some cognitive deficits so still difficult time with answering questions due to hearing difficulties. He has some gait and balance difficulties he is fallen multiple times recently and on the 18 of this month 4 days ago had a fall resulting in an Nondisplaced fractures of the 3rd and 4th metatarsals and second third cuneiform bones. as per the patient and his who has been taking care of him further informed that the gait imbalance has been there since few weeks to a month or so. he gets more dizzy on turning his head to the left side. recently his urine catheter was changed yesterday ( he has suprapubic catheter placed due to h/o LUTS and obstructed symptoms) and he was having suprapubic pain after it. but later after adjustment by the urologist it was somehow better. he had one episode of fever today and mild nausea and vomiting. no chest pain, sob, cold sweating or any recent focal neurological deficit. Hospital Course Hospital Course Patient was admitted to a medical bed. He was treated empirically for possible sepsis related to urinary tract infection. He did not develop sepsis per SEP3 criteria but did have acute kidney injury. He was noted to be orthostatic at presentation. Also dizzy contributing to the recurrent falls among metabolic abnormalities. Urine culture grew out Morganella morganii that was only sensitive to gentamicin and amikacin. Arranges were made for continuation of gentamicin in the outpatient setting for total course of 7 to 10 days able to be administered via every 48 hour dosing. With antibiotics and IV hydration patient improved. He was noted to have a drop in hemoglobin but no evidence of gross bleeding. Anticoagulation which she is chronically on was continued. Hemoglobin will need to be followed in the outpatient setting. He had some transient hypokalemia that was replaced. Blood pressure medications were initially held and subsequently resumed. As a result of his falls prior to admission he was found to have multiple fractures in his left foot. He was seen by podiatry and placed in a cam boot. He will follow-up with podiatry as well as outpatient therapy. His will continue to be his primary caregiver. Both patient and his were given opportunity to ask questions and review his usual medications. I did hold tamsulosin given the orthostasis and increasing falls post dizziness but other home medicines are resuming. On the day of discharge he was in stable condition. Continues to have high risk of falls given cam boot and what I suspect is multisensory deficits related to advancing age and comorbidities. is comfortable with discharge planning and arrangements have been made for outpatient care. Physical Exam Urinary Catheter Management: Suprapubic: Cath Placed During This Visit: no Reason for Continuing Indwelling Catheter: Chronic Indwelling Urinary Catheter on Admission Discharge Data Studies Completed and Pending Completed Studies During Hospitalization Category Date Time Status CT abdomen pelvis w con* [id number] Stat Cat Scan 10/01/24 12:[address] abdomen pelvis wo con [id number] Stat Cat Scan 09/30/24 14:[address] cervical spin wo con* [id number] Stat Cat Scan 09/30/24 12:[address] head wo con* [id number] Stat Cat Scan 09/30/24 12:52 Completed CXRP [XR chest 1V portable [id number]] Routine Exams 10/01/24 12:30 Completed XR knee LT 3V* [id number] Stat Exams 09/30/24 12:59 Completed XR knee RT 3V* [id number] Stat Exams 09/30/24 12:59 Completed Pending at discharge Category Date Time Status Blood Culture Stat Lab 09/30/24 13:03 Results Radiology Impressions Cervical Spine CT 09/30/24 12:51 IMPRESSION: 1. No acute cervical spine fracture. 2. Multilevel advanced facet joint arthropathy resulting in stenoses. Most significant stenosis from C2-3 through C4-5. 3. Prior thyroidectomy. 4. Osteoblastic changes in T1 and T2. Metastatic prostate cancer. Head CT 09/30/24 12:52 IMPRESSION: 1. No acute intracranial hemorrhage or edema. 2. Mild cerebral and cerebellar atrophy and small vessel disease. Stable since 01/20/2024. Knee X-Ray 09/30/24 12:59 IMPRESSION: Status post right knee arthroplasty without complication. Abdomen/Pelvis CT 10/01/24 12:01 IMPRESSION: 1. Redemonstrated 4 mm stone in the left mid ureter with mild upstream hydroureteronephrosis. 2. Scattered fluid-filled non pathologically dilated loops of small bowel with mild wall thickening which may be seen in the setting of small bowel enteritis. 3. Redemonstrated innumerable osteoblastic lesions throughout the thoracolumbar spine. Findings are suspicious for metastatic disease. 4. Indeterminate hypodense lesions in the liver as detailed above not well identified on prior examination. Recommend correlation with clinical and oncologic history as well as further evaluation with MRI as clinically indicated. 5. Other chronic findings as detailed in the body of the report. COMMENTS: Consistent with the [employer]'s Incidental Findings Committee white paper (J Am Manjinder Radiol 2018): Any incidental renal lesion less than 1 cm or classified as too small to characterize, or any incidental cystic renal lesion characterized as simple-appearing, is likely benign. No follow-up imaging is recommended for these lesions per consensus recommendations based on imaging criteria. Chest X-Ray 10/01/24 12:30 IMPRESSION: No acute cardiopulmonary abnormality. Laboratory Results WBC 3.21 10^3/uL (3.29-11.43) L 10/05/24 04:48 RBC 2.76 10^6/uL (3.85-5.65) L 10/05/24 04:48 Hgb 8.70 g/dL (11.27-16.99) L 10/05/24 04:48 Hct 27.1 % (37-53) L 10/05/24 04:48 MCV 98.2 fl (82-101) 10/05/24 04:48 MCH 31.5 pg (27-33) 10/05/24 04:48 MCHC 32.1 g/dL (30-55) 10/05/24 04:48 RDW 14.5 % (12.1-15.1) 10/05/24 04:48 Plt Count 226 10^3/cmm (157-399) 10/05/24 04:48 MPV 10.7 fL (7.4-10.4) H 10/05/24 04:48 Neut % (Auto) 64.0 % 10/05/24 04:48 Lymph % (Auto) 19.6 % 10/05/24 04:48 [place] % (Auto) 14.3 % 10/05/24 04:48 Eos % (Auto) 1.2 % 10/05/24 04:48 Baso % (Auto) 0.6 % 10/05/24 04:48 Neut # (Auto) 2.05 10^3/uL (1.8-7.7) 10/05/24 04:48 Lymph # (Auto) 0.6 10^3/uL (0.8-4.8) L 10/05/24 04:48 [place] # (Auto) 0.5 10^3/uL (0.2-0.9) 10/05/24 04:48 Eos # (Auto) 0.0 10^3/uL (0.0-0.8) 10/05/24 04:48 Baso # (Auto) 0.0 10^3/uL (0.0-0.1) 10/05/24 04:48 Nucleated RBC % (auto) 0 % 10/05/24 04:48 Nucleated RBCs # 0.0 /100WBC 10/05/24 04:48 PT 19.30 SECONDS (12.1-14.9) H 09/30/24 13:03 INR 1.52 (0.8-1.2) H 09/30/24 13:03 Sodium 138 mmol/L (136-145) 10/05/24 04:48 Potassium 3.7 mmol/L (3.5-5.1) 10/05/24 04:48 Chloride 106 mmol/L (98-107) 10/05/24 04:48 Carbon Dioxide 23 mmol/L (22-29) 10/05/24 04:48 Anion Gap 12.7 (5-19) 10/05/24 04:48 BUN 11 mg/dL (8-23) 10/05/24 04:48 Creatinine 0.9 mg/dL (0.7-1.2) 10/05/24 04:48 GFR Calculation Not Reportable 10/05/24 04:48 Glucose 122 mg/dL (65-115) H 10/05/24 04:48 POC Glucose 115 mg/dL (70-110) H 10/05/24 11:05 Calculated Osmolality 287 mOsm/kg (285-295) 10/05/24 04:48 Lactic Acid 1.0 mmol/L (0.5-2.2) 10/01/24 03:35 Lactic Acid (Sepsis) 1.1 mmol/L (0.5-2.2) 09/30/24 17:45 Lactate 2.1 mmol/L (0.5-2.2) 10/02/24 17:10 Calcium 8.2 mg/dL (8.5-10.5) L 10/05/24 04:48 Phosphorus 1.6 mg/dL (2.5-4.5) L 09/30/24 13:03 Magnesium 1.4 mg/dL (1.7-2.3) L 09/30/24 13:03 Iron 31 ug/dL (59-158) L 10/02/24 17:10 TIBC 224 mcg/dl 10/02/24 17:10 % Saturation 13.8 % (20-50) L 10/02/24 17:10 Unsat Iron Binding 193 ug/dL (112-347) 10/02/24 17:10 Ferritin 194 ng/mL (30-400) 10/02/24 17:10 Total Bilirubin 0.5 mg/dL (0.15-1.2) 10/05/24 04:48 AST 10 U/L (0-40) 10/05/24 04:48 ALT < 5 U/L (0-41) 10/05/24 04:48 Alkaline Phosphatase 78 U/L (40-130) 10/05/24 04:48 C-React Prot High Sens 10.350 mg/dL (0.0-0.3) H 10/01/24 03:35 Total Protein 6.1 g/dL (6.6-8.7) L 10/05/24 04:48 Albumin 2.7 g/dL (3.5-5.2) L 10/05/24 04:48 Globulin 3.4 g/dL (1.3-4.6) 10/05/24 04:48 Lipase 7 U/L (13-60) L 09/30/24 13:03 Vitamin B12 336 pg/mL (232-1245) 10/02/24 17:10 Folate 3.8 ng/mL (4.5-32.2) L 10/02/24 17:10 Procalcitonin 4.50 ng/mL (0-0.5) H 09/30/24 13:03 TSH 2.23 uIU/mL (0.27-4.20) 09/30/24 13:03 Urine Color Dark yellow (Yellow) A 09/30/24 13:03 Urine Appearance Turbid (CLEAR) A 09/30/24 13:03 Urine pH 5.5 (5-7) 09/30/24 13:03 Ur Specific [place] 1.025 (1.005-1.030) 09/30/24 13:03 Urine Protein 3+ (Negative) A 09/30/24 13:03 Urine Glucose (UA) Negative (Normal) 09/30/24 13:03 Urine Ketones Trace (Negative) 09/30/24 13:03 Urine Blood 3+ (Negative) A 09/30/24 13:03 Urine Nitrate Positive (Negative) A 09/30/24 13:03 Urine Bilirubin Negative (Negative) 09/30/24 13:03 Urine Urobilinogen 1.0 mg/dL (Negative) 09/30/24 13:03 Ur Leukocyte Esterase 2+ (Negative) A 09/30/24 13:03 Urine RBC >100 /hpf (0-2) H 09/30/24 13:03 Urine WBC >100 /hpf (0-5) H 09/30/24 13:03 Ur Squamous Epith Cells 0-5 /hpf (0-5) 09/30/24 13:03 Calcium Oxalate Crystal 0-4 /hpf H 09/30/24 13:03 Amorphous Sediment Not Reportable 09/30/24 13:03 Urine Bacteria 1+ /hpf (NONE) H 09/30/24 13:03 Hyaline Casts 66.03 /lpf 09/30/24 13:03 Coarse Granular Casts 5-10 /lpf H 09/30/24 13:03 Gentamicin Trough 1.3 ug/mL (0.0-8.0) 10/04/24 21:02 Vitals Last Vital Signs Temp 97.5 F L 10/05/24 11:13 Pulse 94 10/05/24 11:13 Resp 19 H 10/05/24 11:13 BP 128/62 10/05/24 11:13 Pulse Ox 98 10/05/24 11:13 O2 Del Method Room Air 10/05/24 11:13 O2 Flow Rate 2 10/04/24 07:55 Discharge Plan Discharge Patient Disposition: Home Condition: Stable Prescriptions: New gentamicin in NaCl (iso-osm) 100 mg/50 mL piggyback 420 mg IV Q48H Rx Instructions: planned dosing, may be adjusted based on levels. ordered for outpatient infusion administration with orders in acute hold queue at [facility] folic acid 1 mg Tablet 1 mg PO BID Qty: 30 1RF ferrous sulfate 325 mg (65 mg iron) tablet 325 mg PO BID Qty: 60 1RF Continued aspirin 81 mg tablet,delayed release (DR/EC) 81 mg PO DAILY (DME) nebulizer with tubing See Rx Instructions .Route .MEDSUPPLY Qty: 1 0RF Rx Instructions: As directed ipratropium-albuterol 0.5 mg-3 mg(2.5 mg base)/3 mL solution for nebulization 3 ml inhalation Q6H PRN (Reason: wheezing) Qty: 90 0RF docusate sodium 100 mg capsule 100 mg PO DAILY PRN (Reason: constipation) Qty: 60 0RF lorazepam 1 mg tablet 1 mg PO DAILY PRN (Reason: Anxiety) triamcinolone acetonide 55 mcg aerosol,spray 2 spray intranasal DAILY Rx Instructions: administer into each nostril montelukast 10 mg tablet 10 mg PO DAILY Qty: 90 1RF Januvia 100 mg tablet 100 mg PO QAM Qty: 90 1RF trazodone 100 mg tablet 100 mg PO QPM Qty: 90 1RF Eliquis 5 mg tablet 5 mg PO BID Qty: 90 1RF (DME) Walker See Rx Instructions .ROUTE .MEDSUPPLY Qty: 1 0RF Rx Instructions: As directed PreserVision AREDS 2 Plus MV 200 mcg-15 mcg- 5 mg-1 mg capsule 1 cap PO DAILY Trelegy Ellipta 100-62.5-25 mcg blister with device 1 ea INHALATION DAILY Qty: 60 5RF cholecalciferol (vitamin D3) 50 mcg (2,000 unit) capsule 50 mcg PO DAILY Qty: 90 1RF rosuvastatin 40 mg tablet 40 mg PO BEDTIME Qty: 90 1RF levothyroxine 175 mcg tablet See Rx Instructions .ROUTE .COMPLEX Qty: 90 1RF Dose Instruction: TAKE 1 TABLET BY MOUTH EVERY DAY thursday through thursday. take 1/2 tablet BY MOUTH ON thursday, SKIP thursday Rx Instructions: TAKE 1 TABLET BY MOUTH EVERY DAY thursday through thursday. Skip thursday, and thursday carbamazepine 100 mg tablet extended release 12 hr See Rx Instructions .ROUTE .COMPLEX Qty: 60 3RF Dose Instruction: TAKE 1 TABLET BY MOUTH TWICE DAILY Rx Instructions: TAKE 1 TABLET BY MOUTH TWICE DAILY prednisone 5 mg tablet 5 mg PO BID Qty: 60 0RF morphine 30 mg tablet 30 mg PO Q6H PRN (Reason: pain) 22 Days Qty: 90 0RF Xtandi 80 mg tablet 80 mg PO DAILY Qty: 30 0RF ondansetron HCl 8 mg tablet 8 mg PO Q8H PRN (Reason: Nausea And Vomiting) Qty: 60 0RF (DME) catheter bags See Rx Instructions .Route .MEDSUPPLY Qty: 4 5RF Rx Instructions: As directed polyethylene glycol 3350 [Miralax] 17 gram powder in packet 17 g PO DAILY Qty: 30 0RF loratadine [Claritin] 10 mg Tablet 10 mg PO QPM acetaminophen [Tylenol Extra Strength] 500 mg Tablet 500 mg PO BEDTIME PRN (Reason: Fever Or Pain) Probiotic 20 billion cell Capsule 20,000 mmu cells PO DAILY Rx Instructions: administer with a meal glycerin (adult) Suppository 1 supp HI DAILY PRN (Reason: constipation) Qty: 12 0RF metoprolol succinate 25 mg tablet extended release 24 hr 12.5 mg PO QAM famotidine [Pepcid] 40 mg tablet 40 mg PO BID metoclopramide HCl [Reglan] 5 mg tablet 5 mg PO TID Discontinued tamsulosin 0.4 mg capsule 0.4 mg PO QPM Qty: 90 1RF [place] OK for DC: Podiatry Discharge Order = DC NOW: Discharge Order (Routine); Ordered 10/05/24 Ordered By: Susie Torres Other Ambulatory Orders: DME: Walker (Order) Location: None Selected Ordered By: Valdez Mcclendon Physical Therapy Eval and Treat Outpatient (Order) Timeframe: 1 Day Facility: [facility] - Location: Physical Therapy [place] Ordered By: Valdez Mcclendon Referrals: outpatient infusion [Other] - 10/07/24 7:30 am Referral Note: Needs apts on 10/07, 10/09, 10/11. Orders for 10/07 in Acute Hold Queue. Will place orders for other dates after labs are back on 10/07. Please call to confirm your appointment for 10/07/24 tomorrow. Physical Therapy - [facility] [Provider Group] Referral Note: This is to start OP therapy if you are unable to keep this appointment for some reason please call and reschedule or cancel. Alex Byers DPM [Physician, Podiatry] - 10/12/24 11:30 am Joann Knowles DO [Primary Care Provider, Family Practice] - 10/14/24 11:15 am Patient Instructions: Gentamicin (By injection), Urinary Tract Infection in Men (GEN), Opioid Safety, Patient Portal & [place] Instructions Activity Restrictions/Additional Instructions: You presented to the emergency room after some dizziness and falls at home. Also had a bit of alteration in mental status. As a result of the fall you sustained some fractures to your left foot. You were seen by Dr. Byers with podiatry and a cam boot was placed. You will follow-up with podiatry for continued management. You also hit your head when you fell but no specific injury related to that of concern was identified. Workup showed evidence of acute kidney injury with creatinine as high as 2 along with elevation in BUN. You had multiple electrolyte abnormalities including low potassium low magnesium and low phosphorus. All of these were addressed. While you did have an elevation in CRP lactic acid is normal as well as white blood count. Urinalysis however was abnormal revealing greater than 100 white blood cells and red blood cells with 2+ leukocyte esterase and nitrites positive along with 0-5 squamous epithelial cells. Review of prior cultures indicated that you have had positive urine cultures for some time including organism that was ultimately identified here called Morganella Morgagni. Culture results showed greater than 100,000 CFU's. With the dizziness and alteration of mental status changes along with multiple laboratory abnormalities concern is for an acute infection rather than colonization. You were empirically treated with fluids and IV antibiotics and clinically improved. Sensitivities showed resistance to everything except for gentamicin and amikacin. Antibiotic coverage was changed to gentamicin in the hospital and plan will be for a 7-day course at this time. As we reviewed it can be challenging to determine if abnormalities in urine in somebody with a chronic suprapubic catheter are due to acute infection or from colonization. In this instance with abnormalities seen at admission we are empirically covering as if an acute infection. The antibiotic we are using does have potential for kidney toxicity. Your renal function was back to normal with BUN and creatinine at 11/0.9 prior to discharge. Potassium was 3.7. Vital signs were stable. You were noted to have anemia and had low folate and a low iron level. Supplements were written for. He will need to keep follow-up at oncology, with Dr. Knowles, with Dr. Byers (podiatry), as well as with physical therapy. Utilize walker as directed for safety in the setting of the fractures in your foot. Be careful with position changes. Discharge Attestations Time Spent in Discharge Care*: greater than 30 min Specific Discharge Activities: educating patient, educating and/or supporting family/caregiver, discussing with business case analyst/social workers/dc planners, documenting/other paperwork and evaluating patient/reviewing data Quality Metrics Clinical Quality Measures [ No reported AMI, CVA or VTE this stay] Coding Level of Care Code 18271 Diagnoses Frequent falls R29.6 Urinary tract infection associated with cystostomy catheter, initial encounter T83.510A; N39.0 Urinary tract infection type: catheter-associated UTI Indwelling urinary catheter type: cystostomy catheter Encounter type: initial encounter TUNG (acute kidney injury) N17.9 Closed fracture of left foot, initial encounter S92.902A Encounter type: initial encounter Fracture type: closed Sepsis A41.9 Chronic deep vein thrombosis (DVT) of popliteal vein of left lower extremity I82.532 Affected thrombotic vein of extremity: popliteal Chronicity: chronic Type 2 diabetes mellitus without complication, without long-term current use of insulin E11.9 Diabetes mellitus complication status: without complication Benign essential HTN I10 Dyslipidemia E78.5 Other iron deficiency anemia D50.8 Anemia type: iron deficiency Iron deficiency anemia type: other iron deficiency Panlobular emphysema J43.1 COPD type: emphysema Emphysema type: panlobular Gastroesophageal reflux disease without esophagitis K21.9 Esophagitis presence: without esophagitis Prostate cancer metastatic to bone C61; C79.51 BPH with obstruction/lower urinary tract symptoms N40.1; N13.8 Postoperative hypothyroidism E89.0 Hypothyroidism type: postoperative Weight loss R63.4 Chronic suprapubic catheter Z93.59
--- NOTE | 2024-10-05 16:55 | PC.NURSE ---
Discussed medications, follow up appointments and infusion date with patient for gentamicin infusion. Explained to spouse about calling 10/06/2024 to confirm the outpatient infusion appointment. Patients home medications were sent home with patient. Spouse and patient verbalized understanding. Patient wheeled down in wheelchair after helping dress and getting boot on.
--- NOTE | 2024-10-05 16:58 | PC.NURSE ---
Discharged patient at 1621 and out the door at 1634. Discharge late due to an ER admit and a sugery back from surgery all at one time.
== END 2024-10-05 16:34 | disposition home or self-care (01) | DRG 699 ==
LOC: ER 14:39 → MEDSURG 15:36 → ICU 10-01 13:30 → CSU 10-03 15:09 → MEDSURG 10-04 00:38
PROVIDERS: Admitting Provider Student in an Organized Health Care Education/Training Program; Emergency Provider Family Medicine; PCP Family Medicine; Visit Provider Hospitalist
DX: T83.510A Infection and inflammatory reaction due to cystostomy catheter, initial encounter (principal); C79.51 Secondary malignant neoplasm of bone; E87.20 Acidosis, unspecified; I82.532 Chronic embolism and thrombosis of left popliteal vein; N17.9 Acute kidney failure, unspecified; N39.0 Urinary tract infection, site not specified; Y73.8 Miscellaneous gastroenterology and urology devices associated with adverse incidents, not elsewhere classified; B96.4 Proteus (mirabilis) (morganii) as the cause of diseases classified elsewhere; R29.6 Repeated falls; I95.1 Orthostatic hypotension; E86.0 Dehydration; S92.335A Nondisplaced fracture of third metatarsal bone, left foot, initial encounter for closed fracture; S92.345A Nondisplaced fracture of fourth metatarsal bone, left foot, initial encounter for closed fracture; S92.235A Nondisplaced fracture of intermediate cuneiform of left foot, initial encounter for closed fracture; S92.225A Nondisplaced fracture of lateral cuneiform of left foot, initial encounter for closed fracture; W18.30XA Fall on same level, unspecified, initial encounter; E11.9 Type 2 diabetes mellitus without complications; I10 Essential (primary) hypertension; E78.5 Hyperlipidemia, unspecified; D50.8 Other iron deficiency anemias; J43.1 Panlobular emphysema; K21.9 Gastro-esophageal reflux disease without esophagitis; H91.90 Unspecified hearing loss, unspecified ear; E87.6 Hypokalemia; E89.0 Postprocedural hypothyroidism; N40.1 Benign prostatic hyperplasia with lower urinary tract symptoms; C61 Malignant neoplasm of prostate; Z99.81 Dependence on supplemental oxygen; Z79.01 Long term (current) use of anticoagulants; Z79.60 Long term (current) use of unspecified immunomodulators and immunosuppressants; Z79.51 Long term (current) use of inhaled steroids; Z79.891 Long term (current) use of opiate analgesic; Z79.82 Long term (current) use of aspirin; Z90.79 Acquired absence of other genital organ(s); Z98.1 Arthrodesis status; Z85.850 Personal history of malignant neoplasm of thyroid
CPT/HCPCS: 36415; 36416; 70450; 71045; 72125; 73562; 74176; 74177; 80048; 80053; 80170; 81001; 82607; 82728; 82746; 82962; 83540; 83550; 83605; 83690; 83735; 84100; 84145; 84443; 85025; 85610; 86141; 87040; 87077; 87086; 87150; 87186; 87205; 94640; 96372; 96374; 96375; 97116; 97161; 97166; 97530; 97760; 99285; J0696; J1580; J1644; J1815; J2270; J2405; J2470; J2543; J3475; J3480; J7030; J7120; J7512; J9999; L4361

== ENCOUNTER 2024-10-09 10:12 | Oncology outpatient (recurring) (ONCR) | payer OTHER, MEDICAID, SELFPAY ==
[2024-10-07 08:21] LABS: Anion Gap 19.8 (5-19); Blood Urea Nitrogen 20 mg/dL (8-23); Calcium 9.2 mg/dL (8.5-10.5); Carbon Dioxide 19 mmol/L (22-29); Chloride 103 mmol/L (98-107); Creatinine Clr Calc Pharmacy 63.2247; Glucose 133 mg/dL (65-115); Osmolality Calculated 291 mOsm/kg (285-295); Potassium 3.8 mmol/L (3.5-5.1); Sodium 138 mmol/L (136-145)
[2024-10-07 08:24] VITALS: BP 105/73; PULSE 97; RESP 18; TEMP 36.7; O2SAT 97
--- NOTE | 2024-10-07 08:28 | PC.PHAR ---
gent level 0.6 (within approp limits). willl admin 420mg gentamicin today x 1.
[2024-10-07] MEDS: SODIUM CHLORIDE 0.9% IV (08:48)
[2024-10-07] MEDS: GENTAMICIN IV (08:48)
--- NOTE | 2024-10-07 09:28 | PC.PHAR ---
Gentamicin orders per Dr. Torres: Patient given 420mg IV gentamicin on 10/07/24. Patient to return to outpatient services on 10/09/24 at 0900. random gent level to be drawn at that time. if level is <1, please administer 420mg IVPB gentamicin x 1 Patient to return to infusion services on Thursday10/11/24 for follow up level and possible gent administration.
[2024-10-07 10:09] VITALS: BP 106/71; PULSE 95; RESP 17; TEMP 36.6; O2SAT 96
[2024-10-09 09:35] LABS: Anion Gap 19.8 (5-19); Blood Urea Nitrogen 15 mg/dL (8-23); Calcium 9.0 mg/dL (8.5-10.5); Carbon Dioxide 22 mmol/L (22-29); Chloride 98 mmol/L (98-107); Creatinine Clr Calc Pharmacy 69.5471; Glucose 143 mg/dL (65-115); Osmolality Calculated 285 mOsm/kg (285-295); Potassium 3.8 mmol/L (3.5-5.1); Sodium 136 mmol/L (136-145)
[2024-10-09] MEDS: SODIUM CHLORIDE 0.9% IV (10:00)
[2024-10-09] MEDS: GENTAMICIN IV (10:00)
[2024-10-09 10:09] VITALS: BP 108/70; PULSE 86; RESP 18; TEMP 36.7; O2SAT 95
== END 2024-10-09 23:59 | disposition home or self-care (01) ==
LOC: ONCMED 10:12 → OPS 10-10 00:01
PROVIDERS: Hospitalist; PCP Family Medicine; Visit Provider Internal Medicine Medical Oncology
DX: N39.0 Urinary tract infection, site not specified; Z53.9 Procedure and treatment not carried out, unspecified reason
CPT/HCPCS: 36415; 80048; 80170; 96365; J1580; J7050

== ENCOUNTER → 2024-10-12 10:38 | Outpatient (BNVA) | payer OTHER, MEDICAID, SELFPAY | PROVIDERS: PCP Family Medicine; Visit Provider Podiatrist Foot & Ankle Surgery | DX: S92.225A Nondisplaced fracture of lateral cuneiform of left foot, initial encounter for closed fracture (principal); S92.235A Nondisplaced fracture of intermediate cuneiform of left foot, initial encounter for closed fracture; S92.345A Nondisplaced fracture of fourth metatarsal bone, left foot, initial encounter for closed fracture; S92.335A Nondisplaced fracture of third metatarsal bone, left foot, initial encounter for closed fracture; E11.9 Type 2 diabetes mellitus without complications; X58.XXXA Exposure to other specified factors, initial encounter | CPT/HCPCS: 73630; 99213 ==

== ENCOUNTER → 2024-10-14 11:48 | Outpatient (BNVA) | payer OTHER, MEDICAID, SELFPAY | PROVIDERS: PCP Family Medicine; Visit Provider Family Medicine | DX: D50.8 Other iron deficiency anemias (principal) | CPT/HCPCS: 85025 ==

== ENCOUNTER 2024-10-18 07:42 | Oncology outpatient (recurring) (ONCR) | payer OTHER, MEDICAID, SELFPAY ==
--- NOTE | 2024-10-11 09:07 | PC.PHAR ---
Laboratory Tests 10/07/24 10/09/24 10/11/24 07:58 09:06 08:11 Random Gentamicin 0.6 L 0.8 L 0.8 L Gent within normal limits this morning. will proceed with 420mg IVPB today x1 as ordered by Dr. Torres.
[2024-10-11] MEDS: sodium chloride 0.9% (100 ml) 100 ML 30 ML (09:32)
[2024-10-11] MEDS: GENTAMICIN IV (09:35)
[2024-10-11] MEDS: SODIUM CHLORIDE 0.9% IV (09:35)
[2024-10-11 10:35] VITALS: BP 109/71; PULSE 73; RESP 17; TEMP 36; O2SAT 96
[2024-10-18 08:36] LABS: Hematocrit 30.3 % (37-53); Hemoglobin 9.70 g/dL (11.27-16.99); Mean Corpuscular HGB Conc 32.0 g/dL (30-55); Mean Corpuscular Hemoglobin 32.7 pg (27-33); Mean Corpuscular Volume 102.0 fl (82-101); Nucleated Red Blood Cells % 0 %; Platelet Count 211 10^3/cmm (157-399); Red Blood Count 2.97 10^6/uL (3.85-5.65); White Blood Count 4.26 10^3/uL (3.29-11.43)
[2024-10-18 09:05] LABS: Free T4 Free Thyroxine 1.01 ng/dL (0.82-1.77); Thyroid Stimulating Hormone 8.24 uIU/mL (0.27-4.20)
== END 2024-11-08 23:59 | disposition home or self-care (01) ==
PROVIDERS: Hospitalist; Internal Medicine; PCP Family Medicine; Visit Provider Internal Medicine Medical Oncology
DX: Z53.9 Procedure and treatment not carried out, unspecified reason; C61 Malignant neoplasm of prostate; C73 Malignant neoplasm of thyroid gland; C79.51 Secondary malignant neoplasm of bone; E89.0 Postprocedural hypothyroidism; R03.0 Elevated blood-pressure reading, without diagnosis of hypertension; Z92.3 Personal history of irradiation; Z87.891 Personal history of nicotine dependence; Z79.52 Long term (current) use of systemic steroids; Z79.899 Other long term (current) drug therapy
CPT/HCPCS: 36415; 80170; 84432; 84439; 84443; 85025; 86800; 99214; J1580

== ENCOUNTER 2024-10-19 08:32 | Outpatient (RCR) | payer OTHER, MEDICAID, SELFPAY | END 2024-11-08 23:59 | disposition home or self-care (01) | LOC: SPT 08:32 | PROVIDERS: PCP Family Medicine; Visit Provider Student in an Organized Health Care Education/Training Program | DX: S92.902D Unspecified fracture of left foot, subsequent encounter for fracture with routine healing (principal); X58.XXXD Exposure to other specified factors, subsequent encounter | CPT/HCPCS: 97161 ==

== ENCOUNTER → 2024-10-20 11:58 | Outpatient (BNVA) | payer OTHER, MEDICAID, SELFPAY | PROVIDERS: PCP Family Medicine; Visit Provider Family Medicine | DX: Z11.4 Encounter for screening for human immunodeficiency virus [HIV] (principal); E11.9 Type 2 diabetes mellitus without complications | CPT/HCPCS: 80061; 83036; 87389 ==

== ENCOUNTER → 2024-11-01 08:48 | Outpatient (BNVA) | payer OTHER, MEDICAID, SELFPAY | PROVIDERS: PCP Family Medicine; Visit Provider Podiatrist Foot & Ankle Surgery | DX: S92.225A Nondisplaced fracture of lateral cuneiform of left foot, initial encounter for closed fracture (principal); S92.235A Nondisplaced fracture of intermediate cuneiform of left foot, initial encounter for closed fracture; S92.345A Nondisplaced fracture of fourth metatarsal bone, left foot, initial encounter for closed fracture; S92.335A Nondisplaced fracture of third metatarsal bone, left foot, initial encounter for closed fracture; E11.8 Type 2 diabetes mellitus with unspecified complications; L30.9 Dermatitis, unspecified; X58.XXXA Exposure to other specified factors, initial encounter | CPT/HCPCS: 73630; 99213 ==

== ENCOUNTER 2024-11-03 21:27 | Emergency (ER) | payer OTHER, MEDICAID, SELFPAY ==
--- OUTSIDE RECORDS SUMMARY | 2024-10-27 05:00 | XMS_ITS ---
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 Name Role Phone Katelin WYATT, Jose Primary Care Provider Unavailab LYDIA Malave Unavailable [phone] JILLIAN MENDOZA Unavailable [phone] Allergies Allergen (clinical drug ingredient) Drug/Non Drug Allergy documented on EMR Reaction Allergy Type Onset Date Status vancomycin Vancomycin hives Drug Allergy Activ e REASON FOR VISIT 2 wk SPT change Medications Medication SIG (Take, Route, Frequency, Duration) Notes Start Date End Date Status Cetirizine HCl 10 MG 1 tablet Orally Onc e a day Not-Taking carBAMazepine ER 100 MG 1 tablet Orally Twice a day Not-Taking Zoladex 10.8 MG as directed Subcutaneous Not-Taking Alfuzosin HCl NotCrystal stanley Abiraterone Acetate 500 MG 2 tablets Orally Once a day Not-Taking Ondansetron HCl 4 MG 1 tablet Orally Onc e a day Not-Taking Mupirocin 2 % 1 application Externally Twice a day Not-Taking Promethazine HCl 6.25 MG/5ML 10 mL as needed Orally every 6 hrs Not-Taking Flonase Not-Taking Triamcinolone (oint)-Silicone Not-Taking Esomeprazole Magnesium 40 MG 1 capsule Orally Once a day Not-Taking predniSONE 5 MG 1 tablet Orally Once a day Not-Taking Albuterol Not-Taking Meclizine HCl Not-Sherif stanley levoFLOXacin 500 MG 1 tablet Orally Once a day Not-Taking glipiZIDE 2.5 MG 1 tablet 30 minutes before breakfast Orally Once a day Not-Taking Finasteride 5 MG 1 tablet Orally Once a day; Duration: 90 days 05/17/2024 05/12/2025 Not-Taking Metoprolol Succinate ER 25 MG 1 tablet Orally Once a day Not-Taking Prochlorperazine Not -Taking Fluconazole 100 MG 1 tablet Orally Not-Taking PreserVision AREDS 2 Active predniSONE Not-Takin g Nasal [place] Not-Taki ng Famotidine 20 MG 1 tablet at bedtime as needed Orally twice a day 40mg Active Renacidin - 60mL Irrigation daily; Duration: 30 days 10/17/2024 12/15/2024 Active Aspirin 81 81 MG 1 tablet Orally Once a day Active Januvia 100 MG 1 tablet Orally Once a day 50mg Active Eliquis 5 MG 1 tablet Orally Twic e a day Active Metoclopramide HCl 5 MG 1 tablet before meals Orally Twice a day Active Levothyroxine Sodium 175 MCG 1 tablet in the morning on an empty stomach Orally Once a day Active Montelukast Sodium 10 MG 1 tablet Orally Once a day Active Rosuvastatin Calcium 40 MG 1 tablet Orally Once a day Active Probiotic Active Xgeva 120 MG/1.7ML as directed Subcutaneous Active Nitroglycerin Active traZODone HCl 50 MG 1 tablet at bedtime as needed Orally Once a day Active LORazepam 2 MG/ML 1 mL as needed Orall y Twice a day Active Claritin Active Morphine Sulfate 15 MG 1 tablet as needed Orally every 6 hrs As needed Active Tylenol Active Xtandi Active Ondansetron 8 MG 1 tablet on the tongue and allow to dissolve as needed Orally Once a day Active Calcium Active Ipratropium [place] Active Vitamin D Active Triamcinolone Acet & Anesth Active Trelegy Ellipta 100-62.5-25 MCG/ACT 1 puff Inhalation Once a day Active Folic Acid Active Vitamin D3 Active Tamsulosin HCl 0.4 MG 1 capsule Orally O nce a day Active Vital Signs Blood pressure systolic 127 mm Hg 10/28/19 25 Blood pressure diastolic 78 mm Hg 025 Heart Rate 70 /min 10/27/2024 Height 75 in 10/27/2024 Weight 175 lbs 10/27/2024 BMI 21.87 kg/m2 10/27/2024 Height-cm 190.5 cm 10/27/2024 Weight-kg 79.38 kg 10/27/2024 Procedures Procedure Date Ordered Date Performed Result Body Sit e SP Tube Change 10/27/2024 10/27/2024 N/A Encounters Encounter Location Date Provider Diagnosis [facility], [place] [place] [address] 10/27/2024 JILLIAN MENDOZA Encounter for attention to cystostomy Z43.5 ; Prostate cancer C61 and Urinary retention R33.9 Assessments Encounter Date Diagnosis (ICD Code) Assessment Notes Treatment Notes Treatment Clinical Notes Section Notes 10/27/2024 Encounter for attention to cystostomy (ICD-10 - Z43.5) Pt here for routine sptube change. He tolerated well. Pt and spouse requesting to return in 3wks due to now flushing for prevention of clogging, which has been working well without any issues. He will return in 3wks for repeat sptube change. 10/27/2024 Prostate cancer (ICD-10 - C61) Pt here for routine sptube change. He tolerated well. Pt and spouse requesting to return in 3wks due to now flushing for prevention of clogging, which has been working well without any issues. He will return in 3wks for repeat sptube change. 10/27/2024 Urinary retention (ICD-10 - R33.9) Pt here for routine sptube change. He tolerated well. Pt and spouse requesting to return in 3wks due to now flushing for prevention of clogging, which has been working well without any issues. He will return in 3wks for repeat sptube change. Plan Of Treatment Next Appt Details Follow Up: 3 Weeks, Reason: Provider Name:BANDAR Simons, 11/17/2024 09:30:00 AM, [address] [facility] [place], [address], Provider Name:BANDAR Simons, 11/30/2024 10:15:00 AM, [address] [facility] [place], [address], Progress Notes * ANNAMARIA BRANDON RDOB:[birth year] (79 yo M)Acc No.[id number]:10/27/2024 Progress Note Patient: ANNAMARIA TOPETE Provider: Lola MENDOZA MD :1945 A ge:79 Y S ex:Male Date:10/27/2024 Address:[address] [place], [place] [id number] Pcp:Jose Thomason MD Subjective: * Chief Complaints: * 1 . 2 wk SPT change. * Medical History: P neumonia, Arthritis, Bladder infections, Diabetes, Prostate cancer, Hernia, Hernia, Back Trouble, High Blood Pressure, Hematuria, COPD, LUTS, Bone cancer. * Medications: T aking Folic Acid , Taking Vitamin D3 , Taking Triamcinolone Acet & Anesth , Taking Trelegy Ellipta 100-62.5-25 MCG/ACT Aerosol Powder Breath Activated 1 puff Inhalation Once a day , Taking Tamsulosin HCl 0.4 MG Capsule 1 capsule Orally Once a day , Taking Vitamin D , Taking Calcium , Taking Ipratropium [place] , Taking Xtandi , Taking Ondansetron 8 [...] 1 tablet Orally Once a day , Notes to Pharmacist: 50mg, Taking Eliquis 5 MG Tablet 1 tablet Orally Twice a day , Taking Aspirin 81 81 MG Tablet Delayed Release 1 tablet Orally Once a day , Taking PreserVision AREDS 2 , Taking Famotidine 20 MG Tablet 1 tablet at bedtime as needed Orally twice a day , Notes to Pharmacist: 40mg, Taking Renacidin - Solution 60mL Irrigation daily , stop date 12/15/2024, Not-Taking predniSONE , Not-Taking Nasal [place] , Not-Taking Fluconazole 100 MG Tablet 1 [...] - Allergy. Objective: * Vitals: B P: 127/78 mm Hg, HR: 70 /min, Wt: 175 lbs, Wt-k.38 kg, Ht: 75 in, Ht-cm: 190.5 cm, BMI: 21.87 Index, Body Surface Area: 2.05. Assessment: * Assessment: 1. E ncounter for attention to cystostomy - Z43.5 (Primary) 2 . P rostate cancer - C61 3 . U rinary retention - R33.9 Pt here for routine sptube randall whitt. He tolerated well. Pt and spouse requesting to return in 3wks due to now flushing for prevention of clogging, which has been working well without any issues. He will return in 3wks for repeat sptube change. Plan: * Treatment: * Procedure Codes: 5 1705 CHANGE OF BLADDER TUBE * Follow Up: 3 Weeks * Billing Information: * Visit Code: * Procedure Codes: 98193 CHANGE OF BLADDER TUBE. * Electronic signature of AUST IN MD KELLY on 11/03/2024 at 09:36 PM CDT Sign off status: Pending * Provider: Lola MENDOZA MD Date: 10/27/2024 Generated for Luc mcnally/Dudley/Meryitting on: 11/03/2024 09:36 PM CDT
[2024-11-03] VITALS (7 sets, daily range): BP systolic 103–120; BP diastolic 51–91; PULSE 55–70; RESP 16; TEMP 36.6; O2SAT 90–95; BMI 21.9
--- OUTSIDE RECORDS SUMMARY | 2024-11-03 21:36 | XMS_ITS | Clinical Summary ---
Author Organization [facility] Address [address] 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
--- OUTSIDE RECORDS SUMMARY | 2024-11-03 21:36 | XMS_ITS | Clinical Summary ---
Author Organization [facility] Address [address] 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
--- OUTSIDE RECORDS SUMMARY | 2024-11-03 21:36 | XMS_ITS | Encounter Summary ---
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
--- OUTSIDE RECORDS SUMMARY | 2024-11-03 21:37 | XMS_ITS | Patient Health Record ---
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 Name Role Phone Katelin WYATT, Jose Primary Care Provider Unavailab LYDIA Malave Unavailable [phone] JONG MENJIVAR Unavailable [phone] JILLIAN MENDOZA Unavailable [phone] Jong Hercules Unavailable [phone] Allergies Allergen (clinical drug ingredient) Drug/Non Drug Allergy documented on EMR Reaction Allergy Type Onset Date Status vancomycin Vancomycin hives Drug Allergy Activ e Results Component Value Reference Range Notes [facility]BASE - Urinary Tract Infect ion (HTRx) Reviewed date:09/19/2024 08:54:48 AM Interpretation: Performing Lab:, [facility] at [address], Phone - [phone], Director - [id number] Notes/Report: CTX-M1 (15), M2 (2), M9 (9), [...] Duration) Notes Start Date End Date Status Triamcinolone Acet & Anesth Active Cetirizine HCl 10 MG 1 tablet Orally Onc e a day Not-Taking Trelegy Ellipta 100-62.5-25 MCG/ACT 1 puff Inhalation Once a day Active carBAMazepine ER 100 MG 1 tablet Orally Twice a day Not-Taking Folic Acid Active Ondansetron HCl 4 MG 1 tablet Orally Onc e a day Not-Taking Vitamin D3 Active Zoladex 10.8 MG as directed Subcutaneous Not-Taking Mupirocin 2 % 1 application Externally Twice a day Not-Taking Promethazine HCl 6.25 MG/5ML 10 mL as needed Orally every 6 hrs Not-Taking Flonase Not-Taking Triamcinolone (oint)-Silicone Not-Taking Xtandi Active Ondansetron 8 MG 1 tablet on the tongue and allow to dissolve as needed Orally Once a day Active Calcium Active Ipratropium Barker Active Tamsulosin HCl 0.4 MG 1 capsule Orally O nce a day Active Alfuzosin HCl Not-Ta jaden Vitamin D Active Abiraterone Acetate 500 MG 2 tablets Orally Once a day Not-Taking Esomeprazole Magnesium [...] Fluconazole 100 MG 1 tablet Orally Not-Taking Albuterol Not-Taking Meclizine HCl Not-Ta jaden levoFLOXacin 500 MG 1 tablet Orally Once a day Not-Taking Aspirin 81 81 MG 1 tablet Orally Once a day Active PreserVision AREDS 2 Active Januvia 100 MG 1 tablet Orally Once a day 50mg Active Eliquis 5 MG 1 tablet Orally Twic e a day Active Metoclopramide HCl 5 MG 1 tablet before meals Orally Twice a day Active Levothyroxine Sodium 175 MCG 1 tablet in the morning on an empty stomach Orally Once a day Active predniSONE Not-Takin g Nasal [place] Not-Taki ng Famotidine 20 MG 1 tablet at bedtime as needed Orally twice a day 40mg Active Renacidin - 60mL Irrigation daily; Duration: 30 days 10/17/2024 12/15/2024 Active traZODone HCl 50 MG 1 tablet at bedtime as needed Orally Once a day Active LORazepam 2 MG/ML 1 mL as needed Orall y Twice a day Active Claritin Active Morphine Sulfate 15 MG 1 tablet as needed Orally every 6 hrs As needed Active Tylenol Active Montelukast Sodium 10 MG 1 tablet Orally Once a day Active Rosuvastatin Calcium 40 MG 1 tablet Orally Once a day Active Probiotic Active Xgeva 120 MG/1.7ML as directed Subcutaneous Active Nitroglycerin Active Social History Tobacco Use: Social History [...] Status Risk Notes Problem Incision of bladder (20744897) Encounter for attention to cystostomy (Z43.5) Active confirmed Problem Type II diabetes mellitus without complication (280036538) Type 2 diabetes mellitus without complication, unspecified whether longterm insulin use (E11.9) Active confirmed Problem Neurogenic bladder (935544751) Neurogenic bladder (N31.9) Active confirmed Problem Suprapubic catheter (798044964) Suprapubic catheter (Z93.59) Active confirmed Problem Bladder calculus (28137656) Bladder calculus (N21.0) Active confirmed Problem Encounter for suprapubic catheter care (Z43.5) Active confirmed Problem COPD - Chronic obstructive pulmonary disease (59296090) Chronic obstructive pulmonary disease, unspecified COPD type (J44.9) Active confirmed Problem Change of urinary catheter bag (procedure) (625370066) Catheter (urine) change required (Z46.6) Active confirmed Problem History of radiation exposure (190932216) S/P radiation therapy (Z92.3) Active confirmed Problem Metastatic adenocarcinoma to prostate (5586401034) Metastatic adenocarcinoma to prostate (C79.82) Active confirmed Problem Malignant tumor of prostate (888629951) Prostate cancer (C61) Active confirmed Vital Signs Heart Rate 70 /min 10/27/2024 Height-cm 190.5 cm 10/27/2024 Blood pressure diastolic 78 mm Hg 10/27/2024 Weight-kg 79.38 kg 10/27/2024 Height 75 in 10/27/2024 Blood pressure systolic 127 mm Hg 10/27/2024 Weight 175 lbs 10/27/2024 BMI 21.87 kg/m2 10/27/2024 Procedures Procedure Date Ordered Date Performed Result Body Sit e SP Tube Change 12/01/2023 12/01/2023 N/A SP [...] N/A SP Tube Change 09/29/2024 09/29/2024 N/A SP Tube Change 10/13/2024 N/A SP Tube Change 10/27/2024 10/27/2024 N/A Encounters Encounter Location Date Provider Diagnosis [facility] [address] [place] [address] 12/15/2023 LYDIA REANO [facility] [address] [place] [address] 01/18/2024 JILLIAN MENDOZA [facility] [address] [place] [address] 02/16/2024 LYDIA REANO [facility] [address] [place] [address] 02/18/2024 LYDIA REANO [facility] [address] [place] [address] 2024 JONG HAMMONDKER [facility] [address] [place] [address] 2024 JONG MENJIVAR [facility] [address] [place] [address] 2024 LYDIA REANO [facility] [address] [place] [address] 04/04/2024 LYDIA REANO [facility] [address] [place] [address] 04/05/2024 JONG HAMMONDKER [facility] [address] [place] [address] 05/17/2024 JONG HAMMONDKER [facility] [address] [place] [address] 05/24/2024 LYDIA REANO [facility], [facility] [address] [place] [address] 05/30/2024 LYDIA REANO [facility] [address] [place] [address] 09/19/2024 Jong Hercules [facility], [facility] [address] [place] [address] 10/17/2024 LYDIA REANO [facility], [facility] [address] [facility] [address] 10/27/2024 JILLIAN MENDOZA Encounter for attent ion to cystostomy Z43.5 ; Prostate cancer C61 and Urinary retention R33.9 [facility], [facility] [address] [place] [address] 05/31/2024 JONG MENJIVAR Urinary retention R3 3.9 ; Prostate cancer C61 ; Metastatic adenocarcinoma to prostate C79.82 ; History of orchiectomy, 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 and S/P radiation therapy Z92.3 [facility], [facility] [address] [place] [address] 04/06/2024 LYDIA REANO Urinary retention R3 3.9 ; Prostate cancer C61 ; Metastatic adenocarcinoma to prostate C79.82 ; History of orchiectomy, 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 and S/P radiation therapy Z92.3 [facility] [address] [place] [address] 03/02/2024 JONG MENJIVAR Urinary retention R3 3.9 ; Prostate cancer C61 ; Metastatic adenocarcinoma to prostate C79.82 ; History of orchiectomy, 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 ; S/P radiation therapy Z92.3 and Encounter for attention to cystostomy Z43.5 [facility] [address] [place] [address] 08/18/2024 Jong Hercules Urinary retention R3 3.9 ; Prostate cancer C61 ; Metastatic adenocarcinoma to prostate C79.82 ; History of orchiectomy, 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 ; S/P radiation therapy Z92.3 and Encounter for attention to cystostomy Z43.5 [facility] [address] [place] [address] 09/01/2024 Jong Hercules Encounter for attent ion to cystostomy Z43.5 and Urinary retention R33.9 [facility] [address] [place] [address] 09/15/2024 Jong Hercules Encounter for attent ion to cystostomy Z43.5 ; Dysuria R30.0 and Acute urinary retention R33.8 [facility] [address] [place] [address] 09/29/2024 Jong Hercules Encounter for attent ion to cystostomy Z43.5 ; Neurogenic bladder N31.9 and Bladder calculus N21.0 [facility] [address] [place] [address] 10/13/2024 JILLIAN MENDOZA Encounter for attent ion to cystostomy Z43.5 and Neurogenic bladder N31.9 [facility] [address] [place] [address] 06/21/2024 JONG MENJIVAR Encounter for suprapubic catheter care Z43.5 and Urinary retention R33.9 [facility] [address] [place] [address] 07/12/2024 JONG MENJIVAR Encounter for suprapubic catheter care Z43.5 and Prostate cancer C61 [facility] [address] [place] [address] 08/03/2024 JONG MENJIVAR Encounter for suprapubic catheter care Z43.5 and Prostate cancer C61 [facility] [address] [place] [address] 12/01/2023 JILLIAN MENDOZA Encounter for attent ion to cystostomy Z43.5 and Suprapubic catheter Z93.59 [facility] [address] [place] [address] 12/29/2023 JONG MENJIVAR Urinary retention R3 3.9 and Encounter for suprapubic catheter care Z43.5 [facility] [address] [place] [address] 02/17/2024 JONG MENJIVAR Encounter for suprapubic catheter care Z43.5 and Urinary retention R33.9 [facility] [address] [place] [address] 03/09/2024 JONG MENJIVAR Trigonitis N30.30 [facility], [facility] [address] [place] [address] 03/30/2024 LYDIA GONZALES Assessments Encounter Date Diagnosis (ICD Code) Assessment Notes Treatment Notes Treatment Clinical Notes Section Notes 12/01/2023 Encounter for attention to cystostomy (ICD-10 [...] scheduled for next available cystolithalopaxy at [facility]. He recently started having sptube changed [...] scheduled for next available cystolithalopaxy at [facility]. He recently started having sptube changed [...] and it is both accurate and complete. 09/01/2024 Encounter for attention to cystostomy (ICD-10 [...] in 2 weeks for routine change. 09/29/2024 Encounter for attention to cystostomy (ICD-10 - Z43.5) Discussed case with Jennifer Hercules APRN and kaur was in appropriate placement. It was recommended on moving forward with renacidin due to continued kaur clogging. 09/29/2024 Neurogenic bladder (ICD-10 - N31.9) Discussed case with Jennifer Hercules APRN and kaur was in appropriate placement. It was recommended on moving forward with renacidin due to continued kaur clogging. 10/27/2024 Encounter for attention to cystostomy (ICD-10 [...] return in 3wks for repeat sptube change. 10/13/2024 Encounter for attention to cystostomy (ICD-10 - Z43.5) Pt here for routine sptube change. He tolerated well and will return in 2wks for repeat change or sooner with any other concerns. 10/13/2024 Neurogenic bladder (ICD-10 - N31.9) Pt here for routine sptube change. He tolerated well and will return in 2wks for repeat change or sooner with any other concerns. 08/18/2024 Prostate cancer (ICD-10 - C61) We discussed previous office visit with Dr. Menjivar where patient was needed to have dilation up to 16 Taiwanese and a 16 Taiwanese suprapubic tube back into the bladder under [...] needed to have dilation up to 16 Taiwanese and a 16 [place]ese suprapubic tube back into the bladder under [...] or questions. Patient satisfied with plan. 08/03/2024 Encounter for suprapubic catheter care (ICD-10 - Z43.5) Pt here for routine sptube change and he tolerated well. He will return in 3wks of repeat change. 07/12/2024 Encounter for suprapubic catheter care [...] emergency room could only place a 10 Taiwanese suprapubic tube. I was able to remove this and dilate up to 16 Taiwanese and get a 16 Taiwanese suprapubic tube back into the bladder under [...] than 50% of that time in direct qldo-cl-uuap discussion. 03/09/2024 Trigonitis (ICD-10 - N30.30) 02/17/2024 Encounter [...] return in 4 wks for repeat change. 04/06/2024 Prostate cancer (ICD-10 - C61) 04/06/2024 Urinary retention (ICD-10 - R33.9) 04/06/2024 Metastatic adenocarcinoma to prostate (ICD-10 - C79.82) 05/31/2024 Prostate cancer (ICD-10 - C61) He had a clogged SP tube and outside emergency room could only place a 10 [place]ese suprapubic tube. I was able to remove this and dilate up to 16 Taiwanese and get a 16 Taiwanese suprapubic tube back into the bladder under [...] than 50% of that time in direct lwkr-kt-nywd discussion. 08/03/2024 Prostate cancer (ICD-10 - C61) Pt here for routine sptube change and he tolerated well. He will return in 3wks of repeat change. 08/18/2024 Metastatic adenocarcinoma to prostate (ICD-10 - C79.82) We discussed previous office visit with Dr. Menjivar where patient was needed to have dilation up to 16 Taiwanese and a 16 Taiwanese suprapubic tube back into the bladder under [...] concerns or questions. Patient satisfied with plan. 10/27/2024 Urinary retention (ICD-10 - R33.9) Pt here for routine sptube change. He tolerated well. Pt and spouse requesting to return in 3wks due to now flushing for prevention of clogging, which has been working well without any issues. He will return in 3wks for repeat sptube change. 09/29/2024 Bladder calculus (ICD-10 - N21.0) Discussed case with Jennifer Hercules APRN and kaur was in appropriate placement. It was recommended on moving forward with renacidin due to continued kaur clogging. 09/15/2024 Acute urinary retention (ICD-10 - R33.8) [...] return in 2 weeks for routine change. 03/02/2024 Metastatic adenocarcinoma to prostate (ICD-10 [...] scheduled for next available cystolithalopaxy at [facility]. He recently started having sptube changed [...] it is both accurate and complete. 03/02/2024 History of orchiectomy, bilateral (ICD-10 - [...] scheduled for next available cystolithalopaxy at [facility]. He recently started having sptube changed [...] it is both accurate and complete. 08/18/2024 History of orchiectomy, bilateral (ICD-10 - Z90.79) We discussed previous office visit with Dr. Menjivar where patient was needed to have dilation up to 16 Taiwanese and a 16 Taiwanese suprapubic tube back into the bladder under [...] emergency room could only place a 10 Taiwanese suprapubic tube. I was able to remove this and dilate up to 16 Taiwanese and get a 16 Taiwanese suprapubic tube back into the bladder under [...] than 50% of that time in direct sbtn-ft-sryv discussion. 04/06/2024 History of orchiectomy, bilateral (ICD-10 - Z90.79) 05/31/2024 History of orchiectomy, bilateral (ICD-10 - Z90.79) He had a clogged SP tube and outside emergency room could only place a 10 Taiwanese suprapubic tube. I was able to remove this and dilate up to 16 Taiwanese and get a 16 Taiwanese suprapubic tube back into the bladder under [...] than 50% of that time in direct vtkq-av-aizg discussion. 04/06/2024 S/P radiation therapy (ICD-10 - Z92.3) 08/18/2024 S/P radiation therapy (ICD-10 - Z92.3) We discussed previous office visit with Dr. Menjivar where patient was needed to have dilation up to 16 Taiwanese and a 16 Taiwanese suprapubic tube back into the bladder under [...] scheduled for next available cystolithalopaxy at [facility]. He recently started having sptube changed with and will continue this q4wks. He will return post operatively or sooner with any other concerns. IMaggy CNA, am scribing for, and in the presence, of Dr. Menjivar. I, Dr. Jong Menjivar, personally performed the services prescribed in this documentation, as scribed by Maggy Monterroso CNA, in my presence, and it is both accurate and complete. 03/02/2024 Encounter for attention to cystostomy (ICD-10 [...] scheduled for next available cystolithalopaxy at [facility]. He recently started having sptube changed [...] needed to have dilation up to 16 Taiwanese and a 16 Taiwanese suprapubic tube back into the bladder under [...] emergency room could only place a 10 Taiwanese suprapubic tube. I was able to remove this and dilate up to 16 Taiwanese and get a 16 Taiwanese suprapubic tube back into the bladder under [...] than 50% of that time in direct quyb-so-ezkv discussion. 04/06/2024 Other No need for SP tube change today. We have discussed the importance of proper hygiene and care or SP tube drainage bag to prevent complications . His was educated by home health how [...] Order Date Chest X-ray PA and lateral [id number] Electrocardiogram (EKG) 06/17/2023 PSA, TOTAL (5363) 08/18/2024 SP Tube Change 10/13/2024 Catheter Insertion-Routine 09/15/2024 Future Test Test Name Order Date PSA, TOTAL (5363) 01/10/2024 Next Appt Details Provider Name:JONG Simons, 11/17/2024 09:30:00 AM, [address] [place], [address], Provider Name:JONG Simons, 11/30/2024 10:15:00 AM, [address] [place], [address], Insurance Providers Payer Name Payer Address Payer Phone Subscriber Number Group Number Insured Name Patient Relationship to Insured Coverage Start Date Coverage End Date [facility] Medicare Advantage PPO [address] [address] [place], [place] [id number] [facility] [id number] [place], [place] Self - patient is the insured [place] Medicaid [address] [place], [place] [id number] [place], [place] Self - patient is [...]
--- NOTE | 2024-11-03 21:42 | ED_ITS ---
HPI - Male Genitourinary 2 General: Chief complaint: Urogenital-Male Stated complaint: believes UTI bad one Time Seen by Provider: 11/03/24 21:37 Source: patient Mode of arrival: ambulatory Limitations: no limitations History of Present Illness: 79-year-old male has a suprapubic cathet er in place he states he had some burning around it and is concerned he may have a UTI. States that he seemed that was clogged earlier but he flushed it and is working currently has urine in his [place] bag. He denies any fever denies any vomiting denies any severe pain Associated symptoms: Deny nausea or vomiting Related Data Home Medications ?Medication ?Instructions ?Recorded ?Confirmed aspirin 81 mg tablet,delayed 81 mg PO DAILY 03/29/19 0 11/01/24 release mv-mn-folic 200 mcg-vit K 15 1 cap PO DAILY 04/09/23 0 11/01/24 mcg-lutein 5 mg-zeaxanthin 1 mg capsule (PreserVision AREDS 2 Plus Multivit) loratadine 10 mg tablet (Claritin) 10 mg PO QPM 11/01/24 lorazepam 1 mg tablet 1 mg PO DAILY PRN Anxiety 11/01/24 acetaminophen 500 mg tablet 500 mg PO BEDTIME PRN Feve r Or Pain 04/24/24 11/01/24 (Tylenol Extra Strength) lactobacillus comb no.10 20 20,000 mmu cells PO DAILY 04/24/24 11/01/24 billion cell capsule (Probiotic) triamcinolone acetonide 55 mcg 2 spray intranasal AMIRAH Y 05/18/24 11/01/24 nasal spray aerosol metoprolol succinate 25 mg 12.5 mg PO QAM 05/20/24 tablet,extended release 24 hr Held on 10/14/24. Instructions: Doctor's Order famotidine 40 mg tablet (Pepcid) 40 mg PO BID 09/30/24 11/01/24 metoclopramide HCl 5 mg tablet 5 mg PO TID 09/30/24 (Reglan) Previous Rx's ?Medication ?Instructions ?Recorded Walker #1 ea 07/28/22 fluticasone fur. 100 mcg-umeclid 1 ea inhalation DAILY #60 ea 10/13/23 62.5 mcg-vilant 25 mcg inhalat.powder (Trelegy Ellipta) ipratropium 0.5 mg-albuterol 3 mg 3 ml inhalation Q6H PRN wheezing 11/06/23 (2.5 mg base)/3 mL nebulization #90 mL soln nebulizer with tubing #1 ea 11/06/23 polyethylene glycol 3350 17 gram 17 g PO DAILY #30 ea 01/18/24 oral powder packet (Miralax) docusate sodium 100 mg capsule 100 mg PO DAILY PRN con stipation 01/29/24 #60 caps cholecalciferol (vitamin D3) 50 50 mcg PO DAILY #90 ca ps 04/26/24 mcg (2,000 unit) capsule rosuvastatin 40 mg tablet 40 mg PO BEDTIME #90 tabs levothyroxine 175 mcg tablet See Rx Instructions .Rout e 07/19/24 .COMPLEX #90 tabs montelukast 10 mg tablet 10 mg PO DAILY #90 tabs 07/10 04/05 trazodone 100 mg tablet 100 mg PO QPM #90 tabs 07/21 carbamazepine 100 mg See Rx Instructions .Route 0 09/02/24 tablet,extended release,12 hr .COMPLEX #60 tabs morphine 30 mg immediate release 30 mg PO Q6H PRN pain 22 days #90 09/20/24 tablet tabs ondansetron HCl 8 mg tablet 8 mg PO Q8H PRN Nausea And 09/26/24 Vomiting #60 tabs ferrous sulfate 325 mg (65 mg 325 mg PO BID #60 tabs 0 10/05/24 iron) tablet folic acid 1 mg tablet 1 mg PO BID #30 tabs 5 gentamicin 100 mg/50 mL in sodium 420 mg (210 mL) IV Q 48H 3 doses 10/05/24 chloride(iso) intravenous piggyback catheter bags #4 ea 10/07/24 blood sugar diagnostic (Blood #50 ea 10/14/24 Glucose Test strips) blood-glucose meter #1 ea 10/14/24 lancets 25 gauge #100 ea 10/14/24 prednisone 5 mg tablet 5 mg PO BID #60 tabs 5 sitagliptin phosphate 50 mg tablet 50 mg PO QAM #60 ta bs 10/21/24 enzalutamide 80 mg tablet (Xtandi) 80 mg PO DAILY #30 tabs 10/27/24 apixaban 5 mg tablet (Eliquis) 5 mg PO BID #90 tabs triamcinolone acetonide 0.1 % 1 applic topical BID #45 4 grams 11/01/24 topical cream cephalexin 500 mg capsule 500 mg PO TID 7 days #21 cap s 11/03/24 Allergies Allergy/AdvReac Type Severity Reaction Status Date / Time vancomycin Allergy HIVES,RASH Verified 11/01/24 08:46 Review of Systems 2 Const: Denies: fever(s), chills, body aches or change in appetite ENMT: Denies: throat pain or dental pain Card: Denies: chest pain Resp: Denies: dyspnea GI: Denies: abdominal pain, nausea, vomiting or diarrhea Musc: Denies: neck pain or back pain Skin/Breast: Denies: rash PFSH ED 2 PFSH: Medical History (Updated 11/03/24 @ 22:59 by Vale Mcguire MD) Weight loss Viral URI with cough Hospital discharge follow-up Papillary thyroid carcinoma Suprapubic catheter Prostate cancer metastatic to bone Chronic deep vein thrombosis (DVT) of popliteal vein of left lower extremity Nausea & vomiting Lower urinary tract symptoms (LUTS) Cancer related pain Urinary tract infection Right kidney mass Burning sensation of feet Lumbar stenosis with neurogenic claudication Intervertebral disc disorder with radiculopathy of lumbosacral region Metastasis to bone Dyslipidemia History of diverticulitis Type 2 diabetes mellitus without complication, without long-term current use of insulin Benign essential HTN 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 Gastroesophageal reflux disease without esophagitis COPD (chronic obstructive pulmonary disease) 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 Prostate cancer History of thyroid cancer Surgical History History of bladder surgery History of prostate surgery H/O transurethral resection of prostate History of cystostomy S/P cystourethroscopy with dilation of urethral stricture History of lumbar discectomy History of colonoscopy (07/12/19) diverticulosis, repeat 10 years History of orchiectomy, bilateral H/O total knee replacement BILATERAL H/O hernia repair History of hemorrhoidectomy History of uvulectomy History of thyroidectomy, subtotal Family History Mother , in her 90's Cancer Diabetes Sister Diabetes Father , in his 70's No problems noted. Other CAD (coronary artery disease) Social History Smoking and tobacco/nicotine status: never used tobacco/nicotine Quit status (tobacco/nicotine): has quit using Year quit tobacco: 2022 Former quit date comment: stopped in February of this year Alcohol intake: never Substance/Drug Use: never Lives independently: Yes Household members: spouse Marital status: Current occupational status: retired Physical Exam 2 Const: COMMON NORMALS: no acute distress, patient oriented x3 and healthy appearing HENMT: COMMON NORMALS: normocephalic and atraumatic HEAD & SCALP: n ormocephalic and atraumatic Eye: COMMON NORMALS: conjunctivae normal CONJUNCTIVA: Yes conjunctivae normal Neck/C-Spine: COMMON NORMALS: full ROM and supple Chest: COMMONS NORMALS: normal inspection of the chest Resp: COMMON NORMALS: normal respiratory effort Cardio: COMMON NORMALS: regular rate, regular rhythm and No murmurs present (Cardio) RATE: regular rate RHYTHM: regular rhythm GI: COMMON NORMALS: Normal to inspection, nondistended, normoactive bowel sounds present, Soft to palpation, non-tender and no masses PALPATION: Yes Soft to palpation OTHER: Suprapubic in place functioning at this time Extremity: COMMON NORMALS: normal to inspection and full ROM Neuro: COMMON NORMALS: patient oriented x3, moves all extremities and no focal motor deficits Psych: COMMON NORMALS: mental status grossly normal, Normal thought process present and cooperative THOUGHT PROCESS: Normal thought process present Skin: COMMON NORMALS: no rashes or lesions noted and no wounds GENERAL SKIN EXAM: no rashes or lesions noted Course 2 Vital Signs: Vital signs: Vital Signs Temperature 97.9 F 11/03/24 21:29 Pulse Rate 59 L 11/03/24 22:04 Respiratory Rate 16 11/03/24 21:29 Blood Pressure 103/91 11/03/24 22:04 Pulse Oximetry 90 11/03/24 22:04 Oxygen Delivery Me thod Room Air 11/03/24 21:29 MDM - Male Medical Decision Making Patient presents for acute cystitis white count is normal no signs of sepsis his exam here is benign no tenderness no signs of acute surgical abdomen I did go over his urinalysis along with labs with a will give a dose of Rocephin here will prescribe him Keflex he has to follow-up with his PCP and return if worsening he understands agrees to plan Medical Records I reviewed the patient's medical records. Lab Data I reviewed the patient's lab results. 11/03/24 21:48 11/03/24 21:48 Laboratory Results WBC 5.52 10^3/uL (3.29-11.43) 11/03/24 21:48 RBC 3.12 10^6/uL (3.85-5.65) L 11/03/24 21:48 Hgb 10.20 g/dL (11.27-16.99) L 11/03/24 21:48 Hct 31.3 % (37-53) L 11/03/24 21:48 MCV 100.3 fl (82-101) 11/03/24 21:48 MCH 32.7 pg (27-33) 11/03/24 21:48 MCHC 32.6 g/dL (30-55) 11/03/24 21:48 RDW 14.6 % (12.1-15.1) 11/03/24 21:48 Plt Count 146 10^3/cmm (157-399) L 11/03/24 21:48 MPV 10.4 fL (7.4-10.4) 11/03/24 21:48 Neut % (Auto) 75.1 % 11/03/24 21:48 Lymph % (Auto) 11.6 % 11/03/24 21:48 [place] % (Auto) 12.0 % 11/03/24 21:48 Eos % (Auto) 0.5 % 11/03/24 21:48 Baso % (Auto) 0.4 % 11/03/24 21:48 Neut # (Auto) 4.15 10^3/uL (1.8-7.7) 11/03/24 21:48 Lymph # (Auto) 0.6 10^3/uL (0.8-4.8) L 11/03/24 21:48 [place] # (Auto) 0.7 10^3/uL (0.2-0.9) 11/03/24 21:48 Eos # (Auto) 0.0 10^3/uL (0.0-0.8) 11/03/24 21:48 Baso # (Auto) 0.0 10^3/uL (0.0-0.1) 11/03/24 21:48 Nucleated RBC % (auto) 0 % 11/03/24 21:48 Nucleated RBCs # 0.0 /100WBC 11/03/24 21:48 Sodium 139 mmol/L (136-145) 11/03/24 21:48 Potassium 3.7 mmol/L (3.5-5.1) 11/03/24 21:48 Chloride 100 mmol/L (98-107) 11/03/24 21:48 Carbon Dioxide 29 mmol/L (22-29) 11/03/24 21:48 Anion Gap 13.7 (5-19) 11/03/24 21:48 BUN 19 mg/dL (8-23) 11/03/24 21:48 Creatinine 1.6 mg/dL (0.7-1.2) H 11/03/24 21:48 GFR Calculation Not Reportable 11/03/24 21:48 Glucose 154 mg/dL (65-115) H 11/03/24 21:48 Calculated Osmolality 293 mOsm/kg (285-295) 11/03/24 21:48 Calcium 8.7 mg/dL (8.5-10.5) 11/03/24 21:48 Total Bilirubin 0.4 mg/dL (0.15-1.2) 11/03/24 21:48 AST 9 U/L (0-40) 11/03/24 21:48 ALT < 5 U/L (0-41) 11/03/24 21:48 Alkaline Phosphatase 78 U/L (40-130) 11/03/24 21:48 Total Protein 6.8 g/dL (6.6-8.7) 11/03/24 21:48 Albumin 3.4 g/dL (3.5-5.2) L 11/03/24 21:48 Globulin 3.4 g/dL (1.3-4.6) 11/03/24 21:48 Urine Color Yellow (Yellow) 11/03/24 21:56 Urine Appearance Turbid (CLEAR) A 11/03/24 21:56 Urine pH 6.5 (5-7) 11/03/24 21:56 Ur Specific [place] 1.019 (1.005-1.030) 11/03/24 21:56 Urine Protein 2+ (Negative) A 11/03/24 21:56 Urine Glucose (UA) Negative (Normal) 11/03/24 21:56 Urine Ketones Trace (Negative) 11/03/24 21:56 Urine Blood 3+ (Negative) A 11/03/24 21:56 Urine Nitrate Positive (Negative) A 11/03/24 21:56 Urine Bilirubin Negative (Negative) 11/03/24 21:56 Urine Urobilinogen 1.0 mg/dL (Negative) 11/03/24 21:56 Ur Leukocyte Esterase 3+ (Negative) A 11/03/24 21:56 Urine RBC 25-40 /hpf (0-2) H 11/03/24 21:56 Urine WBC >100 /hpf (0-5) H 11/03/24 21:56 Ur Squamous Epith Cells 6-10 /hpf (0-5) 11/03/24 21:56 Amorphous Sediment Not Reportable 11/03/24 21:56 Urine Bacteria 4+ /hpf (NONE) H 11/03/24 21:56 Hyaline Casts 55.01 /lpf 11/03/24 21:56 No radiology studies performed this visit Discharge Plan Discharge Patient Disposition: Home Clinical Impression: Recurrent UTI Condition: Stable Prescriptions: New cephalexin 500 mg capsule 500 mg PO TID 7 Days Qty: 21 0RF No Action aspirin 81 mg tablet,delayed release (DR/EC) 81 mg PO DAILY (DME) nebulizer with tubing See Rx Instructions .Route .MEDSUPPLY Qty: 1 0RF Rx Instructions: As directed ipratropium-albuterol 0.5 mg-3 mg(2.5 mg base)/3 mL solution for nebulization 3 ml inhalation Q6H PRN (Reason: wheezing) Qty: 90 0RF docusate sodium 100 mg capsule 100 mg PO DAILY PRN (Reason: constipation) Qty: 60 0RF lorazepam 1 mg tablet 1 mg PO DAILY PRN (Reason: Anxiety) triamcinolone acetonide 55 mcg aerosol,spray 2 spray intranasal DAILY Rx Instructions: administer into each nostril montelukast 10 mg tablet 10 mg PO DAILY Qty: 90 1RF trazodone 100 mg tablet 100 mg PO QPM Qty: 90 1RF prednisone 5 mg tablet 5 mg PO BID Qty: 60 0RF (DME) Walker See Rx Instructions .ROUTE .MEDSUPPLY Qty: 1 0RF Rx Instructions: As directed PreserVision AREDS 2 Plus MV 200 mcg-15 mcg- 5 mg-1 mg capsule 1 cap PO DAILY Trelegy Ellipta 100-62.5-25 mcg blister with device 1 ea INHALATION DAILY Qty: 60 5RF triamcinolone acetonide 0.1 % cream 1 applic topical BID Qty: 454 0RF ([facility] blood-glucose meter Misc See Rx Instructions .MEDSUPPLY Qty: 1 0RF Rx Instructions: As directed ([facility] Blood Glucose Test Strip See Rx Instructions .MEDSUPPLY Qty: 50 11RF Rx Instructions: Twice daily ([facility] lancets 25 gauge misc See Rx Instructions .MEDSUPPLY Qty: 100 5RF Rx Instructions: Test twice daily cholecalciferol (vitamin D3) 50 mcg (2,000 unit) capsule 50 mcg PO DAILY Qty: 90 1RF rosuvastatin 40 mg tablet 40 mg PO BEDTIME Qty: 90 1RF levothyroxine 175 mcg tablet See Rx Instructions .ROUTE .COMPLEX Qty: 90 1RF Dose Instruction: TAKE 1 TABLET BY MOUTH EVERY DAY thursday through thursday. take 1/2 tablet BY MOUTH ON thursday, SKIP thursday Rx Instructions: TAKE 1 TABLET BY MOUTH EVERY DAY thursday through thursday. Skip thursday, and thursday carbamazepine 100 mg tablet extended release 12 hr See Rx Instructions .ROUTE .COMPLEX Qty: 60 3RF Dose Instruction: TAKE 1 TABLET BY MOUTH TWICE DAILY Rx Instructions: TAKE 1 TABLET BY MOUTH TWICE DAILY morphine 30 mg tablet 30 mg PO Q6H PRN (Reason: pain) 22 Days Qty: 90 0RF ondansetron HCl 8 mg tablet 8 mg PO Q8H PRN (Reason: Nausea And Vomiting) Qty: 60 0RF (DME) catheter bags See Rx Instructions .Route .MEDSUPPLY Qty: 4 5RF Rx Instructions: As directed sitagliptin phosphate 50 mg tablet 50 mg PO QAM Qty: 60 1RF Xtandi 80 mg tablet 80 mg PO DAILY Qty: 30 0RF Eliquis 5 mg tablet 5 mg PO BID Qty: 90 1RF polyethylene glycol 3350 [Miralax] 17 gram powder in packet 17 g PO DAILY Qty: 30 0RF loratadine [Claritin] 10 mg Tablet 10 mg PO QPM acetaminophen [Tylenol Extra Strength] 500 mg Tablet 500 mg PO BEDTIME PRN (Reason: Fever Or Pain) Probiotic 20 billion cell Capsule 20,000 mmu cells PO DAILY Rx Instructions: administer with a meal metoprolol succinate 25 mg tablet extended release 24 hr 12.5 mg PO QAM famotidine [Pepcid] 40 mg tablet 40 mg PO BID metoclopramide HCl [Reglan] 5 mg tablet 5 mg PO TID gentamicin in NaCl (iso-osm) 100 mg/50 mL piggyback 420 mg IV Q48H Rx Instructions: planned dosing, may be adjusted based on levels. ordered for outpatient infusion administration with orders in acute hold queue at [facility] folic acid 1 mg Tablet 1 mg PO BID Qty: 30 1RF ferrous sulfate 325 mg (65 mg iron) tablet 325 mg PO BID Qty: 60 1RF Discharge Orders: Discharge ED (Routine); Ordered 11/03/24 Ordered By: Vale Mcguire Referrals: Joann Knowles DO [Primary Care Provider, Family Practice] - 4-7 days Discharge Diet: Advance as tolerated Discharge Activity: Resume usual activity Patient Instructions: Urinary Tract Infection in Women (ED) Print Language: Singaporean Coding Level of Care Code ED C D Still Operator for Gale Callahan
[2024-11-03] MEDS: ondansetron 2 mg/ML SDV 2 mL 4 MG IVP (21:54)
[2024-11-03 22:03] LABS: Hematocrit 31.3 % (37-53); Hemoglobin 10.20 g/dL (11.27-16.99); Mean Corpuscular HGB Conc 32.6 g/dL (30-55); Mean Corpuscular Hemoglobin 32.7 pg (27-33); Mean Corpuscular Volume 100.3 fl (82-101); Nucleated Red Blood Cells % 0 %; Platelet Count 146 10^3/cmm (157-399); Red Blood Count 3.12 10^6/uL (3.85-5.65); White Blood Count 5.52 10^3/uL (3.29-11.43)
[2024-11-03 22:05] LABS: Glucose Urine UA Negative (Normal); Nitrate Urine Positive (Negative); Specific Gravity, Urine 1.019 (1.005-1.030)
[2024-11-03 22:10] LABS: Add Urine Microscopic? YES
[2024-11-03 22:31] LABS: Alanine Aminotransferase < 5 U/L (0-41); Albumin Level 3.4 g/dL (3.5-5.2); Alkaline Phosphatase 78 U/L (40-130); Anion Gap 13.7 (5-19); Aspartate Amino Transferase 9 U/L (0-40); Blood Urea Nitrogen 19 mg/dL (8-23); Calcium 8.7 mg/dL (8.5-10.5); Carbon Dioxide 29 mmol/L (22-29); Chloride 100 mmol/L (98-107); Creatinine Clr Calc Pharmacy 43.6593; Globulin 3.4 g/dL (1.3-4.6); Glucose 154 mg/dL (65-115); Osmolality Calculated 293 mOsm/kg (285-295); Potassium 3.7 mmol/L (3.5-5.1); Sodium 139 mmol/L (136-145); Total Protein 6.8 g/dL (6.6-8.7)
[2024-11-03] MEDS: cefTRIAXone 1,000 mg SDV 1000 MG IVP (23:15)
== END 2024-11-03 23:50 | disposition home or self-care (01) ==
PROVIDERS: Emergency Provider Emergency Medicine; PCP Family Medicine
DX: T83.511A Infection and inflammatory reaction due to indwelling urethral catheter, initial encounter (principal); Z79.01 Long term (current) use of anticoagulants; Z87.891 Personal history of nicotine dependence; J44.9 Chronic obstructive pulmonary disease, unspecified; Z85.850 Personal history of malignant neoplasm of thyroid; E78.5 Hyperlipidemia, unspecified; E11.9 Type 2 diabetes mellitus without complications; I10 Essential (primary) hypertension; X58.XXXA Exposure to other specified factors, initial encounter
CPT/HCPCS: 80053; 81001; 85025; 87086; 96374; 96375; 99284; J0696; J2405

== ENCOUNTER 2024-11-10 10:19 | Outpatient (CLI) | payer OTHER, MEDICAID, SELFPAY ==
[2024-11-10 11:28] LABS: Hematocrit 34.7 % (37-53); Hemoglobin 11.30 g/dL (11.27-16.99); Mean Corpuscular HGB Conc 32.6 g/dL (30-55); Mean Corpuscular Hemoglobin 32.5 pg (27-33); Mean Corpuscular Volume 99.7 fl (82-101); Nucleated Red Blood Cells % 0 %; Platelet Count 217 10^3/cmm (157-399); Red Blood Count 3.48 10^6/uL (3.85-5.65); White Blood Count 4.95 10^3/uL (3.29-11.43)
[2024-11-10 12:04] LABS: Alanine Aminotransferase < 5 U/L (0-41); Albumin Level 4.0 g/dL (3.5-5.2); Alkaline Phosphatase 80 U/L (40-130); Aspartate Amino Transferase 9 U/L (0-40); Blood Urea Nitrogen 16 mg/dL (8-23); Calcium 9.9 mg/dL (8.5-10.5); Carbon Dioxide 25 mmol/L (22-29); Chloride 100 mmol/L (98-107); Free T4 Free Thyroxine 1.26 ng/dL (0.82-1.77); Globulin 4.2 g/dL (1.3-4.6); Glucose 168 mg/dL (65-115); Osmolality Calculated 295 mOsm/kg (285-295); Prostate Specific Antigen 7.240 ng/mL (0-4); Sodium 140 mmol/L (136-145); Thyroid Stimulating Hormone 2.90 uIU/mL (0.27-4.20); Total Protein 8.2 g/dL (6.6-8.7)
[2024-11-10 12:15] LABS: Anion Gap 19.1 (5-19); Potassium 4.1 mmol/L (3.5-5.1)
== END 2024-11-10 10:20 | disposition home or self-care (01) ==
LOC: LAB 10:21
PROVIDERS: Internal Medicine Medical Oncology; PCP Family Medicine; Visit Provider Internal Medicine
DX: N13.8 Other obstructive and reflux uropathy (principal); N40.1 Benign prostatic hyperplasia with lower urinary tract symptoms; C61 Malignant neoplasm of prostate; C79.51 Secondary malignant neoplasm of bone; R63.0 Anorexia; E89.0 Postprocedural hypothyroidism; C73 Malignant neoplasm of thyroid gland
CPT/HCPCS: 80053; 84153; 84403; 84432; 84439; 84443; 85025; 86800

== ENCOUNTER 2024-11-11 08:02 | Outpatient (CLI) | payer OTHER, MEDICAID, SELFPAY ==
--- NOTE | 2024-11-11 08:09 | XR_ITS ---
WS: [id number] XR KUB [id number] REASON FOR EXAM: abdominal pain FINDINGS: No free air or retroperitoneal air. Bowel gas pattern is unremarkable without significant colon or small bowel distention. Mild to moderate retained fecal volume with the in the right and left colon. No mass or organomegaly. No urinary tract calculi identified on this examination. (On the previous study of 08/26/2024 there appeared to be 2 small lower pole left renal calculi.) Significant lumbar degenerative spondylosis and osteoarthritis of both hips. No focal bone lesion. XR/XR KUB [id number] IMPRESSION: No acute abnormality.
== END 2024-11-11 08:03 | disposition home or self-care (01) ==
LOC: RAD 08:04
PROVIDERS: PCP Family Medicine; Visit Provider Family Medicine
DX: R10.9 Unspecified abdominal pain (principal); K56.41 Fecal impaction; M16.0 Bilateral primary osteoarthritis of hip
CPT/HCPCS: 74018

== ENCOUNTER → 2024-11-15 10:42 | Outpatient (BNVA) | payer OTHER, MEDICAID, SELFPAY | PROVIDERS: PCP Family Medicine; Visit Provider Internal Medicine | DX: E03.9 Hypothyroidism, unspecified (principal); C61 Malignant neoplasm of prostate; C73 Malignant neoplasm of thyroid gland; R73.03 Prediabetes; R59.9 Enlarged lymph nodes, unspecified; Z90.89 Acquired absence of other organs; Z98.890 Other specified postprocedural states | CPT/HCPCS: 99214 ==

== ENCOUNTER 2024-11-24 09:59 | Observation (INO) | payer OTHER, MEDICAID, SELFPAY ==
--- OUTSIDE RECORDS SUMMARY | 2024-08-24 12:00 | XMS_ITS ---
Author Organization [facility] Address [address] [place] [address] Care Team Providers Care Intelligence Agent Name Role Phone Katelin WYATT, Jose Primary Care Provider Unavailab LYDIA Malave Unavailable [phone] JONG MENJIVAR Unavailable [phone] REASON FOR VISIT 3 wk sp tube chg Encounters Encounter Location Date Provider Diagnosis [facility] [address] [place] [address] 08/24/2024 JONG MENJIVAR Plan Of Treatment Next Appt Details Provider Name:Jong Hercules, 12/15/2024 01:20:00 PM, [address] [place], [address], Progress Notes * ANNAMARIA BRANDON RDOB:[birth year] (79 yo M)Acc No.[id number]:08/24/2024 Progress Note Patient: ANNAMARIA TOPETE Provider: Roby Menjivar MD :1945 A ge:79 Y S ex:Male Date:08/24/2024 Phone: Address:[address] [place] [phone] Pcp:Jose Thomason MD Subjective: * Chief Complaints: * 1 . 3 wk sp tube chg. * Medical History: Objective: * Vitals: Assessment: Plan: * Treatment: * Billing Information: * Visit Code: * Procedure Codes: * Electronic signature of JIMMY MENJIVAR MD on 12/02/2024 at 12:23 PM CDT Sign off status: Pending * Provider: Roby Menjivar MD Date: 0 08/24/2024 Generated for Luc mcnally/Dudley/Miguelito on: 1 12:23 PM CDT
[2024-11-24] VITALS (14 sets, daily range): BP systolic 93–128; BP diastolic 58–74; PULSE 67–101; RESP 16–17; TEMP 36.6–36.7; O2SAT 91–96; BMI 22.6
--- NOTE | 2024-11-24 10:17 | ECG_ITS ---
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 Measurements Intervals [place] Rate: 96 P: 79 CO: 154 QRS: 81 QRSD: 79 T: 74 QT: 334 QTc: 422 Interpretive Statements SINUS RHYTHM WITH OCCASIONAL SUPRAVENTRICULAR PREMATURE COMPLEXES NONSPECIFIC T-WAVE ABNORMALITY Compared to ECG 01/21/2024 02:21:01 T-wave abnormality now present Sinus arrhythmia no longer present Electronically Signed On 11-26-2024 12:03:42 CDT by Isaías Spring M.D. [email or web address]
--- NOTE | 2024-11-24 10:17 | XR_ITS ---
WS: [id number] XR chest 1V portable [id number] REASON FOR EXAM: Nausea vomiting FINDINGS: Chest is unchanged compared to 10/01/2024. Moderate tortuosity and ectasia of the ascending and descending thoracic aorta and aortic arch. Calcification of the aortic arch. Normal heart size. Calcified granulomatous disease bilaterally. No acute pulmonary parenchymal or pleural abnormality. Significant degenerative spondylosis in the thoracic spine. XR/XR chest 1V portable [id number] IMPRESSION: Stable chest without acute abnormality.
--- NOTE | 2024-11-24 10:17 | CT_ITS ---
WS: [id number] CT HEAD NONCONTRAST HISTORY: Nausea vomiting dizziness vision changes TECHNIQUE: Contiguous axial imaging performed through the brain. Bone and soft tissue windows. Sagittal and coronal reformats reviewed. All CT scans at [facility] use at least one of these dose optimization techniques: automated exposure control; mA and/or kV adjustment per patient size (includes targeted exams where dose is matched to clinical indication); or iterative reconstruction. DLP: 1045.74 mGy.cm COMPARISON: 09/30/2024 No acute intracranial hemorrhage, midline shift or mass effect. Mild atrophy and small vessel changes. No prior infarct. There are small remote lacunar infarcts in the RIGHT mabry radiata extending around the occipital horn. These are not new lacunar infarcts. Mild cerebellar atrophy. Ventricles: Normal size with no hydrocephalus. Paranasal sinuses: As visualized are clear. Mastoid air cells: Well pneumatized. Calvarium and scalp: Skull is intact with no soft tissue edema or swelling. CT/CT head wo con* [id number] IMPRESSION: 1. No acute intracranial hemorrhage or edema. 2. Mild cerebral and cerebellar atrophy and small vessel disease. 3. Remote lacunar infarcts RIGHT mabry radiata and over the occipital horn.
--- OUTSIDE RECORDS SUMMARY | 2024-11-24 10:40 | XMS_ITS | Encounter Summary ---
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
--- OUTSIDE RECORDS SUMMARY | 2024-11-24 10:40 | XMS_ITS | Clinical Summary ---
Author Organization [facility] Address [address] 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 Active denosumab (XGEVA) 120 mg/1.7 mL (70 mg/mL) Solution Inject 120 mg by subcutaneous injection every 30 days. Active ipratropium-albu teroL (DUONEB) 0.5 mg-3 mg(2.5 mg base)/3 mL Solution for Nebulization Take 3 mL by inhalation. 9 Active calcium as carbonate (OS-AMY) 1,250 mg (500 mg elemental) tablet Take 1 Tablet by mouth daily. 9 Active nitroglycerin (NITROSTAT) 0.4 mg Tablet, Sublingual Place 0.4 mg under tongue every 5 minutes as needed for Chest Pain. 9 Active goserelin (ZOLADEX) 10.8 mg Implant Inject 10.8 mg by subcutaneous injection every 90 days. 9 Active aspirin (MINDY CHEWABLE) 81 mg Tablet, Chewable Take 81 mg by mouth daily. Active mirtazapine (REMERON) 7.5 mg tablet Take 7.5 mg by mouth daily at bedtime. 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 [id number] MEDICAID [place] Care Teams Profile Grinder Technician Relationship Specialty Start Date End Date Henry Bunch DO [address] [place] [address] PCP - General Internal Medicine 06/08/18
--- OUTSIDE RECORDS SUMMARY | 2024-11-24 10:40 | XMS_ITS | Clinical Summary ---
Author Organization [facility] tone Address [address] 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 Active ondansetron (ZOFRAN) 4 mg TabletIndication s:Primary thyroid malignancy (CMS/HCC),Acquir ed hypothyroidism,H /O total thyroidectomy,Ma lignant neoplasm metastatic to lymph node of neck,Tobacco abuse,Hypocalcem ia,Obesity (BMI 30.0-34.9) Take 4 mg [...] 0 Active fluticasone propionate (FLONASE) 50 mcg/spray [place], Suspension nasal inhaler 50 mcg by See Admin Instructions route. 0 Active Januvia 100 mg Tablet Take 100 mg by mouth. 0 Active levothyroxine 175 mcg tablet Take 1 Tablet (175 mcg) by mouth daily in the morning. 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
--- NOTE | 2024-11-24 10:42 | PC.NURSE ---
PATIENT STATES ROOM SPINNING WHEN TRYING TO PERFORM STANDING VITALS.
[2024-11-24 10:47] LABS: Hematocrit 33.1 % (37-53); Hemoglobin 10.60 g/dL (11.27-16.99); Mean Corpuscular HGB Conc 32.0 g/dL (30-55); Mean Corpuscular Hemoglobin 32.1 pg (27-33); Mean Corpuscular Volume 100.3 fl (82-101); Nucleated Red Blood Cells % 0 %; Platelet Count 137 10^3/cmm (157-399); Red Blood Count 3.30 10^6/uL (3.85-5.65); White Blood Count 5.15 10^3/uL (3.29-11.43)
[2024-11-24 11:10] LABS: Alanine Aminotransferase < 5 U/L (0-41); Albumin Level 3.4 g/dL (3.5-5.2); Alkaline Phosphatase 61 U/L (40-130); Anion Gap 19.3 (5-19); Aspartate Amino Transferase 10 U/L (0-40); Blood Urea Nitrogen 15 mg/dL (8-23); Calcium 8.7 mg/dL (8.5-10.5); Carbon Dioxide 24 mmol/L (22-29); Chloride 100 mmol/L (98-107); Creatinine Clr Calc Pharmacy 44.2356; Globulin 3.1 g/dL (1.3-4.6); Glucose 140 mg/dL (65-115); Osmolality Calculated 293 mOsm/kg (285-295); Potassium 3.3 mmol/L (3.5-5.1); Sodium 140 mmol/L (136-145); Total Protein 6.5 g/dL (6.6-8.7)
--- NOTE | 2024-11-24 12:17 | PC.NURSE ---
Pt has supra pubic catheter, catheter clamped, kaur port cleansed with ns and urine collected.
[2024-11-24 12:20] LABS: Glucose Urine UA Negative (Normal); Nitrate Urine Positive (Negative); Specific Gravity, Urine 1.012 (1.005-1.030)
[2024-11-24 12:34] LABS: Lactic Sepsis W/Reflex 3.0 mmol/L (0.5-2.2)
[2024-11-24 13:55] LABS: Reflex Lactate Order REFLEX LACTIC ORDERD
[2024-11-24 13:56] LABS: Coronavirus 229E,HKU1,NL63,OC4 Not Detected (NOT DETECT); Parainfluenza Virus Type 1 Not Detected (NOT DETECT); Parainfluenza Virus Type 2 Not Detected (NOT DETECT); Parainfluenza Virus Type 3 Not Detected (NOT DETECT); Parainfluenza Virus Type 4 Not Detected (NOT DETECT); SARS-COV-2 Not Detected (NOT DETECT)
--- NOTE | 2024-11-24 14:43 | PC.PHAR ---
Patient takes 30mg of Morphine at bedtime, unless needed .Does not take it every 6 hours as stated in sig.
[2024-11-24 15:39] LABS: Lactic Acid level (Lactate) 1.7 mmol/L (0.5-2.2)
--- NOTE | 2024-11-24 17:39 | PM.HP ---
Providers/Chief Complaint Admitting Physician: Soo Solis MD Primary Care Provider: Joann Knowles DO Chief Complaint: Dizzy N/V Vizion Blurry History of Present Illness Charlie Jacobs is a 79 year old male with past medical history of prostatic cancer, obstructive uropathy treated with suprapubic catheter, papillary thyroid carcinoma post thyroidectomy, history of DVT, COPD, hypertension presents the ER today because of generalized weakness, nausea, tiredness and diarrhea worsening over 2 days. In the ER he was found to have rhinovirus. Suprapubic catheter was last changed on 11/17. As per patient's oral intake is decreasing. In the ER he has been given 1 L of IV fluid bolus. Examination patient has been comfortably in bed, dehydrated with a blood pressure of 96 over 60 mmHg saturating 94% on room air. Review of Systems General: Reports: 10 or more systems reviewed and unremarkable except in HPI and below Const: Denies: fever(s), chills, body aches, change in appetite, change in weight, malaise, night sweats, diaphoresis, change in sleep pattern, daytime sleepiness or snoring Eyes: Denies: change in vision, blurry vision, photophobia, eye discomfort or eye discharge ENMT: Denies: throat pain, enlarged tonsils, hoarseness, mouth pain, oral sores, dry mouth, tinnitus, nasal congestion or post nasal drip Card: Denies: chest pain, palpitations, irregular heart rhythm, edema, swelling of feet/ankles, lightheadedness, syncope, pre-syncope, dyspnea on exertion, orthopnea, leg pain with exertion or acrocyanosis Resp: Denies: dyspnea, productive cough, non-productive cough, wheezing, stridor, pain on inspiration, change in phlegm color, hemoptysis or chest congestion GI: Denies: abdominal pain, nausea, vomiting, hematemesis, coffee ground emesis, dysphagia, heartburn, diarrhea, constipation, bloating, GI cramping, change in bowel habits, pain on defecation, hematochezia or melena : Denies: flank pain, difficulty urinating, dysuria, urinary frequency, urinary urgency, urinary hesitancy, urinary dribbling, difficulty starting urination, change in urine stream, nocturia or hematuria Musc: Denies: neck pain, back pain, extremity pain, joint pain, joint swelling, joint redness, joint stiffness or limited range of motion Neuro: Denies: headache(s), numbness in extremities, weakness in extremities, sensory changes, lack of coordination, difficulty walking, frequent falls, dizziness, vertigo, confusion, Slurred speech present, difficulty communicating thoughts or seizure-like activity Psych: Denies: anxiety, depression, mood swings, panic attacks, hopelessness or irritability Endo: Denies: polyuria, polydipsia, tired all the time, cold intolerance, excessive sweating, flushing or heat intolerance Wilfird/Lymph: Denies: easy bruising or easy bleeding All/Imm: Denies: tongue swelling, facial swelling or acute wheezing Medications/Allergies Home Medications ?Medication ?Instructions ?Recorded ?Confirmed ?Last Taken ?Type aspirin 81 mg tablet,delayed 81 mg PO DAILY 03/29/19 11/24/24 11/23/24 History release Walker #1 ea 07/28/22 11/24/24 05/24/23 Rx mv-mn-folic 200 mcg-vit K 15 1 cap PO DAILY 04/09/23 11/24/24 11/23/24 History mcg-lutein 5 mg-zeaxanthin 1 mg capsule (PreserVision AREDS 2 Plus Multivit) loratadine 10 mg tablet (Claritin) 10 mg PO QPM 07/31/23 11/24/24 11/23/24 19:00 History fluticasone fur. 100 mcg-umeclid 1 ea inhalation DAILY #60 ea 10/13/23 11/24/24 09/29/24 Rx 62.5 mcg-vilant 25 mcg inhalat.powder (Trelegy Ellipta) ipratropium 0.5 mg-albuterol 3 mg 3 ml inhalation Q6H PRN wheezing 11/06/23 11/24/24 09/29/24 19:00 Rx (2.5 mg base)/3 mL nebulization #90 mL soln nebulizer with tubing #1 ea 11/06/23 11/24/24 Unknown Rx polyethylene glycol 3350 17 gram 17 g PO DAILY #30 ea 01/18/24 11/24/24 05/19/24 Rx oral powder packet (Miralax) docusate sodium 100 mg capsule 100 mg PO DAILY PRN constipation 01/29/24 11/24/24 Unknown Rx #60 caps lorazepam 1 mg tablet 1 mg PO DAILY PRN Anxiety 02/01/24 11/24/24 04/24/24 History acetaminophen 500 mg tablet 500 mg PO BEDTIME PRN Fever Or Pain 04/24/24 11/24/24 11/23/24 20:00 History (Tylenol Extra Strength) lactobacillus comb no.10 20 20,000 mmu cells PO DAILY 04/24/24 11/24/24 11/23/24 History billion cell capsule (Probiotic) cholecalciferol (vitamin D3) 50 50 mcg PO DAILY #90 caps 04/26/24 11/24/24 11/23/24 Rx mcg (2,000 unit) capsule triamcinolone acetonide 55 mcg 2 spray intranasal DAILY 05/18/24 11/24/24 09/30/24 08:00 History nasal spray aerosol metoprolol succinate 25 mg 12.5 mg PO QAM 05/20/24 11/24/24 05/20/24 History tablet,extended release 24 hr Held on 10/14/24. Instructions: Doctor's Order rosuvastatin 40 mg tablet 40 mg PO BEDTIME #90 tabs 07/12/24 11/24/24 11/23/24 19:00 Rx levothyroxine 175 mcg tablet See Rx Instructions .Route 07/19/24 11/24/24 11/24/24 07:00 Rx .COMPLEX #90 tabs montelukast 10 mg tablet 10 mg PO DAILY #90 tabs 07/21/24 11/24/24 11/23/24 Rx trazodone 100 mg tablet 100 mg PO QPM #90 tabs 07/21/24 11/24/24 09/29/24 20:00 Rx morphine 30 mg immediate release 30 mg PO Q6H PRN pain 22 days #90 09/20/24 11/24/24 09/29/24 20:00 Rx tablet tabs famotidine 40 mg tablet (Pepcid) 40 mg PO BID 09/30/24 11/24/24 11/23/24 History metoclopramide HCl 5 mg tablet 5 mg PO TID 09/30/24 11/24/24 09/30/24 History (Reglan) ferrous sulfate 325 mg (65 mg 325 mg PO BID #60 tabs 10/05/24 11/24/24 11/23/24 Rx iron) tablet folic acid 1 mg tablet 1 mg PO BID #30 tabs 10/05/24 11/24/24 11/23/24 Rx catheter bags #4 ea 10/07/24 11/24/24 Unknown Rx blood sugar diagnostic (Blood #50 ea 10/14/24 11/24/24 Unknown Rx Glucose Test strips) blood-glucose meter #1 ea 10/14/24 11/24/24 Unknown Rx lancets 25 gauge #100 ea 10/14/24 11/24/24 Unknown Rx enzalutamide 80 mg tablet (Xtandi) 80 mg PO DAILY #30 tabs 10/27/24 11/24/24 11/23/24 Rx apixaban 5 mg tablet (Eliquis) 5 mg PO BID #90 tabs 11/01/24 11/24/24 11/23/24 Rx triamcinolone acetonide 0.1 % 1 applic topical BID #454 grams 11/01/24 11/24/24 Unknown Rx topical cream ondansetron HCl 8 mg tablet 8 mg PO Q8H PRN Nausea And 11/07/24 11/24/24 11/23/24 Rx Vomiting #60 tabs calcium 600 mg (as 1 tab PO DAILY 11/24/24 11/24/24 11/23/24 History carbonate)-vitamin D3 5 mcg (200 unit) tablet carbamazepine 100 mg See Rx Instructions .Route .COMPLEX 11/24/24 11/24/24 11/23/24 History tablet,extended release,12 hr (Tegretol XR) citric ac 1980.6 mg-glucono 59.4 See Rx Instructions .Route .COMPLEX 11/24/24 11/24/24 Unknown History mg-mag carb 980.4 mg/30 mL irrig.soln (Renacidin) sitagliptin phosphate 50 mg tablet 50 mg PO QAM 11/24/24 11/24/24 11/23/24 History (Januvia) Allergies Allergy/AdvReac Type Severity Reaction Status Date / Time vancomycin Allergy HIVES,RASH Verified 11/24/24 09:39 PFSH Acute PFSH: Medical History (Updated 11/24/24 @ 18:31 by Kevin Harman MD) Nausea & vomiting Weight loss Viral URI with cough Hospital discharge follow-up Papillary thyroid carcinoma Suprapubic catheter Prostate cancer metastatic to bone Chronic deep vein thrombosis (DVT) of popliteal vein of left lower extremity Lower urinary tract symptoms (LUTS) Cancer related pain Urinary tract infection Right kidney mass Burning sensation of feet Lumbar stenosis with neurogenic claudication Intervertebral disc disorder with radiculopathy of lumbosacral region Metastasis to bone Dyslipidemia History of diverticulitis Type 2 diabetes mellitus without complication, without long-term current use of insulin Benign essential HTN 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 Gastroesophageal reflux disease without esophagitis COPD (chronic obstructive pulmonary disease) 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 Prostate cancer History of thyroid cancer Surgical History History of bladder surgery History of prostate surgery H/O transurethral resection of prostate History of cystostomy S/P cystourethroscopy with dilation of urethral stricture History of lumbar discectomy History of colonoscopy (07/12/19) diverticulosis, repeat 10 years History of orchiectomy, bilateral H/O total knee replacement BILATERAL H/O hernia repair History of hemorrhoidectomy History of uvulectomy History of thyroidectomy, subtotal Family History Mother , in her 90's Cancer Diabetes Sister Diabetes Father , in his 70's No problems noted. Other CAD (coronary artery disease) Social History Smoking and tobacco/nicotine status: never used tobacco/nicotine Quit status (tobacco/nicotine): has quit using Year quit tobacco: 2022 Former quit date comment: stopped in February of this year Alcohol intake: never Substance/Drug Use: never Lives independently: Yes Household members: spouse Marital status: Current occupational status: retired Vitals/I&O/Wt Last Vital Signs Temp 97.9 F 11/24/24 15:44 Pulse 75 11/24/24 15:44 Resp 16 11/24/24 15:44 BP 96/58 11/24/24 15:44 Pulse Ox 94 11/24/24 15:44 O2 Del Method Room Air 11/24/24 15:44 11/24/24 11/24/24 11/24/24 06:59 14:59 22:59 Intake Total 1000 / 1000 Balance 1000 / 1000 Weight last 48 hrs Weight 82.1 kg Physical Exam Narrative: General: No acute distress, AO x3, dehydrated, generally sick appearing HEENT: PERRLA, pupils bilaterally equal and reactive Chest: Normal vesicular breath sounds, no added sounds, equal good air entry bilaterally CVS: S1-S2 regular, no murmurs, no tachycardia, no gallops, no rubs Abdomen: Soft, nontender, no organomegaly, bowel sounds present Neuro: No focal deficits, no facial deformity, AO x3, power 5/5 in all limbs Suprapubic catheter in place, skin around suprapubic catheter healthy no excoriation Data 11/24/24 10:39 11/24/24 10:39 Micro: Microbiology 11/24/24 11:50 Blood Culture - Preliminary Blood SPECIMEN COLLECTED 11/24/24 12:05 Blood Culture - Preliminary Blood SPECIMEN COLLECTED A&P Assessment and plan 1. Nausea & vomitin. Diarrhea: 3. Dehydration: 4. TUNG (acute kidney injury): 5. Benign essential HTN: 6. Coronary artery disease involving [place] heart without angina pectoris, unspecified vessel or lesion type: 7. Chronic deep vein thrombosis (DVT) of popliteal vein of left lower extremity: 8. Type 2 diabetes mellitus without complication, without long-term current use of insulin: 9. Suprapubic catheter: 10. Infection with multi-drug resistant microorganisms: 11. Rhinovirus infection: Plan: In 79-year-old gentleman with past medical history of bladder cancer with suprapubic catheter in place, thyroid cancer post thyroidectomy with recurrent UTIs due to multidrug-resistant bacteria's comes to the ER because generalized weakness, nausea vomiting and diarrhea found to have rhinovirus. Found to have hypotension. Finish sepsis bolus of 30 mL/kg body weight. After that continue NS at 75 cc/h. Monitor blood pressures. Goal blood pressure less than 140/90 mmHg with mean over 65. Hold off on antihypertensive. Patient currently on room air. If becomes hypoxic we will plan to start steroids. For now Pulmicort twice daily, ipratropium Xopenex every 6 hour. Follow-up blood culture, urine culture. Check MRSA swab. Check urine bacterial antigen. Empirically start on IV meropenem as per creatinine clearance. If patient remains hemodynamically stable, afebrile without leukocytosis in next 24 to 48 hours will discontinue antibiotics. Replace suprapubic catheter. Physical therapy evaluation. Continue other chronic home medications including carbamazepine, metoclopramide, morphine as needed. Hypertension: Goal blood pressure less than 140/90 mmHg. Holding off on antihypertensive except metoprolol. Chronic DVT: Continue with home dose of Eliquis. Thyroid cancer post thyroidectomy: Recent thyroid peroxidase antibody elevated. Seen to have a thyroid nodule undergoing outpatient evaluation. Repeat thyroid panel. Continue with home dose of levothyroxine. CODE STATUS: Discussed with patient and spouse at bedside. Spouse is DPOA. Full code. Cardiac diet Protonix OPD prophylaxis Eliquis was sufficient for DVT prophylaxis PDMP PDMP Reviewed: Not Reviewed Attestations Medical Necessity Statement*: Admission for more than 2 midnights for management of dehydration, generalized weakness in setting of rhinovirus infection in a patient with history of UTI with multidrug-resistant bacteria, suprapubic catheter in place due to prostate cancer Diagnoses Nausea & vomiting R11.2 Diarrhea R19.7 Dehydration E86.0 TUNG (acute kidney injury) N17.9 Benign essential HTN I10 Coronary artery disease involving [place] heart without angina pectoris, unspecified vessel or lesion type I25.10 Coronary Disease-Associated Artery/Lesion type: unspecified vessel or lesion type I[place] vs. transplanted heart: [place] heart Associated angina: without angina Chronic deep vein thrombosis (DVT) of popliteal vein of left lower extremity I82.532 Affected thrombotic vein of extremity: popliteal Chronicity: chronic Type 2 diabetes mellitus without complication, without long-term current use of insulin E11.9 Diabetes mellitus complication status: without complication Suprapubic catheter Z93.59 Infection with multi-drug resistant microorganisms Rhinovirus infection B34.8
[2024-11-24 18:10] LABS: Procalcitonin 11.07 ng/mL (0-0.5)
--- NOTE | 2024-11-24 19:39 | W.ED.WEAKNES ---
HPI - Weakness General: Chief complaint: Weakness Stated complaint: Dizzy N/V Vizion Blurry Time Seen by Provider: 11/24/24 10:17 History of Present Illness: Adult male with suprapubic catheter presents after ~1 week of feeling ill, markedly worse last night. This morning had shakes/rigors severe enough to shake the trailer, profound weakness, room-spinning vertigo, and emesis with small flecks. Reports symptoms of near-syncope that worsen when sick. Caregiver notes a recent cold in the household; patient may be hit harder. Patient largely sedentary, sits in a chair most of the day, but walked to get mail yesterday. Provider states BP is a little low and HR is fast; concern for infection and search for source discussed. Patient/caregiver perform routine catheter maintenance including saline flushes; planning to nut picker an intravesical medication today. ROS otherwise not detailed. Related Data Home Medications ?Medication ?Instructions ?Recorded ?Confirmed aspirin 81 mg tablet,delayed 81 mg PO DAILY 03/29/19 11/24/24 release mv-mn-folic 200 mcg-vit K 15 1 cap PO DAILY 04/09/23 11/24/24 mcg-lutein 5 mg-zeaxanthin 1 mg capsule (PreserVision AREDS 2 Plus Multivit) loratadine 10 mg tablet (Claritin) 10 mg PO QPM 07/31/23 11/24/24 lorazepam 1 mg tablet 1 mg PO DAILY PRN Anxiety 02/01/24 11/24/24 acetaminophen 500 mg tablet 500 mg PO BEDTIME PRN Fever Or Pain 04/24/24 11/24/24 (Tylenol Extra Strength) lactobacillus comb no.10 20 20,000 mmu cells PO DAILY 04/24/24 11/24/24 billion cell capsule (Probiotic) triamcinolone acetonide 55 mcg 2 spray intranasal DAILY 05/18/24 11/24/24 nasal spray aerosol metoprolol succinate 25 mg 12.5 mg PO QAM 05/20/24 11/24/24 tablet,extended release 24 hr Held on 10/14/24. Instructions: Doctor's Order famotidine 40 mg tablet (Pepcid) 40 mg PO BID 09/30/24 11/24/24 metoclopramide HCl 5 mg tablet 5 mg PO TID 09/30/24 11/24/24 (Reglan) calcium 600 mg (as 1 tab PO DAILY 11/24/24 11/24/24 carbonate)-vitamin D3 5 mcg (200 unit) tablet carbamazepine 100 mg See Rx Instructions .Route .COMPLEX 11/24/24 11/24/24 tablet,extended release,12 hr (Tegretol XR) citric ac 1980.6 mg-glucono 59.4 See Rx Instructions .Route .COMPLEX 11/24/24 11/24/24 mg-mag carb 980.4 mg/30 mL irrig.soln (Renacidin) sitagliptin phosphate 50 mg tablet 50 mg PO QAM 11/24/24 11/24/24 (Januvia) Previous Rx's ?Medication ?Instructions ?Recorded Walker #1 ea 07/28/22 fluticasone fur. 100 mcg-umeclid 1 ea inhalation DAILY #60 ea 10/13/23 62.5 mcg-vilant 25 mcg inhalat.powder (Trelegy Ellipta) ipratropium 0.5 mg-albuterol 3 mg 3 ml inhalation Q6H PRN wheezing 11/06/23 (2.5 mg base)/3 mL nebulization #90 mL soln nebulizer with tubing #1 ea 11/06/23 polyethylene glycol 3350 17 gram 17 g PO DAILY #30 ea 01/18/24 oral powder packet (Miralax) docusate sodium 100 mg capsule 100 mg PO DAILY PRN constipation 01/29/24 #60 caps cholecalciferol (vitamin D3) 50 50 mcg PO DAILY #90 caps 04/26/24 mcg (2,000 unit) capsule rosuvastatin 40 mg tablet 40 mg PO BEDTIME #90 tabs 07/12/24 levothyroxine 175 mcg tablet See Rx Instructions .Route 07/19/24 .COMPLEX #90 tabs montelukast 10 mg tablet 10 mg PO DAILY #90 tabs 07/21/24 trazodone 100 mg tablet 100 mg PO QPM #90 tabs 07/21/24 morphine 30 mg immediate release 30 mg PO Q6H PRN pain 22 days #90 09/20/24 tablet tabs ferrous sulfate 325 mg (65 mg 325 mg PO BID #60 tabs 10/05/24 iron) tablet folic acid 1 mg tablet 1 mg PO BID #30 tabs 10/05/24 catheter bags #4 ea 08/29/25 blood sugar diagnostic (Blood #50 ea 10/14/24 Glucose Test strips) blood-glucose meter #1 ea 10/14/24 lancets 25 gauge #100 ea 10/14/24 enzalutamide 80 mg tablet (Xtandi) 80 mg PO DAILY #30 tabs 10/27/24 apixaban 5 mg tablet (Eliquis) 5 mg PO BID #90 tabs 11/01/24 triamcinolone acetonide 0.1 % 1 applic topical BID #454 grams 11/01/24 topical cream ondansetron HCl 8 mg tablet 8 mg PO Q8H PRN Nausea And 11/07/24 Vomiting #60 tabs Allergies Allergy/AdvReac Type Severity Reaction Status Date / Time vancomycin Allergy HIVES,RASH Verified 11/24/24 09:39 PFSH ED PFSH: Medical History (Updated 11/24/24 @ 18:31 by Kevin Harman MD) Nausea & vomiting Weight loss Viral URI with cough Hospital discharge follow-up Papillary thyroid carcinoma Suprapubic catheter Prostate cancer metastatic to bone Chronic deep vein thrombosis (DVT) of popliteal vein of left lower extremity Lower urinary tract symptoms (LUTS) Cancer related pain Urinary tract infection Right kidney mass Burning sensation of feet Lumbar stenosis with neurogenic claudication Intervertebral disc disorder with radiculopathy of lumbosacral region Metastasis to bone Dyslipidemia History of diverticulitis Type 2 diabetes mellitus without complication, without long-term current use of insulin Benign essential HTN 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 Gastroesophageal reflux disease without esophagitis COPD (chronic obstructive pulmonary disease) 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 Prostate cancer History of thyroid cancer Surgical History History of bladder surgery History of prostate surgery H/O transurethral resection of prostate History of cystostomy S/P cystourethroscopy with dilation of urethral stricture History of lumbar discectomy History of colonoscopy (07/12/19) diverticulosis, repeat 10 years History of orchiectomy, bilateral H/O total knee replacement BILATERAL H/O hernia repair History of hemorrhoidectomy History of uvulectomy History of thyroidectomy, subtotal Family History Mother , in her 90's Cancer Diabetes Sister Diabetes Father , in his 70's No problems noted. Other CAD (coronary artery disease) Social History Smoking and tobacco/nicotine status: never used tobacco/nicotine Quit status (tobacco/nicotine): has quit using Year quit tobacco: 2022 Former quit date comment: stopped in February of this year Alcohol intake: never Substance/Drug Use: never Lives independently: Yes Household members: spouse Marital status: Current occupational status: retired Physical Exam Narrative: EXAM NARRATIVE: Cachectic Const: COMMON NORMALS: no acute distress, patient oriented x3 and alert HENMT: COMMON NORMALS: normocephalic and atraumatic HEAD & SCALP: normocephalic and atraumatic Eye: COMMON NORMALS: Equal, round and reactive pupils present, EOMs intact bilaterally and no scleral icterus PUPIL: Yes Equal, round and reactive pupils present Resp: COMMON NORMALS: normal respiratory effort and No retractions Cardio: COMMON NORMALS: regular rate, regular rhythm and No murmurs present (Cardio) RATE: regular rate RHYTHM: regular rhythm OTHER: Borderline tachycardic GI: COMMON NORMALS: Normal to inspection, nondistended, normoactive bowel sounds present, Soft to palpation and non-tender PALPATION: Yes Soft to palpation OTHER: Suprapubic catheter in place with no surrounding erythema Neuro: COMMON NORMALS: patient oriented x3 SENSORIUM/ORIENTATION: Yes alert Skin: COMMON NORMALS: no rashes or lesions noted GENERAL SKIN EXAM: no rashes or lesions noted Course Vital Signs: Vital signs: Vital Signs Temperature 97.9 F 11/24/24 15:44 Pulse Rate 75 11/24/24 15:44 Respiratory Rate 16 11/24/24 15:44 Blood Pressure 96/58 11/24/24 15:44 Pulse Oximetry 94 11/24/24 18:06 Oxygen Delivery Me thod Room Air 11/24/24 18:06 MDM - Weakness Medical Decision Making Adult male with 1 week of illness, worse overnight with rigors, weakness, vertigo, and vomiting; has suprapubic catheter. Provider suspects infection and is looking for source; recent household cold noted. BP noted low; HR fast. PE shows cachexia, dry mucous membranes, clear lungs, and suprapubic catheter with clean site and good yellow urine output. EKG at 10:23: sinus rhythm, occasional supraventricular premature contractions, rate 96, no ST elevation/depression, no T-wave inversions, QTc 387. Infection vs viral URI discussed. Possible urinary source given suprapubic catheter; prior sepsis risk referenced. Diagnostics planned: urinalysis/culture, blood tests, evaluation of lungs/nose as discussed. IV placed; IV fluids planned. Potential IV antibiotics if infection confirmed. Admit vs discharge contingent on results and clinical status. Urinalysis is indicative of infection and this may be the cause of his symptoms however he also is positive for rhinovirus which could be causing his rigors and general weakness. He will be admitted to the hospital service for further observation and care Lab Data 11/24/24 10:39 11/24/24 10:39 Radiology Impressions Chest X-Ray 11/24/24 10:17 IMPRESSION: Stable chest without acute abnormality. Head CT 11/24/24 10:17 IMPRESSION: 1. No acute intracranial hemorrhage or edema. 2. Mild cerebral and cerebellar atrophy and small vessel disease. 3. Remote lacunar infarcts RIGHT mabry radiata and over the occipital horn. Laboratory Results WBC 5.15 10^3/uL (3.29-11.43) 11/24/24 10:39 RBC 3.30 10^6/uL (3.85-5.65) L 11/24/24 10:39 Hgb 10.60 g/dL (11.27-16.99) L 11/24/24 10:39 Hct 33.1 % (37-53) L 11/24/24 10:39 MCV 100.3 fl (82-101) 11/24/24 10:39 MCH 32.1 pg (27-33) 11/24/24 10:39 MCHC 32.0 g/dL (30-55) 11/24/24 10:39 RDW 14.5 % (12.1-15.1) 11/24/24 10:39 Plt Count 137 10^3/cmm (157-399) L 11/24/24 10:39 MPV 9.8 fL (7.4-10.4) 11/24/24 10:39 Neut % (Auto) 92.2 % 11/24/24 10:39 Lymph % (Auto) 3.1 % 11/24/24 10:39 [place] % (Auto) 3.9 % 11/24/24 10:39 Eos % (Auto) 0.2 % 11/24/24 10:39 Baso % (Auto) 0.4 % 11/24/24 10:39 Neut # (Auto) 4.75 10^3/uL (1.8-7.7) 11/24/24 10:39 Lymph # (Auto) 0.2 10^3/uL (0.8-4.8) L 11/24/24 10:39 Kidder # (Auto) 0.2 10^3/uL (0.2-0.9) 11/24/24 10:39 Eos # (Auto) 0.0 10^3/uL (0.0-0.8) 11/24/24 10:39 Baso # (Auto) 0.0 10^3/uL (0.0-0.1) 11/24/24 10:39 Nucleated RBC % (auto) 0 % 11/24/24 10:39 Nucleated RBCs # 0.0 /100WBC 11/24/24 10:39 Sodium 140 mmol/L (136-145) 11/24/24 10:39 Potassium 3.3 mmol/L (3.5-5.1) L 11/24/24 10:39 Chloride 100 mmol/L (98-107) 11/24/24 10:39 Carbon Dioxide 24 mmol/L (22-29) 11/24/24 10:39 Anion Gap 19.3 (5-19) H 11/24/24 10:39 BUN 15 mg/dL (8-23) 11/24/24 10:39 Creatinine 1.6 mg/dL (0.7-1.2) H 11/24/24 10:39 GFR Calculation Not Reportable 11/24/24 10:39 Glucose 140 mg/dL (65-115) H 11/24/24 10:39 Calculated Osmolality 293 mOsm/kg (285-295) 11/24/24 10:39 Lactic Acid 3.0 mmol/L (0.5-2.2) H 11/24/24 12:05 Calcium 8.7 mg/dL (8.5-10.5) 11/24/24 10:39 Total Bilirubin 0.5 mg/dL (0.15-1.2) 11/24/24 10:39 AST 10 U/L (0-40) 11/24/24 10:39 ALT < 5 U/L (0-41) 11/24/24 10:39 Alkaline Phosphatase 61 U/L (40-130) 11/24/24 10:39 Total Protein 6.5 g/dL (6.6-8.7) L 11/24/24 10:39 Albumin 3.4 g/dL (3.5-5.2) L 11/24/24 10:39 Globulin 3.1 g/dL (1.3-4.6) 11/24/24 10:39 Procalcitonin 11.07 ng/mL (0-0.5) H 11/24/24 10:39 Urine Color Yellow (Yellow) 11/24/24 12:07 Urine Appearance Turbid (CLEAR) A 11/24/24 12:07 Urine pH 8.0 (5-7) A 11/24/24 12:07 Ur Specific [place] 1.012 (1.005-1.030) 11/24/24 12:07 Urine Protein 2+ (Negative) A 11/24/24 12:07 Urine Glucose (UA) Negative (Normal) 11/24/24 12:07 Urine Ketones Negative (Negative) 11/24/24 12:07 Urine Blood 2+ (Negative) A 11/24/24 12:07 Urine Nitrate Positive (Negative) A 11/24/24 12:07 Urine Bilirubin Negative (Negative) 11/24/24 12:07 Urine Urobilinogen 1.0 mg/dL (Negative) 11/24/24 12:07 Ur Leukocyte Esterase 3+ (Negative) A 11/24/24 12:07 Urine RBC 21-50 /hpf (0-2) H 11/24/24 12:07 Urine WBC >100 /hpf (0-5) H 11/24/24 12:07 Ur Squamous Epith Cells 0-5 /hpf (0-5) 11/24/24 12:07 Amorphous Sediment Not Reportable 11/24/24 12:07 Urine Bacteria 4+ /hpf (NONE) H 11/24/24 12:07 Hyaline Casts 95.14 /lpf 11/24/24 12:07 Coarse Granular Casts 5-10 /lpf H 11/24/24 12:07 Adenovirus (PCR) Not detected (NOT DETECT) 11/24/24 11:31 C. pneumoniae DNA (PCR) Not detected (NOT DETECT) 11/24/24 11:31 Coronavirus 229E (PCR) Not detected (NOT DETECT) 11/24/24 11:31 Human Metapneumovir PCR Not detected (NOT DETECT) 11/24/24 11:31 Influenza A (H1) PCR Not detected (NOT DETECT) 11/24/24 11:31 Influ A (H1/09) PCR Not detected (NOT DETECT) 11/24/24 11:31 Influenza A (H3) PCR Not detected (NOT DETECT) 11/24/24 11:31 Influenza Type A (PCR) Not detected (NOT DETECT) 11/24/24 11:31 Influenza Type B (PCR) Not detected (NOT DETECT) 11/24/24 11:31 M. pneumoniae (PCR) Not detected (NOT DETECT) 11/24/24 11:31 Parainfluenza 1 (PCR) Not detected (NOT DETECT) 11/24/24 11:31 Parainfluenza 2 (PCR) Not detected (NOT DETECT) 11/24/24 11:31 Parainfluenza 3 (PCR) Not detected (NOT DETECT) 11/24/24 11:31 Parainfluenza 4 (PCR) Not detected (NOT DETECT) 11/24/24 11:31 RSV Type A (PCR) Not detected (NOT DETECT) 11/24/24 11:31 RSV Type B (PCR) Not detected (NOT DETECT) 11/24/24 11:31 Entero/Rhino (PCR) Detected (NOT DETECT) A 11/24/24 11:31 SARS-CoV-2 (PCR) Not detected (NOT DETECT) 11/24/24 11:31 All radiology interpretation(s) finalized by discharge Discharge Plan Discharge Patient Disposition: Admitted As Inpatient Admit Provider: Soo Solis Clinical Impression: Suspected sepsis, Rhinovirus infection, Suprapubic catheter, Urinary tract infection associated with cystostomy catheter Condition: Stable Coding Level of Care Code ED Statistical Consultant for Gale Callahan
[2024-11-24] MEDS: meropenem 1,000 mg SDV 1000 MG IVP (20:40)
[2024-11-24] MEDS: pantoprazole 40 mg SDV IVP (20:40)
[2024-11-24 21:30] LABS: Free T4 Free Thyroxine 1.20 ng/dL (0.82-1.77); Thyroid Stimulating Hormone 4.58 uIU/mL (0.27-4.20)
--- NOTE | 2024-11-24 22:19 | PC.NURSE ---
suprapubic cath changed. 16F 10ml balloon
[2024-11-24 23:50] LABS: MRSA PCR OZH (swab) NOT DETECTED (Negative)
[2024-11-25] VITALS (10 sets, daily range): BP systolic 107–135; BP diastolic 55–72; PULSE 63–80; RESP 16–18; TEMP 36.7–37; O2SAT 95–99
[2024-11-25] MEDS: ondansetron 2 mg/ML SDV 2 mL 4 MG IVP (01:26)
[2024-11-25 02:54] LABS: Bacteroides fragilis Not Detected (NOT DETECT); Citrobacter Not Detected (NOT DETECT); Cronobacter sakazakii Not Detected (NOT DETECT); Enterobacter non cloacae Not Detected (NOT DETECT); Fusobacterium necrophorum Not Detected (NOT DETECT); Fusobacterium nucleatum Not Detected (NOT DETECT); Klebsiella pneumoniae group Not Detected (NOT DETECT); Morganella morganii Not Detected (NOT DETECT); Pan Candida Not Detected (NOT DETECT); Pan Gram-Positive Not Detected (NOT DETECT); Proteus mirabilis Not Detected (NOT DETECT); Serratia Not Detected (NOT DETECT); Serratia marcescens Not Detected (NOT DETECT); Stenotrophomonas maltophilia Not Detected (NOT DETECT)
[2024-11-25 05:12] LABS: Hematocrit 25.8 % (37-53); Hemoglobin 8.40 g/dL (11.27-16.99); Mean Corpuscular HGB Conc 32.6 g/dL (30-55); Mean Corpuscular Hemoglobin 32.7 pg (27-33); Mean Corpuscular Volume 100.4 fl (82-101); Nucleated Red Blood Cells % 0 %; Platelet Count 106 10^3/cmm (157-399); Red Blood Count 2.57 10^6/uL (3.85-5.65); White Blood Count 6.78 10^3/uL (3.29-11.43)
[2024-11-25] MEDS: ferrous sulfate EC 325 mg Tablet PO ×2 (05:13→16:10)
[2024-11-25] MEDS: metoprolol succinate ER (24 HR) 25 mg Tablet 12.5 MG PO (05:13)
[2024-11-25 05:36] LABS: Procalcitonin 54.43 ng/mL (0-0.5)
[2024-11-25 05:41] LABS: Alanine Aminotransferase < 5 U/L (0-41); Albumin Level 2.7 g/dL (3.5-5.2); Alkaline Phosphatase 47 U/L (40-130); Anion Gap 14.2 (5-19); Aspartate Amino Transferase 8 U/L (0-40); Blood Urea Nitrogen 15 mg/dL (8-23); Calcium 7.6 mg/dL (8.5-10.5); Carbon Dioxide 22 mmol/L (22-29); Chloride 107 mmol/L (98-107); Creatinine Clr Calc Pharmacy 53.9709; Globulin 2.5 g/dL (1.3-4.6); Glucose 149 mg/dL (65-115); Magnesium 1.5 mg/dL (1.7-2.3); Osmolality Calculated 294 mOsm/kg (285-295); Potassium 3.2 mmol/L (3.5-5.1); Sodium 140 mmol/L (136-145); Total Protein 5.2 g/dL (6.6-8.7)
[2024-11-25] MEDS: meropenem 1,000 mg SDV 1000 MG IVP ×2 (09:17→22:13)
--- NOTE | 2024-11-25 10:49 | PC.SOCIAL ---
*IMM* Patient received copy of Important Message from Medicare. Copy Initialed, dated and placed in patient chart.
[2024-11-25] MEDS: magnesium sulfate premix 2 GM/50 ML PIGGYBACK IV (11:12)
[2024-11-25] MEDS: potassium phosphate (mMol PO4) 30 MMOL in sodium chloride 0.9% (100 ml) 100 ML 25 MMOL IV (12:13)
--- NOTE | 2024-11-25 13:37 | P.PN_ITS ---
Subjective 2 Subjective: No acute events overnight. Patient sitting up in bed today. States Ankeney go home. Spouse at bedside. Denies any nausea, vomiting, headache. Vitals/I&O/Wt Last Vital Signs Temp 98.2 F 11/25/24 11:05 Pulse 68 11/25/24 13:26 Resp 16 11/25/24 13:26 BP 135/72 11/25/24 11:05 Pulse Ox 98 11/25/24 13:26 O2 Del Method Room Air 11/25/24 13:26 11/24/24 11/25/24 11/25/24 22:59 06:59 14:59 Intake Total 3063 / 4063 240 / 4303 1238.75 / 1238.75 Output Total 1999 / 1999 800 / 800 Balance 3063 / 4063 -1760 / 2303 438.75 / 438.75 Weight last 48 hrs Weight 80.286 kg Weight 80.428 kg Weight 82.1 kg Physical Exam 2 Narrative: General: No acute distress, AO x3, dehydrated, generally sick appearing HEENT: PERRLA, pupils bilaterally equal and reactive Chest: Normal vesicular breath sounds, no added sounds, equal good air entry bilaterally CVS: S1-S2 regular, no murmurs, no tachycardia, no gallops, no rubs Abdomen: Soft, nontender, no organomegaly, bowel sounds present Neuro: No focal deficits, no facial deformity, AO x3, power 5/5 in all limbs Suprapubic catheter in place, skin around suprapubic catheter healthy no excoriation Data 11/25/24 04:57 11/25/24 04:57 Micro: Microbiology 11/24/24 12:05 Blood Culture - Preliminary Blood NEGATIVE TO DATE 11/24/24 12:15 Urine Culture - Preliminary Urine Suprapubic Gram Negative Rods Gram Negative Rods#2 11/24/24 12:07 Bacterial Antigens - Final Urine Kidney 11/24/24 11:50 Blood Culture - Preliminary Blood A&P Assessment and plan 1. Nausea & vomitin. Diarrhea: 3. Dehydration: 4. TUNG (acute kidney injury): 5. Benign essential HTN: 6. Coronary artery disease involving [place] heart without angina pectoris, unspecified vessel or lesion type: 7. Chronic deep vein thrombosis (DVT) of popliteal vein of left lower extremity: 8. Type 2 diabetes mellitus without complication, without long-term current use of insulin: 9. Suprapubic catheter: 10. Infection with multi-drug resistant microorganisms: 11. Rhinovirus infection: Plan: In 79-year-old gentleman with past medical history of bladder cancer with suprapubic catheter in place, thyroid cancer post thyroidectomy with recurrent UTIs due to multidrug-resistant bacteria's comes to the ER because generalized weakness, nausea vomiting and diarrhea found to have rhinovirus. Found to have hypotension. Finish sepsis bolus of 30 mL/kg body weight. After that continue NS at 75 cc/h. Monitor blood pressures. Goal blood pressure less than 140/90 mmHg with mean over 65. Hold off on antihypertensive. Patient currently on room air. If becomes hypoxic we will plan to start steroids. For now Pulmicort twice daily, ipratropium Xopenex every 6 hour. Follow-up blood culture, urine culture. Check MRSA swab. Check urine bacterial antigen. Empirically start on IV meropenem as per creatinine clearance. If patient remains hemodynamically stable, afebrile without leukocytosis in next 24 to 48 hours will discontinue antibiotics. Replace suprapubic catheter. Physical therapy evaluation. Continue other chronic home medications including carbamazepine, metoclopramide, morphine as needed. Hypertension: Goal blood pressure less than 140/90 mmHg. Holding off on antihypertensive except metoprolol. Chronic DVT: Continue with home dose of Eliquis. Thyroid cancer post thyroidectomy: Recent thyroid peroxidase antibody elevated. Seen to have a thyroid nodule undergoing outpatient evaluation. Repeat thyroid panel. Continue with home dose of levothyroxine. CODE STATUS: Discussed with patient and spouse at bedside. Spouse is DPOA. Full code. Cardiac diet Protonix OPD prophylaxis Eliquis was sufficient for DVT prophylaxis Plan for the day: Renal functions improving. Creatinine down to 1.3. Closer to baseline. Does have hypokalemia, hypocalcemia, hypophosphatemia and hypomagnesemia today. Will replace 2 g of IV magnesium, 30 mmol of potassium phosphate. Start on oral Neutra-Phos daily. Follow-up blood culture and urine culture. Continue with current IV antibiotics for now. NS @75 cc/hr Patient does have thrombocytopenia. Most likely in setting of acute viral infection. Will continue to monitor. Remains on room air. Denies any difficulty in breathing. Continue with Pulmicort,, ipratropium and Xopenex. PDMP PDMP Reviewed: Not Reviewed Attestations 2 Medical Necessity Statement*: Requires further hospitalization for management of generalized weakness, dehydration in setting of rhinovirus infection, complicated UTI in setting of suprapubic catheter, multiple electrolyte abnormality requiring replacement Diagnoses Nausea & vomiting R11.2 Diarrhea R19.7 Diarrhea type: unspecified type Dehydration E86.0 TUNG (acute kidney injury) N17.9 Benign essential HTN I10 Coronary artery disease involving [place] heart without angina pectoris, unspecified vessel or lesion type I25.10 Coronary Disease-Associated Artery/Lesion type: unspecified vessel or lesion type [place] vs. transplanted heart: [place] heart Associated angina: without angina Chronic deep vein thrombosis (DVT) of popliteal vein of left lower extremity I82.532 Affected thrombotic vein of extremity: popliteal Chronicity: chronic Type 2 diabetes mellitus without complication, without long-term current use of insulin E11.9 Diabetes mellitus complication status: without complication Suprapubic catheter Z93.59 Infection with multi-drug resistant microorganisms Rhinovirus infection B34.8
[2024-11-25] MEDS: carBAMazepine XR (12 HR) 100 mg Tablet PO (17:06)
[2024-11-25] MEDS: pantoprazole 40 mg SDV IVP (22:13)
[2024-11-26] VITALS (11 sets, daily range): BP systolic 106–161; BP diastolic 64–80; PULSE 57–93; RESP 16–18; TEMP 36.4–36.8; O2SAT 94–97
[2024-11-26] MEDS: ondansetron 2 mg/ML SDV 2 mL 4 MG IVP ×3 (03:21→18:01)
[2024-11-26 04:55] LABS: Hematocrit 25.0 % (37-53); Hemoglobin 8.30 g/dL (11.27-16.99); Mean Corpuscular HGB Conc 33.2 g/dL (30-55); Mean Corpuscular Hemoglobin 33.1 pg (27-33); Mean Corpuscular Volume 99.6 fl (82-101); Nucleated Red Blood Cells % 0 %; Platelet Count 108 10^3/cmm (157-399); Red Blood Count 2.51 10^6/uL (3.85-5.65); White Blood Count 4.63 10^3/uL (3.29-11.43)
[2024-11-26 05:37] LABS: Alanine Aminotransferase < 5 U/L (0-41); Albumin Level 2.7 g/dL (3.5-5.2); Alkaline Phosphatase 78 U/L (40-130); Anion Gap 15.5 (5-19); Aspartate Amino Transferase 9 U/L (0-40); Blood Urea Nitrogen 13 mg/dL (8-23); Calcium 7.7 mg/dL (8.5-10.5); Carbon Dioxide 20 mmol/L (22-29); Chloride 107 mmol/L (98-107); Creatinine Clr Calc Pharmacy 64.2450; Globulin 2.7 g/dL (1.3-4.6); Glucose 125 mg/dL (65-115); Magnesium 1.8 mg/dL (1.7-2.3); Osmolality Calculated 290 mOsm/kg (285-295); Potassium 3.5 mmol/L (3.5-5.1); Sodium 139 mmol/L (136-145); Total Protein 5.4 g/dL (6.6-8.7)
[2024-11-26] MEDS: metoprolol succinate ER (24 HR) 25 mg Tablet 12.5 MG PO (05:39)
[2024-11-26] MEDS: carBAMazepine XR (12 HR) 100 mg Tablet PO ×2 (05:39→16:17)
[2024-11-26] MEDS: ferrous sulfate EC 325 mg Tablet PO ×2 (05:39→16:17)
[2024-11-26] MEDS: meropenem 1,000 mg SDV 1000 MG IVP ×2 (07:55→21:12)
--- NOTE | 2024-11-26 14:13 | P.PN_ITS ---
Vitals/I&O/Wt Last Vital Signs Temp 97.6 F 11/26/24 12:00 Pulse 68 11/26/24 13:38 Resp 16 11/26/24 13:38 BP 161/80 11/26/24 12:00 Pulse Ox 96 11/26/24 13:38 O2 Del Method Room Air 11/26/24 13:38 11/25/24 11/26/24 11/26/24 22:59 06:59 14:59 Intake Total 1568.75 / 2807.50 960 / 3767.50 1120 / 1120 Output Total 2725 / 3525 1000 / 4525 Balance -1156.25 / -717.50 -40 / -757.50 1120 / 1120 Weight last 48 hrs Weight 81.783 kg Weight 80.286 kg Weight 80.428 kg Data 11/26/24 03:26 11/26/24 03:26 Micro: Microbiology 11/24/24 12:05 Blood Culture - Preliminary Blood NEGATIVE TO DATE A&P Assessment and plan 1. Rhinovirus infection: Conservative measures 2. Infection with multi-drug resistant microorganisms: UTI with 2 gram negative rods. No ID yet. last report 11/25 at 0728 3. Nausea & vomiting: Resolved tolerating diet 4. Diarrhea: 5. Dehydration: 6. TUNG (acute kidney injury): 7. Benign essential HTN: 8. Coronary artery disease involving [place] heart without angina pectoris, unspecified vessel or lesion type: 9. Chronic deep vein thrombosis (DVT) of popliteal vein of left lower extremity: 10. Type 2 diabetes mellitus without complication, without long-term current use of insulin: 11. Suprapubic catheter: Plan: In 79-year-old gentleman with past medical history of bladder cancer with suprapubic catheter in place, thyroid cancer post thyroidectomy with recurrent UTIs due to multidrug-resistant bacteria's comes to the ER because generalized weakness, nausea vomiting and diarrhea found to have rhinovirus. As well as another UTI. Patient treated for sepsis per protocol. This is now resolved. Patient has not been on IV meropenem as per creatinine clearance. Questionable suprapubic catheter replaced? Patient has 2 gram-negative rods growing I just spoke with micro. 1 is an Enterobacter cloacae which is sensitive to everything but nitrofurantoin. The other does appear to have resistance and that is being worked up further. Physical therapy evaluation. Continue other chronic home medications including carbamazepine, metoclopramide, morphine as needed. Hypertension: metoprolol on hold. Chronic DVT: Continue with home dose of Eliquis. Thyroid cancer post thyroidectomy: Recent thyroid peroxidase antibody elevated. Seen to have a thyroid nodule undergoing outpatient evaluation. Continue with home dose of levothyroxine. CODE STATUS: Discussed with patient and spouse at bedside. Spouse is DPOA. Full code. Cardiac diet Protonix OPD prophylaxis Eliquis was sufficient for DVT prophylaxis Plan for the day: Renal functions improving. Creatinine down to 1.3. Closer to baseline. Patient had multiple electrolyte disturbances yesterday and replaced accordingly. He was also started on Neutra-Phos daily. Potassium still at 3.5 today given a dose of oral potassium. Checking BMP this afternoon and repeat in the morning Patient requesting to go home. However due to the urine culture not reported yet I need to make sure he would be sensitive to the antibiotics as he has a history antibiotic resistance. Patient does have thrombocytopenia. Most likely in setting of acute viral infection. Will continue to monitor. PDMP PDMP Reviewed: Not Reviewed Attestations 2 Medical Necessity Statement*: Patient requires continued hospitalization for abnormal electrolytes as well as awaiting culture results since patient has history of antibiotic resistance to his urinary tract infections. Coding Level of Care Code Acute Code for Chg Fwd Diagnoses Rhinovirus infection B34.8 Infection with multi-drug resistant microorganisms Nausea & vomiting R11.2 Diarrhea R19.7 Diarrhea type: unspecified type Dehydration E86.0 TUNG (acute kidney injury) N17.9 Benign essential HTN I10 Coronary artery disease involving [place] heart without angina pectoris, unspecified vessel or lesion type I25.10 Associated angina: without angina Coronary Disease-Associated Artery/Lesion type: unspecified vessel or lesion type [place] vs. transplanted heart: [place] heart Chronic deep vein thrombosis (DVT) of popliteal vein of left lower extremity I82.532 Affected thrombotic vein of extremity: popliteal Chronicity: chronic Type 2 diabetes mellitus without complication, without long-term current use of insulin E11.9 Diabetes mellitus complication status: without complication Suprapubic catheter Z93.59
[2024-11-26 15:59] LABS: Anion Gap 13.8 (5-19); Blood Urea Nitrogen 11 mg/dL (8-23); Calcium 7.8 mg/dL (8.5-10.5); Carbon Dioxide 20 mmol/L (22-29); Chloride 110 mmol/L (98-107); Creatinine Clr Calc Pharmacy 58.8913; Glucose 111 mg/dL (65-115); Osmolality Calculated 290 mOsm/kg (285-295); Potassium 3.8 mmol/L (3.5-5.1); Sodium 140 mmol/L (136-145)
[2024-11-27] VITALS (7 sets, daily range): BP systolic 138–156; BP diastolic 63–84; PULSE 59–73; RESP 16–17; TEMP 36.4–36.8; O2SAT 95–98
[2024-11-27] MEDS: carBAMazepine XR (12 HR) 100 mg Tablet PO (04:25)
[2024-11-27] MEDS: metoprolol succinate ER (24 HR) 25 mg Tablet 12.5 MG PO (04:26)
[2024-11-27] MEDS: ferrous sulfate EC 325 mg Tablet PO (04:26)
[2024-11-27 05:52] LABS: Hematocrit 28.3 % (37-53); Hemoglobin 9.00 g/dL (11.27-16.99); Mean Corpuscular HGB Conc 31.8 g/dL (30-55); Mean Corpuscular Hemoglobin 32.6 pg (27-33); Mean Corpuscular Volume 102.5 fl (82-101); Nucleated Red Blood Cells % 0 %; Platelet Count 123 10^3/cmm (157-399); Red Blood Count 2.76 10^6/uL (3.85-5.65); White Blood Count 3.47 10^3/uL (3.29-11.43)
[2024-11-27 06:13] LABS: Magnesium 1.7 mg/dL (1.7-2.3)
[2024-11-27 06:18] LABS: Alanine Aminotransferase < 5 U/L (0-41); Albumin Level 3.1 g/dL (3.5-5.2); Alkaline Phosphatase 55 U/L (40-130); Anion Gap 14.7 (5-19); Aspartate Amino Transferase 8 U/L (0-40); Blood Urea Nitrogen 10 mg/dL (8-23); Calcium 7.7 mg/dL (8.5-10.5); Carbon Dioxide 21 mmol/L (22-29); Chloride 109 mmol/L (98-107); Creatinine Clr Calc Pharmacy 70.6234; Globulin 2.4 g/dL (1.3-4.6); Glucose 106 mg/dL (65-115); Osmolality Calculated 291 mOsm/kg (285-295); Potassium 3.7 mmol/L (3.5-5.1); Sodium 141 mmol/L (136-145); Total Protein 5.5 g/dL (6.6-8.7)
[2024-11-27] MEDS: meropenem 1,000 mg SDV 1000 MG IVP (09:06)
--- NOTE | 2024-11-27 10:12 | P.DS_ITS ---
Discharge Providers Date of Admission: 11/24/24 14:55 Date of Discharge: November 27, 2024 Attending Provider at Admission: Soo Solis MD Attending Provider at Discharge: Albino Westbrook DO Primary Care Provider: Jaonn Knowles DO Diagnoses at Discharge Discharge Diagnosis 1. Rhinovirus infection: 2. Infection with multi-drug resistant microorganisms: 3. Nausea & vomitin. Diarrhea: 5. Dehydration: 6. TUNG (acute kidney injury): 7. Benign essential HTN: 8. Coronary artery disease involving viejas heart without angina pectoris, unspecified vessel or lesion type: 9. Chronic deep vein thrombosis (DVT) of popliteal vein of left lower extremity: 10. Type 2 diabetes mellitus without complication, without long-term current use of insulin: 11. Suprapubic catheter: Reason for Visit Reason for Visit: Dizzy N/V Vizion Blurry Brief History: Charlie Jacobs is a 79 year old male with past medical history of prostatic cancer, obstructive uropathy treated with suprapubic catheter, papillary thyroid carcinoma post thyroidectomy, history of DVT, COPD, hypertension presents the ER today because of generalized weakness, nausea, tiredness and diarrhea worsening over 2 days. In the ER he was found to have rhinovirus. Suprapubic catheter was last changed on 11/17. As per patient's oral intake is decreasing. Hospital Course Hospital Course Patient was found to have rhinovirus and medically supported. Patient was given IV fluids his nausea and vomiting was treated with appropriate medications. He had abnormal electrolytes which were replenished. His acute kidney injury responded with fluids. His diet was increased over the course of a couple of days. Urinalysis with culture was done and found to be abnormal. He grew 2 gram- negative rods 1 was Enterobacter and which was mostly sensitive. The Citrobacter was multidrug-resistant with being sensitive to Bactrim and levofloxacin. He will be discharged home on Levaquin as well as electrolyte replacements with follow-up labs this week. Patient will be discharged in stable and improved condition today. Physical Exam Narrative: Improved condition today. He is bright and alert sitting in a chair. He states he is feeling much better today Heart with soft systolic murmur Lungs clear to auscultation but diminished Abdomen: Soft, nontender, no organomegaly, bowel sounds present Extremities no clubbing cyanosis edema Discharge Data Studies Completed and Pending Completed Studies During Hospitalization Category Date Time Status CT head wo con* [id number] Stat Cat Scan 11/24/24 10:17 Completed XR chest 1V portable [id number] Stat Exams 11/24/24 10:17 Completed Pending at discharge Category Date Time Status Blood Culture Stat Lab 11/24/24 11:50 Results Radiology Impressions Chest X-Ray 11/24/24 10:17 IMPRESSION: Stable chest without acute abnormality. Head CT 11/24/24 10:17 IMPRESSION: 1. No acute intracranial hemorrhage or edema. 2. Mild cerebral and cerebellar atrophy and small vessel disease. 3. Remote lacunar infarcts RIGHT mabry radiata and over the occipital horn. Laboratory Results WBC 3.47 10^3/uL (3.29-11.43) 11/27/24 05:24 RBC 2.76 10^6/uL (3.85-5.65) L 11/27/24 05:24 Hgb 9.00 g/dL (11.27-16.99) L 11/27/24 05:24 Hct 28.3 % (37-53) L 11/27/24 05:24 MCV 102.5 fl (82-101) H 11/27/24 05:24 MCH 32.6 pg (27-33) 11/27/24 05:24 MCHC 31.8 g/dL (30-55) 11/27/24 05:24 RDW 14.6 % (12.1-15.1) 11/27/24 05:24 Plt Count 123 10^3/cmm (157-399) L 11/27/24 05:24 MPV 10.7 fL (7.4-10.4) H 11/27/24 05:24 Neut % (Auto) 70.8 % 11/27/24 05:24 Lymph % (Auto) 15.9 % 11/27/24 05:24 Stephens % (Auto) 10.7 % 11/27/24 05:24 Eos % (Auto) 1.7 % 11/27/24 05:24 Baso % (Auto) 0.6 % 11/27/24 05:24 Neut # (Auto) 2.46 10^3/uL (1.8-7.7) 11/27/24 05:24 Lymph # (Auto) 0.6 10^3/uL (0.8-4.8) L 11/27/24 05:24 Stephens # (Auto) 0.4 10^3/uL (0.2-0.9) 11/27/24 05:24 Eos # (Auto) 0.1 10^3/uL (0.0-0.8) 11/27/24 05:24 Baso # (Auto) 0.0 10^3/uL (0.0-0.1) 11/27/24 05:24 Nucleated RBC % (auto) 0 % 11/27/24 05:24 Nucleated RBCs # 0.0 /100WBC 11/27/24 05:24 Sodium 141 mmol/L (136-145) 11/27/24 05:24 Potassium 3.7 mmol/L (3.5-5.1) 11/27/24 05:24 Chloride 109 mmol/L (98-107) H 11/27/24 05:24 Carbon Dioxide 21 mmol/L (22-29) L 11/27/24 05:24 Anion Gap 14.7 (5-19) 11/27/24 05:24 BUN 10 mg/dL (8-23) 11/27/24 05:24 Creatinine 1.0 mg/dL (0.7-1.2) 11/27/24 05:24 GFR Calculation Not Reportable 11/27/24 05:24 Glucose 106 mg/dL (65-115) 11/27/24 05:24 POC Glucose 155 mg/dL (70-110) H 11/26/24 16:20 Calculated Osmolality 291 mOsm/kg (285-295) 11/27/24 05:24 Lactic Acid 3.0 mmol/L (0.5-2.2) H 11/24/24 12:05 Lactic Acid (Sepsis) 1.7 mmol/L (0.5-2.2) 11/24/24 15:07 Calcium 7.7 mg/dL (8.5-10.5) L 11/27/24 05:24 Phosphorus 2.3 mg/dL (2.5-4.5) L 11/27/24 05:24 Magnesium 1.7 mg/dL (1.7-2.3) 11/27/24 05:24 Total Bilirubin 0.4 mg/dL (0.15-1.2) 11/27/24 05:24 AST 8 U/L (0-40) 11/27/24 05:24 ALT < 5 U/L (0-41) 11/27/24 05:24 Alkaline Phosphatase 55 U/L (40-130) 11/27/24 05:24 Total Protein 5.5 g/dL (6.6-8.7) L 11/27/24 05:24 Albumin 3.1 g/dL (3.5-5.2) L 11/27/24 05:24 Globulin 2.4 g/dL (1.3-4.6) 11/27/24 05:24 Folate 18.4 ng/mL (4.5-32.2) 11/25/24 04:57 Procalcitonin 54.43 ng/mL (0-0.5) H 11/25/24 04:57 TSH 4.58 uIU/mL (0.27-4.20) H 11/24/24 10:39 Free T4 1.20 ng/dL (0.82-1.77) 11/24/24 10:39 Urine Color Yellow (Yellow) 11/24/24 12:07 Urine Appearance Turbid (CLEAR) A 11/24/24 12:07 Urine pH 8.0 (5-7) A 11/24/24 12:07 Ur Specific Valier 1.012 (1.005-1.030) 11/24/24 12:07 Urine Protein 2+ (Negative) A 11/24/24 12:07 Urine Glucose (UA) Negative (Normal) 11/24/24 12:07 Urine Ketones Negative (Negative) 11/24/24 12:07 Urine Blood 2+ (Negative) A 11/24/24 12:07 Urine Nitrate Positive (Negative) A 11/24/24 12:07 Urine Bilirubin Negative (Negative) 11/24/24 12:07 Urine Urobilinogen 1.0 mg/dL (Negative) 11/24/24 12:07 Ur Leukocyte Esterase 3+ (Negative) A 11/24/24 12:07 Urine RBC 21-50 /hpf (0-2) H 11/24/24 12:07 Urine WBC >100 /hpf (0-5) H 11/24/24 12:07 Ur Squamous Epith Cells 0-5 /hpf (0-5) 11/24/24 12:07 Amorphous Sediment Not Reportable 11/24/24 12:07 Urine Bacteria 4+ /hpf (NONE) H 11/24/24 12:07 Hyaline Casts 95.14 /lpf 11/24/24 12:07 Coarse Granular Casts 5-10 /lpf H 11/24/24 12:07 Nasal MRSA (PCR) Not detected (Negative) 11/24/24 22:25 Adenovirus (PCR) Not detected (NOT DETECT) 11/24/24 11:31 C. pneumoniae DNA (PCR) Not detected (NOT DETECT) 11/24/24 11:31 Coronavirus 229E (PCR) Not detected (NOT DETECT) 11/24/24 11:31 Human Metapneumovir PCR Not detected (NOT DETECT) 11/24/24 11:31 Influenza A (H1) PCR Not detected (NOT DETECT) 11/24/24 11:31 Influ A (H1/09) PCR Not detected (NOT DETECT) 11/24/24 11:31 Influenza A (H3) PCR Not detected (NOT DETECT) 11/24/24 11:31 Influenza Type A (PCR) Not detected (NOT DETECT) 11/24/24 11:31 Influenza Type B (PCR) Not detected (NOT DETECT) 11/24/24 11:31 M. pneumoniae (PCR) Not detected (NOT DETECT) 11/24/24 11:31 Parainfluenza 1 (PCR) Not detected (NOT DETECT) 11/24/24 11:31 Parainfluenza 2 (PCR) Not detected (NOT DETECT) 11/24/24 11:31 Parainfluenza 3 (PCR) Not detected (NOT DETECT) 11/24/24 11:31 Parainfluenza 4 (PCR) Not detected (NOT DETECT) 11/24/24 11:31 RSV Type A (PCR) Not detected (NOT DETECT) 11/24/24 11:31 RSV Type B (PCR) Not detected (NOT DETECT) 11/24/24 11:31 Entero/Rhino (PCR) Detected (NOT DETECT) A 11/24/24 11:31 SARS-CoV-2 (PCR) Not detected (NOT DETECT) 11/24/24 11:31 Vitals Last Vital Signs Temp 98.2 F 11/27/24 07:34 Pulse 66 11/27/24 07:52 Resp 16 11/27/24 07:52 BP 156/69 11/27/24 07:34 Pulse Ox 98 11/27/24 07:52 O2 Del Method Room Air 11/27/24 07:52 O2 Flow Rate 3 11/26/24 17:45 Discharge Plan Discharge Patient Disposition: Home Condition: Stable Prescriptions: New magnesium oxide 400 mg (241.3 mg magnesium) Tablet 400 mg PO BID Qty: 60 0RF levofloxacin 500 mg tablet 500 mg PO DAILY 5 Days Qty: 5 0RF Continued aspirin 81 mg tablet,delayed release (DR/EC) 81 mg PO DAILY (DME) nebulizer with tubing See Rx Instructions .Route .MEDSUPPLY Qty: 1 0RF Rx Instructions: As directed ipratropium-albuterol 0.5 mg-3 mg(2.5 mg base)/3 mL solution for nebulization 3 ml inhalation Q6H PRN (Reason: wheezing) Qty: 90 0RF docusate sodium 100 mg capsule 100 mg PO DAILY PRN (Reason: constipation) Qty: 60 0RF lorazepam 1 mg tablet 1 mg PO DAILY PRN (Reason: Anxiety) triamcinolone acetonide 55 mcg aerosol,spray 2 spray intranasal DAILY Rx Instructions: administer into each nostril montelukast 10 mg tablet 10 mg PO DAILY Qty: 90 1RF trazodone 100 mg tablet 100 mg PO QPM Qty: 90 1RF (DME) Walker See Rx Instructions .ROUTE .MEDSUPPLY Qty: 1 0RF Rx Instructions: As directed PreserVision AREDS 2 Plus MV 200 mcg-15 mcg- 5 mg-1 mg capsule 1 cap PO DAILY Trelegy Ellipta 100-62.5-25 mcg blister with device 1 ea INHALATION DAILY Qty: 60 5RF triamcinolone acetonide 0.1 % cream 1 applic topical BID Qty: 454 0RF (DME) blood-glucose meter Misc See Rx Instructions .MEDSUPPLY Qty: 1 0RF Rx Instructions: As directed (DME) Blood Glucose Test Strip See Rx Instructions .MEDSUPPLY Qty: 50 11RF Rx Instructions: Twice daily (DME) lancets 25 gauge misc See Rx Instructions .MEDSUPPLY Qty: 100 5RF Rx Instructions: Test twice daily cholecalciferol (vitamin D3) 50 mcg (2,000 unit) capsule 50 mcg PO DAILY Qty: 90 1RF rosuvastatin 40 mg tablet 40 mg PO BEDTIME Qty: 90 1RF levothyroxine 175 mcg tablet See Rx Instructions .ROUTE .COMPLEX Qty: 90 1RF Dose Instruction: TAKE 1 TABLET BY MOUTH EVERY DAY thursday through thursday. take 1/2 tablet BY MOUTH ON thursday, SKIP thursday Rx Instructions: TAKE 1 TABLET BY MOUTH EVERY DAY thursday through thursday. Skip thursday, and thursday morphine 30 mg tablet 30 mg PO Q6H PRN (Reason: pain) 22 Days Qty: 90 0RF Patient Comments: Patient takes one at bedtime only unless needed (DME) catheter bags See Rx Instructions .Route .MEDSUPPLY Qty: 4 5RF Rx Instructions: As directed Xtandi 80 mg tablet 80 mg PO DAILY Qty: 30 0RF Eliquis 5 mg tablet 5 mg PO BID Qty: 90 1RF ondansetron HCl 8 mg tablet 8 mg PO Q8H PRN (Reason: Nausea And Vomiting) Qty: 60 0RF polyethylene glycol 3350 [Miralax] 17 gram powder in packet 17 g PO DAILY Qty: 30 0RF loratadine [Claritin] 10 mg Tablet 10 mg PO QPM acetaminophen [Tylenol Extra Strength] 500 mg Tablet 500 mg PO BEDTIME PRN (Reason: Fever Or Pain) Probiotic 20 billion cell Capsule 20,000 mmu cells PO DAILY Rx Instructions: administer with a meal metoprolol succinate 25 mg tablet extended release 24 hr 12.5 mg PO QAM famotidine [Pepcid] 40 mg tablet 40 mg PO BID metoclopramide HCl [Reglan] 5 mg tablet 5 mg PO TID folic acid 1 mg Tablet 1 mg PO BID Qty: 30 1RF ferrous sulfate 325 mg (65 mg iron) tablet 325 mg PO BID Qty: 60 1RF Renacidin 1,980.6 mg-59.4 mg-980.4mg/30mL solution See Rx Instructions .ROUTE .COMPLEX Rx Instructions: USE DIRECTED PER instruction sheet carbamazepine [Tegretol XR] 100 mg tablet extended release 12 hr See Rx Instructions .ROUTE .COMPLEX Rx Instructions: TAKE 1 TABLET BY MOUTH TWICE DAILY Januvia 50 mg tablet 50 mg PO QAM calcium carbonate-vitamin D3 [Calcium + D] 600 mg-5 mcg (200 unit) Tablet 1 tab PO DAILY Developmental Services Worker OK for DC: Hospitalist Discharge Order = DC NOW: Discharge Order (Routine); Ordered 11/27/24 Ordered By: Albino Westbrook Other Ambulatory Orders: Basic Metabolic Panel (Routine) Timeframe: 1 Week Facility: [facility] - Location: Lab - Main Lab Ordered By: Albino Westbrook Magnesium (Routine) Timeframe: 1 Week Facility: [facility] - Location: Lab - Main Lab Ordered By: Albino Westbrook Phosphorus (Routine) Timeframe: 1 Week Facility: [facility] - Location: Lab - Main Lab Ordered By: Albino Westbrook Referrals: Joann Knowles DO [Primary Care Provider, [facility]] Discharge Diet: Advance as tolerated Discharge Activity: Increase activity as tolerated Patient Instructions: Opioid Safety, Patient Portal & Dionte Instructions Discharge Attestations Time Spent in Discharge Care*: less than 30 min Quality Metrics Clinical Quality Measures [ No reported AMI, CVA or VTE this stay] Coding Level of Care Code Acute Code for Chg Fwd Diagnoses Rhinovirus infection B34.8 Infection with multi-drug resistant microorganisms Nausea & vomiting R11.2 Diarrhea R19.7 Diarrhea type: unspecified type Dehydration E86.0 TUNG (acute kidney injury) N17.9 Benign essential HTN I10 Coronary artery disease involving viejas heart without angina pectoris, unspecified vessel or lesion type I25.10 Coronary Disease-Associated Artery/Lesion type: unspecified vessel or lesion type [place] vs. transplanted heart: viejas heart Associated angina: without angina Chronic deep vein thrombosis (DVT) of popliteal vein of left lower extremity I82.532 Affected thrombotic vein of extremity: popliteal Chronicity: chronic Type 2 diabetes mellitus without complication, without long-term current use of insulin E11.9 Diabetes mellitus complication status: without complication Suprapubic catheter Z93.59
--- NOTE | 2024-11-27 13:51 | PC.NURSE ---
Discharge paperwork discussed with patient and . Prescriptions for lab works given to and placed in patient care folder. This nurse explained that labs needed to be drawn in one week and to follow up with Dr. Knowles in two weeks. Patient and acknowledged and repeated order. IV line removed, CDI. Patient was taken to exit with all belongings, via wheelchair, escorted by ANGEL Del Valle.
--- OUTSIDE RECORDS SUMMARY | 2024-11-30 06:00 | XMS_ITS ---
Author Organization [facility], [facility] Address [address] [place] [address] Care Team Providers Care Green Prize Packer Name Role Phone Katelin WYATT, Jose Primary Care Provider Unavailab LYDIA Malave Unavailable [phone] Jong Hercules Unavailable [phone] Allergies Allergen (clinical drug ingredient) Drug/Non Drug Allergy documented on EMR Reaction Allergy Type Onset Date Status vancomycin Vancomycin hives Drug Allergy Activ e REASON FOR VISIT 3 mo fu w/PSA Medications Medication SIG (Take, Route, Frequency, Duration) Notes Start Date End Date Status Cetirizine HCl 10 MG 1 tablet Orally Onc e a day Active carBAMazepine ER 100 MG 1 tablet Orally Twice a day Active Abiraterone Acetate 500 MG 2 tablets Ora lly Once a day Active Promethazine HCl 6.25 MG/5ML 10 mL as needed Orally every 6 hrs Active Zoladex 10.8 MG as directed Subcutaneous Active Meclizine HCl Active Flonase Active predniSONE 5 MG 1 tablet Orally Once a day Active Triamcinolone (oint)-Silicone Active Mupirocin 2 % 1 application Externally Twice a day Active Finasteride 5 MG 1 tablet Orally Once a day; Duration: 90 days 05/17/2024 05/12/2025 Active Prochlorperazine Act luis glipiZIDE 2.5 MG 1 tablet 30 minutes before breakfast Orally Once a day Active Esomeprazole Magnesium 40 MG 1 capsule Orally Once a day Active Metoprolol Succinate ER 25 MG 1 tablet Orally Once a day Active Aspirin 81 81 MG 1 tablet Orally Once a day Active PreserVision AREDS 2 Active Fluconazole 100 MG 1 tablet Orally Active Famotidine 20 MG 1 tablet at bedtime as needed Orally twice a day 40mg Active Renacidin - 60mL Irrigation corey y; Duration: 30 days 10/17/2024 12/15/2024 Active Levothyroxine Sodium 175 MCG 1 tablet in the morning on an empty stomach Orally Once a day Active Januvia 100 MG 1 tablet Orally Once a day 50mg Active Montelukast Sodium 10 MG 1 tablet Orally Once a day Active Metoclopramide HCl 5 MG 1 tablet before meals Orally Twice a day Active Eliquis 5 MG 1 tablet Orally Twic e a day Active LORazepam 2 MG/ML 1 mL as needed Orall y Twice a day Active Rosuvastatin Calcium 40 MG 1 tablet Oral ly Once a day Active Probiotic Active Xgeva 120 MG/1.7ML as directed Subcutaneous Active Nitroglycerin prn Active Tylenol Active Claritin Active Ondansetron 8 MG 1 tablet on the tong ue and allow to dissolve as needed Orally Once a day Active Morphine Sulfate 15 MG 1 tablet as needed Orally every 6 hrs As needed Active traZODone HCl 50 MG 1 tablet at bedtime as needed Orally Once a day Active Xtandi Active Calcium Active Ipratropium Mchenry Active Tamsulosin HCl 0.4 MG 1 capsule Orally O nce a day Active Vitamin D Active Ferrous Sulfate 325 (65 Fe) MG 1 tablet Orally Three times a Week 11/30/2024 Active levoFLOXacin 500 MG 1 tablet Orally Once a day 11/30/2024 Active Folic Acid 1 MG 1 tablet Orally Once a day Active Trelegy Ellipta 100-62.5-25 MCG/ACT 1 puff [...] ages 21-60 Vital Signs Blood pressure systolic 105 mm Hg 12/01/19 25 Blood pressure diastolic 71 mm Hg 025 Heart Rate 79 /min 11/30/2024 Height 75 in 11/30/2024 Weight 181 lbs 11/30/2024 BMI 22.62 kg/m2 11/30/2024 Height-cm 190.5 cm 11/30/2024 Weight-kg 82.1 kg 11/30/2024 Encounters Encounter Location Date Provider Diagnosis [facility] [place] [address] [place] [address] 11/30/2024 Jong Hercules Urinary retention R3 3.9 ; Prostate cancer C61 ; Metastatic adenocarcinoma to prostate C79.82 ; History of orchiectomy, 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 ; S/P radiation therapy Z92.3 and Encounter for attention to cystostomy Z43.5 Assessments Encounter Date Diagnosis (ICD Code) Assessment Notes Treatment Notes Treatment Clinical Notes Section Notes 11/30/2024 Urinary retention (ICD-10 - R33.9) We discussed previous office visit with Dr. Menjivar where patient was needed to have dilation up to 16 Liberian and a 16 Liberian suprapubic tube back into the bladder under direct cystoscopic visualization and did have some prostate blockage but otherwise his urethra was patent also with no pathology within the bladder. We will continue with now 4 week suprapubic tube changes here at our office. Continue prostate cancer surveillance given todays PSA elevation to 7.2. He is scheduled to return back for SPT change soon, and he was instructed to repeat this PSA given recent infection. For now, and through shared decision making we are in agreement with no further workup or intervention at this time with care plan, aside from what was mentioned. Patient has no other voiced concerns or questions. Patient satisfied with plan. 11/30/2024 Prostate cancer (ICD-10 - C61) We discussed previous office visit with Dr. Menjivar where patient was needed to have dilation up to 16 Liberian and a 16 Liberian suprapubic tube back into the bladder under direct cystoscopic visualization and did have some prostate blockage but otherwise his urethra was patent also with no pathology within the bladder. We will continue with now 4 week suprapubic tube changes here at our office. Continue prostate cancer surveillance given todays PSA elevation to 7.2. He is scheduled to return back for SPT change soon, and he was instructed to repeat this PSA given recent infection. For now, and through shared decision making we are in agreement with no further workup or intervention at this time with care plan, aside from what was mentioned. Patient has no other voiced concerns or questions. Patient satisfied with plan. 11/30/2024 Metastatic adenocarcinoma to prostate (ICD-10 - C79.82) We discussed previous office visit with Dr. Menjivar where patient was needed to have dilation up to 16 Liberian and a 16 Liberian suprapubic tube back into the bladder under direct cystoscopic visualization and did have some prostate blockage but otherwise his urethra was patent also with no pathology within the bladder. We will continue with now 4 week suprapubic tube changes here at our office. Continue prostate cancer surveillance given todays PSA elevation to 7.2. He is scheduled to return back for SPT change soon, and he was instructed to repeat this PSA given recent infection. For now, and through shared decision making we are in agreement with no further workup or intervention at this time with care plan, aside from what was mentioned. Patient has no other voiced concerns or questions. Patient satisfied with plan. 11/30/2024 History of orchiectomy, bilateral (ICD-10 - Z90.79) We discussed previous office visit with Dr. Menjivar where patient was needed to have dilation up to 16 Liberian and a 16 Liberian suprapubic tube back into the bladder under direct cystoscopic visualization and did have some prostate blockage but otherwise his urethra was patent also with no pathology within the bladder. We will continue with now 4 week suprapubic tube changes here at our office. Continue prostate cancer surveillance given todays PSA elevation to 7.2. He is scheduled to return back for SPT change soon, and he was instructed to repeat this PSA given recent infection. For now, and through shared decision making we are in agreement with no further workup or intervention at this time with care plan, aside from what was mentioned. Patient has no other voiced concerns or questions. Patient satisfied with plan. 11/30/2024 S/P radiation therapy (ICD-10 - Z92.3) We discussed previous office visit with Dr. Menjivar where patient was needed to have dilation up to 16 Liberian and a 16 Liberian suprapubic tube back into the bladder under direct cystoscopic visualization and did have some prostate blockage but otherwise his urethra was patent also with no pathology within the bladder. We will continue with now 4 week suprapubic tube changes here at our office. Continue prostate cancer surveillance given todays PSA elevation to 7.2. He is scheduled to return back for SPT change soon, and he was instructed to repeat this PSA given recent infection. For now, and through shared decision making we are in agreement with no further workup or intervention at this time with care plan, aside from what was mentioned. Patient has no other voiced concerns or questions. Patient satisfied with plan. 11/30/2024 Encounter for attention to cystostomy (ICD-10 - Z43.5) We discussed previous office visit with Dr. Menjivar where patient was needed to have dilation up to 16 Liberian and a 16 Liberian suprapubic tube back into the bladder under direct cystoscopic visualization and did have some prostate blockage but otherwise his urethra was patent also with no pathology within the bladder. We will continue with now 4 week suprapubic tube changes here at our office. Continue prostate cancer surveillance given todays PSA elevation to 7.2. He is scheduled to return back for SPT change soon, and he was instructed to repeat this PSA given recent infection. For now, and through shared decision making we are in agreement with no further workup or intervention at this time with care plan, aside from what was mentioned. Patient has no other voiced concerns or questions. Patient satisfied with plan. Plan Of Treatment Pending Test Test Name Order Date PSA-Diagnostic 11/30/2024 Next Appt Details Follow Up: as scheduled with PSA, Reason: Provider Name:Jong Hercules, 12/15/2024 01:20:00 PM, [address] [place], [address], Progress Notes * ANNAMARIA JACOBS RDOB:[birth year] (79 yo M)Acc No.[id number]:11/30/2024 Progress Notes Patient: ANNAMARIA TOPETE Provider: Roby Hercules APRN :1945 A ge:79 Y S ex:Male Date:11/30/2024 Address:[address] [place], [place] [id number] Pcp:Jose Thomason MD Subjective: * Chief Complaints: * 1 . 3 mo fu w/PSA. * HPI: M igrated HPI: Mr. Jacobs is a 79-yo male with hematuria and h/o prostate cancer s/p bilateral orchiectomy, then radiation and chemo by Dr. Jewell. Previous patient of Dr. Gould. He states his PSA stays between 4.5-5.6. He is a former smoker. He also has a h/o thyroid cancer. He was seen at [facility] on 02/28/23 c/o hematuria x2 weeks. CT a/p revealed no acute findings, sclerotic bone lesions, and avascular necrosis of R femoral head. He had a chronic appearing bladder wall thickening, siimple cyst of L kidney measuring 5.5, and a 2 mm nonobstructing stone in L kidney. No hydronephrosis. Kaur placed with high urine output for 2 weeks then removed at [facility]. He initially could not void in the clinic, he went home and started voiding small amounts later that night . He reported urgency and nocturia x3. IPSS [...] able to dribble. Patient was seen at [facility] on 09/19/2023 with complaint of penile [...] up, and patient underwent cystolitholapaxy on 03/09/24. Dr. Menjivar saw patient on 05/31/24 with concerns for clogged SPT as it was a 10fr kaur due to all that an outside ER could place. Cystoscopy performed and dilated up to 16 fr. He was instructed to gain q 3 week SPT changes and return care in 4 months for symptom reassessment and SPT change. He notes to still be seeing cancer treatment center in . He is no longer on finasteride as mentioned. PSA appears fairly stable compared to corrected PSA last checked while on finasteride. PSA most recently of 4.94 and instructed to repeat this for todays office visit. PSA drawn on 11/10/24 resulting at 7.2. He was in the hospital after last SPT change in hospital for UTI. He is doing alot better. Discharged on 11/27/24 with levaquin. Otherwise, his only concern is continued clogged SPT changes but has been started on Renacidin irrigation to help with this. Denies fevers or chills. I ncontinence: Urinary Incontinence A ssessment: A bsent Has SPT tube.? * ROS: G eneral / Constitutional: Patient denies chills, fever, change in appetite. A&O Gastrointestinal: Patient denies abdominal pain, nausea, vomiting, diarrhea. Genitourinary: Comments See HPI for details. * Medical History: P neumonia, Arthritis, Bladder infections, Diabetes, Prostate cancer, Hernia, Hernia, Back Trouble, High Blood Pressure, Hematuria, COPD, LUTS, Bone cancer. * Surgical History: L eft Knee Replacement 02/2004, Right Knee Replacement 09/2012, Orchiectomy 04/2017, Back Surgery 02/2020. * Hospitalization/Major Diagno stic Procedure: S ee Prior sx hx , Hosp in [place] for UTI for four days 11/2024. * Family History: F ather: 69 yrs, diagnosed with Heart disease. M other: 89 yrs, diagnosed with Other malignant neoplasm without specification of site. * Social History: T obacco Use: T obacco Control (Standard) T obacco use: F ormer smoker, H ow long has it been since you last smoked? 1 -5 years. D rug/Alcohol: D rugs H ave you used drugs other than those for medical reasons in the past 12 months??No. D o you smoke marijuana?: Denies. AUDIT-C (Standard) D id you have a drink containing alcohol in the past year? N o, P oints 0 , I nterpretation N egative. S moking history - ages 9 -77 yrs old ETOH - ages 21-60. * Medications: T aking Ferrous Sulfate 325 (65 Fe) MG Tablet 1 tablet Orally Three times a Week , Taking levoFLOXacin 500 MG Tablet 1 tablet Orally Once a day , Taking Folic Acid 1 MG Tablet 1 tablet Orally Once a day , Taking Trelegy Ellipta 100-62.5-25 MCG/ACT Aerosol Powder Breath Activated 1 puff Inhalation Once a day , Taking Tamsulosin HCl 0.4 MG Capsule 1 capsule Orally Once a day , Taking Vitamin D , Taking Calcium , Taking Ipratropium Mchenry , Taking Xtandi , Taking Ondansetron 8 [...] as directed Subcutaneous , Taking Nitroglycerin , Notes to Pharmacist: prn, Taking Rosuvastatin Calcium 40 MG Tablet 1 [...] 60mL Irrigation daily , stop date 12/15/2024, Taking Fluconazole 100 MG Tablet 1 tablet Orally , Taking Metoprolol Succinate ER 25 MG Tablet Extended Release 24 Hour 1 tablet Orally Once a day , Taking Prochlorperazine , Taking glipiZIDE 2.5 MG Tablet 1 tablet 30 minutes before breakfast Orally Once a day , Taking Finasteride 5 MG Tablet 1 tablet Orally Once a day , stop date 05/12/2025, Taking Esomeprazole Magnesium 40 MG Capsule Delayed Release 1 capsule Orally Once a day , Taking predniSONE 5 MG Tablet 1 tablet Orally Once a day , Taking Meclizine HCl , Taking Flonase , Taking Triamcinolone (oint)-Silicone , Taking Mupirocin 2 % Ointment 1 application Externally Twice a day , Taking Promethazine HCl 6.25 MG/5ML Solution 10 mL as needed Orally every 6 hrs , Taking Zoladex 10.8 MG Implant as directed Subcutaneous , Taking Cetirizine HCl 10 MG Tablet 1 tablet Orally Once a day , Taking carBAMazepine ER 100 MG Tablet Extended Release 12 Hour 1 tablet Orally Twice a day , Taking Abiraterone Acetate 500 MG Tablet 2 tablets Orally Once a day , Medication List reviewed and reconciled with the patient * Allergies: V ancomycin: hives - Allergy. Objective: * Vitals: B P: 105/71 mm Hg, HR: 79 /min, Wt: 181 lbs, Wt-k.1 kg, Ht: 75 in, Ht-cm: 190.5 cm, BMI: 22.62 Index, Body Surface Area: 2.08. * Examination: G eneral Examination: General appearance: a lert, elderly, male, well-nourished and in no acute distress, using a rolling walker. Skin: s kin is warm and dry, with no rashes, good skin turgor and normal hair distribution. Heart: r egular rate. Lungs: s ymmetrical, non labored respirations. Abdomen: s oft, non tender, non distended, SP tube site clean and dry, tube to drainage bag with clear, light rhianna urine. Back: n o CVA tenderness. Assessment: * Assessment: 1. U rinary retention - R33.9 (Primary) 2 . P rostate cancer - C61 ? 3 . M etastatic adenocarcinoma to prostate - C79.82 4 . H istory of orchiectomy, bilateral - Z90.79 5 . S /P radiation therapy - Z92.3 ?Specify :and chemo 6 . E ncounter for attention to cystostomy - Z43.5 We discussed previous office visit with Dr. Menjivar where patient was needed to have dilation u p to 16 Liberian and a 16 Liberian suprapubic tube back into the bladder under direct cystoscopic visualization and did have some prostate blockage but otherwise his urethra was patent also with no pathology within the bladder. W e will continue with now 4 week suprapubic tube changes here at our office. Continue prostate cancer surveillance given todays PSA elevation to 7.2. He is scheduled to return back for SPT change soon, and he was instructed to repeat this PSA given recent infection. For now, and through shared decision making we are in agreement with no further workup or intervention at this time with care plan, aside from what was mentioned. Patient has no other voiced concerns or questions. Patient satisfied with plan. Plan: * Treatment: * Procedure Codes: G 2211 Complex e/m visit add on * Follow Up: a s scheduled with PSA * Billing Information: * Visit Code: 31298 Office Visit, Est Pt., Level 4. * Procedure Codes: G2211 Complex e/m visit add on. * Sign off status: Completed true * Provider: Roby Hercules APRN Date: Generated for Luc mcnally/Dudley/Meryitting on: 12:23 PM CDT History and Physical Notes * HPI (History of Present Illness) Category Sub-Category Detail Notes Category Not es Incontinence Urinary Incontinence Assessment: : Absent Has SPT tube Migrated HPI Mr. Jacobs is a 79-yo male with hematuria and h/o prostate cancer s/p bilateral orchiectomy, then radiation and chemo by Dr. Jewell. Previous patient of Dr. Gould. He states his PSA stays between 4.5-5.6. He is a former smoker. He also has a h/o thyroid cancer. He was seen at [facility] on 02/28/23 c/o hematuria x2 weeks. CT a/p revealed no acute findings, sclerotic bone lesions, and avascular necrosis of R femoral head. He had a chronic appearing bladder wall thickening, siimple cyst of L kidney measuring 5.5, and a 2 mm nonobstructing stone in L kidney. No hydronephrosis. Kaur placed with high urine output for 2 weeks then removed at [facility]. He initially could not void in the clinic, he went home and started voiding small amounts later that night . He reported urgency and nocturia x3. IPSS [...] able to dribble. Patient was seen at [facility] on 09/19/2023 with complaint of penile [...] up, and patient underwent cystolitholapaxy on 03/09/24. Dr. Menjivar saw patient on 05/31/24 with concerns for clogged SPT as it was a 10fr kaur due to all that an outside ER could place. Cystoscopy performed and dilated up to 16 fr. He was instructed to gain q 3 week SPT changes and return care in 4 months for symptom reassessment and SPT change. He notes to still be seeing cancer treatment center in . He is no longer on finasteride as mentioned. PSA appears fairly stable compared to corrected PSA last checked while on finasteride. PSA most recently of 4.94 and instructed to repeat this for todays office visit. PSA drawn on 11/10/24 resulting at 7.2. He was in the hospital after last SPT change in hospital for UTI. He is doing alot better. Discharged on 11/27/24 with levaquin. Otherwise, his only concern is continued clogged SPT changes but has been started on Renacidin irrigation to help with this. Denies fevers or chills. Examination Category Sub-Category Detail Notes Category Not es General Examination General appearance: alert, e lderly, male, well-nourished and in no acute distress, using a rolling walker Heart: regular rate Lungs: symmetrical, non lab ored respirations Abdomen: soft, non tender, no n distended, SP tube site clean and dry, tube to drainage bag with clear, light rhianna urine Skin: skin is warm and dry , with no rashes, good skin turgor and normal hair distribution Back: no CVA tenderness
--- OUTSIDE RECORDS SUMMARY | 2024-12-02 12:23 | XMS_ITS | Clinical Summary ---
Author Organization [facility] Address [address] 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
--- OUTSIDE RECORDS SUMMARY | 2024-12-02 12:23 | XMS_ITS | Encounter Summary ---
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
--- OUTSIDE RECORDS SUMMARY | 2024-12-02 12:23 | XMS_ITS | Clinical Summary ---
Author Organization [facility] Address [address] 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
--- OUTSIDE RECORDS SUMMARY | 2024-12-02 12:24 | XMS_ITS | Patient Health Record ---
Author Organization [facility], [facility] Address [address] [place] [address] Care Team Providers Care Construction Driller Name Role Phone Katelin WYATT, Jose Primary Care Provider Unavailab LYDIA Malave Unavailable [phone] JONG MENJIVAR Unavailable [phone] JILLIAN MENDOZA Unavailable [phone] Jong Hercules Unavailable [phone] Allergies Allergen (clinical drug ingredient) Drug/Non Drug Allergy documented on EMR Reaction Allergy Type Onset Date Status vancomycin Vancomycin hives Drug Allergy Activ e Results Component Value Reference Range Notes UBASE - Urinary Tract Infect ion (HTRx) Reviewed date:09/19/2024 08:54:48 AM Interpretation: Performing Lab:, [facility] at [address], Phone - [phone], Director - [id number] Notes/Report: CTX-M1 (15), M2 (2), M9 (9), [...] day; Duration: 90 days 05/17/2024 05/12/2025 Active Tylenol Active Claritin Active Xtandi Active Prochlorperazine Act luis Ondansetron 8 MG 1 tablet on the tong ue and allow to dissolve as needed Orally Once a day Active glipiZIDE 2.5 MG 1 tablet 30 minutes before breakfast Orally Once a day Active Morphine Sulfate 15 MG 1 tablet as needed Orally every 6 hrs As needed Active Aspirin 81 81 MG 1 tablet Orally Once a day Active Trelegy Ellipta 100-62.5-25 MCG/ACT 1 puff Inhalation Once a day Active PreserVision AREDS 2 Active Eliquis 5 MG 1 tablet Orally Twic e a day Active Calcium Active Fluconazole 100 MG 1 tablet Orally Active Ipratropium [place] Active Metoprolol Succinate ER 25 MG 1 tablet Orally Once a day Active Tamsulosin HCl 0.4 MG 1 capsule Orally O nce a day Active Famotidine 20 MG 1 tablet at bedtime as needed Orally twice a day 40mg Active Renacidin - 60mL Irrigation corey y; Duration: 30 days 10/17/2024 12/15/2024 Active Vitamin D Active Abiraterone Acetate 500 MG 2 tablets Ora lly Once a day Active Levothyroxine Sodium 175 MCG 1 tablet in the morning on an empty stomach Orally Once a day Active Ferrous Sulfate 325 (65 Fe) MG 1 tablet Orally Three times a Week 11/30/2024 Active Januvia 100 MG 1 tablet Orally Once a day 50mg Active Montelukast Sodium 10 MG 1 tablet Orally Once a day Active Cetirizine HCl 10 MG 1 tablet Orally Onc e a day Active Metoclopramide HCl 5 MG 1 tablet before meals Orally Twice a day Active carBAMazepine ER 100 MG 1 tablet Orally Twice a day Active levoFLOXacin 500 MG 1 tablet Orally Once a day 11/30/2024 Active Folic Acid 1 MG 1 tablet Orally Once a day Active traZODone HCl 50 MG 1 tablet at bedtime as needed Orally Once a day Active Meclizine HCl Active LORazepam 2 MG/ML 1 mL as needed Orall y Twice a day Active Flonase Active Esomeprazole Magnesium 40 MG 1 capsule Orally Once a day Active predniSONE 5 MG 1 tablet Orally Once a day Active Rosuvastatin Calcium 40 MG 1 tablet Oral ly Once a day Active Promethazine HCl 6.25 MG/5ML 10 mL as needed Orally every 6 hrs Active Probiotic Active Zoladex 10.8 MG as directed Subcutaneous Active Xgeva 120 MG/1.7ML as directed Subcutaneous Active Triamcinolone (oint)-Silicone Active Nitroglycerin prn Active Mupirocin 2 % 1 application Externally Twice a day Active Social History Tobacco Use: [...] ages 21-60 Smoking history - ages 9 - yrs old ETOH - ages -60 Smoking history - ages - yrs old ETOH - ages -60 Smoking history - ages 9 - yrs old ETOH - ages -60 Smoking history - ages 9 -77 yrs old ETOH - ages 21-60 Smoking history - ages - yrs old ETOH - ages -60 Smoking history - ages -77 yrs old ETOH - ages 21-60 Smoking history - ages 9 -77 yrs old ETOH - ages 21-60 Smoking history - ages 9 -77 yrs old ETOH - ages 21-60 Smoking history - ages -77 yrs old ETOH - ages 21-60 Smoking history - ages -77 yrs old ETOH - ages 21-60 Smoking history - ages -77 yrs old ETOH - ages 21-60 Smoking history - ages 9 -77 yrs old ETOH - ages 21-60 Smoking history - ages 9 -77 yrs old ETOH - ages 21-60 Problems Problem Type SNOMED Code ICD Code Onset Dates Problem Status W/U Status Risk Notes Problem Incision of bladder (56968185) Encounter for attention to cystostomy (Z43.5) Active confirmed Problem Type II diabetes mellitus without complication (810303341) Type 2 diabetes mellitus without complication, unspecified whether alf insulin use (E11.9) Active confirmed Problem Neurogenic bladder (284630972) Neurogenic bladder (N31.9) Active confirmed Problem Suprapubic catheter (565464549) Suprapubic catheter (Z93.59) Active confirmed Problem Bladder calculus (50648452) Bladder calculus (N21.0) Active confirmed Problem Encounter for suprapubic catheter care (Z43.5) Active confirmed Problem COPD - Chronic obstructive pulmonary disease (17690548) Chronic obstructive pulmonary disease, unspecified COPD type (J44.9) Active confirmed Problem Change of urinary catheter bag (procedure) (651121239) Catheter (urine) change required (Z46.6) Active confirmed Problem History of radiation exposure (013165505) S/P radiation therapy (Z92.3) Active confirmed Problem Metastatic adenocarcinoma to prostate (8121129661) Metastatic adenocarcinoma to prostate (C79.82) Active confirmed Problem Malignant tumor of prostate (154203186) Prostate cancer (C61) Active confirmed Vital Signs Heart Rate 79 /min 11/30/2024 Height-cm 190.5 cm 11/30/2024 Blood pressure diastolic 71 mm Hg 11/30/2024 Weight-kg 82.1 kg 11/30/2024 Height 75 in 11/30/2024 Blood pressure systolic 105 mm Hg 11/30/2024 Weight 181 lbs 11/30/2024 BMI 22.62 kg/m2 11/30/2024 Procedures Procedure Date Ordered Date Performed Result Body Sit e SP Tube Change 12/29/2023 12/29/2023 N/A SP [...] N/A SP Tube Change 10/27/2024 10/27/2024 N/A SP Tube Change 11/17/2024 11/17/2024 N/A Encounters Encounter Location Date Provider Diagnosis [facility], [facility] [address] [place] [address] 03/30/2024 LYDIA GONZALES [facility], [facility] [address] [place] [address] 12/29/2023 JONG MENJIVAR Urinary retention R3 3.9 and Encounter for suprapubic catheter care Z43.5 [facility], [facility] [address] [place] [address], [place] [address] 02/17/2024 JONG MENJIVAR Encounter for suprapubic catheter care Z43.5 and Urinary retention R33.9 [facility], [facility] [address] [place] [address] 03/02/2024 JONG MENJIVAR Urinary retention R3 3.9 ; Prostate cancer C61 ; Metastatic adenocarcinoma to prostate C79.82 ; History of orchiectomy, 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 ; S/P radiation therapy Z92.3 and Encounter for attention to cystostomy Z43.5 [facility], [facility] [address] [place] [address] 03/09/2024 JONG MENJIVAR Trigonitis N30.30 [facility], [facility] [address] [place] [address] 04/06/2024 LYDIA GONZALES Urinary retention R3 3.9 ; Prostate cancer C61 ; Metastatic adenocarcinoma to prostate C79.82 ; History of orchiectomy, 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 and S/P radiation therapy Z92.3 [facility], [facility] [address] [place] [address] 05/31/2024 JONG MENJIVAR Urinary retention R3 3.9 ; Prostate cancer C61 ; Metastatic adenocarcinoma to prostate C79.82 ; History of orchiectomy, 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 and S/P radiation therapy Z92.3 [facility], [facility] [address] [place] [address] 06/21/2024 JONG MENJIVAR Encounter for suprapubic catheter care Z43.5 and Urinary retention R33.9 [facility], [facility] [address] [place] [address] 07/12/2024 JONG MENJIVAR Encounter for suprapubic catheter care Z43.5 and Prostate cancer C61 [facility] [address] [place] [address] 08/03/2024 JONG MENJIVAR Encounter for suprapubic catheter care Z43.5 and Prostate cancer C61 [facility], [facility] [address] [place] [address] 08/18/2024 Jong Hercules Urinary retention R3 3.9 ; Prostate cancer C61 ; Metastatic adenocarcinoma to prostate C79.82 ; History of orchiectomy, 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 ; S/P radiation therapy Z92.3 and Encounter for attention to cystostomy Z43.5 [facility], [facility] [address] [place] [address] 09/01/2024 Jnog Pevrservando Encounter for attent ion to cystostomy Z43.5 and Urinary retention R33.9 [facility], [facility] [address] [place] [address] 09/15/2024 Jong Pevril Encounter for attent ion to cystostomy Z43.5 ; Dysuria R30.0 and Acute urinary retention R33.8 [facility] [address] [place] [address] 09/29/2024 Jong Pevril Encounter for attent ion to cystostomy Z43.5 ; Neurogenic bladder N31.9 and Bladder calculus N21.0 [facility], [facility] [address] [place] [address] 10/13/2024 JILLIAN MENDOZA Encounter for attent ion to cystostomy Z43.5 and Neurogenic bladder N31.9 [facility] [address] [place] [address] 10/27/2024 [facility] Encounter for attent ion to cystostomy Z43.5 ; Prostate cancer C61 and Urinary retention R33.9 [facility] [address] [place] [address] 11/17/2024 [facility] Encounter for attent ion to cystostomy Z43.5 ; Prostate cancer C61 and Urinary retention R33.9 [facility] [address] [place] [address] 11/30/2024 Jong Hercules Urinary retention R3 3.9 ; Prostate cancer C61 ; Metastatic adenocarcinoma to prostate C79.82 ; History of orchiectomy, 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 ; S/P radiation therapy Z92.3 and Encounter for attention to cystostomy Z43.5 [facility] [address] [place] [address] 12/15/2023 LYDIA REANO [facility] [address] [place] [address] 01/18/2024 [facility] [address] [place] [address] 02/16/2024 LYDIA REANO [facility] [address] [place] [address] 02/18/2024 LYDIA REANO [facility] [address] [place] [address] 2024 JONG MENJIVAR [facility] [address] [place] [address] 2024 JONG HAMMONDKER [facility] [address] [place] [address] 2024 LYDIA REANO [facility] [address] [place] [address] 04/04/2024 LYDIA REANO [facility] [address] [place] [address] 04/05/2024 JONG MENJIVAR [facility] [address] [place] [address] 05/17/2024 JONG MENJIVAR [facility] [address] [place] [address] 05/24/2024 LYDIA GONZALES [facility] [address] [place] [address] 05/30/2024 LYDIA GONZALES [facility] [address] [place] [address] 09/19/2024 Jong Hercules [facility] [address] [place] [address] 10/17/2024 LYDIA GONZALES Assessments Encounter Date Diagnosis (ICD Code) Assessment Notes Treatment Notes Treatment Clinical Notes Section Notes 12/29/2023 Encounter for suprapubic catheter care (ICD-10 [...] and scheduled for next available cystolithalopaxy at [facility] He recently started having sptube changed with [...] and scheduled for next available cystolithalopaxy at [facility] He recently started having sptube changed with [...] - R33.9) 03/09/2024 Trigonitis (ICD-10 - N30.30) 06/21/2024 Encounter for suprapubic catheter care (ICD-10 [...] will return in 3wks for repeat change. 07/12/2024 Encounter for suprapubic catheter care (ICD-10 - Z43.5) Pt here for routine sptube change and he tolerated well. He will return in 3wks of repeat change. 07/12/2024 Prostate cancer (ICD-10 - C61) Pt here for routine sptube change and he tolerated well. He will return in 3wks of repeat change. 08/03/2024 Encounter for suprapubic catheter care (ICD-10 - Z43.5) Pt here for routine sptube change and he tolerated well. He will return in 3wks of repeat change. 05/31/2024 Urinary retention (ICD-10 - R33.9) He had a clogged SP tube and outside emergency room could only place a 10 [place] suprapubic tube. I was able to remove this and dilate up to 16 [place] and get a 16 [place] suprapubic tube back into the bladder under [...] than 50% of that time in direct rnjn-jr-xaji discussion. 09/01/2024 Encounter for attention to cystostomy (ICD-10 [...] in 2 weeks for routine change. 08/18/2024 Prostate cancer (ICD-10 - C61) We discussed previous office visit with Dr. Menjivar where patient was needed to have dilation up to 16 [place] and a 16 [place] suprapubic tube back into the bladder under [...] needed to have dilation up to 16 [place] and a 16 [place] suprapubic tube back into the bladder under [...] concerns or questions. Patient satisfied with plan. 09/29/2024 Encounter for attention to cystostomy (ICD-10 [...] with renacidin due to continued kaur clogging. 10/13/2024 Encounter for attention to cystostomy (ICD-10 - Z43.5) Pt here for routine sptube change. He tolerated well and will return in 2wks for repeat change or sooner with any other concerns. 10/13/2024 Neurogenic bladder (ICD-10 - N31.9) Pt here for routine sptube change. He tolerated well and will return in 2wks for repeat change or sooner with any other concerns. 10/27/2024 Encounter for attention to cystostomy (ICD-10 [...] return in 3wks for repeat sptube change. 11/17/2024 Encounter for attention to cystostomy (ICD-10 - Z43.5) Pt here for routine sptube change. He tolerated well and is doing well with flushes. Requesting to move to every 4wks and this will be scheduled to return for sptube change. 11/30/2024 Urinary retention (ICD-10 - R33.9) We discussed previous office visit with Dr. Menjivar where patient was needed to have dilation up to 16 [place] and a 16 [place] suprapubic tube back into the bladder under [...] or questions. Patient satisfied with plan. 08/18/2024 Metastatic adenocarcinoma to prostate (ICD-10 - C79.82) We discussed previous office visit with Dr. Menjivar where patient was needed to have dilation up to 16 [place] and a 16 [place] suprapubic tube back into the bladder under [...] needed to have dilation up to 16 [place] and a 16 [place] suprapubic tube back into the bladder under [...] concerns or questions. Patient satisfied with plan. 11/17/2024 Prostate cancer (ICD-10 - C61) Pt here for routine sptube change. He tolerated well and is doing well with flushes. Requesting to move to every 4wks and this will be scheduled to return for sptube change. 10/27/2024 Urinary retention (ICD-10 - [...] return in 2 weeks for routine change. 05/31/2024 Prostate cancer (ICD-10 - C61) He had a clogged SP tube and outside emergency room could only place a 10 [place] suprapubic tube. I was able to remove this and dilate up to 16 [place] and get a 16 [place] suprapubic tube back into the bladder under [...] than 50% of that time in direct iqlx-zz-tycg discussion. 08/03/2024 Prostate cancer (ICD-10 - C61) Pt here for routine sptube change and he tolerated well. He will return in 3wks of repeat change. 04/06/2024 Metastatic adenocarcinoma to prostate (ICD-10 [...] and scheduled for next available cystolithalopaxy at [facility] He recently started having sptube changed with [...] and scheduled for next available cystolithalopaxy at [facility] He recently started having sptube changed with [...] of orchiectomy, bilateral (ICD-10 - Z90.79) 05/31/2024 Metastatic adenocarcinoma to prostate (ICD-10 - C79.82) He had a clogged SP tube and outside emergency room could only place a 10 [place] suprapubic tube. I was able to remove this and dilate up to 16 [place] and get a 16 [place] suprapubic tube back into the bladder under [...] than 50% of that time in direct exen-hq-aysm discussion. 08/18/2024 History of orchiectomy, bilateral (ICD-10 - Z90.79) We discussed previous office visit with Dr. Menjivar where patient was needed to have dilation up to 16 [place] and a 16 [place] suprapubic tube back into the bladder under [...] concerns or questions. Patient satisfied with plan. 11/17/2024 Urinary retention (ICD-10 - R33.9) Pt here for routine sptube change. He tolerated well and is doing well with flushes. Requesting to move to every 4wks and this will be scheduled to return for sptube change. 11/30/2024 Metastatic adenocarcinoma to prostate (ICD-10 - C79.82) We discussed previous office visit with Dr. Menjivar where patient was needed to have dilation up to 16 [place] and a 16 [place] suprapubic tube back into the bladder under [...] needed to have dilation up to 16 [place] and a 16 [place] suprapubic tube back into the bladder under [...] or questions. Patient satisfied with plan. 05/31/2024 History of orchiectomy, bilateral (ICD-10 - Z90.79) He had a clogged SP tube and outside emergency room could only place a 10 [place] suprapubic tube. I was able to remove this and dilate up to 16 [place] and get a 16 [place] suprapubic tube back into the bladder under [...] than 50% of that time in direct hcla-wv-yfuf discussion. 08/18/2024 S/P radiation therapy (ICD-10 - Z92.3) We discussed previous office visit with Dr. Menjivar where patient was needed to have dilation up to 16 [place] and a 16 [place] suprapubic tube back into the bladder under [...] and scheduled for next available cystolithalopaxy at [facility] He recently started having sptube changed with [...] and scheduled for next available cystolithalopaxy at [facility] He recently started having sptube changed with [...] emergency room could only place a 10 [place] suprapubic tube. I was able to remove this and dilate up to 16 [place] and get a 16 [place] suprapubic tube back into the bladder under [...] than 50% of that time in direct [id number]-aa-[id number] discussion. 08/18/2024 Encounter for attention to cystostomy (ICD-10 - Z43.5) We discussed previous office visit with Dr. Menjivar where patient was needed to have dilation up to 16 [place] and a 16 [place] suprapubic tube back into the bladder under [...] needed to have dilation up to 16 [place] and a 16 [place] suprapubic tube back into the bladder under [...] needed to have dilation up to 16 [place] and a 16 [place] suprapubic tube back into the bladder under [...] or questions. Patient satisfied with plan. 04/06/2024 Other No need for SP tube [...] Order Date Chest X-ray PA and lateral 97080 [id number] Electrocardiogram (EKG) 06/17/2023 PSA, TOTAL (5363) 08/18/2024 SP Tube Change 10/13/2024 Catheter Insertion-Routine 09/15/2024 PSA-Diagnostic 11/30/2024 Future Test Test Name Order Date PSA, TOTAL (5363) 01/10/2024 Next Appt Details Provider Name:Jong Diomedes, 12/15/2024 01:20:00 PM, [address] [place], [address], Insurance Providers Payer Name Payer Address Payer Phone Subscriber Number Group Number Insured Name Patient Relationship to Insured Coverage Start Date Coverage End Date [facility] Medicare Advantage PPO [address] [address] [place], [place] [id number] [facility] [id number] [place], ANNAMARIA Self - patient is the insured [place] Medicaid [address] [place], [place] [id number] [place], ANNAMARIA Self - patient is the insured Medical (General) History Medical History History ICD Code Pneumonia Arthritis Bladder infections Diabetes prostate cancer Hernia Hernia Back Trouble High Blood Pressure Hematuria COPD LUTS bone cancer Surgical History Surgery Date(Month/Year) Left Knee Replacement 02/2004 Right Knee Replacement 09/2012 Orchiectomy 04/2017 Back Surgery 02/2020 Hospitalization History Reason Date(Month/Year) Hosp in [place] for UTI for four day s 11/2024 See Prior sx hx
== END 2024-11-27 13:53 | disposition home or self-care (01) ==
LOC: ER 14:28 → MEDSURG 19:41
PROVIDERS: Family Medicine; Student in an Organized Health Care Education/Training Program; Admitting Provider Student in an Organized Health Care Education/Training Program; Emergency Provider Student in an Organized Health Care Education/Training Program; PCP Family Medicine; Visit Provider Internal Medicine
DX: B34.8 Other viral infections of unspecified site (principal); R11.2 Nausea with vomiting, unspecified; R19.7 Diarrhea, unspecified; E86.0 Dehydration; N17.9 Acute kidney failure, unspecified; I10 Essential (primary) hypertension; I25.10 Atherosclerotic heart disease of native coronary artery without angina pectoris; I82.532 Chronic embolism and thrombosis of left popliteal vein; E11.9 Type 2 diabetes mellitus without complications; Z93.59 Other cystostomy status; Z79.01 Long term (current) use of anticoagulants; Z79.82 Long term (current) use of aspirin; Z85.46 Personal history of malignant neoplasm of prostate; J44.9 Chronic obstructive pulmonary disease, unspecified; E78.5 Hyperlipidemia, unspecified; K21.9 Gastro-esophageal reflux disease without esophagitis; Z87.891 Personal history of nicotine dependence
CPT/HCPCS: 36415; 36416; 70450; 71045; 80048; 80053; 81001; 82746; 82962; 83605; 83735; 84100; 84145; 84439; 84443; 85025; 86403; 87040; 87077; 87086; 87186; 87205; 87486; 87581; 87633; 93005; 94640; 94664; 97161; 99285; G0378; J2185; J2405; J2470; J3475; J7030; J7614; J7626; J7644; J8597; J9999

== ENCOUNTER 2024-12-01 15:00 | Oncology outpatient (recurring) (ONCR) | payer OTHER, MEDICAID, SELFPAY ==
[2024-11-16 11:10] LABS: Hematocrit 32.3 % (37-53); Hemoglobin 10.20 g/dL (11.27-16.99); Mean Corpuscular HGB Conc 31.6 g/dL (30-55); Mean Corpuscular Hemoglobin 32.2 pg (27-33); Mean Corpuscular Volume 101.9 fl (82-101); Nucleated Red Blood Cells % 0 %; Platelet Count 207 10^3/cmm (157-399); Red Blood Count 3.17 10^6/uL (3.85-5.65); White Blood Count 4.07 10^3/uL (3.29-11.43)
[2024-11-16 11:43] LABS: Alanine Aminotransferase < 5 U/L (0-41); Albumin Level 3.7 g/dL (3.5-5.2); Alkaline Phosphatase 75 U/L (40-130); Anion Gap 12.7 (5-19); Aspartate Amino Transferase 7 U/L (0-40); Blood Urea Nitrogen 16 mg/dL (8-23); Calcium 8.9 mg/dL (8.5-10.5); Carbon Dioxide 27 mmol/L (22-29); Chloride 105 mmol/L (98-107); Globulin 3.4 g/dL (1.3-4.6); Glucose 134 mg/dL (65-115); Osmolality Calculated 293 mOsm/kg (285-295); Potassium 4.7 mmol/L (3.5-5.1); Sodium 140 mmol/L (136-145); Thyroid Stimulating Hormone 7.29 uIU/mL (0.27-4.20); Total Protein 7.1 g/dL (6.6-8.7)
[2024-11-16] MEDS: denosumab 120 mg SDV (Infusion Clinic Only) SUBCUT (12:58)
[2024-12-01 12:31] LABS: Hematocrit 31.1 % (37-53); Hemoglobin 10.10 g/dL (11.27-16.99); Mean Corpuscular HGB Conc 32.5 g/dL (30-55); Mean Corpuscular Hemoglobin 32.4 pg (27-33); Mean Corpuscular Volume 99.7 fl (82-101); Nucleated Red Blood Cells % 0 %; Platelet Count 180 10^3/cmm (157-399); Red Blood Count 3.12 10^6/uL (3.85-5.65); White Blood Count 3.14 10^3/uL (3.29-11.43)
[2024-12-01 12:46] LABS: Alanine Aminotransferase < 5 U/L (0-41); Albumin Level 3.4 g/dL (3.5-5.2); Alkaline Phosphatase 68 U/L (40-130); Anion Gap 15.4 (5-19); Aspartate Amino Transferase 10 U/L (0-40); Blood Urea Nitrogen 15 mg/dL (8-23); Calcium 8.8 mg/dL (8.5-10.5); Carbon Dioxide 27 mmol/L (22-29); Chloride 100 mmol/L (98-107); Creatinine Clr Calc Pharmacy 64.2031; Globulin 3.2 g/dL (1.3-4.6); Glucose 141 mg/dL (65-115); Magnesium 1.8 mg/dL (1.7-2.3); Osmolality Calculated 289 mOsm/kg (285-295); Potassium 4.4 mmol/L (3.5-5.1); Sodium 138 mmol/L (136-145); Total Protein 6.6 g/dL (6.6-8.7)
[2024-12-01 14:56] LABS: Prostate Specific Antigen 6.480 ng/mL (0-4)
--- NOTE | 2024-12-01 15:00 | USR_ITS ---
PROCEDURE INFORMATION: Exam: US Soft Tissue Head and Neck, Thyroid Exam date and time: 12/01/2024 3:10 PM Age: 79 years old Clinical indication: Mass, lump, or swelling in neck; Right; Additional info: Enhancing right level 2 cervical lymph node measuring 9 mm, please focus on right cervical lymph nodes TECHNIQUE: Imaging protocol: Real-time ultrasound scan of the neck with image documentation. Exam focused on the thyroid. COMPARISON: CT neck w con* [id number] 07/06/2024 9:41 AM FINDINGS: Right thyroid lobe: Surgically absent. No abnormal soft tissue identified within the surgical bed. Left thyroid lobe: Surgically absent. No abnormal soft tissue identified within the surgical bed. Isthmus: Surgically absent. Lymph nodes: No enlarged cervical lymph nodes visualized. US/US thyroid [id number] IMPRESSION: 1. Status post total thyroidectomy. 2. No enlarged cervical lymph nodes visualized. Correlate with clinical findings and consider imaging follow-up as clinically warranted.
== END 2024-12-09 23:59 | disposition home or self-care (01) ==
LOC: RAD 12-02 → ONCMED 12-02 08:27
PROVIDERS: Internal Medicine; Nurse Practitioner Family; PCP Family Medicine; Visit Provider Internal Medicine Medical Oncology
DX: C61 Malignant neoplasm of prostate; C79.51 Secondary malignant neoplasm of bone; E83.39 Other disorders of phosphorus metabolism; E83.42 Hypomagnesemia; N17.9 Acute kidney failure, unspecified; E87.6 Hypokalemia; R03.0 Elevated blood-pressure reading, without diagnosis of hypertension; D64.9 Anemia, unspecified; D72.819 Decreased white blood cell count, unspecified; Z92.3 Personal history of irradiation; Z87.891 Personal history of nicotine dependence; Z92.21 Personal history of antineoplastic chemotherapy; Z53.9 Procedure and treatment not carried out, unspecified reason
CPT/HCPCS: 36415; 76536; 80048; 80053; 83735; 84100; 84153; 84443; 85025; 96372; 99213; J0897

== ENCOUNTER 2024-12-05 07:40 | Outpatient (CLI) | payer OTHER, MEDICAID, SELFPAY ==
[2024-12-05 08:27] LABS: Anion Gap 12.9 (5-19); Blood Urea Nitrogen 14 mg/dL (8-23); Calcium 8.5 mg/dL (8.5-10.5); Carbon Dioxide 27 mmol/L (22-29); Chloride 102 mmol/L (98-107); Glucose 126 mg/dL (65-115); Magnesium 2.0 mg/dL (1.7-2.3); Osmolality Calculated 288 mOsm/kg (285-295); Potassium 3.9 mmol/L (3.5-5.1); Sodium 138 mmol/L (136-145)
[2024-12-05 08:51] LABS: Free T4 Free Thyroxine 1.10 ng/dL (0.82-1.77); Thyroid Stimulating Hormone 4.39 uIU/mL (0.27-4.20)
== END 2024-12-05 07:41 | disposition home or self-care (01) ==
PROVIDERS: Internal Medicine; PCP Family Medicine; Visit Provider Internal Medicine
DX: E03.9 Hypothyroidism, unspecified (principal); R59.9 Enlarged lymph nodes, unspecified; C73 Malignant neoplasm of thyroid gland
CPT/HCPCS: 36415; 80048; 83735; 84100; 84432; 84439; 84443; 86800

== ENCOUNTER 2024-12-13 10:57 | Outpatient (CLI) | payer OTHER, MEDICAID, SELFPAY ==
[2024-12-13 12:28] LABS: Prostate Specific Antigen 2.820 ng/mL (0-4)
== END 2024-12-13 10:58 | disposition home or self-care (01) ==
LOC: LAB 10:59
PROVIDERS: PCP Family Medicine; Visit Provider Nurse Practitioner Family
DX: C61 Malignant neoplasm of prostate (principal)
CPT/HCPCS: 36415; 84153

== ENCOUNTER 2024-12-13 11:31 | Emergency (ER) | payer OTHER, MEDICAID, SELFPAY ==
--- OUTSIDE RECORDS SUMMARY | 2024-08-24 11:00 | XMS_ITS ---
Author Organization [facility] Address [address] [place] [address] Care Team Providers Care Type Photography Supervisor Name Role Phone Katelin WYATT, Jose Primary Care Provider Unavailab LYDIA Malave Unavailable [phone] JONG MENJIVAR Unavailable [phone] REASON FOR VISIT 3 wk sp tube chg Encounters Encounter Location Date Provider Diagnosis [facility] [address] [place] [address] 08/24/2024 JONG MENJIVAR Plan Of Treatment Next Appt Details Provider Name:Jong Hercules, 12/15/2024 01:20:00 PM, [address] [place], [address], Progress Notes * ANNAMARIA BRANDON RDOB:[birth year] (79 yo M)Acc No.[id number]:08/24/2024 Progress Note Patient: ANNAMARIA TOPETE Provider: Roby Menjivar MD :1945 A ge:79 Y S ex:Male Date:08/24/2024 Phone: Address:[address] [place] [id number] Pcp:Jose Thomason MD Subjective: * Chief Complaints: * 1 . 3 wk sp tube chg. * Medical History: Objective: * Vitals: Assessment: Plan: * Treatment: * Billing Information: * Visit Code: * Procedure Codes: * Electronic signature of JIMMY MENJIVAR MD on 12/13/2024 at 11:39 AM HAM SMOKER Sign off status: Pending * Provider: Roby Menjivar MD Date: 0 08/24/2024 Generated for Luc mcnally/Dudley/Miguelito on: 1 02/13/2024 11:39 AM HAM SMOKER
[2024-12-13 11:33] VITALS: BP 111/71; PULSE 78; TEMP 36.7; O2SAT 97; BMI 22.5
--- OUTSIDE RECORDS SUMMARY | 2024-12-13 11:39 | XMS_ITS | Clinical Summary ---
Author Organization [facility] tone Address [address] 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
--- OUTSIDE RECORDS SUMMARY | 2024-12-13 11:39 | XMS_ITS | Encounter Summary ---
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
--- OUTSIDE RECORDS SUMMARY | 2024-12-13 11:39 | XMS_ITS | Clinical Summary ---
Author Organization [facility] Address [address] 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
--- OUTSIDE RECORDS SUMMARY | 2024-12-13 11:40 | XMS_ITS | Patient Health Record ---
Author Organization [facility], [facility] Address [address] [place] [address] Care Team Providers Care Expressive Art Therapist Name Role Phone Katelin WYATT, Jose Primary Care Provider Unavailab LYDIA Malave Unavailable [phone] JONG MENJIVAR Unavailable [phone] JILLIAN MENDOZA Unavailable [phone] Jong Hercules Unavailable [phone] Allergies Allergen (clinical drug ingredient) Drug/Non Drug Allergy documented on EMR Reaction Allergy Type Onset Date Status vancomycin Vancomycin hives Drug Allergy Activ e Results Component Value Reference Range Notes [facility]BASE - Urinary Tract Infect ion (HTRx) Reviewed date:09/19/2024 08:54:48 AM Interpretation: Performing Lab:, [facility] at [address], Phone - [phone], Director - [id number] Notes/Report: CTX-M1 (15), M2 (2), M9 (9), [...] 100 MG 1 tablet Orally Active Ipratropium Eldred Active Metoprolol Succinate ER 25 MG 1 [...] Status Risk Notes Problem Incision of bladder (30709280) Encounter for attention to cystostomy (Z43.5) Active confirmed Problem Type II diabetes mellitus without complication (136334837) Type 2 diabetes mellitus without complication, unspecified whether fpc insulin use (E11.9) Active confirmed Problem Neurogenic bladder (867887336) Neurogenic bladder (N31.9) Active confirmed Problem Suprapubic catheter (546245698) Suprapubic catheter (Z93.59) Active confirmed Problem Bladder calculus (52790664) Bladder calculus (N21.0) Active confirmed Problem Encounter for suprapubic catheter care (Z43.5) Active confirmed Problem COPD - Chronic obstructive pulmonary disease (35450985) Chronic obstructive pulmonary disease, unspecified COPD type (J44.9) Active confirmed Problem Change of urinary catheter bag (procedure) (572716562) Catheter (urine) change required (Z46.6) Active confirmed Problem History of radiation exposure (380543674) S/P radiation therapy (Z92.3) Active confirmed Problem Metastatic adenocarcinoma to prostate (7948345738) Metastatic adenocarcinoma to prostate (C79.82) Active confirmed Problem Malignant tumor of prostate (257102219) Prostate cancer (C61) Active confirmed Vital Signs [...] N/A Encounters Encounter Location Date Provider Diagnosis [facility], [facility] [address] [place] [address] 03/30/2024 LYDIA GONZALES [facility], [facility] [address] [place] [address] 12/29/2023 JONG MENJIVAR Urinary retention R3 3.9 and Encounter for suprapubic catheter care Z43.5 [facility], [facility] [address] [place] [address], [place] [address] 02/17/2024 JONG MENJIVAR Encounter for suprapubic catheter care Z43.5 and Urinary retention R33.9 [facility], [facility] [address] [place] [address] 03/02/2024 JONG MENJIVAR Urinary retention R3 3.9 ; Prostate cancer C61 ; Metastatic adenocarcinoma to prostate C79.82 ; History of orchiectomy, 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 ; S/P radiation therapy Z92.3 and Encounter for attention to cystostomy Z43.5 [facility], [facility] [address] [place] [address] 03/09/2024 JONG MENJIVAR Trigonitis N30.30 [facility], [facility] [address] [place] [address] 04/06/2024 LYDIA GONZALES Urinary retention R3 3.9 ; Prostate cancer C61 ; Metastatic adenocarcinoma to prostate C79.82 ; History of orchiectomy, 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 and S/P radiation therapy Z92.3 [facility], [facility] [address] [place] [address] 05/31/2024 JONG MENJIVAR Urinary retention R3 3.9 ; Prostate cancer C61 ; Metastatic adenocarcinoma to prostate C79.82 ; History of orchiectomy, 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 and S/P radiation therapy Z92.3 [facility], [facility] [address] [place] [address] 06/21/2024 JONG MENJIVAR Encounter for suprapubic catheter care Z43.5 and Urinary retention R33.9 [facility], [facility] [address] [place] [address] 07/12/2024 JONG MENJIVAR Encounter for suprapubic catheter care Z43.5 and Prostate cancer C61 [facility] [address] [place] [address] 08/03/2024 JONG MENJIVAR Encounter for suprapubic catheter care Z43.5 and Prostate cancer C61 [facility], [facility] [address] [place] [address] 08/18/2024 Jong Hercules Urinary retention R3 3.9 ; Prostate cancer C61 ; Metastatic adenocarcinoma to prostate C79.82 ; History of orchiectomy, 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 ; S/P radiation therapy Z92.3 and Encounter for attention to cystostomy Z43.5 [facility], [facility] [address] [place] [address] 09/01/2024 Jong Pevrservando Encounter for attent ion to cystostomy Z43.5 and Urinary retention R33.9 [facility], [facility] [address] [place] [address] 09/15/2024 Jong Pevril Encounter for attent ion to cystostomy Z43.5 ; Dysuria R30.0 and Acute urinary retention R33.8 [facility] [address] [place] [address] 09/29/2024 Jong Pevril Encounter for attent ion to cystostomy Z43.5 ; Neurogenic bladder N31.9 and Bladder calculus N21.0 [facility], [facility] [address] [place] [address] 10/13/2024 JILLIAN MENDOZA Encounter for attent ion to cystostomy Z43.5 and Neurogenic bladder N31.9 [facility] [address] [place] [address] 10/27/2024 [facility] Encounter for attent ion to cystostomy Z43.5 ; Prostate cancer C61 and Urinary retention R33.9 [facility] [address] [place] [address] 11/17/2024 [facility] Encounter for attent ion to cystostomy Z43.5 ; Prostate cancer C61 and Urinary retention R33.9 [facility] [address] [place] [address] 11/30/2024 Jong Hercules Urinary retention R3 3.9 ; Prostate cancer C61 ; Metastatic adenocarcinoma to prostate C79.82 ; History of orchiectomy, 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 ; S/P radiation therapy Z92.3 and Encounter for attention to cystostomy Z43.5 [facility] [address] [place] [address] 12/15/2023 LYDIA REANO [facility] [address] [place] [address] 01/18/2024 [facility] [address] [place] [address] 02/16/2024 LYDIA REANO [facility] [address] [place] [address] 02/18/2024 LYDIA REANO [facility] [address] [place] [address] 2024 JONG MENJIVAR [facility] [address] [place] [address] 2024 JONG HAMMONDKER [facility] [address] [place] [address] 2024 LYDIA REANO [facility] [address] [place] [address] 04/04/2024 LYDIA REANO [facility] [address] [place] [address] 04/05/2024 JONG MENJIVAR [facility] [address] [place] [address] 05/17/2024 JONG MENJIVAR [facility] [address] [place] [address] 05/24/2024 LYDIA GONZALES [facility] [address] [place] [address] 05/30/2024 LYDIA GONZALES [facility] [address] [place] [address] 09/19/2024 Jong Hercules [facility] [address] [place] [address] 10/17/2024 LYDIA GONZALES Assessments Encounter Date Diagnosis [...] C61) 04/06/2024 Urinary retention (ICD-10 - R33.9) 05/31/2024 Urinary retention (ICD-10 - R33.9) He had a clogged SP tube and outside emergency room could only place a 10 Belgian suprapubic tube. I was able to remove this and dilate up to 16 Belgian and get a 16 Belgian suprapubic tube back into the bladder under [...] than 50% of that time in direct iqcc-nz-vqln discussion. 06/21/2024 Encounter for suprapubic catheter care (ICD-10 [...] will return in 3wks for repeat change. 08/03/2024 Encounter for suprapubic catheter care (ICD-10 - Z43.5) Pt here for routine sptube change and he tolerated well. He will return in 3wks of repeat change. 08/18/2024 Prostate cancer (ICD-10 - C61) We discussed previous office visit with Dr. Menjivar where patient was needed to have dilation up to 16 Belgian and a 16 Belgian suprapubic tube back into the bladder under [...] needed to have dilation up to 16 Belgian and a 16 Belgian suprapubic tube back into the bladder under [...] return in 2 weeks for routine change. 10/13/2024 Encounter for attention to cystostomy [...] be scheduled to return for sptube change. 09/29/2024 Encounter for attention to cystostomy (ICD-10 - Z43.5) Discussed case with Jennifer Hercules APRN and kaur was in appropriate placement. It was recommended on moving forward with renacidin due to continued kaur clogging. 09/29/2024 Neurogenic bladder (ICD-10 - N31.9) Discussed case with Jennifer Hercules PHYSICIAN RELATIONS SPECIALIST and kaur was in appropriate placement. It [...] will return in 3wks of repeat change. 11/30/2024 Urinary retention (ICD-10 - R33.9) We discussed previous office visit with Dr. Menjivar where patient was needed to have dilation up to 16 Belgian and a 16 Belgian suprapubic tube back into the bladder under [...] needed to have dilation up to 16 Belgian and a 16 Belgian suprapubic tube back into the bladder under [...] or questions. Patient satisfied with plan. 09/29/2024 Bladder calculus (ICD-10 - N21.0) Discussed case with Jennifer Hercules APRN and kaur was in appropriate placement. It was recommended on moving forward with renacidin due to continued kaur clogging. 11/17/2024 Prostate cancer (ICD-10 - C61) Pt [...] return in 3wks for repeat sptube change. 09/15/2024 Acute urinary retention (ICD-10 - [...] needed to have dilation up to 16 Belgian and a 16 Belgian suprapubic tube back into the bladder under [...] return in 3wks of repeat change. 05/31/2024 Prostate cancer (ICD-10 - C61) He had a clogged SP tube and outside emergency room could only place a 10 Belgian suprapubic tube. I was able to remove this and dilate up to 16 Belgian and get a 16 Belgian suprapubic tube back into the bladder under [...] than 50% of that time in direct peks-jo-waqo discussion. 03/02/2024 Metastatic adenocarcinoma to prostate (ICD-10 - [...] adenocarcinoma to prostate (ICD-10 - C79.82) 03/02/2024 History of orchiectomy, bilateral (ICD-10 - [...] it is both accurate and complete. 05/31/2024 Metastatic adenocarcinoma to prostate (ICD-10 - C79.82) He had a clogged SP tube and outside emergency room could only place a 10 Belgian suprapubic tube. I was able to remove this and dilate up to 16 Belgian and get a 16 Belgian suprapubic tube back into the bladder under [...] than 50% of that time in direct snev-in-ypjl discussion. 04/06/2024 History of orchiectomy, bilateral (ICD-10 - Z90.79) 08/18/2024 History of orchiectomy, bilateral (ICD-10 - Z90.79) We discussed previous office visit with Dr. Menjivar where patient was needed to have dilation up to 16 Belgian and a 16 Belgian suprapubic tube back into the bladder under [...] needed to have dilation up to 16 Belgian and a 16 Belgian suprapubic tube back into the bladder under [...] needed to have dilation up to 16 Belgian and a 16 Belgian suprapubic tube back into the bladder under [...] needed to have dilation up to 16 Belgian and a 16 Belgian suprapubic tube back into the bladder under [...] emergency room could only place a 10 Belgian suprapubic tube. I was able to remove this and dilate up to 16 Belgian and get a 16 Belgian suprapubic tube back into the bladder under [...] than 50% of that time in direct cjsh-yz-htzj discussion. 03/02/2024 S/P radiation therapy (ICD-10 - Z92.3) [...] 04/06/2024 S/P radiation therapy (ICD-10 - Z92.3) 05/31/2024 S/P radiation therapy (ICD-10 - Z92.3) He had a clogged SP tube and outside emergency room could only place a 10 Belgian suprapubic tube. I was able to remove this and dilate up to 16 Belgian and get a 16 Belgian suprapubic tube back into the bladder under [...] than 50% of that time in direct qlkx-bj-lvhw discussion. 03/02/2024 Encounter for attention to cystostomy [...] and scheduled for next available cystolithalopaxy at [facility]. He recently started having sptube changed with [...] needed to have dilation up to 16 Belgian and a 16 Belgian suprapubic tube back into the bladder under [...] needed to have dilation up to 16 Belgian and a 16 Belgian suprapubic tube back into the bladder under [...] needed to have dilation up to 16 Belgian and a 16 Belgian suprapubic tube back into the bladder under [...] Order Date Chest X-ray PA and lateral [id number] [id number] Electrocardiogram (EKG) 06/17/2023 PSA, TOTAL (5363) 08/18/2024 SP Tube Change 10/13/2024 Catheter Insertion-Routine 09/15/2024 PSA-Diagnostic 11/30/2024 Future Test Test Name Order Date PSA, TOTAL (5363) 01/10/2024 Next Appt Details Provider Name:Jong Diomedes, 12/15/2024 01:20:00 PM, [address] [place], [address], Insurance Providers Payer Name Payer Address Payer Phone Subscriber Number Group Number Insured Name Patient Relationship to Insured Coverage Start Date Coverage End Date [facility] Medicare Advantage PPO [address] [address] [place], [place] [id number] [facility] [id number] [place], [place]ARIA Self - patient is the insured [place] Medicaid [address] [place], [place] [id number] [place], ANNAMARIA Self - patient is the insured Medical (General) History Medical History History ICD Code Pneumonia Arthritis Bladder infections Diabetes prostate cancer Hernia Hernia Back Trouble High Blood Pressure Hematuria COPD LUTS bone cancer Surgical History Surgery Date(Month/Year) Left Knee Replacement 02/2004 Right Knee Replacement 09/2012 Orchiectomy 04/2017 Back Surgery 02/2020 Hospitalization History Reason Date(Month/Year) Hosp in [place] for UTI for four day s 11/2024 See Prior sx hx
--- NOTE | 2024-12-13 11:42 | XR_ITS ---
WS: [id number] Portable AP upright chest, 12/13/2024 Clinical Data: confusion Comparison: Portable chest, 11/24/2024 Findings: No nodules, masses or effusions are seen. The heart is normal. The pulmonary vascularity is not increased. No pneumonia or pneumothorax is seen. The aortic arch and descending thoracic aorta show calcification and tortuosity. There is sclerosis of the posterior lateral aspect of the right ninth rib which could represent metastatic prostate disease. There are possible sclerotic foci at the left scapular neck which could also represent metastatic lesions. XR/XR chest 1V portable [id number] Impression: 1. Atherosclerosis. 2. Sclerotic lesions of the right ninth rib and left scapular neck.
--- NOTE | 2024-12-13 11:42 | CT_ITS ---
WS: [id number] CT HEAD TECHNIQUE: Noncontrast CT of the head obtained from the skullbase to the vertex. CLINICAL INFORMATION: confusion COMPARISON: CT 11/24/2024 DLP: 1056.[address] scans at [facility] use at least one of these dose optimization techniques: automated exposure control; mA and/or kV adjustment per patient size (includes targeted exams where dose is matched to clinical indication); or iterative reconstruction. FINDINGS: No evidence of intracranial hemorrhage or mass effect. Ventricular system and basal cisterns are patent. Moderate small vessel changes with moderate parenchymal volume loss. No extra-axial fluid collections. No evidence of mass or mass effect. Vascular calcification Paranasal sinuses and mastoid air cells are well aerated. .Normal visualized soft tissues. CT/CT head wo con* [id number] IMPRESSION: 1. No evidence of intracranial hemorrhage or mass effect. 2. No acute intracranial findings.
--- NOTE | 2024-12-13 11:51 | W.ED.MALEGU ---
HPI - Male Genitourinary General: Chief complaint: Urogenital-Male Stated complaint: confusion, dizzy, trouble walking Time Seen by Provider: 12/13/24 11:41 Source: patient Mode of arrival: ambulatory Limitations: no limitations History of Present Illness: 79-year-old male history of chronic indwelling [place] states that he believes he may have a UTI. States that over the last 2 to 3 days he has had increasing weakness some slight confusion and just not feeling well. States he had some slight lightheadedness as well. He has had no focal deficits denies any slurred speech he denies any pain or fever. Denies any worse improved factors. Related Data Home Medications ?Medication ?Instructions ?Recorded ?Confirmed aspirin 81 mg tablet,delayed 81 mg PO DAILY 03/29/19 12/08/24 release mv-mn-folic 200 mcg-vit K 15 1 cap PO DAILY 04/09/23 12/08/24 mcg-lutein 5 mg-zeaxanthin 1 mg capsule (PreserVision AREDS 2 Plus Multivit) loratadine 10 mg tablet (Claritin) 10 mg PO QPM 07/31/23 12/08/24 lorazepam 1 mg tablet 1 mg PO DAILY PRN Anxiety 02/01/24 12/08/24 acetaminophen 500 mg tablet 500 mg PO BEDTIME PRN Fever Or Pain 04/24/24 12/08/24 (Tylenol Extra Strength) lactobacillus comb no.10 20 20,000 mmu cells PO DAILY 04/24/24 12/08/24 billion cell capsule (Probiotic) triamcinolone acetonide 55 mcg 2 spray intranasal DAILY 05/18/24 12/08/24 nasal spray aerosol metoprolol succinate 25 mg 12.5 mg PO QAM 05/20/24 12/08/24 tablet,extended release 24 hr famotidine 40 mg tablet (Pepcid) 40 mg PO BID 09/30/24 12/08/24 metoclopramide HCl 5 mg tablet 5 mg PO TID 09/30/24 12/08/24 (Reglan) calcium 600 mg (as 1 tab PO DAILY 11/24/24 12/08/24 carbonate)-vitamin D3 5 mcg (200 unit) tablet carbamazepine 100 mg See Rx Instructions .Route .COMPLEX 11/24/24 12/08/24 tablet,extended release,12 hr (Tegretol XR) citric ac 1980.6 mg-glucono 59.4 See Rx Instructions .Route .COMPLEX 11/24/24 12/08/24 mg-mag carb 980.4 mg/30 mL irrig.soln (Renacidin) sitagliptin phosphate 50 mg tablet 50 mg PO QAM 11/24/24 12/08/24 (Januvia) Previous Rx's ?Medication ?Instructions ?Recorded Walker #1 ea 07/28/22 fluticasone fur. 100 mcg-umeclid 1 ea inhalation DAILY #60 ea 10/13/23 62.5 mcg-vilant 25 mcg inhalat.powder (Trelegy Ellipta) ipratropium 0.5 mg-albuterol 3 mg 3 ml inhalation Q6H PRN wheezing 11/06/23 (2.5 mg base)/3 mL nebulization #90 mL soln nebulizer with tubing #1 ea 11/06/23 polyethylene glycol 3350 17 gram 17 g PO DAILY #30 ea 01/18/24 oral powder packet (Miralax) docusate sodium 100 mg capsule 100 mg PO DAILY PRN constipation 01/29/24 #60 caps cholecalciferol (vitamin D3) 50 50 mcg PO DAILY #90 caps 04/26/24 mcg (2,000 unit) capsule rosuvastatin 40 mg tablet 40 mg PO BEDTIME #90 tabs 07/12/24 levothyroxine 175 mcg tablet See Rx Instructions .Route 07/19/24 .COMPLEX #90 tabs montelukast 10 mg tablet 10 mg PO DAILY #90 tabs 07/21/24 trazodone 100 mg tablet 100 mg PO QPM #90 tabs 07/21/24 folic acid 1 mg tablet 1 mg PO BID #30 tabs 10/05/24 catheter bags #4 ea 10/07/24 blood sugar diagnostic (Blood #50 ea 10/14/24 Glucose Test strips) blood-glucose meter #1 ea 10/14/24 lancets 25 gauge #100 ea 10/14/24 apixaban 5 mg tablet (Eliquis) 5 mg PO BID #90 tabs 11/01/24 triamcinolone acetonide 0.1 % 1 applic topical BID #454 grams 11/01/24 topical cream magnesium oxide 400 mg (241.3 mg 400 mg PO BID #60 tabs 11/27/24 magnesium) tablet enzalutamide 80 mg tablet (Xtandi) 80 mg PO DAILY #30 tabs 11/28/24 morphine 30 mg immediate release 30 mg PO Q6H PRN pain 22 days #90 12/01/24 tablet tabs sodium di- and 1 tab PO BID #60 tabs 12/08/24 monophosphate-potassium phos monobasic 250 mg tablet (U-Firi-Tsfhwjc) ondansetron HCl 8 mg tablet 8 mg PO Q8H PRN Nausea And 12/12/24 Vomiting #60 tabs cephalexin 500 mg capsule 500 mg PO TID 7 days #21 caps 12/13/24 Allergies Allergy/AdvReac Type Severity Reaction Status Date / Time vancomycin Allergy HIVES,RASH Verified 12/13/24 11:40 Review of Systems Const: Reports: fatigue PFSH ED PFSH: Medical History Suprapubic catheter Infection with multi-drug resistant microorganisms Coronary artery disease involving teller heart without angina pectoris, unspecified vessel or lesion type Nausea & vomiting Weight loss Viral URI with cough Hospital discharge follow-up Papillary thyroid carcinoma Suprapubic catheter Prostate cancer metastatic to bone Chronic deep vein thrombosis (DVT) of popliteal vein of left lower extremity Lower urinary tract symptoms (LUTS) Cancer related pain Urinary tract infection Right kidney mass Burning sensation of feet Lumbar stenosis with neurogenic claudication Intervertebral disc disorder with radiculopathy of lumbosacral region Metastasis to bone Dyslipidemia History of diverticulitis Type 2 diabetes mellitus without complication, without long-term current use of insulin Benign essential HTN 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 Gastroesophageal reflux disease without esophagitis COPD (chronic obstructive pulmonary disease) 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 Prostate cancer History of thyroid cancer Surgical History History of bladder surgery History of prostate surgery H/O transurethral resection of prostate History of cystostomy S/P cystourethroscopy with dilation of urethral stricture History of lumbar discectomy History of colonoscopy (07/12/19) diverticulosis, repeat 10 years History of orchiectomy, bilateral H/O total knee replacement BILATERAL H/O hernia repair History of hemorrhoidectomy History of uvulectomy History of thyroidectomy, subtotal Family History Mother , in her 90's Cancer Diabetes Sister Diabetes Father , in his 70's No problems noted. Other CAD (coronary artery disease) Social History Smoking and tobacco/nicotine status: never used tobacco/nicotine Quit status (tobacco/nicotine): has quit using Year quit tobacco: 2022 Former quit date comment: stopped in February of this year Alcohol intake: never Substance/Drug Use: never Lives independently: Yes Household members: spouse Marital status: Current occupational status: retired Physical Exam Const: COMMON NORMALS: patient oriented x3 HENMT: COMMON NORMALS: normocephalic and atraumatic HEAD & SCALP: normocephalic and atraumatic Eye: COMMON NORMALS: conjunctivae normal CONJUNCTIVA: Yes conjunctivae normal Neck/C-Spine: COMMON NORMALS: full ROM and supple Chest: COMMONS NORMALS: normal inspection of the chest and normal palpation of entire chest wall Resp: COMMON NORMALS: normal respiratory effort, No retractions, No use of accessory muscles and clear to auscultation bilaterally AUSCULTATION: clear to auscultation bilaterally Cardio: COMMON NORMALS: regular rate, regular rhythm and No murmurs present (Cardio) RATE: regular rate RHYTHM: regular rhythm GI: COMMON NORMALS: Normal to inspection, nondistended, normoactive bowel sounds present, Soft to palpation, non-tender and no masses PALPATION: Yes Soft to palpation Extremity: COMMON NORMALS: normal to inspection and full ROM Neuro: COMMON NORMALS: patient oriented x3, moves all extremities and no focal motor deficits Psych: COMMON NORMALS: mental status grossly normal, Normal thought process present and cooperative THOUGHT PROCESS: Normal thought process present Skin: COMMON NORMALS: no rashes or lesions noted and no wounds GENERAL SKIN EXAM: no rashes or lesions noted Course Vital Signs: Vital signs: Vital Signs Temperature 98.0 F 12/13/24 11:33 Pulse Rate 68 12/13/24 13:30 Blood Pressure 122/69 12/13/24 13:30 Pulse Oximetry 94 12/13/24 13:30 Oxygen Delivery Me thod Room Air 12/13/24 13:30 MDM - Male Medical Decision Making Patient presents here with slight confusion and weakness. Differential includes intercerebral hemorrhage, CVA, infection. CT here is normal he has no focal deficits no signs of hemorrhage or stroke. He feels much improved after fluids does have a mild UTI white count electrolytes here are normal. I did offer patient admission he states he feels much improved would like to go home on oral antibiotics did give him 1 dose of Rocephin here will prescribe him Keflex I did go over his labs and imaging with him he is to follow-up his PCP and return if worsening he understands agrees to plan. Medical Records I reviewed the patient's medical records. Lab Data I reviewed the patient's lab results. 12/13/24 11:59 12/13/24 11:59 Radiology Impressions Chest X-Ray 12/13/24 11:42 Impression: 1. Atherosclerosis. 2. Sclerotic lesions of the right ninth rib and left scapular neck. Head CT 12/13/24 11:42 IMPRESSION: 1. No evidence of intracranial hemorrhage or mass effect. 2. No acute intracranial findings. Laboratory Results WBC 3.07 10^3/uL (3.29-11.43) L 12/13/24 11:59 RBC 3.15 10^6/uL (3.85-5.65) L 12/13/24 11:59 Hgb 10.10 g/dL (11.27-16.99) L 12/13/24 11:59 Hct 31.7 % (37-53) L 12/13/24 11:59 MCV 100.6 fl (82-101) 12/13/24 11:59 MCH 32.1 pg (27-33) 12/13/24 11:59 MCHC 31.9 g/dL (30-55) 12/13/24 11:59 RDW 13.7 % (12.1-15.1) 12/13/24 11:59 Plt Count 183 10^3/cmm (157-399) 12/13/24 11:59 MPV 10.2 fL (7.4-10.4) 12/13/24 11:59 Neut % (Auto) 67.0 % 12/13/24 11:59 Lymph % (Auto) 15.0 % 12/13/24 11:59 [place] % (Auto) 15.3 % 12/13/24 11:59 Eos % (Auto) 1.3 % 12/13/24 11:59 Baso % (Auto) 0.7 % 12/13/24 11:59 Neut # (Auto) 2.06 10^3/uL (1.8-7.7) 12/13/24 11:59 Lymph # (Auto) 0.5 10^3/uL (0.8-4.8) L 12/13/24 11:59 [place] # (Auto) 0.5 10^3/uL (0.2-0.9) 12/13/24 11:59 Eos # (Auto) 0.0 10^3/uL (0.0-0.8) 12/13/24 11:59 Baso # (Auto) 0.0 10^3/uL (0.0-0.1) 12/13/24 11:59 Nucleated RBC % (auto) 0 % 12/13/24 11:59 Nucleated RBCs # 0.0 /100WBC 12/13/24 11:59 Sodium 138 mmol/L (136-145) 12/13/24 11:59 Potassium 4.0 mmol/L (3.5-5.1) 12/13/24 11:59 Chloride 100 mmol/L (98-107) 12/13/24 11:59 Carbon Dioxide 29 mmol/L (22-29) 12/13/24 11:59 Anion Gap 13.0 (5-19) 12/13/24 11:59 BUN 8 mg/dL (8-23) 12/13/24 11:59 Creatinine 1.1 mg/dL (0.7-1.2) 12/13/24 11:59 GFR Calculation Not Reportable 12/13/24 11:59 Glucose 176 mg/dL (65-115) H 12/13/24 11:59 Calculated Osmolality 289 mOsm/kg (285-295) 12/13/24 11:59 Calcium 8.8 mg/dL (8.5-10.5) 12/13/24 11:59 Magnesium 2.0 mg/dL (1.7-2.3) 12/13/24 11:59 Total Bilirubin 0.2 mg/dL (0.15-1.2) 12/13/24 11:59 AST 9 U/L (0-40) 12/13/24 11:59 ALT < 5 U/L (0-41) 12/13/24 11:59 Alkaline Phosphatase 69 U/L (40-130) 12/13/24 11:59 Total Protein 6.5 g/dL (6.6-8.7) L 12/13/24 11:59 Albumin 3.3 g/dL (3.5-5.2) L 12/13/24 11:59 Globulin 3.2 g/dL (1.3-4.6) 12/13/24 11:59 Urine Color Yellow (Yellow) 12/13/24 12:57 Urine Appearance Cloudy (CLEAR) A 12/13/24 12:57 Urine pH 6.0 (5-7) 12/13/24 12:57 Ur Specific [place] 1.018 (1.005-1.030) 12/13/24 12:57 Urine Protein 2+ (Negative) A 12/13/24 12:57 Urine Glucose (UA) Negative (Normal) 12/13/24 12:57 Urine Ketones Negative (Negative) 12/13/24 12:57 Urine Blood 2+ (Negative) A 12/13/24 12:57 Urine Nitrate Negative (Negative) 12/13/24 12:57 Urine Bilirubin Negative (Negative) 12/13/24 12:57 Urine Urobilinogen 1.0 mg/dL (Negative) 12/13/24 12:57 Ur Leukocyte Esterase 2+ (Negative) A 12/13/24 12:57 Urine RBC >100 /hpf (0-2) H 12/13/24 12:57 Urine WBC 51-100 /hpf (0-5) H 12/13/24 12:57 Ur Squamous Epith Cells 0-5 /hpf (0-5) 12/13/24 12:57 Amorphous Sediment Not Reportable 12/13/24 12:57 Urine Bacteria None seen /hpf (NONE) 12/13/24 12:57 Hyaline Casts 1.65 /lpf 12/13/24 12:57 Urine Yeast 1+ /hpf H 12/13/24 12:57 All radiology interpretation(s) finalized by discharge EKG Data EKG 1: I personally reviewed and interpreted this EKG as follows: EKG Data: 12/13/24 EKG interpretation time: 11:53 Interpretation: nsr hr [address] elevation qrs 83 qtc 418 Discharge Plan Discharge Patient Disposition: Home Clinical Impression: Acute cystitis Condition: Stable Prescriptions: New cephalexin 500 mg capsule 500 mg PO TID 7 Days Qty: 21 0RF No Action aspirin 81 mg tablet,delayed release (DR/EC) 81 mg PO DAILY (DME) nebulizer with tubing See Rx Instructions .Route .MEDSUPPLY Qty: 1 0RF Rx Instructions: As directed ipratropium-albuterol 0.5 mg-3 mg(2.5 mg base)/3 mL solution for nebulization 3 ml inhalation Q6H PRN (Reason: wheezing) Qty: 90 0RF docusate sodium 100 mg capsule 100 mg PO DAILY PRN (Reason: constipation) Qty: 60 0RF lorazepam 1 mg tablet 1 mg PO DAILY PRN (Reason: Anxiety) triamcinolone acetonide 55 mcg aerosol,spray 2 spray intranasal DAILY Rx Instructions: administer into each nostril montelukast 10 mg tablet 10 mg PO DAILY Qty: 90 1RF trazodone 100 mg tablet 100 mg PO QPM Qty: 90 1RF morphine 30 mg tablet 30 mg PO Q6H PRN (Reason: pain) 22 Days Qty: 90 0RF Patient Comments: Patient takes one at bedtime only unless needed (DME) Walker See Rx Instructions .ROUTE .MEDSUPPLY Qty: 1 0RF Rx Instructions: As directed PreserVision AREDS 2 Plus MV 200 mcg-15 mcg- 5 mg-1 mg capsule 1 cap PO DAILY Trelegy Ellipta 100-62.5-25 mcg blister with device 1 ea INHALATION DAILY Qty: 60 5RF triamcinolone acetonide 0.1 % cream 1 applic topical BID Qty: 454 0RF (DME) blood-glucose meter Misc See Rx Instructions .MEDSUPPLY Qty: 1 0RF Rx Instructions: As directed (DME) Blood Glucose Test Strip See Rx Instructions .MEDSUPPLY Qty: 50 11RF Rx Instructions: Twice daily (DME) lancets 25 gauge misc See Rx Instructions .MEDSUPPLY Qty: 100 5RF Rx Instructions: Test twice daily J-Vvch-Gfvcgwl 250 mg tablet 1 tab PO BID Qty: 60 0RF cholecalciferol (vitamin D3) 50 mcg (2,000 unit) capsule 50 mcg PO DAILY Qty: 90 1RF rosuvastatin 40 mg tablet 40 mg PO BEDTIME Qty: 90 1RF levothyroxine 175 mcg tablet See Rx Instructions .ROUTE .COMPLEX Qty: 90 1RF Dose Instruction: TAKE 1 TABLET BY MOUTH EVERY DAY thursday through thursday. take 1/2 tablet BY MOUTH ON thursday, SKIP thursday Rx Instructions: TAKE 1 TABLET BY MOUTH EVERY DAY thursday through thursday. Skip thursday, and thursday (DME) catheter bags See Rx Instructions .Route .MEDSUPPLY Qty: 4 5RF Rx Instructions: As directed Eliquis 5 mg tablet 5 mg PO BID Qty: 90 1RF Xtandi 80 mg tablet 80 mg PO DAILY Qty: 30 0RF ondansetron HCl 8 mg tablet 8 mg PO Q8H PRN (Reason: Nausea And Vomiting) Qty: 60 0RF polyethylene glycol 3350 [Miralax] 17 gram powder in packet 17 g PO DAILY Qty: 30 0RF loratadine [Claritin] 10 mg Tablet 10 mg PO QPM acetaminophen [Tylenol Extra Strength] 500 mg Tablet 500 mg PO BEDTIME PRN (Reason: Fever Or Pain) Probiotic 20 billion cell Capsule 20,000 mmu cells PO DAILY Rx Instructions: administer with a meal metoprolol succinate 25 mg tablet extended release 24 hr 12.5 mg PO QAM famotidine [Pepcid] 40 mg tablet 40 mg PO BID metoclopramide HCl [Reglan] 5 mg tablet 5 mg PO TID folic acid 1 mg Tablet 1 mg PO BID Qty: 30 1RF Renacidin 1,980.6 mg-59.4 mg-980.4mg/30mL solution See Rx Instructions .ROUTE .COMPLEX Rx Instructions: USE DIRECTED PER instruction sheet carbamazepine [Tegretol XR] 100 mg tablet extended release 12 hr See Rx Instructions .ROUTE .COMPLEX Rx Instructions: TAKE 1 TABLET BY MOUTH TWICE DAILY Januvia 50 mg tablet 50 mg PO QAM calcium carbonate-vitamin D3 600 mg-5 mcg (200 unit) Tablet 1 tab PO DAILY magnesium oxide 400 mg (241.3 mg magnesium) Tablet 400 mg PO BID Qty: 60 0RF Discharge Orders: Discharge ED (Routine); Ordered 12/13/24 Ordered By: Vale Mcguire Referrals: Joann Knowles DO [Primary Care Provider, Family Practice] - 4-7 days Discharge Diet: Advance as tolerated Discharge Activity: Resume usual activity Patient Instructions: Urinary Tract Infection in Men (ED) Print Language: Slovenian Coding Level of Care Code ED [employer] Associate for Gale Callahan
--- NOTE | 2024-12-13 11:53 | ECG_ITS ---
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 Measurements Intervals [place] Rate: 70 P: 87 FL: 166 QRS: 69 QRSD: 83 T: 67 QT: 397 QTc: 430 Interpretive Statements SINUS RHYTHM Compared to ECG 11/24/2024 10:23:51 T-wave abnormality no longer present Electronically Signed On 12-13-2024 21:53:41 EXPORT SALES ASSISTANT by Lucinda Glass M.D. [email or web address]
[2024-12-13 12:03] VITALS: BP 120/64; PULSE 77; O2SAT 97
[2024-12-13 12:09] LABS: Hematocrit 31.7 % (37-53); Hemoglobin 10.10 g/dL (11.27-16.99); Mean Corpuscular HGB Conc 31.9 g/dL (30-55); Mean Corpuscular Hemoglobin 32.1 pg (27-33); Mean Corpuscular Volume 100.6 fl (82-101); Nucleated Red Blood Cells % 0 %; Platelet Count 183 10^3/cmm (157-399); Red Blood Count 3.15 10^6/uL (3.85-5.65); White Blood Count 3.07 10^3/uL (3.29-11.43)
[2024-12-13 12:21] LABS: Alanine Aminotransferase < 5 U/L (0-41); Albumin Level 3.3 g/dL (3.5-5.2); Alkaline Phosphatase 69 U/L (40-130); Aspartate Amino Transferase 9 U/L (0-40); Blood Urea Nitrogen 8 mg/dL (8-23); Calcium 8.8 mg/dL (8.5-10.5); Carbon Dioxide 29 mmol/L (22-29); Chloride 100 mmol/L (98-107); Creatinine Clr Calc Pharmacy 64.2031; Globulin 3.2 g/dL (1.3-4.6); Glucose 176 mg/dL (65-115); Magnesium 2.0 mg/dL (1.7-2.3); Osmolality Calculated 289 mOsm/kg (285-295); Sodium 138 mmol/L (136-145); Total Protein 6.5 g/dL (6.6-8.7)
[2024-12-13 12:28] LABS: Anion Gap 13.0 (5-19); Potassium 4.0 mmol/L (3.5-5.1)
[2024-12-13 12:40] VITALS: BP 108/60; PULSE 73; O2SAT 95
--- NOTE | 2024-12-13 12:48 | PC.NURSE ---
Pt has chronic suprapubic catheter. Catheter clamped at 1240 and will check for urine at 1255.
--- NOTE | 2024-12-13 12:58 | PC.NURSE ---
Pt catheter assessed and UA drawn, pt catheter unclamped.
[2024-12-13 13:00] VITALS: BP 128/72; PULSE 71; O2SAT 93
[2024-12-13 13:04] LABS: Glucose Urine UA Negative (Normal); Nitrate Urine Negative (Negative); Specific Gravity, Urine 1.018 (1.005-1.030)
[2024-12-13 13:06] LABS: Add Urine Microscopic? YES; Universal Test for UA Present (0)
[2024-12-13 13:18] LABS: UA Slide Review UA Slide Review Perf
[2024-12-13 13:30] VITALS: BP 122/69; PULSE 68; O2SAT 94
[2024-12-13] MEDS: cefTRIAXone 1,000 mg SDV 1000 MG IVP (13:36)
[2024-12-13 13:56] VITALS: BP 122/69; PULSE 73; O2SAT 94
== END 2024-12-13 13:45 | disposition home or self-care (01) ==
PROVIDERS: Emergency Provider Emergency Medicine; PCP Family Medicine
DX: N30.00 Acute cystitis without hematuria (principal); Z79.82 Long term (current) use of aspirin; Z79.01 Long term (current) use of anticoagulants; Z87.891 Personal history of nicotine dependence; J44.9 Chronic obstructive pulmonary disease, unspecified; E78.5 Hyperlipidemia, unspecified; E11.9 Type 2 diabetes mellitus without complications; Z85.46 Personal history of malignant neoplasm of prostate; Z85.850 Personal history of malignant neoplasm of thyroid; Z85.830 Personal history of malignant neoplasm of bone; I25.10 Atherosclerotic heart disease of native coronary artery without angina pectoris
CPT/HCPCS: 70450; 71045; 80053; 81001; 83735; 85025; 93005; 96361; 96374; 99285; J0696; J7030

== ENCOUNTER 2024-12-20 13:16 | Emergency (ER) | payer OTHER, MEDICAID, SELFPAY ==
--- OUTSIDE RECORDS SUMMARY | 2024-12-15 07:20 | XMS_ITS ---
Author Organization [facility], [facility] Address [address] [place] [address] Care Team Providers Care Digital Marketing Manager Name Role Phone Katelin WYATT, Jose Primary Care Provider Unavailab LYDIA Malave Unavailable [phone] Jong Hercules Unavailable [phone] Allergies Allergen (clinical drug ingredient) Drug/Non Drug Allergy documented on EMR Reaction Allergy Type Onset Date Status vancomycin Vancomycin hives Drug Allergy Activ e REASON FOR VISIT w/PSA/SP tube chg Medications Medication SIG (Take, Route, Frequency, Duration) Notes Start Date End Date Status carBAMazepine ER 100 MG 1 tablet Orally Twice a day Active Abiraterone Acetate 500 MG 2 tablets Ora lly Once a day Active Zoladex 10.8 MG as directed Subcutaneous Active Nitrofurantoin Monohyd Macro 100 MG 1 capsule with food Orally daily; Duration: 90 days 12/15/2024 06/13/2025 Active Cetirizine HCl 10 MG 1 tablet Orally Onc e a day Active Mupirocin 2 % 1 application Externally Twice a day Active Promethazine HCl 6.25 MG/5ML 10 mL as needed Orally every 6 hrs Active Meclizine HCl Active Flonase Active Triamcinolone (oint)-Silicone Active Prochlorperazine Act luis glipiZIDE 2.5 MG 1 tablet 30 minutes before breakfast Orally Once a day Active Finasteride 5 MG 1 tablet Orally Once a day; Duration: 90 days 05/17/2024 05/12/2025 Active Esomeprazole Magnesium 40 MG 1 capsule Orally Once a day Active predniSONE 5 MG 1 tablet Orally Once a day Active Famotidine 20 MG 1 tablet at bedtime as needed Orally twice a day 40mg Active Renacidin - 60mL Irrigation corey y; Duration: 30 days 10/17/2024 12/15/2024 Active Fluconazole 100 MG 1 tablet Orally Active Metoprolol Succinate ER 25 MG 1 tablet Orally Once a day Active PreserVision AREDS 2 Active Metoclopramide HCl 5 MG 1 tablet [...] 1 tablet Orally Once a day Active Xgeva 120 MG/1.7ML as directed Subcutaneous Active Nitroglycerin prn Active Rosuvastatin Calcium 40 MG 1 tablet Oral ly Once a day Active Probiotic Active Tylenol Active Claritin Active Morphine Sulfate 15 MG 1 tablet as needed Orally every 6 hrs As needed Active traZODone HCl 50 MG 1 tablet at bedtime as needed Orally Once a day Active LORazepam 2 MG/ML 1 mL as needed Orall y Twice a day Active Xtandi Active Ondansetron 8 MG 1 tablet on the tong ue and allow to dissolve as needed Orally Once a day Active Vitamin D Active Calcium Active Ipratropium [place] Active Ferrous Sulfate 325 (65 Fe) MG 1 tablet Orally Three times a Week 11/30/2024 Active Tamsulosin HCl 0.4 MG 1 capsule Orally O nce a day Active Folic Acid 1 MG 1 tablet Orally Once a day Active Trelegy Ellipta 100-62.5-25 MCG/ACT 1 puff Inhalation Once a day Active levoFLOXacin 500 MG 1 tablet Orally Once a day 11/30/2024 Active Cephalexin 500 MG 1 capsule Orally breanne ry 6 hrs Active Phospha 250 Neutral 155-852-130 MG 1 tablet Orally Four times a day Active Social History Tobacco Use: [...] ages 21-60 Vital Signs Blood pressure systolic 132 mm Hg 12/16/19 25 Blood pressure diastolic 81 mm Hg 025 Heart Rate 74 /min 12/15/2024 Height 75 in 12/15/2024 Weight 187 lbs 12/15/2024 BMI 23.37 kg/m2 12/15/2024 Height-cm 190.5 cm 12/15/2024 Weight-kg 84.82 kg 12/15/2024 Procedures Procedure Date Ordered Date Performed Result Body Sit e SP Tube Change 12/15/2024 12/15/2024 N/A Encounters Encounter Location Date Provider Diagnosis [facility], [facility] [address] [place] [address] 12/15/2024 Jong Hercules Urinary retention R3 3.9 ; Prostate cancer C61 ; Metastatic adenocarcinoma to prostate C79.82 ; History of orchiectomy, 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 ; S/P radiation therapy Z92.3 ; Encounter for attention to cystostomy Z43.5 and Recurrent UTI N39.0 Assessments Encounter Date Diagnosis (ICD Code) Assessment Notes Treatment Notes Treatment Clinical Notes Section Notes 12/15/2024 Urinary retention (ICD-10 - R33.9) We discussed previous office visit with Dr. Menjivar where patient was needed to have dilation up to 16 Chadian and a 16 Chadian suprapubic tube back into the bladder under direct cystoscopic visualization and did have some prostate blockage but otherwise his urethra was patent also with no pathology within the bladder. Will gain recent culture results from recent hospitalization . Given the recurrent UTIs, recommended on starting a daily prophylatic 100mg macrobid. We will continue with now 4 week suprapubic tube changes here at our office. Continue prostate cancer surveillance given last visits PSA elevation to 7.2, but this was at time of a recent urinary infection. Todays new PSA is 2.8.. His SPT was changed in office today. He will safely returncare in 3 months with provider with surveillance TYRONE/PSA. For now, and through shared decision making we are in agreement with no further workup or intervention at this time with care plan, aside from what was mentioned. Patient has no other voiced concerns or questions. Patient satisfied with plan. 12/15/2024 Prostate cancer (ICD-10 - C61) We discussed previous office visit with Dr. Menjivar where patient was needed to have dilation up to 16 Chadian and a 16 Chadian suprapubic tube back into the bladder under direct cystoscopic visualization and did have some prostate blockage but otherwise his urethra was patent also with no pathology within the bladder. Will gain recent culture results from recent hospitalization . Given the recurrent UTIs, recommended on starting a daily prophylatic 100mg macrobid. We will continue with now 4 week suprapubic tube changes here at our office. Continue prostate cancer surveillance given last visits PSA elevation to 7.2, but this was at time of a recent urinary infection. Todays new PSA is 2.8.. His SPT was changed in office today. He will safely returncare in 3 months with provider with surveillance TYRONE/PSA. For now, and through shared decision making we are in agreement with no further workup or intervention at this time with care plan, aside from what was mentioned. Patient has no other voiced concerns or questions. Patient satisfied with plan. 12/15/2024 Metastatic adenocarcinoma to prostate (ICD-10 - C79.82) We discussed previous office visit with Dr. Menjivar where patient was needed to have dilation up to 16 Chadian and a 16 Chadian suprapubic tube back into the bladder under direct cystoscopic visualization and did have some prostate blockage but otherwise his urethra was patent also with no pathology within the bladder. Will gain recent culture results from recent hospitalization . Given the recurrent UTIs, recommended on starting a daily prophylatic 100mg macrobid. We will continue with now 4 week suprapubic tube changes here at our office. Continue prostate cancer surveillance given last visits PSA elevation to 7.2, but this was at time of a recent urinary infection. Todays new PSA is 2.8.. His SPT was changed in office today. He will safely returncare in 3 months with provider with surveillance TYRONE/PSA. For now, and through shared decision making we are in agreement with no further workup or intervention at this time with care plan, aside from what was mentioned. Patient has no other voiced concerns or questions. Patient satisfied with plan. 12/15/2024 History of orchiectomy, bilateral (ICD-10 - Z90.79) We discussed previous office visit with Dr. Menjivar where patient was needed to have dilation up to 16 Chadian and a 16 Chadian suprapubic tube back into the bladder under direct cystoscopic visualization and did have some prostate blockage but otherwise his urethra was patent also with no pathology within the bladder. Will gain recent culture results from recent hospitalization . Given the recurrent UTIs, recommended on starting a daily prophylatic 100mg macrobid. We will continue with now 4 week suprapubic tube changes here at our office. Continue prostate cancer surveillance given last visits PSA elevation to 7.2, but this was at time of a recent urinary infection. Todays new PSA is 2.8.. His SPT was changed in office today. He will safely returncare in 3 months with provider with surveillance TYRONE/PSA. For now, and through shared decision making we are in agreement with no further workup or intervention at this time with care plan, aside from what was mentioned. Patient has no other voiced concerns or questions. Patient satisfied with plan. 12/15/2024 S/P radiation therapy (ICD-10 - Z92.3) We discussed previous office visit with Dr. Menjivar where patient was needed to have dilation up to 16 Chadian and a 16 Chadian suprapubic tube back into the bladder under direct cystoscopic visualization and did have some prostate blockage but otherwise his urethra was patent also with no pathology within the bladder. Will gain recent culture results from recent hospitalization . Given the recurrent UTIs, recommended on starting a daily prophylatic 100mg macrobid. We will continue with now 4 week suprapubic tube changes here at our office. Continue prostate cancer surveillance given last visits PSA elevation to 7.2, but this was at time of a recent urinary infection. Todays new PSA is 2.8.. His SPT was changed in office today. He will safely returncare in 3 months with provider with surveillance TYRONE/PSA. For now, and through shared decision making we are in agreement with no further workup or intervention at this time with care plan, aside from what was mentioned. Patient has no other voiced concerns or questions. Patient satisfied with plan. 12/15/2024 Encounter for attention to cystostomy (ICD-10 - Z43.5) We discussed previous office visit with Dr. Menjivar where patient was needed to have dilation up to 16 Chadian and a 16 Chadian suprapubic tube back into the bladder under direct cystoscopic visualization and did have some prostate blockage but otherwise his urethra was patent also with no pathology within the bladder. Will gain recent culture results from recent hospitalization . Given the recurrent UTIs, recommended on starting a daily prophylatic 100mg macrobid. We will continue with now 4 week suprapubic tube changes here at our office. Continue prostate cancer surveillance given last visits PSA elevation to 7.2, but this was at time of a recent urinary infection. Todays new PSA is 2.8.. His SPT was changed in office today. He will safely returncare in 3 months with provider with surveillance TYRONE/PSA. For now, and through shared decision making we are in agreement with no further workup or intervention at this time with care plan, aside from what was mentioned. Patient has no other voiced concerns or questions. Patient satisfied with plan. 12/15/2024 Recurrent UTI (ICD-10 - N39.0) We discussed previous office visit with Dr. Menjivar where patient was needed to have dilation up to 16 Chadian and a 16 Chadian suprapubic tube back into the bladder under direct cystoscopic visualization and did have some prostate blockage but otherwise his urethra was patent also with no pathology within the bladder. Will gain recent culture results from recent hospitalization . Given the recurrent UTIs, recommended on starting a daily prophylatic 100mg macrobid. We will continue with now 4 week suprapubic tube changes here at our office. Continue prostate cancer surveillance given last visits PSA elevation to 7.2, but this was at time of a recent urinary infection. Todays new PSA is 2.8.. His SPT was changed in office today. He will safely returncare in 3 months with provider with surveillance TYRONE/PSA. For now, and through shared decision making we are in agreement with no further workup or intervention at this time with care plan, aside from what was mentioned. Patient has no other voiced concerns or questions. Patient satisfied with plan. Plan Of Treatment Medication Medication Name Sig Start Date Stop Date Notes Nitrofurantoin Monohyd Macro 100 MG 1 capsule with food Orally daily; Duration: 90 days 12/15/2024 06/13/2025 Pending Test Test Name Order Date US Renal w/bladder--[id number] 12/15/2024 PSA-Diagnostic 12/15/2024 Next Appt Details Follow Up: 3 Months, Reason: Provider Name:Jong Hercules, 01/11/2025 09:30:00 AM, [address] [place], [address], Provider Name:JONG Simons, 04/04/2025 09:20:00 AM, [address] [place], [address], Progress Notes * ANNAMARIA JACOBS RDOB:[birth year] (79 yo M)Acc No.[id number]:12/15/2024 Progress Notes Patient: ANNAMARIA TOPETE Provider: Roby Hercules APRN :1945 A ge:79 Y S ex:Male Date:12/15/2024 Address:[address] [place], [place] [id number] Pcp:Jose Thomason MD Subjective: * Chief Complaints: * 1 . w/PSA/SP tube chg. * HPI: M igrated HPI: Mr. Jacobs is a 79-yo male with hematuria and h/o prostate cancer s/p bilateral orchiectomy, then radiation and chemo by Dr. Jewell. Previous patient of Dr. Gould. He states his PSA stays between 4.5-5.6. He is a former smoker. He also has a h/o thyroid cancer. He was seen at [facility] ER on 02/28/23 c/o hematuria x2 weeks. CT a/p revealed no acute findings, sclerotic bone lesions, and avascular necrosis of R femoral head. He had a chronic appearing bladder wall thickening, siimple cyst of L kidney measuring 5.5, and a 2 mm nonobstructing stone in L kidney. No hydronephrosis. Kaur placed with high urine output for 2 weeks then removed at [facility]. He initially could not void [...] able to dribble. Patient was seen at [place] ER on 09/19/2023 with complaint of penile [...] of 4.94 and instructed to repeat this and last PSA drawn on 11/10/24 resulting at 7.2. He was in the hospital after last SPT change in hospital for UTI. He is doing alot better. Discharged on 11/27/24 with levaquin. Otherwise, his only concern last office visit was continued clogged SPT changes but has been started on Renacidin irrigation to help with this. Denies fevers or chills. He was instructed to keep close f/u and return in 3-4 weeks with SPT change and new PSA of 2.8 that was drawn on 12/13/24. He was last seen in the ER on 12/13/24 as well at and diagnosed with a mild UTI . He is on cephalexin x7 days. He reports to be doing well now. I ncontinence: Urinary Incontinence A ssessment: A [...] ee Prior sx hx , Hosp in [place] for UTI for four days 11/2024. * [...] - ages 21-60. * Medications: T aking Cephalexin 500 MG Capsule 1 capsule Orally every 6 hrs , Taking Phospha 250 Neutral 155-852-130 MG Tablet 1 tablet Orally Four times a day , Taking Ferrous Sulfate 325 (65 Fe) MG Tablet [...] D , Taking Calcium , Taking Ipratropium [place] , Taking Xtandi , Taking Ondansetron 8 [...] - Allergy. Objective: * Vitals: B P: 132/81 mm Hg, HR: 74 /min, Wt: 187 lbs, Wt-k.82 kg, Ht: 75 in, Ht-cm: 190.5 cm, BMI: 23.37 Index, Body Surface Area: 2.12. * Examination: G eneral Examination: General appearance: [...] ncounter for attention to cystostomy - Z43.5 7 . R ecurrent UTI - N39.0 We discussed previous office visit with Dr. Menjivar where patient was needed to have dilation u p to 16 Chadian and a 16 Chadian suprapubic tube back into the bladder under direct cystoscopic visualization and did have some prostate blockage but otherwise his urethra was patent also with no pathology within the bladder. Will gain recent culture results from recent hospitalization. Given the recurrent UTIs, recommended on starting a daily prophylatic 1 00mg macrobid. W e will continue with now 4 week suprapubic tube changes here at our office. Continue prostate cancer surveillance given last visits PSA elevation to 7.2, but this was at time of a recent urinary infection. Todays new PSA is 2.8.. His SPT was changed in office today. He will safely returncare in 3 months with provider with surveillance TYRONE/PSA. For now, and through shared decision making we are in agreement with no further workup or intervention at this time with care plan, aside from what was mentioned. Patient has no other voiced concerns or questions. Patient satisfied with plan. Plan: * Treatment: ?Procedure: SP Tube Change (Performed Date - 12/15/2024)* Oneyda Bush 12/15/2024 0 1:48:26 PM AUTO TECHNICIAN > 10ml balloon deflated and SP tube removed without complication.16f SP tube inserted, via sterile technique. After clear yellow return 10ml balloon was inflated. Pt tolerated well. 2.?Prostate cancer?LAB: PSA-Diagnostic3.?Recurrent UTI? Start Nitrofurantoin Monohyd Macro Capsule, 100 MG, 1 capsule with food, Orally, daily, 90 days, 90Capsule, Refills 1.?? * Procedure Codes: 5 1705 CHANGE OF BLADDER TUBE * Follow Up: 3 Months * Billing Information: * Visit Code: 99536 Office Visit, Est Pt., Level 4. Modifiers: 25 * Procedure Codes: 63666 CHANGE OF BLADDER TUBE. * TECHNICIAN Sign off status: Completed true * Provider: Roby Hercules APRN Date: 02/15/2024 Generated for Luc mcnally/Dudley/Meryitting on: 02/20/2024 01:21 PM AUTO TECHNICIAN History and Physical Notes * HPI (History [...] h/o thyroid cancer. He was seen at [facility] ER on 02/28/23 c/o hematuria x2 weeks. CT a/p revealed no acute findings, sclerotic bone lesions, and avascular necrosis of R femoral head. He had a chronic appearing bladder wall thickening, siimple cyst of L kidney measuring 5.5, and a 2 mm nonobstructing stone in L kidney. No hydronephrosis. Kaur placed with high urine output for 2 weeks then removed at [facility]. He initially could not void [...] able to dribble. Patient was seen at [place] ER on 09/19/2023 with complaint of penile [...] of 4.94 and instructed to repeat this and last PSA drawn on 11/10/24 resulting at 7.2. He was in the hospital after last SPT change in hospital for UTI. He is doing alot better. Discharged on 11/27/24 with levaquin. Otherwise, his only concern last office visit was continued clogged SPT changes but has been started on Renacidin irrigation to help with this. Denies fevers or chills. He was instructed to keep close f/u and return in 3-4 weeks with SPT change and new PSA of 2.8 that was drawn on 12/13/24. He was last seen in the ER on 12/13/24 as well at and diagnosed with a mild UTI . He is on cephalexin x7 days. He reports to be doing well now. Examination Category Sub-Category Detail Notes Category Not [...]
--- NOTE | 2024-12-20 13:17 | ECG_ITS ---
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 Measurements Intervals Star Rate: 65 P: 75 KS: 171 QRS: 76 QRSD: 86 T: 63 QT: 426 QTc: 445 Interpretive Statements SINUS RHYTHM Compared to ECG 12/13/2024 11:53:44 No significant changes Electronically Signed On 12-21-2024 20:20:53 MACHINE SHORTHAND TEACHER by Umair Barry M.D. [email or web address]
--- NOTE | 2024-12-20 13:18 | XRR_ITS ---
PROCEDURE INFORMATION: Exam: XR Chest Exam date and time: 12/20/2024 1:19 PM Age: 79 years old Clinical indication: Cough and dyspnea; Additional info: Dyspnea/cough TECHNIQUE: Imaging protocol: Radiologic exam of the chest. Views: 1 view. COMPARISON: CR XR chest 1V portable [id number] 12/13/2024 11:44 AM FINDINGS: Lungs: Scattered benign calcified granulomas within the lungs indicating healed granulomatous disease. Mild right basilar opacity within the mid to lateral right lung base at the diaphragm with today's exam. This could be associated with component of right basilar infiltrate with possible component of small effusion at the right costophrenic angle. Remainder of the lungs are clear. No pneumothorax. Pleural spaces: See Lungs finding. Heart/Mediastinum: No cardiomegaly. Vasculature: Arteriosclerosis thoracic aorta. Bones/joints: Sclerotic change within the 7th and 9th ribs could represent blastic metastases as noted with prior exam. XR/XR chest 1V portable [id number] IMPRESSION: Compared with prior exam 12/13/2024, interval new right basilar opacity within the mid to lateral right lung base at the diaphragm suggesting mild right basilar infiltrate with possible component of small effusion at the costophrenic angle. Follow-up with treatment can be performed.
--- OUTSIDE RECORDS SUMMARY | 2024-12-20 13:21 | XMS_ITS | Clinical Summary ---
Author Organization [facility] Address [address] 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
--- OUTSIDE RECORDS SUMMARY | 2024-12-20 13:21 | XMS_ITS | Encounter Summary ---
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
--- OUTSIDE RECORDS SUMMARY | 2024-12-20 13:21 | XMS_ITS | Patient Health Record ---
Author Organization [facility], [facility] Address [address] [place] [address] Care Team Providers Care Drug Room Clerk Name Role Phone Katelin WYATT, Jose Primary Care Provider Unavailab LYDIA Malave Unavailable [phone] JONG MENJIVAR Unavailable [phone] JILLIAN MENDOZA Unavailable [phone] Jong Hercules Unavailable [phone] Allergies Allergen (clinical drug ingredient) Drug/Non Drug Allergy documented on EMR Reaction Allergy Type Onset Date Status vancomycin Vancomycin hives Drug Allergy Activ e Results Component Value Reference Range Notes PSA-Diagnostic Reviewed date:12/13/2024 01:56:41 PM Interpretation: Performing Lab: Notes/Report: [facility] - Urinary Tract Infect ion (HTRx) Reviewed date:09/19/2024 08:54:48 AM Interpretation: Performing Lab:, [facility] at [address], Phone - [phone], Director - [phone] Notes/Report: CTX-M1 (15), M2 (2), M9 (9), [...] 23.000 - 31.618 ppm Mai krusei (Pichia kuiamilzevii) 0 23.0 00 - 30.873 ppm Mai [...] Duration) Notes Start Date End Date Status Mupirocin 2 % 1 application Externally Twice a day Active Promethazine HCl 6.25 MG/5ML 10 mL as needed Orally every 6 hrs Active Zoladex 10.8 MG as directed Subcutaneous Active Cetirizine HCl 10 MG 1 tablet Orally Onc e a day Active levoFLOXacin 500 MG 1 tablet Orally Once a day 11/30/2024 Active predniSONE 5 MG 1 tablet Orally Once a day Active Meclizine HCl Active Flonase Active Triamcinolone (oint)-Silicone Active Montelukast Sodium 10 MG 1 tablet Orally Once a day Active Cephalexin 500 MG 1 capsule Orally breanne ry 6 hrs Active Metoclopramide HCl 5 MG 1 tablet before meals Orally Twice a day Active Finasteride 5 MG 1 tablet Orally Once a day; Duration: 90 days 05/17/2024 05/12/2025 Active Phospha 250 Neutral 155-852-130 MG 1 tablet Orally Four times a day Active Levothyroxine Sodium 175 MCG 1 tablet in the morning on an empty stomach Orally Once a day Active Ferrous Sulfate 325 (65 Fe) MG 1 tablet Orally Three times a Week 11/30/2024 Active Esomeprazole Magnesium 40 MG 1 capsule Orally Once a day Active Xgeva 120 MG/1.7ML as directed Subcutaneous Active Nitroglycerin prn Active Rosuvastatin Calcium 40 MG 1 tablet Oral ly Once a day Active Probiotic Active Morphine Sulfate 15 MG 1 tablet as needed Orally every 6 hrs As needed Active traZODone HCl 50 MG 1 tablet at bedtime as needed Orally Once a day Active LORazepam 2 MG/ML 1 mL as needed Orall y Twice a day Active Nitrofurantoin Monohyd Macro 100 MG 1 capsule with food Orally daily; Duration: 90 days 12/15/2024 06/13/2025 Active Xtandi Active Prochlorperazine Act luis Ondansetron 8 MG 1 tablet on the tong ue and allow to dissolve as needed Orally Once a day Active glipiZIDE 2.5 MG 1 tablet 30 minutes before breakfast Orally Once a day Active carBAMazepine ER 100 MG 1 tablet Orally Twice a day Active Tylenol Active Abiraterone Acetate 500 MG 2 tablets Ora lly Once a day Active Claritin Active Tamsulosin HCl 0.4 MG 1 capsule Orally O nce a day Active Famotidine 20 MG 1 tablet at bedtime as needed Orally twice a day 40mg Active Vitamin D Active Calcium Active Fluconazole 100 MG 1 tablet Orally Active Ipratropium [place] Active Metoprolol Succinate ER 25 MG 1 tablet Orally Once a day Active Januvia 100 MG 1 tablet Orally Once a day 50mg Active Eliquis 5 MG 1 tablet Orally Twic e a day Active Folic Acid 1 MG 1 tablet Orally Once a day Active Aspirin 81 81 MG 1 tablet Orally Once a day Active Trelegy Ellipta 100-62.5-25 MCG/ACT 1 puff Inhalation Once a day Active PreserVision AREDS 2 Active Social History Tobacco Use: Social History [...] Status Risk Notes Problem Incision of bladder (28927877) Encounter for attention to cystostomy (Z43.5) Active confirmed Problem Type II diabetes mellitus without complication (398352088) Type 2 diabetes mellitus without complication, unspecified whether 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 insulin use (E11.9) Active confirmed Problem Neurogenic bladder (933292071) Neurogenic bladder (N31.9) Active confirmed Problem Suprapubic catheter (974670192) Suprapubic catheter (Z93.59) Active confirmed Problem Bladder calculus (93351947) Bladder calculus (N21.0) Active confirmed Problem Encounter for suprapubic catheter care (Z43.5) Active confirmed Problem COPD - Chronic obstructive pulmonary disease (32500060) Chronic obstructive pulmonary disease, unspecified COPD type (J44.9) Active confirmed Problem Change of urinary catheter bag (procedure) (371065480) Catheter (urine) change required (Z46.6) Active confirmed Problem History of radiation exposure (641337444) S/P radiation therapy (Z92.3) Active confirmed Problem Metastatic adenocarcinoma to prostate (3581517262) Metastatic adenocarcinoma to prostate (C79.82) Active confirmed Problem Malignant tumor of prostate (744928788) Prostate cancer (C61) Active confirmed Vital Signs Heart Rate 74 /min 12/15/2024 Height-cm 190.5 cm 12/15/2024 Blood pressure diastolic 81 mm Hg 12/15/2024 Weight-kg 84.82 kg 12/15/2024 Height 75 in 12/15/2024 Blood pressure systolic 132 mm Hg 12/15/2024 Weight 187 lbs 12/15/2024 BMI 23.37 kg/m2 12/15/2024 Procedures Procedure Date Ordered Date Performed [...] N/A SP Tube Change 11/17/2024 11/17/2024 N/A SP Tube Change 12/15/2024 12/15/2024 N/A Encounters Encounter Location Date Provider Diagnosis [facility] ([facility]3] [employer], [facility] [address] [facility] [place] [address] 03/30/2024 LYDIA GONZALES [employer], [facility] [address] [place] [address], [place] [address] 12/29/2023 JONG MENJIVAR Urinary retention R3 3.9 and Encounter for suprapubic catheter care Z43.5 [facility]3] [employer], [facility] [address] [facility] [place] [address] 02/17/2024 JONG MENJIVAR Encounter for suprapubic catheter care Z43.5 and Urinary retention R33.9 [employer], [facility] [address] [facility] [place] [address] 03/02/2024 JONG MENJIVAR Urinary retention R3 3.9 ; Prostate cancer C61 ; Metastatic adenocarcinoma to prostate C79.82 ; History of orchiectomy, 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 ; S/P radiation therapy Z92.3 and Encounter for attention to cystostomy Z43.5 [facility]3] [employer], [facility] [address] [facility] [place] [address] 03/09/2024 JONG MENJIVAR Trigonitis N30.30 [facility] [address] [facility] [place] [address] 04/06/2024 LYDIA GONZALES Urinary retention R3 3.9 ; Prostate cancer C61 ; Metastatic adenocarcinoma to prostate C79.82 ; History of orchiectomy, 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 and S/P radiation therapy Z92.3 [facility] [address] [facility] [place] [address] 05/31/2024 JONG MENJIVAR Urinary retention R3 3.9 ; Prostate cancer C61 ; Metastatic adenocarcinoma to prostate C79.82 ; History of orchiectomy, 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 and S/P radiation therapy Z92.3 [facility] [address] [facility] [place] [address] 06/21/2024 JONG MENJIVAR Encounter for suprapubic catheter care Z43.5 and Urinary retention R33.9 [facility], [facility] [address] [facility] [place] [address] 07/12/2024 JONG MENJIVAR Encounter for suprapubic catheter care Z43.5 and Prostate cancer C61 [facility] [address] [facility] [place] [address] 08/03/2024 JONG MENJIVAR Encounter for suprapubic catheter care Z43.5 and Prostate cancer C61 [facility] [address] [facility] [place] [address] 08/18/2024 Jong Pevril Urinary retention R3 3.9 ; Prostate cancer C61 ; Metastatic adenocarcinoma to prostate C79.82 ; History of orchiectomy, 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 ; S/P radiation therapy Z92.3 and Encounter for attention to cystostomy Z43.5 [facility] [address] [facility] [place] [address] 09/01/2024 Jong Pevril Encounter for attent ion to cystostomy Z43.5 and Urinary retention R33.9 [facility] [address] [facility] [place] [address] 09/15/2024 Jong Pevril Encounter for attent ion to cystostomy Z43.5 ; Dysuria R30.0 and Acute urinary retention R33.8 [facility], [facility] [address] [place] [address] 09/29/2024 Jong Pevril Encounter for attent ion to cystostomy Z43.5 ; Neurogenic bladder N31.9 and Bladder calculus N21.0 [facility] [address] [facility] [place] [address] 10/13/2024 [facility] Encounter for attent ion to cystostomy Z43.5 and Neurogenic bladder N31.9 [facility] [address] [place] [address] 10/27/2024 [facility] Encounter for attent ion to cystostomy Z43.5 ; Prostate cancer C61 and Urinary retention R33.9 [facility] [address] [place] [address] 11/17/2024 [facility] Encounter for attent ion to cystostomy Z43.5 ; Prostate cancer C61 and Urinary retention R33.9 [facility] [address] [facility] [place] [address] 11/30/2024 Jong Pevril Urinary retention R3 3.9 ; Prostate cancer C61 ; Metastatic adenocarcinoma to prostate C79.82 ; History of orchiectomy, 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 ; S/P radiation therapy Z92.3 and Encounter for attention to cystostomy Z43.5 [facility] [address] [facility] [place] [address] 12/15/2024 Jong Pevril Urinary retention R3 3.9 ; Prostate cancer C61 ; Metastatic adenocarcinoma to prostate C79.82 ; History of orchiectomy, 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 ; S/P radiation therapy Z92.3 ; Encounter for attention to cystostomy Z43.5 and Recurrent UTI N39.0 [facility] [address] [facility] [place] [address] 01/18/2024 JILLIAN MENDOZA [facility] [address] [facility] [place] [address] 02/16/2024 LYDIA GONZALES [facility] [address] [facility] [place] [address] 02/18/2024 LYDIA GONZALES [facility] [address] [facility] [place] [address] 2024 JONG MENJIVAR [facility] [address] [facility] [place] [address] 2024 JONG HAMMONDKER [facility] [address] [facility] [place] [address] 2024 LYDIA GONZALES [facility] [address] [facility] [place] [address] 04/04/2024 LYDIA REANO [facility] [address] [facility] [place] [address] 04/05/2024 JONG HAMMONDKER [facility] [address] [facility] [place] [address] 05/17/2024 JONG MENJIVAR [facility] [address] [place] [address] 05/24/2024 LYDIA REANO [facility] [address] [facility] [place] [address] 05/30/2024 LYDIA MARINANO [facility] [address] [facility] [place] [address] 09/19/2024 Jong eHrcules [facility] [address] [facility] [place] [address] 10/17/2024 LYDIA GONZALES Assessments Encounter Date Diagnosis [...] next office visit and then again q4wks. 03/09/2024 Trigonitis (ICD-10 - N30.30) 06/21/2024 Encounter [...] return in 3wks of repeat change. 03/02/2024 Prostate cancer (ICD-10 - C61) PSA [...] and scheduled for next available cystolithalopaxy at [facility]. He recently started having sptube [...] and scheduled for next available cystolithalopaxy at [facility]. He recently started having sptube [...] needed to have dilation up to 16 Swiss and a 16 Swiss suprapubic tube back into the bladder under [...] needed to have dilation up to 16 Swiss and a 16 Swiss suprapubic tube back into the bladder under [...] needed to have dilation up to 16 Swiss and a 16 Swiss suprapubic tube back into the bladder under [...] needed to have dilation up to 16 Swiss and a 16 Swiss suprapubic tube back into the bladder under [...] or questions. Patient satisfied with plan. 12/15/2024 Urinary retention (ICD-10 - R33.9) We discussed previous office visit with Dr. Menjivar where patient was needed to have dilation up to 16 Swiss and a 16 Swiss suprapubic tube back into the bladder under [...] emergency room could only place a 10 Swiss suprapubic tube. I was able to remove this and dilate up to 16 Swiss and get a 16 Swiss suprapubic tube back into the bladder under [...] than 50% of that time in direct sfhg-in-pbom discussion. 04/06/2024 Prostate cancer (ICD-10 - C61) 04/06/2024 Urinary retention (ICD-10 - R33.9) 05/31/2024 Prostate cancer (ICD-10 - C61) He had a clogged SP tube and outside emergency room could only place a 10 Swiss suprapubic tube. I was able to remove this and dilate up to 16 Swiss and get a 16 Swiss suprapubic tube back into the bladder under [...] than 50% of that time in direct zapx-wd-nbsy discussion. 04/06/2024 Metastatic adenocarcinoma to prostate (ICD-10 - C79.82) 08/03/2024 Prostate cancer (ICD-10 - C61) Pt here for routine sptube change and he tolerated well. He will return in 3wks of repeat change. 11/30/2024 Prostate cancer (ICD-10 - C61) We discussed previous office visit with Dr. Menjivar where patient was needed to have dilation up to 16 Swiss and a 16 Swiss suprapubic tube back into the bladder under [...] needed to have dilation up to 16 Swiss and a 16 Swiss suprapubic tube back into the bladder under [...] needed to have dilation up to 16 Swiss and a 16 Swiss suprapubic tube back into the bladder under [...] or questions. Patient satisfied with plan. 03/02/2024 Metastatic adenocarcinoma to prostate (ICD-10 - [...] and scheduled for next available cystolithalopaxy at [facility]. He recently started having sptube [...] and scheduled for next available cystolithalopaxy at [facility]. He recently started having sptube [...] needed to have dilation up to 16 Swiss and a 16 Swiss suprapubic tube back into the bladder under [...] needed to have dilation up to 16 Swiss and a 16 Swiss suprapubic tube back into the bladder under [...] needed to have dilation up to 16 Swiss and a 16 Swiss suprapubic tube back into the bladder under [...] emergency room could only place a 10 Swiss suprapubic tube. I was able to remove this and dilate up to 16 Swiss and get a 16 Swiss suprapubic tube back into the bladder under [...] than 50% of that time in direct ojhi-nu-nypa discussion. 04/06/2024 History of orchiectomy, bilateral (ICD-10 - Z90.79) 05/31/2024 History of orchiectomy, bilateral (ICD-10 - Z90.79) He had a clogged SP tube and outside emergency room could only place a 10 Swiss suprapubic tube. I was able to remove this and dilate up to 16 Swiss and get a 16 Swiss suprapubic tube back into the bladder under [...] than 50% of that time in direct tkee-nk-uage discussion. 04/06/2024 S/P radiation therapy (ICD-10 - Z92.3) 12/15/2024 S/P radiation therapy (ICD-10 - Z92.3) We discussed previous office visit with Dr. Menjivar where patient was needed to have dilation up to 16 Swiss and a 16 Swiss suprapubic tube back into the bladder under [...] needed to have dilation up to 16 Swiss and a 16 Swiss suprapubic tube back into the bladder under [...] needed to have dilation up to 16 Swiss and a 16 Swiss suprapubic tube back into the bladder under [...] and scheduled for next available cystolithalopaxy at [facility]. He recently started having sptube [...] needed to have dilation up to 16 Swiss and a 16 Swiss suprapubic tube back into the bladder under [...] or questions. Patient satisfied with plan. 03/02/2024 Encounter for attention to cystostomy (ICD-10 [...] and scheduled for next available cystolithalopaxy at [facility]. He recently started having sptube [...] and it is both accurate and complete. 12/15/2024 Encounter for attention to cystostomy (ICD-10 - Z43.5) We discussed previous office visit with Dr. Menjivar where patient was needed to have dilation up to 16 Swiss and a 16 Swiss suprapubic tube back into the bladder under [...] needed to have dilation up to 16 Swiss and a 16 Swiss suprapubic tube back into the bladder under [...] emergency room could only place a 10 Swiss suprapubic tube. I was able to remove this and dilate up to 16 Swiss and get a 16 Swiss suprapubic tube back into the bladder under [...] than 50% of that time in direct iksh-ht-xiaf discussion. 12/15/2024 Recurrent UTI (ICD-10 - N39.0) We discussed previous office visit with Dr. Menjivar where patient was needed to have dilation up to 16 Swiss and a 16 Swiss suprapubic tube back into the bladder under [...] needed to have dilation up to 16 Swiss and a 16 Swiss suprapubic tube back into the bladder under [...] Order Date Chest X-ray PA and lateral [id number] Electrocardiogram (EKG) 06/17/2023 PSA, TOTAL (5363) 08/18/2024 SP Tube Change 10/13/2024 Catheter Insertion-Routine 09/15/2024 US Renal w/bladder--06597 12/15/2024 PSA-Diagnostic 12/15/2024 Future Test Test Name Order Date PSA, TOTAL (5363) 01/10/2024 Next Appt Details Provider Name:Jong Hercules, 01/11/2025 09:30:00 AM, [address] [facility] [place], [address], Provider Name:JONG Simons, 04/04/2025 09:20:00 AM, [address] [facility] [place], [address], Insurance Providers Payer Name Payer Address Payer Phone Subscriber Number Group Number Insured Name Patient Relationship to Insured Coverage Start Date Coverage End Date [facility] Medicare Advantage PPO [address] [address] [place], [place] [id number] [facility] [id number] PENNINGT ONANNAMARIA Self - patient is the insured [place] [address] [place], [place] [id number] PENNINGT ONANNAMARIA Self - patient is the insured Medical (General) History Medical History History ICD Code Pneumonia Arthritis Bladder infections Diabetes prostate cancer Hernia Hernia Back Trouble High Blood Pressure Hematuria COPD LUTS bone cancer Surgical History Surgery Date(Month/Year) Left Knee Replacement 02/2004 Right Knee Replacement 09/2012 Orchiectomy 04/2017 Back Surgery 02/2020 Hospitalization History Reason Date(Month/Year) Hosp in [place] for UTI for four day s 11/2024 See Prior sx hx
--- OUTSIDE RECORDS SUMMARY | 2024-12-20 13:21 | XMS_ITS | Clinical Summary ---
Author Organization [facility] Address [address] 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
[2024-12-20 13:25] VITALS: BP 146/91; PULSE 70; RESP 17; TEMP 36.6; O2SAT 98
[2024-12-20 13:42] LABS: Hematocrit 30.8 % (37-53); Hemoglobin 9.80 g/dL (11.27-16.99); Mean Corpuscular HGB Conc 31.8 g/dL (30-55); Mean Corpuscular Hemoglobin 31.6 pg (27-33); Mean Corpuscular Volume 99.4 fl (82-101); Nucleated Red Blood Cells % 0 %; Platelet Count 210 10^3/cmm (157-399); Red Blood Count 3.10 10^6/uL (3.85-5.65); White Blood Count 2.93 10^3/uL (3.29-11.43)
--- NOTE | 2024-12-20 13:43 | W.ED.EXTPRO ---
HPI - Extremity Problem General: Chief complaint: Extremity Problem,Nontraumatic Stated complaint: Legs swelling up and pain all over body Time Seen by Provider: 12/20/24 13:39 History of Present Illness: 79-year-old man with a history of super pubic catheter placement, coronary artery disease, prostate cancer, DVT, chronic anticoagulation on Eliquis, peripheral neuropathy, type 2 diabetes, hypertension, COPD and chronic pain syndrome on chronic morphine therapy who presents to the emergency room with lower extremity swelling and pain. Says he has more of a burning sensation than he usually does in his feet and the swelling has gone from his feet and up into his lower legs. No shortness of breath. No chest pain. No hypoxemia. No tachycardia. He appears in no distress. No fevers. No chest pain. Related Data Home Medications ?Medication ?Instructions ?Recorded ?Confirmed aspirin 81 mg tablet,delayed 81 mg PO DAILY 03/29/19 12/19/24 release mv-mn-folic 200 mcg-vit K 15 1 cap PO DAILY 04/09/23 12/19/24 mcg-lutein 5 mg-zeaxanthin 1 mg capsule (PreserVision AREDS 2 Plus Multivit) loratadine 10 mg tablet (Claritin) 10 mg PO QPM 07/31/23 12/19/24 lorazepam 1 mg tablet 1 mg PO DAILY PRN Anxiety 02/01/24 12/19/24 acetaminophen 500 mg tablet 500 mg PO BEDTIME PRN Fever Or Pain 04/24/24 12/19/24 (Tylenol Extra Strength) lactobacillus comb no.10 20 20,000 mmu cells PO DAILY 04/24/24 12/19/24 billion cell capsule (Probiotic) triamcinolone acetonide 55 mcg 2 spray intranasal DAILY 05/18/24 12/19/24 nasal spray aerosol metoprolol succinate 25 mg 12.5 mg PO QAM 05/20/24 12/19/24 tablet,extended release 24 hr famotidine 40 mg tablet (Pepcid) 40 mg PO BID 09/30/24 12/19/24 metoclopramide HCl 5 mg tablet 5 mg PO TID 09/30/24 12/19/24 (Reglan) calcium 600 mg (as 1 tab PO DAILY 11/24/24 12/19/24 carbonate)-vitamin D3 5 mcg (200 unit) tablet carbamazepine 100 mg See Rx Instructions .Route .COMPLEX 11/24/24 12/19/24 tablet,extended release,12 hr (Tegretol XR) citric ac 1980.6 mg-glucono 59.4 See Rx Instructions .Route .COMPLEX 11/24/24 12/19/24 mg-mag carb 980.4 mg/30 mL irrig.soln (Renacidin) sitagliptin phosphate 50 mg tablet 50 mg PO QAM 11/24/24 12/19/24 (Januvia) Previous Rx's ?Medication ?Instructions ?Recorded Walker #1 ea 07/28/22 fluticasone fur. 100 mcg-umeclid 1 ea inhalation DAILY #60 ea 10/13/23 62.5 mcg-vilant 25 mcg inhalat.powder (Trelegy Ellipta) ipratropium 0.5 mg-albuterol 3 mg 3 ml inhalation Q6H PRN wheezing 11/06/23 (2.5 mg base)/3 mL nebulization #90 mL soln nebulizer with tubing #1 ea 11/06/23 polyethylene glycol 3350 17 gram 17 g PO DAILY #30 ea 01/18/24 oral powder packet (Miralax) docusate sodium 100 mg capsule 100 mg PO DAILY PRN constipation 01/29/24 #60 caps cholecalciferol (vitamin D3) 50 50 mcg PO DAILY #90 caps 04/26/24 mcg (2,000 unit) capsule rosuvastatin 40 mg tablet 40 mg PO BEDTIME #90 tabs 07/12/24 levothyroxine 175 mcg tablet See Rx Instructions .Route 07/19/24 .COMPLEX #90 tabs montelukast 10 mg tablet 10 mg PO DAILY #90 tabs 07/21/24 trazodone 100 mg tablet 100 mg PO QPM #90 tabs 07/21/24 folic acid 1 mg tablet 1 mg PO BID #30 tabs 10/05/24 catheter bags #4 ea 10/07/24 blood sugar diagnostic (Blood #50 ea 10/14/24 Glucose Test strips) blood-glucose meter #1 ea 10/14/24 lancets 25 gauge #100 ea 10/14/24 apixaban 5 mg tablet (Eliquis) 5 mg PO BID #90 tabs 11/01/24 triamcinolone acetonide 0.1 % 1 applic topical BID #454 grams 11/01/24 topical cream magnesium oxide 400 mg (241.3 mg 400 mg PO BID #60 tabs 11/27/24 magnesium) tablet enzalutamide 80 mg tablet (Xtandi) 80 mg PO DAILY #30 tabs 11/28/24 morphine 30 mg immediate release 30 mg PO Q6H PRN pain 22 days #90 12/01/24 tablet tabs sodium di- and 1 tab PO BID #60 tabs 12/08/24 monophosphate-potassium phos monobasic 250 mg tablet (C-Xwuf-Apsttsr) ondansetron HCl 8 mg tablet 8 mg PO Q8H PRN Nausea And 12/12/24 Vomiting #60 tabs furosemide 40 mg tablet (Lasix) 40 mg PO QAM 3 days #3 tabs 12/20/24 Allergies Allergy/AdvReac Type Severity Reaction Status Date / Time vancomycin Allergy HIVES,RASH Verified 12/20/24 13:30 Review of Systems Narrative: Constitutional symptoms: Negative except as documented in HPI. Skin symptoms: Negative except as documented in HPI. Eye symptoms: Negative except as documented in HPI. ENMT symptoms: Negative except as documented in HPI. Respiratory symptoms: Negative except as documented in HPI. Cardiovascular symptoms: Negative except as documented in HPI. Gastrointestinal symptoms: Negative except as documented in HPI. Genitourinary symptoms: Negative except as documented in HPI. Musculoskeletal symptoms: Negative except as documented in HPI. Neurologic symptoms: Negative except as documented in HPI. Psychiatric symptoms: Negative except as documented in HPI. Endocrine symptoms: Negative except as documented in HPI. PFSH ED PFSH: Medical History (Updated 12/20/24 @ 14:29 by Dee Jacobs MD) Suprapubic catheter Infection with multi-drug resistant microorganisms Coronary artery disease involving [place] heart without angina pectoris, unspecified vessel or lesion type Nausea & vomiting Weight loss Viral URI with cough Hospital discharge follow-up Papillary thyroid carcinoma Suprapubic catheter Prostate cancer metastatic to bone Chronic deep vein thrombosis (DVT) of popliteal vein of left lower extremity Lower urinary tract symptoms (LUTS) Cancer related pain Urinary tract infection Right kidney mass Burning sensation of feet Lumbar stenosis with neurogenic claudication Intervertebral disc disorder with radiculopathy of lumbosacral region Metastasis to bone Dyslipidemia History of diverticulitis Type 2 diabetes mellitus without complication, without long-term current use of insulin Benign essential HTN 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 Gastroesophageal reflux disease without esophagitis COPD (chronic obstructive pulmonary disease) 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 Prostate cancer History of thyroid cancer Surgical History History of bladder surgery History of prostate surgery H/O transurethral resection of prostate History of cystostomy S/P cystourethroscopy with dilation of urethral stricture History of lumbar discectomy History of colonoscopy (07/12/19) diverticulosis, repeat 10 years History of orchiectomy, bilateral H/O total knee replacement BILATERAL H/O hernia repair History of hemorrhoidectomy History of uvulectomy History of thyroidectomy, subtotal Family History Mother , in her 90's Cancer Diabetes Sister Diabetes Father , in his 70's No problems noted. Other CAD (coronary artery disease) Social History Smoking and tobacco/nicotine status: never used tobacco/nicotine Quit status (tobacco/nicotine): has quit using Year quit tobacco: 2022 Former quit date comment: stopped in February of this year Alcohol intake: never Substance/Drug Use: never Lives independently: Yes Household members: spouse Marital status: Current occupational status: retired Physical Exam Narrative: EXAM NARRATIVE: General: Alert, no acute distress. Skin: Warm, dry. Head: Normocephalic, atraumatic. Neck: Supple, trachea midline. Eye: Extraocular movements are intact. Ears, nose, mouth and throat: mucosa moist. Cardiovascular: Regular, Normal peripheral perfusion. 1-2+ pedal and tibial edema to the mid carroll. Respiratory: Lungs are clear to auscultation, respirations are non-labored, breath sounds are equal, Symmetrical chest wall expansion. Gastrointestinal: Soft, Nontender, Non distended Musculoskeletal: Normal ROM, no deformity. Neurological: Alert and oriented, No focal neurological deficit observed. Psychiatric: Cooperative, appropriate mood & affect. Course Vital Signs: Vital signs: Vital Signs Temperature 97.8 F 12/20/24 13:25 Pulse Rate 70 12/20/24 13:25 Respiratory Rate 17 12/20/24 13:25 Blood Pressure 146/91 12/20/24 13:25 Pulse Oximetry 98 12/20/24 13:25 MDM - Extremity (Nontraumatic) Medical Decision Making Medical decision making: Patient's reason for coming to the emergency room: Lower extremity pain and swelling Social determinants: Patient is and retired I reviewed the patient's medical record. 79-year-old man with a history of super pubic catheter placement, coronary artery disease, prostate cancer, DVT, chronic anticoagulation on Eliquis, peripheral neuropathy, type 2 diabetes, hypertension, COPD and chronic pain syndrome on chronic morphine therapy I reviewed the patient's current home meds I reviewed prescription monitoring. Patient is on morphine. Alternate historians: does attempt to give some history as well. Differential diagnosis including but not limited to and based on the above HPI, review of systems and physical exam: for patient with edema: Congestive heart failure. Kidney failure. DVT / Pulmonary embolism. Protein malnutrition. Cirrhosis. Orders placed to evaluate differential diagnosis based on the above differential, HPI and physical exam EKG: Time 1345. Rate 65. Normal sinus rhythm, No ST-T changes, no ectopy, normal VA & QRS intervals, This was reviewed and interpreted by myself the ER physician at 1350. Chest x-ray: Right basilar opacity that is probably atelectasis related to a small effusion. He has no pneumonia type symptoms. No cough. No fever. He is receiving Lasix here and a short series at home. Follow with PCP. He has an appointment on Thursday. Lab Review: Laboratory results were reviewed and interpreted by myself the emergency room physician. No leukocytosis, patient has mild chronic leukopenia. Mild stable anemia. Renal function at or near baseline at thirteen 1.1. Assessment of risk: Level of risk: Moderate to high risk patient. Multiple comorbidities. Chronic pain medication. Chronic anticoagulation. Hospitalization considerations: No evidence of any abnormalities or issues that would require admission today. Reexamination: Patient remained stable. No increased work of breathing. No altered mental status. No focal motor deficits. Assessment and plan: Dependent edema ?IV Lasix and then a 3-day course of Lasix at home he has an appointment on Thursday with his PCP - Discharged home - Discussed plan with patient. Answered any questions. - Evaluation and treatment of this problem were appropriate in the emergency setting. Lab Data 12/20/24 13:33 12/20/24 13:33 Radiology Impressions Chest X-Ray 12/20/24 13:18 IMPRESSION: Compared with prior exam 12/13/2024, interval new right basilar opacity within the mid to lateral right lung base at the diaphragm suggesting mild right basilar infiltrate with possible component of small effusion at the costophrenic angle. Follow-up with treatment can be performed. Laboratory Results WBC 2.93 10^3/uL (3.29-11.43) L 12/20/24 13:33 RBC 3.10 10^6/uL (3.85-5.65) L 12/20/24 13:33 Hgb 9.80 g/dL (11.27-16.99) L 12/20/24 13:33 Hct 30.8 % (37-53) L 12/20/24 13:33 MCV 99.4 fl (82-101) 12/20/24 13:33 MCH 31.6 pg (27-33) 12/20/24 13:33 MCHC 31.8 g/dL (30-55) 12/20/24 13:33 RDW 13.4 % (12.1-15.1) 12/20/24 13:33 Plt Count 210 10^3/cmm (157-399) 12/20/24 13:33 MPV 9.8 fL (7.4-10.4) 12/20/24 13:33 Neut % (Auto) 57.0 % 12/20/24 13:33 Lymph % (Auto) 25.3 % 12/20/24 13:33 Bradley % (Auto) 15.0 % 12/20/24 13:33 Eos % (Auto) 1.4 % 12/20/24 13:33 Baso % (Auto) 1.0 % 12/20/24 13:33 Neut # (Auto) 1.67 10^3/uL (1.8-7.7) L 12/20/24 13:33 Lymph # (Auto) 0.7 10^3/uL (0.8-4.8) L 12/20/24 13:33 Bradley # (Auto) 0.4 10^3/uL (0.2-0.9) 12/20/24 13:33 Eos # (Auto) 0.0 10^3/uL (0.0-0.8) 12/20/24 13:33 Baso # (Auto) 0.0 10^3/uL (0.0-0.1) 12/20/24 13:33 Nucleated RBC % (auto) 0 % 12/20/24 13:33 Nucleated RBCs # 0.0 /100WBC 12/20/24 13:33 Sodium 140 mmol/L (136-145) 12/20/24 13:33 Potassium 4.2 mmol/L (3.5-5.1) 12/20/24 13:33 Chloride 101 mmol/L (98-107) 12/20/24 13:33 Carbon Dioxide 27 mmol/L (22-29) 12/20/24 13:33 Anion Gap 16.2 (5-19) 12/20/24 13:33 BUN 13 mg/dL (8-23) 12/20/24 13:33 Creatinine 1.1 mg/dL (0.7-1.2) 12/20/24 13:33 GFR Calculation Not Reportable 12/20/24 13:33 Glucose 111 mg/dL (65-115) 12/20/24 13:33 Calculated Osmolality 291 mOsm/kg (285-295) 12/20/24 13:33 Calcium 8.8 mg/dL (8.5-10.5) 12/20/24 13:33 Total Bilirubin 0.3 mg/dL (0.15-1.2) 12/20/24 13:33 AST 10 U/L (0-40) 12/20/24 13:33 ALT < 5 U/L (0-41) 12/20/24 13:33 Alkaline Phosphatase 61 U/L (40-130) 12/20/24 13:33 NT-Pro-B Natriuret Pep 539 pg/mL (0-450) H 12/20/24 13:33 Total Protein 6.9 g/dL (6.6-8.7) 12/20/24 13:33 Albumin 3.4 g/dL (3.5-5.2) L 12/20/24 13:33 Globulin 3.5 g/dL (1.3-4.6) 12/20/24 13:33 All radiology interpretation(s) finalized by discharge Discharge Plan Discharge Patient Disposition: Home Clinical Impression: Edema Condition: Stable Prescriptions: New furosemide [Lasix] 40 mg tablet 40 mg PO QAM 3 Days Qty: 3 0RF No Action aspirin 81 mg tablet,delayed release (DR/EC) 81 mg PO DAILY (DME) nebulizer with tubing See Rx Instructions .Route .MEDSUPPLY Qty: 1 0RF Rx Instructions: As directed ipratropium-albuterol 0.5 mg-3 mg(2.5 mg base)/3 mL solution for nebulization 3 ml inhalation Q6H PRN (Reason: wheezing) Qty: 90 0RF docusate sodium 100 mg capsule 100 mg PO DAILY PRN (Reason: constipation) Qty: 60 0RF lorazepam 1 mg tablet 1 mg PO DAILY PRN (Reason: Anxiety) triamcinolone acetonide 55 mcg aerosol,spray 2 spray intranasal DAILY Rx Instructions: administer into each nostril montelukast 10 mg tablet 10 mg PO DAILY Qty: 90 1RF trazodone 100 mg tablet 100 mg PO QPM Qty: 90 1RF morphine 30 mg tablet 30 mg PO Q6H PRN (Reason: pain) 22 Days Qty: 90 0RF Patient Comments: Patient takes one at bedtime only unless needed (DME) Walker See Rx Instructions .ROUTE .MEDSUPPLY Qty: 1 0RF Rx Instructions: As directed PreserVision AREDS 2 Plus MV 200 mcg-15 mcg- 5 mg-1 mg capsule 1 cap PO DAILY Trelegy Ellipta 100-62.5-25 mcg blister with device 1 ea INHALATION DAILY Qty: 60 5RF triamcinolone acetonide 0.1 % cream 1 applic topical BID Qty: 454 0RF (DME) blood-glucose meter Misc See Rx Instructions .MEDSUPPLY Qty: 1 0RF Rx Instructions: As directed ([facility]) Blood Glucose Test Strip See Rx Instructions .MEDSUPPLY Qty: 50 11RF Rx Instructions: Twice daily (DME) lancets 25 gauge misc See Rx Instructions .MEDSUPPLY Qty: 100 5RF Rx Instructions: Test twice daily H-[id number]-Zvkggku 250 mg tablet 1 tab PO BID Qty: 60 0RF cholecalciferol (vitamin D3) 50 mcg (2,000 unit) capsule 50 mcg PO DAILY Qty: 90 1RF rosuvastatin 40 mg tablet 40 mg PO BEDTIME Qty: 90 1RF levothyroxine 175 mcg tablet See Rx Instructions .ROUTE .COMPLEX Qty: 90 1RF Dose Instruction: TAKE 1 TABLET BY MOUTH EVERY DAY thursday through thursday. take 1/2 tablet BY MOUTH ON thursday, SKIP thursday Rx Instructions: TAKE 1 TABLET BY MOUTH EVERY DAY thursday through thursday. Skip thursday, and thursday (DME) catheter bags See Rx Instructions .Route .MEDSUPPLY Qty: 4 5RF Rx Instructions: As directed Eliquis 5 mg tablet 5 mg PO BID Qty: 90 1RF Xtandi 80 mg tablet 80 mg PO DAILY Qty: 30 0RF ondansetron HCl 8 mg tablet 8 mg PO Q8H PRN (Reason: Nausea And Vomiting) Qty: 60 0RF polyethylene glycol 3350 [Miralax] 17 gram powder in packet 17 g PO DAILY Qty: 30 0RF loratadine [Claritin] 10 mg Tablet 10 mg PO QPM acetaminophen [Tylenol Extra Strength] 500 mg Tablet 500 mg PO BEDTIME PRN (Reason: Fever Or Pain) Probiotic 20 billion cell Capsule 20,000 mmu cells PO DAILY Rx Instructions: administer with a meal metoprolol succinate 25 mg tablet extended release 24 hr 12.5 mg PO QAM famotidine [Pepcid] 40 mg tablet 40 mg PO BID metoclopramide HCl [Reglan] 5 mg tablet 5 mg PO TID folic acid 1 mg Tablet 1 mg PO BID Qty: 30 1RF Renacidin 1,980.6 mg-59.4 mg-980.4mg/30mL solution See Rx Instructions .ROUTE .COMPLEX Rx Instructions: USE DIRECTED PER instruction sheet carbamazepine [Tegretol XR] 100 mg tablet extended release 12 hr See Rx Instructions .ROUTE .COMPLEX Rx Instructions: TAKE 1 TABLET BY MOUTH TWICE DAILY Januvia 50 mg tablet 50 mg PO QAM calcium carbonate-vitamin D3 600 mg-5 mcg (200 unit) Tablet 1 tab PO DAILY magnesium oxide 400 mg (241.3 mg magnesium) Tablet 400 mg PO BID Qty: 60 0RF Discharge Orders: Discharge ED (Routine); Ordered 12/20/24 Ordered By: Dee Jacobs Referrals: Joann Knowles DO [Primary Care Provider, Family Practice] Discharge Diet: Usual diet Discharge Activity: Increase activity as tolerated Patient Instructions: Edema (ED), Opioid Safety, Pain Management, Patient Portal & Dionte Instructions Activity Restrictions/Additional Instructions: Thank you for choosing [facility] for your healthcare needs today. You have been screened and evaluated and felt safe for discharge. Health conditions do change or evolve sometimes and as such it is important that you follow up with your Primary Doctor to be re checked, 3-5 days is a general good time frame for follow up. You are always welcome to return to the ED for re assessment if your symptoms are worsening or you have new concerns Print Language: Irish Coding Level of Care Code ED Customer Contact Representative for Gale Callahan
[2024-12-20 14:08] LABS: Alanine Aminotransferase < 5 U/L (0-41); Albumin Level 3.4 g/dL (3.5-5.2); Alkaline Phosphatase 61 U/L (40-130); Anion Gap 16.2 (5-19); Aspartate Amino Transferase 10 U/L (0-40); Blood Urea Nitrogen 13 mg/dL (8-23); Calcium 8.8 mg/dL (8.5-10.5); Carbon Dioxide 27 mmol/L (22-29); Chloride 101 mmol/L (98-107); Creatinine Clr Calc Pharmacy 65.1813; Globulin 3.5 g/dL (1.3-4.6); Glucose 111 mg/dL (65-115); NT Pro B Type Natriuretic Pept 539 pg/mL (0-450); Osmolality Calculated 291 mOsm/kg (285-295); Potassium 4.2 mmol/L (3.5-5.1); Sodium 140 mmol/L (136-145); Total Protein 6.9 g/dL (6.6-8.7)
[2024-12-20 14:30] VITALS: BP 150/76; PULSE 60; RESP 18; O2SAT 100
[2024-12-20] MEDS: FUROsemide 10 mg/mL SDV 10mL 80 MG IVP (14:46)
[2024-12-20 14:49] VITALS: BP 145/80; PULSE 61; O2SAT 100
== END 2024-12-20 14:58 | disposition home or self-care (01) ==
PROVIDERS: Family Medicine; Emergency Provider Emergency Medicine; PCP Family Medicine
DX: R60.0 Localized edema (principal); Z79.82 Long term (current) use of aspirin; Z87.891 Personal history of nicotine dependence; E78.5 Hyperlipidemia, unspecified; E11.9 Type 2 diabetes mellitus without complications; J44.9 Chronic obstructive pulmonary disease, unspecified; Z85.46 Personal history of malignant neoplasm of prostate; Z85.850 Personal history of malignant neoplasm of thyroid; I25.10 Atherosclerotic heart disease of native coronary artery without angina pectoris
CPT/HCPCS: 36415; 71045; 80053; 83880; 85025; 93005; 96374; 99285; J1938

== ENCOUNTER → 2024-12-23 09:14 | Outpatient (BNVA) | payer OTHER, MEDICAID, SELFPAY | PROVIDERS: PCP Family Medicine; Visit Provider Family Medicine | DX: E83.39 Other disorders of phosphorus metabolism (principal); E83.42 Hypomagnesemia | CPT/HCPCS: 80048; 83735 ==

== ENCOUNTER 2025-01-04 11:00 | Oncology outpatient (recurring) (ONCR) | payer MEDICARE, MEDICAID, SELFPAY ==
[2024-12-29 10:31] LABS: Hematocrit 32.0 % (37-53); Hemoglobin 10.60 g/dL (11.27-16.99); Mean Corpuscular HGB Conc 33.1 g/dL (30-55); Mean Corpuscular Hemoglobin 31.5 pg (27-33); Mean Corpuscular Volume 95.2 fl (82-101); Nucleated Red Blood Cells % 0 %; Platelet Count 240 10^3/cmm (157-399); Red Blood Count 3.36 10^6/uL (3.85-5.65); White Blood Count 4.91 10^3/uL (3.29-11.43)
[2024-12-29 11:02] LABS: Alanine Aminotransferase 6 U/L (0-41); Albumin Level 3.6 g/dL (3.5-5.2); Alkaline Phosphatase 70 U/L (40-130); Anion Gap 20.1 (5-19); Aspartate Amino Transferase 10 U/L (0-40); Blood Urea Nitrogen 14 mg/dL (8-23); Calcium 9.1 mg/dL (8.5-10.5); Carbon Dioxide 23 mmol/L (22-29); Chloride 99 mmol/L (98-107); Globulin 3.8 g/dL (1.3-4.6); Glucose 120 mg/dL (65-115); Osmolality Calculated 290 mOsm/kg (285-295); Potassium 3.1 mmol/L (3.5-5.1); Prostate Specific Antigen 4.740 ng/mL (0-4); Sodium 139 mmol/L (136-145); Total Protein 7.4 g/dL (6.6-8.7)
[2024-12-29 11:48] VITALS: BP 118/81; PULSE 79; RESP 18; TEMP 36.9; O2SAT 98
[2024-12-29 13:13] VITALS: BP 120/65; PULSE 82; RESP 19; TEMP 36.6; O2SAT 99
[2025-01-04 10:53] LABS: Hematocrit 30.3 % (37-53); Hemoglobin 9.70 g/dL (11.27-16.99); Mean Corpuscular HGB Conc 32.0 g/dL (30-55); Mean Corpuscular Hemoglobin 30.8 pg (27-33); Mean Corpuscular Volume 96.2 fl (82-101); Nucleated Red Blood Cells % 0 %; Platelet Count 213 10^3/cmm (157-399); Red Blood Count 3.15 10^6/uL (3.85-5.65); White Blood Count 3.90 10^3/uL (3.29-11.43)
[2025-01-04 11:13] LABS: Alanine Aminotransferase < 5 U/L (0-41); Albumin Level 3.5 g/dL (3.5-5.2); Alkaline Phosphatase 71 U/L (40-130); Anion Gap 14.5 (5-19); Aspartate Amino Transferase 9 U/L (0-40); Blood Urea Nitrogen 10 mg/dL (8-23); Calcium 8.5 mg/dL (8.5-10.5); Carbon Dioxide 29 mmol/L (22-29); Chloride 97 mmol/L (98-107); Globulin 3.6 g/dL (1.3-4.6); Glucose 121 mg/dL (65-115); Osmolality Calculated 284 mOsm/kg (285-295); Potassium 3.5 mmol/L (3.5-5.1); Sodium 137 mmol/L (136-145); Total Protein 7.1 g/dL (6.6-8.7)
== END 2025-01-08 23:59 | disposition home or self-care (01) ==
PROVIDERS: Internal Medicine; PCP Family Medicine; Visit Provider Internal Medicine Medical Oncology
DX: C61 Malignant neoplasm of prostate; C79.51 Secondary malignant neoplasm of bone; Z53.9 Procedure and treatment not carried out, unspecified reason
CPT/HCPCS: 36415; 80053; 84153; 85025; 96360; 99214; J7030; J9999

== ENCOUNTER → 2025-01-12 11:42 | Outpatient (BNVA) | payer OTHER, MEDICAID, SELFPAY | PROVIDERS: PCP Family Medicine; Visit Provider Family Medicine | DX: E11.9 Type 2 diabetes mellitus without complications (principal) | CPT/HCPCS: 83036 ==

== ENCOUNTER → 2025-01-24 08:58 | Outpatient (BNVA) | payer MEDICARE, MEDICAID, SELFPAY | PROVIDERS: PCP Family Medicine; Visit Provider Podiatrist Foot & Ankle Surgery | DX: E11.49 Type 2 diabetes mellitus with other diabetic neurological complication (principal); L60.3 Nail dystrophy; L84 Corns and callosities; G62.89 Other specified polyneuropathies | CPT/HCPCS: 11056; 11721 ==

== ENCOUNTER 2025-01-26 09:17 | Oncology outpatient (recurring) (ONCR) | payer MEDICARE, MEDICAID, SELFPAY ==
[2025-01-26 09:36] LABS: Hematocrit 32.2 % (37-53); Hemoglobin 10.30 g/dL (11.27-16.99); Mean Corpuscular HGB Conc 32.0 g/dL (30-55); Mean Corpuscular Hemoglobin 31.1 pg (27-33); Mean Corpuscular Volume 97.3 fl (82-101); Nucleated Red Blood Cells % 0 %; Platelet Count 185 10^3/cmm (157-399); Red Blood Count 3.31 10^6/uL (3.85-5.65); White Blood Count 6.62 10^3/uL (3.29-11.43)
[2025-01-26 10:20] LABS: Alanine Aminotransferase < 5 U/L (0-41); Albumin Level 3.5 g/dL (3.5-5.2); Alkaline Phosphatase 63 U/L (40-130); Anion Gap 14.8 (5-19); Aspartate Amino Transferase 10 U/L (0-40); Blood Urea Nitrogen 14 mg/dL (8-23); Calcium 9.2 mg/dL (8.5-10.5); Carbon Dioxide 28 mmol/L (22-29); Chloride 98 mmol/L (98-107); Globulin 3.7 g/dL (1.3-4.6); Glucose 176 mg/dL (65-115); Osmolality Calculated 289 mOsm/kg (285-295); Potassium 3.8 mmol/L (3.5-5.1); Prostate Specific Antigen 2.990 ng/mL (0-4); Sodium 137 mmol/L (136-145); Total Protein 7.2 g/dL (6.6-8.7)
== END 2025-02-08 23:59 | disposition home or self-care (01) ==
LOC: ONCMED 09:18
PROVIDERS: Nurse Practitioner Family; PCP Family Medicine; Visit Provider Internal Medicine Medical Oncology
DX: C61 Malignant neoplasm of prostate (principal); C79.51 Secondary malignant neoplasm of bone; Z87.891 Personal history of nicotine dependence; Z90.79 Acquired absence of other genital organ(s); Z92.3 Personal history of irradiation; Z79.899 Other long term (current) drug therapy; R97.21 Rising PSA following treatment for malignant neoplasm of prostate; Z93.59 Other cystostomy status
CPT/HCPCS: 36415; 80053; 84153; 85025; 99213